=== PATIENT | male | born 1960 | race Caucasian/White ===

== ENCOUNTER → 2017-09-20 | Outpatient (CLI) | payer MEDICAID ==
--- NOTE | 2017-09-23 09:49 | EEG PRO FEE REPORT ---
EEG INTERPRETATION PATIENT NAME: SHAHRZAD JAIN ROOM#: ORDER#: [id number] DATE OF STUDY: 09/20/2017 : 1960 REFERRING MD: DENIS PARIS M.D. DIAGNOSIS: Convulsions REPORT The background activity initially is obscured by a large amount of motion artifact that is in all leads. As the record progresses the patient becomes more drowsy and it gets down to 6-7 Hz theta. Again there is still excessive motion artifact at times. No definite epileptiform activity is noted on the video portion of the tracing and no clear further focal slowing or amplitude asymmetry is seen. IMPRESSION Normal awake and drowsy EEG with excess motion artifact INTERPRETING PHYSICIAN: DARLENE VILLANUEVA M.D. /: MTEFFT TT: [id number] ID: [id number] /: [id number] TD: [id number] JOB: [id number] cc:Guille LEVY M.D. >
== END ==
LOC: NEURO 11:53
PROVIDERS: ATTEND Nurse Practitioner Family
DX: R56.9 Unspecified convulsions (principal)
CPT/HCPCS: 95819

== ENCOUNTER → 2019-04-07 | Outpatient (CLI) | payer MEDICAID ==
--- NOTE | 2019-04-07 13:16 | RADIOLOGY REPORT (SQ) ---
EXAM DESCRIPTION: CT LUNG CANCER SCREENING COMPLETED DATE/TIME: 04/07/2019 12:28 pm REASON FOR STUDY: PERSONAL HX OF NICOTINE DEPENDENCE (Z87.891) Z87.891 PERSONAL HISTORY OF NICOTINE DEPENDENCE Has the patient had a Chest CT scan within the past year? No Was the patient offered tobacco cessation counseling? No Was the patient engaged in shared decision making for this test? Yes Does the patient have signs or symptoms of Lung Cancer? No Is the patient a smoker? No How many pack years? 48 How many years since quitting smoking? Not have focal Patients age: 58 COMPARISON: CT chest 06/30/2013, 08/30/2012, 09/29/2010 TECHNIQUE: Low Dose CT scan performed of the chest without intravenous contrast for purposes of scre ening for lung cancer. Images reviewed with lung, soft tissue and bone windows. Reconstructed coron al and sagittal MPR images reviewed. All images stored on PACS. All CT scanners at this facility use dose modulation, iterative reconstruction, and/or weight based d osing when appropriate to reduce radiation dose to as low as reasonably achievable (ALARA). [facility]: Dose Right [facility]: CareDose [facility]: Dose Right [facility]: Teradose 4D [facility]: [employer] RADIATION DOSE: CT Rad equipment meets quality standard of care and radiation dose reduction techniq ues were employed. CTDIvol: 2.0 mGy. DLP: 79 mGy-cm. mGy. . LIMITATIONS: No technical limitations. FINDINGS: LUNG NODULES: The numerous to count calcified granulomata scattered throughout both lungs . No worrisome lung parenchymal nodules REMAINING LUNGS AND PLEURA: No pleural effusions or calcifications. No pneumothorax. No scarrin g or interstitial changes. HILAR AND MEDIASTINAL STRUCTURES: No identified masses. No abnormal nodes. HEART AND VASCULAR STRUCTURES: No aortic aneurysm. No pericardial effusion. No cardiac devices. CORONARY ARTERY CALCIFICATIONS: No significant calcifications. UPPER ABDOMEN, THYROID, BONES, OTHER SOFT TISSUES: Hiatal hernia. IMPRESSION: BENIGN FINDINGS IN THE LUNGS. NO OTHER CLINICALLY SIGNIFICANT/POTENTIALLY CLINICALLY SIGNIFICANT FINDINGS LUNGRADS: LUNGRADS: 2 BENIGN APPEARANCE OR BEHAVIOR. NODULES WITH A VERY LOW LIKELIHOOD OF BECOMING A CLINICALLY ACTIVE CANCER DUE TO SIZE OR LACK OF GROWTH. MODIFIER: NONE. RECOMMENDATION: Continue annual screening with LDCT in 12 months. COMMENT: CRITERIA: Solid nodule(s): < 6 mm; new < 4 mm. Part solid nodule(s): < 6 mm total diameter on baseline screening. Non solid nodule(s) (GGN): < 20 mm OR ? 20 and unchanged or slowly growing. Category 3 or 4 modules unchanged for ? 3 months. TECHNICAL DOCUMENTATION: JOB ID: [id number] Quality ID # [id number]: Final reports with documentation of one or more dose reduction techniques (e.g., Au tomated exposure control, adjustment of the mA and/or kV according to patient size, use of iterative reconstruction technique) 2010 [facility] Reading location - IP/workstation name: [email or web address]-
== END ==
LOC: RAD 12:07
PROVIDERS: ATTEND Physician Assistant Medical
DX: Z87.891 Personal history of nicotine dependence (principal)
CPT/HCPCS: G0297

== ENCOUNTER 2019-04-21 11:33 | Inpatient (IN) | payer MEDICAID ==
--- NOTE | 2019-04-21 12:10 | ER Document Report ---
ED Medical Screen (RME) - General Chief Complaint: High Blood Pressure Stated Complaint: DIZZINESS,ELEVATED BLOOD PRESSURE Time Seen by Provider: 04/21/19 12:03 Primary Care Provider: RAS MURRY PA-C [Primary Care Provider] - Follow up as needed Mode of Arrival: Ambulatory Information source: Patient Notes: Patient was sent to the emergency room from the dentist office due to elevated blood pressure. He states he has been extremely weak and dizzy. Blood pressure in the emergency room was 169/113. He is not sure the name of the blood pressure medicine he is on but it sounds like Roussell I asked he was on lisinopril and he said he is not sure. He has a history of high blood pressure gastric ulcers the "blown ulcer". Patient is alert oriented respirations regular and unlabored speaking in full sentences. He states he had the ulcer because of drinking too heavy now he only drinks 3 or 4 beer a week. I have greeted and performed a rapid initial assessment of this patient. A comprehensive ED assessment and evaluation of the patient, analysis of test results and completion of medical decision making process will be conducted by an additional ED providers. Dictation of this chart was performed using voice recognition software; therefore, there may be some unintended grammatical errors. TRAVEL OUTSIDE OF THE [place] 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 Denies: Hx Pacemaker - Immunizations Immunizations up to date: Yes Hx Diphtheria, Pertussis, Tetanus Vaccination: Yes Physical Exam - Vital signs Vitals: Temp Pulse Resp BP Pulse Ox 97.5 F 78 18 169/113 H 96 04/21/19 11:43 04/21/19 11:43 04/21/19 11:43 04/21/19 11:43 04/21/19 11:43 Course - Vital Signs Vital signs: Temp Pulse Resp BP Pulse Ox 97.5 F 78 18 174/107 H 96 04/21/19 11:43 04/21/19 11:43 04/21/19 11:43 04/21/19 12:06 04/21/19 11:43 Doctor's Discharge - Discharge Referrals: RAS MURRY PA-C [Primary Care Provider] - Follow up as needed
[2019-04-21 12:34] LABS: APPEARANCE,URINE CLEAR; BILIRUBIN,URINE NEGATIVE (NEGATIVE); COLOR,URINE STRAW; GLUCOSE, URINE NEGATIVE (NEGATIVE); KETONES,URINE NEGATIVE (NEGATIVE); LEUKOCYTE ESTERASE,URINE NEGATIVE (NEGATIVE); NITRITE,URINE NEGATIVE (NEGATIVE); PROTEIN,URINE NEGATIVE (NEGATIVE); URINE SPECIFIC GRAVITY 1.003; UROBILINOGEN,URINE NEGATIVE mg/dL (<2.0)
[2019-04-21 12:38] LABS: ABSOLUTE BASOPHILS # (AUTO) 0.1 10^3/uL (0.0-0.2); ABSOLUTE EOSINOPHILS # (AUTO) 0.1 10^3/uL (0.0-0.6); ABSOLUTE LYMPHOCYTES (AUTO) 0.6 10^3/uL (0.5-4.7); ABSOLUTE MONOCYTES (AUTO) 0.4 10^3/uL (0.1-1.4); ABSOLUTE NEUT (AUTO) 8.5 10^3/uL (1.7-8.2); BASOPHILS % (AUTO) 1.1 % (0-2); EOSINOPHILS % (AUTO) 0.7 % (0-6); HEMATOCRIT 48.1 % (37.9-51.0); HEMOGLOBIN 15.9 g/dL (13.5-17.0); LYMPHOCYTES % (AUTO) 6.6 % (13-45); MEAN CORPUSCULAR HEMOGLOBIN 30.4 pg (27.0-33.4); MEAN CORPUSCULAR HGB CONC 33.1 g/dL (32.0-36.0); MEAN CORPUSCULAR VOLUME 92 fl (80-97); MONOCYTES % (AUTO) 3.9 % (3-13); PLATELET COUNT 468 10^3/uL (150-450); RED BLOOD COUNT 5.24 10^6/uL (4.35-5.55); RED CELL DISTRIBUTION WIDTH 16.5 % (11.5-14.0); SEGMENTED NEUTROPHILS % (AUTO) 87.7 % (42-78); TOTAL CELLS COUNTED % (AUTO) 100 %; WHITE BLOOD COUNT 9.7 10^3/uL (4.0-10.5)
[2019-04-21 13:02] LABS: ALANINE AMINOTRANSFERASE 36 U/L (21-72); ALBUMIN 4.6 g/dL (3.5-5.0); ALKALINE PHOSPHATASE 88 U/L (38-126); ANION GAP 13 (5-19); ASPARTATE AMINO TRANSFERASE 33 U/L (17-59); BILIRUBIN,DIRECT 0.6 mg/dL (0.0-0.4); BLOOD UREA NITROGEN 20 mg/dL (7-20); CALCIUM 9.8 mg/dL (8.4-10.2); CARBON DIOXIDE 22 mmol/L (22-30); CHLORIDE 105 mmol/L (98-107); GLUCOSE 92 mg/dL (75-110); LIPASE 57.7 U/L (23-300); POTASSIUM 5.1 mmol/L (3.6-5.0); TOTAL PROTEIN 7.3 g/dL (6.3-8.2)
[2019-04-21] MEDS ORDERED: AMLODIPINE BESYLATE 5 MG TABLET PO ONE (14:34)
[2019-04-21] MEDS ORDERED: NORMAL SALINE 1000 ML 1,000 ML IV ONE (14:34)
--- NOTE | 2019-04-21 15:41 | RADIOLOGY REPORT (SQ) ---
EXAM DESCRIPTION: CHEST 2 VIEWS COMPLETED DATE/TIME: 04/21/2019 3:23 pm REASON FOR STUDY: 7; cough; h/o COPD COMPARISON: CT chest 06/30/2013 Two-view chest 06/30/2013, 09/03/2012 EXAM PARAMETERS: NUMBER OF VIEWS: two views TECHNIQUE: Digital Frontal and Lateral radiographic views of the chest acquired. RADIATION DOSE: NA LIMITATIONS: none FINDINGS: LUNGS AND PLEURA: Mild pulmonary vascular prominence is present trace fluid in the major a nd minor fissures and Nadira lines at both lung bases from mild fluid overload or interstitial edema. No pneumothorax. MEDIASTINUM AND HILAR STRUCTURES: No masses or contour abnormalities. HEART AND VASCULAR STRUCTURES: No cardiomegaly BONES: No acute findings. HARDWARE: None in the chest. OTHER: No other significant finding. IMPRESSION: Pulmonary vascular congestion with mild interstitial edema and trace pleural fluid. TECHNICAL DOCUMENTATION: JOB ID: [id number] [employer]- All Rights Reserved Reading location - IP/workstation name: [email or web address]
--- NOTE | 2019-04-21 15:46 | ER Document Report ---
ED General - General Chief Complaint: High Blood Pressure Stated Complaint: DIZZINESS,ELEVATED BLOOD PRESSURE Time Seen by Provider: 04/21/19 12:03 Primary Care Provider: RAS MURRY PA-C [ALLIED HEALTH PROFESSIONAL] - Follow up as needed Mode of Arrival: Ambulatory Information source: Patient Notes: 58-year-old male who presents today with a past medical history as recorded who presents today from the dentist office after the patient supposedly had a high blood pressure. Patient states he is on lisinopril for his blood pressure and has been taking it regularly over the last 3 to 4 days. He states he has missed his blood pressure medications intimately before this. He currently denies any headache but states he had a very mild frontal headache 2 days ago. He denies any blurry vision, chest pain, calf pain or leg swelling. He states he which is having a general dental cleaning today and was not having any dental pain. Patient does have a primary care physician. Patient also states is a history of COPD and has had a mild increased cough lately. He denies any chest pain, leg swelling, fevers, or vomiting. No runny nose or congestion. TRAVEL OUTSIDE OF THE [place] IN LAST 30 DAYS: No - Related Data Allergies/Adverse Reactions: metoprolol tartrate [From Lopressor] Adverse Reaction (Verified 04/21/19 11:39) Generalized rash Past Medical History - General Information source: Patient - Social History Smoking Status: Former Smoker Chew tobacco use (# tins/day): No Frequency of alcohol use: Rare Drug Abuse: None Family History: Reviewed & Not Pertinent Patient has suicidal ideation: No Patient has homicidal ideation: No - Past Medical History Cardiac Medical History: Reports: Hx Hypertension Pulmonary Medical History: Denies: Hx Tuberculosis Neurological Medical History: Reports: Hx Seizures - LAST 5 YR AGO Renal/ Medical History: Denies: Hx Peritoneal Dialysis GI Medical History: Reports: Hx Ulcer Musculoskeletal Medical History: 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 Denies: Hx Pacemaker - Immunizations Immunizations up to date: Yes Hx Diphtheria, Pertussis, Tetanus Vaccination: Yes Review of Systems - Review of Systems Constitutional: denies: Fever EENT: denies: Eye discharge, Nose discharge Cardiovascular: denies: Chest pain, Palpitations Respiratory: denies: Short of breath Gastrointestinal: denies: Vomiting Genitourinary: denies: Dysuria Musculoskeletal: denies: Leg swelling Skin: Other - no hives. denies: Rash Neurological/Psychological: Other - no slurred speech -: Yes All other systems reviewed and negative Physical Exam - Vital signs Vitals: Temp Pulse Resp BP Pulse Ox 97.5 F 78 18 169/113 H 96 04/21/19 11:43 04/21/19 11:43 04/21/19 11:43 04/21/19 11:43 04/21/19 11:43 Interpretation: Normal Notes: Reviewed vital signs and nursing note as charted by RN. CONSTITUTIONAL: Alert and oriented and responds appropriately to questions. Well-appearing; well-nourished HEAD: Normocephalic; atraumatic CARD: Regular rate and rhythm; no murmurs; symmetric distal pulses RESP: Normal chest excursion without splinting or tachypnea; breath sounds clear and equal bilaterally; very minimally scant wheezing bilaterally without rhonchi or rales appreciated ABD/GI: Normal bowel sounds; non-distended; soft, non-tender; no palpable organomegaly or masses BACK: The back appears normal and is non-tender to palpation EXT: Normal ROM in all joints; non-tender to palpation; no edema SKIN: No acute lesions noted NEURO: CN 2-12 intact; 5/5 bilateral upper and lower extremity strength with sensation intact to light touch PSYCH: The patient's mood and manner are appropriate. Grooming and personal hygiene are appropriate. Course - Re-evaluation Re-evalutation: Given the history and physical examination, we will order basic labs, creatinine level, provide a one-time dose of Norvasc, and obtain an x-ray of the chest. Given the lack of any chest pain, calf pain or leg swelling, I do believe ACS, PE, dissection to be unlikely. EKG shows a heart rate of 74, left axis deviation, poor R wave progression, inverted T waves in leads V2 and III. Flattening T waves in aVF. I have compared this to an old EKG in August 2014 showing no obvious appreciable change. 04/21/19 15:48 Labs thus far as recorded. X-ray of the chest as recorded. Does appear that the patient has some increased lung markings. We will obtain a BNP and troponin. Patient still denies any chest pain or headache. 04/21/19 16:43 BNP as recorded. Given the combination of an elevated blood pressure with what appears to now be heart failure, patient will be admitted for further evaluation and treatment. 04/21/19 16:53 Repeat blood pressure still 180/110. Patient denies any symptoms at this time. However, given the combination of elevated blood pressure with new onset co ngestive heart failure, I am concerned about hypertensive emergency. I will provide an IV bolus dose of hydralazine. I have discussed the case with the hospitalist who will admit the patient for further evaluation. - Vital Signs Vital signs: Temp Pulse Resp BP Pulse Ox 97.5 F 78 16 172/105 H 98 04/21/19 11:43 04/21/19 11:43 04/21/19 13:31 04/21/19 13:31 04/21/19 13:31 - Laboratory Result Diagrams: 04/21/19 12:25 04/21/19 12:25 Laboratory results interpreted by me: 04/21/19 04/21/19 04/21/19 12:25 12:25 12:25 RDW 16.5 H Plt Count 468 H Seg Neutrophils % 87.7 H Lymphocytes % 6.6 L Absolute Neutrophils 8.5 H Potassium 5.1 H Creatinine 1.53 H Est GFR ( Amer) 57 L Est GFR (Non-Af Amer) 47 L Direct Bilirubin 0.6 H NT-Pro-B Natriuret Pep 4590 H Discharge - Discharge Clinical Impression: Hypertensive emergency without congestive heart failure Condition: Fair Disposition: ADMITTED INPATIENT Admitting Provider: Dana (Hospitalist) Unit Admitted: Telemetry Referrals: RAS MURRY PA-C [ALLIED HEALTH PROFESSIONAL] - Follow up as needed
[2019-04-21 16:39] LABS: NT PRO BNP 4590 pg/mL (5-900)
[2019-04-21 16:42] LABS: TROPONIN I < 0.012 ng/mL
[2019-04-21] MEDS ORDERED: FUROSEMIDE INJ/PF 40 MG/4 ML SDV IV ONE (16:47)
[2019-04-21] MEDS ORDERED: HYDRALAZINE HCL INJ/PF 20 MG/1 ML SDV IV ONE (16:53)
[2019-04-21] MEDS ORDERED: IPRATROPIUM/ALBUTEROL 0.5-2.5 MG/3 ML AMPUL NEB PRN (17:20)
[2019-04-21] MEDS ORDERED: ACETAMINOPHEN 325 MG TABLET PO PRN (17:20)
[2019-04-21] MEDS ORDERED: ONDANSETRON HCL INJ/PF 4 MG/2 ML SDV IV PRN (17:20)
[2019-04-21] MEDS ORDERED: HYDRALAZINE HCL INJ/PF 20 MG/1 ML SDV IV PRN (17:24)
[2019-04-21] MEDS ORDERED: OXYCODONE-ACETAMINOPHEN 5-325 MG TABLET PO PRN (17:27)
--- NOTE | 2019-04-21 18:00 | PDOC H&P ---
History of Present Illness Admission Date/PCP: 04/21/19 17:10 Patient complains of: Shortness of breath associated with dizziness. History of Present Illness: SHAHRZAD JAIN is a 58 year old male with history of COPD, hypertension, osteoarthritis, left hip replacement came with complaints of high blood pressure associated with dizziness and shortness of breath. He went to the dentist office found to be in shortness of breath and blood pressure was elevated he complained to them that he is in shortness of breath advised to come to the ER for further evaluation. The work-up in the emergency room shows cardiomegaly and pulmonary vascular congestion on chest x-ray with elevated BNP of 4490. Blood pressure was elevated also systolic blood pressure 72 and diastolic blood pressure is 105. In the ER he was given Lasix 40 mg IV 1 dose hydralazine 10 mg IV 1 push. Medical consult was called for admission for further management. On examination patient is in mild shortness of breath and alert and awake communicating well. He told me he is compliant with his medications I quit smoking 4 years ago having the shortness of breath associated with headaches mild cough with dry cough denies any other symptoms. denies any chest pains. Past Medical History Cardiac Medical History: Reports: Hypertension Pulmonary Medical History: Denies: Tuberculosis Neurological Medical History: Reports: Seizures - LAST 5 YR AGO Past Surgical History Past Surgical History: Reports: Orthopedic Surgery - hip, arm Denies: Pacemaker Social History Information Source: Patient Smoking Status: Former Smoker Frequency of Alcohol Use: Rare Hx Recreational Drug Use: No Hx Prescription Drug Abuse: No - Advance Directive Resuscitation Status: Full Code Family History Family History: Reviewed & Not Pertinent Parental Family History Reviewed: Yes - Hypertension. Children Family History Reviewed: Yes Sibling(s) Family History Reviewed.: Yes Medication/Allergy Allergies/Adverse Reactions: metoprolol tartrate [From Lopressor] Adverse Reaction (Verified 04/21/19 11:39) Generalized rash Review of Systems Constitutional: PRESENT: headache(s). ABSENT: fever(s), weight gain, weight loss Eyes: ABSENT: visual disturbances Ears: ABSENT: hearing changes Nose, Mouth, and Throat: ABSENT: sore throat Cardiovascular: PRESENT: dyspnea on exertion Respiratory: PRESENT: cough, dyspnea Gastrointestinal: PRESENT: nausea Neurological: PRESENT: dizziness. ABSENT: abnormal gait, abnormal speech, confusion, focal weakness, syncope Psychiatric: ABSENT: anxiety, depression, homidical ideation, suicidal ideation Hematologic/Lymphatic: ABSENT: easy bleeding, easy bruising Physical Exam Vital Signs: Temp Pulse Resp BP Pulse Ox 97.5 F 78 16 172/105 H 98 04/21/19 11:43 04/21/19 11:43 04/21/19 13:31 04/21/19 13:31 04/21/19 13:31 Intake & Output 04/20/19 04/21/19 04/22/19 06:59 06:59 06:59 Weight 54.6 kg General appearance: PRESENT: no acute distress, cooperative Head exam: PRESENT: atraumatic Eye exam: PRESENT: PERRLA Mouth exam: PRESENT: moist, tongue midline Teeth exam: PRESENT: poor dentation Neck exam: ABSENT: carotid bruit, JVD, lymphadenopathy, thyromegaly Respiratory exam: PRESENT: crackles, decreased breath sounds, rhonchi Cardiovascular exam: PRESENT: RRR. ABSENT: diastolic murmur, rubs, systolic murmur GI/Abdominal exam: PRESENT: normal bowel sounds, soft. ABSENT: distended, guarding, mass, organolmegaly, rebound, tenderness Rectal exam: PRESENT: deferred Extremities exam: PRESENT: full ROM. ABSENT: calf tenderness, clubbing, pedal edema Neurological exam: PRESENT: alert, awake, oriented to person, oriented to place, oriented to time, oriented to situation, CN II-XII grossly intact. ABSENT: motor sensory deficit Psychiatric exam: PRESENT: appropriate affect, normal mood. ABSENT: homicidal ideation, suicidal ideation Results Laboratory Results: 04/21/19 12:25 04/21/19 12:25 04/21/19 04/21/19 04/21/19 12:16 12:25 12:25 WBC 9.7 RBC 5.24 Hgb 15.9 Hct 48.1 MCV 92 MCH 30.4 MCHC 33.1 RDW 16.5 H Plt Count 468 H Seg Neutrophils % 87.7 H Lymphocytes % 6.6 L Monocytes % 3.9 Eosinophils % 0.7 Basophils % 1.1 Absolute Neutrophils 8.5 H Absolute Lymphocytes 0.6 Absolute Monocytes 0.4 Absolute Eosinophils 0.1 Absolute Basophils 0.1 Sodium 140.0 Potassium 5.1 H Chloride 105 Carbon Dioxide 22 Anion Gap 13 BUN 20 Creatinine 1.53 H Est GFR ( Amer) 57 L Est GFR (Non-Af Amer) 47 L Glucose 92 Calcium 9.8 Total Bilirubin 1.0 AST 33 ALT 36 Alkaline Phosphatase 88 Total Protein 7.3 Albumin 4.6 Lipase 57.7 Urine Color STRAW Urine Appearance CLEAR Urine pH 7.0 Ur Specific [place] 1.003 Urine Protein NEGATIVE Urine Glucose (UA) NEGATIVE Urine Ketones NEGATIVE Urine Blood NEGATIVE Urine Nitrite NEGATIVE Ur Leukocyte Esterase NEGATIVE Urine WBC (Auto) 1 04/21/19 12:25 Troponin I < 0.012 NT-Pro-B Natriuret Pep 4590 H Impressions: Chest X-Ray 04/21/19 14:35 IMPRESSION: Pulmonary vascular congestion with mild interstitial edema and trace pleural fluid. Assessment and Plan - Diagnosis (1) Hypertensive emergency without congestive heart failure Is this a current diagnosis for this admission?: Yes Plan: 04/21/[id number]-hgvk-old male came in with blood pressures of 172/105 and the chest x-ray shows cardiomegaly with pulmonary vascular congestion he is complaining of shortness of breath is going to be admitted as inpatient started on lisinopril 10 mg p.o. daily, hydralazine 10 mg IV every 4 as needed for systolic blood pressure more than 150. GI prophylaxis DVT prophylaxis initiated. Started on Lasix 40 mg IV daily. Start on aspirin 81 mg p.o. daily and atorvastatin 10 mg p.o. nightly. Placed on oxygen 2 L nasal cannula to keep the pulse ox more than 90%. Cardiogram was requested. Cardiac enzymes series is requested. to Check the lipid panel tomorrow. TSH will is requested in the morning. Started on low-sodium diet. (2) HTN (hypertension) Is this a current diagnosis for this admission?: Yes Plan: 04/21/2019-patient came with blood pressure of 172/105 started on lisinopril 10 mg p.o. daily, Lasix 40 mg IV daily, IV hydralazine 10 mg every 4 PRN for systolic blood pressure more than 150. Started on low-sodium diet. to Check blood pressures every shift. (3) COPD (chronic obstructive pulmonary disease) Is this a current diagnosis for this admission?: No Plan: 04/21/2019-patient came in with history of COPD in mild shortness of breath on examination bilateral entry was decreased few crackles and crepitations at the bases. No wheezing. Placed on oxygen 2 L nasal cannula. Started on albuterol nebulizations every 4 as needed. (4) Seizure disorder Is this a current diagnosis for this admission?: No Plan: 04/21/2019-patient is nonspecific about seizure disorder he is not sure about his medications. To start him on Ativan 1 mg IV every 2 as needed for possible seizures. We will try to get in touch with the pharmacy and the primary care physician to get more information. - Time Time Spent with patient: 25-34 minutes Medications reviewed and adjusted accordingly: Yes Anticipated discharge: Home
[2019-04-21] MEDS ORDERED: LORAZEPAM INJ 2 MG/1 ML VIAL IV PRN (18:01)
--- NOTE | 2019-04-21 18:37 | EKG REPORT ---
SEVERITY:- ABNORMAL ECG - SINUS RHYTHM PROBABLE LEFT ATRIAL ABNORMALITY LEFT AXIS DEVIATION NONSPECIFIC T ABNORMALITIES, INFERIOR LEADS BORDERLINE PROLONGED QT INTERVAL : Confirmed by: Gianna Michaud MD 21-Apr-2019 18:36:30
[2019-04-21] MEDS: ASPIRIN 81 MG TABLET, CHEWABLE PO SCH (19:05)
[2019-04-21] MEDS: DOCUSATE SODIUM 100 MG CAPSULE PO SCH (19:05)
[2019-04-21] MEDS: LISINOPRIL 10 MG TABLET PO SCH (19:05)
--- NOTE | 2019-04-21 19:22 | RADIOLOGY REPORT (SQ) ---
EXAM DESCRIPTION: CT CHEST WITHOUT COMPLETED DATE/TIME: 04/21/2019 6:31 pm REASON FOR STUDY: chf COMPARISON: 06/30/2013 TECHNIQUE: CT scan performed of the chest without intravenous contrast. Images reviewed with lung, soft tissue and bone windows. Reconstructed coronal and sagittal MPR images reviewed. All images st ored on PACS. All CT scanners at this facility use dose modulation, iterative reconstruction, and/or weight based d osing when appropriate to reduce radiation dose to as low as reasonably achievable (ALARA). [facility]: Dose Right [facility]: CareDose [facility]: Dose Right [facility]: Teradose 4D [facility]: [employer] RADIATION DOSE: CT Rad equipment meets quality standard of care and radiation dose reduction techniq ues were employed. CTDIvol: 5.3 mGy. DLP: 220 mGy-cm. mGy. LIMITATIONS: No technical limitations. FINDINGS: LUNGS AND PLEURA: There is mild pulmonary vascular prominence. There is no pulmonary lucina a. There is no focal infiltrate or pleural effusion. HILAR AND MEDIASTINAL STRUCTURES: There is mild mediastinal and right hilar adenopathy. HEART AND VASCULAR STRUCTURES: No aneurysm. No pericardial effusion. UPPER ABDOMEN: No significant findings. Limited exam. THYROID AND OTHER SOFT TISSUES: No masses. No adenopathy. BONES: No significant finding. HARDWARE: None in the chest. OTHER: No other significant findings. IMPRESSION: Mild mediastinal and hilar adenopathy. Mild pulmonary vascular prominence. No pulmonar y edema. TECHNICAL DOCUMENTATION: JOB ID: [id number] Quality ID # [id number]: Final reports with documentation of one or more dose reduction techniques (e.g., Au tomated exposure control, adjustment of the mA and/or kV according to patient size, use of iterative reconstruction technique) 2010 [employer]- All Rights Reserved Reading location - IP/workstation name: [email or web address]
[2019-04-21 19:29] LABS: CREATINE KINASE MB 1.75 ng/mL (<4.55)
[2019-04-21 19:35] LABS: TROPONIN I < 0.012 ng/mL
--- NOTE | 2019-04-21 20:40 | XCELERA REPORT ---
[address] [address] Transthoracic Echocardiogram Report Name: SHAHRZAD JAIN Age: 58 yrs Gender: Male : 1960 Patient Status: Inpatient Patient Location: [place] [address]^A Study Date: 04/21/2019 05:47 PM Height: 64 in Weight: 120 lb BSA: 1.6 m2 Procedure: A two-dimensional transthoracic echocardiogram with color flow and Doppler was performed. Study Quality: Technically suboptimal. Reason For Study: CHF /Elevated BNP History: CHF /Elevated BNP. Ordering Physician: NILAY GERMAN Performed By: Jodie Barros Interpretation Summary No and probably no AR.Trace MR , and no MVP r MS.Trace TR.Mid pulmonary hypertension.RVSP is 35 mm of Hg , with RA mean of 10. The left ventricle is grossly normal size. Probably no LVH.Poor endocardial visualisation.Probably no regional wall motion abnormality ,but cannot be sure.Probably normal LVEF. There is no thrombus. The right ventricle is not well visualized secondary to technical limitations The left atrial size is normal. No and probably no AR.Trace MR , and no MVP r MS.Trace TR.Mid pulmonary hypertension.RVSP is 35 mm of Hg , with RA mean of 10. There is no pericardial effusion. MMode/2D Measurements & Calculations RVDd: 2.4 cm LVIDd: 3.6 cm FS: 26.6 % Ao root diam: 2.3 cm IVSd: 0.72 cm LVIDs: 2.7 cm EDV(Teich): 55.6 ml Ao root area: 4.1 cm2 LVPWd: 0.76 cm ESV(Teich): 26.2 ml LA dimension: 2.7 cm EF(Teich): 52.9 % Doppler Measurements & Calculations MV P1/2t max julián: Ao V2 max: LV V1 max PG: PA V2 max: 238.0 cm/sec 131.2 cm/sec 3.7 mmHg 107.5 cm/sec MV P1/2t: 694.7 msec Ao max P.9 mmHg LV V1 max: PA max PG: MVA(P1/2t): 0.32 cm2 95.6 cm/sec 4.6 mmHg MV dec slope: 100.4 cm/sec2 TR max julián: MV P1/2t-pr_phl: 256.5 cm/sec 694.7 msec TR max P.3 mmHg Left Ventricle The left ventricle is grossly normal size. Probably no LVH.Poor endocardial visualisation.Probably no regional wall motion abnormality ,but cannot be sure.Probably normal LVEF. Doppler measurements suggest impaired left ventricular relaxation, which is associated with grade I/IV or mild diastolic dysfunction. There is no thrombus. Right Ventricle The right ventricle is not well visualized secondary to technical limitations. Atria Right atrium not well visualized secondary to technical limitations. The left atrial size is normal. Effusions There is no pericardial effusion. : NILAY GERMAN > Gianna Michaud
[2019-04-21] MEDS: FAMOTIDINE 20 MG TABLET PO SCH (21:08)
[2019-04-21] MEDS ORDERED: ATORVASTATIN CALCIUM 10 MG TABLET PO SCH (22:00)
[2019-04-22 01:40] LABS: CREATINE KINASE MB 1.55 ng/mL (<4.55)
[2019-04-22 01:47] LABS: TROPONIN I < 0.012 ng/mL
[2019-04-22 07:29] LABS: ABSOLUTE BASOPHILS # (AUTO) 0.1 10^3/uL (0.0-0.2); ABSOLUTE EOSINOPHILS # (AUTO) 0.2 10^3/uL (0.0-0.6); ABSOLUTE LYMPHOCYTES (AUTO) 0.8 10^3/uL (0.5-4.7); ABSOLUTE MONOCYTES (AUTO) 0.4 10^3/uL (0.1-1.4); ABSOLUTE NEUT (AUTO) 7.6 10^3/uL (1.7-8.2); BASOPHILS % (AUTO) 1.1 % (0-2); EOSINOPHILS % (AUTO) 2.3 % (0-6); HEMATOCRIT 49.9 % (37.9-51.0); HEMOGLOBIN 16.8 g/dL (13.5-17.0); LYMPHOCYTES % (AUTO) 8.5 % (13-45); MEAN CORPUSCULAR HEMOGLOBIN 30.7 pg (27.0-33.4); MEAN CORPUSCULAR HGB CONC 33.7 g/dL (32.0-36.0); MEAN CORPUSCULAR VOLUME 91 fl (80-97); MONOCYTES % (AUTO) 4.4 % (3-13); PLATELET COUNT 475 10^3/uL (150-450); RED BLOOD COUNT 5.48 10^6/uL (4.35-5.55); RED CELL DISTRIBUTION WIDTH 16.2 % (11.5-14.0); SEGMENTED NEUTROPHILS % (AUTO) 83.7 % (42-78); TOTAL CELLS COUNTED % (AUTO) 100 %
[2019-04-22 07:30] LABS: INTERNATIONAL RATION (INR) 1.06; PROTHROMBIN TIME 14.4 SEC (11.4-15.4)
[2019-04-22] MEDS ORDERED: ALBUTEROL SULFATE HFA (90 MCG/PUFF) 200 PUFF/8.5 GM MDI IH PRN (08:04)
[2019-04-22 08:31] LABS: ALANINE AMINOTRANSFERASE 37 U/L (21-72); ALBUMIN 4.8 g/dL (3.5-5.0); ANION GAP 14 (5-19); ASPARTATE AMINO TRANSFERASE 27 U/L (17-59); BILIRUBIN,DIRECT 0.4 mg/dL (0.0-0.4); BILIRUBIN,TOTAL 1.2 mg/dL (0.2-1.3); BLOOD UREA NITROGEN 19 mg/dL (7-20); CALCIUM 10.3 mg/dL (8.4-10.2); CARBON DIOXIDE 20 mmol/L (22-30); CHLORIDE 104 mmol/L (98-107); CHOLESTEROL 220.76 mg/dL (0-200); CREATINE KINASE 46 U/L (55-170); GLUCOSE 174 mg/dL (75-110); NEONATAL BILIRUBIN RESULT 0.8 mg/dL (0.1-1.1); POTASSIUM 4.3 mmol/L (3.6-5.0); SODIUM 138.4 mmol/L (137-145); TOTAL PROTEIN 7.5 g/dL (6.3-8.2); TRIGLYCERIDES 67 mg/dL (<150)
[2019-04-22 08:32] LABS: ALKALINE PHOSPHATASE 80 U/L (38-126)
[2019-04-22 08:42] LABS: DIRECT LDL 134 mg/dL (<100)
[2019-04-22 08:49] LABS: CREATINE KINASE MB 1.38 ng/mL (<4.55); NT PRO BNP 3240 pg/mL (5-900)
[2019-04-22 08:50] LABS: TROPONIN I < 0.012 ng/mL
[2019-04-22] MEDS: FAMOTIDINE 20 MG TABLET PO SCH (09:15)
[2019-04-22] MEDS: ASPIRIN 81 MG TABLET, CHEWABLE PO SCH (09:15)
[2019-04-22] MEDS: DOCUSATE SODIUM 100 MG CAPSULE PO SCH (09:15)
[2019-04-22] MEDS: LISINOPRIL 10 MG TABLET PO SCH (09:16)
[2019-04-22] MEDS ORDERED: ENOXAPARIN SODIUM INJ 40 MG/0.4 ML DISP.SYRIN SUBCUT SCH (10:00)
[2019-04-22] MEDS ORDERED: FUROSEMIDE INJ/PF 40 MG/4 ML SDV IV SCH (10:00)
[2019-04-22 10:37] VITALS: BP 147/89
--- NOTE | 2019-04-22 13:06 | PDOC DISCHARGE SUMMARY ---
General - Admit/Disc Date/PCP Admission Date/Primary Care Provider: 04/21/19 17:10 Discharge Date: 04/22/19 - Discharge Diagnosis (1) Hypertensive emergency without congestive heart failure Is this a current diagnosis for this admission?: Yes Summary: 58-year-old male came in with blood pressures of 172/105 and the chest x-ray shows cardiomegaly with pulmonary vascular congestion he is complaining of shortness of breath is going to be admitted as inpatient started on lisinopril 10 mg p.o. daily, hydralazine 10 mg IV every 4 as needed for systolic blood pressure more than 150. GI prophylaxis DVT prophylaxis initiated. Started on Lasix 40 mg IV daily. Start on aspirin 81 mg p.o. daily and atorvastatin 10 mg p.o. nightly. Placed on oxygen 2 L nasal cannula to keep the pulse ox more than 90%. Cardiogram was requested. Cardiac enzymes series is requested. to Check the lipid panel tomorrow. TSH will is requested in the morning. Started on low-sodium diet. 04/[id number]-old male admitted with hypertensive urgency with the shortness of breath headache. Initial examination and review of the chest x-ray indicates cardiomegaly and pulmonary vascular congestion CT chest was done and no pulmonary vascular congestion was noticed except for hilar lymphadenopathy. Patient latest blood pressure this morning is 108/75. During the hospital stay he was started on Lasix 40 mg IV daily and lisinopril 10 mg daily. Patient was given a prescription for Lasix 20 mg p.o. daily and advised to continue lisinopril 40 mg daily at home. (2) HTN (hypertension) Is this a current diagnosis for this admission?: Yes Summary: 04/22/2019-patient admitted with uncontrolled hypertension with urgency started o n Lasix 40 mg IV daily and given lisinopril 10 mg p.o. daily blood pressure is well controlled now patient is going home on Lasix 20 mg p.o. daily and home med lisinopril 40 mg daily. (3) COPD (chronic obstructive pulmonary disease) Is this a current diagnosis for this admission?: No Summary: 04/21/2019-patient came in with history of COPD in mild shortness of breath on examination bilateral entry was decreased few crackles and crepitations at the bases. No wheezing. Placed on oxygen 2 L nasal cannula. Started on albuterol nebulizations every 4 as needed. 04/22/2019-patient has history of COPD secondary to chronic smoking. Acute smoking for years ago. Pulse ox today is 98% on room air. Patient did not require home oxygen. (4) Seizure disorder Is this a current diagnosis for this admission?: No Summary: patient is nonspecific about seizure disorder he is not sure about his medications. To start him on Ativan 1 mg IV every 2 as needed for possible seizures. We will try to get in touch with the pharmacy and the primary care physician to get more information. 2018-given history of a seizure disorder and last seizure was early years ago . Patient is not on any antiseizure medication during the hospital stay. Patient is advised to follow-up with primary care physician in 1 week. If the patient's feels like seizures are coming back I strongly advised him to call the EMS to come to the emergency room QUITA. - Additional Information Resuscitation Status: Full Code Discharge Diet: Cardiac Discharge Activity: Activity As Tolerated Prescriptions: Furosemide [Lasix] 20 mg PO DAILY #30 tablet Home Medications: Albuterol Sulfate [Proair HFA Inhalation Aerosol 8.5 gm MDI] 2 puff IH Q4HP PRN 04/21/19 Lisinopril [Prinivil 40 mg Tablet] 40 mg PO DAILY 04/21/19 Meloxicam [Mobic] 15 mg PO DAILY 04/21/19 Furosemide [Lasix] 20 mg PO DAILY #30 tablet 04/22/19 History of Present Illness History of Present Illness: SHAHRZAD JAIN is a 58 year old male with history of COPD, hypertension, osteoarthritis, left hip replacement came with complaints of high blood pressure associated with dizziness and shortness of breath. He went to the dentist off [place] found to be in shortness of breath and blood pressure was elevated he complained to them that he is in shortness of breath advised to come to the ER for further evaluation. The work-up in the emergency room shows cardiomegaly and pulmonary vascular congestion on chest x-ray with elevated BNP of 4490. Blood pressure was elevated also systolic blood pressure 72 and diastolic blood pressure is 105. In the ER he was given Lasix 40 mg IV 1 dose hydralazine 10 mg IV 1 push. Medical consult was called for admission for further management. On examination patient is in mild shortness of breath and alert and awake communicating well. 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 denies any chest pains. Hospital Course Hospital Course: 04/22/2019-patient came in with shortness of breath headaches and very high blood pressures no acute events during the hospital stay. He was started on lisinopril 10 mg daily Lasix 40 mg p.o. daily blood pressure was improved to 108/45. Asymptomatic. Pulse ox is 98% on room air. Patient is going home on lisinopril 40 mg p.o. daily which is his home medication and a prescription for Lasix 40 mg p.o. daily was given. Physical Exam Vital Signs: Temp Pulse Resp BP Pulse Ox 97.7 F 83 14 147/89 H 95 04/22/19 10:34 04/22/19 10:34 04/22/19 10:34 04/22/19 10:34 04/22/19 10:34 Intake & Output 04/21/19 04/22/19 04/23/19 06:59 06:59 06:59 Intake Total 360 Balance 360 Weight 52.9 kg General appearance: PRESENT: no acute distress Head exam: PRESENT: atraumatic Eye exam: PRESENT: PERRLA Mouth exam: PRESENT: moist, tongue midline Neck exam: ABSENT: carotid bruit, JVD, lymphadenopathy, thyromegaly Respiratory exam: PRESENT: decreased breath sounds Cardiovascular exam: PRESENT: RRR. ABSENT: diastolic murmur, rubs, systolic murmur GI/Abdominal exam: PRESENT: normal bowel sounds, soft. ABSENT: distended, guarding, mass, organolmegaly, rebound, tenderness Rectal exam: PRESENT: deferred Extremities exam: PRESENT: full ROM. ABSENT: calf tenderness, clubbing, pedal edema Neurological exam: PRESENT: alert, awake, oriented to person, oriented to place, oriented to time, oriented to situation, CN II-XII grossly intact. ABSENT: motor sensory deficit Psychiatric exam: PRESENT: appropriate affect, normal mood. ABSENT: homicidal ideation, suicidal ideation Results Laboratory Results: 04/22/19 07:12 04/22/19 08:04 04/21/19 04/22/19 04/22/19 12:25 07:12 07:12 WBC 9.0 RBC 5.48 Hgb 16.8 Hct 49.9 MCV 91 MCH 30.7 MCHC 33.7 RDW 16.2 H Plt Count 475 H Seg Neutrophils % 83.7 H Lymphocytes % 8.5 L Monocytes % 4.4 Eosinophils % 2.3 Basophils % 1.1 Absolute Neutrophils 7.6 Absolute Lymphocytes 0.8 Absolute Monocytes 0.4 Absolute Eosinophils 0.2 Absolute Basophils 0.1 Sodium 140.0 Cancelled Potassium 5.1 H Cancelled Chloride 105 Cancelled Carbon Dioxide 22 Cancelled Anion Gap 13 Cancelled BUN 20 Cancelled Creatinine 1.53 H Cancelled Est GFR ( Amer) 57 L Cancelled Est GFR (Non-Af Amer) 47 L Cancelled Glucose 92 Cancelled Calcium 9.8 Cancelled Magnesium Cancelled Total Bilirubin 1.0 Cancelled AST 33 Cancelled ALT 36 Cancelled Alkaline Phosphatase 88 Cancelled Total Protein 7.3 Cancelled Albumin 4.6 Cancelled Triglycerides Cancelled Cholesterol Cancelled LDL Cholesterol Direct Cancelled VLDL Cholesterol Cancelled HDL Cholesterol Cancelled Lipase 57.7 TSH 04/22/19 04/22/19 04/22/19 07:12 08:04 08:04 WBC RBC Hgb Hct MCV MCH MCHC RDW Plt Count Seg Neutrophils % Lymphocytes % Monocytes % Eosinophils % Basophils % Absolute Neutrophils Absolute Lymphocytes Absolute Monocytes Absolute Eosinophils Absolute Basophils Sodium 138.4 Potassium 4.3 Chloride 104 Carbon Dioxide 20 L Anion Gap 14 BUN 19 Creatinine 1.43 H Est GFR ( Amer) > 60 Est GFR (Non-Af Amer) 51 L Glucose 174 H Calcium 10.3 H Magnesium 1.9 Total Bilirubin 1.2 AST 27 ALT 37 Alkaline Phosphatase 80 Total Protein 7.5 Albumin 4.8 Triglycerides 67 Cholesterol 220.76 H LDL Cholesterol Direct 134 H VLDL Cholesterol 13.0 HDL Cholesterol 84 Lipase TSH Cancelled 3.00 04/21/19 04/21/19 04/21/19 12:25 18:41 18:41 Creatine Kinase 53 L CK-MB (CK-2) 1.75 Troponin I < 0.012 < 0.012 NT-Pro-B Natriuret Pep 4590 H 04/22/19 04/22/19 04/22/19 00:30 00:30 07:12 Creatine Kinase 65 Cancelled CK-MB (CK-2) 1.55 Troponin I < 0.012 NT-Pro-B Natriuret Pep 04/22/19 04/22/19 04/22/19 07:12 08:04 08:04 Creatine Kinase 46 L CK-MB (CK-2) Cancelled 1.38 Troponin I Cancelled < 0.012 NT-Pro-B Natriuret Pep Cancelled 3240 H Impressions: Chest CT 04/21/19 00:00 IMPRESSION: Mild mediastinal and hilar adenopathy. Mild pulmonary vascular prominence. No pulmonary edema. Chest X-Ray 04/21/19 14:35 IMPRESSION: Pulmonary vascular congestion with mild interstitial edema and trace pleural fluid. Qualifiers - * PATIENT BEING DISCHARGED WITH ANY OF THE FOLLOWING DIAGNOSIS: No VTE patient discharged on overlapping Therapy?: Yes Acute Heart Failure Is this a Heart Failure Patient?: No Plan Time Spent: Greater than 30 Minutes - Patient is going home today.
[2019-04-23] MEDS ORDERED: FUROSEMIDE 20 MG TABLET PO SCH (10:00)
== END 2019-04-22 10:50 | disposition home or self-care (01) | DRG 305 ==
LOC: ER 11:33 → EH 17:10 → 4N 20:15
PROVIDERS: ADMIT Internal Medicine; ATTEND Internal Medicine
DX: I16.1 Hypertensive emergency (principal); I11.9 Hypertensive heart disease without heart failure; G40.909 Epilepsy, unspecified, not intractable, without status epilepticus; J44.9 Chronic obstructive pulmonary disease, unspecified; M19.90 Unspecified osteoarthritis, unspecified site; Z96.642 Presence of left artificial hip joint; Z87.891 Personal history of nicotine dependence; Z82.49 Family history of ischemic heart disease and other diseases of the circulatory system; Z88.8 Allergy status to other drugs, medicaments and biological substances
CPT/HCPCS: 36415; 71046; 71250; 80053; 80061; 81001; 82550; 82553; 83036; 83690; 83735; 83880; 84443; 84484; 85025; 85610; 93005; 93010; 93306; 96374; 96375; 99285; J0360; J1650; J1940; J2060; J3490; J7030

== ENCOUNTER 2019-05-19 16:06 | Emergency (ER) | payer MEDICAID ==
--- NOTE | 2019-05-19 16:17 | ER Document Report ---
ED Medical Screen (RME) - General Chief Complaint: Abdominal Pain Stated Complaint: ABDOMINAL PAIN Time Seen by Provider: 05/19/19 16:13 Mode of Arrival: Ambulatory Information source: Patient Notes: Patient presents complaining of abdominal pain for the past 5 days. Patient reports nausea vomiting diarrhea. Patient is vomited twice today. Patient also complains of black stools for the past few days. Patient denies any fever. Patient states that whenever he urinates he has had a change in his urinary flow. Patient denies taking any anticoagulants. I have greeted and performed a rapid initial assessment of this patient. A comprehensive ED assessment and evaluation of the patient, analysis of test results and completion of the medical decision making process will be conducted by additional ED providers. TRAVEL OUTSIDE OF THE [place] 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 Denies: Hx Pacemaker - Immunizations Immunizations up to date: Yes Hx Diphtheria, Pertussis, Tetanus Vaccination: Yes Physical Exam - Vital signs Vitals: Temp Pulse Resp BP Pulse Ox 97.9 F 90 18 129/89 H 96 05/19/19 16:08 05/19/19 16:08 05/19/19 16:08 05/19/19 16:08 05/19/19 16:08 - Abdominal Tenderness: Tender - Periumbilical Course - Vital Signs Vital signs: Temp Pulse Resp BP Pulse Ox 97.9 F 90 18 129/89 H 96 05/19/19 16:08 05/19/19 16:08 05/19/19 16:08 05/19/19 16:08 05/19/19 16:08
[2019-05-19 17:14] LABS: ABSOLUTE BASOPHILS # (AUTO) 0.2 10^3/uL (0.0-0.2); ABSOLUTE EOSINOPHILS # (AUTO) 0.2 10^3/uL (0.0-0.6); ABSOLUTE LYMPHOCYTES (AUTO) 1.2 10^3/uL (0.5-4.7); ABSOLUTE MONOCYTES (AUTO) 0.9 10^3/uL (0.1-1.4); ABSOLUTE NEUT (AUTO) 13.1 10^3/uL (1.7-8.2); BASOPHILS % (AUTO) 1.3 % (0-2); HEMATOCRIT 45.8 % (37.9-51.0); HEMOGLOBIN 15.6 g/dL (13.5-17.0); MEAN CORPUSCULAR HEMOGLOBIN 30.4 pg (27.0-33.4); MEAN CORPUSCULAR HGB CONC 33.9 g/dL (32.0-36.0); MEAN CORPUSCULAR VOLUME 90 fl (80-97); MONOCYTES % (AUTO) 5.7 % (3-13); PLATELET COUNT 646 10^3/uL (150-450); RED BLOOD COUNT 5.12 10^6/uL (4.35-5.55); RED CELL DISTRIBUTION WIDTH 15.6 % (11.5-14.0); TOTAL CELLS COUNTED % (AUTO) 100 %; WHITE BLOOD COUNT 15.6 10^3/uL (4.0-10.5)
[2019-05-19 17:18] LABS: INTERNATIONAL RATION (INR) 1.06; PROTHROMBIN TIME 13.9 SEC (11.4-15.4)
[2019-05-19 17:19] LABS: PARTIAL THROMBOPLASTIN TIME 32.7 SEC (23.5-35.8)
[2019-05-19 17:29] LABS: ALANINE AMINOTRANSFERASE 27 U/L (21-72); ALBUMIN 4.4 g/dL (3.5-5.0); ALKALINE PHOSPHATASE 95 U/L (38-126); ANION GAP 11 (5-19); ASPARTATE AMINO TRANSFERASE 25 U/L (17-59); BILIRUBIN,DIRECT 0.4 mg/dL (0.0-0.4); BILIRUBIN,TOTAL 0.5 mg/dL (0.2-1.3); BLOOD UREA NITROGEN 26 mg/dL (7-20); CARBON DIOXIDE 23 mmol/L (22-30); CHLORIDE 103 mmol/L (98-107); GLUCOSE 104 mg/dL (75-110); LIPASE 133.9 U/L (23-300); SODIUM 137.1 mmol/L (137-145); TOTAL PROTEIN 7.8 g/dL (6.3-8.2)
[2019-05-19 17:30] LABS: APPEARANCE,URINE CLEAR; BILIRUBIN,URINE NEGATIVE (NEGATIVE); COLOR,URINE YELLOW; GLUCOSE, URINE NEGATIVE (NEGATIVE); KETONES,URINE NEGATIVE (NEGATIVE); LEUKOCYTE ESTERASE,URINE NEGATIVE (NEGATIVE); NITRITE,URINE NEGATIVE (NEGATIVE); PROTEIN,URINE NEGATIVE (NEGATIVE); URINE SPECIFIC GRAVITY 1.011; UROBILINOGEN,URINE NEGATIVE mg/dL (<2.0)
[2019-05-19] MEDS ORDERED: NORMAL SALINE 1000 ML 1,000 ML IV ONE (17:41)
[2019-05-19] MEDS ORDERED: ONDANSETRON HCL INJ/PF 4 MG/2 ML SDV IV ONE (18:10)
[2019-05-19] MEDS ORDERED: PANTOPRAZOLE SODIUM 40 MG VIAL IV ONE (18:24)
[2019-05-19] MEDS ORDERED: PANTOPRAZOLE SODIUM 40 MG VIAL IV PRN (18:24)
[2019-05-19] MEDS ORDERED: FENTANYL CITRATE INJ/PF 100 MCG/2 ML AMPUL IV ONE (18:47)
--- NOTE | 2019-05-19 21:08 | RADIOLOGY REPORT (SQ) ---
EXAM DESCRIPTION: CT ABDOMEN PELVIS WITH IV CONTRAST COMPLETED DATE/TME: 05/19/2019 00:00 CLINICAL HISTORY: 58 years Male right sided upper and lower pain COMPARISON: None. TECHNIQUE: Contiguous axial images obtained through the abdomen and pelvis following IV contrast. Reformatted images obtained. This exam was performed according to our department optimization program which includes automated exposure control, adjustment of the mA and/or kv according to patient size and/or use of iterative reconstruction technique. FINDINGS: The liver appears unremarkable. The spleen and pancreas appear unremarkable. No adrenal masses. Lobular scarring in the right kidney. No hydronephrosis or obstructive uropathy. The gallbladder is moderately contracted. No aneurysmal dilatation of the aorta. No bowel obstruction. The appendix is nonvisualized. No significant free fluid noted. Prosthetic hip on the right. 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 IMPRESSION:
--- NOTE | 2019-05-19 21:34 | ER Document Report ---
ED General - General Chief Complaint: Abdominal Pain Stated Complaint: ABDOMINAL PAIN Time Seen by Provider: 05/19/19 16:13 Primary Care Provider: PRITI MA MD [ACTIVE STAFF] - Follow up as needed Mode of Arrival: Ambulatory Notes: Patient is a 58-year-old male presents to the emergency department for generalized epigastric periumbilical abdominal pain. Patient states he has had multiple episodes of vomiting in the last 4 days. He is denying any blood in his emesis. Patient states for the last 4 days he is also had "dark black poop". Patient states he has had dark stools twice a day for the last 4 days. Patient's denying any fever. Patient denies taking any [id number] medications for vomiting or dark stools. Patient states he has an extensive history of esophageal varices. States he had surgical repair of these varices in [place]. Patient has a large well-healed scar on his abdomen through his epigastric region. Patient states the last time he partook in alcohol was 1 week ago. Past medical history: Hypertension Medications: Lisinopril Allergies: None TRAVEL OUTSIDE OF THE [place] IN LAST 30 DAYS: No - Related Data Allergies/Adverse Reactions: metoprolol tartrate [From Lopressor] Adverse Reaction (Verified 05/19/19 16:08) Generalized rash Past Medical History - General Information source: Patient - Social History Smoking Status: Former Smoker Drug Abuse: None Family History: Reviewed & Not Pertinent Patient has suicidal ideation: No Patient has homicidal ideation: No - Past Medical History Cardiac Medical History: Reports: Hx Hypertension Pulmonary Medical History: Denies: Hx Tuberculosis Neurological Medical History: Reports: Hx Seizures - LAST 5 YR AGO Renal/ Medical History: Denies: Hx Peritoneal Dialysis GI Medical History: Reports: Hx Ulcer Musculoskeletal Medical History: 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 Denies: Hx Pacemaker - Immunizations Immunizations up to date: Yes Hx Diphtheria, Pertussis, Tetanus Vaccination: Yes Hx Pneumococcal Vaccination: 08/25/18 Review of Systems - Review of Systems Constitutional: denies: Fever EENT: No symptoms reported Cardiovascular: No symptoms reported Respiratory: No symptoms reported Gastrointestinal: See HPI Genitourinary: No symptoms reported Male Genitourinary: No symptoms reported Musculoskeletal: No symptoms reported Skin: No symptoms reported Hematologic/Lymphatic: No symptoms reported Neurological/Psychological: No symptoms reported Physical Exam - Vital signs Vitals: Temp Pulse Resp BP Pulse Ox 97.9 F 90 18 129/89 H 96 05/19/19 16:08 05/19/19 16:08 05/19/19 16:08 05/19/19 16:08 05/19/19 16:08 - Notes Notes: GENERAL: Alert, interacts well. No acute distress. HEAD: Normocephalic, atraumatic. EYES: Pupils equal, round, and reactive to light. Extraocular movements intact. ENT: Oral mucosa moist, tongue midline. NECK: Full range of motion. Supple. Trachea midline. LUNGS: Clear to auscultation bilaterally, no wheezes, rales, or rhonchi. No respiratory distress. HEART: Regular rate and rhythm. No murmur ABDOMEN: Well-healed vertical incision going from patient's epigastric region down to his umbilicus. Soft, generalized epigastric abdominal pain and periumbilical abdominal pain noted, non-distended. Bowel sounds present in all 4 quadrants. EXTREMITIES: Moves all 4 extremities spontaneously. No edema, normal radial and dorsalis pedis pulses bilaterally. No cyanosis. BACK: no cervical, thoracic, lumbar midline tenderness. No saddle anesthesia, normal distal neurovascular exam. NEUROLOGICAL: Alert and oriented x3. Normal speech. cranial nerves II through XII grossly intact PSYCH: Normal affect, normal mood. SKIN: Warm, dry, normal turgor. No rashes or lesions noted. 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 Course - Re-evaluation Re-evalutation: Initially discussed patient's lab results and presentation with my attending Dr. Katt Damian. She is suggesting giving the patient Protonix IV and also drip. She is also recommended discussing this case with returned goods inspector Dr. Hartley. Based on patient's history of esophageal varices with extensive surgical repair and now guaiac positive stool. Currently awaiting CT results, then will contact gastroenterology. 05/19/19 21:16 I have discussed this patient's presentation and lab results with returned goods inspector Dr. Ma. I discussed my concerns about patient having history of esophageal varices with now guaiac positive stool. Patient's hemoglobin is stable, he is hemodynamically stable. Dr. Wilson states if the patient's hemoglobin is unchanged he can follow-up outpatient in the office. I discussed with patient the suggestion of Dr. Ma. Patient states he has a primary care provider Dr. Agarwal. States he is supposed to see him within this next week. I discussed that I am going to give him phone numbers for gastroenterology and he should follow-up with both his primary care provider and gastroenterology. I also discussed with patient at length close return precautions. Discussed should patient have continued recurrent multiple episodes of dark black stool, l ightheadedness, dizziness, weakness, shortness of breath, chest pain he should immediately return to the emergency room. Patient states his abdominal pain has since ceased. Continues to deny any andry sea and has been eating in the emergency room. Patient has had no bowel movements while in the emergency room. Patient continues to be hemodynamically stable, stable for discharge. - Vital Signs Vital signs: Temp Pulse Resp BP Pulse Ox 97.9 F 92 20 134/92 H 96 05/19/19 21:50 05/19/19 21:50 05/19/19 21:50 05/19/19 21:50 05/19/19 21:50 - Laboratory Result Diagrams: 05/19/19 15:25 05/19/19 15:25 Laboratory results interpreted by me: 05/19/19 05/19/19 15:25 15:25 WBC 15.6 H RDW 15.6 H Plt Count 646 H Seg Neutrophils % 84.0 H Lymphocytes % 8.0 L Absolute Neutrophils 13.1 H BUN 26 H Creatinine 1.66 H Est GFR ( Amer) 52 L Est GFR (Non-Af Amer) 43 L Discharge - Discharge Clinical Impression: Gastrointestinal bleeding Qualifiers: GI bleed type/associated pathology: unspecified gastrointestinal hemorrhage typ e Qualified Code(s): K92.2 - Gastrointestinal hemorrhage, unspecified Condition: Stable Disposition: HOME, SELF-CARE Instructions: Upper Gastrointestinal Bleeding ([facility]) Additional Instructions: As we discussed you have been seen and treated in the emergency department for generalized abdominal pain and blood in your poop. I have spoken with a returned goods inspector who wants to see you in his office. Please make sure you take the phone numbers and addresses within this packet and follow-up. Please also make sure he follow-up with your primary care provider in the next 24 to 48 hours. Please also immediately return to the emergency department should he have recurrent episodes of dark black stool, feel lightheaded, dizzy, weak, short of breath, have any chest pains, or have any other concerns. Prescriptions: Pantoprazole Sodium [Protonix] 40 mg PO DAILY #14 tablet.dr Referrals: PRITI MA MD [ACTIVE STAFF] - Follow up as needed
[2019-05-19 21:52] VITALS: BP 134/92
== END 2019-05-19 21:50 | disposition home or self-care (01) ==
LOC: ER 16:06
DX: K92.2 Gastrointestinal hemorrhage, unspecified (principal); R10.13 Epigastric pain; R10.33 Periumbilical pain; I10 Essential (primary) hypertension
CPT/HCPCS: 96376; 99284; 96361; 96375; 96365; 96366; 36415; 80307; 83690; 85025; 85610; 85730; 80053; 81001; 74177; J3010; S0164; J2405; J7030

== ENCOUNTER 2019-05-28 02:47 | Emergency (ER) | payer MEDICAID ==
[2019-05-28 02:58] VITALS: BP 171/99
[2019-05-28 04:22] LABS: ABSOLUTE BASOPHILS # (AUTO) 0.1 10^3/uL (0.0-0.2); ABSOLUTE EOSINOPHILS # (AUTO) 0.3 10^3/uL (0.0-0.6); ABSOLUTE LYMPHOCYTES (AUTO) 1.2 10^3/uL (0.5-4.7); ABSOLUTE MONOCYTES (AUTO) 0.5 10^3/uL (0.1-1.4); ABSOLUTE NEUT (AUTO) 9.2 10^3/uL (1.7-8.2); BASOPHILS % (AUTO) 1.2 % (0-2); EOSINOPHILS % (AUTO) 2.5 % (0-6); HEMATOCRIT 44.6 % (37.9-51.0); LYMPHOCYTES % (AUTO) 10.9 % (13-45); MEAN CORPUSCULAR HEMOGLOBIN 30.4 pg (27.0-33.4); MEAN CORPUSCULAR HGB CONC 33.7 g/dL (32.0-36.0); MEAN CORPUSCULAR VOLUME 90 fl (80-97); MONOCYTES % (AUTO) 4.2 % (3-13); PLATELET COUNT 655 10^3/uL (150-450); RED BLOOD COUNT 4.94 10^6/uL (4.35-5.55); RED CELL DISTRIBUTION WIDTH 15.6 % (11.5-14.0); SEGMENTED NEUTROPHILS % (AUTO) 81.2 % (42-78); TOTAL CELLS COUNTED % (AUTO) 100 %; WHITE BLOOD COUNT 11.3 10^3/uL (4.0-10.5)
[2019-05-28 04:39] LABS: ALANINE AMINOTRANSFERASE 23 U/L (21-72); ALBUMIN 4.5 g/dL (3.5-5.0); ALKALINE PHOSPHATASE 91 U/L (38-126); ANION GAP 11 (5-19); ASPARTATE AMINO TRANSFERASE 28 U/L (17-59); BILIRUBIN,DIRECT 0.4 mg/dL (0.0-0.4); BILIRUBIN,TOTAL 0.6 mg/dL (0.2-1.3); BLOOD UREA NITROGEN 26 mg/dL (7-20); CALCIUM 9.8 mg/dL (8.4-10.2); CARBON DIOXIDE 25 mmol/L (22-30); CHLORIDE 104 mmol/L (98-107); GLUCOSE 91 mg/dL (75-110); LIPASE 110.2 U/L (23-300); SODIUM 140.4 mmol/L (137-145); TOTAL PROTEIN 7.8 g/dL (6.3-8.2)
[2019-05-28 05:20] LABS: APPEARANCE,URINE CLEAR; BILIRUBIN,URINE NEGATIVE (NEGATIVE); COLOR,URINE STRAW; GLUCOSE, URINE NEGATIVE (NEGATIVE); KETONES,URINE NEGATIVE (NEGATIVE); LEUKOCYTE ESTERASE,URINE NEGATIVE (NEGATIVE); NITRITE,URINE NEGATIVE (NEGATIVE); PROTEIN,URINE NEGATIVE (NEGATIVE); URINE SPECIFIC GRAVITY 1.008; UROBILINOGEN,URINE NEGATIVE mg/dL (<2.0)
[2019-05-28] MEDS ORDERED: SUCRALFATE 1 GM TABLET PO ONE (07:01)
--- NOTE | 2019-05-28 07:07 | ER Document Report ---
ED General - General Chief Complaint: Abdominal Pain >50 Stated Complaint: ABDOMINAL PAIN Time Seen by Provider: 05/28/19 06:49 TRAVEL OUTSIDE OF THE [place] IN LAST 30 DAYS: No - HPI Notes: Patient is a 58-year-old male that presents to the emergency department for chief complaint of epigastric abdominal pain. Patient reports intermittent epigastric abdominal pain for the last 2 days. He states it is a burning sensation in his epigastrium that does not radiate. The pain has been constant but gets worse with eating. He denies any associated nausea, vomiting, fever/chills, chest pain, palpitations and shortness of breath. He does report history of peptic ulcer disease. He does not take any medications for peptic ulcers. He is currently on Lasix from his previous admission. He states he has a follow-up appointment with his PCP in a few weeks. Past Medical History: Hypertension Past Surgical History: Laparoscopy for perforated peptic ulcer Social History: Former smoker. Denies drug and alcohol use Family History: Reviewed and noncontributory for presenting illness Allergies: Reviewed, see documented allergy list. REVIEW OF SYSTEMS: CONSTITUTIONAL : No fever No chills No diaphoresis No recent illness EENT: No vision changes No congestion No sore throat CARDIOVASCULAR: No chest pain No palpitations RESPIRATORY: No shortness of breath No cough No difficulty breathing GASTROINTESTINAL: abdominal pain No nausea No vomiting No diarrhea GENITOURINARY: No dysuria No hematuria No difficulty urinating MUSCULOSKELETAL: No back pain No leg pain No arm pain SKIN: No rashes No lesions LYMPHATIC: No swollen, enlarged glands. NEUROLOGICAL: No lightheadedness No headache No weakness No paresthesias PSYCHIATRIC: No anxiety No depression PHYSICAL EXAMINATION: Vital signs reviewed, nursing noted reviewed. GENERAL: Well-appearing, well-nourished and in no acute distress. HEAD: Atraumatic, normocephalic. EYES: Eyes appear normal, extraocular movements intact, sclera anicteric, conjunctiva are normal. ENT: nares patent, oropharynx clear without exudates. Moist mucous membranes. NECK: Normal range of motion, supple without lymphadenopathy LUNGS: Breath sounds clear to auscultation bilaterally and equal. No wheezes rales or rhonchi. HEART: Regular rate and rhythm without murmurs ABDOMEN: Soft, mild epigastric tenderness, negative Mills sign. No rebound, guarding, or rigidity. No masses appreciated. EXTREMITIES: Nontender, good range of motion, no pitting or edema. NEUROLOGICAL: No focal neurological deficits. Moves all extremities spontaneously Motor and sensory grossly intact on exam. PSYCH: Normal mood, normal affect. SKIN: Warm, Dry, normal turgor, no rashes or lesions noted on exposed skin - Related Data Allergies/Adverse Reactions: metoprolol tartrate [From Lopressor] Adverse Reaction (Verified 05/19/19 16:08) Generalized rash Past Medical History - Social History Smoking Status: Former Smoker Chew tobacco use (# tins/day): No Frequency of alcohol use: Rare Drug Abuse: None Family History: Reviewed & Not Pertinent Patient has suicidal ideation: No Patient has homicidal ideation: No - Past Medical History Cardiac Medical History: Reports: Hx Hypertension Pulmonary Medical History: Denies: Hx Tuberculosis Neurological Medical History: Reports: Hx Seizures - LAST 5 YR AGO Renal/ Medical History: Denies: Hx Peritoneal Dialysis GI Medical History: Reports: Hx Ulcer Musculoskeletal Medical History: 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 Denies: Hx Pacemaker - Immunizations Immunizations up to date: Yes Hx Diphtheria, Pertussis, Tetanus Vaccination: Yes Hx Pneumococcal Vaccination: 08/25/18 Physical Exam - Vital signs Vitals: Pulse Resp BP Pulse Ox 85 16 171/99 H 96 05/28/19 02:49 05/28/19 02:49 05/28/19 02:49 05/28/19 02:49 Course - Re-evaluation Re-evalutation: 05/28/19 07:07 Vitals reviewed. Nursing notes reviewed. Patient is hypertensive but has not taken his home blood pressure medication yet today. His lab work today does show increasing creatinine. He has had elevated creatinine since his previous admission to the hospital but it is going up, this is likely because of his Lasix. I did advise that he have his creatinine rechecked by his PCP in the next week. Patient was told increased intake of fluids. He was told foods to avoid eating because of his history of peptic ulcers. His abdominal exam has mild tenderness in the epigastrium but is non-peritoneal and I do not suspect perforated gastric ulcer presently. He also has no right upper quadrant tenderness to suggest acute cholecystitis. At this point I do not feel further imaging is indicated. He will be given sucralfate and omeprazole for symptomatic management. Patient will be referred to GI for upper endoscopy if symptoms are persisting. He will return for new or worsening symptoms otherwise he will see his primary care doctor in the next few days. Laboratory 05/28/19 05/28/19 05/28/19 04:05 04:05 05:05 WBC 11.3 H RBC 4.94 Hgb 15.0 Hct 44.6 MCV 90 MCH 30.4 MCHC 33.7 RDW 15.6 H Plt Count 655 H Seg Neutrophils % 81.2 H Lymphocytes % 10.9 L Monocytes % 4.2 Eosinophils % 2.5 Basophils % 1.2 Absolute Neutrophils 9.2 H Absolute Lymphocytes 1.2 Absolute Monocytes 0.5 Absolute Eosinophils 0.3 Absolute Basophils 0.1 Sodium 140.4 Potassium 5.0 Chloride 104 Carbon Dioxide 25 Anion Gap 11 BUN 26 H Creatinine 2.05 H Est GFR ( Amer) 41 L Est GFR (Non-Af Amer) 34 L Glucose 91 Calcium 9.8 Total Bilirubin 0.6 Direct Bilirubin 0.4 Neonat Total Bilirubin Not Reportable Neonat Direct Bilirubin Not Reportable Neonat Indirect Bili Not Reportable AST 28 ALT 23 Alkaline Phosphatase 91 Total Protein 7.8 Albumin 4.5 Lipase 110.2 Urine Color STRAW Urine Appearance CLEAR Urine pH 6.0 Ur Specific [place] 1.008 Urine Protein NEGATIVE Urine Glucose (UA) NEGATIVE Urine Ketones NEGATIVE Urine Blood NEGATIVE Urine Nitrite NEGATIVE Urine Bilirubin NEGATIVE Urine Urobilinogen NEGATIVE Ur Leukocyte Esterase NEGATIVE Urine WBC (Auto) 1 Urine RBC (Auto) 0 Squamous Epi Cells Auto <1 Urine Mucus (Auto) RARE Urine Ascorbic Acid NEGATIVE - Vital Signs Vital signs: Temp Pulse Resp BP Pulse Ox 85 16 171/99 H 96 05/28/19 02:49 05/28/19 02:49 05/28/19 02:49 05/28/19 02:49 - Laboratory Result Diagrams: 05/28/19 04:05 05/28/19 04:05 Laboratory results interpreted by me: 05/28/19 05/28/19 04:05 04:05 WBC 11.3 H RDW 15.6 H Plt Count 655 H Seg Neutrophils % 81.2 H Lymphocytes % 10.9 L Absolute Neutrophils 9.2 H BUN 26 H Creatinine 2.05 H Est GFR ( Amer) 41 L Est GFR (Non-Af Amer) 34 L Discharge - Discharge Clinical Impression: Epigastric abdominal pain, Renal insufficiency Condition: Stable Disposition: HOME, SELF-CARE Instructions: Gastritis ([facility]), Abdominal Pain ([facility]) Additional Instructions: Please return to the emergency department if you have any worsening, or concern of your symptoms. Please return to the emergency department if you develop chest pain, difficulty breathing, severe abdominal pain, or ongoing vomiting. Please follow-up with your primary care physician in 2-3 days and any other recommended physicians. If prescribed, take all medications as directed. If you have any questions or concerns do not hesitate to return the emergency department for evaluation. Do not drink coffee or alcohol. Avoid foods that are spicy, fried, citric or heavily seasoned. Have your kidney function reevaluated by your primary care doctor next week Prescriptions: Omeprazole 40 mg PO DAILY #30 capsule. Sucralfakody [Carafate 1 gm Tablet] 1 gm PO ACHS #60 tablet Referrals: PRITI JAMES MD [ACTIVE STAFF] - Follow up as needed
[2019-05-28] MEDS ORDERED: FAMOTIDINE 20 MG TABLET PO ONE (07:16)
[2019-05-28] MEDS: FAMOTIDINE INJ/PF 20 MG/2 ML SDV IV ONE ×2 (07:19→07:27)
--- NOTE | 2019-05-28 18:32 | EKG REPORT ---
SEVERITY:- ABNORMAL ECG - SINUS RHYTHM PROBABLE LEFT VENTRICULAR HYPERTROPHY BORDERLINE PROLONGED QT INTERVAL : Confirmed by: Blaise Rush 28-May-2019 18:31:40
== END 2019-05-28 07:21 | disposition home or self-care (01) ==
LOC: ER 02:47
DX: R10.13 Epigastric pain (principal); N28.9 Disorder of kidney and ureter, unspecified; I10 Essential (primary) hypertension
CPT/HCPCS: 93005; 99284; 36415; 83690; 85025; 80053; 81001; 93010; J3490; S0028

== ENCOUNTER 2019-08-09 15:57 | Inpatient (IN) | payer MEDICAID ==
[2019-08-09] MEDS ORDERED: IPRATROPIUM/ALBUTEROL 0.5-2.5 MG/3 ML AMPUL NEB ONE (16:17)
--- NOTE | 2019-08-09 16:20 | ER Document Report ---
ED Medical Screen (RME) - General Chief Complaint: Nausea/Vomiting Stated Complaint: NAUSEA/VOMITING Time Seen by Provider: 08/09/19 16:10 Primary Care Provider: Venecia SU MD [Primary Care Provider] - Follow up as needed TRAVEL OUTSIDE OF THE [place] IN LAST 30 DAYS: No - HPI Notes: 08/09/19 16:15 Patient is a 58-year-old male with a history of hypertension, CKD, and per forated ulcer who presents complaining of left-sided chest pain that does not radiate that is been intermittent for 2 days as well as nausea vomiting has been relatively constant for the past couple days. Last bowel movement was 2 days ago. No melena or hematochezia. Pt states that he does have a heart valve issue that he saw a hire car driver for this past saturday and usually has SOB. Denies ALVARADO, fever, neck pain, URI, Abd pain, dysuria, back pain, or rash. I have treated and performed a rapid initial assessment of this patient. A comprehensive ED assessment and evaluation of the patient, analysis of test results and completion of medical decision making process will be conducted by additional ED providers. PHYSICAL EXAMINATION: GENERAL: Well-appearing, well-nourished and in no acute distress. A&Ox4. Answers questions appropriately. LUNGS: scant expiratory wheeze b/l. no retractions, 97% on RA at this time. HEART: Regular rate and rhythm without murmurs, rubs, gallops. ABDOMEN: Soft, nondistended abdomen. No guarding, no rebound. Normal bowel sounds present. No CVA tenderness bilaterally. Grossly nontender (cannot elicit thorough abd exam w/o bed, however). Extremities: No cyanosis, clubbing, or edema b/l. NEUROLOGICAL: Normal speech, normal gait. PSYCH: Normal mood, normal affect. 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 Denies: Hx Pacemaker - Immunizations Immunizations up to date: Yes Hx Diphtheria, Pertussis, Tetanus Vaccination: Yes Physical Exam - Vital signs Vitals: Temp Pulse Resp BP Pulse Ox 98.3 F 104 H 17 133/94 H 92 08/09/19 16:09 08/09/19 16:09 08/09/19 16:09 08/09/19 16:09 08/09/19 16:09 Course - Vital Signs Vital signs: Temp Pulse Resp BP Pulse Ox 98.3 F 104 H 17 133/94 H 92 08/09/19 16:09 08/09/19 16:09 08/09/19 16:09 08/09/19 16:09 08/09/19 16:09 Doctor's Discharge - Discharge Referrals: Venecia SU MD [Primary Care Provider] - Follow up as needed
[2019-08-09 16:47] LABS: HEMATOCRIT 54.7 % (37.9-51.0); HEMOGLOBIN 18.8 g/dL (13.5-17.0); MEAN CORPUSCULAR HEMOGLOBIN 30.3 pg (27.0-33.4); MEAN CORPUSCULAR HGB CONC 34.4 g/dL (32.0-36.0); MEAN CORPUSCULAR VOLUME 88 fl (80-97); PLATELET COUNT 560 10^3/uL (150-450); WHITE BLOOD COUNT 24.8 10^3/uL (4.0-10.5)
[2019-08-09 17:00] LABS: ALBUMIN 5.7 g/dL (3.5-5.0); ALKALINE PHOSPHATASE 129 U/L (38-126); ASPARTATE AMINO TRANSFERASE 50 U/L (17-59); BILIRUBIN,DIRECT 0.7 mg/dL (0.0-0.4); BILIRUBIN,TOTAL 2.2 mg/dL (0.2-1.3); BLOOD UREA NITROGEN 37 mg/dL (7-20); CALCIUM 10.7 mg/dL (8.4-10.2); CARBON DIOXIDE 26 mmol/L (22-30); CHLORIDE 86 mmol/L (98-107); GLUCOSE 88 mg/dL (75-110); POTASSIUM 5.4 mmol/L (3.6-5.0)
[2019-08-09 17:01] LABS: ANION GAP 24 (5-19)
[2019-08-09 17:14] LABS: ABSOLUTE LYMPHOCYTES# (MANUAL) 0.7 10^3/uL (0.5-4.7); ABSOLUTE MONOCYTES # (MANUAL) 0.2 10^3/uL (0.1-1.4); BASOPHILS % (MANUAL) 1 % (0-2); EOSINOPHILS % (MANUAL) 0 % (0-6); LYMPHOCYTES % (MANUAL) 3 % (13-45); MONOCYTES % (MANUAL) 1 % (3-13); SEGMENTED NEUTROPHILS % (MAN) 95 % (42-78); TOTAL CELLS COUNTED 100
[2019-08-09 17:15] LABS: ANISOCYTOSIS 1+; PLATELET COMMENT ADEQUATE; PLATELET LARGE PRESENT; TOXIC GRANULATION SLIGHT
[2019-08-09] MEDS ORDERED: NORMAL SALINE 1000 ML 1,000 ML IV ONE ×2 (17:36)
[2019-08-09] MEDS ORDERED: ASPIRIN 81 MG TABLET, CHEWABLE PO ONE (17:46)
--- NOTE | 2019-08-09 17:51 | RADIOLOGY REPORT (SQ) ---
EXAM DESCRIPTION: ACUTE ABDOMEN SERIES COMPLETED DATE/TIME: 08/09/2019 5:31 pm REASON FOR STUDY: cough, cp, n/v COMPARISON: 04/13/2019 NUMBER OF VIEWS: Three views. TECHNIQUE: Frontal chest, supine abdomen and upright/decubitus abdomen radiographic images acquired. LIMITATIONS: None. FINDINGS: CHEST: Stable appearance. FREE AIR: None. No abnormal gas collections. BOWEL GAS PATTERN: Nonobstructive pattern. No dilated loops or air fluid levels. CALCIFICATIONS: No suspicious calcifications. HARDWARE: None in the abdomen. SOFT TISSUES: No gross mass or suggestion of organomegaly. BONES: No acute fracture. No worrisome bone lesions. OTHER: No other significant finding. IMPRESSION: NO RADIOGRAPHIC EVIDENCE FOR ACUTE ABDOMINAL DISEASE. TECHNICAL DOCUMENTATION: JOB ID: [id number] [place]-72 2010 [email or web address]- All Rights Reserved Reading location - IP/workstation name: [email or web address]
--- NOTE | 2019-08-09 17:53 | ER Document Report ---
ED General - General Chief Complaint: Nausea/Vomiting Stated Complaint: NAUSEA/VOMITING Time Seen by Provider: 08/09/19 16:10 Primary Care Provider: Venecia SU MD [Primary Care Provider] - Follow up as needed TRAVEL OUTSIDE OF THE [place] IN LAST 30 DAYS: No - HPI Notes: Patient is a 58-year-old male that presents to the emergency department for chief complaint of chest pain coughing and vomiting. Patient states he woke up at 2 AM coughing heavily. He states he then got a left-sided chest pain that he describes as sharp and nonradiating. The chest pain lasted for about an hour before resolving. He denied any relieving factors to the pain but states it was worse when he was coughing. Patient states that he also became nauseated and vomiting at 2 AM as well. He reports vomiting every hour throughout the day today. He denies associated abdominal pain, fevers, chills or diarrhea. Patient states he is has a "heart valve issue" and had a echo performed on Saturday that he does not have the results of. He also does not know the forecast analyst who he has been working with on his heart valve issue. Currently patient states the chest pain has resolved but he reports it was intermittent throughout the day lasting about an hour each time. He did receive an albuterol treatment in triage and states that has minimally helped the coughing. Past Medical History: Hypertension Past Surgical History: Reviewed in chart Social History: Denies drugs and tobacco use. Reports occasional alcohol Family History: Reviewed and noncontributory for presenting illness Allergies: Reviewed, see documented allergy list. REVIEW OF SYSTEMS: CONSTITUTIONAL : No fever No chills No diaphoresis No recent illness EENT: No vision changes No congestion No sore throat CARDIOVASCULAR: chest pain No palpitations RESPIRATORY: shortness of breath cough difficulty breathing GASTROINTESTINAL: No abdominal pain nausea vomiting No diarrhea GENITOURINARY: No dysuria No hematuria No difficulty urinating MUSCULOSKELETAL: No back pain No leg pain No arm pain SKIN: No rashes No lesions LYMPHATIC: No swollen, enlarged glands. NEUROLOGICAL: No lightheadedness No headache No weakness No paresthesias PSYCHIATRIC: No anxiety No depression PHYSICAL EXAMINATION: Vital signs reviewed, nursing noted reviewed. GENERAL: Well-appearing, well-nourished and in no acute distress. HEAD: Atraumatic, normocephalic. EYES: Eyes appear normal, extraocular movements intact, sclera anicteric, conjunctiva are normal. ENT: nares patent, oropharynx clear without exudates. Moist mucous membranes. NECK: Normal range of motion, supple without lymphadenopathy LUNGS: Breath sounds mildly diminished but clear to auscultation bilaterally and equal. No wheezes rales or rhonchi. HEART: Tachycardic rate and regular rhythm without murmurs ABDOMEN: Soft, nontender, normoactive bowel sounds. No rebound, guarding, or rigidity. No masses appreciated. EXTREMITIES: Nontender, good range of motion, no pitting or edema. NEUROLOGICAL: No focal neurological deficits. Moves all extremities spontaneously Motor and sensory grossly intact on exam. PSYCH: Normal mood, normal affect. SKIN: Warm, Dry, normal turgor, no rashes or lesions noted on exposed skin - Related Data Allergies/Adverse Reactions: metoprolol tartrate [From Lopressor] Adverse Reaction (Verified 08/09/19 16:02) Generalized rash Past Medical History - Social History Smoking Status: Former Smoker Chew tobacco use (# tins/day): No Frequency of alcohol use: Occasional Drug Abuse: None Family History: Reviewed & Not Pertinent Patient has suicidal ideation: No Patient has homicidal ideation: No - Past Medical History Cardiac Medical History: Reports: Hx Hypertension Pulmonary Medical History: Denies: Hx Tuberculosis Neurological Medical History: Reports: Hx Seizures - LAST 5 YR AGO Renal/ Medical History: Denies: Hx Peritoneal Dialysis GI Medical History: Reports: Hx Ulcer Musculoskeletal Medical History: 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 Denies: Hx Pacemaker - Immunizations Immunizations up to date: Yes Hx Diphtheria, Pertussis, Tetanus Vaccination: Yes Hx Pneumococcal Vaccination: 08/25/18 Physical Exam - Vital signs Vitals: Temp Pulse Resp BP Pulse Ox 98.3 F 104 H 17 133/94 H 92 08/09/19 16:09 08/09/19 16:09 08/09/19 16:09 08/09/19 16:09 08/09/19 16:09 Course - Re-evaluation Re-evalutation: 08/09/19 17:51 Vitals reviewed. Nursing notes reviewed. Patient is alert and nontoxic in appearance. He was afebrile at presentation. Patient is tachycardic and has a white count of 24 concerning for sepsis. Blood cultures and lactate have been ordered to triage protocol orders. His EKG was reviewed and shows new T wave inversions in the precordial leads compared to May 2019. His initial troponin is also indeterminate at 0.044. Patient was given aspirin for his complaint of chest pain and abnormal EKG. Patient currently oxygenating well on room air and in no acute distress. He is also currently chest pain-free. 08/09/19 18:07 Patient's chest x-ray is negative for underlying pneumonia. His urinalysis is still pending. Patient's leukocytosis may be secondary to volume contraction and stress reaction from his ongoing vomiting today. He also has an elevated total bili however he has no abdominal pain or tenderness to palpation to suggest intra-abdominal process including acute cholecystitis or cholangitis. Patient will be admitted to the hospital for further medical management including trending of his troponins and hydration. His care was discussed with Dr. House who accepts admission Laboratory 08/09/19 08/09/19 08/09/19 16:33 16:33 16:33 WBC 24.8 H RBC 6.20 H Hgb 18.8 H Hct 54.7 H MCV 88 MCH 30.3 MCHC 34.4 RDW 16.0 H Plt Count 560 H Lymph % (Auto) Not Reportable [place] % (Auto) Not Reportable Eos % (Auto) Not Reportable Baso % (Auto) Not Reportable Absolute Neuts (auto) Not Reportable Absolute Lymphs (auto) Not Reportable Absolute Monos (auto) Not Reportable Absolute Eos (auto) Not Reportable Absolute Basos (auto) Not Reportable Total Counted 100 Seg Neutrophils % Not Reportable Seg Neuts % (Manual) 95 H Lymphocytes % (Manual) 3 L Monocytes % (Manual) 1 L Eosinophils % (Manual) 0 Basophils % (Manual) 1 Abs Neuts (Manual) 23.6 H Abs Lymphs (Manual) 0.7 Abs Monocytes (Manual) 0.2 Absolute Eos (Manual) 0.0 Abs Basophils (Manual) 0.2 Toxic Granulation SLIGHT Large Platelets PRESENT Platelet Comment ADEQUATE Anisocytosis 1+ Sodium 136.1 L Potassium 5.4 H Chloride 86 L Carbon Dioxide 26 Anion Gap 24 H BUN 37 H Creatinine 1.77 H Est GFR ( Amer) 48 L Est GFR (MDRD) Non-Af 40 L Glucose 88 Calcium 10.7 H Total Bilirubin 2.2 H Direct Bilirubin 0.7 H Neonat Total Bilirubin Not Reportable Neonat Direct Bilirubin Not Reportable Neonat Indirect Bili Not Reportable AST 50 ALT 24 Alkaline Phosphatase 129 H Troponin I 0.044 Total Protein 9.0 H Albumin 5.7 H Lipase 55.6 Acute Abdomen Series 08/09/19 16:14 IMPRESSION: NO RADIOGRAPHIC EVIDENCE FOR ACUTE ABDOMINAL DISEASE. - Vital Signs Vital signs: Temp Pulse Resp BP Pulse Ox 98.3 F 104 H 17 133/94 H 92 08/09/19 16:09 08/09/19 16:09 08/09/19 16:09 08/09/19 16:09 08/09/19 16:09 - Laboratory Result Diagrams: 08/09/19 16:33 08/09/19 16:33 Laboratory results interpreted by me: 08/09/19 08/09/19 16:33 16:33 WBC 24.8 H RBC 6.20 H Hgb 18.8 H Hct 54.7 H RDW 16.0 H Plt Count 560 H Seg Neuts % (Manual) 95 H Lymphocytes % (Manual) 3 L Monocytes % (Manual) 1 L Abs Neuts (Manual) 23.6 H Sodium 136.1 L Potassium 5.4 H Chloride 86 L Anion Gap 24 H BUN 37 H Creatinine 1.77 H Est GFR ( Amer) 48 L Est GFR (MDRD) Non-Af 40 L Calcium 10.7 H Total Bilirubin 2.2 H Direct Bilirubin 0.7 H Alkaline Phosphatase 129 H Total Protein 9.0 H Albumin 5.7 H - EKG Interpretation by Me Additional EKG results interpreted by me: 08/09/19 17:52 Interpreted by myself Sinus tachycardia, rate 104, normal axis, no ectopy, left anterior fascicular block, new T wave inversions in inferior and precordial leads compared to 05/28/2019 Discharge - Discharge Clinical Impression: Shortness of breath, Dehydration, Hyperkalemia Chest pain Qualifiers: Chest pain type: unspecified Qualified Code(s): R07.9 - Chest pain, unspecified Nausea and vomiting Qualifiers: Vomiting type: unspecified Vomiting Intractability: non-intractable Qualified Code(s): R11.2 - Nausea with vomiting, unspecified Leukocytosis Qualifiers: Leukocytosis type: unspecified Qualified Code(s): D72.829 - Elevated white blood cell count, unspecified Condition: Stable Disposition: ADMITTED INPATIENT Admitting Provider: Harsh (Hospitalist) Unit Admitted: Telemetry Referrals: Venecia SU MD [Primary Care Provider] - Follow up as needed
[2019-08-09] MEDS ORDERED: ACETAMINOPHEN 325 MG TABLET PO PRN (18:36)
[2019-08-09] MEDS ORDERED: ONDANSETRON HCL INJ/PF 4 MG/2 ML SDV IV PRN (18:36)
--- NOTE | 2019-08-09 18:51 | PDOC H&P ---
History of Present Illness Admission Date/PCP: 08/09/19 18:12 Venecia SU MD History of Present Illness: SHAHRZAD JAIN is a 58 year old male who does not know his primary care prov ider's name but says he goes to [facility], who presents with nausea vomiting. He said he was in his usual state of health until about 2 AM this morning, at which time he woke up and started vomiting violently. He said after vomiting a few times his chest would hurt whenever he heaved but otherwise he was not having any pain. He denies any pain at this time. He did not have any diarrhea. He has not been around anyone he knows to be sick. He said he consider driving himself to the emergency department but he felt like he was too sick so he called EMS. He has not had any change in his medications. He does not have any fever that he knows of. He said he tried to take his blood pressu re medicine but he threw it back up. He tried to drink water a couple of other times but he threw that back up as well. He has some chronic kidney disease and has had a little bit of an elevation in his baseline creatinine. He is being admitted for IV fluids and nausea control. Past Medical History Cardiac Medical History: Reports: Hypertension Pulmonary Medical History: Denies: Tuberculosis Neurological Medical History: Reports: Seizures - LAST 5 YR AGO Past Surgical History Past Surgical History: Reports: Orthopedic Surgery - hip, arm Denies: Pacemaker Social History Smoking Status: Former Smoker Frequency of Alcohol Use: Rare Hx Recreational Drug Use: No Drugs: None Hx Prescription Drug Abuse: No Family History Family History: Reviewed & Not Pertinent Parental Family History Reviewed: Yes - He is a poor historian and does not know Children Family History Reviewed: Unknown Sibling(s) Family History Reviewed.: Unknown Medication/Allergy Home Medications: Albuterol Sulfate [Proair HFA Inhalation Aerosol 8.5 gm MDI] 2 puff IH Q4HP PRN 04/21/19 Lisinopril [Prinivil 40 mg Tablet] 40 mg PO DAILY 04/21/19 Meloxicam [Mobic] 15 mg PO DAILY 04/21/19 Furosemide [Lasix] 20 mg PO DAILY #30 tablet 04/22/19 Pantoprazole Sodium [Protonix] 40 mg PO DAILY #14 tablet. 05/19/19 Omeprazole 40 mg PO DAILY #30 capsule. 05/28/19 Sucralfate [Carafate 1 gm Tablet] 1 gm PO ACHS #60 tablet 05/28/19 Allergies/Adverse Reactions: metoprolol tartrate [From Lopressor] Adverse Reaction (Verified 08/09/19 16:02) Generalized rash Review of Systems All systems: reviewed and no additional remarkable complaints except as stated - all systems were reviewed and were negative except as noted in the HPI Physical Exam Vital Signs: Temp Pulse Resp BP Pulse Ox 98.3 F 104 H 17 133/94 H 92 08/09/19 16:09 08/09/19 16:09 08/09/19 16:09 08/09/19 16:09 08/09/19 16:09 Intake & Output 08/08/19 08/09/19 08/10/19 06:59 06:59 06:59 Weight 54.431 kg General appearance: PRESENT: no acute distress, cooperative, disheveled, thin Head exam: PRESENT: atraumatic, normocephalic Eye exam: PRESENT: EOMI, PERRLA. ABSENT: conjunctival injection, nystagmus, scleral icterus Ear exam: PRESENT: normal external ear exam Mouth exam: PRESENT: dry mucosa, neck supple Teeth exam: PRESENT: poor dentation Throat exam: ABSENT: post pharyngeal erythema Neck exam: PRESENT: full ROM. ABSENT: carotid bruit, JVD, lymphadenopathy, meningismus, tenderness, thyromegaly Respiratory exam: PRESENT: clear to auscultation [place], symmetrical, unlabored. ABSENT: accessory muscle use, chest wall tenderness, crackles, prolonged expiratory phas, rhonchi, tachypnea, wheezes Cardiovascular exam: PRESENT: +S1, +S2, systolic murmur, tachycardia Pulses: PRESENT: normal carotid pulses Vascular exam: PRESENT: normal capillary refill GI/Abdominal exam: PRESENT: normal bowel sounds, soft. ABSENT: distended, guarding, rebound, tenderness Extremities exam: ABSENT: clubbing, pedal edema Musculoskeletal exam: PRESENT: normal inspection. ABSENT: deformity Neurological exam: PRESENT: alert, awake, oriented to person, oriented to place, oriented to situation, CN II-XII grossly intact. ABSENT: motor sensory deficit Psychiatric exam: PRESENT: appropriate affect, normal mood Skin exam: PRESENT: dry, warm Results Laboratory Results: 08/09/19 16:33 08/09/19 16:33 08/09/19 08/09/19 16:33 16:33 WBC 24.8 H RBC 6.20 H Hgb 18.8 H Hct 54.7 H MCV 88 MCH 30.3 MCHC 34.4 RDW 16.0 H Plt Count 560 H Seg Neutrophils % Not Reportable Sodium 136.1 L Potassium 5.4 H Chloride 86 L Carbon Dioxide 26 Anion Gap 24 H BUN 37 H Creatinine 1.77 H Est GFR ( Amer) 48 L Glucose 88 Calcium 10.7 H Total Bilirubin 2.2 H AST 50 Alkaline Phosphatase 129 H Total Protein 9.0 H Albumin 5.7 H Lipase 55.6 08/09/19 16:33 Troponin I 0.044 Impressions: Acute Abdomen Series 08/09/19 16:14 IMPRESSION: NO RADIOGRAPHIC EVIDENCE FOR ACUTE ABDOMINAL DISEASE. Assessment and Plan - Diagnosis (1) Dehydration Is this a current diagnosis for this admission?: Yes Plan: Due to his gastroenteritis. We will give him some IV fluids and monitor his electrolytes and urine output. (2) Nausea and vomiting Qualifiers: Vomiting type: unspecified Vomiting Intractability: non-intractable Qualified Code(s): R11.2 - Nausea with vomiting, unspecified Is this a current diagnosis for this admission?: Yes Plan: This improved with Zofran. We will continue to give him some Zofran and will allow him to eat whenever he feels up to it. We will also give him his oral medications from home whenever he feels up to taking them. (3) HTN (hypertension) Qualifiers: Hypertension type: essential hypertension Qualified Code(s): I10 - Essential (primary) hypertension Is this a current diagnosis for this admission?: Yes Plan: We will resume his home medications once he feels up to taking them - Time Time Spent with patient: 35 or more minutes - Inpatient Certification Based on my medical assessment, after consideration of the patient's com orbidities, presenting symptoms, or acuity I expect that the services needed warrant INPATIENT care.: Yes I certify that my determination is in accordance with my understanding of Medicare's requirements for reasonable and necessary INPATIENT services [42 CFR 412.3e].: Yes Medical Necessity: Need Close Monitoring Due to Risk of Patient Decompensation, Need For IV Fluids, Need For Continuous Telemetry Monitoring, Risk of Complication if Not Cared For in Hospital - Plan Summary Plan Summary: The ER provider reported that he had some chest pain. Patient told me that he had chest pain after vomiting a few times but when he was not actively vomiting he was not having any pain. He does not have any pain now. There was a report of some inverted T waves on his EKG. When I look at it compared to an old EKG, I do not see any inverted T waves, some subtle flattening of the T waves on the current EKG was all but they are present and discernible. I do not feel like he has any kind of acute coronary syndrome in any way. He will be monitored on telemetry in any event.
--- NOTE | 2019-08-09 19:25 | EKG REPORT ---
SEVERITY:- ABNORMAL ECG - SINUS TACHYCARDIA WITH IRREGULAR RATE 85-129 RIGHT ATRIAL ABNORMALITY LEFT ANTERIOR FASCICULAR BLOCK PROBABLE LEFT VENTRICULAR HYPERTROPHY NONSPECIFIC T ABNORMALITIES, INFERIOR LEADS : Confirmed by: Gianna Michaud MD 09-Aug-2019 19:25:11
[2019-08-09] MEDS ORDERED: ONDANSETRON HCL INJ/PF 4 MG/2 ML SDV ONE (19:49)
[2019-08-09] MEDS: NORMAL SALINE 1000 ML 1,000 ML IV PRN (20:52)
[2019-08-09] MEDS: HEPARIN SOD (PORCINE) 5,000 UNIT/ML 1 ML VIAL SUBCUT SCH (21:58)
[2019-08-10 05:10] LABS: ANION GAP 10 (5-19); BLOOD UREA NITROGEN 31 mg/dL (7-20); CALCIUM 8.4 mg/dL (8.4-10.2); CARBON DIOXIDE 26 mmol/L (22-30); CHLORIDE 101 mmol/L (98-107); GLUCOSE 99 mg/dL (75-110); POTASSIUM 4.8 mmol/L (3.6-5.0)
[2019-08-10] MEDS: HEPARIN SOD (PORCINE) 5,000 UNIT/ML 1 ML VIAL SUBCUT SCH ×3 (05:16→21:53)
[2019-08-10] MEDS: NORMAL SALINE 1000 ML 1,000 ML IV PRN (05:30)
[2019-08-10 07:37] LABS: HEMATOCRIT 45.2 % (37.9-51.0); MEAN CORPUSCULAR HEMOGLOBIN 29.8 pg (27.0-33.4); MEAN CORPUSCULAR HGB CONC 33.1 g/dL (32.0-36.0); MEAN CORPUSCULAR VOLUME 90 fl (80-97); PLATELET COUNT 418 10^3/uL (150-450); RED BLOOD COUNT 5.01 10^6/uL (4.35-5.55); RED CELL DISTRIBUTION WIDTH 15.8 % (11.5-14.0); WHITE BLOOD COUNT 21.3 10^3/uL (4.0-10.5)
[2019-08-10 08:20] LABS: APPEARANCE,URINE CLEAR; BILIRUBIN,URINE NEGATIVE (NEGATIVE); COLOR,URINE STRAW; GLUCOSE, URINE NEGATIVE (NEGATIVE); KETONES,URINE 100 mg/dL (NEGATIVE); LEUKOCYTE ESTERASE,URINE NEGATIVE (NEGATIVE); NITRITE,URINE NEGATIVE (NEGATIVE); PROTEIN,URINE NEGATIVE (NEGATIVE); UROBILINOGEN,URINE NEGATIVE mg/dL (<2.0)
[2019-08-10 08:22] LABS: URINE SPECIFIC GRAVITY 1.017
[2019-08-10] MEDS ORDERED: ONDANSETRON HCL INJ/PF 4 MG/2 ML SDV IV PRN (14:30)
[2019-08-10] MEDS: BENZOCAINE/MENTHOL SORE THROAT LOZENGE BUCCAL PRN (16:40)
--- NOTE | 2019-08-10 18:11 | PDOC PROGRESS REPORT ---
Subjective Progress Note for:: 08/10/19 Subjective:: No adverse events overnight. No new complaints. He said he was feeling fine but they checked his oxygen levels and they were low and so they put him on some oxygen per nasal cannula. He has had no cough, chest pain, or shortness of breath. Stopped his IV fluids and went back to check and later on room air and he was 87 to 88% SPO2. I had him off oxygen for about a half an hour before I checked him. He was completely asymptomatic. He does have a history of COPD but says he quit smoking 4 years ago. Reason For Visit: DEHYDRATION, ACUTE ON CHRONIC KIDNEY INJURY, N/V Physical Exam Vital Signs: Temp Pulse Resp BP Pulse Ox 98.2 F 97 19 110/88 H 95 08/10/19 15:32 08/10/19 15:32 08/10/19 15:32 08/10/19 15:32 08/10/19 15:32 Intake & Output 08/09/19 08/10/19 08/11/19 06:59 06:59 06:59 Intake Total 3123 596 Balance 3123 596 Weight 57.5 kg General appearance: PRESENT: no acute distress, cooperative, disheveled Respiratory exam: PRESENT: clear to auscultation [place] - Diminished throughout, symmetrical, unlabored. ABSENT: accessory muscle use, chest wall tenderness, crackles, prolonged expiratory phas, rhonchi, tachypnea, wheezes Cardiovascular exam: PRESENT: RRR, +S1, +S2 Pulses: PRESENT: normal carotid pulses Vascular exam: PRESENT: normal capillary refill GI/Abdominal exam: PRESENT: normal bowel sounds, soft. ABSENT: distended, guarding, rebound, tenderness Extremities exam: ABSENT: clubbing, pedal edema Musculoskeletal exam: PRESENT: normal inspection. ABSENT: deformity Neurological exam: PRESENT: alert, awake, oriented to person, oriented to place, oriented to situation Psychiatric exam: PRESENT: appropriate affect, normal mood Skin exam: PRESENT: dry, warm Results Laboratory Results: 08/10/19 07:16 08/10/19 03:57 08/09/19 08/09/19 08/10/19 18:03 22:10 03:57 WBC Cancelled RBC Cancelled Hgb Cancelled Hct Cancelled MCV Cancelled MCH Cancelled MCHC Cancelled RDW Cancelled Plt Count Cancelled Sodium Potassium Chloride Carbon Dioxide Anion Gap BUN Creatinine Est GFR ( Amer) Glucose Lactic Acid 2.5 H 1.2 Calcium Urine Color Urine Appearance Urine pH Ur Specific [place] Urine Protein Urine Glucose (UA) Urine Ketones Urine Blood Urine Nitrite Ur Leukocyte Esterase Urine WBC (Auto) Urine RBC (Auto) 08/10/19 08/10/19 08/10/19 03:57 07:16 07:45 WBC 21.3 H RBC 5.01 Hgb 15.0 D Hct 45.2 MCV 90 MCH 29.8 MCHC 33.1 RDW 15.8 H Plt Count 418 Sodium 136.6 L Potassium 4.8 Chloride 101 Carbon Dioxide 26 Anion Gap 10 BUN 31 H Creatinine 1.56 H Est GFR ( Amer) 56 L Glucose 99 Lactic Acid Calcium 8.4 Urine Color STRAW Urine Appearance CLEAR Urine pH 5.0 Ur Specific [place] 1.017 Urine Protein NEGATIVE Urine Glucose (UA) NEGATIVE Urine Ketones 100 H Urine Blood NEGATIVE Urine Nitrite NEGATIVE Ur Leukocyte Esterase NEGATIVE Urine WBC (Auto) 0 Urine RBC (Auto) 0 08/09/19 08/09/19 16:33 18:03 Troponin I 0.044 0.052 Impressions: Acute Abdomen Series 08/09/19 16:14 IMPRESSION: NO RADIOGRAPHIC EVIDENCE FOR ACUTE ABDOMINAL DISEASE. Assessment and Plan - Diagnosis (1) Dehydration Is this a current diagnosis for this admission?: Yes Plan: Resolved (2) Nausea and vomiting Qualifiers: Vomiting type: unspecified Vomiting Intractability: non-intractable Qualified Code(s): R11.2 - Nausea with vomiting, unspecified Is this a current diagnosis for this admission?: Yes Plan: Resolved. He said what he ate for much was more than what he ate in about 3 days (3) HTN (hypertension) Qualifiers: Hypertension type: essential hypertension Qualified Code(s): I10 - Essential (primary) hypertension Is this a current diagnosis for this admission?: Yes Plan: Controlled with home medications (4) Hypoxemia Is this a current diagnosis for this admission?: Yes Plan: I suspect at baseline he probably tends to run a little bit towards the low end of normal. I put him back on 2 L per nasal cannula. We will can leave his fluids off overnight and recheck him in the morning. He does have some clubbing of his fingers and so I do not know if that makes any difference in his SPO2 reading. If he is low again tomorrow, we should probably check a room air blood gas. - Time Time Spent with patient: 15-24 minutes - Plan Summary Plan Summary: If his hypoxemia resolved he can go home
[2019-08-11] MEDS: HEPARIN SOD (PORCINE) 5,000 UNIT/ML 1 ML VIAL SUBCUT SCH ×3 (05:06→21:40)
[2019-08-11 05:24] LABS: ANION GAP 5 (5-19); BLOOD UREA NITROGEN 28 mg/dL (7-20); CALCIUM 8.9 mg/dL (8.4-10.2); CARBON DIOXIDE 28 mmol/L (22-30); CHLORIDE 103 mmol/L (98-107); GLUCOSE 103 mg/dL (75-110); POTASSIUM 4.7 mmol/L (3.6-5.0)
[2019-08-11 08:36] LABS: HEMATOCRIT 43.1 % (37.9-51.0); MEAN CORPUSCULAR HEMOGLOBIN 29.9 pg (27.0-33.4); MEAN CORPUSCULAR HGB CONC 32.6 g/dL (32.0-36.0); MEAN CORPUSCULAR VOLUME 92 fl (80-97); PLATELET COUNT 390 10^3/uL (150-450); RED BLOOD COUNT 4.69 10^6/uL (4.35-5.55); RED CELL DISTRIBUTION WIDTH 16.1 % (11.5-14.0); WHITE BLOOD COUNT 17.8 10^3/uL (4.0-10.5)
--- NOTE | 2019-08-11 09:28 | PDOC PROGRESS REPORT ---
Subjective Progress Note for:: 08/11/19 Subjective:: Patient was seen and examined. He is still on nasal cannula oxygen. No nausea or vomiting. He thinks his throat is swollen from coughing and cannot swallow well. His kidney function is improving. His white count is decreasing. Reason For Visit: DEHYDRATION, ACUTE ON CHRONIC KIDNEY INJURY, N/V Physical Exam Vital Signs: Temp Pulse Resp BP Pulse Ox 97.7 F 87 16 118/75 98 08/11/19 08:11 08/11/19 08:11 08/11/19 08:11 08/11/19 08:11 08/11/19 08:11 Intake & Output 08/10/19 08/11/19 08/12/19 06:59 06:59 06:59 Intake Total 3123 2516 Balance 3123 2516 Weight 126 lb 12.253 oz 129 lb 6.581 oz Exam: Patient is no acute distress Alert oriented to time place person No anxiety or depression Head: atraumatic normocephalic Pupils: are equal reactive Neck: is supple and trachea is central no lymphadenopathy No pharyngeal erythema or exudates Heart: Regular rate and rhythm Lungs: clear no distress Abdomen: nontender nondistended Neurological exam: unremarkable Musculoskeletal: No joint swelling or effusion chronic lower back pain and tenderness No suicidal or homicidal ideation Results Laboratory Results: 08/11/19 04:29 08/11/19 04:29 08/11/19 08/11/19 04:29 04:29 WBC 17.8 H RBC 4.69 Hgb 14.0 Hct 43.1 MCV 92 MCH 29.9 MCHC 32.6 RDW 16.1 H Plt Count 390 Sodium 136.2 L Potassium 4.7 Chloride 103 Carbon Dioxide 28 Anion Gap 5 BUN 28 H Creatinine 1.32 H Est GFR ( Amer) > 60 Glucose 103 Calcium 8.9 08/09/19 08/09/19 16:33 18:03 Troponin I 0.044 0.052 Impressions: Acute Abdomen Series 08/09/19 16:14 IMPRESSION: NO RADIOGRAPHIC EVIDENCE FOR ACUTE ABDOMINAL DISEASE. Status: Image reviewed by me Assessment and Plan - Diagnosis (1) Dehydration Is this a current diagnosis for this admission?: Yes Plan: Resolved (2) Hypoxemia Is this a current diagnosis for this admission?: Yes Plan: no history of COPD. Patient is to be a heavy smoker. This could be his baseline. Will titrate down oxygen and monitor. (3) Nausea and vomiting Qualifiers: Vomiting type: unspecified Vomiting Intractability: non-intractable Qualified Code(s): R11.2 - Nausea with vomiting, unspecified Is this a current diagnosis for this admission?: Yes Plan: Resolved. (4) HTN (hypertension) Qualifiers: Hypertension type: essential hypertension Qualified Code(s): I10 - Essential (primary) hypertension Is this a current diagnosis for this admission?: Yes Plan: Controlled without medications (5) Renal failure Qualifiers: Renal failure chronicity: acute on chronic Is this a current diagnosis for this admission?: Yes Plan: Most likely due to dehydration. Currently improving. Continue to monitor. He was telling me that he is so a physician a month ago and was told that he has kidney function of 40%. (6) Dysphasia Is this a current diagnosis for this admission?: Yes Plan: We will ask for swallow eval.
[2019-08-11 10:39] LABS: ANION GAP 7 (5-19); BLOOD UREA NITROGEN 30 mg/dL (7-20); CALCIUM 9.1 mg/dL (8.4-10.2); CARBON DIOXIDE 28 mmol/L (22-30); CHLORIDE 101 mmol/L (98-107); GLUCOSE 98 mg/dL (75-110); POTASSIUM 4.7 mmol/L (3.6-5.0)
[2019-08-11] MEDS ORDERED: HYDRALAZINE HCL INJ/PF 20 MG/1 ML SDV IV PRN (22:37)
[2019-08-12] MEDS ORDERED: DIAZEPAM INJ 10 MG/2 ML DISP.SYRIN ONE (00:14)
[2019-08-12] MEDS ORDERED: DIAZEPAM INJ 10 MG/2 ML DISP.SYRIN IV ONE (01:15)
[2019-08-12 01:32] LABS: CREATINE KINASE MB 1.66 ng/mL (<4.55); TROPONIN I 0.026 ng/mL
[2019-08-12] MEDS: HEPARIN SOD (PORCINE) 5,000 UNIT/ML 1 ML VIAL SUBCUT SCH ×3 (06:53→21:50)
--- NOTE | 2019-08-12 07:18 | EKG REPORT ---
SEVERITY:- ABNORMAL ECG - SINUS TACHYCARDIA WITH VERY FREQ PACS. VENTRICULAR PREMATURE COMPLEX LEFT ANTERIOR FASCICULAR BLOCK PROBABLE LVH WITH SECONDARY REPOL ABNRM ANTERIOR Q WAVES, POSSIBLY DUE TO LVH PROLONGED QT INTERVAL : Confirmed by: Dandy Pickard MD 12-Aug-2019 07:17:16
[2019-08-12 08:05] LABS: HEMATOCRIT 43.1 % (37.9-51.0); HEMOGLOBIN 14.2 g/dL (13.5-17.0); MEAN CORPUSCULAR HEMOGLOBIN 29.8 pg (27.0-33.4); MEAN CORPUSCULAR VOLUME 90 fl (80-97); PLATELET COUNT 456 10^3/uL (150-450); RED BLOOD COUNT 4.78 10^6/uL (4.35-5.55); RED CELL DISTRIBUTION WIDTH 15.7 % (11.5-14.0); WHITE BLOOD COUNT 17.9 10^3/uL (4.0-10.5)
[2019-08-12 08:21] LABS: ANION GAP 12 (5-19); BLOOD UREA NITROGEN 26 mg/dL (7-20); CALCIUM 9.5 mg/dL (8.4-10.2); CARBON DIOXIDE 24 mmol/L (22-30); CHLORIDE 100 mmol/L (98-107); CREATINE KINASE 46 U/L (55-170); GLUCOSE 113 mg/dL (75-110); POTASSIUM 4.6 mmol/L (3.6-5.0)
[2019-08-12 08:32] LABS: CREATINE KINASE MB 1.88 ng/mL (<4.55); TROPONIN I 0.061 ng/mL
[2019-08-12] MEDS: BENZOCAINE/MENTHOL SORE THROAT LOZENGE BUCCAL PRN (09:11)
--- NOTE | 2019-08-12 13:49 | PDOC PROGRESS REPORT ---
Subjective Progress Note for:: 08/12/19 Subjective:: 08/11: Patient was seen and examined. He is still on nasal cannula oxygen. No nausea or vomiting. He thinks his throat is swollen from coughing and cannot swallow well. His kidney function is improving. His white count is decreasing. 08/12: Patient was seen and examined. He is feeling better. Denies nausea or vomiting. He says he is eating more and feeling a lot better. His creatinine has improved today to 1.21. His white count also decreased from admission but still elevated at 17.9. His blood cultures positive gram-positive cocci in clusters. He is afebrile. Reason For Visit: DEHYDRATION, ACUTE ON CHRONIC KIDNEY INJURY, N/V Physical Exam Vital Signs: Temp Pulse Resp BP Pulse Ox 98.2 F 95 19 145/105 H 100 08/12/19 12:17 08/12/19 12:17 08/12/19 12:17 08/12/19 12:17 08/12/19 12:17 Intake & Output 08/11/19 08/12/19 08/13/19 06:59 06:59 06:59 Intake Total 2516 940 Balance 2516 940 Weight 129 lb 6.581 oz 129 lb 10.109 oz Exam: Patient is no acute distress Alert oriented to time place person No anxiety or depression Head: atraumatic normocephalic Pupils: are equal reactive Neck: is supple and trachea is central no lymphadenopathy No pharyngeal erythema or exudates Heart: Regular rate and rhythm Lungs: clear no distress Abdomen: nontender nondistended Neurological exam: unremarkable Musculoskeletal: No joint swelling or effusion chronic lower back pain and tenderness No suicidal or homicidal ideation Results Laboratory Results: 08/12/19 07:42 08/12/19 07:42 08/12/19 08/12/19 07:42 07:42 WBC 17.9 H RBC 4.78 Hgb 14.2 Hct 43.1 MCV 90 MCH 29.8 MCHC 33.0 RDW 15.7 H Plt Count 456 H Sodium 136.1 L Potassium 4.6 Chloride 100 Carbon Dioxide 24 Anion Gap 12 BUN 26 H Creatinine 1.21 Est GFR ( Amer) > 60 Glucose 113 H Calcium 9.5 08/09/19 08/09/19 08/12/19 16:33 18:03 00:47 Creatine Kinase 55 CK-MB (CK-2) Troponin I 0.044 0.052 08/12/19 08/12/19 08/12/19 00:47 07:42 07:42 Creatine Kinase 46 L CK-MB (CK-2) 1.66 1.88 Troponin I 0.026 0.061 Impressions: Acute Abdomen Series 08/09/19 16:14 IMPRESSION: NO RADIOGRAPHIC EVIDENCE FOR ACUTE ABDOMINAL DISEASE. Assessment and Plan - Diagnosis (1) Dehydration Is this a current diagnosis for this admission?: Yes Plan: Resolved (2) Hypoxemia Is this a current diagnosis for this admission?: Yes Plan: no history of COPD. Patient is to be a heavy smoker. This could be his baseline. continue to titrate down oxygen and monitor. (3) Nausea and vomiting Qualifiers: Vomiting type: unspecified Vomiting Intractability: non-intractable Qualified Code(s): R11.2 - Nausea with vomiting, unspecified Is this a current diagnosis for this admission?: Yes Plan: Resolved. (4) HTN (hypertension) Qualifiers: Hypertension type: essential hypertension Qualified Code(s): I10 - Essential (primary) hypertension Is this a current diagnosis for this admission?: Yes Plan: continue to monitor (5) Renal failure Qualifiers: Renal failure chronicity: acute on chronic Is this a current diagnosis for this admission?: Yes Plan: Most likely due to dehydration. Currently improving. Continue to monitor. He was telling me that he saw a physician a month ago and was told that he has kidney function of 40%. (6) Dysphasia Is this a current diagnosis for this admission?: Yes Plan: We will ask for swallow adonis. (7) Bacteremia Is this a current diagnosis for this admission?: Yes Plan: 1 of 2 blood cultures is positive for GPC in clusters. he doesn't look septic. follow up final results
[2019-08-12 14:18] LABS: ANION GAP 9 (5-19); BLOOD UREA NITROGEN 29 mg/dL (7-20); CALCIUM 9.9 mg/dL (8.4-10.2); CARBON DIOXIDE 28 mmol/L (22-30); CHLORIDE 99 mmol/L (98-107); GLUCOSE 164 mg/dL (75-110); POTASSIUM 4.5 mmol/L (3.6-5.0)
[2019-08-12 14:29] LABS: CREATINE KINASE MB 1.6 ng/mL (<4.55); TROPONIN I 0.043 ng/mL
[2019-08-13] MEDS: HEPARIN SOD (PORCINE) 5,000 UNIT/ML 1 ML VIAL SUBCUT SCH ×2 (05:23→14:26)
[2019-08-13 05:28] LABS: HEMATOCRIT 40.7 % (37.9-51.0); HEMOGLOBIN 13.4 g/dL (13.5-17.0); MEAN CORPUSCULAR HEMOGLOBIN 29.8 pg (27.0-33.4); MEAN CORPUSCULAR VOLUME 90 fl (80-97); PLATELET COUNT 442 10^3/uL (150-450); RED BLOOD COUNT 4.52 10^6/uL (4.35-5.55); RED CELL DISTRIBUTION WIDTH 15.6 % (11.5-14.0); WHITE BLOOD COUNT 14.5 10^3/uL (4.0-10.5)
--- NOTE | 2019-08-13 11:31 | PDOC DISCHARGE SUMMARY ---
General - Admit/Disc Date/PCP Admission Date/Primary Care Provider: 08/09/19 18:12 Venecia SU MD Discharge Date: 08/13/19 - Discharge Diagnosis (1) Dehydration Is this a current diagnosis for this admission?: Yes (2) Hypoxemia Is this a current diagnosis for this admission?: Yes (3) Nausea and vomiting Is this a current diagnosis for this admission?: Yes (4) HTN (hypertension) Is this a current diagnosis for this admission?: Yes (5) Renal failure Is this a current diagnosis for this admission?: Yes (6) Dysphasia Is this a current diagnosis for this admission?: Yes (7) Bacteremia Is this a current diagnosis for this admission?: Yes - Additional Information Resuscitation Status: Full Code Discharge Diet: As Tolerated Discharge Activity: Activity As Tolerated Home Medications: Albuterol Sulfate [Proair HFA Inhalation Aerosol 8.5 gm MDI] 2 puff IH Q4HP PRN 08/10/19 Omeprazole 40 mg PO Q6AM 08/10/19 History of Present Illness History of Present Illness: SHAHRZAD JAIN is a 58 year old male who does not know his primary care provider's name but says he goes to [facility], who presents with nausea vomiting. He said he was in his usual state of health until about 2 AM this morning, at which time he woke up and started vomiting violently. He said after vomiting a few times his chest would hurt whenever he heaved but otherwise he was not having any pain. He denies any pain at this time. He did not have any diarrhea. He has not been around anyone he knows to be sick. He said he consider driving himself to the emergency department but he felt like he was too sick so he called EMS. He has not had any change in his medications. He does not have any fever that he knows of. He said he tried to take his blood pressure medicine but he threw it back up. He tried to drink water a couple of other times but he threw that back up as well. He has some chronic kidney disease and has had a little bit of an elevation in his baseline creatinine. He is being admitted for IV fluids and nausea control Hospital Course Hospital Course: (1) Dehydration Resolved (2) Hypoxemia no history of COPD. Patient is to be a heavy smoker. This could be his baseline. continue to titrate down oxygen and monitor. (3) Nausea and vomiting Resolved. (4) HTN (hypertension) continue to monitor (5) Renal failure Most likely due to dehydration. Improved and back to baseline. He was telling me that he saw a physician a month ago and was told that he has kidney function of 40%. (6) Dysphasia Resolved and he is eating well now. (7) Bacteremia 1 of 2 blood cultures is positive for coag negative staph. Patient did not receive any antibiotics. His white count is actually improving. He does not look septic. Most likely pseudo-bacteremia. Stable for discharge. Will check for qualification of oxygen at home prior to discharge. Physical Exam Vital Signs: Temp Pulse Resp BP Pulse Ox 97.9 F 93 16 134/84 H 100 08/13/19 08:04 08/13/19 08:04 08/13/19 08:04 08/13/19 08:04 08/13/19 08:04 Intake & Output 08/12/19 08/13/19 08/14/19 06:59 06:59 06:59 Intake Total 940 1837 Output Total 350 Balance 940 1487 Weight 129 lb 10.109 oz 128 lb 8.472 oz Exam: Patient is no acute distress Alert oriented to time place person No anxiety or depression Head: atraumatic normocephalic Pupils: are equal reactive Neck: is supple and trachea is central no lymphadenopathy No pharyngeal erythema or exudates Heart: Regular rate and rhythm Lungs: clear no distress Abdomen: nontender nondistended Neurological exam: unremarkable Musculoskeletal: No joint swelling or effusion chronic lower back pain and tenderness No suicidal or homicidal ideation Results Laboratory Results: 08/13/19 04:44 08/12/19 13:24 08/12/19 08/13/19 13:24 04:44 WBC 14.5 H RBC 4.52 Hgb 13.4 L Hct 40.7 MCV 90 MCH 29.8 MCHC 33.0 RDW 15.6 H Plt Count 442 Sodium 136.2 L Potassium 4.5 Chloride 99 Carbon Dioxide 28 Anion Gap 9 BUN 29 H Creatinine 1.23 Est GFR ( Amer) > 60 Glucose 164 H Calcium 9.9 08/09/19 08/09/19 08/12/19 16:33 18:03 00:47 Creatine Kinase 55 CK-MB (CK-2) Troponin I 0.044 0.052 08/12/19 08/12/19 08/12/19 00:47 07:42 07:42 Creatine Kinase 46 L CK-MB (CK-2) 1.66 1.88 Troponin I 0.026 0.061 08/12/19 08/12/19 13:24 13:24 Creatine Kinase 34 L CK-MB (CK-2) 1.60 Troponin I 0.043 Impressions: Acute Abdomen Series 08/09/19 16:14 IMPRESSION: NO RADIOGRAPHIC EVIDENCE FOR ACUTE ABDOMINAL DISEASE. Qualifiers - * PATIENT BEING DISCHARGED WITH ANY OF THE FOLLOWING DIAGNOSIS: No Acute Heart Failure - Is this a Heart Failure Patient?: No Plan Discharge Plan: 32 minutes Time Spent: Greater than 30 Minutes
[2019-08-13 13:11] VITALS: BP 133/87
== END 2019-08-13 14:20 | disposition home or self-care (01) | DRG 641 ==
LOC: ER 15:57 → EH 18:12 → 4N 20:40
PROVIDERS: ADMIT Family Medicine; ATTEND Family Medicine
DX: E86.0 Dehydration (principal); N17.9 Acute kidney failure, unspecified; R78.81 Bacteremia; K52.9 Noninfective gastroenteritis and colitis, unspecified; N18.9 Chronic kidney disease, unspecified; I12.9 Hypertensive chronic kidney disease with stage 1 through stage 4 chronic kidney disease, or unspecified chronic kidney disease; R09.02 Hypoxemia; R13.10 Dysphagia, unspecified; Z87.891 Personal history of nicotine dependence; Z79.899 Other long term (current) drug therapy; Z88.8 Allergy status to other drugs, medicaments and biological substances
CPT/HCPCS: 36415; 74022; 80048; 80053; 81001; 82550; 82553; 83605; 83690; 84484; 85025; 85027; 87040; 87077; 87186; 93005; 93010; 94640; 99285; J0360; J2405; J3360; J7030; J7620

== ENCOUNTER → 2019-08-26 | Outpatient (CLI) | payer MEDICAID ==
--- NOTE | 2019-08-26 15:32 | RADIOLOGY REPORT (SQ) ---
EXAM DESCRIPTION: CAROTID DOPPLER COMPLETED DATE/TIME: 08/26/2019 3:23 pm REASON FOR STUDY: BRUIT R09.89 OT SYMPTOMS AND SIGNS INVOLVING THE CIRC AND RESP SY COMPARISON: 08/24/2014 TECHNIQUE: Grayscale ultrasound, Doppler velocity and spectra, and color Doppler images acquired of the extra-cranial carotid and vertebral arteries. Images stored on PACS. LIMITATIONS: None. FINDINGS: RIGHT CAROTID CCA Velocities: Within normal limits. ICA Velocities Peak systolic 0.73 m/s. End diastolic 0.34 m/s. Proximal ICA/CCA peak systolic ratio 1.21. No significant plaque. LEFT CAROTID CCA Velocities: Within normal limits. ICA Velocities Peak systolic 0.92 m/s. End diastolic 0.31 m/s. Proximal ICA/CCA peak systolic ratio 1.21. There is a small amount of complex plaque in the left carotid bulb. VERTEBRAL ARTERIES: Antegrade flow in the left vertebral artery. Retrograde flow in the right verteb ral artery. SUBCLAVIAN ARTERIES: No finding. OTHER: No other significant finding. IMPRESSION: 1. No hemodynamically significant stenosis. 2. Retrograde flow in the right vertebral artery. This is new from prior study. COMMENT: Quality ID #[id number]: Velocity criteria are extrapolated from the diameter data as defined by t he Society of Radiologists in Ultrasound Consensus Conference. Radiology 2003: 229; 340-346. TECHNICAL DOCUMENTATION: JOB ID: [id number] [employer]- All Rights Reserved Reading location - IP/workstation name: [email or web address]
== END ==
LOC: SP 14:07
PROVIDERS: ATTEND Internal Medicine Nephrology
DX: N17.9 Acute kidney failure, unspecified (principal); N18.2 Chronic kidney disease, stage 2 (mild); R09.89 Other specified symptoms and signs involving the circulatory and respiratory systems
CPT/HCPCS: 93880

== ENCOUNTER 2019-08-28 12:31 | Emergency (ER) | payer MEDICAID ==
[2019-08-28 12:42] VITALS: BP 120/78
--- NOTE | 2019-08-28 13:03 | ER Document Report ---
HPI - HPI Time Seen by Provider: 08/28/19 12:50 Notes: Patient is a 58-year-old male with no significant past medical history who presents complaining of left ear pain that will occasionally radiate into his neck/jaw ongoing for the past couple days. Patient states that his left ear feels like it needs to "pop" and then he will feel better. Patient states that he has nasal congestion/discharge, sneezing, sore throat over the past 3 days. He was seen by his family doctor yesterday and was prescribed antibiotics for strep throat. He has no other concerns or complaints. He is able to eat and drink without difficulty. He is urinating normally. Denies any headache, fever, neck pain, chest pain, palpitations, syncope, cough, shortness of breath, wheeze, dyspnea, abdominal pain, nausea/vomiting/diarrhea, urinary retention, dysuria, hematuria, or rash. 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 Denies: Hx Pacemaker - Immunizations Immunizations up to date: Yes Hx Diphtheria, Pertussis, Tetanus Vaccination: Yes Hx Pneumococcal Vaccination: 08/25/18 Vertical Provider Document - CONSTITUTIONAL Agree With Documented VS: Yes Notes: PHYSICAL EXAMINATION: GENERAL: Well-appearing, well-nourished and in no acute distress. A&Ox4. Answers questions appropriately. Moves comfortably w/o notable distress HEAD: Atraumatic, normocephalic. EYES: Pupils equal round and reactive to light, extraocular movements intact, sclera anicteric, conjunctiva are normal. ENT: EAC clear b/l. TM's intact b/l without erythema, fluid, or perforation. Nares patent and with clear discharge. oropharynx no erythema without exudates. No tonsilar hypertrophy without erythema or exudate. No palatine shift. Uvula midline. No tongue protrusion. No drooling, hoarseness, or airway compromise. Moist mucous membranes. No sinus tenderness. NECK: Normal range of motion, supple without lymphadenopathy. No rigidity/meningismus. LUNGS: Breath sounds clear to auscultation bilaterally and equal. No wheezes rales or rhonchi. No retractions HEART: Regular rate and rhythm without murmurs, rubs, gallops. NEUROLOGICAL: Normal speech, normal gait. PSYCH: Normal mood, normal affect. SKIN: Warm, Dry, normal turgor, no rashes or lesions noted. - INFECTION CONTROL TRAVEL OUTSIDE OF THE [place] IN LAST 30 DAYS: No Course - Re-evaluation Re-evalutation: 08/28/19 13:00 Patient is an afebrile, well-hydrated, 58-year-old male who presents with left otalgia, suspect eustachian tube dysfunction in the setting of URI. Vitals are acceptable without significant tachycardia, tachypnea, or hypoxia. PE is otherwise unremarkable. Patient is nontoxic-appearing and is tolerating p.o. without difficulty. Patient is on antibiotics for his strep. Reviewed conservative measures to help with eustachian tube. Low suspicion for any meningitis, sepsis, peritonsillar/pharyngeal abscess, respiratory compromise, Nir's, or other emergent systemic condition at this time. Patient is aware this condition can change from initial presentation and she needs to monitor symptoms closely. Conservative measures otherwise for symptoms. Recheck with your PCM in 2-3 days. Return to the ED with any worsening/concerning symptoms otherwise as reviewed in discharge. Patient is in agreement. - Vital Signs Vital signs: Temp Pulse Resp BP Pulse Ox 97.9 F 97 18 120/78 94 08/28/19 12:42 08/28/19 12:42 08/28/19 12:42 08/28/19 12:42 08/28/19 12:42 Discharge - Discharge Clinical Impression: Acute URI Eustachian tube dysfunction Qualifiers: Laterality: left Qualified Code(s): H69.82 - Other specified disorders of Eustachian tube, left ear Condition: Stable Disposition: HOME, SELF-CARE Additional Instructions: Maintain adequate fluid intake Avoid use of Q-tips tylenol/ibuprofen as needed alternating every 3 hours for fever/body ache over the counter cold medication as needed for symptoms (i.e. nasal saline rinses, Mucinex, Sudafed, Afrin nose spray) only use afrin for <5 days Humidified air may help Wash your hands regularly Wear a mask when coughing F/u: with your PCM in 2-3 days for a recheck Return to the ED with any fever, altered mental status/behavior, chest pain, palpitations, syncope, headache, neck pain/stiffness, shortness of breath, chest pains, wheezing, drooling, trouble swallowing/breathing, abdominal pain, n/v/d, rash, or worsening/concerning symptoms otherwise. Referrals: Venecia SU MD [Primary Care Provider] - Follow up as needed
== END 2019-08-28 13:05 | disposition home or self-care (01) ==
LOC: ER 12:31
DX: J06.9 Acute upper respiratory infection, unspecified (principal); H69.82 Other specified disorders of Eustachian tube, left ear; M54.2 Cervicalgia; H92.02 Otalgia, left ear; R09.81 Nasal congestion; R09.89 Other specified symptoms and signs involving the circulatory and respiratory systems; R06.7 Sneezing; J02.9 Acute pharyngitis, unspecified; Z87.891 Personal history of nicotine dependence; I10 Essential (primary) hypertension; J44.9 Chronic obstructive pulmonary disease, unspecified
CPT/HCPCS: 99282

== ENCOUNTER 2020-03-14 16:15 | Inpatient (IN) | payer MEDICAID ==
[2020-03-14] MEDS ORDERED: ADENOSINE INJ/PF 6 MG/2 ML SDV IV ONE ×2 (16:21→18:02)
[2020-03-14] MEDS ORDERED: DILTIAZEM HCL INJ 25 MG/5 ML VIAL ONE (16:27)
[2020-03-14] MEDS ORDERED: DILTIAZEM HCL/D5W 125 MG/125 ML RTUINJ IV ONE (16:29)
[2020-03-14 17:42] LABS: ABSOLUTE BASOPHILS # (AUTO) 0.1 10^3/uL (0.0-0.2); ABSOLUTE LYMPHOCYTES (AUTO) 1.4 10^3/uL (0.5-4.7); ABSOLUTE MONOCYTES (AUTO) 0.9 10^3/uL (0.1-1.4); ABSOLUTE NEUT (AUTO) 7.5 10^3/uL (1.7-8.2); ALBUMIN 4.4 g/dL (3.5-5.0); ALKALINE PHOSPHATASE 150 U/L (38-126); ANION GAP 13 (5-19); ASPARTATE AMINO TRANSFERASE 34 U/L (17-59); BASOPHILS % (AUTO) 0.9 % (0-2); BILIRUBIN,DIRECT 0.6 mg/dL (0.0-0.4); BILIRUBIN,TOTAL 1.4 mg/dL (0.2-1.3); BLOOD UREA NITROGEN 15 mg/dL (7-20); CALCIUM 9.2 mg/dL (8.4-10.2); CARBON DIOXIDE 24 mmol/L (22-30); CHLORIDE 101 mmol/L (98-107); EOSINOPHILS % (AUTO) 0.2 % (0-6); GLUCOSE 94 mg/dL (75-110); HEMATOCRIT 46.9 % (37.9-51.0); HEMOGLOBIN 15.1 g/dL (13.5-17.0); LYMPHOCYTES % (AUTO) 13.9 % (13-45); MEAN CORPUSCULAR HEMOGLOBIN 29.2 pg (27.0-33.4); MEAN CORPUSCULAR HGB CONC 32.3 g/dL (32.0-36.0); MEAN CORPUSCULAR VOLUME 91 fl (80-97); MONOCYTES % (AUTO) 9.4 % (3-13); PLATELET COUNT 265 10^3/uL (150-450); POTASSIUM 4.4 mmol/L (3.6-5.0); RED BLOOD COUNT 5.18 10^6/uL (4.35-5.55); RED CELL DISTRIBUTION WIDTH 16.9 % (11.5-14.0); SEGMENTED NEUTROPHILS % (AUTO) 75.6 % (42-78); TOTAL CELLS COUNTED % (AUTO) 100 %; WHITE BLOOD COUNT 9.8 10^3/uL (4.0-10.5)
[2020-03-14] MEDS ORDERED: METOPROLOL TARTRATE PF/INJ 5 MG/5 ML SDV IV ONE ×4 (18:01→19:36)
[2020-03-14] MEDS ORDERED: DILTIAZEM HCL INJ 25 MG/5 ML VIAL IV ONE (18:01)
--- NOTE | 2020-03-14 18:08 | RADIOLOGY REPORT (SQ) ---
EXAM DESCRIPTION: CHEST SINGLE VIEW IMAGES COMPLETED DATE/TIME: 03/14/2020 5:27 pm REASON FOR STUDY: sob COMPARISON: 04/21/2019. 08/09/2019. NUMBER OF VIEWS: One view. TECHNIQUE: Single frontal radiographic view of the chest acquired. LIMITATIONS: External life-support artifacts. FINDINGS: LUNGS AND PLEURA: Abnormal opacity in the right lung includes right basilar pleural reacti on and adjacent airspace disease. Mild increased perihilar interstitial markings also noted. Left l yoselyn relatively clear. MEDIASTINUM AND HILAR STRUCTURES: Patient has had median sternotomy since prior. Contours otherwise stable. HEART AND VASCULAR STRUCTURES: Heart size looks accentuated, possibly due to portable technique. BONES: No acute findings. HARDWARE: Left IJ line. OTHER: No other significant finding. IMPRESSION: 1. Abnormal appearance of the chest. Extensive pleuroparenchymal changes as described. Since the pr ior from last year, patient has also had surgery. If clinically warranted, further evaluation with c hest CT may help to better evaluate the lung changes. TECHNICAL DOCUMENTATION: JOB ID: [id number] 2010 [employer]- All Rights Reserved Reading location - IP/workstation name: [email or web address]
--- NOTE | 2020-03-14 18:22 | PDOC CONSULTATION ---
Consultation Consult Date: 03/14/20 Attending physician:: SUJIT LOPEZ Provider Consulted: ROLANDO CHENG Consult reason:: Tachycardia History of Present Illness Admission Date/PCP: KELSY ZIMMER Patient complains of: Palpitations, respiratory distress History of Present Illness: SHAHRZAD JAIN is a 59 year old male With the following active problems 1. 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 Pulmonary hypertension 3. Congestive heart failure 4. Paroxysmal supraventricular tachycardia 5. End-stage renal disease on hemodialysis 6. PEA arrest Patient is not a great historian. Review of records available from the nephrology office notes problems as above. He had a complicated medical course lately with multiple episodes of PEA and supraventricular tachycardia. The PEA episodes requiring external change compressions and resuscitation. This was probably related to hypoxic respiratory failure and ischemic insults. No arrhythmic etiology for arrest is reported. Past medical history 1. Rheumatic mitral valve stenosis 2. Mechanical mitral valve-median sternotomy (11/13/2017) 3. Systemic hypertension 4. End-stage renal disease-hemodialysis 5. Ugkg-Yada-Xhcgmws disease Surgical history includes right total hip arthroplasty as well as mitral valve replacement with cardiopulmonary bypass October 2017. Patient is in respiratory distress and is not able to answer much questions. Family history is not obtained. Smoking status is not obtained. Past Medical History Cardiac Medical History: Reports: Hypertension Pulmonary Medical History: Reports: Chronic Obstructive Pulmonary Disease (COPD) Denies: Tuberculosis Neurological Medical History: Reports: Seizures - LAST 5 YR AGO Past Surgical History Past Surgical History: Reports: Orthopedic Surgery - hip, arm Denies: Pacemaker Social History Smoking Status: Former Smoker Frequency of Alcohol Use: Rare Hx Recreational Drug Use: No Drugs: None Hx Prescription Drug Abuse: No Family History Family History: Reviewed & Not Pertinent Parental Family History Reviewed: No - Unable to obtain due to respiratory distress Children Family History Reviewed: NA Sibling(s) Family History Reviewed.: NA Medication/Allergy Home Medications: Albuterol Sulfate [Proair HFA Inhalation Aerosol 8.5 gm MDI] 2 puff IH Q4HP PRN 08/10/19 Omeprazole 40 mg PO Q6AM 08/10/19 Allergies/Adverse Reactions: metoprolol tartrate [From Lopressor] Adverse Reaction (Verified 08/28/19 13:05) Generalized rash Review of Systems ROS unobtainable: Other - Limited review of systems is obtained due to respiratory status and patient being on BiPAP. Cardiovascular: PRESENT: palpitations Respiratory: PRESENT: dyspnea Physical Exam Vital Signs: Temp Pulse Resp BP Pulse Ox 25 H 96 03/14/20 17:18 03/14/20 17:18 Intake & Output 03/13/20 03/14/20 03/15/20 06:59 06:59 06:59 Weight 55.7 kg General appearance: PRESENT: cooperative, mild distress, thin Head exam: PRESENT: atraumatic, normocephalic Eye exam: PRESENT: EOMI Mouth exam: PRESENT: moist Neck exam: PRESENT: JVD Respiratory exam: PRESENT: crackles, decreased breath sounds, prolonged expiratory phas, symmetrical Cardiovascular exam: PRESENT: irregular rhythm, +S1, +S2 Pulses: PRESENT: normal radial pulses GI/Abdominal exam: PRESENT: soft Rectal exam: PRESENT: deferred Musculoskeletal exam: PRESENT: normal inspection Neurological exam: PRESENT: alert, oriented to person, oriented to place, oriented to time Psychiatric exam: PRESENT: appropriate affect Skin exam: PRESENT: intact - Midline sternotomy scar noted. Laparotomy scar noted Left upper chest wall hemodialysis ports noted healed surgical incision with sutures noted on the right side of chest in the anterior axillary line Results Laboratory Results: 03/14/20 16:22 03/14/20 16:22 03/14/20 03/14/20 16:22 16:22 WBC 9.8 RBC 5.18 Hgb 15.1 Hct 46.9 MCV 91 MCH 29.2 MCHC 32.3 RDW 16.9 H Plt Count 265 Seg Neutrophils % 75.6 Sodium 137.8 Potassium 4.4 Chloride 101 Carbon Dioxide 24 Anion Gap 13 BUN 15 Creatinine 1.40 H Est GFR ( Amer) > 60 Glucose 94 Calcium 9.2 Magnesium 2.0 Total Bilirubin 1.4 H AST 34 Alkaline Phosphatase 150 H Total Protein 8.0 Albumin 4.4 03/14/20 16:22 Troponin I 0.020 EKG Comments: Twelve-lead EKG 03/14/2020. Independently reviewed by me. Probable atrial fibrillation with rapid ventricular response at 159 bpm. Impressions: Chest X-Ray 03/14/20 17:18 IMPRESSION: 1. Abnormal appearance of the chest. Extensive pleuroparenchymal changes as described. Since the prior from last year, patient has also had surgery. If clinically warranted, further evaluation with chest CT may help to better evaluate the lung changes. Status: Image reviewed by me - Chest x-ray reviewed shows postsurgical changes, sternotomy wires, possible injectable loop recorder, left internal jugular hemo dialysis catheter, extensive lung parenchymal changes, mitral valve ring Assessment & Plan - Diagnosis (1) Atrial fibrillation Is this a current diagnosis for this admission?: Yes Plan: Probable atrial fibrillation rapid ventricular response on initial EKG. Although given regularity of rate this could also be atrial flutter-atypical though Would recommend rate control with small aliquots of intravenous metoprolol at 2.5 to 5 mg every 3-4 hours based on blood pressure. Prior echocardiogram done in hospital in 2019 is suggestive of preserved ejection fraction Not sure about patient's anticoagulation status. If patient continues to be in atrial arrhythmia this will be necessary. Transition to oral metoprolol for rate control at the moment (2) ESRD (end stage renal disease) on dialysis Is this a current diagnosis for this admission?: Yes Plan: Established with dialysis Continue dialysis - Notes Notes: Presentation with atrial fibrillation/atypical flutter with good response to intravenous metoprolol BiPAP helped probably by reducing filling pressures We will continue for relief of symptoms and for better control of arrhythmia. May require systemic anticoagulation
--- NOTE | 2020-03-14 18:34 | ER Document Report ---
ED Cardiac - General Chief Complaint: Arrhythmia Stated Complaint: BREATHING DIFFICULTY Time Seen by Provider: 03/14/20 16:39 Primary Care Provider: ANASTACIO CHACKO FNP-C [Primary Care Provider] - Follow up as needed Mode of Arrival: Medic Information source: Patient, Emergency Med Personnel TRAVEL OUTSIDE OF THE [place] IN LAST 30 DAYS: No - HPI Notes: Patient arrives by ambulance with a complaint of shortness of breath. Patient is a tough historian and not able to communicate his recent medical history very well. In reviewing old records and talking with consultants it appears that patient recently was discharged from [facility] after a mitral valve replacement. He was on dialysis there as well. He has continued dialysis since he is been discharged from [facility]. Today when he was at dialysis he completed a full run but began to complain of shortness of breath. He was noticed to have a rapid heart rate and therefore transferred to the emergency department. On arrival patient is complains of severe shortness of breath. It is worse with exertion and better with rest. There is no known radiation of the symptoms. The symptoms are severe and constant. Patient has had no known recent fevers vomiting or diarrhea. No known recent exposures to the coronavirus. - Related Data Allergies/Adverse Reactions: metoprolol tartrate [From Lopressor] Adverse Reaction (Verified 08/28/19 13:05) Generalized rash Past Medical History - General Information source: Patient, [facility] Records - Social History Smoking Status: Former Smoker Frequency of alcohol use: None Drug Abuse: None Family History: Reviewed & Not Pertinent Patient has suicidal ideation: No Patient has homicidal ideation: No - Past Medical History Cardiac Medical History: Reports: Hx Hypertension Pulmonary Medical History: Reports: Hx COPD Denies: Hx Tuberculosis Neurological Medical History: Reports: Hx Seizures - LAST 5 YR AGO Renal/ Medical History: Denies: Hx Peritoneal Dialysis GI Medical History: Reports: Hx Ulcer Musculoskeletal Medical History: 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 Denies: Hx Pacemaker - Immunizations Immunizations up to date: Yes Hx Diphtheria, Pertussis, Tetanus Vaccination: Yes Hx Pneumococcal Vaccination: 08/25/18 Review of Systems - Review of Systems Constitutional: Malaise, Weakness. denies: Chills, Fever Cardiovascular: Palpitations. denies: Chest pain Respiratory: Cough, Short of breath -: Yes All other systems reviewed and negative Physical Exam - Vital signs Vitals: Resp Pulse Ox 25 H 96 03/14/20 17:18 03/14/20 17:18 Interpretation: Hypertensive, Tachycardic, Tachypneic - General General appearance: Alert, Anxious In distress: Moderate - HEENT Head: Normocephalic, Atraumatic Eyes: Normal Pupils: PERRL - Respiratory Respiratory status: Respiratory distress Chest status: Nontender Breath sounds: Rales Chest palpation: Normal - Cardiovascular Rhythm: Irregularly irregular, Tachycardia Heart sounds: Normal auscultation Murmur: No - Abdominal Inspection: Normal Distension: No distension Bowel sounds: Normal Tenderness: Nontender Organomegaly: No organomegaly - Back Back: Normal, Nontender - Extremities General upper extremity: Normal inspection, Nontender, Normal color, Normal ROM, Normal temperature General lower extremity: Normal inspection, Nontender, Normal color, Normal ROM, Normal temperature, Normal weight bearing. No: Vamsi's sign - Neurological Cognition: Confused Orientation: Disoriented to time Kecia Coma Scale Eye Opening: Spontaneous Kecia Coma Scale Verbal: Confused Kecia Coma Scale Motor: Obeys Commands Kecia Coma Scale Total: 14 Speech: Normal Motor strength normal: LUE, RUE, LLE, RLE Sensory: Normal - Psychological Associated symptoms: Normal affect, Normal mood - Skin Skin Temperature: Warm Skin Moisture: Dry Skin Color: Normal Course - Re-evaluation Re-evalutation: 03/14/20 18:37 Patient arrived by EMS with respiratory distress and tachycardia. Initially adenosine was tried but would not break the supraventricular tachycardia. Cardi zem was then tried without success. Patient did respond metoprolol. In addition BiPAP was instituted which significantly helped the patient's shortness of breath. Patient is significantly more stable now. He is not tachypneic. His tachycardia is under control however his heart rate is still about 110. Subjectively states he feels much better. He continues to have an irregular rhythm that seems most consistent with an atrial fib/flutter - Vital Signs Vital signs: Temp Pulse Resp BP Pulse Ox 25 H 96 03/14/20 17:18 03/14/20 17:18 - Laboratory Result Diagrams: 03/14/20 16:22 03/14/20 16:22 Laboratory results interpreted by me: 03/14/20 03/14/20 16:22 16:22 RDW 16.9 H Creatinine 1.40 H Est GFR (MDRD) Non-Af 52 L Total Bilirubin 1.4 H Direct Bilirubin 0.6 H Alkaline Phosphatase 150 H - Diagnostic Test Radiology reviewed: Image reviewed, Reports reviewed - EKG Interpretation by Me Rate: Tachycardia - 159 Rhythm: A.Flutter [place]/QRS: LAHB/LAFB Critical Care Note - Critical Care Note Total time excluding time spent on procedures (mins): 55 Comments: Approximately 55 minutes of critical care time were spent managing this patient's tachycardia, abnormal rhythm, and shortness of breath. This time was spent in discussions with multiple consultants. It is spent reviewing old records. It was spent doing multiple reassessments. It is spent reviewing imaging and laboratories. Discharge - Discharge Clinical Impression: Abnormal EKG Condition: Serious Disposition: ADMITTED INPATIENT Admitting Provider: Harsh (Hospitalist) Unit Admitted: IMCU Referrals: ANASTACIO CHACKO FNP-C [Primary Care Provider] - Follow up as needed
[2020-03-14] MEDS ORDERED: ONDANSETRON HCL INJ/PF 4 MG/2 ML SDV IV PRN (18:38)
[2020-03-14] MEDS ORDERED: METOPROLOL TARTRATE PF/INJ 5 MG/5 ML SDV IV PRN (19:05)
--- NOTE | 2020-03-14 19:05 | PDOC H&P ---
History of Present Illness Admission Date/PCP: KELSY ZIMMER History of Present Illness: SHAHRZAD JAIN is a 59 year old male who is, in fact, a terrible historian. Dr. Shields saw him in the ER and was able to obtain the following information: "With the following active problems 1. 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 Pulmonary hypertension 3. Congestive heart failure 4. Paroxysmal supraventricular tachycardia 5. End-stage renal disease on hemodialysis 6. PEA arrest Patient is not a great historian. Review of records available from the nephrology office notes problems as above. He had a complicated medical course lately with multiple episodes of PEA and supraventricular tachycardia. The PEA episodes requiring external change compressions and resuscitation. This was probably related to hypoxic respiratory failure and ischemic insults. No arrhythmic etiology for arrest is reported. Past medical history 1. Rheumatic mitral valve stenosis 2. Mechanical mitral valve-median sternotomy (11/13/2017) 3. Systemic hypertension 4. End-stage renal disease-hemodialysis 5. Mdal-Ehix-Nybsvtd disease Surgical history includes right total hip arthroplasty as well as mitral valve replacement with cardiopulmonary bypass October 2017." Apparently the patient had another valvular procedure recently at [facility], within the last couple of months. This information was obtained from Dr. Godfrey. Che ilianatlrebecca when he was at [facility], he had to go on dialysis, and they could not get him off of it, so when he was sent home they arranged for him to follow-up with Dr. Godfrey for hemodialysis. Dr. Godfrey said he was not sure why he had to go on it in the first place, but he was thinking of de-escalating his dialysis treatments because his creatinine is so good. He was at dialysis today and had a full treatment, but said he got short of breath at the end of it. They checked his heart rate and it was really fast and so they sent him to the ER. In the ER he had a rapid heart rate, and Dr. Shields was consulted and felt like it was in atrial flutter. He had gotten a couple of doses of adenosine and that had not made a difference. He had gotten a couple of doses of diltiazem IV and that had not really had much of an effect either. Dr. Shields recommended giving him some IV metoprolol and putting him on BiPAP to help with some of the heart filling pressures in an attempt to help get his rate under control. The patient does not know why he is on dialysis. He does not know what his recent procedure was, just that it was on a heart valve. He does not remember his surgeon's name. He does not know who his crab fisher is. He does not know specifically that Dr. Godfrey is his purchasing internship. He does not know his primary care provider's name. He does not know what medications he takes. He said he writes everything down in his book at home, and his book is currently at home and he does not have anyone who can bring his book to him here at the hospital. Past Medical History Cardiac Medical History: Reports: Hypertension Pulmonary Medical History: Reports: Chronic Obstructive Pulmonary Disease (COPD) Denies: Tuberculosis Neurological Medical History: Reports: Seizures - LAST 5 YR AGO Past Surgical History Past Surgical History: Reports: Orthopedic Surgery - hip, arm Denies: Pacemaker Social History Smoking Status: Former Smoker Frequency of Alcohol Use: Rare Hx Recreational Drug Use: No Drugs: None Hx Prescription Drug Abuse: No Family History Family History: Reviewed & Not Pertinent Parental Family History Reviewed: No - Patient does not know Children Family History Reviewed: NA Sibling(s) Family History Reviewed.: No - Patient does not know Medication/Allergy Allergies/Adverse Reactions: metoprolol tartrate [From Lopressor] Adverse Reaction (Verified 03/14/20 18:54) Generalized rash Review of Systems All systems: reviewed and no additional remarkable complaints except as stated - All systems were reviewed and were negative except as noted in the HPI. Physical Exam Vital Signs: Temp Pulse Resp BP Pulse Ox 25 H 96 03/14/20 17:18 03/14/20 17:18 Intake & Output 03/13/20 03/14/20 03/15/20 06:59 06:59 06:59 Weight 55.7 kg General appearance: PRESENT: no acute distress, cooperative, disheveled, thin, other - Wearing BiPAP but looks comfortable Head exam: PRESENT: atraumatic, normocephalic Eye exam: PRESENT: EOMI, PERRLA. ABSENT: conjunctival injection, nystagmus, scleral icterus Ear exam: PRESENT: normal external ear exam Mouth exam: PRESENT: dry mucosa, neck supple Teeth exam: PRESENT: poor dentation Neck exam: PRESENT: full ROM. ABSENT: carotid bruit, JVD, lymphadenopathy, meningismus, tenderness, thyromegaly Respiratory exam: PRESENT: clear to auscultation monroe, other - Dialysis catheter in the left upper chest, site is unremarkable. ABSENT: accessory muscle use, chest wall tenderness, crackles, prolonged expiratory phas, retraction, rhonchi Cardiovascular exam: PRESENT: irregular rhythm, tachycardia Pulses: PRESENT: normal carotid pulses - Fast but palpable Vascular exam: PRESENT: normal capillary refill GI/Abdominal exam: PRESENT: normal bowel sounds, soft, other - He has a large midline incision that looks to be relatively recent as the scar tissue is still pink. ABSENT: distended, guarding, rebound, tenderness Extremities exam: ABSENT: clubbing, pedal edema Musculoskeletal exam: PRESENT: normal inspection. ABSENT: deformity Neurological exam: PRESENT: alert, awake, oriented to person, oriented to place, CN II-XII grossly intact. ABSENT: oriented to situation - He has no idea why he is here other than he short of breath, motor sensory deficit Psychiatric exam: PRESENT: flat affect Skin exam: PRESENT: dry, warm Results Laboratory Results: 03/14/20 16:22 03/14/20 16:22 03/14/20 03/14/20 16:22 16:22 WBC 9.8 RBC 5.18 Hgb 15.1 Hct 46.9 MCV 91 MCH 29.2 MCHC 32.3 RDW 16.9 H Plt Count 265 Seg Neutrophils % 75.6 Sodium 137.8 Potassium 4.4 Chloride 101 Carbon Dioxide 24 Anion Gap 13 BUN 15 Creatinine 1.40 H Est GFR ( Amer) > 60 Glucose 94 Calcium 9.2 Magnesium 2.0 Total Bilirubin 1.4 H AST 34 Alkaline Phosphatase 150 H Total Protein 8.0 Albumin 4.4 03/14/20 16:22 Troponin I 0.020 Impressions: Chest X-Ray 03/14/20 17:18 IMPRESSION: 1. Abnormal appearance of the chest. Extensive pleuroparenchymal changes as described. Since the prior from last year, patient has also had surgery. If c linically warranted, further evaluation with chest CT may help to better evaluate the lung changes. Assessment and Plan - Diagnosis (1) Atrial flutter with rapid ventricular response Is this a current diagnosis for this admission?: Yes Plan: Dr. Shields has been consulted. He is recommending metoprolol. I have ordered a dose of Toprol-XL and will have some PRN Lopressor available in case his rate gets out of control. We will leave him on BiPAP for now at Dr. Shields's recommendation until we get better heart rate control. (2) ESRD (end stage renal disease) on dialysis Is this a current diagnosis for this admission?: Yes Plan: He got dialysis today. He should not need it again until Saturday, if he even needs it then. His creatinine was 1.[address] Godfrey was thinking of de-escalating his dialysis treatments. Patient says he makes urine at home. - Time Time Spent with patient: 35 or more minutes - Inpatient Certification Based on my medical assessment, after consideration of the patient's comorbidities, presenting symptoms, or acuity I expect that the services needed warrant INPATIENT care.: Yes I certify that my determination is in accordance with my understanding of Medicare's requirements for reasonable and necessary INPATIENT services [42 CFR 412.3e].: Yes Medical Necessity: Need Close Monitoring Due to Risk of Patient Decompensation, Need For Continuous Telemetry Monitoring, Risk of Complication if Not Cared For in Hospital
[2020-03-14] MEDS ORDERED: METOPROLOL SUCCINATE 50 MG TAB.SR.24H PO ONE (19:30)
--- NOTE | 2020-03-14 21:20 | Progress Note ---
Provider Note Provider Note: Critical care note: 03/14/2020 Critical care start time: 2099 Critical care issue: Supraventricular tachycardia (atrial flutter/fib) I was asked to evaluate the patient by his nurse on IMCU. Patient's heart rate remains in the 140-160 range. He was given Cardizem IV as a bolus in the ER with no response and also has not responded to intravenous adenosine. He did respond to metoprolol however he became mildly hypotensive and this precluded administration of additional doses. On exam patient was found to have a marked irregular tachycardia. Chest is clear to auscultation. Patient has alert and in good spirits asking for something to eat and drink. After discussion with the patient and nurse it was decided to provide the patient with IV digoxin 0.5 mg x 1 and check his digoxin levels every morning with anticipated continuation of oral digoxin if his heart rate is responsive to this treatment. Patient will be observed throughout the night for further evaluation and intervention if necessary. Over the course of the evening and cell reliner, after receiving 0.5 mg of intravenous digoxin and a 2.5 mg dose of intravenous metoprolol, the patient's heart rate gradually decreased and his blood pressure gradually improved. Serial digoxin levels are scheduled for the mornings and based upon his digoxin level his daytime provider can choose whether or not to continue him on an appropriate oral dose. Patient continues to have a well-controlled atrial fibrillation rhythm by monitor. He is started on Lovenox 1 mg/kg every 12 hours for embolic prevention Critical care end time: 2117 Total critical care time: 18 minutes
[2020-03-14] MEDS ORDERED: DIGOXIN INJ 0.5 MG/2 ML AMPULE IV ONE ×2 (22:00)
[2020-03-14] MEDS ORDERED: HEPARIN SOD (PORCINE) 5,000 UNIT/ML 1 ML VIAL SUBCUT SCH (22:00)
--- NOTE | 2020-03-14 22:45 | EKG REPORT ---
SEVERITY:- ABNORMAL ECG - SVT VS PAT WITH 2:1 VS AF IWTH 2;1 LEFT ANTERIOR FASCICULAR BLOCK CONSIDER ANTEROSEPTAL INFARCT REC REPEAT EKG : Confirmed by: Blaise Rush 14-Mar-2020 22:45:02
[2020-03-15 06:53] LABS: HEMATOCRIT 38.9 % (37.9-51.0); HEMOGLOBIN 12.9 g/dL (13.5-17.0); MEAN CORPUSCULAR HEMOGLOBIN 29.1 pg (27.0-33.4); MEAN CORPUSCULAR HGB CONC 33.1 g/dL (32.0-36.0); MEAN CORPUSCULAR VOLUME 88 fl (80-97); PLATELET COUNT 229 10^3/uL (150-450); RED BLOOD COUNT 4.41 10^6/uL (4.35-5.55); RED CELL DISTRIBUTION WIDTH 16.9 % (11.5-14.0); WHITE BLOOD COUNT 6.3 10^3/uL (4.0-10.5)
[2020-03-15] MEDS ORDERED: ENOXAPARIN SODIUM INJ 60 MG/0.6 ML DISP.SYRIN SUBCUT SCH ×2 (07:00)
[2020-03-15 07:13] LABS: ANION GAP 11 (5-19); BLOOD UREA NITROGEN 21 mg/dL (7-20); CALCIUM 9.1 mg/dL (8.4-10.2); CARBON DIOXIDE 23 mmol/L (22-30); CHLORIDE 101 mmol/L (98-107); POTASSIUM 4.7 mmol/L (3.6-5.0)
[2020-03-15 07:27] LABS: DIGOXIN 2.59 ng/mL (0.8-2.0); GLUCOSE 66 mg/dL (75-110)
[2020-03-15] MEDS ORDERED: POLYETHYLENE GLYCOL 3350 POWDER 17 GM/1 PACKET PO PRN (08:12)
[2020-03-15] MEDS: FUROSEMIDE 40 MG TABLET PO SCH (09:32)
[2020-03-15] MEDS: METOPROLOL TARTRATE 25 MG TABLET PO SCH ×2 (09:32→21:33)
[2020-03-15] MEDS: FLUTICASONE NASAL SPRAY 50 MCG/SPRY 120 SPRAY/16 GM NASL SCH (09:33)
[2020-03-15] MEDS: SENNOSIDES/DOCUSATE 8.6-50 MG 1 EACH TABLET PO SCH (09:34)
[2020-03-15] MEDS ORDERED: DIGOXIN 0.125 MG TABLET PO SCH (10:00)
[2020-03-15] MEDS ORDERED: METOPROLOL SUCCINATE 50 MG TAB.SR.24H PO SCH (10:00)
--- NOTE | 2020-03-15 11:53 | PDOC CONSULTATION ---
Consultation Consult Date: 03/15/20 Provider Consulted: Venecia SU Consult reason:: ESRD for dialysis. History of Present Illness Admission Date/PCP: 03/14/20 19:09 KELSY ZIMMER History of Present Illness: SHAHRZAD JAIN is a 59 year old male Had a complicated history recently at [facility] when he underwent mitral valve replacement secondary to severe mitral stenosis and had a very complicated stay there for approximately 3 months and was then discharged after being deemed to be ESRD on dialysis through left IJ catheter. Patient is a very poor historian and history is been garnered from his discharge notes from [facility] available at [facility]. Patient apparently arrested post valve replacement and revived and apparently suffered ischemic renal injury that led him to ESRD. Apparently they tried to see if he had made any renal recovery but he was going into fluid overload and he has been deemed to be have reached ESRD secondary to fluid overload. Patient has been undergoing dialysis at [facility] and his last dialysis was yesterday following which he developed shortness of breath. Evaluations in the ER revealed that he was in atrial flutter/fibrillation with rapid ventricular response and was treated appropriately by Dr. Shields and the ER team and admitted for further evaluations and management. Patient today feels quite comfortable. He denies any history of chest pain or shortness of breath. No history of any fever or chills. No history of any coughing spells. No history of any hematuria. Labs and medications were reviewed. He does make small amounts of urine approximately 100 - 150 cc at home as per patient.The patient admits to the fact that he has not made any urine since his admission here yesterday. He also has had posttraumatic's stress situation from having had an injurious/traumatic Mccall catheter placement at [facility] and does not want to have that done anymore. He says it was very painful and he bled for a few days after a Mccall catheter introduction in [facility] and is very adamant on not having to go through the procedure again. Past Medical History Cardiac Medical History: Reports: Hypertension-primary Pulmonary Medical History: Reports: Chronic Obstructive Pulmonary Disease (COPD) Denies: Tuberculosis Neurological Medical History: Reports: Seizures - LAST 5 YR AGO Renal/ Medical History: Reports: End Stage Renal Disease Past Surgical History Past Surgical History: Reports: Orthopedic Surgery - hip, arm, Other - Complicated mitral valve replacement for severe mitral stenosis? Denies: Pacemaker Social History Smoking Status: Former Smoker Frequency of Alcohol Use: Rare Hx Recreational Drug Use: No Drugs: None Hx Prescription Drug Abuse: No Family History Parental Family History Reviewed: No Children Family History Reviewed: No Sibling(s) Family History Reviewed.: No Medication/Allergy Home Medications: Fluticasone Propionate [Flonase Nasal Boulder 50 Mcg/Boulder 16 gm] 2 spray NASL DAILY 03/14/20 Furosemide [Lasix 40 mg Tablet] 40 mg PO DAILY 03/14/20 Hydroxyzine HCl [Atarax 10 mg Tablet] 50 mg PO QHS 03/14/20 Lisinopril/Hydrochlorothiazide [Zestoretic 20-25 mg Tablet] 1 tab PO DAILY Metoprolol Tartrate [Lopressor 25 mg Tablet] 25 mg PO Q12 03/14/20 Oxycodone HCl [Oxy-Ir 5 mg Tablet] 5 mg PO Q6HP PRN 03/14/20 Polyethylene Glycol 3350 [Miralax Powder 17 gm/Packet] 1 packet PO DAILYP PRN 03/14/20 Ranitidine HCl [Zantac] 150 mg PO DAILY 03/14/20 Sennosides/Docusate Sodium [Senna Plus 8.6-50 mg Tablet] 2 tab PO BID 03/14/20 Trazodone HCl [Desyrel 50 mg Tablet] 50 mg PO QHS 03/14/20 Warfarin Sodium [Coumadin 2 mg Tablet] 2 mg PO QHS 03/14/20 Allergies/Adverse Reactions: metoprolol tartrate [From Lopressor] Adverse Reaction (Verified 03/14/20 18:54) Generalized rash Review of Systems Constitutional: PRESENT: fatigue, weakness. ABSENT: anorexia, chills, fever(s), headache(s), night sweats Nose, Mouth, and Throat: ABSENT: mouth pain, sore throat Cardiovascular: PRESENT: dyspnea on exertion, orthropnea, palpitations. ABSENT: chest pain, edema Respiratory: PRESENT: dyspnea. ABSENT: cough, hemoptysis Gastrointestinal: ABSENT: diarrhea, dysphagia, heartburn, hematemesis, nausea, vomiting Genitourinary: ABSENT: difficulty urinating, dysuria, hematuria Musculoskeletal: ABSENT: deformity, joint swelling Integumentary: ABSENT: lesions, pruritus, rash Neurological: ABSENT: abnormal movements, abnormal speech, confusion, convulsions, focal weakness, frequent falls, lack of coordination Endocrine: ABSENT: polydipsia Hematologic/Lymphatic: ABSENT: easy bleeding, easy bruising, lymphadenopathy Physical Exam Vital Signs: Temp Pulse Resp BP Pulse Ox 97.9 F 55 L 14 98/67 L 100 03/15/20 07:30 03/15/20 07:30 03/15/20 07:30 03/15/20 07:30 03/15/20 07:30 Intake & Output 03/14/20 03/15/20 03/16/20 06:59 06:59 06:59 Intake Total 260 Balance 260 Weight 55.7 kg General appearance: PRESENT: no acute distress Eye exam: PRESENT: EOMI, PERRLA. ABSENT: scleral icterus Ear exam: PRESENT: normal external ear exam Mouth exam: PRESENT: moist, neck supple Neck exam: ABSENT: lymphadenopathy, meningismus, tenderness, thyromegaly Respiratory exam: PRESENT: clear to auscultation monroe. ABSENT: crackles Cardiovascular exam: PRESENT: RRR, +S1, +S2. ABSENT: rubs GI/Abdominal exam: PRESENT: normal bowel sounds, soft. ABSENT: organomegaly, tenderness Extremities exam: ABSENT: pedal edema Neurological exam: PRESENT: alert, awake, oriented to person Psychiatric exam: PRESENT: appropriate affect Skin exam: ABSENT: cyanosis, erythema, mottled, rash Results Laboratory Results: 03/15/20 05:57 03/15/20 05:57 03/14/20 03/14/20 03/15/20 16:22 16:22 05:57 WBC 9.8 6.3 RBC 5.18 4.41 Hgb 15.1 12.9 L D Hct 46.9 38.9 MCV 91 88 MCH 29.2 29.1 MCHC 32.3 33.1 RDW 16.9 H 16.9 H Plt Count 265 229 Seg Neutrophils % 75.6 Sodium 137.8 Potassium 4.4 Chloride 101 Carbon Dioxide 24 Anion Gap 13 BUN 15 Creatinine 1.40 H Est GFR ( Amer) > 60 Glucose 94 Calcium 9.2 Magnesium 2.0 Total Bilirubin 1.4 H AST 34 Alkaline Phosphatase 150 H Total Protein 8.0 Albumin 4.4 03/15/20 05:57 WBC RBC Hgb Hct MCV MCH MCHC RDW Plt Count Seg Neutrophils % Sodium 135.0 L Potassium 4.7 Chloride 101 Carbon Dioxide 23 Anion Gap 11 BUN 21 H Creatinine 1.90 H Est GFR ( Amer) 44 L Glucose 66 L Calcium 9.1 Magnesium Total Bilirubin AST Alkaline Phosphatase Total Protein Albumin 03/14/20 16:22 Troponin I 0.020 Impressions: Chest X-Ray 03/14/20 17:18 IMPRESSION: 1. Abnormal appearance of the chest. Extensive pleuroparenchymal changes as described. Since the prior from last year, patient has also had surgery. If clinically warranted, further evaluation with chest CT may help to better evaluate the lung changes. Assessment & Plan - Diagnosis (1) Atrial fibrillation Is this a current diagnosis for this admission?: Yes Plan: Patient admitted yesterday with rapid a flutter/fibrillation decompensated. He was revived/heart rate slowed down with antiarrhythmic medications by Dr. Shields/cardiology. He also had apparent rapid H fibrillation last night and was digitalized by on-call hospitalist. Currently he is doing well. Management as per cardiology. Patient is a poor historian and his compliance is extremely suspect. He says he is not taking all of his medications as he should. He supposed to be on warfarin which he does not think he is taking as well. He knows he should be taking this for his mechanical mitral valve that he had done October 2019 at [facility]. (2) ESRD (end stage renal disease) on dialysis Is this a current diagnosis for this admission?: Yes Plan: Patient is on regular dialysis at [facility]. He had a complicated mitral valve replacement last October at [facility] which was complicated by PEA arrest. In the process he suffered ischemic renal injury and was initiated on dialysis. Apparently he did not regain renal functions as he was going into frequent congestive heart failure and from a fluid standpoint point he was put on maintenance dialysis. He has a left IJ catheter with no evidence of of exit site infection. Plan for dialysis tomorrow and orders have been placed. (3) Mitral valve stenosis Qualifiers: Cardiac valve disease etiology: rheumatic Qualified Code(s): I05.0 - Rheumatic mitral stenosis Is this a current diagnosis for this admission?: Yes Plan: Status post mitral valve replacement at [facility] October 2019 which was complicated by PEA arrest and ischemic renal injury that necessitated initiation of hemodialysis. (4) HTN (hypertension) Qualifiers: Hypertension type: essential hypertension Qualified Code(s): I10 - Essential (primary) hypertension Plan: Presently stable. Monitor.
[2020-03-15] MEDS ORDERED: METOPROLOL TARTRATE PF/INJ 5 MG/5 ML SDV IV ONE (11:54)
--- NOTE | 2020-03-15 11:55 | PDOC PROGRESS REPORT ---
Subjective Progress Note for:: 03/15/20 Subjective:: SHAHRZAD JAIN is a 59 year old male with the following active problems: 1. 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 Pulmonary hypertension 3. Congestive heart failure 4. Paroxysmal supraventricular tachycardia 5. End-stage renal disease on hemodialysis 6. PEA arrest 59-year-old male with the above history who was initially consulted to my partner, Dr. Shields, for atrial fibrillation. Dr. Shields is of the service therefore I am following the patient now. For details of his admission please see Dr. Shields's note. In summary, the patient has had multiple episodes of PEA in the past and was admitted yesterday in rapid atrial fibrillation/flutter. He was begun on beta-blockers for rate control strategy and since then has done very well. His heart rate has remained at goal. This morning, the patient is laying comfortably in bed, without any cardiovascular complaints and asking when he will be discharged home. His telemetry shows demand pacing with underlying atrial fibrillation. He is now fully anticoagulated. Unfortunately we still do not have a clear cardiovascular history on him and he does not remember much of his past history. Physical exam on 03/15/2020: GENERAL: Pleasant and conversational. Oriented x3 with normal mood. Not in acute distress. Well groomed and well developed. HEENT: Normocephalic, atraumatic. Pupils equal. Sclerae anicteric. Oropharynx moist. NECK: No JVD. No carotid bruits. LUNGS: Clear to auscultation bilaterally. Normal respiratory effort without the use of accessory muscles or intercostal retractions. CARDIOVASCULAR: Irregularly irregular rate and rhythm without murmurs, rubs, or gallops. PMI not displaced. SKIN: No lesions or rashes. MUSCULOSKELETAL: No chest tenderness to palpation. NEUROLOGIC: Nonfocal. No gross sensory or motor deficits bilateral upper or lower extremities. Reason For Visit: ATRIAL FLUTTER WITH RAPID VENTRICULAR RATE Physical Exam Vital Signs: Temp Pulse Resp BP Pulse Ox 97.9 F 55 L 14 98/67 L 100 03/15/20 07:30 03/15/20 07:30 03/15/20 07:30 03/15/20 07:30 03/15/20 07:30 Intake & Output 03/14/20 03/15/20 03/16/20 06:59 06:59 06:59 Intake Total 260 Balance 260 Weight 55.7 kg Results Laboratory Results: 03/15/20 05:57 03/15/20 05:57 03/14/20 03/14/20 03/15/20 16:22 16:22 05:57 WBC 9.8 6.3 RBC 5.18 4.41 Hgb 15.1 12.9 L D Hct 46.9 38.9 MCV 91 88 MCH 29.2 29.1 MCHC 32.3 33.1 RDW 16.9 H 16.9 H Plt Count 265 229 Seg Neutrophils % 75.6 Sodium 137.8 Potassium 4.4 Chloride 101 Carbon Dioxide 24 Anion Gap 13 BUN 15 Creatinine 1.40 H Est GFR ( Amer) > 60 Glucose 94 Calcium 9.2 Magnesium 2.0 Total Bilirubin 1.4 H AST 34 Alkaline Phosphatase 150 H Total Protein 8.0 Albumin 4.4 03/15/20 05:57 WBC RBC Hgb Hct MCV MCH MCHC RDW Plt Count Seg Neutrophils % Sodium 135.0 L Potassium 4.7 Chloride 101 Carbon Dioxide 23 Anion Gap 11 BUN 21 H Creatinine 1.90 H Est GFR ( Amer) 44 L Glucose 66 L Calcium 9.1 Magnesium Total Bilirubin AST Alkaline Phosphatase Total Protein Albumin 03/14/20 16:22 Troponin I 0.020 Impressions: Chest X-Ray 03/14/20 17:18 IMPRESSION: 1. Abnormal appearance of the chest. Extensive pleuroparenchymal changes as described. Since the prior from last year, patient has also had surgery. If clinically warranted, further evaluation with chest CT may help to better evaluate the lung changes. 03/15/20 05:57 03/15/20 05:57 MCV 88 fl (80-97) 03/15/20 05:57 MCH 29.1 pg (27.0-33.4) 03/15/20 05:57 MCHC 33.1 g/dL (32.0-36.0) 03/15/20 05:57 RDW 16.9 % (11.5-14.0) H 03/15/20 05:57 Seg Neutrophils % 75.6 % (42-78) 03/14/20 16:22 Chloride 101 mmol/L (98-107) 03/15/20 05:57 Carbon Dioxide 23 mmol/L (22-30) 03/15/20 05:57 Anion Gap 11 (5-19) 03/15/20 05:57 Est GFR ( Amer) 44 (>60) L 03/15/20 05:57 Glucose 66 mg/dL (75-110) L 03/15/20 05:57 Calcium 9.1 mg/dL (8.4-10.2) 03/15/20 05:57 Magnesium 2.0 mg/dL (1.6-2.3) 03/14/20 16:22 Total Bilirubin 1.4 mg/dL (0.2-1.3) H 03/14/20 16:22 AST 34 U/L (17-59) 03/14/20 16:22 Alkaline Phosphatase 150 U/L (38-126) H 03/14/20 16:22 Total Protein 8.0 g/dL (6.3-8.2) 03/14/20 16:22 Albumin 4.4 g/dL (3.5-5.0) 03/14/20 16:22 03/14/20 16:22 Troponin I 0.020 Current Medication List Generic Name Dose Route Start Last Admin Trade Name Freq PRN Reason Stop Dose Admin Enoxaparin Sodium 55 mg 03/15/20 07:00 03/15/20 07:59 Lovenox Inj 60 Mg/0.6 Ml Disp.Syrin SUBCUT 04/14/20 06:59 55 mg Q12H ANTONELLA Administration Fluticasone Propionate 2 spray 03/15/20 10:00 Flonase Nasal Gleason 50 Mcg/Gleason 16 Gm NASL 04/14/20 09:59 DAILY ANTONELLA Furosemide 40 mg 03/15/20 10:00 Lasix 40 Mg Tablet PO 04/14/20 09:59 DAILY ANTONELLA Hydroxyzine HCl 50 mg 03/15/20 22:00 Atarax 10 Mg Tablet PO 04/14/20 21:59 QHS ANTONELLA Metoprolol Succinate 50 mg 03/15/20 10:00 Toprol Xl 50 Mg Tab.Sr PO 04/14/20 09:59 DAILY ANTONELLA Metoprolol Tartrate 5 mg 03/14/20 19:05 03/15/20 00:14 Lopressor Inj/Pf 5 Mg/5 Ml Sdv IV 04/13/20 19:04 5 mg Q6HP PRN Administration Give For Hr > 120 Metoprolol Tartrate 25 mg 04/21/20 10:00 Lopressor 25 Mg Tablet PO 04/14/20 09:59 Q12 ANTONELLA Ondansetron HCl 4 mg 03/14/20 18:38 03/14/20 19:29 Zofran Inj/Pf 4 Mg/2 Ml Sdv IV 04/13/20 18:37 4 mg Q4HP PRN Administration FOR NAUSEA/VOMITING Oxycodone HCl 5 mg 03/15/20 08:12 Oxy-Ir 5 Mg Tablet PO 03/22/20 08:11 Q6HP PRN FOR PAIN Pharmacy Consult 1 dose 03/15/20 08:16 Warfarin Pharmacy To Dose PO 04/14/20 08:15 .PHARMACY TO DOSE PRN THIS MED IS NOT "PRN" Protocol Polyethylene Glycol 17 gm 03/15/20 08:12 Miralax Powder 17 Gm/Packet PO 04/14/20 08:11 DAILYP PRN CONSTIPATION Senna/Docusate Sodium 2 each 03/15/20 10:00 Senna Plus Tablet PO 04/14/20 09:59 DAILY ANTONELLA Trazodone HCl 50 mg 03/15/20 22:00 Desyrel 50 Mg Tablet PO 04/14/20 21:59 QHS ANTONELLA Discontinued Medications Generic Name Dose Route Start Last Admin Trade Name Freq PRN Reason Stop Dose Admin Adenosine Confirm 03/14/20 16:21 03/14/20 18:12 Adenocard Inj/Pf 6 Mg/2 Ml Sdv Administered 03/14/20 16:22 Not Given Dose 6 mg IV .STK-MED ONE Adenosine 12 mg 03/14/20 18:02 03/14/20 16:25 Adenocard Inj/Pf 6 Mg/2 Ml Sdv IV 03/14/20 18:03 12 mg NOW ONE Administration Digoxin 0.5 mg 03/14/20 22:00 03/14/20 21:37 Lanoxin Inj 0.5 Mg/2 Ml Ampule IV 03/14/20 22:01 0.5 mg NOW ONE Administration Digoxin 0.125 mg 03/15/20 10:00 Lanoxin 0.125 Mg Tablet PO 04/14/20 09:59 DAILY ANTONELLA Diltiazem HCl Confirm 03/14/20 16:27 03/14/20 18:12 Cardizem Inj 25 Mg/5 Ml Vial Administered 03/14/20 16:28 Not Given Dose 25 mg .ROUTE .STK-MED ONE Diltiazem HCl 20 mg 03/14/20 18:01 03/14/20 16:28 Cardizem Inj 25 Mg/5 Ml Vial IV 03/14/20 18:02 20 mg NOW ONE Administration Enoxaparin Sodium 60 mg 03/15/20 07:00 Lovenox Inj 60 Mg/0.6 Ml Disp.Syrin SUBCUT 04/14/20 06:59 Q12H ANTONELLA Heparin Sodium (Porcine) 5,000 unit 03/14/20 22:00 03/14/20 21:37 Heparin Inj 5,000 Units/Ml 1 Ml Vial SUBCUT 04/13/20 21:59 5,000 unit Q8 ANTONELLA Administration Diltiazem HCl Confirm 03/14/20 16:29 03/14/20 18:12 Cardizem Rtu Inj 125 Mg-D5w 125 Ml Premix Administered 03/14/20 16:30 Not Given Dose 125 mg in 125 mls @ ud IV .STK-MED ONE Metoprolol Succinate 50 mg 03/14/20 19:30 03/14/20 21:43 Toprol Xl 50 Mg Tab.Sr PO 03/14/20 19:31 Not Given NOW ONE Metoprolol Tartrate 2.5 mg 03/14/20 18:01 03/14/20 18:07 Lopressor Inj/Pf 5 Mg/5 Ml Sdv IV 03/14/20 18:02 2.5 mg NOW ONE Administration Metoprolol Tartrate 5 mg 03/14/20 18:03 03/14/20 16:32 Lopressor Inj/Pf 5 Mg/5 Ml Sdv IV 03/14/20 18:04 5 mg NOW ONE Administration Metoprolol Tartrate 2.5 mg 03/14/20 18:57 03/14/20 19:10 Lopressor Inj/Pf 5 Mg/5 Ml Sdv IV 03/14/20 18:58 2.5 mg NOW ONE Administration Metoprolol Tartrate 2.5 mg 03/14/20 19:36 03/14/20 21:43 Lopressor Inj/Pf 5 Mg/5 Ml Sdv IV 03/14/20 19:37 Not Given NOW ONE Assessment & Plan - Diagnosis (1) Atrial fibrillation Is this a current diagnosis for this admission?: Yes Plan: Rate is now controlled. Anticoagulation has been initiated which I agree with. His anticoagulation goal at this point is not clear yet given his history of mitral valve replacement. On chest x-ray it appears that he only had a mitral valve ring without any evidence of any other medical structures consistent with a mechanical valve and his cardiovascular exam is consistent with a bioprostheti c valve. It would be very helpful to get his prior records from [place] to clarify whether or not he has a mechanical versus bioprosthetic valve. If he does have a mechanical valve his anticoagulation goal would be between 2.5 and 3.5 but if he only has a bioprosthetic valve his anticoagulation goal would only be between 2.0 and 3.0. Recommendations: -Continue with current medical management. -Continue with current anticoagulation regimen for now. -We will continue to follow-up with you. (2) ESRD (end stage renal disease) on dialysis Is this a current diagnosis for this admission?: Yes Plan: The patient will continue to undergo dialysis as scheduled. (3) Mitral valve stenosis Plan: The patient underwent mitral valve replacement as stated above. It is unclear whether he had a mechanical versus bioprosthetic valve. On clinical grounds, it appears to be a bioprosthetic valve. Recommendations: -Continue with current anticoagulation regimen for now. -Echocardiogram to better assess the valve. -Further recommendations pending results of echocardiogram.
--- NOTE | 2020-03-15 11:55 | PDOC PROGRESS REPORT ---
Subjective Progress Note for:: 03/15/20 Subjective:: Patient was given digoxin last night after sustaining out rapid heart rate. Patient does not seem to know a lot about his health. He states that he had recent mitral valve procedure done but unable to clearly tell me when it was done. States he was performed at [place]. Uncertain why the suture on his left upper chest is present. Denies any shortness of breath at the time and denies any current chest pain. States he has not been taking any medications noted on warfarin for the past several days. I have emphasized to him the significant importance of warfarin if he does have a mechanical mitral valve and that is not taking this medication currently to thromboembolic events which could ultimately result as fatal or causing a stroke. He acknowledged understanding but seemed indifferent still. Reason For Visit: ATRIAL FLUTTER WITH RAPID VENTRICULAR RATE Physical Exam Vital Signs: Temp Pulse Resp BP Pulse Ox 97.9 F 55 L 14 98/67 L 100 03/15/20 07:30 03/15/20 07:30 03/15/20 07:30 03/15/20 07:30 03/15/20 07:30 Intake & Output 03/14/20 03/15/20 03/16/20 06:59 06:59 06:59 Intake Total 260 Balance 260 Weight 55.7 kg General appearance: PRESENT: no acute distress, cooperative Neck exam: ABSENT: JVD Respiratory exam: PRESENT: symmetrical, unlabored. ABSENT: tachypnea, wheezes Cardiovascular exam: PRESENT: irregular rhythm, +S1, +S2, systolic murmur. ABSENT: tachycardia GI/Abdominal exam: PRESENT: soft. ABSENT: rebound, rigid, tenderness Neurological exam: PRESENT: alert, awake, oriented to person, oriented to place Results Laboratory Results: 03/15/20 05:57 03/15/20 05:57 03/14/20 03/14/20 03/15/20 16:22 16:22 05:57 WBC 9.8 6.3 RBC 5.18 4.41 Hgb 15.1 12.9 L D Hct 46.9 38.9 MCV 91 88 MCH 29.2 29.1 MCHC 32.3 33.1 RDW 16.9 H 16.9 H Plt Count 265 229 Seg Neutrophils % 75.6 Sodium 137.8 Potassium 4.4 Chloride 101 Carbon Dioxide 24 Anion Gap 13 BUN 15 Creatinine 1.40 H Est GFR ( Amer) > 60 Glucose 94 Calcium 9.2 Magnesium 2.0 Total Bilirubin 1.4 H AST 34 Alkaline Phosphatase 150 H Total Protein 8.0 Albumin 4.4 03/15/20 05:57 WBC RBC Hgb Hct MCV MCH MCHC RDW Plt Count Seg Neutrophils % Sodium 135.0 L Potassium 4.7 Chloride 101 Carbon Dioxide 23 Anion Gap 11 BUN 21 H Creatinine 1.90 H Est GFR ( Amer) 44 L Glucose 66 L Calcium 9.1 Magnesium Total Bilirubin AST Alkaline Phosphatase Total Protein Albumin 03/14/20 16:22 Troponin I 0.020 Impressions: Chest X-Ray 03/14/20 17:18 IMPRESSION: 1. Abnormal appearance of the chest. Extensive pleuroparenchymal changes as described. Since the prior from last year, patient has also had surgery. If clinically warranted, further evaluation with chest CT may help to better evaluate the lung changes. Assessment and Plan - Diagnosis (1) Atrial flutter with rapid ventricular response Is this a current diagnosis for this admission?: Yes Plan: Patient's rate seems to be better today. I will repeat an EKG. Lopressor 25 mg every 12 hours. IV Lopressor as needed. Cautious with soft blood pressures. Unfortunately digoxin would not be an adequate sustainable option in patient given his CKD. Digoxin was given last night and seems to be having high levels this morning. However digoxin level was not drawn at the adequate window after initial bolus of 0.5 mg yesterday. I will check digoxin level later today. Cardiology following (2) Mitral valve stenosis Qualifiers: Cardiac valve disease etiology: rheumatic Qualified Code(s): I05.0 - Rheumatic mitral stenosis Is this a current diagnosis for this admission?: Yes Plan: Patient has a history of mitral valve replacement. Per documentation patient has a mechanical mitral valve and as such given his underlying valvular A. fib/a flutter, INR goal will be 2.5-3.5. Patient states he has not been taking his warfarin. I will check INR. Therapeutic dose Lovenox and resume warfarin. Obtain records from [place] Check echocardiogram (3) COPD (chronic obstructive pulmonary disease) Qualifiers: COPD type: unspecified COPD Qualified Code(s): J44.9 - Chronic obstructive pulmonary disease, unspecified Is this a current diagnosis for this admission?: Yes Plan: We will discussed with patient further to know his oxygen requirements at home. Patient may likely have chronic hypoxic respiratory failure from his COPD. Wean oxygen supplements as tolerated. (4) CKD (chronic kidney disease) requiring chronic dialysis Is this a current diagnosis for this admission?: Yes Plan: Consulted armature straightener. We will continue patient's dialysis as scheduled Saturday. - Time Time Spent with patient: 15-24 minutes
[2020-03-15 12:52] LABS: HEMATOCRIT 41.9 % (37.9-51.0); HEMOGLOBIN 13.9 g/dL (13.5-17.0); MEAN CORPUSCULAR HEMOGLOBIN 29.5 pg (27.0-33.4); MEAN CORPUSCULAR HGB CONC 33.2 g/dL (32.0-36.0); MEAN CORPUSCULAR VOLUME 89 fl (80-97); PLATELET COUNT 268 10^3/uL (150-450); RED BLOOD COUNT 4.71 10^6/uL (4.35-5.55); RED CELL DISTRIBUTION WIDTH 16.5 % (11.5-14.0)
[2020-03-15 12:55] LABS: INTERNATIONAL RATION (INR) 1.81; PARTIAL THROMBOPLASTIN TIME 38.5 SEC (23.5-35.8); PROTHROMBIN TIME 21.2 SEC (11.4-15.4)
[2020-03-15] MEDS ORDERED: HEPARIN SODIUM,PORCINE/D5W 25,000 UNIT/250 ML RTUINJ IV PRN (13:30)
[2020-03-15] MEDS: HEPARIN SOD (PORCINE) 1,000 UNIT/ML 10 ML VIAL IV PRN (14:10)
--- NOTE | 2020-03-15 17:23 | XCELERA REPORT ---
[address] [address] Transthoracic Echocardiogram Report Name: SHAHRZAD JAIN Age: 59 yrs Gender: Male : 1960 Patient Status: Inpatient Patient Location: [address] [place] [address] Study Date: 03/15/2020 09:50 AM Height: 64 in Weight: 122 lb BSA: 1.6 m2 Procedure: A complete two-dimensional transthoracic echocardiogram was performed (2D, M-mode, spectral and color flow Doppler). The study was technically difficult with many images being suboptimal in quality. Limited LA views due to prosthetic MV. Reason For Study: CHF History: Ifrah Valve replacement. Ordering Physician: CHUCK GARCIA Performed By: uSe Smallwood Interpretation Summary Very limited study with suboptimal views secondary to the patients's body habitus. The left ventricle appears to be of normal size with grossly preserved LV systolic function. There is abnormal motion of the interatrial septum secondary to ventricular pacing. Regional wall motion cannot be assessed. The atria are grossly of normal size. There is a mechanical valve in the mitral position which is well seated and with minimal regurgitation. At lease moderate TR is present, trace PI. The aortic valve was not well visualized. There is an echodense structure at the apex of the right ventricle measuring 2.6 cm which is compatible with a leadless pacemaker. Mild pulmonary hypertension with estimated pressure between 44 and 49 mmHg. MMode/2D Measurements & Calculations RVDd: 3.3 cm LVIDd: 4.1 cm FS: 41.8 % Ao root diam: 2.6 cm IVSd: 0.72 cm LVIDs: 2.4 cm EDV(Teich): 74.1 ml Ao root area: 5.4 cm2 LVPWd: 0.80 cm ESV(Teich): 19.8 ml EF(Teich): 73.3 % Doppler Measurements & Calculations MV E max julián: MV dec slope: Ao V2 max: LV V1 max P.3 cm/sec 920.0 cm/sec2 157.4 cm/sec 1.6 mmHg MV A max julián: MV dec time: 0.15 sec Ao max P.9 mmHgLV V1 max: 0.51 cm/sec 62.8 cm/sec MV E/A: 280.1 PA V2 max: PI end-d julián: TR max julián: 57.1 cm/sec 148.7 cm/sec 313.5 cm/sec PA max P.3 mmHg TR max P.4 mmHg Mitral Valve Can not exclude MR. Tricuspid Valve TR noted. Pulmonic Valve There is a trace or physiologic amount of pulmonic regurgitation. Effusions Plueural Effusion noted. Incidental Findings Note questionable structure in RV with posterior shadowing. : CHUCK GARCIA Antonio
[2020-03-15] MEDS: TRAZODONE HCL 50 MG TABLET PO SCH (21:34)
[2020-03-15] MEDS: HYDROXYZINE HCL 10 MG TABLET PO SCH (21:34)
[2020-03-15] MEDS ORDERED: WARFARIN SODIUM 3 MG TABLET PO SCH (22:00)
[2020-03-15 23:04] LABS: APPEARANCE,URINE CLEAR; BILIRUBIN,URINE NEGATIVE (NEGATIVE); COLOR,URINE YELLOW; GLUCOSE, URINE NEGATIVE (NEGATIVE); KETONES,URINE NEGATIVE (NEGATIVE); LEUKOCYTE ESTERASE,URINE NEGATIVE (NEGATIVE); NITRITE,URINE NEGATIVE (NEGATIVE); PROTEIN,URINE NEGATIVE (NEGATIVE); URINE SPECIFIC GRAVITY 1.012; UROBILINOGEN,URINE NEGATIVE mg/dL (<2.0)
[2020-03-16] MEDS: OXYCODONE HCL IR 5 MG TABLET PO PRN (00:05)
[2020-03-16] MEDS ORDERED: HEPARIN SOD (PORCINE) 1,000 UNIT/ML 10 ML VIAL IV PRN (05:00)
[2020-03-16 05:07] LABS: HEMATOCRIT 35.8 % (37.9-51.0); MEAN CORPUSCULAR HEMOGLOBIN 29.1 pg (27.0-33.4); MEAN CORPUSCULAR HGB CONC 32.9 g/dL (32.0-36.0); MEAN CORPUSCULAR VOLUME 89 fl (80-97); PLATELET COUNT 226 10^3/uL (150-450); RED BLOOD COUNT 4.05 10^6/uL (4.35-5.55); RED CELL DISTRIBUTION WIDTH 16.4 % (11.5-14.0)
[2020-03-16 05:13] LABS: PROTHROMBIN TIME 22.1 SEC (11.4-15.4)
[2020-03-16 05:35] LABS: ANION GAP 5 (5-19); BLOOD UREA NITROGEN 29 mg/dL (7-20); CALCIUM 8.7 mg/dL (8.4-10.2); CARBON DIOXIDE 25 mmol/L (22-30); CHLORIDE 102 mmol/L (98-107); DIGOXIN 1.84 ng/mL (0.8-2.0); GLUCOSE 85 mg/dL (75-110); POTASSIUM 4.1 mmol/L (3.6-5.0)
[2020-03-16 05:43] LABS: HEMOGLOBIN 11.8 g/dL (13.5-17.0)
--- NOTE | 2020-03-16 07:22 | EKG REPORT ---
SEVERITY:- ABNORMAL ECG - AFIB/FLUT AND V-PACED COMPLEXES : Confirmed by: Blaise Rush 16-Mar-2020 07:21:54
[2020-03-16] MEDS: SENNOSIDES/DOCUSATE 8.6-50 MG 1 EACH TABLET PO SCH (10:26)
[2020-03-16] MEDS: FLUTICASONE NASAL SPRAY 50 MCG/SPRY 120 SPRAY/16 GM NASL SCH (10:26)
[2020-03-16] MEDS ORDERED: IPRATROPIUM/ALBUTEROL 0.5-2.5 MG/3 ML AMPUL NEB PRN (10:30)
--- NOTE | 2020-03-16 10:34 | PDOC PROGRESS REPORT ---
Subjective Progress Note for:: 03/16/20 Subjective:: Patient denies any chest pain. Denies palpitations. Patient endorses some dyspnea and states that is the reason why he is here in the hospital. Reason For Visit: ATRIAL FLUTTER WITH RAPID VENTRICULAR RATE Physical Exam Vital Signs: Temp Pulse Resp BP Pulse Ox 97.6 F 80 18 104/68 100 03/15/20 20:12 03/16/20 07:00 03/15/20 20:12 03/15/20 20:12 03/16/20 08:55 Intake & Output 03/15/20 03/16/20 03/17/20 06:59 06:59 06:59 Intake Total 260 1144 Balance 260 1144 Weight 55.7 kg 56.2 kg General appearance: PRESENT: no acute distress, cooperative. ABSENT: disheveled, obese Neck exam: ABSENT: JVD Respiratory exam: PRESENT: clear to auscultation [place], unlabored. ABSENT: accessory muscle use, tachypnea, wheezes Cardiovascular exam: PRESENT: irregular rhythm, +S1, +S2. ABSENT: tachycardia GI/Abdominal exam: PRESENT: soft. ABSENT: rebound, rigid, tenderness Neurological exam: PRESENT: alert, awake, oriented to person, oriented to place, oriented to time, oriented to situation Results Laboratory Results: 03/16/20 04:40 03/16/20 04:40 03/15/20 03/15/20 03/16/20 12:33 22:30 04:40 WBC 8.0 6.0 RBC 4.71 4.05 L Hgb 13.9 11.8 L D Hct 41.9 35.8 L MCV 89 89 MCH 29.5 29.1 MCHC 33.2 32.9 RDW 16.5 H 16.4 H Plt Count 268 226 Sodium Potassium Chloride Carbon Dioxide Anion Gap BUN Creatinine Est GFR ( Amer) Glucose Calcium Urine Color YELLOW Urine Appearance CLEAR Urine pH 5.0 Ur Specific [place] 1.012 Urine Protein NEGATIVE Urine Glucose (UA) NEGATIVE Urine Ketones NEGATIVE Urine Blood NEGATIVE Urine Nitrite NEGATIVE Ur Leukocyte Esterase NEGATIVE Urine WBC (Auto) 4 Urine RBC (Auto) 0 03/16/20 04:40 WBC RBC Hgb Hct MCV MCH MCHC RDW Plt Count Sodium 132.2 L Potassium 4.1 Chloride 102 Carbon Dioxide 25 Anion Gap 5 BUN 29 H Creatinine 2.11 H Est GFR ( Amer) 39 L Glucose 85 Calcium 8.7 Urine Color Urine Appearance Urine pH Ur Specific [place] Urine Protein Urine Glucose (UA) Urine Ketones Urine Blood Urine Nitrite Ur Leukocyte Esterase Urine WBC (Auto) Urine RBC (Auto) 03/14/20 16:22 Troponin I 0.020 Impressions: Chest X-Ray 03/14/20 17:18 IMPRESSION: 1. Abnormal appearance of the chest. Extensive pleuroparenchymal changes as described. Since the prior from last year, patient has also had surgery. If clinically warranted, further evaluation with chest CT may help to better evaluate the lung changes. Assessment and Plan - Diagnosis (1) Atrial flutter with rapid ventricular response Is this a current diagnosis for this admission?: Yes Plan: Likely persistent. Patient's rate seems to be better today. Lopressor increased to 50 mg every 12 hours. Digoxin not ideal in this patient with CKD on dialysis. Digoxin level back to normal. Cardiology following (2) Respiratory failure with hypoxia Qualifiers: Chronicity: unspecified Qualified Code(s): J96.91 - Respiratory failure, unspecified with hypoxia Is this a current diagnosis for this admission?: Yes Plan: Uncertain if this is acute or chronic for patient. He does have underlying COPD. However chest x-ray does show opacities in the right mid and lower lung [place] which I realized, after reviewing patient's prior CTs and chest x-rays, were not present last year. No evidence of leukocytosis or fever. We will get chest CT for clearer evaluation. (3) Mitral valve stenosis Qualifiers: Cardiac valve disease etiology: rheumatic Qualified Code(s): I05.0 - Rheumatic mitral stenosis Is this a current diagnosis for this admission?: Yes Plan: Patient has a history of mechanical mitral valve replacement. INR goal of 2.5-3.5 given mechanical mitral valve + A. fib INR is 1.9 today. Continue therapeutic Lovenox and warfarin. Echocardiogram confirms mechanical mitral valve, normal EF mild pulmonary hypertension and intracardiac leadless pacemaker (4) COPD (chronic obstructive pulmonary disease) Qualifiers: COPD type: unspecified COPD Qualified Code(s): J44.9 - Chronic obstructive pulmonary disease, unspecified Is this a current diagnosis for this admission?: Yes Plan: Nebs as needed. Wean oxygen as tolerated. (5) CKD (chronic kidney disease) requiring chronic dialysis Is this a current diagnosis for this admission?: Yes Plan: Consulted gag writer. We will continue patient's dialysis as scheduled Saturday. Records from [place] reviewed. Patient seems to have been on dialysis after developing DEMETRIUS on CKD following PEA arrest tube in November 2019 and has been on dialysis ever since. Continue Lasix - Time Time Spent with patient: 15-24 minutes
[2020-03-16] MEDS: FUROSEMIDE 40 MG TABLET PO SCH (10:35)
--- NOTE | 2020-03-16 11:45 | PDOC PROGRESS REPORT ---
Subjective Progress Note for:: 03/16/20 Subjective:: SHAHRZAD JAIN is a 59 year old male with the following active problems: 1. 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 Pulmonary hypertension 3. Congestive heart failure 4. Paroxysmal supraventricular tachycardia 5. End-stage renal disease on hemodialysis 6. PEA arrest 59-year-old male with the above history who was initially consulted to my partner, Dr. Shields, for atrial fibrillation. Dr. Shields is of the service therefore I am following the patient now. For details of his admission please see Dr. Shields's note. In summary, the patient has had multiple episodes of PEA in the past and was admitted yesterday in rapid atrial fibrillation/flutter. He was begun on beta-blockers for rate control strategy and since then has done very well. His heart rate has remained at goal. This morning, the patient is laying comfortably in bed, without any cardiovascular complaints and asking when he will be discharged home. His telemetry shows demand pacing with underlying atrial fibrillation. He is now fully anticoagulated. Unfortunately we still do not have a clear cardiovascular history on him and he does not remember much of his past history. 03/16/2020: The patient has no new cardiac complaints today. He just finished hemodialysis. His telemetry shows well-controlled heart rates with intermittent ventricular pacing. Her echocardiogram yesterday was of very poor quality however his systolic function appeared to be normal and leadless pacemaker was noted at the right ventricular apex. He does have a mechanical mitral valve. Physical exam on 03/16/2020: GENERAL: Sleeping but arousable. Oriented x3 with normal mood. Not in acute distress. Well groomed and well developed. HEENT: Normocephalic, atraumatic. Pupils equal. Sclerae anicteric. Oropharynx moist. NECK: No JVD. No carotid bruits. LUNGS: Clear to auscultation bilaterally. Normal respiratory effort without the use of accessory muscles or intercostal retractions. CARDIOVASCULAR: Irregularly irregular rate and rhythm without murmurs, rubs, or gallops. PMI not displaced. SKIN: No lesions or rashes. MUSCULOSKELETAL: No chest tenderness to palpation. NEUROLOGIC: Nonfocal. No gross sensory or motor deficits bilateral upper or lower extremities. Reason For Visit: ATRIAL FLUTTER WITH RAPID VENTRICULAR RATE Physical Exam Vital Signs: Temp Pulse Resp BP Pulse Ox 97.6 F 80 18 104/68 99 03/15/20 20:12 03/16/20 07:00 03/15/20 20:12 03/15/20 20:12 03/15/20 20:12 Intake & Output 03/15/20 03/16/20 03/17/20 06:59 06:59 06:59 Intake Total 260 1144 Balance 260 1144 Weight 55.7 kg 56.2 kg Results Laboratory Results: 03/16/20 04:40 03/16/20 04:40 03/15/20 03/15/20 03/16/20 12:33 22:30 04:40 WBC 8.0 6.0 RBC 4.71 4.05 L Hgb 13.9 11.8 L D Hct 41.9 35.8 L MCV 89 89 MCH 29.5 29.1 MCHC 33.2 32.9 RDW 16.5 H 16.4 H Plt Count 268 226 Sodium Potassium Chloride Carbon Dioxide Anion Gap BUN Creatinine Est GFR ( Amer) Glucose Calcium Urine Color YELLOW Urine Appearance CLEAR Urine pH 5.0 Ur Specific [place] 1.012 Urine Protein NEGATIVE Urine Glucose (UA) NEGATIVE Urine Ketones NEGATIVE Urine Blood NEGATIVE Urine Nitrite NEGATIVE Ur Leukocyte Esterase NEGATIVE Urine WBC (Auto) 4 Urine RBC (Auto) 0 03/16/20 04:40 WBC RBC Hgb Hct MCV MCH MCHC RDW Plt Count Sodium 132.2 L Potassium 4.1 Chloride 102 Carbon Dioxide 25 Anion Gap 5 BUN 29 H Creatinine 2.11 H Est GFR ( Amer) 39 L Glucose 85 Calcium 8.7 Urine Color Urine Appearance Urine pH Ur Specific [place] Urine Protein Urine Glucose (UA) Urine Ketones Urine Blood Urine Nitrite Ur Leukocyte Esterase Urine WBC (Auto) Urine RBC (Auto) 03/14/20 16:22 Troponin I 0.020 Impressions: Chest X-Ray 03/14/20 17:18 IMPRESSION: 1. Abnormal appearance of the chest. Extensive pleuroparenchymal changes as described. Since the prior from last year, patient has also had surgery. If clinically warranted, further evaluation with chest CT may help to better evaluate the lung changes. 03/16/20 04:40 03/16/20 04:40 MCV 89 fl (80-97) 03/16/20 04:40 MCH 29.1 pg (27.0-33.4) 03/16/20 04:40 MCHC 32.9 g/dL (32.0-36.0) 03/16/20 04:40 RDW 16.4 % (11.5-14.0) H 03/16/20 04:40 Seg Neutrophils % 75.6 % (42-78) 03/14/20 16:22 Chloride 102 mmol/L (98-107) 03/16/20 04:40 Carbon Dioxide 25 mmol/L (22-30) 03/16/20 04:40 Anion Gap 5 (5-19) 03/16/20 04:40 Est GFR ( Amer) 39 (>60) L 03/16/20 04:40 Glucose 85 mg/dL (75-110) 03/16/20 04:40 Calcium 8.7 mg/dL (8.4-10.2) 03/16/20 04:40 Magnesium 2.0 mg/dL (1.6-2.3) 03/14/20 16:22 Total Bilirubin 1.4 mg/dL (0.2-1.3) H 03/14/20 16:22 AST 34 U/L (17-59) 03/14/20 16:22 Alkaline Phosphatase 150 U/L (38-126) H 03/14/20 16:22 Total Protein 8.0 g/dL (6.3-8.2) 03/14/20 16:22 Albumin 4.4 g/dL (3.5-5.0) 03/14/20 16:22 Urine Color YELLOW 03/15/20 22:30 Urine Appearance CLEAR 03/15/20 22:30 Urine pH 5.0 (5.0-9.0) 03/15/20 22:30 Ur Specific [place] 1.012 03/15/20 22:30 Urine Protein NEGATIVE mg/dL (NEGATIVE) 03/15/20 22:30 Urine Glucose (UA) NEGATIVE mg/dL (NEGATIVE) 03/15/20 22:30 Urine Ketones NEGATIVE mg/dL (NEGATIVE) 03/15/20 22:30 Urine Blood NEGATIVE (NEGATIVE) 03/15/20 22:30 Urine Nitrite NEGATIVE (NEGATIVE) 03/15/20 22:30 Ur Leukocyte Esterase NEGATIVE (NEGATIVE) 03/15/20 22:30 Urine WBC (Auto) 4 /HPF 03/15/20 22:30 Urine RBC (Auto) 0 /HPF 03/15/20 22:30 03/14/20 16:22 Troponin I 0.020 Current Medication List Generic Name Dose Route Start Last Admin Trade Name Subhash PRN Reason Stop Dose Admin Fluticasone Propionate 2 spray 03/15/20 10:00 03/15/20 09:33 Flonase Nasal Surveyor 50 Mcg/Surveyor 16 Gm NASL 04/14/20 09:59 Not Given DAILY ANTONELLA Furosemide 40 mg 03/15/20 10:00 03/15/20 09:32 Lasix 40 Mg Tablet PO 04/14/20 09:59 40 mg DAILY ANTONELLA Administration Heparin Sodium (Porcine) 3,600 unit 03/16/20 05:00 Heparin Inj 1,000 Unit/Ml 10 Ml Vial IV 03/16/20 23:59 .SPLIT B/N CATHETERS PRN THIS MED IS NOT "PRN" Heparin Sodium (Porcine) 0 - 12,000 unit 03/15/20 13:30 03/15/20 14:10 Heparin Inj 1,000 Unit/Ml 10 Ml Vial IV 04/14/20 13:29 3,414 units .BOLUS PER PROTOCOL PRN Administration RESPOND TO aPTT VALUES Protocol Hydroxyzine HCl 50 mg 03/15/20 22:00 03/15/20 21:34 Atarax 10 Mg Tablet PO 04/14/20 21:59 50 mg QHS ANTONELLA Administration Heparin Sodium/Dextrose 25,000 unit in 250 mls @ 0 mls/hr 03/15/20 13:30 03/16/20 06:52 Heparin Rtu 25,000 Unit/250 Ml D5w Premix IV 04/14/20 13:29 0 mls/hr CONTINUOUS PRN 0 mls/hr THIS MED IS NOT "PRN" Titration Protocol Titrate Metoprolol Tartrate 5 mg 03/14/20 19:05 03/15/20 00:14 Lopressor Inj/Pf 5 Mg/5 Ml Sdv IV 04/13/20 19:04 5 mg Q6HP PRN Administration Give For Hr > 120 Metoprolol Tartrate 25 mg 03/15/20 10:00 03/15/20 21:33 Lopressor 25 Mg Tablet PO 04/14/20 09:59 25 mg Q12 ANTONELLA Administration Ondansetron HCl 4 mg 03/14/20 18:38 03/14/20 19:29 Zofran Inj/Pf 4 Mg/2 Ml Sdv IV 04/13/20 18:37 4 mg Q4HP PRN Administration FOR NAUSEA/VOMITING Oxycodone HCl 5 mg 03/15/20 08:12 03/16/20 00:05 Oxy-Ir 5 Mg Tablet PO 03/22/20 08:11 5 mg Q6HP PRN Administration FOR PAIN Polyethylene Glycol 17 gm 03/15/20 08:12 Miralax Powder 17 Gm/Packet PO 04/14/20 08:11 DAILYP PRN CONSTIPATION Senna/Docusate Sodium 2 each 03/15/20 10:00 03/15/20 09:34 Senna Plus Tablet PO 04/14/20 09:59 Not Given DAILY ANTONELLA Trazodone HCl 50 mg 03/15/20 22:00 03/15/20 21:34 Desyrel 50 Mg Tablet PO 04/14/20 21:59 50 mg QHS ANTONELLA Administration Warfarin Sodium 3 mg 03/15/20 22:00 03/15/20 21:34 Coumadin 3 Mg Tablet PO 04/14/20 21:59 3 mg QHS ANTONELLA Administration Discontinued Medications Generic Name Dose Route Start Last Admin Trade Name Freq PRN Reason Stop Dose Admin Adenosine Confirm 03/14/20 16:21 03/14/20 18:12 Adenocard Inj/Pf 6 Mg/2 Ml Sdv Administered 03/14/20 16:22 Not Given Dose 6 mg IV .STK-MED ONE Adenosine 12 mg 03/14/20 18:02 03/14/20 16:25 Adenocard Inj/Pf 6 Mg/2 Ml Sdv IV 03/14/20 18:03 12 mg NOW ONE Administration Digoxin 0.5 mg 03/14/20 22:00 03/14/20 21:37 Lanoxin Inj 0.5 Mg/2 Ml Ampule IV 03/14/20 22:01 0.5 mg NOW ONE Administration Digoxin 0.125 mg 03/15/20 10:00 Lanoxin 0.125 Mg Tablet PO 04/14/20 09:59 DAILY ANTONELLA Diltiazem HCl Confirm 03/14/20 16:27 03/14/20 18:12 Cardizem Inj 25 Mg/5 Ml Vial Administered 03/14/20 16:28 Not Given Dose 25 mg .ROUTE .STK-MED ONE Diltiazem HCl 20 mg 03/14/20 18:01 03/14/20 16:28 Cardizem Inj 25 Mg/5 Ml Vial IV 03/14/20 18:02 20 mg NOW ONE Administration Enoxaparin Sodium 60 mg 03/15/20 07:00 Lovenox Inj 60 Mg/0.6 Ml Disp.Syrin SUBCUT 04/14/20 06:59 Q12H ANTONELLA Enoxaparin Sodium 55 mg 03/15/20 07:00 03/15/20 07:59 Lovenox Inj 60 Mg/0.6 Ml Disp.Syrin SUBCUT 04/14/20 06:59 55 mg Q12H ANTONELLA Administration Heparin Sodium (Porcine) 5,000 unit 03/14/20 22:00 03/14/20 21:37 Heparin Inj 5,000 Units/Ml 1 Ml Vial SUBCUT 04/13/20 21:59 5,000 unit Q8 ANTONELLA Administration Diltiazem HCl Confirm 03/14/20 16:29 03/14/20 18:12 Cardizem Rtu Inj 125 Mg-D5w 125 Ml Premix Administered 03/14/20 16:30 Not Given Dose 125 mg in 125 mls @ ud IV .STK-MED ONE Metoprolol Succinate 50 mg 03/14/20 19:30 03/14/20 21:43 Toprol Xl 50 Mg Tab.Sr PO 03/14/20 19:31 Not Given NOW ONE Metoprolol Succinate 50 mg 03/15/20 10:00 03/15/20 09:32 Toprol Xl 50 Mg Tab.Sr PO 04/14/20 09:59 50 mg DAILY ANTONELLA Administration Metoprolol Tartrate 2.5 mg 03/14/20 18:01 03/14/20 18:07 Lopressor Inj/Pf 5 Mg/5 Ml Sdv IV 03/14/20 18:02 2.5 mg NOW ONE Administration Metoprolol Tartrate 5 mg 03/14/20 18:03 03/14/20 16:32 Lopressor Inj/Pf 5 Mg/5 Ml Sdv IV 03/14/20 18:04 5 mg NOW ONE Administration Metoprolol Tartrate 2.5 mg 03/14/20 18:57 03/14/20 19:10 Lopressor Inj/Pf 5 Mg/5 Ml Sdv IV 03/14/20 18:58 2.5 mg NOW ONE Administration Metoprolol Tartrate 2.5 mg 03/14/20 19:36 03/14/20 21:43 Lopressor Inj/Pf 5 Mg/5 Ml Sdv IV 03/14/20 19:37 Not Given NOW ONE Metoprolol Tartrate Confirm 03/15/20 11:54 03/15/20 12:08 Lopressor Inj/Pf 5 Mg/5 Ml Sdv Administered 03/15/20 11:55 Not Given Dose 5 mg IV .[facility] ONE Assessment & Plan - Diagnosis (1) Atrial fibrillation Is this a current diagnosis for this admission?: Yes Plan: Rate is now controlled. Anticoagulation has been initiated which I agree with. He remains asymptomatic. At this point cardiology service does not have any further recommendations therefore we will signed off the case. Recommendations: -Agree with increasing Lopressor dose. -Continue with anticoagulation with an INR goal of 2.5-3.5 given his mitral valve mechanical prosthesis. -Recommend that the patient continue to follow-up with cardiology at [place]. -We will sign off for now, please call [phone] with questions or concerns. (2) ESRD (end stage renal disease) on dialysis Is this a current diagnosis for this admission?: Yes Plan: The patient will continue to undergo dialysis as scheduled. (3) Mitral valve stenosis Qualifiers: Cardiac valve disease etiology: rheumatic Qualified Code(s): I05.0 - Rheumatic mitral stenosis Is this a current diagnosis for this admission?: Yes Plan: The patient has a mechanical prosthesis in the mitral valve position. His echocardiogram yesterday demonstrated that the valve is functioning well and it is well-seated. Recommendations: -Continue with anticoagulation with an INR goal between 2.5 and 3.5. -We will sign off the case for now.
--- NOTE | 2020-03-16 12:15 | PDOC PROGRESS REPORT ---
Subjective Progress Note for:: 03/16/20 Reason For Visit: Patient seen today on dialysis. Undergoing dialysis without any issues. Vital signs are stable. Plan to remove 1 L of fluid as tolerated. Patient denies any history of chest pain or shortness of breath. He feels back to baseline.Labs and medications were reviewed. Bladder scan was not done. He says he is making very little urine. Physical Exam Vital Signs: Temp Pulse Resp BP Pulse Ox 97.3 F 80 17 100/74 96 03/16/20 10:32 03/16/20 10:32 03/16/20 10:32 03/16/20 10:32 03/16/20 10:32 Intake & Output 03/15/20 03/16/20 03/17/20 06:59 06:59 06:59 Intake Total 260 1144 0 Balance 260 1144 0 Weight 55.7 kg 56.2 kg General appearance: PRESENT: no acute distress Respiratory exam: PRESENT: clear to auscultation [place]. ABSENT: crackles Cardiovascular exam: PRESENT: RRR, +S1, +S2. ABSENT: rubs GI/Abdominal exam: PRESENT: normal bowel sounds, soft. ABSENT: organomegaly, tenderness Extremities exam: ABSENT: pedal edema Neurological exam: PRESENT: alert, awake, oriented to person, oriented to place Psychiatric exam: PRESENT: appropriate affect Results Laboratory Results: 03/16/20 04:40 03/16/20 04:40 03/15/20 03/15/20 03/16/20 12:33 22:30 04:40 WBC 8.0 6.0 RBC 4.71 4.05 L Hgb 13.9 11.8 L D Hct 41.9 35.8 L MCV 89 89 MCH 29.5 29.1 MCHC 33.2 32.9 RDW 16.5 H 16.4 H Plt Count 268 226 Sodium Potassium Chloride Carbon Dioxide Anion Gap BUN Creatinine Est GFR ( Amer) Glucose Calcium Urine Color YELLOW Urine Appearance CLEAR Urine pH 5.0 Ur Specific [place] 1.012 Urine Protein NEGATIVE Urine Glucose (UA) NEGATIVE Urine Ketones NEGATIVE Urine Blood NEGATIVE Urine Nitrite NEGATIVE Ur Leukocyte Esterase NEGATIVE Urine WBC (Auto) 4 Urine RBC (Auto) 0 03/16/20 04:40 WBC RBC Hgb Hct MCV MCH MCHC RDW Plt Count Sodium 132.2 L Potassium 4.1 Chloride 102 Carbon Dioxide 25 Anion Gap 5 BUN 29 H Creatinine 2.11 H Est GFR ( Amer) 39 L Glucose 85 Calcium 8.7 Urine Color Urine Appearance Urine pH Ur Specific [place] Urine Protein Urine Glucose (UA) Urine Ketones Urine Blood Urine Nitrite Ur Leukocyte Esterase Urine WBC (Auto) Urine RBC (Auto) 03/14/20 16:22 Troponin I 0.020 Impressions: Chest X-Ray 03/14/20 17:18 IMPRESSION: 1. Abnormal appearance of the chest. Extensive pleuroparenchymal changes as described. Since the prior from last year, patient has also had surgery. If clinically warranted, further evaluation with chest CT may help to better evaluate the lung changes. Assessment & Plan - Diagnosis (1) Atrial fibrillation Is this a current diagnosis for this admission?: Yes Plan: Rate controlled. Adequately anticoagulated. (2) ESRD (end stage renal disease) on dialysis Is this a current diagnosis for this admission?: Yes Plan: Undergoing dialysis without any issues. Plan to remove approximately a liter of fluid as tolerated. Dialysis being supervised to ensure safe and smooth procedure. Dialysis orders were reviewed with the treating dialysis nurse. 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 (4) HTN (hypertension) Qualifiers: Hypertension type: essential hypertension Qualified Code(s): I10 - Essential (primary) hypertension Plan: Low normal and stable. Asymptomatic.
--- NOTE | 2020-03-16 18:01 | RADIOLOGY REPORT (SQ) ---
EXAM DESCRIPTION: CT CHEST WITHOUT IMAGES COMPLETED DATE/TIME: 03/16/2020 5:12 pm REASON FOR STUDY: right lung opacity COMPARISON: 04/21/2019 TECHNIQUE: CT scan performed of the chest without intravenous contrast. Images reviewed with lung, soft tissue and bone windows. Reconstructed coronal and sagittal MPR images reviewed. All images st ored on PACS. All CT scanners at this facility use dose modulation, iterative reconstruction, and/or weight based d osing when appropriate to reduce radiation dose to as low as reasonably achievable (ALARA). [facility]: Dose Right [facility]: CareDose [facility]: Dose Right [facility]: Teradose 4D [facility]: Smart Straight Up English RADIATION DOSE: CT Rad equipment meets quality standard of care and radiation dose reduction techniq ues were employed. CTDIvol: 6.0 mGy. DLP: 239 mGy-cm. LIMITATIONS: No technical limitations. FINDINGS: LUNGS AND PLEURA: Since the previous examination, new large right pleural effusion. Mild consolidation in the right middle and lower lobes with associated air bronchograms, may be on the ba sis of pneumonia and or atelectasis. New mild to moderate left pleural effusion with left lower lobe compressive atelectasis or pneumonia. Prior granulomatous disease, stable finding. No pneumothorax. The central airways are clear. HILAR AND MEDIASTINAL STRUCTURES: Stable appearance to the mediastinal and right hilar adenopathy. HEART AND VASCULAR STRUCTURES: No aneurysm. No pericardial effusion. UPPER ABDOMEN: Diffuse thickening of the wall of the gallbladder. Mild volume of free fluid in the perihepatic and perisplenic regions. Limited exam. THYROID AND OTHER SOFT TISSUES: No masses. No adenopathy. BONES: No significant finding. HARDWARE: Prior anterior median sternotomy. Left sided dialysis catheter, with the tip at in the re gion of the right atrium, new finding since the prior study. Intracardiac devices. OTHER: No other significant findings. IMPRESSION: 1. Since the previous examination dated 04/21/2019, new development of a large right ple ural effusion. Mild consolidation in the right middle and lower lobes with associated air bronchogra ms, may be on the basis of pneumonia and or atelectasis. 2. New mild to moderate left pleural effusion with left lower lobe compressive atelectasis or pneumo taye. 3. Stable mediastinal and right hilar lymphadenopathy. 4. Interval placement left-sided dialysis catheter. 5. Mild volume of ascites in the abdomen. 6. Diffuse gallbladder wall thickening. 7. Additional findings as above. TECHNICAL DOCUMENTATION: JOB ID: [id number] Quality ID # [id number]: Final reports with documentation of one or more dose reduction techniques (e.g., Au tomated exposure control, adjustment of the mA and/or kV according to patient size, use of iterative reconstruction technique) 2010 [employer]- All Rights Reserved Reading location - IP/workstation name: [email or web address]
[2020-03-16] MEDS ORDERED: MIDODRINE HCL 5 MG TABLET PO ONE (19:00)
[2020-03-16] MEDS: METOPROLOL TARTRATE 50 MG TABLET PO SCH (21:20)
[2020-03-16] MEDS: HYDROXYZINE HCL 10 MG TABLET PO SCH (21:24)
[2020-03-16] MEDS: TRAZODONE HCL 50 MG TABLET PO SCH (21:24)
[2020-03-16] MEDS ORDERED: METOPROLOL TARTRATE 25 MG TABLET PO SCH (22:00)
[2020-03-17 05:37] LABS: HEMATOCRIT 35.2 % (37.9-51.0); HEMOGLOBIN 11.8 g/dL (13.5-17.0); MEAN CORPUSCULAR HEMOGLOBIN 29.5 pg (27.0-33.4); MEAN CORPUSCULAR HGB CONC 33.4 g/dL (32.0-36.0); MEAN CORPUSCULAR VOLUME 88 fl (80-97); PLATELET COUNT 217 10^3/uL (150-450); RED CELL DISTRIBUTION WIDTH 16.3 % (11.5-14.0); WHITE BLOOD COUNT 5.2 10^3/uL (4.0-10.5)
[2020-03-17 06:15] LABS: ANION GAP 5 (5-19); BLOOD UREA NITROGEN 19 mg/dL (7-20); CALCIUM 8.6 mg/dL (8.4-10.2); CARBON DIOXIDE 29 mmol/L (22-30); CHLORIDE 99 mmol/L (98-107); DIGOXIN 1.34 ng/mL (0.8-2.0); GLUCOSE 84 mg/dL (75-110)
[2020-03-17 07:17] LABS: INTERNATIONAL RATION (INR) 1.76; PROTHROMBIN TIME 20.7 SEC (11.4-15.4)
[2020-03-17 07:18] LABS: PARTIAL THROMBOPLASTIN TIME 48.1 SEC (23.5-35.8)
[2020-03-17] MEDS: HEPARIN SOD (PORCINE) 1,000 UNIT/ML 10 ML VIAL IV PRN (08:46)
[2020-03-17] MEDS: FLUTICASONE NASAL SPRAY 50 MCG/SPRY 120 SPRAY/16 GM NASL SCH (09:15)
[2020-03-17] MEDS: SENNOSIDES/DOCUSATE 8.6-50 MG 1 EACH TABLET PO SCH (09:15)
[2020-03-17] MEDS: METOPROLOL TARTRATE 50 MG TABLET PO SCH ×2 (09:19→21:49)
[2020-03-17] MEDS: FUROSEMIDE 40 MG TABLET PO SCH (09:37)
--- NOTE | 2020-03-17 10:19 | PDOC PROGRESS REPORT ---
Subjective Progress Note for:: 03/17/20 Subjective:: Patient states that shortness of breath is improved today. Denies any chest pain at this time. Discussed plan of care elaborately with patient patient. Reason For Visit: ATRIAL FLUTTER WITH RAPID VENTRICULAR RATE Physical Exam Vital Signs: Temp Pulse Resp BP Pulse Ox 98.2 F 139 H 16 95/59 L 96 03/17/20 07:21 03/17/20 07:21 03/17/20 07:21 03/17/20 07:21 03/17/20 07:21 Intake & Output 03/16/20 03/17/20 03/18/20 06:59 06:59 06:59 Intake Total 1144 380 128 Output Total 600 Balance 1144 -220 128 Weight 56.2 kg 54.2 kg General appearance: PRESENT: no acute distress, cooperative Neck exam: ABSENT: JVD Respiratory exam: PRESENT: clear to auscultation [place], unlabored. ABSENT: tachypnea, wheezes Cardiovascular exam: PRESENT: irregular rhythm, +S1, +S2. ABSENT: systolic murmur, tachycardia GI/Abdominal exam: PRESENT: soft. ABSENT: rebound, rigid, tenderness Neurological exam: PRESENT: alert, awake, oriented to person, oriented to place, oriented to time, oriented to situation Results Laboratory Results: 03/17/20 04:43 03/17/20 04:43 03/17/20 03/17/20 04:43 04:43 WBC 5.2 RBC 4.00 L Hgb 11.8 L Hct 35.2 L MCV 88 MCH 29.5 MCHC 33.4 RDW 16.3 H Plt Count 217 Sodium 132.9 L Potassium 4.0 Chloride 99 Carbon Dioxide 29 Anion Gap 5 BUN 19 Creatinine 1.81 H Est GFR ( Amer) 47 L Glucose 84 Calcium 8.6 03/14/20 16:22 Troponin I 0.020 Impressions: Chest X-Ray 03/14/20 17:18 IMPRESSION: 1. Abnormal appearance of the chest. Extensive pleuroparenchymal changes as described. Since the prior from last year, patient has also had surgery. If clinically warranted, further evaluation with chest CT may help to better evaluate the lung changes. Chest CT 03/16/20 00:00 IMPRESSION: 1. Since the previous examination dated 04/21/2019, new development of a large right pleural effusion. Mild consolidation in the right middle and lower lobes with associated air bronchograms, may be on the basis of pneumonia and or atelectasis. 2. New mild to moderate left pleural effusion with left lower lobe compressive atelectasis or pneumonia. 3. Stable mediastinal and right hilar lymphadenopathy. 4. Interval placement left-sided dialysis catheter. 5. Mild volume of ascites in the abdomen. 6. Diffuse gallbladder wall thickening. 7. Additional findings as above. Assessment and Plan - Diagnosis (1) Atrial flutter with rapid ventricular response Is this a current diagnosis for this admission?: Yes Plan: Likely persistent. Patient's rate seems to be better today. Continue Lopressor 50 mg every 12 hours. On anticoagulation. Will ambulate patient and see how patient's heart rate and pulse ox fare (2) Respiratory failure with hypoxia Qualifiers: Chronicity: acute Qualified Code(s): J96.01 - Acute respiratory failure with hypoxia Is this a current diagnosis for this admission?: Yes Plan: Patient has COPD but has never been using O2. His hypoxia is likely secondary to pleural effusions. We will try to wean off oxygen with fluid removal and ambulate patient. (3) Bilateral pleural effusion Is this a current diagnosis for this admission?: Yes Plan: Chest CT revealing moderate to large sized effusion in the right lung and spent some effusion in the left lung. I suspect this is due to his chronic diastolic CHF secondary to severe mitral valve stenosis for which patient underwent mitral valve replacement via open sternotomy in 10/2019 at [place]. I have discussed with radiologist and we would compare CT scan done at [place] with ours to see if any worsening of the effusion. Ultimately patient will benefit from fluid removal which can be done either through dialysis and diuretics versus therapeutic thoracentesis. This will be partly dependent on whether patient is able to be successfully weaned off oxygen and if patient ambulates without feeling dyspneic while getting hypoxic. I am coordinating plans as to how to approach safe right thoracentesis with radiology if this is needed. (4) Mitral valve stenosis Qualifiers: Cardiac valve disease etiology: rheumatic Qualified Code(s): I05.0 - Rheumatic mitral stenosis Is this a current diagnosis for this admission?: Yes Plan: Patient has a history of [facility] Samuel mechanical mitral valve replacement at [place] on 11/10/2019. INR goal of 2.5-3.5 given mechanical mitral valve + A. fib INR still subtherapeutic. Warfarin dose held last night in anticipation for potential need of thoracentesis. Continue heparin drip Echocardiogram 02/2020 confirms mechanical mitral valve, normal EF mild pulmonary hypertension and intracardiac leadless pacemaker (5) COPD (chronic obstructive pulmonary disease) Qualifiers: COPD type: unspecified COPD Qualified Code(s): J44.9 - Chronic obstructive pulmonary disease, unspecified Is this a current diagnosis for this admission?: Yes Plan: Nebs as needed. (6) CKD (chronic kidney disease) requiring chronic dialysis Is this a current diagnosis for this admission?: Yes Plan: Consulted crew director. We will continue patient's dialysis as scheduled Saturday. Records from [place] reviewed. Patient seems to have been on dialysis after developing DEMETRIUS on CKD following PEA arrest tube in November 2019 and has been on dialysis ever since. Will need close outpatient nephrology follow-up. Continue Lasix (7) Tachy-barry syndrome Is this a current diagnosis for this admission?: Yes Plan: Noted on records reviewed from [place]. Patient became bradycardic and went into PEA arrest in November 2019 after which intracardiac leadless pacemaker was placed. Monitor on telemetry. Continue management of A. fib. - Plan Summary Summary: Obtained records of recent stay at [facility]. Patient was at [facility] from 11/09/2019 until 02/28/2020. Initially went in for mitral valve replacement. Brief summary of stay as below: Preop assessment was done on 09/16/2019: Echo showed severe mitral stenosis, EF 55%, PASP 44.6 mmHg, moderate to severe TR. RHC: PCWP 19, PA 87/33, mPAP 51 mmHg, PA SaO2 67%, 10 Wood units PVR, CO 3.2 done on 11/10/2019 via open heart surgery replacement of [facility] Samuel mechanical mitral valve. LHC: 0% stenosis all throughout RCA, LAD, left main and left circumflex MVR performed via open heart surgery on 11/10/[address] Robbins. Went into atrial fibrillation with RVR requiring DCCV on 11/26/2019. Initially placed on amiodarone but later discontinued. Right pleural effusion noted then and treated with diuretics. Also treated at that time for possible pneumonia and oral thrush. Went into RVR again on 12/08/2019 and underwent DCCV but subsequently became bradycardic leading to PEA arrest. Successfully resuscitated. Underwent ex-lap to evaluate abdominal distention and gallbladder on 12/08/2019 but surgery was unrevealing. 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 Subsequent to the PEA arrest he developed shock liver which later resolved and also renal failure and has been on dialysis since then. Improved underwent physical therapy and discharged home to continue with outpatient dialysis. Set to follow-up with his PCP, turbinated bone grinder Dr. Papi Lou in 4 to 6 weeks, and CT surgery Dr. Robbins if needed. - Time Time Spent with patient: 15-24 minutes
--- NOTE | 2020-03-17 12:55 | PDOC PROGRESS REPORT ---
Subjective Progress Note for:: 03/17/20 Reason For Visit: Patient seen today. He has difficulty with breathing especially on exertion. Denies any history of chest pain. He had an uneventful dialysis yesterday with good ultrafiltration. He did have a follow-up CT scan ordered by the hospitalist which I reviewed which shows a large right pleural effusion. No clear-cut evidences of severe consolidation. His white count is normal. He denies any history of fever or chills. Labs and medications were reviewed. Physical Exam Vital Signs: Temp Pulse Resp BP Pulse Ox 98.2 F 139 H 16 95/59 L 96 03/17/20 07:21 03/17/20 07:21 03/17/20 07:21 03/17/20 07:21 03/17/20 07:21 Intake & Output 03/16/20 03/17/20 03/18/20 06:59 06:59 06:59 Intake Total 1144 380 128 Output Total 600 Balance 1144 -220 128 Weight 56.2 kg 54.2 kg General appearance: PRESENT: no acute distress Respiratory exam: PRESENT: clear to auscultation mon[place], decreased breath sounds. ABSENT: crackles Cardiovascular exam: PRESENT: RRR, +S1, +S2. ABSENT: rubs GI/Abdominal exam: PRESENT: normal bowel sounds, soft. ABSENT: organomegaly, tenderness Neurological exam: PRESENT: alert, awake, oriented to person, oriented to place Psychiatric exam: PRESENT: appropriate affect Results Laboratory Results: 03/17/20 04:43 03/17/20 04:43 03/17/20 03/17/20 04:43 04:43 WBC 5.2 RBC 4.00 L Hgb 11.8 L Hct 35.2 L MCV 88 MCH 29.5 MCHC 33.4 RDW 16.3 H Plt Count 217 Sodium 132.9 L Potassium 4.0 Chloride 99 Carbon Dioxide 29 Anion Gap 5 BUN 19 Creatinine 1.81 H Est GFR ( Amer) 47 L Glucose 84 Calcium 8.6 03/14/20 16:22 Troponin I 0.020 Impressions: Chest X-Ray 03/14/20 17:18 IMPRESSION: 1. Abnormal appearance of the chest. Extensive pleuroparenchymal changes as described. Since the prior from last year, patient has also had surgery. If clinically warranted, further evaluation with chest CT may help to better evaluate the lung changes. Chest CT 03/16/20 00:00 IMPRESSION: 1. Since the previous examination dated 04/21/2019, new development of a large right pleural effusion. Mild consolidation in the right middle and lower lobes with associated air bronchograms, may be on the basis of pneumonia and or atelectasis. 2. New mild to moderate left pleural effusion with left lower lobe compressive atelectasis or pneumonia. 3. Stable mediastinal and right hilar lymphadenopathy. 4. Interval placement left-sided dialysis catheter. 5. Mild volume of ascites in the abdomen. 6. Diffuse gallbladder wall thickening. 7. Additional findings as above. Assessment & Plan - Diagnosis (1) Atrial fibrillation Is this a current diagnosis for this admission?: Yes Plan: Rate controlled. Adequately anticoagulated. (2) ESRD (end stage renal disease) on dialysis Is this a current diagnosis for this admission?: Yes Plan: Plan for next dialysis tomorrow. Orders have been placed. 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 (4) HTN (hypertension) Qualifiers: Hypertension type: essential hypertension Qualified Code(s): I10 - Essential (primary) hypertension Plan: Low normal and stable. Asymptomatic. (5) Bilateral pleural effusion Is this a current diagnosis for this admission?: Yes Plan: Large right pleural effusion which needs thoracentesis. Discussed with hospitalist but since he has got elevated INR given the fact he is on anticoagulation for his mechanical mitral valve that has to be corrected before he is needled.
[2020-03-17 14:01] LABS: INTERNATIONAL RATION (INR) 1.81; PROTHROMBIN TIME 21.3 SEC (11.4-15.4)
[2020-03-17] MEDS: HYDROXYZINE PAMOATE 50 MG CAPSULE PO SCH (21:49)
[2020-03-17] MEDS: TRAZODONE HCL 50 MG TABLET PO SCH (21:49)
[2020-03-18] MEDS ORDERED: HEPARIN SOD (PORCINE) 1,000 UNIT/ML 10 ML VIAL IV PRN (05:00)
[2020-03-18 06:08] LABS: HEMATOCRIT 36.3 % (37.9-51.0); HEMOGLOBIN 12.1 g/dL (13.5-17.0); MEAN CORPUSCULAR HEMOGLOBIN 29.4 pg (27.0-33.4); MEAN CORPUSCULAR HGB CONC 33.3 g/dL (32.0-36.0); MEAN CORPUSCULAR VOLUME 88 fl (80-97); PLATELET COUNT 209 10^3/uL (150-450); RED BLOOD COUNT 4.12 10^6/uL (4.35-5.55); WHITE BLOOD COUNT 4.6 10^3/uL (4.0-10.5)
[2020-03-18 06:09] LABS: INTERNATIONAL RATION (INR) 1.49; PROTHROMBIN TIME 18.2 SEC (11.4-15.4)
[2020-03-18 06:10] LABS: PARTIAL THROMBOPLASTIN TIME 34.4 SEC (23.5-35.8)
[2020-03-18 06:22] LABS: ANION GAP 9 (5-19); BLOOD UREA NITROGEN 22 mg/dL (7-20); CARBON DIOXIDE 27 mmol/L (22-30); CHLORIDE 97 mmol/L (98-107); GLUCOSE 80 mg/dL (75-110); POTASSIUM 4.2 mmol/L (3.6-5.0); TOTAL PROTEIN 6.3 g/dL (6.3-8.2)
[2020-03-18] MEDS: SENNOSIDES/DOCUSATE 8.6-50 MG 1 EACH TABLET PO SCH (09:26)
[2020-03-18] MEDS: FLUTICASONE NASAL SPRAY 50 MCG/SPRY 120 SPRAY/16 GM NASL SCH (09:26)
[2020-03-18] MEDS: FUROSEMIDE 40 MG TABLET PO SCH (09:31)
[2020-03-18] MEDS: METOPROLOL TARTRATE 50 MG TABLET PO SCH ×2 (09:32→22:36)
--- NOTE | 2020-03-18 10:26 | PDOC PROGRESS REPORT ---
Subjective Progress Note for:: 03/18/20 Subjective:: Patient is willing to proceed with ultrasound-guided thoracentesis today. States that when he ambulated yesterday he felt dyspneic. Denies any fever or chills. Reason For Visit: ATRIAL FLUTTER WITH RAPID VENTRICULAR RATE Physical Exam Vital Signs: Temp Pulse Resp BP Pulse Ox 97.6 F 80 16 117/79 96 03/17/20 19:12 03/18/20 09:10 03/18/20 09:10 03/17/20 19:12 03/18/20 09:10 Intake & Output 03/17/20 03/18/20 03/19/20 06:59 06:59 06:59 Intake Total 380 876 Output Total 600 775 Balance -220 101 Weight 54.2 kg 55.1 kg General appearance: PRESENT: no acute distress, cooperative Neck exam: ABSENT: JVD Respiratory exam: PRESENT: clear to auscultation mon[place], decreased breath sounds - Right lung base, unlabored. ABSENT: tachypnea, wheezes Cardiovascular exam: PRESENT: irregular rhythm, +S1, +S2. ABSENT: tachycardia GI/Abdominal exam: PRESENT: soft. ABSENT: rebound, rigid, tenderness Neurological exam: PRESENT: alert, awake, oriented to person, oriented to place, oriented to time Results Laboratory Results: 03/18/20 05:20 03/18/20 05:20 03/18/20 03/18/20 05:20 05:20 WBC 4.6 RBC 4.12 L Hgb 12.1 L Hct 36.3 L MCV 88 MCH 29.4 MCHC 33.3 RDW 16.0 H Plt Count 209 Sodium 133.1 L Potassium 4.2 Chloride 97 L Carbon Dioxide 27 Anion Gap 9 BUN 22 H Creatinine 1.92 H Est GFR ( Amer) 44 L Glucose 80 Calcium 9.0 Total Protein 6.3 03/14/20 16:22 Troponin I 0.020 Impressions: Chest X-Ray 03/14/20 17:18 IMPRESSION: 1. Abnormal appearance of the chest. Extensive pleuroparenchymal changes as described. Since the prior from last year, patient has also had surgery. If clinically warranted, further evaluation with chest CT may help to better evaluate the lung changes. Chest CT 03/16/20 00:00 IMPRESSION: 1. Since the previous examination dated 04/21/2019, new development of a large right pleural effusion. Mild consolidation in the right middle and lower lobes with associated air bronchograms, may be on the basis of pneumonia and or atelectasis. 2. New mild to moderate left pleural effusion with left lower lobe compressive atelectasis or pneumonia. 3. Stable mediastinal and right hilar lymphadenopathy. 4. Interval placement left-sided dialysis catheter. 5. Mild volume of ascites in the abdomen. 6. Diffuse gallbladder wall thickening. 7. Additional findings as above. Assessment and Plan - Diagnosis (1) Atrial flutter with rapid ventricular response Is this a current diagnosis for this admission?: Yes Plan: Persistent atrial fibrillation. RVR seems to have resolved. Continue Lopressor 50 mg every 12 hours. On chronic anticoagulation. (2) Respiratory failure with hypoxia Qualifiers: Chronicity: acute Qualified Code(s): J96.01 - Acute respiratory failure with hypoxia Is this a current diagnosis for this admission?: Yes Plan: Patient has COPD but has never been using O2. His hypoxia is likely secondary to pleural effusions. Hypoxia seems to have improved and will probably be okay on room air. However still gets dyspneic on exertion. (3) Bilateral pleural effusion Is this a current diagnosis for this admission?: Yes Plan: Chest CT revealing moderate to large sized effusion in the right lung and spent some effusion in the left lung. I suspect this is due to his chronic diastolic CHF secondary to severe mitral valve stenosis for which patient underwent mitral valve replacement via open sternotomy in 10/2019 at [place]. We will proceed with ultrasound-guided thoracentesis more for therapeutic purposes given his significant dyspnea on exertion yesterday limiting his function. Incentive spirometer following thoracentesis. (4) Mitral valve stenosis Qualifiers: Cardiac valve disease etiology: rheumatic Qualified Code(s): I05.0 - Rh eumatic mitral stenosis Is this a current diagnosis for this admission?: Yes Plan: Patient has a history of [facility] Samuel mechanical mitral valve replacement at [place] on 11/10/2019. Echocardiogram 02/2020 confirms mechanical mitral valve, normal EF mild pulmonary hypertension and intracardiac leadless pacemaker INR goal of 2.5-3.5 given mechanical mitral valve + A. fib Warfarin on hold for thoracentesis today. Following thoracentesis, we will restart warfarin with heparin bridge. (5) COPD (chronic obstructive pulmonary disease) Qualifiers: COPD type: unspecified COPD Qualified Code(s): J44.9 - Chronic obstructive pulmonary disease, unspecified Is this a current diagnosis for this admission?: Yes Plan: Nebs as needed. (6) CKD (chronic kidney disease) requiring chronic dialysis Is this a current diagnosis for this admission?: Yes Plan: Nephrology following. We will continue patient's dialysis as scheduled Saturday. Records from [place] reviewed. Patient seems to have been on dialysis after developing DEMETRIUS on CKD following PEA arrest tube in November 2019 and has been on dialysis ever since. Will need close outpatient nephrology follow-up. Continue Lasix (7) Tachy-barry syndrome Is this a current diagnosis for this admission?: Yes Plan: Noted on records reviewed from [place]. Patient became bradycardic and went into PEA arrest in November 2019 after which intracardiac leadless pacemaker was placed. Monitor on telemetry. Continue management of A. fib. - Plan Summary Summary: Obtained records of recent stay at [facility]. Patient was at [place] from 11/09/2019 until 02/28/2020. Initially went in for mitral valve replacement. Brief summary of stay as below: Preop assessment was done on 09/16/2019: Echo showed severe mitral stenosis, EF 55%, PASP 44.6 mmHg, moderate to severe TR. RHC: PCWP 19, PA 87/33, mPAP 51 mmHg, PA SaO2 67%, 10 Wood units PVR, CO 3.2 done on 11/10/2019 via open heart surgery replacement of [facility] Samuel mechanical mitral valve. LHC: 0% stenosis all throughout RCA, LAD, left main and left circumflex MVR performed via open heart surgery on 11/10/[address] Robbins. Went into atrial fibrillation with RVR requiring DCCV on 11/26/2019. Initially placed on amiodarone but later discontinued. Right pleural effusion noted then and treated with diuretics. Also treated at that time for possible pneumonia and oral thrush. Went into RVR again on 12/08/2019 and underwent DCCV but subsequently became bradycardic leading to PEA arrest. Successfully resuscitated. Underwent ex-lap to evaluate abdominal distention and gallbladder on 12/08/2019 but surgery was unrevealing. 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 Subsequent to the PEA arrest he developed shock liver which later resolved and also renal failure and has been on dialysis since then. Improved underwent physical therapy and discharged home to continue with outp atient dialysis. Set to follow-up with his PCP, vinyl hanger Dr. Papi Lou in 4 to 6 weeks, and CT surgery Dr. Robbins if needed.
--- NOTE | 2020-03-18 15:28 | PDOC PROGRESS REPORT ---
Subjective Progress Note for:: 03/18/20 Reason For Visit: patient seen today on dialysis. Under going HD without issues. He is scheduled for a right thoracentesis later today.He still complains of shortness of breath with exertion. No complaints of any chest pains fever or chills. Labs and medications were reviewed. Dialysis orders were reviewed with the treating dialysis nurse. Physical Exam Vital Signs: Temp Pulse Resp BP Pulse Ox 97.9 F 89 18 105/72 92 03/18/20 11:22 03/18/20 14:00 03/18/20 11:22 03/18/20 11:22 03/18/20 11:22 Intake & Output 03/17/20 03/18/20 03/19/20 06:59 06:59 06:59 Intake Total 380 876 480 Output Total 600 775 300 Balance -220 101 180 Weight 54.2 kg 55.1 kg General appearance: PRESENT: no acute distress Respiratory exam: PRESENT: clear to auscultation monroe, decreased breath sounds. ABSENT: crackles Cardiovascular exam: PRESENT: RRR, +S1, +S2. ABSENT: rubs GI/Abdominal exam: PRESENT: normal bowel sounds, soft. ABSENT: organomegaly, tenderness Extremities exam: ABSENT: pedal edema Neurological exam: PRESENT: alert, awake, oriented to person, oriented to place Skin exam: ABSENT: cyanosis, erythema, mottled Results Laboratory Results: 03/18/20 05:20 03/18/20 05:20 03/18/20 03/18/20 05:20 05:20 WBC 4.6 RBC 4.12 L Hgb 12.1 L Hct 36.3 L MCV 88 MCH 29.4 MCHC 33.3 RDW 16.0 H Plt Count 209 Sodium 133.1 L Potassium 4.2 Chloride 97 L Carbon Dioxide 27 Anion Gap 9 BUN 22 H Creatinine 1.92 H Est GFR ( Amer) 44 L Glucose 80 Calcium 9.0 Total Protein 6.3 03/14/20 16:22 Troponin I 0.020 Impressions: Chest X-Ray 03/14/20 17:18 IMPRESSION: 1. Abnormal appearance of the chest. Extensive pleuroparenchymal changes as described. Since the prior from last year, patient has also had surgery. If clinically warranted, further evaluation with chest CT may help to better evaluate the lung changes. Chest CT 03/16/20 00:00 IMPRESSION: 1. Since the previous examination dated 04/21/2019, new development of a large right pleural effusion. Mild consolidation in the right middle and lower lobes with associated air bronchograms, may be on the basis of pneumonia and or atelectasis. 2. New mild to moderate left pleural effusion with left lower lobe compressive atelectasis or pneumonia. 3. Stable mediastinal and right hilar lymphadenopathy. 4. Interval placement left-sided dialysis catheter. 5. Mild volume of ascites in the abdomen. 6. Diffuse gallbladder wall thickening. 7. Additional findings as above. Assessment & Plan - Diagnosis (1) ESRD (end stage renal disease) on dialysis Is this a current diagnosis for this admission?: Yes Plan: Patient undergoing dialysis currently without any issues. Vital signs are stable. Dialysis being supervised to ensure safe and smooth procedure. Plan to remove less than a liter of fluid as tolerated. Dialysis orders reviewed with the treating dialysis nurse. (2) Atrial fibrillation Is this a current diagnosis for this admission?: Yes Plan: Rate controlled. Adequately anticoagulated. 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 (4) HTN (hypertension) Qualifiers: Hypertension type: essential hypertension Qualified Code(s): I10 - Essential (primary) hypertension Plan: Low normal and stable. Asymptomatic. (5) Bilateral pleural effusion Is this a current diagnosis for this admission?: Yes Plan: Large right pleural effusion which needs thoracentesis. This has been scheduled for later today.
--- NOTE | 2020-03-18 15:50 | RADIOLOGY REPORT (SQ) ---
EXAM DESCRIPTION: CHEST SINGLE VIEW IMAGES COMPLETED DATE/TIME: 03/18/2020 3:35 pm REASON FOR STUDY: S/P RT THORACENTESIS COMPARISON: 03/14/2020 EXAM PARAMETERS: NUMBER OF VIEWS: One view. TECHNIQUE: Single frontal radiographic view of the chest acquired. RADIATION DOSE: NA LIMITATIONS: None. FINDINGS: LUNGS AND PLEURA: Decreased size of the right-sided pleural effusion post thoracentesis. Residual mild effusion and basilar consolidation, likely atelectasis. No pneumothorax. Unremarkable left hemithorax. MEDIASTINUM AND HILAR STRUCTURES: Stable. HEART AND VASCULAR STRUCTURES: Enlarged, stable. BONES: No acute findings. HARDWARE: Sternotomy changes. Mitral valvular prostheses. Left internal jugular central venous cath eter. Loop recorder overlies left chest. OTHER: No other significant finding. IMPRESSION: No pneumothorax post thoracentesis. Mild residual effusion and basilar opacities, likely atelectasis. TECHNICAL DOCUMENTATION: JOB ID: [id number] 2010 [employer]- All Rights Reserved Reading location - IP/workstation name: [email or web address]
--- NOTE | 2020-03-18 16:14 | RADIOLOGY REPORT (SQ) ---
EXAM DESCRIPTION: U/S THORACENTESIS WITH IMAGING IMAGES COMPLETED DATE/TIME: 03/18/2020 3:53 pm REASON FOR STUDY: Large right pleural effusion COMPARISON: 03/16/2020 CT LIMITATIONS: None. PROCEDURE: Procedure, risks, benefit, and alternative explained to patient who then gave written con sent. The posterior right chest wall was marked using ultrasound guidance. A time-out was called fo r correct marking verification. Chest prepped and draped using sterile technique. Local anesthesia a chieved using 10 ml of 1% lidocaine injection. A 6fr Safe-T- Centesis set [facility]. Fluid was aspirated. The catheter was removed and the entry site was covered wit h sterile bandage. No immediate complications noted. Images acquired during the procedure were stored on PACS. FINDINGS: ENTRY SITE: posterior right chest. FLUID VOLUME: 900 cc FLUID ANALYSIS: Straw-colored OTHER: Fluid sent to the lab for testing. IMPRESSION: SUCCESSFUL THORACENTESIS USING ULTRASOUND GUIDANCE. COMMENT: Patient medication list reviewed: Yes- Quality ID# [id number]:Eligible professional attests to doc umenting in the medical record they obtained, updated, or reviewed the patient's current medications. TECHNICAL DOCUMENTATION: JOB ID: [id number] 2010 [employer]- All Rights Reserved Reading location - IP/workstation name: [email or web address]
[2020-03-18 17:45] LABS: FLUID SOURCE LUNG; FLUID TYPE PLEURAL
--- NOTE | 2020-03-18 17:45 | RADIOLOGY REPORT (SQ) ---
EXAM DESCRIPTION: CHEST SINGLE VIEW IMAGES COMPLETED DATE/TIME: 03/18/2020 5:37 pm REASON FOR STUDY: S/P RT THORACENTESIS COMPARISON: 03/18/2020 earlier. FINDINGS: One view chest a pre portable upright "SP 2 hr thora" No pneumothorax. Stable chest with persistent right basilar opacity and mild pleural reaction. TECHNICAL DOCUMENTATION: JOB ID: [id number] Reading location - IP/workstation name: [email or web address]
[2020-03-18 17:46] LABS: FLUID APPEARANCE SLIGHTLY HAZY; FLUID COLOR YELLOW; FLUID VISCOSITY SLIGHTLY VISCOUS
[2020-03-18] MEDS ORDERED: ENOXAPARIN SODIUM INJ 60 MG/0.6 ML DISP.SYRIN SUBCUT SCH (22:00)
[2020-03-18] MEDS ORDERED: WARFARIN SODIUM 3 MG TABLET PO SCH (22:00)
[2020-03-18] MEDS: TRAZODONE HCL 50 MG TABLET PO SCH (22:36)
[2020-03-18] MEDS: HYDROXYZINE PAMOATE 50 MG CAPSULE PO SCH (22:36)
[2020-03-18] MEDS: WARFARIN SODIUM 4 MG TABLET PO SCH (22:36)
[2020-03-19 07:57] LABS: HEMATOCRIT 35.9 % (37.9-51.0); HEMOGLOBIN 11.9 g/dL (13.5-17.0); INTERNATIONAL RATION (INR) 1.34; MEAN CORPUSCULAR HEMOGLOBIN 29.4 pg (27.0-33.4); MEAN CORPUSCULAR VOLUME 89 fl (80-97); PLATELET COUNT 190 10^3/uL (150-450); PROTHROMBIN TIME 16.7 SEC (11.4-15.4); RED BLOOD COUNT 4.04 10^6/uL (4.35-5.55); RED CELL DISTRIBUTION WIDTH 16.9 % (11.5-14.0); WHITE BLOOD COUNT 5.6 10^3/uL (4.0-10.5)
[2020-03-19] MEDS ORDERED: HEPARIN SOD (PORCINE) 1,000 UNIT/ML 10 ML VIAL IV PRN (08:00)
[2020-03-19] MEDS: FLUTICASONE NASAL SPRAY 50 MCG/SPRY 120 SPRAY/16 GM NASL SCH (09:39)
[2020-03-19] MEDS: METOPROLOL TARTRATE 50 MG TABLET PO SCH ×2 (09:42→22:11)
[2020-03-19] MEDS: FUROSEMIDE 40 MG TABLET PO SCH (09:42)
[2020-03-19] MEDS: HEPARIN SODIUM,PORCINE/D5W 25,000 UNIT/250 ML RTUINJ IV PRN (09:49)
[2020-03-19] MEDS: SENNOSIDES/DOCUSATE 8.6-50 MG 1 EACH TABLET PO SCH (09:52)
--- NOTE | 2020-03-19 11:45 | PDOC PROGRESS REPORT ---
Subjective Progress Note for:: 03/19/20 Subjective:: Patient tolerated thoracentesis yesterday. Fluid analysis pending. Today, patient states his breathing is better. He states he has been using the incentive spirometer given to him. A little agitated stating that he has been disturbed frequently and had threatened to leave earlier but I explained to him the necessity of him staying in the hospital in order to get his INR to therapeutic at least close to therapeutic levels and he voices understanding and willingness to stay. Reason For Visit: ATRIAL FLUTTER WITH RAPID VENTRICULAR RATE Physical Exam Vital Signs: Temp Pulse Resp BP Pulse Ox 97.6 F 97 16 91/67 L 97 03/19/20 08:29 03/19/20 08:29 03/19/20 08:29 03/19/20 08:29 03/19/20 08:29 Intake & Output 03/18/20 03/19/20 03/20/20 06:59 06:59 06:59 Intake Total 876 1260 Output Total 775 1500 Balance 101 -240 Weight 55.1 kg 53.4 kg General appearance: PRESENT: no acute distress, cooperative Neck exam: ABSENT: JVD Respiratory exam: PRESENT: clear to auscultation monroe, unlabored. ABSENT: tachypnea, wheezes Cardiovascular exam: PRESENT: irregular rhythm, +S1, +S2. ABSENT: tachycardia GI/Abdominal exam: PRESENT: soft. ABSENT: rebound, rigid, tenderness Neurological exam: PRESENT: alert, awake, oriented to person, oriented to place Results Laboratory Results: 03/19/20 07:29 03/18/20 05:20 03/18/20 03/19/20 15:15 07:29 WBC 5.6 RBC 4.04 L Hgb 11.9 L Hct 35.9 L MCV 89 MCH 29.4 MCHC 33.0 RDW 16.9 H Plt Count 190 Fluid Type PLEURAL Fluid Source LUNG Fluid Color YELLOW Fluid Appearance SLIGHTLY HAZY Fluid Viscosity SLIGHTLY VISCOUS Fluid WBC 16 Fluid RBC 22 03/14/20 16:22 Troponin I 0.020 Impressions: Chest CT 03/16/20 00:00 IMPRESSION: 1. Since the previous examination dated 04/21/2019, new development of a large right pleural effusion. Mild consolidation in the right middle and lower lobes with associated air bronchograms, may be on the basis of pneumonia and or atelectasis. 2. New mild to moderate left pleural effusion with left lower lobe compressive atelectasis or pneumonia. 3. Stable mediastinal and right hilar lymphadenopathy. 4. Interval placement left-sided dialysis catheter. 5. Mild volume of ascites in the abdomen. 6. Diffuse gallbladder wall thickening. 7. Additional findings as above. Thoracentesis Ultrasound 03/18/20 06:00 IMPRESSION: SUCCESSFUL THORACENTESIS USING ULTRASOUND GUIDANCE. Assessment and Plan - Diagnosis (1) Atrial flutter with rapid ventricular response Is this a current diagnosis for this admission?: Yes Plan: Persistent atrial fibrillation. RVR seems to have resolved. Continue Lopressor 50 mg every 12 hours. On chronic anticoagulation. (2) Mitral valve stenosis Qualifiers: Cardiac valve disease etiology: rheumatic Qualified Code(s): I05.0 - Rheumatic mitral stenosis Is this a current diagnosis for this admission?: Yes Plan: Patient has a history of [facility] Samuel mechanical mitral valve replacement at [facility] on 11/10/2019. Echocardiogram 02/2020 confirms mechanical mitral valve, normal EF mild pulmonary hypertension and intracardiac leadless pacemaker INR goal of 2.5-3.5 given mechanical mitral valve + A. fib Warfarin 4 mg nightly started last night. Home dose seems to have been 2 mg nightly. Unfortunately, given patient's mechanical mitral valve, patient is at high risk of clot formation in absence of adequate anticoagulation and it is imperative that patient stays in the hospital to receive a heparin bridge until her INR is at least over 2. (3) Bilateral pleural effusion Is this a current diagnosis for this admission?: Yes Plan: Chest CT revealing moderate to large sized effusion in the right lung and spent some effusion in the left lung. I suspect this is due to his chronic diastolic CHF secondary to severe mitral valve stenosis for which patient underwent mitral valve replacement via open sternotomy in 10/2019 at [facility]. Right-sided thoracentesis on 03/18/2020 with 900 cc of fluid yielded. Fluid analysis still pending but I suspect transudate from CHF. Postthoracentesis chest x-ray reviewed. Incentive spirometer to help with recruiting atelectatic alveoli (4) Respiratory failure with hypoxia Qualifiers: Chronicity: acute Qualified Code(s): J96.01 - Acute respiratory failure with hypoxia Is this a current diagnosis for this admission?: Yes Plan: secondary to pleural effusions. Status post thoracentesis. Patient is maintaining adequate oxygenation on room air. (5) COPD (chronic obstructive pulmonary disease) Qualifiers: COPD type: unspecified COPD Qualified Code(s): J44.9 - Chronic obstructive pulmonary disease, unspecified Is this a current diagnosis for this admission?: Yes Plan: Nebs as needed. (6) CKD (chronic kidney disease) requiring chronic dialysis Is this a current diagnosis for this admission?: Yes Plan: Nephrology following. We will continue patient's dialysis as scheduled Saturday. Records from [facility] reviewed. Patient seems to have been on dialysis after developing DEMETRIUS on CKD following PEA arrest tube in November 2019 and has been on dialysis ever since. Will need close outpatient nephrology follow-up. Continue Lasix (7) Tachy-barry syndrome Is this a current diagnosis for this admission?: Yes Plan: Noted on records reviewed from [facility]. Patient became bradycardic and went into PEA arrest in November 2019 after which intracardiac leadless pacemaker was placed. Monitor on telemetry. Continue management of A. fib. - Plan Summary Summary: Obtained records of recent stay at [facility]. Patient was at [facility] from 11/09/2019 until 02/28/2020. Initially went in for mitral valve replacement. Brief summary of stay as below: Preop assessment was done on 09/16/2019: Echo showed severe mitral stenosis, EF 55%, PASP 44.6 mmHg, moderate to severe TR. RHC: PCWP 19, PA 87/33, mPAP 51 mmHg, PA SaO2 67%, 10 Wood units PVR, CO 3.2 done on 11/10/2019 via open heart surgery replacement of St Samuel mechanical mitral valve. LHC: 0% stenosis all throughout RCA, LAD, left main and left circumflex MVR performed via open heart surgery on 11/10/[address] Robbins. Went into atrial fibrillation with RVR requiring DCCV on 11/26/2019. Initially placed on amiodarone but later discontinued. Right pleural effusion noted then and treated with diuretics. Also treated at that time for possible pneumonia and oral thrush. Went into RVR again on 12/08/2019 and underwent DCCV but subsequently became bradycardic leading to PEA arrest. Successfully resuscitated. Underwent ex-lap to evaluate abdominal distention and gallbladder on 12/08/2019 but surgery was unrevealing. 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 Subsequent to the PEA arrest he developed shock liver which later resolved and also renal failure and has been on dialysis since then. Improved underwent physical therapy and discharged home to continue with outp atient dialysis. Set to follow-up with his PCP, machine chain maker Dr. Papi Lou in 4 to 6 weeks, and CT surgery Dr. Robbins if needed. - Time Time Spent with patient: Less than 15 minutes
[2020-03-19] MEDS: HYDROXYZINE PAMOATE 50 MG CAPSULE PO SCH (22:11)
[2020-03-19] MEDS: WARFARIN SODIUM 4 MG TABLET PO SCH (22:12)
[2020-03-19] MEDS: TRAZODONE HCL 50 MG TABLET PO SCH (22:12)
[2020-03-20 02:47] LABS: INTERNATIONAL RATION (INR) 1.41; PROTHROMBIN TIME 17.3 SEC (11.4-15.4)
[2020-03-20 02:48] LABS: PARTIAL THROMBOPLASTIN TIME 61.9 SEC (23.5-35.8)
[2020-03-20 08:04] LABS: APPEARANCE,URINE CLEAR; BILIRUBIN,URINE NEGATIVE (NEGATIVE); COLOR,URINE YELLOW; GLUCOSE, URINE NEGATIVE (NEGATIVE); KETONES,URINE NEGATIVE (NEGATIVE); LEUKOCYTE ESTERASE,URINE NEGATIVE (NEGATIVE); NITRITE,URINE NEGATIVE (NEGATIVE); PROTEIN,URINE NEGATIVE (NEGATIVE); URINE SPECIFIC GRAVITY 1.003; UROBILINOGEN,URINE NEGATIVE mg/dL (<2.0)
[2020-03-20] MEDS: FLUTICASONE NASAL SPRAY 50 MCG/SPRY 120 SPRAY/16 GM NASL SCH (09:36)
[2020-03-20] MEDS: SENNOSIDES/DOCUSATE 8.6-50 MG 1 EACH TABLET PO SCH (09:37)
[2020-03-20] MEDS: METOPROLOL TARTRATE 50 MG TABLET PO SCH ×2 (09:38→22:34)
[2020-03-20] MEDS: FUROSEMIDE 40 MG TABLET PO SCH (09:38)
[2020-03-20] MEDS ORDERED: NORMAL SALINE 1000 ML 500 ML IV ONE (13:41)
--- NOTE | 2020-03-20 13:45 | PDOC PROGRESS REPORT ---
Subjective Progress Note for:: 03/20/20 Subjective:: Patient felt a little bit dyspneic on ambulation yesterday. Admits to not using the incentive spirometer like he should have. Oxygen saturations have been adequate. Has no other complaints otherwise. Reason For Visit: ATRIAL FLUTTER WITH RAPID VENTRICULAR RATE Physical Exam Vital Signs: Temp Pulse Resp BP Pulse Ox 97.7 F 88 19 96/61 L 95 03/20/20 12:04 03/20/20 12:04 03/20/20 12:04 03/20/20 12:04 03/20/20 12:04 Intake & Output 03/19/20 03/20/20 03/21/20 06:59 06:59 06:59 Intake Total 1260 1017 237 Output Total 1500 250 200 Balance -240 767 37 Weight 53.4 kg 53.9 kg General appearance: PRESENT: no acute distress Neck exam: ABSENT: JVD Respiratory exam: PRESENT: clear to auscultation monroe, unlabored. ABSENT: tachypnea, wheezes Cardiovascular exam: PRESENT: irregular rhythm, +S1, +S2. ABSENT: bradycardia GI/Abdominal exam: PRESENT: soft. ABSENT: rebound, rigid, tenderness Neurological exam: PRESENT: alert, awake, oriented to person, oriented to place, oriented to time, oriented to situation Results Laboratory Results: 03/19/20 07:29 03/18/20 05:20 03/18/20 03/18/20 03/18/20 15:15 15:15 15:15 Urine Color Urine Appearance Urine pH Ur Specific Kila Urine Protein Urine Glucose (UA) Urine Ketones Urine Blood Urine Nitrite Ur Leukocyte Esterase Urine WBC (Auto) Urine RBC (Auto) Fluid Glucose 87 Fluid Total Protein 2.3 Fluid LDH 62 03/20/20 07:45 Urine Color YELLOW Urine Appearance CLEAR Urine pH 7.0 Ur Specific Kila 1.003 Urine Protein NEGATIVE Urine Glucose (UA) NEGATIVE Urine Ketones NEGATIVE Urine Blood NEGATIVE Urine Nitrite NEGATIVE Ur Leukocyte Esterase NEGATIVE Urine WBC (Auto) 0 Urine RBC (Auto) 0 Fluid Glucose Fluid Total Protein Fluid LDH 03/14/20 16:22 Troponin I 0.020 Impressions: Chest CT 03/16/20 00:00 IMPRESSION: 1. Since the previous examination dated 04/21/2019, new development of a large right pleural effusion. Mild consolidation in the right middle and lower lobes with associated air bronchograms, may be on the basis of pneumonia and or atelectasis. 2. New mild to moderate left pleural effusion with left lower lobe compressive atelectasis or pneumonia. 3. Stable mediastinal and right hilar lymphadenopathy. 4. Interval placement left-sided dialysis catheter. 5. Mild volume of ascites in the abdomen. 6. Diffuse gallbladder wall thickening. 7. Additional findings as above. Thoracentesis Ultrasound 03/18/20 06:00 IMPRESSION: SUCCESSFUL THORACENTESIS USING ULTRASOUND GUIDANCE. Assessment and Plan - Diagnosis (1) Atrial flutter with rapid ventricular response Is this a current diagnosis for this admission?: Yes Plan: Persistent atrial fibrillation. Continue Lopressor 50 mg every 12 hours. On chronic anticoagulation. I will give some IV fluids as well. (2) Mitral valve stenosis Qualifiers: Cardiac valve disease etiology: rheumatic Qualified Code(s): I05.0 - Rheumatic mitral stenosis Is this a current diagnosis for this admission?: Yes Plan: Patient has a history of [facility] Samuel mechanical mitral valve replacement at [facility] on 11/10/2019. Echocardiogram 02/2020 confirms mechanical mitral valve, normal EF mild pulmonary hypertension and intracardiac leadless pacemaker INR goal of 2.5-3.5 given mechanical mitral valve + A. fib Warfarin 4 mg nightly. Home dose seems to have been 2 mg nightly. Unfortunately, given patient's mechanical mitral valve, patient is at high risk of clot formation in absence of adequate anticoagulation and it is imperative that patient stays in the hospital to receive a heparin bridge until her INR is at least over 2. (3) Bilateral pleural effusion Is this a current diagnosis for this admission?: Yes Plan: Chest CT revealing moderate to large sized effusion in the right lung and spent some effusion in the left lung. I suspect this is due to his chronic diastolic CHF secondary to severe mitral valve stenosis for which patient underwent mitral valve replacement via open sternotomy in 10/2019 at [facility]. Right-sided thoracentesis on 03/18/2020 with 900 cc of fluid yielded. Fluid analysis consistent with transudative fluid. Incentive spirometer to help with recruiting atelectatic alveoli (4) Respiratory failure with hypoxia Qualifiers: Chronicity: acute Qualified Code(s): J96.01 - Acute respiratory failure with hypoxia Is this a current diagnosis for this admission?: Yes Plan: secondary to pleural effusions. Status post thoracentesis. Patient is maintain ing adequate oxygenation on room air. (5) COPD (chronic obstructive pulmonary disease) Qualifiers: COPD type: unspecified COPD Qualified Code(s): J44.9 - Chronic obstructive pulmonary disease, unspecified Is this a current diagnosis for this admission?: Yes Plan: Nebs as needed. (6) CKD (chronic kidney disease) requiring chronic dialysis Is this a current diagnosis for this admission?: Yes Plan: Nephrology following. We will continue patient's dialysis as scheduled Saturday. Records from [facility] reviewed. Patient seems to have been on dialysis after developing DEMETRIUS on CKD following PEA arrest tube in November 2019 and has been on dialysis ever since. Will need close outpatient nephrology follow-up. (7) Tachy-barry syndrome Is this a current diagnosis for this admission?: Yes Plan: Noted on records reviewed from [facility]. Patient became bradycardic and went into PEA arrest in November 2019 after which intracardiac leadless pacemaker was placed. Monitor on telemetry. Continue management of A. fib. - Plan Summary Summary: Obtained records of recent stay at [facility]. Patient was at [facility] from 11/09/2019 until 02/28/2020. Initially went in for mitral valve replacement. Brief summary of stay as below: Preop assessment was done on 09/16/2019: Echo showed severe mitral stenosis, EF 55%, PASP 44.6 mmHg, moderate to severe TR. RHC: PCWP 19, PA 87/33, mPAP 51 mmHg, PA SaO2 67%, 10 Wood units PVR, CO 3.2 done on 11/10/2019 via open heart surgery replacement of [facility] Samuel mechanical mitral valve. LHC: 0% stenosis all throughout RCA, LAD, left main and left circumflex MVR performed via open heart surgery on 11/10/[address] Robbins. Went into atrial fibrillation with RVR requiring DCCV on 11/26/2019. Initially placed on amiodarone but later discontinued. Right pleural effusion noted then and treated with diuretics. Also treated at that time for possible pneumonia and oral thrush. Went into RVR again on 12/08/2019 and underwent DCCV but subseque ntly became bradycardic leading to PEA arrest. Successfully resuscitated. Underwent ex-lap to evaluate abdominal distention and gallbladder on 12/08/2019 but surgery was unrevealing. 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 Subsequent to the PEA arrest he developed shock liver which later resolved and also renal failure and has been on dialysis since then. Improved underwent physical therapy and discharged home to continue with outpatient dialysis. Set to follow-up with his PCP, cleat thrower Dr. Papi Lou in 4 to 6 weeks, and CT surgery Dr. Robbins if needed. - Time Time Spent with patient: Less than 15 minutes
[2020-03-20] MEDS ORDERED: NORMAL SALINE 500 ML IV ONE (14:00)
[2020-03-20] MEDS: HEPARIN SODIUM,PORCINE/D5W 25,000 UNIT/250 ML RTUINJ IV PRN (15:21)
[2020-03-20] MEDS: OXYCODONE HCL IR 5 MG TABLET PO PRN (18:42)
[2020-03-20] MEDS ORDERED: HEPARIN SOD (PORCINE) 1,000 UNIT/ML 10 ML VIAL IV PRN (21:04)
[2020-03-20] MEDS: HYDROXYZINE PAMOATE 50 MG CAPSULE PO SCH (22:34)
[2020-03-20] MEDS: TRAZODONE HCL 50 MG TABLET PO SCH (22:34)
[2020-03-20] MEDS: WARFARIN SODIUM 4 MG TABLET PO SCH (22:34)
[2020-03-21 07:16] LABS: HEMATOCRIT 35.2 % (37.9-51.0); HEMOGLOBIN 11.6 g/dL (13.5-17.0); MEAN CORPUSCULAR HEMOGLOBIN 28.9 pg (27.0-33.4); MEAN CORPUSCULAR HGB CONC 32.9 g/dL (32.0-36.0); MEAN CORPUSCULAR VOLUME 88 fl (80-97); PLATELET COUNT 206 10^3/uL (150-450); RED BLOOD COUNT 4.01 10^6/uL (4.35-5.55); RED CELL DISTRIBUTION WIDTH 16.7 % (11.5-14.0); WHITE BLOOD COUNT 5.2 10^3/uL (4.0-10.5)
[2020-03-21 07:22] LABS: PROTHROMBIN TIME 20.2 SEC (11.4-15.4)
[2020-03-21 07:24] LABS: PARTIAL THROMBOPLASTIN TIME 76.2 SEC (23.5-35.8)
[2020-03-21 07:34] LABS: ANION GAP 10 (5-19); BLOOD UREA NITROGEN 30 mg/dL (7-20); CALCIUM 9.3 mg/dL (8.4-10.2); CARBON DIOXIDE 27 mmol/L (22-30); CHLORIDE 97 mmol/L (98-107); GLUCOSE 128 mg/dL (75-110); POTASSIUM 4.3 mmol/L (3.6-5.0)
[2020-03-21] MEDS ORDERED: NORMAL SALINE 1000 ML 1,000 ML IV ONE (09:30)
[2020-03-21] MEDS ORDERED: MIDODRINE HCL 5 MG TABLET PO ONE (10:00)
[2020-03-21] MEDS: METOPROLOL TARTRATE 50 MG TABLET PO SCH ×2 (10:00→21:10)
[2020-03-21] MEDS: FLUTICASONE NASAL SPRAY 50 MCG/SPRY 120 SPRAY/16 GM NASL SCH (10:03)
[2020-03-21] MEDS: SENNOSIDES/DOCUSATE 8.6-50 MG 1 EACH TABLET PO SCH (10:04)
[2020-03-21 10:43] LABS: APPEARANCE,URINE CLEAR; BILIRUBIN,URINE NEGATIVE (NEGATIVE); COLOR,URINE YELLOW; GLUCOSE, URINE NEGATIVE (NEGATIVE); KETONES,URINE NEGATIVE (NEGATIVE); LEUKOCYTE ESTERASE,URINE NEGATIVE (NEGATIVE); NITRITE,URINE NEGATIVE (NEGATIVE); PROTEIN,URINE NEGATIVE (NEGATIVE); URINE SPECIFIC GRAVITY 1.012; UROBILINOGEN,URINE NEGATIVE mg/dL (<2.0)
--- NOTE | 2020-03-21 10:44 | PDOC PROGRESS REPORT ---
Subjective Progress Note for:: 03/21/20 Subjective:: Patient's has no complaints today. His blood pressures were soft once again this morning. He has been eating and drinking some fluids but not as much. We will give a liter of fluids. Heart rate elevated as well. Reviewing chart seems his heart rate was elevated for good chunk of yesterday. Reason For Visit: ATRIAL FLUTTER WITH RAPID VENTRICULAR RATE Physical Exam Vital Signs: Temp Pulse Resp BP Pulse Ox 97.4 F 81 14 89/61 L 95 03/21/20 08:30 03/21/20 08:30 03/21/20 08:30 03/21/20 08:30 03/21/20 08:30 Intake & Output 03/20/20 03/21/20 03/22/20 06:59 06:59 06:59 Intake Total 1017 1587 Output Total 250 1250 Balance 767 337 Weight 53.9 kg 54.1 kg General appearance: PRESENT: no acute distress, cooperative Mouth exam: PRESENT: neck supple Neck exam: ABSENT: JVD Respiratory exam: PRESENT: clear to auscultation monroe, unlabored. ABSENT: tachypnea, wheezes Cardiovascular exam: PRESENT: irregular rhythm, +S1, +S2, tachycardia GI/Abdominal exam: PRESENT: soft. ABSENT: rebound, rigid, tenderness Neurological exam: PRESENT: alert, awake, oriented to person, oriented to place, oriented to time, oriented to situation Results Laboratory Results: 03/21/20 06:57 03/21/20 06:57 03/21/20 03/21/20 06:57 06:57 WBC 5.2 RBC 4.01 L Hgb 11.6 L Hct 35.2 L MCV 88 MCH 28.9 MCHC 32.9 RDW 16.7 H Plt Count 206 Sodium 134.3 L Potassium 4.3 Chloride 97 L Carbon Dioxide 27 Anion Gap 10 BUN 30 H Creatinine 2.07 H Est GFR ( Amer) 40 L Glucose 128 H Calcium 9.3 03/18/20 15:15 Pleural Fluid AFB Smear Concentration - Final 03/18/20 15:15 Pleural Fluid Acid Fast Bacilli Smear - Final 03/14/20 16:22 Troponin I 0.020 Impressions: Chest CT 03/16/20 00:00 IMPRESSION: 1. Since the previous examination dated 04/21/2019, new development of a large right pleural effusion. Mild consolidation in the right middle and lower lobes with associated air bronchograms, may be on the basis of pneumonia and or atelectasis. 2. New mild to moderate left pleural effusion with left lower lobe compressive atelectasis or pneumonia. 3. Stable mediastinal and right hilar lymphadenopathy. 4. Interval placement left-sided dialysis catheter. 5. Mild volume of ascites in the abdomen. 6. Diffuse gallbladder wall thickening. 7. Additional findings as above. Thoracentesis Ultrasound 03/18/20 06:00 IMPRESSION: SUCCESSFUL THORACENTESIS USING ULTRASOUND GUIDANCE. Assessment and Plan - Diagnosis (1) Atrial flutter with rapid ventricular response Is this a current diagnosis for this admission?: Yes Plan: Persistent atrial fibrillation back in mild RVR today but BP remains soft w/hypotensive episodes but pt is very comfortable w/o distress. Reconsulted cardiology. Rate control options limited by soft blood pressures and CKD on dialysis limiting digoxin use. Continue Lopressor 50 mg every 12 hours. On chronic anticoagulation. I will give 1 L bolus NS, 1 dose of Midodrine 5 mg and start patient on 2.5 mg twice da gaby to see if this will help the patient's mild RVR. Discussed with nephrology about limiting fluid removal today during HD as pt makes urine. (2) Mitral valve stenosis Qualifiers: Cardiac valve disease etiology: rheumatic Qualified Code(s): I05.0 - Rheumatic mitral stenosis Is this a current diagnosis for this admission?: Yes Plan: Patient has a history of [facility] Samuel mechanical mitral valve replacement at [facility] on 11/10/2019. Echocardiogram 02/2020 confirms mechanical mitral valve, normal EF mild pulmonary hypertension and intracardiac leadless pacemaker INR goal of 2.5-3.5 given mechanical mitral valve + A. fib. INR was subtherapeutic on admission, and warf later held temporarily for thoracentesis. Continue warfarin 4 mg nightly. Home dose seems to have been 2 mg nightly. Unfortunately, given patient's mechanical mitral valve, patient is at high risk of clot formation in absence of adequate anticoagulation and it is imperative that patient stays in the hospital to receive a heparin bridge until her INR is at least over 2. (3) Bilateral pleural effusion Is this a current diagnosis for this admission?: Yes Plan: Mod-Large effusion in right lung and mild in the left . 2/2 Chronic HFpEF from severe mitral valve stenosis now s/p open MVR 10/2019 at [facility]. Right-sided thoracentesis on 03/18/2020 with 900 cc of transudative fluid. Incentive spirometer to help with recruiting atelectatic alveoli (4) Respiratory failure with hypoxia Qualifiers: Chronicity: acute Qualified Code(s): J96.01 - Acute respiratory failure with hypoxia Is this a current diagnosis for this admission?: Yes Plan: secondary to pleural effusions. Status post thoracentesis. Resolved. (5) COPD (chronic obstructive pulmonary disease) Qualifiers: COPD type: unspecified COPD Qualified Code(s): J44.9 - Chronic obstructive pulmonary disease, unspecified Is this a current diagnosis for this admission?: Yes Plan: Nebs as needed. (6) CKD (chronic kidney disease) requiring chronic dialysis Is this a current diagnosis for this admission?: Yes Plan: Nephrology following. We will continue patient's dialysis as scheduled Saturday. Records from [facility] reviewed. Patient seems to have been on dialysis after developing DEMETRIUS on CKD following PEA arrest in 11/2019 and has been on dialysis ever since. Will need close outpatient nephrology follow-up for reassessment of HD requirement. (7) Tachy-barry syndrome Is this a current diagnosis for this admission?: Yes Plan: Noted on records reviewed from [facility]. Patient became bradycardic and went into PEA arrest in November 2019 after which intracardiac leadless pacemaker was placed. Monitor on telemetry. Continue management of A. fib. - Plan Summary Summary: Obtained records of recent stay at [facility]. Patient was at [facility] from 11/09/2019 until 02/28/2020. Initially went in for mitral valve replace ment. Brief summary of stay as below: Preop assessment was done on 09/16/2019: Echo showed severe mitral stenosis, EF 55%, PASP 44.6 mmHg, moderate to severe TR. RHC: PCWP 19, PA 87/33, mPAP 51 mmHg, PA SaO2 67%, 10 Wood units PVR, CO 3.2 done on 11/10/2019 via open heart surgery replacement of [facility] Samuel mechanical mitral valve. LHC: 0% stenosis all throughout RCA, LAD, left main and left circumflex MVR performed via open heart surgery on 11/10/[address] Robbins. Went into atrial fibrillation with RVR requiring DCCV on 11/26/2019. Initially placed on amiodarone but later discontinued. Right pleural effusion noted then and treated with diuretics. Also treated at that time for possible pneumonia and oral thrush. Went into RVR again on 12/08/2019 and underwent DCCV but subsequently became bradycardic leading to PEA arrest. Successfully resuscitated. Underwent ex-lap to evaluate abdominal distention and gallbladder on 12/08/2019 but surgery was unrevealing. 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 Subsequent to the PEA arrest he developed shock liver which later resolved and also renal failure and has been on dialysis since then. Improved underwent physical therapy and discharged home to continue with outpatient dialysis. Set to follow-up with his PCP, supervisor fitting Dr. Papi Lou in 4 to 6 weeks, and CT surgery Dr. Robbins if needed. - Time Time Spent with patient: Less than 15 minutes
--- NOTE | 2020-03-21 14:40 | PDOC PROGRESS REPORT ---
Subjective Progress Note for:: 03/21/20 Subjective:: Reports that he is feeling better. Denies chest pain or dyspnea. Reason For Visit: ATRIAL FLUTTER WITH RAPID VENTRICULAR RATE Physical Exam Vital Signs: Temp Pulse Resp BP Pulse Ox 97.5 F 98 16 103/72 95 03/21/20 12:40 03/21/20 12:40 03/21/20 12:40 03/21/20 12:40 03/21/20 12:40 Intake & Output 03/20/20 03/21/20 03/22/20 06:59 06:59 06:59 Intake Total 1017 1587 Output Total 250 1250 Balance 767 337 Weight 53.9 kg 54.1 kg 54.1 kg General appearance: PRESENT: no acute distress, cooperative, well-nourished Head exam: PRESENT: atraumatic, normocephalic Eye exam: PRESENT: conjunctiva pink, EOMI Mouth exam: PRESENT: moist Respiratory exam: PRESENT: decreased breath sounds, symmetrical, unlabored, ot her Cardiovascular exam: PRESENT: irregular rhythm, +S1, +S2, tachycardia, other - Healed thoracotomy scar. Pulses: PRESENT: normal radial pulses GI/Abdominal exam: PRESENT: soft Rectal exam: PRESENT: deferred Musculoskeletal exam: PRESENT: normal inspection Neurological exam: PRESENT: alert, awake, oriented to person, oriented to place, oriented to time, oriented to situation Results Laboratory Results: 03/21/20 06:57 03/21/20 06:57 03/21/20 03/21/20 03/21/20 06:57 06:57 08:55 WBC 5.2 RBC 4.01 L Hgb 11.6 L Hct 35.2 L MCV 88 MCH 28.9 MCHC 32.9 RDW 16.7 H Plt Count 206 Sodium 134.3 L Potassium 4.3 Chloride 97 L Carbon Dioxide 27 Anion Gap 10 BUN 30 H Creatinine 2.07 H Est GFR ( Amer) 40 L Glucose 128 H Calcium 9.3 Urine Color YELLOW Urine Appearance CLEAR Urine pH 7.0 Ur Specific [place] 1.012 Urine Protein NEGATIVE Urine Glucose (UA) NEGATIVE Urine Ketones NEGATIVE Urine Blood NEGATIVE Urine Nitrite NEGATIVE Ur Leukocyte Esterase NEGATIVE Urine WBC (Auto) 1 Urine RBC (Auto) 0 03/18/20 15:15 Pleural Fluid - Right Pleural Effusion Gram Stain - Final 03/18/20 15:15 Pleural Fluid AFB Smear Concentration - Final 03/18/20 15:15 Pleural Fluid Acid Fast Bacilli Smear - Final 03/14/20 16:22 Troponin I 0.020 EKG Comments: Telemetry shows atrial fibrillation rapid ventricular response 100 220 bpm range. Impressions: Chest CT 03/16/20 00:00 IMPRESSION: 1. Since the previous examination dated 04/21/2019, new development of a large right pleural effusion. Mild consolidation in the right middle and lower lobes with associated air bronchograms, may be on the basis of pneumonia and or atelectasis. 2. New mild to moderate left pleural effusion with left lower lobe compressive atelectasis or pneumonia. 3. Stable mediastinal and right hilar lymphadenopathy. 4. Interval placement left-sided dialysis catheter. 5. Mild volume of ascites in the abdomen. 6. Diffuse gallbladder wall thickening. 7. Additional findings as above. Thoracentesis Ultrasound 03/18/20 06:00 IMPRESSION: SUCCESSFUL THORACENTESIS USING ULTRASOUND GUIDANCE. Assessment & Plan - Diagnosis (1) Atrial fibrillation Is this a current diagnosis for this admission?: Yes Plan: Atrial fibrillation rapid ventricular response. Exacerbated by respiratory distress. Doing much better Agree with uptitrating beta-jelani as tolerated although this seems to be limited by soft blood pressures Agree with use of midodrine to increase blood pressure and minimizing volume removal at dialysis. This will give more room on blood pressure to uptitrate beta-jelani Patient has leadless pacemaker in situ for pacing backup. (2) ESRD (end stage renal disease) on dialysis Is this a current diagnosis for this admission?: Yes Plan: Per nephrology. Dialysis is continuing. - Notes Notes: Status post mechanical mitral valve placement Has been started on systemic anticoagulation with warfarin with heparin bridging Continue to titrate beta-jelani for better heart rate control.
--- NOTE | 2020-03-21 14:44 | PDOC PROGRESS REPORT ---
Subjective Progress Note for:: 03/21/20 Subjective:: Patient is a 59-year-old gentleman with complicated course after mechanical [facility] mitral valve replacement secondary to severe mitral stenosis at [facility] on 11/10/2019 where he was hospitalized from November 09 and was just discharged on February 28, 2020. Patient went to atrial fibrillation with rapid ventricular response requiring cardioversion on November 26 and December 08, 2019. Pacemaker was placed on January 04, 2024 /bradycardia syndrome. Patient went into DEMETRIUS and was not able to be taken off dialysis and now deemed to have ESRD. Patient came in with shortness of breath deemed to be secondary to pleural effusion. He underwent right thoracentesis on March 18 after dialysis. I am seeing the patient during dialysis this afternoon. Patient was somewhat upset and was not so pleasant when I talked to him this afternoon during dialysis. He said he wanted to go home and he has been here too long. He states that after dialysis is probably can assign himself out AGAINST MEDICAL ADVICE if not discharged home. He said he came in here with shortness of breath and now he is breathing good and feels good and so he should go home. I asked him who he is following up in terms of the six pack packer and he could not tell me his six pack packer name. His INR is still not therapeutic and I tried to explain that to him and why it is important to prevent clot of his mechanical valve but he does not seem to be in a mood to listen. I also talked to him regarding his kidney function since his creatinine has been pretty stable between 1.9-2.0. He seems to be making urine and there was a recorded urine output of 1250 mL for the past 24 hours. I tried explained to him that regarding needing to do a 24- hour urine creatinine clearance to see if he can get off dialysis or at least adjust his dialysis treatment to maybe twice a week depending on creatinine clearance. Last week, Dr. Godfrey tried to have Mccall catheter inserted for a 24-hour urine collection but he refused because of traumatic Mccall catheter insertion and [facility] while he was there. Currently he is tolerating dialysis. His blood pressure is actually better than what it is been. Reason For Visit: ATRIAL FLUTTER WITH RAPID VENTRICULAR RATE Physical Exam Vital Signs: Temp Pulse Resp BP Pulse Ox 97.5 F 98 16 103/72 95 03/21/20 12:40 03/21/20 12:40 03/21/20 12:40 03/21/20 12:40 03/21/20 12:40 Intake & Output 03/20/20 03/21/20 03/22/20 06:59 06:59 06:59 Intake Total 1017 1587 Output Total 250 1250 Balance 767 337 Weight 53.9 kg 54.1 kg 54.1 kg Vitals during dialysis: Blood pressure 136/75, pulse rate of 90, blood flow rate of 350 mL/min and dialysate flow rate of 800 mL/min. Exam: General appearance: PRESENT: no acute distress, cooperative, well-developed, well-nourished Head exam: PRESENT: atraumatic, normocephalic Eye exam: PRESENT: conjunctiva slightly pale, PERRLA. ABSENT: scleral icterus Neck exam: ABSENT: JVD Respiratory exam: PRESENT: Normal breath sounds. ABSENT: crackles, rales, rhonchi, unlabored, wheezes Cardiovascular exam: PRESENT: Irregularly irregular rate rhythm -+S1, +S2. ABSENT: diastolic murmur, systolic murmur GI/Abdominal exam: PRESENT: normal bowel sounds, soft. ABSENT: guarding, mass, tenderness Extremities exam: Grade 2 bilateral lower extremity pitting edema Neurological exam: PRESENT: alert, awake, oriented to person, place and time. Skin exam: PRESENT: dry, warm, Cardiovascular exam: PRESENT: RRR, +S1, +S2. ABSENT: rubs GI/Abdominal exam: PRESENT: normal bowel sounds, soft. ABSENT: organomegaly, tenderness Results Laboratory Results: 03/21/20 06:57 03/21/20 06:57 03/21/20 03/21/20 03/21/20 06:57 06:57 08:55 WBC 5.2 RBC 4.01 L Hgb 11.6 L Hct 35.2 L MCV 88 MCH 28.9 MCHC 32.9 RDW 16.7 H Plt Count 206 Sodium 134.3 L Potassium 4.3 Chloride 97 L Carbon Dioxide 27 Anion Gap 10 BUN 30 H Creatinine 2.07 H Est GFR ( Amer) 40 L Glucose 128 H Calcium 9.3 Urine Color YELLOW Urine Appearance CLEAR Urine pH 7.0 Ur Specific [place] 1.012 Urine Protein NEGATIVE Urine Glucose (UA) NEGATIVE Urine Ketones NEGATIVE Urine Blood NEGATIVE Urine Nitrite NEGATIVE Ur Leukocyte Esterase NEGATIVE Urine WBC (Auto) 1 Urine RBC (Auto) 0 03/18/20 15:15 Pleural Fluid - Right Pleural Effusion Gram Stain - Final 03/18/20 15:15 Pleural Fluid AFB Smear Concentration - Final 03/18/20 15:15 Pleural Fluid Acid Fast Bacilli Smear - Final 03/14/20 16:22 Troponin I 0.020 Impressions: Chest CT 03/16/20 00:00 IMPRESSION: 1. Since the previous examination dated 04/21/2019, new development of a large right pleural effusion. Mild consolidation in the right middle and lower lobes with associated air bronchograms, may be on the basis of pneumonia and or atelectasis. 2. New mild to moderate left pleural effusion with left lower lobe compressive atelectasis or pneumonia. 3. Stable mediastinal and right hilar lymphadenopathy. 4. Interval placement left-sided dialysis catheter. 5. Mild volume of ascites in the abdomen. 6. Diffuse gallbladder wall thickening. 7. Additional findings as above. Thoracentesis Ultrasound 03/18/20 06:00 IMPRESSION: SUCCESSFUL THORACENTESIS USING ULTRASOUND GUIDANCE. Assessment & Plan - Diagnosis (1) ESRD (end stage renal disease) on dialysis Is this a current diagnosis for this admission?: Yes Plan: We will do dialysis today for 2 hours, using the patient's left IJ PermCath, with 2 potassium bath, blood flow rate of 350 mL per minute, dialysate flow rate of 800 mL per minute, ultrafiltration 2 L as tolerated, no heparin and no Procrit. Patient will be monitored and adjust ultrafiltration accordingly depending on blood pressure. Since the patient's creatinine has been between 1.9-2 and he appears to be making some urine, we will plan to do a 24-hour urine creatinine clearance which can be done as an outpatient if the patient does not stay here in the hospital or will be discharged in the next 24 hours. Meanwhile we will continue the same dialysis treatment as an outpatient at [facility] upon discharge. (2) Atrial fibrillation Is this a current diagnosis for this admission?: Yes (3) Bilateral pleural effusion Is this a current diagnosis for this admission?: Yes Plan: Status post right thoracentesis on 03/18/2020. Breathing improved after thoracentesis. 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 Current INR is still subthera peutic. (5) Tachy-barry syndrome Is this a current diagnosis for this admission?: Yes Plan: Status post leadless pacemaker placement. (6) Hyponatremia Is this a current diagnosis for this admission?: Yes Plan: Likely due to still significant hypervolemic state. - Notes Notes: Discussed with Dr. Boyle. He plans to send the patient home after INR is therapeutic unless the patient really signs AMA as he has been telling me this afternoon. - Time Time with patient: 15-25 minutes
[2020-03-21] MEDS ORDERED: HEPARIN SOD (PORCINE) 1,000 UNIT/ML 10 ML VIAL IV PRN (15:52)
[2020-03-21] MEDS ORDERED: HEPARIN SOD (PORCINE) 1,000 UNIT/ML 10 ML VIAL IV ONE (16:45)
[2020-03-21] MEDS: HEPARIN SOD (PORCINE) 1,000 UNIT/ML 10 ML VIAL IV ONE ×2 (17:11→17:39)
[2020-03-21] MEDS: MIDODRINE HCL 5 MG TABLET PO SCH (17:20)
[2020-03-21] MEDS: TRAZODONE HCL 50 MG TABLET PO SCH (21:10)
[2020-03-21] MEDS: HYDROXYZINE PAMOATE 50 MG CAPSULE PO SCH (21:10)
[2020-03-21] MEDS: WARFARIN SODIUM 4 MG TABLET PO SCH (21:10)
[2020-03-22 05:55] LABS: INTERNATIONAL RATION (INR) 2.06; PROTHROMBIN TIME 23.5 SEC (11.4-15.4)
[2020-03-22 05:57] LABS: PARTIAL THROMBOPLASTIN TIME 90.7 SEC (23.5-35.8)
[2020-03-22] MEDS: FUROSEMIDE 40 MG TABLET PO SCH (09:09)
[2020-03-22] MEDS: METOPROLOL TARTRATE 50 MG TABLET PO SCH ×2 (09:09→22:11)
[2020-03-22] MEDS: FLUTICASONE NASAL SPRAY 50 MCG/SPRY 120 SPRAY/16 GM NASL SCH (09:12)
[2020-03-22] MEDS: SENNOSIDES/DOCUSATE 8.6-50 MG 1 EACH TABLET PO SCH (09:12)
[2020-03-22] MEDS: MIDODRINE HCL 5 MG TABLET PO SCH ×2 (09:13→17:32)
[2020-03-22 11:14] LABS: ANION GAP 9 (5-19); BLOOD UREA NITROGEN 26 mg/dL (7-20); CALCIUM 9.1 mg/dL (8.4-10.2); CARBON DIOXIDE 26 mmol/L (22-30); CHLORIDE 97 mmol/L (98-107); GLUCOSE 86 mg/dL (75-110); POTASSIUM 4.2 mmol/L (3.6-5.0)
--- NOTE | 2020-03-22 12:09 | PDOC PROGRESS REPORT ---
Subjective Progress Note for:: 03/22/20 Subjective:: Patient seen and examined. Resting comfortably. Telemetry shows atrial fibrillation with ventricular rate in the 90 to 110 bpm range. Reason For Visit: ATRIAL FLUTTER WITH RAPID VENTRICULAR RATE Physical Exam Vital Signs: Temp Pulse Resp BP Pulse Ox 97.6 F 143 H 16 100/65 97 03/22/20 08:14 03/22/20 08:14 03/22/20 08:14 03/22/20 08:14 03/22/20 08:14 Intake & Output 03/21/20 03/22/20 03/23/20 06:59 06:59 06:59 Intake Total 1587 1201 Output Total 1250 2350 Balance 337 -1149 Weight 54.1 kg 55.8 kg General appearance: PRESENT: no acute distress, well-developed, well-nourished Head exam: PRESENT: atraumatic, normocephalic Mouth exam: PRESENT: moist Respiratory exam: PRESENT: symmetrical, unlabored Cardiovascular exam: PRESENT: irregular rhythm, +S1, +S2 Rectal exam: PRESENT: deferred Results Laboratory Results: 03/21/20 06:57 03/22/20 04:42 03/22/20 04:42 Sodium 131.6 L Potassium 4.2 Chloride 97 L Carbon Dioxide 26 Anion Gap 9 BUN 26 H Creatinine 1.80 H Est GFR ( Amer) 47 L Glucose 86 Calcium 9.1 03/18/20 15:15 Pleural Fluid - Right Pleural Effusion Gram Stain - Final 03/18/20 15:15 Pleural Fluid - Right Pleural Effusion Body Fluid Culture - Final NO AEROBIC OR ANAEROBIC ORGANISMS RECOVERED 03/18/20 15:15 Pleural Fluid AFB Smear Concentration - Final 03/18/20 15:15 Pleural Fluid Acid Fast Bacilli Smear - Final 03/14/20 16:22 Troponin I 0.020 EKG Comments: Telemetry shows atrial fibrillation with ventricular rate between 90 to 110 bpm Impressions: Chest CT 03/16/20 00:00 IMPRESSION: 1. Since the previous examination dated 04/21/2019, new development of a large right pleural effusion. Mild consolidation in the right middle and lower lobes with associated air bronchograms, may be on the basis of pneumonia and or atelectasis. 2. New mild to moderate left pleural effusion with left lower lobe compressive atelectasis or pneumonia. 3. Stable mediastinal and right hilar lymphadenopathy. 4. Interval placement left-sided dialysis catheter. 5. Mild volume of ascites in the abdomen. 6. Diffuse gallbladder wall thickening. 7. Additional findings as above. Thoracentesis Ultrasound 03/18/20 06:00 IMPRESSION: SUCCESSFUL THORACENTESIS USING ULTRASOUND GUIDANCE. Assessment & Plan - Diagnosis (1) Atrial fibrillation Is this a current diagnosis for this admission?: Yes Plan: Atrial fibrillation rapid ventricular response. Exacerbated by respiratory distress. Doing much better Agree with uptitrating beta-jelani as tolerated although this seems to be limited by soft blood pressures Agree with use of midodrine to increase blood pressure and minimizing volume removal at dialysis. This will give more room on blood pressure to uptitrate beta-jelani Patient has leadless pacemaker in situ for pacing backup. Given mechanical mitral valve warfarin for systemic anticoagulation. (2) ESRD (end stage renal disease) on dialysis Is this a current diagnosis for this admission?: Yes Plan: Per nephrology. Dialysis is continuing. Left volume removal to facilitate better blood pressure so we can uptitrate beta-jelani. - Notes Notes: Would recommend rate control for atrial fibrillation. On systemic anticoagulation for mechanical mitral valve as well as atrial f ibrillation Doing much better clinically with better rate control.
--- NOTE | 2020-03-22 13:32 | PDOC PROGRESS REPORT ---
Subjective Progress Note for:: 03/22/20 Reason For Visit: ATRIAL FLUTTER WITH RAPID VENTRICULAR RATE 03/22/2020 Patient admitted with atrial fib, mitral valve stenosis bilateral pleural effusion more respiratory distress, COPD, chronic kidney disease, tachybradycardia syndrome Physical Exam Vital Signs: Temp Pulse Resp BP Pulse Ox 97.6 F 143 H 16 100/65 97 03/22/20 08:14 03/22/20 08:14 03/22/20 08:14 03/22/20 08:14 03/22/20 08:14 Intake & Output 03/21/20 03/22/20 03/23/20 06:59 06:59 06:59 Intake Total 1587 1201 Output Total 1250 2350 Balance 337 -1149 Weight 54.1 kg 55.8 kg General appearance: PRESENT: no acute distress Respiratory exam: PRESENT: clear to auscultation [place]. ABSENT: rales, rhonchi, wheezes Cardiovascular exam: PRESENT: RRR. ABSENT: diastolic murmur, rubs, systolic murmur Neurological exam: PRESENT: alert, awake, oriented to person, oriented to place, oriented to time, oriented to situation, CN II-XII grossly intact. ABSENT: motor sensory deficit Psychiatric exam: PRESENT: anxious Results Laboratory Results: 03/21/20 06:57 03/22/20 04:42 03/22/20 04:42 Sodium 131.6 L Potassium 4.2 Chloride 97 L Carbon Dioxide 26 Anion Gap 9 BUN 26 H Creatinine 1.80 H Est GFR ( Amer) 47 L Glucose 86 Calcium 9.1 03/18/20 15:15 Pleural Fluid - Right Pleural Effusion Gram Stain - Final 03/18/20 15:15 Pleural Fluid - Right Pleural Effusion Body Fluid Culture - Final NO AEROBIC OR ANAEROBIC ORGANISMS RECOVERED 03/14/20 16:22 Troponin I 0.020 Impressions: Chest CT 03/16/20 00:00 IMPRESSION: 1. Since the previous examination dated 04/21/2019, new development of a large right pleural effusion. Mild consolidation in the right middle and lower lobes with associated air bronchograms, may be on the basis of pneumonia and or atelectasis. 2. New mild to moderate left pleural effusion with left lower lobe compressive atelectasis or pneumonia. 3. Stable mediastinal and right hilar lymphadenopathy. 4. Interval placement left-sided dialysis catheter. 5. Mild volume of ascites in the abdomen. 6. Diffuse gallbladder wall thickening. 7. Additional findings as above. Thoracentesis Ultrasound 03/18/20 06:00 IMPRESSION: SUCCESSFUL THORACENTESIS USING ULTRASOUND GUIDANCE. Assessment and Plan - Diagnosis (1) Atrial fibrillation with RVR Is this a current diagnosis for this admission?: Yes (2) Bilateral pleural effusion Is this a current diagnosis for this admission?: Yes (3) ESRD (end stage renal disease) on dialysis Is this a current diagnosis for this admission?: Yes (4) Mitral valve stenosis Qualifiers: Cardiac valve disease etiology: rheumatic Qualified Code(s): I05.0 - Rheumatic mitral stenosis Is this a current diagnosis for this admission?: Yes (5) Tachy-barry syndrome Is this a current diagnosis for this admission?: Yes (6) COPD (chronic obstructive pulmonary disease) Qualifiers: COPD type: unspecified COPD Qualified Code(s): J44.9 - Chronic obstructive pulmonary disease, unspecified Is this a current diagnosis for this admission?: Yes - Plan Summary Summary: Obtained records of recent stay at [facility]. Patient was at [place] from 11/09/2019 until 02/28/2020. Initially went in for mitral valve replacement. Brief summary of stay as below: Preop assessment was done on 09/16/2019: Echo showed severe mitral stenosis, EF 55%, PASP 44.6 mmHg, moderate to severe TR. RHC: PCWP 19, PA 87/33, mPAP 51 mmHg, PA SaO2 67%, 10 Wood units PVR, CO 3.2 done on 11/10/2019 via open heart surgery replacement of [facility] [employer] mechanical mitral valve. LHC: 0% stenosis all throughout RCA, LAD, left main and left circumflex MVR performed via open heart surgery on 11/10/[address] Robbins. Went into atrial fibrillation with RVR requiring DCCV on 11/26/2019. Initially placed on amiodarone but later discontinued. Right pleural effusion noted then and treated with diuretics. Also treated at that time for possible pneumonia and oral thrush. Went into RVR again on 12/08/2019 and underwent DCCV but subsequently became bradycardic leading to PEA arrest. Successfully resuscitated. Underwent ex-lap to evaluate abdominal distention and gallbladder on 12/08/2019 but surgery was unrevealing. 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 Subsequent to the PEA arrest he developed shock liver which later resolved and also renal failure and has been on dialysis since then. Improved underwent physical therapy and discharged home to continue with outpatient dialysis. Set to follow-up with his PCP, baker operator automatic Dr. Papi Lou in 4 to 6 weeks, and CT surgery Dr. Robbins if needed. 03/22/2020 temperature 97.6 pulse is anywhere from 80-143 Blood pressure 100/65, actually runs low sometimes 88/53 O2 sat 94% to 97% on room air Yesterday patient was wanting to sign out AMA but today he is more reasonable and understands that we need to get his INR up to therapeutic range 2.5-3.5, due to his mechanical heart valve, today his INR is 2.0 trending upward. Patient also needs to have a 24-hour urine collection. Patient is currently receiving hemodialysis. Once patient's 24-hour urine collection has been obtained and he is therapeutic on Coumadin he can be discharged home. Patient is on Lopressor 50 mg every 12 hours, midodrine 2.5 mg twice daily,Coumadin 2.5 mg nightly Nephrology and I have discussed his case - Time Time Spent with patient: 25-34 minutes
--- NOTE | 2020-03-22 18:57 | PDOC PROGRESS REPORT ---
Subjective Progress Note for:: 03/22/20 Subjective:: I saw the patient together with PETRA Velasquez. He did not have any complaints. He did give a status showed that he gave me yesterday. As long day explained to him, his INR is not yet therapeutic and it will be through his best interest to stay in the hospital and he agreed. I explained to the patient again today that in order for us to determine if he needs to continue with hemodialysis regularly, we would need to collect a 24- hour urine for creatinine clearance. He agreed to religiously use the urinal so that we can collect a 24-hour urine creatinine clearance. Reason For Visit: ATRIAL FLUTTER WITH RAPID VENTRICULAR RATE Physical Exam Vital Signs: Temp Pulse Resp BP Pulse Ox 97.6 F 143 H 16 100/65 97 03/22/20 08:14 03/22/20 08:14 03/22/20 08:14 03/22/20 08:14 03/22/20 08:14 Intake & Output 03/21/20 03/22/20 03/23/20 06:59 06:59 06:59 Intake Total 1587 1201 Output Total 1250 2350 Balance 337 -1149 Weight 54.1 kg 55.8 kg Exam: General appearance: PRESENT: no acute distress, cooperative, well-developed, well-nourished Head exam: PRESENT: atraumatic, normocephalic Eye exam: PRESENT: conjunctiva slightly pale, PERRLA. ABSENT: scleral icterus Neck exam: ABSENT: JVD Respiratory exam: PRESENT: Diminished breath sounds. ABSENT: crackles, rales, rhonchi, unlabored, wheezes Cardiovascular exam: PRESENT: Irregularly irregular rate rhythm -+S1, +S2. Audible mechanical mitral valve ABSENT: diastolic murmur, systolic murmur GI/Abdominal exam: PRESENT: normal bowel sounds, soft. ABSENT: guarding, mass, tenderness Extremities exam: Grade 1 bilateral lower extremity pitting edema Neurological exam: PRESENT: alert, awake, oriented to person, place and time. Skin exam: PRESENT: dry, warm, Cardiovascular exam: PRESENT: RRR, +S1, +S2. ABSENT: rubs GI/Abdominal exam: PRESENT: normal bowel sounds, soft. ABSENT: organomegaly, tenderness Results Laboratory Results: 03/21/20 06:57 03/21/20 06:57 03/21/20 08:55 Urine Color YELLOW Urine Appearance CLEAR Urine pH 7.0 Ur Specific [place] 1.012 Urine Protein NEGATIVE Urine Glucose (UA) NEGATIVE Urine Ketones NEGATIVE Urine Blood NEGATIVE Urine Nitrite NEGATIVE Ur Leukocyte Esterase NEGATIVE Urine WBC (Auto) 1 Urine RBC (Auto) 0 03/18/20 15:15 Pleural Fluid - Right Pleural Effusion Gram Stain - Final 03/18/20 15:15 Pleural Fluid - Right Pleural Effusion Body Fluid Culture - Final NO AEROBIC OR ANAEROBIC ORGANISMS RECOVERED 03/18/20 15:15 Pleural Fluid AFB Smear Concentration - Final 03/18/20 15:15 Pleural Fluid Acid Fast Bacilli Smear - Final 03/14/20 16:22 Troponin I 0.020 Impressions: Chest CT 03/16/20 00:00 IMPRESSION: 1. Since the previous examination dated 04/21/2019, new development of a large right pleural effusion. Mild consolidation in the right middle and lower lobes with associated air bronchograms, may be on the basis of pneumonia and or atelectasis. 2. New mild to moderate left pleural effusion with left lower lobe compressive atelectasis or pneumonia. 3. Stable mediastinal and right hilar lymphadenopathy. 4. Interval placement left-sided dialysis catheter. 5. Mild volume of ascites in the abdomen. 6. Diffuse gallbladder wall thickening. 7. Additional findings as above. Thoracentesis Ultrasound 03/18/20 06:00 IMPRESSION: SUCCESSFUL THORACENTESIS USING ULTRASOUND GUIDANCE. Assessment & Plan - Diagnosis (1) ESRD (end stage renal disease) on dialysis Is this a current diagnosis for this admission?: Yes Plan: As stated above, I will have a 24-hour urine collected for creatinine clearance and protein. Depending on the results we will decide if the patient needs to continue with hemodialysis treatment regularly. Will reevaluate in the morning if the patient needs hemodialysis tomorrow as we did dialysis yesterday. (2) Atrial fibrillation Is this a current diagnosis for this admission?: Yes Plan: With intermittent rapid ventricular response. Metoprolol dose increased. Cardiology following. (3) Bilateral pleural effusion Is this a current diagnosis for this admission?: Yes Plan: Status post right thoracentesis on 03/18/2020. Breathing improved after thor acentesis. (4) Mitral valve stenosis Qualifiers: Cardiac valve disease etiology: rheumatic Qualified Code(s): I05.0 - Rheumatic mitral stenosis Is this a current diagnosis for this admission?: Yes Plan: Status post [facility] mechanical valve replacement on November 10, 2019 now on chronic anticoagulation with INR goal of 2.5-3.0. Current INR is still subtherapeutic. (5) Tachy-barry syndrome Is this a current diagnosis for this admission?: Yes Plan: Status post leadless pacemaker placement. (6) Hyponatremia Is this a current diagnosis for this admission?: Yes Plan: Likely due to still significant hypervolemic state. - Time Time with patient: 15-25 minutes
[2020-03-22] MEDS ORDERED: WARFARIN SODIUM 2.5 MG TABLET PO SCH (22:00)
[2020-03-22] MEDS: TRAZODONE HCL 50 MG TABLET PO SCH (22:11)
[2020-03-22] MEDS: HYDROXYZINE PAMOATE 50 MG CAPSULE PO SCH (22:12)
[2020-03-23 06:09] LABS: INTERNATIONAL RATION (INR) 2.38; PROTHROMBIN TIME 26.4 SEC (11.4-15.4)
[2020-03-23 06:10] LABS: PARTIAL THROMBOPLASTIN TIME 81.4 SEC (23.5-35.8)
[2020-03-23 06:22] LABS: ANION GAP 11 (5-19); BLOOD UREA NITROGEN 31 mg/dL (7-20); CALCIUM 9.4 mg/dL (8.4-10.2); CARBON DIOXIDE 24 mmol/L (22-30); CHLORIDE 99 mmol/L (98-107); GLUCOSE 93 mg/dL (75-110); POTASSIUM 4.3 mmol/L (3.6-5.0)
[2020-03-23] MEDS: HEPARIN SODIUM,PORCINE/D5W 25,000 UNIT/250 ML RTUINJ IV PRN (07:28)
--- NOTE | 2020-03-23 09:26 | PDOC PROGRESS REPORT ---
Subjective Progress Note for:: 03/23/20 Subjective:: Patient seen and examined. Resting well. Telemetry shows rate controlled atrial fibrillation at 100 bpm no complaints reported. Patient reports fatigue. INR is 2.38 today Reason For Visit: ATRIAL FLUTTER WITH RAPID VENTRICULAR RATE Physical Exam Vital Signs: Temp Pulse Resp BP Pulse Ox 97.7 F 103 H 16 116/69 98 03/23/20 03:22 03/23/20 07:00 03/23/20 03:22 03/23/20 03:22 03/23/20 03:22 Intake & Output 03/22/20 03/23/20 03/24/20 06:59 06:59 06:59 Intake Total 1451 940 Output Total 2350 875 Balance -899 65 Weight 55.8 kg 54.9 kg General appearance: PRESENT: no acute distress, cooperative, well-developed, well-nourished Head exam: PRESENT: atraumatic, normocephalic Eye exam: PRESENT: conjunctiva pink Mouth exam: PRESENT: moist Respiratory exam: PRESENT: clear to auscultation [place], symmetrical, unlabored Cardiovascular exam: PRESENT: irregular rhythm, +S1, +S2 Pulses: PRESENT: normal radial pulses GI/Abdominal exam: PRESENT: soft Rectal exam: PRESENT: deferred Neurological exam: PRESENT: alert, awake, oriented to person, oriented to place, oriented to time, oriented to situation Psychiatric exam: PRESENT: appropriate affect Skin exam: PRESENT: dry, normal color Results Laboratory Results: 03/21/20 06:57 03/23/20 05:28 03/22/20 03/23/20 04:42 05:28 Sodium 131.6 L 133.5 L Potassium 4.2 4.3 Chloride 97 L 99 Carbon Dioxide 26 24 Anion Gap 9 11 BUN 26 H 31 H Creatinine 1.80 H 2.09 H Est GFR ( Amer) 47 L 40 L Glucose 86 93 Calcium 9.1 9.4 03/18/20 15:15 Pleural Fluid - Right Pleural Effusion Gram Stain - Final 03/18/20 15:15 Pleural Fluid - Right Pleural Effusion Body Fluid Culture - Final NO AEROBIC OR ANAEROBIC ORGANISMS RECOVERED 03/14/20 16:22 Troponin I 0.020 Impressions: Chest CT 03/16/20 00:00 IMPRESSION: 1. Since the previous examination dated 04/21/2019, new development of a large right pleural effusion. Mild consolidation in the right middle and lower lobes with associated air bronchograms, may be on the basis of pneumonia and or atelectasis. 2. New mild to moderate left pleural effusion with left lower lobe compressive atelectasis or pneumonia. 3. Stable mediastinal and right hilar lymphadenopathy. 4. Interval placement left-sided dialysis catheter. 5. Mild volume of ascites in the abdomen. 6. Diffuse gallbladder wall thickening. 7. Additional findings as above. Thoracentesis Ultrasound 03/18/20 06:00 IMPRESSION: SUCCESSFUL THORACENTESIS USING ULTRASOUND GUIDANCE. Assessment & Plan - Diagnosis (1) Atrial fibrillation Is this a current diagnosis for this admission?: Yes Plan: Atrial fibrillation rapid ventricular response. Exacerbated by respiratory distress. Doing much better Agree with uptitrating beta-jelani as tolerated although this seems to be limited by soft blood pressures Agree with use of midodrine to increase blood pressure and minimizing volume removal at dialysis. This will give more room on blood pressure to uptitrate beta-jelani Patient has leadless pacemaker in situ for pacing backup. Given mechanical mitral valve warfarin for systemic anticoagulation. INR today is 2.38 (2) ESRD (end stage renal disease) on dialysis Is this a current diagnosis for this admission?: Yes Plan: Per nephrology. Dialysis is continuing. Left volume removal to facilitate better blood pressure so we can uptitrate beta-jelani. - Notes Notes: Clinically much improved Rate control strategy for atrial fibrillation Warfarin for systemic anticoagulation with INR at 2.38.
[2020-03-23] MEDS: MIDODRINE HCL 5 MG TABLET PO SCH (10:30)
[2020-03-23] MEDS: SENNOSIDES/DOCUSATE 8.6-50 MG 1 EACH TABLET PO SCH (10:30)
[2020-03-23] MEDS: METOPROLOL TARTRATE 50 MG TABLET PO SCH (10:31)
[2020-03-23] MEDS: FUROSEMIDE 40 MG TABLET PO SCH (10:31)
[2020-03-23] MEDS: FLUTICASONE NASAL SPRAY 50 MCG/SPRY 120 SPRAY/16 GM NASL SCH (10:31)
[2020-03-23 11:39] LABS: APPEARANCE,URINE CLEAR; BILIRUBIN,URINE NEGATIVE (NEGATIVE); COLOR,URINE YELLOW; GLUCOSE, URINE NEGATIVE (NEGATIVE); KETONES,URINE NEGATIVE (NEGATIVE); LEUKOCYTE ESTERASE,URINE NEGATIVE (NEGATIVE); NITRITE,URINE NEGATIVE (NEGATIVE); PROTEIN,URINE NEGATIVE (NEGATIVE); URINE SPECIFIC GRAVITY 1.008; UROBILINOGEN,URINE NEGATIVE mg/dL (<2.0)
[2020-03-23 12:00] LABS: URINE PROTEIN 17.2 mg/dL (<12)
[2020-03-23 12:01] LABS: URINE CREATININE 54.5 mg/dL (22-328)
[2020-03-23 12:03] LABS: 24 HOUR URINE PROTEIN RESULT 143 mg/day (42-225); CREATININE 2.09 mg/dL (0.52-1.25)
[2020-03-23 16:07] VITALS: BP 98/70
--- NOTE | 2020-03-23 16:52 | Progress Note ---
Provider Note Provider Note: Patient was discharged home today. Patient told the nurse that he wanted his permacath pulled out he told her that he was not going to keep any of his appointments as scheduled with the project engineering director or the dental technician. Patient stated he probably would not take his medications as prescribed. I went to see the patient as he was being taken out in a wheelchair and he once again reiterated that he was not going to his appointments this week that he would possibly go next week on Saturday. Told him that it was very important for him to keep his appointments especially getting his INR checked as well as following up with both nephrology and cardiology. Patient seems very angry at everything. I Do not think patient is going to follow-up as he was instructed
--- NOTE | 2020-03-23 17:44 | PDOC DISCHARGE SUMMARY ---
Impression - Admit/DC Date/PCP Admission Date/Primary Care Provider: 03/14/20 19:09 ANASTACIO CHACKOKELSY Discharge Date: 03/23/20 - Discharge Diagnosis (1) Atrial fibrillation with RVR Is this a current diagnosis for this admission?: Yes (2) Bilateral pleural effusion Is this a current diagnosis for this admission?: Yes (3) ESRD (end stage renal disease) on dialysis Is this a current diagnosis for this admission?: Yes (4) Mitral valve stenosis Is this a current diagnosis for this admission?: Yes (5) Tachy-barry syndrome Is this a current diagnosis for this admission?: Yes (6) COPD (chronic obstructive pulmonary disease) Is this a current diagnosis for this admission?: Yes (7) Patient noncompliance Is this a current diagnosis for this admission?: Yes - Assessment Summary: Obtained records of recent stay at [facility]. Patient was at [facility] from 11/09/2019 until 02/28/2020. Initially went in for mitral valve replacement. Brief summary of stay as below: Preop assessment was done on 09/16/2019: Echo showed severe mitral stenosis, EF 55%, PASP 44.6 mmHg, moderate to severe TR. RHC: PCWP 19, PA 87/33, mPAP 51 mmHg, PA SaO2 67%, 10 Wood units PVR, CO 3.2 done on 11/10/2019 via open heart surgery replacement of [facility] mechanical mitral valve. LHC: 0% stenosis all throughout RCA, LAD, left main and left circumflex MVR performed via open heart surgery on 11/10/[address] Robbins. Went into atrial fibrillation with RVR requiring DCCV on 11/26/2019. Initially placed on amiodarone but later discontinued. Right pleural effusion noted then and treated with diuretics. Also treated at that time for possible pneumonia and oral thrush. Went into RVR again on 12/08/2019 and underwent DCCV but subsequently became bradycardic leading to PEA arrest. Successfully resuscitated. Underwent ex-lap to evaluate abdominal distention and gallbladder on 12/08/2019 but surgery was unrevealing. 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 Subsequent to the PEA arrest he developed shock liver which later resolved and also renal failure and has been on dialysis since then. Improved underwent physical therapy and discharged home to continue with outpatient dialysis. Set to follow-up with his PCP, second officer Dr. Papi Lou in 4 to 6 weeks, and CT surgery Dr. Robbins if needed. 03/22/2020 temperature 97.6 pulse is anywhere from 80-143 Blood pressure 100/65, actually runs low sometimes 88/53 O2 sat 94% to 97% on room air Yesterday patient was wanting to sign out AMA but today he is more reasonable and understands that we need to get his INR up to therapeutic range 2.5-3.5, due to his mechanical heart valve, today his INR is 2.0 trending upward. Patient also needs to have a 24-hour urine collection. Patient is currently receiving hemodialysis. Once patient's 24-hour urine collection has been obtained and he is therapeutic on Coumadin he can be discharged home. Patient is on Lopressor 50 mg every 12 hours, midodrine 2.5 mg twice daily,Coumadin 2.5 mg nightly Nephrology and I have discussed his case 03/23/2020 Patient's INR came up today to 2.38. His Coumadin dose is 2.5 mg nightly Patient finished his 24-hour urine collection for protein at [address] Rush stated that she wanted to see him back in the office for follow-up and that patient would also need dialysis on Saturday Dr. Shields dated that he would like to see the patient back in the office for follow-up for his atrial fibrillation, and other cardiac issues Patient told me that he gets his INR checked with Dr. Meadows. I informed the patient that he would need to have this done on Saturday 48 hours from now.. Patient was originally admitted to the hospital on March 14, 2020 with the following medical problems rheumatic mitral valve stenosis and status post mechanical mitral valve, pulmonary hypertension, congestive heart failure, paroxysmal supraventricular tachycardia, end-stage renal disease on dialysis, and a history of PEA arrest. Patient was at [facility] for approximately 3-4 months, during that time was placed on hemodialysis. On the day of admission here he was being seen at dialysis and following treatment he became short of breath. In the emergency room cardiology felt that the patient was in atrial flutter. Dr. Shields the second officer recommended putting the patient on IV metoprolol and BiPAP. Patient is a poor historian and does not know why he was on dialysis. Patient was unable to tell the provider the name of his primary care doctor on admission what medicines he was taking. Patient was seen by cardiology multiple occasions during his hospitalization, also seen by nephrology on multiple occasions. On a CT scan revealed a large right pleural effusion. The following day on the patient had a thoracentesis performed with approximately 900 cc removed. Fluid was straw-colored with no indication of infection. Patient's breathing was much improved following the procedure. Chest x-ray following thoracentesis showed no pneumothorax and a persistent right basilar opacity and mild pleural reaction. On March 21 patient was unhappy and somewhat angry and was threatening to sign himself out AGAINST MEDICAL ADVICE if not discharged to home. Ever patient's INR was subtherapeutic. Patient did in fact relate to staying until his INR came up to 2.38 and he did give us a 24-hour specimen. However when patient was being discharged home he told the nurse ,as well as myself that he was not going to keep his appointments, he was not going to take his medications as prescribed, and when the nurse was explaining to the patient the importance of it and the different physicians he stated that he did not "know who any of those physicians were". The time of discharge his medications have been adjusted to where his metoprolol is 50 mg every 12 hours his Midrin is 2.5 mg twice daily, and his Coumadin is 2.5 mg nightly. Other home meds remain the same. Patient had no shortness of breath at all at the time of discharge. Vital signs reveal temperature 97.9 pulse is 107 which is much improved blood pressure 98/70 oxygen saturations 98% on room air - Additional Information Discharge Diet: Cardiac, Other (Comments) Discharge Activity: Activity As Tolerated Referrals: SUJIT AMARO PA-C [PHYSICIAN PLATE DRYING MACHINE TENDER] - 04/04/20 8:30 am Prescriptions: Metoprolol Tartrate [Lopressor 50 mg Tablet] 50 mg PO Q12 30 Days #60 tablet Midodrine HCl [Proamatine 5 mg Tablet] 2.5 mg PO BID 30 Days #60 tablet Home Medications: Fluticasone Propionate [Flonase Nasal [place] 50 Mcg/[place] 16 gm] 2 spray NASL DAILY 03/14/20 Furosemide [Lasix 40 mg Tablet] 40 mg PO DAILY 03/14/20 Hydroxyzine HCl [Atarax 10 mg Tablet] 50 mg PO QHS 03/14/20 Oxycodone HCl [Oxy-Ir 5 mg Tablet] 5 mg PO Q6HP PRN 03/14/20 Polyethylene Glycol 3350 [Miralax Powder 17 gm/Packet] 1 packet PO DAILYP PRN 03/14/20 Ranitidine HCl [Zantac] 150 mg PO DAILY 03/14/20 Sennosides/Docusate Sodium [Senna Plus 8.6-50 mg Tablet] 2 tab PO BID 03/14/20 Trazodone HCl [Desyrel 50 mg Tablet] 50 mg PO QHS 03/14/20 Metoprolol Tartrate [Lopressor 50 mg Tablet] 50 mg PO Q12 30 Days #60 tablet 03/23/20 Midodrine HCl [Proamatine 5 mg Tablet] 2.5 mg PO BID 30 Days #60 tablet 03/23/20 Warfarin Sodium [Coumadin 2.5 mg Tablet] 2.5 mg PO QHS tablet 03/23/20 History of Present Illiness History of Present Illness: SHAHRZAD JAIN is a 59 year old male Physical Exam Vital Signs: Temp Pulse Resp BP Pulse Ox 97.9 F 107 H 14 98/70 L 98 03/23/20 16:03 03/23/20 16:03 03/23/20 16:03 03/23/20 16:03 03/23/20 16:03 Intake & Output 03/22/20 03/23/20 03/24/20 06:59 06:59 06:59 Intake Total 1451 940 195 Output Total 2350 875 200 Balance -899 65 -5 Weight 55.8 kg 54.9 kg Results Laboratory Results: WBC 5.2 10^3/uL (4.0-10.5) 03/21/20 06:57 RBC 4.01 10^6/uL (4.35-5.55) L 03/21/20 06:57 Hgb 11.6 g/dL (13.5-17.0) L 03/21/20 06:57 Hct 35.2 % (37.9-51.0) L 03/21/20 06:57 MCV 88 fl (80-97) 03/21/20 06:57 MCH 28.9 pg (27.0-33.4) 03/21/20 06:57 MCHC 32.9 g/dL (32.0-36.0) 03/21/20 06:57 RDW 16.7 % (11.5-14.0) H 03/21/20 06:57 Plt Count 206 10^3/uL (150-450) 03/21/20 06:57 Lymph % (Auto) 13.9 % (13-45) 03/14/20 16:22 [place] % (Auto) 9.4 % (3-13) 03/14/20 16:22 Eos % (Auto) 0.2 % (0-6) 03/14/20 16:22 Baso % (Auto) 0.9 % (0-2) 03/14/20 16:22 Absolute Neuts (auto) 7.5 10^3/uL (1.7-8.2) 03/14/20 16:22 Absolute Lymphs (auto) 1.4 10^3/uL (0.5-4.7) 03/14/20 16:22 Absolute Monos (auto) 0.9 10^3/uL (0.1-1.4) 03/14/20 16:22 Absolute Eos (auto) 0.0 10^3/uL (0.0-0.6) 03/14/20 16:22 Absolute Basos (auto) 0.1 10^3/uL (0.0-0.2) 03/14/20 16:22 Seg Neutrophils % 75.6 % (42-78) 03/14/20 16:22 PT 26.4 SEC (11.4-15.4) H 03/23/20 05:28 INR 2.38 03/23/20 05:28 APTT 81.4 SEC (23.5-35.8) H 03/23/20 05:28 Sodium 133.5 mmol/L (137-145) L 03/23/20 05:28 Potassium 4.3 mmol/L (3.6-5.0) 03/23/20 05:28 Chloride 99 mmol/L (98-107) 03/23/20 05:28 Carbon Dioxide 24 mmol/L (22-30) 03/23/20 05:28 Anion Gap 11 (5-19) 03/23/20 05:28 BUN 31 mg/dL (7-20) H 03/23/20 05:28 Creatinine 2.09 mg/dL (0.52-1.25) H 03/23/20 05:28 Est GFR ( Amer) 40 (>60) L 03/23/20 05:28 Est GFR (MDRD) Non-Af 33 (>60) L 03/23/20 05:28 Glucose 93 mg/dL (75-110) 03/23/20 05:28 POC Glucose 81 mg/dL (70-110) 03/15/20 10:04 Calcium 9.4 mg/dL (8.4-10.2) 03/23/20 05:28 Magnesium 2.0 mg/dL (1.6-2.3) 03/14/20 16:22 Total Bilirubin 1.4 mg/dL (0.2-1.3) H 03/14/20 16:22 Direct Bilirubin 0.6 mg/dL (0.0-0.4) H 03/14/20 16:22 Neonat Total Bilirubin Not Reportable 03/14/20 16:22 Neonat Direct Bilirubin Not Reportable 03/14/20 16:22 Neonat Indirect Bili Not Reportable 03/14/20 16:22 AST 34 U/L (17-59) 03/14/20 16:22 ALT 12 U/L (<50) 03/14/20 16:22 Alkaline Phosphatase 150 U/L (38-126) H 03/14/20 16:22 Lactate Dehydrogenase 162 U/L (120-246) 03/18/20 05:20 Troponin I 0.020 ng/mL 03/14/20 16:22 Total Protein 6.3 g/dL (6.3-8.2) 03/18/20 05:20 Albumin 4.4 g/dL (3.5-5.0) 03/14/20 16:22 Urine Color YELLOW 03/23/20 11:15 Urine Appearance CLEAR 03/23/20 11:15 Urine pH 8.0 (5.0-9.0) 03/23/20 11:15 Ur Specific [place] 1.008 03/23/20 11:15 Urine Protein NEGATIVE mg/dL (NEGATIVE) 03/23/20 11:15 Urine Glucose (UA) NEGATIVE mg/dL (NEGATIVE) 03/23/20 11:15 Urine Ketones NEGATIVE mg/dL (NEGATIVE) 03/23/20 11:15 Urine Blood NEGATIVE (NEGATIVE) 03/23/20 11:15 Urine Nitrite NEGATIVE (NEGATIVE) 03/23/20 11:15 Urine Bilirubin NEGATIVE (NEGATIVE) 03/23/20 11:15 Urine Urobilinogen NEGATIVE mg/dL (<2.0) 03/23/20 11:15 Ur Leukocyte Esterase NEGATIVE (NEGATIVE) 03/23/20 11:15 Urine WBC (Auto) 0 /HPF 03/23/20 11:15 Urine RBC (Auto) 0 /HPF 03/23/20 11:15 U Hyaline Cast (Auto) 1 /LPF 03/21/20 08:55 Urine Bacteria (Auto) 1+ /HPF 03/20/20 07:45 Squamous Epi Cells Auto <1 /HPF 03/15/20 22:30 Urine Mucus (Auto) RARE /LPF 03/23/20 11:15 Ur 24 Hour Volume 830 mL 03/22/20 11:13 Ur 24 Hour Volume 830 mL 03/22/20 11:13 Urine Creatinine 54.5 mg/dL (22-328) 03/22/20 11:13 Serum Creatinine 2.09 mg/dL (0.52-1.25) H 03/22/20 11:13 Creatinine Clearance 15 mL/min (87-140) L 03/22/20 11:13 Ur Total Protein 24 Hr 143 mg/day (42-225) 03/22/20 11:13 Urine Total Protein 17.2 mg/dL (<12) H 03/22/20 11:13 Urine Ascorbic Acid NEGATIVE (NEGATIVE) 03/23/20 11:15 Fluid Type PLEURAL 03/18/20 15:15 Fluid Source LUNG 03/18/20 15:15 Fluid Color YELLOW 03/18/20 15:15 Fluid Appearance SLIGHTLY HAZY 03/18/20 15:15 Fluid Viscosity SLIGHTLY VISCOUS 03/18/20 15:15 Fluid WBC 16 /uL 03/18/20 15:15 Fluid RBC 22 /uL 03/18/20 15:15 Fluid Seg Neutrophils 40 % 03/18/20 15:15 Fluid Lymphocytes 60 % 03/18/20 15:15 Fluid Monocytes 0 % 03/18/20 15:15 Fluid Eosinophils 0 % 03/18/20 15:15 Fluid Basophils 0 % 03/18/20 15:15 Fluid Glucose 87 mg/dL (.) 03/18/20 15:15 Fluid Total Protein 2.3 g/dL (.) 03/18/20 15:15 Fluid LDH 62 IU/L (.) 03/18/20 15:15 Digoxin 1.34 ng/mL (0.8-2.0) 03/17/20 04:43 AFB Smear NO ACID FAST BACILLI (NO AFB SEEN) 03/18/20 15:15 03/14/20 16:22 Troponin I 0.020 Impressions: Chest X-Ray 03/14/20 17:18 IMPRESSION: 1. Abnormal appearance of the chest. Extensive pleuroparenchymal changes as described. Since the prior from last year, patient has also had surgery. If clinically warranted, further evaluation with chest CT may help to better evaluate the lung changes. Chest CT 03/16/20 00:00 IMPRESSION: 1. Since the previous examination dated 04/21/2019, new development of a large right pleural effusion. Mild consolidation in the right middle and lower lobes with associated air bronchograms, may be on the basis of pneumonia and or atelectasis. 2. New mild to moderate left pleural effusion with left lower lobe compressive atelectasis or pneumonia. 3. Stable mediastinal and right hilar lymphadenopathy. 4. Interval placement left-sided dialysis catheter. 5. Mild volume of ascites in the abdomen. 6. Diffuse gallbladder wall thickening. 7. Additional findings as above. Chest X-Ray 03/18/20 00:00 IMPRESSION: No pneumothorax post thoracentesis. Mild residual effusion and basilar opacities, likely atelectasis. Thoracentesis Ultrasound 03/18/20 06:00 IMPRESSION: SUCCESSFUL THORACENTESIS USING ULTRASOUND GUIDANCE. Stroke Is this a Stroke Patient?: No Acute Heart Failure - Is this a Heart Failure Patient?: Yes Documentation of LVEF assessment?: Planned for after discharge LVEF < 40%?: No- if no continue to question #3 3. Anticoagulant therapy for permanect/persistent/paraoxysmal Afib or Aflutter: Yes Follow-up Appointment scheduled within 7 days?: Yes
== END 2020-03-23 17:12 | disposition home or self-care (01) | DRG 308 ==
LOC: ER 16:15 → EH 19:09 → 3S 20:55
PROVIDERS: ADMIT Family Medicine; ATTEND Physician Assistant
PROC: 5A09557 Assistance with Respiratory Ventilation, Greater than 96 Consecutive Hours, Continuous Positive Airway Pressure (ICD-10-PCS; principal; 2020-03-14)
PROC: 5A1D70Z Performance of Urinary Filtration, Intermittent, Less than 6 Hours Per Day (ICD-10-PCS; 2020-03-16)
PROC: 0W993ZX Drainage of Right Pleural Cavity, Percutaneous Approach, Diagnostic (ICD-10-PCS; 2020-03-18)
DX: I48.19 Other persistent atrial fibrillation (principal); N18.6 End stage renal disease; J96.01 Acute respiratory failure with hypoxia; J90 Pleural effusion, not elsewhere classified; I50.32 Chronic diastolic (congestive) heart failure; I13.2 Hypertensive heart and chronic kidney disease with heart failure and with stage 5 chronic kidney disease, or end stage renal disease; E87.1 Hypo-osmolality and hyponatremia; I48.92 Unspecified atrial flutter; I49.5 Sick sinus syndrome; J44.9 Chronic obstructive pulmonary disease, unspecified; R79.1 Abnormal coagulation profile; I27.20 Pulmonary hypertension, unspecified; I47.1 Supraventricular tachycardia; Z96.641 Presence of right artificial hip joint; I05.1 Rheumatic mitral insufficiency; Z91.19 Patient's noncompliance with other medical treatment and regimen; Z95.2 Presence of prosthetic heart valve; Z87.891 Personal history of nicotine dependence; Z79.01 Long term (current) use of anticoagulants; Z88.8 Allergy status to other drugs, medicaments and biological substances; Z95.0 Presence of cardiac pacemaker
CPT/HCPCS: 32555; 36415; 71045; 71250; 80048; 80053; 80162; 81001; 82575; 82945; 82962; 83615; 83735; 84155; 84156; 84157; 84484; 85025; 85027; 85610; 85730; 87015; 87070; 87075; 87116; 87205; 87206; 88305; 89050; 93005; 93010; 93306; 94660; 94799; 96374; 96375; 96376; 99291; J0153; J1160; J1644; J1650; J2405; J3490; J7030; J7040

== ENCOUNTER 2020-03-31 10:38 | Inpatient (IN) | payer MEDICAID ==
--- NOTE | 2020-03-31 10:42 | ER Document Report ---
ED General - General Stated Complaint: SHORTNESS OF BREATH Time Seen by Provider: 03/31/20 10:39 Primary Care Provider: ANASTACIO CHACKO FNP-C [NO LOCAL MD] - Follow up as needed Mode of Arrival: Medic Information source: Patient, Emergency Med Personnel Notes: Patient is a 59-year-old male presenting to the emergency department chief complaint of shortness of breath. Patient presents to the ER via EMS. Patient states that he had valve replacement surgery at the end of February. Since that time he has had continued shortness of breath and states that he has decreased appetite decreased mobility and relates conversational and exertional dyspnea. Patient denies fevers or chills. Patient denies travel history trauma history or obvious sick contacts. Patient states he is not feel any improvement since being released from the hospital. TRAVEL OUTSIDE OF THE [place] IN LAST 30 DAYS: No - HPI Onset: Last week Onset/Duration: Gradual, Persistent, Worse Quality of pain: Achy Severity: Mild Pain Level: 1 Associated symptoms: Leg swelling, Shortness of breath. denies: Nonproductive cough, Productive cough, Diarrhea, Nausea, Vomiting Exacerbated by: Movement, Walking, Coughing, Deep breathing Relieved by: Denies Similar symptoms previously: Yes Recently seen / treated by doctor: Yes - Related Data Allergies/Adverse Reactions: metoprolol tartrate [From Lopressor] Adverse Reaction (Verified 03/14/20 18:54) Generalized rash Past Medical History - General Information source: Patient, [facility] Records - Social History Smoking Status: Former Smoker Cigarette use (# per day): No Chew tobacco use (# tins/day): No Smoking Education Provided: No Frequency of alcohol use: None Drug Abuse: None Lives with: Family Family History: Reviewed & Not Pertinent Patient has suicidal ideation: No Patient has homicidal ideation: No - Past Medical History Cardiac Medical History: Reports: Hx Atrial Fibrillation, Hx Hypertension Pulmonary Medical History: Reports: Hx COPD Denies: Hx Tuberculosis Neurological Medical History: Reports: Hx Seizures - LAST 5 YR AGO Renal/ Medical History: Reports: Hx End Stage Renal Disease. 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 Denies: Hx Pacemaker - Immunizations Immunizations up to date: Yes Hx Diphtheria, Pertussis, Tetanus Vaccination: Yes Hx Pneumococcal Vaccination: 08/25/18 Review of Systems - Review of Systems Notes: REVIEW OF SYSTEMS: CONSTITUTIONAL : Denies fever, chills, or sweats. Denies recent illness. EENT: Denies eye, ear, throat, or mouth pain or symptoms. Denies nasal or sinus congestion. CARDIOVASCULAR: Per HPI RESPIRATORY: Per HPI GASTROINTESTINAL: Denies abdominal pain. Denies nausea, vomiting, or diarrhea. Denies constipation. GENITOURINARY: Denies difficulty urinating, painful urination, burning, frequency, or blood in urine. MUSCULOSKELETAL: Denies neck or back pain or joint pain or swelling. SKIN: Denies rash or skin lesions. HEMATOLOGIC : Denies easy bruising or bleeding. NEUROLOGICAL: Denies altered mental status or loss of consciousness. Denies headache. Denies weakness or paralysis or loss of use of either side. Denies problems with gait or speech. Denies sensory or motor loss. PSYCHIATRIC: Denies suicidal or homicidal ideations 10 Systems are negative unless otherwise specified above Physical Exam - Vital signs Vitals: Temp Pulse Ox 96.7 F L 100 03/31/20 10:38 03/31/20 10:38 - Notes Notes: PHYSICAL EXAMINATION: GENERAL: Well-appearing, and in no acute distress. HEAD: Atraumatic, normocephalic. EYES: Pupils equal round and reactive to light, extraocular movements intact, sclera anicteric, conjunctiva are normal. ENT: nares patent, oropharynx clear without exudates. Moist mucous membranes. NECK: Normal range of motion, supple without lymphadenopathy, no appreciable JVD LUNGS: Lungs demonstrate decreased lung sounds one third of the way up otherwise no wheezes rales or rhonchi, patient does demonstrate conversational dyspnea. HEART: Tachycardic rate regular rhythm, mechanical valve heard best over the left chest wall ABDOMEN: Soft, nontender, normal bowel sounds. No guarding, no rebound. No masses appreciated. EXTREMITIES: Active full range of motion, positive edema to the bilateral lower extremities mid calf 1+. No cyanosis. 2+ pulses x4 NEUROLOGICAL: No focal neurological deficits. Moves all extremities spontaneo usly and on command. SKIN: Warm, Dry, and intact. Normal turgor, no rashes or lesions noted. Course - Re-evaluation Re-evalutation: 03/31/20 13:50 Patient has remained stable while in the emergency department patient received metoprolol IV which did address the patient's tachycardia secondary to the patient not taking his medication this morning. Subsequently the patient did have lab EKG portable chest x-ray and subsequent chest x-ray which demonstrates right lower lobe pneumonia and right-sided possibly loculated pleural effusion. Labs demonstrate markedly elevated BNP. Patient has been consulted to the hospitalist for admission, however they did state that they were requesting an echocardiogram prior to admission secondary to the patient's recent valve replacement surgery. They state that they want to make sure that the valve has not failed. Patient has been given Lasix 40 mg IV, Rocephin 1 g IV and a azithromycin 500 mg IV for management of CHF as well as pneumonia respectively. 03/31/20 15:57 Was contacted by hospitalist at this time. He states that they will accept the patient for admission even prior to the echocardiogram being performed. Patient has remained stable at this time is agreeable with admission and has received medications as previously discussed. - Vital Signs Vital signs: Temp Pulse Resp BP Pulse Ox 96.9 F L 21 H 105/73 97 03/31/20 12:46 03/31/20 15:31 03/31/20 15:31 03/31/20 15:16 - Laboratory Result Diagrams: 03/31/20 11:02 03/31/20 11:02 Laboratory results interpreted by me: 03/31/20 03/31/20 03/31/20 11:02 11:02 11:02 RDW 17.1 H Lymph % (Auto) 10.5 L Seg Neutrophils % 80.9 H PT 18.5 H Sodium 131.8 L Chloride 94 L BUN 22 H Creatinine 2.13 H Est GFR ( Amer) 39 L Est GFR (MDRD) Non-Af 32 L Direct Bilirubin 0.5 H Alkaline Phosphatase 153 H Creatine Kinase 39 L NT-Pro-B Natriuret Pep 03/31/20 11:02 RDW Lymph % (Auto) Seg Neutrophils % PT Sodium Chloride BUN Creatinine Est GFR ( Amer) Est GFR (MDRD) Non-Af Direct Bilirubin Alkaline Phosphatase Creatine Kinase NT-Pro-B Natriuret Pep 76753 H - Diagnostic Test Radiology reviewed: Image reviewed, Reports reviewed - EKG Interpretation by Me EKG shows normal: Sinus rhythm Rate: Tachycardia Rhythm: NSR Voltage: Consistant with LVH When compared to previous EKG there are: Previous EKG unavailable Critical Care Note - Critical Care Note Total time excluding time spent on procedures (mins): 40 Comments: Please allow 40 minutes of critical care time spent obtaining history from patient or surrogate, discussions with consultants, development of treatment plan with patient or surrogate, evaluation of patient's response to treatment, examination of patient. This also includes ordering and reviewing laboratory, EKG and / or radiologic studies, performing and reassessing treatments and interventions as well as reviewing previous visits and old charts. This is exclusive of separately billable procedures. Discharge - Discharge Clinical Impression: Shortness of breath, Pleural effusion Atrial fibrillation Qualifiers: Atrial fibrillation type: unspecified Qualified Code(s): I48.91 - Unspecified atrial fibrillation Pneumonia Qualifiers: Pneumonia type: due to unspecified organism Laterality: right Lung location: lower lobe of lung Qualified Code(s): J18.9 - Pneumonia, unspecified organism CHF exacerbation Qualifiers: Heart failure type: unspecified Qualified Code(s): I50.9 - Heart failure, unspecified Condition: Fair Disposition: ADMITTED INPATIENT Admitting Provider: Tina (Hospitalist) Unit Admitted: IMCU Referrals: ANASTACIO CHACKO FNP-C [NO LOCAL MD] - Follow up as needed
[2020-03-31] MEDS ORDERED: ONDANSETRON HCL INJ/PF 4 MG/2 ML SDV IV ONE (10:57)
[2020-03-31] MEDS ORDERED: METOPROLOL TARTRATE PF/INJ 5 MG/5 ML SDV IV ONE (11:07)
[2020-03-31 11:15] LABS: ABSOLUTE BASOPHILS # (AUTO) 0.2 10^3/uL (0.0-0.2); ABSOLUTE MONOCYTES (AUTO) 0.6 10^3/uL (0.1-1.4); ABSOLUTE NEUT (AUTO) 7.8 10^3/uL (1.7-8.2); BASOPHILS % (AUTO) 1.6 % (0-2); EOSINOPHILS % (AUTO) 0.3 % (0-6); HEMOGLOBIN 13.8 g/dL (13.5-17.0); LYMPHOCYTES % (AUTO) 10.5 % (13-45); MEAN CORPUSCULAR HEMOGLOBIN 29.3 pg (27.0-33.4); MEAN CORPUSCULAR HGB CONC 33.6 g/dL (32.0-36.0); MEAN CORPUSCULAR VOLUME 87 fl (80-97); MONOCYTES % (AUTO) 6.7 % (3-13); PLATELET COUNT 427 10^3/uL (150-450); RED CELL DISTRIBUTION WIDTH 17.1 % (11.5-14.0); SEGMENTED NEUTROPHILS % (AUTO) 80.9 % (42-78); TOTAL CELLS COUNTED % (AUTO) 100 %; WHITE BLOOD COUNT 9.6 10^3/uL (4.0-10.5)
[2020-03-31 11:25] LABS: INTERNATIONAL RATION (INR) 1.52; PROTHROMBIN TIME 18.5 SEC (11.4-15.4)
[2020-03-31 11:36] LABS: ALBUMIN 4.4 g/dL (3.5-5.0); ALKALINE PHOSPHATASE 153 U/L (38-126); ANION GAP 15 (5-19); ASPARTATE AMINO TRANSFERASE 29 U/L (17-59); BILIRUBIN,DIRECT 0.5 mg/dL (0.0-0.4); BILIRUBIN,TOTAL 1.1 mg/dL (0.2-1.3); BLOOD UREA NITROGEN 22 mg/dL (7-20); CARBON DIOXIDE 23 mmol/L (22-30); CHLORIDE 94 mmol/L (98-107); CREATINE KINASE 39 U/L (55-170); GLUCOSE 89 mg/dL (75-110); POTASSIUM 4.5 mmol/L (3.6-5.0); TOTAL PROTEIN 8.2 g/dL (6.3-8.2)
--- NOTE | 2020-03-31 11:38 | RADIOLOGY REPORT (SQ) ---
EXAM DESCRIPTION: CHEST SINGLE VIEW IMAGES COMPLETED DATE/TIME: 03/31/2020 11:19 am REASON FOR STUDY: sob COMPARISON: 03/18/2020 NUMBER OF VIEWS: One view. TECHNIQUE: Single frontal radiographic image of the chest acquired. LIMITATIONS: None. FINDINGS: LUNGS AND PLEURA: Moderate right pleural effusion and associated airspace disease. The le ft lung is clear. MEDIASTINUM AND HEART: Stable heart size and mediastinal structures. SUPPORT DEVICES: Unchanged position of left central line. BONY STRUCTURES: No acute findings. HARDWARE: Prosthetic heart valve. Cardiac link monitor. OTHER: No other significant finding. IMPRESSION: Right lower lobe pneumonia. Reading location - IP/workstation name: [email or web address]
[2020-03-31 11:48] LABS: CREATINE KINASE MB 1.71 ng/mL (<4.55); TROPONIN I 0.016 ng/mL
--- NOTE | 2020-03-31 13:24 | EKG REPORT ---
SEVERITY:- ABNORMAL ECG - SINUS TACHYCARDIA NONSPECIFIC IVCD WITH LAD LEFT VENTRICULAR HYPERTROPHY : Confirmed by: Dandy Pickard MD 31-Mar-2020 13:23:48
--- NOTE | 2020-03-31 13:28 | RADIOLOGY REPORT (SQ) ---
EXAM DESCRIPTION: CTA CHEST IMAGES COMPLETED DATE/TIME: 03/31/2020 1:11 pm REASON FOR STUDY: ??PE COMPARISON: 03/16/2020 TECHNIQUE: CT scan of the chest performed using helical scanning technique with dynamic intravenous contrast injection. Images reviewed with lung, soft tissue and bone windows. Reconstructed coronal and sagittal MPR images reviewed. Additional 3 dimensional post-processing performed to develop Maximal Intensity Projection images (NC P). All images stored on PACS. All CT scanners at this facility use dose modulation, iterative reconstruction, and/or weight based d osing when appropriate to reduce radiation dose to as low as reasonably achievable (ALARA). [facility]: Dose Right [facility]: CareDose [facility]: Dose Right [facility]: Teradose 4D [facility]: Keko CONTRAST TYPE AND DOSE: contrast/concentration: Isovue 350.00 mg/ml; Total Contrast Delivered: 53.0 ml; Total Saline Delivered: 70.0 ml Contrast bolus optimized for the pulmonary arteries. Not diagnostic for the aorta. RENAL FUNCTION: GFR > 60. RADIATION DOSE: CT Rad equipment meets quality standard of care and radiation dose reduction techniq ues were employed. CTDIvol: 14.6 - 16.5 mGy. DLP: 550 mGy-cm. . LIMITATIONS: None. FINDINGS: LUNGS AND PLEURA: Moderate pleural effusion with loculated components suspected in the lat eral margin and possibly the medial margin. There is subsegmental consolidation in the right lower l obe. Bilateral calcified granulomas. Trace left pleural effusion. No infiltrate on the left. AORTA AND GREAT VESSELS: No aneurysm. Contrast bolus not optimized for the aorta. HEART: No pericardial effusion. PULMONARY ARTERIES: No emboli visualized in the main pulmonary arteries or the segmental branches. HILAR AND MEDIASTINAL STRUCTURES: No pathologically enlarged lymph nodes. HARDWARE: None in the chest. UPPER ABDOMEN: No significant findings. Limited exam. THYROID AND OTHER SOFT TISSUES: No masses. No adenopathy. BONES: Nothing acute. 3D MIPS: Confirm above findings. OTHER: No other significant finding. IMPRESSION: No PE. Chronic right pleural effusion with suspected loculated component. Chronic cons olidation in the right lower lobe, atelectasis versus pneumonia. COMMENT: Quality ID # [id number]: Final reports with documentation of one or more dose reduction techniques (e.g., Automated exposure control, adjustment of the mA and/or kV according to patient size, use of iterative reconstruction technique) TECHNICAL DOCUMENTATION: JOB ID: [id number] 2010 [employer]- All Rights Reserved Reading location - IP/workstation name: [email or web address]
[2020-03-31] MEDS ORDERED: AZITHROMYCIN INJ 500 MG VIAL IV ONE (13:39)
[2020-03-31] MEDS ORDERED: FUROSEMIDE INJ/PF 40 MG/4 ML SDV IV ONE (13:44)
[2020-03-31] MEDS ORDERED: CEFTRIAXONE 1 GM/D5W RTU 1 GM/50 ML RTUPB IV ONE (14:00)
[2020-03-31] MEDS ORDERED: MIDODRINE HCL 5 MG TABLET PO ONE (15:58)
[2020-03-31] MEDS ORDERED: ONDANSETRON HCL INJ/PF 4 MG/2 ML SDV IV PRN (16:18)
[2020-03-31] MEDS ORDERED: ACETAMINOPHEN 325 MG TABLET PO PRN (16:18)
[2020-03-31] MEDS ORDERED: IPRATROPIUM/ALBUTEROL 0.5-2.5 MG/3 ML AMPUL NEB PRN (16:18)
[2020-03-31] MEDS ORDERED: ONDANSETRON 4 MG TAB.RAPDIS PO PRN (16:18)
--- NOTE | 2020-03-31 16:56 | PDOC H&P ---
History of Present Illness Admission Date/PCP: 03/31/20 16:06 History of Present Illness: SHAHRZAD JAIN is a 59 year old male with past medical history significant for chronic A. fib, chronic recurrent bilateral pleural effusions, ESRD on HD, mitral valve stenosis status post valve replacement on Coumadin, tachybradycardia syndrome status post intracardiac pacemaker, COPD, longstanding medication noncompliance who presents with a 3-day history of progressive shortness of breath/PARRY with generalized fatigue and weakness. Patient did not take any of his medications on the day of admission here. He states he just did not feel well enough to take them but he does not articulate exactly what this means. He only repeats he is tired and he has been tired since he was discharged from here over 1 week ago. He is also on dialysis but is unclear if he is actually showing up to his dialysis appointments. His CTA of his chest today shows no PE, but it does show bilateral pleural effusions now with a loculation. Radiology hedged on questionable pneumonia however patient has no fever and a normal WBC, he also denies any cough/fever/chills/nausea/vomiting/diarrhea/abdominal pain. Very unlikely he has a pneumonia. I discussed the case in detail with other hospitalist physici harika ennis who have cared for the patient in the past as well as Dr. Vasquez and Dr. Shields to get the full history of the patient given he is an exceptionally poor historian. Patient will be admitted to stepdown unit for close hemodynamic monitoring. Past Medical History Cardiac Medical History: Reports: Atrial Fibrillation, Hypertension Pulmonary Medical History: Reports: Chronic Obstructive Pulmonary Disease (COPD), Respiratory Failure Denies: Tuberculosis Neurological Medical History: Reports: Seizures - LAST 5 YR AGO Renal/ Medical History: Reports: End Stage Renal Disease Past Surgical History Past Surgical History: Reports: Orthopedic Surgery - hip, arm, Valve Replacement, Other - Complicated mitral valve replacement for severe mitral stenosis? Denies: Pacemaker Social History Lives with: Family Smoking Status: Former Smoker Electronic Cigarette use?: No Frequency of Alcohol Use: Rare Hx Recreational Drug Use: No Drugs: None Hx Prescription Drug Abuse: No - Advance Directive Resuscitation Status: Full Code Surrogate healthcare decision maker:: Niece, Mony Family History Family History: Reviewed & Not Pertinent, CAD Parental Family History Reviewed: Yes Children Family History Reviewed: Yes Sibling(s) Family History Reviewed.: Yes Medication/Allergy Home Medications: Fluticasone Propionate [Flonase Nasal Amidon 50 Mcg/Amidon 16 gm] 2 spray NASL DAILY 03/14/20 Furosemide [Lasix 40 mg Tablet] 40 mg PO DAILY 03/14/20 Hydroxyzine HCl [Atarax 10 mg Tablet] 50 mg PO QHS 03/14/20 Oxycodone HCl [Oxy-Ir 5 mg Tablet] 5 mg PO Q6HP PRN 03/14/20 Polyethylene Glycol 3350 [Miralax Powder 17 gm/Packet] 1 packet PO DAILYP PRN 03/14/20 Ranitidine HCl [Zantac] 150 mg PO DAILY 03/14/20 Sennosides/Docusate Sodium [Senna Plus 8.6-50 mg Tablet] 2 tab PO BID 03/14/20 Trazodone HCl [Desyrel 50 mg Tablet] 50 mg PO QHS 03/14/20 Metoprolol Tartrate [Lopressor 50 mg Tablet] 50 mg PO Q12 30 Days #60 tablet 03/23/20 Midodrine HCl [Proamatine 5 mg Tablet] 2.5 mg PO BID 30 Days #60 tablet 03/23/20 Warfarin Sodium [Coumadin 2.5 mg Tablet] 2.5 mg PO QHS tablet 03/23/20 Allergies/Adverse Reactions: metoprolol tartrate [From Lopressor] Adverse Reaction (Verified 03/14/20 18:54) Generalized rash Review of Systems All systems: reviewed and no additional remarkable complaints except as stated - Review of systems per HPI, otherwise negative Physical Exam Vital Signs: Temp Pulse Resp BP Pulse Ox 96.9 F L 21 H 105/73 97 03/31/20 12:46 03/31/20 15:31 03/31/20 15:31 03/31/20 15:16 Intake & Output 03/30/20 03/31/20 04/01/20 06:59 06:59 06:59 Intake Total 50 Balance 50 Weight 57.2 kg General appearance: PRESENT: no acute distress, well-developed, well-nourished Head exam: PRESENT: atraumatic, normocephalic Eye exam: PRESENT: conjunctiva pink Respiratory exam: PRESENT: crackles, decreased breath sounds, unlabored. ABSE NT: stridor, tachypnea, wheezes Cardiovascular exam: PRESENT: RRR. ABSENT: diastolic murmur, rubs, systolic murmur GI/Abdominal exam: PRESENT: normal bowel sounds, soft. ABSENT: distended, guarding, mass, organolmegaly, rebound, tenderness Extremities exam: PRESENT: pedal edema, +2 edema Neurological exam: PRESENT: alert, awake, oriented to person, oriented to place, oriented to time, oriented to situation Psychiatric exam: PRESENT: flat affect, normal mood Skin exam: PRESENT: dry, intact, warm Results Laboratory Results: 03/31/20 11:02 03/31/20 11:02 03/31/20 03/31/20 11:02 11:02 WBC 9.6 RBC 4.70 Hgb 13.8 Hct 41.0 MCV 87 MCH 29.3 MCHC 33.6 RDW 17.1 H Plt Count 427 Seg Neutrophils % 80.9 H Sodium 131.8 L Potassium 4.5 Chloride 94 L Carbon Dioxide 23 Anion Gap 15 BUN 22 H Creatinine 2.13 H Est GFR ( Amer) 39 L Glucose 89 Calcium 10.0 Total Bilirubin 1.1 AST 29 Alkaline Phosphatase 153 H Total Protein 8.2 Albumin 4.4 03/31/20 03/31/20 03/31/20 11:02 11:02 14:29 Creatine Kinase 39 L CK-MB (CK-2) 1.71 Troponin I 0.016 0.015 NT-Pro-B Natriuret Pep 75598 H Impressions: Chest X-Ray 03/31/20 10:56 IMPRESSION: Right lower lobe pneumonia. Chest/Abdomen CTA 03/31/20 10:57 IMPRESSION: No PE. Chronic right pleural effusion with suspected loculated component. Chronic consolidation in the right lower lobe, atelectasis versus pneumonia. Assessment and Plan - Diagnosis (1) Atrial fibrillation Qualifiers: Atrial fibrillation type: unspecified Qualified Code(s): I48.91 - Unspecified atrial fibrillation Is this a current diagnosis for this admission?: Yes Plan: Likely intermittently exacerbated due to recurrent pleural effusions Continue home metoprolol which patient states he is not actually allergic to Still uncontrolled, consider diltiazem drip low-dose and titrate up to target heart rate less than 110 as BP allows Echocardiogram Cardiology consulted, patient follows with Dr. Shields (2) CHF exacerbation Qualifiers: Heart failure type: unspecified Qualified Code(s): I50.9 - Heart failure, unspecified Is this a current diagnosis for this admission?: Yes Plan: Likely due to uncontrolled A. fib when patient stopped taking his medications IV Lasix twice daily Continue home cardiac medications May benefit from home health half-way to ensure medication compliance (3) Bilateral pleural effusion Is this a current diagnosis for this admission?: Yes Plan: Thoracentesis ordered Repeat INR in a.m., INR is already practically normal at 1.5 which shows patient probably is not taking his Coumadin at all Hold Coumadin and subcutaneous heparin until thoracentesis done Follow-up thoracentesis fluid analysis results IV Lasix Per my discussion with other physicians or care for this patient in the past, he apparently responds well to BiPAP if his heart rate becomes elevated and uncontrolled (4) COPD (chronic obstructive pulmonary disease) Qualifiers: COPD type: unspecified COPD Qualified Code(s): J44.9 - Chronic obstructive pulmonary disease, unspecified Is this a current diagnosis for this admission?: Yes Plan: Former smoker Continue home medications As needed duo nebronnie (5) ESRD (end stage renal disease) on dialysis Is this a current diagnosis for this admission?: Yes Plan: Nephrology consulted on admission to manage dialysis needs Patient still makes urine and we will utilize his kidney function to diurese him (6) Patient noncompliance Is this a current diagnosis for this admission?: Yes Plan: Frequently stops taking his medications and this seems to coincide with when he comes back to the hospital Counseled on medication compliance (7) Respiratory failure with hypoxia Qualifiers: Chronicity: acute Qualified Code(s): J96.01 - Acute respiratory failure with hypoxia Is this a current diagnosis for this admission?: Yes Plan: Due to volume overload as above Dialysis and diuresis along with thoracentesis (8) Tachy-barry syndrome Is this a current diagnosis for this admission?: Yes - Time Time Spent with patient: 35 or more minutes Medications reviewed and adjusted accordingly: Yes Anticipated discharge: Home with Homehealth - Inpatient Certification Based on my medical assessment, after consideration of the patient's comorbidities, presenting symptoms, or acuity I expect that the services needed warrant INPATIENT care.: Yes I certify that my determination is in accordance with my understanding of Medicare's requirements for reasonable and necessary INPATIENT services [42 CFR 412.3e].: Yes Medical Necessity: Significant Comorbidiites Make Outpatient Treatment Too Risky, Need Close Monitoring Due to Risk of Patient Decompensation, Risk of Complication if Not Cared For in Hospital, Risk of Diagnosis Which Will Require Inpatient Eval/Care/Monitoring
--- NOTE | 2020-03-31 16:57 | ADVANCED CARE ---
- Diagnosis (1) Atrial fibrillation Diagnosis Current: Yes (2) CHF exacerbation Diagnosis Current: Yes (3) Bilateral pleural effusion Diagnosis Current: Yes (4) COPD (chronic obstructive pulmonary disease) Diagnosis Current: Yes (5) ESRD (end stage renal disease) on dialysis Diagnosis Current: Yes (6) Patient noncompliance Diagnosis Current: Yes (7) Respiratory failure with hypoxia Diagnosis Current: Yes (8) Tachy-barry syndrome Diagnosis Current: Yes Attendance: Patient Resuscitation Status: Full Code Discussion: All aspects of code status discussed with patient/POA including cardioversion, chest compressions, and intubation and the patient/POA indicated they wish to be full code. MPOA is designated as: rupa Sykes Time Spent: 17 minutes
[2020-03-31] MEDS: METOPROLOL TARTRATE 50 MG TABLET PO SCH ×2 (17:15→22:50)
[2020-03-31] MEDS: MIDODRINE HCL 5 MG TABLET PO SCH (17:15)
[2020-03-31 17:59] LABS: ANION GAP 12 (5-19); BLOOD UREA NITROGEN 22 mg/dL (7-20); CALCIUM 9.5 mg/dL (8.4-10.2); CARBON DIOXIDE 25 mmol/L (22-30); CHLORIDE 94 mmol/L (98-107); GLUCOSE 99 mg/dL (75-110)
[2020-03-31] MEDS ORDERED: DILTIAZEM HCL/D5W 125 MG/125 ML RTUINJ IV PRN (18:37)
--- NOTE | 2020-03-31 21:33 | XCELERA REPORT ---
[address] [address] Transthoracic Echocardiogram Report Name: SHAHRZAD JAIN Age: 59 yrs Gender: Male : 1960 Patient Status: Inpatient Patient Location: [address] [place] [address] Study Date: 03/31/2020 07:27 PM History: MVR CHF Atrial fibrillation Height: 63 in Weight: 126 lb BSA: 1.6 m2 Procedure: A complete two-dimensional transthoracic echocardiogram was performed (2D, M-mode, spectral and color flow Doppler). The study was technically difficult with many images being suboptimal in quality. Reason For Study: recent valve replacement Previous Evaluation: A previous study was performed on 03/15/2020. Ordering Physician: ARMAND STEVENS Performed By: Mey Harper Interpretation Summary Due to the poor quality of the echocardiogram, an assessment of left ventricular ejection fraction cannot be made. Best estimate is 40-45%. The right ventricular systolic function is mild to moderately reduced. There is a mechanical mitral valve. There is no aortic valve stenosis There is a mild to moderate amount of tricuspid regurgitation There is mild pulmonary hypertension by echo There is no pericardial effusion. MMode/2D Measurements & Calculations RVDd: 2.8 cm LVIDd: 4.3 cm FS: 17.5 % Ao root diam: 2.8 cm IVSd: 0.98 cm LVIDs: 3.6 cm EDV(Teich): 85.2 ml Ao root area: 6.1 cm2 LVPWd: 0.96 cm ESV(Teich): 53.9 ml LA dimension: 3.9 cm EF(Teich): 36.7 % Doppler Measurements & Calculations MV E max julián: MV dec time: PA V2 max: TR max julián: 123.4 cm/sec 0.18 sec 52.9 cm/sec 279.6 cm/sec PA max PG: TR max P.3 mmHg 1.1 mmHg Left Ventricle The left ventricle is grossly normal size. There is mild concentric left ventricular hypertrophy. Due to the poor quality of the echocardiogram, an assessment of left ventricular ejection fraction cannot be made. Best estimate is 40-45%. Right Ventricle The right ventricle is mild to moderately dilated. Echogenic mass in RV septum towards apex( consistent with history of leadless pacemaker). The right ventricular systolic function is mild to moderately reduced. Atria The right atrium is normal. The left atrium is mildly dilated. Mitral Valve There is a mechanical mitral valve. Cannot assess the presence or severity of regurgitation due to shielding from the prosthesis. Aortic Valve The aortic valve opens well. The aortic valve is not well visualized secondary to technical limitations. There is no aortic valve stenosis. Tricuspid Valve The tricuspid valve is not well visualized, but is grossly normal. There is a mild to moderate amount of tricuspid regurgitation. Right ventricular systolic pressure is estimated to be elevated at 30-40mmHg. There is mild pulmonary hypertension by echo. Pulmonic Valve The pulmonic valve is not well visualized. Great Vessels The aortic root is normal size. The inferior vena cava appeared normal and decreased < 50% with respiration (RAP 10-15 mmHg). Effusions There is no pericardial effusion. Incidental Findings Ascites noted Echogenic lesion noted in liver. : ARMAND STEVENS Anil
--- NOTE | 2020-03-31 21:35 | EKG REPORT ---
SEVERITY:- ABNORMAL ECG - SINUS TACHYCARDIA WITH IRREGULAR RATE 89-165 ,DURING THIS STRIP THE VR WAS 110/MIN LEFT ANTERIOR FASCICULAR BLOCK ANTERIOR INFARCT, AGE INDETERMINATE : Confirmed by: Dandy Pickard MD 31-Mar-2020 21:34:51
[2020-03-31] MEDS: FUROSEMIDE INJ/PF 20 MG/2 ML SDV IV SCH (22:49)
[2020-04-01 04:36] LABS: PHOSPHORUS 5.3 mg/dL (2.5-4.5)
[2020-04-01 04:37] LABS: INTERNATIONAL RATION (INR) 1.49; PROTHROMBIN TIME 18.1 SEC (11.4-15.4)
[2020-04-01 04:41] LABS: ABSOLUTE BASOPHILS # (AUTO) 0.2 10^3/uL (0.0-0.2); ABSOLUTE EOSINOPHILS # (AUTO) 0.2 10^3/uL (0.0-0.6); ABSOLUTE LYMPHOCYTES (AUTO) 1.2 10^3/uL (0.5-4.7); ABSOLUTE MONOCYTES (AUTO) 0.6 10^3/uL (0.1-1.4); EOSINOPHILS % (AUTO) 2.8 % (0-6); HEMATOCRIT 37.6 % (37.9-51.0); HEMOGLOBIN 12.6 g/dL (13.5-17.0); LYMPHOCYTES % (AUTO) 14.8 % (13-45); MEAN CORPUSCULAR HEMOGLOBIN 29.5 pg (27.0-33.4); MEAN CORPUSCULAR HGB CONC 33.5 g/dL (32.0-36.0); MEAN CORPUSCULAR VOLUME 88 fl (80-97); MONOCYTES % (AUTO) 7.5 % (3-13); PLATELET COUNT 423 10^3/uL (150-450); RED BLOOD COUNT 4.27 10^6/uL (4.35-5.55); RED CELL DISTRIBUTION WIDTH 16.9 % (11.5-14.0); SEGMENTED NEUTROPHILS % (AUTO) 72.9 % (42-78); TOTAL CELLS COUNTED % (AUTO) 100 %; WHITE BLOOD COUNT 8.2 10^3/uL (4.0-10.5)
[2020-04-01] MEDS ORDERED: NORMAL SALINE 1000 ML 1,000 ML IV PRN (05:00)
[2020-04-01] MEDS ORDERED: HEPARIN SOD (PORCINE) 1,000 UNIT/ML 10 ML VIAL IV PRN (05:00)
[2020-04-01 07:26] LABS: ANION GAP 11 (5-19); BLOOD UREA NITROGEN 25 mg/dL (7-20); CALCIUM 9.6 mg/dL (8.4-10.2); CARBON DIOXIDE 25 mmol/L (22-30); CHLORIDE 95 mmol/L (98-107); GLUCOSE 86 mg/dL (75-110); POTASSIUM 4.3 mmol/L (3.6-5.0)
[2020-04-01 09:29] LABS: FREE T3 1.72 pg/mL (2.77-5.27); FREE T4 (FREE THYROXINE) 1.6 ng/dL (0.78-2.19)
[2020-04-01] MEDS ORDERED: MIDODRINE HCL 5 MG TABLET PO ONE (10:47)
--- NOTE | 2020-04-01 14:03 | PDOC CONSULTATION ---
Consultation Consult Date: 04/01/20 Provider Consulted: BRIANDA GREEN Consult reason:: ESRD needing HD History of Present Illness Admission Date/PCP: 03/31/20 16:06 History of Present Illness: SHAHRZAD JAIN is a 59 year old gentleman known to me with history of initial acute kidney injury and led to end-stage renal disease requiring hemodialysis treatment, also had a complicated course of mitral valve replacement due to mitral stenosis at [facility] requiring hospitalization for about 4 months complicated by a PEA cardiac arrest, atrial fibrillation and acute tubular necrosis. Patient was just recently discharged from the hospital couple weeks ago and he continues to do his dialysis now twice a week due to some partial recovery of kidney function with the last 24-hour creatinine clearance of 15 mL/min done here in the hospital. His last dialysis was last Saturday. Patient presented in the emergency room yesterday with progressively increasing shortness of breath for the past 3 days associated with fatigue, and weakness. He denies any chest pains, cough, fever, nausea, vomiting or diarrhea. He continues to have minimal lower extremity edema. He said he is eating fairly. Initial work-up in the emergency room with chest x-ray and CT scan of the chest shows significant reaccumulation of his right pleural effusion for which she had right thoracentesis during last admission as well as right lower lobe consolidation consistent with pneumonia. Patient was admitted for further management. An echocardiogram was also done which showed LVEF of 40 to 45% with right ventricular ejection fraction being moderately reduced as well, presence of mechanical mitral valve and mild pulmonary hypertension. I am seeing the patient this morning during hemodialysis treatment in the ICU because the patient has been started also on Cardizem drip for his atrial fibrillation. His blood pressure is on the low side which it has always been despite the midodrine. Patient will be monitored very cautiously and closely to see if we can even do ultrafiltration. If blood pressure continues to be low we will probably for goal of ultrafiltration and just do solute clearance for the days dialysis. Past Medical History Cardiac Medical History: Reports: Atrial Fibrillation, Hypertension-primary, Pulmonary Hypertension, Valvular Heart disease - History of mitral stenosis Pulmonary Medical History: Reports: Chronic Obstructive Pulmonary Disease (COPD), Respiratory Failure Neurological Medical History: Reports: Seizures - LAST 5 YR AGO Renal/ Medical History: Reports: End Stage Renal Disease Hematology Medical History: Reports Anemia Past Surgical History Past Surgical History: Reports: Orthopedic Surgery - hip, arm, Valve Replacement - Mechanical mitral valve replacement, October 2019 Social History Information Source: Patient, [facility] Records Lives with: Family Smoking Status: Former Smoker Electronic Cigarette use?: No Frequency of Alcohol Use: Rare Hx Recreational Drug Use: No Drugs: None Hx Prescription Drug Abuse: No - Advance Directive Resuscitation Status: Full Code Family History Family History: Reviewed & Not Pertinent Parental Family History Reviewed: Yes Children Family History Reviewed: Yes Sibling(s) Family History Reviewed.: Yes Medication/Allergy Home Medications: Fluticasone Propionate [Flonase Nasal [place] 50 Mcg/[place] 16 gm] 2 spray NASL DAILY 03/14/20 Furosemide [Lasix 40 mg Tablet] 40 mg PO DAILY 03/14/20 Hydroxyzine HCl [Atarax 10 mg Tablet] 50 mg PO QHS 03/14/20 Oxycodone HCl [Oxy-Ir 5 mg Tablet] 5 mg PO Q6HP PRN 03/14/20 Polyethylene Glycol 3350 [Miralax Powder 17 gm/Packet] 1 packet PO DAILYP PRN 03/14/20 Ranitidine HCl [Zantac] 150 mg PO DAILY 03/14/20 Sennosides/Docusate Sodium [Senna Plus 8.6-50 mg Tablet] 2 tab PO BID 03/14/20 Trazodone HCl [Desyrel 50 mg Tablet] 50 mg PO QHS 03/14/20 Metoprolol Tartrate [Lopressor 50 mg Tablet] 50 mg PO Q12 30 Days #60 tablet 03/23/20 Midodrine HCl [Proamatine 5 mg Tablet] 2.5 mg PO BID 30 Days #60 tablet 03/23/20 Warfarin Sodium [Coumadin 2.5 mg Tablet] 2.5 mg PO QHS tablet 03/23/20 Allergies/Adverse Reactions: metoprolol tartrate [From Lopressor] Adverse Reaction (Verified 03/14/20 18:54) Generalized rash Review of Systems All systems: reviewed and no additional remarkable complaints except as stated Review of Systems: Constitutional: ABSENT: chills, fever(s), headache(s), weight gain, weight loss; admits weakness and fatigue Eyes: ABSENT: visual disturbances Ears: ABSENT: hearing changes Cardiovascular: ABSENT: chest pain, orthropnea, palpitations; admits dyspnea at rest and exertion and edema Respiratory: ABSENT: cough, dyspnea, hemoptysis Gastrointestinal: ABSENT: abdominal pain, constipation, diarrhea, hematemesis, hematochezia, nausea, vomiting Genitourinary: ABSENT: dysuria, hematuria Musculoskeletal: ABSENT: joint swelling Integumentary: ABSENT: rash, wounds Neurological: ABSENT: abnormal gait, abnormal speech, confusion, dizziness, focal weakness, numbness, syncope Psychiatric: ABSENT: anxiety, depression Endocrine: ABSENT: cold intolerance, heat intolerance, polydipsia, polyuria Hematologic/Lymphatic: ABSENT: easy bleeding, easy bruising, lymphadenopathy Physical Exam Vital Signs: Temp Pulse Resp BP Pulse Ox 97.2 F 106 H 18 88/64 L 100 04/01/20 04:08 04/01/20 06:00 04/01/20 04:08 04/01/20 07:54 04/01/20 04:08 Intake & Output 03/31/20 04/01/20 04/02/20 06:59 06:59 06:59 Intake Total 686 Output Total 600 Balance 86 Weight 53.5 kg Vitals during dialysis: Blood pressure 98/75, heart rate of 97, respiratory rate of 14, oxygen saturation of 96%, blood flow rate of 350 mL/min and dialysate flow rate of 800 mL/min. Exam: General appearance: No acute distress, cooperative, well-developed, well- nourished Head exam: PRESENT: atraumatic, normocephalic Eye exam: PRESENT: Conjunctiva [place], EOMI, PERRLA. ABSENT: conjunctival injection, scleral icterus Mouth exam: PRESENT: moist, neck supple, tongue midline Neck exam: PRESENT: full ROM. ABSENT: carotid bruit, JVD, lymphadenopathy, thyromegaly Respiratory exam: PRESENT: Diminished to auscultation bilaterally. ABSENT: rales, rhonchi, stridor, wheezes Cardiovascular exam: PRESENT: Irregularly irregular, +S1, +S2. ABSENT: systolic murmur Pulses: PRESENT: normal radial pulses, normal dorsalis pedis pulses GI/Abdominal exam: PRESENT: normal bowel sounds, soft. ABSENT: guarding, mass, tenderness Rectal exam: Deferred Extremities exam: PRESENT: full ROM. Trace bilateral lower extremity edema right greater than the left ABSENT: calf tenderness Musculoskeletal: PRESENT: full ROM. ABSENT: deformity Neurological exam: PRESENT: alert, Awake, Oriented to person, Oriented to place, Oriented to time, reflexes normal, CN II-XII grossly intact. ABSENT: motor sensory deficit Psychiatric exam: PRESENT: appropriate affect, normal mood. ABSENT: homicidal ideation, suicidal ideation Skin exam: PRESENT: intact, dry, warm. ABSENT: rash Results Laboratory Results: 04/01/20 04:09 04/01/20 04:09 03/31/20 03/31/20 03/31/20 11:02 11:02 17:25 WBC 9.6 RBC 4.70 Hgb 13.8 Hct 41.0 MCV 87 MCH 29.3 MCHC 33.6 RDW 17.1 H Plt Count 427 Seg Neutrophils % 80.9 H Sodium 131.8 L Potassium 4.5 Chloride 94 L Carbon Dioxide 23 Anion Gap 15 BUN 22 H Creatinine 2.13 H Est GFR ( Amer) 39 L Glucose 89 Calcium 10.0 Phosphorus Magnesium Total Bilirubin 1.1 AST 29 Alkaline Phosphatase 153 H Total Protein 8.2 7.3 Albumin 4.4 TSH Free T4 Free T3 pg/mL 03/31/20 04/01/20 04/01/20 17:25 04:09 04:09 WBC 8.2 RBC 4.27 L Hgb 12.6 L Hct 37.6 L MCV 88 MCH 29.5 MCHC 33.5 RDW 16.9 H Plt Count 423 Seg Neutrophils % 72.9 Sodium 130.7 L Potassium 4.0 Chloride 94 L Carbon Dioxide 25 Anion Gap 12 BUN 22 H Creatinine 2.12 H Est GFR ( Amer) 39 L Glucose 99 Calcium 9.5 Phosphorus 5.3 H Magnesium 2.1 Total Bilirubin AST Alkaline Phosphatase Total Protein Albumin TSH Free T4 Free T3 pg/mL 04/01/20 04/01/20 04/01/20 04:09 04:09 04:09 WBC RBC Hgb Hct MCV MCH MCHC RDW Plt Count Seg Neutrophils % Sodium 130.9 L Potassium 4.3 Chloride 95 L Carbon Dioxide 25 Anion Gap 11 BUN 25 H Creatinine 2.41 H Est GFR ( Amer) 34 L Glucose 86 Calcium 9.6 Phosphorus Magnesium Total Bilirubin AST Alkaline Phosphatase Total Protein Albumin TSH 6.67 H Free T4 1.60 Free T3 pg/mL 1.72 L 03/31/20 03/31/20 03/31/20 11:02 11:02 14:29 Creatine Kinase 39 L CK-MB (CK-2) 1.71 Troponin I 0.016 0.015 NT-Pro-B Natriuret Pep [id number] H Impressions: Chest X-Ray 03/31/20 10:56 IMPRESSION: Right lower lobe pneumonia. Chest/Abdomen CTA 03/31/20 10:57 IMPRESSION: No PE. Chronic right pleural effusion with suspected loculated component. Chronic consolidation in the right lower lobe, atelectasis versus pneumonia. Assessment & Plan - Diagnosis (1) ESRD (end stage renal disease) on dialysis Is this a current diagnosis for this admission?: Yes Plan: We will do dialysis today for 2.5 hours, using the patient's PermCath, with 2 potassium bath, blood flow rate of 350 mL per minute, dialysate flow rate of 800 mL per minute, ultrafiltration 0 to 0.5 L as tolerated, no heparin and no Procrit. Patient is being closely monitored throughout dialysis treatment and ultrafiltration being adjusted accordingly. We will continue hemodialysis twice a week while here in the hospital. (2) Pleural effusion Is this a current diagnosis for this admission?: Yes Plan: Patient scheduled for right thoracentesis after dialysis today. (3) Pneumonia Qualifiers: Pneumonia type: due to unspecified organism Laterality: right Lung location: lower lobe of lung Qualified Code(s): J18.9 - Pneumonia, unspecified organism Is this a current diagnosis for this admission?: Yes Plan: Management per hospitalist service. (4) Atrial fibrillation Qualifiers: Atrial fibrillation type: unspecified Qualified Code(s): I48.91 - Unspecified atrial fibrillation Is this a current diagnosis for this admission?: Yes Plan: Currently on Cardizem drip. (5) Hyponatremia Is this a current diagnosis for this admission?: Yes Plan: Mild and stable. Likely due to hypervolemic state. - Notes Notes: Thank you very much for this consultation. - Time Time Spent: 50 to 70 Minutes
--- NOTE | 2020-04-01 14:09 | RADIOLOGY REPORT (SQ) ---
EXAM DESCRIPTION: U/S THORACENTESIS WITH IMAGING IMAGES COMPLETED DATE/TIME: 04/01/2020 1:58 pm REASON FOR STUDY: bilat pleural effusions, loculated pleural effusin COMPARISON: 03/18/2020 RADIATION DOSE: None. LIMITATIONS: None. PROCEDURE: Procedure, risks, benefit, and alternative explained to patient who then gave written con sent. The right posterior chest wall was marked using ultrasound guidance. A time-out was called fo r correct marking verification. Chest prepped and draped using sterile technique. Local anesthesia a chieved using 10 ml of 1% lidocaine injection. A 6fr Safe-T- Centesis set was introduced into the ri t pleural space. Fluid was aspirated. The catheter was removed and the entry site was covered wit h sterile bandage. No immediate complications noted. Images acquired during the procedure were stored on PACS. FINDINGS: ENTRY SITE: posterior right chest. FLUID VOLUME: 1100 mL FLUID ANALYSIS: Clear, straw-colored OTHER: Fluid sent to the lab for testing. IMPRESSION: SUCCESSFUL THORACENTESIS USING ULTRASOUND GUIDANCE. COMMENT: Patient medication list reviewed: Yes- Quality ID# [id number]:Eligible professional attests to doc umenting in the medical record they obtained, updated, or reviewed the patient's current medications. TECHNICAL DOCUMENTATION: JOB ID: [id number] 2010 [employer]- All Rights Reserved Reading location - IP/workstation name: [email or web address]
--- NOTE | 2020-04-01 14:33 | RADIOLOGY REPORT (SQ) ---
EXAM DESCRIPTION: CHEST SINGLE VIEW IMAGES COMPLETED DATE/TIME: 04/01/2020 2:19 pm REASON FOR STUDY: post thoracentesis COMPARISON: 03/31/2020 EXAM PARAMETERS: NUMBER OF VIEWS: One view. TECHNIQUE: Single frontal radiographic view of the chest acquired. RADIATION DOSE: NA LIMITATIONS: None. FINDINGS: LUNGS AND PLEURA: No pneumothorax following right-sided thoracentesis. Right-sided pleura l effusion is significantly smaller. Persistent right basilar airspace disease. MEDIASTINUM AND HILAR STRUCTURES: No masses. Contour normal. HEART AND VASCULAR STRUCTURES: Heart normal in size. Normal vasculature. BONES: No acute findings. HARDWARE: Unchanged. OTHER: No other significant finding. IMPRESSION: No pneumothorax following right-sided thoracentesis. TECHNICAL DOCUMENTATION: JOB ID: [id number] 2010 [employer]- All Rights Reserved Reading location - IP/workstation name: [email or web address]
[2020-04-01] MEDS: DOCUSATE SODIUM 100 MG/10 ML UDC PO SCH (14:40)
[2020-04-01] MEDS: METOPROLOL TARTRATE 50 MG TABLET PO SCH ×2 (14:42→22:01)
[2020-04-01] MEDS: MIDODRINE HCL 5 MG TABLET PO SCH ×3 (14:42→18:33)
[2020-04-01 14:49] LABS: FLUID TYPE PLEURAL
[2020-04-01 14:50] LABS: FLUID APPEARANCE CLEAR; FLUID COLOR YELLOW; FLUID SOURCE LUNG; FLUID VISCOSITY LIQUID
[2020-04-01] MEDS ORDERED: METOPROLOL TARTRATE PF/INJ 5 MG/5 ML SDV IV PRN (15:02)
--- NOTE | 2020-04-01 15:09 | PDOC PROGRESS REPORT ---
Subjective Progress Note for:: 04/01/20 Subjective:: Patient got hypotensive this morning during dialysis. Had to be given fluid back. Given extra dose of midodrine. Patient stated that he had some shortness of breath but otherwise seemed very comfortable. Patient does not know if he has been taking his warfarin at home. States he takes a couple of pills. Reason For Visit: CHF EXACEATRIAL FIBRILLATION,BILATERAL PLEURAL Physical Exam Vital Signs: Temp Pulse Resp BP Pulse Ox 97.2 F 99 18 88/64 L 99 04/01/20 04:08 04/01/20 12:20 04/01/20 12:20 04/01/20 07:54 04/01/20 12:20 Intake & Output 03/31/20 04/01/20 04/02/20 06:59 06:59 06:59 Intake Total 686 476 Output Total 600 0 Balance 86 476 Weight 53.5 kg General appearance: PRESENT: no acute distress, cooperative Neck exam: ABSENT: JVD Respiratory exam: PRESENT: decreased breath sounds, unlabored. ABSENT: tachypnea, wheezes Cardiovascular exam: PRESENT: irregular rhythm, +S1, +S2, other - Mechanical valve sound in apex. ABSENT: tachycardia GI/Abdominal exam: PRESENT: soft. ABSENT: rebound, rigid, tenderness Neurological exam: PRESENT: alert, awake, oriented to person, oriented to place, oriented to time Results Laboratory Results: 04/01/20 04:09 04/01/20 04:09 03/31/20 03/31/20 04/01/20 17:25 17:25 04:09 WBC 8.2 RBC 4.27 L Hgb 12.6 L Hct 37.6 L MCV 88 MCH 29.5 MCHC 33.5 RDW 16.9 H Plt Count 423 Seg Neutrophils % 72.9 Sodium 130.7 L Potassium 4.0 Chloride 94 L Carbon Dioxide 25 Anion Gap 12 BUN 22 H Creatinine 2.12 H Est GFR ( Amer) 39 L Glucose 99 Calcium 9.5 Phosphorus Magnesium Total Protein 7.3 TSH Free T4 Free T3 pg/mL 04/01/20 04/01/20 04/01/20 04:09 04:09 04:09 WBC RBC Hgb Hct MCV MCH MCHC RDW Plt Count Seg Neutrophils % Sodium 130.9 L Potassium 4.3 Chloride 95 L Carbon Dioxide 25 Anion Gap 11 BUN 25 H Creatinine 2.41 H Est GFR ( Amer) 34 L Glucose 86 Calcium 9.6 Phosphorus 5.3 H Magnesium 2.1 Total Protein TSH 6.67 H Free T4 Free T3 pg/mL 04/01/20 04:09 WBC RBC Hgb Hct MCV MCH MCHC RDW Plt Count Seg Neutrophils % Sodium Potassium Chloride Carbon Dioxide Anion Gap BUN Creatinine Est GFR ( Amer) Glucose Calcium Phosphorus Magnesium Total Protein TSH Free T4 1.60 Free T3 pg/mL 1.72 L 03/31/20 03/31/20 03/31/20 11:02 11:02 14:29 Creatine Kinase 39 L CK-MB (CK-2) 1.71 Troponin I 0.016 0.015 NT-Pro-B Natriuret Pep [id number] H Impressions: Chest/Abdomen CTA 03/31/20 10:57 IMPRESSION: No PE. Chronic right pleural effusion with suspected loculated component. Chronic consolidation in the right lower lobe, atelectasis versus pneumonia. Chest X-Ray 04/01/20 13:26 IMPRESSION: No pneumothorax following right-sided thoracentesis. Thoracentesis Ultrasound 04/01/20 16:26 IMPRESSION: SUCCESSFUL THORACENTESIS USING ULTRASOUND GUIDANCE. Assessment and Plan - Diagnosis (1) Persistent atrial fibrillation with rapid ventricular response Is this a current diagnosis for this admission?: Yes Plan: Lopressor 50 mg every 12 hours. Discontinued diltiazem drip this morning due to hypotension. Will manage with IV pushes of Lopressor. Keep on telemetry. (2) Pleural effusion Is this a current diagnosis for this admission?: Yes Plan: Seems to have recalculated right-sided pleural effusion. Now moderate level. Thoracentesis on last admission yielded transudate fluid. Possible contributing factor could be chronic diastolic heart failure. Also noncompliant with medications. Blood pressure was soft limiting the amount of fluid to be removed during dialysis. Will keep on Lasix daily. Thoracentesis performed today. (3) CKD (chronic kidney disease) requiring chronic dialysis Is this a current diagnosis for this admission?: Yes Plan: Nephrology consulted for management of dialysis. (4) Respiratory failure with hypoxia Qualifiers: Chronicity: acute Qualified Code(s): J96.01 - Acute respiratory failure with hypoxia Is this a current diagnosis for this admission?: Yes Plan: Likely secondary to pleural effusion. Will wean off oxygen as tolerated. Incentive spirometer. (5) Hypotension Qualifiers: Hypotension type: idiopathic hypotension Qualified Code(s): I95.0 - Idiopathic hypotension Is this a current diagnosis for this admission?: Yes Plan: Idiopathic. Not septic. No evidence of cardiogenic shock. Hypovolemia is unlikely. Fluid given back after removal during dialysis today. Continue Midodrine. Dose increased. Will check a.m. cortisol. (6) H/O mitral valve replacement with mechanical valve Is this a current diagnosis for this admission?: Yes Plan: Subtherapeutic INR. Goal INR of 2.5-3.5 given mechanical valve and A. fib. Will restart on Coumadin tonight. I suspect noncompliance as patient does not know if he took his warfarin or not. Heparin bridge required which will also be started tonight. (7) COPD (chronic obstructive pulmonary disease) Qualifiers: COPD type: unspecified COPD Qualified Code(s): J44.9 - Chronic obstructive pulmonary disease, unspecified Is this a current diagnosis for this admission?: Yes Plan: Stable. Nebs as needed. - Time Time Spent with patient: 15-24 minutes
[2020-04-01] MEDS: FUROSEMIDE INJ/PF 20 MG/2 ML SDV IV SCH (15:51)
[2020-04-01 16:03] LABS: HEMATOCRIT 37.2 % (37.9-51.0); HEMOGLOBIN 12.3 g/dL (13.5-17.0); MEAN CORPUSCULAR HEMOGLOBIN 28.9 pg (27.0-33.4); MEAN CORPUSCULAR HGB CONC 33.1 g/dL (32.0-36.0); MEAN CORPUSCULAR VOLUME 87 fl (80-97); PLATELET COUNT 329 10^3/uL (150-450); RED BLOOD COUNT 4.25 10^6/uL (4.35-5.55); RED CELL DISTRIBUTION WIDTH 17.4 % (11.5-14.0); WHITE BLOOD COUNT 7.5 10^3/uL (4.0-10.5)
--- NOTE | 2020-04-01 16:03 | RADIOLOGY REPORT (SQ) ---
EXAM DESCRIPTION: CHEST SINGLE VIEW IMAGES COMPLETED DATE/TIME: 04/01/2020 3:35 pm REASON FOR STUDY: 2 hours post thoracentesis COMPARISON: Earlier the same day. EXAM PARAMETERS: NUMBER OF VIEWS: One view. TECHNIQUE: Single frontal radiographic view of the chest acquired. RADIATION DOSE: NA LIMITATIONS: None. FINDINGS: LUNGS AND PLEURA: No pneumothorax 2 hours following right-sided thoracentesis. MEDIASTINUM AND HILAR STRUCTURES: No masses. Contour normal. HEART AND VASCULAR STRUCTURES: Heart normal in size. Normal vasculature. BONES: No acute findings. HARDWARE: Unchanged. OTHER: No other significant finding. IMPRESSION: No pneumothorax 2 hours following right-sided thoracentesis. TECHNICAL DOCUMENTATION: JOB ID: [id number] 2010 [employer]- All Rights Reserved Reading location - IP/workstation name: [email or web address]
[2020-04-01 16:13] LABS: ANION GAP 8 (5-19); BLOOD UREA NITROGEN 16 mg/dL (7-20); CALCIUM 8.8 mg/dL (8.4-10.2); CARBON DIOXIDE 27 mmol/L (22-30); CHLORIDE 98 mmol/L (98-107); GLUCOSE 108 mg/dL (75-110); POTASSIUM 3.8 mmol/L (3.6-5.0)
[2020-04-01 16:30] LABS: ABSOLUTE LYMPHOCYTES# (MANUAL) 0.7 10^3/uL (0.5-4.7); ABSOLUTE MONOCYTES # (MANUAL) 0.6 10^3/uL (0.1-1.4); BAND NEUTROPHILS % (MANUAL) 1 % (3-5); BASOPHILS % (MANUAL) 0 % (0-2); EOSINOPHILS % (MANUAL) 2 % (0-6); LYMPHOCYTES % (MANUAL) 9 % (13-45); MONOCYTES % (MANUAL) 8 % (3-13); SEGMENTED NEUTROPHILS % (MAN) 80 % (42-78); TOTAL CELLS COUNTED 100
[2020-04-01 16:31] LABS: HYPERSEGMENTED NEUTROPHILS PRESENT
[2020-04-01 16:32] LABS: POLYCHROMASIA SLIGHT
[2020-04-01 16:37] LABS: BURR CELLS SLIGHT; SCHISTOCYTES SLIGHT; TARGET CELLS SLIGHT
[2020-04-01 16:38] LABS: ANISOCYTOSIS 1+; PLATELET COMMENT ADEQUATE
[2020-04-01] MEDS ORDERED: WARFARIN SODIUM 2.5 MG TABLET PO SCH (22:00)
[2020-04-01] MEDS: TRAZODONE HCL 50 MG TABLET PO SCH (22:01)
[2020-04-01] MEDS: OXYCODONE HCL IR 5 MG TABLET PO PRN (22:33)
--- NOTE | 2020-04-02 01:41 | CDI QUERY ---
CDI Query CDI Review: Dear Provider: To better reflect your patients severity of illness, morbidity, and resource utilization Please specify and document in the Progress Notes and Discharge Summary if you are monitoring / treating / evaluating any of the following conditions: Query Clinical indicators Please clarify CHF: Acute on chronic diastolic CHF Chronic diastolic CHF Acute on chronic combined systolic / diastolic CHF Unable to determine Other Per H&P: CHF exacerbation Qualifiers: Heart failure type: unspecified Qualified Code(s): I50.9 - Heart failure, unspecified Likely due to uncontrolled A. fib when patient stopped taking his medications BNP 29024 Per Progress Notes: Pleural effusion Seems to have recalculated right-sided pleural effusion. Now moderate level. Thoracentesis on last admission yielded transudate fluid. Possible contributing factor could be chronic diastolic heart failure. The terms probable, suspected, likely, possible or still to be ruled out may be used if you are unable to determine the exact nature of a condition. Thank you for your consideration, Clinical Documentation Physician Advisors ALIDA De La Cruz RN, BSN RN Office [phone] Office [phone]
[2020-04-02 06:15] LABS: ABSOLUTE BASOPHILS # (AUTO) 0.1 10^3/uL (0.0-0.2); ABSOLUTE EOSINOPHILS # (AUTO) 0.1 10^3/uL (0.0-0.6); ABSOLUTE LYMPHOCYTES (AUTO) 0.9 10^3/uL (0.5-4.7); ABSOLUTE MONOCYTES (AUTO) 0.6 10^3/uL (0.1-1.4); ABSOLUTE NEUT (AUTO) 4.7 10^3/uL (1.7-8.2); BASOPHILS % (AUTO) 1.9 % (0-2); EOSINOPHILS % (AUTO) 1.7 % (0-6); HEMATOCRIT 37.1 % (37.9-51.0); HEMOGLOBIN 12.2 g/dL (13.5-17.0); LYMPHOCYTES % (AUTO) 14.3 % (13-45); MEAN CORPUSCULAR HGB CONC 32.8 g/dL (32.0-36.0); MEAN CORPUSCULAR VOLUME 89 fl (80-97); MONOCYTES % (AUTO) 8.6 % (3-13); PLATELET COUNT 278 10^3/uL (150-450); RED BLOOD COUNT 4.19 10^6/uL (4.35-5.55); RED CELL DISTRIBUTION WIDTH 17.7 % (11.5-14.0); SEGMENTED NEUTROPHILS % (AUTO) 73.5 % (42-78); TOTAL CELLS COUNTED % (AUTO) 100 %; WHITE BLOOD COUNT 6.5 10^3/uL (4.0-10.5)
[2020-04-02 06:22] LABS: PROTHROMBIN TIME 17.3 SEC (11.4-15.4)
[2020-04-02] MEDS ORDERED: FUROSEMIDE 40 MG TABLET PO SCH (10:00)
[2020-04-02] MEDS ORDERED: HEPARIN SOD (PORCINE) 5,000 UNIT/ML 1 ML VIAL SUBCUT SCH (10:00)
[2020-04-02] MEDS: MIDODRINE HCL 5 MG TABLET PO SCH ×3 (10:07→22:23)
[2020-04-02] MEDS: METOPROLOL TARTRATE 50 MG TABLET PO SCH ×2 (10:07→22:19)
[2020-04-02] MEDS: FLUTICASONE NASAL SPRAY 50 MCG/SPRY 120 SPRAY/16 GM NASL SCH (10:07)
[2020-04-02] MEDS: DOCUSATE SODIUM 100 MG/10 ML UDC PO SCH (10:08)
[2020-04-02] MEDS: HEPARIN SODIUM,PORCINE/D5W 25,000 UNIT/250 ML RTUINJ IV PRN (10:10)
[2020-04-02] MEDS: HEPARIN SOD (PORCINE) 1,000 UNIT/ML 10 ML VIAL IV PRN (10:10)
--- NOTE | 2020-04-02 11:51 | PDOC CONSULTATION ---
Consultation Consult Date: 04/02/20 Attending physician:: SALLIE OCAMPO Provider Consulted: ROLANDO CHENG Consult reason:: Atrial fibrillation History of Present Illness Admission Date/PCP: 03/31/20 16:06 Patient complains of: Weakness History of Present Illness: SHAHRZAD JAIN is a 59 year old male With complicated medical history. Active problems 1. End-stage renal disease on hemodialysis 2. Mechanical mitral valve 3. Systemic anticoagulation-warfarin 4. Leadless pacemaker-RV Patient was recently admitted to hospital on account of atrial fibrillation with rapid ventricular response. He was on rate control medications. He was started back on systemic anticoagulation. He resumed dialysis here in the hospital. He was discharged in stable condition to a rate control strategy. He presented back with similar presentation with atrial fibrillation. He required rate control measures again. This time he developed hypotension during dialysis which had to be aborted. Intravenous diltiazem was discontinued. Subsequently blood pressures improved. Past Medical History Cardiac Medical History: Reports: Atrial Fibrillation, Hypertension Pulmonary Medical History: Reports: Chronic Obstructive Pulmonary Disease (COPD), Respiratory Failure Denies: Tuberculosis Neurological Medical History: Reports: Seizures - LAST 5 YR AGO Renal/ Medical History: Reports: End Stage Renal Disease Psychiatric Medical History: Denies: Depression Hematology: Reports: Anemia Past Surgical History Past Surgical History: Reports: Orthopedic Surgery - hip, arm, Valve Replacement - Mechanical mitral valve replacement, October 2019, Other - Complicated mitral valve replacement for severe mitral stenosis? Denies: Pacemaker Social History Lives with: Family Smoking Status: Former Smoker Electronic Cigarette use?: No Frequency of Alcohol Use: Rare Hx Recreational Drug Use: No Drugs: None Hx Prescription Drug Abuse: No - Advance Directive Resuscitation Status: Full Code Family History Family History: Reviewed & Not Pertinent, CAD Parental Family History Reviewed: No - No familial illnesses no familial illnesses Children Family History Reviewed: NA Sibling(s) Family History Reviewed.: NA Medication/Allergy Home Medications: Fluticasone Propionate [Flonase Nasal [place] 50 Mcg/[place] 16 gm] 2 spray NASL DAILY 03/14/20 Furosemide [Lasix 40 mg Tablet] 40 mg PO DAILY 03/14/20 Hydroxyzine HCl [Atarax 10 mg Tablet] 50 mg PO QHS 03/14/20 Oxycodone HCl [Oxy-Ir 5 mg Tablet] 5 mg PO Q6HP PRN 03/14/20 Polyethylene Glycol 3350 [Miralax Powder 17 gm/Packet] 1 packet PO DAILYP PRN 03/14/20 Ranitidine HCl [Zantac] 150 mg PO DAILY 03/14/20 Sennosides/Docusate Sodium [Senna Plus 8.6-50 mg Tablet] 2 tab PO BID 03/14/20 Trazodone HCl [Desyrel 50 mg Tablet] 50 mg PO QHS 03/14/20 Metoprolol Tartrate [Lopressor 50 mg Tablet] 50 mg PO Q12 30 Days #60 tablet 03/23/20 Midodrine HCl [Proamatine 5 mg Tablet] 2.5 mg PO BID 30 Days #60 tablet 03/23/20 Warfarin Sodium [Coumadin 2.5 mg Tablet] 2.5 mg PO QHS tablet 03/23/20 Allergies/Adverse Reactions: metoprolol tartrate [From Lopressor] Adverse Reaction (Verified 03/14/20 18:54) Generalized rash Review of Systems Constitutional: PRESENT: as per HPI Eyes: PRESENT: as per HPI Ears: PRESENT: as per HPI Nose, Mouth, and Throat: PRESENT: as per HPI Cardiovascular: PRESENT: dyspnea on exertion Respiratory: PRESENT: cough, dyspnea Physical Exam Vital Signs: Temp Pulse Resp BP Pulse Ox 97.7 F 87 17 70/49 L 98 04/02/20 07:45 04/02/20 07:45 04/02/20 07:45 04/02/20 07:45 04/02/20 03:31 Intake & Output 04/01/20 04/02/20 04/03/20 06:59 06:59 06:59 Intake Total 686 1534 Output Total 600 0 Balance 86 1534 Weight 53.5 kg 54.8 kg General appearance: PRESENT: no acute distress, cooperative, thin Head exam: PRESENT: atraumatic, normocephalic Eye exam: PRESENT: conjunctiva pale, EOMI Mouth exam: PRESENT: moist Neck exam: PRESENT: JVD Respiratory exam: PRESENT: crackles, decreased breath sounds, prolonged expiratory phas, symmetrical, unlabored Cardiovascular exam: PRESENT: irregular rhythm, +S1, +S2 Pulses: PRESENT: normal radial pulses GI/Abdominal exam: PRESENT: soft Rectal exam: PRESENT: deferred Neurological exam: PRESENT: alert, awake, oriented to person, oriented to place, oriented to time Psychiatric exam: PRESENT: appropriate affect Skin exam: PRESENT: dry, intact Additional comments: Thoracotomy scar noted. Left chest wall permacath noted. Results Laboratory Results: 04/02/20 05:40 04/01/20 15:36 04/01/20 04/01/20 04/01/20 13:20 15:36 15:36 WBC 7.5 RBC 4.25 L Hgb 12.3 L Hct 37.2 L MCV 87 MCH 28.9 MCHC 33.1 RDW 17.4 H Plt Count 329 Seg Neutrophils % Not Reportable Sodium 133.0 L Potassium 3.8 Chloride 98 Carbon Dioxide 27 Anion Gap 8 BUN 16 Creatinine 1.57 H Est GFR ( Amer) 55 L Glucose 108 Calcium 8.8 Fluid Type PLEURAL Fluid Source LUNG Fluid Color YELLOW Fluid Appearance CLEAR Fluid Viscosity LIQUID Fluid WBC 50 Fluid RBC 335 04/02/20 05:40 WBC 6.5 RBC 4.19 L Hgb 12.2 L Hct 37.1 L MCV 89 MCH 29.0 MCHC 32.8 RDW 17.7 H Plt Count 278 Seg Neutrophils % 73.5 Sodium Potassium Chloride Carbon Dioxide Anion Gap BUN Creatinine Est GFR ( Amer) Glucose Calcium Fluid Type Fluid Source Fluid Color Fluid Appearance Fluid Viscosity Fluid WBC Fluid RBC 03/31/20 03/31/20 03/31/20 11:02 11:02 14:29 Creatine Kinase 39 L CK-MB (CK-2) 1.71 Troponin I 0.016 0.015 NT-Pro-B Natriuret Pep 61595 H EKG Comments: Twelve-lead EKG 03/31/2020. Independently reviewed by me. Probable atypical flutter, IVCD, ventricular rate is 144 bpm Transthoracic echocardiogram 03/31/2020 Technically difficult study Left ventricular ejection fraction was difficult to assess. Best estimate is 40 to 45% Mild to moderately reduced RV systolic function Mechanical mitral valve probably normal functioning Mild pulmonary hypertension No pericardial effusion Mild to moderate tricuspid regurgitation. Leadless pacemaker in the RV. Telemetry this morning shows ventricular rate at about 99 bpm. Impressions: Chest/Abdomen CTA 03/31/20 10:57 IMPRESSION: No PE. Chronic right pleural effusion with suspected loculated component. Chronic consolidation in the right lower lobe, atelectasis versus pneumonia. Chest X-Ray 04/01/20 15:30 IMPRESSION: No pneumothorax 2 hours following right-sided thoracentesis. Thoracentesis Ultrasound 04/01/20 16:26 IMPRESSION: SUCCESSFUL THORACENTESIS USING ULTRASOUND GUIDANCE. Assessment & Plan - Diagnosis (1) Atrial fibrillation Qualifiers: Atrial fibrillation type: unspecified Qualified Code(s): I48.91 - Unspecified atrial fibrillation Is this a current diagnosis for this admission?: Yes Plan: Rate control strategy with beta-blockers. Difficulty in using digoxin on account of chronic kidney disease Probable depressed left ventricular dysfunction and thus calcium channel blockers are probably not ideal either. Attempted rate control plagued by hypotension which is likely multifactorial. Continue to use Midrin for enhanced blood pressure which will help with rate control. Prefer nonselective beta-blockers to avoid hypotension (2) H/O mitral valve replacement with mechanical valve Is this a current diagnosis for this admission?: Yes Plan: Limited views on the echocardiogram which was challenging to interpret the mitral valve appears to be functioning normally. (3) Hypotension Qualifiers: Hypotension type: idiopathic hypotension Qualified Code(s): I95.0 - Idiopathic hypotension Is this a current diagnosis for this admission?: Yes Plan: Multifactorial likely Cortisol at low end of normal Would recommend continuing Midrin Probably not enough room to remove fluid given hypotension at dialysis (4) CKD (chronic kidney disease) requiring chronic dialysis Is this a current diagnosis for this admission?: Yes Plan: Appreciate nephrology input.
--- NOTE | 2020-04-02 12:52 | PDOC PROGRESS REPORT ---
Subjective Progress Note for:: 04/02/20 Subjective:: Patient feels well today. Still having some shortness of breath but states that he has no chest pain or palpitations nausea or vomiting. Reason For Visit: CHF EXACEATRIAL FIBRILLATION,BILATERAL PLEURAL Physical Exam Vital Signs: Temp Pulse Resp BP Pulse Ox 97.7 F 87 17 70/49 L 98 04/02/20 07:45 04/02/20 07:45 04/02/20 07:45 04/02/20 07:45 04/02/20 03:31 Intake & Output 04/01/20 04/02/20 04/03/20 06:59 06:59 06:59 Intake Total 686 1534 Output Total 600 0 Balance 86 1534 Weight 53.5 kg 54.8 kg General appearance: PRESENT: no acute distress, cooperative Neck exam: ABSENT: JVD Respiratory exam: PRESENT: clear to auscultation [place], unlabored. ABSENT: tachypnea, wheezes Cardiovascular exam: PRESENT: irregular rhythm, +S1, +S2. ABSENT: tachycardia GI/Abdominal exam: PRESENT: soft. ABSENT: rebound, rigid, tenderness Extremities exam: PRESENT: +1 edema Neurological exam: PRESENT: alert, awake, oriented to person, oriented to place, oriented to time, oriented to situation Results Laboratory Results: 04/02/20 05:40 04/01/20 15:36 04/01/20 04/01/20 04/01/20 13:20 15:36 15:36 WBC 7.5 RBC 4.25 L Hgb 12.3 L Hct 37.2 L MCV 87 MCH 28.9 MCHC 33.1 RDW 17.4 H Plt Count 329 Seg Neutrophils % Not Reportable Sodium 133.0 L Potassium 3.8 Chloride 98 Carbon Dioxide 27 Anion Gap 8 BUN 16 Creatinine 1.57 H Est GFR ( Amer) 55 L Glucose 108 Calcium 8.8 Fluid Type PLEURAL Fluid Source LUNG Fluid Color YELLOW Fluid Appearance CLEAR Fluid Viscosity LIQUID Fluid WBC 50 Fluid RBC 335 04/02/20 05:40 WBC 6.5 RBC 4.19 L Hgb 12.2 L Hct 37.1 L MCV 89 MCH 29.0 MCHC 32.8 RDW 17.7 H Plt Count 278 Seg Neutrophils % 73.5 Sodium Potassium Chloride Carbon Dioxide Anion Gap BUN Creatinine Est GFR ( Amer) Glucose Calcium Fluid Type Fluid Source Fluid Color Fluid Appearance Fluid Viscosity Fluid WBC Fluid RBC 05/07/20 05/07/20 05/07/20 11:02 11:02 14:29 Creatine Kinase 39 L CK-MB (CK-2) 1.71 Troponin I 0.016 0.015 NT-Pro-B Natriuret Pep [id number] H Impressions: Chest/Abdomen CTA 03/31/20 10:57 IMPRESSION: No PE. Chronic right pleural effusion with suspected loculated component. Chronic consolidation in the right lower lobe, atelectasis versus pneumonia. Chest X-Ray 04/01/20 15:30 IMPRESSION: No pneumothorax 2 hours following right-sided thoracentesis. Thoracentesis Ultrasound 04/01/20 16:26 IMPRESSION: SUCCESSFUL THORACENTESIS USING ULTRASOUND GUIDANCE. Assessment and Plan - Diagnosis (1) Persistent atrial fibrillation with rapid ventricular response Is this a current diagnosis for this admission?: Yes Plan: Lopressor 50 mg every 12 hours. Will manage with IV pushes of Lopressor. Keep on telemetry. (2) Pleural effusion Is this a current diagnosis for this admission?: Yes Plan: Seems to have recalculated right-sided pleural effusion. Now moderate level. Possible contributing factor could be chronic diastolic heart failure. Also noncompliant with medications. Status post thoracentesis 04/01/2020 with 1100 cc of fluid removed. Follow-up fluid analysis. Incentive spirometer use. Maintain on Lasix-dose skipped today due to hypotension (3) Hypotension Qualifiers: Hypotension type: idiopathic hypotension Qualified Code(s): I95.0 - Idiopathic hypotension Is this a current diagnosis for this admission?: Yes Plan: Idiopathic. Not septic. No evidence of cardiogenic shock. Hypovolemia is unlikely. Fluid given back after removal during dialysis today. Continue Midodrine. A.m. cortisol is low normal reased. Will check ACTH and perform cosyntropin test. (4) CKD (chronic kidney disease) requiring chronic dialysis Is this a current diagnosis for this admission?: Yes Plan: Nephrology consulted for management of dialysis. (5) Respiratory failure with hypoxia Qualifiers: Chronicity: acute Qualified Code(s): J96.01 - Acute respiratory failure with hypoxia Is this a current diagnosis for this admission?: Yes Plan: Likely secondary to pleural effusion. Weaned off oxygen following thoracentesis. Incentive spirometer to help with compressive basal atelectasis. (6) H/O mitral valve replacement with mechanical valve Is this a current diagnosis for this admission?: Yes Plan: Subtherapeutic INR. Goal INR of 2.5-3.5 given mechanical valve and A. fib. I suspect noncompliance as patient does not know if he took his warfarin or not. Heparin drip and Coumadin. (7) COPD (chronic obstructive pulmonary disease) Qualifiers: COPD type: unspecified COPD Qualified Code(s): J44.9 - Chronic obstructive pulmonary disease, unspecified Is this a current diagnosis for this admission?: Yes Plan: Stable. Nebs as needed. - Time Time Spent with patient: Less than 15 minutes
[2020-04-02] MEDS ORDERED: COSYNTROPIN INJ 0.25 MG VIAL IV ONE (13:00)
[2020-04-02] MEDS ORDERED: NORMAL SALINE 1000 ML 500 ML IV ONE (15:50)
[2020-04-02] MEDS ORDERED: MIDODRINE HCL 5 MG TABLET PO ONE (16:30)
[2020-04-02 16:42] LABS: ANION GAP 7 (5-19); BLOOD UREA NITROGEN 20 mg/dL (7-20); CALCIUM 8.7 mg/dL (8.4-10.2); CARBON DIOXIDE 25 mmol/L (22-30); CHLORIDE 98 mmol/L (98-107); GLUCOSE 109 mg/dL (75-110); POTASSIUM 4.3 mmol/L (3.6-5.0)
[2020-04-02] MEDS ORDERED: WARFARIN SODIUM 3 MG TABLET PO SCH (22:00)
[2020-04-02] MEDS ORDERED: WARFARIN SODIUM 2.5 MG TABLET PO SCH (22:00)
[2020-04-02] MEDS: TRAZODONE HCL 50 MG TABLET PO SCH (22:20)
[2020-04-03 06:01] LABS: ABSOLUTE BASOPHILS # (AUTO) 0.1 10^3/uL (0.0-0.2); ABSOLUTE EOSINOPHILS # (AUTO) 0.1 10^3/uL (0.0-0.6); ABSOLUTE MONOCYTES (AUTO) 0.5 10^3/uL (0.1-1.4); ABSOLUTE NEUT (AUTO) 4.5 10^3/uL (1.7-8.2); MEAN CORPUSCULAR HEMOGLOBIN 29.4 pg (27.0-33.4); TOTAL CELLS COUNTED % (AUTO) 100 %
[2020-04-03 06:08] LABS: INTERNATIONAL RATION (INR) 1.29; PROTHROMBIN TIME 16.2 SEC (11.4-15.4)
[2020-04-03 06:18] LABS: BASOPHILS % (AUTO) 1.3 % (0-2); EOSINOPHILS % (AUTO) 1.8 % (0-6); HEMATOCRIT 35.5 % (37.9-51.0); HEMOGLOBIN 11.9 g/dL (13.5-17.0); LYMPHOCYTES % (AUTO) 16.2 % (13-45); MEAN CORPUSCULAR HGB CONC 33.6 g/dL (32.0-36.0); MEAN CORPUSCULAR VOLUME 87 fl (80-97); MONOCYTES % (AUTO) 7.9 % (3-13); PLATELET COUNT 264 10^3/uL (150-450); RED BLOOD COUNT 4.07 10^6/uL (4.35-5.55); RED CELL DISTRIBUTION WIDTH 17.4 % (11.5-14.0); SEGMENTED NEUTROPHILS % (AUTO) 72.8 % (42-78); WHITE BLOOD COUNT 6.2 10^3/uL (4.0-10.5)
[2020-04-03] MEDS: HEPARIN SOD (PORCINE) 1,000 UNIT/ML 10 ML VIAL IV PRN (07:35)
[2020-04-03] MEDS: MIDODRINE HCL 5 MG TABLET PO SCH ×3 (10:07→18:28)
[2020-04-03] MEDS: METOPROLOL TARTRATE 50 MG TABLET PO SCH ×2 (10:07→21:04)
[2020-04-03] MEDS: FLUTICASONE NASAL SPRAY 50 MCG/SPRY 120 SPRAY/16 GM NASL SCH (10:14)
[2020-04-03] MEDS: DOCUSATE SODIUM 100 MG/10 ML UDC PO SCH (10:14)
[2020-04-03] MEDS ORDERED: FUROSEMIDE 20 MG TABLET PO ONE (13:47)
--- NOTE | 2020-04-03 13:49 | PDOC PROGRESS REPORT ---
Subjective Progress Note for:: 04/03/20 Subjective:: Patient is doing well today. Eager to go home soon. However willing to wait until his INR becomes close to therapeutic levels. Reason For Visit: CHF EXACEATRIAL FIBRILLATION,BILATERAL PLEURAL Physical Exam Vital Signs: Temp Pulse Resp BP Pulse Ox 97.5 F 82 17 94/68 L 96 04/03/20 13:09 04/03/20 13:09 04/03/20 13:09 04/03/20 13:04/03/20 13:09 Intake & Output 04/02/20 04/03/20 04/04/20 06:59 06:59 06:59 Intake Total 1534 1596 100 Output Total 0 125 Balance 1534 1471 100 Weight 54.8 kg 57.3 kg General appearance: PRESENT: no acute distress, cooperative Neck exam: ABSENT: JVD Respiratory exam: PRESENT: symmetrical, unlabored. ABSENT: accessory muscle use, retraction, tachypnea Cardiovascular exam: PRESENT: irregular rhythm, +S1, +S2. ABSENT: tachycardia GI/Abdominal exam: PRESENT: soft. ABSENT: rebound, rigid, tenderness Extremities exam: PRESENT: +1 edema Neurological exam: PRESENT: alert, awake Results Laboratory Results: 04/03/20 05:28 04/02/20 16:15 04/01/20 04/01/20 04/02/20 13:20 13:20 16:15 WBC RBC Hgb Hct MCV MCH MCHC RDW Plt Count Seg Neutrophils % Sodium 129.8 L Potassium 4.3 Chloride 98 Carbon Dioxide 25 Anion Gap 7 BUN 20 Creatinine 2.24 H Est GFR ( Amer) 36 L Glucose 109 Calcium 8.7 Fluid Total Protein 2.4 Fluid LDH 60 04/03/20 05:28 WBC 6.2 RBC 4.07 L Hgb 11.9 L Hct 35.5 L MCV 87 MCH 29.4 MCHC 33.6 RDW 17.4 H Plt Count 264 Seg Neutrophils % 72.8 Sodium Potassium Chloride Carbon Dioxide Anion Gap BUN Creatinine Est GFR ( Amer) Glucose Calcium Fluid Total Protein Fluid LDH 04/01/20 13:20 Pleural Fluid - Right Pleural Effusion Gram Stain - Final 03/31/20 03/31/20 03/31/20 11:02 11:02 14:29 Creatine Kinase 39 L CK-MB (CK-2) 1.71 Troponin I 0.016 0.015 NT-Pro-B Natriuret Pep [id number] H Impressions: Chest/Abdomen CTA 03/31/20 10:57 IMPRESSION: No PE. Chronic right pleural effusion with suspected loculated component. Chronic consolidation in the right lower lobe, atelectasis versus pneumonia. Chest X-Ray 04/01/20 15:30 IMPRESSION: No pneumothorax 2 hours following right-sided thoracentesis. Thoracentesis Ultrasound 04/01/20 16:26 IMPRESSION: SUCCESSFUL THORACENTESIS USING ULTRASOUND GUIDANCE. Assessment and Plan - Diagnosis (1) Persistent atrial fibrillation with rapid ventricular response Is this a current diagnosis for this admission?: Yes Plan: Lopressor 50 mg every 12 hours. Will manage with IV pushes of Lopressor. Heart rate controlled on telemetry. (2) Pleural effusion Is this a current diagnosis for this admission?: Yes Plan: Seems to have recalculated right-sided pleural effusion. Now moderate level. Possible contributing factor could be chronic diastolic heart failure. Also noncompliant with medications. Status post thoracentesis 04/01/2020 with 1100 cc of fluid removed. Follow-up fluid analysis. Incentive spirometer use. Given Lasix 20 mg today. (3) Hypotension Qualifiers: Hypotension type: idiopathic hypotension Qualified Code(s): I95.0 - Idiopathic hypotension Is this a current diagnosis for this admission?: Yes Plan: Idiopathic. Not septic. No evidence of cardiogenic shock. Hypovolemia is unlikely. A.m. cortisol was normal [but low normal] however cosyntropin test showed adequate response making adrenal insufficiency unlikely. ACTH pending. Midodrine increased to 10 mg TID. (4) H/O mitral valve replacement with mechanical valve Is this a current diagnosis for this admission?: Yes Plan: Subtherapeutic INR still. Goal INR of 2.5-3.5 given mechanical valve and A. fib. I suspect noncompliance as patient does not know if he took his warfarin or not. Heparin drip and Coumadin. Coumadin dose increased today. (5) CKD (chronic kidney disease) requiring chronic dialysis Is this a current diagnosis for this admission?: Yes Plan: Nephrology consulted for management of dialysis. (6) Respiratory failure with hypoxia Qualifiers: Chronicity: acute Qualified Code(s): J96.01 - Acute respiratory failure with hypoxia Is this a current diagnosis for this admission?: Yes Plan: Hypoxia resolved. Patient tolerating on room air for past 2 days now. (7) COPD (chronic obstructive pulmonary disease) Qualifiers: COPD type: unspecified COPD Qualified Code(s): J44.9 - Chronic obstructive pulmonary disease, unspecified Is this a current diagnosis for this admission?: Yes Plan: Stable. Nebs as needed. - Time Time Spent with patient: Less than 15 minutes
[2020-04-03] MEDS: HEPARIN SODIUM,PORCINE/D5W 25,000 UNIT/250 ML RTUINJ IV PRN (18:41)
[2020-04-03] MEDS: TRAZODONE HCL 50 MG TABLET PO SCH (21:04)
[2020-04-03] MEDS ORDERED: WARFARIN SODIUM 3 MG TABLET PO SCH (22:00)
[2020-04-04] MEDS: OXYCODONE HCL IR 5 MG TABLET PO PRN (01:34)
[2020-04-04 06:27] LABS: INTERNATIONAL RATION (INR) 1.42; PROTHROMBIN TIME 17.5 SEC (11.4-15.4)
[2020-04-04 06:28] LABS: PARTIAL THROMBOPLASTIN TIME 72.7 SEC (23.5-35.8)
[2020-04-04] MEDS: DOCUSATE SODIUM 100 MG/10 ML UDC PO SCH (10:02)
[2020-04-04] MEDS: FLUTICASONE NASAL SPRAY 50 MCG/SPRY 120 SPRAY/16 GM NASL SCH (10:02)
[2020-04-04] MEDS: MIDODRINE HCL 5 MG TABLET PO SCH ×3 (10:21→17:13)
[2020-04-04] MEDS: METOPROLOL TARTRATE 50 MG TABLET PO SCH ×2 (10:21→21:40)
--- NOTE | 2020-04-04 11:14 | PDOC PROGRESS REPORT ---
Subjective Progress Note for:: 04/04/20 Subjective:: SHAHRZAD JAIN is a 59 year old male with the following active problems: 1. 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 Pulmonary hypertension 3. Congestive heart failure 4. Paroxysmal supraventricular tachycardia 5. End-stage renal disease on hemodialysis 6. PEA arrest 59-year-old male with the above history who was initially consulted to my partner, Dr. Shields, for atrial fibrillation. Dr. Shields is off the service therefore I am following the patient now. For details of his admission please see Dr. Shields's note. In summary, the patient has had multiple episodes of PEA in the past and was admitted back in February for rapid atrial fibrillation/flutter. At that time his rate was controlled and eventually discharged home. He was again admitted to the hospital secondary to rapid A. fib and hypotension on dialysis. For details of the current admission please see Dr. Shields's note. This morning the patient feels well and is eager to go home. He has no cardiac complaints. His telemetry shows a ventricularly paced rhythm. Physical exam on 04/04/2020: The patient is alert and in no distress. There is no JVD. Lower extremities demonstrate 1-2+ pitting edema. Reason For Visit: CHF EXACEATRIAL FIBRILLATION,BILATERAL PLEURAL Physical Exam Vital Signs: Temp Pulse Resp BP Pulse Ox 97.7 F 96 16 93/69 L 92 04/04/20 08:06 04/04/20 08:06 04/04/20 08:06 04/04/20 08:06 04/04/20 08:06 Intake & Output 04/03/20 04/04/20 04/05/20 06:59 06:59 06:59 Intake Total 1596 956 Output Total 125 325 Balance 1471 631 Weight 57.3 kg 58.7 kg Results Laboratory Results: 04/03/20 05:28 04/02/20 16:15 04/01/20 13:20 Pleural Fluid - Right Pleural Effusion Gram Stain - Final 03/31/20 03/31/20 03/31/20 11:02 11:02 14:29 Creatine Kinase 39 L CK-MB (CK-2) 1.71 Troponin I 0.016 0.015 NT-Pro-B Natriuret Pep [id number] H Impressions: Chest/Abdomen CTA 03/31/20 10:57 IMPRESSION: No PE. Chronic right pleural effusion with suspected loculated component. Chronic consolidation in the right lower lobe, atelectasis versus pneumonia. Chest X-Ray 04/01/20 15:30 IMPRESSION: No pneumothorax 2 hours following right-sided thoracentesis. Thoracentesis Ultrasound 04/01/20 16:26 IMPRESSION: SUCCESSFUL THORACENTESIS USING ULTRASOUND GUIDANCE. 04/03/20 05:28 04/02/20 16:15 MCV 87 fl (80-97) 04/03/20 05:28 MCH 29.4 pg (27.0-33.4) 04/03/20 05:28 MCHC 33.6 g/dL (32.0-36.0) 04/03/20 05:28 RDW 17.4 % (11.5-14.0) H 04/03/20 05:28 Seg Neutrophils % 72.8 % (42-78) 04/03/20 05:28 Chloride 98 mmol/L (98-107) 04/02/20 16:15 Carbon Dioxide 25 mmol/L (22-30) 04/02/20 16:15 Anion Gap 7 (5-19) 04/02/20 16:15 Est GFR ( Amer) 36 (>60) L 04/02/20 16:15 Glucose 109 mg/dL (75-110) 04/02/20 16:15 Calcium 8.7 mg/dL (8.4-10.2) 04/02/20 16:15 Phosphorus 5.3 mg/dL (2.5-4.5) H 04/01/20 04:09 Magnesium 2.1 mg/dL (1.6-2.3) 04/01/20 04:09 Total Bilirubin 1.1 mg/dL (0.2-1.3) 03/31/20 11:02 AST 29 U/L (17-59) 03/31/20 11:02 Alkaline Phosphatase 153 U/L (38-126) H 03/31/20 11:02 Total Protein 7.3 g/dL (6.3-8.2) 03/31/20 17:25 Albumin 4.4 g/dL (3.5-5.0) 03/31/20 11:02 TSH 6.67 uIU/mL (0.47-4.68) H 04/01/20 04:09 Free T4 1.60 ng/dL (0.78-2.19) 04/01/20 04:09 Free T3 pg/mL 1.72 pg/mL (2.77-5.27) L 04/01/20 04:09 Fluid Type PLEURAL 04/01/20 13:20 Fluid Source LUNG 04/01/20 13:20 Fluid Color YELLOW 04/01/20 13:20 Fluid Appearance CLEAR 04/01/20 13:20 Fluid Viscosity LIQUID 04/01/20 13:20 Fluid WBC 50 /uL 04/01/20 13:20 Fluid RBC 335 /uL 04/01/20 13:20 Fluid Total Protein 2.4 g/dL (.) 04/01/20 13:20 Fluid LDH 60 IU/L (.) 04/01/20 13:20 04/01/20 13:20 Pleural Fluid - Right Pleural Effusion Gram Stain - Final 03/31/20 03/31/20 03/31/20 11:02 11:02 14:29 Creatine Kinase 39 L CK-MB (CK-2) 1.71 Troponin I 0.016 0.015 NT-Pro-B Natriuret Pep [id number] H Current Medication List Generic Name Dose Route Start Last Admin Trade Name Freq PRN Reason Stop Dose Admin Acetaminophen 650 mg 03/31/20 16:18 Tylenol 325 Mg Tablet PO 04/30/20 16:17 Q4HP PRN pain or fever Albuterol/Ipratropium 3 ml 03/31/20 16:18 Duoneb 3 Ml Ampul NEB 04/30/20 16:17 RTQ2HP PRN SHORTNESS OF BREATH Docusate Sodium 100 mg 04/01/20 10:00 04/04/20 10:02 Colace Udc 100 Mg/10 Ml Oral Soln PO 05/01/20 09:59 Not Given DAILY ANTONELLA Fluticasone Propionate 2 spray 04/02/20 10:00 04/04/20 10:02 Flonase Nasal [place] 50 Mcg/[place] 16 Gm NASL 05/02/20 09:59 Not Given DAILY ANTONELLA Furosemide 20 mg 04/05/20 10:00 Lasix 40 Mg Tablet PO 05/05/20 09:59 DAILY ANTONELLA Heparin Sodium (Porcine) 0 - 12,000 unit 04/01/20 15:00 04/03/20 07:35 Heparin Inj 1,000 Unit/Ml 10 Ml Vial IV 05/01/20 14:59 1,600 units .BOLUS PER PROTOCOL PRN Administration RESPOND TO aPTT VALUES Protocol Heparin Sodium (Porcine) 3,600 unit 04/05/20 05:00 Heparin Inj 1,000 Unit/Ml 10 Ml Vial IV 04/05/20 23:59 .SPLIT B/N CATHETERS PRN THIS MED IS NOT "PRN" Heparin Sodium/Dextrose 25,000 unit in 250 mls @ 0 mls/hr 04/01/20 20:00 04/03/20 18:41 Heparin Rtu 25,000 Unit/250 Ml D5w Premix IV 05/01/20 19:59 6.57 ml/hr CONTINUOUS PRN 6.57 mls/hr THIS MED IS NOT "PRN" Administration Protocol Titrate Metoprolol Tartrate 50 mg 03/31/20 17:00 04/04/20 10:21 Lopressor 50 Mg Tablet PO 04/30/20 16:59 50 mg Q12 ANTONELLA Administration Metoprolol Tartrate 2.5 mg 04/01/20 15:02 Lopressor Inj/Pf 5 Mg/5 Ml Sdv IV 05/01/20 15:01 Q6HP PRN GIVE FOR HR > [] Midodrine 10 mg 04/02/20 19:00 04/04/20 10:21 Proamatine 5 Mg Tablet PO 05/02/20 18:59 10 mg TID ANTONELLA Administration Ondansetron HCl 4 mg 03/31/20 16:18 Zofran Odt 4 Mg Tablet PO 04/30/20 16:17 Q4HP PRN FOR NAUSEA/VOMITING Oxycodone HCl 5 mg 04/01/20 14:48 04/04/20 01:34 Oxy-Ir 5 Mg Tablet PO 04/08/20 14:47 5 mg Q6HP PRN Administration FOR PAIN SCALE 4-5 Trazodone HCl 50 mg 04/01/20 22:00 04/03/20 21:04 Desyrel 50 Mg Tablet PO 05/01/20 21:59 50 mg QHS ANTONELLA Administration Warfarin Sodium 5 mg 04/04/20 22:00 Coumadin 5 Mg Tablet PO 05/04/20 21:59 QHS ANTONELLA Discontinued Medications Generic Name Dose Route Start Last Admin Trade Name Freq PRN Reason Stop Dose Admin Azithromycin 500 mg 03/31/20 13:39 03/31/20 14:46 Zithromax Inj 500 Mg Vial IV 03/31/20 13:40 500 mg IVBAG (ED) ONE Administration Cosyntropin 0.25 mg 04/02/20 13:00 04/02/20 13:07 Cortrosyn Inj 0.25 Mg Vial IV 04/02/20 13:01 0.25 mg DALE ONE Administration Furosemide 40 mg 03/31/20 13:44 03/31/20 14:54 Lasix Inj/Pf 40 Mg/4 Ml Sdv IV 03/31/20 13:45 40 mg NOW ONE Administration Furosemide 20 mg 03/31/20 22:00 04/01/20 15:51 Lasix Inj/Pf 20 Mg/2 Ml Sdv IV 04/30/20 21:59 Not Given Q12 ANTONELLA Furosemide 40 mg 04/02/20 10:00 04/02/20 10:08 Lasix 40 Mg Tablet PO 05/02/20 09:59 Not Given DAILY ANTONELLA Furosemide 20 mg 04/03/20 13:47 04/03/20 15:12 Lasix 20 Mg Tablet PO 04/03/20 13:48 20 mg NOW ONE Administration Heparin Sodium (Porcine) 5,000 unit 04/02/20 10:00 Heparin Inj 5,000 Units/Ml 1 Ml Vial SUBCUT 05/02/20 09:59 Q8 ANTONELLA Heparin Sodium (Porcine) 4,600 unit 04/01/20 05:00 04/01/20 11:14 Heparin Inj 1,000 Unit/Ml 10 Ml Vial IV 04/01/20 23:59 3,600 units .SPLIT B/N CATHETERS PRN Administration THIS MED IS NOT "PRN" Ceftriaxone Sodium/Dextrose 1 gm in 50 mls @ 100 mls/hr 03/31/20 14:00 03/31/20 14:34 Rocephin Rtu 1 Gm/D5w 50 Ml Premix IV 03/31/20 14:29 Infused NOW ONE Infusion Diltiazem HCl 125 mg in 125 mls @ 0 mls/hr 03/31/20 18:37 03/31/20 18:48 Cardizem Rtu Inj 125 Mg-D5w 125 Ml Premix IV 04/30/20 18:36 2.5 mls/hr CONTINUOUS PRN 2.5 mls/hr THIS MED IS NOT "PRN" Administration Protocol Titrate Sodium Chloride 1,000 mls @ 0 mls/hr 04/01/20 05:00 Nacl 0.9% 1000 Ml Iv Soln IV 04/01/20 23:59 .DIALYSIS PRN THIS MED IS NOT "PRN" As Directed Sodium Chloride 500 mls @ 0 mls/hr 04/02/20 15:50 04/02/20 17:18 Nacl 0.9% 1000 Ml Iv Soln IV 04/02/20 15:51 Infused BOLUS ONE Infusion Wide Open Metoprolol Tartrate 5 mg 03/31/20 11:07 03/31/20 11:24 Lopressor Inj/Pf 5 Mg/5 Ml Sdv IV 03/31/20 11:08 5 mg NOW ONE Administration Midodrine 5 mg 03/31/20 15:58 03/31/20 16:27 Proamatine 5 Mg Tablet PO 03/31/20 15:59 5 mg NOW ONE Administration Midodrine 5 mg 03/31/20 18:00 04/02/20 13:09 Proamatine 5 Mg Tablet PO 04/30/20 17:59 5 mg TID ANTONELLA Administration Midodrine 5 mg 04/01/20 10:47 04/01/20 14:44 Proamatine 5 Mg Tablet PO 04/01/20 10:48 5 mg NOW ONE Administration Midodrine 5 mg 04/02/20 16:30 04/02/20 16:10 Proamatine 5 Mg Tablet PO 04/02/20 16:31 5 mg NOW ONE Administration Ondansetron HCl 4 mg 03/31/20 10:57 03/31/20 11:24 Zofran Inj/Pf 4 Mg/2 Ml Sdv IV 03/31/20 10:58 4 mg NOW ONE Administration Ondansetron HCl 4 mg 03/31/20 16:18 Zofran Inj/Pf 4 Mg/2 Ml Sdv IV 04/30/20 16:17 Q4HP PRN FOR NAUSEA/VOMITING Warfarin Sodium 2.5 mg 04/01/20 22:00 04/01/20 22:01 Coumadin 2.5 Mg Tablet PO 05/01/20 21:59 2.5 mg QHS ANTONELLA Administration Warfarin Sodium 3 mg 04/02/20 22:00 Coumadin 2.5 Mg Tablet PO 05/02/20 21:59 QHS ANTONELLA Warfarin Sodium 3 mg 04/02/20 22:00 04/02/20 22:21 Coumadin 3 Mg Tablet PO 05/02/20 21:59 3 mg QHS ANTONELLA Administration Warfarin Sodium 4 mg 04/03/20 22:00 04/03/20 21:05 Coumadin 3 Mg Tablet PO 05/03/20 21:59 4 mg QHS ANTONELLA Administration Assessment & Plan - Notes Notes: The patient is hemodynamically stable and in the process of being fully an ticoagulated with warfarin. Unfortunately his blood pressure is limiting the use of medications to treat his atrial fibrillation but, once again, he is asymptomatic and eager to go home. Recommendations: -Continue with current medical management. -Continue with anticoagulation to achieve an INR goal between 2.0 and 3.0. -Continue to follow-up with nephrology. -Continue to follow-up with cardiology.
[2020-04-04] MEDS ORDERED: ACETAMINOPHEN 325 MG TABLET PO PRN (11:18)
--- NOTE | 2020-04-04 11:21 | PDOC PROGRESS REPORT ---
Subjective Progress Note for:: 04/04/20 Subjective:: Patient feels well today eager to go home soon. Has no complaints at this moment. Very comfortable. Reason For Visit: CHF EXACEATRIAL FIBRILLATION,BILATERAL PLEURAL Physical Exam Vital Signs: Temp Pulse Resp BP Pulse Ox 97.7 F 96 16 93/69 L 92 04/04/20 08:06 04/04/20 08:06 04/04/20 08:06 04/04/20 08:06 04/04/20 08:06 Intake & Output 04/03/20 04/04/20 04/05/20 06:59 06:59 06:59 Intake Total 1596 956 Output Total 125 325 Balance 1471 631 Weight 57.3 kg 58.7 kg General appearance: PRESENT: no acute distress, cooperative Respiratory exam: PRESENT: unlabored. ABSENT: accessory muscle use, retraction Neurological exam: PRESENT: alert, awake Psychiatric exam: ABSENT: agitated, anxious Results Laboratory Results: 04/03/20 05:28 04/02/20 16:15 04/01/20 13:20 Pleural Fluid - Right Pleural Effusion Gram Stain - Final 03/31/20 03/31/20 03/31/20 11:02 11:02 14:29 Creatine Kinase 39 L CK-MB (CK-2) 1.71 Troponin I 0.016 0.015 NT-Pro-B Natriuret Pep [id number] H Impressions: Chest/Abdomen CTA 03/31/20 10:57 IMPRESSION: No PE. Chronic right pleural effusion with suspected loculated component. Chronic consolidation in the right lower lobe, atelectasis versus pneumonia. Chest X-Ray 04/01/20 15:30 IMPRESSION: No pneumothorax 2 hours following right-sided thoracentesis. Thoracentesis Ultrasound 04/01/20 16:26 IMPRESSION: SUCCESSFUL THORACENTESIS USING ULTRASOUND GUIDANCE. Assessment and Plan - Diagnosis (1) H/O mitral valve replacement with mechanical valve Is this a current diagnosis for this admission?: Yes Plan: Subtherapeutic INR still. Goal INR of 2.5-3.5 given mechanical valve and A. fib. I suspect noncompliance as patient does not know if he took his warfarin or not. I have patient on an increased Coumadin dose of 4 mg daily. INR now trending up. Patient will need to be in the hospital on heparin bridge until INR is at least over 2. Home care home to help with medication administration to ensure compliance upon discharge. Patient should follow-up with CT surgery Dr. Robbins and research kennel supervisor Dr. Papi Lou both at [facility] in light of his recent MVR in 10/2019 and paroxysms of dyspnea and pleural effusions since then. (2) Persistent atrial fibrillation with rapid ventricular response Is this a current diagnosis for this admission?: Yes Plan: Heart rate remains controlled on Lopressor 50 mg every 12 hours. (3) Pleural effusion Is this a current diagnosis for this admission?: Yes Plan: Re-accumulated right-sided pleural effusion since thoracentesis during last recent admission. Possible contributing factor could be chronic diastolic heart failure. Also noncompliant with medications. Status post thoracentesis 04/01/2020 with 1100 cc of transudate fluid removed. Incentive spirometer. Lasix 20 mg daily on nondialysis days. (4) Hypotension Qualifiers: Hypotension type: idiopathic hypotension Qualified Code(s): I95.0 - Idiopathic hypotension Is this a current diagnosis for this admission?: Yes Plan: Idiopathic at this point. Not septic. No evidence of cardiogenic shock. Not hypovolemic. A.m. cortisol was normal [but low normal] however cosyntropin test showed adequate response making adrenal insufficiency unlikely. ACTH pending. Continue midodrine 10 mg TID. (5) CKD (chronic kidney disease) requiring chronic dialysis Is this a current diagnosis for this admission?: Yes Plan: Nephrology consulted for management of dialysis. Will need to be evaluated closely by nephrology to see if continued dialysis is still needed (6) Respiratory failure with hypoxia Qualifiers: Chronicity: acute Qualified Code(s): J96.01 - Acute respiratory failure with hypoxia Is this a current diagnosis for this admission?: Yes Plan: Hypoxia resolved. Patient tolerating on room air for past 3 days now. (7) COPD (chronic obstructive pulmonary disease) Qualifiers: COPD type: unspecified COPD Qualified Code(s): J44.9 - Chronic obstructive pulmonary disease, unspecified Is this a current diagnosis for this admission?: Yes Plan: Stable. Nebs as needed. - Time Time Spent with patient: Less than 15 minutes
[2020-04-04] MEDS ORDERED: ONDANSETRON 4 MG TAB.RAPDIS PO PRN (11:30)
--- NOTE | 2020-04-04 13:00 | PDOC PROGRESS REPORT ---
Subjective Progress Note for:: 04/04/20 Reason For Visit: Patient seen today. He is quite comfortable and in no distress. He tells me that he makes about 200 cc of urine each time he goes to the bathroom and he has done that 4-5 times a day. Unfortunately does not been recorded on the I's and O's. He denies any abdominal pains or chest pain or shortness of breath. He admits to minimal pedal edema but he admits that he leaves his legs hanging down all the time. Labs and medications were reviewed. He had dialysis on Saturday. Physical Exam Vital Signs: Temp Pulse Resp BP Pulse Ox 97.7 F 96 16 93/69 L 92 04/04/20 08:06 04/04/20 08:06 04/04/20 08:06 04/04/20 08:06 04/04/20 08:06 Intake & Output 04/03/20 04/04/20 04/05/20 06:59 06:59 06:59 Intake Total 1596 956 Output Total 125 325 Balance 1471 631 Weight 57.3 kg 58.7 kg General appearance: PRESENT: no acute distress Respiratory exam: PRESENT: clear to auscultation [place], decreased breath sounds. ABSENT: crackles Cardiovascular exam: PRESENT: +S1, +S2, systolic murmur GI/Abdominal exam: PRESENT: normal bowel sounds, soft. ABSENT: organomegaly, tenderness Extremities exam: PRESENT: pedal edema - Trace-1+ Neurological exam: PRESENT: alert, awake, oriented to person, oriented to place Psychiatric exam: PRESENT: anxious Skin exam: ABSENT: erythema, mottled, rash Results Laboratory Results: 04/03/20 05:28 04/02/20 16:15 04/01/20 13:20 Pleural Fluid - Right Pleural Effusion Gram Stain - Final 03/31/20 03/31/20 03/31/20 11:02 11:02 14:29 Creatine Kinase 39 L CK-MB (CK-2) 1.71 Troponin I 0.016 0.015 NT-Pro-B Natriuret Pep [id number] H Impressions: Chest/Abdomen CTA 03/31/20 10:57 IMPRESSION: No PE. Chronic right pleural effusion with suspected loculated component. Chronic consolidation in the right lower lobe, atelectasis versus pneumonia. Chest X-Ray 04/01/20 15:30 IMPRESSION: No pneumothorax 2 hours following right-sided thoracentesis. Thoracentesis Ultrasound 04/01/20 16:26 IMPRESSION: SUCCESSFUL THORACENTESIS USING ULTRASOUND GUIDANCE. Assessment & Plan - Diagnosis (1) ESRD (end stage renal disease) on dialysis Is this a current diagnosis for this admission?: Yes Plan: Currently he looks very stable. There is no external signs of uremia or fluid overload. His renal numbers are stable. Potassium is stable. No acute indications for renal replacements given the fact that he says to me that he is urinating approximately 802,000 cc of urine every day. Discussed with this nurse Lashell to make sure that he keeps acute documentation of his I and O's. Discussed this with patient as well. Will watch over him on a regular basis to see if there is any indication of renal replacement therapy needed.No dialysis is being done today. (2) H/O mitral valve replacement with mechanical valve Is this a current diagnosis for this admission?: Yes Plan: Stable. Cardiology following. (3) Hypotension Qualifiers: Hypotension type: idiopathic hypotension Qualified Code(s): I95.0 - Idiopathic hypotension Is this a current diagnosis for this admission?: Yes Plan: Currently on Midodrin. Being worked up for possible [place]'s disease.Ideally he should have his cosyntropin test. (4) Atrial fibrillation Qualifiers: Atrial fibrillation type: unspecified Qualified Code(s): I48.91 - Unsp ecified atrial fibrillation Is this a current diagnosis for this admission?: Yes Plan: Rate controlled.
[2020-04-04] MEDS: TRAZODONE HCL 50 MG TABLET PO SCH (21:39)
[2020-04-04] MEDS: WARFARIN SODIUM 5 MG TABLET PO SCH (21:39)
[2020-04-04] MEDS ORDERED: LACTULOSE SYRUP 20 GM/30 ML UDCUP PR ONE (22:00)
[2020-04-05] MEDS ORDERED: HEPARIN SOD (PORCINE) 1,000 UNIT/ML 10 ML VIAL IV PRN (05:00)
[2020-04-05 07:02] LABS: INTERNATIONAL RATION (INR) 1.62; PROTHROMBIN TIME 19.4 SEC (11.4-15.4)
[2020-04-05 07:04] LABS: PARTIAL THROMBOPLASTIN TIME 91.8 SEC (23.5-35.8)
[2020-04-05] MEDS: HEPARIN SODIUM,PORCINE/D5W 25,000 UNIT/250 ML RTUINJ IV PRN (07:28)
[2020-04-05 08:03] LABS: ANION GAP 11 (5-19); BLOOD UREA NITROGEN 35 mg/dL (7-20); CALCIUM 9.1 mg/dL (8.4-10.2); CARBON DIOXIDE 21 mmol/L (22-30); CHLORIDE 96 mmol/L (98-107); GLUCOSE 88 mg/dL (75-110); POTASSIUM 5.1 mmol/L (3.6-5.0)
[2020-04-05] MEDS: FLUTICASONE NASAL SPRAY 50 MCG/SPRY 120 SPRAY/16 GM NASL SCH (09:18)
[2020-04-05] MEDS: DOCUSATE SODIUM 100 MG CAPSULE PO SCH (09:18)
[2020-04-05] MEDS: MIDODRINE HCL 5 MG TABLET PO SCH ×3 (09:18→17:02)
[2020-04-05] MEDS: METOPROLOL TARTRATE 50 MG TABLET PO SCH ×2 (09:18→21:22)
--- NOTE | 2020-04-05 09:57 | PDOC PROGRESS REPORT ---
Subjective Progress Note for:: 04/05/20 Subjective:: SHAHRZAD JAIN is a 59 year old male with the following active problems: 1. 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 Pulmonary hypertension 3. Congestive heart failure 4. Paroxysmal supraventricular tachycardia 5. End-stage renal disease on hemodialysis 6. PEA arrest 59-year-old male with the above history who was initially consulted to my partner, Dr. Shields, for atrial fibrillation. Dr. Shields is off the service therefore I am following the patient now. For details of his admission please see Dr. Shields's note. In summary, the patient has had multiple episodes of PEA in the past and was admitted back in February for rapid atrial fibrillation/flutter. At that time his rate was controlled and eventually discharged home. He was again admitted to the hospital secondary to rapid A. fib and hypotension on dialysis. For details of the current admission please see Dr. Shields's note. This morning the patient feels well and is eager to go home. He has no cardiac complaints. His telemetry shows a ventricularly paced rhythm. 04/05/2020: The patient had an uneventful night however complains of dyspnea on exertion as he gets short of breath just walking from the bathroom to his bed. He does have lower extremity edema. His telemetry showed artifact and a paced rhythm. His INR continues to be subtherapeutic. Physical exam on 04/05/2020: GENERAL: Pleasant and conversational. Oriented x3 with normal mood. Not in acute distress. Well groomed and well developed. HEENT: Normocephalic, atraumatic. Pupils equal. Sclerae anicteric. Oropharynx moist. NECK: No JVD. No carotid bruits. LUNGS: Clear to auscultation bilaterally. Normal respiratory effort without the use of accessory muscles or intercostal retractions. CARDIOVASCULAR: Regular rate and rhythm, normal S1 and S2 without murmurs, rubs, or gallops. PMI not displaced. EXTREMITIES: 1-2+ pitting edema bilaterally, no cyanosis, no clubbing. +2 pulses femoral and pedal pulses bilaterally. MUSCULOSKELETAL: No chest tenderness to palpation. NEUROLOGIC: Nonfocal. No gross sensory or motor deficits bilateral upper or lower extremities. Reason For Visit: CHF EXACEATRIAL FIBRILLATION,BILATERAL PLEURAL Physical Exam Vital Signs: Temp Pulse Resp BP Pulse Ox 97.3 F 92 16 108/77 97 04/04/20 20:23 04/05/20 06:39 04/05/20 00:43 04/04/20 20:23 04/05/20 03:18 Intake & Output 04/03/20 04/04/20 04/05/20 06:59 06:59 06:59 Intake Total 1596 956 797 Output Total 125 325 600 Balance 1471 631 197 Weight 57.3 kg 58.7 kg 59.7 kg Results Laboratory Results: 04/03/20 05:28 04/02/20 16:15 04/01/20 13:20 Pleural Fluid - Right Pleural Effusion Gram Stain - Final 03/31/20 03/31/20 03/31/20 11:02 11:02 14:29 Creatine Kinase 39 L CK-MB (CK-2) 1.71 Troponin I 0.016 0.015 NT-Pro-B Natriuret Pep [id number] H Impressions: Chest/Abdomen CTA 03/31/20 10:57 IMPRESSION: No PE. Chronic right pleural effusion with suspected loculated component. Chronic consolidation in the right lower lobe, atelectasis versus pneumonia. Chest X-Ray 04/01/20 15:30 IMPRESSION: No pneumothorax 2 hours following right-sided thoracentesis. Thoracentesis Ultrasound 04/01/20 16:26 IMPRESSION: SUCCESSFUL THORACENTESIS USING ULTRASOUND GUIDANCE. Current Medication List Generic Name Dose Route Start Last Admin Trade Name Freq PRN Reason Stop Dose Admin Acetaminophen 650 mg 04/04/20 11:18 Tylenol 325 Mg Tablet PO 05/04/20 11:17 Q6HP PRN pain or fever Albuterol/Ipratropium 3 ml 03/31/20 16:18 Duoneb 3 Ml Ampul NEB 04/30/20 16:17 RTQ2HP PRN SHORTNESS OF BREATH Docusate Sodium 100 mg 04/05/20 10:00 Colace 100 Mg Capsule PO 05/05/20 09:59 DAILY ANTONELLA Fluticasone Propionate 2 spray 04/02/20 10:00 04/04/20 10:02 Flonase Nasal [place] 50 Mcg/[place] 16 Gm NASL 05/02/20 09:59 Not Given DAILY ANTONELLA Heparin Sodium (Porcine) 0 - 12,000 unit 04/01/20 15:00 04/03/20 07:35 Heparin Inj 1,000 Unit/Ml 10 Ml Vial IV 05/01/20 14:59 1,600 units .BOLUS PER PROTOCOL PRN Administration RESPOND TO aPTT VALUES Protocol Heparin Sodium (Porcine) 3,600 unit 04/05/20 05:00 Heparin Inj 1,000 Unit/Ml 10 Ml Vial IV 04/05/20 23:59 .SPLIT B/N CATHETERS PRN THIS MED IS NOT "PRN" Heparin Sodium/Dextrose 25,000 unit in 250 mls @ 0 mls/hr 04/01/20 20:00 04/03/20 18:41 Heparin Rtu 25,000 Unit/250 Ml D5w Premix IV 05/01/20 19:59 6.57 ml/hr CONTINUOUS PRN 6.57 mls/hr THIS MED IS NOT "PRN" Administration Protocol Titrate Metoprolol Tartrate 50 mg 03/31/20 17:00 04/04/20 21:40 Lopressor 50 Mg Tablet PO 04/30/20 16:59 50 mg Q12 ANTONELLA Administration Metoprolol Tartrate 2.5 mg 04/01/20 15:02 Lopressor Inj/Pf 5 Mg/5 Ml Sdv IV 05/01/20 15:01 Q6HP PRN GIVE FOR HR > [] Midodrine 10 mg 04/02/20 19:00 04/04/20 17:13 Proamatine 5 Mg Tablet PO 05/02/20 18:59 10 mg TID ANTONELLA Administration Ondansetron HCl 4 mg 04/04/20 11:30 Zofran Odt 4 Mg Tablet PO 04/30/20 16:17 Q4HP PRN FOR NAUSEA/VOMITING Oxycodone HCl 5 mg 04/01/20 14:48 04/04/20 01:34 Oxy-Ir 5 Mg Tablet PO 04/08/20 14:47 5 mg Q6HP PRN Administration FOR PAIN SCALE 4-5 Trazodone HCl 50 mg 04/01/20 22:00 04/04/20 21:39 Desyrel 50 Mg Tablet PO 05/01/20 21:59 50 mg QHS ANTONELLA Administration Warfarin Sodium 5 mg 04/04/20 22:00 04/04/20 21:39 Coumadin 5 Mg Tablet PO 05/04/20 21:59 5 mg QHS ANTONELLA Administration Discontinued Medications Generic Name Dose Route Start Last Admin Trade Name Freq PRN Reason Stop Dose Admin Acetaminophen 650 mg 03/31/20 16:18 Tylenol 325 Mg Tablet PO 04/30/20 16:17 Q4HP PRN pain or fever Azithromycin 500 mg 03/31/20 13:39 03/31/20 14:46 Zithromax Inj 500 Mg Vial IV 03/31/20 13:40 500 mg IVBAG (ED) ONE Administration Cosyntropin 0.25 mg 04/02/20 13:00 04/02/20 13:07 Cortrosyn Inj 0.25 Mg Vial IV 04/02/20 13:01 0.25 mg DALE ONE Administration Docusate Sodium 100 mg 04/01/20 10:00 04/04/20 10:02 Colace Udc 100 Mg/10 Ml Oral Soln PO 05/01/20 09:59 Not Given DAILY ANTONELLA Furosemide 40 mg 03/31/20 13:44 03/31/20 14:54 Lasix Inj/Pf 40 Mg/4 Ml Sdv IV 03/31/20 13:45 40 mg NOW ONE Administration Furosemide 20 mg 03/31/20 22:00 04/01/20 15:51 Lasix Inj/Pf 20 Mg/2 Ml Sdv IV 04/30/20 21:59 Not Given Q12 ANTONELLA Furosemide 40 mg 04/02/20 10:00 04/02/20 10:08 Lasix 40 Mg Tablet PO 05/02/20 09:59 Not Given DAILY ANTONELLA Furosemide 20 mg 04/03/20 13:47 04/03/20 15:12 Lasix 20 Mg Tablet PO 04/03/20 13:48 20 mg NOW ONE Administration Furosemide 20 mg 04/05/20 10:00 Lasix 20 Mg Tablet PO 05/05/20 09:59 DAILY ANTONELLA Furosemide 20 mg 04/05/20 10:00 Lasix 20 Mg Tablet PO 05/05/20 09:59 DAILY ANTONELLA Heparin Sodium (Porcine) 5,000 unit 04/02/20 10:00 Heparin Inj 5,000 Units/Ml 1 Ml Vial SUBCUT 05/02/20 09:59 Q8 ANTONELLA Heparin Sodium (Porcine) 4,600 unit 04/01/20 05:00 04/01/20 11:14 Heparin Inj 1,000 Unit/Ml 10 Ml Vial IV 04/01/20 23:59 3,600 units .SPLIT B/N CATHETERS PRN Administration THIS MED IS NOT "PRN" Ceftriaxone Sodium/Dextrose 1 gm in 50 mls @ 100 mls/hr 03/31/20 14:00 06/13 14:34 Rocephin Rtu 1 Gm/D5w 50 Ml Premix IV 03/31/20 14:29 Infused NOW ONE Infusion Diltiazem HCl 125 mg in 125 mls @ 0 mls/hr 03/31/20 18:37 03/31/20 18:48 Cardizem Rtu Inj 125 Mg-D5w 125 Ml Premix IV 04/30/20 18:36 2.5 mls/hr CONTINUOUS PRN 2.5 mls/hr THIS MED IS NOT "PRN" Administration Protocol Titrate Sodium Chloride 1,000 mls @ 0 mls/hr 04/01/20 05:00 Nacl 0.9% 1000 Ml Iv Soln IV 04/01/20 23:59 .DIALYSIS PRN THIS MED IS NOT "PRN" As Directed Sodium Chloride 500 mls @ 0 mls/hr 04/02/20 15:50 04/02/20 17:18 Nacl 0.9% 1000 Ml Iv Soln IV 04/02/20 15:51 Infused BOLUS ONE Infusion Wide Open Lactulose 200 gm 04/04/20 22:00 04/04/20 21:43 Cephulac Syrup 20 Gm/30 Ml Udcup OR 04/04/20 22:01 Not Given NOW ONE Metoprolol Tartrate 5 mg 03/31/20 11:07 03/31/20 11:24 Lopressor Inj/Pf 5 Mg/5 Ml Sdv IV 03/31/20 11:08 5 mg NOW ONE Administration Midodrine 5 mg 03/31/20 15:58 03/31/20 16:27 Proamatine 5 Mg Tablet PO 03/31/20 15:59 5 mg NOW ONE Administration Midodrine 5 mg 03/31/20 18:00 04/02/20 13:09 Proamatine 5 Mg Tablet PO 04/30/20 17:59 5 mg TID ANTONELLA Administration Midodrine 5 mg 04/01/20 10:47 04/01/20 14:44 Proamatine 5 Mg Tablet PO 04/01/20 10:48 5 mg NOW ONE Administration Midodrine 5 mg 04/02/20 16:30 05/09/20 16:10 Proamatine 5 Mg Tablet PO 04/02/20 16:31 5 mg NOW ONE Administration Ondansetron HCl 4 mg 03/31/20 10:57 03/31/20 11:24 Zofran Inj/Pf 4 Mg/2 Ml Sdv IV 03/31/20 10:58 4 mg NOW ONE Administration Ondansetron HCl 4 mg 03/31/20 16:18 Zofran Odt 4 Mg Tablet PO 04/30/20 16:17 Q4HP PRN FOR NAUSEA/VOMITING Ondansetron HCl 4 mg 03/31/20 16:18 Zofran Inj/Pf 4 Mg/2 Ml Sdv IV 04/30/20 16:17 Q4HP PRN FOR NAUSEA/VOMITING Warfarin Sodium 2.5 mg 04/01/20 22:00 04/01/20 22:01 Coumadin 2.5 Mg Tablet PO 05/01/20 21:59 2.5 mg QHS ANTONELLA Administration Warfarin Sodium 3 mg 04/02/20 22:00 Coumadin 2.5 Mg Tablet PO 05/02/20 21:59 QHS ANTONELLA Warfarin Sodium 3 mg 04/02/20 22:00 04/02/20 22:21 Coumadin 3 Mg Tablet PO 05/02/20 21:59 3 mg QHS ANTONELLA Administration Warfarin Sodium 4 mg 04/03/20 22:00 04/03/20 21:05 Coumadin 3 Mg Tablet PO 05/03/20 21:59 4 mg QHS ANTONELLA Administration 04/03/20 05:28 04/02/20 16:15 MCV 87 fl (80-97) 04/03/20 05:28 MCH 29.4 pg (27.0-33.4) 04/03/20 05:28 MCHC 33.6 g/dL (32.0-36.0) 04/03/20 05:28 RDW 17.4 % (11.5-14.0) H 04/03/20 05:28 Seg Neutrophils % 72.8 % (42-78) 04/03/20 05:28 Chloride 98 mmol/L (98-107) 04/02/20 16:15 Carbon Dioxide 25 mmol/L (22-30) 04/02/20 16:15 Anion Gap 7 (5-19) 04/02/20 16:15 Est GFR ( Amer) 36 (>60) L 04/02/20 16:15 Glucose 109 mg/dL (75-110) 04/02/20 16:15 Calcium 8.7 mg/dL (8.4-10.2) 04/02/20 16:15 Phosphorus 5.3 mg/dL (2.5-4.5) H 04/01/20 04:09 Magnesium 2.1 mg/dL (1.6-2.3) 04/01/20 04:09 Total Bilirubin 1.1 mg/dL (0.2-1.3) 03/31/20 11:02 AST 29 U/L (17-59) 03/31/20 11:02 Alkaline Phosphatase 153 U/L (38-126) H 03/31/20 11:02 Total Protein 7.3 g/dL (6.3-8.2) 03/31/20 17:25 Albumin 4.4 g/dL (3.5-5.0) 03/31/20 11:02 TSH 6.67 uIU/mL (0.47-4.68) H 04/01/20 04:09 Free T4 1.60 ng/dL (0.78-2.19) 04/01/20 04:09 Free T3 pg/mL 1.72 pg/mL (2.77-5.27) L 04/01/20 04:09 Fluid Type PLEURAL 04/01/20 13:20 Fluid Source LUNG 04/01/20 13:20 Fluid Color YELLOW 04/01/20 13:20 Fluid Appearance CLEAR 04/01/20 13:20 Fluid Viscosity LIQUID 04/01/20 13:20 Fluid WBC 50 /uL 04/01/20 13:20 Fluid RBC 335 /uL 04/01/20 13:20 Fluid Total Protein 2.4 g/dL (.) 04/01/20 13:20 Fluid LDH 60 IU/L (.) 04/01/20 13:20 04/01/20 13:20 Pleural Fluid - Right Pleural Effusion Gram Stain - Final 03/31/20 03/31/20 03/31/20 11:02 11:02 14:29 Creatine Kinase 39 L CK-MB (CK-2) 1.71 Troponin I 0.016 0.015 NT-Pro-B Natriuret Pep [id number] H Assessment & Plan - Diagnosis (1) Atrial fibrillation Qualifiers: Atrial fibrillation type: unspecified Qualified Code(s): I48.91 - Unspecified atrial fibrillation Plan: His atrial fibrillation is well controlled at this point and the primary team is working on getting his INR to therapeutic levels. Recommendations: -Continue with current medical management. -Continue to follow INR. (2) H/O mitral valve replacement with mechanical valve Is this a current diagnosis for this admission?: Yes Plan: He has no symptoms related to his mitral valve replacement. His INR continues to be subtherapeutic. Recommendations: -INR goal between 2.5 and 3.5. -We will defer further management to primary team. (3) CHF exacerbation Qualifiers: Heart failure type: unspecified Qualified Code(s): I50.9 - Heart failure, unspecified Is this a current diagnosis for this admission?: Yes Plan: The patient complains of dyspnea on exertion this morning. His fluid balance since admission is close to 4 L therefore he is fluid overloaded and symptomatic. He had dialysis last Saturday and is currently not on any diuretic. Unfortunately his blood pressure continues to be on the low side which limits our ability to diurese him and, to complicate matters, his creatinine continues to rise. At this point I would like to discuss the case with the nephrology team regarding the best diuretic approach to this patient. Recommendations: -Discussed case with nephrology team. -Restrict fluid intake to 1500 cc daily. -Low sodium diet, less than 1500 mg daily. -Strict intake and output. -Daily weights. (4) CKD (chronic kidney disease) requiring chronic dialysis Plan: His creatinine continues to rise. I will defer further management to nephrology team.
[2020-04-05] MEDS ORDERED: FUROSEMIDE 20 MG TABLET PO SCH ×2 (10:00)
--- NOTE | 2020-04-05 10:47 | RADIOLOGY REPORT (SQ) ---
EXAM DESCRIPTION: CHEST 2 VIEWS IMAGES COMPLETED DATE/TIME: 04/05/2020 10:33 am REASON FOR STUDY: pleural effusion COMPARISON: 04/01/2020 EXAM PARAMETERS: NUMBER OF VIEWS: two views TECHNIQUE: Digital Frontal and Lateral radiographic views of the chest acquired. RADIATION DOSE: NA LIMITATIONS: none FINDINGS: LUNGS AND PLEURA: Increasing bilateral pleural effusions right greater than left. Probabl e underlying atelectasis or pneumonia. MEDIASTINUM AND HILAR STRUCTURES: No masses or contour abnormalities. HEART AND VASCULAR STRUCTURES: Heart size is stable. The central vascular prominence. Mild vascular congestion is suspected. BONES: No acute findings. HARDWARE: Dialysis catheter remains in place along with sternotomy wires and loop recorder. OTHER: No other significant finding. IMPRESSION: Increasing bilateral pleural effusions right greater than left. Probable underlying vas cular congestion. Basilar atelectasis or pneumonia cannot be excluded. TECHNICAL DOCUMENTATION: JOB ID: [id number] 2010 [employer]- All Rights Reserved Reading location - IP/workstation name: [email or web address]
[2020-04-05] MEDS ORDERED: BUMETANIDE INJ/PF 1 MG/4 ML SDV IV ONE (16:00)
--- NOTE | 2020-04-05 16:30 | PDOC PROGRESS REPORT ---
Subjective Progress Note for:: 04/05/20 Subjective:: Patient was seen and examined. He is in no acute distress. INR is 1.62 today. Reason For Visit: CHF EXACEATRIAL FIBRILLATION,BILATERAL PLEURAL Physical Exam Vital Signs: Temp Pulse Resp BP Pulse Ox 97.7 F 93 20 94/70 L 97 04/05/20 08:00 04/05/20 08:00 04/05/20 08:00 04/05/20 08:00 04/05/20 08:00 Intake & Output 04/04/20 04/05/20 04/06/20 06:59 06:59 06:59 Intake Total 956 797 480 Output Total 325 600 420 Balance 631 197 60 Weight 129 lb 6.581 oz 131 lb 9.855 oz General appearance: PRESENT: no acute distress, cooperative Head exam: PRESENT: atraumatic, normocephalic Eye exam: PRESENT: EOMI, PERRLA Mouth exam: PRESENT: neck supple, tongue midline Neck exam: ABSENT: meningismus, tenderness Respiratory exam: PRESENT: decreased breath sounds - Right lung Cardiovascular exam: PRESENT: RRR GI/Abdominal exam: PRESENT: normal bowel sounds. ABSENT: tenderness Rectal exam: PRESENT: deferred Extremities exam: ABSENT: joint swelling Neurological exam: PRESENT: alert, awake, oriented to person, oriented to place, oriented to time, oriented to situation Psychiatric exam: PRESENT: anxious Results Laboratory Results: 04/03/20 05:28 04/05/20 06:48 04/05/20 06:48 Sodium 127.8 L Potassium 5.1 H Chloride 96 L Carbon Dioxide 21 L Anion Gap 11 BUN 35 H Creatinine 2.97 H Est GFR ( Amer) 26 L Glucose 88 Calcium 9.1 03/31/20 13:59 Blood Blood Culture - Final NO GROWTH IN 5 DAYS 04/01/20 13:20 Pleural Fluid - Right Pleural Effusion Gram Stain - Final 04/01/20 13:20 Pleural Fluid - Right Pleural Effusion Body Fluid Culture - Final NO AEROBIC OR ANAEROBIC ORGANISMS RECOVERED 03/31/20 03/31/20 03/31/20 11:02 11:02 14:29 Creatine Kinase 39 L CK-MB (CK-2) 1.71 Troponin I 0.016 0.015 NT-Pro-B Natriuret Pep [id number] H Impressions: Chest/Abdomen CTA 05/07/20 10:57 IMPRESSION: No PE. Chronic right pleural effusion with suspected loculated component. Chronic consolidation in the right lower lobe, atelectasis versus pneumonia. Thoracentesis Ultrasound 04/01/20 16:26 IMPRESSION: SUCCESSFUL THORACENTESIS USING ULTRASOUND GUIDANCE. Chest X-Ray 04/05/20 00:00 IMPRESSION: Increasing bilateral pleural effusions right greater than left. Probable underlying vascular congestion. Basilar atelectasis or pneumonia cannot be excluded. Assessment and Plan - Diagnosis (1) H/O mitral valve replacement with mechanical valve Is this a current diagnosis for this admission?: Yes Plan: Subtherapeutic INR still. Goal INR of 2.5-3.5 given mechanical valve and A. fib. Continue Coumadin and monitor INR Probably would benefit from [facility] to help with medication administration to ensure compliance upon discharge. Patient should follow-up with CT surgery Dr. Robbins and supervisor electric motor testing Dr. Papi Lou both at [place] in light of his recent MVR in 10/2019 and paroxysms of dyspnea and pleural effusions since then. (2) Persistent atrial fibrillation with rapid ventricular response Is this a current diagnosis for this admission?: Yes Plan: Heart rate remains controlled on Lopressor 50 mg every 12 hours. (3) Hypotension Qualifiers: Hypotension type: idiopathic hypotension Qualified Code(s): I95.0 - Idiopathic hypotension Is this a current diagnosis for this admission?: Yes Plan: Idiopathic at this point. Not septic. No evidence of cardiogenic shock. Not hypovolemic. A.m. cortisol was normal [but low normal] however cosyntropin test showed adequate response making adrenal insufficiency unlikely. ACTH low normal. Continue midodrine 10 mg TID. (4) Pleural effusion Is this a current diagnosis for this admission?: Yes Plan: Re-accumulated right-sided pleural effusion since thoracentesis during last recent admission. Possible contributing factor could be chronic diastolic heart failure. Also noncompliant with medications. Status post thoracentesis 04/01/2020 with 1100 cc of transudate fluid removed. Incentive spirometer. Lasix 20 mg daily on nondialysis days. (5) CKD (chronic kidney disease) requiring chronic dialysis Is this a current diagnosis for this admission?: Yes Plan: Nephrology consulted for management of dialysis. Will need to be evaluated clos carlos by nephrology to see if continued dialysis is still needed (6) Respiratory failure with hypoxia Qualifiers: Chronicity: acute Qualified Code(s): J96.01 - Acute respiratory failure with hypoxia Is this a current diagnosis for this admission?: Yes Plan: Hypoxia resolved. Patient tolerating on room air for past several days now. (7) COPD (chronic obstructive pulmonary disease) Qualifiers: COPD type: unspecified COPD Qualified Code(s): J44.9 - Chronic obstructive pulmonary disease, unspecified Is this a current diagnosis for this admission?: Yes Plan: Stable. Nebs as needed.
[2020-04-05 19:25] LABS: INTERNATIONAL RATION (INR) 1.71; PROTHROMBIN TIME 20.3 SEC (11.4-15.4)
[2020-04-05 19:35] LABS: ANION GAP 10 (5-19); BLOOD UREA NITROGEN 35 mg/dL (7-20); CALCIUM 9.3 mg/dL (8.4-10.2); CARBON DIOXIDE 26 mmol/L (22-30); CHLORIDE 94 mmol/L (98-107); GLUCOSE 108 mg/dL (75-110); POTASSIUM 4.7 mmol/L (3.6-5.0)
--- NOTE | 2020-04-05 20:17 | PDOC PROGRESS REPORT ---
Subjective Progress Note for:: 04/05/20 Subjective:: I saw the patient sitting at the edge of the bed and seems to be comfortable. However patient admits dyspnea on exertion and going to the bathroom and moving around. He made about 600 mL of urine output that was recorded yesterday. For the first shift so far he had made 420 mL. His blood pressure continues to be on the low side. The cosyntropin ACTH stimulation test was negative. Reason For Visit: CHF EXACEATRIAL FIBRILLATION,BILATERAL PLEURAL Physical Exam Vital Signs: Temp Pulse Resp BP Pulse Ox 97.7 F 93 20 94/70 L 97 04/05/20 08:00 04/05/20 08:00 04/05/20 08:00 04/05/20 08:00 04/05/20 08:00 Intake & Output 04/04/20 04/05/20 04/06/20 06:59 06:59 06:59 Intake Total 956 797 242 Output Total 325 600 Balance 631 197 242 Weight 58.7 kg 59.7 kg Exam: General appearance: PRESENT: no acute distress, cooperative, well-developed, well-nourished Head exam: PRESENT: atraumatic, normocephalic Eye exam: PRESENT: conjunctiva pale, PERRLA. ABSENT: scleral icterus Neck exam: ABSENT: JVD Respiratory exam: PRESENT: Diminished breath sounds more so on the right than on the left. ABSENT: crackles, rales, rhonchi, unlabored, wheezes Cardiovascular exam: PRESENT: Irregular rate rhythm -+S1, +S2. ABSENT: diastolic murmur, systolic murmur GI/Abdominal exam: PRESENT: normal bowel sounds, soft. ABSENT: guarding, mass, tenderness Extremities exam: Trace bilateral lower extremity pitting edema Neurological exam: PRESENT: alert, awake, oriented to person, place and time. Skin exam: PRESENT: dry, warm, Cardiovascular exam: PRESENT: +S1, +S2, systolic murmur GI/Abdominal exam: PRESENT: normal bowel sounds, soft. ABSENT: organomegaly, tenderness Results Laboratory Results: 04/03/20 05:28 04/05/20 06:48 04/05/20 06:48 Sodium 127.8 L Potassium 5.1 H Chloride 96 L Carbon Dioxide 21 L Anion Gap 11 BUN 35 H Creatinine 2.97 H Est GFR ( Amer) 26 L Glucose 88 Calcium 9.1 04/01/20 13:20 Pleural Fluid - Right Pleural Effusion Gram Stain - Final 04/01/20 13:20 Pleural Fluid - Right Pleural Effusion Body Fluid Culture - Final NO AEROBIC OR ANAEROBIC ORGANISMS RECOVERED 03/31/20 03/31/20 03/31/20 11:02 11:02 14:29 Creatine Kinase 39 L CK-MB (CK-2) 1.71 Troponin I 0.016 0.015 NT-Pro-B Natriuret Pep [id number] H Impressions: Chest/Abdomen CTA 03/31/20 10:57 IMPRESSION: No PE. Chronic right pleural effusion with suspected loculated component. Chronic consolidation in the right lower lobe, atelectasis versus pneumonia. Thoracentesis Ultrasound 04/01/20 16:26 IMPRESSION: SUCCESSFUL THORACENTESIS USING ULTRASOUND GUIDANCE. Chest X-Ray 04/05/20 00:00 IMPRESSION: Increasing bilateral pleural effusions right greater than left. Probable underlying vascular congestion. Basilar atelectasis or pneumonia cannot be excluded. Assessment & Plan - Diagnosis (1) CKD (chronic kidney disease) requiring chronic dialysis Is this a current diagnosis for this admission?: Yes Plan: Patient had an episode of acute kidney injury when he was hospitalized at [facility] after he had a PEA cardiac arrest in November 2019. While he was at [facility] his kidney function did not recover and was deemed to be ESRD. He was discharged in February and subsequently continue dialysis here at [facility]. His last dialysis was last Saturday. Last admission his 24-hour urine creatinine clearance showed 15 mL/min with 24-hour urine volume of 800 mL. I did decrease the frequency of his outpatient hemodialysis to just twice a week a week ago. We held his dialysis yesterday to see if he can actually take him off dialysis. His creatinine today slightly elevated than yesterday from 2.24-2.97. Is making urine though. Due to his shortness of breath and mild edema I will give him a trial of Bumex 1 mg IV x1 dose today. I will reevaluate his response and reevaluate his kidney function tomorrow to determine if he would need e dialysis treatment tomorrow. (2) Hypotension Qualifiers: Hypotension type: idiopathic hypotension Qualified Code(s): I95.0 - Idiopathic hypotension Is this a current diagnosis for this admission?: Yes Plan: No evidence of adrenal insufficiency. Continue midodrine. (3) Pleural effusion Is this a current diagnosis for this admission?: Yes Plan: He had reaccumulation of his right pleural effusion requiring repeat thoracentesis last Saturday, April 01. His most recent chest x-ray showed again possible developing reaccumulation again. Needs to be monitored. (4) Hyponatremia Is this a current diagnosis for this admission?: Yes Plan: Unchanged. (5) Atrial fibrillation Qualifiers: Atrial fibrillation type: unspecified Qualified Code(s): I48.91 - Unspecified atrial fibrillation Is this a current diagnosis for this admission?: Yes Plan: On anticoagulation. (6) H/O mitral valve replacement with mechanical valve Is this a current diagnosis for this admission?: Yes Plan: Awaiting for his INR to be therapeutic between 2.5-3.5. (7) Pneumonia Qualifiers: Pneumonia type: due to unspecified organism Laterality: right Lung location: lower lobe of lung Qualified Code(s): J18.9 - Pneumonia, unspecified organism Is this a current diagnosis for this admission?: Yes Plan: Was treated initially with ceftriaxone and azithromycin which is currently now discontinued per hospitalist service. - Time Time with patient: 15-25 minutes
[2020-04-05] MEDS: WARFARIN SODIUM 5 MG TABLET PO SCH (21:22)
[2020-04-05] MEDS: TRAZODONE HCL 50 MG TABLET PO SCH (21:23)
[2020-04-06 05:24] LABS: ABSOLUTE BASOPHILS # (AUTO) 0.2 10^3/uL (0.0-0.2); ABSOLUTE EOSINOPHILS # (AUTO) 0.1 10^3/uL (0.0-0.6); ABSOLUTE LYMPHOCYTES (AUTO) 0.9 10^3/uL (0.5-4.7); ABSOLUTE MONOCYTES (AUTO) 0.5 10^3/uL (0.1-1.4); ABSOLUTE NEUT (AUTO) 5.3 10^3/uL (1.7-8.2); BASOPHILS % (AUTO) 2.2 % (0-2); EOSINOPHILS % (AUTO) 1.6 % (0-6); HEMATOCRIT 37.8 % (37.9-51.0); HEMOGLOBIN 12.7 g/dL (13.5-17.0); LYMPHOCYTES % (AUTO) 12.5 % (13-45); MEAN CORPUSCULAR HEMOGLOBIN 29.6 pg (27.0-33.4); MEAN CORPUSCULAR HGB CONC 33.7 g/dL (32.0-36.0); MEAN CORPUSCULAR VOLUME 88 fl (80-97); MONOCYTES % (AUTO) 7.2 % (3-13); PLATELET COUNT 268 10^3/uL (150-450); RED CELL DISTRIBUTION WIDTH 17.6 % (11.5-14.0); SEGMENTED NEUTROPHILS % (AUTO) 76.5 % (42-78); TOTAL CELLS COUNTED % (AUTO) 100 %
[2020-04-06 05:29] LABS: INTERNATIONAL RATION (INR) 1.78; PROTHROMBIN TIME 20.9 SEC (11.4-15.4)
[2020-04-06 05:31] LABS: PARTIAL THROMBOPLASTIN TIME 64.3 SEC (23.5-35.8)
[2020-04-06 05:43] LABS: ALBUMIN 3.7 g/dL (3.5-5.0); ANION GAP 11 (5-19); BLOOD UREA NITROGEN 37 mg/dL (7-20); CALCIUM 9.5 mg/dL (8.4-10.2); CARBON DIOXIDE 23 mmol/L (22-30); CHLORIDE 96 mmol/L (98-107); GLUCOSE 98 mg/dL (75-110); PHOSPHORUS 5.2 mg/dL (2.5-4.5); POTASSIUM 5.1 mmol/L (3.6-5.0)
--- NOTE | 2020-04-06 08:32 | RADIOLOGY REPORT (SQ) ---
EXAM DESCRIPTION: CHEST 2 VIEWS IMAGES COMPLETED DATE/TIME: 04/06/2020 8:15 am REASON FOR STUDY: effusion COMPARISON: PA and lateral views of the chest from 04/05/2020. EXAM PARAMETERS: NUMBER OF VIEWS: Two views. TECHNIQUE: PA and lateral views of the chest were obtained. RADIATION DOSE: NA LIMITATIONS: None. FINDINGS: LUNGS AND PLEURA: Unchanged radiographic appearance of the lungs and pleura. MEDIASTINUM AND HILAR STRUCTURES: Stable mediastinal and hilar contours. HEART AND VASCULAR STRUCTURES: Stable cardiac silhouette. BONES: No acute findings. HARDWARE: The tip of the tunneled left IJ hemodialysis catheter projects at the level of the cavoatri al junction. The patient is status post median sternotomy in cardial fact replacement. There is re- demonstration of a medical record librarian that projects within the apex of the right ventricle. OTHER: No other finding. IMPRESSION: Unchanged radiographic appearance of the chest. TECHNICAL DOCUMENTATION: JOB ID: [id number] 2010 [employer]- All Rights Reserved Reading location - IP/workstation name: [email or web address]
[2020-04-06] MEDS: DOCUSATE SODIUM 100 MG CAPSULE PO SCH (10:57)
[2020-04-06] MEDS: FLUTICASONE NASAL SPRAY 50 MCG/SPRY 120 SPRAY/16 GM NASL SCH (10:57)
[2020-04-06] MEDS: METOPROLOL TARTRATE 50 MG TABLET PO SCH ×2 (11:02→23:49)
[2020-04-06] MEDS: BUMETANIDE 1 MG TABLET PO SCH (11:02)
[2020-04-06] MEDS: MIDODRINE HCL 5 MG TABLET PO SCH ×3 (11:02→17:44)
--- NOTE | 2020-04-06 11:15 | PDOC PROGRESS REPORT ---
Subjective Progress Note for:: 04/06/20 Subjective:: SHAHRZAD JAIN is a 59 year old male with the following active problems: 1. 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 Pulmonary hypertension 3. Congestive heart failure 4. Paroxysmal supraventricular tachycardia 5. End-stage renal disease on hemodialysis 6. PEA arrest 59-year-old male with the above history who was initially consulted to my partner, Dr. Shields, for atrial fibrillation. Dr. Shields is off the service therefore I am following the patient now. For details of his admission please see Dr. Shields's note. In summary, the patient has had multiple episodes of PEA in the past and was admitted back in February for rapid atrial fibrillation/flutter. At that time his rate was controlled and eventually discharged home. He was again admitted to the hospital secondary to rapid A. fib and hypotension on dialysis. For details of the current admission please see Dr. Shields's note. This morning the patient feels well and is eager to go home. He has no cardiac complaints. His telemetry shows a ventricularly paced rhythm. 04/06/2020: The patient had an uneventful night but continued to complain of dyspnea on exertion as he gets short of breath just walking from the bathroom to his bed. He continues to have lower extremity edema. His director education, Dr. Rush, gave him a dose of IV Bumex yesterday with good response. I discussed the case with her this morning and the plan continues to avoid dialysis as much as possible given his hypotension particularly when he responded fairly well to IV Bumex. His telemetry showed artifact and a paced rhythm. His INR continues to be subt herapeutic. Physical exam on 04/05/2020: GENERAL: Pleasant and conversational. Oriented x3 with normal mood. Not in acute distress. Well groomed and well developed. HEENT: Normocephalic, atraumatic. Pupils equal. Sclerae anicteric. Oropharynx moist. NECK: No JVD. No carotid bruits. LUNGS: Clear to auscultation bilaterally. Normal respiratory effort without the use of accessory muscles or intercostal retractions. CARDIOVASCULAR: Regular rate and rhythm, normal S1 and S2 without murmurs, rubs, or gallops. PMI not displaced. EXTREMITIES: 1-2+ pitting edema bilaterally, no cyanosis, no clubbing. +2 pulses femoral and pedal pulses bilaterally. MUSCULOSKELETAL: No chest tenderness to palpation. NEUROLOGIC: Nonfocal. No gross sensory or motor deficits bilateral upper or lower extremities. Reason For Visit: CHF EXACEATRIAL FIBRILLATION,BILATERAL PLEURAL Physical Exam Vital Signs: Temp Pulse Resp BP Pulse Ox 97.9 F 81 18 112/67 100 04/06/20 03:55 04/06/20 03:55 04/06/20 03:55 04/06/20 03:55 04/06/20 03:55 Intake & Output 04/04/20 04/05/20 04/06/20 06:59 06:59 06:59 Intake Total 806 542 7477 Output Total 792 005 1522 Balance 631 197 -179 Weight 58.7 kg 59.7 kg 60.2 kg Results Laboratory Results: 04/06/20 05:04 04/06/20 05:04 04/05/20 04/05/20 04/06/20 06:48 18:58 05:04 WBC 7.0 RBC 4.30 L Hgb 12.7 L Hct 37.8 L MCV 88 MCH 29.6 MCHC 33.7 RDW 17.6 H Plt Count 268 Seg Neutrophils % 76.5 Sodium 127.8 L 129.7 L Potassium 5.1 H 4.7 Chloride 96 L 94 L Carbon Dioxide 21 L 26 Anion Gap 11 10 BUN 35 H 35 H Creatinine 2.97 H 2.99 H Est GFR ( Amer) 26 L 26 L Glucose 88 108 Calcium 9.1 9.3 Phosphorus Magnesium Albumin 04/06/20 05:04 WBC RBC Hgb Hct MCV MCH MCHC RDW Plt Count Seg Neutrophils % Sodium 129.7 L Potassium 5.1 H Chloride 96 L Carbon Dioxide 23 Anion Gap 11 BUN 37 H Creatinine 3.03 H Est GFR ( Amer) 26 L Glucose 98 Calcium 9.5 Phosphorus 5.2 H Magnesium 2.4 H Albumin 3.7 03/31/20 16:37 Blood Blood Culture - Final NO GROWTH IN 5 DAYS 03/31/20 13:59 Blood Blood Culture - Final NO GROWTH IN 5 DAYS 04/01/20 13:20 Pleural Fluid - Right Pleural Effusion Gram Stain - Final 04/01/20 13:20 Pleural Fluid - Right Pleural Effusion Body Fluid Culture - Final NO AEROBIC OR ANAEROBIC ORGANISMS RECOVERED 03/31/20 03/31/20 03/31/20 11:02 11:02 14:29 Creatine Kinase 39 L CK-MB (CK-2) 1.71 Troponin I 0.016 0.015 NT-Pro-B Natriuret Pep 34231 H Impressions: Chest/Abdomen CTA 03/31/20 10:57 IMPRESSION: No PE. Chronic right pleural effusion with suspected loculated component. Chronic consolidation in the right lower lobe, atelectasis versus pneumonia. Thoracentesis Ultrasound 04/01/20 16:26 IMPRESSION: SUCCESSFUL THORACENTESIS USING ULTRASOUND GUIDANCE. Chest X-Ray 04/05/20 00:00 IMPRESSION: Increasing bilateral pleural effusions right greater than left. Probable underlying vascular congestion. Basilar atelectasis or pneumonia cannot be excluded. 04/06/20 05:04 04/06/20 05:04 MCV 88 fl (80-97) 04/06/20 05:04 MCH 29.6 pg (27.0-33.4) 04/06/20 05:04 MCHC 33.7 g/dL (32.0-36.0) 04/06/20 05:04 RDW 17.6 % (11.5-14.0) H 04/06/20 05:04 Seg Neutrophils % 76.5 % (42-78) 04/06/20 05:04 Chloride 96 mmol/L (98-107) L 04/06/20 05:04 Carbon Dioxide 23 mmol/L (22-30) 04/06/20 05:04 Anion Gap 11 (5-19) 04/06/20 05:04 Est GFR ( Amer) 26 (>60) L 04/06/20 05:04 Glucose 98 mg/dL (75-110) 04/06/20 05:04 Calcium 9.5 mg/dL (8.4-10.2) 04/06/20 05:04 Phosphorus 5.2 mg/dL (2.5-4.5) H 04/06/20 05:04 Magnesium 2.4 mg/dL (1.6-2.3) H 04/06/20 05:04 Total Bilirubin 1.1 mg/dL (0.2-1.3) 03/31/20 11:02 AST 29 U/L (17-59) 03/31/20 11:02 Alkaline Phosphatase 153 U/L (38-126) H 03/31/20 11:02 Total Protein 7.3 g/dL (6.3-8.2) 03/31/20 17:25 Albumin 3.7 g/dL (3.5-5.0) 04/06/20 05:04 TSH 6.67 uIU/mL (0.47-4.68) H 04/01/20 04:09 Free T4 1.60 ng/dL (0.78-2.19) 04/01/20 04:09 Free T3 pg/mL 1.72 pg/mL (2.77-5.27) L 04/01/20 04:09 Fluid Type PLEURAL 04/01/20 13:20 Fluid Source LUNG 04/01/20 13:20 Fluid Color YELLOW 04/01/20 13:20 Fluid Appearance CLEAR 04/01/20 13:20 Fluid Viscosity LIQUID 04/01/20 13:20 Fluid WBC 50 /uL 04/01/20 13:20 Fluid RBC 335 /uL 04/01/20 13:20 Fluid Total Protein 2.4 g/dL (.) 04/01/20 13:20 Fluid LDH 60 IU/L (.) 04/01/20 13:20 03/31/20 16:37 Blood Blood Culture - Final NO GROWTH IN 5 DAYS 03/31/20 13:59 Blood Blood Culture - Final NO GROWTH IN 5 DAYS 04/01/20 13:20 Pleural Fluid - Right Pleural Effusion Gram Stain - Final 04/01/20 13:20 Pleural Fluid - Right Pleural Effusion Body Fluid Culture - Final NO AEROBIC OR ANAEROBIC ORGANISMS RECOVERED 03/31/20 03/31/20 03/31/20 11:02 11:02 14:29 Creatine Kinase 39 L CK-MB (CK-2) 1.71 Troponin I 0.016 0.015 NT-Pro-B Natriuret Pep 69228 H Current Medication List Generic Name Dose Route Start Last Admin Trade Name Freq PRN Reason Stop Dose Admin Acetaminophen 650 mg 04/04/20 11:18 Tylenol 325 Mg Tablet PO 05/04/20 11:17 Q6HP PRN pain or fever Albuterol/Ipratropium 3 ml 03/31/20 16:18 Duoneb 3 Ml Ampul NEB 04/30/20 16:17 RTQ2HP PRN SHORTNESS OF BREATH Docusate Sodium 100 mg 04/05/20 10:00 04/05/20 09:18 Colace 100 Mg Capsule PO 05/05/20 09:59 Not Given DAILY ANTONELLA Fluticasone Propionate 2 spray 04/02/20 10:00 04/05/20 09:18 Flonase Nasal Erwinna 50 Mcg/Erwinna 16 Gm NASL 05/02/20 09:59 Not Given DAILY ANTONELLA Heparin Sodium (Porcine) 0 - 12,000 unit 04/01/20 15:00 04/03/20 07:35 Heparin Inj 1,000 Unit/Ml 10 Ml Vial IV 05/01/20 14:59 1,600 units .BOLUS PER PROTOCOL PRN Administration RESPOND TO aPTT VALUES Protocol Heparin Sodium/Dextrose 25,000 unit in 250 mls @ 0 mls/hr 04/01/20 20:00 04/05/20 07:28 Heparin Rtu 25,000 Unit/250 Ml D5w Premix IV 05/01/20 19:59 6.57 ml/hr CONTINUOUS PRN 6.57 mls/hr THIS MED IS NOT "PRN" Administration Protocol Titrate Metoprolol Tartrate 50 mg 03/31/20 17:00 04/05/20 21:22 Lopressor 50 Mg Tablet PO 04/30/20 16:59 50 mg Q12 ANTONELLA Administration Metoprolol Tartrate 2.5 mg 04/01/20 15:02 Lopressor Inj/Pf 5 Mg/5 Ml Sdv IV 05/01/20 15:01 Q6HP PRN GIVE FOR HR > [] Midodrine 10 mg 04/02/20 19:00 04/05/20 17:02 Proamatine 5 Mg Tablet PO 05/02/20 18:59 10 mg TID ANTONELLA Administration Ondansetron HCl 4 mg 04/04/20 11:30 04/06/20 02:23 Zofran Odt 4 Mg Tablet PO 04/30/20 16:17 4 mg Q4HP PRN Administration FOR NAUSEA/VOMITING Oxycodone HCl 5 mg 04/01/20 14:48 04/04/20 01:34 Oxy-Ir 5 Mg Tablet PO 04/08/20 14:47 5 mg Q6HP PRN Administration FOR PAIN SCALE 4-5 Trazodone HCl 50 mg 04/01/20 22:00 04/05/20 21:23 Desyrel 50 Mg Tablet PO 05/01/20 21:59 50 mg QHS ANTONELLA Administration Warfarin Sodium 5 mg 04/04/20 22:00 04/05/20 21:22 Coumadin 5 Mg Tablet PO 05/04/20 21:59 5 mg QHS ANTONELLA Administration Discontinued Medications Generic Name Dose Route Start Last Admin Trade Name Subhash PRN Reason Stop Dose Admin Acetaminophen 650 mg 03/31/20 16:18 Tylenol 325 Mg Tablet PO 04/30/20 16:17 Q4HP PRN pain or fever Azithromycin 500 mg 03/31/20 13:39 03/31/20 14:46 Zithromax Inj 500 Mg Vial IV 03/31/20 13:40 500 mg IVBAG (ED) ONE Administration Bumetanide 1 mg 04/05/20 16:00 04/05/20 16:50 Bumex Inj/Pf 1 Mg/4 Ml Sdv IV 04/05/20 16:01 1 mg ONCE ONE Administration Cosyntropin 0.25 mg 04/02/20 13:00 04/02/20 13:07 Cortrosyn Inj 0.25 Mg Vial IV 04/02/20 13:01 0.25 mg DALE ONE Administration Docusate Sodium 100 mg 04/01/20 10:00 04/04/20 10:02 Colace Udc 100 Mg/10 Ml Oral Soln PO 05/01/20 09:59 Not Given DAILY ANTONELLA Furosemide 40 mg 03/31/20 13:44 03/31/20 14:54 Lasix Inj/Pf 40 Mg/4 Ml Sdv IV 03/31/20 13:45 40 mg NOW ONE Administration Furosemide 20 mg 03/31/20 22:00 04/01/20 15:51 Lasix Inj/Pf 20 Mg/2 Ml Sdv IV 04/30/20 21:59 Not Given Q12 ANTONELLA Furosemide 40 mg 04/02/20 10:00 04/02/20 10:08 Lasix 40 Mg Tablet PO 05/02/20 09:59 Not Given DAILY ANTONELLA Furosemide 20 mg 04/03/20 13:47 04/03/20 15:12 Lasix 20 Mg Tablet PO 04/03/20 13:48 20 mg NOW ONE Administration Furosemide 20 mg 04/05/20 10:00 Lasix 20 Mg Tablet PO 05/05/20 09:59 DAILY ANTONELLA Furosemide 20 mg 04/05/20 10:00 Lasix 20 Mg Tablet PO 05/05/20 09:59 DAILY ANTONELLA Heparin Sodium (Porcine) 5,000 unit 04/02/20 10:00 Heparin Inj 5,000 Units/Ml 1 Ml Vial SUBCUT 05/02/20 09:59 Q8 ANTONELLA Heparin Sodium (Porcine) 4,600 unit 04/01/20 05:00 04/01/20 11:14 Heparin Inj 1,000 Unit/Ml 10 Ml Vial IV 04/01/20 23:59 3,600 units .SPLIT B/N CATHETERS PRN Administration THIS MED IS NOT "PRN" Heparin Sodium (Porcine) 3,600 unit 04/05/20 05:00 Heparin Inj 1,000 Unit/Ml 10 Ml Vial IV 04/05/20 23:59 .SPLIT B/N CATHETERS PRN THIS MED IS NOT "PRN" Ceftriaxone Sodium/Dextrose 1 gm in 50 mls @ 100 mls/hr 03/31/20 14:00 03/31/20 14:34 Rocephin Rtu 1 Gm/D5w 50 Ml Premix IV 03/31/20 14:29 Infused NOW ONE Infusion Diltiazem HCl 125 mg in 125 mls @ 0 mls/hr 03/31/20 18:37 03/31/20 18:48 Cardizem Rtu Inj 125 Mg-D5w 125 Ml Premix IV 04/30/20 18:36 2.5 mls/hr CONTINUOUS PRN 2.5 mls/hr THIS MED IS NOT "PRN" Administration Protocol Titrate Sodium Chloride 1,000 mls @ 0 mls/hr 04/01/20 05:00 Nacl 0.9% 1000 Ml Iv Soln IV 04/01/20 23:59 .DIALYSIS PRN THIS MED IS NOT "PRN" As Directed Sodium Chloride 500 mls @ 0 mls/hr 04/02/20 15:50 04/02/20 17:18 Nacl 0.9% 1000 Ml Iv Soln IV 04/02/20 15:51 Infused BOLUS ONE Infusion Wide Open Lactulose 200 gm 04/04/20 22:00 04/04/20 21:43 Cephulac Syrup 20 Gm/30 Ml Udcup [place] 04/04/20 22:01 Not Given NOW ONE Metoprolol Tartrate 5 mg 03/31/20 11:07 03/31/20 11:24 Lopressor Inj/Pf 5 Mg/5 Ml Sdv IV 03/31/20 11:08 5 mg NOW ONE Administration Midodrine 5 mg 03/31/20 15:58 03/31/20 16:27 Proamatine 5 Mg Tablet PO 03/31/20 15:59 5 mg NOW ONE Administration Midodrine 5 mg 03/31/20 18:00 04/02/20 13:09 Proamatine 5 Mg Tablet PO 04/30/20 17:59 5 mg TID ANTONELLA Administration Midodrine 5 mg 04/01/20 10:47 04/01/20 14:44 Proamatine 5 Mg Tablet PO 04/01/20 10:48 5 mg NOW ONE Administration Midodrine 5 mg 04/02/20 16:30 04/02/20 16:10 Proamatine 5 Mg Tablet PO 04/02/20 16:31 5 mg NOW ONE Administration Ondansetron HCl 4 mg 03/31/20 10:57 03/31/20 11:24 Zofran Inj/Pf 4 Mg/2 Ml Sdv IV 03/31/20 10:58 4 mg NOW ONE Administration Ondansetron HCl 4 mg 03/31/20 16:18 Zofran Odt 4 Mg Tablet PO 04/30/20 16:17 Q4HP PRN FOR NAUSEA/VOMITING Ondansetron HCl 4 mg 03/31/20 16:18 Zofran Inj/Pf 4 Mg/2 Ml Sdv IV 04/30/20 16:17 Q4HP PRN FOR NAUSEA/VOMITING Warfarin Sodium 2.5 mg 04/01/20 22:00 04/01/20 22:01 Coumadin 2.5 Mg Tablet PO 05/01/20 21:59 2.5 mg QHS ANTONELLA Administration Warfarin Sodium 3 mg 04/02/20 22:00 Coumadin 2.5 Mg Tablet PO 05/02/20 21:59 QHS ANTONELLA Warfarin Sodium 3 mg 04/02/20 22:00 04/02/20 22:21 Coumadin 3 Mg Tablet PO 05/02/20 21:59 3 mg QHS ANTONELLA Administration Warfarin Sodium 4 mg 04/03/20 22:00 04/03/20 21:05 Coumadin 3 Mg Tablet PO 05/03/20 21:59 4 mg QHS ANTONELLA Administration Assessment & Plan - Diagnosis (1) Atrial fibrillation Qualifiers: Atrial fibrillation type: unspecified Qualified Code(s): I48.91 - Unspecified atrial fibrillation Is this a current diagnosis for this admission?: Yes Plan: His atrial fibrillation is well controlled at this point and the primary team is working on getting his INR to therapeutic levels. Recommendations: -Continue with current medical management. -Continue to follow INR. (2) H/O mitral valve replacement with mechanical valve Is this a current diagnosis for this admission?: Yes Plan: He has no symptoms related to his mitral valve replacement. His INR continues to be subtherapeutic, he continues to be on heparin drip. Recommendations: -INR goal between 2.5 and 3.5. -We will defer further management to primary team. (3) CHF exacerbation Qualifiers: Heart failure type: unspecified Qualified Code(s): I50.9 - Heart failure, unspecified Is this a current diagnosis for this admission?: Yes Plan: The patient continues to have dyspnea on exertion this morning. His fluid balance since admission is close to 4 L therefore he is fluid overloaded and symptomatic. He had dialysis last Saturday. I discussed the case this morning with his director education, Dr. Rush, who actually provided Bumex IV yesterday to the patient with adequate response. The plan is to continue with diuretics and avoid hemodialysis given his low blood pressure and other comorbidities. At this point I will sign off the case as nephrology is currently managing his fluid balance. I appreciate Dr. Rush's input and assistance. . Recommendations: -Further fluid management by nephrology team. -Restrict fluid intake to 1500 cc daily. -Low sodium diet, less than 1500 mg daily. -Strict intake and output. -Daily weights. -We will sign off the case for now, please reconsult if necessary. (4) CKD (chronic kidney disease) requiring chronic dialysis Is this a current diagnosis for this admission?: Yes Plan: He is currently followed by nephrology.
--- NOTE | 2020-04-06 11:18 | PDOC PROGRESS REPORT ---
Subjective Progress Note for:: 04/06/20 Subjective:: 04/05/2020: Patient was seen and examined. He is in no acute distress. INR is 1.62 today. 04/06/2020: Patient was seen and examined. No changes in clinical status. Chest x-ray stable. INR today is 1.78. Physical Exam General appearance: PRESENT: no acute distress, cooperative Head exam: PRESENT: atraumatic, normocephalic Eye exam: PRESENT: EOMI, PERRLA Mouth exam: PRESENT: neck supple, tongue midline Neck exam: ABSENT: meningismus, tenderness Respiratory exam: PRESENT: decreased breath sounds - Right lung Cardiovascular exam: PRESENT: RRR GI/Abdominal exam: PRESENT: normal bowel sounds. ABSENT: tenderness Rectal exam: PRESENT: deferred Extremities exam: ABSENT: joint swelling Neurological exam: PRESENT: alert, awake, oriented to person, oriented to place, oriented to time, oriented to situation Psychiatric exam: PRESENT: anxious Reason For Visit: CHF EXACEATRIAL FIBRILLATION,BILATERAL PLEURAL Physical Exam Vital Signs: Temp Pulse Resp BP Pulse Ox 97.9 F 91 18 112/67 100 04/06/20 03:55 04/06/20 07:00 04/06/20 03:55 04/06/20 03:55 04/06/20 03:55 Intake & Output 04/05/20 04/06/20 04/07/20 06:59 06:59 06:59 Intake Total 797 1166 Output Total 600 1345 Balance 197 -179 Weight 131 lb 9.855 oz 132 lb 11.492 oz Results Laboratory Results: 04/06/20 05:04 04/06/20 05:04 04/05/20 04/06/20 04/06/20 18:58 05:04 05:04 WBC 7.0 RBC 4.30 L Hgb 12.7 L Hct 37.8 L MCV 88 MCH 29.6 MCHC 33.7 RDW 17.6 H Plt Count 268 Seg Neutrophils % 76.5 Sodium 129.7 L 129.7 L Potassium 4.7 5.1 H Chloride 94 L 96 L Carbon Dioxide 26 23 Anion Gap 10 11 BUN 35 H 37 H Creatinine 2.99 H 3.03 H Est GFR ( Amer) 26 L 26 L Glucose 108 98 Calcium 9.3 9.5 Phosphorus 5.2 H Magnesium 2.4 H Albumin 3.7 03/31/20 16:37 Blood Blood Culture - Final NO GROWTH IN 5 DAYS 03/31/20 13:59 Blood Blood Culture - Final NO GROWTH IN 5 DAYS 04/01/20 13:20 Pleural Fluid - Right Pleural Effusion Gram Stain - Final 04/01/20 13:20 Pleural Fluid - Right Pleural Effusion Body Fluid Culture - Final NO AEROBIC OR ANAEROBIC ORGANISMS RECOVERED 03/31/20 03/31/20 03/31/20 11:02 11:02 14:29 Creatine Kinase 39 L CK-MB (CK-2) 1.71 Troponin I 0.016 0.015 NT-Pro-B Natriuret Pep [id number] H Impressions: Chest/Abdomen CTA 03/31/20 10:57 IMPRESSION: No PE. Chronic right pleural effusion with suspected loculated component. Chronic consolidation in the right lower lobe, atelectasis versus pneumonia. Thoracentesis Ultrasound 04/01/20 16:26 IMPRESSION: SUCCESSFUL THORACENTESIS USING ULTRASOUND GUIDANCE. Chest X-Ray 04/06/20 05:00 IMPRESSION: Unchanged radiographic appearance of the chest. Assessment and Plan - Diagnosis (1) H/O mitral valve replacement with mechanical valve Is this a current diagnosis for this admission?: Yes Plan: Subtherapeutic INR still. Goal INR of 2.5-3.5 given mechanical valve and A. fib. Continue Coumadin and monitor INR Probably would benefit from Home care home to help with medication admini stration to ensure compliance upon discharge. Patient should follow-up with CT surgery Dr. Robbins and oil deliverer Dr. Papi Lou both at [place] in light of his recent MVR in 10/2019 and paroxysms of dyspnea and pleural effusions since then. (2) Persistent atrial fibrillation with rapid ventricular response Is this a current diagnosis for this admission?: Yes Plan: Heart rate remains controlled on Lopressor 50 mg every 12 hours. (3) Hypotension Qualifiers: Qualified Code(s): I95.0 - Idiopathic hypotension Is this a current diagnosis for this admission?: Yes Plan: Idiopathic at this point. Not septic. No evidence of cardiogenic shock. Not hypovolemic. A.m. cortisol was normal [but low normal] however cosyntropin test showed adequate response making adrenal insufficiency unlikely. ACTH low normal. Continue midodrine 10 mg TID. (4) Pleural effusion Is this a current diagnosis for this admission?: Yes Plan: Re-accumulated right-sided pleural effusion since thoracentesis during last recent admission. Possible contributing factor could be chronic diastolic heart failure. Also noncompliant with medications. Status post thoracentesis 0 with 1100 cc of transudate fluid removed. Incentive spirometer. Lasix 20 mg daily on nondialysis days. (5) CKD (chronic kidney disease) requiring chronic dialysis Is this a current diagnosis for this admission?: Yes Plan: Nephrology consulted for management of dialysis. (6) Respiratory failure with hypoxia Qualifiers: Qualified Code(s): J96.01 - Acute respiratory failure with hypoxia Is this a current diagnosis for this admission?: Yes Plan: Hypoxia resolved. Patient tolerating on room air for past several days now. (7) COPD (chronic obstructive pulmonary disease) Qualifiers: Qualified Code(s): J44.9 - Chronic obstructive pulmonary disease, unspecified Is this a current diagnosis for this admission?: Yes Plan: Stable. Nebs as needed.
[2020-04-06 11:53] LABS: INTERNATIONAL RATION (INR) 1.96; PROTHROMBIN TIME 22.6 SEC (11.4-15.4)
[2020-04-06] MEDS: HEPARIN SODIUM,PORCINE/D5W 25,000 UNIT/250 ML RTUINJ IV PRN (17:44)
[2020-04-06] MEDS: WARFARIN SODIUM 5 MG TABLET PO SCH (22:25)
[2020-04-06] MEDS: TRAZODONE HCL 50 MG TABLET PO SCH (22:25)
--- NOTE | 2020-04-06 22:29 | PDOC PROGRESS REPORT ---
Subjective Progress Note for:: 04/06/20 Subjective:: Patient appears to be clinically stable. He states that he is still short of breath but remains unchanged meaning not worse nor better. He passed a good amount of urine output of about 1345 mL yesterday with Bumex 1 mg IV. He denies any other complaints. Reason For Visit: CHF EXACEATRIAL FIBRILLATION,BILATERAL PLEURAL Physical Exam Vital Signs: Temp Pulse Resp BP Pulse Ox 97.9 F 81 18 112/67 100 04/06/20 03:55 04/06/20 03:55 04/06/20 03:55 04/06/20 03:55 04/06/20 03:55 Intake & Output 04/05/20 04/06/20 04/07/20 06:59 06:59 06:59 Intake Total 797 1166 Output Total 600 1345 Balance 197 -179 Weight 59.7 kg 60.2 kg Exam: General appearance: PRESENT: no acute distress, cooperative, well-developed, well-nourished Head exam: PRESENT: atraumatic, normocephalic Eye exam: PRESENT: conjunctiva slightly pale, PERRLA. ABSENT: scleral icterus Neck exam: ABSENT: JVD Respiratory exam: PRESENT: Diminished breath sounds. ABSENT: crackles, rales, rhonchi, unlabored, wheezes Cardiovascular exam: PRESENT: Regular rate rhythm -+S1, +S2. ABSENT: diastolic murmur, systolic murmur GI/Abdominal exam: PRESENT: normal bowel sounds, soft. ABSENT: guarding, mass, tenderness Extremities exam: Bilateral unchanged trace edema Neurological exam: PRESENT: alert, awake, oriented to person, place and time. Skin exam: PRESENT: dry, warm, Cardiovascular exam: PRESENT: +S1, +S2, systolic murmur GI/Abdominal exam: PRESENT: normal bowel sounds, soft. ABSENT: organomegaly, tenderness Results Laboratory Results: 04/06/20 05:04 04/06/20 05:04 04/05/20 04/05/20 04/06/20 06:48 18:58 05:04 WBC 7.0 RBC 4.30 L Hgb 12.7 L Hct 37.8 L MCV 88 MCH 29.6 MCHC 33.7 RDW 17.6 H Plt Count 268 Seg Neutrophils % 76.5 Sodium 127.8 L 129.7 L Potassium 5.1 H 4.7 Chloride 96 L 94 L Carbon Dioxide 21 L 26 Anion Gap 11 10 BUN 35 H 35 H Creatinine 2.97 H 2.99 H Est GFR ( Amer) 26 L 26 L Glucose 88 108 Calcium 9.1 9.3 Phosphorus Magnesium Albumin 04/06/20 05:04 WBC RBC Hgb Hct MCV MCH MCHC RDW Plt Count Seg Neutrophils % Sodium 129.7 L Potassium 5.1 H Chloride 96 L Carbon Dioxide 23 Anion Gap 11 BUN 37 H Creatinine 3.03 H Est GFR ( Amer) 26 L Glucose 98 Calcium 9.5 Phosphorus 5.2 H Magnesium 2.4 H Albumin 3.7 03/31/20 16:37 Blood Blood Culture - Final NO GROWTH IN 5 DAYS 03/31/20 13:59 Blood Blood Culture - Final NO GROWTH IN 5 DAYS 04/01/20 13:20 Pleural Fluid - Right Pleural Effusion Gram Stain - Final 04/01/20 13:20 Pleural Fluid - Right Pleural Effusion Body Fluid Culture - Final NO AEROBIC OR ANAEROBIC ORGANISMS RECOVERED 03/31/20 03/31/20 03/31/20 11:02 11:02 14:29 Creatine Kinase 39 L CK-MB (CK-2) 1.71 Troponin I 0.016 0.015 NT-Pro-B Natriuret Pep [id number] H Impressions: Chest/Abdomen CTA 03/31/20 10:57 IMPRESSION: No PE. Chronic right pleural effusion with suspected loculated component. Chronic consolidation in the right lower lobe, atelectasis versus pneumonia. Thoracentesis Ultrasound 04/01/20 16:26 IMPRESSION: SUCCESSFUL THORACENTESIS USING ULTRASOUND GUIDANCE. Chest X-Ray 04/05/20 00:00 IMPRESSION: Increasing bilateral pleural effusions right greater than left. Probable underlying vascular congestion. Basilar atelectasis or pneumonia ca nnot be excluded. Assessment & Plan - Diagnosis (1) CKD (chronic kidney disease) requiring chronic dialysis Is this a current diagnosis for this admission?: Yes Plan: Patient had an episode of acute kidney injury when he was hospitalized at [facility] after he had a PEA cardiac arrest in November 2019. While he was at [facility] his kidney function did not recover and was deemed to be ESRD. He was discharged in February and subsequently continue dialysis here at [facility]. His last dialysis was last Saturday, 04/01. Last admission his 24-hour urine creatinine clearance showed 15 mL/min with 24-hour urine volume of 800 mL. I did decrease the frequency of his outpatient hemodialysis to just twice a week a week ago. We held his dialysis 2 days ago, last Saturday to see if we can actually take him off dialysis. His creatinine continues to slightly increase from 2.24-3.03. He is making urine with good response to the IV Bumex with increased urine output. I will hold his dialysis again today. I will start him on maintenance Bumex 1 mg p.o. daily. I expect his kidney function to stabilize at a certain point hopefully. However if it continues to rise and starts having other c omplications biochemically then we may need to reinitiate hemodialysis. We will continue to monitor closely while he is here in the hospital. (2) Hypotension Qualifiers: Hypotension type: idiopathic hypotension Qualified Code(s): I95.0 - Idiopathic hypotension Is this a current diagnosis for this admission?: Yes Plan: No evidence of adrenal insufficiency. Continue midodrine. (3) Pleural effusion Is this a current diagnosis for this admission?: Yes Plan: He had reaccumulation of his right pleural effusion requiring repeat thoracentesis last Saturday, April 01. Chest x-ray was repeated again today which shows unchanged findings compared to chest x-ray 2 days ago. He does continue to have the bilateral pleural effusion more on the right side though. I am wondering if there are is some loculated fluid that still needs some therapeutic thoracentesis while here in the hospital. Defer to the hospitalist. (4) Hyponatremia Is this a current diagnosis for this admission?: Yes Plan: Unchanged. (5) Atrial fibrillation Qualifiers: Atrial fibrillation type: unspecified Qualified Code(s): I48.91 - Unspecified atrial fibrillation Is this a current diagnosis for this admission?: Yes Plan: On anticoagulation. (6) H/O mitral valve replacement with mechanical valve Is this a current diagnosis for this admission?: Yes Plan: Awaiting for his INR to be therapeutic between 2.5-3.5. (7) Pneumonia Qualifiers: Pneumonia type: due to unspecified organism Laterality: right Lung location: lower lobe of lung Qualified Code(s): J18.9 - Pneumonia, unspecified organism Is this a current diagnosis for this admission?: Yes Plan: Was treated initially with ceftriaxone and azithromycin which is currently now discontinued per hospitalist service. - Time Time with patient: 15-25 minutes
[2020-04-07 06:51] LABS: INTERNATIONAL RATION (INR) 2.39; PROTHROMBIN TIME 26.5 SEC (11.4-15.4)
[2020-04-07 06:52] LABS: PARTIAL THROMBOPLASTIN TIME 66.4 SEC (23.5-35.8)
[2020-04-07 07:03] LABS: ANION GAP 9 (5-19); BLOOD UREA NITROGEN 40 mg/dL (7-20); CALCIUM 9.4 mg/dL (8.4-10.2); CARBON DIOXIDE 24 mmol/L (22-30); CHLORIDE 96 mmol/L (98-107); GLUCOSE 83 mg/dL (75-110); POTASSIUM 5.3 mmol/L (3.6-5.0)
[2020-04-07] MEDS: FLUTICASONE NASAL SPRAY 50 MCG/SPRY 120 SPRAY/16 GM NASL SCH (09:45)
[2020-04-07] MEDS: DOCUSATE SODIUM 100 MG CAPSULE PO SCH (09:45)
[2020-04-07] MEDS: BUMETANIDE 1 MG TABLET PO SCH (10:01)
[2020-04-07] MEDS: MIDODRINE HCL 5 MG TABLET PO SCH ×3 (10:02→17:53)
[2020-04-07] MEDS: METOPROLOL TARTRATE 50 MG TABLET PO SCH ×2 (10:02→22:58)
--- NOTE | 2020-04-07 11:06 | PDOC PROGRESS REPORT ---
Subjective Progress Note for:: 04/07/20 Subjective:: 04/05/2020: Patient was seen and examined. He is in no acute distress. INR is 1.62 today. 04/06/2020: Patient was seen and examined. No changes in clinical status. Chest x-ray stable. INR today is 1.78. 04/07/2020: Patient was seen and examined. Stable. INR 2.39. Physical Exam General appearance: PRESENT: no acute distress, cooperative Head exam: PRESENT: atraumatic, normocephalic Eye exam: PRESENT: EOMI, PERRLA Mouth exam: PRESENT: neck supple, tongue midline Neck exam: ABSENT: meningismus, tenderness Respiratory exam: PRESENT: decreased breath sounds - Right lung Cardiovascular exam: PRESENT: RRR GI/Abdominal exam: PRESENT: normal bowel sounds. ABSENT: tenderness Rectal exam: PRESENT: deferred Extremities exam: ABSENT: joint swelling Neurological exam: PRESENT: alert, awake, oriented to person, oriented to place, oriented to time, oriented to situation Psychiatric exam: PRESENT: anxious Reason For Visit: CHF EXACEATRIAL FIBRILLATION,BILATERAL PLEURAL Physical Exam Vital Signs: Temp Pulse Resp BP Pulse Ox 97.6 F 92 14 93/70 L 97 04/07/20 08:46 04/07/20 08:46 04/07/20 08:46 04/07/20 08:46 04/07/20 08:46 Intake & Output 04/06/20 04/07/20 04/08/20 06:59 06:59 06:59 Intake Total 1166 2589 Output Total 1345 1275 Balance -179 1314 Weight 132 lb 11.492 oz 129 lb 13.636 oz Results Laboratory Results: 04/06/20 05:04 04/07/20 05:58 04/07/20 05:58 Sodium 129.1 L Potassium 5.3 H Chloride 96 L Carbon Dioxide 24 Anion Gap 9 BUN 40 H Creatinine 3.01 H Est GFR ( Amer) 26 L Glucose 83 Calcium 9.4 03/31/20 03/31/20 03/31/20 11:02 11:02 14:29 Creatine Kinase 39 L CK-MB (CK-2) 1.71 Troponin I 0.016 0.015 NT-Pro-B Natriuret Pep [id number] H Impressions: Chest/Abdomen CTA 03/31/20 10:57 IMPRESSION: No PE. Chronic right pleural effusion with suspected loculated component. Chronic consolidation in the right lower lobe, atelectasis versus pneumonia. Thoracentesis Ultrasound 04/01/20 16:26 IMPRESSION: SUCCESSFUL THORACENTESIS USING ULTRASOUND GUIDANCE. Chest X-Ray 04/06/20 05:00 IMPRESSION: Unchanged radiographic appearance of the chest. Assessment and Plan - Diagnosis (1) H/O mitral valve replacement with mechanical valve Is this a current diagnosis for this admission?: Yes Plan: Subtherapeutic INR still. Goal INR of 2.5-3.5 given mechanical valve and A. fib. Continue Coumadin and monitor INR Probably would benefit from Home fpc to help with medication administration to ensure compliance upon discharge. Patient should follow-up with CT surgery Dr. Robbins and wooden barrel mechanic Dr. Papi Lou both at [place] in light of his recent MVR in 10/2019 and paroxysms of dyspnea and pleural effusions since then. (2) Persistent atrial fibrillation with rapid ventricular response Is this a current diagnosis for this admission?: Yes Plan: Heart rate remains controlled on Lopressor 50 mg every 12 hours. (3) Hypotension Qualifiers: Hypotension type: idiopathic hypotension Qualified Code(s): I95.0 - Idiopathic hypotension Is this a current diagnosis for this admission?: Yes Plan: Idiopathic at this point. Not septic. No evidence of cardiogenic shock. Not hypovolemic. A.m. cortisol was normal [but low normal] however cosyntropin test showed adequate response making adrenal insufficiency unlikely. ACTH low normal. Continue midodrine 10 mg TID. (4) Pleural effusion Is this a current diagnosis for this admission?: Yes Plan: Re-accumulated right-sided pleural effusion since thoracentesis during last recent admission. Possible contributing factor could be chronic diastolic heart failure. Also noncompliant with medications. Status post thoracentesis 04/01/2020 with 1100 cc of transudate fluid removed. Incentive spirometer. continue bumex daily. (5) CKD (chronic kidney disease) requiring chronic dialysis Is this a current diagnosis for this admission?: Yes Plan: Nephrology consulted for management of dialysis. (6) Respiratory failure with hypoxia Qualifiers: Chronicity: acute Qualified Code(s): J96.01 - Acute respiratory failure with hypoxia Is this a current diagnosis for this admission?: Yes Plan: Hypoxia resolved. Patient tolerating on room air for past several days now. (7) COPD (chronic obstructive pulmonary disease) Qualifiers: COPD type: unspecified COPD Qualified Code(s): J44.9 - Chronic obstructive pulmonary disease, unspecified Is this a current diagnosis for this admission?: Yes Plan: Stable. Nebs as needed.
--- NOTE | 2020-04-07 20:12 | PDOC PROGRESS REPORT ---
Subjective Progress Note for:: 04/07/20 Subjective:: Patient remains to be clinically stable. He states that he still short of breath but not more than usual. He continues to pass optimal amount of urine output since I started him on Bumex. He seems to be drinking a little bit more fluids than he should. I counseled him regarding this. He has no other new complaints. Reason For Visit: CHF EXACEATRIAL FIBRILLATION,BILATERAL PLEURAL Physical Exam Vital Signs: Temp Pulse Resp BP Pulse Ox 97.6 F 92 14 93/70 L 97 04/07/20 08:46 04/07/20 08:46 04/07/20 08:46 04/07/20 08:46 04/07/20 08:46 Intake & Output 04/06/20 04/07/20 04/08/20 06:59 06:59 06:59 Intake Total 1166 2589 Output Total 1345 1275 Balance -179 1314 Weight 60.2 kg 58.9 kg Exam: General appearance: PRESENT: no acute distress, cooperative, well-developed, well-nourished Head exam: PRESENT: atraumatic, normocephalic Eye exam: PRESENT: conjunctiva slightly pale, PERRLA. ABSENT: scleral icterus Neck exam: ABSENT: JVD Respiratory exam: PRESENT: Diminished breath sounds. ABSENT: crackles, rales, rhonchi, unlabored, wheezes Cardiovascular exam: PRESENT: Regular rate rhythm -+S1, +S2. ABSENT: diastolic murmur, systolic murmur GI/Abdominal exam: PRESENT: normal bowel sounds, soft. ABSENT: guarding, mass, tenderness Extremities exam: Unchanged bilateral grade 1 pitting edema Neurological exam: PRESENT: alert, awake, oriented to person, place and time. Skin exam: PRESENT: dry, warm, Cardiovascular exam: PRESENT: +S1, +S2, systolic murmur GI/Abdominal exam: PRESENT: normal bowel sounds, soft. ABSENT: organomegaly, tenderness Results Laboratory Results: 04/06/20 05:04 04/07/20 05:58 04/07/20 05:58 Sodium 129.1 L Potassium 5.3 H Chloride 96 L Carbon Dioxide 24 Anion Gap 9 BUN 40 H Creatinine 3.01 H Est GFR ( Amer) 26 L Glucose 83 Calcium 9.4 03/31/20 03/31/20 03/31/20 11:02 11:02 14:29 Creatine Kinase 39 L CK-MB (CK-2) 1.71 Troponin I 0.016 0.015 NT-Pro-B Natriuret Pep [id number] H Impressions: Chest/Abdomen CTA 03/31/20 10:57 IMPRESSION: No PE. Chronic right pleural effusion with suspected loculated component. Chronic consolidation in the right lower lobe, atelectasis versus pneumonia. Thoracentesis Ultrasound 04/01/20 16:26 IMPRESSION: SUCCESSFUL THORACENTESIS USING ULTRASOUND GUIDANCE. Chest X-Ray 04/06/20 05:00 IMPRESSION: Unchanged radiographic appearance of the chest. Assessment & Plan - Diagnosis (1) CKD (chronic kidney disease) requiring chronic dialysis Is this a current diagnosis for this admission?: Yes Plan: Patient had an episode of acute kidney injury when he was hospitalized at [place] after he had a PEA cardiac arrest in November 2019. While he was at [place] his kidney function did not recover and was deemed to be ESRD. He was discharged in February and subsequently continue dialysis here at [facility]. His last dialysis was last Saturday, 04/01. Last admission his 24-hour urine creatinine clearance showed 15 mL/min with 24-hour urine volume of 800 mL. I did decrease the frequency of his outpatient hemodialysis to just twice a week a week ago. We held his dialysis 2 days ago, last Saturday to see if we can actually take him off dialysis. His creatinine seems to be plateauing from 2.24-3.01. He is making urine with good response to the Bumex with increased urine output. I am hopeful that the patient can be taken off dialysis. I will reevaluate again tomorrow and if he continues to be stable I think he can be taken off dialysis b ut needs to be monitored as an outpatient very carefully. I told the patient that if he gets discharged he needs to have a BMP checked weekly and this could be drawn by the home health nurse. I will also need to see him sooner than later. Once we establish that he is really stable without dialysis for several weeks then I will have his PermCath removed at that point as an outpatient. Patient understood. (2) Hypotension Qualifiers: Hypotension type: idiopathic hypotension Qualified Code(s): I95.0 - Idiopathic hypotension Is this a current diagnosis for this admission?: Yes Plan: No evidence of adrenal insufficiency. Continue midodrine. (3) Pleural effusion Is this a current diagnosis for this admission?: Yes Plan: He had reaccumulation of his right pleural effusion requiring repeat thorac entesis last Saturday, April 01. Chest x-ray was repeated again today which shows unchanged findings compared to chest x-ray 2 days ago. He does continue to have the bilateral pleural effusion more on the right side though. I am wondering if there are is some loculated fluid that still needs some therapeutic thoracentesis while here in the hospital. Defer to the hospitalist. (4) Hyperkalemia Is this a current diagnosis for this admission?: Yes Plan: Mild. Advised low potassium diet. (5) Hyponatremia Is this a current diagnosis for this admission?: Yes Plan: Unchanged. Oral fluid restriction to only 1500 mL daily. (6) Atrial fibrillation Qualifiers: Atrial fibrillation type: unspecified Qualified Code(s): I48.91 - Unspecified atrial fibrillation Is this a current diagnosis for this admission?: Yes Plan: On anticoagulation. (7) H/O mitral valve replacement with mechanical valve Is this a current diagnosis for this admission?: Yes Plan: Awaiting for his INR to be therapeutic between 2.5-3.5. (8) Pneumonia Qualifiers: Pneumonia type: due to unspecified organism Laterality: right Lung location: lower lobe of lung Qualified Code(s): J18.9 - Pneumonia, unspecified organism Is this a current diagnosis for this admission?: Yes Plan: Was treated initially with ceftriaxone and azithromycin which is currently now discontinued per hospitalist service. - Time Time with patient: 15-25 minutes
[2020-04-07] MEDS: TRAZODONE HCL 50 MG TABLET PO SCH (21:27)
[2020-04-07] MEDS ORDERED: WARFARIN SODIUM 3 MG TABLET PO SCH (22:00)
[2020-04-07] MEDS: OXYCODONE HCL IR 5 MG TABLET PO PRN (23:02)
[2020-04-08 06:15] LABS: INTERNATIONAL RATION (INR) 2.88; PROTHROMBIN TIME 30.8 SEC (11.4-15.4)
[2020-04-08 06:16] LABS: PARTIAL THROMBOPLASTIN TIME 79.7 SEC (23.5-35.8)
[2020-04-08 06:29] LABS: ANION GAP 10 (5-19); BLOOD UREA NITROGEN 43 mg/dL (7-20); CALCIUM 9.4 mg/dL (8.4-10.2); CARBON DIOXIDE 24 mmol/L (22-30); CHLORIDE 96 mmol/L (98-107); GLUCOSE 89 mg/dL (75-110)
[2020-04-08] MEDS: BUMETANIDE 1 MG TABLET PO SCH (09:24)
[2020-04-08] MEDS: METOPROLOL TARTRATE 50 MG TABLET PO SCH (09:24)
[2020-04-08] MEDS: DOCUSATE SODIUM 100 MG CAPSULE PO SCH (09:24)
[2020-04-08] MEDS: FLUTICASONE NASAL SPRAY 50 MCG/SPRY 120 SPRAY/16 GM NASL SCH (09:25)
[2020-04-08] MEDS: MIDODRINE HCL 5 MG TABLET PO SCH ×2 (09:27→13:09)
[2020-04-08] MEDS ORDERED: BUMETANIDE 1 MG TABLET PO SCH (10:00)
--- NOTE | 2020-04-08 12:15 | PDOC DISCHARGE SUMMARY ---
Impression - Admit/DC Date/PCP Admission Date/Primary Care Provider: 03/31/20 16:06 Discharge Date: 04/08/20 - Assessment Summary: (1) H/O mitral valve replacement with mechanical valve Is this a current diagnosis for this admission?: Yes Plan: Subtherapeutic INR still. Goal INR of 2.5-3.5 given mechanical valve and A. fib. Continue Coumadin and monitor INR Probably would benefit from Home assisted to help with medication administration to ensure compliance upon discharge. Patient should follow-up with CT surgery Dr. Connolly and health occupations instructor Dr. Chley Spear both at [facility] in light of his recent MVR in 10/2019 and paroxysms of dyspnea and pleural effusions since then. 04/08/2020 INR is in the therapeutic range. The patient is discharged on the current 3 mg dose. (2) Persistent atrial fibrillation with rapid ventricular response Is this a current diagnosis for this admission?: Yes Plan: Heart rate remains controlled on Lopressor 50 mg every 12 hours. 04/08/2020 Continue current beta-jelani therapy. (3) Hypotension Qualifiers: Hypotension type: idiopathic hypotension Qualified Code(s): I95.0 - Idiopathic hypotension Is this a current diagnosis for this admission?: Yes Plan: Idiopathic at this point. Not septic. No evidence of cardiogenic shock. Not hypovolemic. A.m. cortisol was normal [but low normal] however cosyntropin test showed adequate response making adrenal insufficiency unlikely. ACTH low normal. Continue midodrine 10 mg TID. 04/08/2020 The patient's blood pressures are still on the low side. We will continue the midodrine 10 mg 3 times a day as he needs his metoprolol for rate control. (4) Pleural effusion Is this a current diagnosis for this admission?: Yes Plan: Re-accumulated right-sided pleural effusion since thoracentesis during last recent admission. Possible contributing factor could be chronic diastolic heart failure. Also noncompliant with medications. Status post thoracentesis 04/01/2020 with 1100 cc of transudate fluid removed. Incentive spirometer. continue bumex daily. 04/08/2020 His outpatient Bumex dose will be 0.5 mg daily. (5) CKD (chronic kidney disease) requiring chronic dialysis Is this a current diagnosis for this admission?: Yes Plan: Nephrology consulted for management of dialysis. 04/08/2020 The patient is stable for discharge. He will discharge on the medications noted below. He will follow-up with nephrology next week. He will have serial labs drawn by home health. (6) Respiratory failure with hypoxia Qualifiers: Chronicity: acute Qualified Code(s): J96.01 - Acute respiratory failure with hypoxia Is this a current diagnosis for this admission?: Yes Plan: Hypoxia resolved. Patient tolerating on room air for past several days now. 04/06/2020 Stable on room air (7) COPD (chronic obstructive pulmonary disease) Qualifiers: COPD type: unspecified COPD Qualified Code(s): J44.9 - Chronic obstructive pulmonary disease, unspecified Is this a current diagnosis for this admission?: Yes Plan: No inhalers at the time of discharge. Follow-up with primary care provider for any additional treatment plans. (8) acute on chronic systolic heart failure with undetermined diastolic dysfunction due to poor images on echocardiogram Continue current medication regimen as above - Additional Information Resuscitation Status: Full Code Discharge Diet: Cardiac Discharge Activity: Activity As Tolerated, Balance Activity w/Rest, Weigh Daily Referrals: CHELY SPEAR MD [NO LOCAL MD] - 04/12/20 10:20 am (Dr. Chely Spear Internal medicine - cardiovascular disease [address] [place] [address] , [place] [address] [phone] The patient will see Giacomo Wood NP) BRIANDA GREEN MD [ACTIVE STAFF] - (next week. Dr. Green's office will call patient with appt. [id number]) AXEL CONNOLLY JR, MD [NO LOCAL MD] - 04/28/20 1:00 pm (Be there at 12:00 p.m. for check-in and for lab work-up.) ANASTACIO CHACKO FNP-C [NO LOCAL MD] - 04/11/20 12:15 pm (Dr. Villegas will be the physician seeing the patient. ) SAMANTHA HOOD MD [ACTIVE PROVISIONAL STAFF] - 04/13/20 9:30 am (for next week. Can be Dr Puga if Dr. Brannon not available.) Prescriptions: Bumetanide [Bumex 1 mg Tablet] 0.5 mg PO DAILY 30 Days #15 tablet Warfarin Sodium [Coumadin 3 mg Tablet] 3 mg PO QHS 30 Days #30 tablet Midodrine HCl 10 mg PO TID 30 Days #90 tablet Home Medications: Fluticasone Propionate [Flonase Nasal [place] 50 Mcg/[place] 16 gm] 2 spray NASL DAILY 03/14/20 Hydroxyzine HCl [Atarax 10 mg Tablet] 50 mg PO QHS 03/14/20 Oxycodone HCl [Oxy-Ir 5 mg Tablet] 5 mg PO Q6HP PRN 03/14/20 Polyethylene Glycol 3350 [Miralax Powder 17 gm/Packet] 1 packet PO DAILYP PRN 03/14/20 Ranitidine HCl [Zantac] 150 mg PO DAILY 03/14/20 Sennosides/Docusate Sodium [Senna Plus 8.6-50 mg Tablet] 2 tab PO BID 03/14/20 Trazodone HCl [Desyrel 50 mg Tablet] 50 mg PO QHS 03/14/20 Metoprolol Tartrate [Lopressor 50 mg Tablet] 50 mg PO Q12 30 Days #60 tablet 03/23/20 Bumetanide [Bumex 1 mg Tablet] 0.5 mg PO DAILY 30 Days #15 tablet 04/08/20 Docusate Sodium [Colace 100 mg Capsule] 100 mg PO DAILY capsule 04/08/20 Midodrine HCl 10 mg PO TID 30 Days #90 tablet 04/08/20 Warfarin Sodium [Coumadin 3 mg Tablet] 3 mg PO QHS 30 Days #30 tablet 04/08/20 History of Present Illiness History of Present Illness: SHAHRZAD JAIN is a 59 year old male with past medical history significant for chronic A. fib, chronic recurrent bilateral pleural effusions, ESRD on HD, mitral valve stenosis status post valve replacement on Coumadin, tachybradycardia syndrome status post intracardiac pacemaker, COPD, longstanding medication noncompliance who presents with a 3-day history of progressive shortness of breath/PARRY with generalized fatigue and weakness. Patient did not take any of his medications on the day of admission here. He states he just did not feel well enough to take them but he does not articulate exactly what this means. He only repeats he is tired and he has been tired since he was discharged from here over 1 week ago. He is also on dialysis but is unclear if he is actually showing up to his dialysis appointments. His CTA of his chest today shows no PE, but it does show bilateral pleural effusions now with a loculation. Radiology hedged on questionable pneumonia however patient has no fever and a normal WBC, he also denies any cough/fever/chills/nausea/vomiti ng/diarrhea/abdominal pain. Very unlikely he has a pneumonia. I discussed the case in detail with other hospitalist physicians here who have cared for the patient in the past as well as Dr. Vasquez and Dr. Shields to get the full history of the patient given he is an exceptionally poor historian. Patient will be admitted to stepdown unit for close hemodynamic monitoring. Hospital Course Hospital Course: The patient had a complicated hospital course. He did require dialysis treatments during his hospitalization but not at discharge. His blood pressure and heart rate of ventral the had reasonable control. His blood pressure is still on the low side requiring midodrine 10 mg 3 times a day. On a slightly increased dose of warfarin 3 mg every night his INR is now in the therapeutic range. His goal is 2.5-3.5. He will be discharged on the 3 mg dose and follow- up with cardiology who will likely manage his warfarin. It was also suggested that he follow-up with his cardiac surgeon and primary care providers in addition to cardiology and nephrology. He already had home health prior to this admission and home health will resume at discharge. Physical Exam Vital Signs: Temp Pulse Resp BP Pulse Ox 97.6 F 96 18 89/61 L 99 04/08/20 08:13 04/08/20 08:13 04/08/20 08:13 04/08/20 08:13 04/08/20 08:13 Intake & Output 04/07/20 04/08/20 04/09/20 06:59 06:59 06:59 Intake Total 2589 1890 Output Total 1275 3500 Balance 1314 -1610 Weight 58.9 kg 57.5 kg General appearance: PRESENT: no acute distress Eye exam: PRESENT: conjunctiva pink. ABSENT: scleral icterus Ear exam: PRESENT: normal external ear exam. ABSENT: bleeding, drainage Neck exam: ABSENT: carotid bruit, lymphadenopathy, tracheostomy Respiratory exam: PRESENT: clear to auscultation monroe, symmetrical, unlabored. ABSENT: prolonged expiratory phas, rales, rhonchi, tachypnea, wheezes Cardiovascular exam: PRESENT: RRR, +S1, +S2. ABSENT: diastolic murmur, systolic murmur GI/Abdominal exam: PRESENT: normal bowel sounds, soft. ABSENT: distended, guarding, tenderness Rectal exam: PRESENT: deferred Gentrourinary exam: ABSENT: indwelling catheter Extremities exam: ABSENT: pedal edema Musculoskeletal exam: PRESENT: ambulatory, normal inspection Neurological exam: PRESENT: alert, awake, oriented to person, oriented to place, oriented to time, oriented to situation, CN II-XII grossly intact. ABSENT: altered Psychiatric exam: PRESENT: flat affect. ABSENT: agitated, anxious Focused psych exam: ABSENT: delusional, paranoid, restlessness Skin exam: PRESENT: dry, normal color, warm. ABSENT: rash Results Laboratory Results: WBC 7.0 10^3/uL (4.0-10.5) 04/06/20 05:04 RBC 4.30 10^6/uL (4.35-5.55) L 04/06/20 05:04 Hgb 12.7 g/dL (13.5-17.0) L 04/06/20 05:04 Hct 37.8 % (37.9-51.0) L 04/06/20 05:04 MCV 88 fl (80-97) 04/06/20 05:04 MCH 29.6 pg (27.0-33.4) 04/06/20 05:04 MCHC 33.7 g/dL (32.0-36.0) 04/06/20 05:04 RDW 17.6 % (11.5-14.0) H 04/06/20 05:04 Plt Count 268 10^3/uL (150-450) 04/06/20 05:04 Lymph % (Auto) 12.5 % (13-45) L 04/06/20 05:04 Benson % (Auto) 7.2 % (3-13) 04/06/20 05:04 Eos % (Auto) 1.6 % (0-6) 04/06/20 05:04 Baso % (Auto) 2.2 % (0-2) H 04/06/20 05:04 Absolute Neuts (auto) 5.3 10^3/uL (1.7-8.2) 04/06/20 05:04 Absolute Lymphs (auto) 0.9 10^3/uL (0.5-4.7) 04/06/20 05:04 Absolute Monos (auto) 0.5 10^3/uL (0.1-1.4) 04/06/20 05:04 Absolute Eos (auto) 0.1 10^3/uL (0.0-0.6) 04/06/20 05:04 Absolute Basos (auto) 0.2 10^3/uL (0.0-0.2) 04/06/20 05:04 Total Counted 100 04/01/20 15:36 Seg Neutrophils % 76.5 % (42-78) 04/06/20 05:04 Seg Neuts % (Manual) 80 % (42-78) H 04/01/20 15:36 Band Neutrophils % 1 % (3-5) L 04/01/20 15:36 Lymphocytes % (Manual) 9 % (13-45) L 04/01/20 15:36 Monocytes % (Manual) 8 % (3-13) 04/01/20 15:36 Eosinophils % (Manual) 2 % (0-6) 04/01/20 15:36 Basophils % (Manual) 0 % (0-2) 04/01/20 15:36 Abs Neuts (Manual) 6.1 10^3/uL (1.7-8.2) 04/01/20 15:36 Abs Lymphs (Manual) 0.7 10^3/uL (0.5-4.7) 04/01/20 15:36 Abs Monocytes (Manual) 0.6 10^3/uL (0.1-1.4) 04/01/20 15:36 Absolute Eos (Manual) 0.2 10^3/uL (0.0-0.6) 04/01/20 15:36 Abs Basophils (Manual) 0.0 10^3/uL (0.0-0.2) 04/01/20 15:36 Hypersegmented Neuts PRESENT 04/01/20 15:36 Platelet Comment ADEQUATE 04/01/20 15:36 Polychromasia SLIGHT 04/01/20 15:36 Basophilic Stippling PRESENT 04/01/20 15:36 Anisocytosis 1+ 04/01/20 15:36 Target Cells SLIGHT 04/01/20 15:36 Marcos Cells SLIGHT 04/01/20 15:36 Schistocytes SLIGHT 04/01/20 15:36 PT 30.8 SEC (11.4-15.4) H 04/08/20 05:53 INR 2.88 04/08/20 05:53 APTT 79.7 SEC (23.5-35.8) H 04/08/20 05:53 Sodium 130.1 mmol/L (137-145) L 04/08/20 05:53 Potassium 5.0 mmol/L (3.6-5.0) 04/08/20 05:53 Chloride 96 mmol/L (98-107) L 04/08/20 05:53 Carbon Dioxide 24 mmol/L (22-30) 04/08/20 05:53 Anion Gap 10 (5-19) 04/08/20 05:53 BUN 43 mg/dL (7-20) H 04/08/20 05:53 Creatinine 3.08 mg/dL (0.52-1.25) H 04/08/20 05:53 Est GFR ( Amer) 25 (>60) L 04/08/20 05:53 Est GFR (MDRD) Non-Af 21 (>60) L 04/08/20 05:53 Glucose 89 mg/dL (75-110) 04/08/20 05:53 Calcium 9.4 mg/dL (8.4-10.2) 04/08/20 05:53 Phosphorus 5.2 mg/dL (2.5-4.5) H 04/06/20 05:04 Magnesium 2.4 mg/dL (1.6-2.3) H 04/06/20 05:04 Total Bilirubin 1.1 mg/dL (0.2-1.3) 03/31/20 11:02 Direct Bilirubin 0.5 mg/dL (0.0-0.4) H 03/31/20 11:02 Neonat Total Bilirubin Not Reportable 03/31/20 11:02 Neonat Direct Bilirubin Not Reportable 03/31/20 11:02 Neonat Indirect Bili Not Reportable 03/31/20 11:02 AST 29 U/L (17-59) 03/31/20 11:02 ALT 12 U/L (<50) 03/31/20 11:02 Alkaline Phosphatase 153 U/L (38-126) H 03/31/20 11:02 Lactate Dehydrogenase 184 U/L (120-246) 03/31/20 17:25 Creatine Kinase 39 U/L (55-170) L 03/31/20 11:02 CK-MB (CK-2) 1.71 ng/mL (<4.55) 03/31/20 11:02 Troponin I 0.015 ng/mL 03/31/20 14:29 NT-Pro-B Natriuret Pep 37026 pg/mL (<125) H 03/31/20 11:02 Total Protein 7.3 g/dL (6.3-8.2) 03/31/20 17:25 Albumin 3.7 g/dL (3.5-5.0) 04/06/20 05:04 TSH 6.67 uIU/mL (0.47-4.68) H 04/01/20 04:09 Free T4 1.60 ng/dL (0.78-2.19) 04/01/20 04:09 Free T3 pg/mL 1.72 pg/mL (2.77-5.27) L 04/01/20 04:09 Random Cortisol 28.30 ug/dL (None Established) 04/02/20 14:07 Cortisol AM Sample 9.57 ug/dL (4.46-22.7) 04/02/20 05:40 ACTH 6.7 pg/mL (7.2-63.3) L 04/02/20 13:06 Fluid Type PLEURAL 04/01/20 13:20 Fluid Source LUNG 04/01/20 13:20 Fluid Color YELLOW 04/01/20 13:20 Fluid Appearance CLEAR 04/01/20 13:20 Fluid Viscosity LIQUID 04/01/20 13:20 Fluid WBC 50 /uL 04/01/20 13:20 Fluid RBC 335 /uL 04/01/20 13:20 Fluid Seg Neutrophils 17 % 04/01/20 13:20 Fluid Lymphocytes 48 % 04/01/20 13:20 Fluid Monocytes 35 % 04/01/20 13:20 Fluid Eosinophils 0 % 04/01/20 13:20 Fluid Basophils 0 % 04/01/20 13:20 Fluid Total Protein 2.4 g/dL (.) 04/01/20 13:20 Fluid LDH 60 IU/L (.) 04/01/20 13:03/31/20 03/31/20 11:02 14:29 CK-MB (CK-2) 1.71 Troponin I 0.016 0.015 NT-Pro-B Natriuret Pep 22238 H Impressions: Chest X-Ray 03/31/20 10:56 IMPRESSION: Right lower lobe pneumonia. Chest/Abdomen CTA 03/31/20 10:57 IMPRESSION: No PE. Chronic right pleural effusion with suspected loculated component. Chronic consolidation in the right lower lobe, atelectasis versus pneumonia. Chest X-Ray 04/01/20 13:26 IMPRESSION: No pneumothorax following right-sided thoracentesis. Chest X-Ray 04/01/20 15:30 IMPRESSION: No pneumothorax 2 hours following right-sided thoracentesis. Thoracentesis Ultrasound 04/01/20 16:26 IMPRESSION: SUCCESSFUL THORACENTESIS USING ULTRASOUND GUIDANCE. Chest X-Ray 04/05/20 00:00 IMPRESSION: Increasing bilateral pleural effusions right greater than left. Probable underlying vascular congestion. Basilar atelectasis or pneumonia cannot be excluded. Chest X-Ray 04/06/20 05:00 IMPRESSION: Unchanged radiographic appearance of the chest. Plan Health Concerns: Acute kidney injury-patient did have hemodialysis inpatient. We will follow-up with nephrology as an outpatient to see if kidneys continue to recover Chronic atrial fibrillation-INR is therapeutic. Follow-up with Dr. Shields as an outpatient. Continue metoprolol. Prosthetic mitral valve-continue warfarin 3 mg at night. The patient will need close monitoring with blood work and follow-up visits. Plan of Treatment: As above Goals: Stable anticoagulation with adequate heart control and resolution of his kidney injury. Time Spent: Greater than 30 Minutes Stroke Is this a Stroke Patient?: No Acute Heart Failure - Is this a Heart Failure Patient?: Yes Documentation of LVEF assessment?: Yes LVEF < 40%?: No- if no continue to question #3 3. Anticoagulant therapy for permanect/persistent/paraoxysmal Afib or Aflutter: Yes Follow-up Appointment scheduled within 7 days?: Yes
[2020-04-08 13:03] VITALS: BP 112/67
--- NOTE | 2020-04-08 19:01 | PDOC PROGRESS REPORT ---
Subjective Progress Note for:: 04/08/20 Subjective:: Patient remained to be clinically stable. He stated that he is actually feeling better and breathing better. His urine output peaked for the last 24 hours with output of 2500 mL. Patient wanted to go home and has no other new complaints. Reason For Visit: CHF EXACEATRIAL FIBRILLATION,BILATERAL PLEURAL Physical Exam Vital Signs: Temp Pulse Resp BP Pulse Ox 97.6 F 96 18 89/61 L 99 04/08/20 08:13 04/08/20 08:13 04/08/20 08:13 04/08/20 08:13 04/08/20 08:13 Intake & Output 04/07/20 04/08/20 04/09/20 06:59 06:59 06:59 Intake Total 2589 1890 Output Total 1275 3500 Balance 1314 -1610 Weight 58.9 kg 57.5 kg Exam: General appearance: PRESENT: no acute distress, cooperative, well-developed, well-nourished Head exam: PRESENT: atraumatic, normocephalic Eye exam: PRESENT: conjunctiva pink, PERRLA. ABSENT: scleral icterus Neck exam: ABSENT: JVD Respiratory exam: PRESENT: Diminished breath sounds. ABSENT: crackles, rales, rhonchi, unlabored, wheezes Cardiovascular exam: PRESENT: Regular rate rhythm -+S1, +S2. ABSENT: diastolic murmur, systolic murmur GI/Abdominal exam: PRESENT: normal bowel sounds, soft. ABSENT: guarding, mass, tenderness Extremities exam: Trace bilateral lower extremity pitting edema Neurological exam: PRESENT: alert, awake, oriented to person, place and time. Skin exam: PRESENT: dry, warm, Cardiovascular exam: PRESENT: +S1, +S2, systolic murmur GI/Abdominal exam: PRESENT: normal bowel sounds, soft. ABSENT: organomegaly, tenderness Results Laboratory Results: 04/06/20 05:04 04/08/20 05:53 04/08/20 05:53 Sodium 130.1 L Potassium 5.0 Chloride 96 L Carbon Dioxide 24 Anion Gap 10 BUN 43 H Creatinine 3.08 H Est GFR ( Amer) 25 L Glucose 89 Calcium 9.4 03/31/20 03/31/20 03/31/20 11:02 11:02 14:29 Creatine Kinase 39 L CK-MB (CK-2) 1.71 Troponin I 0.016 0.015 NT-Pro-B Natriuret Pep 12630 H Impressions: Chest/Abdomen CTA 03/31/20 10:57 IMPRESSION: No PE. Chronic right pleural effusion with suspected loculated component. Chronic consolidation in the right lower lobe, atelectasis versus pneumonia. Thoracentesis Ultrasound 04/01/20 16:26 IMPRESSION: SUCCESSFUL THORACENTESIS USING ULTRASOUND GUIDANCE. Chest X-Ray 04/06/20 05:00 IMPRESSION: Unchanged radiographic appearance of the chest. Assessment & Plan - Diagnosis (1) CKD (chronic kidney disease) requiring chronic dialysis Is this a current diagnosis for this admission?: Yes Plan: Patient had an episode of acute kidney injury when he was hospitalized at [facility] after he had a PEA cardiac arrest in November 2019. While he was at [facility] his kidney function did not recover and was deemed to be ESRD. He was discharged in February and subsequently continue dialysis here at [facility]. His last dialysis was last Saturday, 04/01. Last admission his 24-hour urine creatinine clearance showed 15 mL/min with 24-hour urine volume of 800 mL. I did decrease the frequency of his outpatient hemodialysis to just twice a week a week ago. Patient has been off dialysis for almost a week now and so far no clinical deter ioration and is making good amount of urine output. His creatinine seems to be plateauing from 2.24-3.08. He is making urine with good response to the Bumex with increased urine output. I will decrease his Bumex to 0.5 mg daily only. Patient is planned to be discharged today. I discussed with the patient importance of being compliant with weekly labs to evaluate his kidney function and the need for any hemodialysis treatment. If discharged today I would like to have a CBC and BMP done on Saturday to be drawn by the home health nurse of her health care. I will also schedule a virtual clinic visit in a week. If patient is able to sustain no dialysis for the next 2 to 3 weeks then I will have his PermCath removed. Discussed the plan with the patient and he understood. (2) Hypotension Qualifiers: Hypotension type: idiopathic hypotension Qualified Code(s): I95.0 - Idiopathic hypotension Is this a current diagnosis for this admission?: Yes Plan: No evidence of adrenal insufficiency. Continue midodrine. (3) Pleural effusion Is this a current diagnosis for this admission?: Yes Plan: He had reaccumulation of his right pleural effusion requiring repeat thoracentesis last April 01. Chest x-ray was repeated again today which shows unchanged findings compared to chest x-ray 2 days ago. He does continue to have the bilateral pleural effusion more on the right side though. Has been clinically stable. (4) Hyperkalemia Is this a current diagnosis for this admission?: Yes Plan: Mild. Advised low potassium diet. (5) Hyponatremia Is this a current diagnosis for this admission?: Yes Plan: Unchanged. Oral fluid restriction to only 1500 mL daily. (6) Atrial fibrillation Qualifiers: Atrial fibrillation type: unspecified Qualified Code(s): I48.91 - Unspecified atrial fibrillation Is this a current diagnosis for this admission?: Yes Plan: On anticoagulation. (7) H/O mitral valve replacement with mechanical valve Is this a current diagnosis for this admission?: Yes Plan: Awaiting for his INR to be therapeutic between 2.5-3.5. (8) Pneumonia Qualifiers: Pneumonia type: due to unspecified organism Laterality: right Lung location: lower lobe of lung Qualified Code(s): J18.9 - Pneumonia, unspecified organism Is this a current diagnosis for this admission?: Yes Plan: Was treated initially with ceftriaxone and azithromycin which is currently now discontinued per hospitalist service. - Time Time with patient: 15-25 minutes
== END 2020-04-08 14:00 | disposition home health service (06) | DRG 308 ==
LOC: ER 10:38 → EH 16:06 → 3S 17:11 → 3W 04-03 17:58
PROVIDERS: ADMIT Internal Medicine; ATTEND Hospitalist
PROC: 5A1D70Z Performance of Urinary Filtration, Intermittent, Less than 6 Hours Per Day (ICD-10-PCS; principal; 2020-04-01)
PROC: 0W993ZX Drainage of Right Pleural Cavity, Percutaneous Approach, Diagnostic (ICD-10-PCS; 2020-04-01)
DX: I48.19 Other persistent atrial fibrillation (principal); J96.01 Acute respiratory failure with hypoxia; I50.43 Acute on chronic combined systolic (congestive) and diastolic (congestive) heart failure; N18.6 End stage renal disease; N17.9 Acute kidney failure, unspecified; J91.8 Pleural effusion in other conditions classified elsewhere; I13.2 Hypertensive heart and chronic kidney disease with heart failure and with stage 5 chronic kidney disease, or end stage renal disease; E87.1 Hypo-osmolality and hyponatremia; E87.5 Hyperkalemia; I95.0 Idiopathic hypotension; D63.1 Anemia in chronic kidney disease; I47.1 Supraventricular tachycardia; I49.5 Sick sinus syndrome; Z95.2 Presence of prosthetic heart valve; J44.9 Chronic obstructive pulmonary disease, unspecified; Z99.2 Dependence on renal dialysis; Z79.899 Other long term (current) drug therapy; Z79.01 Long term (current) use of anticoagulants; Z95.0 Presence of cardiac pacemaker; Z91.14 Patient's other noncompliance with medication regimen; Z87.891 Personal history of nicotine dependence; Z88.8 Allergy status to other drugs, medicaments and biological substances
CPT/HCPCS: 32555; 36415; 71045; 71046; 71275; 80048; 80053; 82024; 82040; 82533; 82550; 82553; 83615; 83735; 83880; 84100; 84155; 84157; 84439; 84443; 84481; 84484; 85025; 85610; 85730; 87040; 87070; 87075; 87205; 88305; 89050; 93005; 93010; 93308; 94799; 96365; 96367; 96375; 99291; J0456; J0696; J0834; J1644; J1940; J2405; J3490; J7030; S0119

== ENCOUNTER 2020-04-15 19:08 | Emergency (ER) | payer MEDICAID ==
[2020-04-15] MEDS ORDERED: ONDANSETRON HCL INJ/PF 4 MG/2 ML SDV IV ONE (20:58)
[2020-04-15] MEDS ORDERED: MORPHINE SULFATE 10 MG/ML INJ IV ONE (21:12)
[2020-04-15 21:30] LABS: ABSOLUTE BASOPHILS # (AUTO) 0.1 10^3/uL (0.0-0.2); ABSOLUTE LYMPHOCYTES (AUTO) 0.8 10^3/uL (0.5-4.7); ABSOLUTE MONOCYTES (AUTO) 0.5 10^3/uL (0.1-1.4); ABSOLUTE NEUT (AUTO) 5.7 10^3/uL (1.7-8.2); BASOPHILS % (AUTO) 1.5 % (0-2); EOSINOPHILS % (AUTO) 0.2 % (0-6); MEAN CORPUSCULAR HEMOGLOBIN 29.2 pg (27.0-33.4); MEAN CORPUSCULAR HGB CONC 33.4 g/dL (32.0-36.0); MEAN CORPUSCULAR VOLUME 87 fl (80-97); MONOCYTES % (AUTO) 6.5 % (3-13); PLATELET COUNT 344 10^3/uL (150-450); RED BLOOD COUNT 4.81 10^6/uL (4.35-5.55); RED CELL DISTRIBUTION WIDTH 17.3 % (11.5-14.0); SEGMENTED NEUTROPHILS % (AUTO) 80.8 % (42-78); TOTAL CELLS COUNTED % (AUTO) 100 %; WHITE BLOOD COUNT 7.1 10^3/uL (4.0-10.5)
[2020-04-15 21:35] LABS: ALKALINE PHOSPHATASE 127 U/L (38-126); ANION GAP 14 (5-19); ASPARTATE AMINO TRANSFERASE 28 U/L (17-59); BILIRUBIN,DIRECT 0.5 mg/dL (0.0-0.4); BILIRUBIN,TOTAL 1.2 mg/dL (0.2-1.3); BLOOD UREA NITROGEN 24 mg/dL (7-20); CALCIUM 9.9 mg/dL (8.4-10.2); CARBON DIOXIDE 23 mmol/L (22-30); CHLORIDE 95 mmol/L (98-107); GLUCOSE 88 mg/dL (75-110); POTASSIUM 4.8 mmol/L (3.6-5.0); TOTAL PROTEIN 7.4 g/dL (6.3-8.2)
[2020-04-15 21:38] LABS: INTERNATIONAL RATION (INR) 1.84; PROTHROMBIN TIME 21.5 SEC (11.4-15.4)
[2020-04-15 21:39] LABS: PARTIAL THROMBOPLASTIN TIME 39.1 SEC (23.5-35.8)
--- NOTE | 2020-04-15 21:43 | ER Document Report ---
Entered by MICHELLE BEYER SCRIBE 04/15/202108 Acting as scribe for:SRIDHAR MOLINA IV, MD ED General - General Chief Complaint: Abdominal Distention Stated Complaint: weakness Time Seen by Provider: 04/15/20 20:58 Primary Care Provider: BRIANDA GREEN MD [Primary Care Provider] - Follow up as needed Mode of Arrival: Medic Information source: Patient, Emergency Med Personnel Notes: This 59 year old male patient with a history of ESRD brought in by EMS presents to the ED today with complaints of nausea/vomiting and bilateral upper and lower extremity swelling for the past x6 days. Patient states that he recently had a mitral valve replacement at [facility] x6 days ago and has not been feeling well since. He also reports abdominal distension and decreased PO intake. He notes that he has dialysis x2 times a week on Mondays and Fridays; however, he did not dialyze today because he did not feel well. TRAVEL OUTSIDE OF THE [place] IN LAST 30 DAYS: No - Related Data Allergies/Adverse Reactions: metoprolol tartrate [From Lopressor] Adverse Reaction (Verified 03/14/20 18:54) Generalized rash Past Medical History - General Information source: Patient, [facility] Records - Social History Smoking Status: Former Smoker Cigarette use (# per day): No Chew tobacco use (# tins/day): No Smoking Education Provided: No Family History: Reviewed & Not Pertinent, CAD Patient has suicidal ideation: No Patient has homicidal ideation: No - Past Medical History Cardiac Medical History: Reports: Hx Atrial Fibrillation, Hx Hypertension Pulmonary Medical History: Reports: Hx COPD, Hx Respiratory Failure Neurological Medical History: Reports: Hx Seizures - LAST 5 YR AGO Renal/ Medical History: Reports: Hx End Stage Renal Disease, Hx Hemodialysis - x2/wk (Mondays and Fridays) GI Medical History: Reports: Hx Ulcer Musculoskeletal Medical History: Reports 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 - Immunizations Immunizations up to date: Yes Hx Diphtheria, Pertussis, Tetanus Vaccination: Yes Hx Pneumococcal Vaccination: 08/25/18 Review of Systems - Review of Systems Constitutional: No symptoms reported EENT: No symptoms reported Cardiovascular: No symptoms reported Respiratory: No symptoms reported Gastrointestinal: See HPI, Abdomen distended, Nausea, Vomiting Genitourinary: No symptoms reported Male Genitourinary: No symptoms reported Musculoskeletal: See HPI, Leg swelling, Ankle swelling, Other - Arm swelling Skin: No symptoms reported Hematologic/Lymphatic: No symptoms reported Neurological/Psychological: No symptoms reported -: Yes All other systems reviewed and negative Physical Exam - Vital signs Vitals: Resp 19 04/15/20 19:18 - General General appearance: Alert In distress: None - HEENT Head: Normocephalic, Atraumatic Eyes: Normal Pupils: PERRL - Respiratory Respiratory status: No respiratory distress Chest status: Nontender Breath sounds: Normal Chest palpation: Normal - Cardiovascular Rhythm: Regular Heart sounds: Normal auscultation Murmur: No Friction rub: No Gallop: None auscultated - Abdominal Inspection: Normal Distension: Distended Bowel sounds: Normal Tenderness: Nontender - Abdomen soft Organomegaly: No organomegaly - Back Back: Normal, Nontender - Extremities General upper extremity: Normal inspection. No: Tender, Edema General lower extremity: Normal inspection. No: Tender, Edema - Neurological Neuro grossly intact: Yes Orientation: AAOx4 - Psychological Associated symptoms: Normal affect, Normal mood - Skin Skin Temperature: Warm Skin Moisture: Dry Skin Color: Normal Course - Re-evaluation Re-evalutation: 04/15/20 23:27 Patient states that he feels better at this time. Patient states that the aches and pains in his extremities prompting him to come in along with the nausea and all resolved. Results of ED MSE discussed with patient. All questions were answered. Emergency signs and symptoms, reasons to return to the emergency department discussed with patient. - Vital Signs Vital signs: Temp Pulse Resp BP Pulse Ox 97.1 F 15 124/102 H 100 04/15/20 19:47 04/15/20 22:01 04/15/20 22:01 04/15/20 19:45 - Laboratory Result Diagrams: 04/15/20 19:45 04/15/20 19:45 Laboratory results interpreted by me: 04/15/20 04/15/20 04/15/20 19:45 19:45 19:45 RDW 17.3 H Lymph % (Auto) 11.0 L Seg Neutrophils % 80.8 H PT 21.5 H APTT 39.1 H Sodium 131.7 L Chloride 95 L BUN 24 H Creatinine 2.11 H Est GFR ( Amer) 39 L Est GFR (MDRD) Non-Af 32 L Direct Bilirubin 0.5 H Alkaline Phosphatase 127 H - EKG Interpretation by Me Additional EKG results interpreted by me: 04/15/20 23:29 EKG obtained on 04/15/2020 at 2023 hrs. was interpreted by this MD. Findings: Tachycardia with a rate of 101, ST-T segments are nonspecific. Gross morphology of EKG when compared to prior from 03/31/2020 appears unchanged other than the rate is slower. Findings: Tachycardia with nonspecific ST segments. Discharge - Discharge Clinical Impression: Myalgia Nausea and vomiting Qualifiers: Vomiting type: unspecified Vomiting Intractability: non-intractable Qualified Code(s): R11.2 - Nausea with vomiting, unspecified Condition: Good Disposition: HOME, SELF-CARE Instructions: Vomiting ([facility]) Additional Instructions: Return to the Emergency Department without delay if any worse. HOME CARE INSTRUCTIONS & INFORMATION: Thank you for choosing us for your medical needs. We hope you're satisfied with the care you received. After you leave, you must properly care for your problem and, at the same time, observe its progress. Any condition can change. Some illnesses can change rapidly over hours or days. If your condition worsens, return to the Emergency Department or see your physician promptly. ABOUT YOUR X-RAYS AND EKG'S: If you had an EKG or X-rays taken, they have been read by the Emergency Physician. The X-rays and EKG's will also be read by a Radiologist or Gas Usage Meter Clerk within 24 hours. If discrepancies are noted, you will be notified by telephone. Please be certain the ED has a correct telephone number & address where you can be reached. Also, realize that some fractures or abnormalities do not show up on initial X-rays. If your symptoms continue, see your physician. ABOUT YOUR LABORATORY TEST: If you had laboratory tests, the results have been reviewed by the Emergency Physician. Some test results (for example cultures) may not be available for several days. You will be contacted if any test result shows you need additional treatment. Please be certain the ED has a correct telephone number and address where you can be reached. ABOUT YOUR MEDICATIONS: You will receive instructions on how to take your medicine on the prescription label you receive. Additional information may be provided by the Pharmacy. If you have questions afterwards, call the ED for clarification or further instructions. Some prescribed medications may cause drowsiness. Do not perform tasks such as driving a car or operating machinery without consulting your Pharmacist. If you feel you need a refill of pain medication, your condition will need re-evaluation. Please do not call for a refill of any medication. ABOUT YOUR SIGNATURE: Signature of this document acknowledges to followin. Understanding that you received emergency treatment and that you may be released before al medical problems are known or treated. Please be certain the ED has a correct phone number & address where you can be reached. 2. Acknowledgement that you will arrange for follow-up care as recommended. 3. Authorization for the Emergency Physician to provide information to your follow-up Physician in order to maximize your care. AT ANY TIME, IF YOUR SYMPTOMS CHANGE SIGNIFICANTLY OR WORSEN OR YOU DEVELOP NEW SYMPTOMS, RETURN TO THE EMERGENCY DEPARTMENT IMMEDIATELY FOR RE-EVALUATION. OUR GOAL IS TO PROVIDE EXCELLENT MEDICAL CARE! WE HOPE THAT WE HAVE MET YOUR EXPECTATIONS DURING YOUR EMERGENCY DEPARTMENT VISIT AND THAT YOU FEEL YOU HAVE RECEIVED EXCELLENT CARE! Referrals: BRIANDA GREEN MD [Primary Care Provider] - 04/19/20 I personally performed the services described in the documentation, reviewed and edited the documentation which was dictated to the scribe in my presence, and it accurately records my words and actions.
[2020-04-15] MEDS ORDERED: ONDANSETRON ODT 4 MG TAB (6 TAB/ER DISP) PO PRN (23:32)
[2020-04-15] MEDS ORDERED: OXYCODONE-ACETAMINOPHEN 5-325 MG TABLET PO ONE (23:32)
[2020-04-16 00:11] VITALS: BP 137/105
--- NOTE | 2020-04-16 08:44 | EKG REPORT ---
SEVERITY:- ABNORMAL ECG - WIDE COMPLEX TACHYCARDIA NONSPECIFIC IVCD WITH LAD : Confirmed by: Gianna Michaud MD 16-Apr-2020 08:43:37
== END 2020-04-16 00:14 | disposition home or self-care (01) ==
LOC: ER 19:08
DX: M79.10 Myalgia, unspecified site (principal); R11.2 Nausea with vomiting, unspecified; R14.0 Abdominal distension (gaseous); R53.1 Weakness; M79.89 Other specified soft tissue disorders; Z88.8 Allergy status to other drugs, medicaments and biological substances; Z87.891 Personal history of nicotine dependence; I10 Essential (primary) hypertension; J44.9 Chronic obstructive pulmonary disease, unspecified
CPT/HCPCS: 93005; 99284; 96374; 96375; 36415; 83690; 85025; 85610; 85730; 80053; 93010; J2270; J2405

== ENCOUNTER 2020-06-07 12:16 | Inpatient (IN) | payer MEDICAID ==
[2020-06-07 12:49] LABS: HEMATOCRIT 43.8 % (37.9-51.0); HEMOGLOBIN 14.4 g/dL (13.5-17.0); MEAN CORPUSCULAR HEMOGLOBIN 29.3 pg (27.0-33.4); MEAN CORPUSCULAR HGB CONC 32.8 g/dL (32.0-36.0); MEAN CORPUSCULAR VOLUME 89 fl (80-97); PLATELET COUNT 265 10^3/uL (150-450); RED BLOOD COUNT 4.91 10^6/uL (4.35-5.55); RED CELL DISTRIBUTION WIDTH 20.7 % (11.5-14.0); WHITE BLOOD COUNT 7.7 10^3/uL (4.0-10.5)
[2020-06-07 12:51] LABS: PARTIAL THROMBOPLASTIN TIME 30.9 SEC (23.5-35.8)
[2020-06-07 12:54] LABS: INTERNATIONAL RATION (INR) 1.46; PROTHROMBIN TIME 17.8 SEC (11.4-15.4)
[2020-06-07 13:03] LABS: ALBUMIN 3.4 g/dL (3.5-5.0); ALKALINE PHOSPHATASE 158 U/L (38-126); ANION GAP 7 (5-19); ASPARTATE AMINO TRANSFERASE 35 U/L (17-59); BILIRUBIN,DIRECT 0.6 mg/dL (0.0-0.4); BILIRUBIN,TOTAL 1.3 mg/dL (0.2-1.3); BLOOD UREA NITROGEN 30 mg/dL (7-20); CARBON DIOXIDE 22 mmol/L (22-30); CHLORIDE 104 mmol/L (98-107); CREATINE KINASE 34 U/L (55-170); GLUCOSE 95 mg/dL (75-110); TOTAL PROTEIN 6.6 g/dL (6.3-8.2)
[2020-06-07 13:06] LABS: ABSOLUTE LYMPHOCYTES# (MANUAL) 0.6 10^3/uL (0.5-4.7); ABSOLUTE MONOCYTES # (MANUAL) 0.7 10^3/uL (0.1-1.4); BASOPHILS % (MANUAL) 0 % (0-2); EOSINOPHILS % (MANUAL) 0 % (0-6); LYMPHOCYTES % (MANUAL) 8 % (13-45); MONOCYTES % (MANUAL) 9 % (3-13); SEGMENTED NEUTROPHILS % (MAN) 83 % (42-78); TOTAL CELLS COUNTED 100
[2020-06-07 13:07] LABS: ANISOCYTOSIS 2+; PLATELET COMMENT ADEQUATE; PLATELET LARGE PRESENT; POIKILOCYTOSIS SLIGHT; TARGET CELLS SLIGHT
--- NOTE | 2020-06-07 13:14 | RADIOLOGY REPORT (SQ) ---
EXAM DESCRIPTION: CHEST SINGLE VIEW IMAGES COMPLETED DATE/TIME: 06/07/2020 12:50 pm REASON FOR STUDY: chest pain COMPARISON: 04/06/2020 EXAM PARAMETERS: NUMBER OF VIEWS: One view. TECHNIQUE: Single frontal radiographic view of the chest acquired. RADIATION DOSE: NA LIMITATIONS: None. FINDINGS: LUNGS AND PLEURA: Loculated right pleural effusion. Masslike opacification in the right b ase. MEDIASTINUM AND HILAR STRUCTURES: No masses. Contour normal. HEART AND VASCULAR STRUCTURES: Heart size is indeterminate. No pulmonary edema. BONES: No acute findings. HARDWARE: Dual-lumen catheter, loop recorder, sternotomy wires. OTHER: No other significant finding. IMPRESSION: Loculated right pleural effusion with masslike opacification in the right base. The eff usion has increased since the prior study of 04/06/2020. TECHNICAL DOCUMENTATION: JOB ID: [id number] 2010 [employer]- All Rights Reserved Reading location - IP/workstation name: [email or web address]
--- NOTE | 2020-06-07 14:21 | RADIOLOGY REPORT (SQ) ---
EXAM DESCRIPTION: CT HEAD WITHOUT IMAGES COMPLETED DATE/TIME: 06/07/2020 2:08 pm REASON FOR STUDY: altered mental status COMPARISON: 08/24/2014 TECHNIQUE: Axial images acquired through the brain without intravenous contrast. Images reviewed wi th bone, brain and subdural windows. Additional sagittal and coronal reconstructions were generated. Images stored on PACS. All CT scanners at this facility use dose modulation, iterative reconstruction, and/or weight based d osing when appropriate to reduce radiation dose to as low as reasonably achievable (ALARA). [facility]: Dose Right [facility]: CareDose [facility]: Dose Right [facility]: Teradose 4D [facility]: Smart [place] RADIATION DOSE: CT Rad equipment meets quality standard of care and radiation dose reduction techniq ues were employed. CTDIvol: 53.2 mGy. DLP: 1017 mGy-cm. mGy. LIMITATIONS: None. FINDINGS: VENTRICLES: Normal size and contour. CEREBRUM: No masses. No hemorrhage. No midline shift. No evidence for acute infarction. Bifrontal encephalomalacia is again noted stable from 2013. Mild decreased attenuation surrounding the posteri or horns of the lateral ventricles as well. CEREBELLUM: No masses. No hemorrhage. No alteration of density. No evidence for acute infarction. EXTRAAXIAL SPACES: No fluid collections. No masses. ORBITS AND GLOBE: No intra- or extraconal masses. Normal contour of globe without masses. CALVARIUM: No fracture. PARANASAL SINUSES: There is a retention cyst or polyp in the left maxillary sinus. SOFT TISSUES: No mass or hematoma. OTHER: No other significant finding. IMPRESSION: Stable CT of the brain with bifrontal encephalomalacia. No acute intracranial event. EVIDENCE OF ACUTE STROKE: NO. COMMENT: Quality ID # 436: Final reports with documentation of one or more dose reduction techniques (e.g., Automated exposure control, adjustment of the mA and/or kV according to patient size, use of iterative reconstruction technique) TECHNICAL DOCUMENTATION: JOB ID: [id number] 2010 [employer]- All Rights Reserved Reading location - IP/workstation name: [email or web address]
--- NOTE | 2020-06-07 14:23 | RADIOLOGY REPORT (SQ) ---
EXAM DESCRIPTION: CT ABD/PELVIS WITH IV ONLY IMAGES COMPLETED DATE/TIME: 06/07/2020 2:08 pm REASON FOR STUDY: abd distension COMPARISON: None. TECHNIQUE: CT scan of the abdomen and pelvis performed using helical scanning technique with dynamic intravenous contrast injection. No oral contrast. Images reviewed with lung, soft tissue, and bone windows. Reconstructed coronal and sagittal MPR images reviewed. Delayed images for evaluation of the urinary system also acquired. All images stored on PACS. All CT scanners at this facility use dose modulation, iterative reconstruction, and/or weight based d osing when appropriate to reduce radiation dose to as low as reasonably achievable (ALARA). [facility]: Dose Right [facility]: CareDose [facility]: Dose Right [facility]: Teradose 4D [facility]: Fast FiBR CONTRAST TYPE AND DOSE: 62 mL Omnipaque 350- low osmolar. RENAL FUNCTION: BUN 30 creatinine 1.7 RADIATION DOSE: . LIMITATIONS: None. FINDINGS: LOWER CHEST: See separate report of the CT of the chest. LIVER: Normal size. No masses. No dilated ducts. SPLEEN: Normal size. No focal lesions. PANCREAS: No masses. No significant calcifications. No adjacent inflammation or peripancreatic fluid collections. Pancreatic duct not dilated. GALLBLADDER: No identified stones by CT criteria. No inflammatory changes to suggest cholecystitis. ADRENAL GLANDS: No significant masses or asymmetry. RIGHT KIDNEY AND URETER: No solid masses. No significant calcifications. No hydronephrosis or hyd roureter. LEFT KIDNEY AND URETER: No solid masses. No significant calcifications. No hydronephrosis or hydr oureter. AORTA AND VESSELS: No aneurysm. No dissection. Renal arteries, SMA, celiac without stenosis. RETROPERITONEUM: No retroperitoneal adenopathy, hemorrhage or masses. BOWEL AND PERITONEAL CAVITY: There is considerable ascites. No obvious bowel mass or inflammation. APPENDIX: Not identified. PELVIS: Free fluid. Urinary bladder is distended. No pelvic mass. ABDOMINAL WALL: No masses. No hernias. BONES: Degenerative joint changes in the right hip. Left hip arthroplasty. OTHER: No other significant finding. IMPRESSION: There is a large amount of ascites. 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 No ot her significant finding. TECHNICAL DOCUMENTATION: JOB ID: [id number] Quality ID # [id number]: Final reports with documentation of one or more dose reduction techniques (e.g., Au tomated exposure control, adjustment of the mA and/or kV according to patient size, use of iterative reconstruction technique) 2010 [employer]- All Rights Reserved Reading location - IP/workstation name: [email or web address]
--- NOTE | 2020-06-07 14:33 | RADIOLOGY REPORT (SQ) ---
EXAM DESCRIPTION: CT CHEST WITH IMAGES COMPLETED DATE/TIME: 06/07/2020 2:08 pm REASON FOR STUDY: pneumothorax COMPARISON: 03/31/2020 TECHNIQUE: CT scan of the chest performed using helical scanning technique with dynamic intravenous contrast injection. Images reviewed with lung, soft tissue and bone windows. Reconstructed coronal and sagittal MPR and MIP images reviewed. All images stored on PACS. All CT scanners at this facility use dose modulation, iterative reconstruction, and/or weight based d osing when appropriate to reduce radiation dose to as low as reasonably achievable (ALARA). [facility]: Dose Right [facility]: CareDose [facility]: Dose Right [facility]: Teradose 4D [facility]: Smart [employer] CONTRAST TYPE AND DOSE: contrast/concentration: Isovue 350.00 mmol/ml; Total Contrast Delivered: 62. 0 ml; Total Saline Delivered: 57.0 ml RENAL FUNCTION: BUN 30 creatinine 1.7 RADIATION DOSE: CT Rad equipment meets quality standard of care and radiation dose reduction techniq ues were employed. CTDIvol: 7.4 - 11.0 mGy. DLP: 1136 mGy-cm. . LIMITATIONS: None. FINDINGS: LUNGS AND PLEURA: Large loculated pleural effusion on the right. Masslike opacification i n the right base,. Small left pleural effusion. HILAR AND MEDIASTINAL STRUCTURES: No identified masses or abnormal nodes. HEART AND VASCULAR STRUCTURES: No aneurysm or dissection. No central pulmonary emboli. No pericardi al effusion. HARDWARE: Sternotomy wires. Loop recorder. Dual-lumen catheter. UPPER ABDOMEN: See separate report of the CT of the abdomen. THYROID AND OTHER SOFT TISSUES: No masses. No adenopathy. BONES: No significant finding. OTHER: No other significant finding. IMPRESSION: Large loculated right pleural effusion with opacification in the right base, likely righ t lower lobe atelectasis. The effusion has increased since the prior study of 03/31/2020. Small left pleural effusion. TECHNICAL DOCUMENTATION: JOB ID: [id number] Quality ID # [id number]: Final reports with documentation of one or more dose reduction techniques (e.g., Au tomated exposure control, adjustment of the mA and/or kV according to patient size, use of iterative reconstruction technique) 2010 [employer]- All Rights Reserved Reading location - IP/workstation name: [email or web address]
--- NOTE | 2020-06-07 15:30 | ER Document Report ---
Entered by MICHELLE BEYER SCRIBE 06/07/20 1244 Acting as scribe for:CHIP DOBSON MD ED Cardiac - General Chief Complaint: Chest Pain Stated Complaint: HEART RATE ISSUES Primary Care Provider: BRIANDA GREEN MD [Primary Care Provider] - Follow up as needed Mode of Arrival: Medic Information source: Patient, Emergency Med Personnel Notes: This 59 year old male patient with a history of A fib with RVR, mitral valve replacement, CHF, HTN, and ESRD on HD brought in by EMS from home presents to the ED today with complaints of chest pressure and shortness of breath for the last x2 days. EMS reports that the patient was noted to have wide complex tachycardia with a heart rate in the 200s. Patient was cardioverted in the field which brought his heart rate back to sinus rhythm. EMS also administered 2 mg Versed IN and placed the patient on 2L O2 NC. Patient states that he is a dialysis patient, but he hasn't gone in a few weeks because he doesn't want to sit there for x4 hours. Denies chest pain or shortness of breath at this time. TRAVEL OUTSIDE OF THE [place] IN LAST 30 DAYS: No - Related Data Allergies/Adverse Reactions: metoprolol tartrate [From Lopressor] Adverse Reaction (Verified 03/14/20 18:54) Generalized rash Past Medical History - General Information source: Patient, [facility] Records - Social History Smoking Status: Unknown if Ever Smoked Smoking Education Provided: No Frequency of alcohol use: None Drug Abuse: None Lives with: Alone Family History: Reviewed & Not Pertinent, CAD Patient has suicidal ideation: No Patient has homicidal ideation: No - Past Medical History Cardiac Medical History: Reports: Hx Atrial Fibrillation, Hx Hypertension Pulmonary Medical History: Reports: Hx COPD, Hx Respiratory Failure Neurological Medical History: Reports: Hx Seizures - LAST 5 YR AGO Renal/ Medical History: Reports: Hx End Stage Renal Disease, Hx Hemodialysis - x2/wk (Mondays and Fridays) GI Medical History: Reports: Hx Ulcer Musculoskeletal Medical History: Reports 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 - Immunizations Immunizations up to date: Yes Hx Diphtheria, Pertussis, Tetanus Vaccination: Yes Hx Pneumococcal Vaccination: 08/25/18 Review of Systems - Review of Systems Constitutional: No symptoms reported EENT: No symptoms reported Cardiovascular: See HPI, Chest pain Respiratory: See HPI, Short of breath Gastrointestinal: No symptoms reported Genitourinary: No symptoms reported Male Genitourinary: No symptoms reported Musculoskeletal: No symptoms reported Skin: No symptoms reported Hematologic/Lymphatic: No symptoms reported Neurological/Psychological: No symptoms reported -: Yes All other systems reviewed and negative Physical Exam - Vital signs Vitals: Pulse Ox 95 06/07/20 12:23 - General General appearance: Alert, Other - Arousable to voice In distress: Moderate - HEENT Head: Normocephalic, Atraumatic Eyes: Normal Pupils: PERRL - Respiratory Respiratory status: Retractions Chest status: Nontender Breath sounds: Decreased air movement Chest palpation: Normal - Cardiovascular Rhythm: Regular Heart sounds: Normal auscultation, S1 appreciated, S2 appreciated Murmur: No Friction rub: No Gallop: None auscultated - Abdominal Inspection: Normal Distension: Distended Bowel sounds: Normal Tenderness: Nontender - Abdomen soft. No: Rebound Organomegaly: No organomegaly - Back Back: Normal, Nontender - Extremities General upper extremity: Normal inspection General lower extremity: Normal inspection. No: Edema - Neurological Neuro grossly intact: Yes Speech: Other - Weak - Skin Skin Temperature: Warm Skin Moisture: Dry Skin Color: Ashen Course - Re-evaluation Re-evalutation: 06/07/20 15:50 Patient resting comfortably easily arousable. Denies any chest pain at this time. Discussed case with Dr. Cornelius Godfrey district traffic chief on the day on it arrival of patient inasmuch as we understood patient was a chronic kidney failure patient renal disease with hemodialysis that has been noncompliant for 2 months. Patient's last hemodialysis was in March 2020. We were expecting patient to have an abnormal BUN and creatinine and potassium however the potassium was 4.0 and BUN was 30 and creatinine 1.7. Patient presented today by EMS after being cardiac conversion for V. tach with 100 J. Patient arrived to have some of this rhythm that was in the 80s not showing any ST elevations. Discussed case with Dr. Shields the on-call antique finisher other day who is familiar with patient and we discussed that the patient could be admitted to our hospital with the services that we have to render. - Vital Signs Vital signs: Temp Pulse Resp BP Pulse Ox 97.4 F 32 H 146/120 H 94 06/07/20 12:30 06/07/20 13:21 06/07/20 13:40 06/07/20 13:40 - Laboratory Result Diagrams: 06/07/20 12:24 06/07/20 12:24 Laboratory results interpreted by me: 06/07/20 06/07/20 06/07/20 12:24 12:24 12:24 RDW 20.7 H Seg Neuts % (Manual) 83 H Lymphocytes % (Manual) 8 L PT 17.8 H Sodium 132.9 L BUN 30 H Creatinine 1.70 H Est GFR ( Amer) 50 L Est GFR (MDRD) Non-Af 41 L Direct Bilirubin 0.6 H Alkaline Phosphatase 158 H Creatine Kinase 34 L Albumin 3.4 L - Diagnostic Test Radiology reviewed: Image reviewed, Reports reviewed Radiology results interpreted by me: 06/07/20 15:48 Chest x-ray shows a loculated right pleural effusion with a massive opacification in the right base effusion is increased since prior study. Which [address] shows a large loculated pleural effusion with opacification in the right base likely right lower lobe atelectasis effusion is increased since prior study small left pleural effusion noted. CT scan of the head shows a stable CT of the brain with bifrontal encephalo malacia no acute intracranial event no evidence of stroke. CT abdomen and pelvis shows large amount of ascites degenerative joint disease in the right hip and no other specific acute finding. - EKG Interpretation by Me Additional EKG results interpreted by me: 06/07/20 15:46 Twelve-lead EKG shows atrial fibrillation with a ventricular rate rate of 90 nonspecific intraventricular conduction delay with left axis deviation. No acute ST changes. Critical Care Note - Critical Care Note Total time excluding time spent on procedures (mins): 45 - Evaluate patient with cardiac arrhythmia requiring cardioversion in the field by EMS patient was cyanotic appearing of his lips with COPD and ascites noted. Patient very weak discussed case is with district traffic chief and antique finisher regarding the management and care of patient. Patient has a troponin leak of 0.035 consistent with some ischemia was perhaps related to the tachycardia and hypoxia. Discharge - Discharge Clinical Impression: Ventricular tachyarrhythmia, COPD (chronic obstructive pulmonary disease), Ascites, Elevated troponin, Atrial fibrillation Condition: Critical Disposition: ADMITTED INPATIENT Admitting Provider: Dana (Hospitalist) Unit Admitted: IMCU Referrals: BRIANDA GREEN MD [Primary Care Provider] - Follow up as needed I personally performed the services described in the documentation, reviewed and edited the documentation which was dictated to the scribe in my presence, and it accurately records my words and actions.
--- NOTE | 2020-06-07 16:23 | PDOC H&P ---
History of Present Illness Admission Date/PCP: BRIANDA GREEN MD Patient complains of: Came in with complaints of shortness of breath History of Present Illness: SHAHRZAD JAIN is a 59 year old male with a history of congestive heart failure, pacemaker short-term dialysis still has a dialysis catheter, hypertension, atrial fibrillation on warfarin came in with complaints of shortness of breath and difficulty in ambulation. Patient's nephew called the EMS because of the patient's poor living condition EMS found that heart rate is more than 100 thinking it was a V. tach give him a shock. By the time patient arrival at the ER he is in sinus rhythm heart rate is in the 80s. Initial lactic acid level is one-point 0 repeat lactic acid is 2.1. Patient denies any fevers denies any chills denies any headaches dizzy spells nausea vomiting diarrhea. His main complaint is shortness of breath and difficulty in ambulation at home. Consulted with Dr. Cornelius Root was requested by the ER. Past Medical History Cardiac Medical History: Reports: Atrial Fibrillation, Hypertension Pulmonary Medical History: Reports: Chronic Obstructive Pulmonary Disease (COPD), Respiratory Failure Denies: Tuberculosis Neurological Medical History: Reports: Seizures - LAST 5 YR AGO Renal/ Medical History: Reports: End Stage Renal Disease Psychiatric Medical History: Denies: Depression Hematology: Reports: Anemia Past Surgical History Past Surgical History: Reports: Orthopedic Surgery - hip, arm, Pacemaker, Valve Replacement - Mechanical mitral valve replacement, October 2019, Other - Complicated mitral valve replacement for severe mitral stenosis? Social History Lives with: Alone Smoking Status: Unknown if Ever Smoked Electronic Cigarette use?: No Frequency of Alcohol Use: Rare Hx Recreational Drug Use: No Drugs: None Hx Prescription Drug Abuse: No - Advance Directive Resuscitation Status: Full Code Family History Family History: Reviewed & Not Pertinent, CAD Parental Family History Reviewed: Yes - Heart disease Children Family History Reviewed: Yes Sibling(s) Family History Reviewed.: Yes Medication/Allergy Home Medications: Fluticasone Propionate [Flonase Nasal [place] 50 Mcg/[place] 16 gm] 2 spray NASL DAILY 03/14/20 Hydroxyzine HCl [Atarax 10 mg Tablet] 50 mg PO QHS 03/14/20 Oxycodone HCl [Oxy-Ir 5 mg Tablet] 5 mg PO Q6HP PRN 03/14/20 Polyethylene Glycol 3350 [Miralax Powder 17 gm/Packet] 1 packet PO DAILYP PRN 03/14/20 Ranitidine HCl [Zantac] 150 mg PO DAILY 03/14/20 Sennosides/Docusate Sodium [Senna Plus 8.6-50 mg Tablet] 2 tab PO BID 03/14/20 Trazodone HCl [Desyrel 50 mg Tablet] 50 mg PO QHS 03/14/20 Metoprolol Tartrate [Lopressor 50 mg Tablet] 50 mg PO Q12 30 Days #60 tablet 03/23/20 Bumetanide [Bumex 1 mg Tablet] 0.5 mg PO DAILY 30 Days #15 tablet 04/08/20 Docusate Sodium [Colace 100 mg Capsule] 100 mg PO DAILY capsule 04/08/20 Midodrine HCl 10 mg PO TID 30 Days #90 tablet 04/08/20 Warfarin Sodium [Coumadin 3 mg Tablet] 3 mg PO QHS 30 Days #30 tablet 04/08/20 Allergies/Adverse Reactions: metoprolol tartrate [From Lopressor] Adverse Reaction (Verified 03/14/20 18:54) Generalized rash Review of Systems Constitutional: PRESENT: fever(s) Eyes: PRESENT: visual disturbances Ears: PRESENT: hearing changes Nose, Mouth, and Throat: PRESENT: sore throat Cardiovascular: ABSENT: chest pain, palpitations Respiratory: PRESENT: dyspnea Gastrointestinal: ABSENT: abdominal pain, nausea, vomiting Musculoskeletal: ABSENT: joint swelling Neurological: PRESENT: other - Difficulty in ambulation Psychiatric: ABSENT: anxiety, depression, homidical ideation, suicidal ideation Endocrine: ABSENT: cold intolerance, heat intolerance, polydipsia, polyuria Physical Exam Vital Signs: Temp Pulse Resp BP Pulse Ox 97.4 F 32 H 146/120 H 94 06/07/20 12:30 06/07/20 13:21 06/07/20 13:40 06/07/20 13:40 Intake & Output 06/06/20 06/07/20 06/08/20 06:59 06:59 06:59 Weight 54.431 kg General appearance: PRESENT: no acute distress, disheveled, thin Head exam: PRESENT: atraumatic Eye exam: PRESENT: PERRLA Ear exam: PRESENT: normal external ear exam Mouth exam: PRESENT: moist, tongue midline Teeth exam: PRESENT: poor dentation Neck exam: PRESENT: JVD. ABSENT: carotid bruit, lymphadenopathy, thyromegaly Respiratory exam: PRESENT: decreased breath sounds, other - diaLysis catheter present on the left side of the chest Cardiovascular exam: PRESENT: tachycardia, other - Pacemaker present on the left side of the chest GI/Abdominal exam: PRESENT: ascites, normal bowel sounds Rectal exam: PRESENT: deferred Extremities exam: PRESENT: full ROM. ABSENT: calf tenderness, clubbing, pedal edema Neurological exam: PRESENT: alert, awake, oriented to person, oriented to place, oriented to time, oriented to situation, CN II-XII grossly intact. ABSENT: motor sensory deficit Psychiatric exam: PRESENT: appropriate affect, normal mood. ABSENT: homicidal ideation, suicidal ideation Results Laboratory Results: 06/07/20 12:24 06/07/20 12:24 06/07/20 06/07/20 06/07/20 12:24 12:24 15:08 WBC 7.7 RBC 4.91 Hgb 14.4 Hct 43.8 MCV 89 MCH 29.3 MCHC 32.8 RDW 20.7 H Plt Count 265 Seg Neutrophils % Not Reportable Sodium 132.9 L Potassium 4.0 Chloride 104 Carbon Dioxide 22 Anion Gap 7 BUN 30 H Creatinine 1.70 H Est GFR ( Amer) 50 L Glucose 95 Lactic Acid 2.3 H Calcium 9.0 Total Bilirubin 1.3 AST 35 Alkaline Phosphatase 158 H Total Protein 6.6 Albumin 3.4 L Lipase 32.3 06/07/20 06/07/20 06/07/20 12:24 12:24 15:08 Creatine Kinase 34 L Troponin I 0.035 0.041 Impressions: Chest X-Ray 06/07/20 12:30 IMPRESSION: Loculated right pleural effusion with masslike opacification in the right base. The effusion has increased since the prior study of 04/06/2020. Chest CT 06/07/20 12:51 IMPRESSION: Large loculated right pleural effusion with opacification in the right base, likely right lower lobe atelectasis. The effusion has increased since the prior study of 03/31/2020. Small left pleural effusion. Head CT 06/07/20 13:02 IMPRESSION: Stable CT of the brain with bifrontal encephalomalacia. No acute intracranial event. EVIDENCE OF ACUTE STROKE: NO. Abdomen/Pelvis CT 06/07/20 13:03 IMPRESSION: There is a large amount of ascites. 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 No other significant finding. Assessment and Plan - Diagnosis (1) Ventricular tachyarrhythmia Is this a current diagnosis for this admission?: Yes Plan: 06/07/2020-patient is going to be admitted to [facility] as an inpatient because of questionable V. tach status post shock by the EMS. Cardiology consult was requested serial troponins will be requested. He is a full code. Consultation with Dr. Shieldsanil requested. Echocardiogram is requested. (2) COPD (chronic obstructive pulmonary disease) Qualifiers: Is this a current diagnosis for this admission?: No Plan: 06/07/20-patient has history of COPD secondary to chronic smoking as per the patient his quit smoking 6 months ago. Pulse ox is within normal limits in the emergency room. (3) Atrial fibrillation Is this a current diagnosis for this admission?: No Plan: 06/07/2020-patient has history of chronic longstanding atrial fibrillation. On warfarin at home. INR is 1.44 in the ER. Plan is to continue Coumadin and recheck INR tomorrow. (4) Ascites Is this a current diagnosis for this admission?: No Plan: 06/07/2020-patient has history of chronic ascites most likely secondary to end- stage renal disease, history of alcohol abuse causing liver cirrhosis. (5) Pleural effusion Is this a current diagnosis for this admission?: Yes Plan: 06/07/2020-patient has a large pleural effusion on the right side to arrange for a thoracentesis tomorrow. (6) ESRD (end stage renal disease) on dialysis Is this a current diagnosis for this admission?: No Plan: 06/07/2020-patient has history of hemodialysis for a short while still carrying the dialysis catheter on the left side of the chest. Creatinine is 1.7 potassium within normal limits. Plan is to recheck the labs tomorrow. (7) Shortness of breath Is this a current diagnosis for this admission?: Yes Plan: 06/07/2020-patient came with complaints of shortness of breath. No obvious pneumonia seen. There is a small left-sided pleural effusion and a large right- sided pleural effusion. To arrange for thoracentesis tomorrow. (8) CHF (congestive heart failure) Is this a current diagnosis for this admission?: No Plan: 06/07/2020-patient has history of congestive heart failure with cardiomegaly and bilateral pleural effusions and echocardiogram was requested. I do not have the previous echocardiogram report available.
[2020-06-07] MEDS: IPRATROPIUM/ALBUTEROL 0.5-2.5 MG/3 ML AMPUL NEB SCH (19:55)
--- NOTE | 2020-06-07 20:51 | XCELERA REPORT ---
[address] [address] Transthoracic Echocardiogram Report Name: SHAHRZAD JAIN Age: 59 yrs Gender: Male : 1960 Patient Status: Inpatient Patient Location: [place] [address]^A Study Date: 06/07/2020 05:12 PM History: CHF Height: 64 in Weight: 120 lb BSA: 1.6 m2 Procedure: A complete two-dimensional transthoracic echocardiogram was performed (2D, M-mode, spectral and color flow Doppler). The study was technically difficult with many images being suboptimal in quality. Reason For Study: chf Previous Evaluation: A previous study was performed on 03/31/2020. History: CHF. MVR Atrial fibrillation. Ordering Physician: NILAY GERMAN Performed By: Mey Harper Interpretation Summary Left ventricular systolic function is moderate to severely reduced. Due to the poor quality of the echocardiogram, an assessment of left ventricular ejection fraction cannot be made. Best estimate is 25-30%. The right ventricular systolic function is moderately reduced. There is a mechanical mitral valve. There is no aortic valve stenosis There is a mild amount of tricuspid regurgitation There is mild to moderate pulmonary hypertension by echo There is no pericardial effusion. MMode/2D Measurements & Calculations RVDd: 3.5 cm LVIDd: 4.6 cm FS: 20.5 % Ao root diam: 2.1 cm IVSd: 0.66 cm LVIDs: 3.6 cm EDV(Teich): 96.8 ml Ao root area: 3.6 cm2 LVPWd: 0.76 cm ESV(Teich): 56.3 ml LA dimension: 3.3 cm EF(Teich): 41.9 % Doppler Measurements & Calculations MV E max julián: MV P1/2t max julián: Ao V2 max: LV V1 max P.3 cm/sec 157.5 cm/sec 118.6 cm/sec 3.6 mmHg MV A max julián: MV P1/2t: 71.6 msec Ao max P.6 mmHgLV V1 max: 55.5 cm/sec MVA(P1/2t): 3.1 cm2 94.8 cm/sec MV E/A: 2.4 MV dec slope: 644.2 cm/sec2 MV dec time: 0.14 sec PA V2 max: TR max julián: MV P1/2t-pr_phl: 55.5 cm/sec 347.5 cm/sec 71.6 msec PA max P.2 mmHg TR max P.3 mmHg Left Ventricle The left ventricle is normal in size. There is normal left ventricular wall thickness. Due to the poor quality of the echocardiogram, an assessment of left ventricular ejection fraction cannot be made. Best estimate is 25-30%. Left ventricular systolic function is moderate to severely reduced. LV diastolic function not assessed. There is moderate global hypokinesis of the left ventricle. Right Ventricle The right ventricle is mildly dilated. Echogenic structure at RV aoex consistent with Leadless pacemaker( noted in history ). The right ventricular systolic function is moderately reduced. Atria The right atrium is mildly dilated. Mitral Valve There is a mechanical mitral valve. The prosthetic mitral valve is well- seated. The prosthetic mitral valve appears to open well. Aortic Valve The aortic valve is sclerotic and shows some degree of functional abnormality. The aortic valve is mildly calcified. The aortic valve opens well. There is no aortic valve stenosis. No aortic regurgitation is present. Tricuspid Valve The tricuspid valve is not well visualized, but is grossly normal. There is a mild amount of tricuspid regurgitation. Right ventricular systolic pressure is estimated to be elevated at 50-60mmHg. There is mild to moderate pulmonary hypertension by echo. Pulmonic Valve The pulmonic valve is not well visualized. Great Vessels The aortic root is normal size. The inferior vena cava appeared normal and decreased < 50% with respiration (RAP 10-15 mmHg). Effusions There is no pericardial effusion. : NILAY GERMAN Anil
--- NOTE | 2020-06-07 21:47 | EKG REPORT ---
SEVERITY:- ABNORMAL ECG - SINUS RHYTHM NONSPECIFIC IVCD WITH LAD ABNRM R PROG, CONSIDER ASMI OR LEAD PLACEMENT : Confirmed by: Dk Shields MD 07-Jun-2020 21:46:26
[2020-06-07] MEDS: METOPROLOL TARTRATE 50 MG TABLET PO SCH (22:06)
[2020-06-07 22:17] LABS: HEMATOCRIT 48.8 % (37.9-51.0); HEMOGLOBIN 15.7 g/dL (13.5-17.0); MEAN CORPUSCULAR HEMOGLOBIN 28.9 pg (27.0-33.4); MEAN CORPUSCULAR HGB CONC 32.3 g/dL (32.0-36.0); MEAN CORPUSCULAR VOLUME 90 fl (80-97); PLATELET COUNT 289 10^3/uL (150-450); RED BLOOD COUNT 5.45 10^6/uL (4.35-5.55); RED CELL DISTRIBUTION WIDTH 20.3 % (11.5-14.0); WHITE BLOOD COUNT 9.5 10^3/uL (4.0-10.5)
[2020-06-07 22:19] LABS: APPEARANCE,URINE CLEAR; BILIRUBIN,URINE NEGATIVE (NEGATIVE); COLOR,URINE STRAW; GLUCOSE, URINE NEGATIVE (NEGATIVE); KETONES,URINE NEGATIVE (NEGATIVE); LEUKOCYTE ESTERASE,URINE NEGATIVE (NEGATIVE); NITRITE,URINE NEGATIVE (NEGATIVE); PROTEIN,URINE NEGATIVE (NEGATIVE); URINE SPECIFIC GRAVITY 1.009; UROBILINOGEN,URINE NEGATIVE mg/dL (<2.0)
[2020-06-07 22:26] LABS: INTERNATIONAL RATION (INR) 1.54; PROTHROMBIN TIME 18.7 SEC (11.4-15.4)
[2020-06-07 22:27] LABS: PARTIAL THROMBOPLASTIN TIME 28.2 SEC (23.5-35.8)
[2020-06-07] MEDS: HEPARIN SOD (PORCINE) 1,000 UNIT/ML 10 ML VIAL IV PRN (22:59)
[2020-06-07] MEDS: HEPARIN SODIUM,PORCINE/D5W 25,000 UNIT/250 ML RTUINJ IV PRN (23:01)
[2020-06-08] MEDS: IPRATROPIUM/ALBUTEROL 0.5-2.5 MG/3 ML AMPUL NEB SCH ×4 (01:34→20:09)
[2020-06-08] MEDS: PANTOPRAZOLE SODIUM 40 MG TABLET.DR PO SCH ×2 (05:21→18:53)
[2020-06-08 06:12] LABS: HEMATOCRIT 41.6 % (37.9-51.0); HEMOGLOBIN 13.8 g/dL (13.5-17.0); MEAN CORPUSCULAR HEMOGLOBIN 29.2 pg (27.0-33.4); MEAN CORPUSCULAR HGB CONC 33.1 g/dL (32.0-36.0); MEAN CORPUSCULAR VOLUME 88 fl (80-97); PLATELET COUNT 217 10^3/uL (150-450); RED BLOOD COUNT 4.71 10^6/uL (4.35-5.55); WHITE BLOOD COUNT 6.2 10^3/uL (4.0-10.5)
[2020-06-08 06:48] LABS: ALBUMIN 3.2 g/dL (3.5-5.0); ALKALINE PHOSPHATASE 148 U/L (38-126); ANION GAP 7 (5-19); ASPARTATE AMINO TRANSFERASE 26 U/L (17-59); BILIRUBIN,DIRECT 0.5 mg/dL (0.0-0.4); BILIRUBIN,TOTAL 1.5 mg/dL (0.2-1.3); BLOOD UREA NITROGEN 32 mg/dL (7-20); CALCIUM 9.9 mg/dL (8.4-10.2); CARBON DIOXIDE 27 mmol/L (22-30); CHLORIDE 100 mmol/L (98-107); CHOLESTEROL 147.93 mg/dL (0-200); CREATINE KINASE 35 U/L (55-170); GLUCOSE 78 mg/dL (75-110); POTASSIUM 3.7 mmol/L (3.6-5.0); TOTAL PROTEIN 6.3 g/dL (6.3-8.2); TRIGLYCERIDES 57 mg/dL (<150)
[2020-06-08 06:50] LABS: INTERNATIONAL RATION (INR) 1.56; PROTHROMBIN TIME 18.9 SEC (11.4-15.4)
[2020-06-08 06:59] LABS: DIRECT LDL 91 mg/dL (<100)
[2020-06-08 07:14] LABS: PARTIAL THROMBOPLASTIN TIME 108.8 SEC (23.5-35.8)
[2020-06-08] MEDS ORDERED: BUMETANIDE 1 MG TABLET PO SCH (10:00)
[2020-06-08] MEDS ORDERED: (PENDING PHARMACY ID) (Midodrine Hcl [Midodrine Hcl] 10 MG) PO SCH (10:00)
[2020-06-08] MEDS: MIDODRINE HCL 5 MG TABLET PO SCH ×3 (11:13→18:53)
[2020-06-08] MEDS: METOPROLOL TARTRATE 50 MG TABLET PO SCH ×2 (11:13→22:52)
--- NOTE | 2020-06-08 12:41 | PDOC PROGRESS REPORT ---
Subjective Progress Note for:: 06/08/20 Subjective:: 59 year old male with a history of congestive heart failure, pacemaker short- term dialysis still has a dialysis catheter, hypertension, atrial fibrillation on warfarin came in with complaints of shortness of breath and difficulty in ambulation. Patient's nephew called the EMS because of the patient's poor living condition EMS found that heart rate is more than 100 thinking it was a V. tach give him a shock. By the time patient arrival at the ER he is in sinus r hythm heart rate is in the 80s. Initial lactic acid level is one-point 0 repeat lactic acid is 2.1. Patient denies any fevers denies any chills denies any headaches dizzy spells nausea vomiting diarrhea. His main complaint is shortness of breath and difficulty in ambulation at home. Consulted with Dr. Cornelius Root was requested by the ER. 06/08/2020-patient is on heparin drip at this time Coumadin is on hold. CT scan shows large right-sided pleural effusion going for thoracentesis today. C omfortably in the bed not in distress. Reason For Visit: V TACHYCARDIA Physical Exam Vital Signs: Temp Pulse Resp BP Pulse Ox 97.6 F 80 17 107/78 97 06/08/20 03:43 06/08/20 09:17 06/08/20 09:17 06/08/20 07:35 06/08/20 09:17 Intake & Output 06/07/20 06/08/20 06/09/20 06:59 06:59 06:59 Intake Total 74 Output Total 685 Balance -685 74 Weight 56.5 kg General appearance: PRESENT: no acute distress, cooperative, thin Head exam: PRESENT: atraumatic Eye exam: PRESENT: PERRLA Ear exam: PRESENT: normal external ear exam Mouth exam: PRESENT: neck supple Teeth exam: PRESENT: poor dentation Neck exam: ABSENT: carotid bruit, JVD, lymphadenopathy, thyromegaly Respiratory exam: PRESENT: decreased breath sounds Cardiovascular exam: PRESENT: RRR. ABSENT: diastolic murmur, rubs, systolic murmur Vascular exam: PRESENT: normal capillary refill GI/Abdominal exam: PRESENT: ascites, normal bowel sounds Rectal exam: PRESENT: deferred Extremities exam: PRESENT: full ROM. ABSENT: calf tenderness, clubbing, pedal edema Neurological exam: PRESENT: alert, awake, oriented to person, oriented to place, oriented to time, oriented to situation, CN II-XII grossly intact. ABSENT: motor sensory deficit Psychiatric exam: PRESENT: appropriate affect, normal mood. ABSENT: homicidal ideation, suicidal ideation Results Laboratory Results: 06/08/20 05:25 06/08/20 05:25 06/07/20 06/07/20 06/07/20 12:24 12:24 15:08 WBC 7.7 RBC 4.91 Hgb 14.4 Hct 43.8 MCV 89 MCH 29.3 MCHC 32.8 RDW 20.7 H Plt Count 265 Seg Neutrophils % Not Reportable Sodium 132.9 L Potassium 4.0 Chloride 104 Carbon Dioxide 22 Anion Gap 7 BUN 30 H Creatinine 1.70 H Est GFR ( Amer) 50 L Glucose 95 Lactic Acid 2.3 H Calcium 9.0 Magnesium Total Bilirubin 1.3 AST 35 Alkaline Phosphatase 158 H Total Protein 6.6 Albumin 3.4 L Triglycerides Cholesterol LDL Cholesterol Direct VLDL Cholesterol HDL Cholesterol Lipase 32.3 TSH Urine Color Urine Appearance Urine pH Ur Specific [place] Urine Protein Urine Glucose (UA) Urine Ketones Urine Blood Urine Nitrite Ur Leukocyte Esterase 06/07/20 06/07/20 06/08/20 21:42 22:01 05:25 WBC 9.5 RBC 5.45 Hgb 15.7 Hct 48.8 MCV 90 MCH 28.9 MCHC 32.3 RDW 20.3 H Plt Count 289 Seg Neutrophils % Sodium 134.1 L Potassium 3.7 Chloride 100 Carbon Dioxide 27 Anion Gap 7 BUN 32 H Creatinine 1.86 H Est GFR ( Amer) 45 L Glucose 78 Lactic Acid Calcium 9.9 Magnesium 2.1 Total Bilirubin 1.5 H AST 26 Alkaline Phosphatase 148 H Total Protein 6.3 Albumin 3.2 L Triglycerides 57 Cholesterol 147.93 LDL Cholesterol Direct 91 VLDL Cholesterol 11.0 HDL Cholesterol 40 Lipase TSH Urine Color STRAW Urine Appearance CLEAR Urine pH 6.0 Ur Specific [place] 1.009 Urine Protein NEGATIVE Urine Glucose (UA) NEGATIVE Urine Ketones NEGATIVE Urine Blood SMALL H Urine Nitrite NEGATIVE Ur Leukocyte Esterase NEGATIVE 06/08/20 06/08/20 05:25 05:25 WBC 6.2 RBC 4.71 Hgb 13.8 Hct 41.6 MCV 88 MCH 29.2 MCHC 33.1 RDW 20.0 H Plt Count 217 Seg Neutrophils % Sodium Potassium Chloride Carbon Dioxide Anion Gap BUN Creatinine Est GFR ( Amer) Glucose Lactic Acid Calcium Magnesium Total Bilirubin AST Alkaline Phosphatase Total Protein Albumin Triglycerides Cholesterol LDL Cholesterol Direct VLDL Cholesterol HDL Cholesterol Lipase TSH 9.43 H Urine Color Urine Appearance Urine pH Ur Specific [place] Urine Protein Urine Glucose (UA) Urine Ketones Urine Blood Urine Nitrite Ur Leukocyte Esterase 06/07/20 06/07/20 06/07/20 12:24 12:24 15:08 Creatine Kinase 34 L Troponin I 0.035 0.041 NT-Pro-B Natriuret Pep 06/07/20 06/07/20 06/08/20 16:45 22:01 05:25 Creatine Kinase 35 L 40 L 35 L Troponin I NT-Pro-B Natriuret Pep 06/08/20 05:25 Creatine Kinase Troponin I NT-Pro-B Natriuret Pep [id number] H Impressions: Chest X-Ray 06/07/20 12:30 IMPRESSION: Loculated right pleural effusion with masslike opacification in the right base. The effusion has increased since the prior study of 04/06/2020. Chest CT 06/07/20 12:51 IMPRESSION: Large loculated right pleural effusion with opacification in the right base, likely right lower lobe atelectasis. The effusion has increased since the prior study of 03/31/2020. Small left pleural effusion. Head CT 06/07/20 13:02 IMPRESSION: Stable CT of the brain with bifrontal encephalomalacia. No acute intracranial event. EVIDENCE OF ACUTE STROKE: NO. Abdomen/Pelvis CT 06/07/20 13:03 IMPRESSION: There is a large amount of ascites. 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 No other significant finding. Assessment and Plan - Diagnosis (1) Ventricular tachyarrhythmia Is this a current diagnosis for this admission?: Yes Plan: 06/07/2020-patient is going to be admitted to [facility] as an inpatient because of questionable V. tach status post shock by the EMS. Cardiology consult was requested serial troponins will be requested. He is a full code. Consultation with Dr. Shieldsanil requested. Echocardiogram is requested. 06/08/2020-heart rate today is 94. In sinus rhythm. Recently on heparin drip. Latest troponin is 0.041. BNP is 16,800. (2) COPD (chronic obstructive pulmonary disease) Qualifiers: Is this a current diagnosis for this admission?: No Plan: 06/07/20-patient has history of COPD secondary to chronic smoking as per the patient his quit smoking 6 months ago. Pulse ox is within normal limits in the emergency room. 06/08/2020-patient has history of COPD pulse ox is 94% 2 L. Comfortably in the bed communicating well. (3) Atrial fibrillation Is this a current diagnosis for this admission?: No Plan: 06/07/2020-patient has history of chronic longstanding atrial fibrillation. On warfarin at home. INR is 1.44 in the ER. Plan is to continue Coumadin and recheck INR tomorrow. 06/08/2020-patient has history of chronic longstanding atrial fibrillation. On warfarin at home. Warfarin is on hold presently on heparin drip. (4) Ascites Is this a current diagnosis for this admission?: No Plan: 06/07/2020-patient has history of chronic ascites most likely secondary to end- stage renal disease, history of alcohol abuse causing liver cirrhosis. (5) Pleural effusion Is this a current diagnosis for this admission?: Yes Plan: 06/07/2020-patient has a large pleural effusion on the right side to arrange for a thoracentesis tomorrow. 06/08/2020-patient has loculated right-sided pleural effusion as per the radiology patient need a chest tube. Patient also agreed for chest tube placement. (6) ESRD (end stage renal disease) on dialysis Is this a current diagnosis for this admission?: No Plan: 06/07/2020-patient has history of hemodialysis for a short while still carrying the dialysis catheter on the left side of the chest. Creatinine is 1.7 potassium within normal limits. Plan is to recheck the labs tomorrow. 06/08/2020-serum creatinine today 1.86. Patient has stage III kidney disease. Serum potassium is 3.7. No need for dialysis at this time. Patient has a dialysis access present on the left side of the chest. (7) Shortness of breath Is this a current diagnosis for this admission?: Yes Plan: 06/07/2020-patient came with complaints of shortness of breath. No obvious pneumonia seen. There is a small left-sided pleural effusion and a large right- sided pleural effusion. To arrange for thoracentesis tomorrow. 06/08/2020-patient laying flat in the bed denies any shortness of breath. Pulse ox is 94% on 2 L. (8) CHF (congestive heart failure) Is this a current diagnosis for this admission?: No Plan: 06/07/2020-patient has history of congestive heart failure with cardiomegaly and bilateral pleural effusions and echocardiogram was requested. I do not have the previous echocardiogram report available. 12/09/2019-echocardiogram was done yesterday EF is around 25 to 30%. Joni is to put him on beta-blockers, CHICA inhibitor's, if needed and spironolactone.
[2020-06-08] MEDS: FLUTICASONE NASAL SPRAY 50 MCG/SPRY 120 SPRAY/16 GM NASL SCH (13:26)
--- NOTE | 2020-06-08 13:35 | PDOC CONSULTATION ---
Consultation Consult Date: 06/08/20 Provider Consulted: ROLANDO CHENG Consult reason:: CHF, ventricular tachycardia History of Present Illness Admission Date/PCP: 06/07/20 16:07 SUJIT AMARO PA-C History of Present Illness: SHAHRZAD JAIN is a 59 year old male 59-year-old male with complicated medical history 1. End-stage renal disease 2. Mechanical mitral valve 3. Leadless permanent pacemaker 4. Systemic anticoagulation-warfarin 5. Persistent atrial fibrillation 6. Congestive heart failure-systolic 7. Hypotension 8. Pleural effusion 9. COPD 10. Cachexia Patient was admitted via the emergency room. He was found down. Emergency medical services found him to be unresponsive. Was found to be in wide-complex tachycardia with a rate of 220 bpm. He was externally defibrillated once with 100 J shock which was successful. This is resulted in sinus rhythm. Patient does not relate good history. He admits to the fact that he stopped taking warfarin approximately a month ago. Apparently he is presently not on dialysis. Presently denies any chest pain or discomfort. Radiological evaluation showed that he has bilateral pleural effusions with a large right loculated pleural effusion which likely requires chest tube placement. He also does have ascites. Overall he has become quite cachectic and malnourished. Past Medical History Cardiac Medical History: Reports: Atrial Fibrillation, Hypertension Pulmonary Medical History: Reports: Chronic Obstructive Pulmonary Disease (COPD), Respiratory Failure Denies: Tuberculosis Neurological Medical History: Reports: Seizures - LAST 5 YR AGO Renal/ Medical History: Reports: End Stage Renal Disease Psychiatric Medical History: Denies: Depression Hematology: Reports: Anemia Past Surgical History Past Surgical History: Reports: Orthopedic Surgery - hip, arm, Pacemaker, Valve Replacement - Mechanical mitral valve replacement, October 2019, Other - Complicated mitral valve replacement for severe mitral stenosis? Social History Lives with: Alone Smoking Status: Unknown if Ever Smoked Electronic Cigarette use?: No Frequency of Alcohol Use: Occasional Hx Recreational Drug Use: No Drugs: None Hx Prescription Drug Abuse: No - Advance Directive Resuscitation Status: Full Code Family History Family History: Reviewed & Not Pertinent, CAD Parental Family History Reviewed: Yes - No familial illnesses Children Family History Reviewed: NA Sibling(s) Family History Reviewed.: NA Medication/Allergy Home Medications: Fluticasone Propionate [Flonase Nasal [place] 50 Mcg/[place] 16 gm] 2 spray NASL DAILY 03/14/20 Metoprolol Tartrate [Lopressor 50 mg Tablet] 50 mg PO Q12 30 Days #60 tablet 03/23/20 Bumetanide [Bumex 1 mg Tablet] 0.5 mg PO DAILY 30 Days #15 tablet 04/08/20 Midodrine HCl 10 mg PO TID 30 Days #90 tablet 04/08/20 Warfarin Sodium [Coumadin 3 mg Tablet] 3 mg PO QHS 30 Days #30 tablet 04/08/20 Furosemide [Lasix 40 mg Tablet] 40 mg PO QAM 06/07/20 Allergies/Adverse Reactions: No Known Allergies Allergy (Verified 06/08/20 00:39) Review of Systems Constitutional: PRESENT: as per HPI Nose, Mouth, and Throat: PRESENT: as per HPI Cardiovascular: PRESENT: dyspnea on exertion, edema Respiratory: PRESENT: dyspnea Physical Exam Vital Signs: Temp Pulse Resp BP Pulse Ox 97.6 F 80 17 107/78 97 06/08/20 03:43 06/08/20 09:17 06/08/20 09:17 06/08/20 07:35 06/08/20 09:17 Intake & Output 06/07/20 06/08/20 06/09/20 06:59 06:59 06:59 Intake Total 74 Output Total 685 Balance -685 74 Weight 56.5 kg General appearance: PRESENT: thin, other - Cachectic Head exam: PRESENT: atraumatic, normocephalic, other - Gaunt facies Eye exam: PRESENT: conjunctiva pale Mouth exam: PRESENT: moist Respiratory exam: PRESENT: decreased breath sounds, symmetrical, unlabored Cardiovascular exam: PRESENT: RRR, +S1, +S2, systolic murmur Pulses: PRESENT: normal radial pulses Vascular exam: PRESENT: other - Left chest wall permacath site skin around it is unhealthy GI/Abdominal exam: PRESENT: distended Rectal exam: PRESENT: deferred Neurological exam: PRESENT: alert, awake, oriented to person, oriented to place Psychiatric exam: PRESENT: appropriate affect Skin exam: PRESENT: dry, intact Results Laboratory Results: 06/08/20 05:25 06/08/20 05:25 06/07/20 06/07/20 06/07/20 15:08 21:42 22:01 WBC 9.5 RBC 5.45 Hgb 15.7 Hct 48.8 MCV 90 MCH 28.9 MCHC 32.3 RDW 20.3 H Plt Count 289 Sodium Potassium Chloride Carbon Dioxide Anion Gap BUN Creatinine Est GFR ( Amer) Glucose Lactic Acid 2.3 H Calcium Magnesium Total Bilirubin AST Alkaline Phosphatase Total Protein Albumin Triglycerides Cholesterol LDL Cholesterol Direct VLDL Cholesterol HDL Cholesterol TSH Urine Color STRAW Urine Appearance CLEAR Urine pH 6.0 Ur Specific [place] 1.009 Urine Protein NEGATIVE Urine Glucose (UA) NEGATIVE Urine Ketones NEGATIVE Urine Blood SMALL H Urine Nitrite NEGATIVE Ur Leukocyte Esterase NEGATIVE 06/08/20 06/08/20 06/08/20 05:25 05:25 05:25 WBC 6.2 RBC 4.71 Hgb 13.8 Hct 41.6 MCV 88 MCH 29.2 MCHC 33.1 RDW 20.0 H Plt Count 217 Sodium 134.1 L Potassium 3.7 Chloride 100 Carbon Dioxide 27 Anion Gap 7 BUN 32 H Creatinine 1.86 H Est GFR ( Amer) 45 L Glucose 78 Lactic Acid Calcium 9.9 Magnesium 2.1 Total Bilirubin 1.5 H AST 26 Alkaline Phosphatase 148 H Total Protein 6.3 Albumin 3.2 L Triglycerides 57 Cholesterol 147.93 LDL Cholesterol Direct 91 VLDL Cholesterol 11.0 HDL Cholesterol 40 TSH 9.43 H Urine Color Urine Appearance Urine pH Ur Specific [place] Urine Protein Urine Glucose (UA) Urine Ketones Urine Blood Urine Nitrite Ur Leukocyte Esterase 06/07/20 06/07/20 06/07/20 12:24 12:24 15:08 Creatine Kinase 34 L Troponin I 0.035 0.041 NT-Pro-B Natriuret Pep 06/07/20 06/07/20 06/08/20 16:45 22:01 05:25 Creatine Kinase 35 L 40 L 35 L Troponin I NT-Pro-B Natriuret Pep 06/08/20 05:25 Creatine Kinase Troponin I NT-Pro-B Natriuret Pep [id number] H EKG Comments: Review of emergency medical services tracings suggest the presence of wide- complex tachycardia at 220 bpm which was externally defibrillated with 100 J shock with resumption of sinus rhythm. Twelve-lead EKG 06/07/2020. Independently reviewed by me. Sinus rhythm, low voltage, poor R wave progression, 90 bpm, QTC is 500 ms Transthoracic echocardiogram 06/07/2020 Left ventricular ejection fraction is hard to estimate but best estimate is 25 to 30% Mechanical mitral valve Leadless pacemaker RV apex Mild tricuspid regurgitation CT chest abdomen pelvis 06/07/2020 Large ascites. Large loculated right pleural effusion right lower lobe atelectasis small left pleural effusion Impressions: Chest X-Ray 06/07/20 12:30 IMPRESSION: Loculated right pleural effusion with masslike opacification in the right base. The effusion has increased since the prior study of 04/06/2020. Chest CT 06/07/20 12:51 IMPRESSION: Large loculated right pleural effusion with opacification in the right base, likely right lower lobe atelectasis. The effusion has increased since the prior study of 03/31/2020. Small left pleural effusion. Head CT 06/07/20 13:02 IMPRESSION: Stable CT of the brain with bifrontal encephalomalacia. No acute intracranial event. EVIDENCE OF ACUTE STROKE: NO. Abdomen/Pelvis CT 06/07/20 13:03 IMPRESSION: There is a large amount of ascites. 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 No other significant finding. Assessment & Plan - Diagnosis (1) Atrial fibrillation Is this a current diagnosis for this admission?: Yes Plan: Patient is in sinus rhythm status post cardioversion. It is imperative that systemic anticoagulation be continued. Systemic anticoagulation with warfarin with target INR 2-3 given atrial fibrillation as well as mechanical mitral valve In anticipation of invasive procedures including chest tube placement it is reasonable to continue unfractionated heparin with plans to initiate warfarin when invasive procedures have been completed. (2) CHF (congestive heart failure) Is this a current diagnosis for this admission?: Yes Plan: Systolic congestive heart failure Left ventricular ejection fraction is hard to estimate but appears to have diminished compared to previous admission. I suspect the patient has significant component of cardiorenal syndrome. He is demonstrating ascites as well as pleural effusion. Would strongly consider renal replacement therapy (3) Ventricular tachyarrhythmia Is this a current diagnosis for this admission?: Yes Plan: Review of rhythm strips available from EMS suggest presence of wide-complex tachycardia with a rate of 220 bpm. Dilated cardiomyopathy is also apparent This makes ventricular tachycardia the most possible diagnosis Technically patient has had aborted sudden cardiac and would require implantable cardioverter defibrillator I suspect that he had recent ischemic evaluation prior to valve surgery including evaluation of coronaries. Presentation does not suggest myocardial ischemia. However any decision to pursue defibrillator therapy is complicated by the fact that the patient's overall functional status is quite poor and he has multiorgan dysfunction and is quite malnourished and cachectic. I seriously doubt his ab ility to tolerate invasive procedures and do worry about his life expectancy. Would recommend aggressive beta-jelani and perhaps amiodarone especially if there is more episodes of ventricular arrhythmia. Maintain magnesium above 2 mg/dL Maintain potassium between 4 to 5 mEq/L Especially since patient is going to have chest tube placed it would be quite reasonable to pursue a wearable defibrillator as a stopgap arrangement. (4) CHF exacerbation Qualifiers: Heart failure type: unspecified Qualified Code(s): I50.9 - Heart failure, unspecified Is this a current diagnosis for this admission?: Yes Plan: Patient appears to be volume overloaded with pleural effusion as well as ascites. CKD with poor renal function. I suspect he will require renal replacement therapy and ultrafiltration. (5) CKD (chronic kidney disease) requiring chronic dialysis Is this a current diagnosis for this admission?: Yes Plan: Patient had previously been on renal replacement therapy and dialysis. His behavior suggest that he may continue to need this. Previous episodes to dialyze have been complicated by hypotension requiring addition of Midrin and other agents to boost his blood pressure.
--- NOTE | 2020-06-08 13:41 | RADIOLOGY REPORT (SQ) ---
EXAM DESCRIPTION: CHEST SINGLE VIEW IMAGES COMPLETED DATE/TIME: 06/08/2020 1:26 pm REASON FOR STUDY: post thora COMPARISON: 06/07/2020 EXAM PARAMETERS: NUMBER OF VIEWS: One view. TECHNIQUE: Single frontal radiographic view of the chest acquired. RADIATION DOSE: NA LIMITATIONS: None. FINDINGS: LUNGS AND PLEURA: Interval placement of a right basilar chest tube with persistent loculat ed right-sided pleural effusion, decreased from prior. Mildly improved right basilar aeration. No a ppreciable pneumothorax. Unremarkable left hemithorax. MEDIASTINUM AND HILAR STRUCTURES: Stable. HEART AND VASCULAR STRUCTURES: Stable. BONES: No acute findings. HARDWARE: Sternotomy hardware. Aortic valvular prostheses. Left internal jugular tunneled hemodialy sis catheter with tip at cavoatrial junction. Loop recorder overlies left chest. New small bore rig ht basilar chest tube. OTHER: No other significant finding. IMPRESSION: Interval placement of a right basilar chest tube with decreased but persistent loculated right-sided effusion. No pneumothorax. TECHNICAL DOCUMENTATION: JOB ID: [id number] 2010 [employer]- All Rights Reserved Reading location - IP/workstation name: [email or web address]
--- NOTE | 2020-06-08 15:42 | RADIOLOGY REPORT (SQ) ---
EXAM DESCRIPTION: CHEST SINGLE VIEW IMAGES COMPLETED DATE/TIME: 06/08/2020 3:25 pm REASON FOR STUDY: 2 hour post thora COMPARISON: Same day radiograph EXAM PARAMETERS: NUMBER OF VIEWS: One view. TECHNIQUE: Single frontal radiographic view of the chest acquired. RADIATION DOSE: NA LIMITATIONS: None. FINDINGS: LUNGS AND PLEURA: Small bore right basilar chest tube with continued decreased size of the pleural effusion. . Persistent moderate effusion and patchy basilar opacities. Lucency on the rig ht hemithorax possibly small pneumothorax versus layering effusion. Unremarkable left hemithorax. MEDIASTINUM AND HILAR STRUCTURES: Stable. HEART AND VASCULAR STRUCTURES: Stable. BONES: No acute findings. HARDWARE: Left internal jugular central venous catheter tip at cavoatrial junction. Aortic valvular prosthesis. Sternotomy hardware. Loop recorder overlies left chest. OTHER: No other significant finding. IMPRESSION: Stable small bore right basilar chest tube with continued decreased size of the loculate d pleural effusion. Persistent mild effusion and patchy basilar opacities. Possible small right pne umothorax versus layering effusion. TECHNICAL DOCUMENTATION: JOB ID: [id number] 2010 [employer]- All Rights Reserved Reading location - IP/workstation name: [email or web address]
[2020-06-08] MEDS: ACETAMINOPHEN 325 MG TABLET PO PRN ×2 (15:50→20:10)
--- NOTE | 2020-06-08 15:52 | RADIOLOGY REPORT (SQ) ---
EXAM DESCRIPTION: U/S THORACENTESIS W/CHEST TUBE IMAGES COMPLETED DATE/TIME: 06/08/2020 2:25 pm REASON FOR STUDY: rt plural effusion COMPARISON: CT of the chest 06/07/2020 RADIATION DOSE: None LIMITATIONS: None. PROCEDURE: Procedure, risks, benefit, and alternative explained to patient who then gave written con sent. The posterior right chest wall was marked using ultrasound guidance. A time-out was called fo r correct marking verification. Chest prepped and draped using sterile technique. Local anesthesia a chieved using 10 ml of 1% lidocaine injection. A we would was introduced into the right pleural spac e. A 0.035 guidewire was advanced through the needle into the pleural space. The needle wrist remov ed. A 10 [place] all-purpose drain catheter was placed into the pleural cavity and a wire removed. T he catheter was placed to Pleur-Evac. Patient tolerated the procedure well nurse no known complicati ons. Images acquired during the procedure were stored on PACS. FINDINGS: ENTRY SITE: posterior right chest. 10 [place] chest tube placed. IMPRESSION: SUCCESSFUL THORACENTESIS AND CHEST TUBE PLACEMENT USING ULTRASOUND GUIDANCE. COMMENT: Patient medication list reviewed: Yes- Quality ID# [id number]:Eligible professional attests to doc umenting in the medical record they obtained, updated, or reviewed the patient's current medications. TECHNICAL DOCUMENTATION: JOB ID: [id number] 2010 [employer]- All Rights Reserved Reading location - IP/workstation name: [email or web address] [email or web address]
[2020-06-08] MEDS ORDERED: NORMAL SALINE 1000 ML 1,000 ML IV ONE (16:45)
--- NOTE | 2020-06-08 17:33 | RADIOLOGY REPORT (SQ) ---
EXAM DESCRIPTION: CHEST SINGLE VIEW IMAGES COMPLETED DATE/TIME: 06/08/2020 4:27 pm REASON FOR STUDY: new r shoulder/back pain post chest tube insertion COMPARISON: 06/08/2020 EXAM PARAMETERS: NUMBER OF VIEWS: One view. TECHNIQUE: Single frontal radiographic view of the chest acquired. RADIATION DOSE: NA LIMITATIONS: None. FINDINGS: LUNGS AND PLEURA: There appears to be a stable partially loculated right pleural effusion with some associated airspace disease. MEDIASTINUM AND HILAR STRUCTURES: No masses. Contour normal. HEART AND VASCULAR STRUCTURES: Heart normal in size. Normal vasculature. BONES: No acute findings. HARDWARE: Small bore pigtail catheter in the right base. Sternotomy wires. Heart valve. Dual-lumen catheter. Loop recorder. OTHER: No other significant finding. IMPRESSION: The appearance of the chest is stable compared to the earlier study. TECHNICAL DOCUMENTATION: JOB ID: [id number] 2010 [employer]- All Rights Reserved Reading location - IP/workstation name: [email or web address]
[2020-06-08] MEDS: DOPAMINE HCL/DEXTROSE 5%-WATER 800 MG/250 ML RTUINJ IV PRN (18:53)
[2020-06-08] MEDS: ONDANSETRON HCL INJ/PF 4 MG/2 ML SDV IV PRN (22:51)
[2020-06-08 23:34] LABS: APPEARANCE,URINE CLEAR; BILIRUBIN,URINE NEGATIVE (NEGATIVE); COLOR,URINE YELLOW; GLUCOSE, URINE NEGATIVE (NEGATIVE); KETONES,URINE NEGATIVE (NEGATIVE); LEUKOCYTE ESTERASE,URINE NEGATIVE (NEGATIVE); NITRITE,URINE NEGATIVE (NEGATIVE); PROTEIN,URINE NEGATIVE (NEGATIVE); URINE SPECIFIC GRAVITY 1.014; UROBILINOGEN,URINE NEGATIVE mg/dL (<2.0)
[2020-06-09] MEDS: IPRATROPIUM/ALBUTEROL 0.5-2.5 MG/3 ML AMPUL NEB SCH ×4 (01:56→21:04)
[2020-06-09] MEDS: PANTOPRAZOLE SODIUM 40 MG TABLET.DR PO SCH ×2 (05:28→16:28)
[2020-06-09] MEDS ORDERED: KETOROLAC TROMETHAMINE INJ/PF 30 MG/1 ML SDV ONE (07:03)
[2020-06-09] MEDS ORDERED: KETOROLAC TROMETHAMINE INJ/PF 30 MG/1 ML SDV IV ONE (08:00)
[2020-06-09 08:44] LABS: ABSOLUTE BASOPHILS # (AUTO) 0.1 10^3/uL (0.0-0.2); MEAN CORPUSCULAR VOLUME 89 fl (80-97); TOTAL CELLS COUNTED % (AUTO) 100 %
[2020-06-09 08:45] LABS: HEMATOCRIT 50.7 % (37.9-51.0); MEAN CORPUSCULAR HEMOGLOBIN 28.9 pg (27.0-33.4); MEAN CORPUSCULAR HGB CONC 32.4 g/dL (32.0-36.0); PLATELET COUNT 277 10^3/uL (150-450); RED BLOOD COUNT 5.67 10^6/uL (4.35-5.55); RED CELL DISTRIBUTION WIDTH 20.9 % (11.5-14.0); WHITE BLOOD COUNT 11.5 10^3/uL (4.0-10.5)
[2020-06-09 08:47] LABS: ABSOLUTE EOSINOPHILS # (AUTO) 0.2 10^3/uL (0.0-0.6); ABSOLUTE LYMPHOCYTES (AUTO) 0.6 10^3/uL (0.5-4.7); ABSOLUTE MONOCYTES (AUTO) 0.8 10^3/uL (0.1-1.4); ABSOLUTE NEUT (AUTO) 9.8 10^3/uL (1.7-8.2); EOSINOPHILS % (AUTO) 1.4 % (0-6); LYMPHOCYTES % (AUTO) 5.6 % (13-45); MONOCYTES % (AUTO) 6.7 % (3-13); SEGMENTED NEUTROPHILS % (AUTO) 85.3 % (42-78)
[2020-06-09 08:55] LABS: HEMOGLOBIN 16.4 g/dL (13.5-17.0)
[2020-06-09] MEDS ORDERED: SPIRONOLACTONE 25 MG TABLET PO SCH (10:00)
[2020-06-09 10:30] LABS: ALBUMIN 3.3 g/dL (3.5-5.0); ALKALINE PHOSPHATASE 149 U/L (38-126); ANION GAP 9 (5-19); ASPARTATE AMINO TRANSFERASE 34 U/L (17-59); BILIRUBIN,DIRECT 0.4 mg/dL (0.0-0.4); BILIRUBIN,TOTAL 1.2 mg/dL (0.2-1.3); BLOOD UREA NITROGEN 36 mg/dL (7-20); CALCIUM 9.4 mg/dL (8.4-10.2); CARBON DIOXIDE 26 mmol/L (22-30); CHLORIDE 98 mmol/L (98-107); GLUCOSE 115 mg/dL (75-110); POTASSIUM 4.1 mmol/L (3.6-5.0); TOTAL PROTEIN 6.9 g/dL (6.3-8.2)
[2020-06-09] MEDS: FLUTICASONE NASAL SPRAY 50 MCG/SPRY 120 SPRAY/16 GM NASL SCH (10:35)
[2020-06-09] MEDS: METOPROLOL TARTRATE 50 MG TABLET PO SCH ×2 (10:35→21:50)
[2020-06-09] MEDS: MIDODRINE HCL 5 MG TABLET PO SCH ×3 (10:35→18:58)
--- NOTE | 2020-06-09 13:15 | PDOC PROGRESS REPORT ---
Subjective Progress Note for:: 06/09/20 Subjective:: 59 year old male with a history of congestive heart failure, pacemaker short- term dialysis still has a dialysis catheter, hypertension, atrial fibrillation on warfarin came in with complaints of shortness of breath and difficulty in ambulation. Patient's nephew called the EMS because of the patient's poor living condition EMS found that heart rate is more than 100 thinking it was a V. tach give him a shock. By the time patient arrival at the ER he is in sinus r hythm heart rate is in the 80s. Initial lactic acid level is one-point 0 repeat lactic acid is 2.1. Patient denies any fevers denies any chills denies any headaches dizzy spells nausea vomiting diarrhea. His main complaint is shortness of breath and difficulty in ambulation at home. Consulted with Dr. Cornelius Root was requested by the ER. 06/08/2020-patient is on heparin drip at this time Coumadin is on hold. CT scan shows large right-sided pleural effusion going for thoracentesis today. C omfortably in the bed not in distress. 06/09/2020-patient is comfortable in the bed communicating well. He agreed to go to a long-term care facility. Patient is going for dialysis tomorrow. Cardiol ogy consult was done. He has a previous admission at [facility] according to the records cardiac cath is normal. EF at that time of mitral valve replacement EF is 55%. Echocardiogram here with EF of 25%. Patient's overall prognosis is poor. It is because of heart failure, renal failure, COPD, liver failure. Reason For Visit: V TACHYCARDIA Physical Exam Vital Signs: Temp Pulse Resp BP Pulse Ox 97.2 F 81 16 123/86 H 93 06/09/20 08:00 06/09/20 12:00 06/09/20 08:00 06/09/20 12:00 06/09/20 08:00 Intake & Output 06/08/20 06/09/20 06/10/20 06:59 06:59 06:59 Intake Total 811 Output Total 512 1043 100 Balance -685 -1814 -100 Weight 56.5 kg 56.7 kg 56.7 kg General appearance: PRESENT: no acute distress, thin Head exam: PRESENT: atraumatic Eye exam: PRESENT: PERRLA Ear exam: PRESENT: normal external ear exam Mouth exam: PRESENT: neck supple Teeth exam: PRESENT: poor dentation Neck exam: ABSENT: carotid bruit, JVD, lymphadenopathy, thyromegaly Respiratory exam: PRESENT: decreased breath sounds, other - Chest tube present in the right side of the chest. Cardiovascular exam: PRESENT: diastolic murmur, irregular rhythm, rubs, systolic murmur, tachycardia GI/Abdominal exam: PRESENT: normal bowel sounds, soft. ABSENT: distended, guarding, mass, organolmegaly, rebound, tenderness Rectal exam: PRESENT: deferred Neurological exam: PRESENT: alert, awake, oriented to person, oriented to place, oriented to time, oriented to situation, CN II-XII grossly intact. ABSENT: motor sensory deficit Psychiatric exam: PRESENT: appropriate affect, normal mood. ABSENT: homicidal ideation, suicidal ideation Results Laboratory Results: 06/09/20 07:57 06/09/20 09:48 06/08/20 06/09/20 06/09/20 23:00 07:57 07:57 WBC 11.5 H RBC 5.67 H Hgb 16.4 D Hct 50.7 MCV 89 MCH 28.9 MCHC 32.4 RDW 20.9 H Plt Count 277 Seg Neutrophils % 85.3 H Sodium Cancelled Potassium Cancelled Chloride Cancelled Carbon Dioxide Cancelled Anion Gap Cancelled BUN Cancelled Creatinine Cancelled Est GFR ( Amer) Cancelled Est GFR (Non-Af Amer) Cancelled Glucose Cancelled Calcium Cancelled Magnesium Cancelled Total Bilirubin Cancelled AST Cancelled Alkaline Phosphatase Cancelled Total Protein Cancelled Albumin Cancelled Urine Color YELLOW Urine Appearance CLEAR Urine pH 5.0 Ur Specific [place] 1.014 Urine Protein NEGATIVE Urine Glucose (UA) NEGATIVE Urine Ketones NEGATIVE Urine Blood NEGATIVE Urine Nitrite NEGATIVE Ur Leukocyte Esterase NEGATIVE Urine WBC (Auto) 1 Urine RBC (Auto) 1 06/09/20 09:48 WBC RBC Hgb Hct MCV MCH MCHC RDW Plt Count Seg Neutrophils % Sodium 133.4 L Potassium 4.1 Chloride 98 Carbon Dioxide 26 Anion Gap 9 BUN 36 H Creatinine 2.12 H Est GFR ( Amer) 39 L Est GFR (Non-Af Amer) Glucose 115 H Calcium 9.4 Magnesium 2.1 Total Bilirubin 1.2 AST 34 Alkaline Phosphatase 149 H Total Protein 6.9 Albumin 3.3 L Urine Color Urine Appearance Urine pH Ur Specific [place] Urine Protein Urine Glucose (UA) Urine Ketones Urine Blood Urine Nitrite Ur Leukocyte Esterase Urine WBC (Auto) Urine RBC (Auto) 06/07/20 06/07/20 06/07/20 12:24 12:24 15:08 Creatine Kinase 34 L Troponin I 0.035 0.041 NT-Pro-B Natriuret Pep 06/07/20 06/07/20 06/08/20 16:45 22:01 05:25 Creatine Kinase 35 L 40 L 35 L Troponin I NT-Pro-B Natriuret Pep 06/08/20 05:25 Creatine Kinase Troponin I NT-Pro-B Natriuret Pep 83181 H Impressions: Chest CT 06/07/20 12:51 IMPRESSION: Large loculated right pleural effusion with opacification in the right base, likely right lower lobe atelectasis. The effusion has increased since the prior study of 03/31/2020. Small left pleural effusion. Head CT 06/07/20 13:02 IMPRESSION: Stable CT of the brain with bifrontal encephalomalacia. No acute intracranial event. EVIDENCE OF ACUTE STROKE: NO. Abdomen/Pelvis CT 06/07/20 13:03 IMPRESSION: There is a large amount of ascites. 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 No other significant finding. Thoracentesis Ultrasound 06/08/20 00:00 IMPRESSION: SUCCESSFUL THORACENTESIS AND CHEST TUBE PLACEMENT USING ULTRASOUND GUIDANCE. Chest X-Ray 06/08/20 15:15 IMPRESSION: Stable small bore right basilar chest tube with continued decreased size of the loculated pleural effusion. Persistent mild effusion and patchy basilar opacities. Possible small right pneumothorax versus layering effusion. Assessment and Plan - Diagnosis (1) Ventricular tachyarrhythmia Is this a current diagnosis for this admission?: Yes Plan: 06/07/2020-patient is going to be admitted to [facility] as an inpatient because of questionable V. tach status post shock by the EMS. Cardiology consult was requested serial troponins will be requested. He is a full code. Consultation with Dr. Shieldsanil requested. Echocardiogram is requested. 06/08/2020-heart rate today is 94. In sinus rhythm. Recently on heparin drip. Latest troponin is 0.041. BNP is 16,800. 06/09/2020-heart rate is 81. Rate controlled A. fib. On heparin drip. 7 (2) COPD (chronic obstructive pulmonary disease) Qualifiers: Is this a current diagnosis for this admission?: No Plan: 06/07/20-patient has history of COPD secondary to chronic smoking as per the patient his quit smoking 6 months ago. Pulse ox is within normal limits in the emergency room. 06/08/2020-patient has history of COPD pulse ox is 94% 2 L. Comfortably in the bed communicating well. 06/09/2020-patient admitted with a loculated large right pleural effusion status post chest tube placement. (3) Atrial fibrillation Is this a current diagnosis for this admission?: Yes Plan: 06/07/2020-patient has history of chronic longstanding atrial fibrillation. On warfarin at home. INR is 1.44 in the ER. Plan is to continue Coumadin and recheck INR tomorrow. 06/08/2020-patient has history of chronic longstanding atrial fibrillation. On warfarin at home. Warfarin is on hold presently on heparin drip. 12/10/2019-patient has a longstanding history of hypertension on Coumadin at home. At this time he is on heparin drip. (4) Ascites Is this a current diagnosis for this admission?: No Plan: 06/07/2020-patient has history of chronic ascites most likely secondary to end- stage renal disease, history of alcohol abuse causing liver cirrhosis. 06/09/2020-as per the records from the [facility] patient developed shock liver during the hospital stay. (5) Pleural effusion Is this a current diagnosis for this admission?: Yes Plan: 06/07/2020-patient has a large pleural effusion on the right side to arrange for a thoracentesis tomorrow. 06/08/2020-patient has loculated right-sided pleural effusion as per the radiology patient need a chest tube. Patient also agreed for chest tube placement. 06/09/2020-patient has a loculated right-sided pleural effusion status post chest tube placement. (6) ESRD (end stage renal disease) on dialysis Is this a current diagnosis for this admission?: No Plan: 06/07/2020-patient has history of hemodialysis for a short while still carrying the dialysis catheter on the left side of the chest. Creatinine is 1.7 potassium within normal limits. Plan is to recheck the labs tomorrow. 06/08/2020-serum creatinine today 1.86. Patient has stage III kidney disease. Serum potassium is 3.7. No need for dialysis at this time. Patient has a dialysis access present on the left side of the chest. 06/09/2020-consultation with Dr. Cornelius Godfrey was done and patient is going for dialysis tomorrow. (7) Shortness of breath Is this a current diagnosis for this admission?: Yes Plan: 06/07/2020-patient came with complaints of shortness of breath. No obvious pneumonia seen. There is a small left-sided pleural effusion and a large right- sided pleural effusion. To arrange for thoracentesis tomorrow. 06/08/2020-patient laying flat in the bed denies any shortness of breath. Pulse ox is 94% on 2 L. 06/09/2020-patient shortness of breath is improving after placement of the chest tube. He is going for dialysis tomorrow hopefully it will further improve his shortness of breath. Pulse ox is 93% room air. (8) CHF (congestive heart failure) Is this a current diagnosis for this admission?: Yes Plan: 06/07/2020-patient has history of congestive heart failure with cardiomegaly and bilateral pleural effusions and echocardiogram was requested. I do not have the previous echocardiogram report available. 06/08/2020-echocardiogram was done yesterday EF is around 25 to 30%. pLan is to put him on beta-blockers, CHICA inhibitor's, if needed and spironolactone. 06/09/2020-patient has chronic systolic heart failure. EF is 25 to 30%. It is presently on a dopamine drip because of hypotension, CHICA inhibitor's, spironolactone, Bumex on hold.
--- NOTE | 2020-06-09 15:01 | CDI QUERY ---
CDI Query CDI Review: We are seeking further clarification of documentation to reflect the severity of illness of your patient. Cardiology Consult Note: (2) CHF (congestive heart failure) Is this a current diagnosis for this admission?: Yes Plan: Systolic congestive heart failure Left ventricular ejection fraction is hard to estimate but appears to have diminished compared to previous admission. CHF exacerbation Qualifiers: Heart failure type: unspecified Qualified Code(s): I50.9 - Heart failure, unspecified Is this a current diagnosis for this admission?: Yes Patient appears to be volume overloaded with pleural effusion as well as ascites. Based on your medical judgement, can you further clarify in the Progress Notes: Acute on chronic systolic heart failure Chronic systolic heart failure Unable to determine Other Thank you for your consideration. ALIDA Juarez RN Clinical Fine Grader Physician Advisor [email or web address]
--- NOTE | 2020-06-09 15:18 | CDI QUERY ---
CDI Query CDI Review: We are seeking further clarification of documentation to reflect the severity of illness of your patient. Per Cardiology Consult Note: He also does have ascites. Overall he has become quite cachectic and malnourished. Per Progress Notes: Patient's nephew called the EMS because of the patient's poor living conditions Patients Height: 5 ft 4 in Weight: 56.7 kg (124.74 lbs) Calculated BMI: 21.41 Total Protein: 6.3 Albumin: 3.2 Based on your medical judgement can you further clarify in the Progress Notes, if any, of the following conditions may be present: Malnutrition (please specify severity: mild, moderate, severe) Cachexia Underweight Nutritional deficiency (please specify) Unable to determine Other Thank you for your consideration. ALIDA Juarez RN Clinical Agronomy Research Manager Physician Advisor [email or web address]
--- NOTE | 2020-06-09 15:32 | RADIOLOGY REPORT (SQ) ---
EXAM DESCRIPTION: CT CHEST WITHOUT IMAGES COMPLETED DATE/TIME: 06/09/2020 3:11 pm REASON FOR STUDY: chest tube leak COMPARISON: 06/07/2020. TECHNIQUE: CT scan performed of the chest without intravenous contrast. Images reviewed with lung, soft tissue and bone windows. Reconstructed coronal and sagittal MPR images reviewed. All images st ored on PACS. All CT scanners at this facility use dose modulation, iterative reconstruction, and/or weight based d osing when appropriate to reduce radiation dose to as low as reasonably achievable (ALARA). [facility]: Dose Right [facility]: CareDose [facility]: Dose Right [facility]: Teradose 4D [facility]: [employer] RADIATION DOSE: CT Rad equipment meets quality standard of care and radiation dose reduction techniq ues were employed. CTDIvol: 11.6 mGy. DLP: 461 mGy-cm. mGy. LIMITATIONS: No technical limitations. FINDINGS: LUNGS AND PLEURA: Pigtail pleural catheter in the posterior right hemithorax. Moderate pl eural effusion which has decreased in size. Interval development of a mild to moderate right pneumot horax. Left pleural effusion unchanged. Diffuse airspace disease, unchanged. HILAR AND MEDIASTINAL STRUCTURES: No identified masses or abnormal nodes. No obvious aneurysm. HEART AND VASCULAR STRUCTURES: No aneurysm. No pericardial effusion. UPPER ABDOMEN: No significant findings. Limited exam. THYROID AND OTHER SOFT TISSUES: No masses. No adenopathy. BONES: No significant finding. HARDWARE: Chest tube, central line, cardiac hardware. OTHER: No other significant findings. IMPRESSION: 1. RIGHT-SIDED PIGTAIL PLEURAL CATHETER WITH INTERVAL DECREASE IN THE PLEURAL EFFUSION. THERE IS NOW A MILD TO MODERATE RIGHT PNEUMOTHORAX. THE CATHETER WILL BE READJUSTED. 2. MODERATE LEFT PLEURAL EFFUSION, UNCHANGED. DIFFUSE AIRSPACE DISEASE UNCHANGED. TECHNICAL DOCUMENTATION: JOB ID: [id number] Quality ID # [id number]: Final reports with documentation of one or more dose reduction techniques (e.g., Au tomated exposure control, adjustment of the mA and/or kV according to patient size, use of iterative reconstruction technique) 2010 [email or web address]- All Rights Reserved Reading location - IP/workstation name: [email or web address]
[2020-06-09] MEDS: HEPARIN SODIUM,PORCINE/D5W 25,000 UNIT/250 ML RTUINJ IV PRN (16:28)
--- NOTE | 2020-06-09 16:42 | RADIOLOGY REPORT (SQ) ---
EXAM DESCRIPTION: CHEST SINGLE VIEW IMAGES COMPLETED DATE/TIME: 06/09/2020 4:34 pm REASON FOR STUDY: chest tube COMPARISON: Chest x-ray dated 06/08/2020. Chest CT dated 06/09/2020. EXAM PARAMETERS: NUMBER OF VIEWS: One view. TECHNIQUE: Single frontal radiographic view of the chest acquired. RADIATION DOSE: NA LIMITATIONS: None. FINDINGS: LUNGS AND PLEURA: Significant decrease in the right pleural effusion. Right pneumothorax, measures approximately 1.7 cm on the frontal image. MEDIASTINUM AND HILAR STRUCTURES: No masses. Contour normal. HEART AND VASCULAR STRUCTURES: Heart normal in size. Normal vasculature. BONES: No acute findings. HARDWARE: The right pigtail catheter has been repositioned and is located along the medial lower dea thorax. Multi lumen catheter and cardiac hardware. OTHER: No other significant finding. IMPRESSION: REPOSITIONING OF THE RIGHT PIGTAIL CATHETER. SIGNIFICANT DECREASE IN THE RIGHT PLEURAL EFFUSION. RIGHT PNEUMOTHORAX PRESENT. WILL FOLLOW-UP WITH [facility]. TECHNICAL DOCUMENTATION: JOB ID: [id number] 2010 [employer]- All Rights Reserved Reading location - IP/workstation name: [email or web address]
--- NOTE | 2020-06-09 17:48 | PDOC CONSULTATION ---
Consultation Consult Date: 06/09/20 Provider Consulted: Venecia SU Consult reason:: DEMETRIUS on CKD3 for HD. History of Present Illness Admission Date/PCP: 06/07/20 16:07 SUJIT AMARO PA-C History of Present Illness: SHAHRZAD JAIN is a 59 year old male shortness of breath with a complicated pa st medical history of undergoing a complicated mitral valve replacement at [place] earlier of this year which was very complicated that necessitated a stay of about 4 months. Postoperatively he had a PEA cardiac arrest that led to acute renal shutdown which did not recover and was discharged on hemodialysis. Patient underwent hemodialysis here in [place] for couple of months and then apparently he made a renal recovery and was taken off dialysis. However patient has got a history of severe noncompliance and he never kept any follow- up appointments with Dr. Rush his treating mail superintendent to see if he was continuing to make renal recovery and was lost to follow-up. Rest of his history includes persistent atrial fibrillation for which apparently is on anticoagulation/congestive heart failure/persistent hypotension for which he has been on Midodrin, recurrent pleural effusions, COPD and progressive disability. I saw him in February of this year when he came in with shortness of breath and was found to have pleural effusion and underwent large-volume thoracentesis in the background of pneumonia. At that time patient was on dialysis. At that time he had an echocardiogram done that shows physical ejection fraction of around 45%.He again came back in March with a further recurrence of pleural effusion and underwent for the procedure. This time patient presents with shortness of breath that is progressive and progressive weakness and generalized debilitation. He is also found to have abdominal distention. He denies any history of chest pain shortness of breath. He still has got left IJ PermCath that was not removed as he failed to keep up any follow-up appointments after he was taken off dialysis somewhere around March/April of this year. Labs and medications were reviewed. He has had a contrasted CT scan of his abdomen and chest on the and now we find his admission creatinine at 1.7 rising up to 2.1, along with dropping of his urine output all indicative of contrast nephropathy. Past Medical History Cardiac Medical History: Reports: Atrial Fibrillation, Pulmonary Hypertension, Valvular Heart disease - History of mitral stenosis Cardiac History Note: Apparently has had chronic hypotension and has been on Midodrin before. Pulmonary Medical History: Reports: Chronic Obstructive Pulmonary Disease (COPD), Respiratory Failure Denies: Tuberculosis Neurological Medical History: Reports: Seizures - LAST 5 YR AGO Renal/ Medical History: Reports: Chronic Kidney Disease Stage III, End Stage Renal Disease Psychiatric Medical History: Denies: Depression Past Surgical History Past Surgical History: Reports: Orthopedic Surgery - hip, arm, Pacemaker, Valve Replacement - Mechanical mitral valve replacement, October 2019, Other - Complicated mitral valve replacement for severe mitral stenosis? Social History Lives with: Alone Smoking Status: Unknown if Ever Smoked Electronic Cigarette use?: No Frequency of Alcohol Use: Occasional Hx Recreational Drug Use: No Drugs: None Hx Prescription Drug Abuse: No - Advance Directive Resuscitation Status: Full Code Family History Parental Family History Reviewed: Yes - Negative for ESRD Children Family History Reviewed: No Sibling(s) Family History Reviewed.: No Medication/Allergy Home Medications: RX: Fluticasone Propionate [Flonase Nasal Peyton 50 Mcg/Peyton 16 gm] 2 spray NASL DAILY 03/14/20 RX: Metoprolol Tartrate [Lopressor 50 mg Tablet] 50 mg PO Q12 30 Days #60 tablet 03/23/20 RX: Bumetanide [Bumex 1 mg Tablet] 0.5 mg PO DAILY 30 Days #15 tablet 04/08/20 RX: Midodrine HCl 10 mg PO TID 30 Days #90 tablet 04/08/20 RX: Warfarin Sodium [Coumadin 3 mg Tablet] 3 mg PO QHS 30 Days #30 tablet 04/08/20 Furosemide [Lasix 40 mg Tablet] 40 mg PO QAM 06/07/20 Allergies/Adverse Reactions: No Known Allergies Allergy (Verified 06/08/20 00:39) Review of Systems Constitutional: PRESENT: anorexia, fatigue, weakness. ABSENT: chills, fever(s), headache(s), night sweats Nose, Mouth, and Throat: ABSENT: mouth pain, sore throat Cardiovascular: PRESENT: dyspnea on exertion. ABSENT: chest pain, edema, orthropnea, palpitations Respiratory: PRESENT: dyspnea. ABSENT: cough, hemoptysis Gastrointestinal: PRESENT: bloating, constipation. ABSENT: abdominal pain, coff ee ground emesis, diarrhea, dysphagia, heartburn, hematemesis, hematochezia, nausea, vomiting Genitourinary: ABSENT: dysuria, hematuria Musculoskeletal: ABSENT: deformity, joint swelling Integumentary: ABSENT: erythema, lesions, pruritus, rash Neurological: ABSENT: abnormal gait, abnormal movements, convulsions, focal weakness, frequent falls Hematologic/Lymphatic: ABSENT: easy bleeding, easy bruising, lymphadenopathy Physical Exam Vital Signs: Temp Pulse Resp BP Pulse Ox 97.2 F 80 16 123/86 H 96 06/09/20 08:09 06/09/20 14:00 06/09/20 13:45 06/09/20 12:00 06/09/20 13:45 Intake & Output 06/08/20 06/09/20 06/10/20 06:59 06:59 06:59 Intake Total 811 811 Output Total 680 2202 100 Balance -685 -5086 711 Weight 56.5 kg 56.7 kg 56.7 kg General appearance: PRESENT: no acute distress, disheveled Exam: Looks rather cachectic. Eye exam: PRESENT: EOMI, PERRLA. ABSENT: scleral icterus Ear exam: PRESENT: normal external ear exam Mouth exam: PRESENT: neck supple. ABSENT: moist Neck exam: ABSENT: lymphadenopathy, meningismus, tenderness, thyromegaly, tracheal deviation Respiratory exam: PRESENT: clear to auscultation [place], decreased breath sounds. ABSENT: crackles Cardiovascular exam: PRESENT: +S1, +S2 GI/Abdominal exam: PRESENT: ascites, distended, normal bowel sounds, soft. ABSENT: firm, guarding, organomegaly Gentrourinary exam: ABSENT: ecchymosis, erythema, lesions Extremities exam: ABSENT: pedal edema Neurological exam: PRESENT: alert, awake, oriented to person, oriented to place Psychiatric exam: PRESENT: anxious Skin exam: ABSENT: erythema, mottled, rash Results Laboratory Results: 06/09/20 07:57 06/09/20 09:48 06/08/20 06/09/20 06/09/20 23:00 07:57 07:57 WBC 11.5 H RBC 5.67 H Hgb 16.4 D Hct 50.7 MCV 89 MCH 28.9 MCHC 32.4 RDW 20.9 H Plt Count 277 Seg Neutrophils % 85.3 H Sodium Cancelled Potassium Cancelled Chloride Cancelled Carbon Dioxide Cancelled Anion Gap Cancelled BUN Cancelled Creatinine Cancelled Est GFR ( Amer) Cancelled Est GFR (Non-Af Amer) Cancelled Glucose Cancelled Calcium Cancelled Magnesium Cancelled Total Bilirubin Cancelled AST Cancelled Alkaline Phosphatase Cancelled Total Protein Cancelled Albumin Cancelled Urine Color YELLOW Urine Appearance CLEAR Urine pH 5.0 Ur Specific [place] 1.014 Urine Protein NEGATIVE Urine Glucose (UA) NEGATIVE Urine Ketones NEGATIVE Urine Blood NEGATIVE Urine Nitrite NEGATIVE Ur Leukocyte Esterase NEGATIVE Urine WBC (Auto) 1 Urine RBC (Auto) 1 06/09/20 09:48 WBC RBC Hgb Hct MCV MCH MCHC RDW Plt Count Seg Neutrophils % Sodium 133.4 L Potassium 4.1 Chloride 98 Carbon Dioxide 26 Anion Gap 9 BUN 36 H Creatinine 2.12 H Est GFR ( Amer) 39 L Est GFR (Non-Af Amer) Glucose 115 H Calcium 9.4 Magnesium 2.1 Total Bilirubin 1.2 AST 34 Alkaline Phosphatase 149 H Total Protein 6.9 Albumin 3.3 L Urine Color Urine Appearance Urine pH Ur Specific [place] Urine Protein Urine Glucose (UA) Urine Ketones Urine Blood Urine Nitrite Ur Leukocyte Esterase Urine WBC (Auto) Urine RBC (Auto) 06/07/20 06/07/20 06/07/20 12:24 12:24 15:08 Creatine Kinase 34 L Troponin I 0.035 0.041 NT-Pro-B Natriuret Pep 06/07/20 06/07/20 06/08/20 16:45 22:01 05:25 Creatine Kinase 35 L 40 L 35 L Troponin I NT-Pro-B Natriuret Pep 06/08/20 05:25 Creatine Kinase Troponin I NT-Pro-B Natriuret Pep [id number] H Impressions: Head CT 06/07/20 13:02 IMPRESSION: Stable CT of the brain with bifrontal encephalomalacia. No acute intracranial event. EVIDENCE OF ACUTE STROKE: NO. Abdomen/Pelvis CT 06/07/20 13:03 IMPRESSION: There is a large amount of ascites. 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 No other significant finding. Thoracentesis Ultrasound 06/08/20 00:00 IMPRESSION: SUCCESSFUL THORACENTESIS AND CHEST TUBE PLACEMENT USING ULTRASOUND GUIDANCE. Chest CT 06/09/20 00:00 IMPRESSION: 1. RIGHT-SIDED PIGTAIL PLEURAL CATHETER WITH INTERVAL DECREASE IN THE PLEURAL EFFUSION. THERE IS NOW A MILD TO MODERATE RIGHT PNEUMOTHORAX. THE CATHETER WILL BE READJUSTED. 2. MODERATE LEFT PLEURAL EFFUSION, UNCHANGED. DIFFUSE AIRSPACE DISEASE UNCHANGED. Chest X-Ray 06/09/20 00:00 IMPRESSION: REPOSITIONING OF THE RIGHT PIGTAIL CATHETER. SIGNIFICANT DECREASE IN THE RIGHT PLEURAL EFFUSION. RIGHT PNEUMOTHORAX PRESENT. WILL FOLLOW-UP WITH SERIAL X-RAYS. Assessment & Plan - Diagnosis (1) DEMETRIUS (acute kidney injury) Plan: Patient presents with a creatinine of 1.7 estimated GFR of around 45 cc/min along with trace alkaline phosphatase but normal AST/ALT. Echocardiogram shows depressed ejection fraction of around 20-25%. He also has ascites. Features c linically suggest that the patient has prerenal insult from congestive heart failure with congestive hepatopathy which could have been because of rapid A. fib or because he went into V. tach which apparently was presenting phenomenon that had to be cardioverted. Subsequently he went on to have a contrasted CT scan which then further led to deterioration of his renal functions along with oliguria. Given his overall severely depressed cardiac function and contrast nephropathy he is going into a situation where he requires to be back on hemodialysis. Fortunately he still has left IJ catheter which hopefully will be functional. I discussed again procedure of ESRD/dialysis and its complications including rare cases cases of cardiac arrest and patient willing to proceed. Orders will be placed in the room he will be dialyzed tomorrow. (2) Ascites Is this a current diagnosis for this admission?: No Plan: Probably secondary to congestive heart failure and hepatopathy. Would recommend paracentesis. (3) Atrial fibrillation Is this a current diagnosis for this admission?: Yes Plan: On anticoagulation. Presently rate controlled. (4) CHF (congestive heart failure) Is this a current diagnosis for this admission?: Yes Plan: Currently with depressed LV function of 20-25%. Could be because of disintegration of his A. fib or because he went into rapid V. tach which was his presenting phenomenon. Unfortunately patient has got a history of severe noncompliance and obviously was not following with his physicians which could have led to his present crisis. (5) Ventricular tachyarrhythmia Is this a current diagnosis for this admission?: Yes Plan: Initial presentation and was cardioverted. (6) Bilateral pleural effusion Plan: Currently he has had volume thoracentesis done with chest tube in. Being managed by hospitalist. (7) H/O mitral valve replacement with mechanical valve Plan: Status quo at [place] which was complicated by a PEA cardiac arrest and shock that led to acute renal shutdown and was on dialysis for a while before he regained partial renal recovery. Then lost to follow-up. (8) Patient noncompliance Plan: Unfortunate.
--- NOTE | 2020-06-09 18:19 | PDOC PROGRESS REPORT ---
Subjective Progress Note for:: 06/09/20 Subjective:: Feels better. Had hypotension without symptoms. Beta-jelani and diuretics held. Urine out put is low Was started on low dose dopamine Had R. chest tube for loculated pleural effusion complicated by pneumothorax. Telemetry shows SR Reason For Visit: V TACHYCARDIA Physical Exam Vital Signs: Temp Pulse Resp BP Pulse Ox 97.2 F 80 16 123/86 H 96 06/09/20 08:09 06/09/20 14:00 06/09/20 13:45 06/09/20 12:00 06/09/20 13:45 Intake & Output 06/08/20 06/09/20 06/10/20 06:59 06:59 06:59 Intake Total 811 811 Output Total 685 0518 100 Balance -685 -181 711 Weight 56.5 kg 56.7 kg 56.7 kg General appearance: PRESENT: no acute distress, thin Head exam: PRESENT: atraumatic, normocephalic, other - Gaunt facies Eye exam: PRESENT: conjunctiva pink, EOMI Mouth exam: PRESENT: moist Respiratory exam: PRESENT: chest wall tenderness, decreased breath sounds, rales, other - Chest tube R Cardiovascular exam: PRESENT: RRR, +S1, +S2, systolic murmur, other - Left chest wall permacath Pulses: PRESENT: normal radial pulses GI/Abdominal exam: PRESENT: distended, other - Ascites + fluid thrill Rectal exam: PRESENT: deferred Musculoskeletal exam: PRESENT: normal inspection, other - Severe muscle wasting Neurological exam: PRESENT: alert, awake, oriented to person, oriented to place, oriented to time, oriented to situation Results Laboratory Results: 06/09/20 07:57 06/09/20 09:48 06/08/20 06/09/20 06/09/20 23:00 07:57 07:57 WBC 11.5 H RBC 5.67 H Hgb 16.4 D Hct 50.7 MCV 89 MCH 28.9 MCHC 32.4 RDW 20.9 H Plt Count 277 Seg Neutrophils % 85.3 H Sodium Cancelled Potassium Cancelled Chloride Cancelled Carbon Dioxide Cancelled Anion Gap Cancelled BUN Cancelled Creatinine Cancelled Est GFR ( Amer) Cancelled Est GFR (Non-Af Amer) Cancelled Glucose Cancelled Calcium Cancelled Magnesium Cancelled Total Bilirubin Cancelled AST Cancelled Alkaline Phosphatase Cancelled Total Protein Cancelled Albumin Cancelled Urine Color YELLOW Urine Appearance CLEAR Urine pH 5.0 Ur Specific [place] 1.014 Urine Protein NEGATIVE Urine Glucose (UA) NEGATIVE Urine Ketones NEGATIVE Urine Blood NEGATIVE Urine Nitrite NEGATIVE Ur Leukocyte Esterase NEGATIVE Urine WBC (Auto) 1 Urine RBC (Auto) 1 06/09/20 09:48 WBC RBC Hgb Hct MCV MCH MCHC RDW Plt Count Seg Neutrophils % Sodium 133.4 L Potassium 4.1 Chloride 98 Carbon Dioxide 26 Anion Gap 9 BUN 36 H Creatinine 2.12 H Est GFR ( Amer) 39 L Est GFR (Non-Af Amer) Glucose 115 H Calcium 9.4 Magnesium 2.1 Total Bilirubin 1.2 AST 34 Alkaline Phosphatase 149 H Total Protein 6.9 Albumin 3.3 L Urine Color Urine Appearance Urine pH Ur Specific [place] Urine Protein Urine Glucose (UA) Urine Ketones Urine Blood Urine Nitrite Ur Leukocyte Esterase Urine WBC (Auto) Urine RBC (Auto) 06/07/20 06/07/20 06/07/20 12:24 12:24 15:08 Creatine Kinase 34 L Troponin I 0.035 0.041 NT-Pro-B Natriuret Pep 06/07/20 06/07/20 06/08/20 16:45 22:01 05:25 Creatine Kinase 35 L 40 L 35 L Troponin I NT-Pro-B Natriuret Pep 06/08/20 05:25 Creatine Kinase Troponin I NT-Pro-B Natriuret Pep [id number] H Impressions: Head CT 06/07/20 13:02 IMPRESSION: Stable CT of the brain with bifrontal encephalomalacia. No acute intracranial event. EVIDENCE OF ACUTE STROKE: NO. Abdomen/Pelvis CT 06/07/20 13:03 IMPRESSION: There is a large amount of ascites. 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 No other significant finding. Thoracentesis Ultrasound 06/08/20 00:00 IMPRESSION: SUCCESSFUL THORACENTESIS AND CHEST TUBE PLACEMENT USING ULTRASOUND GUIDANCE. Chest CT 06/09/20 00:00 IMPRESSION: 1. RIGHT-SIDED PIGTAIL PLEURAL CATHETER WITH INTERVAL DECREASE IN THE PLEURAL EFFUSION. THERE IS NOW A MILD TO MODERATE RIGHT PNEUMOTHORAX. THE CATHETER WILL BE READJUSTED. 2. MODERATE LEFT PLEURAL EFFUSION, UNCHANGED. DIFFUSE AIRSPACE DISEASE UNCHANGED. Assessment & Plan - Diagnosis (1) Atrial fibrillation Is this a current diagnosis for this admission?: Yes Plan: Warfarin INR 2-3 when restarted Heparin un fractionated IV meanwhile Now maintaining SR after cardioversion albeit done for WCT which was likely VT (2) CHF (congestive heart failure) Is this a current diagnosis for this admission?: Yes Plan: Volume overload status with low CO Rachel Dopamine -perfusing better Plan for HD tomorrow (3) Ventricular tachyarrhythmia Is this a current diagnosis for this admission?: Yes Plan: Hypoxia and respiratory distress appear to have preceded the episode which was likely VT Watch for recurrence Reluctant to use anti-arrhythmic especially Amiodarone given poor lung and hepatic status Ideally given low LVEF and WCT likely VT should pursue ICD-this is complicated by poor functional status, poor muscle mass and likely limited life expectancy given multiple medical problems and evidence of multiple organ dysfunction. I discussed this with the patient at length. A suitable but not ideal option would to pursue a wearable defibrillator until 1. Functional status improves 2. He becomes better nourished with improved muscle mass-lack of healing and susceptibility to infection affter ICD implant being concerns -SICD is a bulky device and risks device erosion. 3. Chest tube is removed 4. Nicholson scenario would require permanent HD access on right chest wall so we can use left sided access for transvenous ICD 5. There is improvement in liver function and overall health (4) CHF exacerbation Qualifiers: Heart failure type: unspecified Qualified Code(s): I50.9 - Heart failure, unspecified Is this a current diagnosis for this admission?: Yes Plan: Hopefully will improve with initiation of HD Low out put state has improved with Dopamine gtt (5) CKD (chronic kidney disease) requiring chronic dialysis Is this a current diagnosis for this admission?: Yes Plan: CKD with low volume urine out out HD tomorrow
--- NOTE | 2020-06-09 18:50 | RADIOLOGY REPORT (SQ) ---
EXAM DESCRIPTION: CHEST SINGLE VIEW IMAGES COMPLETED DATE/TIME: 06/09/2020 6:36 pm REASON FOR STUDY: 2 hr post chest tube insertion COMPARISON: 06/09/2020 EXAM PARAMETERS: NUMBER OF VIEWS: One view. TECHNIQUE: Single frontal radiographic view of the chest acquired. RADIATION DOSE: NA LIMITATIONS: None. FINDINGS: LUNGS AND PLEURA: Persistent right pneumothorax. No significant interval change. Hazy op acification in the right lung base. Retrocardiac opacification on the left. The left hemidiaphragm is not well seen medially. MEDIASTINUM AND HILAR STRUCTURES: No masses. Contour normal. HEART AND VASCULAR STRUCTURES: Heart size is borderline. BONES: No acute findings. HARDWARE: A pigtail catheter is present in the medial right lung. Loop recorder. Sternotomy wires. Dual-lumen catheter on the left. OTHER: No other significant finding. IMPRESSION: 1. There is no change in the appearance of the pneumothorax on the right. 2. Cannot exclude a pneumonia in either lung base. TECHNICAL DOCUMENTATION: JOB ID: [id number] [employer]- All Rights Reserved Reading location - IP/workstation name: [email or web address]
[2020-06-10] MEDS: IPRATROPIUM/ALBUTEROL 0.5-2.5 MG/3 ML AMPUL NEB SCH ×4 (01:56→19:56)
[2020-06-10] MEDS ORDERED: HEPARIN SOD (PORCINE) 1,000 UNIT/ML 10 ML VIAL IV PRN (05:00)
[2020-06-10] MEDS: PANTOPRAZOLE SODIUM 40 MG TABLET.DR PO SCH ×2 (05:30→18:16)
[2020-06-10 05:47] LABS: HEMOGLOBIN 15.7 g/dL (13.5-17.0); MEAN CORPUSCULAR HEMOGLOBIN 29.2 pg (27.0-33.4); MEAN CORPUSCULAR HGB CONC 33.4 g/dL (32.0-36.0); MEAN CORPUSCULAR VOLUME 87 fl (80-97); PLATELET COUNT 249 10^3/uL (150-450); RED BLOOD COUNT 5.38 10^6/uL (4.35-5.55); RED CELL DISTRIBUTION WIDTH 20.5 % (11.5-14.0); WHITE BLOOD COUNT 8.1 10^3/uL (4.0-10.5)
[2020-06-10 06:13] LABS: ALBUMIN 3.2 g/dL (3.5-5.0); ALKALINE PHOSPHATASE 142 U/L (38-126); ANION GAP 9 (5-19); ASPARTATE AMINO TRANSFERASE 23 U/L (17-59); BILIRUBIN,DIRECT 0.3 mg/dL (0.0-0.4); BILIRUBIN,TOTAL 1.1 mg/dL (0.2-1.3); BLOOD UREA NITROGEN 37 mg/dL (7-20); CALCIUM 9.6 mg/dL (8.4-10.2); CARBON DIOXIDE 24 mmol/L (22-30); CHLORIDE 97 mmol/L (98-107); GLUCOSE 110 mg/dL (75-110); POTASSIUM 4.4 mmol/L (3.6-5.0); TOTAL PROTEIN 6.6 g/dL (6.3-8.2)
--- NOTE | 2020-06-10 09:24 | RADIOLOGY REPORT (SQ) ---
EXAM DESCRIPTION: CHEST 2 VIEWS IMAGES COMPLETED DATE/TIME: 06/10/2020 9:15 am REASON FOR STUDY: chest tube COMPARISON: 06/09/2020 EXAM PARAMETERS: NUMBER OF VIEWS: two views TECHNIQUE: Digital Frontal and Lateral radiographic views of the chest acquired. RADIATION DOSE: NA LIMITATIONS: none FINDINGS: LUNGS AND PLEURA: Right-sided chest tube remains in place. Pneumothorax is slightly small er in size. Diffuse right-sided airspace disease remains. Small bilateral effusions. Right greater than left. MEDIASTINUM AND HILAR STRUCTURES: No masses or contour abnormalities. HEART AND VASCULAR STRUCTURES: Stable. BONES: No acute findings. HARDWARE: Sternotomy wires are in place. Dialysis catheter is unchanged. OTHER: No other significant finding. IMPRESSION: Right-sided chest tube remains in place. Persistent right-sided pneumothorax although i mproved from yesterday. Small persistent bilateral pleural effusions right greater than left. TECHNICAL DOCUMENTATION: JOB ID: [id number] 2010 [employer]- All Rights Reserved Reading location - IP/workstation name: [email or web address]
--- NOTE | 2020-06-10 10:08 | PDOC CONSULTATION ---
Consultation Consult Date: 06/10/20 Provider Consulted: SURGICAL SURGICALIST MD Consult reason:: Pneumothorax after thoracentesis History of Present Illness Admission Date/PCP: 06/07/20 16:07 SUJIT AMARO PA-C History of Present Illness: SHAHRZAD JAIN is a 59 year old male recently admitted with renal failure and congestive heart failure. The patient has a large right-sided pleural effusion. He underwent thoracentesis in radiology several days ago. Since then, he has had a persistent pneumothorax. The patient had a posterior/inferior chest tube placed (also in radiology), but failed to resolve his pneumothorax. At this time, he denies any chest pain, shortness of breath, fevers, chills, nausea, vomiting. He does report malaise and fatigue. Past Medical History Cardiac Medical History: Reports: Atrial Fibrillation, Hypertension Pulmonary Medical History: Reports: Chronic Obstructive Pulmonary Disease (COPD), Respiratory Failure Denies: Tuberculosis Neurological Medical History: Reports: Seizures - LAST 5 YR AGO Renal/ Medical History: Reports: End Stage Renal Disease Psychiatric Medical History: Denies: Depression Hematology: Reports: Anemia Past Surgical History Past Surgical History: Reports: Orthopedic Surgery - hip, arm, Pacemaker, Valve Replacement - Mechanical mitral valve replacement, October 2019, Other - Complicated mitral valve replacement for severe mitral stenosis? Social History Lives with: Alone Smoking Status: Unknown if Ever Smoked Electronic Cigarette use?: No Frequency of Alcohol Use: Occasional Hx Recreational Drug Use: No Drugs: None Hx Prescription Drug Abuse: No - Advance Directive Resuscitation Status: Full Code Family History Family History: Reviewed & Not Pertinent, CAD Parental Family History Reviewed: Yes Children Family History Reviewed: Yes Sibling(s) Family History Reviewed.: Yes Medication/Allergy Home Medications: Fluticasone Propionate [Flonase Nasal [place] 50 Mcg/[place] 16 gm] 2 spray NASL DAILY 03/14/20 Metoprolol Tartrate [Lopressor 50 mg Tablet] 50 mg PO Q12 30 Days #60 tablet 03/23/20 Bumetanide [Bumex 1 mg Tablet] 0.5 mg PO DAILY 30 Days #15 tablet 04/08/20 Midodrine HCl 10 mg PO TID 30 Days #90 tablet 04/08/20 Warfarin Sodium [Coumadin 3 mg Tablet] 3 mg PO QHS 30 Days #30 tablet 04/08/20 Furosemide [Lasix 40 mg Tablet] 40 mg PO QAM 06/07/20 Allergies/Adverse Reactions: No Known Allergies Allergy (Verified 06/08/20 00:39) Review of Systems Constitutional: PRESENT: fatigue. ABSENT: anorexia, chills, fever(s), headache(s) Eyes: ABSENT: visual disturbances Ears: ABSENT: hearing changes Nose, Mouth, and Throat: ABSENT: sore throat Cardiovascular: ABSENT: chest pain Respiratory: ABSENT: cough Gastrointestinal: ABSENT: abdominal pain Integumentary: ABSENT: pruritus, rash Neurological: ABSENT: confusion, convulsions, dizziness Psychiatric: ABSENT: anxiety, depression Endocrine: ABSENT: cold intolerance, heat intolerance Hematologic/Lymphatic: ABSENT: easy bleeding, easy bruising Physical Exam Vital Signs: Temp Pulse Resp BP Pulse Ox 97.4 F 80 16 122/84 92 06/10/20 08:21 06/10/20 08:21 06/10/20 08:21 06/10/20 08:21 06/10/20 08:21 Intake & Output 06/09/20 06/10/20 06/11/20 06:59 06:59 06:59 Intake Total 811 1061 Output Total 2625 1000 Balance -1814 61 Weight 56.7 kg 54.5 kg General appearance: PRESENT: no acute distress, cooperative Head exam: PRESENT: atraumatic, normocephalic Eye exam: ABSENT: scleral icterus Neck exam: ABSENT: meningismus, tenderness, thyromegaly, tracheal deviation Respiratory exam: PRESENT: unlabored, other - Posterior right-sided small caliber tube thoracostomy in place. No air leak. Approximately 450 cc of serosanguineous fluid output over the last 12 hours.. ABSENT: tachypnea, wheezes Cardiovascular exam: ABSENT: tachycardia GI/Abdominal exam: PRESENT: soft. ABSENT: distended, tenderness Rectal exam: PRESENT: deferred Musculoskeletal exam: ABSENT: deformity Neurological exam: PRESENT: alert, awake, oriented to person, oriented to place, oriented to time, oriented to situation Psychiatric exam: ABSENT: agitated, anxious Focused psych exam: ABSENT: delusional Skin exam: ABSENT: cyanosis, erythema, jaundice Results Laboratory Results: 06/10/20 05:27 06/10/20 05:27 06/09/20 06/10/20 06/10/20 09:48 05:27 05:27 WBC 8.1 RBC 5.38 Hgb 15.7 Hct 47.0 MCV 87 MCH 29.2 MCHC 33.4 RDW 20.5 H Plt Count 249 Sodium 133.4 L 130.0 L Potassium 4.1 4.4 Chloride 98 97 L Carbon Dioxide 26 24 Anion Gap 9 9 BUN 36 H 37 H Creatinine 2.12 H 2.31 H Est GFR ( Amer) 39 L 35 L Glucose 115 H 110 Calcium 9.4 9.6 Magnesium 2.1 Total Bilirubin 1.2 1.1 AST 34 23 Alkaline Phosphatase 149 H 142 H Total Protein 6.9 6.6 Albumin 3.3 L 3.2 L 06/07/20 06/07/20 06/07/20 12:24 12:24 15:08 Creatine Kinase 34 L Troponin I 0.035 0.041 NT-Pro-B Natriuret Pep 06/07/20 06/07/20 06/08/20 16:45 22:01 05:25 Creatine Kinase 35 L 40 L 35 L Troponin I NT-Pro-B Natriuret Pep 06/08/20 05:25 Creatine Kinase Troponin I NT-Pro-B Natriuret Pep 30032 H Impressions: Head CT 06/07/20 13:02 IMPRESSION: Stable CT of the brain with bifrontal encephalomalacia. No acute intracranial event. EVIDENCE OF ACUTE STROKE: NO. Abdomen/Pelvis CT 06/07/20 13:03 IMPRESSION: There is a large amount of ascites. 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 No other significant finding. Thoracentesis Ultrasound 06/08/20 00:00 IMPRESSION: SUCCESSFUL THORACENTESIS AND CHEST TUBE PLACEMENT USING ULTRASOUND GUIDANCE. Chest CT 06/09/20 00:00 IMPRESSION: 1. RIGHT-SIDED PIGTAIL PLEURAL CATHETER WITH INTERVAL DECREASE IN THE PLEURAL EF FUSION. THERE IS NOW A MILD TO MODERATE RIGHT PNEUMOTHORAX. THE CATHETER WILL BE READJUSTED. 2. MODERATE LEFT PLEURAL EFFUSION, UNCHANGED. DIFFUSE AIRSPACE DISEASE UNCHANGED. Chest X-Ray 06/10/20 08:00 IMPRESSION: Right-sided chest tube remains in place. Persistent right-sided pneumothorax although improved from yesterday. Small persistent bilateral pleural effusions right greater than left. Assessment & Plan - Diagnosis (1) Pneumothorax, iatrogenic Is this a current diagnosis for this admission?: Yes (2) Hydrothorax Is this a current diagnosis for this admission?: Yes - Plan Summary Plan Summary: This is a 59-year-old male with a large volume pleural effusion in the right chest. He also has now acquired an iatrogenic pneumothorax. Surgery has been consulted to help manage this patient's thoracic difficulties. Firstly, the inferior/posterior right tube thoracostomy is inadequate to treat the patient's pneumothorax (as evidenced by its persistent nature over the last 48 hours). It is however adequately treating his hydrothorax. On chest x-ray, the pneumothorax appears to be gradually shrinking, and there is no air leak on today's examination. In light of his difficulties with a persistent pleural effusion, I would hesitate to add another chest tube today, especially if the pneumothorax appears to be shrinking. I will increase his suction to 25 cm of water. I will place the patient on therapeutic 100% nonrebreather oxygen, in an effort to help shrink the pneumothorax further. If this is successful, a second chest tube can be avoided. In regards to the patient's pleural effusion/hydrothorax, it is imperative that his CHF and renal dysfunction be adequately addressed. At present, the patient is producing approximately 1 L of serosanguineous fluid per day. For removal of his tube thoracostomy, he should have less than 150 cc/day. If this does not resolve, the patient may require pleurodesis (chemical versus mechanical). Surgery will follow.
[2020-06-10] MEDS: MIDODRINE HCL 5 MG TABLET PO SCH ×3 (10:43→18:16)
--- NOTE | 2020-06-10 10:56 | RADIOLOGY REPORT (SQ) ---
EXAM DESCRIPTION: ADDITIONAL CHARGESCHEST TUBE EXCHANGEADDITIONAL CHARGES IMAGES COMPLETED DATE/TIME: 06/09/2020 1600 HRS REASON FOR STUDY: POST CHEST TUBE EXCHANGE CHARGESLEAKING CHEST TUBE, PNEUMOTHORAX POST CHEST TUBE EXCHANGE CHARGES COMPARISON: CHEST CT 06/09/2020. TECHNIQUE: An over the wire chest tube exchange was performed at bedside. PROCEDURALIST: Alen RAMAN DIRECT SUPERVISION BY: Dr. Raúl Patel PROCEDURE: Chest tube exchange SEDATION: None FLUORO TIME: Not applicable. LIMITATIONS: None. FINDINGS: The area around the patient's right posterior chest tube, including the tube, was prepped and draped sterilely. The entry site was anesthetized with 5 mL 1% lidocaine. A 0.035 guidewire was advanced through the indwelling tube and the tube removed. A 12 [place] all-purpose drainage cathete r was advanced over the wire into the chest cavity and the wire removed. The tube was secured steril carlos. Tube was placed to Pleur-Evac on low suction. Patient tolerated procedure well, there is no kn own complications. IMPRESSION: SUCCESSFUL EXCHANGE OF A RIGHT-SIDED CHEST TUBE. TECHNICAL DOCUMENTATION: JOB ID: [id number] Reading location - IP/workstation name: [id number]
--- NOTE | 2020-06-10 11:03 | PDOC PROGRESS REPORT ---
Subjective Progress Note for:: 06/10/20 Subjective:: 59 year old male with a history of congestive heart failure, pacemaker short- term dialysis still has a dialysis catheter, hypertension, atrial fibrillation on warfarin came in with complaints of shortness of breath and difficulty in ambulation. Patient's nephew called the EMS because of the patient's poor living condition EMS found that heart rate is more than 100 thinking it was a V. tach give him a shock. By the time patient arrival at the ER he is in sinus r hythm heart rate is in the 80s. Initial lactic acid level is one-point 0 repeat lactic acid is 2.1. Patient denies any fevers denies any chills denies any headaches dizzy spells nausea vomiting diarrhea. His main complaint is shortness of breath and difficulty in ambulation at home. Consulted with Dr. Cornelius Root was requested by the ER. 06/08/2020-patient is on heparin drip at this time Coumadin is on hold. CT scan shows large right-sided pleural effusion going for thoracentesis today. C omfortably in the bed not in distress. 06/09/2020-patient is comfortable in the bed communicating well. He agreed to go to a long-term care facility. Patient is going for dialysis tomorrow. Cardiol ogy consult was done. He has a previous admission at [facility] according to the records cardiac cath is normal. EF at that time of mitral valve replacement EF is 55%. Echocardiogram here with EF of 25%. Patient's overall prognosis is poor. It is because of heart failure, renal failure, COPD, liver failure. 06/10/2020-patient is going to the ICU for dialysis because he is on a dopamine drip. Surgical consult was requested for management of the chest tube. Patient is comfortably in the bed communicating well not in distress. Once he finishes his dialysis unit in ICU he will be back to fifth floor. Reason For Visit: V TACHYCARDIA Physical Exam Vital Signs: Temp Pulse Resp BP Pulse Ox 97.4 F 80 16 122/84 92 06/10/20 08:21 06/10/20 08:21 06/10/20 08:21 06/10/20 08:21 06/10/20 08:21 Intake & Output 06/09/20 06/10/20 06/11/20 06:59 06:59 06:59 Intake Total 811 1061 Output Total 2625 1000 Balance -1814 61 Weight 56.7 kg 54.5 kg General appearance: PRESENT: no acute distress, cooperative, thin Head exam: PRESENT: atraumatic Eye exam: PRESENT: PERRLA Teeth exam: PRESENT: poor dentation Respiratory exam: PRESENT: decreased breath sounds, other - Chest tube present on the right side of the chest draining well. Cardiovascular exam: PRESENT: RRR. ABSENT: diastolic murmur, rubs, systolic murmur GI/Abdominal exam: PRESENT: normal bowel sounds, soft. ABSENT: distended, guar ding, mass, organolmegaly, rebound, tenderness Rectal exam: PRESENT: deferred Neurological exam: PRESENT: alert, awake, oriented to person, oriented to place, oriented to time, oriented to situation, CN II-XII grossly intact. ABSENT: motor sensory deficit Psychiatric exam: PRESENT: appropriate affect, normal mood. ABSENT: homicidal ideation, suicidal ideation Results Laboratory Results: 06/10/20 05:27 06/10/20 05:27 06/10/20 06/10/20 05:27 05:27 WBC 8.1 RBC 5.38 Hgb 15.7 Hct 47.0 MCV 87 MCH 29.2 MCHC 33.4 RDW 20.5 H Plt Count 249 Sodium 130.0 L Potassium 4.4 Chloride 97 L Carbon Dioxide 24 Anion Gap 9 BUN 37 H Creatinine 2.31 H Est GFR ( Amer) 35 L Glucose 110 Calcium 9.6 Total Bilirubin 1.1 AST 23 Alkaline Phosphatase 142 H Total Protein 6.6 Albumin 3.2 L 06/07/20 06/07/20 06/07/20 12:24 12:24 15:08 Creatine Kinase 34 L Troponin I 0.035 0.041 NT-Pro-B Natriuret Pep 06/07/20 06/07/20 06/08/20 16:45 22:01 05:25 Creatine Kinase 35 L 40 L 35 L Troponin I NT-Pro-B Natriuret Pep 06/08/20 05:25 Creatine Kinase Troponin I NT-Pro-B Natriuret Pep 08335 H Impressions: Head CT 06/07/20 13:02 IMPRESSION: Stable CT of the brain with bifrontal encephalomalacia. No acute intracranial event. EVIDENCE OF ACUTE STROKE: NO. Abdomen/Pelvis CT 06/07/20 13:03 IMPRESSION: There is a large amount of ascites. 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 No other significant finding. Thoracentesis Ultrasound 06/08/20 00:00 IMPRESSION: SUCCESSFUL THORACENTESIS AND CHEST TUBE PLACEMENT USING ULTRASOUND GUIDANCE. Chest CT 06/09/20 00:00 IMPRESSION: 1. RIGHT-SIDED PIGTAIL PLEURAL CATHETER WITH INTERVAL DECREASE IN THE PLEURAL EFFUSION. THERE IS NOW A MILD TO MODERATE RIGHT PNEUMOTHORAX. THE CATHETER WILL BE READJUSTED. 2. MODERATE LEFT PLEURAL EFFUSION, UNCHANGED. DIFFUSE AIRSPACE DISEASE UNCHANGED. Chest X-Ray 06/10/20 08:00 IMPRESSION: Right-sided chest tube remains in place. Persistent right-sided pneumothorax although improved from yesterday. Small persistent bilateral pleural effusions right greater than left. Assessment and Plan - Diagnosis (1) Ventricular tachyarrhythmia Is this a current diagnosis for this admission?: Yes Plan: 06/07/2020-patient is going to be admitted to [facility] as an inpatient because of questionable V. tach status post shock by the EMS. Cardiology consult was requested serial troponins will be requested. He is a full code. Consultation with Dr. Shieldsanil requested. Echocardiogram is requested. 06/08/2020-heart rate today is 94. In sinus rhythm. Recently on heparin drip. Latest troponin is 0.041. BNP is 16,800. 06/09/2020-heart rate is 81. Rate controlled A. fib. On heparin drip. 06/10/2020-heart rate in the 90s. Rate controlled A. fib. He is on heparin drip at this time. (2) COPD (chronic obstructive pulmonary disease) Qualifiers: Is this a current diagnosis for this admission?: No Plan: 06/07/20-patient has history of COPD secondary to chronic smoking as per the patient his quit smoking 6 months ago. Pulse ox is within normal limits in the emergency room. 06/08/2020-patient has history of COPD pulse ox is 94% 2 L. Comfortably in the bed communicating well. 06/09/2020-patient admitted with a loculated large right pleural effusion status post chest tube placement. 06/10/2020-patient has a chest tube for a right-sided loculated pleural effusion. He also has a pneumothorax. As per the surgery pneumothorax size is decreasing. (3) Atrial fibrillation Is this a current diagnosis for this admission?: Yes Plan: 06/07/2020-patient has history of chronic longstanding atrial fibrillation. On warfarin at home. INR is 1.44 in the ER. Plan is to continue Coumadin and recheck INR tomorrow. 06/08/2020-patient has history of chronic longstanding atrial fibrillation. On warfarin at home. Warfarin is on hold presently on heparin drip. 06/09/2020-patient has a longstanding history of hypertension on Coumadin at home. At this time he is on heparin drip. 06/10/2020-heart rate in the 90s. In A. fib. On heparin drip for anticoagulation. (4) Ascites Is this a current diagnosis for this admission?: No Plan: 06/07/2020-patient has history of chronic ascites most likely secondary to end- stage renal disease, history of alcohol abuse causing liver cirrhosis. 06/09/2020-as per the records from the [facility] patient developed shock liver during the hospital stay. (5) Pleural effusion Is this a current diagnosis for this admission?: Yes Plan: 06/07/2020-patient has a large pleural effusion on the right side to arrange for a thoracentesis tomorrow. 06/08/2020-patient has loculated right-sided pleural effusion as per the radiology patient need a chest tube. Patient also agreed for chest tube placement. 06/09/2020-patient has a loculated right-sided pleural effusion status post chest tube placement. 06/10/2020-patient has right-sided chest tube draining at least 1 L/day. (6) ESRD (end stage renal disease) on dialysis Is this a current diagnosis for this admission?: No Plan: 06/07/2020-patient has history of hemodialysis for a short while still carrying the dialysis catheter on the left side of the chest. Creatinine is 1.7 potassium within normal limits. Plan is to recheck the labs tomorrow. 06/08/2020-serum creatinine today 1.86. Patient has stage III kidney disease. Serum potassium is 3.7. No need for dialysis at this time. Patient has a dialysis access present on the left side of the chest. 06/09/2020-consultation with Dr. Cornelius Godfrey was done and patient is going for dialysis tomorrow. 06/10/2020-patient is going to the dialysis in ICU today because he is on a dopamine drip. Once the dialysis session is finished in ICU he will be back to fifth floor. (7) Shortness of breath Is this a current diagnosis for this admission?: Yes Plan: 06/07/2020-patient came with complaints of shortness of breath. No obvious pneumonia seen. There is a small left-sided pleural effusion and a large right- sided pleural effusion. To arrange for thoracentesis tomorrow. 06/08/2020-patient laying flat in the bed denies any shortness of breath. Pulse ox is 94% on 2 L. 06/09/2020-patient shortness of breath is improving after placement of the chest tube. He is going for dialysis tomorrow hopefully it will further improve his shortness of breath. Pulse ox is 93% room air. (8) CHF (congestive heart failure) Is this a current diagnosis for this admission?: Yes Plan: 06/07/2020-patient has history of congestive heart failure with cardiomegaly and bilateral pleural effusions and echocardiogram was requested. I do not have the previous echocardiogram report available. 06/08/2020-echocardiogram was done yesterday EF is around 25 to 30%. pLan is to put him on beta-blockers, CHICA inhibitor's, if needed and spironolactone. 06/09/2020-patient has chronic systolic heart failure. EF is 25 to 30%. It is presently on a dopamine drip because of hypotension, CHICA inhibitor's, spironolactone, Bumex on hold. 06/10/2020-patient has chronic systolic heart failure. EF is 25 to 30%. Because he is hypotensive on dopamine drip not on diuretics at this time. (9) Protein-energy malnutrition Qualifiers: Protein-calorie malnutrition severity: mild Qualified Code(s): E44.1 - Mild protein-calorie malnutrition Is this a current diagnosis for this admission?: Yes Plan: 06/10/2020-patient BMI is more than 20 may have a mild protein energy malnutrition. Receiving dietary supplementations at this time. - Time Anticipated discharge: SNF Within: within 72 hours
[2020-06-10] MEDS: ACETAMINOPHEN 325 MG TABLET PO PRN (11:28)
--- NOTE | 2020-06-10 13:26 | PDOC PROGRESS REPORT ---
Subjective Progress Note for:: 06/10/20 Reason For Visit: Patient seen today on dialysis. Undergoing dialysis without any issues. Vital signs are stable with the help of dopamine drip which is keeping his blood pressure in the 120 systolic range besides Midodrin. He denies history of chest pain or shortness of breath. He still has got a right chest tube which has been complicated by a pneumothorax and is being co-managed by surgeons as well. He denies history of severe chest pain/worsening shortness of breath. Ascites distention remains relatively stable labs and medications were reviewed. Dialysis orders were reviewed with the treating dialysis nurse. Physical Exam Vital Signs: Temp Pulse Resp BP Pulse Ox 97.4 F 80 17 125/94 H 92 06/10/20 08:21 06/10/20 08:21 06/10/20 12:02 06/10/20 12:02 06/10/20 08:21 Intake & Output 06/09/20 06/10/20 06/11/20 06:59 06:59 06:59 Intake Total 811 1061 144 Output Total 2625 1000 Balance -1814 61 144 Weight 56.7 kg 54.5 kg General appearance: PRESENT: no acute distress Respiratory exam: PRESENT: clear to auscultation [place], decreased breath sounds. ABSENT: crackles Cardiovascular exam: PRESENT: +S1, +S2 GI/Abdominal exam: PRESENT: ascites, distended, normal bowel sounds, soft. ABSENT: firm, guarding, organomegaly Extremities exam: PRESENT: pedal edema Neurological exam: PRESENT: alert, awake, oriented to person, oriented to place Psychiatric exam: PRESENT: anxious Results Laboratory Results: 06/10/20 05:27 06/10/20 05:27 06/10/20 06/10/20 05:27 05:27 WBC 8.1 RBC 5.38 Hgb 15.7 Hct 47.0 MCV 87 MCH 29.2 MCHC 33.4 RDW 20.5 H Plt Count 249 Sodium 130.0 L Potassium 4.4 Chloride 97 L Carbon Dioxide 24 Anion Gap 9 BUN 37 H Creatinine 2.31 H Est GFR ( Amer) 35 L Glucose 110 Calcium 9.6 Total Bilirubin 1.1 AST 23 Alkaline Phosphatase 142 H Total Protein 6.6 Albumin 3.2 L 06/07/20 06/07/20 06/07/20 12:24 12:24 15:08 Creatine Kinase 34 L Troponin I 0.035 0.041 NT-Pro-B Natriuret Pep 06/07/20 06/07/20 06/08/20 16:45 22:01 05:25 Creatine Kinase 35 L 40 L 35 L Troponin I NT-Pro-B Natriuret Pep 06/08/20 05:25 Creatine Kinase Troponin I NT-Pro-B Natriuret Pep 37409 H Impressions: Head CT 06/07/20 13:02 IMPRESSION: Stable CT of the brain with bifrontal encephalomalacia. No acute intracranial event. EVIDENCE OF ACUTE STROKE: NO. Abdomen/Pelvis CT 06/07/20 13:03 IMPRESSION: There is a large amount of ascites. 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 No other significant finding. Thoracentesis Ultrasound 06/08/20 00:00 IMPRESSION: SUCCESSFUL THORACENTESIS AND CHEST TUBE PLACEMENT USING ULTRASOUND GUIDANCE. Chest CT 06/09/20 00:00 IMPRESSION: 1. RIGHT-SIDED PIGTAIL PLEURAL CATHETER WITH INTERVAL DECREASE IN THE PLEURAL EFFUSION. THERE IS NOW A MILD TO MODERATE RIGHT PNEUMOTHORAX. THE CATHETER WI LL BE READJUSTED. 2. MODERATE LEFT PLEURAL EFFUSION, UNCHANGED. DIFFUSE AIRSPACE DISEASE UNCHANGED. Chest X-Ray 06/10/20 08:00 IMPRESSION: Right-sided chest tube remains in place. Persistent right-sided pneumothorax although improved from yesterday. Small persistent bilateral pleural effusions right greater than left. Assessment & Plan - Diagnosis (1) DEMETRIUS (acute kidney injury) Plan: Patient is dropping urine output to becoming anuric along with worsening renal functions. Patient has been initiated back on hemodialysis which is undergoing now without any issues. Vital signs are stable with the help of Midodrin/dopamine drip. Plan to remove less than 500 cc of fluid as allowed. Dialysis being supervised. Dialysis orders were reviewed with the treating dialysis nurse. (2) Ascites Is this a current diagnosis for this admission?: No Plan: Monitor for the need of paracentesis. (3) Atrial fibrillation Is this a current diagnosis for this admission?: Yes Plan: Rate controlled stable. (4) CHF (congestive heart failure) Is this a current diagnosis for this admission?: Yes Plan: Status quo. Besides effusion and ascites he is now also building generalized fluid overload which is also been compounded by his dropping albumin. We will try to remove minimal amount of fluid on dialysis today. We will start him on IV Lasix and low-dose of spironolactone as well which will be managed by hospitalist over the weekend since I am off. Otherwise being managed by hospi talist and cardiology. (5) Ventricular tachyarrhythmia Is this a current diagnosis for this admission?: Yes Plan: Status post cardioversion and stable. (6) Bilateral pleural effusion Plan: Now with the right chest tube after initial thoracentesis and complicated by pneumothorax being co-managed. (7) H/O mitral valve replacement with mechanical valve Plan: Status quo. (8) Patient noncompliance Plan: Status quo. (9) Hypotension Qualifiers: Hypotension type: idiopathic hypotension Qualified Code(s): I95.0 - Idiopathic hypotension Plan: Culture negative. Likely secondary to severely depressed LV function. Will check cortisol levels if not done. (10) Hyponatremia Plan: See response to some fluid removal. Monitor. Need further work-up if no better.
[2020-06-10] MEDS: METOPROLOL TARTRATE 50 MG TABLET PO SCH ×2 (14:35→22:25)
[2020-06-10] MEDS: FLUTICASONE NASAL SPRAY 50 MCG/SPRY 120 SPRAY/16 GM NASL SCH (14:35)
[2020-06-10] MEDS ORDERED: MORPHINE SULFATE 10 MG/ML INJ ONE (14:44)
[2020-06-10] MEDS: SPIRONOLACTONE 25 MG TABLET PO SCH (14:47)
[2020-06-10] MEDS: FUROSEMIDE INJ/PF 20 MG/2 ML SDV IV SCH ×2 (14:47→22:28)
[2020-06-10] MEDS: MORPHINE SULFATE 10 MG/ML INJ IV PRN (14:53)
--- NOTE | 2020-06-10 15:23 | RADIOLOGY REPORT (SQ) ---
EXAM DESCRIPTION: CHEST 2 VIEWS IMAGES COMPLETED DATE/TIME: 06/10/2020 3:15 pm REASON FOR STUDY: check for chest tube placement COMPARISON: Earlier the same day. EXAM PARAMETERS: NUMBER OF VIEWS: two views TECHNIQUE: Digital Frontal and Lateral radiographic views of the chest acquired. RADIATION DOSE: NA LIMITATIONS: none FINDINGS: LUNGS AND PLEURA: Right-sided pneumothorax is slightly larger when compared to the earlier film. Chest tube remains in place. Largest diameter is 13.5 mm compared with 11.4 mm on the earlie r film. Patchy airspace disease is unchanged. Small effusions remain. MEDIASTINUM AND HILAR STRUCTURES: No masses or contour abnormalities. HEART AND VASCULAR STRUCTURES: Heart normal size. No evidence for failure. BONES: No acute findings. HARDWARE: Sternotomy wires remain in place along with dialysis catheter. OTHER: No other significant finding. IMPRESSION: Persistent right-sided pneumothorax. Slightly larger when compared to the earlier film. Patchy bilateral airspace disease and small effusions. TECHNICAL DOCUMENTATION: JOB ID: [id number] 2010 [employer]- All Rights Reserved Reading location - IP/workstation name: [email or web address]
[2020-06-11] MEDS: HEPARIN SODIUM,PORCINE/D5W 25,000 UNIT/250 ML RTUINJ IV PRN (01:45)
[2020-06-11] MEDS: IPRATROPIUM/ALBUTEROL 0.5-2.5 MG/3 ML AMPUL NEB SCH ×5 (02:08→19:53)
[2020-06-11 04:36] LABS: HEPATITS B SURFACE ANTIGEN Negative (Negative)
[2020-06-11] MEDS: PANTOPRAZOLE SODIUM 40 MG TABLET.DR PO SCH ×2 (06:54→17:36)
[2020-06-11] MEDS: DOPAMINE HCL/DEXTROSE 5%-WATER 800 MG/250 ML RTUINJ IV PRN (06:55)
[2020-06-11] MEDS: ONDANSETRON HCL INJ/PF 4 MG/2 ML SDV IV PRN ×2 (07:01→20:27)
--- NOTE | 2020-06-11 08:46 | RADIOLOGY REPORT (SQ) ---
EXAM DESCRIPTION: CHEST SINGLE VIEW IMAGES COMPLETED DATE/TIME: 06/11/2020 8:11 am REASON FOR STUDY: chest tube COMPARISON: 06/09/2020 EXAM PARAMETERS: NUMBER OF VIEWS: One view. TECHNIQUE: Single frontal radiographic view of the chest acquired. RADIATION DOSE: NA LIMITATIONS: None. FINDINGS: LUNGS AND PLEURA: Small right pleural effusion and improvement in the right pneumothorax. Chest tube has been repositioned. Improved aeration of the left lung with retrocardiac atelectasis. MEDIASTINUM AND HILAR STRUCTURES: No masses. Contour normal. HEART AND VASCULAR STRUCTURES: Normal size heart. Valve replacement. BONES: Sternal wires. HARDWARE: Large caliber venous access catheter. OTHER: No other significant finding. IMPRESSION: Improved appearance of the right lung with decrease in the pneumothorax. Catheter has b een repositioned. Small right effusion. TECHNICAL DOCUMENTATION: JOB ID: [id number] 2010 [employer]- All Rights Reserved Reading location - IP/workstation name: [email or web address]
[2020-06-11] MEDS: MIDODRINE HCL 5 MG TABLET PO SCH ×3 (10:03→17:36)
[2020-06-11] MEDS: FLUTICASONE NASAL SPRAY 50 MCG/SPRY 120 SPRAY/16 GM NASL SCH (10:03)
[2020-06-11] MEDS: METOPROLOL TARTRATE 50 MG TABLET PO SCH ×2 (10:03→21:57)
[2020-06-11] MEDS: FUROSEMIDE INJ/PF 20 MG/2 ML SDV IV SCH ×2 (10:03→21:57)
[2020-06-11] MEDS: SPIRONOLACTONE 25 MG TABLET PO SCH (10:03)
--- NOTE | 2020-06-11 10:20 | PDOC PROGRESS REPORT ---
Subjective Progress Note for:: 06/11/20 Subjective:: 59 year old male with a history of congestive heart failure, pacemaker short- term dialysis still has a dialysis catheter, hypertension, atrial fibrillation on warfarin came in with complaints of shortness of breath and difficulty in ambulation. Patient's nephew called the EMS because of the patient's poor living condition EMS found that heart rate is more than 100 thinking it was a V. tach give him a shock. By the time patient arrival at the ER he is in sinus r hythm heart rate is in the 80s. Initial lactic acid level is one-point 0 repeat lactic acid is 2.1. Patient denies any fevers denies any chills denies any headaches dizzy spells nausea vomiting diarrhea. His main complaint is shortness of breath and difficulty in ambulation at home. Consulted with Dr. Cornelius Root was requested by the ER. 06/08/2020-patient is on heparin drip at this time Coumadin is on hold. CT scan shows large right-sided pleural effusion going for thoracentesis today. C omfortably in the bed not in distress. 06/09/2020-patient is comfortable in the bed communicating well. He agreed to go to a long-term care facility. Patient is going for dialysis tomorrow. Cardiol ogy consult was done. He has a previous admission at [facility] according to the records cardiac cath is normal. EF at that time of mitral valve replacement EF is 55%. Echocardiogram here with EF of 25%. Patient's overall prognosis is poor. It is because of heart failure, renal failure, COPD, liver failure. 06/10/2020-patient is going to the ICU for dialysis because he is on a dopamine drip. Surgical consult was requested for management of the chest tube. Patient is comfortably in the bed communicating well not in distress. Once he finishes his dialysis unit in ICU he will be back to fifth floor. 06/11/2020-patient is comfortable in the bed communicating well. Denies any problems. Physical therapy is working with the patient. He completed dialysis successfully yesterday. Chest tube management as per surgical team. Reason For Visit: V TACHYCARDIA Physical Exam Vital Signs: Temp Pulse Resp BP Pulse Ox 97.6 F 86 16 111/78 92 06/11/20 07:40 06/11/20 07:44 06/11/20 07:44 06/11/20 07:40 06/11/20 07:44 Intake & Output 06/10/20 06/11/20 06/12/20 06:59 06:59 06:59 Intake Total 1061 2785 Output Total 1000 2800 375 Balance 61 -15 -375 Weight 54.5 kg 55.3 kg General appearance: PRESENT: no acute distress, cooperative, thin Head exam: PRESENT: atraumatic Eye exam: PRESENT: PERRLA Ear exam: PRESENT: normal external ear exam Mouth exam: PRESENT: neck supple Teeth exam: PRESENT: poor dentation Respiratory exam: PRESENT: decreased breath sounds, other - Chest tube present in the right side of the chest. Draining well. Cardiovascular exam: PRESENT: systolic murmur, tachycardia GI/Abdominal exam: PRESENT: normal bowel sounds, soft. ABSENT: distended, guarding, mass, organolmegaly, rebound, tenderness Rectal exam: PRESENT: deferred Extremities exam: PRESENT: full ROM. ABSENT: calf tenderness, clubbing, pedal edema Neurological exam: PRESENT: alert, awake, oriented to person, oriented to place, oriented to time, oriented to situation, CN II-XII grossly intact. ABSENT: motor sensory deficit Psychiatric exam: PRESENT: appropriate affect, normal mood. ABSENT: homicidal ideation, suicidal ideation Results Laboratory Results: 06/10/20 05:27 06/10/20 05:27 06/07/20 06/07/20 06/07/20 12:24 12:24 15:08 Creatine Kinase 34 L Troponin I 0.035 0.041 NT-Pro-B Natriuret Pep 06/07/20 06/07/20 06/08/20 16:45 22:01 05:25 Creatine Kinase 35 L 40 L 35 L Troponin I NT-Pro-B Natriuret Pep 06/08/20 05:25 Creatine Kinase Troponin I NT-Pro-B Natriuret Pep [id number] H Impressions: Head CT 06/07/20 13:02 IMPRESSION: Stable CT of the brain with bifrontal encephalomalacia. No acute intracranial event. EVIDENCE OF ACUTE STROKE: NO. Abdomen/Pelvis CT 06/07/20 13:03 IMPRESSION: There is a large amount of ascites. 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 No other significant finding. Thoracentesis Ultrasound 06/08/20 00:00 IMPRESSION: SUCCESSFUL THORACENTESIS AND CHEST TUBE PLACEMENT USING ULTRASOUND GUIDANCE. Chest CT 06/09/20 00:00 IMPRESSION: 1. RIGHT-SIDED PIGTAIL PLEURAL CATHETER WITH INTERVAL DECREASE IN THE PLEURAL EFFUSION. THERE IS NOW A MILD TO MODERATE RIGHT PNEUMOTHORAX. THE CATHETER WILL BE READJUSTED. 2. MODERATE LEFT PLEURAL EFFUSION, UNCHANGED. DIFFUSE AIRSPACE DISEASE UNCH ANGED. Chest X-Ray 06/11/20 08:00 IMPRESSION: Improved appearance of the right lung with decrease in the pneumothorax. Catheter has been repositioned. Small right effusion. Assessment and Plan - Diagnosis (1) Ventricular tachyarrhythmia Is this a current diagnosis for this admission?: Yes Plan: 06/07/2020-patient is going to be admitted to [facility] as an inpatient because of questionable V. tach status post shock by the EMS. Cardiology consult was requested serial troponins will be requested. He is a full code. Consultation with Dr. Shieldsanil requested. Echocardiogram is requested. 06/08/2020-heart rate today is 94. In sinus rhythm. Recently on heparin drip. Latest troponin is 0.041. BNP is 16,800. 06/09/2020-heart rate is 81. Rate controlled A. fib. On heparin drip. 06/10/2020-heart rate in the 90s. Rate controlled A. fib. He is on heparin drip at this time. (2) COPD (chronic obstructive pulmonary disease) Qualifiers: Is this a current diagnosis for this admission?: No Plan: 06/07/20-patient has history of COPD secondary to chronic smoking as per the patient his quit smoking 6 months ago. Pulse ox is within normal limits in the emergency room. 06/08/2020-patient has history of COPD pulse ox is 94% 2 L. Comfortably in the bed communicating well. 06/09/2020-patient admitted with a loculated large right pleural effusion status post chest tube placement. 06/10/2020-patient has a chest tube for a right-sided loculated pleural effusion. He also has a pneumothorax. As per the surgery pneumothorax size is decreasing. 06/11/2020-patient has right-sided chest tube. Pneumothorax is improving. (3) Atrial fibrillation Is this a current diagnosis for this admission?: Yes Plan: 06/07/2020-patient has history of chronic longstanding atrial fibrillation. On warfarin at home. INR is 1.44 in the ER. Plan is to continue Coumadin and recheck INR tomorrow. 06/08/2020-patient has history of chronic longstanding atrial fibrillation. On warfarin at home. Warfarin is on hold presently on heparin drip. 06/09/2020-patient has a longstanding history of hypertension on Coumadin at home. At this time he is on heparin drip. 06/10/2020-heart rate in the 90s. In A. fib. On heparin drip for anticoagulation. 12/12/2019-patient is on heparin drip at this time. Plan is to continue heparin drip. Heart rate is relatively controlled. (4) Ascites Is this a current diagnosis for this admission?: No Plan: 06/07/2020-patient has history of chronic ascites most likely secondary to end- stage renal disease, history of alcohol abuse causing liver cirrhosis. 06/09/2020-as per the records from the [facility] patient developed shock liver during the hospital stay. (5) Pleural effusion Is this a current diagnosis for this admission?: Yes Plan: 06/07/2020-patient has a large pleural effusion on the right side to arrange for a thoracentesis tomorrow. 06/08/2020-patient has loculated right-sided pleural effusion as per the radiology patient need a chest tube. Patient also agreed for chest tube placement. 06/09/2020-patient has a loculated right-sided pleural effusion status post chest tube placement. 06/10/2020-patient has right-sided chest tube draining at least 1 L/day. 06/11/2020-chest tube was placed by radiology for a loculated right-sided pleural effusion. Surgical team is managing the chest tube at this time. (6) ESRD (end stage renal disease) on dialysis Is this a current diagnosis for this admission?: No Plan: 06/07/2020-patient has history of hemodialysis for a short while still carrying the dialysis catheter on the left side of the chest. Creatinine is 1.7 potassium within normal limits. Plan is to recheck the labs tomorrow. 06/08/2020-serum creatinine today 1.86. Patient has stage III kidney disease. Serum potassium is 3.7. No need for dialysis at this time. Patient has a dialysis access present on the left side of the chest. 06/09/2020-consultation with Dr. Cornelius Godfrey was done and patient is going for dialysis tomorrow. 06/10/2020-patient is going to the dialysis in ICU today because he is on a dopamine drip. Once the dialysis session is finished in ICU he will be back to fifth floor. 06/11/2020-patient completed dialysis in the ICU because on the dopamine drip. Blood pressures are improved today plan is to discontinue dopamine drip. (7) Shortness of breath Is this a current diagnosis for this admission?: Yes Plan: 06/07/2020-patient came with complaints of shortness of breath. No obvious pneumonia seen. There is a small left-sided pleural effusion and a large right-sided pleural effusion. To arrange for thoracentesis tomorrow. 06/08/2020-patient laying flat in the bed denies any shortness of breath. Pulse ox is 94% on 2 L. 06/09/2020-patient shortness of breath is improving after placement of the chest tube. He is going for dialysis tomorrow hopefully it will further improve his shortness of breath. Pulse ox is 93% room air. 06/11/2020-patient is comfortably in the bed laying flat. Denies any shortness of breath. Pulse ox is 93% on 2 L. (8) CHF (congestive heart failure) Is this a current diagnosis for this admission?: Yes Plan: 06/07/2020-patient has history of congestive heart failure with cardiomegaly and bilateral pleural effusions and echocardiogram was requested. I do not have the previous echocardiogram report available. 06/08/2020-echocardiogram was done yesterday EF is around 25 to 30%. pLan is to put him on beta-blockers, CHICA inhibitor's, if needed and spironolactone. 06/09/2020-patient has chronic systolic heart failure. EF is 25 to 30%. It is presently on a dopamine drip because of hypotension, CHICA inhibitor's, spironolactone, Bumex on hold. 06/10/2020-patient has chronic systolic heart failure. EF is 25 to 30%. Because he is hypotensive on dopamine drip not on diuretics at this time. 06/11/20-patient is receiving Lasix 20 mg IV twice a day. Not in fluid overload at this time. (9) Protein-energy malnutrition Qualifiers: Protein-calorie malnutrition severity: mild Qualified Code(s): E44.1 - Mild protein-calorie malnutrition Is this a current diagnosis for this admission?: Yes Plan: 06/10/2020-patient BMI is more than 20 may have a mild protein energy malnutrition. Receiving dietary supplementations at this time. - Time Anticipated discharge: SNF Within: within 72 hours
--- NOTE | 2020-06-11 10:45 | PDOC PROGRESS REPORT ---
Subjective Progress Note for:: 06/11/20 Subjective:: Pain from the catheter on the right chest Reason For Visit: V TACHYCARDIA Physical Exam Vital Signs: Temp Pulse Resp BP Pulse Ox 97.6 F 86 16 111/78 92 06/11/20 07:40 06/11/20 07:44 06/11/20 07:44 06/11/20 07:40 06/11/20 07:44 Intake & Output 06/10/20 06/11/20 06/12/20 06:59 06:59 06:59 Intake Total 1061 2785 Output Total 1000 2800 375 Balance 61 Weight 54.5 kg 55.3 kg Exam: Catheter in place on the right chest though I was called by the nurse it was leaking somewhat around the catheter itself. I told the nurses to put the Vaseline gauze around the catheter. If he still continues to leak then have to put a stitch around it. The chest x-ray showed improved pneumothorax on the right side. Results Laboratory Results: 06/10/20 05:27 06/10/20 05:27 06/07/20 06/07/20 06/07/20 12:24 12:24 15:08 Creatine Kinase 34 L Troponin I 0.035 0.041 NT-Pro-B Natriuret Pep 06/07/20 06/07/20 06/08/20 16:45 22:01 05:25 Creatine Kinase 35 L 40 L 35 L Troponin I NT-Pro-B Natriuret Pep 06/08/20 05:25 Creatine Kinase Troponin I NT-Pro-B Natriuret Pep [id number] H Impressions: Head CT 06/07/20 13:02 IMPRESSION: Stable CT of the brain with bifrontal encephalomalacia. No acute intracranial event. EVIDENCE OF ACUTE STROKE: NO. Abdomen/Pelvis CT 06/07/20 13:03 IMPRESSION: There is a large amount of ascites. 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 No other significant finding. Thoracentesis Ultrasound 06/08/20 00:00 IMPRESSION: SUCCESSFUL THORACENTESIS AND CHEST TUBE PLACEMENT USING ULTRASOUND GUIDANCE. Chest CT 06/09/20 00:00 IMPRESSION: 1. RIGHT-SIDED PIGTAIL PLEURAL CATHETER WITH INTERVAL DECREASE IN THE PLEURAL EFFUSION. THERE IS NOW A MILD TO MODERATE RIGHT PNEUMOTHORAX. THE CATHETER WILL BE READJUSTED. 2. MODERATE LEFT PLEURAL EFFUSION, UNCHANGED. DIFFUSE AIRSPACE DISEASE UNCHANGED. Chest X-Ray 06/11/20 08:00 IMPRESSION: Improved appearance of the right lung with decrease in the pneumothorax. Catheter has been repositioned. Small right effusion. Assessment & Plan - Time Critical Time spent with patient: 15-24 minutes - Plan Summary Plan Summary: 59-year-old male with right pneumothorax possibly from renal insufficiency. Right chest tube was placed by radiology is and connected to a Pleur-evac. The chest x-ray today showed improvement in the pneumothorax which may have been due to the catheter placement. Recommendations: Continue with monitoring of the chest tube and also serial chest x-ray for resolution of the pneumothorax. If still has persistent pneumo in [address] Phelps will put in right anterior chest tube.
[2020-06-11 10:58] LABS: HEMOGLOBIN 15.4 g/dL (13.5-17.0); MEAN CORPUSCULAR HEMOGLOBIN 28.9 pg (27.0-33.4); MEAN CORPUSCULAR HGB CONC 32.8 g/dL (32.0-36.0); MEAN CORPUSCULAR VOLUME 88 fl (80-97); PLATELET COUNT 230 10^3/uL (150-450); RED BLOOD COUNT 5.34 10^6/uL (4.35-5.55); RED CELL DISTRIBUTION WIDTH 20.3 % (11.5-14.0); WHITE BLOOD COUNT 8.3 10^3/uL (4.0-10.5)
[2020-06-11 11:15] LABS: ALBUMIN 3.3 g/dL (3.5-5.0); ALKALINE PHOSPHATASE 140 U/L (38-126); ANION GAP 8 (5-19); ASPARTATE AMINO TRANSFERASE 22 U/L (17-59); BILIRUBIN,DIRECT 0.4 mg/dL (0.0-0.4); BILIRUBIN,TOTAL 1.3 mg/dL (0.2-1.3); BLOOD UREA NITROGEN 30 mg/dL (7-20); CALCIUM 9.4 mg/dL (8.4-10.2); CARBON DIOXIDE 25 mmol/L (22-30); CHLORIDE 97 mmol/L (98-107); GLUCOSE 100 mg/dL (75-110); POTASSIUM 4.4 mmol/L (3.6-5.0); TOTAL PROTEIN 6.6 g/dL (6.3-8.2)
[2020-06-11 11:17] LABS: ABSOLUTE LYMPHOCYTES# (MANUAL) 0.3 10^3/uL (0.5-4.7); ABSOLUTE MONOCYTES # (MANUAL) 0.7 10^3/uL (0.1-1.4); BASOPHILS % (MANUAL) 0 % (0-2); EOSINOPHILS % (MANUAL) 0 % (0-6); LYMPHOCYTES % (MANUAL) 4 % (13-45); MONOCYTES % (MANUAL) 9 % (3-13); SEGMENTED NEUTROPHILS % (MAN) 87 % (42-78); TOTAL CELLS COUNTED 100
[2020-06-11 11:18] LABS: ANISOCYTOSIS 2+; PLATELET COMMENT ADEQUATE
[2020-06-11 12:39] LABS: APPEARANCE,URINE CLEAR; BILIRUBIN,URINE NEGATIVE (NEGATIVE); COLOR,URINE YELLOW; GLUCOSE, URINE NEGATIVE (NEGATIVE); KETONES,URINE NEGATIVE (NEGATIVE); LEUKOCYTE ESTERASE,URINE NEGATIVE (NEGATIVE); NITRITE,URINE NEGATIVE (NEGATIVE); PROTEIN,URINE NEGATIVE (NEGATIVE); URINE SPECIFIC GRAVITY 1.015; UROBILINOGEN,URINE NEGATIVE mg/dL (<2.0)
--- NOTE | 2020-06-11 13:36 | PDOC PROGRESS REPORT ---
Subjective Progress Note for:: 06/11/20 Subjective:: Patient seen and examined. Had initiation of dialysis on Saturday. Presently off dopamine. Feels somewhat better. Has had iatrogenic pneumothorax after placement of right-sided chest tube. The surgical service is following. He may require insertion of another chest tube. Reason For Visit: V TACHYCARDIA Physical Exam Vital Signs: Temp Pulse Resp BP Pulse Ox 97.5 F 80 16 103/64 94 06/11/20 12:32 06/11/20 12:32 06/11/20 12:32 06/11/20 12:32 06/11/20 12:32 Intake & Output 06/10/20 06/11/20 06/12/20 06:59 06:59 06:59 Intake Total 1061 2785 12 Output Total 1000 2800 375 Balance 61 -15 -363 Weight 54.5 kg 55.3 kg General appearance: PRESENT: no acute distress, thin, other - Gaunt facies. Cachexia is noted. Head exam: PRESENT: atraumatic, normocephalic - Significant temporal wasting. Eye exam: PRESENT: conjunctiva pale Mouth exam: PRESENT: moist Respiratory exam: PRESENT: crackles, decreased breath sounds, prolonged expiratory phas, symmetrical, unlabored, other - Chest tube right side Cardiovascular exam: PRESENT: RRR, +S1, +S2, other - Permacath noted left upper chest wall. Pulses: PRESENT: normal radial pulses GI/Abdominal exam: PRESENT: soft Rectal exam: PRESENT: deferred Neurological exam: PRESENT: alert, awake, oriented to person, oriented to place, oriented to time, oriented to situation Psychiatric exam: PRESENT: appropriate affect Skin exam: PRESENT: dry, intact Results Laboratory Results: 06/11/20 10:37 06/11/20 10:37 06/11/20 06/11/20 06/11/20 10:37 10:37 11:51 WBC 8.3 RBC 5.34 Hgb 15.4 Hct 47.0 MCV 88 MCH 28.9 MCHC 32.8 RDW 20.3 H Plt Count 230 Seg Neutrophils % Not Reportable Sodium 130.3 L Potassium 4.4 Chloride 97 L Carbon Dioxide 25 Anion Gap 8 BUN 30 H Creatinine 2.01 H Est GFR ( Amer) 41 L Glucose 100 Calcium 9.4 Magnesium 2.0 Total Bilirubin 1.3 AST 22 Alkaline Phosphatase 140 H Total Protein 6.6 Albumin 3.3 L Urine Color YELLOW Urine Appearance CLEAR Urine pH 5.0 Ur Specific [place] 1.015 Urine Protein NEGATIVE Urine Glucose (UA) NEGATIVE Urine Ketones NEGATIVE Urine Blood NEGATIVE Urine Nitrite NEGATIVE Ur Leukocyte Esterase NEGATIVE Urine WBC (Auto) 0 Urine RBC (Auto) 1 06/07/20 06/07/20 06/07/20 12:24 12:24 15:08 Creatine Kinase 34 L Troponin I 0.035 0.041 NT-Pro-B Natriuret Pep 06/07/20 06/07/20 06/08/20 16:45 22:01 05:25 Creatine Kinase 35 L 40 L 35 L Troponin I NT-Pro-B Natriuret Pep 06/08/20 05:25 Creatine Kinase Troponin I NT-Pro-B Natriuret Pep [id number] H Impressions: Head CT 06/07/20 13:02 IMPRESSION: Stable CT of the brain with bifrontal encephalomalacia. No acute intracranial event. EVIDENCE OF ACUTE STROKE: NO. Abdomen/Pelvis CT 06/07/20 13:03 IMPRESSION: There is a large amount of ascites. 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 No other significant finding. Thoracentesis Ultrasound 06/08/20 00:00 IMPRESSION: SUCCESSFUL THORACENTESIS AND CHEST TUBE PLACEMENT USING ULTRASOUND GUIDANCE. Chest CT 06/09/20 00:00 IMPRESSION: 1. RIGHT-SIDED PIGTAIL PLEURAL CATHETER WITH INTERVAL DECREASE IN THE PLEURAL EFFUSION. THERE IS NOW A MILD TO MODERATE RIGHT PNEUMOTHORAX. THE CATHETER WILL BE READJUSTED. 2. MODERATE LEFT PLEURAL EFFUSION, UNCHANGED. DIFFUSE AIRSPACE DISEASE UNCHANGED. Chest X-Ray 06/11/20 08:00 IMPRESSION: Improved appearance of the right lung with decrease in the pneumothorax. Catheter has been repositioned. Small right effusion. Assessment & Plan - Diagnosis (1) Atrial fibrillation Is this a current diagnosis for this admission?: Yes Plan: Warfarin INR 2-3 when restarted Heparin un fractionated IV meanwhile Now maintaining SR after cardioversion albeit done for WCT which was likely VT Continue unfractionated heparin in anticipation of additional procedures including no chest tube placement or repositioning of chest tube. Transition to warfarin when invasive procedures have been completed. Continues to maintain sinus rhythm. (2) CHF (congestive heart failure) Qualifiers: Heart failure chronicity: chronic Is this a current diagnosis for this admission?: Yes Plan: Volume overload status with low CO Cardiac function and perfusion is improved after dopamine. Dopamine is now been discontinued. He tolerated hemodialysis well. Hopefully this will result in a reduction of his volume overload status. Unable to initiate guideline directed medical therapy unless stable blood pressure is ensured. (3) Ventricular tachyarrhythmia Is this a current diagnosis for this admission?: Yes Plan: Hypoxia and respiratory distress appear to have preceded the episode which was likely VT Watch for recurrence Reluctant to use anti-arrhythmic especially Amiodarone given poor lung and hepatic status Ideally given low LVEF and WCT likely VT should pursue ICD-this is complicated by poor functional status, poor muscle mass and likely limited life expectancy given multiple medical problems and evidence of multiple organ dysfunction. I discussed this with the patient at length. A suitable but not ideal option would to pursue a wearable defibrillator until 1. Functional status improves 2. He becomes better nourished with improved muscle mass-lack of healing and susceptibility to infection affter ICD implant being concerns -SICD is a bulky device and risks device erosion. 3. Chest tube is removed 4. [place] scenario would require permanent HD access on right chest wall so we can use left sided access for transvenous ICD 5. There is improvement in liver function and overall health (4) CHF exacerbation Qualifiers: Heart failure type: unspecified Qualified Code(s): I50.9 - Heart failure, unspecified Is this a current diagnosis for this admission?: Yes Plan: Hopefully will improve with initiation of HD Low out put state has improved with Dopamine gtt and now blood pressures are better. Dopamine has been turned off. (5) CKD (chronic kidney disease) requiring chronic dialysis Is this a current diagnosis for this admission?: Yes Plan: CKD with low volume urine out out HD has been tolerated well.
[2020-06-11 13:46] LABS: HEPATITIS B CORE AB TOT Negative (Negative)
[2020-06-11] MEDS: MORPHINE SULFATE 10 MG/ML INJ IV PRN (20:27)
[2020-06-12] MEDS: IPRATROPIUM/ALBUTEROL 0.5-2.5 MG/3 ML AMPUL NEB SCH ×4 (02:10→20:03)
[2020-06-12] MEDS: HEPARIN SODIUM,PORCINE/D5W 25,000 UNIT/250 ML RTUINJ IV PRN (04:30)
[2020-06-12] MEDS: ONDANSETRON HCL INJ/PF 4 MG/2 ML SDV IV PRN (04:30)
[2020-06-12] MEDS: MORPHINE SULFATE 10 MG/ML INJ IV PRN (04:39)
[2020-06-12] MEDS: PANTOPRAZOLE SODIUM 40 MG TABLET.DR PO SCH ×2 (05:12→17:35)
[2020-06-12] MEDS: METOPROLOL TARTRATE 50 MG TABLET PO SCH ×2 (10:02→22:23)
[2020-06-12] MEDS: ACETAMINOPHEN 325 MG TABLET PO PRN ×2 (10:02→22:23)
[2020-06-12] MEDS: MIDODRINE HCL 5 MG TABLET PO SCH ×3 (10:02→17:35)
[2020-06-12] MEDS: SPIRONOLACTONE 25 MG TABLET PO SCH (10:02)
[2020-06-12] MEDS: FUROSEMIDE INJ/PF 20 MG/2 ML SDV IV SCH ×2 (10:02→22:23)
[2020-06-12] MEDS: FLUTICASONE NASAL SPRAY 50 MCG/SPRY 120 SPRAY/16 GM NASL SCH (10:03)
--- NOTE | 2020-06-12 10:47 | PDOC PROGRESS REPORT ---
Subjective Progress Note for:: 06/12/20 Subjective:: 59 year old male with a history of congestive heart failure, pacemaker short- term dialysis still has a dialysis catheter, hypertension, atrial fibrillation on warfarin came in with complaints of shortness of breath and difficulty in ambulation. Patient's nephew called the EMS because of the patient's poor living condition EMS found that heart rate is more than 100 thinking it was a V. tach give him a shock. By the time patient arrival at the ER he is in sinus r hythm heart rate is in the 80s. Initial lactic acid level is one-point 0 repeat lactic acid is 2.1. Patient denies any fevers denies any chills denies any headaches dizzy spells nausea vomiting diarrhea. His main complaint is shortness of breath and difficulty in ambulation at home. Consulted with Dr. Cornelius Root was requested by the ER. 06/08/2020-patient is on heparin drip at this time Coumadin is on hold. CT scan shows large right-sided pleural effusion going for thoracentesis today. C omfortably in the bed not in distress. 06/09/2020-patient is comfortable in the bed communicating well. He agreed to go to a long-term care facility. Patient is going for dialysis tomorrow. Cardiol ogy consult was done. He has a previous admission at [facility] according to the records cardiac cath is normal. EF at that time of mitral valve replacement EF is 55%. Echocardiogram here with EF of 25%. Patient's overall prognosis is poor. It is because of heart failure, renal failure, COPD, liver failure. 06/10/2020-patient is going to the ICU for dialysis because he is on a dopamine drip. Surgical consult was requested for management of the chest tube. Patient is comfortably in the bed communicating well not in distress. Once he finishes his dialysis unit in ICU he will be back to fifth floor. 06/11/2020-patient is comfortable in the bed communicating well. Denies any problems. Physical therapy is working with the patient. He completed dialysis successfully yesterday. Chest tube management as per surgical team. 06/12/2020-patient is comfortably in the chair communicating well. Patient has a chest tube in the right side continues to leak nurses using maxi pad. Dr. Henry is notified. Reason For Visit: V TACHYCARDIA Physical Exam Vital Signs: Temp Pulse Resp BP Pulse Ox 97.3 F 80 16 100/75 93 06/12/20 08:14 06/12/20 08:38 06/12/20 08:38 06/12/20 08:14 06/12/20 08:38 Intake & Output 06/11/20 06/12/20 06/13/20 06:59 06:59 06:59 Intake Total 2785 445 Output Total 2800 940 Balance -15 -495 Weight 55.3 kg 55.3 kg General appearance: PRESENT: cooperative, disheveled, thin Head exam: PRESENT: atraumatic Eye exam: PRESENT: PERRLA Ear exam: PRESENT: normal external ear exam Mouth exam: PRESENT: neck supple Teeth exam: PRESENT: poor dentation Neck exam: ABSENT: carotid bruit, JVD, lymphadenopathy, thyromegaly Respiratory exam: PRESENT: decreased breath sounds Cardiovascular exam: PRESENT: RRR. ABSENT: diastolic murmur, rubs, systolic murmur GI/Abdominal exam: PRESENT: normal bowel sounds, soft. ABSENT: distended, guarding, mass, organolmegaly, rebound, tenderness Rectal exam: PRESENT: deferred Extremities exam: PRESENT: full ROM. ABSENT: calf tenderness, clubbing, pedal edema Neurological exam: PRESENT: alert, awake, oriented to person, oriented to place, oriented to time, oriented to situation, CN II-XII grossly intact. ABSENT: motor sensory deficit Skin exam: PRESENT: dry, intact, warm. ABSENT: cyanosis, rash Results Laboratory Results: 06/11/20 10:37 06/11/20 10:37 06/11/20 06/11/20 06/11/20 10:37 10:37 11:51 WBC 8.3 RBC 5.34 Hgb 15.4 Hct 47.0 MCV 88 MCH 28.9 MCHC 32.8 RDW 20.3 H Plt Count 230 Seg Neutrophils % Not Reportable Sodium 130.3 L Potassium 4.4 Chloride 97 L Carbon Dioxide 25 Anion Gap 8 BUN 30 H Creatinine 2.01 H Est GFR ( Amer) 41 L Glucose 100 Calcium 9.4 Magnesium 2.0 Total Bilirubin 1.3 AST 22 Alkaline Phosphatase 140 H Total Protein 6.6 Albumin 3.3 L Urine Color YELLOW Urine Appearance CLEAR Urine pH 5.0 Ur Specific [place] 1.015 Urine Protein NEGATIVE Urine Glucose (UA) NEGATIVE Urine Ketones NEGATIVE Urine Blood NEGATIVE Urine Nitrite NEGATIVE Ur Leukocyte Esterase NEGATIVE Urine WBC (Auto) 0 Urine RBC (Auto) 1 06/07/20 06/07/20 06/07/20 12:24 12:24 15:08 Creatine Kinase 34 L Troponin I 0.035 0.041 NT-Pro-B Natriuret Pep 06/07/20 06/07/20 06/08/20 16:45 22:01 05:25 Creatine Kinase 35 L 40 L 35 L Troponin I NT-Pro-B Natriuret Pep 06/08/20 05:25 Creatine Kinase Troponin I NT-Pro-B Natriuret Pep 37857 H Impressions: Head CT 06/07/20 13:02 IMPRESSION: Stable CT of the brain with bifrontal encephalomalacia. No acute intracranial event. EVIDENCE OF ACUTE STROKE: NO. Abdomen/Pelvis CT 06/07/20 13:03 IMPRESSION: There is a large amount of ascites. 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 No other significant finding. Thoracentesis Ultrasound 06/08/20 00:00 IMPRESSION: SUCCESSFUL THORACENTESIS AND CHEST TUBE PLACEMENT USING ULTRASOUND GUIDANCE. Chest CT 06/09/20 00:00 IMPRESSION: 1. RIGHT-SIDED PIGTAIL PLEURAL CATHETER WITH INTERVAL DECREASE IN THE PLEURAL EFFUSION. THERE IS NOW A MILD TO MODERATE RIGHT PNEUMOTHORAX. THE CATHETER WILL BE READJUSTED. 2. MODERATE LEFT PLEURAL EFFUSION, UNCHANGED. DIFFUSE AIRSPACE DISEASE UNCHANGED. Chest X-Ray 06/11/20 08:00 IMPRESSION: Improved appearance of the right lung with decrease in the pneumothorax. Catheter has been repositioned. Small right effusion. Assessment and Plan - Diagnosis (1) Ventricular tachyarrhythmia Is this a current diagnosis for this admission?: Yes Plan: 06/07/2020-patient is going to be admitted to [facility] as an inpatient because of questionable V. tach status post shock by the EMS. Cardiology consult was requested serial troponins will be requested. He is a full code. Consultation with Dr. Shieldsanil requested. Echocardiogram is requested. 06/08/2020-heart rate today is 94. In sinus rhythm. Recently on heparin drip. Latest troponin is 0.041. BNP is 16,800. 06/09/2020-heart rate is 81. Rate controlled A. fib. On heparin drip. 06/10/2020-heart rate in the 90s. Rate controlled A. fib. He is on heparin drip at this time. 06/12/2020-heart rate in the 80s. Rate controlled rhythm. Still on heparin drip. (2) COPD (chronic obstructive pulmonary disease) Qualifiers: Is this a current diagnosis for this admission?: No Plan: 06/07/20-patient has history of COPD secondary to chronic smoking as per the patient his quit smoking 6 months ago. Pulse ox is within normal limits in the emergency room. 06/08/2020-patient has history of COPD pulse ox is 94% 2 L. Comfortably in the bed communicating well. 06/09/2020-patient admitted with a loculated large right pleural effusion status post chest tube placement. 06/10/2020-patient has a chest tube for a right-sided loculated pleural effusion. He also has a pneumothorax. As per the surgery pneumothorax size is decreasing. 06/11/2020-patient has right-sided chest tube. Pneumothorax is improving. 06/12/2020-patient has right-sided chest tube driving with air leak. Pulse ox is 99% on room air. Improved. (3) Atrial fibrillation Is this a current diagnosis for this admission?: Yes Plan: 06/07/2020-patient has history of chronic longstanding atrial fibrillation. On warfarin at home. INR is 1.44 in the ER. Plan is to continue Coumadin and recheck INR tomorrow. 06/08/2020-patient has history of chronic longstanding atrial fibrillation. On warfarin at home. Warfarin is on hold presently on heparin drip. 06/09/2020-patient has a longstanding history of hypertension on Coumadin at home. At this time he is on heparin drip. 06/10/2020-heart rate in the 90s. In A. fib. On heparin drip for anticoagulation. 06/11/2020-patient is on heparin drip at this time. Plan is to continue heparin drip. Heart rate is relatively controlled. (4) Ascites Is this a current diagnosis for this admission?: No Plan: 06/07/2020-patient has history of chronic ascites most likely secondary to end- stage renal disease, history of alcohol abuse causing liver cirrhosis. 06/09/2020-as per the records from the [facility] patient developed shock liver during the hospital stay. (5) Pleural effusion Is this a current diagnosis for this admission?: Yes Plan: 06/07/2020-patient has a large pleural effusion on the right side to arrange for a thoracentesis tomorrow. 06/08/2020-patient has loculated right-sided pleural effusion as per the radiology patient need a chest tube. Patient also agreed for chest tube p lacement. 06/09/2020-patient has a loculated right-sided pleural effusion status post chest tube placement. 06/10/2020-patient has right-sided chest tube draining at least 1 L/day. 06/11/2020-chest tube was placed by radiology for a loculated right-sided pleural effusion. Surgical team is managing the chest tube at this time. 06/12/20-patient has a chest tube for right-sided loculated pleural effusion. As per the nurses chest tube is leaking. The using the maxipads at this time. Surgery is notified. (6) ESRD (end stage renal disease) on dialysis Is this a current diagnosis for this admission?: No Plan: 06/07/2020-patient has history of hemodialysis for a short while still carrying the dialysis catheter on the left side of the chest. Creatinine is 1.7 potassium within normal limits. Plan is to recheck the labs tomorrow. 06/08/2020-serum creatinine today 1.86. Patient has stage III kidney disease. Serum potassium is 3.7. No need for dialysis at this time. Patient has a dialysis access present on the left side of the chest. 06/09/2020-consultation with Dr. Cornelius Godfrey was done and patient is going for dialysis tomorrow. 06/10/2020-patient is going to the dialysis in ICU today because he is on a dopamine drip. Once the dialysis session is finished in ICU he will be back to fifth floor. 06/11/2020-patient completed dialysis in the ICU because on the dopamine drip. Blood pressures are improved today plan is to discontinue dopamine drip. (7) Shortness of breath Is this a current diagnosis for this admission?: Yes Plan: 06/07/2020-patient came with complaints of shortness of breath. No obvious pneumonia seen. There is a small left-sided pleural effusion and a large right- sided pleural effusion. To arrange for thoracentesis tomorrow. 06/08/2020-patient laying flat in the bed denies any shortness of breath. Pulse ox is 94% on 2 L. 06/09/2020-patient shortness of breath is improving after placement of the chest tube. He is going for dialysis tomorrow hopefully it will further improve his shortness of breath. Pulse ox is 93% room air. 06/11/2020-patient is comfortably in the bed laying flat. Denies any shortness of breath. Pulse ox is 93% on 2 L. (8) CHF (congestive heart failure) Qualifiers: Heart failure chronicity: chronic Is this a current diagnosis for this admission?: Yes Plan: 06/07/2020-patient has history of congestive heart failure with cardiomegaly and bilateral pleural effusions and echocardiogram was requested. I do not have the previous echocardiogram report available. 06/08/2020-echocardiogram was done yesterday EF is around 25 to 30%. pLan is to put him on beta-blockers, CHICA inhibitor's, if needed and spironolactone. 06/09/2020-patient has chronic systolic heart failure. EF is 25 to 30%. It is presently on a dopamine drip because of hypotension, CHICA inhibitor's, spironolactone, Bumex on hold. 06/10/2020-patient has chronic systolic heart failure. EF is 25 to 30%. Because he is hypotensive on dopamine drip not on diuretics at this time. 06/11/20-patient is receiving Lasix 20 mg IV twice a day. Not in fluid overload at this time. (9) Protein-energy malnutrition Qualifiers: Protein-calorie malnutrition severity: mild Qualified Code(s): E44.1 - Mild protein-calorie malnutrition Is this a current diagnosis for this admission?: Yes Plan: 06/10/2020-patient BMI is more than 20 may have a mild protein energy malnutrition. Receiving dietary supplementations at this time. - Time Anticipated discharge: SNF Within: within 72 hours
[2020-06-12 10:50] LABS: ABSOLUTE BASOPHILS # (AUTO) 0.1 10^3/uL (0.0-0.2); ABSOLUTE LYMPHOCYTES (AUTO) 0.5 10^3/uL (0.5-4.7); ABSOLUTE MONOCYTES (AUTO) 0.6 10^3/uL (0.1-1.4); ABSOLUTE NEUT (AUTO) 6.5 10^3/uL (1.7-8.2); BASOPHILS % (AUTO) 0.8 % (0-2); EOSINOPHILS % (AUTO) 0.4 % (0-6); HEMATOCRIT 48.4 % (37.9-51.0); HEMOGLOBIN 15.8 g/dL (13.5-17.0); MEAN CORPUSCULAR HEMOGLOBIN 28.7 pg (27.0-33.4); MEAN CORPUSCULAR HGB CONC 32.6 g/dL (32.0-36.0); MEAN CORPUSCULAR VOLUME 88 fl (80-97); MONOCYTES % (AUTO) 7.4 % (3-13); PLATELET COUNT 218 10^3/uL (150-450); RED BLOOD COUNT 5.49 10^6/uL (4.35-5.55); RED CELL DISTRIBUTION WIDTH 20.1 % (11.5-14.0); SEGMENTED NEUTROPHILS % (AUTO) 85.4 % (42-78); TOTAL CELLS COUNTED % (AUTO) 100 %; WHITE BLOOD COUNT 7.6 10^3/uL (4.0-10.5)
[2020-06-12 11:51] LABS: ALBUMIN 3.4 g/dL (3.5-5.0); ALKALINE PHOSPHATASE 136 U/L (38-126); ANION GAP 10 (5-19); ASPARTATE AMINO TRANSFERASE 26 U/L (17-59); BILIRUBIN,DIRECT 0.5 mg/dL (0.0-0.4); BILIRUBIN,TOTAL 1.5 mg/dL (0.2-1.3); BLOOD UREA NITROGEN 33 mg/dL (7-20); CALCIUM 9.7 mg/dL (8.4-10.2); CARBON DIOXIDE 23 mmol/L (22-30); CHLORIDE 96 mmol/L (98-107); GLUCOSE 104 mg/dL (75-110); POTASSIUM 4.9 mmol/L (3.6-5.0); TOTAL PROTEIN 6.7 g/dL (6.3-8.2)
--- NOTE | 2020-06-12 18:22 | RADIOLOGY REPORT (SQ) ---
EXAM DESCRIPTION: CHEST SINGLE VIEW IMAGES COMPLETED DATE/TIME: 06/12/2020 6:04 pm REASON FOR STUDY: chest tube placement COMPARISON: 06/11/2020 EXAM PARAMETERS: NUMBER OF VIEWS: One view. TECHNIQUE: Single frontal radiographic view of the chest acquired. RADIATION DOSE: NA LIMITATIONS: None. FINDINGS: LUNGS AND PLEURA: Pigtail catheter in the right pleural space. Interval development of a small pneumothorax. Small right effusion. Right basilar opacity. Increasing left effusion and basi lar opacity. MEDIASTINUM AND HILAR STRUCTURES: No masses. Contour normal. HEART AND VASCULAR STRUCTURES: Heart normal in size. Normal vasculature. BONES: No acute findings. HARDWARE: Duo lumen venous access catheter is unchanged. OTHER: No other significant finding. IMPRESSION: New small pneumothorax right lateral. Chest tube in the right pleural space with small effusion and basilar opacities. Increasing left basilar opacities and effusion. TECHNICAL DOCUMENTATION: JOB ID: [id number] 2010 [employer]- All Rights Reserved Reading location - IP/workstation name: [email or web address]
--- NOTE | 2020-06-12 21:21 | PDOC PROGRESS REPORT ---
Subjective Progress Note for:: 06/12/20 Subjective:: Pains of the chest tube insertion site on his back. Reason For Visit: V TACHYCARDIA Physical Exam Vital Signs: Temp Pulse Resp BP Pulse Ox 97.2 F 87 16 107/73 96 06/12/20 17:10 06/12/20 19:00 06/12/20 17:10 06/12/20 17:10 06/12/20 17:10 Intake & Output 06/11/20 06/12/20 06/13/20 06:59 06:59 06:59 Intake Total 2785 445 125 Output Total 2800 940 150 Balance -15 -495 -25 Weight 55.3 kg 55.3 kg Exam: Small drainage tube placed on his back by IR appears to be partially pulled out. Vaseline gauze was applied around it. I ordered stat portable chest x-ray tonight and showed persistent pneumothorax may be slightly increased. However I do not see any air leak on the pleural VAC. Still draining clear fluid about 150 cc past 24 hours Results Laboratory Results: 06/12/20 05:06 06/12/20 11:22 06/12/20 06/12/20 06/12/20 05:06 11:22 11:22 WBC 7.6 RBC 5.49 Hgb 15.8 Hct 48.4 MCV 88 MCH 28.7 MCHC 32.6 RDW 20.1 H Plt Count 218 Seg Neutrophils % 85.4 H Sodium 129.0 L Potassium 4.9 Chloride 96 L Carbon Dioxide 23 Anion Gap 10 BUN 33 H Creatinine 2.28 H Est GFR ( Amer) 36 L Glucose 104 Calcium 9.7 Total Bilirubin 1.5 H AST 26 Alkaline Phosphatase 136 H Ammonia 8.8 L Total Protein 6.7 Albumin 3.4 L 06/07/20 15:00 Blood Blood Culture - Final NO GROWTH IN 5 DAYS 06/07/20 15:08 Blood Blood Culture - Final NO GROWTH IN 5 DAYS 06/07/20 06/07/20 06/07/20 12:24 12:24 15:08 Creatine Kinase 34 L Troponin I 0.035 0.041 NT-Pro-B Natriuret Pep 06/07/20 06/07/20 06/08/20 16:45 22:01 05:25 Creatine Kinase 35 L 40 L 35 L Troponin I NT-Pro-B Natriuret Pep 06/08/20 05:25 Creatine Kinase Troponin I NT-Pro-B Natriuret Pep [id number] H Impressions: Head CT 06/07/20 13:02 IMPRESSION: Stable CT of the brain with bifrontal encephalomalacia. No acute intracranial event. EVIDENCE OF ACUTE STROKE: NO. Abdomen/Pelvis CT 06/07/20 13:03 IMPRESSION: There is a large amount of ascites. 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 No other significant finding. Thoracentesis Ultrasound 06/08/20 00:00 IMPRESSION: SUCCESSFUL THORACENTESIS AND CHEST TUBE PLACEMENT USING ULTRASOUND GUIDANCE. Chest CT 06/09/20 00:00 IMPRESSION: 1. RIGHT-SIDED PIGTAIL PLEURAL CATHETER WITH INTERVAL DECREASE IN THE PLEURAL EFFUSION. THERE IS NOW A MILD TO MODERATE RIGHT PNEUMOTHORAX. THE CATHETER WILL BE READJUSTED. 2. MODERATE LEFT PLEURAL EFFUSION, UNCHANGED. DIFFUSE AIRSPACE DISEASE UNCHANGED. Chest X-Ray 06/12/20 00:00 IMPRESSION: New small pneumothorax right lateral. Chest tube in the right pleural space with small effusion and basilar opacities. Increasing left basilar opacities and effusion. Assessment & Plan - Time Critical Time spent with patient: 15-24 minutes - Plan Summary Plan Summary: Recommendations: Keep suction -25cm water pressure. Keep Vaseline gauze around chest tube insertion site to make sure there is no air leak. Apparently there is been no draining fluid around it though when checked tonight no drainage was noted. We will repeat the x-ray in the morning and if still with persistent pneum othorax Dr. Phelps will place another chest tube unless patient clinically worsens tonight then definitely the patient will need emergency placement of a second chest tube.
[2020-06-13] MEDS: IPRATROPIUM/ALBUTEROL 0.5-2.5 MG/3 ML AMPUL NEB SCH ×4 (02:23→21:07)
[2020-06-13] MEDS: HEPARIN SODIUM,PORCINE/D5W 25,000 UNIT/250 ML RTUINJ IV PRN (04:19)
[2020-06-13] MEDS: PANTOPRAZOLE SODIUM 40 MG TABLET.DR PO SCH ×2 (05:32→17:10)
[2020-06-13 05:35] LABS: HEMATOCRIT 43.7 % (37.9-51.0); HEMOGLOBIN 14.2 g/dL (13.5-17.0); MEAN CORPUSCULAR HEMOGLOBIN 28.6 pg (27.0-33.4); MEAN CORPUSCULAR HGB CONC 32.5 g/dL (32.0-36.0); MEAN CORPUSCULAR VOLUME 88 fl (80-97); PLATELET COUNT 232 10^3/uL (150-450); RED BLOOD COUNT 4.96 10^6/uL (4.35-5.55); RED CELL DISTRIBUTION WIDTH 19.9 % (11.5-14.0); WHITE BLOOD COUNT 11.1 10^3/uL (4.0-10.5)
[2020-06-13] MEDS ORDERED: HEPARIN SOD (PORCINE) 1,000 UNIT/ML 10 ML VIAL IV PRN (07:38)
[2020-06-13 08:02] LABS: HEMATOCRIT 42.4 % (37.9-51.0); HEMOGLOBIN 13.8 g/dL (13.5-17.0); MEAN CORPUSCULAR HEMOGLOBIN 28.8 pg (27.0-33.4); MEAN CORPUSCULAR HGB CONC 32.6 g/dL (32.0-36.0); MEAN CORPUSCULAR VOLUME 88 fl (80-97); PLATELET COUNT 261 10^3/uL (150-450); RED CELL DISTRIBUTION WIDTH 19.9 % (11.5-14.0); WHITE BLOOD COUNT 11.1 10^3/uL (4.0-10.5)
[2020-06-13 08:08] LABS: ANION GAP 9 (5-19); BLOOD UREA NITROGEN 38 mg/dL (7-20); CALCIUM 9.4 mg/dL (8.4-10.2); CARBON DIOXIDE 27 mmol/L (22-30); CHLORIDE 92 mmol/L (98-107); GLUCOSE 94 mg/dL (75-110); POTASSIUM 4.5 mmol/L (3.6-5.0)
--- NOTE | 2020-06-13 09:04 | PDOC PROGRESS REPORT ---
Subjective Progress Note for:: 06/13/20 Subjective:: 59-year-old male with an iatrogenic pneumothorax after radiology guided thoracentesis. Patient continues to have high output from his posterior chest tube. He continues to have a small, persistent pneumothorax. Today he denies chest pain, shortness of breath, fevers, chills, nausea, vomiting, dizziness, headache. Reason For Visit: V TACHYCARDIA Physical Exam Vital Signs: Temp Pulse Resp BP Pulse Ox 97.5 F 84 16 96/65 L 90 L 06/12/20 23:31 06/13/20 08:20 06/13/20 08:20 06/13/20 02:46 06/13/20 08:20 Intake & Output 06/12/20 06/13/20 06/14/20 06:59 06:59 06:59 Intake Total 445 313 Output Total 1010 275 Balance -565 38 Weight 55.3 kg General appearance: PRESENT: no acute distress, cooperative Head exam: PRESENT: atraumatic, normocephalic Eye exam: PRESENT: EOMI, PERRLA. ABSENT: scleral icterus Mouth exam: PRESENT: moist, neck supple Neck exam: ABSENT: meningismus, tenderness, thyromegaly, tracheal deviation Respiratory exam: PRESENT: other - Posterior chest tube in place. Large amount of serosanguineous output. Cardiovascular exam: ABSENT: tachycardia Vascular exam: PRESENT: normal capillary refill. ABSENT: pallor GI/Abdominal exam: PRESENT: soft. ABSENT: distended, tenderness Rectal exam: PRESENT: deferred Extremities exam: ABSENT: clubbing Musculoskeletal exam: ABSENT: deformity Neurological exam: PRESENT: alert, awake, oriented to person, oriented to place, oriented to time, oriented to situation, CN II-XII grossly intact Psychiatric exam: ABSENT: agitated, anxious, depressed Focused psych exam: ABSENT: delusional Skin exam: ABSENT: cyanosis, erythema, jaundice Results Laboratory Results: 06/13/20 07:00 06/13/20 07:00 06/12/20 06/12/20 06/12/20 05:06 11:22 11:22 WBC 7.6 RBC 5.49 Hgb 15.8 Hct 48.4 MCV 88 MCH 28.7 MCHC 32.6 RDW 20.1 H Plt Count 218 Seg Neutrophils % 85.4 H Sodium 129.0 L Potassium 4.9 Chloride 96 L Carbon Dioxide 23 Anion Gap 10 BUN 33 H Creatinine 2.28 H Est GFR ( Amer) 36 L Glucose 104 Calcium 9.7 Total Bilirubin 1.5 H AST 26 Alkaline Phosphatase 136 H Ammonia 8.8 L Total Protein 6.7 Albumin 3.4 L 06/13/20 06/13/20 06/13/20 05:00 07:00 07:00 WBC 11.1 H 11.1 H RBC 4.96 4.80 Hgb 14.2 13.8 Hct 43.7 42.4 MCV 88 88 MCH 28.6 28.8 MCHC 32.5 32.6 RDW 19.9 H 19.9 H Plt Count 232 261 Seg Neutrophils % Sodium 128.4 L Potassium 4.5 Chloride 92 L Carbon Dioxide 27 Anion Gap 9 BUN 38 H Creatinine 2.34 H Est GFR ( Amer) 35 L Glucose 94 Calcium 9.4 Total Bilirubin AST Alkaline Phosphatase Ammonia Total Protein Albumin 06/07/20 15:00 Blood Blood Culture - Final NO GROWTH IN 5 DAYS 06/07/20 15:08 Blood Blood Culture - Final NO GROWTH IN 5 DAYS 06/07/20 06/07/20 06/07/20 12:24 12:24 15:08 Creatine Kinase 34 L Troponin I 0.035 0.041 NT-Pro-B Natriuret Pep 06/07/20 06/07/20 06/08/20 16:45 22:01 05:25 Creatine Kinase 35 L 40 L 35 L Troponin I NT-Pro-B Natriuret Pep 06/08/20 05:25 Creatine Kinase Troponin I NT-Pro-B Natriuret Pep 12180 H Impressions: Head CT 06/07/20 13:02 IMPRESSION: Stable CT of the brain with bifrontal encephalomalacia. No acute intracranial event. EVIDENCE OF ACUTE STROKE: NO. Abdomen/Pelvis CT 06/07/20 13:03 IMPRESSION: There is a large amount of ascites. 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 No other significant finding. Thoracentesis Ultrasound 06/08/20 00:00 IMPRESSION: SUCCESSFUL THORACENTESIS AND CHEST TUBE PLACEMENT USING ULTRASOUND GUIDANCE. Chest CT 06/09/20 00:00 IMPRESSION: 1. RIGHT-SIDED PIGTAIL PLEURAL CATHETER WITH INTERVAL DECREASE IN THE PLEURAL EFFUSION. THERE IS NOW A MILD TO MODERATE RIGHT PNEUMOTHORAX. THE CATHETER WILL BE READJUSTED. 2. MODERATE LEFT PLEURAL EFFUSION, UNCHANGED. DIFFUSE AIRSPACE DISEASE UNCHANGED. Chest X-Ray 06/12/20 00:00 IMPRESSION: New small pneumothorax right lateral. Chest tube in the right pleural space with small effusion and basilar opacities. Increasing left basilar opacities and effusion. Assessment & Plan - Diagnosis (1) Pneumothorax, iatrogenic Is this a current diagnosis for this admission?: Yes (2) Hydrothorax Is this a current diagnosis for this admission?: Yes - Plan Summary Plan Summary: This is a 59-year-old male with a hydro-thorax, as well as iatrogenic pneumothorax. He has persistence of a small anterior pneumothorax, not resolved by his posterior, small bore chest tube. Plan for chest tube insertion today to help resolve his pneumothorax. His hydrothorax continues to be a problem. I believe the patient will require chemical pleurodesis with talc to resolve this. Plan for chest tube insertion today. I will request pharmacy to provide talc for pleurodesis. Plan for pleurodesis when talc is available. The plan has been discussed with the patient, and he is in agreement. Risks/benefits discussed, informed consent obtained, all questions answered.
--- NOTE | 2020-06-13 09:25 | Progress Note ---
Provider Note Provider Note: 59y/o male known to me from prior hospitalizations now admitted with resuscitated cardiac arrest, for details please see original cardiology consult by my partner, Dr. Shields. I was not able to evaluate the patient this morning as he is in the OR getting another chest tube. Will continue to monitor remotely and will attempt to evaluate him tomorrow. Please contact me immediately with any concerns.
[2020-06-13] MEDS: HEPARIN SOD (PORCINE) 1,000 UNIT/ML 10 ML VIAL IV PRN (09:42)
[2020-06-13] MEDS ORDERED: NORMAL SALINE IPL PRN (10:04)
[2020-06-13] MEDS ORDERED: TALC IPL PRN (10:04)
[2020-06-13] MEDS: METOPROLOL TARTRATE 50 MG TABLET PO SCH ×2 (10:31→22:22)
[2020-06-13] MEDS: FLUTICASONE NASAL SPRAY 50 MCG/SPRY 120 SPRAY/16 GM NASL SCH (10:31)
[2020-06-13] MEDS: MIDODRINE HCL 5 MG TABLET PO SCH ×3 (10:31→17:10)
[2020-06-13] MEDS: FUROSEMIDE INJ/PF 20 MG/2 ML SDV IV SCH ×2 (10:31→22:21)
[2020-06-13] MEDS: SPIRONOLACTONE 25 MG TABLET PO SCH (10:31)
[2020-06-13] MEDS ORDERED: MIDAZOLAM 2 MG/2 ML INJ ONE ×2 (12:35→16:11)
[2020-06-13] MEDS ORDERED: MORPHINE SULFATE 10 MG/ML INJ ONE (12:36)
[2020-06-13] MEDS ORDERED: FENTANYL CITRATE INJ/PF 100 MCG/2 ML AMPUL ONE (12:36)
[2020-06-13] MEDS ORDERED: LIDOCAINE 2% INJ (20 MG/ML) 20 ML MDV ONE (12:39)
--- NOTE | 2020-06-13 14:03 | Operative Report ---
Nonrecallable Operative Report DATE OF SURGERY: 06/13/20 PREOPERATIVE DIAGNOSIS: 1. Malpositioned percutaneous right tube thoracostomy. 2. Persistent iatrogenic pneumothorax. 3. Large volume hydrothorax, persistent POSTOPERATIVE DIAGNOSIS: Same as above OPERATION: 1. Removal of posterior percutaneous pigtail catheter (thoracostomy). 2. Insertion of 28 Belgian, anteriorly directed right-sided tube thoracostomy. 3. Chemical pleurodesis with 4 g talc slurry (right). SURGEON: RUIZ BENDER ANESTHESIA: Moderate Sedation - 4 mg of Versed COMPLICATIONS: None apparent ESTIMATED BLOOD LOSS: Minimal PROCEDURE: Drain/implants: 28 Belgian tube thoracostomy, directed anteriorly. Procedure in detail: After informed consent was obtained, the patient was laid in the left lateral decubitus position. The posterior pigtail catheter had its sentinel hole outside of the skin. This was removed. The area was then prepped and draped in a normal sterile fashion. The defect was sutured closed using 3-0 nylon suture in simple interrupted fashion. Next, attention was turned to placement of a formal 28 Belgian tube thoracostomy. The lateral chest wall was prepped and draped in a normal sterile fashion. 1% lidocaine was used to anesthetize the skin. 4 mg of Versed was given intravenously. A 15 blade scalpel was used to create an incision in the mid axillary line. Dissection was carried down to the chest wall using blunt dissection. A Katt clamp was used to enter the chest cavity, over top of the rib, at the level of the nipple. A small girard of air, and a moderate amount of fluid was encountered. A finger sweep was performed noting no immediate loculations. The 28 Belgian chest tube was inserted into the pleural space, and directed anteriorly. The chest tube was attached to a Pleur-evac. No air leak was identified. A dressing was placed, and this portion of the procedure was concluded. Attention was turned to performing of the chemical pleurodesis. 4 g of talc was dissolved in 50 cc of sterile saline. This was instilled into the chest tube, and into the thoracic cavity. The chest tube was then washed with 50 more cc of sterile saline. The chest tube was then clamped. The patient tolerated the procedure well. All sponge, instrument, and needle counts were correct x2. Condition: Fair.
--- NOTE | 2020-06-13 17:08 | RADIOLOGY REPORT (SQ) ---
EXAM DESCRIPTION: CHEST SINGLE VIEW IMAGES COMPLETED DATE/TIME: 06/13/2020 4:57 pm REASON FOR STUDY: Patient has recently placed chest tube COMPARISON: 06/12/2020 TECHNIQUE: Single frontal radiographic view of the chest acquired. NUMBER OF VIEWS: One view. LIMITATIONS: None. FINDINGS: LUNGS AND PLEURA: Slightly diminished right pneumothorax. Similar bilateral basilar airsp jackelyn opacities- pleural effusion. MEDIASTINUM AND HILAR STRUCTURES: Stable. HEART AND VASCULAR STRUCTURES: Stable. BONES: No acute findings. HARDWARE: CABG. Left tunneled central venous catheter. New right chest tube tip overlies the right medial lung base. OTHER: No other significant finding. IMPRESSION: New right chest tube tip overlies the right medial lung base.Slightly diminished right p neumothorax. Similar bilateral basilar airspace opacities- pleural effusion. TECHNICAL DOCUMENTATION: JOB ID: [id number] [id number] 2010 [employer]- All Rights Reserved Reading location - IP/workstation name: [email or web address]
--- NOTE | 2020-06-13 19:49 | PDOC PROGRESS REPORT ---
Subjective Progress Note for:: 06/13/20 Subjective:: Chart reviewed. Patient was admitted on June 07 having been found down by the EMS with tachyarrhythmia requiring 1 defibrillation. Patient had wide complex tachyarrhythmia. Back Hoe Operator, Dr. Shields was consulted. Echocardiogram on admission showed LVEF of 25 to 30% and moderately reduced right ventricular systolic function. Patient also had significant right pleural effusion for which thoracentesis and chest tube placement was inserted on June 08. This resulted in iatrogenic mild pneumothorax. Patient is scheduled today for repositioning/adjustment of his chest tube by surgery. Patient had a long complicated admission at [facility] from October 2019 until February 2020 with mechanical mitral valve replacement. He also had a PEA cardiac arrest in November causing acute kidney injury secondary to acute tubular necrosis requiring hemodialysis. Patient was discharged in February and subsequently was started on dialysis here in [place]. During previous admission in March he has shown some renal recovery with improvement of urine output with low-dose Lasix and stable kidney function with clinical stability. During that time his 24-hour urine creatinine clearance was around 15 mL/min. His follow-up kidney function post discharge was stable. Unfortunately the the patient has refused further follow-up, blood work, telemedicine and has not followed up with the cardiology as well since then. Patient told me today that he stopped his medications because he does not have any. I am seeing the patient during dialysis this morning. His blood pressure was initially low on dialysis at 88/61. It improved to about 95/68 after being given midodrine. He denies any chest pains, shortness of breath nor any other complaints. He appears to be comfortable on dialysis. Reason For Visit: V TACHYCARDIA Physical Exam Vital Signs: Temp Pulse Resp BP Pulse Ox 97.5 F 84 16 96/65 L 90 L 06/12/20 23:31 06/13/20 08:20 06/13/20 08:20 06/13/20 02:46 06/13/20 08:20 Intake & Output 06/12/20 06/13/20 06/14/20 06:59 06:59 06:59 Intake Total 445 313 Output Total 1010 275 Balance -565 38 Weight 55.3 kg Vitals during dialysis: Blood pressure 95/68, heart rate of 80, blood flow rate of 250 mL/min and dialysate flow rate of 600 mL/min. Exam: General appearance: PRESENT: no acute distress, cooperative, well-developed, well-nourished Head exam: PRESENT: atraumatic, normocephalic Eye exam: PRESENT: conjunctiva pink, PERRLA. ABSENT: scleral icterus Neck exam: ABSENT: JVD Respiratory exam: PRESENT: Diminished breath sounds in the right mid to lower lung [place]. Chest tube in place the right chest. ABSENT: crackles, rales, rhonchi, unlabored, wheezes Cardiovascular exam: PRESENT: Regular rate rhythm -+S1, +S2. Positive mitral valve click ABSENT: diastolic murmur, systolic murmur GI/Abdominal exam: PRESENT: normal bowel sounds, soft. ABSENT: guarding, mass, tenderness Extremities exam: Grade 1 bilateral lower extremity pitting edema Neurological exam: PRESENT: alert, awake, oriented to person, place and time. Skin exam: PRESENT: dry, warm, Cardiovascular exam: PRESENT: +S1, +S2 GI/Abdominal exam: PRESENT: ascites, distended, normal bowel sounds, soft. ABSENT: firm, guarding, organomegaly Results Laboratory Results: 06/13/20 07:00 06/13/20 07:00 06/12/20 06/12/20 06/12/20 05:06 11:22 11:22 WBC 7.6 RBC 5.49 Hgb 15.8 Hct 48.4 MCV 88 MCH 28.7 MCHC 32.6 RDW 20.1 H Plt Count 218 Seg Neutrophils % 85.4 H Sodium 129.0 L Potassium 4.9 Chloride 96 L Carbon Dioxide 23 Anion Gap 10 BUN 33 H Creatinine 2.28 H Est GFR ( Amer) 36 L Glucose 104 Calcium 9.7 Total Bilirubin 1.5 H AST 26 Alkaline Phosphatase 136 H Ammonia 8.8 L Total Protein 6.7 Albumin 3.4 L 06/13/20 06/13/20 06/13/20 05:00 07:00 07:00 WBC 11.1 H 11.1 H RBC 4.96 4.80 Hgb 14.2 13.8 Hct 43.7 42.4 MCV 88 88 MCH 28.6 28.8 MCHC 32.5 32.6 RDW 19.9 H 19.9 H Plt Count 232 261 Seg Neutrophils % Sodium 128.4 L Potassium 4.5 Chloride 92 L Carbon Dioxide 27 Anion Gap 9 BUN 38 H Creatinine 2.34 H Est GFR ( Amer) 35 L Glucose 94 Calcium 9.4 Total Bilirubin AST Alkaline Phosphatase Ammonia Total Protein Albumin 06/07/20 15:00 Blood Blood Culture - Final NO GROWTH IN 5 DAYS 06/07/20 15:08 Blood Blood Culture - Final NO GROWTH IN 5 DAYS 06/07/20 06/07/20 06/07/20 12:24 12:24 15:08 Creatine Kinase 34 L Troponin I 0.035 0.041 NT-Pro-B Natriuret Pep 06/07/20 06/07/20 06/08/20 16:45 22:01 05:25 Creatine Kinase 35 L 40 L 35 L Troponin I NT-Pro-B Natriuret Pep 06/08/20 05:25 Creatine Kinase Troponin I NT-Pro-B Natriuret Pep 66975 H Impressions: Head CT 06/07/20 13:02 IMPRESSION: Stable CT of the brain with bifrontal encephalomalacia. No acute intracranial event. EVIDENCE OF ACUTE STROKE: NO. Abdomen/Pelvis CT 06/07/20 13:03 IMPRESSION: There is a large amount of ascites. 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 No other significant finding. Thoracentesis Ultrasound 06/08/20 00:00 IMPRESSION: SUCCESSFUL THORACENTESIS AND CHEST TUBE PLACEMENT USING ULTRASOUND GUIDANCE. Chest CT 06/09/20 00:00 IMPRESSION: 1. RIGHT-SIDED PIGTAIL PLEURAL CATHETER WITH INTERVAL DECREASE IN THE PLEURAL EFFUSION. THERE IS NOW A MILD TO MODERATE RIGHT PNEUMOTHORAX. THE CATHETER WILL BE READJUSTED. 2. MODERATE LEFT PLEURAL EFFUSION, UNCHANGED. DIFFUSE AIRSPACE DISEASE U NCHANGED. Chest X-Ray 06/12/20 00:00 IMPRESSION: New small pneumothorax right lateral. Chest tube in the right pleural space with small effusion and basilar opacities. Increasing left basilar opacities and effusion. Assessment & Plan - Diagnosis (1) Pleural effusion Is this a current diagnosis for this admission?: Yes Plan: Status post thoracentesis, 715 with initial chest tube placement. Plan is for repositioning of the chest tube today by surgery. (2) CHF (congestive heart failure) Qualifiers: Heart failure chronicity: chronic Is this a current diagnosis for this admission?: Yes Plan: EF of 25 to 30% with moderately reduced right ventricular systolic function. Patient has cardiomyopathy. Cardiology on board. Recommendation includes placement of implantable defibrillator but uncertain if the patient can tolerate the procedure. (3) ESRD (end stage renal disease) on dialysis Is this a current diagnosis for this admission?: Yes Plan: Patient's urine output is significantly dropped during dialysis admission with urine output only between 150 to 390 mL despite Lasix. With evidence of fluid overload including pleural effusion, ascites, CHF and edema patient was reiniti ated to renal replacement therapy which he most likely will stay on. I informed the patient about this and he seems to be understanding and agreeable with it. We will do dialysis today for 2.5 hours, using the patient's PermCath, with 2 potassium bath, blood flow rate of 250 mL per minute, dialysate flow rate of 600 mL per minute, ultrafiltration only as tolerated as the patient is currently hyp otensive, no heparin and no Procrit. Patient is being closely monitored throughout dialysis treatment especially with hypotension. (4) Ventricular tachyarrhythmia Is this a current diagnosis for this admission?: Yes Plan: Per cardiology. (5) Hypotension Qualifiers: Hypotension type: idiopathic hypotension Qualified Code(s): I95.0 - Idiopathic hypotension Is this a current diagnosis for this admission?: Yes Plan: Likely secondary to poor cardiac function and cardiomyopathy. Currently on midodrine. Adrenal insufficiency has been previously ruled out during previous admission. (6) Atrial fibrillation Is this a current diagnosis for this admission?: Yes (7) Hyponatremia Is this a current diagnosis for this admission?: Yes Plan: Chronic and stable. Secondary to hypervolemic state with CHF in ESRD. (8) Ascites Is this a current diagnosis for this admission?: Yes (9) Pneumothorax, iatrogenic Is this a current diagnosis for this admission?: Yes Plan: Post chest tube placement. (10) H/O mitral valve replacement with mechanical valve Is this a current diagnosis for this admission?: Yes Plan: Currently on heparin drip. - Time Time with patient: 15-25 minutes
[2020-06-14 00:55] LABS: APPEARANCE,URINE CLEAR; BILIRUBIN,URINE NEGATIVE (NEGATIVE); COLOR,URINE AMBER; GLUCOSE, URINE NEGATIVE (NEGATIVE); KETONES,URINE NEGATIVE (NEGATIVE); LEUKOCYTE ESTERASE,URINE NEGATIVE (NEGATIVE); NITRITE,URINE NEGATIVE (NEGATIVE); PROTEIN,URINE NEGATIVE (NEGATIVE); URINE SPECIFIC GRAVITY 1.016; UROBILINOGEN,URINE NEGATIVE mg/dL (<2.0)
[2020-06-14] MEDS: IPRATROPIUM/ALBUTEROL 0.5-2.5 MG/3 ML AMPUL NEB SCH ×4 (02:03→20:08)
[2020-06-14] MEDS: PANTOPRAZOLE SODIUM 40 MG TABLET.DR PO SCH ×2 (05:25→17:32)
[2020-06-14 06:50] LABS: HEMATOCRIT 42.9 % (37.9-51.0); HEMOGLOBIN 14.1 g/dL (13.5-17.0); MEAN CORPUSCULAR HEMOGLOBIN 28.9 pg (27.0-33.4); MEAN CORPUSCULAR HGB CONC 32.9 g/dL (32.0-36.0); MEAN CORPUSCULAR VOLUME 88 fl (80-97); PLATELET COUNT 217 10^3/uL (150-450); RED BLOOD COUNT 4.89 10^6/uL (4.35-5.55); RED CELL DISTRIBUTION WIDTH 19.7 % (11.5-14.0); WHITE BLOOD COUNT 11.6 10^3/uL (4.0-10.5)
[2020-06-14 07:12] LABS: ALKALINE PHOSPHATASE 132 U/L (38-126); ANION GAP 10 (5-19); ASPARTATE AMINO TRANSFERASE 21 U/L (17-59); BILIRUBIN,DIRECT 0.6 mg/dL (0.0-0.4); BILIRUBIN,TOTAL 1.8 mg/dL (0.2-1.3); BLOOD UREA NITROGEN 28 mg/dL (7-20); CALCIUM 9.2 mg/dL (8.4-10.2); CARBON DIOXIDE 27 mmol/L (22-30); CHLORIDE 94 mmol/L (98-107); GLUCOSE 110 mg/dL (75-110); POTASSIUM 4.8 mmol/L (3.6-5.0); TOTAL PROTEIN 6.4 g/dL (6.3-8.2)
[2020-06-14 07:14] LABS: ABSOLUTE LYMPHOCYTES# (MANUAL) 0.3 10^3/uL (0.5-4.7); ABSOLUTE MONOCYTES # (MANUAL) 0.6 10^3/uL (0.1-1.4); BAND NEUTROPHILS % (MANUAL) 1 % (3-5); BASOPHILS % (MANUAL) 0 % (0-2); EOSINOPHILS % (MANUAL) 1 % (0-6); LYMPHOCYTES % (MANUAL) 2 % (13-45); MONOCYTES % (MANUAL) 5 % (3-13); SEGMENTED NEUTROPHILS % (MAN) 90 % (42-78); TOTAL CELLS COUNTED 100
[2020-06-14 07:15] LABS: ANISOCYTOSIS 2+; OVALOCYTES SLIGHT; PLATELET CLUMPS PRESENT; POIKILOCYTOSIS SLIGHT; TARGET CELLS SLIGHT
[2020-06-14 07:16] LABS: PLATELET COMMENT ADEQUATE
[2020-06-14] MEDS: HEPARIN SOD (PORCINE) 1,000 UNIT/ML 10 ML VIAL IV PRN ×2 (07:35→14:40)
[2020-06-14] MEDS: METOPROLOL TARTRATE 50 MG TABLET PO SCH ×2 (09:21→21:49)
[2020-06-14] MEDS: FUROSEMIDE INJ/PF 20 MG/2 ML SDV IV SCH ×2 (09:21→21:51)
[2020-06-14] MEDS: MIDODRINE HCL 5 MG TABLET PO SCH ×3 (09:21→17:32)
[2020-06-14] MEDS: SPIRONOLACTONE 25 MG TABLET PO SCH (09:21)
[2020-06-14] MEDS: FLUTICASONE NASAL SPRAY 50 MCG/SPRY 120 SPRAY/16 GM NASL SCH (09:22)
--- NOTE | 2020-06-14 10:49 | RADIOLOGY REPORT (SQ) ---
EXAM DESCRIPTION: CHEST 2 VIEWS IMAGES COMPLETED DATE/TIME: 06/14/2020 10:40 am REASON FOR STUDY: ptx, effusion COMPARISON: 06/13/2020. EXAM PARAMETERS: NUMBER OF VIEWS: two views TECHNIQUE: Digital Frontal and Lateral radiographic views of the chest acquired. RADIATION DOSE: NA LIMITATIONS: none FINDINGS: LUNGS AND PLEURA: Stable right chest tube. No pneumothorax. Scattered parenchymal densit ies and small bilateral pleural effusions unchanged. MEDIASTINUM AND HILAR STRUCTURES: No masses or contour abnormalities. HEART AND VASCULAR STRUCTURES: Heart normal size. No evidence for failure. BONES: No acute findings. HARDWARE: Right chest tube, multi lumen catheter, and cardiac hardware. OTHER: No other significant finding. IMPRESSION: STABLE APPEARANCE. NO PNEUMOTHORAX. NO SIGNIFICANT CHANGE. TECHNICAL DOCUMENTATION: JOB ID: [id number] 2010 [employer]- All Rights Reserved Reading location - IP/workstation name: [email or web address]
--- NOTE | 2020-06-14 12:50 | PDOC PROGRESS REPORT ---
Subjective Progress Note for:: 06/14/20 Subjective:: 59y/o male known to me from prior admissions who had been followed by Dr. Shields since admission after resuscitated out of hospital cardiac arrest. The chart was reviewed by me. Please see Dr. Shields's notes for full details. In summary, he was found unresponsive by EMS secondary to VT, he was successfully resuscitated and admitted to our facility. He eventually underwent placement of 2 chest tubes. This morning he is resting comfortably eating breakfast and "I feel great". He denies CP, SOB, PND, orthopnea, palpitations, syncope and presyncope. His telemetry shows a ventricularly paced rhythm without recurrence of VT or any other significant ventricular dysrhythmias. He continues to be off of pressors. Physical exam on 06/14/20: General: cachectic, looks pale and chronically ill, older than stated age. Chest tube in place. Neck: no JVD. Heart: RRR, no murmurs or rubs. Lungs: CTA bilaterally. LE: no edema or cyanosis. Reason For Visit: V TACHYCARDIA Physical Exam Vital Signs: Temp Pulse Resp BP Pulse Ox 97.2 F 78 15 106/90 H 96 06/14/20 07:35 06/14/20 11:16 06/14/20 11:16 06/14/20 11:16 06/14/20 11:16 Intake & Output 06/13/20 06/14/20 06/15/20 06:59 06:59 06:59 Intake Total 313 1449 114 Output Total 275 1310 Balance 38 139 114 Weight 53.2 kg Results Laboratory Results: 06/14/20 06:28 06/14/20 06:28 06/14/20 06/14/20 06/14/20 00:40 06:28 06:28 WBC 11.6 H RBC 4.89 Hgb 14.1 Hct 42.9 MCV 88 MCH 28.9 MCHC 32.9 RDW 19.7 H Plt Count 217 Seg Neutrophils % Not Reportable Sodium 131.2 L Potassium 4.8 Chloride 94 L Carbon Dioxide 27 Anion Gap 10 BUN 28 H Creatinine 1.95 H Est GFR ( Amer) 43 L Glucose 110 Calcium 9.2 Magnesium 2.2 Total Bilirubin 1.8 H AST 21 Alkaline Phosphatase 132 H Total Protein 6.4 Albumin 3.0 L Urine Color AIDE Urine Appearance CLEAR Urine pH 5.0 Ur Specific [place] 1.016 Urine Protein NEGATIVE Urine Glucose (UA) NEGATIVE Urine Ketones NEGATIVE Urine Blood NEGATIVE Urine Nitrite NEGATIVE Ur Leukocyte Esterase NEGATIVE Urine WBC (Auto) 1 Urine RBC (Auto) 1 06/07/20 06/07/20 06/07/20 12:24 12:24 15:08 Creatine Kinase 34 L Troponin I 0.035 0.041 NT-Pro-B Natriuret Pep 06/07/20 06/07/20 06/08/20 16:45 22:01 05:25 Creatine Kinase 35 L 40 L 35 L Troponin I NT-Pro-B Natriuret Pep 06/08/20 05:25 Creatine Kinase Troponin I NT-Pro-B Natriuret Pep [id number] H Impressions: Head CT 06/07/20 13:02 IMPRESSION: Stable CT of the brain with bifrontal encephalomalacia. No acute intracranial event. EVIDENCE OF ACUTE STROKE: NO. Abdomen/Pelvis CT 06/07/20 13:03 IMPRESSION: There is a large amount of ascites. 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 No other significant finding. Thoracentesis Ultrasound 06/08/20 00:00 IMPRESSION: SUCCESSFUL THORACENTESIS AND CHEST TUBE PLACEMENT USING ULTRASOUND GUIDANCE. Chest CT 06/09/20 00:00 IMPRESSION: 1. RIGHT-SIDED PIGTAIL PLEURAL CATHETER WITH INTERVAL DECREASE IN THE PLEURAL EFFUSION. THERE IS NOW A MILD TO MODERATE RIGHT PNEUMOTHORAX. THE CATHETER WILL BE READJUSTED. 2. MODERATE LEFT PLEURAL EFFUSION, UNCHANGED. DIFFUSE AIRSPACE DISEASE UNCHANGED. Chest X-Ray 06/14/20 06:00 IMPRESSION: STABLE APPEARANCE. NO PNEUMOTHORAX. NO SIGNIFICANT CHANGE. 06/14/20 06:28 06/14/20 06:28 MCV 88 fl (80-97) 06/14/20 06:28 MCH 28.9 pg (27.0-33.4) 06/14/20 06:28 MCHC 32.9 g/dL (32.0-36.0) 06/14/20 06:28 RDW 19.7 % (11.5-14.0) H 06/14/20 06:28 Seg Neutrophils % Not Reportable 06/14/20 06:28 Chloride 94 mmol/L (98-107) L 06/14/20 06:28 Carbon Dioxide 27 mmol/L (22-30) 06/14/20 06:28 Anion Gap 10 (5-19) 06/14/20 06:28 Est GFR ( Amer) 43 (>60) L 06/14/20 06:28 Est GFR (Non-Af Amer) Cancelled 06/09/20 07:57 Glucose 110 mg/dL (75-110) 06/14/20 06:28 Lactic Acid 2.3 mmol/L (0.7-2.1) H 06/07/20 15:08 Calcium 9.2 mg/dL (8.4-10.2) 06/14/20 06:28 Magnesium 2.2 mg/dL (1.6-2.3) 06/14/20 06:28 Total Bilirubin 1.8 mg/dL (0.2-1.3) H 06/14/20 06:28 AST 21 U/L (17-59) 06/14/20 06:28 Alkaline Phosphatase 132 U/L (38-126) H 06/14/20 06:28 Ammonia 8.8 umol/L (9-33) L 06/12/20 11:22 Total Protein 6.4 g/dL (6.3-8.2) 06/14/20 06:28 Albumin 3.0 g/dL (3.5-5.0) L 06/14/20 06:28 Triglycerides 57 mg/dL (<150) 06/08/20 05:25 Cholesterol 147.93 mg/dL (0-200) 06/08/20 05:25 LDL Cholesterol Direct 91 mg/dL (<100) 06/08/20 05:25 VLDL Cholesterol 11.0 mg/dL (10-31) 06/08/20 05:25 HDL Cholesterol 40 mg/dL (>40) 06/08/20 05:25 Lipase 32.3 U/L (23-300) 06/07/20 12:24 TSH 9.43 uIU/mL (0.47-4.68) H 06/08/20 05:25 Urine Color AIDE 06/14/20 00:40 Urine Appearance CLEAR 06/14/20 00:40 Urine pH 5.0 (5.0-9.0) 06/14/20 00:40 Ur Specific [place] 1.016 06/14/20 00:40 Urine Protein NEGATIVE mg/dL (NEGATIVE) 07/21/20 00:40 Urine Glucose (UA) NEGATIVE mg/dL (NEGATIVE) 06/14/20 00:40 Urine Ketones NEGATIVE mg/dL (NEGATIVE) 06/14/20 00:40 Urine Blood NEGATIVE (NEGATIVE) 06/14/20 00:40 Urine Nitrite NEGATIVE (NEGATIVE) 06/14/20 00:40 Ur Leukocyte Esterase NEGATIVE (NEGATIVE) 06/14/20 00:40 Urine WBC (Auto) 1 /HPF 06/14/20 00:40 Urine RBC (Auto) 1 /HPF 06/14/20 00:40 06/07/20 06/07/20 06/07/20 12:24 12:24 15:08 Creatine Kinase 34 L Troponin I 0.035 0.041 NT-Pro-B Natriuret Pep 06/07/20 06/07/20 06/08/20 16:45 22:01 05:25 Creatine Kinase 35 L 40 L 35 L Troponin I NT-Pro-B Natriuret Pep 06/08/20 05:25 Creatine Kinase Troponin I NT-Pro-B Natriuret Pep [id number] H Current Medication List Generic Name Dose Route Start Last Admin Trade Name Freq PRN Reason Stop Dose Admin Acetaminophen 650 mg 06/07/20 15:53 06/12/20 22:23 Tylenol 325 Mg Tablet PO 07/07/20 15:52 650 mg Q4HP PRN Administration FEVER >101 Albuterol/Ipratropium 3 ml 06/07/20 20:00 06/14/20 08:00 Duoneb 3 Ml Ampul NEB 07/07/20 19:59 3 ml RTQ6 ANTONELLA Administration Fluticasone Propionate 2 spray 06/08/20 10:00 06/14/20 09:22 Flonase Nasal [place] 50 Mcg/[place] 16 Gm NASL 07/08/20 09:59 Not Given DAILY ANTONELLA Furosemide 20 mg 06/10/20 14:00 06/14/20 09:21 Lasix Inj/Pf 20 Mg/2 Ml Sdv IV 07/10/20 13:59 20 mg Q12 ANTONELLA Administration Heparin Sodium (Porcine) 0 - 12,000 unit 06/07/20 22:00 06/14/20 07:35 Heparin Inj 1,000 Unit/Ml 10 Ml Vial IV 07/07/20 21:59 1,700 units .BOLUS PER PROTOCOL PRN Administration RESPOND TO aPTT VALUES Protocol Heparin Sodium/Dextrose 25,000 unit in 250 mls @ 0 mls/hr 06/07/20 22:00 06/14/20 07:36 Heparin Rtu 25,000 Unit/250 Ml D5w Premix IV 07/07/20 21:59 9.04 mls/hr CONTINUOUS PRN 9.04 mls/hr THIS MED IS NOT "PRN" Titration Protocol Titrate Metoprolol Tartrate 50 mg 06/07/20 22:00 06/14/20 09:21 Lopressor 50 Mg Tablet PO 07/07/20 21:59 50 mg Q12 ANTONELLA Administration Midodrine 10 mg 06/08/20 10:00 06/14/20 09:21 Proamatine 5 Mg Tablet PO 07/08/20 09:59 10 mg TID ANTONELLA Administration Morphine Sulfate 2 mg 06/13/20 14:04 Morphine 10 Mg/Ml Inj IV 06/20/20 14:03 Q2HP PRN FOR BREAKTHROUGH PAIN Ondansetron HCl 4 mg 06/07/20 15:53 06/12/20 04:30 Zofran Inj/Pf 4 Mg/2 Ml Sdv IV 07/07/20 15:52 4 mg Q8HP PRN Administration FOR NAUSEA/VOMITING Pantoprazole Sodium 40 mg 06/08/20 06:00 06/14/20 05:[address] Tablet PO 07/08/20 05:59 40 mg BID@0600,1700 ANTONELLA Administration Sodium Chloride 2.5 ml 06/07/20 22:00 06/14/20 05:25 Saline Flush 2.5 Ml Monoject Prefil Syrin IV 07/07/20 21:59 2.5 ml Q8 ANTONELLA Administration Spironolactone 25 mg 06/10/20 14:00 06/14/20 09:21 Aldactone 25 Mg Tablet PO 07/10/20 13:59 25 mg DAILY ANTONELLA Administration Discontinued Medications Generic Name Dose Route Start Last Admin Trade Name Freq PRN Reason Stop Dose Admin Bumetanide 0.5 mg 06/08/20 10:00 06/08/20 11:12 Bumex 1 Mg Tablet PO 07/08/20 09:59 0.5 mg DAILY ANTONELLA Administration Fentanyl Citrate Confirm 06/13/20 12:36 Sublimaze Inj/Pf 100 Mcg/2 Ml Ampule Administered 06/13/20 12:37 Dose 100 mcg .ROUTE .STK-MED ONE Heparin Sodium (Porcine) 3,600 unit 06/10/20 05:00 06/10/20 11:56 Heparin Inj 1,000 Unit/Ml 10 Ml Vial IV 06/10/20 23:59 3,600 units .SPLIT B/N CATHETERS PRN Administration THIS MED IS NOT "PRN" Heparin Sodium (Porcine) 3,600 unit 06/13/20 07:38 Heparin Inj 1,000 Unit/Ml 10 Ml Vial IV 06/13/20 23:59 .SPLIT B/N CATHETERS PRN THIS MED IS NOT "PRN" Sodium Chloride 1,000 mls @ 0 mls/hr 06/08/20 16:45 06/08/20 19:49 Nacl 0.9% 1000 Ml Iv Soln IV 06/08/20 16:46 Not Given BOLUS ONE Wide Open Dopamine HCl/Dextrose 800 mg in 250 mls @ 3.178 mls/hr 06/08/20 17:35 06/11/20 10:45 Dopamine Rtu 800 Mg-D5w 250 Ml (Adult) Premix IV 07/08/20 17:34 Infused CONTINUOUS PRN Infusion THIS MED IS NOT "PRN" 3 MCG/KG/MIN [place] 4 gm/ Sodium Chloride 50 mls @ 0 mls/hr 06/13/20 10:04 IPL 06/13/20 23:59 .PROCEDURE PRN THIS MED IS NOT "PRN" As Directed Ketorolac Tromethamine Confirm 06/09/20 07:03 06/09/20 07:55 Toradol Inj/Pf 30 Mg/1 Ml Sdv Administered 06/09/20 07:04 Not Given Dose 30 mg .ROUTE .STK-MED ONE Ketorolac Tromethamine 15 mg 06/09/20 08:00 06/09/20 07:59 Toradol Inj/Pf 30 Mg/1 Ml Sdv IV 06/09/20 08:01 15 mg NOW ONE Administration Lidocaine HCl Confirm 06/13/20 12:39 Xylocaine 2% Inj (20 Mg/Ml) 20ml Mdv Administered 06/13/20 12:40 Dose 20 ml .ROUTE .STK-MED ONE Midazolam HCl Confirm 06/13/20 12:35 Versed 2 Mg/2 Ml Inj Administered 06/13/20 12:36 Dose 2 mg .ROUTE .STK-MED ONE Midazolam HCl Confirm 06/13/20 16:11 Versed 2 Mg/2 Ml Inj Administered 06/13/20 16:12 Dose 2 mg .ROUTE .STK-MED ONE Morphine Sulfate 1 mg 06/10/20 14:44 06/12/20 04:39 Morphine 10 Mg/Ml Inj IV 06/17/20 14:43 1 mg Q6HP PRN Administration PAIN Morphine Sulfate Confirm 06/10/20 14:44 06/10/20 15:32 Morphine 10 Mg/Ml Inj Administered 06/10/20 14:45 Not Given Dose 10 mg .ROUTE .STK-MED ONE Morphine Sulfate Confirm 06/13/20 12:36 Morphine 10 Mg/Ml Inj Administered 06/13/20 12:37 Dose 10 mg .ROUTE .STK-MED ONE Spironolactone 25 mg 06/09/20 10:00 Aldactone 25 Mg Tablet PO 07/09/20 09:59 DAILY ANTONELLA Assessment & Plan - Diagnosis (1) Atrial fibrillation Is this a current diagnosis for this admission?: Yes Plan: The patient continues to maintain a regular rhythm and asymptomatic. Recommendations: -May transition to PO warfarin if no further surgical procedures planned. -Continue with BB at current doses. -Continue with telemetry. (2) CHF (congestive heart failure) Qualifiers: Heart failure chronicity: chronic Is this a current diagnosis for this admission?: Yes Plan: He appears well compensated and asymptomatic even after dopamine was discontinu ed. He is now followed by neprhology and dialyzed. At this point, the patient is not a candidate for any invasive cardiovascular interventions given his overall condition and poor prognosis. Recommendations: -Continue with current management. -Fluid management per nephrology team. (3) Ventricular tachyarrhythmia Is this a current diagnosis for this admission?: Yes Plan: Hypoxia and respiratory distress appear to have preceded the episode which was likely VT. He has remained asymptomatic and without recurrence of the dysrhyth evgeny since admission. 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 I agree with prior recommendations by Dr. Shields as follows: -Reluctant to use anti-arrhythmic especially Amiodarone given poor lung and hepatic status. -Not a candidate for ICD at this point given his poor functional status, poor muscle mass and likely limited life expectancy given multiple medical problems and evidence of multiple organ dysfunction. -A suitable but not ideal option would to pursue a wearable defibrillator until: 1. Functional status improves 2. He becomes better nourished with improved muscle mass-lack of healing and susceptibility to infection affter ICD implant being concerns -SICD is a bulky device and risks device erosion. 3. Chest tube is removed 4. [place] scenario would require permanent HD access on right chest wall so we can use left sided access for transvenous ICD 5. There is improvement in liver function and overall health (4) CKD (chronic kidney disease) requiring chronic dialysis Is this a current diagnosis for this admission?: Yes Plan: He is now followed by nephrology.
[2020-06-14] MEDS: HEPARIN SODIUM,PORCINE/D5W 25,000 UNIT/250 ML RTUINJ IV PRN (13:09)
--- NOTE | 2020-06-14 14:41 | PDOC PROGRESS REPORT ---
Subjective Progress Note for:: 06/14/20 Subjective:: Feels a lot more comfortable after placement of new chest tube by Dr. Phelps yesterday. Reason For Visit: V TACHYCARDIA Physical Exam Vital Signs: Temp Pulse Resp BP Pulse Ox 97.2 F 81 15 106/90 H 94 06/14/20 07:35 06/14/20 14:24 06/14/20 14:24 06/14/20 11:16 06/14/20 14:24 Intake & Output 06/13/20 06/14/20 06/15/20 06:59 06:59 06:59 Intake Total 313 1449 164 Output Total 275 1310 Balance 38 139 164 Weight 53.2 kg Exam: Chest x-ray showed very small right pneumothorax post chest tube placement. Still draining about 565 cc of clear pleural fluid on the Pleur-evac. Results Laboratory Results: 06/14/20 06:28 06/14/20 06:28 06/14/20 06/14/20 06/14/20 00:40 06:28 06:28 WBC 11.6 H RBC 4.89 Hgb 14.1 Hct 42.9 MCV 88 MCH 28.9 MCHC 32.9 RDW 19.7 H Plt Count 217 Seg Neutrophils % Not Reportable Sodium 131.2 L Potassium 4.8 Chloride 94 L Carbon Dioxide 27 Anion Gap 10 BUN 28 H Creatinine 1.95 H Est GFR ( Amer) 43 L Glucose 110 Calcium 9.2 Magnesium 2.2 Total Bilirubin 1.8 H AST 21 Alkaline Phosphatase 132 H Total Protein 6.4 Albumin 3.0 L Urine Color AIDE Urine Appearance CLEAR Urine pH 5.0 Ur Specific [place] 1.016 Urine Protein NEGATIVE Urine Glucose (UA) NEGATIVE Urine Ketones NEGATIVE Urine Blood NEGATIVE Urine Nitrite NEGATIVE Ur Leukocyte Esterase NEGATIVE Urine WBC (Auto) 1 Urine RBC (Auto) 1 06/07/20 06/07/20 06/07/20 12:24 12:24 15:08 Creatine Kinase 34 L Troponin I 0.035 0.041 NT-Pro-B Natriuret Pep 06/07/20 06/07/20 06/08/20 16:45 22:01 05:25 Creatine Kinase 35 L 40 L 35 L Troponin I NT-Pro-B Natriuret Pep 06/08/20 05:25 Creatine Kinase Troponin I NT-Pro-B Natriuret Pep [id number] H Impressions: Head CT 06/07/20 13:02 IMPRESSION: Stable CT of the brain with bifrontal encephalomalacia. No acute intracranial event. EVIDENCE OF ACUTE STROKE: NO. Abdomen/Pelvis CT 06/07/20 13:03 IMPRESSION: There is a large amount of ascites. 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 No other significant finding. Thoracentesis Ultrasound 06/08/20 00:00 IMPRESSION: SUCCESSFUL THORACENTESIS AND CHEST TUBE PLACEMENT USING ULTRASOUND GUIDANCE. Chest CT 06/09/20 00:00 IMPRESSION: 1. RIGHT-SIDED PIGTAIL PLEURAL CATHETER WITH INTERVAL DECREASE IN THE PLEURAL EFFUSION. THERE IS NOW A MILD TO MODERATE RIGHT PNEUMOTHORAX. THE CATHETER WILL BE READJUSTED. 2. MODERATE LEFT PLEURAL EFFUSION, UNCHANGED. DIFFUSE AIRSPACE DISEASE [facility] HANGED. Chest X-Ray 06/14/20 06:00 IMPRESSION: STABLE APPEARANCE. NO PNEUMOTHORAX. NO SIGNIFICANT CHANGE. Assessment & Plan - Time Critical Time spent with patient: 15-24 minutes - Plan Summary Plan Summary: 59-year-old male with history of IR placement meant of right chest tube for pleural effusion with subsequent pneumothorax. Yesterday the old chest tube was removed and a new 28 [place] anterior chest tube was placed by Dr. Phelps. Chest drainage still about 565cc from last night. Talcum powder was injected through the chest tube by Dr. Phelps on placement of the chest tube yesterday. Expect drainage from the right chest tube to decrease. Meantime continue with chest tube on suction.
--- NOTE | 2020-06-14 17:16 | PDOC PROGRESS REPORT ---
Subjective Subjective:: Per previous physician: "59 year old male with a history of congestive heart failure, pacemaker short- term dialysis still has a dialysis catheter, hypertension, atrial fibrillation on warfarin came in with complaints of shortness of breath and difficulty in ambulation. Patient's nephew called the EMS because of the patient's poor living condition EMS found that heart rate is more than 100 thinking it was a V. tach give him a shock. By the time patient arrival at the ER he is in sinus rhythm heart rate is in the 80s. Initial lactic acid level is one-point 0 repeat lactic acid is 2.1. Patient denies any fevers denies any chills denies any headaches dizzy spells nausea vomiting diarrhea. His main complaint is shortness of breath and difficulty in ambulation at home. Consulted with Dr. Cornelius Root was requested by the ER. 06/08/2020-patient is on heparin drip at this time Coumadin is on hold. CT scan shows large right-sided pleural effusion going for thoracentesis today. Comfortably in the bed not in distress. 06/09/2020-patient is comfortable in the bed communicating well. He agreed to go to a long-term care facility. Patient is going for dialysis tomorrow. Cardiology consult was done. He has a previous admission at [facility] according to the records cardiac cath is normal. EF at that time of mitral valve replacement EF is 55%. Echocardiogram here with EF of 25%. Patient's overall prognosis is poor. It is because of heart failure, renal failure, COPD, liver failure. 06/10/2020-patient is going to the ICU for dialysis because he is on a dopamine drip. Surgical consult was requested for management of the chest tube. Patient is comfortably in the bed communicating well not in distress. Once he finishes his dialysis unit in ICU he will be back to fifth floor. 06/11/2020-patient is comfortable in the bed communicating well. Denies any problems. Physical therapy is working with the patient. He completed dialysis successfully yesterday. Chest tube management as per surgical team. 06/12/2020-patient is comfortably in the chair communicating well. Patient has a chest tube in the right side continues to leak nurses using maxi pad. Dr. Henry is notified." 06/14/2020 Patient states he has no new complaints today other than being a bit tired. WBC is a bit higher. Creatinine is lower and he is currently receiving dialysis from nephrology here. Likely he will need to continue dialysis permanently his urine output is not recovering and since yesterday he is only had 145 mL out. Blood culture negative. Chest x-ray showed right-sided chest tube. Patient has chronic A. fib currently continued on heparin drip. Bilirubin and sodium are higher now. Reason For Visit: V TACHYCARDIA Physical Exam Vital Signs: Temp Pulse Resp BP Pulse Ox 97.2 F 81 15 106/90 H 94 06/14/20 07:35 06/14/20 14:24 06/14/20 14:24 06/14/20 11:16 06/14/20 14:24 Intake & Output 06/13/20 06/14/20 06/15/20 06:59 06:59 06:59 Intake Total 313 1449 178 Output Total 275 1310 Balance 38 139 178 Weight 53.2 kg General appearance: PRESENT: no acute distress, well-developed, well-nourished Head exam: PRESENT: atraumatic, normocephalic Eye exam: PRESENT: conjunctiva pink Respiratory exam: PRESENT: crackles - Consistent with right chest tube, other - Right chest tube in good position, with serosanguineous fluid draining out into collection device. ABSENT: rales, rhonchi, wheezes Cardiovascular exam: PRESENT: RRR. ABSENT: diastolic murmur, rubs, systolic murmur GI/Abdominal exam: PRESENT: normal bowel sounds, soft. ABSENT: distended, guarding, mass, organolmegaly, rebound, tenderness Neurological exam: PRESENT: alert, awake, oriented to person, oriented to place. ABSENT: oriented to time, oriented to situation Psychiatric exam: PRESENT: appropriate affect, normal mood Skin exam: PRESENT: dry, intact, warm Results Laboratory Results: 06/14/20 06:28 06/14/20 06:28 06/14/20 06/14/20 06/14/20 00:40 06:28 06:28 WBC 11.6 H RBC 4.89 Hgb 14.1 Hct 42.9 MCV 88 MCH 28.9 MCHC 32.9 RDW 19.7 H Plt Count 217 Seg Neutrophils % Not Reportable Sodium 131.2 L Potassium 4.8 Chloride 94 L Carbon Dioxide 27 Anion Gap 10 BUN 28 H Creatinine 1.95 H Est GFR ( Amer) 43 L Glucose 110 Calcium 9.2 Magnesium 2.2 Total Bilirubin 1.8 H AST 21 Alkaline Phosphatase 132 H Total Protein 6.4 Albumin 3.0 L Urine Color AIDE Urine Appearance CLEAR Urine pH 5.0 Ur Specific [place] 1.016 Urine Protein NEGATIVE Urine Glucose (UA) NEGATIVE Urine Ketones NEGATIVE Urine Blood NEGATIVE Urine Nitrite NEGATIVE Ur Leukocyte Esterase NEGATIVE Urine WBC (Auto) 1 Urine RBC (Auto) 1 06/07/20 06/07/20 06/07/20 12:24 12:24 15:08 Creatine Kinase 34 L Troponin I 0.035 0.041 NT-Pro-B Natriuret Pep 06/07/20 06/07/20 06/08/20 16:45 22:01 05:25 Creatine Kinase 35 L 40 L 35 L Troponin I NT-Pro-B Natriuret Pep 06/08/20 05:25 Creatine Kinase Troponin I NT-Pro-B Natriuret Pep [id number] H Impressions: Head CT 06/07/20 13:02 IMPRESSION: Stable CT of the brain with bifrontal encephalomalacia. No acute intracranial event. EVIDENCE OF ACUTE STROKE: NO. Abdomen/Pelvis CT 06/07/20 13:03 IMPRESSION: There is a large amount of ascites. 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 No other significant finding. Thoracentesis Ultrasound 06/08/20 00:00 IMPRESSION: SUCCESSFUL THORACENTESIS AND CHEST TUBE PLACEMENT USING ULTRASOUND GUIDANCE. Chest CT 06/09/20 00:00 IMPRESSION: 1. RIGHT-SIDED PIGTAIL PLEURAL CATHETER WITH INTERVAL DECREASE IN THE PLEURAL EFFUSION. THERE IS NOW A MILD TO MODERATE RIGHT PNEUMOTHORAX. THE CATHETER WILL BE READJUSTED. 2. MODERATE LEFT PLEURAL EFFUSION, UNCHANGED. DIFFUSE AIRSPACE DISEASE UNCHANGED. Chest X-Ray 06/14/20 06:00 IMPRESSION: STABLE APPEARANCE. NO PNEUMOTHORAX. NO SIGNIFICANT CHANGE. Assessment and Plan - Diagnosis (1) Pneumothorax, iatrogenic Is this a current diagnosis for this admission?: Yes Plan: Occurred during thoracentesis Right chest tube placed, gradual improvement General surgery to determine timing of chest tube removal (2) Ventricular tachyarrhythmia Is this a current diagnosis for this admission?: Yes Plan: Per previous physician: "06/07/2020-patient is going to be admitted to [facility] as an inpatient because of questionable V. tach status post shock by the EMS. Cardiology consult was requested serial troponins will be requested. He is a full code. Consultation with Dr. Shieldsanil requested. Echocardiogram is requested. 06/08/2020-heart rate today is 94. In sinus rhythm. Recently on heparin drip. Latest troponin is 0.041. BNP is 16,800. 06/09/2020-heart rate is 81. Rate controlled A. fib. On heparin drip. 06/10/2020-heart rate in the 90s. Rate controlled A. fib. He is on heparin drip at this time. 06/12/2020-heart rate in the 80s. Rate controlled rhythm. Still on heparin drip." 06/14/2020 Heart rate controlled on heparin drip and current medications, continue regimen (3) ESRD (end stage renal disease) on dialysis Is this a current diagnosis for this admission?: Yes Plan: For previous physician: "06/07/2020-patient has history of hemodialysis for a short while still carrying the dialysis catheter on the left side of the chest. Creatinine is 1.7 potassium within normal limits. Plan is to recheck the labs tomorrow. 06/08/2020-serum creatinine today 1.86. Patient has stage III kidney disease. Serum potassium is 3.7. No need for dialysis at this time. Patient has a dialysis access present on the left side of the chest. 06/09/2020-consultation with Dr. Cornelius Godfrey was done and patient is going for dialysis tomorrow. 06/10/2020-patient is going to the dialysis in ICU today because he is on a dopamine drip. Once the dialysis session is finished in ICU he will be back to fifth floor. 06/11/2020-patient completed dialysis in the ICU because on the dopamine drip. Blood pressures are improved today plan is to discontinue dopamine drip." 06/14/2020 Nephrology following: Managing dialysis with a plan to continue for the time being as his urine output has not responded to Lasix Hypotension during dialysis improved with midodrine, continued (4) Ascites Is this a current diagnosis for this admission?: Yes Plan: Per previous physician: "06/07/2020-patient has history of chronic ascites most likely secondary to end- stage renal disease, history of alcohol abuse causing liver cirrhosis. 06/09/2020-as per the records from the [facility] patient developed shock liver during the hospital stay." 06/14/2022 Seems to be improving (5) Atrial fibrillation Is this a current diagnosis for this admission?: Yes Plan: Referring physician: "06/07/2020-patient has history of chronic longstanding atrial fibrillation. On warfarin at home. INR is 1.44 in the ER. Plan is to continue Coumadin and recheck INR tomorrow. 06/08/2020-patient has history of chronic longstanding atrial fibrillation. On warfarin at home. Warfarin is on hold presently on heparin drip. 06/09/2020-patient has a longstanding history of hypertension on Coumadin at home. At this time he is on heparin drip. 06/10/2020-heart rate in the 90s. In A. fib. On heparin drip for anticoagulation. 06/11/2020-patient is on heparin drip at this time. Plan is to continue heparin drip. Heart rate is relatively controlled." 06/14/2020 Heparin drip continues, when chest tube removed we can start bridge to Coumadin for his mechanical valve and atrial fibrillation. INR goal of approximately 3 (6) CHF (congestive heart failure) Qualifiers: Heart failure chronicity: chronic Is this a current diagnosis for this admission?: Yes Plan: Per previous physician: "06/07/2020-patient has history of congestive heart failure with cardiomegaly and bilateral pleural effusions and echocardiogram was requested. I do not have the previous echocardiogram report available. 06/08/2020-echocardiogram was done yesterday EF is around 25 to 30%. pLan is to put him on beta-blockers, CHICA inhibitor's, if needed and spironolactone. 06/09/2020-patient has chronic systolic heart failure. EF is 25 to 30%. It is presently on a dopamine drip because of hypotension, CHICA inhibitor's, spironolactone, Bumex on hold. 06/10/2020-patient has chronic systolic heart failure. EF is 25 to 30%. Because he is hypotensive on dopamine drip not on diuretics at this time. 06/11/20-patient is receiving Lasix 20 mg IV twice a day. Not in fluid overload at this time." 06/14/2020 Lasix has been ineffective, reliant on dialysis for diuresis due to severe renal failure (7) COPD (chronic obstructive pulmonary disease) Qualifiers: Is this a current diagnosis for this admission?: No (8) Protein-energy malnutrition Qualifiers: Protein-calorie malnutrition severity: mild Qualified Code(s): E44.1 - Mild protein-calorie malnutrition Is this a current diagnosis for this admission?: Yes (9) H/O mitral valve replacement with mechanical valve Is this a current diagnosis for this admission?: Yes (10) Pleural effusion Is this a current diagnosis for this admission?: Yes (11) Shortness of breath Is this a current diagnosis for this admission?: Yes - Time Time Spent with patient: 15-24 minutes Medications reviewed and adjusted accordingly: Yes Anticipated discharge: SNF Within: within 72 hours - Inpatient Certification Based on my medical assessment, after consideration of the patient's comorbidities, presenting symptoms, or acuity I expect that the services needed warrant INPATIENT care.: Yes I certify that my determination is in accordance with my understanding of Medicare's requirements for reasonable and necessary INPATIENT services [42 CFR 412.3e].: Yes Medical Necessity: Significant Comorbidiites Make Outpatient Treatment Too Ris ky, Need Close Monitoring Due to Risk of Patient Decompensation, Risk of Complication if Not Cared For in Hospital, Risk of Diagnosis Which Will Require Inpatient Eval/Care/Monitoring
[2020-06-14] MEDS: MORPHINE SULFATE 10 MG/ML INJ IV PRN (21:49)
[2020-06-15] MEDS: MIDODRINE HCL 5 MG TABLET PO SCH ×4 (01:17→22:06)
[2020-06-15] MEDS: IPRATROPIUM/ALBUTEROL 0.5-2.5 MG/3 ML AMPUL NEB SCH ×4 (01:57→20:08)
[2020-06-15] MEDS: MORPHINE SULFATE 10 MG/ML INJ IV PRN ×2 (02:25→13:10)
[2020-06-15] MEDS ORDERED: HEPARIN SOD (PORCINE) 1,000 UNIT/ML 10 ML VIAL IV PRN (05:00)
[2020-06-15] MEDS ORDERED: LACTULOSE SYRUP 20 GM/30 ML UDCUP PO ONE (05:30)
[2020-06-15 05:33] LABS: HEMATOCRIT 42.4 % (37.9-51.0); HEMOGLOBIN 13.9 g/dL (13.5-17.0); MEAN CORPUSCULAR HEMOGLOBIN 28.9 pg (27.0-33.4); MEAN CORPUSCULAR HGB CONC 32.8 g/dL (32.0-36.0); MEAN CORPUSCULAR VOLUME 88 fl (80-97); PLATELET COUNT 217 10^3/uL (150-450); RED BLOOD COUNT 4.81 10^6/uL (4.35-5.55); RED CELL DISTRIBUTION WIDTH 19.7 % (11.5-14.0); WHITE BLOOD COUNT 11.7 10^3/uL (4.0-10.5)
[2020-06-15 05:54] LABS: ANION GAP 10 (5-19); BLOOD UREA NITROGEN 38 mg/dL (7-20); CALCIUM 9.1 mg/dL (8.4-10.2); CARBON DIOXIDE 25 mmol/L (22-30); CHLORIDE 92 mmol/L (98-107); GLUCOSE 94 mg/dL (75-110); POTASSIUM 5.1 mmol/L (3.6-5.0)
[2020-06-15] MEDS: PANTOPRAZOLE SODIUM 40 MG TABLET.DR PO SCH ×2 (06:14→16:12)
--- NOTE | 2020-06-15 08:57 | PDOC PROGRESS REPORT ---
Subjective Progress Note for:: 06/15/20 Subjective:: 59y/o male known to me from prior admissions who had been followed by Dr. Shields since admission after resuscitated out of hospital cardiac arrest. The chart was reviewed by me. Please see Dr. Shields's notes for full details. In summary, he was found unresponsive by EMS secondary to VT, he was successfully resuscitated and admitted to our facility. He eventually underwent placement of 2 chest tubes. 06/15/2020 The patient is evaluated while he is on dialysis. He is currently receiving nebulizing treatment. He has no new cardiovascular complaints. His telemetry shows a ventricularly paced rhythm without recurrence of VT or any other significant ventricular dysrhythmias. He continues to be off of pressors. Physical exam on 06/15/20: General: cachectic, looks pale and chronically ill, older than stated age. Receiving dialysis. Neck: no JVD. Heart: RRR, no murmurs or rubs. Lungs: CTA bilaterally. LE: no edema or cyanosis. Reason For Visit: V TACHYCARDIA Physical Exam Vital Signs: Temp Pulse Resp BP Pulse Ox 98.5 F 51 L 12 87/64 L 93 06/15/20 04:25 06/15/20 06:39 06/15/20 04:25 06/15/20 04:25 06/15/20 04:25 Intake & Output 06/14/20 06/15/20 06/16/20 06:59 06:59 06:59 Intake Total 1449 828 Output Total 1310 260 160 Balance 139 568 -160 Weight 53.2 kg 65.2 kg Results Laboratory Results: 06/15/20 05:05 06/15/20 05:05 06/15/20 06/15/20 05:05 05:05 WBC 11.7 H RBC 4.81 Hgb 13.9 Hct 42.4 MCV 88 MCH 28.9 MCHC 32.8 RDW 19.7 H Plt Count 217 Sodium 126.7 L Potassium 5.1 H Chloride 92 L Carbon Dioxide 25 Anion Gap 10 BUN 38 H Creatinine 2.49 H Est GFR ( Amer) 32 L Glucose 94 Calcium 9.1 06/07/20 06/07/20 06/07/20 12:24 12:24 15:08 Creatine Kinase 34 L Troponin I 0.035 0.041 NT-Pro-B Natriuret Pep 06/07/20 06/07/20 06/08/20 16:45 22:01 05:25 Creatine Kinase 35 L 40 L 35 L Troponin I NT-Pro-B Natriuret Pep 06/08/20 05:25 Creatine Kinase Troponin I NT-Pro-B Natriuret Pep 18847 H Impressions: Head CT 06/07/20 13:02 IMPRESSION: Stable CT of the brain with bifrontal encephalomalacia. No acute intracranial event. EVIDENCE OF ACUTE STROKE: NO. Abdomen/Pelvis CT 06/07/20 13:03 IMPRESSION: There is a large amount of ascites. 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 No other significant finding. Thoracentesis Ultrasound 06/08/20 00:00 IMPRESSION: SUCCESSFUL THORACENTESIS AND CHEST TUBE PLACEMENT USING ULTRASOUND GUIDANCE. Chest CT 06/09/20 00:00 IMPRESSION: 1. RIGHT-SIDED PIGTAIL PLEURAL CATHETER WITH INTERVAL DECREASE IN THE PLEURAL EFFUSION. THERE IS NOW A MILD TO MODERATE RIGHT PNEUMOTHORAX. THE CATHETER WILL BE READJUSTED. 2. MODERATE LEFT PLEURAL EFFUSION, UNCHANGED. DIFFUSE AIRSPACE DISEASE UNCHANGED. Chest X-Ray 06/14/20 06:00 IMPRESSION: STABLE APPEARANCE. NO PNEUMOTHORAX. NO SIGNIFICANT CHANGE. 06/15/20 05:05 06/15/20 05:05 MCV 88 fl (80-97) 06/15/20 05:05 MCH 28.9 pg (27.0-33.4) 06/15/20 05:05 MCHC 32.8 g/dL (32.0-36.0) 06/15/20 05:05 RDW 19.7 % (11.5-14.0) H 06/15/20 05:05 Seg Neutrophils % Not Reportable 06/14/20 06:28 Chloride 92 mmol/L (98-107) L 06/15/20 05:05 Carbon Dioxide 25 mmol/L (22-30) 06/15/20 05:05 Anion Gap 10 (5-19) 06/15/20 05:05 Est GFR ( Amer) 32 (>60) L 06/15/20 05:05 Est GFR (Non-Af Amer) Cancelled 06/09/20 07:57 Glucose 94 mg/dL (75-110) 06/15/20 05:05 Lactic Acid 2.3 mmol/L (0.7-2.1) H 06/07/20 15:08 Calcium 9.1 mg/dL (8.4-10.2) 06/15/20 05:05 Magnesium 2.2 mg/dL (1.6-2.3) 06/14/20 06:28 Total Bilirubin 1.8 mg/dL (0.2-1.3) H 06/14/20 06:28 AST 21 U/L (17-59) 06/14/20 06:28 Alkaline Phosphatase 132 U/L (38-126) H 06/14/20 06:28 Ammonia 8.8 umol/L (9-33) L 06/12/20 11:22 Total Protein 6.4 g/dL (6.3-8.2) 06/14/20 06:28 Albumin 3.0 g/dL (3.5-5.0) L 06/14/20 06:28 Triglycerides 57 mg/dL (<150) 06/08/20 05:25 Cholesterol 147.93 mg/dL (0-200) 06/08/20 05:25 LDL Cholesterol Direct 91 mg/dL (<100) 06/08/20 05:25 VLDL Cholesterol 11.0 mg/dL (10-31) 06/08/20 05:25 HDL Cholesterol 40 mg/dL (>40) 06/08/20 05:25 Lipase 32.3 U/L (23-300) 06/07/20 12:24 TSH 9.43 uIU/mL (0.47-4.68) H 06/08/20 05:25 Urine Color AIDE 06/14/20 00:40 Urine Appearance CLEAR 06/14/20 00:40 Urine pH 5.0 (5.0-9.0) 06/14/20 00:40 Ur Specific [place] 1.016 06/14/20 00:40 Urine Protein NEGATIVE mg/dL (NEGATIVE) 06/14/20 00:40 Urine Glucose (UA) NEGATIVE mg/dL (NEGATIVE) 06/14/20 00:40 Urine Ketones NEGATIVE mg/dL (NEGATIVE) 06/14/20 00:40 Urine Blood NEGATIVE (NEGATIVE) 06/14/20 00:40 Urine Nitrite NEGATIVE (NEGATIVE) 06/14/20 00:40 Ur Leukocyte Esterase NEGATIVE (NEGATIVE) 06/14/20 00:40 Urine WBC (Auto) 1 /HPF 06/14/20 00:40 Urine RBC (Auto) 1 /HPF 06/14/20 00:40 06/07/20 06/07/20 06/07/20 12:24 12:24 15:08 Creatine Kinase 34 L Troponin I 0.035 0.041 NT-Pro-B Natriuret Pep 06/07/20 06/07/20 06/08/20 16:45 22:01 05:25 Creatine Kinase 35 L 40 L 35 L Troponin I NT-Pro-B Natriuret Pep 06/08/20 05:25 Creatine Kinase Troponin I NT-Pro-B Natriuret Pep [id number] H Current Medication List Generic Name Dose Route Start Last Admin Trade Name Freq PRN Reason Stop Dose Admin Acetaminophen 650 mg 06/07/20 15:53 06/12/20 22:23 Tylenol 325 Mg Tablet PO 07/07/20 15:52 650 mg Q4HP PRN Administration FEVER >101 Albuterol/Ipratropium 3 ml 06/07/20 20:00 06/15/20 08:40 Duoneb 3 Ml Ampul NEB 07/07/20 19:59 3 ml RTQ6 ANTONELLA Administration Fluticasone Propionate 2 spray 06/08/20 10:00 06/14/20 09:22 Flonase Nasal [place] 50 Mcg/[place] 16 Gm NASL 07/08/20 09:59 Not Given DAILY ANTONELLA Furosemide 20 mg 06/10/20 14:00 06/14/20 21:51 Lasix Inj/Pf 20 Mg/2 Ml Sdv IV 07/10/20 13:59 20 mg Q12 ANTONELLA Administration Heparin Sodium (Porcine) 0 - 12,000 unit 06/07/20 22:00 06/14/20 14:40 Heparin Inj 1,000 Unit/Ml 10 Ml Vial IV 07/07/20 21:59 1,700 units .BOLUS PER PROTOCOL PRN Administration RESPOND TO aPTT VALUES Protocol Heparin Sodium (Porcine) 4,300 unit 06/15/20 05:00 Heparin Inj 1,000 Unit/Ml 10 Ml Vial IV 06/15/20 23:59 .SPLIT B/N CATHETERS PRN THIS MED IS NOT "PRN" Heparin Sodium/Dextrose 25,000 unit in 250 mls @ 0 mls/hr 06/07/20 22:00 06/14/20 14:40 Heparin Rtu 25,000 Unit/250 Ml D5w Premix IV 07/07/20 21:59 10.17 mls/hr CONTINUOUS PRN 10.17 mls/hr THIS MED IS NOT "PRN" Titration Protocol Titrate Metoprolol Tartrate 50 mg 06/07/20 22:00 06/14/20 21:49 Lopressor 50 Mg Tablet PO 07/07/20 21:59 Not Given Q12 ANTONELLA Midodrine 10 mg 06/14/20 23:00 06/15/20 06:15 Proamatine 5 Mg Tablet PO 07/14/20 22:59 10 mg Q8 ANTONELLA Administration Morphine Sulfate 2 mg 06/13/20 14:04 06/15/20 02:25 Morphine 10 Mg/Ml Inj IV 06/20/20 14:03 2 mg Q2HP PRN Administration FOR BREAKTHROUGH PAIN Ondansetron HCl 4 mg 06/07/20 15:53 06/12/20 04:30 Zofran Inj/Pf 4 Mg/2 Ml Sdv IV 07/07/20 15:52 4 mg Q8HP PRN Administration FOR NAUSEA/VOMITING Pantoprazole Sodium 40 mg 06/08/20 06:00 06/15/20 06:[address] Tablet PO 07/08/20 05:59 40 mg BID@0600,1700 ANTONELLA Administration Sodium Chloride 2.5 ml 06/07/20 22:00 06/15/20 06:15 Saline Flush 2.5 Ml Monoject Prefil Syrin IV 07/07/20 21:59 2.5 ml Q8 ANTONELLA Administration Spironolactone 25 mg 06/10/20 14:00 06/14/20 09:21 Aldactone 25 Mg Tablet PO 07/10/20 13:59 25 mg DAILY ANTONELLA Administration Discontinued Medications Generic Name Dose Route Start Last Admin Trade Name Freq PRN Reason Stop Dose Admin Bumetanide 0.5 mg 06/08/20 10:00 06/08/20 11:12 Bumex 1 Mg Tablet PO 07/08/20 09:59 0.5 mg DAILY ANTONELLA Administration Fentanyl Citrate Confirm 06/13/20 12:36 Sublimaze Inj/Pf 100 Mcg/2 Ml Ampule Administered 06/13/20 12:37 Dose 100 mcg .ROUTE .STK-MED ONE Heparin Sodium (Porcine) 3,600 unit 06/10/20 05:00 06/10/20 11:56 Heparin Inj 1,000 Unit/Ml 10 Ml Vial IV 06/10/20 23:59 3,600 units .SPLIT B/N CATHETERS PRN Administration THIS MED IS NOT "PRN" Heparin Sodium (Porcine) 3,600 unit 06/13/20 07:38 Heparin Inj 1,000 Unit/Ml 10 Ml Vial IV 06/13/20 23:59 .SPLIT B/N CATHETERS PRN THIS MED IS NOT "PRN" Sodium Chloride 1,000 mls @ 0 mls/hr 06/08/20 16:45 06/08/20 19:49 Nacl 0.9% 1000 Ml Iv Soln IV 06/08/20 16:46 Not Given BOLUS ONE Wide Open Dopamine HCl/Dextrose 800 mg in 250 mls @ 3.178 mls/hr 06/08/20 17:35 06/11/20 10:45 Dopamine Rtu 800 Mg-D5w 250 Ml (Adult) Premix IV 07/08/20 17:34 Infused CONTINUOUS PRN Infusion THIS MED IS NOT "PRN" 3 MCG/KG/MIN [place] 4 gm/ Sodium Chloride 50 mls @ 0 mls/hr 06/13/20 10:04 IPL 06/13/20 23:59 .PROCEDURE PRN THIS MED IS NOT "PRN" As Directed Ketorolac Tromethamine Confirm 06/09/20 07:03 06/09/20 07:55 Toradol Inj/Pf 30 Mg/1 Ml Sdv Administered 06/09/20 07:04 Not Given Dose 30 mg .ROUTE .STK-MED ONE Ketorolac Tromethamine 15 mg 06/09/20 08:00 06/09/20 07:59 Toradol Inj/Pf 30 Mg/1 Ml Sdv IV 06/09/20 08:01 15 mg NOW ONE Administration Lactulose 40 gm 06/15/20 05:30 06/15/20 06:15 Cephulac Syrup 20 Gm/30 Ml Udcup PO 06/15/20 05:31 40 gm NOW ONE Administration Lidocaine HCl Confirm 06/13/20 12:39 Xylocaine 2% Inj (20 Mg/Ml) 20ml Mdv Administered 06/13/20 12:40 Dose 20 ml .ROUTE .STK-MED ONE Midazolam HCl Confirm 06/13/20 12:35 Versed 2 Mg/2 Ml Inj Administered 06/13/20 12:36 Dose 2 mg .ROUTE .STK-MED ONE Midazolam HCl Confirm 06/13/20 16:11 Versed 2 Mg/2 Ml Inj Administered 06/13/20 16:12 Dose 2 mg .ROUTE .STK-MED ONE Midodrine 10 mg 06/08/20 10:00 06/14/20 17:32 Proamatine 5 Mg Tablet PO 07/08/20 09:59 10 mg TID ANTONELLA Administration Morphine Sulfate 1 mg 06/10/20 14:44 06/12/20 04:39 Morphine 10 Mg/Ml Inj IV 06/17/20 14:43 1 mg Q6HP PRN Administration PAIN Morphine Sulfate Confirm 06/10/20 14:44 06/10/20 15:32 Morphine 10 Mg/Ml Inj Administered 06/10/20 14:45 Not Given Dose 10 mg .ROUTE .STK-MED ONE Morphine Sulfate Confirm 06/13/20 12:36 Morphine 10 Mg/Ml Inj Administered 06/13/20 12:37 Dose 10 mg .ROUTE .STK-MED ONE Spironolactone 25 mg 06/09/20 10:00 Aldactone 25 Mg Tablet PO 07/09/20 09:59 DAILY ANTONELLA Assessment & Plan - Diagnosis (1) Atrial fibrillation Is this a current diagnosis for this admission?: Yes Plan: The patient continues to maintain a regular rhythm and asymptomatic. Recommendations: -May transition to PO warfarin if no further surgical procedures planned. -Continue with BB at current doses. -Continue with telemetry. (2) CHF (congestive heart failure) Qualifiers: Heart failure chronicity: chronic Is this a current diagnosis for this admission?: Yes Plan: He appears compensated and asymptomatic, he is receiving dialysis this morning. He is now followed by neprhology and dialyzed. At this point, the patient is not a candidate for any invasive cardiovascular interventions given his overall condition and poor prognosis. Recommendations: -Continue with current management. -Fluid management per nephrology team. (3) Ventricular tachyarrhythmia Is this a current diagnosis for this admission?: Yes Plan: Hypoxia and respiratory distress appear to have preceded the episode which was likely VT. He has remained asymptomatic and without recurrence of the dysrhythmia since admission. 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 I agree with prior recommendations by Dr. Shields as follows: -Reluctant to use anti-arrhythmic especially Amiodarone given poor lung and hepatic status. -Not a candidate for ICD at this point given his poor functional status, poor muscle mass and likely limited life expectancy given multiple medical problems and evidence of multiple organ dysfunction. -A suitable but not ideal option would to pursue a wearable defibrillator until: 1. Functional status improves 2. He becomes better nourished with improved muscle mass-lack of healing and susceptibility to infection affter ICD implant being concerns -SICD is a bulky device and risks device erosion. 3. Chest tube is removed 4. [place] scenario would require permanent HD access on right chest wall so we can use left sided access for transvenous ICD 5. There is improvement in liver function and overall health (4) CKD (chronic kidney disease) requiring chronic dialysis Is this a current diagnosis for this admission?: Yes Plan: He is now followed by nephrology and receiving dialysis this morning.
[2020-06-15] MEDS: SPIRONOLACTONE 25 MG TABLET PO SCH (10:08)
[2020-06-15] MEDS: FLUTICASONE NASAL SPRAY 50 MCG/SPRY 120 SPRAY/16 GM NASL SCH (10:08)
[2020-06-15] MEDS: FUROSEMIDE INJ/PF 20 MG/2 ML SDV IV SCH ×2 (10:09→22:13)
[2020-06-15] MEDS: METOPROLOL TARTRATE 50 MG TABLET PO SCH ×2 (10:09→22:06)
--- NOTE | 2020-06-15 11:33 | PDOC PROGRESS REPORT ---
Subjective Progress Note for:: 06/15/20 Subjective:: Feels more comfortable. Just mild discomfort along the right chest tube insertion site. Reason For Visit: V TACHYCARDIA Physical Exam Vital Signs: Temp Pulse Resp BP Pulse Ox 98.5 F 90 16 87/64 L 99 06/15/20 04:25 06/15/20 08:40 06/15/20 08:40 06/15/20 04:25 06/15/20 08:40 Intake & Output 06/14/20 06/15/20 06/16/20 06:59 06:59 06:59 Intake Total 1449 828 Output Total 9660 266 9917 Balance 139 568 -1060 Weight 53.2 kg 65.2 kg Exam: Chest tube insertion site looks clean and dry. Chest tube drainage slowing down. Chest x-ray yesterday showed resolution of the pneumothorax. Possible removal of chest tube in the drainage goes to less than 100 cc a day Results Laboratory Results: 06/15/20 05:05 06/15/20 05:05 06/15/20 06/15/20 05:05 05:05 WBC 11.7 H RBC 4.81 Hgb 13.9 Hct 42.4 MCV 88 MCH 28.9 MCHC 32.8 RDW 19.7 H Plt Count 217 Sodium 126.7 L Potassium 5.1 H Chloride 92 L Carbon Dioxide 25 Anion Gap 10 BUN 38 H Creatinine 2.49 H Est GFR ( Amer) 32 L Glucose 94 Calcium 9.1 06/07/20 06/07/20 06/07/20 12:24 12:24 15:08 Creatine Kinase 34 L Troponin I 0.035 0.041 NT-Pro-B Natriuret Pep 06/07/20 06/07/20 06/08/20 16:45 22:01 05:25 Creatine Kinase 35 L 40 L 35 L Troponin I NT-Pro-B Natriuret Pep 06/08/20 05:25 Creatine Kinase Troponin I NT-Pro-B Natriuret Pep [id number] H Impressions: Head CT 06/07/20 13:02 IMPRESSION: Stable CT of the brain with bifrontal encephalomalacia. No acute intracranial event. EVIDENCE OF ACUTE STROKE: NO. Abdomen/Pelvis CT 06/07/20 13:03 IMPRESSION: There is a large amount of ascites. 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 No other significant finding. Thoracentesis Ultrasound 06/08/20 00:00 IMPRESSION: SUCCESSFUL THORACENTESIS AND CHEST TUBE PLACEMENT USING ULTRASOUND GUIDANCE. Chest CT 06/09/20 00:00 IMPRESSION: 1. RIGHT-SIDED PIGTAIL PLEURAL CATHETER WITH INTERVAL DECREASE IN THE PLEURAL EFFUSION. THERE IS NOW A MILD TO MODERATE RIGHT PNEUMOTHORAX. THE CATHETER WILL BE READJUSTED. 2. MODERATE LEFT PLEURAL EFFUSION, UNCHANGED. DIFFUSE AIRSPACE DISEASE UNCHANGED. Chest X-Ray 06/14/20 06:00 IMPRESSION: STABLE APPEARANCE. NO PNEUMOTHORAX. NO SIGNIFICANT CHANGE.
[2020-06-15] MEDS: HEPARIN SODIUM,PORCINE/D5W 25,000 UNIT/250 ML RTUINJ IV PRN (12:16)
--- NOTE | 2020-06-15 16:51 | PDOC PROGRESS REPORT ---
Subjective Progress Note for:: 06/15/20 Subjective:: Per previous physician: "59 year old male with a history of congestive heart failure, pacemaker short- term dialysis still has a dialysis catheter, hypertension, atrial fibrillation on warfarin came in with complaints of shortness of breath and difficulty in ambulation. Patient's nephew called the EMS because of the patient's poor living condition EMS found that heart rate is more than 100 thinking it was a V. tach give him a shock. By the time patient arrival at the ER he is in sinus rhythm heart rate is in the 80s. Initial lactic acid level is one-point 0 r epeat lactic acid is 2.1. Patient denies any fevers denies any chills denies any headaches dizzy spells nausea vomiting diarrhea. His main complaint is shortness of breath and difficulty in ambulation at home. Consulted with Dr. Cornelius Root was requested by the ER. 06/08/2020-patient is on heparin drip at this time Coumadin is on hold. CT scan shows large right-sided pleural effusion going for thoracentesis today. Comfortably in the bed not in distress. 06/09/2020-patient is comfortable in the bed communicating well. He agreed to go to a long-term care facility. Patient is going for dialysis tomorrow. Cardiology consult was done. He has a previous admission at [facility] according to the records cardiac cath is normal. EF at that time of mitral valve replacement EF is 55%. Echocardiogram here with EF of 25%. Patient's overall prognosis is poor. It is because of heart failure, renal failure, COPD, liver failure. 06/10/2020-patient is going to the ICU for dialysis because he is on a dopamine drip. Surgical consult was requested for management of the chest tube. Patient is comfortably in the bed communicating well not in distress. Once he finishes his dialysis unit in ICU he will be back to fifth floor. 06/11/2020-patient is comfortable in the bed communicating well. Denies any problems. Physical therapy is working with the patient. He completed dialysis successfully yesterday. Chest tube management as per surgical team. 06/12/2020-patient is comfortably in the chair communicating well. Patient has a chest tube in the right side continues to leak nurses using maxi pad. Dr. Henry is notified." 06/14/2020 Patient states he has no new complaints today other than being a bit tired. WBC is a bit higher. Creatinine is lower and he is currently receiving dialysis from nephrology here. Likely he will need to continue dialysis permanently his urine output is not recovering and since yesterday he is only had 145 mL out. Blood culture negative. Chest x-ray showed right-sided chest tube. Patient has chronic A. fib currently continued on heparin drip. Bilirubin and sodium are higher now. 06/15/2020 General surgery inserted talcum powder to initiate a pleurodesis in the patient's chest tube reportedly. Patient denies any significant increase in vamsi n despite this. Sodium is dropped likely due to poor nutrition, encourage patient to eat his meals. Creatinine is higher and potassium is also higher. Nephrology is following and managing his dialysis needs and I discussed with the patient that I think he will probably need dialysis permanently from this point forward. He has no new complaints other than generalized fatigue and weakness. Reason For Visit: V TACHYCARDIA Physical Exam Vital Signs: Temp Pulse Resp BP Pulse Ox 97.6 F 93 16 100/64 97 06/15/20 11:46 06/15/20 14:00 06/15/20 11:46 06/15/20 11:46 06/15/20 16:21 Intake & Output 06/14/20 06/15/20 06/16/20 06:59 06:59 06:59 Intake Total 1449 828 220 Output Total 7196 822 7069 Balance 139 568 -840 Weight 53.2 kg 65.2 kg General appearance: PRESENT: no acute distress, well-developed, well-nourished Head exam: PRESENT: atraumatic, normocephalic Eye exam: PRESENT: conjunctiva pink Mouth exam: PRESENT: moist Respiratory exam: PRESENT: clear to auscultation [place], crackles - Crackles through lung [place] around chest tube as expected. ABSENT: rales, wheezes Cardiovascular exam: PRESENT: RRR. ABSENT: diastolic murmur, rubs, systolic murmur GI/Abdominal exam: PRESENT: normal bowel sounds, soft. ABSENT: distended, guarding, mass, organolmegaly, rebound, tenderness Neurological exam: PRESENT: alert, awake, oriented to person, oriented to place Psychiatric exam: PRESENT: appropriate affect, normal mood Skin exam: PRESENT: dry, intact, warm Results Laboratory Results: 06/15/20 05:05 06/15/20 05:05 06/15/20 06/15/20 05:05 05:05 WBC 11.7 H RBC 4.81 Hgb 13.9 Hct 42.4 MCV 88 MCH 28.9 MCHC 32.8 RDW 19.7 H Plt Count 217 Sodium 126.7 L Potassium 5.1 H Chloride 92 L Carbon Dioxide 25 Anion Gap 10 BUN 38 H Creatinine 2.49 H Est GFR ( Amer) 32 L Glucose 94 Calcium 9.1 06/07/20 06/07/20 06/07/20 12:24 12:24 15:08 Creatine Kinase 34 L Troponin I 0.035 0.041 NT-Pro-B Natriuret Pep 06/07/20 06/07/20 06/08/20 16:45 22:01 05:25 Creatine Kinase 35 L 40 L 35 L Troponin I NT-Pro-B Natriuret Pep 06/08/20 05:25 Creatine Kinase Troponin I NT-Pro-B Natriuret Pep 11304 H Impressions: Head CT 06/07/20 13:02 IMPRESSION: Stable CT of the brain with bifrontal encephalomalacia. No acute intracranial event. EVIDENCE OF ACUTE STROKE: NO. Abdomen/Pelvis CT 06/07/20 13:03 IMPRESSION: There is a large amount of ascites. 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 No other significant finding. Thoracentesis Ultrasound 06/08/20 00:00 IMPRESSION: SUCCESSFUL THORACENTESIS AND CHEST TUBE PLACEMENT USING ULTRASOUND GUIDANCE. Chest CT 06/09/20 00:00 IMPRESSION: 1. RIGHT-SIDED PIGTAIL PLEURAL CATHETER WITH INTERVAL DECREASE IN THE PLEURAL EFFUSION. THERE IS NOW A MILD TO MODERATE RIGHT PNEUMOTHORAX. THE CATHETER WILL BE READJUSTED. 2. MODERATE LEFT PLEURAL EFFUSION, UNCHANGED. DIFFUSE AIRSPACE DISEASE UNCHANGED. Chest X-Ray 06/14/20 06:00 IMPRESSION: STABLE APPEARANCE. NO PNEUMOTHORAX. NO SIGNIFICANT CHANGE. Assessment and Plan - Diagnosis (1) Pneumothorax, iatrogenic Is this a current diagnosis for this admission?: Yes Plan: Occurred during thoracentesis Right chest tube placed, gradual improvement General surgery to determine timing of chest tube removal General surgery inserted talcum powder for pleurodesis on 06/13 (2) Ventricular tachyarrhythmia Is this a current diagnosis for this admission?: Yes Plan: Per previous physician: "06/07/2020-patient is going to be admitted to [facility] as an inpatient because of questionable V. tach status post shock by the EMS. Cardiology consult was requested serial troponins will be requested. He is a full code. Consultation with Dr. Mera requested. Echocardiogram is requested. 06/08/2020-heart rate today is 94. In sinus rhythm. Recently on heparin drip. Latest troponin is 0.041. BNP is 16,800. 06/09/2020-heart rate is 81. Rate controlled A. fib. On heparin drip. 06/10/2020-heart rate in the 90s. Rate controlled A. fib. He is on heparin drip at this time. 06/12/2020-heart rate in the 80s. Rate controlled rhythm. Still on heparin drip." 06/14/2020 Heart rate controlled on heparin drip and current medications, continue regimen 06/15/2020 No further abnormal cardiac rhythms reported, still on heparin drip and tolerating this well (3) ESRD (end stage renal disease) on dialysis Is this a current diagnosis for this admission?: Yes Plan: For previous physician: "06/07/2020-patient has history of hemodialysis for a short while still carrying the dialysis catheter on the left side of the chest. Creatinine is 1.7 potassium within normal limits. Plan is to recheck the labs tomorrow. 06/08/2020-serum creatinine today 1.86. Patient has stage III kidney disease. Serum potassium is 3.7. No need for dialysis at this time. Patient has a dialysis access present on the left side of the chest. 06/09/2020-consultation with Dr. Cornelius Godfrey was done and patient is going for dialysis tomorrow. 06/10/2020-patient is going to the dialysis in ICU today because he is on a dopamine drip. Once the dialysis session is finished in ICU he will be back to fifth floor. 06/11/2020-patient completed dialysis in the ICU because on the dopamine drip. Blood pressures are improved today plan is to discontinue dopamine drip." 06/14/2020 Nephrology following: Managing dialysis with a plan to continue for the time being as his urine output has not responded to Lasix Hypotension during dialysis improved with midodrine, continued 06/13/2020 Permanent dialysis, nephrology managing this. He will need long-term dialysis set up at discharge (4) Ascites Is this a current diagnosis for this admission?: Yes (5) Atrial fibrillation Is this a current diagnosis for this admission?: Yes (6) CHF (congestive heart failure) Qualifiers: Heart failure chronicity: chronic Is this a current diagnosis for this admission?: Yes (7) COPD (chronic obstructive pulmonary disease) Qualifiers: Is this a current diagnosis for this admission?: No (8) Protein-energy malnutrition Qualifiers: Protein-calorie malnutrition severity: mild Qualified Code(s): E44.1 - Mild protein-calorie malnutrition Is this a current diagnosis for this admission?: Yes (9) H/O mitral valve replacement with mechanical valve Is this a current diagnosis for this admission?: Yes Plan: Restart Coumadin with heparin bridge (10) Pleural effusion Is this a current diagnosis for this admission?: Yes (11) Shortness of breath Is this a current diagnosis for this admission?: Yes - Time Time Spent with patient: 25-34 minutes Medications reviewed and adjusted accordingly: Yes Anticipated discharge: SNF Within: Other - When surgery approves and chest tube removed - Inpatient Certification Based on my medical assessment, after consideration of the patient's comorbidities, presenting symptoms, or acuity I expect that the services needed warrant INPATIENT care.: Yes I certify that my determination is in accordance with my understanding of Medicare's requirements for reasonable and necessary INPATIENT services [42 CFR 412.3e].: Yes Medical Necessity: Significant Comorbidiites Make Outpatient Treatment Too Risky, Need Close Monitoring Due to Risk of Patient Decompensation, Risk of Complication if Not Cared For in Hospital, Risk of Diagnosis Which Will Require Inpatient Eval/Care/Monitoring
[2020-06-15] MEDS ORDERED: PHARMACY COMMUNICATION ORDER MC NR (17:00)
[2020-06-15 20:32] LABS: HEMATOCRIT 42.7 % (37.9-51.0); HEMOGLOBIN 13.9 g/dL (13.5-17.0); MEAN CORPUSCULAR HEMOGLOBIN 28.7 pg (27.0-33.4); MEAN CORPUSCULAR HGB CONC 32.5 g/dL (32.0-36.0); MEAN CORPUSCULAR VOLUME 88 fl (80-97); PLATELET COUNT 197 10^3/uL (150-450); RED BLOOD COUNT 4.83 10^6/uL (4.35-5.55); RED CELL DISTRIBUTION WIDTH 19.8 % (11.5-14.0)
[2020-06-15] MEDS ORDERED: WARFARIN SODIUM 3 MG TABLET PO SCH (22:00)
[2020-06-15] MEDS: ONDANSETRON HCL INJ/PF 4 MG/2 ML SDV IV PRN (22:13)
--- NOTE | 2020-06-15 22:40 | PDOC PROGRESS REPORT ---
Subjective Progress Note for:: 06/15/20 Subjective:: I am seeing the patient during dialysis this morning. He is fairly comfortable during dialysis and is tolerating the procedure well. His blood pressure is actually better during his dialysis treatment. He continues to have a chest tube and pleurodesis was done last Saturday. Patient states that he is doing all right and he is eating good. He said he is breathing okay and has no new complaints. He is actually in usually pleasant today. Reason For Visit: V TACHYCARDIA Physical Exam Vital Signs: Temp Pulse Resp BP Pulse Ox 98.5 F 90 16 87/64 L 99 06/15/20 04:25 06/15/20 08:40 06/15/20 08:40 06/15/20 04:25 06/15/20 08:40 Intake & Output 06/14/20 06/15/20 06/16/20 06:59 06:59 06:59 Intake Total 1449 828 Output Total 1310 260 160 Balance 139 568 -160 Weight 53.2 kg 65.2 kg Vitals during dialysis: Blood pressure of 127/61, heart rate of 90, blood flow rate of 250 mL/min and dialysate flow rate of 600 mL/min. Exam: General appearance: PRESENT: no acute distress, cooperative, well-developed, wel l-nourished Head exam: PRESENT: atraumatic, normocephalic Eye exam: PRESENT: conjunctiva pink, PERRLA. ABSENT: scleral icterus Neck exam: ABSENT: JVD Respiratory exam: PRESENT: Diminished breath sounds. Chest tube in place in the right chest. ABSENT: crackles, rales, rhonchi, unlabored, wheezes Cardiovascular exam: PRESENT: Irregularly irregular rate rhythm -+S1, +S2. ABSENT: diastolic murmur, systolic murmur GI/Abdominal exam: PRESENT: normal bowel sounds, soft. ABSENT: guarding, mass, tenderness Extremities exam: Improved trace bilateral lower extremity edema Neurological exam: PRESENT: alert, awake, oriented to person, place and time. Skin exam: PRESENT: dry, warm, Cardiovascular exam: PRESENT: +S1, +S2 GI/Abdominal exam: PRESENT: ascites, distended, normal bowel sounds, soft. ABSENT: firm, guarding, organomegaly Results Laboratory Results: 06/15/20 05:05 06/15/20 05:05 06/15/20 06/15/20 05:05 05:05 WBC 11.7 H RBC 4.81 Hgb 13.9 Hct 42.4 MCV 88 MCH 28.9 MCHC 32.8 RDW 19.7 H Plt Count 217 Sodium 126.7 L Potassium 5.1 H Chloride 92 L Carbon Dioxide 25 Anion Gap 10 BUN 38 H Creatinine 2.49 H Est GFR ( Amer) 32 L Glucose 94 Calcium 9.1 06/07/20 06/07/20 06/07/20 12:24 12:24 15:08 Creatine Kinase 34 L Troponin I 0.035 0.041 NT-Pro-B Natriuret Pep 06/07/20 06/07/20 06/08/20 16:45 22:01 05:25 Creatine Kinase 35 L 40 L 35 L Troponin I NT-Pro-B Natriuret Pep 06/08/20 05:25 Creatine Kinase Troponin I NT-Pro-B Natriuret Pep [id number] H Impressions: Head CT 06/07/20 13:02 IMPRESSION: Stable CT of the brain with bifrontal encephalomalacia. No acute intracranial event. EVIDENCE OF ACUTE STROKE: NO. Abdomen/Pelvis CT 06/07/20 13:03 IMPRESSION: There is a large amount of ascites. 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 No other significant finding. Thoracentesis Ultrasound 06/08/20 00:00 IMPRESSION: SUCCESSFUL THORACENTESIS AND CHEST TUBE PLACEMENT USING ULTRASOUND GUIDANCE. Chest CT 06/09/20 00:00 IMPRESSION: 1. RIGHT-SIDED PIGTAIL PLEURAL CATHETER WITH INTERVAL DECREASE IN THE PLEURAL EFFUSION. THERE IS NOW A MILD TO MODERATE RIGHT PNEUMOTHORAX. THE CATHETER WILL BE READJUSTED. 2. MODERATE LEFT PLEURAL EFFUSION, UNCHANGED. DIFFUSE AIRSPACE DISEASE UNCHANGED. Chest X-Ray 06/14/20 06:00 IMPRESSION: STABLE APPEARANCE. NO PNEUMOTHORAX. NO SIGNIFICANT CHANGE. Assessment & Plan - Diagnosis (1) Pleural effusion Is this a current diagnosis for this admission?: Yes Plan: Status post thoracentesis, 06/08 with initial chest tube placement. Chest tube placement revised with pleurodesis on Wednesday 06/13. Surgery following the patient. (2) CHF (congestive heart failure) Qualifiers: Heart failure chronicity: chronic Is this a current diagnosis for this admission?: Yes Plan: EF of 25 to 30% with moderately reduced right ventricular systolic function. Patient has cardiomyopathy. Cardiology on board. Recommendation includes placement of implantable defibrillator but uncertain if the patient can tolerate the procedure. (3) ESRD (end stage renal disease) on dialysis Is this a current diagnosis for this admission?: Yes Plan: Patient's urine output is continues to be minimal despite Lasix. With evidence of fluid overload including pleural effusion, ascites, CHF and edema patient was reinitiated to renal replacement therapy which he most likely will stay on. I informed the patient about this and he seems to be understanding and agreeable with it. We will do dialysis today for 2.5 hours, using the patient's PermCath, with 2 potassium bath, blood flow rate of 250 mL per minute, dialysate flow rate of 600 mL per minute, ultrafiltration 1-1.5L as tolerated as the patient is currently hypotensive, no heparin and no Procrit. Patient is being closely monitored throughout dialysis treatment especially with hypotension. (4) Ventricular tachyarrhythmia Is this a current diagnosis for this admission?: Yes Plan: Per cardiology. (5) Hypotension Qualifiers: Hypotension type: idiopathic hypotension Qualified Code(s): I95.0 - Idiopathic hypotension Is this a current diagnosis for this admission?: Yes Plan: Likely secondary to poor cardiac function and cardiomyopathy. Currently on midodrine. Adrenal insufficiency has been previously ruled out during previous admission. (6) Atrial fibrillation Is this a current diagnosis for this admission?: Yes (7) Hyponatremia Is this a current diagnosis for this admission?: Yes Plan: Chronic and stable. Secondary to hypervolemic state with CHF and ESRD. (8) Ascites Is this a current diagnosis for this admission?: Yes (9) Pneumothorax, iatrogenic Is this a current diagnosis for this admission?: Yes Plan: Post chest tube placement. (10) H/O mitral valve replacement with mechanical valve Is this a current diagnosis for this admission?: Yes Plan: Currently on heparin drip. - Time Time with patient: 15-25 minutes
[2020-06-16 00:29] LABS: APPEARANCE,URINE SLIGHTLY-CLOUDY; BILIRUBIN,URINE NEGATIVE (NEGATIVE); COLOR,URINE AMBER; GLUCOSE, URINE NEGATIVE (NEGATIVE); KETONES,URINE NEGATIVE (NEGATIVE); LEUKOCYTE ESTERASE,URINE NEGATIVE (NEGATIVE); NITRITE,URINE NEGATIVE (NEGATIVE); PROTEIN,URINE NEGATIVE (NEGATIVE); URINE SPECIFIC GRAVITY 1.017
[2020-06-16] MEDS: IPRATROPIUM/ALBUTEROL 0.5-2.5 MG/3 ML AMPUL NEB SCH ×5 (02:16→20:34)
[2020-06-16] MEDS: MIDODRINE HCL 5 MG TABLET PO SCH ×2 (05:39→13:11)
[2020-06-16] MEDS: PANTOPRAZOLE SODIUM 40 MG TABLET.DR PO SCH (05:39)
[2020-06-16 05:56] LABS: INTERNATIONAL RATION (INR) 1.63; PROTHROMBIN TIME 19.5 SEC (11.4-15.4)
[2020-06-16 05:57] LABS: PARTIAL THROMBOPLASTIN TIME 61.6 SEC (23.5-35.8)
--- NOTE | 2020-06-16 08:59 | PDOC PROGRESS REPORT ---
Subjective Progress Note for:: 06/16/20 Subjective:: 59-year-old male with an iatrogenic pneumothorax after radiology guided thoracentesis. Patient continues to have output from his chest tube, although it appears to be decreasing. He was out of bed yesterday to the chair. Today he denies chest pain, shortness of breath, fevers, chills, nausea, vomiting, dizziness, headache. Reason For Visit: V TACHYCARDIA Physical Exam Vital Signs: Temp Pulse Resp BP Pulse Ox 97.7 F 93 14 91/75 L 98 06/16/20 07:38 06/16/20 07:55 06/16/20 07:55 06/16/20 07:38 06/16/20 07:55 Intake & Output 06/15/20 06/16/20 06/17/20 06:59 06:59 06:59 Intake Total 828 570 Output Total 260 2120 Balance 568 -1550 Weight 65.2 kg 61.2 kg Results Laboratory Results: 06/15/20 19:52 06/15/20 05:05 06/15/20 06/16/20 19:52 00:04 WBC 11.0 H RBC 4.83 Hgb 13.9 Hct 42.7 MCV 88 MCH 28.7 MCHC 32.5 RDW 19.8 H Plt Count 197 Urine Color AIDE Urine Appearance SLIGHTLY-CLOUDY Urine pH 5.0 Ur Specific Newborn 1.017 Urine Protein NEGATIVE Urine Glucose (UA) NEGATIVE Urine Ketones NEGATIVE Urine Blood NEGATIVE Urine Nitrite NEGATIVE Ur Leukocyte Esterase NEGATIVE Urine WBC (Auto) 10 Urine RBC (Auto) 5 06/07/20 06/07/20 06/07/20 12:24 12:24 15:08 Creatine Kinase 34 L Troponin I 0.035 0.041 NT-Pro-B Natriuret Pep 06/07/20 06/07/20 06/08/20 16:45 22:01 05:25 Creatine Kinase 35 L 40 L 35 L Troponin I NT-Pro-B Natriuret Pep 06/08/20 05:25 Creatine Kinase Troponin I NT-Pro-B Natriuret Pep [id number] H Impressions: Head CT 06/07/20 13:02 IMPRESSION: Stable CT of the brain with bifrontal encephalomalacia. No acute intracranial event. EVIDENCE OF ACUTE STROKE: NO. Abdomen/Pelvis CT 06/07/20 13:03 IMPRESSION: There is a large amount of ascites. 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 No other significant finding. Thoracentesis Ultrasound 06/08/20 00:00 IMPRESSION: SUCCESSFUL THORACENTESIS AND CHEST TUBE PLACEMENT USING ULTRASOUND GUIDANCE. Chest CT 06/09/20 00:00 IMPRESSION: 1. RIGHT-SIDED PIGTAIL PLEURAL CATHETER WITH INTERVAL DECREASE IN THE PLEURAL EFFUSION. THERE IS NOW A MILD TO MODERATE RIGHT PNEUMOTHORAX. THE CATHETER WILL BE READJUSTED. 2. MODERATE LEFT PLEURAL EFFUSION, UNCHANGED. DIFFUSE AIRSPACE DISEASE UNCHANGED. Assessment & Plan - Diagnosis (1) Pneumothorax, iatrogenic Is this a current diagnosis for this admission?: Yes (2) Hydrothorax Is this a current diagnosis for this admission?: Yes - Plan Summary Plan Summary: This is a 59-year-old male with a hydro-thorax, as well as iatrogenic pneumothorax. He is status post anterior chest tube insertion with chemical p leurodesis. His chest tube output is decreasing. His pneumothorax has resolved. His chest tube is still on suction. I will remove his chest tube from suction. Yesterday, he had approximately 100 cc out (serosanguineous fluid). Maintain chest tube to waterseal today. If output remains low, plan for chest tube removal tomorrow.
--- NOTE | 2020-06-16 09:11 | RADIOLOGY REPORT (SQ) ---
EXAM DESCRIPTION: CHEST SINGLE VIEW IMAGES COMPLETED DATE/TIME: 06/16/2020 8:28 am REASON FOR STUDY: eval effusion COMPARISON: 06/14/2020 NUMBER OF VIEWS: One view. TECHNIQUE: Single frontal radiographic image of the chest acquired. LIMITATIONS: None. FINDINGS: LUNGS AND PLEURA: Bilateral pleural effusions and associated airspace disease, right great er than left not significantly changed. No pneumothorax. MEDIASTINUM AND HEART: Stable heart size and mediastinal structures. SUPPORT DEVICES: Appropriate location without change. BONY STRUCTURES: No acute findings. HARDWARE: CABG. athletic monitor. OTHER: No other significant finding. IMPRESSION: No significant change. No pneumothorax. Reading location - IP/workstation name: [email or web address]
[2020-06-16] MEDS: METOPROLOL TARTRATE 50 MG TABLET PO SCH (10:43)
[2020-06-16] MEDS: SPIRONOLACTONE 25 MG TABLET PO SCH (10:44)
[2020-06-16] MEDS: FUROSEMIDE INJ/PF 20 MG/2 ML SDV IV SCH ×2 (10:44→22:40)
[2020-06-16] MEDS: FLUTICASONE NASAL SPRAY 50 MCG/SPRY 120 SPRAY/16 GM NASL SCH (10:49)
--- NOTE | 2020-06-16 12:08 | PDOC PROGRESS REPORT ---
Subjective Progress Note for:: 06/16/20 Subjective:: 59y/o male known to me from prior admissions who had been followed by Dr. Shields since admission after resuscitated out of hospital cardiac arrest. The chart was reviewed by me. Please see Dr. Shields's notes for full details. In summary, he was found unresponsive by EMS secondary to VT, he was successfully resuscitated and admitted to our facility. He eventually underwent placement of 2 chest tubes. 06/16/2020 The patient had an uneventful night and is found resting comfortably in his bed. He denies cardiac chest pain as well as palpitations, dizziness, lighth eadedness, syncope and presyncope. His main complaint today is pain at the site of his chest tube. His telemetry shows an intermittently ventricularly paced rhythm without recurrence of VT or any other significant ventricular dysrhythmias. He continues to be off of pressors. Physical exam on 06/16/20: General: cachectic, looks pale and chronically ill, older than stated age. Neck: no JVD. Heart: RRR, no murmurs or rubs. Lungs: CTA bilaterally. LE: no edema or cyanosis. Reason For Visit: V TACHYCARDIA Physical Exam Vital Signs: Temp Pulse Resp BP Pulse Ox 97.7 F 93 14 91/75 L 98 06/16/20 07:38 06/16/20 07:55 06/16/20 07:55 06/16/20 07:38 06/16/20 07:55 Intake & Output 06/15/20 06/16/20 06/17/20 06:59 06:59 06:59 Intake Total 828 570 Output Total 260 2120 Balance 568 -1550 Weight 65.2 kg 61.2 kg Results Laboratory Results: 06/15/20 19:52 06/15/20 05:05 06/15/20 06/16/20 19:52 00:04 WBC 11.0 H RBC 4.83 Hgb 13.9 Hct 42.7 MCV 88 MCH 28.7 MCHC 32.5 RDW 19.8 H Plt Count 197 Urine Color AIDE Urine Appearance SLIGHTLY-CLOUDY Urine pH 5.0 Ur Specific [place] 1.017 Urine Protein NEGATIVE Urine Glucose (UA) NEGATIVE Urine Ketones NEGATIVE Urine Blood NEGATIVE Urine Nitrite NEGATIVE Ur Leukocyte Esterase NEGATIVE Urine WBC (Auto) 10 Urine RBC (Auto) 5 06/07/20 06/07/2006/07/20 12:24 12:24 15:08 Creatine Kinase 34 L Troponin I 0.035 0.041 NT-Pro-B Natriuret Pep 06/07/20 06/07/20 06/08/20 16:45 22:01 05:25 Creatine Kinase 35 L 40 L 35 L Troponin I NT-Pro-B Natriuret Pep 06/08/20 05:25 Creatine Kinase Troponin I NT-Pro-B Natriuret Pep [id number] H Impressions: Head CT 06/07/20 13:02 IMPRESSION: Stable CT of the brain with bifrontal encephalomalacia. No acute intracranial event. EVIDENCE OF ACUTE STROKE: NO. Abdomen/Pelvis CT 06/07/20 13:03 IMPRESSION: There is a large amount of ascites. 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 No other significant finding. Thoracentesis Ultrasound 06/08/20 00:00 IMPRESSION: SUCCESSFUL THORACENTESIS AND CHEST TUBE PLACEMENT USING ULTRASOUND GUIDANCE. Chest CT 06/09/20 00:00 IMPRESSION: 1. RIGHT-SIDED PIGTAIL PLEURAL CATHETER WITH INTERVAL DECREASE IN THE PLEURAL EFFUSION. THERE IS NOW A MILD TO MODERATE RIGHT PNEUMOTHORAX. THE CATHETER WILL BE READJUSTED. 2. MODERATE LEFT PLEURAL EFFUSION, UNCHANGED. DIFFUSE AIRSPACE DISEASE UNCHANGED. Chest X-Ray 06/16/20 06:00 IMPRESSION: No significant change. No pneumothorax. Assessment & Plan - Diagnosis (1) Atrial fibrillation Is this a current diagnosis for this admission?: Yes Plan: The patient continues to maintain a regular rhythm and asymptomatic. Recommendations: -May transition to PO warfarin if no further surgical procedures planned. Given his history of mechanical mitral valve his INR should be between 2.5 and 3.5 which could be lowered to between 2.0 and 3.0 if at risk for fall. -Continue with BB at current doses. -Continue with telemetry. (2) CHF (congestive heart failure) Qualifiers: Heart failure chronicity: chronic Is this a current diagnosis for this admission?: Yes Plan: He appears compensated and asymptomatic. He is now followed by neprhology and dialyzed. At this point, the patient is not a candidate for any invasive car diovascular interventions given his overall condition and poor prognosis. Recommendations: -Continue with current management. -Fluid management per nephrology team. -We will sign off the case for now. (3) Ventricular tachyarrhythmia Is this a current diagnosis for this admission?: Yes Plan: Hypoxia and respiratory distress appear to have preceded the episode which was likely VT. He has remained asymptomatic and without recurrence of the dysrhythmia since admission. 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 I agree with prior recommendations by Dr. Shields as follows: -Reluctant to use anti-arrhythmic especially Amiodarone given poor lung and hepatic status. -Not a candidate for ICD at this point given his poor functional status, poor muscle mass and likely limited life expectancy given multiple medical problems and evidence of multiple organ dysfunction. -A suitable but not ideal option would to pursue a wearable defibrillator until: 1. Functional status improves 2. He becomes better nourished with improved muscle mass-lack of healing and susceptibility to infection affter ICD implant being concerns -SICD is a bulky device and risks device erosion. 3. Chest tube is removed 4. [place] scenario would require permanent HD access on right chest wall so we can use left sided access for transvenous ICD 5. There is improvement in liver function and overall health. Given the fact that he has remained hemodynamically stable and without recurrence of his ventricular tachycardia as well as the above issues, we will sign off the case for now. Please call me directly at [phone] once the patient is ready to be discharged to reassess placement of a LifeVest. (4) CKD (chronic kidney disease) requiring chronic dialysis Is this a current diagnosis for this admission?: Yes Plan: He is now followed by nephrology.
[2020-06-16] MEDS: MORPHINE SULFATE 10 MG/ML INJ IV PRN (13:10)
[2020-06-16] MEDS: HEPARIN SODIUM,PORCINE/D5W 25,000 UNIT/250 ML RTUINJ IV PRN (13:16)
--- NOTE | 2020-06-16 14:02 | PDOC PROGRESS REPORT ---
Subjective Progress Note for:: 06/16/20 Subjective:: No adverse events overnight. No new complaints. Vital signs been stable. His chest tube output has been minimal and so he was put over to a waterseal today. He still not eating very much. Reason For Visit: V TACHYCARDIA Physical Exam Vital Signs: Temp Pulse Resp BP Pulse Ox 97.7 F 93 14 91/75 L 98 06/16/20 07:38 06/16/20 07:55 06/16/20 07:55 06/16/20 07:38 06/16/20 07:55 Intake & Output 06/15/20 06/16/20 06/17/20 06:59 06:59 06:59 Intake Total 828 570 250 Output Total 260 2120 Balance 568 -1550 250 Weight 65.2 kg 61.2 kg General appearance: PRESENT: no acute distress, well-developed, well-nourished Head exam: PRESENT: atraumatic, normocephalic Eye exam: PRESENT: conjunctiva pink Mouth exam: PRESENT: moist Respiratory exam: PRESENT: clear to auscultation [place], crackles - Crackles through lung [place] around chest tube as expected. ABSENT: rales, wheezes Cardiovascular exam: PRESENT: RRR. ABSENT: diastolic murmur, rubs, systolic murmur GI/Abdominal exam: PRESENT: Hypoactive bowel sounds, soft. ABSENT: distended, guarding, mass, organolmegaly, rebound, tenderness Neurological exam: PRESENT: alert, awake, oriented to person, oriented to place Psychiatric exam: PRESENT: Flat affect Skin exam: PRESENT: dry, intact, warm Results Laboratory Results: 06/15/20 19:52 06/15/20 05:05 06/15/20 06/16/20 19:52 00:04 WBC 11.0 H RBC 4.83 Hgb 13.9 Hct 42.7 MCV 88 MCH 28.7 MCHC 32.5 RDW 19.8 H Plt Count 197 Urine Color AIDE Urine Appearance SLIGHTLY-CLOUDY Urine pH 5.0 Ur Specific [place] 1.017 Urine Protein NEGATIVE Urine Glucose (UA) NEGATIVE Urine Ketones NEGATIVE Urine Blood NEGATIVE Urine Nitrite NEGATIVE Ur Leukocyte Esterase NEGATIVE Urine WBC (Auto) 10 Urine RBC (Auto) 5 06/07/20 06/07/20 06/07/20 12:24 12:24 15:08 Creatine Kinase 34 L Troponin I 0.035 0.041 NT-Pro-B Natriuret Pep 06/07/20 06/07/20 06/08/20 16:45 22:01 05:25 Creatine Kinase 35 L 40 L 35 L Troponin I NT-Pro-B Natriuret Pep 06/08/20 05:25 Creatine Kinase Troponin I NT-Pro-B Natriuret Pep [id number] H Impressions: Head CT 06/07/20 13:02 IMPRESSION: Stable CT of the brain with bifrontal encephalomalacia. No acute intracranial event. EVIDENCE OF ACUTE STROKE: NO. Abdomen/Pelvis CT 06/07/20 13:03 IMPRESSION: There is a large amount of ascites. 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 No other significant finding. Thoracentesis Ultrasound 06/08/20 00:00 IMPRESSION: SUCCESSFUL THORACENTESIS AND CHEST TUBE PLACEMENT USING ULTRASOUND GUIDANCE. Chest CT 06/09/20 00:00 IMPRESSION: 1. RIGHT-SIDED PIGTAIL PLEURAL CATHETER WITH INTERVAL DECREASE IN THE PLEURAL EFFUSION. THERE IS NOW A MILD TO MODERATE RIGHT PNEUMOTHORAX. THE CATHETER WILL BE READJUSTED. 2. MODERATE LEFT PLEURAL EFFUSION, UNCHANGED. DIFFUSE AIRSPACE DISEASE UNCHANGED. Chest X-Ray 06/16/20 06:00 IMPRESSION: No significant change. No pneumothorax. Assessment and Plan - Diagnosis (1) Ventricular tachyarrhythmia Is this a current diagnosis for this admission?: Yes Plan: Resolved. Now just being treated for his atrial fibrillation. He is on Coumadin with a heparin drip bridge. (2) DEMETRIUS (acute kidney injury) Is this a current diagnosis for this admission?: Yes Plan: He is getting dialysis, will likely have to continue dialysis as an outpatient. Being followed by nephrology. (3) Ascites Qualifiers: Ascites type: other type Qualified Code(s): R18.8 - Other ascites Is this a current diagnosis for this admission?: Yes Plan: KUB ordered due to decreased bowel sounds (4) Atrial fibrillation Qualifiers: Atrial fibrillation type: longstanding persistent Qualified Code(s): I48.11 - Longstanding persistent atrial fibrillation Is this a current diagnosis for this admission?: Yes Plan: On metoprolol for rate control, on warfarin with heparin bridge (5) COPD (chronic obstructive pulmonary disease) Qualifiers: COPD type: unspecified COPD Is this a current diagnosis for this admission?: Yes Plan: Not acutely exacerbated (6) Hydrothorax Is this a current diagnosis for this admission?: Yes Plan: Status post chest tube placement with drainage (7) Pneumothorax, iatrogenic Is this a current diagnosis for this admission?: Yes Plan: He has had a chemical pleurodesis and there was no evidence of reaccumulation of fluid. Hopefully he can have the chest tube removed tomorrow. - Time Time Spent with patient: 25-34 minutes Anticipated discharge: SNF Within: Other
--- NOTE | 2020-06-16 14:10 | RADIOLOGY REPORT (SQ) ---
EXAM DESCRIPTION: KUB/ABDOMEN (SINGLE VIEW) IMAGES COMPLETED DATE/TIME: 06/16/2020 1:58 pm REASON FOR STUDY: vomiting COMPARISON: 08/09/2019 NUMBER OF VIEWS: One view. TECHNIQUE: Supine radiographic image of the abdomen acquired. LIMITATIONS: None. FINDINGS: BOWEL GAS PATTERN: Some dilated gas-filled loops of small bowel are present. CALCIFICATIONS: No suspicious calcifications. SOFT TISSUES: No gross mass or suggestion of organomegaly. HARDWARE: None in the abdomen. BONES: No acute fracture. No worrisome bone lesions. OTHER: No other significant finding. IMPRESSION: Partial small bowel obstruction. TECHNICAL DOCUMENTATION: JOB ID: [id number] 2010 [employer]- All Rights Reserved Reading location - IP/workstation name: [email or web address]
[2020-06-16] MEDS ORDERED: ACETAMINOPHEN 325 MG TABLET PO PRN (14:16)
[2020-06-16] MEDS ORDERED: ACETAMINOPHEN 325 MG TABLET NG PRN (15:11)
[2020-06-16] MEDS ORDERED: PHARMACY COMMUNICATION ORDER MC NR (15:15)
--- NOTE | 2020-06-16 16:40 | RADIOLOGY REPORT (SQ) ---
EXAM DESCRIPTION: KUB/ABDOMEN (SINGLE VIEW) IMAGES COMPLETED DATE/TIME: 06/16/2020 3:46 pm REASON FOR STUDY: Check Placement of NG Tube COMPARISON: Earlier the same day. NUMBER OF VIEWS: One view. TECHNIQUE: Supine radiographic image of the abdomen acquired. LIMITATIONS: None. FINDINGS: Nasogastric tube tip overlies the stomach. The appearance is otherwise unchanged. IMPRESSION: Nasogastric tube in the stomach. TECHNICAL DOCUMENTATION: JOB ID: [id number] 2010 [employer]- All Rights Reserved Reading location - IP/workstation name: [email or web address]
[2020-06-16] MEDS: PANTOPRAZOLE SODIUM 40 MG PACKET.DR NG SCH (17:16)
--- NOTE | 2020-06-16 19:25 | RADIOLOGY REPORT (SQ) ---
EXAM DESCRIPTION: KUB/ABDOMEN (SINGLE VIEW) IMAGES COMPLETED DATE/TIME: 06/16/2020 7:14 pm REASON FOR STUDY: ng tube COMPARISON: 06/16/2020 NUMBER OF VIEWS: One view. TECHNIQUE: Supine radiographic image of the abdomen acquired. LIMITATIONS: None. FINDINGS: BOWEL GAS PATTERN: Dilated gas-filled loops of small bowel are once again seen. CALCIFICATIONS: No suspicious calcifications. SOFT TISSUES: No gross mass or suggestion of organomegaly. HARDWARE: NG tube is been extended farther into the stomach. Right thoracotomy tube. BONES: No acute fracture. No worrisome bone lesions. OTHER: Patchy opacification in the right lung base. IMPRESSION: Atelectasis versus infiltrate right base. The NG tube has been extended farther into th e stomach. Small bowel obstruction. TECHNICAL DOCUMENTATION: JOB ID: [id number] 2010 [employer]- All Rights Reserved Reading location - IP/workstation name: [email or web address]
[2020-06-16] MEDS: METOPROLOL TARTRATE 50 MG TABLET NG SCH (22:43)
[2020-06-16] MEDS: MIDODRINE HCL 5 MG TABLET NG SCH (22:44)
[2020-06-16] MEDS: WARFARIN SODIUM 3 MG TABLET NG SCH (22:44)
[2020-06-17] MEDS: IPRATROPIUM/ALBUTEROL 0.5-2.5 MG/3 ML AMPUL NEB SCH ×4 (02:16→20:03)
[2020-06-17] MEDS ORDERED: HEPARIN SOD (PORCINE) 1,000 UNIT/ML 10 ML VIAL IV PRN (05:00)
[2020-06-17] MEDS: PANTOPRAZOLE SODIUM 40 MG PACKET.DR NG SCH ×2 (06:22→17:16)
[2020-06-17 08:16] LABS: ABSOLUTE BASOPHILS # (AUTO) 0.1 10^3/uL (0.0-0.2); ABSOLUTE LYMPHOCYTES (AUTO) 0.3 10^3/uL (0.5-4.7); ABSOLUTE MONOCYTES (AUTO) 0.7 10^3/uL (0.1-1.4); ABSOLUTE NEUT (AUTO) 4.8 10^3/uL (1.7-8.2); BASOPHILS % (AUTO) 0.9 % (0-2); EOSINOPHILS % (AUTO) 0.4 % (0-6); HEMOGLOBIN 13.2 g/dL (13.5-17.0); LYMPHOCYTES % (AUTO) 5.2 % (13-45); MEAN CORPUSCULAR HEMOGLOBIN 28.7 pg (27.0-33.4); MEAN CORPUSCULAR HGB CONC 32.9 g/dL (32.0-36.0); MEAN CORPUSCULAR VOLUME 87 fl (80-97); MONOCYTES % (AUTO) 12.5 % (3-13); PLATELET COUNT 163 10^3/uL (150-450); RED BLOOD COUNT 4.59 10^6/uL (4.35-5.55); RED CELL DISTRIBUTION WIDTH 19.1 % (11.5-14.0); TOTAL CELLS COUNTED % (AUTO) 100 %
[2020-06-17 08:25] LABS: INTERNATIONAL RATION (INR) 1.52; PROTHROMBIN TIME 18.5 SEC (11.4-15.4)
[2020-06-17 08:26] LABS: PARTIAL THROMBOPLASTIN TIME 51.6 SEC (23.5-35.8)
[2020-06-17 08:38] LABS: ANION GAP 13 (5-19); BLOOD UREA NITROGEN 48 mg/dL (7-20); CALCIUM 9.1 mg/dL (8.4-10.2); CARBON DIOXIDE 24 mmol/L (22-30); CHLORIDE 91 mmol/L (98-107); GLUCOSE 90 mg/dL (75-110); POTASSIUM 4.5 mmol/L (3.6-5.0)
--- NOTE | 2020-06-17 08:38 | PDOC PROGRESS REPORT ---
Subjective Progress Note for:: 06/17/20 Reason For Visit: V TACHYCARDIA Patient had uneventful night. Negligible drainage from chest tube. Chest tube to waterseal. Physical Exam Vital Signs: Temp Pulse Resp BP Pulse Ox 97.4 F 91 17 81/58 L 100 06/17/20 07:52 06/17/20 07:52 06/17/20 07:52 06/17/20 07:52 06/17/20 07:52 Intake & Output 06/16/20 06/17/20 06/18/20 06:59 06:59 06:59 Intake Total 570 250 Output Total 2120 510 5 Balance -1550 -260 -5 Weight 61.2 kg 60.7 kg General appearance: PRESENT: no acute distress Respiratory exam: PRESENT: other - Right chest tube exposed, removed uneventfully with sterile Xeroform and 4 x 4's applied. Results Laboratory Results: 06/07/20 06/07/20 06/07/20 12:24 12:24 15:08 Creatine Kinase 34 L Troponin I 0.035 0.041 NT-Pro-B Natriuret Pep 06/07/20 06/07/20 06/08/20 16:45 22:01 05:25 Creatine Kinase 35 L 40 L 35 L Troponin I NT-Pro-B Natriuret Pep 06/08/20 05:25 Creatine Kinase Troponin I NT-Pro-B Natriuret Pep [id number] H Impressions: Head CT 06/07/20 13:02 IMPRESSION: Stable CT of the brain with bifrontal encephalomalacia. No acute intracranial event. EVIDENCE OF ACUTE STROKE: NO. Abdomen/Pelvis CT 06/07/20 13:03 IMPRESSION: There is a large amount of ascites. 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 No other significant finding. Thoracentesis Ultrasound 06/08/20 00:00 IMPRESSION: SUCCESSFUL THORACENTESIS AND CHEST TUBE PLACEMENT USING ULTRASOUND GUIDANCE. Chest CT 06/09/20 00:00 IMPRESSION: 1. RIGHT-SIDED PIGTAIL PLEURAL CATHETER WITH INTERVAL DECREASE IN THE PLEURAL EFFUSION. THERE IS NOW A MILD TO MODERATE RIGHT PNEUMOTHORAX. THE CATHETER WILL BE READJUSTED. 2. MODERATE LEFT PLEURAL EFFUSION, UNCHANGED. DIFFUSE AIRSPACE DISEASE UNCHANGED. Chest X-Ray 06/16/20 06:00 IMPRESSION: No significant change. No pneumothorax. KUB X-Ray 06/16/20 15:05 IMPRESSION: Nasogastric tube in the stomach. Assessment & Plan - Diagnosis (1) Hydrothorax Is this a current diagnosis for this admission?: Yes Plan: Impression: Patient doing satisfactorily 4 days following right talc pleurodesis; chest tube removed at bedside this a.m. , tolerated well Plan: 1. Leave dressing on for 72 hours, then discontinue 2. Patient can follow-up with [place] [facility] in 1 to 2 weeks for suture removal. 3. Expect to see persisting areas of opacification right chest secondary to pleurodesis. 4. Surgery will sign off; please reconsult if clinically indicated. (2) Ascites Qualifiers: Ascites type: other type Qualified Code(s): R18.8 - Other ascites Is this a current diagnosis for this admission?: Yes (3) Atrial fibrillation Qualifiers: Atrial fibrillation type: longstanding persistent Qualified Code(s): I48.11 - Longstanding persistent atrial fibrillation Is this a current diagnosis for this admission?: Yes (4) CHF exacerbation Qualifiers: Heart failure type: unspecified Qualified Code(s): I50.9 - Heart failure, unspecified Is this a current diagnosis for this admission?: Yes
[2020-06-17 08:47] LABS: ANISOCYTOSIS 2+; PLATELET COMMENT ADEQUATE; POIKILOCYTOSIS SLIGHT; SCHISTOCYTES SLIGHT; TARGET CELLS SLIGHT; TEAR DROP CELLS SLIGHT
[2020-06-17] MEDS: MIDODRINE HCL 5 MG TABLET NG SCH ×3 (09:07→22:31)
[2020-06-17] MEDS: HEPARIN SOD (PORCINE) 1,000 UNIT/ML 10 ML VIAL IV PRN ×4 (09:11→17:17)
[2020-06-17] MEDS: HEPARIN SODIUM,PORCINE/D5W 25,000 UNIT/250 ML RTUINJ IV PRN ×2 (09:42→09:54)
--- NOTE | 2020-06-17 11:19 | PDOC PROGRESS REPORT ---
Subjective Progress Note for:: 06/17/20 Subjective:: Patient has an NG tube placement yesterday with about 400 mL of gastric contents obtained. His chest tube was removed this morning by Dr. Mendes due to very low drainage. I am seeing him this morning during dialysis. He denies any complaints and states that he is doing fine. He denies any chest pains no shortness of breath but just does not want the NG tube that he has. He is tolerating dialysis except for lowish blood pressure as he usually does. He had midodrine given 1 hour prior to dialysis. Reason For Visit: V TACHYCARDIA Physical Exam Vital Signs: Temp Pulse Resp BP Pulse Ox 97.4 F 91 17 81/58 L 100 06/17/20 07:52 06/17/20 07:52 06/17/20 07:52 06/17/20 07:52 06/17/20 07:52 Intake & Output 06/16/20 06/17/20 06/18/20 06:59 06:59 06:59 Intake Total 570 250 210 Output Total 2120 510 5 Balance -1550 -260 205 Weight 61.2 kg 60.7 kg Vital signs on dialysis: Blood pressure 92/57, blood flow rate of 250 mL/min and dialysate flow rate of 600 mL/min. Exam: General appearance: PRESENT: no acute distress, cooperative, fairly developed fairly nourished Head exam: PRESENT: atraumatic, normocephalic, NG tube in place Eye exam: PRESENT: conjunctiva pink, PERRLA. ABSENT: scleral icterus Neck exam: ABSENT: JVD Respiratory exam: PRESENT: Diminished breath sounds. ABSENT: crackles, rales, rhonchi, unlabored, wheezes Cardiovascular exam: PRESENT: Irregular rate rhythm -+S1, +S2. ABSENT: diastolic murmur, systolic murmur GI/Abdominal exam: PRESENT: normal bowel sounds, soft. ABSENT: guarding, mass, tenderness Extremities exam: Grade 1 bilateral lower extremity pitting edema Neurological exam: PRESENT: alert, awake, oriented to person, place and time. Skin exam: PRESENT: dry, warm, Cardiovascular exam: PRESENT: +S1, +S2 GI/Abdominal exam: PRESENT: ascites, distended, normal bowel sounds, soft. ABSENT: firm, guarding, organomegaly Results Laboratory Results: 06/17/20 08:01 06/17/20 08:01 06/17/20 06/17/20 08:01 08:01 WBC 6.0 RBC 4.59 Hgb 13.2 L Hct 40.0 MCV 87 MCH 28.7 MCHC 32.9 RDW 19.1 H Plt Count 163 Seg Neutrophils % 81.0 H Sodium 128.3 L Potassium 4.5 Chloride 91 L Carbon Dioxide 24 Anion Gap 13 BUN 48 H Creatinine 2.93 H Est GFR ( Amer) 27 L Glucose 90 Calcium 9.1 06/07/20 06/07/20 06/07/20 12:24 12:24 15:08 Creatine Kinase 34 L Troponin I 0.035 0.041 NT-Pro-B Natriuret Pep 06/07/20 06/07/20 06/08/20 16:45 22:01 05:25 Creatine Kinase 35 L 40 L 35 L Troponin I NT-Pro-B Natriuret Pep 06/08/20 05:25 Creatine Kinase Troponin I NT-Pro-B Natriuret Pep [id number] H Impressions: Head CT 06/07/20 13:02 IMPRESSION: Stable CT of the brain with bifrontal encephalomalacia. No acute intracranial event. EVIDENCE OF ACUTE STROKE: NO. Abdomen/Pelvis CT 06/07/20 13:03 IMPRESSION: There is a large amount of ascites. 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 No other significant finding. Thoracentesis Ultrasound 06/08/20 00:00 IMPRESSION: SUCCESSFUL THORACENTESIS AND CHEST TUBE PLACEMENT USING ULTRASOUND GUIDANCE. Chest CT 06/09/20 00:00 IMPRESSION: 1. RIGHT-SIDED PIGTAIL PLEURAL CATHETER WITH INTERVAL DECREASE IN THE PLEURAL EFFUSION. THERE IS NOW A MILD TO MODERATE RIGHT PNEUMOTHORAX. THE CATHETER WILL BE READJUSTED. 2. MODERATE LEFT PLEURAL EFFUSION, UNCHANGED. DIFFUSE AIRSPACE DISEASE UNCHANGED. Chest X-Ray 06/16/20 06:00 IMPRESSION: No significant change. No pneumothorax. KUB X-Ray 06/16/20 15:05 IMPRESSION: Nasogastric tube in the stomach. Assessment & Plan - Diagnosis (1) Pleural effusion Is this a current diagnosis for this admission?: Yes Plan: Status post thoracentesis, 06/08 with initial chest tube placement. Chest tube placement revised with pleurodesis on Wednesday 06/13. Chest tube removed today. (2) CHF (congestive heart failure) Qualifiers: Heart failure chronicity: chronic Is this a current diagnosis for this admission?: Yes Plan: EF of 25 to 30% with moderately reduced right ventricular systolic function. Patient has cardiomyopathy. Cardiology on board. Recommendation includes placement of implantable defibrillator but uncertain if the patient can tolerate the procedure. (3) ESRD (end stage renal disease) on dialysis Is this a current diagnosis for this admission?: Yes Plan: Patient's urine output is continues to be minimal despite Lasix. With evidence of fluid overload including pleural effusion, ascites, CHF and edema patient was reinitiated to renal replacement therapy which he most likely will stay on. I informed the patient about this and he seems to be understanding and agreeable with it. We will do dialysis today for 2.5 hours, using the patient's PermCath, with 2 po tassium bath, blood flow rate of 250 mL per minute, dialysate flow rate of 600 mL per minute, ultrafiltration 0.5L as tolerated as the patient is currently hypotensive, no heparin and no Procrit. Patient is being closely monitored throughout dialysis treatment especially with hypotension. I recommend changing the furosemide to oral once the patient can take his meds orally after NG tube is removed. (4) Ventricular tachyarrhythmia Is this a current diagnosis for this admission?: Yes Plan: Per cardiology. (5) Hypotension Qualifiers: Hypotension type: idiopathic hypotension Qualified Code(s): I95.0 - Idiopathic hypotension Is this a current diagnosis for this admission?: Yes Plan: Likely secondary to poor cardiac function and cardiomyopathy. Currently on midodrine. Adrenal insufficiency has been previously ruled out during previous admission. (6) Hyponatremia Is this a current diagnosis for this admission?: Yes Plan: Chronic and stable. Secondary to hypervolemic state with CHF and ESRD. (7) Atrial fibrillation Qualifiers: Atrial fibrillation type: longstanding persistent Qualified Code(s): I48.11 - Longstanding persistent atrial fibrillation Is this a current diagnosis for this admission?: Yes (8) Ascites Qualifiers: Ascites type: other type Qualified Code(s): R18.8 - Other ascites Is this a current diagnosis for this admission?: Yes (9) Pneumothorax, iatrogenic Is this a current diagnosis for this admission?: Yes Plan: Post chest tube placement. (10) H/O mitral valve replacement with mechanical valve Is this a current diagnosis for this admission?: Yes Plan: Currently on heparin drip. - Time Time with patient: 15-25 minutes
[2020-06-17] MEDS: FLUTICASONE NASAL SPRAY 50 MCG/SPRY 120 SPRAY/16 GM NASL SCH (13:46)
[2020-06-17] MEDS: SPIRONOLACTONE 25 MG TABLET NG SCH (13:46)
[2020-06-17] MEDS: METOPROLOL TARTRATE 50 MG TABLET NG SCH ×2 (13:47→22:31)
[2020-06-17] MEDS: FUROSEMIDE INJ/PF 20 MG/2 ML SDV IV SCH ×2 (13:47→22:30)
--- NOTE | 2020-06-17 17:35 | RADIOLOGY REPORT (SQ) ---
EXAM DESCRIPTION: CT ABD/PELVIS ORAL ONLY IMAGES COMPLETED DATE/TIME: 06/17/2020 4:00 pm REASON FOR STUDY: ileus. COMPARISON: Abdomen KUB, 06/16/2020.Thoracentesis, 06/08/2020. CT chest, 06/09/2020. CT chest, abdome n and pelvis, 06/07/2020. CT abdomen and pelvis 05/19/2019. Chest radiograph, 06/16/2020, 06/14/2020. TECHNIQUE: CT scan of the abdomen and pelvis performed without intravenous or oral contrast. Images reviewed with lung, soft tissue, and bone windows. Reconstructed coronal and sagittal MPR images revi ewed. All images stored on PACS. All CT scanners at this facility use dose modulation, iterative reconstruction, and/or weight based d osing when appropriate to reduce radiation dose to as low as reasonably achievable (ALARA). [facility]: Dose Right [facility]: CareDose [facility]: Dose Right [facility]: Teradose 4D [facility]: Smart Technologies RADIATION DOSE: CT Rad equipment meets quality standard of care and radiation dose reduction techniq ues were employed. CTDIvol: 5.4 mGy. DLP: 266 mGy-cm.mGy. LIMITATIONS: None. FINDINGS: LOWER CHEST: Loculated right hydropneumothorax has decreased gas component since previous examination. Small to moderate left effusion not significantly changed. Compressive atelectasis at the lung bases. Esophagogastric tube extends into the stomach. NON-CONTRASTED LIVER, SPLEEN, ADRENALS: The liver has a mildly nodular contour, nonspecific. Normal size and position. Evaluation of the parenchyma is limited without IV contrast. Spleen has normal s ize. No adrenal mass. PANCREAS: No masses. No peripancreatic inflammatory changes. GALLBLADDER: No identified stones by CT criteria. No inflammatory changes to suggest cholecystitis. RIGHT KIDNEY AND URETER: No suspicious masses. Assessment limited by lack of IV contrast. No signif icant calcifications. No hydronephrosis or hydroureter. LEFT KIDNEY AND URETER: Mild asymmetric atrophy of the left kidney is stable. No significant calcif ications. No hydronephrosis or hydroureter. AORTA AND RETROPERITONEUM: No aneurysm. No retroperitoneal masses or adenopathy. BOWEL AND PERITONEAL CAVITY: There are dilated loops of proximal small bowel measuring up to 3.5 cm d iameter in the upper left abdomen. There is a transition of small bowel caliber in the left mid abdo men with small amount of enteric contrast passing slightly distal to this. Distal small bowel is dec ompressed. Colonic diverticulosis without evidence of diverticulitis. No significant inflammatory c hange. Moderate amount of ascites, decreased since previous. No pneumoperitoneum. APPENDIX: Not visualized. PELVIS, BLADDER, AND ABDOMINAL WALL:The urinary bladder is markedly distended. No pelvic adenopathy. Diffuse subcutaneous edema. BONES: No suspicious bone lesions. OTHER: No other significant finding. IMPRESSION: 1. Small bowel obstruction with transition point in the left mid abdomen. This may be a high-grade p artial obstruction. Distal small bowel and colon are decompressed. 2. Marked urinary bladder distention, suggestive of bladder outlet obstruction. Clinical correlation is recommended. 3. Loculated right hydropneumothorax and small left pleural effusion, not significantly changed. Com pressive atelectasis at the lung bases. 4. Moderate ascites, slightly decreased from previous examination. 5. Mildly nodular contour of the liver, nonspecific however could indicate underlying hepatic cirrhos is. Clinical correlation is with recommended. 6. Diffuse subcutaneous edema, suggestive of fluid overload. 7. Colonic diverticulosis without evidence of diverticulitis. COMMENT: Findings discussed with Ariela BLAND caring for the patient on 06/17/2020 at 1729 hours. Quality ID # [id number]: Final reports with documentation of one or more dose reduction techniques (e.g., Au tomated exposure control, adjustment of the mA and/or kV according to patient size, use of iterative reconstruction technique) TECHNICAL DOCUMENTATION: JOB ID: [id number] 2010 [employer]- All Rights Reserved Reading location - IP/workstation name: [email or web address]
--- NOTE | 2020-06-17 18:03 | PDOC PROGRESS REPORT ---
Subjective Progress Note for:: 06/17/20 Subjective:: He pulled out his NG tube overnight but we were able to get another one put in. He had hemodialysis this morning. Surgery pulled his chest tube today. Blood pressures were a little soft after dialysis so we gave him some IV fluids. Reason For Visit: V TACHYCARDIA Physical Exam Vital Signs: Temp Pulse Resp BP Pulse Ox 97.4 F 79 16 81/58 L 100 06/17/20 07:52 06/17/20 14:00 06/17/20 13:24 06/17/20 07:52 06/17/20 13:24 Intake & Output 06/16/20 06/17/20 06/18/20 06:59 06:59 06:59 Intake Total 916 896 3358 Output Total 2120 510 1005 Balance -1550 -260 295 Weight 61.2 kg 60.7 kg General appearance: PRESENT: no acute distress, well-developed, well-nourished Head exam: PRESENT: atraumatic, normocephalic Eye exam: PRESENT: conjunctiva pink Mouth exam: PRESENT: moist Respiratory exam: PRESENT: clear to auscultation [place]. ABSENT: rales, wheezes Cardiovascular exam: PRESENT: RRR. ABSENT: diastolic murmur, rubs, systolic murmur GI/Abdominal exam: PRESENT: Hypoactive bowel sounds, soft. ABSENT: distended, guarding, mass, organolmegaly, rebound, tenderness Neurological exam: PRESENT: alert, awake, oriented to person, oriented to place Psychiatric exam: PRESENT: Flat affect Skin exam: PRESENT: dry, intact, warm Results Laboratory Results: 06/17/20 08:01 06/17/20 08:01 06/17/20 06/17/20 08:01 08:01 WBC 6.0 RBC 4.59 Hgb 13.2 L Hct 40.0 MCV 87 MCH 28.7 MCHC 32.9 RDW 19.1 H Plt Count 163 Seg Neutrophils % 81.0 H Sodium 128.3 L Potassium 4.5 Chloride 91 L Carbon Dioxide 24 Anion Gap 13 BUN 48 H Creatinine 2.93 H Est GFR ( Amer) 27 L Glucose 90 Calcium 9.1 06/07/20 06/07/20 06/07/20 12:24 12:24 15:08 Creatine Kinase 34 L Troponin I 0.035 0.041 NT-Pro-B Natriuret Pep 06/07/20 06/07/20 06/08/20 16:45 22:01 05:25 Creatine Kinase 35 L 40 L 35 L Troponin I NT-Pro-B Natriuret Pep 06/08/20 05:25 Creatine Kinase Troponin I NT-Pro-B Natriuret Pep 17074 H Impressions: Head CT 06/07/20 13:02 IMPRESSION: Stable CT of the brain with bifrontal encephalomalacia. No acute intracranial event. EVIDENCE OF ACUTE STROKE: NO. Thoracentesis Ultrasound 06/08/20 00:00 IMPRESSION: SUCCESSFUL THORACENTESIS AND CHEST TUBE PLACEMENT USING ULTRASOUND GUIDANCE. Chest CT 06/09/20 00:00 IMPRESSION: 1. RIGHT-SIDED PIGTAIL PLEURAL CATHETER WITH INTERVAL DECREASE IN THE PLEURAL EFFUSION. THERE IS NOW A MILD TO MODERATE RIGHT PNEUMOTHORAX. THE CATHETER WILL BE READJUSTED. 2. MODERATE LEFT PLEURAL EFFUSION, UNCHANGED. DIFFUSE AIRSPACE DISEASE UNCHANGED. Chest X-Ray 06/16/20 06:00 IMPRESSION: No significant change. No pneumothorax. KUB X-Ray 06/16/20 15:05 IMPRESSION: Nasogastric tube in the stomach. Abdomen/Pelvis CT 06/17/20 00:00 IMPRESSION: 1. Small bowel obstruction with transition point in the left mid abdomen. This may be a high-grade partial obstruction. Distal small bowel and colon are decompressed. 2. Marked urinary bladder distention, suggestive of bladder outlet obstruction. Clinical correlation is recommended. 3. Loculated right hydropneumothorax and small left pleural effusion, not significantly changed. Compressive atelectasis at the lung bases. 4. Moderate ascites, slightly decreased from previous examination. 5. Mildly nodular contour of the liver, nonspecific however could indicate underlying hepatic cirrhosis. Clinical correlation is with recommended. 6. Diffuse subcutaneous edema, suggestive of fluid overload. 7. Colonic diverticulosis without evidence of diverticulitis. Assessment and Plan - Diagnosis (1) Ventricular tachyarrhythmia Is this a current diagnosis for this admission?: Yes Plan: Resolved. Now just being treated for his atrial fibrillation. He is on Coumadin with a heparin drip bridge. (2) DEMETRIUS (acute kidney injury) Is this a current diagnosis for this admission?: Yes Plan: He is getting dialysis, will likely have to continue dialysis as an outpatient. Being followed by nephrology. (3) Ascites Qualifiers: Ascites type: due to alcoholic cirrhosis Qualified Code(s): K70.31 - Alcoholic cirrhosis of liver with ascites Is this a current diagnosis for this admission?: Yes Plan: Monitoring for fluid overload, seems to be fairly euvolemic at this time (4) Atrial fibrillation Qualifiers: Atrial fibrillation type: longstanding persistent Qualified Code(s): I48.11 - Longstanding persistent atrial fibrillation Is this a current diagnosis for this admission?: Yes Plan: On metoprolol for rate control, on warfarin with heparin bridge (5) COPD (chronic obstructive pulmonary disease) Qualifiers: COPD type: unspecified COPD Qualified Code(s): J44.9 - Chronic obstructive pulmonary disease, unspecified Is this a current diagnosis for this admission?: Yes Plan: Not acutely exacerbated (6) Hydrothorax Is this a current diagnosis for this admission?: Yes Plan: Chest tube removed today by surgery, follow-up in the outpatient setting in 1 to 2 weeks. (7) Pneumothorax, iatrogenic Is this a current diagnosis for this admission?: Yes Plan: He has had a chemical pleurodesis and there was no evidence of reaccumulation of fluid. (8) Small bowel obstruction Is this a current diagnosis for this admission?: Yes Plan: Appears to be a high-grade partial obstruction on CT with a transition point in the left mid abdomen. NG tube decompression. We will attempt to manage conservatively. Surgery signed off the case because of the chest tube, but I w ill let them know about this issue so they are aware. - Time Time Spent with patient: 25-34 minutes Anticipated Discharge [facility]position: [facility] Anticipated Discharge: Other
[2020-06-17] MEDS: RINGERS SOLUTION,LACTATED 1,000 ML IV PRN (18:45)
[2020-06-17 20:33] LABS: APPEARANCE,URINE CLEAR; BILIRUBIN,URINE NEGATIVE (NEGATIVE); GLUCOSE, URINE NEGATIVE (NEGATIVE); KETONES,URINE NEGATIVE (NEGATIVE); LEUKOCYTE ESTERASE,URINE NEGATIVE (NEGATIVE); NITRITE,URINE NEGATIVE (NEGATIVE); PROTEIN,URINE NEGATIVE (NEGATIVE); URINE SPECIFIC GRAVITY 1.014; UROBILINOGEN,URINE NEGATIVE mg/dL (<2.0)
[2020-06-17 20:37] LABS: COLOR,URINE YELLOW
[2020-06-17] MEDS: WARFARIN SODIUM 3 MG TABLET NG SCH (22:30)
[2020-06-18 00:36] LABS: HEPATITIS C QUANTITATION HCV Not Detected IU/mL (.)
[2020-06-18] MEDS: IPRATROPIUM/ALBUTEROL 0.5-2.5 MG/3 ML AMPUL NEB SCH ×4 (02:08→20:11)
[2020-06-18 02:50] LABS: INTERNATIONAL RATION (INR) 2.36; PROTHROMBIN TIME 26.2 SEC (11.4-15.4)
[2020-06-18] MEDS: RINGERS SOLUTION,LACTATED 1,000 ML IV PRN (04:33)
[2020-06-18] MEDS: PANTOPRAZOLE SODIUM 40 MG PACKET.DR NG SCH ×2 (06:20→18:20)
[2020-06-18] MEDS: MIDODRINE HCL 5 MG TABLET NG SCH ×3 (06:21→22:11)
[2020-06-18] MEDS: HEPARIN SODIUM,PORCINE/D5W 25,000 UNIT/250 ML RTUINJ IV PRN (06:23)
[2020-06-18] MEDS: FLUTICASONE NASAL SPRAY 50 MCG/SPRY 120 SPRAY/16 GM NASL SCH (09:19)
[2020-06-18] MEDS: SPIRONOLACTONE 25 MG TABLET NG SCH (09:20)
[2020-06-18] MEDS: FUROSEMIDE INJ/PF 20 MG/2 ML SDV IV SCH ×2 (09:24→22:12)
[2020-06-18] MEDS: METOPROLOL TARTRATE 50 MG TABLET NG SCH ×2 (09:26→22:11)
--- NOTE | 2020-06-18 19:01 | PDOC PROGRESS REPORT ---
Subjective Progress Note for:: 06/18/20 Subjective:: Pavel Lepe 59-year-old male past medical history of CHF ejection fraction of 20 to 25%, status post leadless permanent pacemaker, atrial fibrillation on Coumadin, recurrent pleural effusion and pneumothorax, mitral valve replacement at [place] which was complicated patient had to stay in the hospital for 4 months. Postoperatively patient had a PEA cardiac arrest and had renal failure and was discharged on hemodialysis was brought to ED by EMS after being found unresponsive and noted to be in V. tach, was given a shock of 100 J successful. 06/18/2020. No acute events overnight. Chest tube is been removed. Complaining of left-sided chest soreness and back pain. Any fever, chills, nausea, vomiting. NG tube in place. Tolerating ice chips. Has not had a bowel movement. Reason For Visit: V TACHYCARDIA Physical Exam Vital Signs: Temp Pulse Resp BP Pulse Ox 97.4 F 82 16 83/55 L 98 06/18/20 12:18 06/18/20 14:00 06/18/20 13:55 06/18/20 12:18 06/18/20 13:55 Intake & Output 06/17/20 06/18/20 06/19/20 06:59 06:59 06:59 Intake Total 250 2440 Output Total 510 2430 500 Balance -260 10 -500 Weight 60.7 kg 60.7 kg 60.7 kg General appearance: PRESENT: no acute distress, well-developed, well-nourished Head exam: PRESENT: atraumatic, normocephalic Neck exam: ABSENT: carotid bruit, JVD, lymphadenopathy, thyromegaly Respiratory exam: PRESENT: clear to auscultation [place]. ABSENT: rales, rhonchi, wheezes GI/Abdominal exam: PRESENT: hypoactive bowel sounds, normal bowel sounds, soft. ABSENT: distended, guarding, mass, organolmegaly, rebound, tenderness Neurological exam: PRESENT: alert, awake, oriented to person, oriented to place, oriented to time, oriented to situation, CN II-XII grossly intact. ABSENT: motor sensory deficit Results Laboratory Results: 06/17/20 08:01 06/17/20 08:01 06/17/20 20:00 Urine Color YELLOW Urine Appearance CLEAR Urine pH 5.0 Ur Specific [place] 1.014 Urine Protein NEGATIVE Urine Glucose (UA) NEGATIVE Urine Ketones NEGATIVE Urine Blood NEGATIVE Urine Nitrite NEGATIVE Ur Leukocyte Esterase NEGATIVE Urine WBC (Auto) 0 Urine RBC (Auto) 0 06/07/20 06/07/20 06/07/20 12:24 12:24 15:08 Creatine Kinase 34 L Troponin I 0.035 0.041 NT-Pro-B Natriuret Pep 06/07/20 06/07/20 06/08/20 16:45 22:01 05:25 Creatine Kinase 35 L 40 L 35 L Troponin I NT-Pro-B Natriuret Pep 06/08/20 05:25 Creatine Kinase Troponin I NT-Pro-B Natriuret Pep 17928 H Impressions: Head CT 06/07/20 13:02 IMPRESSION: Stable CT of the brain with bifrontal encephalomalacia. No acute intracranial event. EVIDENCE OF ACUTE STROKE: NO. Thoracentesis Ultrasound 06/08/20 00:00 IMPRESSION: SUCCESSFUL THORACENTESIS AND CHEST TUBE PLACEMENT USING ULTRASOUND GUIDANCE. Chest CT 06/09/20 00:00 IMPRESSION: 1. RIGHT-SIDED PIGTAIL PLEURAL CATHETER WITH INTERVAL DECREASE IN THE PLEURAL EFFUSION. THERE IS NOW A MILD TO MODERATE RIGHT PNEUMOTHORAX. THE CATHETER WILL BE READJUSTED. 2. MODERATE LEFT PLEURAL EFFUSION, UNCHANGED. DIFFUSE AIRSPACE DISEASE UNCHANGED. Chest X-Ray 06/16/20 06:00 IMPRESSION: No significant change. No pneumothorax. KUB X-Ray 06/16/20 15:05 IMPRESSION: Nasogastric tube in the stomach. Abdomen/Pelvis CT 06/17/20 00:00 IMPRESSION: 1. Small bowel obstruction with transition point in the left mid abdomen. This may be a high-grade partial obstruction. Distal small bowel and colon are decompressed. 2. Marked urinary bladder distention, suggestive of bladder outlet obstruction. Clinical correlation is recommended. 3. Loculated right hydropneumothorax and small left pleural effusion, not s ignificantly changed. Compressive atelectasis at the lung bases. 4. Moderate ascites, slightly decreased from previous examination. 5. Mildly nodular contour of the liver, nonspecific however could indicate underlying hepatic cirrhosis. Clinical correlation is with recommended. 6. Diffuse subcutaneous edema, suggestive of fluid overload. 7. Colonic diverticulosis without evidence of diverticulitis. Assessment and Plan - Diagnosis (1) Small bowel obstruction Is this a current diagnosis for this admission?: Yes Plan: Patient still has NG tube in place, tolerating ice chips, not passing flatus, has not had a bowel movement. Remains distended, hypoactive however no abdominal pain. CT abdomen positive for high-grade partial obstruction on CT with a transition point in the left mid abdomen. Continue NG tube decompression. KUB tomorrow. Monitor electrolytes and volume status. If does not resolve will consult surgery. (2) Ventricular tachyarrhythmia Is this a current diagnosis for this admission?: Yes Plan: Sinus rhythm. On beta-blockers. Was noticed to have wide-complex tachycardia at the rate of 220 reported by EMS, status post 100 J shock. As per cardiology note patient is a will require implantable cardioverter defibrillator however he is not a candidate given his multiorgan failure and nutritional status. Cardiology consulted. Recommendation at this time is medical management and optimizing electrolytes. (3) DEMETRIUS (acute kidney injury) Is this a current diagnosis for this admission?: Yes Plan: History of end-stage renal disease. Appears will evaluate at the moment.. Receiving scheduled hemodialysis. Monitor volume status. Monitor electrolytes and replace as needed. (4) Ascites Qualifiers: Ascites type: due to alcoholic cirrhosis Qualified Code(s): K70.31 - Alcoholic cirrhosis of liver with ascites Is this a current diagnosis for this admission?: Yes Plan: Monitoring for fluid overload, seems to be fairly euvolemic at this time (5) COPD (chronic obstructive pulmonary disease) Qualifiers: COPD type: unspecified COPD Qualified Code(s): J44.9 - Chronic obstructive pulmonary disease, unspecified Is this a current diagnosis for this admission?: Yes Plan: Does not appear to be acutely exacerbated. Continue current management. (6) Hydrothorax Is this a current diagnosis for this admission?: Yes Plan: History of recurrent pleural effusion. Patient had a chest tube placed on the right chest. Status post chest tube removal on 06/17/2020. Patient complaining of right-sided chest pain pleuritic. PO2 WNL on 1 to 2 L. Monitor vitals. Follow-up fluid analysis. (7) Pneumothorax, iatrogenic Is this a current diagnosis for this admission?: Yes Plan: Status post pleurodesis by surgery. SPO2 WNL on 1 to 2 L. Repeat chest x-ray shows resolution of pneumothorax. (8) CHF (congestive heart failure) Qualifiers: Heart failure type: combined systolic and diastolic Heart failure chronicity: chronic Qualified Code(s): I50.42 - Chronic combined systolic (congestive) and diastolic (congestive) heart failure Is this a current diagnosis for this admission?: Yes Plan: Acutely exacerbated on admission. Appears euvolemic at the moment. proBNP 16,800 on admission. 06/07/2020 2D echo ejection fraction 25 to 30% with moderate pulmonary hypertens ion. Mechanical mitral valve.Per previous physician Continue cardiac diet, beta-blockers, Aldactone, diuretics. (9) Atrial fibrillation Qualifiers: Atrial fibrillation type: longstanding persistent Qualified Code(s): I48.11 - Longstanding persistent atrial fibrillation Is this a current diagnosis for this admission?: Yes Plan: Sinus rhythm. Rate controlled. Was initially on heparin drip and transitioned to Coumadin. INR therapeutic. Continue beta-blockers, continue Coumadin, monitor INR, monitor for bleeding. (10) Mechanical heart valve present Is this a current diagnosis for this admission?: Yes Plan: History of aortic stenosis status post mechanical valve placement on Saturday patient hospitalization was complicated by PEA and remained in hospital for 3 to 4 months and [facility]. As per recent echo mechanical valve functioning properly. Anticoagulated with Coumadin. Goal of INR 2.53.5. - Time Time Spent with patient: 35 or more minutes Anticipated Discharge Disposition: Home, Self Care Anticipated Discharge: within 72 hours
[2020-06-18 19:02] LABS: HEMOGLOBIN 12.9 g/dL (13.5-17.0); MEAN CORPUSCULAR HEMOGLOBIN 28.4 pg (27.0-33.4); MEAN CORPUSCULAR HGB CONC 33.1 g/dL (32.0-36.0); MEAN CORPUSCULAR VOLUME 86 fl (80-97); PLATELET COUNT 137 10^3/uL (150-450); RED BLOOD COUNT 4.53 10^6/uL (4.35-5.55); RED CELL DISTRIBUTION WIDTH 19.3 % (11.5-14.0); WHITE BLOOD COUNT 6.8 10^3/uL (4.0-10.5)
[2020-06-19] MEDS: IPRATROPIUM/ALBUTEROL 0.5-2.5 MG/3 ML AMPUL NEB SCH ×4 (02:10→20:56)
[2020-06-19] MEDS: RINGERS SOLUTION,LACTATED 1,000 ML IV PRN ×2 (02:31→14:01)
[2020-06-19] MEDS: MIDODRINE HCL 5 MG TABLET NG SCH ×3 (06:10→22:31)
[2020-06-19] MEDS: PANTOPRAZOLE SODIUM 40 MG PACKET.DR NG SCH ×2 (06:10→18:15)
[2020-06-19 07:36] LABS: INTERNATIONAL RATION (INR) 2.13; PROTHROMBIN TIME 24.2 SEC (11.4-15.4)
[2020-06-19] MEDS: SPIRONOLACTONE 25 MG TABLET NG SCH (10:14)
[2020-06-19] MEDS: FLUTICASONE NASAL SPRAY 50 MCG/SPRY 120 SPRAY/16 GM NASL SCH (10:14)
[2020-06-19] MEDS: METOPROLOL TARTRATE 50 MG TABLET NG SCH ×2 (10:34→22:30)
[2020-06-19] MEDS: FUROSEMIDE INJ/PF 20 MG/2 ML SDV IV SCH ×2 (10:34→22:29)
--- NOTE | 2020-06-19 15:13 | RADIOLOGY REPORT (SQ) ---
EXAM DESCRIPTION: CHEST SINGLE VIEW IMAGES COMPLETED DATE/TIME: 06/19/2020 1:53 pm REASON FOR STUDY: chest pain COMPARISON: 06/16/2020 EXAM PARAMETERS: NUMBER OF VIEWS: One view. TECHNIQUE: Single frontal radiographic view of the chest acquired. RADIATION DOSE: NA LIMITATIONS: None. FINDINGS: LUNGS AND PLEURA: Persistent consolidation in the right mid to lower lung with loculated r ight pleural effusion/pleural thickening, stable. Left lung remains clear. No pneumothorax. MEDIASTINUM AND HILAR STRUCTURES: No masses. Contour normal. HEART AND VASCULAR STRUCTURES: Postoperative changes consistent with prior CABG. No pulmonary vascul ar congestion. Heart has normal size. BONES: No acute findings. HARDWARE: Left central venous catheter with tip in the right atrium unchanged. Esophagogastric tube tip and side-hole are below the diaphragm likely within the stomach. OTHER: No other significant finding. IMPRESSION: No significant interval change. Persistent consolidation in the right lung with loculat ed right pleural effusion, stable. TECHNICAL DOCUMENTATION: JOB ID: [id number] 2010 [employer]- All Rights Reserved Reading location - IP/workstation name: [email or web address]
--- NOTE | 2020-06-19 16:14 | PDOC PROGRESS REPORT ---
Subjective Progress Note for:: 06/19/20 Subjective:: Pavel Lepe 59-year-old male past medical history of CHF ejection fraction of 20 to 25%, status post leadless permanent pacemaker, atrial fibrillation on Coumadin, recurrent pleural effusion and pneumothorax, mitral valve replacement at [facility] which was complicated patient had to stay in the hospital for 4 months. Postoperatively patient had a PEA cardiac arrest and had renal failure and was discharged on hemodialysis was brought to ED by EMS after being found unresponsive and noted to be in V. tach, was given a shock of 100 J successful. 06/18/2020. No acute events overnight. Chest tube is been removed. Complaining of left-sided chest soreness and back pain. Any fever, chills, nausea, vomiting. NG tube in place. Tolerating ice chips. Has not had a bowel movement. 06/19/2020. No acute events overnight. Patient complaining of pleuritic right-sided chest pain is not passing flatus, has not had any bowel, denies any shortness of breath, fever, chills, nausea, vomiting. Reason For Visit: V TACHYCARDIA Physical Exam Vital Signs: Temp Pulse Resp BP Pulse Ox 97.5 F 81 14 91/72 L 96 06/19/20 11:24 06/19/20 14:00 06/19/20 11:24 06/19/20 11:24 06/19/20 11:24 Intake & Output 06/18/20 06/19/20 06/20/20 06:59 06:59 06:59 Intake Total 2440 1219 1000 Output Total 2430 800 Balance 10 419 1000 Weight 60.7 kg 61.5 kg General appearance: PRESENT: no acute distress, thin, well-developed, well- nourished Head exam: PRESENT: atraumatic, normocephalic Respiratory exam: PRESENT: clear to auscultation [place]. ABSENT: rales, rhonchi, wheezes Cardiovascular exam: PRESENT: RRR, other - Right anterior and right lateral ch est tenderness to palpation.. ABSENT: diastolic murmur, rubs, systolic murmur GI/Abdominal exam: PRESENT: distended, firm, hypoactive bowel sounds, normal bowel sounds, soft. ABSENT: guarding, mass, organolmegaly, rebound, tenderness Neurological exam: PRESENT: alert, awake, oriented to person, oriented to place, oriented to time, oriented to situation, CN II-XII grossly intact. ABSENT: motor sensory deficit Results Laboratory Results: 06/18/20 18:15 06/17/20 08:01 06/18/20 06/19/20 18:15 13:45 WBC 6.8 RBC 4.53 Hgb 12.9 L Hct 39.0 MCV 86 MCH 28.4 MCHC 33.1 RDW 19.3 H Plt Count 137 L Stool Occult Blood POSITIVE 06/07/20 06/07/20 06/07/20 12:24 12:24 15:08 Creatine Kinase 34 L Troponin I 0.035 0.041 NT-Pro-B Natriuret Pep 06/07/20 06/07/20 06/08/20 16:45 22:01 05:25 Creatine Kinase 35 L 40 L 35 L Troponin I NT-Pro-B Natriuret Pep 06/08/20 05:25 Creatine Kinase Troponin I NT-Pro-B Natriuret Pep [id number] H Impressions: Head CT 06/07/20 13:02 IMPRESSION: Stable CT of the brain with bifrontal encephalomalacia. No acute intracranial event. EVIDENCE OF ACUTE STROKE: NO. Thoracentesis Ultrasound 06/08/20 00:00 IMPRESSION: SUCCESSFUL THORACENTESIS AND CHEST TUBE PLACEMENT USING ULTRASOUND GUIDANCE. Chest CT 06/09/20 00:00 IMPRESSION: 1. RIGHT-SIDED PIGTAIL PLEURAL CATHETER WITH INTERVAL DECREASE IN THE PLEURAL EFFUSION. THERE IS NOW A MILD TO MODERATE RIGHT PNEUMOTHORAX. THE CATHETER WILL BE READJUSTED. 2. MODERATE LEFT PLEURAL EFFUSION, UNCHANGED. DIFFUSE AIRSPACE DISEASE UNCHANGED. KUB X-Ray 06/16/20 15:05 IMPRESSION: Nasogastric tube in the stomach. Abdomen/Pelvis CT 06/17/20 00:00 IMPRESSION: 1. Small bowel obstruction with transition point in the left mid abdomen. This may be a high-grade partial obstruction. Distal small bowel and colon are decompressed. 2. Marked urinary bladder distention, suggestive of bladder outlet obstruction. Clinical correlation is recommended. 3. Loculated right hydropneumothorax and small left pleural effusion, not significantly changed. Compressive atelectasis at the lung bases. 4. Moderate ascites, slightly decreased from previous examination. 5. Mildly nodular contour of the liver, nonspecific however could indicate underlying hepatic cirrhosis. Clinical correlation is with recommended. 6. Diffuse subcutaneous edema, suggestive of fluid overload. 7. Colonic diverticulosis without evidence of diverticulitis. Chest X-Ray 06/19/20 00:00 IMPRESSION: No significant interval change. Persistent consolidation in the right lung with loculated right pleural effusion, stable. Assessment and Plan - Diagnosis (1) Small bowel obstruction Is this a current diagnosis for this admission?: Yes Plan: Patient still has NG tube in place, tolerating ice chips, not passing flatus, has not had a bowel movement. Remains distended, hypoactive however no abdominal pain. CT abdomen positive for high-grade partial obstruction on CT with a transition point in the left mid abdomen. Continue NG tube decompression. KUB tomorrow. Monitor electrolytes and volume status. If does not resolve will consult surgery. (2) Ventricular tachyarrhythmia Is this a current diagnosis for this admission?: Yes Plan: Sinus rhythm. On beta-blockers. Was noticed to have wide-complex tachycardia at the rate of 220 reported by EMS, status post 100 J shock. As per cardiology note patient is a will require implantable cardioverter defibrillator however he is not a candidate given his multiorgan failure and nutritional status. Cardiology consulted. Recommendation at this time is medical management and optimizing electrolytes. (3) DEMETRIUS (acute kidney injury) Is this a current diagnosis for this admission?: Yes Plan: History of end-stage renal disease. Appears will evaluate at the moment.. Receiving scheduled hemodialysis. Monitor volume status. Monitor electrolytes and replace as needed. (4) Ascites Qualifiers: Ascites type: due to alcoholic cirrhosis Qualified Code(s): K70.31 - Alcoholic cirrhosis of liver with ascites Is this a current diagnosis for this admission?: Yes Plan: Monitoring for fluid overload, seems to be fairly euvolemic at this time (5) COPD (chronic obstructive pulmonary disease) Qualifiers: COPD type: unspecified COPD Qualified Code(s): J44.9 - Chronic obstructive pulmonary disease, unspecified Is this a current diagnosis for this admission?: Yes Plan: Does not appear to be acutely exacerbated. Continue current management. (6) Hydrothorax Is this a current diagnosis for this admission?: Yes Plan: History of recurrent pleural effusion. Patient had a chest tube placed on the right chest. Status post chest tube removal on 06/17/2020. Patient complaining of right-sided chest pain pleuritic. PO2 WNL on 1 to 2 L. Monitor vitals. Follow-up fluid analysis. (7) Pneumothorax, iatrogenic Is this a current diagnosis for this admission?: Yes Plan: Status post pleurodesis by surgery. SPO2 WNL on 1 to 2 L. Repeat chest x-ray shows resolution of pneumothorax. (8) CHF (congestive heart failure) Qualifiers: Heart failure type: combined systolic and diastolic Heart failure chronic ity: chronic Qualified Code(s): I50.42 - Chronic combined systolic (congestive) and diastolic (congestive) heart failure Is this a current diagnosis for this admission?: Yes Plan: Acutely exacerbated on admission. Appears euvolemic at the moment. proBNP 16,800 on admission. 06/07/2020 2D echo ejection fraction 25 to 30% with moderate pulmonary hypertension. Mechanical mitral valve.Per previous physician Continue cardiac diet, beta-blockers, Aldactone, diuretics. (9) Atrial fibrillation Qualifiers: Atrial fibrillation type: longstanding persistent Qualified Code(s): I48.11 - Longstanding persistent atrial fibrillation Is this a current diagnosis for this admission?: Yes Plan: Sinus rhythm. Rate controlled. Was initially on heparin drip and transitioned to Coumadin. INR therapeutic. Continue beta-blockers, continue Coumadin, monitor INR, monitor for bleeding. (10) Mechanical heart valve present Is this a current diagnosis for this admission?: Yes Plan: History of aortic stenosis status post mechanical valve placement on Saturday patient hospitalization was complicated by PEA and remained in hospital for 3 to 4 months and [facility]. As per recent echo mechanical valve functioning properly. Anticoagulated with Coumadin. Goal of INR 2.53.5. - Time Time Spent with patient: 25-34 minutes Medications reviewed and adjusted accordingly: Yes Anticipated Discharge Disposition: Home with Home Health Anticipated Discharge: within 72 hours
[2020-06-19] MEDS: LIDOCAINE 5% (700 MG) TRANSDERMAL ADH..PATCH TP SCH (18:10)
[2020-06-19] MEDS: WARFARIN SODIUM 3 MG TABLET PO SCH (22:30)
[2020-06-20] MEDS: IPRATROPIUM/ALBUTEROL 0.5-2.5 MG/3 ML AMPUL NEB SCH ×5 (02:01→20:21)
[2020-06-20 04:22] LABS: INTERNATIONAL RATION (INR) 2.97; PROTHROMBIN TIME 31.5 SEC (11.4-15.4)
[2020-06-20 04:24] LABS: HEMATOCRIT 41.9 % (37.9-51.0); HEMOGLOBIN 13.8 g/dL (13.5-17.0); MEAN CORPUSCULAR HEMOGLOBIN 28.5 pg (27.0-33.4); MEAN CORPUSCULAR VOLUME 86 fl (80-97); PLATELET COUNT 144 10^3/uL (150-450); RED BLOOD COUNT 4.86 10^6/uL (4.35-5.55); RED CELL DISTRIBUTION WIDTH 19.2 % (11.5-14.0)
[2020-06-20 04:41] LABS: ANION GAP 14 (5-19); BLOOD UREA NITROGEN 41 mg/dL (7-20); CALCIUM 8.8 mg/dL (8.4-10.2); CARBON DIOXIDE 21 mmol/L (22-30); CHLORIDE 93 mmol/L (98-107); PHOSPHORUS 3.7 mg/dL (2.5-4.5)
[2020-06-20 04:43] LABS: GLUCOSE 59 mg/dL (75-110)
[2020-06-20 04:45] LABS: ABSOLUTE LYMPHOCYTES# (MANUAL) 0.1 10^3/uL (0.5-4.7); ABSOLUTE MONOCYTES # (MANUAL) 0.7 10^3/uL (0.1-1.4); BASOPHILS % (MANUAL) 0 % (0-2); EOSINOPHILS % (MANUAL) 0 % (0-6); LYMPHOCYTES % (MANUAL) 1 % (13-45); MONOCYTES % (MANUAL) 5 % (3-13); SEGMENTED NEUTROPHILS % (MAN) 94 % (42-78); TOTAL CELLS COUNTED 100
[2020-06-20 04:46] LABS: ANISOCYTOSIS 2+; HELMET CELLS SLIGHT; OVALOCYTES 1+; PLATELET COMMENT ADEQUATE; POIKILOCYTOSIS 2+; SCHISTOCYTES SLIGHT; TEAR DROP CELLS 1+; TOXIC GRANULATION 1+; TOXIC VACUOLATION PRESENT
[2020-06-20] MEDS ORDERED: NORMAL SALINE 1000 ML 1,000 ML IV PRN (05:00)
[2020-06-20] MEDS ORDERED: HEPARIN SOD (PORCINE) 1,000 UNIT/ML 10 ML VIAL IV PRN (05:00)
[2020-06-20] MEDS: MIDODRINE HCL 5 MG TABLET NG SCH ×3 (05:54→22:31)
[2020-06-20] MEDS: PANTOPRAZOLE SODIUM 40 MG PACKET.DR NG SCH ×2 (05:55→17:52)
[2020-06-20] MEDS: ACETAMINOPHEN SOLN 325 MG/10.15 ML UDCUP NG PRN ×2 (08:44→18:05)
[2020-06-20] MEDS: METOPROLOL TARTRATE 50 MG TABLET NG SCH ×2 (11:08→22:31)
[2020-06-20] MEDS: CEFEPIME 1 GM/D5W RTU 1 GM/50 ML RTUPB IV SCH ×2 (11:08→22:32)
[2020-06-20] MEDS: FUROSEMIDE INJ/PF 20 MG/2 ML SDV IV SCH ×2 (11:09→22:31)
[2020-06-20] MEDS: SPIRONOLACTONE 25 MG TABLET NG SCH (11:09)
[2020-06-20] MEDS: ONDANSETRON HCL INJ/PF 4 MG/2 ML SDV IV PRN ×2 (11:09→19:17)
[2020-06-20] MEDS: FLUTICASONE NASAL SPRAY 50 MCG/SPRY 120 SPRAY/16 GM NASL SCH (11:24)
[2020-06-20] MEDS: LIDOCAINE 5% (700 MG) TRANSDERMAL ADH..PATCH TP SCH (11:24)
--- NOTE | 2020-06-20 11:38 | PDOC PROGRESS REPORT ---
Subjective Progress Note for:: 06/20/20 Reason For Visit: Patient seen on dialysis. Dialysis proceeding well without any complications. Patient still complains of some right-sided chest pain even though the chest tube has been removed and he has had pleurodesis done. He has also got some abdominal distention with some pain and is on NG tube decompression. Denies history of fever or chills. Labs and medications were reviewed. Dialysis orders were reviewed with treating dialysis nurse Physical Exam Vital Signs: Temp Pulse Resp BP Pulse Ox 97.4 F 76 16 90/64 L 100 06/20/20 04:13 06/20/20 07:00 06/20/20 02:25 06/20/20 04:13 06/20/20 04:13 Intake & Output 06/19/20 06/20/20 06/21/20 06:59 06:59 06:59 Intake Total 1219 1000 1900 Output Total 156 150 1097 Balance 419 575 -200 Weight 61.5 kg 64.1 kg General appearance: PRESENT: no acute distress Respiratory exam: PRESENT: decreased breath sounds. ABSENT: clear to auscultation [place], crackles Cardiovascular exam: PRESENT: +S1, +S2 GI/Abdominal exam: PRESENT: ascites, distended, normal bowel sounds, soft. ABSENT: firm, guarding, organomegaly Neurological exam: PRESENT: alert, awake, oriented to person Skin exam: ABSENT: erythema, rash Results Laboratory Results: 06/20/20 03:59 06/20/20 03:59 06/19/20 06/20/20 06/20/20 13:45 03:59 03:59 WBC 13.0 H RBC 4.86 Hgb 13.8 Hct 41.9 MCV 86 MCH 28.5 MCHC 33.0 RDW 19.2 H Plt Count 144 L Seg Neutrophils % Not Reportable Sodium 128.4 L Potassium 4.0 Chloride 93 L Carbon Dioxide 21 L Anion Gap 14 BUN 41 H Creatinine 2.21 H Est GFR ( Amer) 37 L Glucose 59 L Calcium 8.8 Phosphorus 3.7 Magnesium 2.0 Stool Occult Blood POSITIVE 06/07/20 06/07/20 06/07/20 12:24 12:24 15:08 Creatine Kinase 34 L Troponin I 0.035 0.041 NT-Pro-B Natriuret Pep 06/07/20 06/07/20 06/08/20 16:45 22:01 05:25 Creatine Kinase 35 L 40 L 35 L Troponin I NT-Pro-B Natriuret Pep 06/08/20 05:25 Creatine Kinase Troponin I NT-Pro-B Natriuret Pep [id number] H Impressions: Head CT 06/07/20 13:02 IMPRESSION: Stable CT of the brain with bifrontal encephalomalacia. No acute intracranial event. EVIDENCE OF ACUTE STROKE: NO. Thoracentesis Ultrasound 06/08/20 00:00 IMPRESSION: SUCCESSFUL THORACENTESIS AND CHEST TUBE PLACEMENT USING ULTRASOUND GUIDANCE. Chest CT 06/09/20 00:00 IMPRESSION: 1. RIGHT-SIDED PIGTAIL PLEURAL CATHETER WITH INTERVAL DECREASE IN THE PLEURAL EFFUSION. THERE IS NOW A MILD TO MODERATE RIGHT PNEUMOTHORAX. THE CATHETER WILL BE READJUSTED. 2. MODERATE LEFT PLEURAL EFFUSION, UNCHANGED. DIFFUSE AIRSPACE DISEASE UNCHANGED. KUB X-Ray 06/16/20 15:05 IMPRESSION: Nasogastric tube in the stomach. Abdomen/Pelvis CT 06/17/20 00:00 IMPRESSION: 1. Small bowel obstruction with transition point in the left mid abdomen. This may be a high-grade partial obstruction. Distal small bowel and colon are decompressed. 2. Marked urinary bladder distention, suggestive of bladder outlet obstruction. Clinical correlation is recommended. 3. Loculated right hydropneumothorax and small left pleural effusion, not significantly changed. Compressive atelectasis at the lung bases. 4. Moderate ascites, slightly decreased from previous examination. 5. Mildly nodular contour of the liver, nonspecific however could indicate underlying hepatic cirrhosis. Clinical correlation is with recommended. 6. Diffuse subcutaneous edema, suggestive of fluid overload. 7. Colonic diverticulosis without evidence of diverticulitis. Chest X-Ray 06/19/20 00:00 IMPRESSION: No significant interval change. Persistent consolidation in the right lung with loculated right pleural effusion, stable. Assessment & Plan - Diagnosis (1) ESRD (end stage renal disease) on dialysis Is this a current diagnosis for this admission?: Yes Plan: Initially presented with acute on chronic kidney disease but now seems to have attained ESRD. Patient currently undergoing dialysis through an IJ PermCath. Plan to remove 1-2 L as tolerated. Dialysis orders were reviewed with treating dialysis nurse.. (2) Ascites Qualifiers: Ascites type: due to alcoholic cirrhosis Qualified Code(s): K70.31 - Alcoholic cirrhosis of liver with ascites Is this a current diagnosis for this admission?: Yes (3) Atrial fibrillation Qualifiers: Atrial fibrillation type: longstanding persistent Qualified Code(s): I48.11 - Longstanding persistent atrial fibrillation Is this a current diagnosis for this admission?: Yes Plan: Rate controlled stable. (4) CHF (congestive heart failure) Qualifiers: Heart failure type: combined systolic and diastolic Heart failure chronicity: chronic Qualified Code(s): I50.42 - Chronic combined systolic (co ngestive) and diastolic (congestive) heart failure Is this a current diagnosis for this admission?: Yes Plan: Status quo. being managed by hospitalist and cardiology. (5) Ventricular tachyarrhythmia Is this a current diagnosis for this admission?: Yes Plan: Status post cardioversion and stable. (6) Bilateral pleural effusion Plan: Has had thoracentesis followed by right chest tube placement which has now been removed. He has now undergone pleurodesis. (7) H/O mitral valve replacement with mechanical valve Is this a current diagnosis for this admission?: Yes Plan: Status quo. (8) Patient noncompliance Plan: Status quo. (9) Hypotension Qualifiers: Hypotension type: idiopathic hypotension Qualified Code(s): I95.0 - Idiopathic hypotension Is this a current diagnosis for this admission?: Yes Plan: Off dopamine drip and currently just on Midodrin and maintaining systolics. (10) Hyponatremia Is this a current diagnosis for this admission?: Yes Plan: See response to some fluid removal. Monitor.
[2020-06-20] MEDS ORDERED: TUBERCULIN,PURIF.PROT.DERIV. 5 TU/0.1 ML TEST 1 ML VIAL ID PRN (16:00)
[2020-06-20] MEDS ORDERED: BENZOCAINE 20% AEROSOL SPRAY 60 GM TP PRN (16:09)
--- NOTE | 2020-06-20 16:38 | RADIOLOGY REPORT (SQ) ---
EXAM DESCRIPTION: KUB/ABDOMEN (SINGLE VIEW) IMAGES COMPLETED DATE/TIME: 06/20/2020 4:29 pm REASON FOR STUDY: Check Placement of NG Tube COMPARISON: None. NUMBER OF VIEWS: One view. TECHNIQUE: Supine radiographic image of the abdomen acquired. LIMITATIONS: None. FINDINGS: The tip of the NG tube is right at the gastroesophageal junction. IMPRESSION: The NG tube is at the gastroesophageal junction. TECHNICAL DOCUMENTATION: JOB ID: [id number] [employer]- All Rights Reserved Reading location - IP/workstation name: [email or web address]
--- NOTE | 2020-06-20 17:10 | PDOC PROGRESS REPORT ---
Subjective Progress Note for:: 06/20/20 Subjective:: Pavel Lepe 59-year-old male past medical history of CHF ejection fraction of 20 to 25%, status post leadless permanent pacemaker, atrial fibrillation on Coumadin, recurrent pleural effusion and pneumothorax, mitral valve replacement at [place] which was complicated patient had to stay in the hospital for 4 months. Postoperatively patient had a PEA cardiac arrest and had renal failure and was discharged on hemodialysis was brought to ED by EMS after being found unresponsive and noted to be in V. tach, was given a shock of 100 J successful. 06/18/2020. No acute events overnight. Chest tube is been removed. Complaining of left-sided chest soreness and back pain. Any fever, chills, nausea, vomiting. NG tube in place. Tolerating ice chips. Has not had a bowel movement. 06/19/2020. No acute events overnight. Patient complaining of pleuritic right-sided chest pain is not passing flatus, has not had any bowel, denies any shortness of breath, fever, chills, nausea, vomiting. 06/20/2020. Patient removed her NG tube yesterday stating that it was bothering him, this morning during hemodialysis patient was vomiting, NG tube placed, saw patient after hemodialysis, comfortably being in his recliner no apparent distress, had one small bowel bleed yesterday, not passing any flatus, denies any abdominal pain, chest pain improving, denies any fever, chills, shortness of breath. Reason For Visit: V TACHYCARDIA Physical Exam Vital Signs: Temp Pulse Resp BP Pulse Ox 97.3 F 92 20 127/72 H 100 06/20/20 12:00 06/20/20 14:00 06/20/20 12:00 06/20/20 12:00 06/20/20 12:00 Intake & Output 06/19/20 06/20/20 06/21/20 06:59 06:59 06:59 Intake Total 1219 1000 1950 Output Total 695 318 2247 Balance 419 575 -250 Weight 61.5 kg 64.1 kg General appearance: PRESENT: no acute distress, well-developed, well-nourished Head exam: PRESENT: atraumatic, normocephalic Respiratory exam: PRESENT: clear to auscultation [place]. ABSENT: rales, rhonchi, wheezes Cardiovascular exam: PRESENT: RRR. ABSENT: diastolic murmur, rubs, systolic murmur GI/Abdominal exam: PRESENT: distended, hypoactive bowel sounds, soft. ABSENT: guarding, mass, organolmegaly, rebound, tenderness Extremities exam: PRESENT: full ROM. ABSENT: calf tenderness, clubbing, pedal edema Neurological exam: PRESENT: alert, awake, oriented to person, oriented to place, oriented to time, oriented to situation, CN II-XII grossly intact. ABSENT: motor sensory deficit Results Laboratory Results: 06/20/20 03:59 06/20/20 03:59 06/20/20 06/20/20 03:59 03:59 WBC 13.0 H RBC 4.86 Hgb 13.8 Hct 41.9 MCV 86 MCH 28.5 MCHC 33.0 RDW 19.2 H Plt Count 144 L Seg Neutrophils % Not Reportable Sodium 128.4 L Potassium 4.0 Chloride 93 L Carbon Dioxide 21 L Anion Gap 14 BUN 41 H Creatinine 2.21 H Est GFR ( Amer) 37 L Glucose 59 L Calcium 8.8 Phosphorus 3.7 Magnesium 2.0 06/07/20 06/07/20 06/07/20 12:24 12:24 15:08 Creatine Kinase 34 L Troponin I 0.035 0.041 NT-Pro-B Natriuret Pep 06/07/20 06/07/20 06/08/20 16:45 22:01 05:25 Creatine Kinase 35 L 40 L 35 L Troponin I NT-Pro-B Natriuret Pep 06/08/20 05:25 Creatine Kinase Troponin I NT-Pro-B Natriuret Pep [id number] H Impressions: Head CT 06/07/20 13:02 IMPRESSION: Stable CT of the brain with bifrontal encephalomalacia. No acute intracranial event. EVIDENCE OF ACUTE STROKE: NO. Thoracentesis Ultrasound 06/08/20 00:00 IMPRESSION: SUCCESSFUL THORACENTESIS AND CHEST TUBE PLACEMENT USING ULTRASOUND GUIDANCE. Chest CT 06/09/20 00:00 IMPRESSION: 1. RIGHT-SIDED PIGTAIL PLEURAL CATHETER WITH INTERVAL DECREASE IN THE PLEURAL EFFUSION. THERE IS NOW A MILD TO MODERATE RIGHT PNEUMOTHORAX. THE CATHETER WILL BE READJUSTED. 2. MODERATE LEFT PLEURAL EFFUSION, UNCHANGED. DIFFUSE AIRSPACE DISEASE UNCHANGED. Abdomen/Pelvis CT 06/17/20 00:00 IMPRESSION: 1. Small bowel obstruction with transition point in the left mid abdomen. This may be a high-grade partial obstruction. Distal small bowel and colon are decompressed. 2. Marked urinary bladder distention, suggestive of bladder outlet obstruction. Clinical correlation is recommended. 3. Loculated right hydropneumothorax and small left pleural effusion, not significantly changed. Compressive atelectasis at the lung bases. 4. Moderate ascites, slightly decreased from previous examination. 5. Mildly nodular contour of the liver, nonspecific however could indicate underlying hepatic cirrhosis. Clinical correlation is with recommended. 6. Diffuse subcutaneous edema, suggestive of fluid overload. 7. Colonic diverticulosis without evidence of diverticulitis. Chest X-Ray 06/19/20 00:00 IMPRESSION: No significant interval change. Persistent consolidation in the right lung with loculated right pleural effusion, stable. KUB X-Ray 06/20/20 14:04 IMPRESSION: The NG tube is at the gastroesophageal junction. Assessment and Plan - Diagnosis (1) Small bowel obstruction Is this a current diagnosis for this admission?: Yes Plan: Patient still has NG tube in place, tolerating ice chips, not passing flatus, had one small bowel movement yesterday. Remains distended, hypoactive however no abdominal pain. CT abdomen positive for high-grade partial obstruction on CT with a transition point in the left mid abdomen. Continue NG tube decompression. KUB tomorrow. Monitor electrolytes and volume status. If does not resolve will consult surgery. (2) Ventricular tachyarrhythmia Is this a current diagnosis for this admission?: Yes Plan: Sinus rhythm. On beta-blockers. Was noticed to have wide-complex tachycardia at the rate of 220 reported by EMS, status post 100 J shock. As per cardiology note patient is a will require implantable cardioverter defibrillator however he is not a candidate given his multiorgan failure and nutritional status. Cardiology consulted. Recommendation at this time is medical management and optimizing electrolytes. (3) DEMETRIUS (acute kidney injury) Is this a current diagnosis for this admission?: Yes Plan: History of end-stage renal disease. Appears euvolemic. Receiving scheduled hemodialysis. Monitor volume status. Monitor electrolytes and replace as needed. (4) Ascites Qualifiers: Ascites type: due to alcoholic cirrhosis Qualified Code(s): K70.31 - Alcoholic cirrhosis of liver with ascites Is this a current diagnosis for this admission?: Yes Plan: Monitoring for fluid overload, seems to be fairly euvolemic at this time (5) COPD (chronic obstructive pulmonary disease) Qualifiers: COPD type: unspecified COPD Qualified Code(s): J44.9 - Chronic obstructive pulmonary disease, unspecified Is this a current diagnosis for this admission?: Yes Plan: Does not appear to be acutely exacerbated. Continue current management. (6) Hydrothorax Is this a current diagnosis for this admission?: Yes Plan: History of recurrent pleural effusion. Patient had a chest tube placed on the right chest. Status post chest tube removal on 06/17/2020. Patient complaining of right-sided chest pain pleuritic. PO2 WNL on 1 to 2 L. Monitor vitals. Follow-up fluid analysis. (7) Pneumothorax, iatrogenic Is this a current diagnosis for this admission?: Yes Plan: Status post pleurodesis by surgery. SPO2 WNL on 1 to 2 L. Repeat chest x-ray shows resolution of pneumothorax. (8) CHF (congestive heart failure) Qualifiers: Heart failure type: combined systolic and diastolic Heart failure chronicity: chronic Qualified Code(s): I50.42 - Chronic combined systolic (congestive) and diastolic (congestive) heart failure Is this a current diagnosis for this admission?: Yes Plan: Acutely exacerbated on admission. Appears euvolemic at the moment. proBNP 16,800 on admission. 06/07/2020 2D echo ejection fraction 25 to 30% with moderate pulmonary hypertension. Mechanical mitral valve.Per previous physician Continue cardiac diet, beta-blockers, Aldactone, diuretics. (9) Atrial fibrillation Qualifiers: Atrial fibrillation type: longstanding persistent Qualified Code(s): I48.11 - Longstanding persistent atrial fibrillation Is this a current diagnosis for this admission?: Yes Plan: Sinus rhythm. Rate controlled. Was initially on heparin drip and transitioned to Coumadin. INR therapeutic. Continue beta-blockers, continue Coumadin, monitor INR, monitor for bleeding. (10) Mechanical heart valve present Is this a current diagnosis for this admission?: Yes Plan: History of aortic stenosis status post mechanical valve placement on Saturday p atient hospitalization was complicated by PEA and remained in hospital for 3 to 4 months and [facility]. As per recent echo mechanical valve functioning properly. Anticoagulated with Coumadin. Goal of INR 2.53.5. (11) Hypoglycemia Is this a current diagnosis for this admission?: Yes Plan: Hemoglobin A1c 5.1. Patient has been n.p.o. for several days due to small bowel obstruction. Will start on D5 LR and hypoglycemic protocol. Patient may need to be started on TPN at some point as his small bowel obstruction is not improving. - Time Time Spent with patient: 15-24 minutes Medications reviewed and adjusted accordingly: Yes Anticipated Discharge Disposition: Home, Self Care Anticipated Discharge: within 72 hours
[2020-06-20] MEDS ORDERED: DEXTROSE 50%-WATER 25 GM/50 ML DISP.SYRIN IV PRN ×2 (17:17)
[2020-06-20] MEDS ORDERED: DEXTROSE 40% GEL 15 GM TUBE PO PRN ×2 (17:17)
[2020-06-20] MEDS ORDERED: GLUCAGON,HUMAN RECOMB 1 MG INJ IM PRN (17:17)
[2020-06-20] MEDS ORDERED: BENZOCAINE 20% AEROSOL SPRAY 60 GM TP ONE (17:30)
[2020-06-20] MEDS: DEXTROSE 5%-LACTATED RINGERS 1,000 ML IV PRN (18:05)
[2020-06-20] MEDS: WARFARIN SODIUM 3 MG TABLET PO SCH (22:30)
[2020-06-21] MEDS: IPRATROPIUM/ALBUTEROL 0.5-2.5 MG/3 ML AMPUL NEB SCH ×4 (04:00→23:44)
[2020-06-21 07:51] LABS: INTERNATIONAL RATION (INR) 5.15
[2020-06-21] MEDS: PHARMACY COMMUNICATION ORDER MC SCH (08:48)
[2020-06-21] MEDS: CEFEPIME 1 GM/D5W RTU 1 GM/50 ML RTUPB IV SCH (10:00)
[2020-06-21] MEDS: DEXTROSE 5%-LACTATED RINGERS 1,000 ML IV PRN ×2 (10:00→22:49)
[2020-06-21] MEDS ORDERED: PHYTONADIONE INJ 10 MG/1 ML AMPULE SUBCUT ONE (10:00)
--- NOTE | 2020-06-21 10:05 | RADIOLOGY REPORT (SQ) ---
EXAM DESCRIPTION: KUB/ABDOMEN (SINGLE VIEW) IMAGES COMPLETED DATE/TIME: 06/21/2020 9:51 am REASON FOR STUDY: sbo COMPARISON: 06/20/2020 NUMBER OF VIEWS: One view. TECHNIQUE: Supine radiographic image of the abdomen acquired. LIMITATIONS: None. FINDINGS: BOWEL GAS PATTERN: Unchanged mildly dilated loops of small bowel to left of midline. Gas and fecal material in the rectum. CALCIFICATIONS: No suspicious calcifications. SOFT TISSUES: No gross mass or suggestion of organomegaly. HARDWARE: None in the abdomen. BONES: No acute fracture. No worrisome bone lesions. OTHER: NG tube tip overlying gastric esophageal junction. Consider advancing 5 to 6 cm. IMPRESSION: High position of nasogastric tube. Recommend advance 5- 6 cm. COMMENT: The findings were sent to the Radiology Results Communication [facility] at 09:58 on 06/21/2020 to be communicated to a licensed caregiver. TECHNICAL DOCUMENTATION: JOB ID: [id number] 2010 [employer]- All Rights Reserved Reading location - IP/workstation name: [email or web address]
[2020-06-21] MEDS: MIDODRINE HCL 5 MG TABLET NG SCH ×3 (10:18→22:39)
[2020-06-21] MEDS: METOPROLOL TARTRATE 50 MG TABLET NG SCH ×2 (10:18→22:34)
[2020-06-21] MEDS: SPIRONOLACTONE 25 MG TABLET NG SCH (10:18)
[2020-06-21] MEDS: PANTOPRAZOLE SODIUM 40 MG PACKET.DR NG SCH ×2 (10:18→16:24)
[2020-06-21] MEDS: FUROSEMIDE INJ/PF 20 MG/2 ML SDV IV SCH ×2 (10:19→22:38)
[2020-06-21] MEDS: FLUTICASONE NASAL SPRAY 50 MCG/SPRY 120 SPRAY/16 GM NASL SCH (10:59)
[2020-06-21] MEDS: LIDOCAINE 5% (700 MG) TRANSDERMAL ADH..PATCH TP SCH (10:59)
[2020-06-21 11:24] LABS: APPEARANCE,URINE CLEAR; BILIRUBIN,URINE NEGATIVE (NEGATIVE); CALCIUM OXALATE CRYSTALS,URINE FEW /HPF; COLOR,URINE YELLOW; GLUCOSE, URINE NEGATIVE (NEGATIVE); KETONES,URINE NEGATIVE (NEGATIVE); LEUKOCYTE ESTERASE,URINE TRACE (NEGATIVE); NITRITE,URINE NEGATIVE (NEGATIVE); PROTEIN,URINE NEGATIVE (NEGATIVE); URINE SPECIFIC GRAVITY 1.014; UROBILINOGEN,URINE NEGATIVE mg/dL (<2.0)
[2020-06-21] MEDS ORDERED: NA PHOS,M-B/NA PHOS,DI-BA (ADULT) 133 ML ENEMA PR ONE ×2 (13:30→15:00)
--- NOTE | 2020-06-21 14:20 | RADIOLOGY REPORT (SQ) ---
EXAM DESCRIPTION: KUB/ABDOMEN (SINGLE VIEW) IMAGES COMPLETED DATE/TIME: 06/21/2020 1:47 pm REASON FOR STUDY: NG tube advanced 6cm COMPARISON: None. NUMBER OF VIEWS: One view. TECHNIQUE: Supine radiographic image of the abdomen acquired. LIMITATIONS: None. FINDINGS: The NG tube appears to terminate in the region of the greater curvature of the stomach. T he side hole is just inside the stomach. Airspace disease the right lung base. Sternotomy wires. L oop recorder. Dual-lumen catheter. IMPRESSION: NG tube as described. Other findings as described. TECHNICAL DOCUMENTATION: JOB ID: [id number] 2010 [employer]- All Rights Reserved Reading location - IP/workstation name: [email or web address]
[2020-06-21 18:42] LABS: HEMATOCRIT 38.7 % (37.9-51.0); HEMOGLOBIN 12.8 g/dL (13.5-17.0); MEAN CORPUSCULAR HEMOGLOBIN 28.3 pg (27.0-33.4); MEAN CORPUSCULAR HGB CONC 33.2 g/dL (32.0-36.0); MEAN CORPUSCULAR VOLUME 85 fl (80-97); PLATELET COUNT 150 10^3/uL (150-450); RED BLOOD COUNT 4.53 10^6/uL (4.35-5.55); RED CELL DISTRIBUTION WIDTH 19.1 % (11.5-14.0); WHITE BLOOD COUNT 14.6 10^3/uL (4.0-10.5)
--- NOTE | 2020-06-21 19:51 | PDOC PROGRESS REPORT ---
Subjective Progress Note for:: 06/21/20 Subjective:: Patient was seen on morning rounds. He is found resting in bed, comfortably, on room air. NG tube to low wall suction. Patient tells me that he is tired and attempting to get some sleep; otherwise, he closes his eyes and turns his head away. He refused to answer any further questions but did nod his head "yes" when asked if I could listen to his heart. ROS is less limited secondary to patient participation. No concerns per nursing. Reason For Visit: V TACHYCARDIA Physical Exam Vital Signs: Temp Pulse Resp BP Pulse Ox 97.3 F 80 20 92/66 L 94 06/21/20 15:44 06/21/20 15:44 06/21/20 15:44 06/21/20 15:44 06/21/20 15:44 Intake & Output 06/20/20 06/21/20 06/22/20 06:59 06:59 06:59 Intake Total 1000 3000 250 Output Total 425 3300 200 Balance 575 -300 50 Weight 64.1 kg 66.8 kg General appearance: PRESENT: no acute distress, disheveled, well-developed, well-nourished, other. ABSENT: cooperative Head exam: PRESENT: atraumatic, normocephalic Eye exam: PRESENT: conjunctiva pink, EOMI, PERRLA. ABSENT: scleral icterus Mouth exam: PRESENT: moist, tongue midline Teeth exam: PRESENT: poor dentation Respiratory exam: PRESENT: clear to auscultation [place], symmetrical, unlabored. ABSENT: rales, rhonchi, wheezes Cardiovascular exam: PRESENT: RRR, +S1, +S2. ABSENT: diastolic murmur, rubs, systolic murmur Pulses: PRESENT: normal dorsalis pedis pul Vascular exam: PRESENT: normal capillary refill GI/Abdominal exam: PRESENT: distended, firm, hypoactive bowel sounds. ABSENT: guarding, mass, organolmegaly, rebound, tenderness Rectal exam: PRESENT: deferred Extremities exam: PRESENT: full ROM. ABSENT: calf tenderness, clubbing, pedal edema Neurological exam: PRESENT: alert, awake, oriented to person, oriented to place, oriented to time, oriented to situation, CN II-XII grossly intact. ABSENT: piter r sensory deficit Psychiatric exam: PRESENT: appropriate affect, normal mood. ABSENT: homicidal ideation, suicidal ideation Skin exam: PRESENT: dry, intact, warm. ABSENT: cyanosis, rash Results Laboratory Results: 06/21/20 18:20 06/20/20 03:59 06/21/20 06/21/20 06:15 18:20 WBC 14.6 H RBC 4.53 Hgb 12.8 L Hct 38.7 MCV 85 MCH 28.3 MCHC 33.2 RDW 19.1 H Plt Count 150 Urine Color YELLOW Urine Appearance CLEAR Urine pH 5.0 Ur Specific [place] 1.014 Urine Protein NEGATIVE Urine Glucose (UA) NEGATIVE Urine Ketones NEGATIVE Urine Blood SMALL H Urine Nitrite NEGATIVE Ur Leukocyte Esterase TRACE H Urine WBC (Auto) 15 Urine RBC (Auto) 5 06/07/20 06/07/20 06/07/20 12:24 12:24 15:08 Creatine Kinase 34 L Troponin I 0.035 0.041 NT-Pro-B Natriuret Pep 06/07/20 06/07/20 06/08/20 16:45 22:01 05:25 Creatine Kinase 35 L 40 L 35 L Troponin I NT-Pro-B Natriuret Pep 06/08/20 05:25 Creatine Kinase Troponin I NT-Pro-B Natriuret Pep [id number] H Impressions: Head CT 06/07/20 13:02 IMPRESSION: Stable CT of the brain with bifrontal encephalomalacia. No acute intracranial event. EVIDENCE OF ACUTE STROKE: NO. Thoracentesis Ultrasound 06/08/20 00:00 IMPRESSION: SUCCESSFUL THORACENTESIS AND CHEST TUBE PLACEMENT USING ULTRASOUND GUIDANCE. Chest CT 06/09/20 00:00 IMPRESSION: 1. RIGHT-SIDED PIGTAIL PLEURAL CATHETER WITH INTERVAL DECREASE IN THE PLEURAL EFFUSION. THERE IS NOW A MILD TO MODERATE RIGHT PNEUMOTHORAX. THE CATHETER WILL BE READJUSTED. 2. MODERATE LEFT PLEURAL EFFUSION, UNCHANGED. DIFFUSE AIRSPACE DISEASE UNCHANGED. Abdomen/Pelvis CT 06/17/20 00:00 IMPRESSION: 1. Small bowel obstruction with transition point in the left mid abdomen. This may be a high-grade partial obstruction. Distal small bowel and colon are decompressed. 2. Marked urinary bladder distention, suggestive of bladder outlet obstruction. Clinical correlation is recommended. 3. Loculated right hydropneumothorax and small left pleural effusion, not significantly changed. Compressive atelectasis at the lung bases. 4. Moderate ascites, slightly decreased from previous examination. 5. Mildly nodular contour of the liver, nonspecific however could indicate underlying hepatic cirrhosis. Clinical correlation is with recommended. 6. Diffuse subcutaneous edema, suggestive of fluid overload. 7. Colonic diverticulosis without evidence of diverticulitis. Chest X-Ray 06/19/20 00:00 IMPRESSION: No significant interval change. Persistent consolidation in the right lung with loculated right pleural effusion, stable. KUB X-Ray 06/21/20 00:00 IMPRESSION: NG tube as described. Other findings as described. Assessment and Plan - Diagnosis (1) Small bowel obstruction Is this a current diagnosis for this admission?: Yes Plan: Patient still has NG tube in place, tolerating ice chips, not passing flatus, had one small bowel movement yesterday (small/hard stool). Remains distended, hypoactive however no abdominal pain. CT abdomen positive for high-grade partial obstruction on CT with a transition point in the left mid abdomen. KUB shows persistent mildly dilated loops of small bowel to the left of midline. Gas and fecal material in the rectum. Continue NG tube decompression. Monitor electrolytes and volume status. Refused Fleets multiple times today. Will attempt to encourage Dulcolax suppository as patient did have small/hard bm yesterday. Avoid IV reglan r/t high QTc. Will obtain PT consultation; patient should begin ambulating in hallways several times daily. Repeat KUB tomorrow. If does not resolve will consult surgery. (2) DEMETRIUS (acute kidney injury) Is this a current diagnosis for this admission?: Yes Plan: Acute on chronic renal failure. History of end-stage renal disease. Appears euvolemic. Nephrology is consulted; receiving scheduled hemodialysis. Monitor volume status. Monitor electrolytes and replace as needed. (3) Ascites Qualifiers: Ascites type: due to alcoholic cirrhosis Qualified Code(s): K70.31 - Alcoholic cirrhosis of liver with ascites Is this a current diagnosis for this admission?: Yes Plan: Monitoring for fluid overload, seems to be fairly euvolemic at this time Continue furosemide and spironolactone. Nephrology consulted for dialysis. (4) Atrial fibrillation Qualifiers: Atrial fibrillation type: longstanding persistent Qualified Code(s): I48.11 - Longstanding persistent atrial fibrillation Is this a current diagnosis for this admission?: Yes Plan: Sinus rhythm. Rate controlled. Was initially on heparin drip and transitioned to Coumadin. INR supratherapeutic; 5.15. Continue to monitor on telemetry. Continue beta-blockers Coumadin currently on hold, monitor INR, monitor for bleeding. Cardiology previous, consulted; have signed off. Reconsult as needed. (5) CHF (congestive heart failure) Qualifiers: Heart failure type: combined systolic and diastolic Heart failure chronicity: chronic Qualified Code(s): I50.42 - Chronic combined systolic (congestive) and diastolic (congestive) heart failure Is this a current diagnosis for this admission?: Yes Plan: Acutely exacerbated on admission. Appears euvolemic at the moment. proBNP 16,800 on admission. (06/07/2020) 2D echo ejection fraction 25 to 30% with moderate pulmonary hypertension. Mechanical mitral valve.Per previous physician Continue cardiac diet, beta-blockers, Aldactone, furosemide. Cardiology previously consulted; have signed off. Reconsult as necessary and at time of discharge to arrange for LifeVest. (6) COPD (chronic obstructive pulmonary disease) Qualifiers: COPD type: unspecified COPD Qualified Code(s): J44.9 - Chronic obstructive pulmonary disease, unspecified Is this a current diagnosis for this admission?: Yes Plan: Does not appear to be acutely exacerbated. No indications for antibiotic or steroid therapy at this time. We will decrease frequency of scheduled nebs. (7) Hydrothorax Is this a current diagnosis for this admission?: Yes Plan: Resolved. History of recurrent pleural effusion. Patient had a chest tube placed on the right chest. Status post chest tube removal on 06/17/2020. s/p pleurodesis. Patient complaining of right-sided chest pain pleuritic. PO2 WNL on RA Analgesics as needed. Encourage pulmonary toilet with incentive spirometer, flutter valve, position change. Monitor vitals. (8) Hypoglycemia Is this a current diagnosis for this admission?: Yes Plan: Hemoglobin A1c 5.1. Patient has been n.p.o. for several days due to small bowel obstruction. Continue on D5 LR and hypoglycemic protocol. Patient may need to be started on TPN at some point as his small bowel obstruction is not improving. (9) Mechanical heart valve present Is this a current diagnosis for this admission?: Yes Plan: History of aortic stenosis status post mechanical valve placement on Saturday patient hospitalization was complicated by PEA and remained in hospital for 3 to 4 months and [facility]. As per recent echo mechanical valve functioning properly. Anticoagulated with Coumadin. Goal of INR 2.5-3.5. (10) Pneumothorax, iatrogenic Is this a current diagnosis for this admission?: Yes Plan: Resolved. Status post pleurodesis by surgery. SPO2 WNL on RA. Repeat chest x-ray shows resolution of pneumothorax. (11) Ventricular tachyarrhythmia Is this a current diagnosis for this admission?: Yes Plan: Sinus rhythm. On beta-blockers. Was noticed to have wide-complex tachycardia at the rate of 220 reported by EMS, status post 100 J shock. As per cardiology note patient is a will require implantable cardioverter defibrillator however he is not a candidate given his multiorgan failure and nutritional status. Cardiology consulted. Recommendation at this time is medical management and optimizing electrolytes. Reconsult cardiology at time of discharge. - Time Time Spent with patient: 35 or more minutes Medications reviewed and adjusted accordingly: Yes Anticipated Discharge Disposition: Shelter Facility Anticipated Discharge: Other
[2020-06-21] MEDS: BISACODYL 10 MG SUPP.RECT PR SCH (22:50)
[2020-06-22] MEDS: PHARMACY COMMUNICATION ORDER MC SCH ×2 (04:59→23:33)
[2020-06-22] MEDS ORDERED: HEPARIN SOD (PORCINE) 1,000 UNIT/ML 10 ML VIAL IV PRN (05:00)
[2020-06-22] MEDS: MIDODRINE HCL 5 MG TABLET NG SCH ×3 (05:24→23:33)
[2020-06-22] MEDS: PANTOPRAZOLE SODIUM 40 MG PACKET.DR NG SCH ×2 (05:25→18:42)
[2020-06-22 06:13] LABS: HEMATOCRIT 39.4 % (37.9-51.0); HEMOGLOBIN 12.8 g/dL (13.5-17.0); MEAN CORPUSCULAR HEMOGLOBIN 27.9 pg (27.0-33.4); MEAN CORPUSCULAR HGB CONC 32.5 g/dL (32.0-36.0); MEAN CORPUSCULAR VOLUME 86 fl (80-97); PLATELET COUNT 175 10^3/uL (150-450); RED BLOOD COUNT 4.59 10^6/uL (4.35-5.55); RED CELL DISTRIBUTION WIDTH 19.4 % (11.5-14.0); WHITE BLOOD COUNT 14.3 10^3/uL (4.0-10.5)
[2020-06-22 06:17] LABS: INTERNATIONAL RATION (INR) 3.91; PROTHROMBIN TIME 39.3 SEC (11.4-15.4)
[2020-06-22 06:37] LABS: ANION GAP 5 (5-19); BLOOD UREA NITROGEN 33 mg/dL (7-20); CALCIUM 8.3 mg/dL (8.4-10.2); CARBON DIOXIDE 28 mmol/L (22-30); CHLORIDE 96 mmol/L (98-107); GLUCOSE 123 mg/dL (75-110); POTASSIUM 3.2 mmol/L (3.6-5.0)
[2020-06-22 07:17] LABS: APPEARANCE,URINE CLEAR; BILIRUBIN,URINE NEGATIVE (NEGATIVE); CALCIUM OXALATE CRYSTALS,URINE RARE /HPF; COLOR,URINE YELLOW; GLUCOSE, URINE NEGATIVE (NEGATIVE); KETONES,URINE NEGATIVE (NEGATIVE); LEUKOCYTE ESTERASE,URINE SMALL (NEGATIVE); NITRITE,URINE NEGATIVE (NEGATIVE); PROTEIN,URINE NEGATIVE (NEGATIVE); URINE SPECIFIC GRAVITY 1.012; UROBILINOGEN,URINE NEGATIVE mg/dL (<2.0)
[2020-06-22] MEDS: IPRATROPIUM/ALBUTEROL 0.5-2.5 MG/3 ML AMPUL NEB SCH ×3 (08:13→21:29)
[2020-06-22] MEDS ORDERED: BISACODYL 10 MG SUPP.RECT PR ONE (10:45)
--- NOTE | 2020-06-22 11:56 | PDOC PROGRESS REPORT ---
Subjective Progress Note for:: 06/22/20 Reason For Visit: Patient seen on dialysis today. He is sleeping but easily arousable. Wants to be left alone and not disturbed. He denies any history of chest pain or shortness of breath or abdominal pains. Still has current NG tube that is draining quite a bit of fluid. Review of prior imaging studies done shows that he also had a markedly distended bladder suggestive of bladder outlet obstruction. However note that he has had a good urine output today. Discussed about and at least an I and O catheter but he refuses. Labs and medications were reviewed. Dialysis orders were reviewed with the treating dialysis nurse. Physical Exam Vital Signs: Temp Pulse Resp BP Pulse Ox 97.4 F 80 16 93/67 L 95 06/22/20 03:37 06/22/20 08:15 06/22/20 08:15 06/22/20 03:37 06/22/20 08:15 Intake & Output 06/21/20 06/22/20 06/23/20 06:59 06:59 06:59 Intake Total 3000 1250 900 Output Total 3300 1200 1500 Balance -300 50 -600 Weight 66.8 kg 61.2 kg General appearance: PRESENT: no acute distress Respiratory exam: PRESENT: clear to auscultation [place], decreased breath sounds. ABSENT: crackles Cardiovascular exam: PRESENT: +S1, +S2 GI/Abdominal exam: PRESENT: ascites, distended, normal bowel sounds, soft. ABSENT: firm, guarding, organomegaly Extremities exam: ABSENT: pedal edema Neurological exam: PRESENT: alert, awake, oriented to person Psychiatric exam: PRESENT: depressed, flat affect Results Laboratory Results: 06/22/20 05:15 06/22/20 05:15 06/21/20 06/22/20 06/22/20 18:20 05:15 05:15 WBC 14.6 H 14.3 H RBC 4.53 4.59 Hgb 12.8 L 12.8 L Hct 38.7 39.4 MCV 85 86 MCH 28.3 27.9 MCHC 33.2 32.5 RDW 19.1 H 19.4 H Plt Count 150 175 Sodium 129.0 L Potassium 3.2 L Chloride 96 L Carbon Dioxide 28 Anion Gap 5 BUN 33 H Creatinine 1.51 H Est GFR ( Amer) 58 L Glucose 123 H Calcium 8.3 L Urine Color Urine Appearance Urine pH Ur Specific [place] Urine Protein Urine Glucose (UA) Urine Ketones Urine Blood Urine Nitrite Ur Leukocyte Esterase Urine WBC (Auto) Urine RBC (Auto) 06/22/20 06:52 WBC RBC Hgb Hct MCV MCH MCHC RDW Plt Count Sodium Potassium Chloride Carbon Dioxide Anion Gap BUN Creatinine Est GFR ( Amer) Glucose Calcium Urine Color YELLOW Urine Appearance CLEAR Urine pH 6.0 Ur Specific [place] 1.012 Urine Protein NEGATIVE Urine Glucose (UA) NEGATIVE Urine Ketones NEGATIVE Urine Blood SMALL H Urine Nitrite NEGATIVE Ur Leukocyte Esterase SMALL H Urine WBC (Auto) 9 Urine RBC (Auto) 7 06/07/20 06/07/20 06/07/20 12:24 12:24 15:08 Creatine Kinase 34 L Troponin I 0.035 0.041 NT-Pro-B Natriuret Pep 06/07/20 06/07/20 06/08/20 16:45 22:01 05:25 Creatine Kinase 35 L 40 L 35 L Troponin I NT-Pro-B Natriuret Pep 06/08/20 05:25 Creatine Kinase Troponin I NT-Pro-B Natriuret Pep [id number] H Impressions: Head CT 06/07/20 13:02 IMPRESSION: Stable CT of the brain with bifrontal encephalomalacia. No acute intracranial event. EVIDENCE OF ACUTE STROKE: NO. Thoracentesis Ultrasound 06/08/20 00:00 IMPRESSION: SUCCESSFUL THORACENTESIS AND CHEST TUBE PLACEMENT USING ULTRASOUND GUIDANCE. Chest CT 06/09/20 00:00 IMPRESSION: 1. RIGHT-SIDED PIGTAIL PLEURAL CATHETER WITH INTERVAL DECREASE IN THE PLEURAL EFFUSION. THERE IS NOW A MILD TO MODERATE RIGHT PNEUMOTHORAX. THE CATHETER WILL BE READJUSTED. 2. MODERATE LEFT PLEURAL EFFUSION, UNCHANGED. DIFFUSE AIRSPACE DISEASE UNCHANGED. Abdomen/Pelvis CT 06/17/20 00:00 IMPRESSION: 1. Small bowel obstruction with transition point in the left mid abdomen. This may be a high-grade partial obstruction. Distal small bowel and colon are decompressed. 2. Marked urinary bladder distention, suggestive of bladder outlet obstruction. Clinical correlation is recommended. 3. Loculated right hydropneumothorax and small left pleural effusion, not significantly changed. Compressive atelectasis at the lung bases. 4. Moderate ascites, slightly decreased from previous examination. 5. Mildly nodular contour of the liver, nonspecific however could indicate underlying hepatic cirrhosis. Clinical correlation is with recommended. 6. Diffuse subcutaneous edema, suggestive of fluid overload. 7. Colonic diverticulosis without evidence of diverticulitis. Chest X-Ray 06/19/20 00:00 IMPRESSION: No significant interval change. Persistent consolidation in the right lung with loculated right pleural effusion, stable. KUB X-Ray 06/21/20 00:00 IMPRESSION: NG tube as described. Other findings as described. Assessment & Plan - Diagnosis (1) ESRD (end stage renal disease) on dialysis Is this a current diagnosis for this admission?: Yes Plan: Initially presented with acute on chronic kidney disease but now seems to have attained ESRD. Discussed with the patient about his markedly distended bladder and it will be appropriate to at least have an I and O catheter just to make sure that he is not having any continued obstruction because he seems to have kincaid ddenly brought 1200 cc of urine out today. However he refuses. Patient currently undergoing dialysis through an IJ PermCath. Plan to remove 1-2 L as tolerated. Dialysis orders were reviewed with treating dialysis nurse.. (2) Ascites Qualifiers: Ascites type: due to alcoholic cirrhosis Qualified Code(s): K70.31 - Alcoholic cirrhosis of liver with ascites Is this a current diagnosis for this admission?: Yes Plan: Monitor for the need of paracentesis. (3) Atrial fibrillation Qualifiers: Atrial fibrillation type: longstanding persistent Qualified Code(s): I48.11 - Longstanding persistent atrial fibrillation Is this a current diagnosis for this admission?: Yes Plan: Rate controlled stable. (4) CHF (congestive heart failure) Qualifiers: Heart failure type: combined systolic and diastolic Heart failure chronicity: chronic Qualified Code(s): I50.42 - Chronic combined systolic (congestive) and diastolic (congestive) heart failure Is this a current diagnosis for this admission?: Yes Plan: Status quo. being managed by hospitalist and cardiology. (5) Ventricular tachyarrhythmia Is this a current diagnosis for this admission?: Yes Plan: Status post cardioversion and stable. (6) Bilateral pleural effusion Plan: Has had thoracentesis followed by right chest tube placement which has now been removed. He has now undergone pleurodesis. (7) H/O mitral valve replacement with mechanical valve Is this a current diagnosis for this admission?: Yes Plan: Status quo. (8) Patient noncompliance Plan: Status quo. (9) Hypotension Qualifiers: Hypotension type: idiopathic hypotension Qualified Code(s): I95.0 - Idiopathic hypotension Is this a current diagnosis for this admission?: Yes Plan: Off dopamine drip and currently just on Midodrin and maintaining systolics. (10) Hyponatremia Is this a current diagnosis for this admission?: Yes Plan: See response to some fluid removal. Monitor. (11) Small bowel obstruction Is this a current diagnosis for this admission?: Yes Plan: Refuses laxatives. Now with NG gastric decompression. Being managed by hospitalist. (12) Bladder outlet obstruction Plan: Patient has refused Mccall catheter. Fortunately he is started to produce good urine output today. Advised at least an I and O catheter just to see if he still got persistent obstruction. If not would recommend to do a bladder scan pre-and post void.
[2020-06-22] MEDS: BISACODYL 10 MG SUPP.RECT PR SCH (12:02)
[2020-06-22] MEDS: METOPROLOL TARTRATE 50 MG TABLET NG SCH ×2 (12:03→23:33)
[2020-06-22] MEDS: SPIRONOLACTONE 25 MG TABLET NG SCH (12:03)
[2020-06-22] MEDS: FUROSEMIDE INJ/PF 20 MG/2 ML SDV IV SCH ×2 (12:04→23:32)
[2020-06-22] MEDS: LIDOCAINE 5% (700 MG) TRANSDERMAL ADH..PATCH TP SCH (12:04)
[2020-06-22] MEDS: FLUTICASONE NASAL SPRAY 50 MCG/SPRY 120 SPRAY/16 GM NASL SCH (12:04)
--- NOTE | 2020-06-22 13:10 | RADIOLOGY REPORT (SQ) ---
EXAM DESCRIPTION: KUB/ABDOMEN (SINGLE VIEW) IMAGES COMPLETED DATE/TIME: 06/22/2020 12:54 pm REASON FOR STUDY: sbo COMPARISON: None. NUMBER OF VIEWS: One view. TECHNIQUE: Supine radiographic image of the abdomen acquired. LIMITATIONS: None. FINDINGS: BOWEL GAS PATTERN: There are persistent gas-filled loops of jejunum on the left. CALCIFICATIONS: No suspicious calcifications. SOFT TISSUES: No gross mass or suggestion of organomegaly. HARDWARE: None in the abdomen. BONES: No acute fracture. No worrisome bone lesions. OTHER: No other significant finding. IMPRESSION: Partial small bowel obstruction TECHNICAL DOCUMENTATION: JOB ID: [id number] 2010 [employer]- All Rights Reserved Reading location - IP/workstation name: [email or web address]
[2020-06-22] MEDS: DEXTROSE 5%-LACTATED RINGERS 1,000 ML IV PRN (13:55)
--- NOTE | 2020-06-22 16:13 | PDOC PROGRESS REPORT ---
Subjective Progress Note for:: 06/22/20 Subjective:: Patient was seen on afternoon rounds following return from dialysis. He is found resting in bed, comfortably, on room air. NG tube clamped for medications, otherwise to low wall suction. Patient states that he feels fine; denies new complaints. Unsure if he is pass ing gas, however, did have a small/hard, bowel movement following Dulcolax suppository yesterday. He again declines enema. He is agreeable to further suppositories. He tells me that he is also willing to work with physical therapy; asks that they come tomorrow as he is tired following dialysis today. States that his intention is to discharge to home where he lives with a friend. Otherwise, he has no questions or concerns at this time. He denies fever, chills, chest pain, palpitations, dyspnea, orthopnea, abdominal pain, emesis, diarrhea. No concerns per nursing. Reason For Visit: V TACHYCARDIA Physical Exam Vital Signs: Temp Pulse Resp BP Pulse Ox 97.4 F 79 16 105/73 96 06/22/20 11:15 06/22/20 16:01 06/22/20 16:01 06/22/20 11:15 06/22/20 16:01 Intake & Output 06/21/20 06/22/20 06/23/20 06:59 06:59 06:59 Intake Total 3000 1250 1900 Output Total 3300 1200 1500 Balance -300 50 400 Weight 66.8 kg 61.2 kg General appearance: PRESENT: no acute distress, well-developed, well-nourished Head exam: PRESENT: atraumatic, normocephalic Eye exam: PRESENT: conjunctiva pink, EOMI, PERRLA. ABSENT: scleral icterus Mouth exam: PRESENT: moist, tongue midline Teeth exam: PRESENT: poor dentation Respiratory exam: PRESENT: clear to auscultation [place], symmetrical, unlabored. ABSENT: rales, rhonchi, wheezes Cardiovascular exam: PRESENT: RRR. ABSENT: diastolic murmur, rubs, systolic m urmur Pulses: PRESENT: normal dorsalis pedis pul Vascular exam: PRESENT: normal capillary refill GI/Abdominal exam: PRESENT: ascites, distended, firm, hypoactive bowel sounds, other - NG tube. ABSENT: guarding, mass, organolmegaly, rebound, tenderness Rectal exam: PRESENT: deferred Gentrourinary exam: PRESENT: indwelling catheter Extremities exam: PRESENT: full ROM. ABSENT: calf tenderness, clubbing, pedal edema Neurological exam: PRESENT: alert, awake, oriented to person, oriented to place, oriented to time, oriented to situation, CN II-XII grossly intact. ABSENT: motor sensory deficit Psychiatric exam: PRESENT: appropriate affect, normal mood. ABSENT: homicidal ideation, suicidal ideation Skin exam: PRESENT: dry, intact, warm. ABSENT: cyanosis, rash Results Laboratory Results: 06/22/20 05:15 06/22/20 05:15 06/21/20 06/22/20 06/22/20 18:20 05:15 05:15 WBC 14.6 H 14.3 H RBC 4.53 4.59 Hgb 12.8 L 12.8 L Hct 38.7 39.4 MCV 85 86 MCH 28.3 27.9 MCHC 33.2 32.5 RDW 19.1 H 19.4 H Plt Count 150 175 Sodium 129.0 L Potassium 3.2 L Chloride 96 L Carbon Dioxide 28 Anion Gap 5 BUN 33 H Creatinine 1.51 H Est GFR ( Amer) 58 L Glucose 123 H Calcium 8.3 L Urine Color Urine Appearance Urine pH Ur Specific Kimball Urine Protein Urine Glucose (UA) Urine Ketones Urine Blood Urine Nitrite Ur Leukocyte Esterase Urine WBC (Auto) Urine RBC (Auto) 06/22/20 06:52 WBC RBC Hgb Hct MCV MCH MCHC RDW Plt Count Sodium Potassium Chloride Carbon Dioxide Anion Gap BUN Creatinine Est GFR ( Amer) Glucose Calcium Urine Color YELLOW Urine Appearance CLEAR Urine pH 6.0 Ur Specific Kimball 1.012 Urine Protein NEGATIVE Urine Glucose (UA) NEGATIVE Urine Ketones NEGATIVE Urine Blood SMALL H Urine Nitrite NEGATIVE Ur Leukocyte Esterase SMALL H Urine WBC (Auto) 9 Urine RBC (Auto) 7 06/07/20 06/07/20 06/07/20 12:24 12:24 15:08 Creatine Kinase 34 L Troponin I 0.035 0.041 NT-Pro-B Natriuret Pep 06/07/20 06/07/20 06/08/20 16:45 22:01 05:25 Creatine Kinase 35 L 40 L 35 L Troponin I NT-Pro-B Natriuret Pep 06/08/20 05:25 Creatine Kinase Troponin I NT-Pro-B Natriuret Pep 47029 H Impressions: Head CT 06/07/20 13:02 IMPRESSION: Stable CT of the brain with bifrontal encephalomalacia. No acute intracranial event. EVIDENCE OF ACUTE STROKE: NO. Thoracentesis Ultrasound 06/08/20 00:00 IMPRESSION: SUCCESSFUL THORACENTESIS AND CHEST TUBE PLACEMENT USING ULTRASOUND GUIDANCE. Chest CT 06/09/20 00:00 IMPRESSION: 1. RIGHT-SIDED PIGTAIL PLEURAL CATHETER WITH INTERVAL DECREASE IN THE PLEURAL EFFUSION. THERE IS NOW A MILD TO MODERATE RIGHT PNEUMOTHORAX. THE CATHETER WILL BE READJUSTED. 2. MODERATE LEFT PLEURAL EFFUSION, UNCHANGED. DIFFUSE AIRSPACE DISEASE UNCHANGED. Abdomen/Pelvis CT 06/17/20 00:00 IMPRESSION: 1. Small bowel obstruction with transition point in the left mid abdomen. This may be a high-grade partial obstruction. Distal small bowel and colon are decompressed. 2. Marked urinary bladder distention, suggestive of bladder outlet obstruction. Clinical correlation is recommended. 3. Loculated right hydropneumothorax and small left pleural effusion, not significantly changed. Compressive atelectasis at the lung bases. 4. Moderate ascites, slightly decreased from previous examination. 5. Mildly nodular contour of the liver, nonspecific however could indicate underlying hepatic cirrhosis. Clinical correlation is with recommended. 6. Diffuse subcutaneous edema, suggestive of fluid overload. 7. Colonic diverticulosis without evidence of diverticulitis. Chest X-Ray 06/19/20 00:00 IMPRESSION: No significant interval change. Persistent consolidation in the right lung with loculated right pleural effusion, stable. KUB X-Ray 06/22/20 00:00 IMPRESSION: Partial small bowel obstruction Assessment and Plan - Diagnosis (1) Small bowel obstruction Is this a current diagnosis for this admission?: Yes Plan: Patient still has NG tube in place, tolerating ice chips, not passing flatus, had one small bowel movement yesterday (small/hard stool). Remains distended, hypoactive however no abdominal pain. CT abdomen positive for high-grade partial obstruction on CT with a transition point in the left mid abdomen. KUB shows persistent mildly dilated loops of small bowel to the left of midline. Gas and fecal material in the rectum. KUB shows persistent small bowel obstruction. Continue NG tube decompression. Monitor electrolytes and volume status. Continue to decline enema; agreeable to continued suppositories. Avoid IV reglan r/t high QTc. Will obtain PT consultation; patient should begin ambulating in hallways several times daily. Discussed with Dr. Phelps today; recommend starting mineral oil per NG tube every 6 hours. Appreciate his recommendations. Consultation if the patient does not demonstrate appreciable improvement tomorrow. (2) DEMETRIUS (acute kidney injury) Is this a current diagnosis for this admission?: Yes Plan: Acute on chronic renal failure. History of end-stage renal disease. Appears euvolemic. Nephrology is consulted; receiving scheduled hemodialysis. Monitor volume status. Monitor electrolytes and replace as needed. Mccall in place for strict I&Os (3) Ascites Qualifiers: Ascites type: due to alcoholic cirrhosis Qualified Code(s): K70.31 - Alcoholic cirrhosis of liver with ascites Is this a current diagnosis for this admission?: Yes Plan: Monitoring for fluid overload, seems to be fairly euvolemic at this time Continue furosemide and spironolactone. Nephrology consulted for dialysis. (4) Atrial fibrillation Qualifiers: Atrial fibrillation type: longstanding persistent Qualified Code(s): I48.11 - Longstanding persistent atrial fibrillation Is this a current diagnosis for this admission?: Yes Plan: Sinus rhythm. Rate controlled. Was initially on heparin drip and transitioned to Coumadin. INR supratherapeutic; 5.15-> 3.91 Continue to monitor on telemetry. Continue beta-blockers Coumadin resumed; pharmacy to dose. Cardiology previous consulted; have signed off. Reconsult as needed. (5) CHF (congestive heart failure) Qualifiers: Heart failure type: combined systolic and diastolic Heart failure chronicity: chronic Qualified Code(s): I50.42 - Chronic combined systolic (congestive) and diastolic (congestive) heart failure Is this a current diagnosis for this admission?: Yes Plan: Acutely exacerbated on admission. Appears euvolemic at the moment. proBNP 16,800 on admission. (06/07/2020) 2D echo ejection fraction 25 to 30% with moderate pulmonary hypertension. Mechanical mitral valve.Per previous physician Continue cardiac diet, beta-blockers, Aldactone, furosemide. Cardiology previously consulted; have signed off. Reconsult as necessary and at time of discharge to arrange for LifeVest. (6) COPD (chronic obstructive pulmonary disease) Qualifiers: COPD type: unspecified COPD Qualified Code(s): J44.9 - Chronic obstructive pulmonary disease, unspecified Is this a current diagnosis for this admission?: Yes Plan: Does not appear to be acutely exacerbated. No indications for antibiotic or steroid therapy at this time. We will decrease frequency of scheduled nebs. (7) Hydrothorax Is this a current diagnosis for this admission?: Yes Plan: Resolved. History of recurrent pleural effusion. Patient had a chest tube placed on the right chest. Status post chest tube removal on 06/17/2020. s/p pleurodesis. Patient complaining of right-sided chest pain pleuritic. PO2 WNL on RA Analgesics as needed. Encourage pulmonary toilet with incentive spirometer, flutter valve, position change. Monitor vitals. (8) Hypoglycemia Is this a current diagnosis for this admission?: Yes Plan: Hemoglobin A1c 5.1. Patient has been n.p.o. for several days due to small bowel obstruction. Continue on D5 LR and hypoglycemic protocol. Patient may need to be started on TPN at some point as his small bowel obstruction is not improving. (9) Mechanical heart valve present Is this a current diagnosis for this admission?: Yes Plan: History of aortic stenosis status post mechanical valve placement on Saturday patient hospitalization was complicated by PEA and remained in hospital for 3 to 4 months and [facility]. As per recent echo mechanical valve functioning properly. Anticoagulated with Coumadin. Goal of INR 2.5-3.5. (10) Pneumothorax, iatrogenic Is this a current diagnosis for this admission?: Yes Plan: Resolved. Status post pleurodesis by surgery. SPO2 WNL on RA. Repeat chest x-ray shows resolution of pneumothorax. (11) Ventricular tachyarrhythmia Is this a current diagnosis for this admission?: Yes Plan: Sinus rhythm. On beta-blockers. Was noticed to have wide-complex tachycardia at the rate of 220 reported by EMS, status post 100 J shock. As per cardiology note patient is a will require implantable cardioverter defibrillator however he is not a candidate given his multiorgan failure and nutritional status. Cardiology consulted. Recommendation at this time is medical management and optimizing electrolytes. Reconsult cardiology at time of discharge. - Time Time Spent with patient: 35 or more minutes Anticipated Discharge Disposition: Home with Home Health Anticipated Discharge Timeframe: >72 hrs
[2020-06-22] MEDS: MINERAL OIL 30 ML UDCUP NG SCH ×2 (18:41→23:37)
[2020-06-22] MEDS ORDERED: WARFARIN SODIUM 3 MG TABLET PO SCH (22:00)
[2020-06-23 04:43] LABS: HEMOGLOBIN 13.6 g/dL (13.5-17.0); MEAN CORPUSCULAR HEMOGLOBIN 28.3 pg (27.0-33.4); MEAN CORPUSCULAR HGB CONC 33.2 g/dL (32.0-36.0); MEAN CORPUSCULAR VOLUME 85 fl (80-97); PLATELET COUNT 209 10^3/uL (150-450); RED BLOOD COUNT 4.81 10^6/uL (4.35-5.55); RED CELL DISTRIBUTION WIDTH 19.5 % (11.5-14.0); WHITE BLOOD COUNT 11.7 10^3/uL (4.0-10.5)
[2020-06-23 04:49] LABS: INTERNATIONAL RATION (INR) 2.45
[2020-06-23 05:59] LABS: ANION GAP 8 (5-19); BLOOD UREA NITROGEN 24 mg/dL (7-20); CALCIUM 8.5 mg/dL (8.4-10.2); CARBON DIOXIDE 25 mmol/L (22-30); CHLORIDE 97 mmol/L (98-107); GLUCOSE 101 mg/dL (75-110); PHOSPHORUS 2.6 mg/dL (2.5-4.5); POTASSIUM 3.4 mmol/L (3.6-5.0)
[2020-06-23] MEDS: MIDODRINE HCL 5 MG TABLET NG SCH ×3 (06:20→23:55)
[2020-06-23] MEDS: PANTOPRAZOLE SODIUM 40 MG PACKET.DR NG SCH ×2 (06:20→17:11)
[2020-06-23] MEDS: MINERAL OIL 30 ML UDCUP NG SCH ×3 (06:20→17:11)
[2020-06-23] MEDS: DEXTROSE 5%-LACTATED RINGERS 1,000 ML IV PRN ×2 (06:30→15:10)
[2020-06-23] MEDS: IPRATROPIUM/ALBUTEROL 0.5-2.5 MG/3 ML AMPUL NEB SCH ×2 (08:34→20:46)
[2020-06-23] MEDS: METOPROLOL TARTRATE 50 MG TABLET NG SCH ×2 (09:43→23:52)
[2020-06-23] MEDS: SPIRONOLACTONE 25 MG TABLET NG SCH (09:44)
[2020-06-23] MEDS: FUROSEMIDE INJ/PF 20 MG/2 ML SDV IV SCH ×2 (09:44→23:53)
[2020-06-23] MEDS: BISACODYL 10 MG SUPP.RECT PR SCH (09:44)
[2020-06-23] MEDS: FLUTICASONE NASAL SPRAY 50 MCG/SPRY 120 SPRAY/16 GM NASL SCH (09:45)
[2020-06-23] MEDS: LIDOCAINE 5% (700 MG) TRANSDERMAL ADH..PATCH TP SCH (09:47)
--- NOTE | 2020-06-23 19:46 | PDOC PROGRESS REPORT ---
Subjective Progress Note for:: 06/23/20 Subjective:: Patient was seen on morning rounds. He is found resting in bed, comfortably, on room air. NG tube clamped. No nausea, vomiting, or abdominal pain. Passing flatus and large BM; states he feels much better and is asking to eat. Otherwise, he has no questions or concerns at this time. He denies fever, chills, chest pain, palpitations, dyspnea, orthopnea, abdominal pain, emesis, diarrhea. No concerns per nursing. Reason For Visit: V TACHYCARDIA Physical Exam Vital Signs: Temp Pulse Resp BP Pulse Ox 97.3 F 68 16 84/65 L 95 06/23/20 00:23 06/23/20 14:00 06/23/20 08:34 06/23/20 00:23 06/23/20 08:34 Intake & Output 06/22/20 06/23/20 06/24/20 06:59 06:59 06:59 Intake Total 1250 2352 693 Output Total 1200 2075 450 Balance 50 277 243 Weight 61.2 kg 53.8 kg General appearance: PRESENT: no acute distress, thin, well-developed, other - dependent pitting edema (flank, sacrum) Head exam: PRESENT: atraumatic, normocephalic Eye exam: PRESENT: conjunctiva pink, EOMI, PERRLA. ABSENT: scleral icterus Mouth exam: PRESENT: moist, tongue midline Teeth exam: PRESENT: poor dentation Respiratory exam: PRESENT: clear to auscultation [place], symmetrical, unlabored, other - room air. ABSENT: rales, rhonchi, wheezes Cardiovascular exam: PRESENT: RRR. ABSENT: diastolic murmur, rubs, systolic murmur Pulses: PRESENT: normal dorsalis pedis pul Vascular exam: PRESENT: normal capillary refill GI/Abdominal exam: PRESENT: ascites, distended, normal bowel sounds, soft. ABSENT: firm, guarding, mass, organolmegaly, rebound, tenderness Rectal exam: PRESENT: deferred Gentrourinary exam: PRESENT: indwelling catheter Extremities exam: PRESENT: full ROM. ABSENT: calf tenderness, clubbing, pedal edema Neurological exam: PRESENT: alert, awake, oriented to person, oriented to place, oriented to time, oriented to situation, CN II-XII grossly intact. ABSENT: motor sensory deficit Psychiatric exam: PRESENT: appropriate affect, normal mood. ABSENT: homicidal ideation, suicidal ideation Skin exam: PRESENT: dry, intact, warm. ABSENT: cyanosis, rash Results Laboratory Results: 06/23/20 04:33 06/23/20 04:33 06/23/20 06/23/20 04:33 04:33 WBC 11.7 H RBC 4.81 Hgb 13.6 Hct 41.0 MCV 85 MCH 28.3 MCHC 33.2 RDW 19.5 H Plt Count 209 Sodium 130.2 L Potassium 3.4 L Chloride 97 L Carbon Dioxide 25 Anion Gap 8 BUN 24 H Creatinine 1.21 Est GFR ( Amer) > 60 Glucose 101 Calcium 8.5 Phosphorus 2.6 Magnesium 1.9 06/07/20 06/07/20 06/07/20 12:24 12:24 15:08 Creatine Kinase 34 L Troponin I 0.035 0.041 NT-Pro-B Natriuret Pep 06/07/20 06/07/20 06/08/20 16:45 22:01 05:25 Creatine Kinase 35 L 40 L 35 L Troponin I NT-Pro-B Natriuret Pep 06/08/20 05:25 Creatine Kinase Troponin I NT-Pro-B Natriuret Pep [id number] H Impressions: Head CT 06/07/20 13:02 IMPRESSION: Stable CT of the brain with bifrontal encephalomalacia. No acute intracranial event. EVIDENCE OF ACUTE STROKE: NO. Thoracentesis Ultrasound 06/08/20 00:00 IMPRESSION: SUCCESSFUL THORACENTESIS AND CHEST TUBE PLACEMENT USING ULTRASOUND GUIDANCE. Chest CT 06/09/20 00:00 IMPRESSION: 1. RIGHT-SIDED PIGTAIL PLEURAL CATHETER WITH INTERVAL DECREASE IN THE PLEURAL EFFUSION. THERE IS NOW A MILD TO MODERATE RIGHT PNEUMOTHORAX. THE CATHETER WILL BE READJUSTED. 2. MODERATE LEFT PLEURAL EFFUSION, UNCHANGED. DIFFUSE AIRSPACE DISEASE UNCHANGED. Abdomen/Pelvis CT 06/17/20 00:00 IMPRESSION: 1. Small bowel obstruction with transition point in the left mid abdomen. This may be a high-grade partial obstruction. Distal small bowel and colon are decompressed. 2. Marked urinary bladder distention, suggestive of bladder outlet obstruction. Clinical correlation is recommended. 3. Loculated right hydropneumothorax and small left pleural effusion, not si gnificantly changed. Compressive atelectasis at the lung bases. 4. Moderate ascites, slightly decreased from previous examination. 5. Mildly nodular contour of the liver, nonspecific however could indicate underlying hepatic cirrhosis. Clinical correlation is with recommended. 6. Diffuse subcutaneous edema, suggestive of fluid overload. 7. Colonic diverticulosis without evidence of diverticulitis. Chest X-Ray 06/19/20 00:00 IMPRESSION: No significant interval change. Persistent consolidation in the right lung with loculated right pleural effusion, stable. KUB X-Ray 06/22/20 00:00 IMPRESSION: Partial small bowel obstruction Assessment and Plan - Diagnosis (1) Small bowel obstruction Is this a current diagnosis for this admission?: Yes Plan: Improved; passing flatus and multiple bowel movements. NG tube clamped; tolerating ice chips and sips of water. CT abdomen positive for high-grade partial obstruction on CT with a transition point in the left mid abdomen. KUB shows persistent mildly dilated loops of small bowel to the left of midline. Gas and fecal material in the rectum. KUB shows persistent small bowel obstruction. Clamped x 12 hours; tolerated well. Will d/c NG tube. Advance to clear liquids. Monitor electrolytes and volume status. (2) DEMETRIUS (acute kidney injury) Is this a current diagnosis for this admission?: Yes Plan: Acute on chronic renal failure. History of end-stage renal disease. Appears euvolemic. Nephrology is consulted; receiving scheduled hemodialysis. Monitor volume status. Monitor electrolytes and replace as needed. Mccall in place for strict I&Os (3) Ascites Qualifiers: Ascites type: due to alcoholic cirrhosis Qualified Code(s): K70.31 - Alcoholic cirrhosis of liver with ascites Is this a current diagnosis for this admission?: Yes Plan: Continue furosemide and spironolactone. Nephrology consulted for dialysis. (4) Atrial fibrillation Qualifiers: Atrial fibrillation type: longstanding persistent Qualified Code(s): I48.11 - Longstanding persistent atrial fibrillation Is this a current diagnosis for this admission?: Yes Plan: Sinus rhythm. Rate controlled. Was initially on heparin drip and transitioned to Coumadin. INR supratherapeutic; 5.15-> 3.91 Continue to monitor on telemetry. Continue beta-blockers Coumadin resumed; pharmacy to dose. Cardiology previous consulted; have signed off. Reconsult as needed. (5) CHF (congestive heart failure) Qualifiers: Heart failure type: combined systolic and diastolic Heart failure chronicity: chronic Qualified Code(s): I50.42 - Chronic combined systolic (congestive) and diastolic (congestive) heart failure Is this a current diagnosis for this admission?: Yes Plan: Acutely exacerbated on admission. Appears euvolemic at the moment. proBNP 16,800 on admission. (06/07/2020) 2D echo ejection fraction 25 to 30% with moderate pulmonary hypertension. Mechanical mitral valve.Per previous physician Continue cardiac diet, beta-blockers, Aldactone, furosemide. Cardiology previously consulted; have signed off. Reconsult as necessary and at time of discharge to arrange for LifeVest. (6) COPD (chronic obstructive pulmonary disease) Qualifiers: COPD type: unspecified COPD Qualified Code(s): J44.9 - Chronic obstructive pulmonary disease, unspecified Is this a current diagnosis for this admission?: Yes Plan: Does not appear to be acutely exacerbated. No indications for antibiotic or steroid therapy at this time. We will decrease frequency of scheduled nebs. (7) Hydrothorax Is this a current diagnosis for this admission?: Yes Plan: Resolved. History of recurrent pleural effusion. Patient had a chest tube placed on the r ight chest. Status post chest tube removal on 06/17/2020. s/p pleurodesis. Patient complaining of right-sided chest pain pleuritic. PO2 WNL on RA Analgesics as needed. Encourage pulmonary toilet with incentive spirometer, flutter valve, position change. Monitor vitals. (8) Hypoglycemia Is this a current diagnosis for this admission?: Yes Plan: Hemoglobin A1c 5.1. Patient has been n.p.o. for several days due to small bowel obstruction. Continue on D5 LR and hypoglycemic protocol. Patient may need to be started on TPN at some point as his small bowel obstruction is not improving. (9) Mechanical heart valve present Is this a current diagnosis for this admission?: Yes Plan: History of aortic stenosis status post mechanical valve placement on Saturday patient hospitalization was complicated by PEA and remained in hospital for 3 to 4 months and [facility]. As per recent echo mechanical valve functioning properly. Anticoagulated with Coumadin. Goal of INR 2.5-3.5. (10) Pneumothorax, iatrogenic Is this a current diagnosis for this admission?: Yes Plan: Resolved. Status post pleurodesis by surgery. SPO2 WNL on RA. Repeat chest x-ray shows resolution of pneumothorax. (11) Ventricular tachyarrhythmia Is this a current diagnosis for this admission?: Yes Plan: Sinus rhythm. On beta-blockers. Was noticed to have wide-complex tachycardia at the rate of 220 reported by EMS, status post 100 J shock. As per cardiology note patient is a will require implantable cardioverter defibrillator however he is not a candidate given his multiorgan failure and nutritional status. Cardiology consulted. Recommendation at this time is medical management and optimizing electrolytes. Reconsult cardiology at time of discharge. (12) Edema Qualifiers: Edema type: due to malnutrition Malnutrition edema type: unspecified malnutrition type Qualified Code(s): E43 - Unspecified severe protein-calorie malnutrition Is this a current diagnosis for this admission?: Yes Plan: Likely secondary to protein calorie malnutrition evidenced by hypoalbuminemia; complicated by acute renal failure. Continue furosemide and spironolactone as above. Nephrology consulted for dialysis. We will trial albumin twice daily to help mobilize fluid. - Time Time Spent with patient: 35 or more minutes Medications reviewed and adjusted accordingly: Yes Anticipated Discharge Disposition: Home with Home Health Anticipated Discharge Timeframe: >72 hrs
[2020-06-23] MEDS: WARFARIN SODIUM 2.5 MG TABLET PO SCH (23:53)
[2020-06-23] MEDS: PHARMACY COMMUNICATION ORDER MC SCH (23:54)
[2020-06-24] MEDS: PHARMACY COMMUNICATION ORDER MC SCH ×2 (00:01→22:41)
[2020-06-24] MEDS ORDERED: HEPARIN SOD (PORCINE) 1,000 UNIT/ML 10 ML VIAL IV PRN (00:14)
[2020-06-24] MEDS: DEXTROSE 5%-LACTATED RINGERS 1,000 ML IV PRN (03:31)
[2020-06-24 06:08] LABS: HEMATOCRIT 42.9 % (37.9-51.0); HEMOGLOBIN 14.1 g/dL (13.5-17.0); MEAN CORPUSCULAR HEMOGLOBIN 28.3 pg (27.0-33.4); MEAN CORPUSCULAR HGB CONC 32.9 g/dL (32.0-36.0); MEAN CORPUSCULAR VOLUME 86 fl (80-97); PLATELET COUNT 281 10^3/uL (150-450); RED BLOOD COUNT 4.99 10^6/uL (4.35-5.55); RED CELL DISTRIBUTION WIDTH 19.4 % (11.5-14.0); WHITE BLOOD COUNT 11.8 10^3/uL (4.0-10.5)
[2020-06-24 06:11] LABS: INTERNATIONAL RATION (INR) 1.84; PROTHROMBIN TIME 21.4 SEC (11.4-15.4)
[2020-06-24] MEDS: MINERAL OIL 30 ML UDCUP NG SCH ×3 (06:26→11:05)
[2020-06-24 06:27] LABS: ANION GAP 9 (5-19); BLOOD UREA NITROGEN 23 mg/dL (7-20); CALCIUM 8.5 mg/dL (8.4-10.2); CARBON DIOXIDE 23 mmol/L (22-30); CHLORIDE 95 mmol/L (98-107); GLUCOSE 128 mg/dL (75-110); POTASSIUM 3.6 mmol/L (3.6-5.0)
[2020-06-24] MEDS: PANTOPRAZOLE SODIUM 40 MG PACKET.DR NG SCH ×2 (06:32→18:22)
[2020-06-24] MEDS: MIDODRINE HCL 5 MG TABLET NG SCH ×2 (06:32→14:38)
[2020-06-24] MEDS: IPRATROPIUM/ALBUTEROL 0.5-2.5 MG/3 ML AMPUL NEB SCH ×2 (08:51→20:28)
--- NOTE | 2020-06-24 10:33 | PDOC PROGRESS REPORT ---
Subjective Progress Note for:: 06/24/20 Subjective:: I am seeing the patient during dialysis this morning. He seems to be pretty comfortable and dialysis is soft for going okay. His blood pressure is acceptable. However he complained of some slight shortness of breath on initiation of dialysis but he said he is better now. His NG tube was removed yesterday and has been on clear liquid so far. He also had a Mccall catheter inserted couple of days ago because of findings of distended bladder on the CT scan of the abdomen. I was told that his urine output is around 400 mL with the Mccall catheter in place although it was not recorded in the intake and output balance. Reason For Visit: V TACHYCARDIA Physical Exam Vital Signs: Temp Pulse Resp BP Pulse Ox 97.2 F 92 16 92/72 L 98 06/24/20 03:34 06/24/20 03:34 06/24/20 03:34 06/24/20 03:34 06/24/20 03:34 Intake & Output 06/23/20 06/24/20 06/25/20 06:59 06:59 06:59 Intake Total 2352 1681 900 Output Total 2075 800 1100 Balance 277 881 -200 Weight 53.8 kg 55 kg Vitals during dialysis: Blood pressure of 114/94, heart rate of 90, blood flow rate of 250 mL/min and dialysate flow rate of 600 mL/min. Exam: General appearance: PRESENT: no acute distress, cooperative, well-developed, well-nourished Head exam: PRESENT: atraumatic, normocephalic Eye exam: PRESENT: conjunctiva slightly pale, PERRLA. ABSENT: scleral icterus Neck exam: ABSENT: JVD Respiratory exam: PRESENT: Diminished breath sounds on the right lower lung [place]. ABSENT: crackles, rales, rhonchi, unlabored, wheezes Cardiovascular exam: PRESENT: Regular rate rhythm -+S1, +S2. ABSENT: diastolic murmur, systolic murmur GI/Abdominal exam: PRESENT: normal bowel sounds, soft. ABSENT: guarding, mass, tenderness Extremities exam: Unchanged grade 1 bilateral lower extremity pitting edema Neurological exam: PRESENT: alert, awake, oriented to person, place and time. Skin exam: PRESENT: dry, warm, Cardiovascular exam: PRESENT: +S1, +S2 GI/Abdominal exam: PRESENT: ascites, distended, normal bowel sounds, soft. ABSENT: firm, guarding, organomegaly Results Laboratory Results: 06/24/20 05:30 06/24/20 05:30 06/24/20 06/24/20 05:30 05:30 WBC 11.8 H RBC 4.99 Hgb 14.1 Hct 42.9 MCV 86 MCH 28.3 MCHC 32.9 RDW 19.4 H Plt Count 281 Sodium 127.4 L Potassium 3.6 Chloride 95 L Carbon Dioxide 23 Anion Gap 9 BUN 23 H Creatinine 1.27 H Est GFR ( Amer) > 60 Glucose 128 H Calcium 8.5 06/07/20 06/07/20 06/07/20 12:24 12:24 15:08 Creatine Kinase 34 L Troponin I 0.035 0.041 NT-Pro-B Natriuret Pep 06/07/20 06/07/20 06/08/20 16:45 22:01 05:25 Creatine Kinase 35 L 40 L 35 L Troponin I NT-Pro-B Natriuret Pep 06/08/20 05:25 Creatine Kinase Troponin I NT-Pro-B Natriuret Pep 06848 H Impressions: Head CT 06/07/20 13:02 IMPRESSION: Stable CT of the brain with bifrontal encephalomalacia. No acute intracranial event. EVIDENCE OF ACUTE STROKE: NO. Thoracentesis Ultrasound 06/08/20 00:00 IMPRESSION: SUCCESSFUL THORACENTESIS AND CHEST TUBE PLACEMENT USING ULTRASOUND GUIDANCE. Chest CT 06/09/20 00:00 IMPRESSION: 1. RIGHT-SIDED PIGTAIL PLEURAL CATHETER WITH INTERVAL DECREASE IN THE PLEURAL EFFUSION. THERE IS NOW A MILD TO MODERATE RIGHT PNEUMOTHORAX. THE CATHETER WILL BE READJUSTED. 2. MODERATE LEFT PLEURAL EFFUSION, UNCHANGED. DIFFUSE AIRSPACE DISEASE UNCHANGED. Abdomen/Pelvis CT 06/17/20 00:00 IMPRESSION: 1. Small bowel obstruction with transition point in the left mid abdomen. This may be a high-grade partial obstruction. Distal small bowel and colon are decompressed. 2. Marked urinary bladder distention, suggestive of bladder outlet obstruction. Clinical correlation is recommended. 3. Loculated right hydropneumothorax and small left pleural effusion, not significantly changed. Compressive atelectasis at the lung bases. 4. Moderate ascites, slightly decreased from previous examination. 5. Mildly nodular contour of the liver, nonspecific however could indicate underlying hepatic cirrhosis. Clinical correlation is with recommended. 6. Diffuse subcutaneous edema, suggestive of fluid overload. 7. Colonic diverticulosis without evidence of diverticulitis. Chest X-Ray 06/19/20 00:00 IMPRESSION: No significant interval change. Persistent consolidation in the right lung with loculated right pleural effusion, stable. KUB X-Ray 06/22/20 00:00 IMPRESSION: Partial small bowel obstruction Assessment & Plan - Diagnosis (1) ESRD (end stage renal disease) on dialysis Is this a current diagnosis for this admission?: Yes Plan: We will do dialysis today for 2.5 hours, using the patient's PermCath, with 3 potassium bath, blood flow rate of 250 mL per minute, dialysate flow rate of 600 mL per minute, ultrafiltration 0.5-1L as tolerated , no heparin and no Procrit. Patient is being closely monitored throughout dialysis treatment especially with hypotension. I recommend changing the furosemide to oral once the patient can take his meds orally. Patient's urine output remains to be very minimal at around 400 mL despite having Mccall catheter due to finding of lower bladder outlet obstruction CT scan. His creatinine has decreased but I think moving forward, with all his other comorbidities and episodes of fluid overload he is better off to stay on dialysis chronically to help manage volume. We will have case management to arrange outpatient chronic dialysis treatment in anticipation of the patient being discharged soon. (2) Bladder outlet obstruction Is this a current diagnosis for this admission?: Yes Plan: Mccall catheter in place currently. Urine output remains minimal. (3) Small bowel obstruction Is this a current diagnosis for this admission?: Yes Plan: NG tube has been removed. Currently tolerating clear liquids. Hospitalist managing. (4) Pleural effusion Is this a current diagnosis for this admission?: Yes Plan: Status post thoracentesis, 06/08 with initial chest tube placement. Chest tube placement revised with pleurodesis on Wednesday 06/13. Chest tube removed. 06/17. (5) CHF (congestive heart failure) Qualifiers: Heart failure type: combined systolic and diastolic Heart failure chronicity: chronic Qualified Code(s): I50.42 - Chronic combined systolic (congestive) and diastolic (congestive) heart failure Is this a current diagnosis for this admission?: Yes Plan: EF of 25 to 30% with moderately reduced right ventricular systolic function. Patient has cardiomyopathy. Cardiology on board. Recommendation includes placement of implantable defibrillator but uncertain if the patient can tolerate the procedure. (6) Ventricular tachyarrhythmia Is this a current diagnosis for this admission?: Yes Plan: Per cardiology. (7) Hypotension Qualifiers: Hypotension type: idiopathic hypotension Qualified Code(s): I95.0 - Idiopathic hypotension Is this a current diagnosis for this admission?: Yes Plan: Likely secondary to poor cardiac function and cardiomyopathy. Currently on midodrine. Adrenal insufficiency has been previously ruled out during previous admission. (8) Hyponatremia Is this a current diagnosis for this admission?: Yes Plan: Chronic and stable. Secondary to hypervolemic state with CHF and ESRD. (9) Atrial fibrillation Qualifiers: Atrial fibrillation type: longstanding persistent Qualified Code(s): I48.11 - Longstanding persistent atrial fibrillation Is this a current diagnosis for this admission?: Yes (10) Ascites Qualifiers: Ascites type: due to alcoholic cirrhosis Qualified Code(s): K70.31 - Alcoholic cirrhosis of liver with ascites Is this a current diagnosis for this admission?: Yes (11) Pneumothorax, iatrogenic Is this a current diagnosis for this admission?: Yes Plan: Post chest tube placement. (12) H/O mitral valve replacement with mechanical valve Is this a current diagnosis for this admission?: Yes Plan: Currently on warfarin. - Notes Notes: Discussed with YI Velez. - Time Time with patient: 15-25 minutes
[2020-06-24] MEDS: METOPROLOL TARTRATE 50 MG TABLET NG SCH (10:38)
[2020-06-24] MEDS: FUROSEMIDE INJ/PF 20 MG/2 ML SDV IV SCH ×2 (10:38→22:38)
[2020-06-24] MEDS: SPIRONOLACTONE 25 MG TABLET NG SCH (10:38)
[2020-06-24] MEDS: BISACODYL 10 MG SUPP.RECT PR SCH (10:39)
[2020-06-24] MEDS: ALBUMIN HUMAN 12.5 GM/50 ML RTUINJ IV SCH ×2 (10:39→18:22)
[2020-06-24] MEDS: FLUTICASONE NASAL SPRAY 50 MCG/SPRY 120 SPRAY/16 GM NASL SCH (10:39)
[2020-06-24] MEDS: LIDOCAINE 5% (700 MG) TRANSDERMAL ADH..PATCH TP SCH (10:40)
--- NOTE | 2020-06-24 12:28 | RADIOLOGY REPORT (SQ) ---
EXAM DESCRIPTION: CHEST 2 VIEWS IMAGES COMPLETED DATE/TIME: 06/24/2020 12:17 pm REASON FOR STUDY: SOB COMPARISON: 06/19/2020 EXAM PARAMETERS: NUMBER OF VIEWS: two views TECHNIQUE: Digital Frontal and Lateral radiographic views of the chest acquired. RADIATION DOSE: NA LIMITATIONS: none FINDINGS: LUNGS AND PLEURA: Persistent bilateral airspace disease right greater than left most likel y asymmetric edema. Bilateral pleural effusions. Air-fluid levels are noted in the right base. MEDIASTINUM AND HILAR STRUCTURES: No masses or contour abnormalities. HEART AND VASCULAR STRUCTURES: Unchanged. BONES: No acute findings. HARDWARE: Dialysis catheter remains in place. Endotracheal tube and NG tube have been removed since prior study. Sternotomy wires are in place along with valvular prosthesis and loop recorder. OTHER: No other significant finding. IMPRESSION: Persistent diffuse right-sided airspace disease. Mild left-sided interstitial infiltrat e. Bilateral pleural effusions with air-fluid levels noted in the right base. Recommend chest CT fo r further characterization. TECHNICAL DOCUMENTATION: JOB ID: [id number] 2010 [employer]- All Rights Reserved Reading location - IP/workstation name: [email or web address]
--- NOTE | 2020-06-24 18:12 | PDOC PROGRESS REPORT ---
Subjective Progress Note for:: 06/24/20 Subjective:: Patient was seen on afternoon rounds. He is found resting in the recliner, comfortably, on room air. No nausea, vomiting, or abdominal pain. Passing flatus and large BM; though with continued abd distention. Tolerating clear diet well and requests to advance diet. Tells me that he wants to discharge to home to live w/ his [id number]. He is encouraged to call her and discuss this as a potential option, otherwise, he does have bed offer at [facility]. He has no other questions or concerns at this time. He denies fever, chills, chest pain, palpitations, dyspnea, orthopnea, abdominal pain, emesis, diarrhea. No concerns per nursing. Reason For Visit: V TACHYCARDIA Physical Exam Vital Signs: Temp Pulse Resp BP Pulse Ox 97.2 F 84 16 92/72 L 98 06/24/20 03:34 06/24/20 14:00 06/24/20 03:34 06/24/20 03:34 06/24/20 03:34 Intake & Output 06/23/20 06/24/20 06/25/20 06:59 06:59 06:59 Intake Total 2352 1681 1160 Output Total 2075 800 1100 Balance 277 881 60 Weight 53.8 kg 55 kg General appearance: PRESENT: no acute distress, cooperative, well-developed, other - dependent pitting edema (flank, sacrum) Head exam: PRESENT: atraumatic, normocephalic Eye exam: PRESENT: conjunctiva pink, EOMI, PERRLA. ABSENT: scleral icterus Mouth exam: PRESENT: moist, tongue midline Teeth exam: PRESENT: poor dentation Respiratory exam: PRESENT: clear to auscultation [place], symmetrical, unlabored. ABSENT: rales, rhonchi, wheezes Cardiovascular exam: PRESENT: RRR, +S1, +S2. ABSENT: diastolic murmur, rubs, systolic murmur Vascular exam: PRESENT: normal capillary refill GI/Abdominal exam: PRESENT: ascites, distended, normal bowel sounds, soft. ABSENT: guarding, mass, organolmegaly, rebound, tenderness Rectal exam: PRESENT: deferred Gentrourinary exam: PRESENT: indwelling catheter Extremities exam: PRESENT: full ROM. ABSENT: calf tenderness, clubbing, pedal edema Musculoskeletal exam: PRESENT: ambulatory Neurological exam: PRESENT: alert, awake, oriented to person, oriented to place, oriented to time, oriented to situation, CN II-XII grossly intact. ABSENT: motor sensory deficit Psychiatric exam: PRESENT: appropriate affect, normal mood. ABSENT: homicidal ideation, suicidal ideation Skin exam: PRESENT: dry, intact, warm. ABSENT: cyanosis, rash Results Laboratory Results: 06/24/20 05:30 06/24/20 05:30 06/24/20 06/24/20 05:30 05:30 WBC 11.8 H RBC 4.99 Hgb 14.1 Hct 42.9 MCV 86 MCH 28.3 MCHC 32.9 RDW 19.4 H Plt Count 281 Sodium 127.4 L Potassium 3.6 Chloride 95 L Carbon Dioxide 23 Anion Gap 9 BUN 23 H Creatinine 1.27 H Est GFR ( Amer) > 60 Glucose 128 H Calcium 8.5 06/07/20 06/07/20 06/07/20 12:24 12:24 15:08 Creatine Kinase 34 L Troponin I 0.035 0.041 NT-Pro-B Natriuret Pep 06/07/20 06/07/20 06/08/20 16:45 22:01 05:25 Creatine Kinase 35 L 40 L 35 L Troponin I NT-Pro-B Natriuret Pep 06/08/20 05:25 Creatine Kinase Troponin I NT-Pro-B Natriuret Pep 14014 H Impressions: Head CT 06/07/20 13:02 IMPRESSION: Stable CT of the brain with bifrontal encephalomalacia. No acute intracranial event. EVIDENCE OF ACUTE STROKE: NO. Thoracentesis Ultrasound 06/08/20 00:00 IMPRESSION: SUCCESSFUL THORACENTESIS AND CHEST TUBE PLACEMENT USING ULTRASOUND GUIDANCE. Chest CT 06/09/20 00:00 IMPRESSION: 1. RIGHT-SIDED PIGTAIL PLEURAL CATHETER WITH INTERVAL DECREASE IN THE PLEURAL EFFUSION. THERE IS NOW A MILD TO MODERATE RIGHT PNEUMOTHORAX. THE CATHETER WILL BE READJUSTED. 2. MODERATE LEFT PLEURAL EFFUSION, UNCHANGED. DIFFUSE AIRSPACE DISEASE UNCHANGED. Abdomen/Pelvis CT 06/17/20 00:00 IMPRESSION: 1. Small bowel obstruction with transition point in the left mid abdomen. This may be a high-grade partial obstruction. Distal small bowel and colon are decompressed. 2. Marked urinary bladder distention, suggestive of bladder outlet obstruction. Clinical correlation is recommended. 3. Loculated right hydropneumothorax and small left pleural effusion, not significantly changed. Compressive atelectasis at the lung bases. 4. Moderate ascites, slightly decreased from previous examination. 5. Mildly nodular contour of the liver, nonspecific however could indicate underlying hepatic cirrhosis. Clinical correlation is with recommended. 6. Diffuse subcutaneous edema, suggestive of fluid overload. 7. Colonic diverticulosis without evidence of diverticulitis. KUB X-Ray 06/22/20 00:00 IMPRESSION: Partial small bowel obstruction Chest X-Ray 06/24/20 00:00 IMPRESSION: Persistent diffuse right-sided airspace disease. Mild left-sided interstitial infiltrate. Bilateral pleural effusions with air-fluid levels noted in the right base. Recommend chest CT for further characterization. Assessment and Plan - Diagnosis (1) Dyspnea Qualifiers: Dyspnea type: unspecified Qualified Code(s): R06.00 - Dyspnea, unspecified Is this a current diagnosis for this admission?: Yes Plan: Patient reports dyspnea at rest. Lung sounds are diminished He is maintaining oxygen saturations on room air. Chest x-ray shows persistent diffuse right-sided airspace disease with mild left-sided interstitial infiltrate, bilateral pleural effusions with air-fluid levels noted to the right base with recommendations for chest CT. Chest CT pending. Continue scheduled and as needed nebulizer treatments. Start Mucinex twice daily. (2) Small bowel obstruction Is this a current diagnosis for this admission?: Yes Plan: Resolved; passing flatus and multiple bowel movements. Tolerating clear liquids. CT abdomen positive for high-grade partial obstruction on CT with a transition point in the left mid abdomen. KUB shows persistent mildly dilated loops of small bowel to the left of midline. Gas and fecal material in the rectum. KUB shows persistent small bowel obstruction. NG tube discontinued. Advance to full liquids. Monitor electrolytes and volume status. (3) DEMETRIUS (acute kidney injury) Is this a current diagnosis for this admission?: Yes Plan: Chronic renal failure. History of end-stage renal disease. Nephrology is consulted; receiving scheduled hemodialysis. Spoke w/ Dr. Rush, patient will require chronic dialysis following discharge. Monitor volume status. Monitor electrolytes and replace as needed. Mccall in place for strict I&Os (4) Ascites Qualifiers: Ascites type: due to alcoholic cirrhosis Qualified Code(s): K70.31 - Alcoholic cirrhosis of liver with ascites Is this a current diagnosis for this admission?: Yes Plan: Continue furosemide and spironolactone. Nephrology consulted for dialysis. (5) Atrial fibrillation Qualifiers: Atrial fibrillation type: longstanding persistent Qualified Code(s): I48.11 - Longstanding persistent atrial fibrillation Is this a current diagnosis for this admission?: Yes Plan: Sinus rhythm. Rate controlled. Was initially on heparin drip and transitioned to Coumadin. INR supratherapeutic; 5.15-> 3.91 Continue to monitor on telemetry. Continue beta-blockers Coumadin resumed; pharmacy to dose. Will bridge w/ Lovenox. Cardiology previous consulted; have signed off. Reconsult as needed. (6) CHF (congestive heart failure) Qualifiers: Heart failure type: combined systolic and diastolic Heart failure chronicity: chronic Qualified Code(s): I50.42 - Chronic combined systolic (congestive) and diastolic (congestive) heart failure Is this a current diagnosis for this admission?: Yes Plan: Acutely exacerbated on admission. proBNP 16,800 on admission. (06/07/2020) 2D echo ejection fraction 25 to 30% with moderate pulmonary hypertension. Mechanical mitral valve.Per previous physician Continue cardiac diet, beta-blockers, Aldactone, furosemide. Cardiology previously consulted; have signed off. Reconsult as necessary and at time of discharge to arrange for LifeVest. (7) COPD (chronic obstructive pulmonary disease) Qualifiers: COPD type: unspecified COPD Qualified Code(s): J44.9 - Chronic obstructive pulmonary disease, unspecified Is this a current diagnosis for this admission?: Yes Plan: Does not appear to be acutely exacerbated. No indications for antibiotic or steroid therapy at this time. We will decrease frequency of scheduled nebs. (8) Hydrothorax Is this a current diagnosis for this admission?: Yes Plan: Resolved. History of recurrent pleural effusion. Patient had a chest tube placed on the right chest. Status post chest tube removal on 06/17/2020. s/p pleurodesis. Patient complaining of right-sided chest pain pleuritic. PO2 WNL on RA Analgesics as needed. Encourage pulmonary toilet with incentive spirometer, flutter valve, position change. Monitor vitals. (9) Hypoglycemia Is this a current diagnosis for this admission?: Yes Plan: Resolved. Hemoglobin A1c 5.1. Patient was been n.p.o. for several days due to small bowel obstruction. (10) Mechanical heart valve present Is this a current diagnosis for this admission?: Yes Plan: History of aortic stenosis status post mechanical valve placement on Saturday patient hospitalization was complicated by PEA and remained in hospital for 3 to 4 months and [facility]. As per recent echo mechanical valve functioning properly. Anticoagulated with Coumadin. Goal of INR 2.5-3.5. (11) Pneumothorax, iatrogenic Is this a current diagnosis for this admission?: Yes Plan: Resolved. Status post pleurodesis by surgery. SPO2 WNL on RA. Repeat chest x-ray shows resolution of pneumothorax. (12) Ventricular tachyarrhythmia Is this a current diagnosis for this admission?: Yes Plan: Sinus rhythm. On beta-blockers. Was noticed to have wide-complex tachycardia at the rate of 220 reported by EMS, status post 100 J shock. As per cardiology note patient is a will require implantable cardioverter defibrillator however he is not a candidate given his multiorgan failure and nutritional status. Cardiology consulted. Recommendation at this time is medical management and optimizing electrolytes. Reconsult cardiology at time of discharge. (13) Edema Qualifiers: Edema type: due to malnutrition Malnutrition edema type: unspecified malnutrition type Qualified Code(s): E43 - Unspecified severe protein-calorie malnutrition Is this a current diagnosis for this admission?: Yes Plan: Likely secondary to protein calorie malnutrition evidenced by hypoalbuminemia; complicated by acute renal failure. Continue furosemide and spironolactone as above. Nephrology consulted for dialysis. We will trial albumin twice daily to help mobilize fluid. - Time Time Spent with patient: 35 or more minutes Medications reviewed and adjusted accordingly: Yes Anticipated Discharge Disposition: Home with Home Health - vs SNF Anticipated Discharge Timeframe: within 72 hours
[2020-06-24] MEDS: DOCUSATE SODIUM 100 MG CAPSULE PO SCH (18:22)
[2020-06-24 19:00] LABS: HEMOGLOBIN 14.9 g/dL (13.5-17.0); MEAN CORPUSCULAR HEMOGLOBIN 28.3 pg (27.0-33.4); MEAN CORPUSCULAR HGB CONC 33.1 g/dL (32.0-36.0); MEAN CORPUSCULAR VOLUME 86 fl (80-97); PLATELET COUNT 236 10^3/uL (150-450); RED BLOOD COUNT 5.27 10^6/uL (4.35-5.55); RED CELL DISTRIBUTION WIDTH 19.2 % (11.5-14.0); WHITE BLOOD COUNT 12.2 10^3/uL (4.0-10.5)
[2020-06-24] MEDS: MIDODRINE HCL 5 MG TABLET PO SCH (22:38)
[2020-06-24] MEDS: WARFARIN SODIUM 2.5 MG TABLET PO SCH (22:39)
[2020-06-24] MEDS: METOPROLOL TARTRATE 50 MG TABLET PO SCH (22:39)
[2020-06-24] MEDS: GUAIFENESIN 600 MG TABLET.SA PO SCH (22:39)
[2020-06-24] MEDS: ENOXAPARIN SODIUM INJ 60 MG/0.6 ML DISP.SYRIN SUBCUT SCH (22:40)
[2020-06-25 02:57] LABS: APPEARANCE,URINE CLEAR; BILIRUBIN,URINE NEGATIVE (NEGATIVE); COLOR,URINE YELLOW; GLUCOSE, URINE NEGATIVE (NEGATIVE); KETONES,URINE NEGATIVE (NEGATIVE); LEUKOCYTE ESTERASE,URINE NEGATIVE (NEGATIVE); NITRITE,URINE NEGATIVE (NEGATIVE); PROTEIN,URINE NEGATIVE (NEGATIVE); URINE SPECIFIC GRAVITY 1.008; UROBILINOGEN,URINE NEGATIVE mg/dL (<2.0)
[2020-06-25 05:49] LABS: HEMOGLOBIN 14.2 g/dL (13.5-17.0); MEAN CORPUSCULAR HEMOGLOBIN 28.4 pg (27.0-33.4); MEAN CORPUSCULAR HGB CONC 32.9 g/dL (32.0-36.0); MEAN CORPUSCULAR VOLUME 86 fl (80-97); PLATELET COUNT 232 10^3/uL (150-450); RED BLOOD COUNT 4.99 10^6/uL (4.35-5.55); RED CELL DISTRIBUTION WIDTH 20.1 % (11.5-14.0); WHITE BLOOD COUNT 11.3 10^3/uL (4.0-10.5)
[2020-06-25] MEDS: MIDODRINE HCL 5 MG TABLET PO SCH ×3 (05:57→22:22)
[2020-06-25] MEDS: PANTOPRAZOLE SODIUM 40 MG TABLET.DR PO SCH ×2 (05:57→18:03)
[2020-06-25 05:58] LABS: INTERNATIONAL RATION (INR) 2.05; PROTHROMBIN TIME 23.2 SEC (11.4-15.4)
[2020-06-25 06:17] LABS: ANION GAP 7 (5-19); BLOOD UREA NITROGEN 20 mg/dL (7-20); CALCIUM 8.6 mg/dL (8.4-10.2); CARBON DIOXIDE 28 mmol/L (22-30); CHLORIDE 95 mmol/L (98-107); GLUCOSE 93 mg/dL (75-110); POTASSIUM 3.6 mmol/L (3.6-5.0)
[2020-06-25] MEDS: IPRATROPIUM/ALBUTEROL 0.5-2.5 MG/3 ML AMPUL NEB SCH ×2 (07:56→20:23)
[2020-06-25] MEDS: METOPROLOL TARTRATE 50 MG TABLET PO SCH ×2 (10:12→22:19)
[2020-06-25] MEDS: FUROSEMIDE INJ/PF 20 MG/2 ML SDV IV SCH ×2 (10:13→22:19)
[2020-06-25] MEDS: BISACODYL 10 MG SUPP.RECT PR SCH (10:13)
[2020-06-25] MEDS: DOCUSATE SODIUM 100 MG CAPSULE PO SCH ×2 (10:13→18:02)
[2020-06-25] MEDS: SPIRONOLACTONE 25 MG TABLET PO SCH (10:13)
[2020-06-25] MEDS: GUAIFENESIN 600 MG TABLET.SA PO SCH ×2 (10:13→22:22)
[2020-06-25] MEDS: POLYETHYLENE GLYCOL 3350 POWDER 17 GM/1 PACKET PO SCH (10:13)
[2020-06-25] MEDS: ENOXAPARIN SODIUM INJ 60 MG/0.6 ML DISP.SYRIN SUBCUT SCH ×2 (10:14→22:22)
[2020-06-25] MEDS: LIDOCAINE 5% (700 MG) TRANSDERMAL ADH..PATCH TP SCH (10:15)
[2020-06-25] MEDS: FLUTICASONE NASAL SPRAY 50 MCG/SPRY 120 SPRAY/16 GM NASL SCH (10:18)
--- NOTE | 2020-06-25 13:44 | RADIOLOGY REPORT (SQ) ---
EXAM DESCRIPTION: CT CHEST WITHOUT IMAGES COMPLETED DATE/TIME: 06/25/2020 1:07 pm REASON FOR STUDY: dyspnea, abn CXR COMPARISON: Chest radiograph 06/24/2020 ; CT abdomen and pelvis 06/17/2020 TECHNIQUE: CT scan performed of the chest without intravenous contrast. Images reviewed with lung, soft tissue and bone windows. Reconstructed coronal and sagittal MPR images reviewed. All images st ored on PACS. All CT scanners at this facility use dose modulation, iterative reconstruction, and/or weight based d osing when appropriate to reduce radiation dose to as low as reasonably achievable (ALARA). [facility]: Dose Right [facility]: CareDose [facility]: Dose Right [facility]: Teradose 4D [facility]: Smart [employer] RADIATION DOSE: CT Rad equipment meets quality standard of care and radiation dose reduction techniq ues were employed. CTDIvol: 8.3 mGy. DLP: 325 mGy-cm. mGy. LIMITATIONS: No technical limitations. FINDINGS: LUNGS AND PLEURA: There are several loculated fluid collections about the periphery of the right lung and within the right major fissure, at least 3 of which contain internal locules of gas. The overall appearance at the right lung base is not significantly changed from the comparison CT ab domen and pelvis dated 06/17/2020. There is been slight interval enlargement of the left pleural effu golden. Small regions of compressive atelectasis are noted at each lung base. The remainder of the robyn ng parenchyma is clear. HILAR AND MEDIASTINAL STRUCTURES: No identified masses or abnormal nodes. No obvious aneurysm. HEART AND VASCULAR STRUCTURES: No aneurysm. No pericardial effusion. Moderate alveolar and coronary artery calcifications are noted. UPPER ABDOMEN: Moderate volume ascites is noted about the liver and spleen. The liver remains slight ly heterogeneous in attenuation with a subtle nodular contour. THYROID AND OTHER SOFT TISSUES: No masses. No adenopathy. BONES: No significant finding. HARDWARE: Dialysis catheter is noted with the tip in the right atrium. OTHER: No other significant findings. IMPRESSION: Loculated right hydropneumothorax which appears similar at the right lung base from the abdominal CT dated 06/17/2020. Slight interval increase in left pleural effusion. Moderate ascites with a similar nonspecific nodular hepatic contour and slight heterogeneous hepatic attenuation. TECHNICAL DOCUMENTATION: JOB ID: [id number] Quality ID # [id number]: Final reports with documentation of one or more dose reduction techniques (e.g., Au tomated exposure control, adjustment of the mA and/or kV according to patient size, use of iterative reconstruction technique) 2010 [employer]- All Rights Reserved Reading location - IP/workstation name: [email or web address]
--- NOTE | 2020-06-25 14:10 | PDOC PROGRESS REPORT ---
Subjective Progress Note for:: 06/25/20 Subjective:: Patient was seen on afternoon rounds. He is found resting in bed, comfortably, on room air. He was sleeping, but woke easily. States he is tired and wants to go back to sleep. Reports continued mild dyspnea, no worse than yesterday. Large bm with decreased abd distention; requesting to advance diet. He has no other questions or concerns at this time. He denies fever, chills, chest pain, palpitations, dyspnea, orthopnea, abdominal pain, emesis, diarrhea. No concerns per nursing. Reason For Visit: V TACHYCARDIA Physical Exam Vital Signs: Temp Pulse Resp BP Pulse Ox 98.3 F 98 12 121/69 96 06/25/20 11:07 06/25/20 11:07 06/25/20 11:07 06/25/20 11:07 06/25/20 11:07 Intake & Output 06/24/20 06/25/20 06/26/20 06:59 06:59 06:59 Intake Total 1681 2790 240 Output Total 800 1490 Balance 881 1300 240 Weight 55 kg 52.6 kg General appearance: PRESENT: no acute distress, well-developed, well-nourished, other - dependent pitting edema (flank, sacrum); slightly decreased Head exam: PRESENT: atraumatic, normocephalic Eye exam: PRESENT: conjunctiva pink, EOMI, PERRLA. ABSENT: scleral icterus Mouth exam: PRESENT: moist, tongue midline Respiratory exam: PRESENT: clear to auscultation [place], decreased breath sounds - throughout, symmetrical, unlabored. ABSENT: rales, rhonchi, wheezes Cardiovascular exam: PRESENT: RRR, +S1, +S2. ABSENT: diastolic murmur, rubs, systolic murmur Vascular exam: PRESENT: normal capillary refill GI/Abdominal exam: PRESENT: ascites, distended, normal bowel sounds, soft. ABSENT: guarding, mass, organolmegaly, rebound, tenderness Rectal exam: PRESENT: deferred Gentrourinary exam: PRESENT: indwelling catheter Extremities exam: PRESENT: full ROM. ABSENT: calf tenderness, clubbing, pedal edema Neurological exam: PRESENT: alert, awake, oriented to person, oriented to place, oriented to time, oriented to situation, CN II-XII grossly intact. ABSENT: motor sensory deficit Psychiatric exam: PRESENT: appropriate affect, normal mood. ABSENT: homicidal ideation, suicidal ideation Skin exam: PRESENT: dry, intact, warm. ABSENT: cyanosis, rash Results Laboratory Results: 06/25/20 05:17 06/25/20 05:17 06/24/20 06/25/20 06/25/20 18:42 02:30 05:17 WBC 12.2 H 11.3 H RBC 5.27 4.99 Hgb 14.9 14.2 Hct 45.0 43.0 MCV 86 86 MCH 28.3 28.4 MCHC 33.1 32.9 RDW 19.2 H 20.1 H Plt Count 236 232 Sodium Potassium Chloride Carbon Dioxide Anion Gap BUN Creatinine Est GFR ( Amer) Glucose Calcium Urine Color YELLOW Urine Appearance CLEAR Urine pH 6.0 Ur Specific [place] 1.008 Urine Protein NEGATIVE Urine Glucose (UA) NEGATIVE Urine Ketones NEGATIVE Urine Blood MODERATE H Urine Nitrite NEGATIVE Ur Leukocyte Esterase NEGATIVE Urine WBC (Auto) 5 Urine RBC (Auto) 06/25/20 05:17 WBC RBC Hgb Hct MCV MCH MCHC RDW Plt Count Sodium 130.2 L Potassium 3.6 Chloride 95 L Carbon Dioxide 28 Anion Gap 7 BUN 20 Creatinine 1.25 Est GFR ( Amer) > 60 Glucose 93 Calcium 8.6 Urine Color Urine Appearance Urine pH Ur Specific [place] Urine Protein Urine Glucose (UA) Urine Ketones Urine Blood Urine Nitrite Ur Leukocyte Esterase Urine WBC (Auto) Urine RBC (Auto) 06/07/20 06/07/20 06/07/20 12:24 12:24 15:08 Creatine Kinase 34 L Troponin I 0.035 0.041 NT-Pro-B Natriuret Pep 06/07/20 06/07/20 06/08/20 16:45 22:01 05:25 Creatine Kinase 35 L 40 L 35 L Troponin I NT-Pro-B Natriuret Pep 06/08/20 05:25 Creatine Kinase Troponin I NT-Pro-B Natriuret Pep 18189 H Impressions: Head CT 06/07/20 13:02 IMPRESSION: Stable CT of the brain with bifrontal encephalomalacia. No acute intracranial event. EVIDENCE OF ACUTE STROKE: NO. Thoracentesis Ultrasound 06/08/20 00:00 IMPRESSION: SUCCESSFUL THORACENTESIS AND CHEST TUBE PLACEMENT USING ULTRASOUND GUIDANCE. Abdomen/Pelvis CT 06/17/20 00:00 IMPRESSION: 1. Small bowel obstruction with transition point in the left mid abdomen. This may be a high-grade partial obstruction. Distal small bowel and colon are decompressed. 2. Marked urinary bladder distention, suggestive of bladder outlet obstruction. Clinical correlation is recommended. 3. Loculated right hydropneumothorax and small left pleural effusion, not significantly changed. Compressive atelectasis at the lung bases. 4. Moderate ascites, slightly decreased from previous examination. 5. Mildly nodular contour of the liver, nonspecific however could indicate und erlying hepatic cirrhosis. Clinical correlation is with recommended. 6. Diffuse subcutaneous edema, suggestive of fluid overload. 7. Colonic diverticulosis without evidence of diverticulitis. KUB X-Ray 06/22/20 00:00 IMPRESSION: Partial small bowel obstruction Chest X-Ray 06/24/20 00:00 IMPRESSION: Persistent diffuse right-sided airspace disease. Mild left-sided interstitial infiltrate. Bilateral pleural effusions with air-fluid levels noted in the right base. Recommend chest CT for further characterization. Chest CT 06/25/20 00:00 IMPRESSION: Loculated right hydropneumothorax which appears similar at the right lung base from the abdominal CT dated 06/17/2020. Slight interval increase in left pleural effusion. Moderate ascites with a similar nonspecific nodular hepatic contour and slight heterogeneous hepatic attenuation. Assessment and Plan - Diagnosis (1) Dyspnea Qualifiers: Dyspnea type: unspecified Qualified Code(s): R06.00 - Dyspnea, unspecified Is this a current diagnosis for this admission?: Yes Plan: Patient reports dyspnea at rest; stable from yesterday. Lung sounds are diminished He is maintaining oxygen saturations on room air. Chest x-ray shows persistent diffuse right-sided airspace disease with mild left-sided interstitial infiltrate, bilateral pleural effusions with air-fluid levels noted to the right base Chest CT shows slight increase in left pleural effusion; loculated effusions on right Continue scheduled and as needed nebulizer treatments. Start Mucinex twice daily. Will discuss with Dr. Barrientos (pleurodesis done by Dr. Barrientos on 06/13) (2) Small bowel obstruction Is this a current diagnosis for this admission?: Yes Plan: Resolved; passing flatus and multiple large bowel movements. Tolerating clear liquids. CT abdomen positive for high-grade partial obstruction on CT with a transition point in the left mid abdomen. KUB shows persistent mildly dilated loops of small bowel to the left of midline. Gas and fecal material in the rectum. KUB shows persistent small bowel obstruction. NG tube discontinued. Advance to soft/low residue liquids. Continue Colace and MiraLax daily. Monitor electrolytes and volume status. (3) DEMETRIUS (acute kidney injury) Is this a current diagnosis for this admission?: Yes Plan: Chronic renal failure. History of end-stage renal disease. Nephrology is consulted; receiving scheduled hemodialysis. Spoke w/ Dr. Rush, patient will require chronic dialysis following discharge. Monitor volume status. Monitor electrolytes and replace as needed. Mccall in place for strict I&Os (4) Ascites Qualifiers: Ascites type: due to alcoholic cirrhosis Qualified Code(s): K70.31 - Alcoholic cirrhosis of liver with ascites Is this a current diagnosis for this admission?: Yes Plan: Continue furosemide and spironolactone. Nephrology consulted for dialysis. (5) Atrial fibrillation Qualifiers: Atrial fibrillation type: longstanding persistent Qualified Code(s): I48.11 - Longstanding persistent atrial fibrillation Is this a current diagnosis for this admission?: Yes Plan: Sinus rhythm. Rate controlled. Was initially on heparin drip and transitioned to Coumadin. INR supratherapeutic; 5.15-> 3.91-> 2.05 Continue to monitor on telemetry. Continue beta-blockers Coumadin resumed; pharmacy to dose. Will bridge w/ Lovenox. Cardiology previous consulted; have signed off. Reconsult as needed. (6) CHF (congestive heart failure) Qualifiers: Heart failure type: combined systolic and diastolic Heart failure chronicity: chronic Qualified Code(s): I50.42 - Chronic combined systolic (congestive) and diastolic (congestive) heart failure Is this a current diagnosis for this admission?: Yes Plan: Acutely exacerbated on admission. proBNP 16,800 on admission. (06/07/2020) 2D echo ejection fraction 25 to 30% with moderate pulmonary hypertension. Mechanical mitral valve.Per previous physician Continue cardiac diet, beta-blockers, Aldactone, furosemide. Cardiology previously consulted; have signed off. Reconsult as necessary and at time of discharge to arrange for LifeVest. (7) COPD (chronic obstructive pulmonary disease) Qualifiers: COPD type: unspecified COPD Qualified Code(s): J44.9 - Chronic obstructive pulmonary disease, unspecified Is this a current diagnosis for this admission?: Yes Plan: Does not appear to be acutely exacerbated. No indications for antibiotic or steroid therapy at this time. We will decrease frequency of scheduled nebs. (8) Hydrothorax Is this a current diagnosis for this admission?: Yes Plan: Resolved. History of recurrent pleural effusion. Patient had a chest tube placed on the right chest. Status post chest tube removal on 06/17/2020. s/p pleurodesis. Patient complaining of right-sided chest pain pleuritic. PO2 WNL on RA Analgesics as needed. Encourage pulmonary toilet with incentive spirometer, flutter valve, position change. Monitor vitals. (9) Hypoglycemia Is this a current diagnosis for this admission?: Yes Plan: Resolved. Hemoglobin A1c 5.1. Patient was been n.p.o. for several days due to small bowel obstruction. (10) Mechanical heart valve present Is this a current diagnosis for this admission?: Yes Plan: History of aortic stenosis status post mechanical valve placement on Saturday patient hospitalization was complicated by PEA and remained in hospital for 3 to 4 [facility] As per recent echo mechanical valve functioning properly. Anticoagulated with Coumadin. Goal of INR 2.5-3.5. (11) Pneumothorax, iatrogenic Is this a current diagnosis for this admission?: Yes Plan: Resolved. Status post pleurodesis by surgery. SPO2 WNL on RA. Repeat chest x-ray shows resolution of pneumothorax. (12) Ventricular tachyarrhythmia Is this a current diagnosis for this admission?: Yes Plan: Sinus rhythm. On beta-blockers. Was noticed to have wide-complex tachycardia at the rate of 220 reported by EMS, status post 100 J shock. As per cardiology note patient is a will require implantable cardioverter defibrillator however he is not a candidate given his multiorgan failure and nutritional status. Cardiology consulted. Recommendation at this time is medical management and optimizing electrolytes. Reconsult cardiology at time of discharge. (13) Edema Qualifiers: Edema type: due to malnutrition Malnutrition edema type: unspecified malnutrition type Qualified Code(s): E43 - Unspecified severe protein-calorie malnutrition Is this a current diagnosis for this admission?: Yes Plan: Likely secondary to protein calorie malnutrition evidenced by hypoalbuminemia; complicated by acute renal failure. Continue furosemide and spironolactone as above. Nephrology consulted for dialysis. We will trial albumin twice daily to help mobilize fluid. - Time Time Spent with patient: 15-24 minutes Medications reviewed and adjusted accordingly: Yes [facility]tic[facility]ated [facility] Anticipated Discharge Timeframe: unclear
[2020-06-25] MEDS: ACETAMINOPHEN 325 MG TABLET PO PRN (15:00)
[2020-06-25] MEDS: PHARMACY COMMUNICATION ORDER MC SCH (22:19)
[2020-06-25] MEDS: WARFARIN SODIUM 2.5 MG TABLET PO SCH (22:21)
[2020-06-26] MEDS: ACETAMINOPHEN 325 MG TABLET PO PRN (03:35)
[2020-06-26 05:07] LABS: INTERNATIONAL RATION (INR) 3.04; PROTHROMBIN TIME 31.3 SEC (11.4-15.4)
[2020-06-26] MEDS: PANTOPRAZOLE SODIUM 40 MG TABLET.DR PO SCH ×2 (05:54→16:42)
[2020-06-26] MEDS: MIDODRINE HCL 5 MG TABLET PO SCH ×3 (05:54→21:19)
[2020-06-26] MEDS: IPRATROPIUM/ALBUTEROL 0.5-2.5 MG/3 ML AMPUL NEB SCH ×2 (08:46→19:46)
[2020-06-26] MEDS: FUROSEMIDE INJ/PF 20 MG/2 ML SDV IV SCH ×2 (10:21→16:42)
[2020-06-26] MEDS: GUAIFENESIN 600 MG TABLET.SA PO SCH (10:21)
[2020-06-26] MEDS: SPIRONOLACTONE 25 MG TABLET PO SCH (10:21)
[2020-06-26] MEDS: DOCUSATE SODIUM 100 MG CAPSULE PO SCH ×2 (10:21→17:17)
[2020-06-26] MEDS: POLYETHYLENE GLYCOL 3350 POWDER 17 GM/1 PACKET PO SCH (10:21)
[2020-06-26] MEDS: METOPROLOL TARTRATE 50 MG TABLET PO SCH ×2 (10:21→21:19)
[2020-06-26] MEDS: BISACODYL 10 MG SUPP.RECT PR SCH (10:22)
[2020-06-26] MEDS: LIDOCAINE 5% (700 MG) TRANSDERMAL ADH..PATCH TP SCH (10:22)
[2020-06-26] MEDS: ENOXAPARIN SODIUM INJ 60 MG/0.6 ML DISP.SYRIN SUBCUT SCH (10:22)
[2020-06-26] MEDS: FLUTICASONE NASAL SPRAY 50 MCG/SPRY 120 SPRAY/16 GM NASL SCH (10:22)
--- NOTE | 2020-06-26 15:32 | PDOC PROGRESS REPORT ---
Subjective Progress Note for:: 06/26/20 Subjective:: Patient was seen on afternoon rounds. He is found resting in bed, comfortably, on room air. Reports continued mild dyspnea, no worse than yesterday, and generalized abdominal discomfort. Discussed his ascites and potential relief through paracentesis; patient declines. Reports that he is continuing to pass gas and had tolerating meals without nausea; though poor appetite today. He has no other questions or concerns at this time. He denies fever, chills, chest pain, palpitations, dyspnea, orthopnea, abdominal pain, emesis, diarrhea. No concerns per nursing. Reason For Visit: V TACHYCARDIA Physical Exam Vital Signs: Temp Pulse Resp BP Pulse Ox 97.4 F 88 15 105/83 97 06/26/20 12:05 06/26/20 12:05 06/26/20 12:05 06/26/20 12:05 06/26/20 12:05 Intake & Output 06/25/20 06/26/20 06/27/20 06:59 06:59 06:59 Intake Total 2790 630 270 Output Total 1490 350 100 Balance 1300 280 170 Weight 52.6 kg 52.4 kg General appearance: PRESENT: no acute distress, thin, well-developed, other - chronically Ill-appearing, edema (flank/sacrum) improved, ascites is worsened Head exam: PRESENT: atraumatic, normocephalic Eye exam: PRESENT: conjunctiva pink, EOMI, PERRLA. ABSENT: scleral icterus Mouth exam: PRESENT: moist, tongue midline Respiratory exam: PRESENT: clear to auscultation [place], decreased breath sounds - throughout, symmetrical, unlabored, other - room air. ABSENT: rales, rhonchi, tachypnea, wheezes Cardiovascular exam: PRESENT: RRR, +S1, +S2. ABSENT: diastolic murmur, rubs, systolic murmur Pulses: PRESENT: normal dorsalis pedis pul Vascular exam: PRESENT: normal capillary refill GI/Abdominal exam: PRESENT: ascites, distended, normal bowel sounds, soft. ABSENT: guarding, mass, organolmegaly, rebound, tenderness Rectal exam: PRESENT: deferred Extremities exam: PRESENT: full ROM. ABSENT: calf tenderness, clubbing, pedal edema Neurological exam: PRESENT: alert, awake, oriented to person, oriented to place, oriented to time, oriented to situation, CN II-XII grossly intact. ABSENT: motor sensory deficit Psychiatric exam: PRESENT: flat affect, normal mood. ABSENT: homicidal ideation, suicidal ideation Skin exam: PRESENT: dry, warm. ABSENT: cyanosis, rash Results Laboratory Results: 06/25/20 05:17 06/25/20 05:17 06/07/20 06/07/20 06/07/20 12:24 12:24 15:08 Creatine Kinase 34 L Troponin I 0.035 0.041 NT-Pro-B Natriuret Pep 06/07/20 06/07/20 06/08/20 16:45 22:01 05:25 Creatine Kinase 35 L 40 L 35 L Troponin I NT-Pro-B Natriuret Pep 06/08/20 05:25 Creatine Kinase Troponin I NT-Pro-B Natriuret Pep 48615 H Impressions: Head CT 06/07/20 13:02 IMPRESSION: Stable CT of the brain with bifrontal encephalomalacia. No acute intracranial event. EVIDENCE OF ACUTE STROKE: NO. Thoracentesis Ultrasound 06/08/20 00:00 IMPRESSION: SUCCESSFUL THORACENTESIS AND CHEST TUBE PLACEMENT USING ULTRASOUND GUIDANCE. Abdomen/Pelvis CT 06/17/20 00:00 IMPRESSION: 1. Small bowel obstruction with transition point in the left mid abdomen. This may be a high-grade partial obstruction. Distal small bowel and colon are decompressed. 2. Marked urinary bladder distention, suggestive of bladder outlet obstruction. Clinical correlation is recommended. 3. Loculated right hydropneumothorax and small left pleural effusion, not significantly changed. Compressive atelectasis at the lung bases. 4. Moderate ascites, slightly decreased from previous examination. 5. Mildly nodular contour of the liver, nonspecific however could indicate underlying hepatic cirrhosis. Clinical correlation is with recommended. 6. Diffuse subcutaneous edema, suggestive of fluid overload. 7. Colonic diverticulosis without evidence of diverticulitis. KUB X-Ray 06/22/20 00:00 IMPRESSION: Partial small bowel obstruction Chest X-Ray 06/24/20 00:00 IMPRESSION: Persistent diffuse right-sided airspace disease. Mild left-sided interstitial infiltrate. Bilateral pleural effusions with air-fluid levels noted in the right base. Recommend chest CT for further characterization. Chest CT 06/25/20 00:00 IMPRESSION: Loculated right hydropneumothorax which appears similar at the right lung base from the abdominal CT dated 06/17/2020. Slight interval increase in left pleural effusion. Moderate ascites with a similar nonspecific nodular hepatic contour and slight heterogeneous hepatic attenuation. Assessment and Plan - Diagnosis (1) Dyspnea Qualifiers: Dyspnea type: unspecified Qualified Code(s): R06.00 - Dyspnea, unspecified Is this a current diagnosis for this admission?: Yes Plan: Patient reports dyspnea at rest; stable. Maintaining oxygen saturations on room air without tachypnea or increased work of breathing. Lung sounds are diminished Chest x-ray shows persistent diffuse right-sided airspace disease with mild left-sided interstitial infiltrate, bilateral pleural effusions with air-fluid levels noted to the right base Chest CT shows slight increase in left pleural effusion; loculated effusions on right Continue scheduled and as needed nebulizer treatments. Discussed with Dr. Phelps; slight increase in left pleural effusion noted. Air- fluid levels noted to the right are expected related to chest tubes and pleurodesis. May consider thoracentesis and/or paracentesis for relief of dyspnea. Low threshold for thoracentesis should patient develop symptoms of infectious process to evaluate for empyema. (2) Small bowel obstruction Is this a current diagnosis for this admission?: Yes Plan: Resolved; passing flatus and multiple large bowel movements. Tolerating clear liquids. CT abdomen positive for high-grade partial obstruction on CT with a transition point in the left mid abdomen. KUB shows persistent mildly dilated loops of small bowel to the left of midline. Gas and fecal material in the rectum. KUB shows persistent small bowel obstruction. NG tube discontinued. Advance to soft/low residue liquids. Continue Colace and MiraLax daily. Monitor electrolytes and volume status. (3) DEMETRIUS (acute kidney injury) Is this a current diagnosis for this admission?: Yes Plan: Chronic renal failure. History of end-stage renal disease. Nephrology is consulted; receiving scheduled hemodialysis. Spoke w/ Dr. Rush, patient will require chronic dialysis following discharge. Monitor volume status. Monitor electrolytes and replace as needed. Mccall in place for strict I&Os (4) Ascites Qualifiers: Ascites type: due to alcoholic cirrhosis Qualified Code(s): K70.31 - Alcoholic cirrhosis of liver with ascites Is this a current diagnosis for this admission?: Yes Plan: Continue furosemide and spironolactone. Nephrology consulted for dialysis. Patient declines palliative paracentesis. (5) Atrial fibrillation Qualifiers: Atrial fibrillation type: longstanding persistent Qualified Code(s): I48.11 - Longstanding persistent atrial fibrillation Is this a current diagnosis for this admission?: Yes Plan: Sinus rhythm. Rate controlled. Was initially on heparin drip and transitioned to Coumadin. INR supratherapeutic; 5.15-> 3.91-> 2.05 Continue to monitor on telemetry. Continue beta-blockers Coumadin resumed; pharmacy to dose. Will bridge w/ Lovenox. Cardiology previous consulted; have signed off. Reconsult as needed. (6) CHF (congestive heart failure) Qualifiers: Heart failure type: combined systolic and diastolic Heart failure chronicity: chronic Qualified Code(s): I50.42 - Chronic combined systolic (con gestive) and diastolic (congestive) heart failure Is this a current diagnosis for this admission?: Yes Plan: Acutely exacerbated on admission. proBNP 16,800 on admission. (06/07/2020) 2D echo ejection fraction 25 to 30% with moderate pulmonary hypertension. Mechanical mitral valve.Per previous physician Continue cardiac diet, beta-blockers, Aldactone, furosemide. Cardiology previously consulted; have signed off. Reconsult as necessary and at time of discharge to arrange for LifeVest. (7) COPD (chronic obstructive pulmonary disease) Qualifiers: COPD type: unspecified COPD Qualified Code(s): J44.9 - Chronic obstructive pulmonary disease, unspecified Is this a current diagnosis for this admission?: Yes Plan: Does not appear to be acutely exacerbated. No indications for antibiotic or steroid therapy at this time. We will decrease frequency of scheduled nebs. (8) Hydrothorax Is this a current diagnosis for this admission?: Yes Plan: Resolved. History of recurrent pleural effusion. Patient had a chest tube placed on the right chest. Status post chest tube removal on 06/17/2020. s/p pleurodesis. Repeat CT as above. Analgesics as needed. Encourage pulmonary toilet with incentive spirometer, flutter valve, position change. Monitor vitals. (9) Hypoglycemia Is this a current diagnosis for this admission?: Yes Plan: Resolved. Hemoglobin A1c 5.1. Patient was been n.p.o. for several days due to small bowel obstruction. (10) Mechanical heart valve present Is this a current diagnosis for this admission?: Yes Plan: History of aortic stenosis status post mechanical valve placement on Saturday patient hospitalization was complicated by PEA and remained in hospital for 3 to 4 months and [facility]. As per recent echo mechanical valve functioning properly. Anticoagulated with Coumadin. Goal of INR 2.5-3.5. (11) Pneumothorax, iatrogenic Is this a current diagnosis for this admission?: Yes Plan: Resolved. Status post pleurodesis by surgery. SPO2 WNL on RA. Repeat chest x-ray shows resolution of pneumothorax. (12) Ventricular tachyarrhythmia Is this a current diagnosis for this admission?: Yes Plan: Sinus rhythm. On beta-blockers. Was noticed to have wide-complex tachycardia at the rate of 220 reported by EMS, status post 100 J shock. As per cardiology note patient is a will require implantable cardioverter defibrillator however he is not a candidate given his multiorgan failure and nutritional status. Cardiology consulted. Recommendation at this time is medical management and optimizing electrolytes. Reconsult cardiology at time of discharge. (13) Edema Qualifiers: Edema type: due to malnutrition Malnutrition edema type: unspecified malnutrition type Qualified Code(s): E43 - Unspecified severe protein-calorie malnutrition Is this a current diagnosis for this admission?: Yes Plan: Improved. Likely secondary to protein calorie malnutrition evidenced by hypoalbuminemia; complicated by acute renal failure. Continue furosemide and spironolactone as above. Additional albumin x2 prior to furosemide. Nephrology consulted for dialysis. - Time Time Spent with patient: 25-34 minutes Medications reviewed and adjusted accordingly: Yes Anticipated Discharge Disposition: [facility] Anticipated Discharge Timeframe: within 48 hours
[2020-06-26] MEDS ORDERED: ALBUMIN HUMAN 25.0 GM/100 ML RTUINJ IV ONE (20:53)
[2020-06-26] MEDS: ALBUMIN HUMAN 12.5 GM/50 ML RTUINJ IV SCH ×2 (21:18→22:36)
[2020-06-26] MEDS ORDERED: WARFARIN SODIUM 2 MG TABLET PO SCH (22:00)
[2020-06-26] MEDS: PHARMACY COMMUNICATION ORDER MC SCH (22:23)
[2020-06-27] MEDS ORDERED: HEPARIN SOD (PORCINE) 1,000 UNIT/ML 10 ML VIAL IV PRN (05:00)
[2020-06-27] MEDS ORDERED: NORMAL SALINE 1000 ML 1,000 ML IV PRN (05:00)
[2020-06-27 05:53] LABS: ABSOLUTE BASOPHILS # (AUTO) 0.1 10^3/uL (0.0-0.2); ABSOLUTE LYMPHOCYTES (AUTO) 0.7 10^3/uL (0.5-4.7); ABSOLUTE MONOCYTES (AUTO) 0.8 10^3/uL (0.1-1.4); ABSOLUTE NEUT (AUTO) 11.6 10^3/uL (1.7-8.2); BASOPHILS % (AUTO) 0.7 % (0-2); EOSINOPHILS % (AUTO) 0.3 % (0-6); HEMATOCRIT 39.2 % (37.9-51.0); LYMPHOCYTES % (AUTO) 5.3 % (13-45); MEAN CORPUSCULAR HEMOGLOBIN 28.4 pg (27.0-33.4); MEAN CORPUSCULAR HGB CONC 33.2 g/dL (32.0-36.0); MEAN CORPUSCULAR VOLUME 85 fl (80-97); MONOCYTES % (AUTO) 5.7 % (3-13); PLATELET COUNT 309 10^3/uL (150-450); RED BLOOD COUNT 4.59 10^6/uL (4.35-5.55); RED CELL DISTRIBUTION WIDTH 19.3 % (11.5-14.0); TOTAL CELLS COUNTED % (AUTO) 100 %; WHITE BLOOD COUNT 13.2 10^3/uL (4.0-10.5)
[2020-06-27 06:01] LABS: INTERNATIONAL RATION (INR) 4.22; PROTHROMBIN TIME 40.2 SEC (11.4-15.4)
[2020-06-27 06:16] LABS: ANION GAP 8 (5-19); BLOOD UREA NITROGEN 26 mg/dL (7-20); CALCIUM 8.8 mg/dL (8.4-10.2); CARBON DIOXIDE 26 mmol/L (22-30); CHLORIDE 93 mmol/L (98-107); GLUCOSE 92 mg/dL (75-110); POTASSIUM 4.2 mmol/L (3.6-5.0)
[2020-06-27] MEDS: PANTOPRAZOLE SODIUM 40 MG TABLET.DR PO SCH ×2 (06:49→17:19)
[2020-06-27] MEDS: MIDODRINE HCL 5 MG TABLET PO SCH ×3 (06:49→21:40)
[2020-06-27] MEDS: FUROSEMIDE INJ/PF 20 MG/2 ML SDV IV SCH ×2 (06:49→17:19)
[2020-06-27] MEDS: IPRATROPIUM/ALBUTEROL 0.5-2.5 MG/3 ML AMPUL NEB SCH ×2 (08:45→19:42)
--- NOTE | 2020-06-27 11:32 | PDOC PROGRESS REPORT ---
Subjective Progress Note for:: 06/27/20 Subjective:: I am seeing the patient during dialysis this morning. He is lying down in bed comfortably. He tells me that he is eating but appetite is poor. He is tolerating dialysis without much issues this morning. He denies any nausea, vomiting, abdominal pain or shortness of breath. He had a CT scan of the chest on Saturday, June 25 showing loculated right hydropneumothorax similar to that of June 17. There is a slight increase in the left pleural effusion and modera te ascites. Reason For Visit: ESRD Physical Exam Vital Signs: Temp Pulse Resp BP Pulse Ox 97.3 F 88 20 109/73 100 06/27/20 03:56 06/27/20 07:00 06/27/20 03:56 06/27/20 03:56 06/27/20 03:56 Intake & Output 06/26/20 06/27/20 06/28/20 06:59 06:59 06:59 Intake Total 630 1000 Output Total 350 650 Balance 280 350 Weight 52.4 kg 52.1 kg Vitals during dialysis: Blood pressure 103/79, heart rate of 89, blood flow rate of 250 mL/min and dialysate flow rate of 600 mL/min. Exam: General appearance: PRESENT: no acute distress, cooperative, well-developed, well-nourished Head exam: PRESENT: atraumatic, normocephalic Eye exam: PRESENT: conjunctiva slightly pale, PERRLA. ABSENT: scleral icterus Neck exam: ABSENT: JVD Respiratory exam: PRESENT: Diminished breath sounds on the basis . ABSENT: crackles, rales, rhonchi, unlabored, wheezes Cardiovascular exam: PRESENT: Irregularly irregular rate rhythm -+S1, +S2. ABSENT: diastolic murmur, systolic murmur GI/Abdominal exam: PRESENT: normal bowel sounds, soft. ABSENT: guarding, mass, tenderness Extremities exam: Grade 1 bilateral lower extremity pitting edema Neurological exam: PRESENT: alert, awake, oriented to person, place and time. Skin exam: PRESENT: dry, warm, Cardiovascular exam: PRESENT: +S1, +S2 GI/Abdominal exam: PRESENT: ascites, distended, normal bowel sounds, soft. ABSENT: firm, guarding, organomegaly Results Laboratory Results: 06/27/20 05:15 06/27/20 05:15 06/27/20 06/27/20 05:15 05:15 WBC 13.2 H RBC 4.59 Hgb 13.0 L Hct 39.2 MCV 85 MCH 28.4 MCHC 33.2 RDW 19.3 H Plt Count 309 Seg Neutrophils % 88.0 H Sodium 126.6 L Potassium 4.2 Chloride 93 L Carbon Dioxide 26 Anion Gap 8 BUN 26 H Creatinine 1.58 H Est GFR ( Amer) 55 L Glucose 92 Calcium 8.8 06/07/20 06/07/20 06/07/20 12:24 12:24 15:08 Creatine Kinase 34 L Troponin I 0.035 0.041 NT-Pro-B Natriuret Pep 06/07/20 06/07/20 06/08/20 16:45 22:01 05:25 Creatine Kinase 35 L 40 L 35 L Troponin I NT-Pro-B Natriuret Pep 06/08/20 05:25 Creatine Kinase Troponin I NT-Pro-B Natriuret Pep 63765 H Impressions: Head CT 06/07/20 13:02 IMPRESSION: Stable CT of the brain with bifrontal encephalomalacia. No acute i ntracranial event. EVIDENCE OF ACUTE STROKE: NO. Thoracentesis Ultrasound 06/08/20 00:00 IMPRESSION: SUCCESSFUL THORACENTESIS AND CHEST TUBE PLACEMENT USING ULTRASOUND GUIDANCE. Abdomen/Pelvis CT 06/17/20 00:00 IMPRESSION: 1. Small bowel obstruction with transition point in the left mid abdomen. This may be a high-grade partial obstruction. Distal small bowel and colon are decompressed. 2. Marked urinary bladder distention, suggestive of bladder outlet obstruction. Clinical correlation is recommended. 3. Loculated right hydropneumothorax and small left pleural effusion, not significantly changed. Compressive atelectasis at the lung bases. 4. Moderate ascites, slightly decreased from previous examination. 5. Mildly nodular contour of the liver, nonspecific however could indicate underlying hepatic cirrhosis. Clinical correlation is with recommended. 6. Diffuse subcutaneous edema, suggestive of fluid overload. 7. Colonic diverticulosis without evidence of diverticulitis. KUB X-Ray 06/22/20 00:00 IMPRESSION: Partial small bowel obstruction Chest X-Ray 06/24/20 00:00 IMPRESSION: Persistent diffuse right-sided airspace disease. Mild left-sided interstitial infiltrate. Bilateral pleural effusions with air-fluid levels noted in the right base. Recommend chest CT for further characterization. Chest CT 06/25/20 00:00 IMPRESSION: Loculated right hydropneumothorax which appears similar at the right lung base from the abdominal CT dated 06/17/2020. Slight interval increase in left pleural effusion. Moderate ascites with a similar nonspecific nodular hepatic contour and slight heterogeneous hepatic attenuation. Assessment & Plan - Diagnosis (1) ESRD (end stage renal disease) on dialysis Is this a current diagnosis for this admission?: Yes Plan: We will do dialysis today for 2.5 hours, using the patient's PermCath, with 3 potassium bath, blood flow rate of 250 mL per minute, dialysate flow rate of 600 mL per minute, ultrafiltration 0.5-1L as tolerated , no heparin and no Procrit. Patient is being closely monitored throughout dialysis treatment especially with hypotension. I recommend changing the furosemide to oral once the patient can take his meds orally. Patient's urine output remains to be very minimal at around 400 mL despite having Mccall catheter due to finding of bladder outlet obstruction on CT scan. His creatinine has decreased but I think moving forward, with all his other comorbidities and episodes of fluid overload he is better off to stay on dialysis chronically to help manage volume. We will have case management to arrange outpatient chronic dialysis treatment in anticipation of the patient being discharged. (2) Bladder outlet obstruction Is this a current diagnosis for this admission?: Yes Plan: Mccall catheter in place currently. Urine output remains minimal around 300 to 600 mL on furosemide. (3) Small bowel obstruction Is this a current diagnosis for this admission?: Yes Plan: NG tube has been removed. Currently tolerating oral intake. Hospitalist managing. (4) Pleural effusion Is this a current diagnosis for this admission?: Yes Plan: Status post thoracentesis, 06/08 with initial chest tube placement. Chest tube placement revised with pleurodesis on Wednesday 06/13. Chest tube removed. 06/17. Chest CT on June 25 showed persistent loculated right hydropneumothorax. Discussed with Cari Young and she is considering repeat thoracentesis. (5) CHF (congestive heart failure) Qualifiers: Heart failure type: combined systolic and diastolic Heart failure chronicity: chronic Qualified Code(s): I50.42 - Chronic combined systolic (congestive) and diastolic (congestive) heart failure Is this a current diagnosis for this admission?: Yes Plan: EF of 25 to 30% with moderately reduced right ventricular systolic function. Patient has cardiomyopathy. Cardiology on board. Recommendation includes pl acement of implantable defibrillator but uncertain if the patient can tolerate the procedure. (6) Ventricular tachyarrhythmia Is this a current diagnosis for this admission?: Yes Plan: Per cardiology. (7) Hypotension Qualifiers: Hypotension type: idiopathic hypotension Qualified Code(s): I95.0 - Idiopathic hypotension Is this a current diagnosis for this admission?: Yes Plan: Likely secondary to poor cardiac function and cardiomyopathy. Currently on midodrine. Adrenal insufficiency has been previously ruled out during previous admission. (8) Hyponatremia Is this a current diagnosis for this admission?: Yes Plan: Chronic and stable. Secondary to hypervolemic state with CHF and ESRD. (9) Atrial fibrillation Qualifiers: Atrial fibrillation type: longstanding persistent Qualified Code(s): I48.11 - Longstanding persistent atrial fibrillation Is this a current diagnosis for this admission?: Yes Plan: On anticoagulation. Rate controlled (10) Ascites Qualifiers: Ascites type: due to alcoholic cirrhosis Qualified Code(s): K70.31 - Alcoholic cirrhosis of liver with ascites Is this a current diagnosis for this admission?: Yes Plan: Hospitalist discuss paracentesis on the weekend but the patient refused. (11) Leukocytosis Qualifiers: Leukocytosis type: unspecified Qualified Code(s): D72.829 - Elevated white blood cell count, unspecified Is this a current diagnosis for this admission?: Yes Plan: Mild elevation of white count of unknown etiology at. (12) Pneumothorax, iatrogenic Is this a current diagnosis for this admission?: Yes (13) H/O mitral valve replacement with mechanical valve Is this a current diagnosis for this admission?: Yes Plan: Currently on warfarin. - Time Time with patient: 15-25 minutes
[2020-06-27] MEDS: BISACODYL 10 MG SUPP.RECT PR SCH (11:46)
[2020-06-27] MEDS: LIDOCAINE 5% (700 MG) TRANSDERMAL ADH..PATCH TP SCH (11:46)
[2020-06-27] MEDS: FLUTICASONE NASAL SPRAY 50 MCG/SPRY 120 SPRAY/16 GM NASL SCH (11:46)
[2020-06-27] MEDS: METOPROLOL TARTRATE 50 MG TABLET PO SCH ×2 (11:48→21:41)
[2020-06-27] MEDS: POLYETHYLENE GLYCOL 3350 POWDER 17 GM/1 PACKET PO SCH (11:49)
[2020-06-27] MEDS: SPIRONOLACTONE 25 MG TABLET PO SCH (11:49)
[2020-06-27] MEDS: DOCUSATE SODIUM 100 MG CAPSULE PO SCH ×2 (11:49→17:14)
[2020-06-27] MEDS: ALBUMIN HUMAN 12.5 GM/50 ML RTUINJ IV SCH ×2 (12:08→12:12)
[2020-06-27] MEDS ORDERED: HEPARIN SOD (PORCINE) 1,000 UNIT/ML 10 ML VIAL IV ONE (12:14)
[2020-06-27 13:51] LABS: INTERNATIONAL RATION (INR) 4.76; PROTHROMBIN TIME 44.1 SEC (11.4-15.4)
[2020-06-27] MEDS: HEPARIN SODIUM,PORCINE/D5W 25,000 UNIT/250 ML RTUINJ IV PRN (14:29)
--- NOTE | 2020-06-27 16:20 | RADIOLOGY REPORT (SQ) ---
EXAM DESCRIPTION: CHEST SINGLE VIEW IMAGES COMPLETED DATE/TIME: 06/27/2020 4:09 pm REASON FOR STUDY: left rib pain and dyspnea COMPARISON: 06/24/2020 NUMBER OF VIEWS: One view. TECHNIQUE: Single frontal radiographic image of the chest acquired. LIMITATIONS: None. FINDINGS: LUNGS AND PLEURA: Stable appearance. Dialysis catheter remains in place. MEDIASTINUM AND HILAR STRUCTURES: Stable heart size and mediastinal structures. HEART AND VASCULAR STRUCTURES: Stable appearance. BONES: No acute findings. HARDWARE: Unchanged. OTHER: No other significant finding. IMPRESSION: STABLE APPEARANCE OF THE CHEST. TECHNICAL DOCUMENTATION: JOB ID: [id number] 2010 [employer]- All Rights Reserved Reading location - IP/workstation name: [email or web address]
[2020-06-27] MEDS ORDERED: LIDOCAINE 5% (700 MG) TRANSDERMAL ADH..PATCH TP ONE (16:42)
[2020-06-27] MEDS ORDERED: MORPHINE SULFATE 10 MG/ML INJ IV ONE (16:42)
--- NOTE | 2020-06-27 18:17 | PDOC PROGRESS REPORT ---
Subjective Progress Note for:: 06/27/20 Subjective:: Patient was seen on morning rounds. He is found resting in bed, comfortably, on room air. Reports continued mild dyspnea, stable. Discussed his pleural effusions and ascites and potential relief through drainage; patient agreeable today. Reports that he is continuing to pass gas and had tolerating meals without nausea; though poor appetite today. He has no other questions or concerns at this time. He denies fever, chills, chest pain, palpitations, dyspnea, orthopnea, abdominal pain, emesis, diarrhea. This afternoon, patient reports left side chest wall pain. Reason For Visit: V TACHYCARDIA Physical Exam Vital Signs: Temp Pulse Resp BP Pulse Ox 97.4 F 83 16 101/72 97 06/27/20 15:56 06/27/20 15:56 06/27/20 15:56 06/27/20 15:56 06/27/20 15:56 Intake & Output 06/26/20 06/27/20 06/28/20 06:59 06:59 06:59 Intake Total 630 1000 243 Output Total 762 856 8255 Balance 280 350 -1157 Weight 52.4 kg 52.1 kg 52.1 kg General appearance: PRESENT: no acute distress, cooperative, thin, well- developed, other - chronically ill appearing, anasarca is improved Head exam: PRESENT: atraumatic, normocephalic Eye exam: PRESENT: conjunctiva pink, EOMI, PERRLA. ABSENT: scleral icterus Ear exam: PRESENT: normal external ear exam Mouth exam: PRESENT: moist, tongue midline Neck exam: ABSENT: carotid bruit, JVD, lymphadenopathy, thyromegaly Respiratory exam: PRESENT: clear to auscultation [place], decreased breath sounds - Throughout, symmetrical, unlabored. ABSENT: rales, rhonchi, wheezes Cardiovascular exam: PRESENT: RRR, +S1, +S2. ABSENT: diastolic murmur, rubs, systolic murmur Pulses: PRESENT: normal dorsalis pedis pul Vascular exam: PRESENT: normal capillary refill GI/Abdominal exam: PRESENT: ascites, normal bowel sounds, soft. ABSENT: distended, guarding, mass, organolmegaly, rebound, tenderness Rectal exam: PRESENT: deferred Gentrourinary exam: PRESENT: indwelling catheter Extremities exam: PRESENT: full ROM. ABSENT: calf tenderness, clubbing, pedal edema Neurological exam: PRESENT: alert, awake, oriented to person, oriented to place, oriented to time, oriented to situation, CN II-XII grossly intact. ABSENT: motor sensory deficit Psychiatric exam: PRESENT: appropriate affect, normal mood. ABSENT: homicidal ideation, suicidal ideation Skin exam: PRESENT: dry, warm. ABSENT: cyanosis, rash Results Laboratory Results: 06/27/20 05:15 06/27/20 05:15 06/27/20 06/27/20 05:15 05:15 WBC 13.2 H RBC 4.59 Hgb 13.0 L Hct 39.2 MCV 85 MCH 28.4 MCHC 33.2 RDW 19.3 H Plt Count 309 Seg Neutrophils % 88.0 H Sodium 126.6 L Potassium 4.2 Chloride 93 L Carbon Dioxide 26 Anion Gap 8 BUN 26 H Creatinine 1.58 H Est GFR ( Amer) 55 L Glucose 92 Calcium 8.8 06/07/20 06/07/20 06/07/20 12:24 12:24 15:08 Creatine Kinase 34 L Troponin I 0.035 0.041 NT-Pro-B Natriuret Pep 06/07/20 06/07/20 06/08/20 16:45 22:01 05:25 Creatine Kinase 35 L 40 L 35 L Troponin I NT-Pro-B Natriuret Pep 06/08/20 05:25 Creatine Kinase Troponin I NT-Pro-B Natriuret Pep 73345 H Impressions: Head CT 06/07/20 13:02 IMPRESSION: Stable CT of the brain with bifrontal encephalomalacia. No acute intracranial event. EVIDENCE OF ACUTE STROKE: NO. Thoracentesis Ultrasound 06/08/20 00:00 IMPRESSION: SUCCESSFUL THORACENTESIS AND CHEST TUBE PLACEMENT USING ULTRASOUND GUIDANCE. Abdomen/Pelvis CT 06/17/20 00:00 IMPRESSION: 1. Small bowel obstruction with transition point in the left mid abdomen. This may be a high-grade partial obstruction. Distal small bowel and colon are decompressed. 2. Marked urinary bladder distention, suggestive of bladder outlet obstruction. Clinical correlation is recommended. 3. Loculated right hydropneumothorax and small left pleural effusion, not significantly changed. Compressive atelectasis at the lung bases. 4. Moderate ascites, slightly decreased from previous examination. 5. Mildly nodular contour of the liver, nonspecific however could indicate underlying hepatic cirrhosis. Clinical correlation is with recommended. 6. Diffuse subcutaneous edema, suggestive of fluid overload. 7. Colonic diverticulosis without evidence of diverticulitis. KUB X-Ray 06/22/20 00:00 IMPRESSION: Partial small bowel obstruction Chest CT 06/25/20 00:00 IMPRESSION: Loculated right hydropneumothorax which appears similar at the r ight lung base from the abdominal CT dated 06/17/2020. Slight interval increase in left pleural effusion. Moderate ascites with a similar nonspecific nodular hepatic contour and slight heterogeneous hepatic attenuation. Chest X-Ray 06/27/20 00:00 IMPRESSION: STABLE APPEARANCE OF THE CHEST. Assessment and Plan - Diagnosis (1) Dyspnea Qualifiers: Dyspnea type: unspecified Qualified Code(s): R06.00 - Dyspnea, unspecified Is this a current diagnosis for this admission?: Yes Plan: Patient reports dyspnea at rest. Maintaining oxygen saturations on room air without tachypnea or increased work of breathing. Lung sounds are diminished Chest x-ray shows persistent diffuse right-sided airspace disease with mild left-sided interstitial infiltrate, bilateral pleural effusions with air-fluid levels noted to the right base Chest CT shows slight increase in left pleural effusion; loculated effusions on right Repeat CXR today is stable Continue scheduled and as needed nebulizer treatments. Discussed with Dr. Phelps; slight increase in left pleural effusion noted. Air- fluid levels noted to the right are expected related to chest tubes and pleurodesis. Patient now agreable thoracentesis and/or paracentesis for relief of dyspnea. Transition to Heparin gtt; need to wash out Coumadin. Discussed with RA Yuan; anticipate readiness for procedure in 2-3 days. (2) Small bowel obstruction Is this a current diagnosis for this admission?: Yes Plan: Resolved; passing flatus and multiple large bowel movements. Tolerating clear liquids. CT abdomen positive for high-grade partial obstruction on CT with a transition point in the left mid abdomen. KUB shows persistent mildly dilated loops of small bowel to the left of midline. Gas and fecal material in the rectum. KUB shows persistent small bowel obstruction. NG tube discontinued. Advance to soft/low residue liquids. Continue Colace and MiraLax daily. Monitor electrolytes and volume status. (3) DEMETRIUS (acute kidney injury) Is this a current diagnosis for this admission?: Yes Plan: Chronic renal failure. History of end-stage renal disease. Nephrology is consulted; receiving scheduled hemodialysis. Spoke w/ Dr. Rush, patient will require chronic dialysis following discharge. Monitor volume status. Monitor electrolytes and replace as needed. Mccall in place for strict I&Os (4) Ascites Qualifiers: Ascites type: due to alcoholic cirrhosis Qualified Code(s): K70.31 - Alcoholic cirrhosis of liver with ascites Is this a current diagnosis for this admission?: Yes Plan: Continue furosemide and spironolactone. Nephrology consulted for dialysis. Agrees to palliative paracentesis. Holding Coumadin; now on Heparin gtt. (5) Atrial fibrillation Qualifiers: Atrial fibrillation type: longstanding persistent Qualified Code(s): I48.11 - Longstanding persistent atrial fibrillation Is this a current diagnosis for this admission?: Yes Plan: Sinus rhythm. Rate controlled. Was initially on heparin drip and transitioned to Coumadin. INR supratherapeutic; 5.15-> 3.91-> 2.05 Continue to monitor on telemetry. Continue beta-blockers Coumadin resumed; pharmacy to dose. Will bridge w/ Lovenox. Cardiology previous consulted; have signed off. Reconsult as needed. (6) CHF (congestive heart failure) Qualifiers: Heart failure type: combined systolic and diastolic Heart failure chron icity: chronic Qualified Code(s): I50.42 - Chronic combined systolic (congestive) and diastolic (congestive) heart failure Is this a current diagnosis for this admission?: Yes Plan: Acutely exacerbated on admission. proBNP 16,800 on admission. (06/07/2020) 2D echo ejection fraction 25 to 30% with moderate pulmonary hypertension. Mechanical mitral valve.Per previous physician Continue cardiac diet, beta-blockers, Aldactone, furosemide. Cardiology previously consulted; have signed off. Reconsult as necessary and at time of discharge to arrange for LifeVest. (7) COPD (chronic obstructive pulmonary disease) Qualifiers: COPD type: unspecified COPD Qualified Code(s): J44.9 - Chronic obstructive pulmonary disease, unspecified Is this a current diagnosis for this admission?: Yes Plan: Does not appear to be acutely exacerbated. No indications for antibiotic or steroid therapy at this time. We will decrease frequency of scheduled nebs. (8) Hydrothorax Is this a current diagnosis for this admission?: Yes Plan: Resolved. History of recurrent pleural effusion. Patient had a chest tube placed on the right chest. Status post chest tube removal on 06/17/2020. s/p pleurodesis. Repeat CT as above. Analgesics as needed. Encourage pulmonary toilet with incentive spirometer, flutter valve, position change. Monitor vitals. (9) Hypoglycemia Is this a current diagnosis for this admission?: Yes Plan: Resolved. Hemoglobin A1c 5.1. Patient was been n.p.o. for several days due to small bowel obstruction. (10) Mechanical heart valve present Is this a current diagnosis for this admission?: Yes Plan: History of aortic stenosis status post mechanical valve placement on Saturday patient hospitalization was complicated by PEA and remained in hospital for 3 to 4 months and [facility]. As per recent echo mechanical valve functioning properly. Anticoagulated with Coumadin. Goal of INR 2.5-3.5. (11) Pneumothorax, iatrogenic Is this a current diagnosis for this admission?: Yes Plan: Resolved. Status post pleurodesis by surgery. SPO2 WNL on RA. Repeat chest x-ray shows resolution of pneumothorax. (12) Ventricular tachyarrhythmia Is this a current diagnosis for this admission?: Yes Plan: Sinus rhythm. On beta-blockers. Was noticed to have wide-complex tachycardia at the rate of 220 reported by EMS, status post 100 J shock. As per cardiology note patient is a will require implantable cardioverter defibrillator however he is not a candidate given his multiorgan failure and nutritional status. Cardiology consulted. Recommendation at this time is medical management and optimizing electrolytes. Reconsult cardiology at time of discharge. (13) Edema Qualifiers: Edema type: due to malnutrition Malnutrition edema type: unspecified malnu trition type Qualified Code(s): E43 - Unspecified severe protein-calorie malnutrition Is this a current diagnosis for this admission?: Yes Plan: Improved. Likely secondary to protein calorie malnutrition evidenced by hypoalbuminemia; complicated by acute renal failure. Continue furosemide and spironolactone as above. Additional albumin x2 prior to furosemide. Nephrology consulted for dialysis. - Time Time Spent with patient: 35 or more minutes Medications reviewed and adjusted accordingly: Yes Anticipated Discharge Disposition: Detention Facility Anticipated Discharge Timeframe: >72
[2020-06-27] MEDS: PHARMACY COMMUNICATION ORDER MC SCH ×2 (21:41→21:46)
[2020-06-28 04:59] LABS: HEMATOCRIT 41.9 % (37.9-51.0); HEMOGLOBIN 13.7 g/dL (13.5-17.0); MEAN CORPUSCULAR HEMOGLOBIN 28.2 pg (27.0-33.4); MEAN CORPUSCULAR HGB CONC 32.7 g/dL (32.0-36.0); MEAN CORPUSCULAR VOLUME 86 fl (80-97); PLATELET COUNT 293 10^3/uL (150-450); RED BLOOD COUNT 4.87 10^6/uL (4.35-5.55); RED CELL DISTRIBUTION WIDTH 19.7 % (11.5-14.0); WHITE BLOOD COUNT 14.9 10^3/uL (4.0-10.5)
[2020-06-28 05:19] LABS: ANION GAP 10 (5-19); BLOOD UREA NITROGEN 19 mg/dL (7-20); CARBON DIOXIDE 26 mmol/L (22-30); CHLORIDE 95 mmol/L (98-107); GLUCOSE 102 mg/dL (75-110); POTASSIUM 4.3 mmol/L (3.6-5.0)
[2020-06-28 05:20] LABS: INTERNATIONAL RATION (INR) 3.82; PROTHROMBIN TIME 37.2 SEC (11.4-15.4)
[2020-06-28] MEDS: MIDODRINE HCL 5 MG TABLET PO SCH ×3 (05:44→22:05)
[2020-06-28] MEDS: PANTOPRAZOLE SODIUM 40 MG TABLET.DR PO SCH ×2 (05:44→18:37)
[2020-06-28] MEDS: FUROSEMIDE INJ/PF 20 MG/2 ML SDV IV SCH ×2 (05:45→18:37)
[2020-06-28] MEDS: IPRATROPIUM/ALBUTEROL 0.5-2.5 MG/3 ML AMPUL NEB SCH ×2 (07:34→20:13)
[2020-06-28] MEDS: HEPARIN SODIUM,PORCINE/D5W 25,000 UNIT/250 ML RTUINJ IV PRN (07:45)
[2020-06-28] MEDS: LIDOCAINE 5% (700 MG) TRANSDERMAL ADH..PATCH TP SCH (10:18)
[2020-06-28] MEDS: BISACODYL 10 MG SUPP.RECT PR SCH (10:19)
[2020-06-28] MEDS: METOPROLOL TARTRATE 50 MG TABLET PO SCH ×2 (10:19→22:05)
[2020-06-28] MEDS: DOCUSATE SODIUM 100 MG CAPSULE PO SCH ×2 (10:19→18:37)
[2020-06-28] MEDS: SPIRONOLACTONE 25 MG TABLET PO SCH (10:19)
[2020-06-28] MEDS: POLYETHYLENE GLYCOL 3350 POWDER 17 GM/1 PACKET PO SCH (10:20)
[2020-06-28] MEDS: FLUTICASONE NASAL SPRAY 50 MCG/SPRY 120 SPRAY/16 GM NASL SCH (10:20)
[2020-06-28] MEDS: ACETAMINOPHEN 325 MG TABLET PO PRN (14:08)
--- NOTE | 2020-06-28 18:01 | PDOC PROGRESS REPORT ---
Subjective Progress Note for:: 06/28/20 Subjective:: Pavel Lepe 59-year-old male past medical history of CHF ejection fraction of 20 to 25%, status post leadless permanent pacemaker, atrial fibrillation on Coumadin, recurrent pleural effusion and pneumothorax, mitral valve replacement at [place] which was complicated patient had to stay in the hospital for 4 months. Postoperatively patient had a PEA cardiac arrest and had renal failure and was discharged on hemodialysis was brought to ED by EMS after being found unresponsive and noted to be in V. tach, was given a shock of 100 J successful. 06/28/2020. No acute events noted. Reason For Visit: V TACHYCARDIA Physical Exam Vital Signs: Temp Pulse Resp BP Pulse Ox 97.4 F 82 16 115/93 H 98 06/28/20 08:16 06/28/20 16:09 06/28/20 16:09 06/28/20 16:09 06/28/20 16:09 Intake & Output 06/27/20 06/28/20 06/29/20 06:59 06:59 06:59 Intake Total 1000 1254 260 Output Total 650 1800 Balance 350 -546 260 Weight 52.1 kg 54.5 kg General appearance: PRESENT: no acute distress, well-developed, well-nourished Head exam: PRESENT: atraumatic, normocephalic Respiratory exam: PRESENT: clear to auscultation [place]. ABSENT: rales, rhonchi, wheezes Cardiovascular exam: PRESENT: RRR. ABSENT: diastolic murmur, rubs, systolic murmur GI/Abdominal exam: PRESENT: normal bowel sounds, soft. ABSENT: distended, guarding, mass, organolmegaly, rebound, tenderness Neurological exam: PRESENT: alert, awake, oriented to person, oriented to place, oriented to time, oriented to situation, CN II-XII grossly intact. ABSENT: motor sensory deficit Results Laboratory Results: 06/28/20 04:43 06/28/20 04:43 06/28/20 06/28/20 04:43 04:43 WBC 14.9 H RBC 4.87 Hgb 13.7 Hct 41.9 MCV 86 MCH 28.2 MCHC 32.7 RDW 19.7 H Plt Count 293 Sodium 130.6 L Potassium 4.3 Chloride 95 L Carbon Dioxide 26 Anion Gap 10 BUN 19 Creatinine 1.36 H Est GFR ( Amer) > 60 Glucose 102 Calcium 9.0 06/07/20 06/07/20 06/07/20 12:24 12:24 15:08 Creatine Kinase 34 L Troponin I 0.035 0.041 NT-Pro-B Natriuret Pep 06/07/20 06/07/20 06/08/20 16:45 22:01 05:25 Creatine Kinase 35 L 40 L 35 L Troponin I NT-Pro-B Natriuret Pep 06/08/20 05:25 Creatine Kinase Troponin I NT-Pro-B Natriuret Pep 18393 H Impressions: Head CT 06/07/20 13:02 IMPRESSION: Stable CT of the brain with bifrontal encephalomalacia. No acute intracranial event. EVIDENCE OF ACUTE STROKE: NO. Thoracentesis Ultrasound 06/08/20 00:00 IMPRESSION: SUCCESSFUL THORACENTESIS AND CHEST TUBE PLACEMENT USING ULTRASOUND GUIDANCE. Abdomen/Pelvis CT 06/17/20 00:00 IMPRESSION: 1. Small bowel obstruction with transition point in the left mid abdomen. This may be a high-grade partial obstruction. Distal small bowel and colon are decompressed. 2. Marked urinary bladder distention, suggestive of bladder outlet obstruction. Clinical correlation is recommended. 3. Loculated right hydropneumothorax and small left pleural effusion, not significantly changed. Compressive atelectasis at the lung bases. 4. Moderate ascites, slightly decreased from previous examination. 5. Mildly nodular contour of the liver, nonspecific however could indicate underlying hepatic cirrhosis. Clinical correlation is with recommended. 6. Diffuse subcutaneous edema, suggestive of fluid overload. 7. Colonic diverticulosis without evidence of diverticulitis. KUB X-Ray 06/22/20 00:00 IMPRESSION: Partial small bowel obstruction Chest CT 06/25/20 00:00 IMPRESSION: Loculated right hydropneumothorax which appears similar at the right lung base from the abdominal CT dated 06/17/2020. Slight interval increase in left pleural effusion. Moderate ascites with a similar nonspecific nodular hepatic contour and slight heterogeneous hepatic attenuation. Chest X-Ray 06/27/20 00:00 IMPRESSION: STABLE APPEARANCE OF THE CHEST. Assessment and Plan - Diagnosis (1) Small bowel obstruction Is this a current diagnosis for this admission?: Yes Plan: Resolved; passing flatus and multiple large bowel movements. Tolerating clear liquids. CT abdomen positive for high-grade partial obstruction on CT with a transition point in the left mid abdomen. KUB shows persistent mildly dilated loops of small bowel to the left of midline. Gas and fecal material in the rectum. KUB shows persistent small bowel obstruction. NG tube discontinued. Advance to soft/low residue liquids. Continue Colace and MiraLax daily. Monitor electrolytes and volume status. (2) Ventricular tachyarrhythmia Is this a current diagnosis for this admission?: Yes Plan: Sinus rhythm. On beta-blockers. Was noticed to have wide-complex tachycardia at the rate of 220 reported by EMS, status post 100 J shock. As per cardiology note patient is a will require implantable cardioverter defibrillator however he is not a candidate given his multiorgan failure and nutritional status. Cardiology consulted. Recommendation at this time is medical management and optimizing electrolytes. Reconsult cardiology at time of discharge. (3) DEMETRIUS (acute kidney injury) Is this a current diagnosis for this admission?: Yes Plan: Chronic renal failure. History of end-stage renal disease. Nephrology is consulted; receiving scheduled hemodialysis. Spoke w/ Dr. Rush, patient will require chronic dialysis following discharge. Monitor volume status. Monitor electrolytes and replace as needed. Mccall in place for strict I&Os (4) Ascites Qualifiers: Ascites type: due to alcoholic cirrhosis Qualified Code(s): K70.31 - Alcoholic cirrhosis of liver with ascites Is this a current diagnosis for this admission?: Yes Plan: Continue furosemide and spironolactone. Nephrology consulted for dialysis. Agrees to palliative paracentesis. Holding Coumadin; now on Heparin gtt. (5) COPD (chronic obstructive pulmonary disease) Qualifiers: COPD type: unspecified COPD Qualified Code(s): J44.9 - Chronic obstructive pulmonary disease, unspecified Is this a current diagnosis for this admission?: Yes Plan: Does not appear to be acutely exacerbated. No indications for antibiotic or steroid therapy at this time. We will decrease frequency of scheduled nebs. (6) Hydrothorax Is this a current diagnosis for this admission?: Yes Plan: Resolved. History of recurrent pleural effusion. Patient had a chest tube placed on the right chest. Status post chest tube removal on 06/17/2020. s/p pleurodesis. Repeat CT as above. Analgesics as needed. Encourage pulmonary toilet with incentive spirometer, flutter valve, position change. Monitor vitals. (7) Pneumothorax, iatrogenic Is this a current diagnosis for this admission?: Yes Plan: Resolved. Status post pleurodesis by surgery. SPO2 WNL on RA. Repeat chest x-ray shows resolution of pneumothorax. (8) CHF (congestive heart failure) Qualifiers: Heart failure type: combined systolic and diastolic Heart failure chronicity: chronic Qualified Code(s): I50.42 - Chronic combined systolic (congestive) and diastolic (congestive) heart failure Is this a current diagnosis for this admission?: Yes Plan: Acutely exacerbated on admission. proBNP 16,800 on admission. (06/07/2020) 2D echo ejection fraction 25 to 30% with moderate pulmonary hypertension. Mechanical mitral valve.Per previous physician Continue cardiac diet, beta-blockers, Aldactone, furosemide. Cardiology previously consulted; have signed off. Reconsult as necessary and at time of discharge to arrange for LifeVest. (9) Atrial fibrillation Qualifiers: Atrial fibrillation type: longstanding persistent Qualified Code(s): I48.11 - Longstanding persistent atrial fibrillation Is this a current diagnosis for this admission?: Yes Plan: Sinus rhythm. Rate controlled. Was initially on heparin drip and transitioned to Coumadin. INR supratherapeutic; 5.15-> 3.91-> 2.05 Continue to monitor on telemetry. Continue beta-blockers Coumadin resumed; pharmacy to dose. Will bridge w/ Lovenox. Cardiology previous consulted; have signed off. Reconsult as needed. (10) Mechanical heart valve present Is this a current diagnosis for this admission?: Yes Plan: History of aortic stenosis status post mechanical valve placement on Saturday patient hospitalization was complicated by PEA and remained in hospital for 3 to 4 months and [facility]. As per recent echo mechanical valve functioning properly. Anticoagulated with Coumadin. Goal of INR 2.5-3.5. (11) Hypoglycemia Is this a current diagnosis for this admission?: Yes Plan: Resolved. Hemoglobin A1c 5.1. Patient was been n.p.o. for several days due to small bowel obstruction. - Time Time Spent with patient: 25-34 minutes Medications reviewed and adjusted accordingly: Yes Anticipated Discharge Disposition: [facility] Anticipated Discharge Timeframe: when bed available
[2020-06-28] MEDS: PHARMACY COMMUNICATION ORDER MC SCH (22:05)
[2020-06-29] MEDS ORDERED: NORMAL SALINE 1000 ML 1,000 ML IV PRN (05:00)
[2020-06-29] MEDS ORDERED: HEPARIN SOD (PORCINE) 1,000 UNIT/ML 10 ML VIAL IV PRN (05:00)
[2020-06-29] MEDS: FUROSEMIDE INJ/PF 20 MG/2 ML SDV IV SCH ×3 (05:12→17:21)
[2020-06-29] MEDS: MIDODRINE HCL 5 MG TABLET PO SCH ×3 (05:12→21:42)
[2020-06-29] MEDS: PANTOPRAZOLE SODIUM 40 MG TABLET.DR PO SCH ×2 (05:12→17:15)
[2020-06-29] MEDS: HEPARIN SODIUM,PORCINE/D5W 25,000 UNIT/250 ML RTUINJ IV PRN (05:12)
[2020-06-29 05:41] LABS: HEMATOCRIT 41.9 % (37.9-51.0); HEMOGLOBIN 13.8 g/dL (13.5-17.0); MEAN CORPUSCULAR HEMOGLOBIN 28.2 pg (27.0-33.4); MEAN CORPUSCULAR VOLUME 86 fl (80-97); PLATELET COUNT 313 10^3/uL (150-450); WHITE BLOOD COUNT 11.2 10^3/uL (4.0-10.5)
[2020-06-29 06:09] LABS: ANION GAP 12 (5-19); BLOOD UREA NITROGEN 22 mg/dL (7-20); CARBON DIOXIDE 25 mmol/L (22-30); CHLORIDE 92 mmol/L (98-107); GLUCOSE 109 mg/dL (75-110); POTASSIUM 4.8 mmol/L (3.6-5.0)
[2020-06-29] MEDS ORDERED: METOPROLOL TARTRATE PF/INJ 5 MG/5 ML SDV IV ONE ×2 (07:31→08:00)
--- NOTE | 2020-06-29 07:39 | EKG REPORT ---
SEVERITY:- ABNORMAL ECG - WIDE COMPLEX TACHYCARDIA (SINUS TACH WITH PAC) NONSPECIFIC INTRAVENTRICULAR CONDUCTION DELAY : Confirmed by: Dandy Pickard MD 29-Jun-2020 07:38:34
[2020-06-29] MEDS: IPRATROPIUM/ALBUTEROL 0.5-2.5 MG/3 ML AMPUL NEB SCH ×2 (08:00→19:42)
[2020-06-29 08:05] LABS: CREATINE KINASE MB 1.04 ng/mL (<4.55); TROPONIN I 0.028 ng/mL
[2020-06-29] MEDS: HEPARIN SOD (PORCINE) 1,000 UNIT/ML 10 ML VIAL IV PRN (09:06)
--- NOTE | 2020-06-29 09:41 | RADIOLOGY REPORT (SQ) ---
EXAM DESCRIPTION: CHEST SINGLE VIEW IMAGES COMPLETED DATE/TIME: 06/29/2020 9:28 am REASON FOR STUDY: hypoxia COMPARISON: 06/27/2028 and 06/24/2020 EXAM PARAMETERS: NUMBER OF VIEWS: One view. TECHNIQUE: Single frontal radiographic view of the chest acquired. RADIATION DOSE: NA LIMITATIONS: None. FINDINGS: LUNGS AND PLEURA: Essentially stable pulmonary examination ; the appearance of increased d ensity within the right mid lung is favored to be on the basis of relatively diminished inspiratory e xpansion on today's examination. Stable, persistent bilateral pleural effusions. No pneumothorax. MEDIASTINUM AND HILAR STRUCTURES: Stable. HEART AND VASCULAR STRUCTURES: Stable. BONES: No acute findings. HARDWARE: Stable midline surgical changes. Stable position and appearance of a left subclavian dual- lumen catheter. OTHER: No other significant finding. IMPRESSION: Stable radiographic appearance of the chest. TECHNICAL DOCUMENTATION: JOB ID: [id number] 2010 [employer]- All Rights Reserved Reading location - IP/workstation name: [email or web address]
[2020-06-29] MEDS: METOPROLOL TARTRATE 50 MG TABLET PO SCH ×2 (11:15→21:42)
[2020-06-29] MEDS: DOCUSATE SODIUM 100 MG CAPSULE PO SCH ×2 (11:15→17:13)
[2020-06-29] MEDS: POLYETHYLENE GLYCOL 3350 POWDER 17 GM/1 PACKET PO SCH (11:17)
[2020-06-29] MEDS: SPIRONOLACTONE 25 MG TABLET PO SCH (11:17)
[2020-06-29] MEDS: BISACODYL 10 MG SUPP.RECT PR SCH (11:18)
[2020-06-29] MEDS: LIDOCAINE 5% (700 MG) TRANSDERMAL ADH..PATCH TP SCH (11:18)
[2020-06-29] MEDS: FLUTICASONE NASAL SPRAY 50 MCG/SPRY 120 SPRAY/16 GM NASL SCH (11:19)
[2020-06-29] MEDS ORDERED: MAG HYDROX/AL HYDROX/SIMETH SUSP 30 ML UDCUP ONE (11:48)
[2020-06-29] MEDS ORDERED: MAG HYDROX/AL HYDROX/SIMETH SUSP 30 ML UDCUP PO PRN (12:18)
--- NOTE | 2020-06-29 15:50 | PDOC PROGRESS REPORT ---
Subjective Progress Note for:: 06/29/20 Subjective:: Pavel Lepe 59-year-old male past medical history of CHF ejection fraction of 20 to 25%, status post leadless permanent pacemaker, atrial fibrillation on Coumadin, recurrent pleural effusion and pneumothorax, mitral valve replacement at [place] which was complicated patient had to stay in the hospital for 4 months. Postoperatively patient had a PEA cardiac arrest and had renal failure and was discharged on hemodialysis was brought to ED by EMS after being found unresponsive and noted to be in V. tach, was given a shock of 100 J successful. 06/29/2020. This morning patient was noted to be very tachycardic and short of breath while receiving hemodialysis, was given 1 dose of IV metoprolol which helped her heart rate, respiratory symptoms also improved post hemodialysis, patient is tolerating some p.o. feeds, passing flatus and having small bowel movements, still short of breath and distended abdomen, abdomen hypoactive, NG tube is out, denies any fever, chills, nausea, abdominal pain or any urinary symptoms. Patient is pending paracentesis and thoracentesis by radiology however patient INR still too high. Currently on heparin drip. Reason For Visit: V TACHYCARDIA Physical Exam Vital Signs: Temp Pulse Resp BP Pulse Ox 97.8 F 117 H 24 H 111/78 95 06/29/20 11:45 06/29/20 11:45 06/29/20 11:45 06/29/20 11:45 06/29/20 11:45 Intake & Output 06/28/20 06/29/20 06/30/20 06:59 06:59 06:59 Intake Total 1254 1014 1160 Output Total 7497 729 9574 Balance -546 364 -2240 Weight 54.5 kg 56.2 kg General appearance: PRESENT: mild distress, thin Head exam: PRESENT: atraumatic, normocephalic Respiratory exam: PRESENT: accessory muscle use, decreased breath sounds - Right lung, symmetrical, tachypnea. ABSENT: rales, rhonchi, wheezes GI/Abdominal exam: PRESENT: distended, normal bowel sounds, soft. ABSENT: guarding, mass, organolmegaly, rebound, tenderness Extremities exam: PRESENT: full ROM. ABSENT: calf tenderness, clubbing, pedal edema Neurological exam: PRESENT: alert, awake, oriented to person, oriented to place, oriented to time, oriented to situation, CN II-XII grossly intact. ABSENT: motor sensory deficit Results Laboratory Results: 06/29/20 05:16 06/29/20 05:16 06/29/20 06/29/20 05:16 05:16 WBC 11.2 H RBC 4.90 Hgb 13.8 Hct 41.9 MCV 86 MCH 28.2 MCHC 33.0 RDW 20.0 H Plt Count 313 Sodium 128.6 L Potassium 4.8 Chloride 92 L Carbon Dioxide 25 Anion Gap 12 BUN 22 H Creatinine 1.48 H Est GFR ( Amer) 59 L Glucose 109 Calcium 9.0 Magnesium 2.0 06/07/20 06/07/20 06/07/20 12:24 12:24 15:08 Creatine Kinase 34 L CK-MB (CK-2) Troponin I 0.035 0.041 NT-Pro-B Natriuret Pep 06/07/20 06/07/20 06/08/20 16:45 22:01 05:25 Creatine Kinase 35 L 40 L 35 L CK-MB (CK-2) Troponin I NT-Pro-B Natriuret Pep 06/08/20 06/29/20 06/29/20 05:25 07:30 07:30 Creatine Kinase 27 L CK-MB (CK-2) 1.04 Troponin I 0.028 NT-Pro-B Natriuret Pep 20922 H Impressions: Head CT 06/07/20 13:02 IMPRESSION: Stable CT of the brain with bifrontal encephalomalacia. No acute intracranial event. EVIDENCE OF ACUTE STROKE: NO. Thoracentesis Ultrasound 06/08/20 00:00 IMPRESSION: SUCCESSFUL THORACENTESIS AND CHEST TUBE PLACEMENT USING ULTRASOUND GUIDANCE. Abdomen/Pelvis CT 06/17/20 00:00 IMPRESSION: 1. Small bowel obstruction with transition point in the left mid abdomen. This may be a high-grade partial obstruction. Distal small bowel and colon are decompressed. 2. Marked urinary bladder distention, suggestive of bladder outlet obstruction. Clinical correlation is recommended. 3. Loculated right hydropneumothorax and small left pleural effusion, not significantly changed. Compressive atelectasis at the lung bases. 4. Moderate ascites, slightly decreased from previous examination. 5. Mildly nodular contour of the liver, nonspecific however could indicate underlying hepatic cirrhosis. Clinical correlation is with recommended. 6. Diffuse subcutaneous edema, suggestive of fluid overload. 7. Colonic diverticulosis without evidence of diverticulitis. KUB X-Ray 06/22/20 00:00 IMPRESSION: Partial small bowel obstruction Chest CT 06/25/20 00:00 IMPRESSION: Loculated right hydropneumothorax which appears similar at the right lung base from the abdominal CT dated 06/17/2020. Slight interval increase in left pleural effusion. Moderate ascites with a similar nonspecific nodular hepatic contour and slight heterogeneous hepatic attenuation. Chest X-Ray 06/29/20 00:00 IMPRESSION: Stable radiographic appearance of the chest. Assessment and Plan - Diagnosis (1) Small bowel obstruction Is this a current diagnosis for this admission?: Yes Plan: Resolved. Passing flatus, having small bowel meds. Tolerating clear liquids. CT abdomen positive for high-grade partial obstruction on CT with a transition point in the left mid abdomen. KUB shows persistent mildly dilated loops of small bowel to the left of midline. Gas and fecal material in the rectum. KUB shows persistent small bowel obstruction. NG tube discontinued. Advance to soft/low residue liquids. Continue Colace and MiraLax daily. Monitor electrolytes and volume status. (2) Ventricular tachyarrhythmia Is this a current diagnosis for this admission?: Yes Plan: Sinus rhythm. On beta-blockers. Was noticed to have wide-complex tachycardia at the rate of 220 reported by EMS, status post 100 J shock. As per cardiology note patient is a will require implantable cardioverter defibrillator however he is not a candidate given his multiorgan failure and nutritional status. Cardiology consulted. Recommendation at this time is medical management and optimizing electrolytes. Reconsult cardiology at time of discharge. (3) DEMETRIUS (acute kidney injury) Is this a current diagnosis for this admission?: Yes Plan: Chronic renal failure. History of end-stage renal disease. Nephrology is consulted; receiving scheduled hemodialysis. Spoke w/ Dr. Rush, patient will require chronic dialysis following discharge. Monitor volume status. Monitor electrolytes and replace as needed. Mccall in place for strict I&Os (4) Ascites Qualifiers: Ascites type: due to alcoholic cirrhosis Qualified Code(s): K70.31 - Alcoholic cirrhosis of liver with ascites Is this a current diagnosis for this admission?: Yes Plan: Continue furosemide and spironolactone. Nephrology consulted for dialysis. Agrees to palliative paracentesis. Pending paracentesis while INR is being corrected. Holding Coumadin; now on Heparin gtt. (5) COPD (chronic obstructive pulmonary disease) Qualifiers: COPD type: unspecified COPD Qualified Code(s): J44.9 - Chronic obstructive pulmonary disease, unspecified Is this a current diagnosis for this admission?: Yes Plan: Does not appear to be acutely exacerbated. No indications for antibiotic or steroid therapy at this time. We will decrease frequency of scheduled nebs. (6) Hydrothorax Is this a current diagnosis for this admission?: Yes Plan: Resolved. History of recurrent pleural effusion. Patient had a chest tube placed on the right chest. Status post chest tube removal on 06/17/2020. s/p pleurodesis. Repeat CT as above. Analgesics as needed. Encourage pulmonary toilet with incentive spirometer, flutter valve, position change. Monitor vitals. (7) Pneumothorax, iatrogenic Is this a current diagnosis for this admission?: Yes Plan: Resolved. Status post pleurodesis by surgery. SPO2 WNL on RA. Repeat chest x-ray shows resolution of pneumothorax. (8) CHF (congestive heart failure) Qualifiers: Heart failure type: combined systolic and diastolic Heart failure chronicity: chronic Qualified Code(s): I50.42 - Chronic combined systolic (congestive) and diastolic (congestive) heart failure Is this a current diagnosis for this admission?: Yes Plan: Acutely exacerbated on admission. proBNP 16,800 on admission. (06/07/2020) 2D echo ejection fraction 25 to 30% with moderate pulmonary hypertension. Mechanical mitral valve.Per previous physician Continue cardiac diet, beta-blockers, Aldactone, furosemide. Cardiology previously consulted; have signed off. Reconsult as necessary and at time of discharge to arrange for LifeVest. (9) Atrial fibrillation Qualifiers: Atrial fibrillation type: longstanding persistent Qualified Code(s): I48.11 - Longstanding persistent atrial fibrillation Is this a current diagnosis for this admission?: Yes Plan: Sinus rhythm. Rate controlled. Was initially on heparin drip and transitioned to Coumadin. INR supratherapeutic; 5.15-> 3.91-> 2.05 Continue to monitor on telemetry. Continue beta-blockers Coumadin resumed; pharmacy to dose. Will bridge w/ Lovenox. Cardiology previous consulted; have signed off. Reconsult as needed. (10) Mechanical heart valve present Is this a current diagnosis for this admission?: Yes Plan: History of aortic stenosis status post mechanical valve placement on Saturday patient hospitalization was complicated by PEA and remained in hospital for 3 to 4 months and [facility]. As per recent echo mechanical valve functioning properly. Anticoagulated with Coumadin. Goal of INR 2.5-3.5. (11) Hypoglycemia Is this a current diagnosis for this admission?: Yes Plan: Resolved. Hemoglobin A1c 5.1. Patient was been n.p.o. for several days due to small bowel obstruction. - Time Time Spent with patient: 35 or more minutes Medications reviewed and adjusted accordingly: Yes Anticipated Discharge Disposition: Nursing Home Facility Anticipated Discharge Timeframe: when bed available
[2020-06-29 16:10] LABS: INTERNATIONAL RATION (INR) 3.08; PROTHROMBIN TIME 31.6 SEC (11.4-15.4)
[2020-06-29 16:40] LABS: CREATINE KINASE MB 2.04 ng/mL (<4.55)
[2020-06-29 16:52] LABS: TROPONIN I 0.142 ng/mL
[2020-06-29] MEDS: ASPIRIN 81 MG TABLET, CHEWABLE PO SCH (18:05)
[2020-06-29] MEDS ORDERED: NITROGLYCERIN 0.4 MG/TAB 25 TAB/BOTTLE SL PRN (18:17)
[2020-06-29] MEDS ORDERED: MORPHINE SULFATE 10 MG/ML INJ IV PRN (18:18)
[2020-06-29] MEDS: PHARMACY COMMUNICATION ORDER MC SCH (21:42)
[2020-06-29] MEDS: ATORVASTATIN CALCIUM 40 MG TABLET PO SCH (21:42)
--- NOTE | 2020-06-29 22:57 | PDOC PROGRESS REPORT ---
Subjective Progress Note for:: 06/29/20 Subjective:: I am seeing the patient during dialysis this morning. Prior to coming to dialysis the patient complained of shortness of breath although his oxygen saturation was acceptable. A chest x-ray was done which was unchanged from previous. Patient has previously refused to have paracentesis done for his ascites. I asked him if he will agree for paracentesis to help relieve the pressure to his lungs and he said he would. However at this time he is already on warfarin so few days. When I finally get to see him during dialysis he is already feeling better with ultrafiltration. He denies any cough. He does have a little bit of chest pain. Reason For Visit: V TACHYCARDIA Physical Exam Vital Signs: Temp Pulse Resp BP Pulse Ox 97.8 F 138 H 18 109/74 100 06/29/20 07:30 06/29/20 08:01 06/29/20 08:01 06/29/20 07:30 06/29/20 08:01 Intake & Output 06/28/20 06/29/20 06/30/20 06:59 06:59 06:59 Intake Total 1254 1014 Output Total 1800 650 Balance -546 364 Weight 54.5 kg 56.2 kg Vitals during dialysis: Blood pressure 115/64, heart rate of 101, blood flow rate of 250 mL/min and dialysate flow rate of 600 mL/min. Exam: General appearance: PRESENT: no acute distress, cooperative, fairly developed and fairly nourished Head exam: PRESENT: atraumatic, normocephalic Eye exam: PRESENT: conjunctiva pink, PERRLA. ABSENT: scleral icterus Neck exam: ABSENT: JVD Respiratory exam: PRESENT: Diminished breath sounds especially the right lung [place]. ABSENT: crackles, rales, rhonchi, unlabored, wheezes Cardiovascular exam: PRESENT: Irregular rate rhythm -+S1, +S2. ABSENT: diastolic murmur, systolic murmur GI/Abdominal exam: PRESENT: normal bowel sounds, soft. ABSENT: guarding, mass, tenderness Extremities exam: Grade 1 bilateral lower extremity pitting edema Neurological exam: PRESENT: alert, awake, oriented to person, place and time. Skin exam: PRESENT: dry, warm, Cardiovascular exam: PRESENT: +S1, +S2 GI/Abdominal exam: PRESENT: ascites, distended, normal bowel sounds, soft. ABSENT: firm, guarding, organomegaly Results Laboratory Results: 06/29/20 05:16 06/29/20 05:16 06/29/20 06/29/20 05:16 05:16 WBC 11.2 H RBC 4.90 Hgb 13.8 Hct 41.9 MCV 86 MCH 28.2 MCHC 33.0 RDW 20.0 H Plt Count 313 Sodium 128.6 L Potassium 4.8 Chloride 92 L Carbon Dioxide 25 Anion Gap 12 BUN 22 H Creatinine 1.48 H Est GFR ( Amer) 59 L Glucose 109 Calcium 9.0 Magnesium 2.0 06/07/20 06/07/20 06/07/20 12:24 12:24 15:08 Creatine Kinase 34 L CK-MB (CK-2) Troponin I 0.035 0.041 NT-Pro-B Natriuret Pep 06/07/20 06/07/20 06/08/20 16:45 22:01 05:25 Creatine Kinase 35 L 40 L 35 L CK-MB (CK-2) Troponin I NT-Pro-B Natriuret Pep 06/08/20 06/29/20 06/29/20 05:25 07:30 07:30 Creatine Kinase 27 L CK-MB (CK-2) 1.04 Troponin I 0.028 NT-Pro-B Natriuret Pep 56168 H Impressions: Head CT 06/07/20 13:02 IMPRESSION: Stable CT of the brain with bifrontal encephalomalacia. No acute intracranial event. EVIDENCE OF ACUTE STROKE: NO. Thoracentesis Ultrasound 06/08/20 00:00 IMPRESSION: SUCCESSFUL THORACENTESIS AND CHEST TUBE PLACEMENT USING ULTRASOUND GUIDANCE. Abdomen/Pelvis CT 06/17/20 00:00 IMPRESSION: 1. Small bowel obstruction with transition point in the left mid abdomen. This may be a high-grade partial obstruction. Distal small bowel and colon are decompressed. 2. Marked urinary bladder distention, suggestive of bladder outlet obstruction. Clinical correlation is recommended. 3. Loculated right hydropneumothorax and small left pleural effusion, not significantly changed. Compressive atelectasis at the lung bases. 4. Moderate ascites, slightly decreased from previous examination. 5. Mildly nodular contour of the liver, nonspecific however could indicate underlying hepatic cirrhosis. Clinical correlation is with recommended. 6. Diffuse subcutaneous edema, suggestive of fluid overload. 7. Colonic diverticulosis without evidence of diverticulitis. KUB X-Ray 06/22/20 00:00 IMPRESSION: Partial small bowel obstruction Chest CT 06/25/20 00:00 IMPRESSION: Loculated right hydropneumothorax which appears similar at the right lung base from the abdominal CT dated 06/17/2020. Slight interval increase in left pleural effusion. Moderate ascites with a similar nonspecific nodular hepatic contour and slight heterogeneous hepatic attenuation. Assessment & Plan - Diagnosis (1) ESRD (end stage renal disease) on dialysis Is this a current diagnosis for this admission?: Yes Plan: We will do dialysis today for 2.5 hours, using the patient's PermCath, with 3 potassium bath, blood flow rate of 250 mL per minute, dialysate flow rate of 600 mL per minute, ultrafiltration 2LL as tolerated , no heparin and no Procrit. Patient is being closely monitored throughout dialysis treatment especially with hypotension. Patient's urine output remains to be very minimal at around 400 mL despite having Mccall catheter due to finding of bladder outlet obstruction on CT scan. His creatinine has decreased but I think moving forward, with all his other comorbidities and episodes of fluid overload he is better off to stay on dialysis chronically to help manage volume. We will have case management to arrange outpatient chronic dialysis treatment in anticipation of the patient being discharged. (2) Bladder outlet obstruction Is this a current diagnosis for this admission?: Yes Plan: Mccall catheter in place currently. Urine output remains minimal around 300 to 600 mL on furosemide. (3) Small bowel obstruction Is this a current diagnosis for this admission?: Yes Plan: Resolved. (4) Pleural effusion Is this a current diagnosis for this admission?: Yes Plan: Status post thoracentesis, 06/08 with initial chest tube placement. Chest tube placement revised with pleurodesis on Wednesday 06/13. Chest tube removed. 06/17. Chest CT on June 25 showed persistent loculated right hydropneumothorax. Repeat chest x-ray today was unchanged. (5) CHF (congestive heart failure) Qualifiers: Heart failure type: combined systolic and diastolic Heart failure chronicity: chronic Qualified Code(s): I50.42 - Chronic combined systolic (congestive) and diastolic (congestive) heart failure Is this a current diagnosis for this admission?: Yes Plan: EF of 25 to 30% with moderately reduced right ventricular systolic function. Patient has cardiomyopathy. Cardiology on board. Recommendation includes placement of implantable defibrillator but uncertain if the patient can tolerate the procedure. (6) Ventricular tachyarrhythmia Is this a current diagnosis for this admission?: Yes Plan: Per cardiology. (7) Hypotension Qualifiers: Hypotension type: idiopathic hypotension Qualified Code(s): I95.0 - Idiopathic hypotension Is this a current diagnosis for this admission?: Yes Plan: Likely secondary to poor cardiac function and cardiomyopathy. Currently on midodrine. Adrenal insufficiency has been previously ruled out during previous admission. (8) Hyponatremia Is this a current diagnosis for this admission?: Yes Plan: Chronic and stable. Secondary to hypervolemic state with CHF and ESRD. (9) Atrial fibrillation Qualifiers: Atrial fibrillation type: longstanding persistent Qualified Code(s): I48.11 - Longstanding persistent atrial fibrillation Is this a current diagnosis for this admission?: Yes Plan: On anticoagulation. Rate controlled (10) Ascites Qualifiers: Ascites type: due to alcoholic cirrhosis Qualified Code(s): K70.31 - Alcoholic cirrhosis of liver with ascites Is this a current diagnosis for this admission?: Yes Plan: Patient has agreed for paracentesis. Discussed with Dr. Ren. (11) Leukocytosis Qualifiers: Leukocytosis type: unspecified Qualified Code(s): D72.829 - Elevated white blood cell count, unspecified Is this a current diagnosis for this admission?: Yes Plan: Improved today. (12) Pneumothorax, iatrogenic Is this a current diagnosis for this admission?: Yes Plan: Post chest tube placement. (13) H/O mitral valve replacement with mechanical valve Is this a current diagnosis for this admission?: Yes Plan: Currently on warfarin. - Time Time with patient: 15-25 minutes
[2020-06-30 05:23] LABS: ABSOLUTE LYMPHOCYTES (AUTO) 0.7 10^3/uL (0.5-4.7); ABSOLUTE MONOCYTES (AUTO) 0.7 10^3/uL (0.1-1.4); ABSOLUTE NEUT (AUTO) 9.8 10^3/uL (1.7-8.2); BASOPHILS % (AUTO) 0.3 % (0-2); EOSINOPHILS % (AUTO) 0.1 % (0-6); HEMATOCRIT 37.2 % (37.9-51.0); HEMOGLOBIN 12.4 g/dL (13.5-17.0); LYMPHOCYTES % (AUTO) 6.4 % (13-45); MEAN CORPUSCULAR HEMOGLOBIN 28.2 pg (27.0-33.4); MEAN CORPUSCULAR HGB CONC 33.2 g/dL (32.0-36.0); MEAN CORPUSCULAR VOLUME 85 fl (80-97); MONOCYTES % (AUTO) 6.2 % (3-13); PLATELET COUNT 276 10^3/uL (150-450); RED BLOOD COUNT 4.38 10^6/uL (4.35-5.55); RED CELL DISTRIBUTION WIDTH 19.7 % (11.5-14.0); TOTAL CELLS COUNTED % (AUTO) 100 %; WHITE BLOOD COUNT 11.3 10^3/uL (4.0-10.5)
[2020-06-30] MEDS: MIDODRINE HCL 5 MG TABLET PO SCH ×3 (05:30→21:53)
[2020-06-30 05:31] LABS: INTERNATIONAL RATION (INR) 3.04; PROTHROMBIN TIME 31.3 SEC (11.4-15.4)
[2020-06-30] MEDS: PANTOPRAZOLE SODIUM 40 MG TABLET.DR PO SCH ×2 (05:31→18:13)
[2020-06-30] MEDS: FUROSEMIDE INJ/PF 20 MG/2 ML SDV IV SCH (05:31)
[2020-06-30 05:41] LABS: ANION GAP 9 (5-19); BLOOD UREA NITROGEN 19 mg/dL (7-20); CALCIUM 8.6 mg/dL (8.4-10.2); CARBON DIOXIDE 26 mmol/L (22-30); CHLORIDE 94 mmol/L (98-107); GLUCOSE 98 mg/dL (75-110); POTASSIUM 4.7 mmol/L (3.6-5.0)
[2020-06-30] MEDS: IPRATROPIUM/ALBUTEROL 0.5-2.5 MG/3 ML AMPUL NEB SCH ×2 (08:11→19:45)
[2020-06-30] MEDS: DOCUSATE SODIUM 100 MG CAPSULE PO SCH ×2 (10:02→18:11)
[2020-06-30] MEDS: BISACODYL 10 MG SUPP.RECT PR SCH (10:02)
[2020-06-30] MEDS: POLYETHYLENE GLYCOL 3350 POWDER 17 GM/1 PACKET PO SCH (10:03)
[2020-06-30] MEDS: FLUTICASONE NASAL SPRAY 50 MCG/SPRY 120 SPRAY/16 GM NASL SCH (10:05)
[2020-06-30] MEDS: SPIRONOLACTONE 25 MG TABLET PO SCH (10:05)
[2020-06-30] MEDS: ASPIRIN 81 MG TABLET, CHEWABLE PO SCH (10:05)
[2020-06-30] MEDS: METOPROLOL TARTRATE 50 MG TABLET PO SCH ×2 (10:07→21:54)
[2020-06-30] MEDS: LIDOCAINE 5% (700 MG) TRANSDERMAL ADH..PATCH TP SCH (10:08)
[2020-06-30] MEDS ORDERED: PHYTONADIONE 5 MG TABLET PO ONE (11:45)
[2020-06-30] MEDS: HEPARIN SODIUM,PORCINE/D5W 25,000 UNIT/250 ML RTUINJ IV PRN (14:47)
--- NOTE | 2020-06-30 15:03 | PDOC CONSULTATION ---
Consultation Consult Date: 06/30/20 Attending physician:: ROD BARCENAS Provider Consulted: SAMANTHA HOOD Consult reason:: Elevated troponin History of Present Illness Admission Date/PCP: 06/07/20 16:07 SUJIT AMARO PA-C History of Present Illness: SHAHRZAD JAIN is a 59 year old male well known to the cardiology service from prior consultations and who is reconsulted secondary to elevated troponin. The patient was admitted on JUN 13 and since then has had a very complicated course. He has developed ascites, small bowel obstruction, possible liver cirrhosiss, right hydropneumothorax and subcutaneous edema secondary to fluid overload among other pathologies. He was in his usual state of health until yesterday when, while undergoing dialysis, had an episode of SVT associated with some hypotension and shortness of breath. It resolved spontaneously and has not recurred since then. Today the patient has no cardiac complaints and just wants to go home. Physical exam on 06/30/2020: GENERAL: Appears chronically ill, cachectic, very pale. HEENT: Normocephalic, atraumatic. Pupils equal. NECK: No JVD. No carotid bruits. LUNGS: decreased breath sounds bilaterally. Normal respiratory effort without the use of accessory muscles or intercostal retractions. CARDIOVASCULAR: Mildly tachycardic. Regular rate and rhythm, normal S1 and S2 without murmurs, rubs, or gallops. PMI not displaced. ABDOMEN: Protuberant EXTREMITIES: 1+ pitting edema bilaterally SKIN: Very pale and dry. Past Medical History Cardiac Medical History: Reports: Atrial Fibrillation, Hypertension Pulmonary Medical History: Reports: Chronic Obstructive Pulmonary Disease (COPD), Respiratory Failure Denies: Tuberculosis Neurological Medical History: Reports: Seizures - LAST 5 YR AGO Renal/ Medical History: Reports: End Stage Renal Disease Psychiatric Medical History: Denies: Depression Hematology: Reports: Anemia Past Surgical History Past Surgical History: Reports: Orthopedic Surgery - hip, arm, Pacemaker, Valve Replacement - Mechanical mitral valve replacement, October 2019, Other - Complicated mitral valve replacement for severe mitral stenosis? Social History Lives with: Alone Smoking Status: Unknown if Ever Smoked Electronic Cigarette use?: No Frequency of Alcohol Use: Occasional Hx Recreational Drug Use: No Drugs: None Hx Prescription Drug Abuse: No - Advance Directive Resuscitation Status: Full Code Family History Family History: Reviewed & Not Pertinent, CAD Parental Family History Reviewed: Yes Children Family History Reviewed: Yes Sibling(s) Family History Reviewed.: Yes Medication/Allergy Home Medications: Fluticasone Propionate [Flonase Nasal [place] 50 Mcg/[place] 16 gm] 2 spray NASL DAILY 03/14/20 Metoprolol Tartrate [Lopressor 50 mg Tablet] 50 mg PO Q12 30 Days #60 tablet 03/23/20 Bumetanide [Bumex 1 mg Tablet] 0.5 mg PO DAILY 30 Days #15 tablet 04/08/20 Midodrine HCl 10 mg PO TID 30 Days #90 tablet 04/08/20 Warfarin Sodium [Jantoven 3 mg Tablet] 3 mg PO QHS 30 Days #30 tablet 04/08/20 Furosemide [Lasix 40 mg Tablet] 40 mg PO QAM 06/07/20 Allergies/Adverse Reactions: metoprolol [From Lopressor] Adverse Reaction (Mild, Verified 06/14/20 06:18) rash Physical Exam Vital Signs: Temp Pulse Resp BP Pulse Ox 97.7 F 111 H 17 93/68 L 97 06/30/20 11:03 06/30/20 11:03 06/30/20 11:03 06/30/20 11:03 06/30/20 11:03 Intake & Output 06/29/20 06/30/20 07/01/20 06:59 06:59 06:59 Intake Total 1014 1420 236 Output Total 650 3600 Balance 364 -2180 236 Weight 56.2 kg 52.4 kg Results Laboratory Results: 06/30/20 05:00 06/30/20 05:00 06/30/20 06/30/20 05:00 05:00 WBC 11.3 H RBC 4.38 Hgb 12.4 L Hct 37.2 L MCV 85 MCH 28.2 MCHC 33.2 RDW 19.7 H Plt Count 276 Seg Neutrophils % 87.0 H Sodium 128.5 L Potassium 4.7 Chloride 94 L Carbon Dioxide 26 Anion Gap 9 BUN 19 Creatinine 1.42 H Est GFR ( Amer) > 60 Glucose 98 Calcium 8.6 Magnesium 2.1 06/07/20 06/07/20 06/07/20 12:24 12:24 15:08 Creatine Kinase 34 L CK-MB (CK-2) Troponin I 0.035 0.041 NT-Pro-B Natriuret Pep 06/07/20 06/07/20 06/08/20 16:45 22:01 05:25 Creatine Kinase 35 L 40 L 35 L CK-MB (CK-2) Troponin I NT-Pro-B Natriuret Pep 06/08/20 06/29/20 06/29/20 05:25 07:30 07:30 Creatine Kinase 27 L CK-MB (CK-2) 1.04 Troponin I 0.028 NT-Pro-B Natriuret Pep [id number] H 06/29/20 06/29/20 06/29/20 15:11 15:11 20:37 Creatine Kinase 39 L CK-MB (CK-2) 2.04 Troponin I 0.142 0.166 NT-Pro-B Natriuret Pep 06/30/20 05:00 Creatine Kinase CK-MB (CK-2) Troponin I 0.119 NT-Pro-B Natriuret Pep Impressions: Head CT 06/07/20 13:02 IMPRESSION: Stable CT of the brain with bifrontal encephalomalacia. No acute intracranial event. EVIDENCE OF ACUTE STROKE: NO. Thoracentesis Ultrasound 06/08/20 00:00 IMPRESSION: SUCCESSFUL THORACENTESIS AND CHEST TUBE PLACEMENT USING ULTRASOUND GUIDANCE. Abdomen/Pelvis CT 06/17/20 00:00 IMPRESSION: 1. Small bowel obstruction with transition point in the left mid abdomen. This may be a high-grade partial obstruction. Distal small bowel and colon are decompressed. 2. Marked urinary bladder distention, suggestive of bladder outlet obstruction. Clinical correlation is recommended. 3. Loculated right hydropneumothorax and small left pleural effusion, not significantly changed. Compressive atelectasis at the lung bases. 4. Moderate ascites, slightly decreased from previous examination. 5. Mildly nodular contour of the liver, nonspecific however could indicate underlying hepatic cirrhosis. Clinical correlation is with recommended. 6. Diffuse subcutaneous edema, suggestive of fluid overload. 7. Colonic diverticulosis without evidence of diverticulitis. KUB X-Ray 06/22/20 00:00 IMPRESSION: Partial small bowel obstruction Chest CT 06/25/20 00:00 IMPRESSION: Loculated right hydropneumothorax which appears similar at the right lung base from the abdominal CT dated 06/17/2020. Slight interval increase in left pleural effusion. Moderate ascites with a similar nonspecific nodular hepatic contour and slight heterogeneous hepatic attenuation. Chest X-Ray 06/29/20 00:00 IMPRESSION: Stable radiographic appearance of the chest. Assessment & Plan - Diagnosis (1) Type 2 myocardial infarction Is this a current diagnosis for this admission?: Yes Plan: Very unfortunate 59y/o, very sick male who had been deemed not a candidate for invasive cardiovascular procedures and treatments given his poor prognosis and very poor current condition. Unfortunately, his telemetry shows increased ventricular ectopy, short runs of VT and SVT which is the etiology for his mildly elevated troponin. The patient continues to have a very poor prognosis and his CV management is complicated by his very soft blood pressure. Given his ventricular irritability he would benefit from increased doses of beta jelani and, in order to achieve that in the setting of his soft BP, I recommend decreasing his aldactone as his BB dose is increased. Once again, his prognosis is very poor and all of his other comorbidities preclude any invasive cardiac procedures/treatments at this time.
[2020-06-30] MEDS ORDERED: IPRATROPIUM/ALBUTEROL 0.5-2.5 MG/3 ML AMPUL NEB ONE (17:44)
[2020-06-30] MEDS: IPRATROPIUM/ALBUTEROL 0.5-2.5 MG/3 ML AMPUL NEB PRN (17:47)
[2020-06-30] MEDS ORDERED: FUROSEMIDE 20 MG TABLET PO SCH (18:00)
--- NOTE | 2020-06-30 18:19 | PDOC PROGRESS REPORT ---
Subjective Progress Note for:: 06/30/20 Subjective:: Pavel Lepe 59-year-old male past medical history of CHF ejection fraction of 20 to 25%, status post leadless permanent pacemaker, atrial fibrillation on Coumadin, recurrent pleural effusion and pneumothorax, mitral valve replacement at [place] which was complicated patient had to stay in the hospital for 4 months. Postoperatively patient had a PEA cardiac arrest and had renal failure and was discharged on hemodialysis was brought to ED by EMS after being found unresponsive and noted to be in V. tach, was given a shock of 100 J successful. 06/29/2020. This morning patient was noted to be very tachycardic and short of breath while receiving hemodialysis, was given 1 dose of IV metoprolol which helped her heart rate, respiratory symptoms also improved post hemodialysis, patient is tolerating some p.o. feeds, passing flatus and having small bowel movements, still short of breath and distended abdomen, abdomen hypoactive, NG tube is out, denies any fever, chills, nausea, abdominal pain or any urinary symptoms. Patient is pending paracentesis and thoracentesis by radiology however patient INR still too high. Currently on heparin drip. 06/30/2020. No acute events overnight. Patient still complaining of shortness of breath however chest pain has resolved, troponins trending down, and Dr. Garcia fire suppression captain has seen patient and as per her note patient is not a candidate for any cardiac intervention due to multiple underlying comorbidities, patient denies any nausea, vomiting, diarrhea, constipation. Denies any fever. Reason For Visit: V TACHYCARDIA Physical Exam Vital Signs: Temp Pulse Resp BP Pulse Ox 97.3 F 85 16 87/67 L 97 06/30/20 15:42 06/30/20 17:47 06/30/20 17:47 06/30/20 15:42 06/30/20 17:47 Intake & Output 06/29/20 06/30/20 07/01/20 06:59 06:59 06:59 Intake Total 1014 1420 446 Output Total 650 3600 Balance 364 -2180 446 Weight 56.2 kg 52.4 kg General appearance: PRESENT: no acute distress, thin Head exam: PRESENT: atraumatic, normocephalic Respiratory exam: PRESENT: clear to auscultation [place], decreased breath sounds. ABSENT: rales, rhonchi, wheezes Cardiovascular exam: PRESENT: RRR. ABSENT: diastolic murmur, rubs, systolic murmur GI/Abdominal exam: PRESENT: ascites, normal bowel sounds, soft. ABSENT: distended, guarding, mass, organolmegaly, rebound, tenderness Neurological exam: PRESENT: alert, awake, oriented to person, oriented to place, oriented to time, oriented to situation, CN II-XII grossly intact. ABSENT: motor sensory deficit Results Laboratory Results: 06/30/20 05:00 06/30/20 05:00 06/30/20 06/30/20 05:00 05:00 WBC 11.3 H RBC 4.38 Hgb 12.4 L Hct 37.2 L MCV 85 MCH 28.2 MCHC 33.2 RDW 19.7 H Plt Count 276 Seg Neutrophils % 87.0 H Sodium 128.5 L Potassium 4.7 Chloride 94 L Carbon Dioxide 26 Anion Gap 9 BUN 19 Creatinine 1.42 H Est GFR ( Amer) > 60 Glucose 98 Calcium 8.6 Magnesium 2.1 06/07/20 06/07/20 06/07/20 12:24 12:24 15:08 Creatine Kinase 34 L CK-MB (CK-2) Troponin I 0.035 0.041 NT-Pro-B Natriuret Pep 06/07/20 06/07/20 06/08/20 16:45 22:01 05:25 Creatine Kinase 35 L 40 L 35 L CK-MB (CK-2) Troponin I NT-Pro-B Natriuret Pep 06/08/20 06/29/20 06/29/20 05:25 07:30 07:30 Creatine Kinase 27 L CK-MB (CK-2) 1.04 Troponin I 0.028 NT-Pro-B Natriuret Pep 67540 H 06/29/20 06/29/20 06/29/20 15:11 15:11 20:37 Creatine Kinase 39 L CK-MB (CK-2) 2.04 Troponin I 0.142 0.166 NT-Pro-B Natriuret Pep 06/30/20 05:00 Creatine Kinase CK-MB (CK-2) Troponin I 0.119 NT-Pro-B Natriuret Pep Impressions: Head CT 06/07/20 13:02 IMPRESSION: Stable CT of the brain with bifrontal encephalomalacia. No acute intracranial event. EVIDENCE OF ACUTE STROKE: NO. Thoracentesis Ultrasound 06/08/20 00:00 IMPRESSION: SUCCESSFUL THORACENTESIS AND CHEST TUBE PLACEMENT USING ULTRASOUND GUIDANCE. Abdomen/Pelvis CT 06/17/20 00:00 IMPRESSION: 1. Small bowel obstruction with transition point in the left mid abdomen. This may be a high-grade partial obstruction. Distal small bowel and colon are decompressed. 2. Marked urinary bladder distention, suggestive of bladder outlet obstruction. Clinical correlation is recommended. 3. Loculated right hydropneumothorax and small left pleural effusion, not significantly changed. Compressive atelectasis at the lung bases. 4. Moderate ascites, slightly decreased from previous examination. 5. Mildly nodular contour of the liver, nonspecific however could indicate underlying hepatic cirrhosis. Clinical correlation is with recommended. 6. Diffuse subcutaneous edema, suggestive of fluid overload. 7. Colonic diverticulosis without evidence of diverticulitis. KUB X-Ray 06/22/20 00:00 IMPRESSION: Partial small bowel obstruction Chest CT 06/25/20 00:00 IMPRESSION: Loculated right hydropneumothorax which appears similar at the r ight lung base from the abdominal CT dated 06/17/2020. Slight interval increase in left pleural effusion. Moderate ascites with a similar nonspecific nodular hepatic contour and slight heterogeneous hepatic attenuation. Chest X-Ray 06/29/20 00:00 IMPRESSION: Stable radiographic appearance of the chest. Assessment and Plan - Diagnosis (1) Small bowel obstruction Is this a current diagnosis for this admission?: Yes Plan: Resolved. Passing flatus, having small bowel meds. Tolerating clear liquids. CT abdomen positive for high-grade partial obstruction on CT with a transition point in the left mid abdomen. KUB shows persistent mildly dilated loops of small bowel to the left of midline. Gas and fecal material in the rectum. KUB shows persistent small bowel obstruction. NG tube discontinued. Advance to soft/low residue liquids. Continue Colace and MiraLax daily. Monitor electrolytes and volume status. (2) Ventricular tachyarrhythmia Is this a current diagnosis for this admission?: Yes Plan: Sinus rhythm. On beta-blockers. Was noticed to have wide-complex tachycardia at the rate of 220 reported by EMS, status post 100 J shock. As per cardiology note patient is a will require implantable cardioverter defibrillator however he is not a candidate given his multiorgan failure and nutritional status. Cardiology consulted. Recommendation at this time is medical management and optimizing electrolytes. Reconsult cardiology at time of discharge. (3) DEMETRIUS (acute kidney injury) Is this a current diagnosis for this admission?: Yes Plan: Chronic renal failure. History of end-stage renal disease. Nephrology is consulted; receiving scheduled hemodialysis. Spoke w/ Dr. Rush, patient will require chronic dialysis following discharge. Monitor volume status. Monitor electrolytes and replace as needed. Mccall in place for strict I&Os (4) Ascites Qualifiers: Ascites type: due to alcoholic cirrhosis Qualified Code(s): K70.31 - Alcoholic cirrhosis of liver with ascites Is this a current diagnosis for this admission?: Yes Plan: Continue furosemide and spironolactone. Nephrology consulted for dialysis. Agrees to palliative paracentesis. Pending paracentesis while INR is being corrected. Holding Coumadin; now on Heparin gtt. (5) COPD (chronic obstructive pulmonary disease) Qualifiers: COPD type: unspecified COPD Qualified Code(s): J44.9 - Chronic obstructive pulmonary disease, unspecified Is this a current diagnosis for this admission?: Yes Plan: Does not appear to be acutely exacerbated. No indications for antibiotic or steroid therapy at this time. We will decrease frequency of scheduled nebs. (6) Hydrothorax Is this a current diagnosis for this admission?: Yes Plan: Resolved. History of recurrent pleural effusion. Patient had a chest tube placed on the right chest. Status post chest tube removal on 06/17/2020. s/p pleurodesis. Repeat CT as above. Analgesics as needed. Encourage pulmonary toilet with incentive spirometer, flutter valve, position change. Monitor vitals. (7) Pneumothorax, iatrogenic Is this a current diagnosis for this admission?: Yes Plan: Resolved. Status post pleurodesis by surgery. SPO2 WNL on RA. Repeat chest x-ray shows resolution of pneumothorax. (8) CHF (congestive heart failure) Qualifiers: Heart failure type: combined systolic and diastolic Heart failure chronicity: chronic Qualified Code(s): I50.42 - Chronic combined systolic (congestive) and diastolic (congestive) heart failure Is this a current diagnosis for this admission?: Yes Plan: Acutely exacerbated on admission. proBNP 16,800 on admission. (06/07/2020) 2D echo ejection fraction 25 to 30% with moderate pulmonary hypertension. Mechanical mitral valve.Per previous physician Continue cardiac diet, beta-blockers, Aldactone, furosemide. Cardiology previously consulted; have signed off. Reconsult as necessary and at time of discharge to arrange for LifeVest. (9) Atrial fibrillation Qualifiers: Atrial fibrillation type: longstanding persistent Qualified Code(s): I48.11 - Longstanding persistent atrial fibrillation Is this a current diagnosis for this admission?: Yes Plan: Sinus rhythm. Rate controlled. Was initially on heparin drip and transitioned to Coumadin. INR supratherapeutic; 5.15-> 3.91-> 2.05 Continue to monitor on telemetry. Continue beta-blockers Coumadin resumed; pharmacy to dose. Will bridge w/ Lovenox. Cardiology previous consulted; have signed off. Reconsult as needed. (10) Mechanical heart valve present Is this a current diagnosis for this admission?: Yes Plan: History of aortic stenosis status post mechanical valve placement on Saturday patient hospitalization was complicated by PEA and remained in hospital for 3 to 4 months and [facility]. As per recent echo mechanical valve functioning properly. Anticoagulated with Coumadin. Goal of INR 2.5-3.5. (11) Hypoglycemia Is this a current diagnosis for this admission?: Yes Plan: Resolved. Hemoglobin A1c 5.1. Patient was been n.p.o. for several days due to small bowel obstruction. - Time Time Spent with patient: 25-34 minutes Medications reviewed and adjusted accordingly: Yes Anticipated Discharge Disposition: [facility] Anticipated Discharge Timeframe: when bed available
[2020-06-30] MEDS ORDERED: IPRATROPIUM/ALBUTEROL 0.5-2.5 MG/3 ML AMPUL NEB PRN (19:03)
[2020-06-30] MEDS ORDERED: IPRATROPIUM/ALBUTEROL 0.5-2.5 MG/3 ML AMPUL NEB SCH (20:00)
[2020-06-30] MEDS: PHARMACY COMMUNICATION ORDER MC SCH (21:54)
[2020-06-30] MEDS: ATORVASTATIN CALCIUM 40 MG TABLET PO SCH (21:54)
[2020-07-01] MEDS: IPRATROPIUM/ALBUTEROL 0.5-2.5 MG/3 ML AMPUL NEB SCH ×4 (01:38→20:50)
[2020-07-01] MEDS ORDERED: HEPARIN SOD (PORCINE) 1,000 UNIT/ML 10 ML VIAL IV PRN (05:00)
[2020-07-01] MEDS ORDERED: NORMAL SALINE 1000 ML 1,000 ML IV PRN (05:00)
[2020-07-01] MEDS: PANTOPRAZOLE SODIUM 40 MG TABLET.DR PO SCH ×2 (05:46→17:56)
[2020-07-01] MEDS: MIDODRINE HCL 5 MG TABLET PO SCH ×3 (05:46→22:19)
[2020-07-01 06:27] LABS: ABSOLUTE BASOPHILS # (AUTO) 0.1 10^3/uL (0.0-0.2); ABSOLUTE LYMPHOCYTES (AUTO) 0.5 10^3/uL (0.5-4.7); ABSOLUTE MONOCYTES (AUTO) 0.6 10^3/uL (0.1-1.4); ABSOLUTE NEUT (AUTO) 7.9 10^3/uL (1.7-8.2); BASOPHILS % (AUTO) 1.1 % (0-2); EOSINOPHILS % (AUTO) 0.2 % (0-6); HEMATOCRIT 38.4 % (37.9-51.0); HEMOGLOBIN 12.8 g/dL (13.5-17.0); LYMPHOCYTES % (AUTO) 5.7 % (13-45); MEAN CORPUSCULAR HEMOGLOBIN 28.4 pg (27.0-33.4); MEAN CORPUSCULAR HGB CONC 33.3 g/dL (32.0-36.0); MEAN CORPUSCULAR VOLUME 85 fl (80-97); MONOCYTES % (AUTO) 6.5 % (3-13); PLATELET COUNT 258 10^3/uL (150-450); RED CELL DISTRIBUTION WIDTH 19.5 % (11.5-14.0); SEGMENTED NEUTROPHILS % (AUTO) 86.5 % (42-78); TOTAL CELLS COUNTED % (AUTO) 100 %; WHITE BLOOD COUNT 9.1 10^3/uL (4.0-10.5)
[2020-07-01] MEDS: HEPARIN SOD (PORCINE) 1,000 UNIT/ML 10 ML VIAL IV PRN ×2 (06:45→22:21)
[2020-07-01 06:50] LABS: ANION GAP 9 (5-19); BLOOD UREA NITROGEN 23 mg/dL (7-20); CALCIUM 8.8 mg/dL (8.4-10.2); CARBON DIOXIDE 24 mmol/L (22-30); CHLORIDE 93 mmol/L (98-107); GLUCOSE 98 mg/dL (75-110); POTASSIUM 4.9 mmol/L (3.6-5.0)
[2020-07-01 08:21] LABS: INTERNATIONAL RATION (INR) 1.82; PROTHROMBIN TIME 21.2 SEC (11.4-15.4)
--- NOTE | 2020-07-01 17:44 | PDOC PROGRESS REPORT ---
Subjective Progress Note for:: 07/01/20 Subjective:: Pavel Lepe 59-year-old male past medical history of CHF ejection fraction of 20 to 25%, status post leadless permanent pacemaker, atrial fibrillation on Coumadin, recurrent pleural effusion and pneumothorax, mitral valve replacement at [place] which was complicated patient had to stay in the hospital for 4 months. Postoperatively patient had a PEA cardiac arrest and had renal failure and was discharged on hemodialysis was brought to ED by EMS after being found unresponsive and noted to be in V. tach, was given a shock of 100 J successful. 06/29/2020. This morning patient was noted to be very tachycardic and short of breath while receiving hemodialysis, was given 1 dose of IV metoprolol which helped her heart rate, respiratory symptoms also improved post hemodialysis, patient is tolerating some p.o. feeds, passing flatus and having small bowel movements, still short of breath and distended abdomen, abdomen hypoactive, NG tube is out, denies any fever, chills, nausea, abdominal pain or any urinary symptoms. Patient is pending paracentesis and thoracentesis by radiology however patient INR still too high. Currently on heparin drip. 06/30/2020. No acute events overnight. Patient still complaining of shortness of breath however chest pain has resolved, troponins trending down, and Dr. Garcia packing and final assembly supervisor has seen patient and as per her note patient is not a candidate for any cardiac intervention due to multiple underlying comorbidities, patient denies any nausea, vomiting, diarrhea, constipation. Denies any fever. 07/01/2020. Saw patient this evening, he is just back from radiology after undergoing paracentesis and thoracentesis, stating that he is very hungry and asking for food, abdominal distention of improved and his shortness of breath also improving, patient denies any chest pain, nausea, vomiting, diarrhea. Alert and oriented x3. Reason For Visit: V TACHYCARDIA Physical Exam Vital Signs: Temp Pulse Resp BP Pulse Ox 97.4 F 87 15 97/75 L 97 07/01/20 07:49 07/01/20 14:02 07/01/20 14:02 07/01/20 07:49 07/01/20 07:57 Intake & Output 06/30/20 07/01/20 07/02/20 06:59 06:59 06:59 Intake Total 1420 1322 236 Output Total 3600 375 Balance -2180 947 236 Weight 52.4 kg 57.1 kg General appearance: PRESENT: no acute distress, well-developed, well-nourished Head exam: PRESENT: atraumatic, normocephalic Respiratory exam: PRESENT: clear to auscultation [place], decreased breath sounds. ABSENT: rales, rhonchi, wheezes Cardiovascular exam: PRESENT: RRR. ABSENT: diastolic murmur, rubs, systolic murmur GI/Abdominal exam: PRESENT: normal bowel sounds, soft. ABSENT: distended, guarding, mass, organolmegaly, rebound, tenderness Extremities exam: PRESENT: full ROM. ABSENT: calf tenderness, clubbing, pedal edema Neurological exam: PRESENT: alert, awake, oriented to person, oriented to place, oriented to time, oriented to situation, CN II-XII grossly intact. ABSENT: motor sensory deficit Results Laboratory Results: 07/01/20 05:58 07/01/20 05:58 07/01/20 07/01/20 05:58 05:58 WBC 9.1 RBC 4.50 Hgb 12.8 L Hct 38.4 MCV 85 MCH 28.4 MCHC 33.3 RDW 19.5 H Plt Count 258 Seg Neutrophils % 86.5 H Sodium 126.3 L Potassium 4.9 Chloride 93 L Carbon Dioxide 24 Anion Gap 9 BUN 23 H Creatinine 1.52 H Est GFR ( Amer) 57 L Glucose 98 Calcium 8.8 06/07/20 06/07/20 06/07/20 12:24 12:24 15:08 Creatine Kinase 34 L CK-MB (CK-2) Troponin I 0.035 0.041 NT-Pro-B Natriuret Pep 06/07/20 06/07/20 06/08/20 16:45 22:01 05:25 Creatine Kinase 35 L 40 L 35 L CK-MB (CK-2) Troponin I NT-Pro-B Natriuret Pep 06/08/20 06/29/20 06/29/20 05:25 07:30 07:30 Creatine Kinase 27 L CK-MB (CK-2) 1.04 Troponin I 0.028 NT-Pro-B Natriuret Pep 84187 H 06/29/20 06/29/20 06/29/20 15:11 15:11 20:37 Creatine Kinase 39 L CK-MB (CK-2) 2.04 Troponin I 0.142 0.166 NT-Pro-B Natriuret Pep 06/30/20 05:00 Creatine Kinase CK-MB (CK-2) Troponin I 0.119 NT-Pro-B Natriuret Pep Impressions: Head CT 06/07/20 13:02 IMPRESSION: Stable CT of the brain with bifrontal encephalomalacia. No acute intracranial event. EVIDENCE OF ACUTE STROKE: NO. Thoracentesis Ultrasound 06/08/20 00:00 IMPRESSION: SUCCESSFUL THORACENTESIS AND CHEST TUBE PLACEMENT USING ULTRASOUND GUIDANCE. Abdomen/Pelvis CT 06/17/20 00:00 IMPRESSION: 1. Small bowel obstruction with transition point in the left mid abdomen. This may be a high-grade partial obstruction. Distal small bowel and colon are decompressed. 2. Marked urinary bladder distention, suggestive of bladder outlet obstruction. Clinical correlation is recommended. 3. Loculated right hydropneumothorax and small left pleural effusion, not significantly changed. Compressive atelectasis at the lung bases. 4. Moderate ascites, slightly decreased from previous examination. 5. Mildly nodular contour of the liver, nonspecific however could indicate underlying hepatic cirrhosis. Clinical correlation is with recommended. 6. Diffuse subcutaneous edema, suggestive of fluid overload. 7. Colonic diverticulosis without evidence of diverticulitis. KUB X-Ray 06/22/20 00:00 IMPRESSION: Partial small bowel obstruction Chest CT 06/25/20 00:00 IMPRESSION: Loculated right hydropneumothorax which appears similar at the right lung base from the abdominal CT dated 06/17/2020. Slight interval increase in left pleural effusion. Moderate ascites with a similar nonspecific nodular hepatic contour and slight heterogeneous hepatic attenuation. Chest X-Ray 06/29/20 00:00 IMPRESSION: Stable radiographic appearance of the chest. Assessment and Plan - Diagnosis (1) Small bowel obstruction Is this a current diagnosis for this admission?: Yes Plan: Resolved. Passing flatus, having small bowel meds. Tolerating clear liquids. CT abdomen positive for high-grade partial obstruction on CT with a transition point in the left mid abdomen. KUB shows persistent mildly dilated loops of small bowel to the left of midline. Gas and fecal material in the rectum. KUB shows persistent small bowel obstruction. NG tube discontinued. Advance to soft/low residue liquids. Continue Colace and MiraLax daily. Monitor electrolytes and volume status. (2) Ventricular tachyarrhythmia Is this a current diagnosis for this admission?: Yes Plan: Sinus rhythm. On beta-blockers. Was noticed to have wide-complex tachycardia at the rate of 220 reported by EMS, status post 100 J shock. As per cardiology note patient is a will require implantable cardioverter defibrillator however he is not a candidate given his multiorgan failure and nutritional status. Cardiology consulted. Recommendation at this time is medical management and optimizing electrolytes. Reconsult cardiology at time of discharge. (3) DEMETRIUS (acute kidney injury) Is this a current diagnosis for this admission?: Yes Plan: Chronic renal failure. History of end-stage renal disease. Nephrology is consulted; receiving scheduled hemodialysis. Spoke w/ Dr. Rush, patient will require chronic dialysis following discharge. Monitor volume status. Monitor electrolytes and replace as needed. Mccall in place for strict I&Os (4) Ascites Qualifiers: Ascites type: due to alcoholic cirrhosis Qualified Code(s): K70.31 - Alcoholic cirrhosis of liver with ascites Is this a current diagnosis for this admission?: Yes Plan: Continue furosemide and spironolactone. Nephrology consulted for dialysis. Agrees to palliative paracentesis. Status post paracentesis on 07/01/2020. Coumadin, continue heparin bridge to Coumadin. (5) COPD (chronic obstructive pulmonary disease) Qualifiers: COPD type: unspecified COPD Qualified Code(s): J44.9 - Chronic obstructive pulmonary disease, unspecified Is this a current diagnosis for this admission?: Yes Plan: Does not appear to be acutely exacerbated. No indications for antibiotic or steroid therapy at this time. We will decrease frequency of scheduled nebs. (6) Hydrothorax Is this a current diagnosis for this admission?: Yes Plan: Resolved. History of recurrent pleural effusion. Patient had a chest tube placed on the right chest. Status post chest tube removal on 06/17/2020. s/p pleurodesis. Repeat CT as above. Analgesics as needed. Encourage pulmonary toilet with incentive spirometer, flutter valve, position change. Monitor vitals. (7) Pneumothorax, iatrogenic Is this a current diagnosis for this admission?: Yes Plan: Resolved. Status post pleurodesis by surgery. SPO2 WNL on RA. Repeat chest x-ray shows resolution of pneumothorax. (8) CHF (congestive heart failure) Qualifiers: Heart failure type: combined systolic and diastolic Heart failure chronicity: chronic Qualified Code(s): I50.42 - Chronic combined systolic (congestive) and diastolic (congestive) heart failure Is this a current diagnosis for this admission?: Yes Plan: Acutely exacerbated on admission. proBNP 16,800 on admission. (06/07/2020) 2D echo ejection fraction 25 to 30% with moderate pulmonary hypertension. Mechanical mitral valve.Per previous physician Continue cardiac diet, beta-blockers, Aldactone, furosemide. Cardiology previously consulted; have signed off. Reconsult as necessary and at time of discharge to arrange for LifeVest. (9) Atrial fibrillation Qualifiers: Atrial fibrillation type: longstanding persistent Qualified Code(s): I48.11 - Longstanding persistent atrial fibrillation Is this a current diagnosis for this admission?: Yes Plan: Sinus rhythm. Rate controlled. Was initially on heparin drip and transitioned to Coumadin. INR supratherapeutic; 5.15-> 3.91-> 2.05 Continue to monitor on telemetry. Continue beta-blockers Coumadin resumed; pharmacy to dose. Will bridge w/ Lovenox. Cardiology previous consulted; have signed off. Reconsult as needed. (10) Mechanical heart valve present Is this a current diagnosis for this admission?: Yes Plan: History of aortic stenosis status post mechanical valve placement on Saturday patient hospitalization was complicated by PEA and remained in hospital for 3 to 4 months and [facility]. As per recent echo mechanical valve functioning properly. Anticoagulated with Coumadin. Goal of INR 2.5-3.5. (11) Hypoglycemia Is this a current diagnosis for this admission?: Yes Plan: Resolved. Hemoglobin A1c 5.1. Patient was been n.p.o. for several days due to small bowel obstruction. - Time Time Spent with patient: 25-34 minutes Medications reviewed and adjusted accordingly: Yes Anticipated Discharge Disposition: Long-Term Care Facility Anticipated Discharge Timeframe: within 72 hours
[2020-07-01] MEDS: METOPROLOL TARTRATE 50 MG TABLET PO SCH ×2 (17:45→22:20)
[2020-07-01] MEDS: ASPIRIN 81 MG TABLET, CHEWABLE PO SCH (17:46)
[2020-07-01] MEDS: DOCUSATE SODIUM 100 MG CAPSULE PO SCH ×2 (17:46→17:56)
[2020-07-01] MEDS: SPIRONOLACTONE 25 MG TABLET PO SCH (17:47)
[2020-07-01] MEDS: LIDOCAINE 5% (700 MG) TRANSDERMAL ADH..PATCH TP SCH (17:47)
[2020-07-01] MEDS: POLYETHYLENE GLYCOL 3350 POWDER 17 GM/1 PACKET PO SCH (17:48)
[2020-07-01] MEDS: BISACODYL 10 MG SUPP.RECT PR SCH (17:48)
[2020-07-01] MEDS: FLUTICASONE NASAL SPRAY 50 MCG/SPRY 120 SPRAY/16 GM NASL SCH (17:48)
[2020-07-01 18:04] LABS: FLUID TYPE PLEURAL
[2020-07-01 18:06] LABS: FLUID APPEARANCE CLEAR; FLUID COLOR YELLOW
[2020-07-01 18:07] LABS: FLUID VISCOSITY LIQUID
[2020-07-01 18:09] LABS: FLUID SOURCE LUNG
[2020-07-01 19:41] LABS: HEMATOCRIT 38.5 % (37.9-51.0); HEMOGLOBIN 12.8 g/dL (13.5-17.0); MEAN CORPUSCULAR HEMOGLOBIN 28.3 pg (27.0-33.4); MEAN CORPUSCULAR HGB CONC 33.3 g/dL (32.0-36.0); MEAN CORPUSCULAR VOLUME 85 fl (80-97); PLATELET COUNT 216 10^3/uL (150-450); RED BLOOD COUNT 4.53 10^6/uL (4.35-5.55); RED CELL DISTRIBUTION WIDTH 19.4 % (11.5-14.0); WHITE BLOOD COUNT 8.2 10^3/uL (4.0-10.5)
[2020-07-01] MEDS: ATORVASTATIN CALCIUM 40 MG TABLET PO SCH (22:20)
[2020-07-01] MEDS: WARFARIN SODIUM 3 MG TABLET PO SCH (22:20)
--- NOTE | 2020-07-01 22:25 | PDOC PROGRESS REPORT ---
Subjective Progress Note for:: 07/01/20 Subjective:: I am seeing the patient during dialysis last afternoon. He has no new complaints. He made about 375 mL of urine for the last 24 hours. Blood pressure continues to be relatively low for acceptable. He is tolerating dialysis. Reason For Visit: V TACHYCARDIA Physical Exam Vital Signs: Temp Pulse Resp BP Pulse Ox 97.4 F 82 18 97/75 L 97 07/01/20 07:49 07/01/20 07:57 07/01/20 07:57 07/01/20 07:49 07/01/20 07:57 Intake & Output 06/30/20 07/01/20 07/02/20 06:59 06:59 06:59 Intake Total 1420 1322 Output Total 3600 375 Balance -2180 947 Weight 52.4 kg 57.1 kg Vitals during dialysis: Blood pressure 102/81, heart rate of 85, blood flow rate of 250 mL/min and dialysate flow rate of 600 mL/min. Exam: General appearance: PRESENT: no acute distress, cooperative, well-developed, well-nourished Head exam: PRESENT: atraumatic, normocephalic Eye exam: PRESENT: conjunctiva pink, PERRLA. ABSENT: scleral icterus Neck exam: ABSENT: JVD Respiratory exam: PRESENT: Diminished breath sounds. ABSENT: crackles, rales, rhonchi, unlabored, wheezes Cardiovascular exam: PRESENT: Irregular rate rhythm -+S1, +S2. ABSENT: diastolic murmur, systolic murmur GI/Abdominal exam: PRESENT: normal bowel sounds, soft. ABSENT: guarding, mass, tenderness Extremities exam: Grade 1 edema, slightly improved Neurological exam: PRESENT: alert, awake, oriented to person, place and time. Skin exam: PRESENT: dry, warm, Cardiovascular exam: PRESENT: +S1, +S2 GI/Abdominal exam: PRESENT: ascites, distended, normal bowel sounds, soft. ABSENT: firm, guarding, organomegaly Results Laboratory Results: 07/01/20 05:58 07/01/20 05:58 07/01/20 07/01/20 05:58 05:58 WBC 9.1 RBC 4.50 Hgb 12.8 L Hct 38.4 MCV 85 MCH 28.4 MCHC 33.3 RDW 19.5 H Plt Count 258 Seg Neutrophils % 86.5 H Sodium 126.3 L Potassium 4.9 Chloride 93 L Carbon Dioxide 24 Anion Gap 9 BUN 23 H Creatinine 1.52 H Est GFR ( Amer) 57 L Glucose 98 Calcium 8.8 06/07/20 06/07/20 06/07/20 12:24 12:24 15:08 Creatine Kinase 34 L CK-MB (CK-2) Troponin I 0.035 0.041 NT-Pro-B Natriuret Pep 06/07/20 06/07/20 06/08/20 16:45 22:01 05:25 Creatine Kinase 35 L 40 L 35 L CK-MB (CK-2) Troponin I NT-Pro-B Natriuret Pep 06/08/20 06/29/20 06/29/20 05:25 07:30 07:30 Creatine Kinase 27 L CK-MB (CK-2) 1.04 Troponin I 0.028 NT-Pro-B Natriuret Pep 26791 H 06/29/20 06/29/20 06/29/20 15:11 15:11 20:37 Creatine Kinase 39 L CK-MB (CK-2) 2.04 Troponin I 0.142 0.166 NT-Pro-B Natriuret Pep 06/30/20 05:00 Creatine Kinase CK-MB (CK-2) Troponin I 0.119 NT-Pro-B Natriuret Pep Impressions: Head CT 06/07/20 13:02 IMPRESSION: Stable CT of the brain with bifrontal encephalomalacia. No acute intracranial event. EVIDENCE OF ACUTE STROKE: NO. Thoracentesis Ultrasound 06/08/20 00:00 IMPRESSION: SUCCESSFUL THORACENTESIS AND CHEST TUBE PLACEMENT USING ULTRASOUND GUIDANCE. Abdomen/Pelvis CT 06/17/20 00:00 IMPRESSION: 1. Small bowel obstruction with transition point in the left mid abdomen. This may be a high-grade partial obstruction. Distal small bowel and colon are decompressed. 2. Marked urinary bladder distention, suggestive of bladder outlet obstruction. Clinical correlation is recommended. 3. Loculated right hydropneumothorax and small left pleural effusion, not significantly changed. Compressive atelectasis at the lung bases. 4. Moderate ascites, slightly decreased from previous examination. 5. Mildly nodular contour of the liver, nonspecific however could indicate underlying hepatic cirrhosis. Clinical correlation is with recommended. 6. Diffuse subcutaneous edema, suggestive of fluid overload. 7. Colonic diverticulosis without evidence of diverticulitis. KUB X-Ray 06/22/20 00:00 IMPRESSION: Partial small bowel obstruction Chest CT 06/25/20 00:00 IMPRESSION: Loculated right hydropneumothorax which appears similar at the right lung base from the abdominal CT dated 06/17/2020. Slight interval increase in left pleural effusion. Moderate ascites with a similar nonspecific nodular hepatic contour and slight heterogeneous hepatic attenuation. Chest X-Ray 06/29/20 00:00 IMPRESSION: Stable radiographic appearance of the chest. Assessment & Plan - Diagnosis (1) ESRD (end stage renal disease) on dialysis Is this a current diagnosis for this admission?: Yes Plan: We will do dialysis today for 2.5 hours, using the patient's PermCath, with 2 potassium bath, blood flow rate of 250 mL per minute, dialysate flow rate of 600 mL per minute, ultrafiltration 1.5-2LL as tolerated , no heparin and no Procrit. Patient is being closely monitored throughout dialysis treatment especially with hypotension. Patient's urine output remains to be very minimal at around 400 mL despite having Mccall catheter due to finding of bladder outlet obstruction on CT scan. His creatinine has decreased but I think moving forward, with all his other comorbidities and episodes of fluid overload he is better off to stay on dialysis chronically to help manage volume. We will have case management to arrange outpatient chronic dialysis treatment in anticipation of the patient being discharged. (2) Bladder outlet obstruction Is this a current diagnosis for this admission?: Yes Plan: Mccall catheter in place currently. Urine output remains minimal around 300 to 600 mL on furosemide. (3) Small bowel obstruction Is this a current diagnosis for this admission?: Yes Plan: Resolved. (4) Pleural effusion Is this a current diagnosis for this admission?: Yes Plan: Status post thoracentesis, 06/08 with initial chest tube placement. Chest tube placement revised with pleurodesis on Wednesday 06/13. Chest tube removed. 06/17. Chest CT on June 25 showed persistent loculated right hydropneumothorax. Repeat chest x-ray today was unchanged. (5) CHF (congestive heart failure) Qualifiers: Heart failure type: combined systolic and diastolic Heart failure chronicity: chronic Qualified Code(s): I50.42 - Chronic combined systolic (congestive) and diastolic (congestive) heart failure Is this a current diagnosis for this admission?: Yes Plan: EF of 25 to 30% with moderately reduced right ventricular systolic function. Patient has cardiomyopathy. Cardiology on board. Recommendation includes placement of implantable defibrillator but uncertain if the patient can tolerate the procedure. (6) Ventricular tachyarrhythmia Is this a current diagnosis for this admission?: Yes Plan: Per cardiology. (7) Hypotension Qualifiers: Hypotension type: idiopathic hypotension Qualified Code(s): I95.0 - Idiopathic hypotension Is this a current diagnosis for this admission?: Yes Plan: Likely secondary to poor cardiac function and cardiomyopathy. Currently on midodrine. Adrenal insufficiency has been previously ruled out during previous admission. (8) Hyponatremia Is this a current diagnosis for this admission?: Yes Plan: Chronic and stable. Secondary to hypervolemic state with CHF and ESRD. (9) Atrial fibrillation Qualifiers: Atrial fibrillation type: longstanding persistent Qualified Code(s): I48.11 - Longstanding persistent atrial fibrillation Is this a current diagnosis for this admission?: Yes Plan: On anticoagulation. Rate controlled (10) Ascites Qualifiers: Ascites type: due to alcoholic cirrhosis Qualified Code(s): K70.31 - Alcoholic cirrhosis of liver with ascites Is this a current diagnosis for this admission?: Yes Plan: Patient has agreed for paracentesis. Discussed with Dr. Ren. Warfarin is now on hold in preparation for paracentesis. (11) Leukocytosis Qualifiers: Leukocytosis type: unspecified Qualified Code(s): D72.829 - Elevated white blood cell count, unspecified Is this a current diagnosis for this admission?: Yes Plan: Resolved. (12) Pneumothorax, iatrogenic Is this a current diagnosis for this admission?: Yes Plan: Post chest tube placement. (13) H/O mitral valve replacement with mechanical valve Is this a current diagnosis for this admission?: Yes Plan: Currently on warfarin. - Time Time with patient: 15-25 minutes
[2020-07-01] MEDS: PHARMACY COMMUNICATION ORDER MC SCH (23:03)
[2020-07-02] MEDS: IPRATROPIUM/ALBUTEROL 0.5-2.5 MG/3 ML AMPUL NEB SCH ×2 (02:31→08:01)
[2020-07-02 04:49] LABS: HEMATOCRIT 38.2 % (37.9-51.0); HEMOGLOBIN 12.5 g/dL (13.5-17.0); MEAN CORPUSCULAR HGB CONC 32.8 g/dL (32.0-36.0); MEAN CORPUSCULAR VOLUME 85 fl (80-97); PLATELET COUNT 198 10^3/uL (150-450); RED BLOOD COUNT 4.48 10^6/uL (4.35-5.55); WHITE BLOOD COUNT 8.9 10^3/uL (4.0-10.5)
[2020-07-02 04:57] LABS: INTERNATIONAL RATION (INR) 1.62; PROTHROMBIN TIME 19.4 SEC (11.4-15.4)
[2020-07-02 05:36] LABS: ALBUMIN 2.4 g/dL (3.5-5.0); ALKALINE PHOSPHATASE 128 U/L (38-126); ANION GAP 5 (5-19); ASPARTATE AMINO TRANSFERASE 21 U/L (17-59); BILIRUBIN,DIRECT 0.3 mg/dL (0.0-0.4); BLOOD UREA NITROGEN 20 mg/dL (7-20); CALCIUM 8.5 mg/dL (8.4-10.2); CARBON DIOXIDE 26 mmol/L (22-30); CHLORIDE 95 mmol/L (98-107); GLUCOSE 100 mg/dL (75-110); POTASSIUM 4.9 mmol/L (3.6-5.0); TOTAL PROTEIN 5.6 g/dL (6.3-8.2)
[2020-07-02 05:52] LABS: PARTIAL THROMBOPLASTIN TIME > 235.0 SEC (23.5-35.8)
[2020-07-02] MEDS: MIDODRINE HCL 5 MG TABLET PO SCH ×3 (06:52→23:31)
[2020-07-02] MEDS: PANTOPRAZOLE SODIUM 40 MG TABLET.DR PO SCH ×2 (06:52→16:16)
[2020-07-02] MEDS: METOPROLOL TARTRATE 50 MG TABLET PO SCH ×2 (10:50→23:30)
[2020-07-02] MEDS: ASPIRIN 81 MG TABLET, CHEWABLE PO SCH (10:50)
[2020-07-02] MEDS: SPIRONOLACTONE 25 MG TABLET PO SCH (10:50)
[2020-07-02] MEDS: FUROSEMIDE 20 MG TABLET PO SCH (10:52)
[2020-07-02] MEDS: POLYETHYLENE GLYCOL 3350 POWDER 17 GM/1 PACKET PO SCH (10:54)
[2020-07-02] MEDS: FLUTICASONE NASAL SPRAY 50 MCG/SPRY 120 SPRAY/16 GM NASL SCH (10:55)
[2020-07-02] MEDS: BISACODYL 10 MG SUPP.RECT PR SCH (10:55)
[2020-07-02] MEDS: DOCUSATE SODIUM 100 MG CAPSULE PO SCH ×2 (10:55→18:20)
[2020-07-02] MEDS: LIDOCAINE 5% (700 MG) TRANSDERMAL ADH..PATCH TP SCH (11:00)
--- NOTE | 2020-07-02 11:34 | RADIOLOGY REPORT (SQ) ---
EXAM DESCRIPTION: U/S ABD PARACENTESIS IMAGES COMPLETED DATE/TIME: 07/01/2020 4:49 pm REASON FOR STUDY: ascites; palliative COMPARISON: None. LIMITATIONS: None. PROCEDURE: Procedure, risks, benefit, and alternative explained to patient who then gave written con sent. The right lower abdominal wall marked using ultrasound guidance. A time-out was called for co rrect marking verification. Abdomen prepped and draped using sterile technique. Local anesthesia ach ieved using 2.5 ml of 1% lidocaine injection. A 6fr Weel-[id number]-[id number] set was introduced into the audi toneal cavity. Fluid was drained. The catheter was removed and entry site was covered with sterile bandage. No immediate complications noted. Images acquired during the procedure were stored on PACS. FINDINGS: ENTRY SITE: right lower quadrant. FLUID VOLUME: 2800 cc FLUID ANALYSIS: Straw OTHER: Fluid sent to the lab for testing. IMPRESSION: SUCCESSFUL ULTRASOUND GUIDED PARACENTESIS. COMMENT: Patient medication list reviewed:Yes- Quality ID# [id number]:Eligible professional attests to docu menting in the medical record they obtained, updated, or reviewed the patient's current medications. TECHNICAL DOCUMENTATION: JOB ID: [id number] 2010 [employer]- All Rights Reserved Reading location - IP/workstation name: [email or web address]
[2020-07-02] MEDS: IPRATROPIUM/ALBUTEROL 0.5-2.5 MG/3 ML AMPUL NEB PRN (12:00)
[2020-07-02] MEDS ORDERED: LEVALBUTEROL HCL NEB 1.25 MG/3 ML AMPUL NEB PRN ×2 (12:03)
[2020-07-02] MEDS ORDERED: IPRATROPIUM BROMIDE 0.02% NEB 0.5 MG/2.5 ML AMPUL NEB PRN (12:04)
[2020-07-02] MEDS: LORAZEPAM INJ 2 MG/1 ML VIAL IV PRN ×2 (13:19→18:21)
[2020-07-02] MEDS: IPRATROPIUM BROMIDE 0.02% NEB 0.5 MG/2.5 ML AMPUL NEB SCH ×2 (14:13→19:45)
--- NOTE | 2020-07-02 15:13 | PDOC PROGRESS REPORT ---
Subjective Progress Note for:: 07/02/20 Subjective:: Pavel Lepe 59-year-old male past medical history of CHF ejection fraction of 20 to 25%, status post leadless permanent pacemaker, atrial fibrillation on Coumadin, recurrent pleural effusion and pneumothorax, mitral valve replacement at [place] which was complicated patient had to stay in the hospital for 4 months. Postoperatively patient had a PEA cardiac arrest and had renal failure and was discharged on hemodialysis was brought to ED by EMS after being found unresponsive and noted to be in V. tach, was given a shock of 100 J successful. 06/29/2020. This morning patient was noted to be very tachycardic and short of breath while receiving hemodialysis, was given 1 dose of IV metoprolol which helped her heart rate, respiratory symptoms also improved post hemodialysis, patient is tolerating some p.o. feeds, passing flatus and having small bowel movements, still short of breath and distended abdomen, abdomen hypoactive, NG tube is out, denies any fever, chills, nausea, abdominal pain or any urinary symptoms. Patient is pending paracentesis and thoracentesis by radiology however patient INR still too high. Currently on heparin drip. 06/30/2020. No acute events overnight. Patient still complaining of shortness of breath however chest pain has resolved, troponins trending down, and Dr. Garcia auto wheel alignment specialist has seen patient and as per her note patient is not a candidate for any cardiac intervention due to multiple underlying comorbidities, patient denies any nausea, vomiting, diarrhea, constipation. Denies any fever. 07/01/2020. Saw patient this evening, he is just back from radiology after undergoing paracentesis and thoracentesis, stating that he is very hungry and asking for food, abdominal distention of improved and his shortness of breath also improving, patient denies any chest pain, nausea, vomiting, diarrhea. Alert and oriented x3. 07/02/2020. No acute events overnight. This morning patient was complaining of pain, received 1 dose of Ativan which helped significantly, patient also mentioning that he is depressed however denies any suicidal or homicidal ideation, patient likes to sit in the recliner, patient is tolerating his p.o. intake, no abdominal pain has resolved, patient having normal bowel and bladder movements. Patient is pending transfer to rehab. Reason For Visit: V TACHYCARDIA Physical Exam Vital Signs: Temp Pulse Resp BP Pulse Ox 97.5 F 87 18 100/76 95 07/02/20 07:47 07/02/20 08:00 07/02/20 08:00 07/02/20 07:47 07/02/20 08:00 Intake & Output 07/01/20 07/02/20 07/03/20 06:59 06:59 06:59 Intake Total 1322 1119 236 Output Total 375 1506 Balance 947 -387 236 Weight 57.1 kg 53.4 kg 53.4 kg General appearance: PRESENT: no acute distress, thin Head exam: PRESENT: atraumatic, normocephalic Respiratory exam: PRESENT: clear to auscultation [place], decreased breath sounds - RL. ABSENT: rales, rhonchi, wheezes Cardiovascular exam: PRESENT: RRR. ABSENT: diastolic murmur, rubs, systolic murmur GI/Abdominal exam: PRESENT: ascites, normal bowel sounds, soft. ABSENT: guarding, mass, organolmegaly, rebound, tenderness Neurological exam: PRESENT: alert, awake, oriented to person, oriented to place, oriented to time, oriented to situation, CN II-XII grossly intact. ABSENT: motor sensory deficit Results Laboratory Results: 07/02/20 04:32 07/02/20 04:32 07/01/20 07/01/20 07/02/20 14:55 19:28 04:32 WBC 8.2 8.9 RBC 4.53 4.48 Hgb 12.8 L 12.5 L Hct 38.5 38.2 MCV 85 85 MCH 28.3 28.0 MCHC 33.3 32.8 RDW 19.4 H 19.0 H Plt Count 216 198 Sodium Potassium Chloride Carbon Dioxide Anion Gap BUN Creatinine Est GFR ( Amer) Glucose Calcium Phosphorus Magnesium Total Bilirubin AST Alkaline Phosphatase Total Protein Albumin Fluid Type PLEURAL Fluid Source LUNG Fluid Color YELLOW Fluid Appearance CLEAR Fluid Viscosity LIQUID Fluid WBC 24 Fluid RBC 610 07/02/20 04:32 WBC RBC Hgb Hct MCV MCH MCHC RDW Plt Count Sodium 126.3 L Potassium 4.9 Chloride 95 L Carbon Dioxide 26 Anion Gap 5 BUN 20 Creatinine 1.32 H Est GFR ( Amer) > 60 Glucose 100 Calcium 8.5 Phosphorus 3.0 Magnesium 2.0 Total Bilirubin 1.0 AST 21 Alkaline Phosphatase 128 H Total Protein 5.6 L Albumin 2.4 L Fluid Type Fluid Source Fluid Color Fluid Appearance Fluid Viscosity Fluid WBC Fluid RBC 06/07/20 06/07/20 06/07/20 12:24 12:24 15:08 Creatine Kinase 34 L CK-MB (CK-2) Troponin I 0.035 0.041 NT-Pro-B Natriuret Pep 06/07/20 06/07/20 06/08/20 16:45 22:01 05:25 Creatine Kinase 35 L 40 L 35 L CK-MB (CK-2) Troponin I NT-Pro-B Natriuret Pep 06/08/20 06/29/20 06/29/20 05:25 07:30 07:30 Creatine Kinase 27 L CK-MB (CK-2) 1.04 Troponin I 0.028 NT-Pro-B Natriuret Pep 72788 H 06/29/20 06/29/20 06/29/20 15:11 15:11 20:37 Creatine Kinase 39 L CK-MB (CK-2) 2.04 Troponin I 0.142 0.166 NT-Pro-B Natriuret Pep 06/30/20 05:00 Creatine Kinase CK-MB (CK-2) Troponin I 0.119 NT-Pro-B Natriuret Pep Impressions: Head CT 06/07/20 13:02 IMPRESSION: Stable CT of the brain with bifrontal encephalomalacia. No acute intracranial event. EVIDENCE OF ACUTE STROKE: NO. Thoracentesis Ultrasound 06/08/20 00:00 IMPRESSION: SUCCESSFUL THORACENTESIS AND CHEST TUBE PLACEMENT USING ULTRASOUND GUIDANCE. Abdomen/Pelvis CT 06/17/20 00:00 IMPRESSION: 1. Small bowel obstruction with transition point in the left mid abdomen. This may be a high-grade partial obstruction. Distal small bowel and colon are decompressed. 2. Marked urinary bladder distention, suggestive of bladder outlet obstruction. Clinical correlation is recommended. 3. Loculated right hydropneumothorax and small left pleural effusion, not significantly changed. Compressive atelectasis at the lung bases. 4. Moderate ascites, slightly decreased from previous examination. 5. Mildly nodular contour of the liver, nonspecific however could indicate underlying hepatic cirrhosis. Clinical correlation is with recommended. 6. Diffuse subcutaneous edema, suggestive of fluid overload. 7. Colonic diverticulosis without evidence of diverticulitis. KUB X-Ray 06/22/20 00:00 IMPRESSION: Partial small bowel obstruction Chest CT 06/25/20 00:00 IMPRESSION: Loculated right hydropneumothorax which appears similar at the right lung base from the abdominal CT dated 06/17/2020. Slight interval increase in left pleural effusion. Moderate ascites with a similar nonspecific nodular hepatic contour and slight heterogeneous hepatic attenuation. Chest X-Ray 06/29/20 00:00 IMPRESSION: Stable radiographic appearance of the chest. Paracentesis Ultrasound 07/01/20 08:26 IMPRESSION: SUCCESSFUL ULTRASOUND GUIDED PARACENTESIS. Assessment and Plan - Diagnosis (1) Small bowel obstruction Is this a current diagnosis for this admission?: Yes Plan: Resolved. Passing flatus, having small bowel meds. Tolerating clear liquids. CT abdomen positive for high-grade partial obstruction on CT with a transition point in the left mid abdomen. KUB shows persistent mildly dilated loops of small bowel to the left of midline. Gas and fecal material in the rectum. KUB shows persistent small bowel obstruction. NG tube discontinued. Advance to soft/low residue liquids. Continue Colace and MiraLax daily. Monitor electrolytes and volume status. (2) Ventricular tachyarrhythmia Is this a current diagnosis for this admission?: Yes Plan: Sinus rhythm. On beta-blockers. Was noticed to have wide-complex tachycardia at the rate of 220 reported by EMS, status post 100 J shock. As per cardiology note patient is a will require implantable cardioverter defibrillator however he is not a candidate given his multiorgan failure and nutritional status. Cardiology consulted. Recommendation at this time is medical management and optimizing electrolytes. Reconsult cardiology at time of discharge. (3) DEMETRIUS (acute kidney injury) Is this a current diagnosis for this admission?: Yes Plan: Chronic renal failure. History of end-stage renal disease. Nephrology is consulted; receiving scheduled hemodialysis. Spoke w/ Dr. Rush, patient will require chronic dialysis following discharge. Monitor volume status. Monitor electrolytes and replace as needed. Mccall in place for strict I&Os (4) Ascites Qualifiers: Ascites type: due to alcoholic cirrhosis Qualified Code(s): K70.31 - Alcoholic cirrhosis of liver with ascites Is this a current diagnosis for this admission?: Yes Plan: Continue furosemide and spironolactone. Nephrology consulted for dialysis. Agrees to palliative paracentesis. Status post paracentesis on 07/01/2020. On heparin being bridged back to Coumadin. (5) COPD (chronic obstructive pulmonary disease) Qualifiers: COPD type: unspecified COPD Qualified Code(s): J44.9 - Chronic obstructive pulmonary disease, unspecified Is this a current diagnosis for this admission?: Yes Plan: Does not appear to be acutely exacerbated. No indications for antibiotic or steroid therapy at this time. We will decrease frequency of scheduled nebs. (6) Hydrothorax Is this a current diagnosis for this admission?: Yes Plan: Resolved. History of recurrent pleural effusion. Patient had a chest tube placed on the right chest. Status post chest tube removal on 06/17/2020. s/p pleurodesis. Repeat CT as above. Analgesics as needed. Encourage pulmonary toilet with incentive spirometer, flutter valve, position change. Monitor vitals. (7) Pneumothorax, iatrogenic Is this a current diagnosis for this admission?: Yes Plan: Resolved. Status post pleurodesis by surgery. SPO2 WNL on RA. Repeat chest x-ray shows resolution of pneumothorax. (8) CHF (congestive heart failure) Qualifiers: Heart failure type: combined systolic and diastolic Heart failure chronicity: chronic Qualified Code(s): I50.42 - Chronic combined systolic (congestive) and diastolic (congestive) heart failure Is this a current diagnosis for this admission?: Yes Plan: Acutely exacerbated on admission. proBNP 16,800 on admission. (06/07/2020) 2D echo ejection fraction 25 to 30% with moderate pulmonary hypertension. Mechanical mitral valve.Per previous physician Continue cardiac diet, beta-blockers, Aldactone, furosemide. Cardiology previously consulted; have signed off. Reconsult as necessary and at time of discharge to arrange for LifeVest. (9) Atrial fibrillation Qualifiers: Atrial fibrillation type: longstanding persistent Qualified Code(s): I48.11 - Longstanding persistent atrial fibrillation Is this a current diagnosis for this admission?: Yes Plan: Sinus rhythm. Rate controlled. Was initially on heparin drip and transitioned to Coumadin. INR supratherapeutic; 5.15-> 3.91-> 2.05 Continue to monitor on telemetry. Continue beta-blockers Coumadin resumed; pharmacy to dose. Will bridge w/ Lovenox. Cardiology previous consulted; have signed off. Reconsult as needed. (10) Mechanical heart valve present Is this a current diagnosis for this admission?: Yes Plan: History of aortic stenosis status post mechanical valve placement on Saturday patient hospitalization was complicated by PEA and remained in hospital for 3 to 4 months and [facility]. As per recent echo mechanical valve functioning properly. Anticoagulated. On heparin bridge to Coumadin. Goal of INR 2.5-3.5. (11) Hypoglycemia Is this a current diagnosis for this admission?: Yes Plan: Resolved. Hemoglobin A1c 5.1. Patient was been n.p.o. for several days due to small bowel obstruction. (12) Depression with anxiety Is this a current diagnosis for this admission?: Yes Plan: Denies any homicidal or suicidal ideation. Will start on Remeron to help him sleep and increase his appetite also treated depression. PRN Ativan. - Time Time Spent with patient: 25-34 minutes Medications reviewed and adjusted accordingly: Yes Anticipated Discharge Disposition: [facility] Anticipated Discharge Timeframe: when bed available
[2020-07-02] MEDS: HEPARIN SODIUM,PORCINE/D5W 25,000 UNIT/250 ML RTUINJ IV PRN (16:24)
[2020-07-02] MEDS ORDERED: MIRTAZAPINE 15 MG TABLET PO SCH (22:00)
[2020-07-02] MEDS: WARFARIN SODIUM 3 MG TABLET PO SCH (23:29)
[2020-07-02] MEDS: ATORVASTATIN CALCIUM 40 MG TABLET PO SCH (23:30)
[2020-07-03] MEDS ORDERED: NORMAL SALINE 1000 ML 1,000 ML IV ONE ×3 (01:50→03:30)
--- NOTE | 2020-07-03 01:54 | Progress Note ---
Provider Note Provider Note: Critical CARE note: 07/03/2020 Critical care start time: 01:17 Critical care issue: Ventricular tachycardia I was called to see the patient he was noted to have ventricular tachycardia on his nurse monitoring. Upon my arrival patient was noted to be in a sustained ventricular tachycardia with a rate of 196 bpm. Patient was noted to be awake and appropriately responsive to his name. Defibrillation pads were placed on the patient and he was connected to the defibrillation monitor device. He was noted to have a palpable pulse and his blood pressure was 96 systolic. He was given an IV bolus dose of amiodarone 150 mg administered over 10 minutes. Just prior to the end of the amiodarone bolus dose administration he converted to a regular rhythm with a rate of 94. He remained easily arousable and verbally responsive throughout the entire course of treatment. His blood pressure after conversion was 80 systolic and a 500 mL bolus dose of normal saline was ordered. An intensive care consultation will be obtained to aid in determining the most appropriate ongoing management for this patient's care if we are unable to obtain an adequate blood pressure on a sustained basis with IV fluids. Patient will be rechecked frequently through remainder of this nocturnal shift. Critical care end time: 01:53 Total critical care time: 28 minutes
[2020-07-03] MEDS ORDERED: AMIODARONE HCL 150 MG in DEXTROSE 5%-WATER 100 ML IV ONE (01:55)
[2020-07-03] MEDS: PHARMACY COMMUNICATION ORDER MC SCH ×2 (04:51→21:06)
[2020-07-03 05:41] LABS: INTERNATIONAL RATION (INR) 1.48; PROTHROMBIN TIME 18.1 SEC (11.4-15.4)
[2020-07-03] MEDS: MIDODRINE HCL 5 MG TABLET PO SCH ×3 (05:52→21:06)
[2020-07-03] MEDS: PANTOPRAZOLE SODIUM 40 MG TABLET.DR PO SCH ×2 (05:52→16:23)
[2020-07-03] MEDS: IPRATROPIUM BROMIDE 0.02% NEB 0.5 MG/2.5 ML AMPUL NEB SCH ×3 (07:46→19:40)
--- NOTE | 2020-07-03 08:22 | EKG REPORT ---
SEVERITY:- ABNORMAL ECG - VENTRICULAR-PACED RHYTHM : Confirmed by: Dandy Pickard MD 03-Jul-2020 08:22:13
[2020-07-03] MEDS: FUROSEMIDE 20 MG TABLET PO SCH (10:46)
[2020-07-03] MEDS: METOPROLOL TARTRATE 50 MG TABLET PO SCH ×2 (10:46→21:03)
[2020-07-03] MEDS: DOCUSATE SODIUM 100 MG CAPSULE PO SCH ×2 (10:47→17:07)
[2020-07-03] MEDS: FLUTICASONE NASAL SPRAY 50 MCG/SPRY 120 SPRAY/16 GM NASL SCH (10:47)
[2020-07-03] MEDS: LIDOCAINE 5% (700 MG) TRANSDERMAL ADH..PATCH TP SCH (10:47)
[2020-07-03] MEDS: SPIRONOLACTONE 25 MG TABLET PO SCH (10:47)
[2020-07-03] MEDS: ASPIRIN 81 MG TABLET, CHEWABLE PO SCH (10:47)
[2020-07-03] MEDS: BISACODYL 10 MG SUPP.RECT PR SCH (10:47)
[2020-07-03] MEDS: POLYETHYLENE GLYCOL 3350 POWDER 17 GM/1 PACKET PO SCH (10:48)
--- NOTE | 2020-07-03 11:34 | RADIOLOGY REPORT (SQ) ---
EXAM DESCRIPTION: CHEST SINGLE VIEW IMAGES COMPLETED DATE/TIME: 07/03/2020 11:24 am REASON FOR STUDY: Change in Status COMPARISON: 06/29/2020 NUMBER OF VIEWS: One view. TECHNIQUE: Single frontal radiographic image of the chest acquired. LIMITATIONS: None. FINDINGS: LUNGS AND PLEURA: Bilateral airspace disease and small effusions are not significantly rey nged. No pneumothorax. MEDIASTINUM AND HEART: Stable heart size and mediastinal structures. SUPPORT DEVICES: Appropriate location without change. BONY STRUCTURES: No acute findings. HARDWARE: None. OTHER: No other significant finding. IMPRESSION: STABLE APPEARANCE OF THE CHEST. SUPPORT DEVICES UNCHANGED. Reading location - IP/workstation name: [email or web address]
[2020-07-03] MEDS ORDERED: AMIODARONE HCL INJ 150 MG/3 ML VIAL IV ONE (11:47)
[2020-07-03] MEDS ORDERED: DEXTROSE 40% GEL 15 GM TUBE PO PRN ×2 (15:59)
[2020-07-03] MEDS ORDERED: DEXTROSE 50%-WATER 25 GM/50 ML DISP.SYRIN IV PRN ×2 (15:59)
[2020-07-03] MEDS ORDERED: GLUCAGON,HUMAN RECOMB 1 MG INJ IM PRN (15:59)
[2020-07-03] MEDS: DEXAMETHASONE SOD PHOS INJ 10 MG/1 ML VIAL IV SCH ×2 (16:23→21:02)
[2020-07-03] MEDS: ZINC SULFATE 220 MG CAPSULE PO SCH (16:24)
[2020-07-03] MEDS: AZITHROMYCIN 500 MG in DEXTROSE 5%-WATER 250 ML IV SCH (16:24)
[2020-07-03] MEDS: CEFTRIAXONE 1 GM/D5W RTU 1 GM/50 ML RTUPB IV SCH (16:28)
[2020-07-03] MEDS: INSULIN LISPRO 100 UNIT/ML 3 ML VIAL SUBCUT SCH ×2 (16:35→21:07)
[2020-07-03] MEDS ORDERED: REMDESIVIR (EUA) 200 MG in NORMAL SALINE 250 ML IV ONE (17:00)
--- NOTE | 2020-07-03 17:04 | PDOC PROGRESS REPORT ---
Subjective Progress Note for:: 07/03/20 Subjective:: Pavel Lepe 59-year-old male past medical history of CHF ejection fraction of 20 to 25%, status post leadless permanent pacemaker, atrial fibrillation on Coumadin, recurrent pleural effusion and pneumothorax, mitral valve replacement at [facility] which was complicated patient had to stay in the hospital for 4 months. Postoperatively patient had a PEA cardiac arrest and had renal failure and was discharged on hemodialysis was brought to ED by EMS after being found unresponsive and noted to be in V. tach, was given a shock of 100 J successful. 06/29/2020. This morning patient was noted to be very tachycardic and short of breath while receiving hemodialysis, was given 1 dose of IV metoprolol which helped her heart rate, respiratory symptoms also improved post hemodialysis, patient is tolerating some p.o. feeds, passing flatus and having small bowel movements, still short of breath and distended abdomen, abdomen hypoactive, NG tube is out, denies any fever, chills, nausea, abdominal pain or any urinary symptoms. Patient is pending paracentesis and thoracentesis by radiology however patient INR still too high. Currently on heparin drip. 06/30/2020. No acute events overnight. Patient still complaining of shortness of breath however chest pain has resolved, troponins trending down, and Dr. Garcia protein scientist has seen patient and as per her note patient is not a candidate for any cardiac intervention due to multiple underlying comorbidities, patient denies any nausea, vomiting, diarrhea, constipation. Denies any fever. 07/01/2020. Saw patient this evening, he is just back from radiology after undergoing paracentesis and thoracentesis, stating that he is very hungry and asking for food, abdominal distention of improved and his shortness of breath also improving, patient denies any chest pain, nausea, vomiting, diarrhea. Alert and oriented x3. 07/02/2020. No acute events overnight. This morning patient was complaining of pain, received 1 dose of Ativan which helped significantly, patient also mentioning that he is depressed however denies any suicidal or homicidal ideation, patient likes to sit in the recliner, patient is tolerating his p.o. intake, no abdominal pain has resolved, patient having normal bowel and bladder movements. Patient is pending transfer to rehab. 07/03/2020. Overnight patient was running V. tach and was a started on amiodarone, V. tach resolved but unfortunately this morning patient was complaining of shortness of breath and anxiety, rapid COVID test came back positive, patient may have likely been exposed during dialysis last Saturday, patient is coughing however denies any fever, chest pain, nausea or vomiting, he still p.o. tolerant and having normal bowel movements. Patient was moved to ICU as there is no room available in COVID unit. Reason For Visit: V TACHYCARDIA Physical Exam Vital Signs: Temp Pulse Resp BP Pulse Ox 97.4 F 87 19 128/93 H 100 07/03/20 16:00 07/03/20 14:27 07/03/20 14:27 07/03/20 11:55 07/03/20 11:55 Intake & Output 07/02/20 07/03/20 07/04/20 06:59 06:59 06:59 Intake Total 1119 1553 Output Total 1506 300 60 Balance -387 1253 -60 Weight 53.4 kg 54.1 kg Results Laboratory Results: 07/02/20 04:32 07/02/20 04:32 07/03/20 12:26 Ferritin Cancelled C-Reactive Protein 71.3 H 06/07/20 06/07/20 06/07/20 12:24 12:24 15:08 Creatine Kinase 34 L CK-MB (CK-2) Troponin I 0.035 0.041 NT-Pro-B Natriuret Pep 06/07/20 06/07/20 06/08/20 16:45 22:01 05:25 Creatine Kinase 35 L 40 L 35 L CK-MB (CK-2) Troponin I NT-Pro-B Natriuret Pep 06/08/20 06/29/20 06/29/20 05:25 07:30 07:30 Creatine Kinase 27 L CK-MB (CK-2) 1.04 Troponin I 0.028 NT-Pro-B Natriuret Pep 17610 H 06/29/20 06/29/20 06/29/20 15:11 15:11 20:37 Creatine Kinase 39 L CK-MB (CK-2) 2.04 Troponin I 0.142 0.166 NT-Pro-B Natriuret Pep 06/30/20 05:00 Creatine Kinase CK-MB (CK-2) Troponin I 0.119 NT-Pro-B Natriuret Pep Impressions: Head CT 06/07/20 13:02 IMPRESSION: Stable CT of the brain with bifrontal encephalomalacia. No acute intracranial event. EVIDENCE OF ACUTE STROKE: NO. Thoracentesis Ultrasound 06/08/20 00:00 IMPRESSION: SUCCESSFUL THORACENTESIS AND CHEST TUBE PLACEMENT USING ULTRASOUND GUIDANCE. Abdomen/Pelvis CT 06/17/20 00:00 IMPRESSION: 1. Small bowel obstruction with transition point in the left mid abdomen. This may be a high-grade partial obstruction. Distal small bowel and colon are decompressed. 2. Marked urinary bladder distention, suggestive of bladder outlet obstruction. Clinical correlation is recommended. 3. Loculated right hydropneumothorax and small left pleural effusion, not significantly changed. Compressive atelectasis at the lung bases. 4. Moderate ascites, slightly decreased from previous examination. 5. Mildly nodular contour of the liver, nonspecific however could indicate underlying hepatic cirrhosis. Clinical correlation is with recommended. 6. Diffuse subcutaneous edema, suggestive of fluid overload. 7. Colonic diverticulosis without evidence of diverticulitis. KUB X-Ray 06/22/20 00:00 IMPRESSION: Partial small bowel obstruction Chest CT 06/25/20 00:00 IMPRESSION: Loculated right hydropneumothorax which appears similar at the right lung base from the abdominal CT dated 06/17/2020. Slight interval increase in left pleural effusion. Moderate ascites with a similar nonspecific nodular hepatic contour and slight heterogeneous hepatic attenuation. Paracentesis Ultrasound 07/01/20 08:26 IMPRESSION: SUCCESSFUL ULTRASOUND GUIDED PARACENTESIS. Chest X-Ray 07/03/20 10:49 IMPRESSION: STABLE APPEARANCE OF THE CHEST. SUPPORT DEVICES UNCHANGED. Assessment and Plan - Diagnosis (1) COVID-19 virus detected Is this a current diagnosis for this admission?: Yes Plan: Short of breath, tachypneic, increasing oxygen requirement from 1.5 to 6 L nasal cannula. Saturating 100%. Repeat CXR stable appearance as per radiologist, but upon my observation there are some new opacities on the left lobe. Elevated CRP and d-dimer. We will start on empiric IV azithromycin, IV ceftriaxone, IV dexamethasone, Remdisivir, p.o. zinc sulfate and p.o. vitamin C. already on heparin being bridged to Coumadin. Patient has had prolonged hospitalization here at [facility] and has extensive underlying comorbidities not sure if patient will do very well with coinfection. Low threshold for intubation. (2) Small bowel obstruction Is this a current diagnosis for this admission?: Yes Plan: Resolved. Passing flatus, having small bowel meds. Tolerating clear liquids. CT abdomen positive for high-grade partial obstruction on CT with a transition point in the left mid abdomen. KUB shows persistent mildly dilated loops of small bowel to the left of midline. Gas and fecal material in the rectum. KUB shows persistent small bowel obstruction. NG tube discontinued. Advance to soft/low residue liquids. Continue Colace and MiraLax daily. Monitor electrolytes and volume status. (3) Ventricular tachyarrhythmia Is this a current diagnosis for this admission?: Yes Plan: Sinus rhythm. On beta-blockers. 07/03/2020 patient again went into V. tach and was a started on amiodarone. Currently sinus rhythm. On admission was noticed to have wide-complex tachycardia at the rate of 220 reported by EMS, status post 100 J shock. As per cardiology note patient is a will require implantable cardioverter defibrillator however he is not a candidate given his multiorgan failure and nutritional status. Cardiology consulted. Recommendation at this time is medical management and optimizing electrolytes. Reconsult cardiology at time of discharge. (4) DEMETRIUS (acute kidney injury) Is this a current diagnosis for this admission?: Yes Plan: Chronic renal failure. History of end-stage renal disease. Nephrology is consulted; receiving scheduled hemodialysis. Spoke w/ Dr. Rush, patient will require chronic dialysis following discharge. Monitor volume status. Monitor electrolytes and replace as needed. Mccall in place for strict I&Os (5) Ascites Qualifiers: Ascites type: due to alcoholic cirrhosis Qualified Code(s): K70.31 - Alcoholic cirrhosis of liver with ascites Is this a current diagnosis for this admission?: Yes Plan: Continue furosemide and spironolactone. Nephrology consulted for dialysis. Agrees to palliative paracentesis. Status post paracentesis on 07/01/2020. On heparin being bridged back to Coumadin. (6) COPD (chronic obstructive pulmonary disease) Qualifiers: COPD type: unspecified COPD Qualified Code(s): J44.9 - Chronic obstructive pulmonary disease, unspecified Is this a current diagnosis for this admission?: Yes Plan: Does not appear to be acutely exacerbated. No indications for antibiotic or steroid therapy at this time. We will decrease frequency of scheduled nebs. (7) Hydrothorax Is this a current diagnosis for this admission?: Yes Plan: Resolved. History of recurrent pleural effusion. Patient had a chest tube placed on the right chest. Status post chest tube removal on 06/17/2020. s/p pleurodesis. Repeat CT as above. Analgesics as needed. Encourage pulmonary toilet with incentive spirometer, flutter valve, position change. Monitor vitals. (8) Pneumothorax, iatrogenic Is this a current diagnosis for this admission?: Yes Plan: Resolved. Status post pleurodesis by surgery. SPO2 WNL on RA. Repeat chest x-ray shows resolution of pneumothorax. (9) CHF (congestive heart failure) Qualifiers: Heart failure type: combined systolic and diastolic Heart failure chr onicity: chronic Qualified Code(s): I50.42 - Chronic combined systolic (congestive) and diastolic (congestive) heart failure Is this a current diagnosis for this admission?: Yes Plan: Acutely exacerbated on admission. proBNP 16,800 on admission. (06/07/2020) 2D echo ejection fraction 25 to 30% with moderate pulmonary hypertension. Mechanical mitral valve.Per previous physician Continue cardiac diet, beta-blockers, Aldactone, furosemide. Cardiology previously consulted; have signed off. Reconsult as necessary and at time of discharge to arrange for LifeVest. (10) Atrial fibrillation Qualifiers: Atrial fibrillation type: longstanding persistent Qualified Code(s): I48.11 - Longstanding persistent atrial fibrillation Is this a current diagnosis for this admission?: Yes Plan: Sinus rhythm. Rate controlled. Was initially on heparin drip and transitioned to Coumadin. INR supratherapeutic; 5.15-> 3.91-> 2.05 Continue to monitor on telemetry. Continue beta-blockers Coumadin resumed; pharmacy to dose. Will bridge w/ Lovenox. Cardiology previous consulted; have signed off. Reconsult as needed. (11) Mechanical heart valve present Is this a current diagnosis for this admission?: Yes Plan: History of aortic stenosis status post mechanical valve placement on Saturday patient hospitalization was complicated by PEA and remained in hospital for 3 to 4 months and [facility]. As per recent echo mechanical valve functioning properly. Anticoagulated. On heparin bridge to Coumadin. Goal of INR 2.5-3.5. (12) Hypoglycemia Is this a current diagnosis for this admission?: Yes Plan: Noted to be hypoglycemic again. Patient is p.o. tolerant. We will start on D5NS and hypoglycemic protocol. Encourage p.o. intake. (13) Depression with anxiety Is this a current diagnosis for this admission?: Yes Plan: Denies any homicidal or suicidal ideation. Continue Remeron to help him sleep and increase his appetite also treated depression. PRN Ativan. - Time Time Spent with patient: 35 or more minutes Medications reviewed and adjusted accordingly: Yes Anticipated Discharge Disposition: [facility] Anticipated Discharge Timeframe: when bed available
[2020-07-03] MEDS: ASCORBIC ACID 500 MG TABLET PO SCH (17:27)
[2020-07-03] MEDS: DEXTROSE 5%-NORMAL SALINE 1,000 ML IV PRN (17:28)
[2020-07-03] MEDS: ATORVASTATIN CALCIUM 40 MG TABLET PO SCH (21:03)
[2020-07-03] MEDS: MIRTAZAPINE 15 MG TABLET PO SCH (21:06)
[2020-07-03] MEDS ORDERED: WARFARIN SODIUM 2 MG TABLET PO ONE (22:00)
[2020-07-04] MEDS ORDERED: HEPARIN SOD (PORCINE) 1,000 UNIT/ML 10 ML VIAL IV PRN ×2 (05:00→20:00)
[2020-07-04 05:17] LABS: INTERNATIONAL RATION (INR) 1.67; PROTHROMBIN TIME 19.8 SEC (11.4-15.4)
[2020-07-04] MEDS: DEXAMETHASONE SOD PHOS INJ 10 MG/1 ML VIAL IV SCH (05:25)
[2020-07-04] MEDS: PANTOPRAZOLE SODIUM 40 MG TABLET.DR PO SCH ×3 (05:26→17:30)
[2020-07-04] MEDS: MIDODRINE HCL 5 MG TABLET PO SCH ×3 (05:26→22:04)
[2020-07-04 05:33] LABS: D-DIMER 3.38 ug/mL (0.00-0.50)
[2020-07-04 05:41] LABS: ALBUMIN 2.7 g/dL (3.5-5.0); ALKALINE PHOSPHATASE 165 U/L (38-126); ANION GAP 11 (5-19); ASPARTATE AMINO TRANSFERASE 61 U/L (17-59); BILIRUBIN,DIRECT 0.6 mg/dL (0.0-0.4); BILIRUBIN,TOTAL 1.2 mg/dL (0.2-1.3); BLOOD UREA NITROGEN 28 mg/dL (7-20); CALCIUM 8.4 mg/dL (8.4-10.2); CARBON DIOXIDE 23 mmol/L (22-30); CHLORIDE 92 mmol/L (98-107); GLUCOSE 124 mg/dL (75-110); POTASSIUM 5.2 mmol/L (3.6-5.0); TOTAL PROTEIN 6.5 g/dL (6.3-8.2)
[2020-07-04 05:51] LABS: ABSOLUTE LYMPHOCYTES (AUTO) 0.5 10^3/uL (0.5-4.7); ABSOLUTE MONOCYTES (AUTO) 0.2 10^3/uL (0.1-1.4); ABSOLUTE NEUT (AUTO) 8.1 10^3/uL (1.7-8.2); BASOPHILS % (AUTO) 0.3 % (0-2); HEMATOCRIT 45.3 % (37.9-51.0); LYMPHOCYTES % (AUTO) 5.3 % (13-45); MEAN CORPUSCULAR HEMOGLOBIN 28.4 pg (27.0-33.4); MEAN CORPUSCULAR HGB CONC 33.2 g/dL (32.0-36.0); MEAN CORPUSCULAR VOLUME 86 fl (80-97); MONOCYTES % (AUTO) 2.6 % (3-13); PLATELET COUNT 171 10^3/uL (150-450); RED BLOOD COUNT 5.29 10^6/uL (4.35-5.55); RED CELL DISTRIBUTION WIDTH 19.1 % (11.5-14.0); SEGMENTED NEUTROPHILS % (AUTO) 91.8 % (42-78); TOTAL CELLS COUNTED % (AUTO) 100 %; WHITE BLOOD COUNT 8.8 10^3/uL (4.0-10.5)
[2020-07-04] MEDS: HEPARIN SOD (PORCINE) 1,000 UNIT/ML 10 ML VIAL IV PRN (09:13)
[2020-07-04] MEDS: IPRATROPIUM BROMIDE 0.02% NEB 0.5 MG/2.5 ML AMPUL NEB SCH ×3 (09:15→20:04)
[2020-07-04] MEDS: INSULIN LISPRO 100 UNIT/ML 3 ML VIAL SUBCUT SCH ×4 (09:17→22:05)
[2020-07-04] MEDS: FUROSEMIDE 20 MG TABLET PO SCH (09:19)
[2020-07-04] MEDS: ASCORBIC ACID 500 MG TABLET PO SCH ×3 (09:19→17:30)
[2020-07-04] MEDS: METOPROLOL TARTRATE 50 MG TABLET PO SCH ×2 (09:19→22:05)
[2020-07-04] MEDS: SPIRONOLACTONE 25 MG TABLET PO SCH (09:19)
[2020-07-04] MEDS: ASPIRIN 81 MG TABLET, CHEWABLE PO SCH (09:19)
[2020-07-04] MEDS: POLYETHYLENE GLYCOL 3350 POWDER 17 GM/1 PACKET PO SCH (09:20)
[2020-07-04] MEDS: DOCUSATE SODIUM 100 MG CAPSULE PO SCH ×2 (09:20→17:25)
[2020-07-04] MEDS: FLUTICASONE NASAL SPRAY 50 MCG/SPRY 120 SPRAY/16 GM NASL SCH (09:20)
[2020-07-04] MEDS: BISACODYL 10 MG SUPP.RECT PR SCH (09:20)
[2020-07-04] MEDS: ZINC SULFATE 220 MG CAPSULE PO SCH (09:21)
[2020-07-04] MEDS: CEFTRIAXONE 1 GM/D5W RTU 1 GM/50 ML RTUPB IV SCH (09:21)
[2020-07-04] MEDS: LIDOCAINE 5% (700 MG) TRANSDERMAL ADH..PATCH TP SCH (09:22)
[2020-07-04] MEDS: AZITHROMYCIN 500 MG in DEXTROSE 5%-WATER 250 ML IV SCH (10:54)
[2020-07-04] MEDS: HEPARIN SODIUM,PORCINE/D5W 25,000 UNIT/250 ML RTUINJ IV PRN (12:56)
--- NOTE | 2020-07-04 13:34 | PDOC PROGRESS REPORT ---
Subjective Progress Note for:: 07/04/20 Subjective:: Pavel Lepe 59-year-old male past medical history of CHF ejection fraction of 20 to 25%, status post leadless permanent pacemaker, atrial fibrillation on Coumadin, recurrent pleural effusion and pneumothorax, mitral valve replacement at [facility] which was complicated patient had to stay in the hospital for 4 months. Postoperatively patient had a PEA cardiac arrest and had renal failure and was discharged on hemodialysis was brought to ED by EMS after being found unresponsive and noted to be in V. tach, was given a shock of 100 J successful. 06/29/2020. This morning patient was noted to be very tachycardic and short of breath while receiving hemodialysis, was given 1 dose of IV metoprolol which helped her heart rate, respiratory symptoms also improved post hemodialysis, patient is tolerating some p.o. feeds, passing flatus and having small bowel movements, still short of breath and distended abdomen, abdomen hypoactive, NG tube is out, denies any fever, chills, nausea, abdominal pain or any urinary symptoms. Patient is pending paracentesis and thoracentesis by radiology however patient INR still too high. Currently on heparin drip. 06/30/2020. No acute events overnight. Patient still complaining of shortness of breath however chest pain has resolved, troponins trending down, and Dr. Garcia histologist technologist has seen patient and as per her note patient is not a candidate for any cardiac intervention due to multiple underlying comorbidities, patient denies any nausea, vomiting, diarrhea, constipation. Denies any fever. 07/01/2020. Saw patient this evening, he is just back from radiology after undergoing paracentesis and thoracentesis, stating that he is very hungry and asking for food, abdominal distention of improved and his shortness of breath also improving, patient denies any chest pain, nausea, vomiting, diarrhea. Alert and oriented x3. 07/02/2020. No acute events overnight. This morning patient was complaining of pain, received 1 dose of Ativan which helped significantly, patient also mentioning that he is depressed however denies any suicidal or homicidal ideation, patient likes to sit in the recliner, patient is tolerating his p.o. intake, no abdominal pain has resolved, patient having normal bowel and bladder movements. Patient is pending transfer to rehab. 07/03/2020. Overnight patient was running V. tach and was a started on amiodarone, V. tach resolved but unfortunately this morning patient was complaining of shortness of breath and anxiety, rapid COVID test came back positive, patient may have likely been exposed during dialysis last Saturday, patient is coughing however denies any fever, chest pain, nausea or vomiting, he still p.o. tolerant and having normal bowel movements. Patient was moved to ICU as there is no room available in COVID unit. 07/04/2020. Saw patient this morning while receiving hemodialysis in ICU, patient is awake and alert however seems very weak, patient still wants to limit full code and has given me permission to get him effervescent plasma if possible, denies any fever, chills, chest pain or shortness of breath. On 6 L nasal cannula saturating 100%. Reason For Visit: V TACHYCARDIA Physical Exam Vital Signs: Temp Pulse Resp BP Pulse Ox 96.8 F L 98 17 112/98 H 100 07/04/20 12:00 07/04/20 08:00 07/04/20 08:00 07/04/20 08:00 07/04/20 08:00 Intake & Output 07/03/20 07/04/20 07/05/20 06:59 06:59 06:59 Intake Total 4875 687 8905 Output Total 108 550 2895 Balance 1253 50 -1375 Weight 54.1 kg 58.1 kg General appearance: PRESENT: no acute distress, thin Head exam: PRESENT: atraumatic, normocephalic Respiratory exam: PRESENT: clear to auscultation [place]. ABSENT: rales, rhonchi, wheezes Cardiovascular exam: PRESENT: RRR. ABSENT: diastolic murmur, rubs, systolic murmur GI/Abdominal exam: PRESENT: distended, normal bowel sounds, soft. ABSENT: guarding, mass, organolmegaly, rebound, tenderness Neurological exam: PRESENT: alert, awake, oriented to person, oriented to place, oriented to time, oriented to situation Results Laboratory Results: 07/04/20 05:00 07/04/20 05:00 07/04/20 07/04/20 05:00 05:00 WBC 8.8 RBC 5.29 Hgb 15.0 D Hct 45.3 MCV 86 MCH 28.4 MCHC 33.2 RDW 19.1 H Plt Count 171 Seg Neutrophils % 91.8 H Sodium 125.8 L Potassium 5.2 H Chloride 92 L Carbon Dioxide 23 Anion Gap 11 BUN 28 H Creatinine 1.78 H Est GFR ( Amer) 48 L Glucose 124 H Calcium 8.4 Magnesium 2.0 Total Bilirubin 1.2 AST 61 H Alkaline Phosphatase 165 H Total Protein 6.5 Albumin 2.7 L 07/01/20 14:55 Ascities Fluid Gram Stain - Final 06/07/20 06/07/20 06/07/20 12:24 12:24 15:08 Creatine Kinase 34 L CK-MB (CK-2) Troponin I 0.035 0.041 NT-Pro-B Natriuret Pep 06/07/20 06/07/20 06/08/20 16:45 22:01 05:25 Creatine Kinase 35 L 40 L 35 L CK-MB (CK-2) Troponin I NT-Pro-B Natriuret Pep 06/08/20 06/29/20 06/29/20 05:25 07:30 07:30 Creatine Kinase 27 L CK-MB (CK-2) 1.04 Troponin I 0.028 NT-Pro-B Natriuret Pep 88397 H 06/29/20 06/29/20 06/29/20 15:11 15:11 20:37 Creatine Kinase 39 L CK-MB (CK-2) 2.04 Troponin I 0.142 0.166 NT-Pro-B Natriuret Pep 06/30/20 05:00 Creatine Kinase CK-MB (CK-2) Troponin I 0.119 NT-Pro-B Natriuret Pep Impressions: Head CT 06/07/20 13:02 IMPRESSION: Stable CT of the brain with bifrontal encephalomalacia. No acute intracranial event. EVIDENCE OF ACUTE STROKE: NO. Thoracentesis Ultrasound 06/08/20 00:00 IMPRESSION: SUCCESSFUL THORACENTESIS AND CHEST TUBE PLACEMENT USING ULTRASOUND GUIDANCE. Abdomen/Pelvis CT 06/17/20 00:00 IMPRESSION: 1. Small bowel obstruction with transition point in the left mid abdomen. This may be a high-grade partial obstruction. Distal small bowel and colon are decompressed. 2. Marked urinary bladder distention, suggestive of bladder outlet obstruction. Clinical correlation is recommended. 3. Loculated right hydropneumothorax and small left pleural effusion, not significantly changed. Compressive atelectasis at the lung bases. 4. Moderate ascites, slightly decreased from previous examination. 5. Mildly nodular contour of the liver, nonspecific however could indicate underlying hepatic cirrhosis. Clinical correlation is with recommended. 6. Diffuse subcutaneous edema, suggestive of fluid overload. 7. Colonic diverticulosis without evidence of diverticulitis. KUB X-Ray 06/22/20 00:00 IMPRESSION: Partial small bowel obstruction Chest CT 06/25/20 00:00 IMPRESSION: Loculated right hydropneumothorax which appears similar at the right lung base from the abdominal CT dated 06/17/2020. Slight interval increase in left pleural effusion. Moderate ascites with a similar nonspecific nodular hepatic contour and slight heterogeneous hepatic attenuation. Paracentesis Ultrasound 07/01/20 08:26 IMPRESSION: SUCCESSFUL ULTRASOUND GUIDED PARACENTESIS. Chest X-Ray 07/03/20 10:49 IMPRESSION: STABLE APPEARANCE OF THE CHEST. SUPPORT DEVICES UNCHANGED. Assessment and Plan - Diagnosis (1) COVID-19 virus detected Is this a current diagnosis for this admission?: Yes Plan: Short of breath, tachypneic, increasing oxygen requirement from 1.5 to 6 L nasal cannula. Saturating 100%. Repeat CXR stable appearance as per radiologist, but upon my observation there are some new opacities on the left lobe. Elevated CRP and d-dimer. Day 2 IV antibiotics. Day 2 IV azithromycin. Day 2 IV ceftriaxone. Day 2 IV dexamethasone. Day 2 IV Remdisivr. Patient has given his consent to get him a effervescent plasma. We will try to get him approved for some plasma. Continue empiric IV azithromycin, IV ceftriaxone, IV dexamethasone, Remdisivir, p.o. zinc sulfate and p.o. vitamin C. already on heparin being bridged to Coumadin. Patient has had prolonged hospitalization here at [facility] and [facility] and has extensive underlying comorbidities not sure if patient will do very well with coinfection. Low threshold for intubation. (2) Small bowel obstruction Is this a current diagnosis for this admission?: Yes Plan: Resolved. Passing flatus, having small bowel meds. Tolerating clear liquids. CT abdomen positive for high-grade partial obstruction on CT with a transition point in the left mid abdomen. KUB shows persistent mildly dilated loops of small bowel to the left of midline. Gas and fecal material in the rectum. KUB shows persistent small bowel obstruction. NG tube discontinued. Advance to soft/low residue liquids. Continue Colace and MiraLax daily. Monitor electrolytes and volume status. (3) Ventricular tachyarrhythmia Is this a current diagnosis for this admission?: Yes Plan: Sinus rhythm. On beta-blockers. 07/03/2020 patient again went into V. tach and was a started on amiodarone. Currently sinus rhythm. On admission was noticed to have wide-complex tachycardia at the rate of 220 reported by EMS, status post 100 J shock. As per cardiology note patient is a will require implantable cardioverter defibrillator however he is not a candidate given his multiorgan failure and nutritional status. Cardiology consulted. Recommendation at this time is medical management and optimizing electrolytes. Reconsult cardiology at time of discharge. (4) DEMETRIUS (acute kidney injury) Is this a current diagnosis for this admission?: Yes Plan: Chronic renal failure. History of end-stage renal disease. Nephrology is consulted; receiving scheduled hemodialysis. Spoke w/ Dr. Rush, patient will require chronic dialysis following discharge. Monitor volume status. Monitor electrolytes and replace as needed. Mccall in place for strict I&Os (5) Ascites Qualifiers: Ascites type: due to alcoholic cirrhosis Qualified Code(s): K70.31 - Alcoholic cirrhosis of liver with ascites Is this a current diagnosis for this admission?: Yes Plan: Continue furosemide and spironolactone. Nephrology consulted for dialysis. Agrees to palliative paracentesis. Status post paracentesis on 07/01/2020. On heparin being bridged back to Coumadin. (6) COPD (chronic obstructive pulmonary disease) Qualifiers: COPD type: unspecified COPD Qualified Code(s): J44.9 - Chronic obstructive pulmonary disease, unspecified Is this a current diagnosis for this admission?: Yes Plan: Does not appear to be acutely exacerbated. No indications for antibiotic or steroid therapy at this time. We will decrease frequency of scheduled nebs. (7) Hydrothorax Is this a current diagnosis for this admission?: Yes Plan: Resolved. History of recurrent pleural effusion. Patient had a chest tube placed on the right chest. Status post chest tube removal on 06/17/2020. s/p pleurodesis. Repeat CT as above. Analgesics as needed. Encourage pulmonary toilet with incentive spirometer, flutter valve, position change. Monitor vitals. (8) Pneumothorax, iatrogenic Is this a current diagnosis for this admission?: Yes Plan: Resolved. Status post pleurodesis by surgery. SPO2 WNL on RA. Repeat chest x-ray shows resolution of pneumothorax. (9) CHF (congestive heart failure) Qualifiers: Heart failure type: combined systolic and diastolic Heart failure chronicity: chronic Qualified Code(s): I50.42 - Chronic combined systolic (congestive) and diastolic (congestive) heart failure Is this a current diagnosis for this admission?: Yes Plan: Acutely exacerbated on admission. proBNP 16,800 on admission. (06/07/2020) 2D echo ejection fraction 25 to 30% with moderate pulmonary hypertension. Mechanical mitral valve.Per previous physician Continue cardiac diet, beta-blockers, Aldactone, furosemide. Cardiology previously consulted; have signed off. Reconsult as necessary and at time of discharge to arrange for LifeVest. (10) Atrial fibrillation Qualifiers: Atrial fibrillation type: longstanding persistent Qualified Code(s): I48.11 - Longstanding persistent atrial fibrillation Is this a current diagnosis for this admission?: Yes Plan: Sinus rhythm. Rate controlled. Was initially on heparin drip and transitioned to Coumadin. INR supratherapeutic; 5.15-> 3.91-> 2.05 Continue to monitor on telemetry. Continue beta-blockers Coumadin resumed; pharmacy to dose. Will bridge w/ Lovenox. Cardiology previous consulted; have signed off. Reconsult as needed. (11) Mechanical heart valve present Is this a current diagnosis for this admission?: Yes Plan: History of aortic stenosis status post mechanical valve placement on Saturday patient hospitalization was complicated by PEA and remained in hospital for 3 to 4 months and [facility]. As per recent echo mechanical valve functioning properly. Anticoagulated. On heparin bridge to Coumadin. Goal of INR 2.5-3.5. (12) Hypoglycemia Is this a current diagnosis for this admission?: Yes Plan: Noted to be hypoglycemic again. Patient is p.o. tolerant. We will start on D5NS and hypoglycemic protocol. Encourage p.o. intake. (13) Depression with anxiety Is this a current diagnosis for this admission?: Yes Plan: Denies any homicidal or suicidal ideation. Continue Remeron to help him sleep and increase his appetite also treated de pression. PRN Ativan. - Time Time Spent with patient: 25-34 minutes Medications reviewed and adjusted accordingly: Yes Anticipated Discharge Disposition[facility] Anticipated Discharge Timeframe: when bed available
[2020-07-04] MEDS ORDERED: NORMAL SALINE 250 ML IV PRN ×3 (13:42→17:50)
--- NOTE | 2020-07-04 14:52 | PDOC PROGRESS REPORT ---
Subjective Progress Note for:: 07/04/20 Subjective:: I am seeing the patient during dialysis this morning through the glass doors of his room. He was transferred here in the ICU for isolation because he became COVID positive yesterday. He is sleeping comfortably while receiving dialysis. So far he is tolerating dialysis and hemodynamically stable. Yesterday the patient developed shortness of breath. Saturday night he developed V. tach which resolved in the morning. Rapid testing for COVID came out positive so he was placed in isolation. He is not being treated for active COVID-19 infection. Reason For Visit: V TACHYCARDIA Physical Exam Vital Signs: Temp Pulse Resp BP Pulse Ox 97.7 F 98 17 112/98 H 100 07/04/20 03:39 07/04/20 08:00 07/04/20 08:00 07/04/20 08:00 07/04/20 08:00 Intake & Output 07/03/20 07/04/20 07/05/20 06:59 06:59 06:59 Intake Total 1553 50 Output Total 300 250 Balance 1253 -200 Weight 54.1 kg 58.1 kg Vitals during dialysis: Blood pressure 150/91, heart rate of 104, blood flow rate of 350 mL/min and dialysate flow rate of 600 mL/min. Exam: Physical exam limited to just inspection due to highly infectious COVID-19 and now on isolation. General appearance: PRESENT: no acute distress, currently sleeping and appears to be comfortable Head exam: PRESENT: atraumatic, normocephalic Skin exam: PRESENT: dry, warm, pale Cardiovascular exam: PRESENT: +S1, +S2 GI/Abdominal exam: PRESENT: ascites, distended, normal bowel sounds, soft. ABSENT: firm, guarding, organomegaly Results Laboratory Results: 07/04/20 05:00 07/04/20 05:00 07/03/20 07/04/20 07/04/20 12:26 05:00 05:00 WBC 8.8 RBC 5.29 Hgb 15.0 D Hct 45.3 MCV 86 MCH 28.4 MCHC 33.2 RDW 19.1 H Plt Count 171 Seg Neutrophils % 91.8 H Sodium 125.8 L Potassium 5.2 H Chloride 92 L Carbon Dioxide 23 Anion Gap 11 BUN 28 H Creatinine 1.78 H Est GFR ( Amer) 48 L Glucose 124 H Calcium 8.4 Magnesium 2.0 Ferritin Cancelled Total Bilirubin 1.2 AST 61 H Alkaline Phosphatase 165 H C-Reactive Protein 71.3 H Total Protein 6.5 Albumin 2.7 L 07/01/20 14:55 Ascities Fluid Gram Stain - Final 06/07/20 06/07/20 06/07/20 12:24 12:24 15:08 Creatine Kinase 34 L CK-MB (CK-2) Troponin I 0.035 0.041 NT-Pro-B Natriuret Pep 06/07/20 06/07/20 06/08/20 16:45 22:01 05:25 Creatine Kinase 35 L 40 L 35 L CK-MB (CK-2) Troponin I NT-Pro-B Natriuret Pep 06/08/20 06/29/20 06/29/20 05:25 07:30 07:30 Creatine Kinase 27 L CK-MB (CK-2) 1.04 Troponin I 0.028 NT-Pro-B Natriuret Pep [id number] H 06/29/20 06/29/20 06/29/20 15:11 15:11 20:37 Creatine Kinase 39 L CK-MB (CK-2) 2.04 Troponin I 0.142 0.166 NT-Pro-B Natriuret Pep 06/30/20 05:00 Creatine Kinase CK-MB (CK-2) Troponin I 0.119 NT-Pro-B Natriuret Pep Impressions: Head CT 06/07/20 13:02 IMPRESSION: Stable CT of the brain with bifrontal encephalomalacia. No acute intracranial event. EVIDENCE OF ACUTE STROKE: NO. Thoracentesis Ultrasound 06/08/20 00:00 IMPRESSION: SUCCESSFUL THORACENTESIS AND CHEST TUBE PLACEMENT USING ULTRASOUND GUIDANCE. Abdomen/Pelvis CT 06/17/20 00:00 IMPRESSION: 1. Small bowel obstruction with transition point in the left mid abdomen. This may be a high-grade partial obstruction. Distal small bowel and colon are decompressed. 2. Marked urinary bladder distention, suggestive of bladder outlet obstruction. Clinical correlation is recommended. 3. Loculated right hydropneumothorax and small left pleural effusion, not significantly changed. Compressive atelectasis at the lung bases. 4. Moderate ascites, slightly decreased from previous examination. 5. Mildly nodular contour of the liver, nonspecific however could indicate underlying hepatic cirrhosis. Clinical correlation is with recommended. 6. Diffuse subcutaneous edema, suggestive of fluid overload. 7. Colonic diverticulosis without evidence of diverticulitis. KUB X-Ray 06/22/20 00:00 IMPRESSION: Partial small bowel obstruction Chest CT 06/25/20 00:00 IMPRESSION: Loculated right hydropneumothorax which appears similar at the right lung base from the abdominal CT dated 06/17/2020. Slight interval increase in left pleural effusion. Moderate ascites with a similar nonspecific nodular hepatic contour and slight heterogeneous hepatic attenuation. Paracentesis Ultrasound 07/01/20 08:26 IMPRESSION: SUCCESSFUL ULTRASOUND GUIDED PARACENTESIS. Chest X-Ray 07/03/20 10:49 IMPRESSION: STABLE APPEARANCE OF THE CHEST. SUPPORT DEVICES UNCHANGED. Assessment & Plan - Diagnosis (1) ESRD (end stage renal disease) on dialysis Is this a current diagnosis for this admission?: Yes Plan: We will do dialysis today for 2.5 hours, using the patient's PermCath, with 142 sodium, 2 potassium bath, blood flow rate of 250 mL per minute, dialysate flow rate of 600 mL per minute, ultrafiltration 1 to 1.5 L as tolerated , no heparin and no Procrit. Patient is being closely monitored throughout dialysis treatment especially with hypotension. Patient's urine output remains to be very minimal at around 400 mL despite alvarez ving Mccall catheter due to finding of bladder outlet obstruction on CT scan. His creatinine has decreased but I think moving forward, with all his other comorbidities and episodes of fluid overload he is better off to stay on dialysis chronically to help manage volume. We will have case management to arrange outpatient chronic dialysis treatment once discharge. (2) COVID-19 virus detected Is this a current diagnosis for this admission?: Yes Plan: Currently being treated since yesterday, July 03 with Remdesivir, vitamin C, Zinc, Dexamethasone, Zithromax and ceftriaxone per hospitalist service. (3) Bladder outlet obstruction Is this a current diagnosis for this admission?: Yes Plan: Mccall catheter in place currently. Urine output remains minimal around 200-300 mL on furosemide. (4) Small bowel obstruction Is this a current diagnosis for this admission?: Yes Plan: Resolved. (5) Pleural effusion Is this a current diagnosis for this admission?: Yes Plan: Status post thoracentesis, 06/08 with initial chest tube placement. Chest tube placement revised with pleurodesis on Wednesday 06/13. Chest tube removed. 06/17. Chest CT on June 25 showed persistent loculated right hydropneumothorax. (6) CHF (congestive heart failure) Qualifiers: Heart failure type: combined systolic and diastolic Heart failure chronicity: chronic Qualified Code(s): I50.42 - Chronic combined systolic (congestive) and diastolic (congestive) heart failure Is this a current diagnosis for this admission?: Yes Plan: EF of 25 to 30% with moderately reduced right ventricular systolic function. Patient has cardiomyopathy. Cardiology on board. Recommendation includes placement of implantable defibrillator but uncertain if the patient can tolerate the procedure. So for now medical management. (7) Ventricular tachyarrhythmia Is this a current diagnosis for this admission?: Yes Plan: Per cardiology. (8) Hypotension Qualifiers: Hypotension type: idiopathic hypotension Qualified Code(s): I95.0 - Idiopathic hypotension Is this a current diagnosis for this admission?: Yes Plan: Likely secondary to poor cardiac function and cardiomyopathy. Currently on midodrine. Adrenal insufficiency has been previously ruled out during previous admission. (9) Hyponatremia Is this a current diagnosis for this admission?: Yes Plan: Chronic and stable. Secondary to hypervolemic state with CHF and ESRD. I will adjust sodium in dialysis bath. (10) Atrial fibrillation Qualifiers: Atrial fibrillation type: longstanding persistent Qualified Code(s): I48.11 - Longstanding persistent atrial fibrillation Is this a current diagnosis for this admission?: Yes Plan: On anticoagulation. Rate controlled (11) Ascites Qualifiers: Ascites type: due to alcoholic cirrhosis Qualified Code(s): K70.31 - Alcoholic cirrhosis of liver with ascites Is this a current diagnosis for this admission?: Yes Plan: Paracentesis was done on Saturday, July 01. (12) Leukocytosis Qualifiers: Leukocytosis type: unspecified Qualified Code(s): D72.829 - Elevated white blood cell count, unspecified Is this a current diagnosis for this admission?: Yes Plan: Resolved. (13) Pneumothorax, iatrogenic Is this a current diagnosis for this admission?: Yes Plan: Post chest tube placement. (14) H/O mitral valve replacement with mechanical valve Is this a current diagnosis for this admission?: Yes Plan: Currently on warfarin. - Time Time with patient: 15-25 minutes
[2020-07-04] MEDS: DEXAMETHASONE SOD PHOSPHATE INJ 4 MG/1 ML VIAL IV SCH ×2 (16:54→22:04)
[2020-07-04 17:27] LABS: APPEARANCE,URINE TURBID; BILIRUBIN,URINE NEGATIVE (NEGATIVE); COLOR,URINE AMBER; GLUCOSE, URINE NEGATIVE (NEGATIVE); KETONES,URINE NEGATIVE (NEGATIVE); LEUKOCYTE ESTERASE,URINE LARGE (NEGATIVE); NITRITE,URINE NEGATIVE (NEGATIVE); PROTEIN,URINE 30 mg/dL (NEGATIVE); URINE SPECIFIC GRAVITY 1.008; UROBILINOGEN,URINE NEGATIVE mg/dL (<2.0)
[2020-07-04] MEDS: REMDESIVIR (EUA) 100 MG in NORMAL SALINE 250 ML IV SCH (18:53)
[2020-07-04] MEDS: DEXTROSE 5%-NORMAL SALINE 1,000 ML IV PRN (18:54)
[2020-07-04] MEDS ORDERED: HEPARIN SODIUM,PORCINE/D5W 25,000 UNIT/250 ML RTUINJ IV PRN (20:00)
[2020-07-04] MEDS ORDERED: WARFARIN SODIUM 3 MG TABLET PO SCH (22:00)
[2020-07-04] MEDS ORDERED: ENOXAPARIN SODIUM INJ 60 MG/0.6 ML DISP.SYRIN SUBCUT SCH (22:00)
[2020-07-04] MEDS: MIRTAZAPINE 15 MG TABLET PO SCH (22:04)
[2020-07-04] MEDS: PHARMACY COMMUNICATION ORDER MC SCH (22:04)
[2020-07-04] MEDS: ATORVASTATIN CALCIUM 40 MG TABLET PO SCH (22:04)
[2020-07-04] MEDS: CEFEPIME 1 GM/D5W RTU 1 GM/50 ML RTUPB IV SCH (22:06)
[2020-07-04 22:49] LABS: HEMATOCRIT 39.5 % (37.9-51.0); MEAN CORPUSCULAR HEMOGLOBIN 27.9 pg (27.0-33.4); MEAN CORPUSCULAR HGB CONC 32.6 g/dL (32.0-36.0); MEAN CORPUSCULAR VOLUME 86 fl (80-97); RED BLOOD COUNT 4.62 10^6/uL (4.35-5.55); RED CELL DISTRIBUTION WIDTH 19.4 % (11.5-14.0); WHITE BLOOD COUNT 14.3 10^3/uL (4.0-10.5)
[2020-07-04 22:50] LABS: PLATELET COUNT 207 10^3/uL (150-450)
[2020-07-04 22:57] LABS: HEMOGLOBIN 12.9 g/dL (13.5-17.0)
[2020-07-05 03:53] LABS: HEMATOCRIT 39.2 % (37.9-51.0); HEMOGLOBIN 12.7 g/dL (13.5-17.0); MEAN CORPUSCULAR HEMOGLOBIN 27.8 pg (27.0-33.4); MEAN CORPUSCULAR HGB CONC 32.4 g/dL (32.0-36.0); MEAN CORPUSCULAR VOLUME 86 fl (80-97); PLATELET COUNT 190 10^3/uL (150-450); RED BLOOD COUNT 4.57 10^6/uL (4.35-5.55); RED CELL DISTRIBUTION WIDTH 19.3 % (11.5-14.0); WHITE BLOOD COUNT 17.3 10^3/uL (4.0-10.5)
[2020-07-05 03:55] LABS: INTERNATIONAL RATION (INR) 2.63
[2020-07-05] MEDS: MIDODRINE HCL 5 MG TABLET PO SCH ×3 (06:02→21:47)
[2020-07-05] MEDS: PANTOPRAZOLE SODIUM 40 MG TABLET.DR PO SCH ×2 (06:02→17:16)
[2020-07-05] MEDS: DEXAMETHASONE SOD PHOSPHATE INJ 4 MG/1 ML VIAL IV SCH ×3 (06:03→21:50)
[2020-07-05 06:23] LABS: ABSOLUTE LYMPHOCYTES# (MANUAL) 0.5 10^3/uL (0.5-4.7); ANISOCYTOSIS 2+; BASOPHILS % (MANUAL) 0 % (0-2); BURR CELLS 2+; EOSINOPHILS % (MANUAL) 0 % (0-6); LYMPHOCYTES % (MANUAL) 3 % (13-45); MONOCYTES % (MANUAL) 0 % (3-13); OVALOCYTES SLIGHT; PARTIAL THROMBOPLASTIN TIME > 235.0 SEC (23.5-35.8); POIKILOCYTOSIS SLIGHT; POLYCHROMASIA SLIGHT; SEGMENTED NEUTROPHILS % (MAN) 97 % (42-78); TOTAL CELLS COUNTED 100; TOXIC GRANULATION 1+
[2020-07-05 06:24] LABS: PLATELET COMMENT ADEQUATE
[2020-07-05] MEDS: INSULIN LISPRO 100 UNIT/ML 3 ML VIAL SUBCUT SCH ×4 (08:18→22:56)
[2020-07-05] MEDS: IPRATROPIUM BROMIDE 0.02% NEB 0.5 MG/2.5 ML AMPUL NEB SCH ×3 (09:44→21:25)
[2020-07-05] MEDS: CEFEPIME 1 GM/D5W RTU 1 GM/50 ML RTUPB IV SCH ×2 (11:05→22:00)
[2020-07-05] MEDS: ASCORBIC ACID 500 MG TABLET PO SCH ×2 (11:06→17:16)
[2020-07-05] MEDS: SPIRONOLACTONE 25 MG TABLET PO SCH (11:06)
[2020-07-05] MEDS: FUROSEMIDE 20 MG TABLET PO SCH (11:06)
[2020-07-05] MEDS: ZINC SULFATE 220 MG CAPSULE PO SCH (11:06)
[2020-07-05] MEDS: ASPIRIN 81 MG TABLET, CHEWABLE PO SCH (11:07)
[2020-07-05] MEDS: DOCUSATE SODIUM 100 MG CAPSULE PO SCH ×2 (11:07→19:02)
[2020-07-05] MEDS: BISACODYL 10 MG SUPP.RECT PR SCH (11:07)
[2020-07-05] MEDS: POLYETHYLENE GLYCOL 3350 POWDER 17 GM/1 PACKET PO SCH (11:08)
[2020-07-05] MEDS: LIDOCAINE 5% (700 MG) TRANSDERMAL ADH..PATCH TP SCH (11:08)
[2020-07-05] MEDS: FLUTICASONE NASAL SPRAY 50 MCG/SPRY 120 SPRAY/16 GM NASL SCH (11:08)
[2020-07-05] MEDS: METOPROLOL TARTRATE 50 MG TABLET PO SCH ×2 (11:08→21:49)
[2020-07-05] MEDS: AZITHROMYCIN 500 MG in DEXTROSE 5%-WATER 250 ML IV SCH (11:09)
[2020-07-05 16:17] LABS: ALBUMIN 2.6 g/dL (3.5-5.0); ALKALINE PHOSPHATASE 188 U/L (38-126); ANION GAP 9 (5-19); ASPARTATE AMINO TRANSFERASE 40 U/L (17-59); BILIRUBIN,DIRECT 0.6 mg/dL (0.0-0.4); BILIRUBIN,TOTAL 1.1 mg/dL (0.2-1.3); BLOOD UREA NITROGEN 25 mg/dL (7-20); CALCIUM 7.9 mg/dL (8.4-10.2); CARBON DIOXIDE 26 mmol/L (22-30); CHLORIDE 93 mmol/L (98-107); GLUCOSE 133 mg/dL (75-110); POTASSIUM 4.3 mmol/L (3.6-5.0); TOTAL PROTEIN 6.3 g/dL (6.3-8.2)
--- NOTE | 2020-07-05 17:01 | PDOC PROGRESS REPORT ---
Subjective Progress Note for:: 07/05/20 Subjective:: Pavel Lepe 59-year-old male past medical history of CHF ejection fraction of 20 to 25%, status post leadless permanent pacemaker, atrial fibrillation on Coumadin, recurrent pleural effusion and pneumothorax, mitral valve replacement at [place] which was complicated patient had to stay in the hospital for 4 months. Postoperatively patient had a PEA cardiac arrest and had renal failure and was discharged on hemodialysis was brought to ED by EMS after being found unresponsive and noted to be in V. tach, was given a shock of 100 J successful. 06/29/2020. This morning patient was noted to be very tachycardic and short of breath while receiving hemodialysis, was given 1 dose of IV metoprolol which helped her heart rate, respiratory symptoms also improved post hemodialysis, patient is tolerating some p.o. feeds, passing flatus and having small bowel movements, still short of breath and distended abdomen, abdomen hypoactive, NG tube is out, denies any fever, chills, nausea, abdominal pain or any urinary symptoms. Patient is pending paracentesis and thoracentesis by radiology however patient INR still too high. Currently on heparin drip. 06/30/2020. No acute events overnight. Patient still complaining of shortness of breath however chest pain has resolved, troponins trending down, and Dr. Garcia art dealer has seen patient and as per her note patient is not a candidate for any cardiac intervention due to multiple underlying comorbidities, patient denies any nausea, vomiting, diarrhea, constipation. Denies any fever. 07/01/2020. Saw patient this evening, he is just back from radiology after undergoing paracentesis and thoracentesis, stating that he is very hungry and asking for food, abdominal distention of improved and his shortness of breath also improving, patient denies any chest pain, nausea, vomiting, diarrhea. Alert and oriented x3. 07/02/2020. No acute events overnight. This morning patient was complaining of pain, received 1 dose of Ativan which helped significantly, patient also mentioning that he is depressed however denies any suicidal or homicidal ideation, patient likes to sit in the recliner, patient is tolerating his p.o. intake, no abdominal pain has resolved, patient having normal bowel and bladder movements. Patient is pending transfer to rehab. 07/03/2020. Overnight patient was running V. tach and was a started on amiodarone, V. tach resolved but unfortunately this morning patient was complaining of shortness of breath and anxiety, rapid COVID test came back positive, patient may have likely been exposed during dialysis last Saturday, patient is coughing however denies any fever, chest pain, nausea or vomiting, he still p.o. tolerant and having normal bowel movements. Patient was moved to ICU as there is no room available in COVID unit. 07/04/2020. Saw patient this morning while receiving hemodialysis in ICU, patient is awake and alert however seems very weak, patient still wants to limit full code and has given me permission to get him effervescent plasma if possible, denies any fever, chills, chest pain or shortness of breath. On 6 L nasal cannula saturating 100%. 07/05/2020. Saw patient this morning, complaining of being cold, endorsing low appetite, otherwise denies any chest pain, shortness of breath, nausea, vomiting. Reason For Visit: COVID-19, ESR, V-TACH Physical Exam Vital Signs: Temp Pulse Resp BP Pulse Ox 96.9 F L 97 18 109/83 99 07/05/20 12:00 07/05/20 13:45 07/05/20 13:45 07/05/20 12:00 07/05/20 13:45 Intake & Output 07/04/20 07/05/20 07/06/20 06:59 06:59 06:59 Intake Total 300 2506 241 Output Total 250 2760 Balance 50 -254 241 Weight 58.1 kg 62.6 kg General appearance: PRESENT: no acute distress, thin Head exam: PRESENT: atraumatic, normocephalic Respiratory exam: PRESENT: clear to auscultation monroe. ABSENT: rales, rhonchi, wheezes Cardiovascular exam: PRESENT: RRR. ABSENT: diastolic murmur, rubs, systolic murmur GI/Abdominal exam: PRESENT: ascites, normal bowel sounds, soft. ABSENT: di stended, guarding, mass, organolmegaly, rebound, tenderness Neurological exam: PRESENT: alert, awake, oriented to person, oriented to place, oriented to time, oriented to situation, CN II-XII grossly intact. ABSENT: motor sensory deficit Skin exam: PRESENT: other - Right lateral chest tube area erythema and discharge. Results Laboratory Results: 07/05/20 03:39 07/05/20 15:40 07/04/20 07/04/20 07/04/20 15:47 16:50 20:39 WBC 14.3 H RBC 4.62 Hgb 12.9 L D Hct 39.5 MCV 86 MCH 27.9 MCHC 32.6 RDW 19.4 H Plt Count 207 Seg Neutrophils % Sodium Potassium Chloride Carbon Dioxide Anion Gap BUN Creatinine Est GFR ( Amer) Est GFR (Non-Af Amer) Glucose Calcium Magnesium Total Bilirubin AST Alkaline Phosphatase Total Protein Albumin Urine Color AIDE Urine Appearance TURBID Urine pH 5.0 Ur Specific Adams 1.008 Urine Protein 30 H Urine Glucose (UA) NEGATIVE Urine Ketones NEGATIVE Urine Blood LARGE H Urine Nitrite NEGATIVE Ur Leukocyte Esterase LARGE H Urine WBC (Auto) >182 Urine RBC (Auto) 87 Blood Type O POSITIVE Antibody Screen NEGATIVE 07/05/20 07/05/20 07/05/20 03:39 03:39 08:15 WBC 17.3 H RBC 4.57 Hgb 12.7 L Hct 39.2 MCV 86 MCH 27.8 MCHC 32.4 RDW 19.3 H Plt Count 190 Seg Neutrophils % Not Reportable Sodium Cancelled Cancelled Potassium Cancelled Cancelled Chloride Cancelled Cancelled Carbon Dioxide Cancelled Cancelled Anion Gap Cancelled Cancelled BUN Cancelled Cancelled Creatinine Cancelled Cancelled Est GFR ( Amer) Cancelled Cancelled Est GFR (Non-Af Amer) Cancelled Cancelled Glucose Cancelled Cancelled Calcium Cancelled Cancelled Magnesium Cancelled Cancelled Total Bilirubin Cancelled Cancelled AST Cancelled Cancelled Alkaline Phosphatase Cancelled Cancelled Total Protein Cancelled Cancelled Albumin Cancelled Cancelled Urine Color Urine Appearance Urine pH Ur Specific Adams Urine Protein Urine Glucose (UA) Urine Ketones Urine Blood Urine Nitrite Ur Leukocyte Esterase Urine WBC (Auto) Urine RBC (Auto) Blood Type Antibody Screen 07/05/20 15:40 WBC RBC Hgb Hct MCV MCH MCHC RDW Plt Count Seg Neutrophils % Sodium 128.1 L Potassium 4.3 Chloride 93 L Carbon Dioxide 26 Anion Gap 9 BUN 25 H Creatinine 1.44 H Est GFR ( Amer) > 60 Est GFR (Non-Af Amer) Glucose 133 H Calcium 7.9 L Magnesium 2.1 Total Bilirubin 1.1 AST 40 Alkaline Phosphatase 188 H Total Protein 6.3 Albumin 2.6 L Urine Color Urine Appearance Urine pH Ur Specific Adams Urine Protein Urine Glucose (UA) Urine Ketones Urine Blood Urine Nitrite Ur Leukocyte Esterase Urine WBC (Auto) Urine RBC (Auto) Blood Type Antibody Screen 07/01/20 14:55 Ascities Fluid Gram Stain - Final 07/01/20 14:55 Ascities Fluid Body Fluid Culture - Final NO AEROBIC OR ANAEROBIC ORGANISMS RECOVERED 06/07/20 06/07/20 06/07/20 12:24 12:24 15:08 Creatine Kinase 34 L CK-MB (CK-2) Troponin I 0.035 0.041 NT-Pro-B Natriuret Pep 06/07/20 06/07/20 06/08/20 16:45 22:01 05:25 Creatine Kinase 35 L 40 L 35 L CK-MB (CK-2) Troponin I NT-Pro-B Natriuret Pep 06/08/20 06/29/20 06/29/20 05:25 07:30 07:30 Creatine Kinase 27 L CK-MB (CK-2) 1.04 Troponin I 0.028 NT-Pro-B Natriuret Pep 04306 H 06/29/20 06/29/20 06/29/20 15:11 15:11 20:37 Creatine Kinase 39 L CK-MB (CK-2) 2.04 Troponin I 0.142 0.166 NT-Pro-B Natriuret Pep 06/30/20 05:00 Creatine Kinase CK-MB (CK-2) Troponin I 0.119 NT-Pro-B Natriuret Pep Impressions: Head CT 06/07/20 13:02 IMPRESSION: Stable CT of the brain with bifrontal encephalomalacia. No acute intracranial event. EVIDENCE OF ACUTE STROKE: NO. Thoracentesis Ultrasound 06/08/20 00:00 IMPRESSION: SUCCESSFUL THORACENTESIS AND CHEST TUBE PLACEMENT USING ULTRASOUND GUIDANCE. Abdomen/Pelvis CT 06/17/20 00:00 IMPRESSION: 1. Small bowel obstruction with transition point in the left mid abdomen. This may be a high-grade partial obstruction. Distal small bowel and colon are decompressed. 2. Marked urinary bladder distention, suggestive of bladder outlet obstruction. Clinical correlation is recommended. 3. Loculated right hydropneumothorax and small left pleural effusion, not significantly changed. Compressive atelectasis at the lung bases. 4. Moderate ascites, slightly decreased from previous examination. 5. Mildly nodular contour of the liver, nonspecific however could indicate underlying hepatic cirrhosis. Clinical correlation is with recommended. 6. Diffuse subcutaneous edema, suggestive of fluid overload. 7. Colonic diverticulosis without evidence of diverticulitis. KUB X-Ray 06/22/20 00:00 IMPRESSION: Partial small bowel obstruction Chest CT 06/25/20 00:00 IMPRESSION: Loculated right hydropneumothorax which appears similar at the right lung base from the abdominal CT dated 06/17/2020. Slight interval increase in left pleural effusion. Moderate ascites with a similar nonspecific nodular hepatic contour and slight heterogeneous hepatic attenuation. Paracentesis Ultrasound 07/01/20 08:26 IMPRESSION: SUCCESSFUL ULTRASOUND GUIDED PARACENTESIS. Chest X-Ray 07/03/20 10:49 IMPRESSION: STABLE APPEARANCE OF THE CHEST. SUPPORT DEVICES UNCHANGED. Assessment and Plan - Diagnosis (1) COVID-19 virus detected Is this a current diagnosis for this admission?: Yes Plan: Short of breath, tachypneic, increasing oxygen requirement from 1.5 to 6 L nasal cannula. Saturating 100%. Repeat CXR stable appearance as per radiologist, but upon my observation there are some new opacities on the left lobe. Elevated CRP and d-dimer. Day 3 IV antibiotics. Day 3 IV azithromycin. Day 2 IV cefepime. Day 3 IV dexamethasone. Day 3 IV Remdisivr. Received 2 days of IV ceftriaxone. Patient has given his consent to get him a effervescent plasma. We will try to get him approved for some plasma. Continue empiric IV azithromycin, IV ceftriaxone, IV dexamethasone, Remdisivir, p.o. zinc sulfate and p.o. vitamin C. already on heparin being bridged to Coumadin. Patient has had prolonged hospitalization here at [facility] and has extensive underlying comorbidities not sure if patient will do very well with coinfection. Low threshold for intubation. (2) Infected chest wall abrasion Qualifiers: Encounter type: initial encounter Laterality: right Qualified Code(s): S20.311A - Abrasion of right front wall of thorax, initial encounter; L08.9 - Local infection of the skin and subcutaneous tissue, unspecified Is this a current diagnosis for this admission?: Yes Plan: There is erythema and discharge at the site of chest tube insertion. Will start on empiric IV antibiotics, wound culture and wound care. We will consult surgery for evaluation. (3) Small bowel obstruction Is this a current diagnosis for this admission?: Yes Plan: Resolved. Passing flatus, having small bowel meds. Tolerating clear liquids. CT abdomen positive for high-grade partial obstruction on CT with a transition point in the left mid abdomen. KUB shows persistent mildly dilated loops of small bowel to the left of midline. Gas and fecal material in the rectum. KUB shows persistent small bowel obstruction. NG tube discontinued. Advance to soft/low residue liquids. Continue Colace and MiraLax daily. Monitor electrolytes and volume status. (4) Ventricular tachyarrhythmia Is this a current diagnosis for this admission?: Yes Plan: Sinus rhythm. On beta-blockers. 07/03/2020 patient again went into V. tach and was a started on amiodarone. Currently sinus rhythm. On admission was noticed to have wide-complex tachycardia at the rate of 220 reported by EMS, status post 100 J shock. As per cardiology note patient is a will require implantable cardioverter defibrillator however he is not a candidate given his multiorgan failure and nutritional status. Cardiology consulted. Recommendation at this time is medical management and optimizing electrolytes. Reconsult cardiology at time of discharge. (5) DEMETRIUS (acute kidney injury) Is this a current diagnosis for this admission?: Yes Plan: Chronic renal failure. History of end-stage renal disease. Nephrology is consulted; receiving scheduled hemodialysis. Spoke w/ Dr. Rush, patient will require chronic dialysis following discharge. Monitor volume status. Monitor electrolytes and replace as needed. Mccall in place for strict I&Os (6) Ascites Qualifiers: Ascites type: due to alcoholic cirrhosis Qualified Code(s): K70.31 - Alcoholic cirrhosis of liver with ascites Is this a current diagnosis for this admission?: Yes Plan: Continue furosemide and spironolactone. Nephrology consulted for dialysis. Agrees to palliative paracentesis. Status post paracentesis on 07/01/2020. On heparin being bridged back to Coumadin. (7) COPD (chronic obstructive pulmonary disease) Qualifiers: COPD type: unspecified COPD Qualified Code(s): J44.9 - Chronic obstructive pulmonary disease, unspecified Is this a current diagnosis for this admission?: Yes Plan: Does not appear to be acutely exacerbated. No indications for antibiotic or steroid therapy at this time. We will decrease frequency of scheduled nebs. (8) Hydrothorax Is this a current diagnosis for this admission?: Yes Plan: Resolved. History of recurrent pleural effusion. Patient had a chest tube placed on the right chest. Status post chest tube removal on 06/17/2020. s/p pleurodesis. Repeat CT as above. Analgesics as needed. Encourage pulmonary toilet with incentive spirometer, flutter valve, position change. Monitor vitals. (9) Pneumothorax, iatrogenic Is this a current diagnosis for this admission?: Yes Plan: Resolved. Status post pleurodesis by surgery. SPO2 WNL on RA. Repeat chest x-ray shows resolution of pneumothorax. 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 proBNP 16,800 on admission. (06/07/2020) 2D echo ejection fraction 25 to 30% with moderate pulmonary hypertension. Mechanical mitral valve.Per previous physician Continue cardiac diet, beta-blockers, Aldactone, furosemide. Cardiology previously consulted; have signed off. Reconsult as necessary and at time of discharge to arrange for LifeVest. (11) Atrial fibrillation Qualifiers: Atrial fibrillation type: longstanding persistent Qualified Code(s): I48.11 - Longstanding persistent atrial fibrillation Is this a current diagnosis for this admission?: Yes Plan: Sinus rhythm. Rate controlled. Was initially on heparin drip and transitioned to Coumadin. INR supratherapeutic; 5.15-> 3.91-> 2.05 Continue to monitor on telemetry. Continue beta-blockers Coumadin resumed; pharmacy to dose. Will bridge w/ Lovenox. Cardiology previous consulted; have signed off. Reconsult as needed. (12) Mechanical heart valve present Is this a current diagnosis for this admission?: Yes Plan: History of aortic stenosis status post mechanical valve placement on Saturday patient hospitalization was complicated by PEA and remained in hospital for 3 to 4 months and [facility]. As per recent echo mechanical valve functioning properly. Anticoagulated. On heparin bridge to Coumadin. Goal of INR 2.5-3.5. (13) Hypoglycemia Is this a current diagnosis for this admission?: Yes Plan: Noted to be hypoglycemic again. Patient is p.o. tolerant. We will start on D5NS and hypoglycemic protocol. Encourage p.o. intake. (14) Depression with anxiety Is this a current diagnosis for this admission?: Yes Plan: Denies any homicidal or suicidal ideation. Continue Remeron to help him sleep and increase his appetite also treated depression. PRN Ativan. - Time Time Spent with patient: 25-34 minutes Medications reviewed and adjusted accordingly: Yes Anticipated Discharge [facility] Anticipated Discharge Timeframe: within 72 hours
[2020-07-05] MEDS: MIRTAZAPINE 15 MG TABLET PO SCH (21:47)
[2020-07-05] MEDS: PHARMACY COMMUNICATION ORDER MC SCH (21:48)
[2020-07-05] MEDS: ATORVASTATIN CALCIUM 40 MG TABLET PO SCH (21:49)
[2020-07-05] MEDS: REMDESIVIR (EUA) 100 MG in NORMAL SALINE 250 ML IV SCH (21:50)
[2020-07-05] MEDS: DEXTROSE 5%-NORMAL SALINE 1,000 ML IV PRN (21:54)
[2020-07-06] MEDS ORDERED: NORMAL SALINE 1000 ML 1,000 ML IV PRN (05:00)
[2020-07-06] MEDS ORDERED: HEPARIN SOD (PORCINE) 1,000 UNIT/ML 10 ML VIAL IV PRN (05:00)
[2020-07-06] MEDS ORDERED: DILTIAZEM HCL INJ 25 MG/5 ML VIAL ONE (05:16)
[2020-07-06 05:54] LABS: HEMATOCRIT 37.7 % (37.9-51.0); HEMOGLOBIN 12.4 g/dL (13.5-17.0); MEAN CORPUSCULAR HEMOGLOBIN 28.2 pg (27.0-33.4); MEAN CORPUSCULAR HGB CONC 33.1 g/dL (32.0-36.0); MEAN CORPUSCULAR VOLUME 85 fl (80-97); PLATELET COUNT 157 10^3/uL (150-450); RED BLOOD COUNT 4.41 10^6/uL (4.35-5.55); RED CELL DISTRIBUTION WIDTH 19.6 % (11.5-14.0); WHITE BLOOD COUNT 14.4 10^3/uL (4.0-10.5)
[2020-07-06 05:55] LABS: INTERNATIONAL RATION (INR) 1.73; PROTHROMBIN TIME 20.4 SEC (11.4-15.4)
[2020-07-06 06:15] LABS: ALBUMIN 2.6 g/dL (3.5-5.0); ALKALINE PHOSPHATASE 175 U/L (38-126); ANION GAP 8 (5-19); ASPARTATE AMINO TRANSFERASE 56 U/L (17-59); BILIRUBIN,DIRECT 0.5 mg/dL (0.0-0.4); BLOOD UREA NITROGEN 28 mg/dL (7-20); CALCIUM 7.8 mg/dL (8.4-10.2); CARBON DIOXIDE 26 mmol/L (22-30); CHLORIDE 96 mmol/L (98-107); GLUCOSE 129 mg/dL (75-110); PHOSPHORUS 3.5 mg/dL (2.5-4.5); POTASSIUM 4.1 mmol/L (3.6-5.0); TOTAL PROTEIN 5.9 g/dL (6.3-8.2)
[2020-07-06] MEDS: MIDODRINE HCL 5 MG TABLET PO SCH ×3 (07:00→22:34)
[2020-07-06] MEDS: DEXAMETHASONE SOD PHOSPHATE INJ 4 MG/1 ML VIAL IV SCH ×3 (07:00→22:27)
[2020-07-06] MEDS: PANTOPRAZOLE SODIUM 40 MG TABLET.DR PO SCH ×2 (07:01→16:51)
[2020-07-06] MEDS ORDERED: VANCOMYCIN HCL 0 MG in DEXTROSE 5%-WATER 250 ML IV NR (07:30)
[2020-07-06] MEDS ORDERED: LEVOFLOXACIN 750 MG/D5W RTU 750 MG/150 ML RTUPB IV ONE (08:30)
[2020-07-06] MEDS: IPRATROPIUM BROMIDE 0.02% NEB 0.5 MG/2.5 ML AMPUL NEB SCH ×3 (08:43→20:08)
[2020-07-06] MEDS ORDERED: DILTIAZEM HCL INJ 25 MG/5 ML VIAL IV ONE (09:30)
[2020-07-06] MEDS ORDERED: LEVOFLOXACIN 250 MG/D5W RTU 250 MG/50 ML RTUPB IV SCH (10:00)
[2020-07-06] MEDS: INSULIN LISPRO 100 UNIT/ML 3 ML VIAL SUBCUT SCH ×4 (10:29→23:01)
[2020-07-06] MEDS: ASCORBIC ACID 500 MG TABLET PO SCH ×2 (10:30→17:15)
[2020-07-06] MEDS: ASPIRIN 81 MG TABLET, CHEWABLE PO SCH (10:30)
[2020-07-06] MEDS: METOPROLOL TARTRATE 50 MG TABLET PO SCH ×2 (10:30→22:33)
[2020-07-06] MEDS: FUROSEMIDE 20 MG TABLET PO SCH (10:30)
[2020-07-06] MEDS: SPIRONOLACTONE 25 MG TABLET PO SCH (10:30)
[2020-07-06] MEDS: DOCUSATE SODIUM 100 MG CAPSULE PO SCH ×2 (10:30→17:14)
[2020-07-06] MEDS: LIDOCAINE 5% (700 MG) TRANSDERMAL ADH..PATCH TP SCH (10:31)
[2020-07-06] MEDS: BISACODYL 10 MG SUPP.RECT PR SCH (10:31)
[2020-07-06] MEDS: POLYETHYLENE GLYCOL 3350 POWDER 17 GM/1 PACKET PO SCH (10:31)
[2020-07-06] MEDS: FLUTICASONE NASAL SPRAY 50 MCG/SPRY 120 SPRAY/16 GM NASL SCH (10:31)
[2020-07-06] MEDS: ZINC SULFATE 220 MG CAPSULE PO SCH (10:32)
[2020-07-06] MEDS: AZITHROMYCIN 500 MG in DEXTROSE 5%-WATER 250 ML IV SCH (10:32)
[2020-07-06] MEDS: DEXTROSE 5%-NORMAL SALINE 1,000 ML IV PRN (10:36)
--- NOTE | 2020-07-06 11:27 | PDOC PROGRESS REPORT ---
Subjective Progress Note for:: 07/06/20 Subjective:: 59-year-old male with a history of recurrent/persistent right pleural effusion, requiring pleurodesis. I was called to evaluate the CT scan of the right lateral chest wall, at the site of chest tube insertion. The patient has devascularization of the tissue at this area. He reports some drainage at the area. He denies any pain. He relates to me that he "feels better today than he has in a long time". No chest pain, shortness of breath, nausea, vomiting, abd ominal pain, abdominal distention, headache, dizziness. Reason For Visit: COVID-19, ESR, V-TACH Physical Exam Vital Signs: Temp Pulse Resp BP Pulse Ox 97.5 F 117 H 16 104/73 98 07/06/20 03:59 07/06/20 08:43 07/06/20 08:43 07/06/20 03:59 07/06/20 08:43 Intake & Output 07/05/20 07/06/20 07/07/20 06:59 06:59 06:59 Intake Total 2506 2625 1408 Output Total 2760 900 2000 Balance -254 1725 -592 Weight 62.6 kg 62 kg General appearance: PRESENT: no acute distress, thin Head exam: PRESENT: atraumatic, normocephalic Eye exam: PRESENT: EOMI, PERRLA. ABSENT: scleral icterus Mouth exam: PRESENT: other - Mask in place Neck exam: ABSENT: tracheal deviation, tracheostomy Respiratory exam: PRESENT: unlabored, other - 1 cm x 1 cm area of devascularized/necrotic skin and fatty soft tissue of the right lateral chest wall. No purulent material is present.. ABSENT: tachypnea Cardiovascular exam: PRESENT: tachycardia - Mild Vascular exam: PRESENT: normal capillary refill GI/Abdominal exam: PRESENT: distended - Mild, soft. ABSENT: tenderness Rectal exam: PRESENT: deferred Extremities exam: ABSENT: clubbing Musculoskeletal exam: ABSENT: deformity Neurological exam: PRESENT: alert, awake, oriented to person, oriented to place, oriented to time, oriented to situation, CN II-XII grossly intact Psychiatric exam: ABSENT: agitated, anxious, depressed Focused psych exam: ABSENT: delusional Skin exam: PRESENT: other - See chest exam. ABSENT: cyanosis Results Laboratory Results: 07/06/20 04:45 07/06/20 04:45 07/04/20 07/05/20 07/06/20 15:47 15:40 04:45 WBC 14.4 H RBC 4.41 Hgb 12.4 L Hct 37.7 L MCV 85 MCH 28.2 MCHC 33.1 RDW 19.6 H Plt Count 157 Sodium 128.1 L Potassium 4.3 Chloride 93 L Carbon Dioxide 26 Anion Gap 9 BUN 25 H Creatinine 1.44 H Est GFR ( Amer) > 60 Glucose 133 H Calcium 7.9 L Phosphorus Magnesium 2.1 Total Bilirubin 1.1 AST 40 Alkaline Phosphatase 188 H Total Protein 6.3 Albumin 2.6 L Blood Type O POSITIVE Antibody Screen NEGATIVE 07/06/20 04:45 WBC RBC Hgb Hct MCV MCH MCHC RDW Plt Count Sodium 129.7 L Potassium 4.1 Chloride 96 L Carbon Dioxide 26 Anion Gap 8 BUN 28 H Creatinine 1.46 H Est GFR ( Amer) > 60 Glucose 129 H Calcium 7.8 L Phosphorus 3.5 Magnesium 1.9 Total Bilirubin 1.0 AST 56 Alkaline Phosphatase 175 H Total Protein 5.9 L Albumin 2.6 L Blood Type Antibody Screen 07/04/20 18:35 Chest - Right Side Gram Stain - Final 07/04/20 18:35 Chest - Right Side Wound Culture - Final Staphylococcus Aureus Stenotrophomonas Maltophilia 07/01/20 14:55 Ascities Fluid Gram Stain - Final 07/01/20 14:55 Ascities Fluid Body Fluid Culture - Final NO AEROBIC OR ANAEROBIC ORGANISMS RECOVERED 06/07/20 06/07/20 06/07/20 12:24 12:24 15:08 Creatine Kinase 34 L CK-MB (CK-2) Troponin I 0.035 0.041 NT-Pro-B Natriuret Pep 06/07/20 06/07/20 06/08/20 16:45 22:01 05:25 Creatine Kinase 35 L 40 L 35 L CK-MB (CK-2) Troponin I NT-Pro-B Natriuret Pep 06/08/20 06/29/20 06/29/20 05:25 07:30 07:30 Creatine Kinase 27 L CK-MB (CK-2) 1.04 Troponin I 0.028 NT-Pro-B Natriuret Pep 90944 H 06/29/20 06/29/20 06/29/20 15:11 15:11 20:37 Creatine Kinase 39 L CK-MB (CK-2) 2.04 Troponin I 0.142 0.166 NT-Pro-B Natriuret Pep 06/30/20 05:00 Creatine Kinase CK-MB (CK-2) Troponin I 0.119 NT-Pro-B Natriuret Pep Impressions: Head CT 06/07/20 13:02 IMPRESSION: Stable CT of the brain with bifrontal encephalomalacia. No acute intracranial event. EVIDENCE OF ACUTE STROKE: NO. Thoracentesis Ultrasound 06/08/20 00:00 IMPRESSION: SUCCESSFUL THORACENTESIS AND CHEST TUBE PLACEMENT USING ULTRASOUND GUIDANCE. Abdomen/Pelvis CT 06/17/20 00:00 IMPRESSION: 1. Small bowel obstruction with transition point in the left mid abdomen. This may be a high-grade partial obstruction. Distal small bowel and colon are decompressed. 2. Marked urinary bladder distention, suggestive of bladder outlet obstruction. Clinical correlation is recommended. 3. Loculated right hydropneumothorax and small left pleural effusion, not significantly changed. Compressive atelectasis at the lung bases. 4. Moderate ascites, slightly decreased from previous examination. 5. Mildly nodular contour of the liver, nonspecific however could indicate underlying hepatic cirrhosis. Clinical correlation is with recommended. 6. Diffuse subcutaneous edema, suggestive of fluid overload. 7. Colonic diverticulosis without evidence of diverticulitis. KUB X-Ray 06/22/20 00:00 IMPRESSION: Partial small bowel obstruction Chest CT 06/25/20 00:00 IMPRESSION: Loculated right hydropneumothorax which appears similar at the right lung base from the abdominal CT dated 06/17/2020. Slight interval increase in left pleural effusion. Moderate ascites with a similar nonspecific nodular hepatic contour and slight heterogeneous hepatic attenuation. Paracentesis Ultrasound 07/01/20 08:26 IMPRESSION: SUCCESSFUL ULTRASOUND GUIDED PARACENTESIS. Chest X-Ray 07/03/20 10:49 IMPRESSION: STABLE APPEARANCE OF THE CHEST. SUPPORT DEVICES UNCHANGED. Assessment & Plan - Diagnosis (1) Hydrothorax Is this a current diagnosis for this admission?: Yes (2) Skin necrosis Is this a current diagnosis for this admission?: Yes - Time Anticipated Discharge Disposition: unknown Anticipated Discharge Timeframe: unknown - Plan Summary Plan Summary: 59-year-old male status post chemical pleurodesis. He has necrotic skin and fatty soft tissue at the chest tube insertion site. There is no obvious purulence, however there is deep vitalized/devascularized tissue. The necrotic tissue will require excisional debridement at the bedside today. Afterwards, perform damp to dry dressing changes twice daily.
--- NOTE | 2020-07-06 11:30 | Operative Report ---
Nonrecallable Operative Report DATE OF SURGERY: 07/06/20 PREOPERATIVE DIAGNOSIS: Necrotic skin and fatty soft tissue of the right lateral chest wall, 1 cm x 1 cm x 1 cm. POSTOPERATIVE DIAGNOSIS: Same as above OPERATION: Excisional debridement of skin and fatty soft tissues of the right lateral chest wall, 1 cm x 1 cm x 1 cm. SURGEON: RUIZ BENDER ANESTHESIA: Other - None TISSUE REMOVED OR ALTERED: Necrotic skin and fatty soft tissue of the right lateral chest wall COMPLICATIONS: None apparent ESTIMATED BLOOD LOSS: Minimal PROCEDURE: Drains/implants: None. Procedure in detail: After verbal consent was obtained from the patient, the right lateral chest wall was inspected. There was devascularized, insensate skin and fatty soft tissue at the area where the previous chest tube had been placed. There were several sutures that remained in the chest wall. These were removed. The devascularized skin and fatty soft tissue were excised using sharp dissection (scissors). The remaining tissue appeared viable. A dressing was then placed, and the procedure was concluded. All sponge, instrument, and needl e counts were correct x2. Recommendation: Damp to dry dressing changes twice daily. Overall prognosis is poor.
--- NOTE | 2020-07-06 14:21 | RADIOLOGY REPORT (SQ) ---
EXAM DESCRIPTION: CHEST SINGLE VIEW IMAGES COMPLETED DATE/TIME: 07/06/2020 2:09 pm REASON FOR STUDY: central line placement COMPARISON: AP view of the chest from 07/03/2020. EXAM PARAMETERS: NUMBER OF VIEWS: One view. TECHNIQUE: An AP view of the chest was obtained. RADIATION DOSE: NA LIMITATIONS: None. FINDINGS: LUNGS AND PLEURA: Unchanged radiographic appearance of the lungs and pleura. MEDIASTINUM AND HILAR STRUCTURES: Stable mediastinal and hilar contours. HEART AND VASCULAR STRUCTURES: Unchanged cardiac silhouette. BONES: No acute findings. HARDWARE: The tip of the left-sided tunnel hemodialysis catheter projects at the level of the cavoatr ial junction. The tip of the newly placed right subclavian vein approach central venous catheter pro jects within the right atrium. There is re- demonstration of sternotomy wires, of a cardiac valve pr osthesis and of an implantable loop recorder. OTHER: No other finding. IMPRESSION: The tip of the newly placed right subclavian vein approach central venous catheter proje cts within the right atrium. There is no postprocedural pneumothorax. TECHNICAL DOCUMENTATION: JOB ID: [id number] [employer]- All Rights Reserved Reading location - IP/workstation name: [email or web address]
--- NOTE | 2020-07-06 15:55 | PDOC PROGRESS REPORT ---
Subjective Progress Note for:: 07/06/20 Subjective:: Pavel Lepe 59-year-old male past medical history of CHF ejection fraction of 20 to 25%, status post leadless permanent pacemaker, atrial fibrillation on Coumadin, recurrent pleural effusion and pneumothorax, mitral valve replacement at [place] which was complicated patient had to stay in the hospital for 4 months. Postoperatively patient had a PEA cardiac arrest and had renal failure and was discharged on hemodialysis was brought to ED by EMS after being found unresponsive and noted to be in V. tach, was given a shock of 100 J successful. 06/29/2020. This morning patient was noted to be very tachycardic and short of breath while receiving hemodialysis, was given 1 dose of IV metoprolol which helped her heart rate, respiratory symptoms also improved post hemodialysis, patient is tolerating some p.o. feeds, passing flatus and having small bowel movements, still short of breath and distended abdomen, abdomen hypoactive, NG tube is out, denies any fever, chills, nausea, abdominal pain or any urinary symptoms. Patient is pending paracentesis and thoracentesis by radiology however patient INR still too high. Currently on heparin drip. 06/30/2020. No acute events overnight. Patient still complaining of shortness of breath however chest pain has resolved, troponins trending down, and Dr. Garcia site worker has seen patient and as per her note patient is not a candidate for any cardiac intervention due to multiple underlying comorbidities, patient denies any nausea, vomiting, diarrhea, constipation. Denies any fever. 07/01/2020. Saw patient this evening, he is just back from radiology after undergoing paracentesis and thoracentesis, stating that he is very hungry and asking for food, abdominal distention of improved and his shortness of breath also improving, patient denies any chest pain, nausea, vomiting, diarrhea. Alert and oriented x3. 07/02/2020. No acute events overnight. This morning patient was complaining of pain, received 1 dose of Ativan which helped significantly, patient also mentioning that he is depressed however denies any suicidal or homicidal ideation, patient likes to sit in the recliner, patient is tolerating his p.o. intake, no abdominal pain has resolved, patient having normal bowel and bladder movements. Patient is pending transfer to rehab. 07/03/2020. Overnight patient was running V. tach and was a started on amiodarone, V. tach resolved but unfortunately this morning patient was complaining of shortness of breath and anxiety, rapid COVID test came back positive, patient may have likely been exposed during dialysis last Saturday, patient is coughing however denies any fever, chest pain, nausea or vomiting, he still p.o. tolerant and having normal bowel movements. Patient was moved to ICU as there is no room available in COVID unit. 07/04/2020. Saw patient this morning while receiving hemodialysis in ICU, patient is awake and alert however seems very weak, patient still wants to limit full code and has given me permission to get him effervescent plasma if possible, denies any fever, chills, chest pain or shortness of breath. On 6 L nasal cannula saturating 100%. 07/05/2020. Saw patient this morning, complaining of being cold, endorsing low appetite, otherwise denies any chest pain, shortness of breath, nausea, vomiting. 07/06/2020. No acute events overnight. Patient has been transferred back to third floor, today patient got triple-lumen catheter so he could be started on TPN as patient is losing weight and has not been eating much, patient oxygen requirement has not changed much, still afebrile but has leukocytosis which could be due to IV steroids, denies any fever, chills, nausea, vomiting, diarrhea, constipation. Reason For Visit: COVID-19, ESR, V-TACH Physical Exam Vital Signs: Temp Pulse Resp BP Pulse Ox 97.5 F 112 H 16 104/75 100 07/06/20 11:32 07/06/20 11:32 07/06/20 11:32 07/06/20 11:32 07/06/20 11:32 Intake & Output 07/05/20 07/06/20 07/07/20 06:59 06:59 06:59 Intake Total 2506 2625 1468 Output Total 2760 900 2100 Balance -254 1725 -632 Weight 62.6 kg 62 kg General appearance: PRESENT: no acute distress, well-developed, well-nourished Head exam: PRESENT: atraumatic, normocephalic Respiratory exam: PRESENT: clear to auscultation [place], other - Right lateral chest necrotic fat tissue with clear drainage.. ABSENT: rales, rhonchi, wheezes Cardiovascular exam: PRESENT: RRR. ABSENT: diastolic murmur, rubs, systolic murmur Neurological exam: PRESENT: alert, awake, oriented to person, oriented to place, oriented to time, oriented to situation, CN II-XII grossly intact. ABSENT: motor sensory deficit Results Laboratory Results: 07/06/20 04:45 07/06/20 04:45 07/04/20 07/05/20 07/06/20 15:47 15:40 04:45 WBC 14.4 H RBC 4.41 Hgb 12.4 L Hct 37.7 L MCV 85 MCH 28.2 MCHC 33.1 RDW 19.6 H Plt Count 157 Sodium 128.1 L Potassium 4.3 Chloride 93 L Carbon Dioxide 26 Anion Gap 9 BUN 25 H Creatinine 1.44 H Est GFR ( Amer) > 60 Glucose 133 H Calcium 7.9 L Phosphorus Magnesium 2.1 Total Bilirubin 1.1 AST 40 Alkaline Phosphatase 188 H Total Protein 6.3 Albumin 2.6 L Blood Type O POSITIVE Antibody Screen NEGATIVE 07/06/20 04:45 WBC RBC Hgb Hct MCV MCH MCHC RDW Plt Count Sodium 129.7 L Potassium 4.1 Chloride 96 L Carbon Dioxide 26 Anion Gap 8 BUN 28 H Creatinine 1.46 H Est GFR ( Amer) > 60 Glucose 129 H Calcium 7.8 L Phosphorus 3.5 Magnesium 1.9 Total Bilirubin 1.0 AST 56 Alkaline Phosphatase 175 H Total Protein 5.9 L Albumin 2.6 L Blood Type Antibody Screen 07/04/20 18:35 Chest - Right Side Gram Stain - Final 07/04/20 18:35 Chest - Right Side Wound Culture - Final Staphylococcus Aureus Stenotrophomonas Maltophilia 07/01/20 14:55 Ascities Fluid Gram Stain - Final 07/01/20 14:55 Ascities Fluid Body Fluid Culture - Final NO AEROBIC OR ANAEROBIC ORGANISMS RECOVERED 06/07/20 06/07/20 06/07/20 12:24 12:24 15:08 Creatine Kinase 34 L CK-MB (CK-2) Troponin I 0.035 0.041 NT-Pro-B Natriuret Pep 06/07/20 06/07/20 06/08/20 16:45 22:01 05:25 Creatine Kinase 35 L 40 L 35 L CK-MB (CK-2) Troponin I NT-Pro-B Natriuret Pep 06/08/20 06/29/20 06/29/20 05:25 07:30 07:30 Creatine Kinase 27 L CK-MB (CK-2) 1.04 Troponin I 0.028 NT-Pro-B Natriuret Pep 39469 H 06/29/20 06/29/20 06/29/20 15:11 15:11 20:37 Creatine Kinase 39 L CK-MB (CK-2) 2.04 Troponin I 0.142 0.166 NT-Pro-B Natriuret Pep 06/30/20 05:00 Creatine Kinase CK-MB (CK-2) Troponin I 0.119 NT-Pro-B Natriuret Pep Impressions: Head CT 06/07/20 13:02 IMPRESSION: Stable CT of the brain with bifrontal encephalomalacia. No acute intracranial event. EVIDENCE OF ACUTE STROKE: NO. Thoracentesis Ultrasound 06/08/20 00:00 IMPRESSION: SUCCESSFUL THORACENTESIS AND CHEST TUBE PLACEMENT USING ULTRASOUND GUIDANCE. Abdomen/Pelvis CT 06/17/20 00:00 IMPRESSION: 1. Small bowel obstruction with transition point in the left mid abdomen. This may be a high-grade partial obstruction. Distal small bowel and colon are decompressed. 2. Marked urinary bladder distention, suggestive of bladder outlet obstruction. Clinical correlation is recommended. 3. Loculated right hydropneumothorax and small left pleural effusion, not significantly changed. Compressive atelectasis at the lung bases. 4. Moderate ascites, slightly decreased from previous examination. 5. Mildly nodular contour of the liver, nonspecific however could indicate underlying hepatic cirrhosis. Clinical correlation is with recommended. 6. Diffuse subcutaneous edema, suggestive of fluid overload. 7. Colonic diverticulosis without evidence of diverticulitis. KUB X-Ray 06/22/20 00:00 IMPRESSION: Partial small bowel obstruction Chest CT 06/25/20 00:00 IMPRESSION: Loculated right hydropneumothorax which appears similar at the right lung base from the abdominal CT dated 06/17/2020. Slight interval increase in left pleural effusion. Moderate ascites with a similar nonspecific nodular hepatic contour and slight heterogeneous hepatic attenuation. Paracentesis Ultrasound 07/01/20 08:26 IMPRESSION: SUCCESSFUL ULTRASOUND GUIDED PARACENTESIS. Chest X-Ray 07/06/20 00:00 IMPRESSION: The tip of the newly placed right subclavian vein approach central venous catheter projects within the right atrium. There is no postprocedural pneumothorax. Assessment and Plan - Diagnosis (1) COVID-19 virus detected Is this a current diagnosis for this admission?: Yes Plan: Short of breath, tachypneic, increasing oxygen requirement from 1.5 to 6 L nasal cannula. Saturating 100%. Repeat CXR stable appearance as per radiologist, but upon my observation there are some new opacities on the left lobe. Elevated CRP and d-dimer. Day 4 IV antibiotics. Day 4 IV azithromycin. Day 1 IV levofloxacin. Day 4 IV dexamethasone. Day 4 IV Remdisivr. Received 2 days of IV ceftriaxone. Received 2 days of IV ceftriaxone. Status post effervescent plasma infusion on 07/05/2020. Continue empiric IV azithromycin, IV ceftriaxone, IV dexamethasone, Remdisivir, p.o. zinc sulfate and p.o. vitamin C. already on heparin being bridged to Coumadin. Patient has had prolonged hospitalization here at [facility] and [facility] and has extensive underlying comorbidities not sure if patient will do very well with coinfection. Low threshold for intubation. (2) Infection of chest Is this a current diagnosis for this admission?: Yes (3) Malnutrition Qualifiers: Malnutrition type: protein-calorie malnutrition Protein-calorie malnutrition severity: moderate Qualified Code(s): E44.0 - Moderate protein- calorie malnutrition Is this a current diagnosis for this admission?: Yes Plan: Patient has a normal BMI however looks very emaciated and weak. Patient has been p.o. tolerant however does not eat much due to extreme weakness was also noted to aspirate on water. Currently n.p.o. on TPN pending speech therapy swallowing evaluation. Continue TPN while pending a speech therapy evaluation. We will consult carpenter repairer. Patient will need aggressive rehab once he is discharged from inpatient care. (4) Small bowel obstruction Is this a current diagnosis for this admission?: Yes Plan: Resolved. Passing flatus, having small bowel meds. Tolerating clear liquids. CT abdomen positive for high-grade partial obstruction on CT with a transition point in the left mid abdomen. KUB shows persistent mildly dilated loops of small bowel to the left of midline. Gas and fecal material in the rectum. KUB shows persistent small bowel obstruction. NG tube discontinued. Advance to soft/low residue liquids. Continue Colace and MiraLax daily. Monitor electrolytes and volume status. (5) Ventricular tachyarrhythmia Is this a current diagnosis for this admission?: Yes Plan: Sinus rhythm. On beta-blockers. 07/03/2020 patient again went into V. tach and was a started on amiodarone. Currently sinus rhythm. On admission was noticed to have wide-complex tachycardia at the rate of 220 reported by EMS, status post 100 J shock. As per cardiology note patient is a will require implantable cardioverter defibrillator however he is not a candidate given his multiorgan failure and nu tritional status. Cardiology consulted. Recommendation at this time is medical management and opt imizing electrolytes. Reconsult cardiology at time of discharge. (6) DEMETRIUS (acute kidney injury) Is this a current diagnosis for this admission?: Yes Plan: Chronic renal failure. History of end-stage renal disease. Nephrology is consulted; receiving scheduled hemodialysis. Spoke w/ Dr. Rush, patient will require chronic dialysis following discharge. Monitor volume status. Monitor electrolytes and replace as needed. Mccall in place for strict I&Os (7) Ascites Qualifiers: Ascites type: due to alcoholic cirrhosis Qualified Code(s): K70.31 - Alcoholic cirrhosis of liver with ascites Is this a current diagnosis for this admission?: Yes Plan: Continue furosemide and spironolactone. Nephrology consulted for dialysis. Agrees to palliative paracentesis. Status post paracentesis on 07/01/2020. On heparin being bridged back to Coumadin. (8) COPD (chronic obstructive pulmonary disease) Qualifiers: COPD type: unspecified COPD Qualified Code(s): J44.9 - Chronic obstructive pulmonary disease, unspecified Is this a current diagnosis for this admission?: Yes Plan: Does not appear to be acutely exacerbated. No indications for antibiotic or steroid therapy at this time. We will decrease frequency of scheduled nebs. (9) Hydrothorax Is this a current diagnosis for this admission?: Yes Plan: Resolved. History of recurrent pleural effusion. Patient had a chest tube placed on the right chest. Status post chest tube removal on 06/17/2020. s/p pleurodesis. Repeat CT as above. Analgesics as needed. Encourage pulmonary toilet with incentive spirometer, flutter valve, position change. Monitor vitals. (10) Pneumothorax, iatrogenic Is this a current diagnosis for this admission?: Yes Plan: Resolved. Status post pleurodesis by surgery. SPO2 WNL on RA. Repeat chest x-ray shows resolution of pneumothorax. (11) CHF (congestive heart failure) Qualifiers: Heart failure type: combined systolic and diastolic Heart failure chronicity: chronic Qualified Code(s): I50.42 - Chronic combined systolic (congestive) and diastolic (congestive) heart failure Is this a current diagnosis for this admission?: Yes Plan: Acutely exacerbated on admission. proBNP 16,800 on admission. (06/07/2020) 2D echo ejection fraction 25 to 30% with moderate pulmonary hypertension. Mechanical mitral valve.Per previous physician Continue cardiac diet, beta-blockers, Aldactone, furosemide. Cardiology previously consulted; have signed off. Reconsult as necessary and at time of discharge to arrange for LifeVest. (12) Atrial fibrillation Qualifiers: Atrial fibrillation type: longstanding persistent Qualified Code(s): I48.11 - Longstanding persistent atrial fibrillation Is this a current diagnosis for this admission?: Yes Plan: Sinus rhythm. Rate controlled. Was initially on heparin drip and transitioned to Coumadin. INR supratherapeutic; 5.15-> 3.91-> 2.05 Continue to monitor on telemetry. Continue beta-blockers Coumadin resumed; pharmacy to dose. Will bridge w/ Lovenox. Cardiology previous consulted; have signed off. Reconsult as needed. (13) Mechanical heart valve present Is this a current diagnosis for this admission?: Yes Plan: History of aortic stenosis status post mechanical valve placement on Saturday patient hospitalization was complicated by PEA and remained in hospital for 3 to 4 months and [facility]. As per recent echo mechanical valve functioning properly. Anticoagulated. On heparin bridge to Coumadin. Goal of INR 2.5-3.5. (14) Hypoglycemia Is this a current diagnosis for this admission?: Yes Plan: Noted to be hypoglycemic again. Patient is p.o. tolerant. We will start on D5NS and hypoglycemic protocol. Encourage p.o. intake. (15) Depression with anxiety Is this a current diagnosis for this admission?: Yes Plan: Denies any homicidal or suicidal ideation. Continue Remeron to help him sleep and increase his appetite also treated depression. PRN Ativan. - Time Time Spent with patient: 35 or more minutes Medications reviewed and adjusted accordingly: Yes Anticipated Discharge [facility]position[facility] Anticipated Discharge Timeframe: when bed available
[2020-07-06] MEDS: HEPARIN SOD (PORCINE) 1,000 UNIT/ML 10 ML VIAL IV PRN (16:52)
[2020-07-06] MEDS: HEPARIN SODIUM,PORCINE/D5W 25,000 UNIT/250 ML RTUINJ IV PRN (16:53)
[2020-07-06] MEDS ORDERED: VANCOMYCIN HCL 1,250 MG in DEXTROSE 5%-WATER 250 ML IV ONE (18:00)
--- NOTE | 2020-07-06 18:06 | PDOC PROGRESS REPORT ---
Subjective Progress Note for:: 07/06/20 Subjective:: I am seeing the patient during dialysis this morning. He had a rough night with episode of SVT. His oxygen requirement is also increased requiring 5 L of oxygen via nasal cannula. When I enter the room the patient is awake and tells me that he is feeling fine and denies shortness of breath at the moment. He seems to be comfortable receiving dialysis and is currently tolerating it. He is still tachycardic though. He did not offer any other complaints now. He was reportedly having some drainage from the previous chest tube site on his right chest chest. Reason For Visit: COVID-19, ESR, V-TACH Physical Exam Vital Signs: Temp Pulse Resp BP Pulse Ox 97.5 F 87 16 104/73 96 07/06/20 03:59 07/06/20 03:59 07/06/20 03:59 07/06/20 03:59 07/06/20 03:59 Intake & Output 07/05/20 07/06/20 07/07/20 06:59 06:59 06:59 Intake Total 2506 2625 Output Total 2760 900 Balance -254 1725 Weight 62.6 kg 62 kg Vitals from dialysis: Blood pressure of 100/84, heart rate of 115, blood flow rate of 250 mL/min and dialysate flow rate of 600 mL/min. Exam: General appearance: PRESENT: no acute distress, cooperative, small framed and fragile looking Head exam: PRESENT: atraumatic, normocephalic Eye exam: PRESENT: conjunctiva pink, PERRLA. ABSENT: scleral icterus Neck exam: ABSENT: JVD Respiratory exam: PRESENT: Coarse breath sounds. Positive diffuse expiratory wheezes and anterior chest [place] diminished breath sounds on the right lower lung [place] ABSENT: crackles, rales, rhonchi, unlabored, wheezes Cardiovascular exam: PRESENT: Regular rate rhythm -+S1, +S2. ABSENT: diastolic murmur, systolic murmur GI/Abdominal exam: PRESENT: normal bowel sounds, soft. ABSENT: guarding, mass, tenderness Extremities exam: [A grade 1 bilateral lower extremity pitting edema Neurological exam: PRESENT: alert, awake, oriented to person, place and time. Skin exam: PRESENT: dry, warm, Cardiovascular exam: PRESENT: +S1, +S2 GI/Abdominal exam: PRESENT: ascites, distended, normal bowel sounds, soft. ABSENT: firm, guarding, organomegaly Results Laboratory Results: 07/06/20 04:45 07/06/20 04:45 07/04/20 07/05/20 07/05/20 15:47 08:15 15:40 WBC RBC Hgb Hct MCV MCH MCHC RDW Plt Count Sodium Cancelled 128.1 L Potassium Cancelled 4.3 Chloride Cancelled 93 L Carbon Dioxide Cancelled 26 Anion Gap Cancelled 9 BUN Cancelled 25 H Creatinine Cancelled 1.44 H Est GFR ( Amer) Cancelled > 60 Est GFR (Non-Af Amer) Cancelled Glucose Cancelled 133 H Calcium Cancelled 7.9 L Phosphorus Magnesium Cancelled 2.1 Total Bilirubin Cancelled 1.1 AST Cancelled 40 Alkaline Phosphatase Cancelled 188 H Total Protein Cancelled 6.3 Albumin Cancelled 2.6 L Blood Type O POSITIVE Antibody Screen NEGATIVE 07/06/20 07/06/20 04:45 04:45 WBC 14.4 H RBC 4.41 Hgb 12.4 L Hct 37.7 L MCV 85 MCH 28.2 MCHC 33.1 RDW 19.6 H Plt Count 157 Sodium 129.7 L Potassium 4.1 Chloride 96 L Carbon Dioxide 26 Anion Gap 8 BUN 28 H Creatinine 1.46 H Est GFR ( Amer) > 60 Est GFR (Non-Af Amer) Glucose 129 H Calcium 7.8 L Phosphorus 3.5 Magnesium 1.9 Total Bilirubin 1.0 AST 56 Alkaline Phosphatase 175 H Total Protein 5.9 L Albumin 2.6 L Blood Type Antibody Screen 07/01/20 14:55 Ascities Fluid Gram Stain - Final 07/01/20 14:55 Ascities Fluid Body Fluid Culture - Final NO AEROBIC OR ANAEROBIC ORGANISMS RECOVERED 06/07/20 06/07/20 06/07/20 12:24 12:24 15:08 Creatine Kinase 34 L CK-MB (CK-2) Troponin I 0.035 0.041 NT-Pro-B Natriuret Pep 06/07/20 06/07/20 06/08/20 16:45 22:01 05:25 Creatine Kinase 35 L 40 L 35 L CK-MB (CK-2) Troponin I NT-Pro-B Natriuret Pep 06/08/20 06/29/20 06/29/20 05:25 07:30 07:30 Creatine Kinase 27 L CK-MB (CK-2) 1.04 Troponin I 0.028 NT-Pro-B Natriuret Pep 19404 H 06/29/20 06/29/20 06/29/20 15:11 15:11 20:37 Creatine Kinase 39 L CK-MB (CK-2) 2.04 Troponin I 0.142 0.166 NT-Pro-B Natriuret Pep 06/30/20 05:00 Creatine Kinase CK-MB (CK-2) Troponin I 0.119 NT-Pro-B Natriuret Pep Impressions: Head CT 06/07/20 13:02 IMPRESSION: Stable CT of the brain with bifrontal encephalomalacia. No acute intracranial event. EVIDENCE OF ACUTE STROKE: NO. Thoracentesis Ultrasound 06/08/20 00:00 IMPRESSION: SUCCESSFUL THORACENTESIS AND CHEST TUBE PLACEMENT USING ULTRASOUND GUIDANCE. Abdomen/Pelvis CT 06/17/20 00:00 IMPRESSION: 1. Small bowel obstruction with transition point in the left mid abdomen. This may be a high-grade partial obstruction. Distal small bowel and colon are decompressed. 2. Marked urinary bladder distention, suggestive of bladder outlet obstruction. Clinical correlation is recommended. 3. Loculated right hydropneumothorax and small left pleural effusion, not significantly changed. Compressive atelectasis at the lung bases. 4. Moderate ascites, slightly decreased from previous examination. 5. Mildly nodular contour of the liver, nonspecific however could indicate underlying hepatic cirrhosis. Clinical correlation is with recommended. 6. Diffuse subcutaneous edema, suggestive of fluid overload. 7. Colonic diverticulosis without evidence of diverticulitis. KUB X-Ray 06/22/20 00:00 IMPRESSION: Partial small bowel obstruction Chest CT 06/25/20 00:00 IMPRESSION: Loculated right hydropneumothorax which appears similar at the right lung base from the abdominal CT dated 06/17/2020. Slight interval increase in left pleural effusion. Moderate ascites with a similar nonspecific nodular hepatic contour and slight heterogeneous hepatic attenuation. Paracentesis Ultrasound 07/01/20 08:26 IMPRESSION: SUCCESSFUL ULTRASOUND GUIDED PARACENTESIS. Chest X-Ray 07/03/20 10:49 IMPRESSION: STABLE APPEARANCE OF THE CHEST. SUPPORT DEVICES UNCHANGED. Assessment & Plan - Diagnosis (1) ESRD (end stage renal disease) on dialysis Is this a current diagnosis for this admission?: Yes Plan: We will do dialysis today for 2.5 hours, using the patient's PermCath, with 142 sodium, 2 potassium bath, blood flow rate of 250 mL per minute, dialysate flow rate of 600 mL per minute, ultrafiltration 1 to 1.5 L as tolerated , no heparin and no Procrit. Patient is being closely monitored throughout dialysis tr eatment especially with hypotension. Patient's urine output was recorded to be 900 mL for the past 24 hours which is an improvement from previous for the last couple weeks. His creatinine has decreased but I think moving forward, with all his other comorbidities and episodes of fluid overload he is better off to stay on dialysis chronically to help manage volume. We will have case management to arrange outpatient chronic dialysis treatment once discharge. (2) COVID-19 virus detected Is this a current diagnosis for this admission?: Yes Plan: Currently being treated since yesterday, July 03 with Remdesivir, vitamin C, Zinc, Dexamethasone, Zithromax and now Levaquin changed from ceftriaxone per hospitalist service. (3) Ventricular tachyarrhythmia Is this a current diagnosis for this admission?: Yes Plan: Per cardiology. Patient continues to have intermittent episodes of V. tach/SVT. (4) Infection of chest Is this a current diagnosis for this admission?: Yes Plan: 1 culture showed positive for staph aureus and Stenotrophomonas Maltophila sensitive to Levaquin. Surgery was consulted again. (5) Bladder outlet obstruction Is this a current diagnosis for this admission?: Yes Plan: Mccall catheter in place currently. Urine output has increased to 900 mL for the last 24 hours.. (6) Small bowel obstruction Is this a current diagnosis for this admission?: Yes Plan: Resolved. (7) Pleural effusion Is this a current diagnosis for this admission?: Yes Plan: Status post thoracentesis, 06/08 with initial chest tube placement. Chest tube placement revised with pleurodesis on Wednesday 06/13. Chest tube removed. 06/17. Chest CT on June 25 showed persistent loculated right hydropneumothorax. (8) CHF (congestive heart failure) Qualifiers: Heart failure type: combined systolic and diastolic Heart failure chronicity: chronic Qualified Code(s): I50.42 - Chronic combined systolic (congestive) and diastolic (congestive) heart failure Is this a current diagnosis for this admission?: Yes Plan: EF of 25 to 30% with moderately reduced right ventricular systolic function. Patient has cardiomyopathy. Cardiology on board. Recommendation includes placement of implantable defibrillator but uncertain if the patient can tolerate the procedure. So for now medical management. (9) Hypotension Qualifiers: Hypotension type: idiopathic hypotension Qualified Code(s): I95.0 - Idiopathic hypotension Is this a current diagnosis for this admission?: Yes Plan: Likely secondary to poor cardiac function and cardiomyopathy. Currently on midodrine. Adrenal insufficiency has been previously ruled out during previous admission. (10) Hyponatremia Is this a current diagnosis for this admission?: Yes Plan: Chronic and stable. Secondary to hypervolemic state with CHF and ESRD. I will adjust sodium in dialysis bath. Appears to be slowly improving with adjustment of sodium in the dialysate solution. (11) Atrial fibrillation Qualifiers: Atrial fibrillation type: longstanding persistent Qualified Code(s): I48.11 - Longstanding persistent atrial fibrillation Is this a current diagnosis for this admission?: Yes Plan: On anticoagulation. (12) Ascites Qualifiers: Ascites type: due to alcoholic cirrhosis Qualified Code(s): K70.31 - Alcoholic cirrhosis of liver with ascites Is this a current diagnosis for this admission?: Yes Plan: Paracentesis was done on Saturday, July 01. (13) Leukocytosis Qualifiers: Leukocytosis type: unspecified Qualified Code(s): D72.829 - Elevated white blood cell count, unspecified Is this a current diagnosis for this admission?: Yes Plan: Starting to increase again which could be due to the acute COVID infection and previous right chest tube skin infection. (14) Pneumothorax, iatrogenic Is this a current diagnosis for this admission?: Yes Plan: Post chest tube placement. (15) H/O mitral valve replacement with mechanical valve Is this a current diagnosis for this admission?: Yes Plan: Currently on warfarin. - Notes Notes: Dr. Godfrey will continue to follow the patient starting tomorrow. - Time Time with patient: 15-25 minutes
[2020-07-06] MEDS: REMDESIVIR (EUA) 100 MG in NORMAL SALINE 250 ML IV SCH (18:33)
[2020-07-06] MEDS: ATORVASTATIN CALCIUM 40 MG TABLET PO SCH (22:33)
[2020-07-06] MEDS: MIRTAZAPINE 15 MG TABLET PO SCH (22:33)
[2020-07-06] MEDS: PHARMACY COMMUNICATION ORDER MC SCH (22:35)
[2020-07-07 05:44] LABS: INTERNATIONAL RATION (INR) 2.37; PROTHROMBIN TIME 25.9 SEC (11.4-15.4)
[2020-07-07] MEDS: DEXAMETHASONE SOD PHOSPHATE INJ 4 MG/1 ML VIAL IV SCH ×3 (05:51→21:30)
[2020-07-07] MEDS: MIDODRINE HCL 5 MG TABLET PO SCH ×3 (05:54→21:31)
[2020-07-07] MEDS: PANTOPRAZOLE SODIUM 40 MG TABLET.DR PO SCH (05:58)
[2020-07-07] MEDS: INSULIN LISPRO 100 UNIT/ML 3 ML VIAL SUBCUT SCH (07:26)
[2020-07-07] MEDS: IPRATROPIUM BROMIDE 0.02% NEB 0.5 MG/2.5 ML AMPUL NEB SCH ×4 (08:02→20:54)
[2020-07-07] MEDS ORDERED: DEXTROSE 40% GEL 15 GM TUBE X 2 PO PRN (09:30)
[2020-07-07] MEDS ORDERED: DEXTROSE 50%-WATER SYRINGE 25 GM/50 ML DOSE IV PRN (09:30)
[2020-07-07] MEDS ORDERED: GLUCAGON,HUMAN RECOMB 1 MG INJ IM PRN (09:30)
[2020-07-07] MEDS ORDERED: DEXTROSE 40% GEL 15 GM TUBE PO PRN (09:30)
[2020-07-07] MEDS ORDERED: DEXTROSE 10%-WATER 1,000 ML IV PRN (09:30)
[2020-07-07] MEDS ORDERED: DEXTROSE 50%-WATER SYRINGE 12.5 GM/25 ML DOSE IV PRN (09:30)
[2020-07-07] MEDS: FAT EMULSIONS 250 ML IV SCH (10:47)
[2020-07-07] MEDS: ASPIRIN 81 MG TABLET, CHEWABLE PO SCH (10:48)
[2020-07-07] MEDS: FLUTICASONE NASAL SPRAY 50 MCG/SPRY 120 SPRAY/16 GM NASL SCH (10:48)
[2020-07-07] MEDS: SPIRONOLACTONE 25 MG TABLET PO SCH (10:48)
[2020-07-07] MEDS: BISACODYL 10 MG SUPP.RECT PR SCH (10:48)
[2020-07-07] MEDS: LIDOCAINE 5% (700 MG) TRANSDERMAL ADH..PATCH TP SCH (10:48)
[2020-07-07] MEDS: FUROSEMIDE 20 MG TABLET PO SCH (10:48)
[2020-07-07] MEDS: DOCUSATE SODIUM 100 MG CAPSULE PO SCH ×2 (10:48→17:17)
[2020-07-07] MEDS: ASCORBIC ACID 500 MG TABLET PO SCH ×2 (10:49→17:18)
[2020-07-07] MEDS: POLYETHYLENE GLYCOL 3350 POWDER 17 GM/1 PACKET PO SCH (10:49)
[2020-07-07] MEDS: ZINC SULFATE 220 MG CAPSULE PO SCH (10:49)
[2020-07-07] MEDS: METOPROLOL TARTRATE 50 MG TABLET PO SCH ×2 (10:49→21:31)
[2020-07-07] MEDS: AZITHROMYCIN 500 MG in DEXTROSE 5%-WATER 250 ML IV SCH (10:50)
--- NOTE | 2020-07-07 11:04 | PDOC PROGRESS REPORT ---
Subjective Progress Note for:: 07/07/20 Subjective:: Pavel Lepe 59-year-old male past medical history of CHF ejection fraction of 20 to 25%, status post leadless permanent pacemaker, atrial fibrillation on Coumadin, recurrent pleural effusion and pneumothorax, mitral valve replacement at [place] which was complicated patient had to stay in the hospital for 4 months. Postoperatively patient had a PEA cardiac arrest and had renal failure and was discharged on hemodialysis was brought to ED by EMS after being found unresponsive and noted to be in V. tach, was given a shock of 100 J successful. 06/29/2020. This morning patient was noted to be very tachycardic and short of breath while receiving hemodialysis, was given 1 dose of IV metoprolol which helped her heart rate, respiratory symptoms also improved post hemodialysis, patient is tolerating some p.o. feeds, passing flatus and having small bowel movements, still short of breath and distended abdomen, abdomen hypoactive, NG tube is out, denies any fever, chills, nausea, abdominal pain or any urinary symptoms. Patient is pending paracentesis and thoracentesis by radiology however patient INR still too high. Currently on heparin drip. 06/30/2020. No acute events overnight. Patient still complaining of shortness of breath however chest pain has resolved, troponins trending down, and Dr. Garcia woolen mill utility worker has seen patient and as per her note patient is not a candidate for any cardiac intervention due to multiple underlying comorbidities, patient denies any nausea, vomiting, diarrhea, constipation. Denies any fever. 07/01/2020. Saw patient this evening, he is just back from radiology after undergoing paracentesis and thoracentesis, stating that he is very hungry and asking for food, abdominal distention of improved and his shortness of breath also improving, patient denies any chest pain, nausea, vomiting, diarrhea. Alert and oriented x3. 07/02/2020. No acute events overnight. This morning patient was complaining of pain, received 1 dose of Ativan which helped significantly, patient also mentioning that he is depressed however denies any suicidal or homicidal ideation, patient likes to sit in the recliner, patient is tolerating his p.o. intake, no abdominal pain has resolved, patient having normal bowel and bladder movements. Patient is pending transfer to rehab. 07/03/2020. Overnight patient was running V. tach and was a started on amiodarone, V. tach resolved but unfortunately this morning patient was complaining of shortness of breath and anxiety, rapid COVID test came back positive, patient may have likely been exposed during dialysis last Saturday, patient is coughing however denies any fever, chest pain, nausea or vomiting, he still p.o. tolerant and having normal bowel movements. Patient was moved to ICU as there is no room available in COVID unit. 07/04/2020. Saw patient this morning while receiving hemodialysis in ICU, patient is awake and alert however seems very weak, patient still wants to limit full code and has given me permission to get him effervescent plasma if possible, denies any fever, chills, chest pain or shortness of breath. On 6 L nasal cannula saturating 100%. 07/05/2020. Saw patient this morning, complaining of being cold, endorsing low appetite, otherwise denies any chest pain, shortness of breath, nausea, vomiting. 07/06/2020. No acute events overnight. Patient has been transferred back to third floor, today patient got triple-lumen catheter so he could be started on TPN as patient is losing weight and has not been eating much, patient oxygen requirement has not changed much, still afebrile but has leukocytosis which could be due to IV steroids, denies any fever, chills, nausea, vomiting, diarrhea, constipation. 07/07/2020. No acute events overnight. Patient is very pleasant today and cooperative with physical examination, denies any fever, chills, nausea, vomiting. Stating that he is hungry and asking for food unfortunately patient had an aspiration drinking water currently on TPN and pending speech therapy evaluation. Patient is on nasal cannula oxygen demand is improving, currently on 3.5 L saturating 100%. Reason For Visit: COVID-19, ESR, V-TACH Physical Exam Vital Signs: Temp Pulse Resp BP Pulse Ox 97.4 F 83 18 92/72 L 100 07/07/20 08:01 07/07/20 08:02 07/07/20 08:02 07/07/20 08:01 07/07/20 08:02 Intake & Output 07/06/20 07/07/20 07/08/20 06:59 06:59 06:59 Intake Total 2625 2341 Output Total 900 2550 Balance 1725 -209 Weight 62 kg 63.5 kg General appearance: PRESENT: thin Head exam: PRESENT: atraumatic, normocephalic Respiratory exam: PRESENT: clear to auscultation monroe. ABSENT: rales, rhonchi, wheezes GI/Abdominal exam: PRESENT: normal bowel sounds, soft. ABSENT: distended, guarding, mass, organolmegaly, rebound, tenderness Neurological exam: PRESENT: alert, awake, oriented to person, oriented to place, oriented to time, oriented to situation, CN II-XII grossly intact. ABSENT: motor sensory deficit Results Laboratory Results: 07/06/20 04:45 07/06/20 04:45 07/04/20 18:35 Chest - Right Side Gram Stain - Final 07/04/20 18:35 Chest - Right Side Wound Culture - Final Staphylococcus Aureus Stenotrophomonas Maltophilia 06/07/20 06/07/20 06/07/20 12:24 12:24 15:08 Creatine Kinase 34 L CK-MB (CK-2) Troponin I 0.035 0.041 NT-Pro-B Natriuret Pep 06/07/20 06/07/20 06/08/20 16:45 22:01 05:25 Creatine Kinase 35 L 40 L 35 L CK-MB (CK-2) Troponin I NT-Pro-B Natriuret Pep 06/08/20 06/29/20 06/29/20 05:25 07:30 07:30 Creatine Kinase 27 L CK-MB (CK-2) 1.04 Troponin I 0.028 NT-Pro-B Natriuret Pep 46551 H 06/29/20 06/29/20 06/29/20 15:11 15:11 20:37 Creatine Kinase 39 L CK-MB (CK-2) 2.04 Troponin I 0.142 0.166 NT-Pro-B Natriuret Pep 06/30/20 05:00 Creatine Kinase CK-MB (CK-2) Troponin I 0.119 NT-Pro-B Natriuret Pep Impressions: Head CT 06/07/20 13:02 IMPRESSION: Stable CT of the brain with bifrontal encephalomalacia. No acute intracranial event. EVIDENCE OF ACUTE STROKE: NO. Thoracentesis Ultrasound 06/08/20 00:00 IMPRESSION: SUCCESSFUL THORACENTESIS AND CHEST TUBE PLACEMENT USING ULTRASOUND GUIDANCE. Abdomen/Pelvis CT 06/17/20 00:00 IMPRESSION: 1. Small bowel obstruction with transition point in the left mid abdomen. This may be a high-grade partial obstruction. Distal small bowel and colon are decompressed. 2. Marked urinary bladder distention, suggestive of bladder outlet obstruction. Clinical correlation is recommended. 3. Loculated right hydropneumothorax and small left pleural effusion, not significantly changed. Compressive atelectasis at the lung bases. 4. Moderate ascites, slightly decreased from previous examination. 5. Mildly nodular contour of the liver, nonspecific however could indicate underlying hepatic cirrhosis. Clinical correlation is with recommended. 6. Diffuse subcutaneous edema, suggestive of fluid overload. 7. Colonic diverticulosis without evidence of diverticulitis. KUB X-Ray 06/22/20 00:00 IMPRESSION: Partial small bowel obstruction Chest CT 06/25/20 00:00 IMPRESSION: Loculated right hydropneumothorax which appears similar at the right lung base from the abdominal CT dated 06/17/2020. Slight interval increase in left pleural effusion. Moderate ascites with a similar nonspecific nodular hepatic contour and slight heterogeneous hepatic attenuation. Paracentesis Ultrasound 07/01/20 08:26 IMPRESSION: SUCCESSFUL ULTRASOUND GUIDED PARACENTESIS. Chest X-Ray 07/06/20 00:00 IMPRESSION: The tip of the newly placed right subclavian vein approach central venous catheter projects within the right atrium. There is no postprocedural pneumothorax. Assessment and Plan - Diagnosis (1) COVID-19 virus detected Is this a current diagnosis for this admission?: Yes Plan: Short of breath, tachypneic, increasing oxygen requirement from 1.5 to 6 L nasal cannula. Saturating 100%. Repeat CXR stable appearance as per radiologist, but upon my observation there are some new opacities on the left lobe. Elevated CRP and d-dimer. Day 5 IV antibiotics. Day 5 IV azithromycin. Day 2 IV levofloxacin. Day 5 IV dexamethasone. Day 5 IV Remdisivr. Received 2 days of IV ceftriaxone. Received 2 days of IV ceftriaxone. Status post effervescent plasma infusion on 07/05/2020. Continue empiric IV azithromycin, IV ceftriaxone, IV dexamethasone, Remdisivir, p.o. zinc sulfate and p.o. vitamin C. already on heparin being bridged to Coumadin. Patient has had prolonged hospitalization here at [facility] and has extensive underlying comorbidities not sure if patient will do very well with coinfection. Low threshold for intubation. (2) Infection of chest Is this a current diagnosis for this admission?: Yes Plan: Patient noted to have some discharge from the site of chest tube placement on the right lateral chest wall. Fluid culture growing MSSA and Stenotrophomonas Maltophilia both sensitive to levofloxacin. Surgery has evaluated the patient and as per their note it is fat necrosis and patient received I&D at bedside. Day 3 of IV levofloxacin. Continue wound care and IV antibiotics. (3) Malnutrition Qualifiers: Malnutrition type: protein-calorie malnutrition Protein-calorie malnutrition severity: moderate Qualified Code(s): E44.0 - Moderate protein-ca melissa malnutrition Is this a current diagnosis for this admission?: Yes Plan: Patient has a normal BMI however looks very emaciated and weak. Patient has been p.o. tolerant however does not eat much due to extreme weakness was also noted to aspirate on water. Currently n.p.o. on TPN pending speech therapy swallowing evaluation. Continue TPN while pending a speech therapy evaluation. We will consult growth media mixer mushroom. Patient will need aggressive rehab once he is discharged from inpatient care. (4) Small bowel obstruction Is this a current diagnosis for this admission?: Yes Plan: Resolved. Passing flatus, having small bowel meds. Tolerating clear liquids. CT abdomen positive for high-grade partial obstruction on CT with a transition point in the left mid abdomen. KUB shows persistent mildly dilated loops of small bowel to the left of midline. Gas and fecal material in the rectum. KUB shows persistent small bowel obstruction. NG tube discontinued. Advance to soft/low residue liquids. Continue Colace and MiraLax daily. Monitor electrolytes and volume status. (5) Ventricular tachyarrhythmia Is this a current diagnosis for this admission?: Yes Plan: Sinus rhythm. On beta-blockers. 07/03/2020 patient again went into V. tach and was a started on amiodarone. Currently sinus rhythm. On admission was noticed to have wide-complex tachycardia at the rate of 220 reported by EMS, status post 100 J shock. As per cardiology note patient is a will require implantable cardioverter defibrillator however he is not a candidate given his multiorgan failure and nutritional status. Cardiology consulted. Recommendation at this time is medical management and optimizing electrolytes. Reconsult cardiology at time of discharge. (6) DEMETRIUS (acute kidney injury) Is this a current diagnosis for this admission?: Yes Plan: Chronic renal failure. History of end-stage renal disease. Nephrology is consulted; receiving scheduled hemodialysis. Spoke w/ Dr. Rush, patient will require chronic dialysis following discharge. Monitor volume status. Monitor electrolytes and replace as needed. Mccall in place for strict I&Os (7) Ascites Qualifiers: Ascites type: due to alcoholic cirrhosis Qualified Code(s): K70.31 - Alcoholic cirrhosis of liver with ascites Is this a current diagnosis for this admission?: Yes Plan: Continue furosemide and spironolactone. Nephrology consulted for dialysis. Agrees to palliative paracentesis. Status post paracentesis on 07/01/2020. On heparin being bridged back to Coumadin. (8) COPD (chronic obstructive pulmonary disease) Qualifiers: COPD type: unspecified COPD Qualified Code(s): J44.9 - Chronic obstructive pulmonary disease, unspecified Is this a current diagnosis for this admission?: Yes Plan: Does not appear to be acutely exacerbated. No indications for antibiotic or steroid therapy at this time. We will decrease frequency of scheduled nebs. (9) Hydrothorax Is this a current diagnosis for this admission?: Yes Plan: Resolved. History of recurrent pleural effusion. Patient had a chest tube placed on the right chest. Status post chest tube removal on 06/17/2020. s/p pleurodesis. Repeat CT as above. Analgesics as needed. Encourage pulmonary toilet with incentive spirometer, flutter valve, position change. Monitor vitals. (10) Pneumothorax, iatrogenic Is this a current diagnosis for this admission?: Yes Plan: Resolved. Status post pleurodesis by surgery. SPO2 WNL on RA. Repeat chest x-ray shows resolution of pneumothorax. (11) CHF (congestive heart failure) Qualifiers: Heart failure type: combined systolic and diastolic Heart failure chronicity: chronic Qualified Code(s): I50.42 - Chronic combined systolic (congestive) and diastolic (congestive) heart failure Is this a current diagnosis for this admission?: Yes Plan: Acutely exacerbated on admission. proBNP 16,800 on admission. (06/07/2020) 2D echo ejection fraction 25 to 30% with moderate pulmonary hypertension. Mechanical mitral valve.Per previous physician Continue cardiac diet, beta-blockers, Aldactone, furosemide. Cardiology previously consulted; have signed off. Reconsult as necessary and at time of discharge to arrange for LifeVest. (12) Atrial fibrillation Qualifiers: Atrial fibrillation type: longstanding persistent Qualified Code(s): I48.11 - Longstanding persistent atrial fibrillation Is this a current diagnosis for this admission?: Yes Plan: Sinus rhythm. Rate controlled. Was initially on heparin drip and transitioned to Coumadin. INR supratherapeutic; 5.15-> 3.91-> 2.05 Continue to monitor on telemetry. Continue beta-blockers Coumadin resumed; pharmacy to dose. Will bridge w/ Lovenox. Cardiology previous consulted; have signed off. Reconsult as needed. (13) Mechanical heart valve present Is this a current diagnosis for this admission?: Yes Plan: History of aortic stenosis status post mechanical valve placement on Saturday patient hospitalization was complicated by PEA and remained in hospital for 3 to 4 months and [facility]. As per recent echo mechanical valve functioning properly. Anticoagulated. On heparin bridge to Coumadin. Goal of INR 2.5-3.5. (14) Hypoglycemia Is this a current diagnosis for this admission?: Yes Plan: Noted to be hypoglycemic again. Patient is p.o. tolerant. We will start on D5NS and hypoglycemic protocol. Encourage p.o. intake. (15) Depression with anxiety Is this a current diagnosis for this admission?: Yes Plan: Much improved since being started on Remeron. Denies any homicidal or suicidal ideation. Continue Remeron to help him sleep and increase his appetite also treated depression. PRN Ativan. - Time Time Spent with patient: 35 or more minutes Medications reviewed and adjusted accordingly: Yes Anticipated Discharge Disposition: Long-Term Facility Anticipated Discharge Timeframe: within 72 hours
[2020-07-07] MEDS: INSULIN REG, HUMAN 100 UNIT/ML 3 ML VIAL (PYX) SUBCUT SCH ×2 (12:10→21:30)
[2020-07-07] MEDS: REMDESIVIR (EUA) 100 MG in NORMAL SALINE 250 ML IV SCH (18:15)
[2020-07-07] MEDS: AMINO ACIDS 5 %/DEXTROSE 20 % 1,000 ML IV PRN (18:16)
[2020-07-07] MEDS: ATORVASTATIN CALCIUM 40 MG TABLET PO SCH (21:32)
[2020-07-07] MEDS: MIRTAZAPINE 15 MG TABLET PO SCH (21:32)
[2020-07-07] MEDS: PHARMACY COMMUNICATION ORDER MC SCH (21:33)
[2020-07-08] MEDS: INSULIN REG, HUMAN 100 UNIT/ML 3 ML VIAL (PYX) SUBCUT SCH ×4 (00:10→18:39)
[2020-07-08] MEDS ORDERED: HEPARIN SOD (PORCINE) 1,000 UNIT/ML 10 ML VIAL IV PRN ×2 (05:00→14:15)
[2020-07-08] MEDS: DEXAMETHASONE SOD PHOSPHATE INJ 4 MG/1 ML VIAL IV SCH ×3 (05:37→21:17)
[2020-07-08] MEDS: MIDODRINE HCL 5 MG TABLET PO SCH ×3 (05:38→21:17)
[2020-07-08 06:17] LABS: HEMATOCRIT 34.6 % (37.9-51.0); HEMOGLOBIN 11.2 g/dL (13.5-17.0); MEAN CORPUSCULAR HEMOGLOBIN 27.7 pg (27.0-33.4); MEAN CORPUSCULAR HGB CONC 32.3 g/dL (32.0-36.0); MEAN CORPUSCULAR VOLUME 86 fl (80-97); PLATELET COUNT 113 10^3/uL (150-450); RED BLOOD COUNT 4.03 10^6/uL (4.35-5.55); RED CELL DISTRIBUTION WIDTH 19.6 % (11.5-14.0); WHITE BLOOD COUNT 12.5 10^3/uL (4.0-10.5)
[2020-07-08 06:39] LABS: ANION GAP 9 (5-19); BLOOD UREA NITROGEN 27 mg/dL (7-20); CALCIUM 7.7 mg/dL (8.4-10.2); CARBON DIOXIDE 24 mmol/L (22-30); CHLORIDE 97 mmol/L (98-107); GLUCOSE 231 mg/dL (75-110); POTASSIUM 3.8 mmol/L (3.6-5.0)
[2020-07-08] MEDS: IPRATROPIUM BROMIDE 0.02% NEB 0.5 MG/2.5 ML AMPUL NEB SCH (07:41)
[2020-07-08] MEDS: ASCORBIC ACID 500 MG TABLET PO SCH ×2 (09:23→18:38)
[2020-07-08] MEDS: ZINC SULFATE 220 MG CAPSULE PO SCH (09:23)
[2020-07-08] MEDS: METOPROLOL TARTRATE 50 MG TABLET PO SCH ×2 (09:23→21:18)
[2020-07-08] MEDS: FUROSEMIDE 20 MG TABLET PO SCH (09:24)
[2020-07-08] MEDS: SPIRONOLACTONE 25 MG TABLET PO SCH (09:24)
[2020-07-08] MEDS: ASPIRIN 81 MG TABLET, CHEWABLE PO SCH (09:24)
[2020-07-08] MEDS: AZITHROMYCIN 500 MG in DEXTROSE 5%-WATER 250 ML IV SCH (09:25)
[2020-07-08] MEDS: BISACODYL 10 MG SUPP.RECT PR SCH (09:25)
[2020-07-08] MEDS: DOCUSATE SODIUM 100 MG CAPSULE PO SCH ×2 (09:25→17:31)
[2020-07-08] MEDS: LIDOCAINE 5% (700 MG) TRANSDERMAL ADH..PATCH TP SCH (09:26)
[2020-07-08] MEDS: LEVOFLOXACIN 500 MG/D5W RTU 500 MG/100 ML RTUPB IV SCH (09:26)
[2020-07-08] MEDS: POLYETHYLENE GLYCOL 3350 POWDER 17 GM/1 PACKET PO SCH (09:26)
[2020-07-08] MEDS ORDERED: DILTIAZEM HCL INJ 25 MG/5 ML VIAL ONE (09:50)
[2020-07-08] MEDS ORDERED: DILTIAZEM HCL/D5W 0 MG/0 ML RTUINJ IV ONE (10:00)
[2020-07-08] MEDS ORDERED: DEXTROSE 5%-WATER 500 ML with AMIODARONE HCL 900 MG IV PRN ×2 (10:05)
[2020-07-08] MEDS ORDERED: METOPROLOL TARTRATE PF/INJ 5 MG/5 ML SDV IV ONE (10:16)
[2020-07-08] MEDS ORDERED: MIDAZOLAM 2 MG/2 ML INJ ONE (10:45)
[2020-07-08] MEDS ORDERED: SODIUM BICARBONATE 8.4% INJ 50 MEQ/50 ML DISP.SYRIN ONE ×5 (10:46→14:33)
[2020-07-08] MEDS ORDERED: FENTANYL CITRATE INJ/PF 100 MCG/2 ML AMPUL ONE (11:04)
[2020-07-08] MEDS ORDERED: DEXMEDETOMIDINE IN 0.9 % NACL 400 MCG/100 ML RTUPB IV ONE (11:20)
[2020-07-08 11:45] LABS: ARTERIAL BLOOD BASE EXCESS -5.8 mmol/L; ARTERIAL BLOOD H2CO3 1.89 mmol/L (1.05-1.35); ARTERIAL BLOOD HCO3 23.2 mmol/L (20-24); ARTERIAL BLOOD O2 SATURATION 88.7 % (94-98); ARTERIAL BLOOD PCO2 62.8 mmHg (35-45); ARTERIAL BLOOD PO2 68.5 mmHg (80-100); ARTERIAL BLOOD TOTAL CO2 25.2 mmol/L (23-27)
[2020-07-08 11:47] LABS: ARTERIAL BLOOD FIO2 90%
[2020-07-08 11:48] LABS: ARTERIAL BLOOD PH 7.19 (7.35-7.45)
[2020-07-08 11:50] LABS: ARTERIAL BLOOD BASE EXCESS -5.4 mmol/L; ARTERIAL BLOOD FIO2 90%; ARTERIAL BLOOD HCO3 23.2 mmol/L (20-24); ARTERIAL BLOOD O2 SATURATION 68.8 % (94-98); ARTERIAL BLOOD PCO2 59.9 mmHg (35-45); ARTERIAL BLOOD PH 7.21 (7.35-7.45); ARTERIAL BLOOD PO2 43.8 mmHg (80-100)
[2020-07-08] MEDS: DEXMEDETOMIDINE IN 0.9 % NACL 400 MCG/100 ML RTUPB IV PRN (11:50)
[2020-07-08] MEDS ORDERED: NOREPINEPHRINE BITARTRATE INJ/PF 4 MG/4 ML SDV IV ONE ×2 (11:56→13:54)
[2020-07-08] MEDS: DEXTROSE 5%-WATER 250 ML with NOREPINEPHRINE BITARTRATE 4 MG IV PRN ×12 (12:00→23:32)
[2020-07-08] MEDS ORDERED: MORPHINE SULFATE 10 MG/ML INJ IV PRN (12:15)
[2020-07-08] MEDS ORDERED: FUROSEMIDE INJ/PF 40 MG/4 ML SDV IV ONE ×2 (12:17→12:18)
[2020-07-08] MEDS ORDERED: MORPHINE SULFATE 10 MG/ML INJ ONE (12:19)
[2020-07-08] MEDS ORDERED: FUROSEMIDE INJ/PF 100 MG/10 ML SDV ONE (12:34)
[2020-07-08] MEDS: MILRINONE LACTATE/D5W 20 MG/100 ML RTUINJ IV PRN ×3 (12:38→23:41)
--- NOTE | 2020-07-08 13:13 | RADIOLOGY REPORT (SQ) ---
EXAM DESCRIPTION: CHEST SINGLE VIEW IMAGES COMPLETED DATE/TIME: 07/08/2020 1:04 pm REASON FOR STUDY: ETT COMPARISON: 07/06/2020 EXAM PARAMETERS: NUMBER OF VIEWS: One view. TECHNIQUE: Single frontal radiographic view of the chest acquired. RADIATION DOSE: NA LIMITATIONS: None. FINDINGS: LUNGS AND PLEURA: Endotracheal tube has been placed. The tip lies approximately 1 to 1.2 cm above the koko. Persistent diffuse bilateral airspace disease with probable loculated fluid col lections as demonstrated on recent CT. Dialysis catheter and central line remain in place. MEDIASTINUM AND HILAR STRUCTURES: No masses. Contour normal. HEART AND VASCULAR STRUCTURES: Stable in appearance sternotomy wires are in place. Loop recorder ove rlies the left ventricle. Valvular prosthesis is again noted. BONES: No acute findings. HARDWARE: None in the chest. OTHER: No other significant finding. IMPRESSION: Endotracheal tube has been placed as described. No other significant changes from prior study. TECHNICAL DOCUMENTATION: JOB ID: [id number] 2010 [employer]- All Rights Reserved Reading location - IP/workstation name: [email or web address]
[2020-07-08] MEDS ORDERED: ATROPINE SULFATE INJ 1 MG/10 ML DISP.SYRIN IV ONE (14:33)
[2020-07-08] MEDS ORDERED: EPINEPHRINE INJ 1 MG/10 ML DISP.SYRIN ONE (14:33)
[2020-07-08] MEDS ORDERED: AMIODARONE HCL INJ 150 MG/3 ML VIAL IV ONE (14:33)
[2020-07-08 14:37] LABS: HEMATOCRIT 34.1 % (37.9-51.0); HEMOGLOBIN 11.4 g/dL (13.5-17.0); MEAN CORPUSCULAR HGB CONC 33.3 g/dL (32.0-36.0); MEAN CORPUSCULAR VOLUME 84 fl (80-97); PLATELET COUNT 142 10^3/uL (150-450); RED BLOOD COUNT 4.06 10^6/uL (4.35-5.55); RED CELL DISTRIBUTION WIDTH 19.5 % (11.5-14.0); WHITE BLOOD COUNT 14.7 10^3/uL (4.0-10.5)
[2020-07-08] MEDS ORDERED: SUCCINYLCHOLINE CHLORIDE INJ 200 MG/10 ML VIAL ONE (14:49)
[2020-07-08 14:57] LABS: ABSOLUTE LYMPHOCYTES# (MANUAL) 0.3 10^3/uL (0.5-4.7); BASOPHILS % (MANUAL) 0 % (0-2); EOSINOPHILS % (MANUAL) 0 % (0-6); LYMPHOCYTES % (MANUAL) 2 % (13-45); MONOCYTES % (MANUAL) 0 % (3-13); SEGMENTED NEUTROPHILS % (MAN) 98 % (42-78); TOTAL CELLS COUNTED 100
[2020-07-08 14:59] LABS: ANISOCYTOSIS 1+; POIKILOCYTOSIS SLIGHT; RBC MORPHOLOGY COMMENT NORMO-CYTIC/CHROMIC
[2020-07-08 15:00] LABS: ALBUMIN 2.3 g/dL (3.5-5.0); ALKALINE PHOSPHATASE 188 U/L (38-126); ANION GAP 9 (5-19); ASPARTATE AMINO TRANSFERASE 49 U/L (17-59); BILIRUBIN,DIRECT 0.6 mg/dL (0.0-0.4); BILIRUBIN,TOTAL 1.1 mg/dL (0.2-1.3); BLOOD UREA NITROGEN 31 mg/dL (7-20); CALCIUM 7.7 mg/dL (8.4-10.2); CARBON DIOXIDE 28 mmol/L (22-30); CHLORIDE 95 mmol/L (98-107); CREATINE KINASE 51 U/L (55-170); GLUCOSE 263 mg/dL (75-110); PLATELET CLUMPS N; PLATELET COMMENT ADEQUATE; POTASSIUM 3.5 mmol/L (3.6-5.0); TARGET CELLS SLIGHT; TEAR DROP CELLS SLIGHT; TOTAL PROTEIN 5.4 g/dL (6.3-8.2)
[2020-07-08 15:18] LABS: CREATINE KINASE MB 1.95 ng/mL (<4.55)
[2020-07-08 15:23] LABS: TROPONIN I 0.105 ng/mL
[2020-07-08] MEDS: MORPHINE SULFATE 10 MG/ML INJ IV SCH ×4 (15:59→23:35)
[2020-07-08] MEDS ORDERED: VANCOMYCIN HCL 750 MG in DEXTROSE 5%-WATER 250 ML IV SCH (18:00)
[2020-07-08 18:05] LABS: ARTERIAL BLOOD BASE EXCESS 1.8 mmol/L; ARTERIAL BLOOD H2CO3 0.77 mmol/L (1.05-1.35); ARTERIAL BLOOD HCO3 22.8 mmol/L (20-24); ARTERIAL BLOOD O2 SATURATION 90.4 % (94-98); ARTERIAL BLOOD PCO2 25.5 mmHg (35-45); ARTERIAL BLOOD PH 7.57 (7.35-7.45); ARTERIAL BLOOD PO2 48.7 mmHg (80-100); ARTERIAL BLOOD TOTAL CO2 23.6 mmol/L (23-27)
[2020-07-08 18:16] LABS: ARTERIAL BLOOD BASE EXCESS 3.1 mmol/L; ARTERIAL BLOOD H2CO3 0.72 mmol/L (1.05-1.35); ARTERIAL BLOOD HCO3 23.5 mmol/L (20-24); ARTERIAL BLOOD O2 SATURATION 99.8 % (94-98); ARTERIAL BLOOD PCO2 23.8 mmHg (35-45); ARTERIAL BLOOD PO2 300.2 mmHg (80-100); ARTERIAL BLOOD TOTAL CO2 24.2 mmol/L (23-27)
[2020-07-08 18:18] LABS: ARTERIAL BLOOD FIO2 90%
[2020-07-08 18:19] LABS: ARTERIAL BLOOD FIO2 90%; ARTERIAL BLOOD PH 7.61 (7.35-7.45)
[2020-07-08 18:22] LABS: APPEARANCE,URINE CLEAR; BILIRUBIN,URINE NEGATIVE (NEGATIVE); COLOR,URINE STRAW; GLUCOSE, URINE 150 mg/dL (NEGATIVE); KETONES,URINE NEGATIVE (NEGATIVE); LEUKOCYTE ESTERASE,URINE NEGATIVE (NEGATIVE); NITRITE,URINE NEGATIVE (NEGATIVE); PROTEIN,URINE NEGATIVE (NEGATIVE); URINE SPECIFIC GRAVITY 1.005; UROBILINOGEN,URINE NEGATIVE mg/dL (<2.0)
--- NOTE | 2020-07-08 18:32 | CRITICAL CARE ADMISSION REPORT ---
HPI Date:: 07/08/20 Time:: 11:32 Reason for ICU Reason:: Post CPR resuscitation; endotracheally intubated Admission Date/Time & PCP: Admission Date/Time: 06/07/20 16:07 Primary Care Provider: SUJIT AMARO PA-C HPI: This 59-year-old male is seen in consultation at the request of Dr. Ray Ren for recommendations on further evaluation and management of his post CPR resuscitation. Rapid response team was called earlier this morning for worsening hypoxemia and respiratory distress, which apparently developed while the patient was getting situated for his hemodialysis session today. This deteriorated to CODE BLUE/PEA arrest. Patient will achieved ROSC after receiving and on a high watch. He was intubated and transferred to the ICU. He was originally admitted on 06/07/2020, when he presented with increasing shortness of breath. The patient's nephew reportedly called EMS with concerns about the patient's poor living conditions. Patient was apparently found to be tachycardic. Rhythm analysis apparently led them to believe that it was ventricular tachycardia, and the patient was cardioverted. He was admitted to [facility] from the emergency room and has had a very complicated course. He has developed ascites, small bowel obstruction, possible liver cirrhosis, right hydropneumothorax (treated with chest tube drainage, or removed 07/07) and subcutaneous edema secondary to fluid overload among other pathologies. Wound cultures suggest that the chest tube site may be infected. History obtained from:: Review of the chart - Diagnosis/Plan (1) Acute hypoxemic respiratory failure due to COVID-19 Is this a current diagnosis for this admission?: Yes Plan: Ventilator settings will be titrated based on ABG results. (2) Shock Is this a current diagnosis for this admission?: Yes Plan: 2 amps sodium bicarbonate IV push. Start milrinone, norepinephrine for blood pressure support. I suspect that this patient is currently in cardiogenic shock secondary to volume overload. SvO2 69%. CVP 24. LVEF 20-25% (2D echo, 06/07). As CRRT is not available at this institution, he emergently needs hemodialysis. He is too unstable to attempt to transport to a facility that can offer him CRRT. (3) Volume overload Qualifiers: Hypervolemia type: unspecified Qualified Code(s): E87.70 - Fluid overload, unspecified Is this a current diagnosis for this admission?: Yes Plan: Anticipating hemodialysis. Nephrology help appreciated. (4) Atrial flutter with rapid ventricular response Is this a current diagnosis for this admission?: Yes (5) Acute decompensated heart failure Is this a current diagnosis for this admission?: Yes (6) Dilated cardiomyopathy Is this a current diagnosis for this admission?: Yes (7) Pleural effusion Is this a current diagnosis for this admission?: Yes Plan: Had right-sided chest tube earlier during this admission, which has been removed. He does have a wound infection (MRSA, stenotrophomonas) at the site of his chest tube insertion. Pleural fluid analysis was apparently not done. (8) Wound infection following procedure Is this a current diagnosis for this admission?: Yes Plan: MRSA and stenotrophomonas. Currently on cefepime and azithromycin. This should be changed to renally dosed levofloxacin. Past Medical History Cardiac Medical History: Reports: Atrial Fibrillation, Hypertension Pulmonary Medical History: Reports: Chronic Obstructive Pulmonary Disease (COPD), Respiratory Failure Denies: Tuberculosis Neurological Medical History: Reports: Seizures - LAST 5 YR AGO Renal/ Medical History: Reports: End Stage Renal Disease Psychiatric Medical History: Denies: Depression Hematology: Reports: Anemia Past Surgical History Past Surgical History: Reports: Orthopedic Surgery - hip, arm, Pacemaker, Valve Replacement - Mechanical mitral valve replacement, October 2019, Other - Comp licated mitral valve replacement for severe mitral stenosis? Social/Family History - Social History Lives with: Alone Smoking Status: Unknown if Ever Smoked Frequency of Alcohol Use: Occasional Hx Recreational Drug Use: No Drugs: None Hx Prescription Drug Abuse: No - Medication/Allergies Home Medications: Fluticasone Propionate [Flonase Nasal [place] 50 Mcg/[place] 16 gm] 2 spray NASL DAILY 03/14/20 Metoprolol Tartrate [Lopressor 50 mg Tablet] 50 mg PO Q12 30 Days #60 tablet 03/23/20 Bumetanide [Bumex 1 mg Tablet] 0.5 mg PO DAILY 30 Days #15 tablet 04/08/20 Midodrine HCl 10 mg PO TID 30 Days #90 tablet 04/08/20 Warfarin Sodium [Jantoven 3 mg Tablet] 3 mg PO QHS 30 Days #30 tablet 04/08/20 Furosemide [Lasix 40 mg Tablet] 40 mg PO QAM 06/07/20 Allergies/Adverse Reactions: metoprolol [From Lopressor] Adverse Reaction (Mild, Verified 06/14/20 06:18) rash Review of Systems ROS unobtainable: Due to endotracheal tube, Due to mental status Physical Exam Vital Signs: Temp Pulse Resp BP Pulse Ox 97.5 F 103 H 28 H 99/75 L 99 07/07/20 19:51 07/08/20 09:06 07/08/20 09:06 07/08/20 09:06 07/08/20 11:21 Intake & Output 07/07/20 07/08/20 07/09/20 06:59 06:59 06:59 Intake Total 2341 250 Output Total 2550 150 Balance -209 100 Weight 63.5 kg 63.5 kg Weight/Height Weight 63.5 kg Height 1.63 m General appearance: PRESENT: thin, well-developed, well-nourished, other - Intubated Head exam: PRESENT: atraumatic, normocephalic Eye exam: PRESENT: conjunctiva pink, EOMI, PERRLA. ABSENT: scleral icterus Mouth exam: PRESENT: moist, tongue midline Respiratory exam: PRESENT: crackles, rales. ABSENT: rhonchi, wheezes Cardiovascular exam: PRESENT: RRR. ABSENT: diastolic murmur, rubs, systolic murmur Pulses: PRESENT: normal dorsalis pedis pul GI/Abdominal exam: PRESENT: normal bowel sounds, soft. ABSENT: distended, guarding, mass, organolmegaly, rebound, tenderness Extremities exam: PRESENT: full ROM. ABSENT: calf tenderness, clubbing, pedal edema Neurological exam: PRESENT: altered, CN II-XII grossly intact. ABSENT: motor sensory deficit Psychiatric exam: PRESENT: agitated Tubes/Lines: PRESENT: Endotracheal Tube, Central Line, Dialysis catheter Laboratory/Radiographs Laboratory Results: 07/08/20 05:45 07/08/20 05:45 07/08/20 07/08/20 05:45 05:45 WBC 12.5 H RBC 4.03 L Hgb 11.2 L Hct 34.6 L MCV 86 MCH 27.7 MCHC 32.3 RDW 19.6 H Plt Count 113 L Sodium 130.0 L Potassium 3.8 Chloride 97 L Carbon Dioxide 24 Anion Gap 9 BUN 27 H Creatinine 1.51 H Est GFR ( Amer) 58 L Glucose 231 H Calcium 7.7 L 06/07/20 06/07/2006/07/20 12:24 12:24 15:08 Creatine Kinase 34 L CK-MB (CK-2) Troponin I 0.035 0.041 NT-Pro-B Natriuret Pep 06/07/20 06/07/20 06/08/20 16:45 22:01 05:25 Creatine Kinase 35 L 40 L 35 L CK-MB (CK-2) Troponin I NT-Pro-B Natriuret Pep 06/08/20 06/29/20 06/29/20 05:25 07:30 07:30 Creatine Kinase 27 L CK-MB (CK-2) 1.04 Troponin I 0.028 NT-Pro-B Natriuret Pep [id number] H 06/29/20 06/29/20 06/29/20 15:11 15:11 20:37 Creatine Kinase 39 L CK-MB (CK-2) 2.04 Troponin I 0.142 0.166 NT-Pro-B Natriuret Pep 06/30/20 05:00 Creatine Kinase CK-MB (CK-2) Troponin I 0.119 NT-Pro-B Natriuret Pep Impressions: Head CT 06/07/20 13:02 IMPRESSION: Stable CT of the brain with bifrontal encephalomalacia. No acute intracranial event. EVIDENCE OF ACUTE STROKE: NO. Thoracentesis Ultrasound 06/08/20 00:00 IMPRESSION: SUCCESSFUL THORACENTESIS AND CHEST TUBE PLACEMENT USING ULTRASOUND GUIDANCE. Abdomen/Pelvis CT 06/17/20 00:00 IMPRESSION: 1. Small bowel obstruction with transition point in the left mid abdomen. This may be a high-grade partial obstruction. Distal small bowel and colon are decompressed. 2. Marked urinary bladder distention, suggestive of bladder outlet obstruction. Clinical correlation is recommended. 3. Loculated right hydropneumothorax and small left pleural effusion, not significantly changed. Compressive atelectasis at the lung bases. 4. Moderate ascites, slightly decreased from previous examination. 5. Mildly nodular contour of the liver, nonspecific however could indicate underlying hepatic cirrhosis. Clinical correlation is with recommended. 6. Diffuse subcutaneous edema, suggestive of fluid overload. 7. Colonic diverticulosis without evidence of diverticulitis. KUB X-Ray 06/22/20 00:00 IMPRESSION: Partial small bowel obstruction Chest CT 06/25/20 00:00 IMPRESSION: Loculated right hydropneumothorax which appears similar at the right lung base from the abdominal CT dated 06/17/2020. Slight interval increase in left pleural effusion. Moderate ascites with a similar nonspecific nodular hepatic contour and slight heterogeneous hepatic attenuation. Paracentesis Ultrasound 07/01/20 08:26 IMPRESSION: SUCCESSFUL ULTRASOUND GUIDED PARACENTESIS. Chest X-Ray 07/06/20 00:00 IMPRESSION: The tip of the newly placed right subclavian vein approach central venous catheter projects within the right atrium. There is no postprocedural pneumothorax. All labs, radiographs, diagnostic studies and EKGs were personally reviewed: Yes In addition, reports of radiographic and diagnostic studies were read: Yes Critical Time Critical Time (minutes): 90 -: The care of a critically ill patient is dynamic. This note represents a static moment in the admission process. Orders and treatments may be given simu ltaneously and urgently, and time is not pharmacy sales representative of the treatment process. This patient requires Critical Care secondary to life threatening organ or limb dysfunction. Without Critical Care services, the patient is at risk for increased mortality and morbidity.
[2020-07-08] MEDS: AMINO ACIDS 5 %/DEXTROSE 20 % 1,000 ML IV PRN (20:01)
[2020-07-08 20:40] LABS: ARTERIAL BLOOD BASE EXCESS 3.1 mmol/L; ARTERIAL BLOOD H2CO3 1.22 mmol/L (1.05-1.35); ARTERIAL BLOOD HCO3 27.4 mmol/L (20-24); ARTERIAL BLOOD O2 SATURATION 98.7 % (94-98); ARTERIAL BLOOD PCO2 40.5 mmHg (35-45); ARTERIAL BLOOD PH 7.45 (7.35-7.45); ARTERIAL BLOOD PO2 128.8 mmHg (80-100); ARTERIAL BLOOD TOTAL CO2 28.6 mmol/L (23-27)
[2020-07-08 20:45] LABS: ARTERIAL BLOOD FIO2 60%
[2020-07-08 20:56] LABS: ANION GAP 6 (5-19); BLOOD UREA NITROGEN 27 mg/dL (7-20); CALCIUM 7.4 mg/dL (8.4-10.2); CARBON DIOXIDE 30 mmol/L (22-30); CHLORIDE 95 mmol/L (98-107); GLUCOSE 231 mg/dL (75-110)
[2020-07-08] MEDS: ATORVASTATIN CALCIUM 40 MG TABLET PO SCH (21:18)
[2020-07-08] MEDS ORDERED: POTASSI CL 20 MEQ/50 ML RIDER 20 MEQ/50 ML RTUPB IV ONE (21:20)
[2020-07-08] MEDS: MIRTAZAPINE 15 MG TABLET PO SCH (21:26)
[2020-07-08] MEDS: PHARMACY COMMUNICATION ORDER MC SCH (21:31)
[2020-07-08] MEDS: POTASSI CL 20 MEQ/50 ML RIDER 20 MEQ/50 ML RTUPB IV SCH ×2 (21:38→23:36)
[2020-07-08] MEDS: HEPARIN SODIUM,PORCINE/D5W 25,000 UNIT/250 ML RTUINJ IV PRN ×2 (21:58→23:45)
[2020-07-08] MEDS: METOPROLOL TARTRATE 50 MG TABLET NG SCH (23:08)
[2020-07-08] MEDS: ATORVASTATIN CALCIUM 40 MG TABLET NG SCH (23:08)
--- NOTE | 2020-07-09 01:07 | Operative Report ---
Bedside Procedure - History of Present Illness History of Present Illness: This 59-year-old male is seen in consultation at the request of Dr. Ray Ren for recommendations on further evaluation and management of his post CPR resuscitation. Rapid response team was called earlier this morning for worsening hypoxemia and respiratory distress, which apparently developed while the patient was getting situated for his hemodialysis session today. This deteriorated to CODE BLUE/PEA arrest. He was originally admitted on 06/07/2020, when he presented with increasing shortness of breath. The patient's nephew reportedly called EMS with concerns about the patient's poor living conditions. Patient was apparently found to be tachycardic. Rhythm analysis apparently led them to believe that it was ventricular tachycardia, and the patient was cardioverted. He was admitted to [facility] from the emergency room and has had a very complicated course. He has developed ascites, small bowel obstruction, possible liver cirrhosis, right hydropneumothorax (treated with chest tube drainage, or removed 07/07) and subcu taneous edema secondary to fluid overload among other pathologies. Wound cultures suggest that the chest tube site may be infected. Indication for Procedure: cardiopulmonary arrest; post CPR resuscitation Date: 07/08/20 Provider: SHOAIB MEDINA - Intubation Orotracheal Time of Intubation: 12:00 Airway evaluation: Normal anatomy Mallampati Classification: Class 1 Medications: Succinylcholine Intubation method: Orotracheal Blade type: Reyna Blade size: 3 Equipment used: Glidescope ETT size: 7.5 ETT secured at: Teeth ETT secured at (cm): 24 Post Intubation Xray: Yes Intubation Complications: No complications
[2020-07-09] MEDS: POTASSI CL 20 MEQ/50 ML RIDER 20 MEQ/50 ML RTUPB IV SCH ×5 (01:49→05:11)
[2020-07-09] MEDS: MILRINONE LACTATE/D5W 20 MG/100 ML RTUINJ IV PRN ×2 (03:51→16:42)
[2020-07-09 05:03] LABS: HEMATOCRIT 32.4 % (37.9-51.0); HEMOGLOBIN 10.7 g/dL (13.5-17.0); MEAN CORPUSCULAR HEMOGLOBIN 27.8 pg (27.0-33.4); MEAN CORPUSCULAR HGB CONC 33.1 g/dL (32.0-36.0); MEAN CORPUSCULAR VOLUME 84 fl (80-97); PLATELET COUNT 133 10^3/uL (150-450); RED BLOOD COUNT 3.85 10^6/uL (4.35-5.55); RED CELL DISTRIBUTION WIDTH 19.5 % (11.5-14.0); WHITE BLOOD COUNT 17.9 10^3/uL (4.0-10.5)
[2020-07-09 05:08] LABS: ARTERIAL BLOOD BASE EXCESS 3.3 mmol/L; ARTERIAL BLOOD H2CO3 1.07 mmol/L (1.05-1.35); ARTERIAL BLOOD HCO3 26.5 mmol/L (20-24); ARTERIAL BLOOD O2 SATURATION 96.1 % (94-98); ARTERIAL BLOOD PCO2 35.4 mmHg (35-45); ARTERIAL BLOOD PH 7.49 (7.35-7.45); ARTERIAL BLOOD PO2 74.9 mmHg (80-100); ARTERIAL BLOOD TOTAL CO2 27.6 mmol/L (23-27)
[2020-07-09] MEDS: MORPHINE SULFATE 10 MG/ML INJ IV SCH ×6 (05:08→23:17)
[2020-07-09 05:20] LABS: ARTERIAL BLOOD FIO2 40%
[2020-07-09 05:21] LABS: ABSOLUTE LYMPHOCYTES# (MANUAL) 0.5 10^3/uL (0.5-4.7); ABSOLUTE MONOCYTES # (MANUAL) 0.2 10^3/uL (0.1-1.4); BASOPHILS % (MANUAL) 0 % (0-2); EOSINOPHILS % (MANUAL) 0 % (0-6); LYMPHOCYTES % (MANUAL) 3 % (13-45); MONOCYTES % (MANUAL) 1 % (3-13); SEGMENTED NEUTROPHILS % (MAN) 96 % (42-78); TOTAL CELLS COUNTED 100
[2020-07-09 05:22] LABS: ANISOCYTOSIS 2+; PLATELET COMMENT DECREASED; POIKILOCYTOSIS 1+; TARGET CELLS 1+; TOXIC VACUOLATION PRESENT
[2020-07-09 05:39] LABS: ALBUMIN 2.1 g/dL (3.5-5.0); ALKALINE PHOSPHATASE 166 U/L (38-126); ASPARTATE AMINO TRANSFERASE 43 U/L (17-59); BILIRUBIN,DIRECT 0.5 mg/dL (0.0-0.4); BLOOD UREA NITROGEN 29 mg/dL (7-20); CALCIUM 7.5 mg/dL (8.4-10.2); CARBON DIOXIDE 31 mmol/L (22-30); CHLORIDE 97 mmol/L (98-107); GLUCOSE 127 mg/dL (75-110); PHOSPHORUS 1.6 mg/dL (2.5-4.5); TOTAL PROTEIN 5.2 g/dL (6.3-8.2)
[2020-07-09 05:50] LABS: POTASSIUM 4.4 mmol/L (3.6-5.0)
[2020-07-09] MEDS: DEXAMETHASONE SOD PHOSPHATE INJ 4 MG/1 ML VIAL IV SCH ×3 (05:56→21:50)
[2020-07-09] MEDS: INSULIN REG, HUMAN 100 UNIT/ML 3 ML VIAL (PYX) SUBCUT SCH ×5 (05:56→23:53)
[2020-07-09] MEDS: DEXTROSE 5%-WATER 250 ML with NOREPINEPHRINE BITARTRATE 4 MG IV PRN ×8 (05:56→23:18)
[2020-07-09] MEDS: HEPARIN SODIUM,PORCINE/D5W 25,000 UNIT/250 ML RTUINJ IV PRN (06:02)
[2020-07-09 06:08] LABS: ANION GAP 5 (5-19)
--- NOTE | 2020-07-09 07:36 | EKG REPORT ---
SEVERITY:- ABNORMAL ECG - SINUS TACHYCARDIA LEFT BUNDLE BRANCH BLOCK : Confirmed by: Dk Shields MD 09-Jul-2020 07:36:23
[2020-07-09] MEDS: DEXMEDETOMIDINE IN 0.9 % NACL 400 MCG/100 ML RTUPB IV PRN ×3 (09:28→23:17)
[2020-07-09] MEDS: ASCORBIC ACID 500 MG TABLET NG SCH ×2 (09:30→17:01)
[2020-07-09] MEDS: ZINC SULFATE 220 MG CAPSULE NG SCH (09:30)
[2020-07-09] MEDS: METOPROLOL TARTRATE 50 MG TABLET NG SCH ×2 (09:30→21:50)
[2020-07-09] MEDS: AZITHROMYCIN 500 MG in DEXTROSE 5%-WATER 250 ML IV SCH (11:48)
[2020-07-09] MEDS ORDERED: SODIUM BICARBONATE 8.4% INJ 50 MEQ/50 ML DISP.SYRIN ONE (11:57)
[2020-07-09] MEDS ORDERED: FUROSEMIDE INJ/PF 40 MG/4 ML SDV ONE (11:57)
[2020-07-09] MEDS: ALBUMIN HUMAN 12.5 GM/50 ML RTUINJ IV SCH ×4 (12:16→14:30)
--- NOTE | 2020-07-09 12:27 | RADIOLOGY REPORT (SQ) ---
EXAM DESCRIPTION: CHEST SINGLE VIEW IMAGES COMPLETED DATE/TIME: 07/09/2020 5:56 am REASON FOR STUDY: ETT tube COMPARISON: 07/08/2020 NUMBER OF VIEWS: One view. TECHNIQUE: Single frontal radiographic image of the chest acquired. LIMITATIONS: None. FINDINGS: ENDOTRACHEAL TUBE: Tip approximately 2.5 cm above the level of the koko. OTHER SUPPORT DEVICES: Right IJ central venous catheter, tunneled left dialysis catheter are in stabl e position. New NG tube tip overlies the pyloric region of the stomach. CHANGES IN RADIOGRAPHIC FINDINGS: Similar bibasilar airspace disease -effusion. . HARDWARE: CABG -valve replacement. OTHER: No other significant finding. IMPRESSION: Tubes and lines in expected position. Similar radiographic appearance. TECHNICAL DOCUMENTATION: JOB ID: [id number] [id number] 2010 [employer]- All Rights Reserved Reading location - IP/workstation name: [email or web address]
[2020-07-09] MEDS: LIDOCAINE 5% (700 MG) TRANSDERMAL ADH..PATCH TP SCH (12:31)
[2020-07-09] MEDS ORDERED: FUROSEMIDE INJ/PF 40 MG/4 ML SDV IV ONE (13:00)
[2020-07-09 16:55] LABS: ARTERIAL BLOOD BASE EXCESS 2.3 mmol/L; ARTERIAL BLOOD H2CO3 1.17 mmol/L (1.05-1.35); ARTERIAL BLOOD HCO3 26.4 mmol/L (20-24); ARTERIAL BLOOD O2 SATURATION 98.2 % (94-98); ARTERIAL BLOOD PCO2 38.8 mmHg (35-45); ARTERIAL BLOOD PH 7.45 (7.35-7.45); ARTERIAL BLOOD PO2 109.1 mmHg (80-100); ARTERIAL BLOOD TOTAL CO2 27.6 mmol/L (23-27)
[2020-07-09 16:57] LABS: ARTERIAL BLOOD FIO2 40%
--- NOTE | 2020-07-09 17:59 | PDOC CRITICAL CARE PROG REPORT ---
General Date:: 07/09/20 ICU Day:: 2 Ventilator Day:: 2 Hospital Day:: 33 Resuscitation Status: Full Code Events in the past 12 to 24 Hours:: This 59-year-old male is seen in consultation at the request of Dr. Kristi Ren for recommendations on further evaluation and management of his post CPR resuscitation. Rapid response team was called earlier this morning for worsening hypoxemia and respiratory distress, which apparently developed while the patient was getting situated for his hemodialysis session today. This deteriorated to CODE BLUE/PEA arrest. ROSC was achieved after 10 minutes of CPR. He was intubated and transferred to the ICU. No CODE BLUE documentation EMR. He was originally admitted on 06/07/2020, when he presented with increasing shortness of breath. The patient's nephew reportedly called EMS with concerns about the patient's poor living conditions. Patient was apparently found to be tachycardic. Rhythm analysis apparently led them to believe that it was ventricular tachycardia, and the patient was cardioverted. He was admitted to [facility] from the emergency room and has had a very complicated course. He has developed ascites, small bowel obstruction, possible liver cirrhosis, right hydropneumothorax (treated with chest tube drainage, removed 06/17 [previously incorrectly documented as 07/07]) and subcutaneous edema secondary to fluid overload among other pathologies. Wound cultures suggest that the chest tube site may be infected. 07/09: The patient did undergo hemodialysis yesterday. Of note, he has also produced 1600 mL of urine yesterday in the ICU (over approximately 20 hours), which appears to be secondary to improved hemodynamics while on milrinone infusion. This was started after the patient failed to demonstrate significant improvement in blood pressure while on Levophed. CVP at the time of transfer to ICU was severely elevated (35). Currently on Levophed and milrinone. He is on Precedex and morphine for sedation. He is arousable. He follows commands. Appears to be neurologically intact despite requiring CPR yesterday. Chest x- ray today is compatible with pulmonary edema with bilateral pleural effusions (R > L). On PRVC mode. AB.49/35/75. WBC 17.9. On TPN. On levofloxacin/azithromycin. Wound culture from the right chest tube site isolated Staphylococcus aureus (MSSA) and Stenotrophomonas maltophilia. Review of systems relevant to events:: Respiratory: Shortness of breath, pleural effusions Cardiovascular: Atrial fibrillation with rapid ventricular response, tachyarrhythmia, dilated cardiomyopathy, mechanical mitral valve Gastrointestinal: Ascites, protein calorie malnutrition Renal: Hemodialysis dependent chronic kidney disease Reason for ICU Addmission:: Post CPR resuscitation; endotracheally intubated - Medications: Medications reviewed and adjusted accordingly: Yes Vasopressors:: Levophed, milrinone Sedation:: Propofol, morphine Physical Exam Vital Signs: Temp Pulse Resp BP Pulse Ox 96.6 F L 126 H 17 110/82 95 07/09/20 06:04 07/09/20 02:00 07/09/20 06:04 07/09/20 06:04 07/09/20 08:52 Intake & Output 07/08/20 07/09/20 07/10/20 06:59 06:59 06:59 Intake Total 500 2613 96 Output Total 150 2792 90 Balance 350 -179 6 Weight 63.5 kg 59.5 kg Weight/Height Weight 59.5 kg Height 1.63 m General appearance: PRESENT: no acute distress, well-developed, well-nourished Head exam: PRESENT: atraumatic, normocephalic Eye exam: PRESENT: conjunctiva pink, EOMI, PERRLA. ABSENT: scleral icterus Mouth exam: PRESENT: moist, tongue midline Neck exam: ABSENT: carotid bruit, JVD, lymphadenopathy, thyromegaly Respiratory exam: PRESENT: crackles - Bases, decreased breath sounds. ABSENT: rales, rhonchi, wheezes Cardiovascular exam: PRESENT: RRR, tachycardia. ABSENT: diastolic murmur, rubs, systolic murmur GI/Abdominal exam: PRESENT: ascites, normal bowel sounds, soft. ABSENT: distended, guarding, mass, organolmegaly, rebound, tenderness Gentrourinary exam: PRESENT: indwelling catheter Extremities exam: PRESENT: full ROM, pedal edema, +2 edema. ABSENT: calf tenderness, clubbing Musculoskeletal exam: PRESENT: normal inspection. ABSENT: deformity Neurological exam: PRESENT: altered, reflexes normal, CN II-XII grossly intact. ABSENT: motor sensory deficit Psychiatric exam: ABSENT: agitated, anxious Skin exam: PRESENT: dry, intact, warm. ABSENT: cyanosis, rash Tubes/Lines: PRESENT: Endotracheal Tube, Dialysis catheter, Nasogastic Tube Laboratory/Radiographs Laboratory Results: 07/09/20 04:00 07/09/20 04:00 07/08/20 07/08/20 07/08/20 11:21 11:30 14:20 WBC RBC Hgb Hct MCV MCH MCHC RDW Plt Count Seg Neutrophils % Carbonic Acid 1.80 H 1.89 H HCO3/H2CO3 Ratio 12:1 12:1 ABG pH 7.21 L 7.19 L* ABG pCO2 59.9 H 62.8 H ABG pO2 43.8 L 68.5 L ABG HCO3 23.2 23.2 ABG O2 Saturation 68.8 L 88.7 L ABG Base Excess -5.4 -5.8 FiO2 90% 90% Sodium 132.2 L Potassium 3.5 L Chloride 95 L Carbon Dioxide 28 Anion Gap 9 BUN 31 H Creatinine 1.59 H Est GFR ( Amer) 54 L Glucose 263 H Lactic Acid Calcium 7.7 L Ionized Calcium Cor[place] Phosphorus Magnesium 2.0 Total Bilirubin 1.1 AST 49 Alkaline Phosphatase 188 H Total Protein 5.4 L Albumin 2.3 L Urine Color Urine Appearance Urine pH Ur Specific Cardale Urine Protein Urine Glucose (UA) Urine Ketones Urine Blood Urine Nitrite Ur Leukocyte Esterase Urine WBC (Auto) Urine RBC (Auto) 07/08/20 07/08/20 07/08/20 14:20 14:20 17:53 WBC 14.7 H RBC 4.06 L Hgb 11.4 L Hct 34.1 L MCV 84 MCH 28.0 MCHC 33.3 RDW 19.5 H Plt Count 142 L Seg Neutrophils % Not Reportable Carbonic Acid 0.72 L HCO3/H2CO3 Ratio 32:1 ABG pH 7.61 H* ABG pCO2 23.8 L ABG pO2 300.2 H ABG HCO3 23.5 ABG O2 Saturation 99.8 H ABG Base Excess 3.1 FiO2 90% Sodium Potassium Chloride Carbon Dioxide Anion Gap BUN Creatinine Est GFR ( Amer) Glucose Lactic Acid Calcium Ionized Calcium Corina 1.03 L Phosphorus Magnesium Total Bilirubin AST Alkaline Phosphatase Total Protein Albumin Urine Color Urine Appearance Urine pH Ur Specific Cardale Urine Protein Urine Glucose (UA) Urine Ketones Urine Blood Urine Nitrite Ur Leukocyte Esterase Urine WBC (Auto) Urine RBC (Auto) 07/08/20 07/08/20 07/08/20 17:55 18:00 20:21 WBC RBC Hgb Hct MCV MCH MCHC RDW Plt Count Seg Neutrophils % Carbonic Acid 0.77 L 1.22 HCO3/H2CO3 Ratio 29:1 22:1 ABG pH 7.57 H 7.45 ABG pCO2 25.5 L 40.5 ABG pO2 48.7 L 128.8 H ABG HCO3 22.8 27.4 H ABG O2 Saturation 90.4 L 98.7 H ABG Base Excess 1.8 3.1 FiO2 90% 60% Sodium Potassium Chloride Carbon Dioxide Anion Gap BUN Creatinine Est GFR ( Amer) Glucose Lactic Acid Calcium Ionized Calcium Corina Phosphorus Magnesium Total Bilirubin AST Alkaline Phosphatase Total Protein Albumin Urine Color STRAW Urine Appearance CLEAR Urine pH 8.0 Ur Specific Cardale 1.005 Urine Protein NEGATIVE Urine Glucose (UA) 150 H Urine Ketones NEGATIVE Urine Blood MODERATE H Urine Nitrite NEGATIVE Ur Leukocyte Esterase NEGATIVE Urine WBC (Auto) 1 Urine RBC (Auto) 44 07/08/20 07/08/20 07/09/20 20:21 20:21 04:00 WBC 17.9 H RBC 3.85 L Hgb 10.7 L Hct 32.4 L MCV 84 MCH 27.8 MCHC 33.1 RDW 19.5 H Plt Count 133 L Seg Neutrophils % Not Reportable Carbonic Acid HCO3/H2CO3 Ratio ABG pH ABG pCO2 ABG pO2 ABG HCO3 ABG O2 Saturation ABG Base Excess FiO2 Sodium 130.8 L Potassium 3.0 L* Chloride 95 L Carbon Dioxide 30 Anion Gap 6 BUN 27 H Creatinine 1.33 H Est GFR ( Amer) > 60 Glucose 231 H Lactic Acid 3.1 H Calcium 7.4 L Ionized Calcium [place] Phosphorus Magnesium 1.9 Total Bilirubin AST Alkaline Phosphatase Total Protein Albumin Urine Color Urine Appearance Urine pH Ur Specific Cardale Urine Protein Urine Glucose (UA) Urine Ketones Urine Blood Urine Nitrite Ur Leukocyte Esterase Urine WBC (Auto) Urine RBC (Auto) 07/09/20 07/09/20 07/09/20 04:00 04:00 04:00 WBC RBC Hgb Hct MCV MCH MCHC RDW Plt Count Seg Neutrophils % Carbonic Acid 1.07 HCO3/H2CO3 Ratio 24:1 ABG pH 7.49 H ABG pCO2 35.4 ABG pO2 74.9 L ABG HCO3 26.5 H ABG O2 Saturation 96.1 ABG Base Excess 3.3 FiO2 40% Sodium 132.4 L Potassium 4.4 D Chloride 97 L Carbon Dioxide 31 H Anion Gap 5 BUN 29 H Creatinine 1.44 H Est GFR ( Amer) > 60 Glucose 127 H Lactic Acid 1.7 Calcium 7.5 L Ionized Calcium Corina Phosphorus 1.6 L Magnesium 2.0 Total Bilirubin 1.0 AST 43 Alkaline Phosphatase 166 H Total Protein 5.2 L Albumin 2.1 L Urine Color Urine Appearance Urine pH Ur Specific Cardale Urine Protein Urine Glucose (UA) Urine Ketones Urine Blood Urine Nitrite Ur Leukocyte Esterase Urine WBC (Auto) Urine RBC (Auto) 06/07/20 06/07/20 06/07/20 12:24 12:24 15:08 Creatine Kinase 34 L CK-MB (CK-2) Troponin I 0.035 0.041 NT-Pro-B Natriuret Pep 06/07/20 06/07/20 06/08/20 16:45 22:01 05:25 Creatine Kinase 35 L 40 L 35 L CK-MB (CK-2) Troponin I NT-Pro-B Natriuret Pep 06/08/20 06/29/20 06/29/20 05:25 07:30 07:30 Creatine Kinase 27 L CK-MB (CK-2) 1.04 Troponin I 0.028 NT-Pro-B Natriuret Pep 55356 H 06/29/20 06/29/20 06/29/20 15:11 15:11 20:37 Creatine Kinase 39 L CK-MB (CK-2) 2.04 Troponin I 0.142 0.166 NT-Pro-B Natriuret Pep 06/30/20 07/08/20 07/08/20 05:00 14:20 14:20 Creatine Kinase 51 L CK-MB (CK-2) 1.95 Troponin I 0.119 0.105 NT-Pro-B Natriuret Pep 07/08/20 14:20 Creatine Kinase CK-MB (CK-2) Troponin I NT-Pro-B Natriuret Pep [id number] H Impressions: Head CT 06/07/20 13:02 IMPRESSION: Stable CT of the brain with bifrontal encephalomalacia. No acute intracranial event. EVIDENCE OF ACUTE STROKE: NO. Thoracentesis Ultrasound 06/08/20 00:00 IMPRESSION: SUCCESSFUL THORACENTESIS AND CHEST TUBE PLACEMENT USING ULTRASOUND GUIDANCE. Abdomen/Pelvis CT 06/17/20 00:00 IMPRESSION: 1. Small bowel obstruction with transition point in the left mid abdomen. This may be a high-grade partial obstruction. Distal small bowel and colon are decompressed. 2. Marked urinary bladder distention, suggestive of bladder outlet obstruction. Clinical correlation is recommended. 3. Loculated right hydropneumothorax and small left pleural effusion, not signi ficantly changed. Compressive atelectasis at the lung bases. 4. Moderate ascites, slightly decreased from previous examination. 5. Mildly nodular contour of the liver, nonspecific however could indicate underlying hepatic cirrhosis. Clinical correlation is with recommended. 6. Diffuse subcutaneous edema, suggestive of fluid overload. 7. Colonic diverticulosis without evidence of diverticulitis. KUB X-Ray 06/22/20 00:00 IMPRESSION: Partial small bowel obstruction Chest CT 06/25/20 00:00 IMPRESSION: Loculated right hydropneumothorax which appears similar at the right lung base from the abdominal CT dated 06/17/2020. Slight interval increase in left pleural effusion. Moderate ascites with a similar nonspecific nodular hepatic contour and slight heterogeneous hepatic attenuation. Paracentesis Ultrasound 07/01/20 08:26 IMPRESSION: SUCCESSFUL ULTRASOUND GUIDED PARACENTESIS. All labs, radiographs, diagnostic studies and EKGs were personally reviewed: Yes In addition, reports of radiographic and diagnostic studies were read: Yes Assessment and Plan - Diagnosis (1) Acute hypoxemic respiratory failure due to COVID-19 Is this a current diagnosis for this admission?: Yes Plan: During his hospitalization, the patient has already been treated with remdesivir, vitamin C, zinc sulfate, Decadron. However, this patient's acute hypoxemic respiratory failure is clearly multifactorial and may be more severely impacted by his hypoalbuminemic state, dilated cardiomyopathy and volume overload. The patient needs optimization of his intravascular volume status. Target CVP 6. 25% albumin 50 g IV followed by furosemide 40 mg IV single dose today. (2) Shock Is this a current diagnosis for this admission?: Yes Plan: Repeat venous blood gas for SPO2. Wean Levophed as tolerated. Continue milrinone. (3) Volume overload Qualifiers: Hypervolemia type: unspecified Qualified Code(s): E87.70 - Fluid overload, unspecified Is this a current diagnosis for this admission?: Yes Plan: Avoid unnecessary IV fluid administration. Continue to monitor urine output on milrinone. CVP monitoring. (4) Acute decompensated heart failure Is this a current diagnosis for this admission?: Yes Plan: Of note, the patient is +6.6 L (net) over the past week. He needs to achieve net negative fluid balance. (5) Dilated cardiomyopathy Is this a current diagnosis for this admission?: Yes (6) Atrial flutter with rapid ventricular response Is this a current diagnosis for this admission?: Yes Plan: Currently, he appears to be in sinus tachycardia. Nonetheless, in light of his mechanical mitral valve, it is imperative that he remain fully anticoagulated. Continue heparin infusion. (7) Acute worsening of stage 3 chronic kidney disease Is this a current diagnosis for this admission?: Yes Plan: Nephrology help appreciated. Hemodialysis per nephrology. Monitor urine output. (8) Wound infection following procedure Is this a current diagnosis for this admission?: Yes Plan: Continue levofloxacin for coverage of MSSA and Stenotrophomonas maltophilia. Stop azithromycin. (9) Pleural effusion Is this a current diagnosis for this admission?: Yes Plan: 06/08: loculated R pleural effusion. chest tube placed. 06/10: draining at least 1 L/day. 06/12: chest tube is leaking. 06/17: chest tube removed. (10) Mechanical heart valve present Is this a current diagnosis for this admission?: Yes Plan: Mechanical mitral valve. On heparin bridge to Coumadin. Goal INR 2.5-3.5. (11) Protein-energy malnutrition Qualifiers: Protein-calorie malnutrition severity: mild Qualified Code(s): E44.1 - Mild protein-calorie malnutrition Is this a current diagnosis for this admission?: Yes Plan: On TPN. Critical Time Critical Time (minutes): 60 Level of Care: ICU -: 1. The care of a critical patient is a dynamic process. This note is a customer retention representative synopsis but static in nature. The timeframe for treatments given in order is not necessarily the actual time these treatments may have been done. 2. This patient requires critical care secondary to ongoing requirements for therapy not offered or safe outside the critical care environment. Transfer to a lower level of care will result in altered life or limb morbidity and mortality. 3. Multidisciplinary rounds completed. 4. ABCDE bundle addressed.
[2020-07-09] MEDS ORDERED: BUMETANIDE INJ/PF 1 MG/4 ML SDV IV ONE ×2 (18:00→23:14)
[2020-07-09] MEDS: PANTOPRAZOLE SODIUM 40 MG VIAL IV SCH (18:05)
[2020-07-09] MEDS: AMINO ACIDS 5 %/DEXTROSE 20 % 1,000 ML IV PRN (18:05)
[2020-07-09] MEDS: ALBUTEROL SULFATE 0.083% NEB 2.5 MG/3 ML AMPUL NEB PRN (20:15)
[2020-07-09] MEDS: PHARMACY COMMUNICATION ORDER MC SCH (21:45)
[2020-07-09] MEDS: ATORVASTATIN CALCIUM 40 MG TABLET NG SCH (21:50)
[2020-07-10] MEDS: DEXTROSE 5%-WATER 250 ML with NOREPINEPHRINE BITARTRATE 4 MG IV PRN ×6 (03:40→22:04)
[2020-07-10] MEDS: MORPHINE SULFATE 10 MG/ML INJ IV SCH ×5 (04:14→20:08)
[2020-07-10 04:36] LABS: ARTERIAL BLOOD BASE EXCESS 4.2 mmol/L; ARTERIAL BLOOD FIO2 35%; ARTERIAL BLOOD H2CO3 1.27 mmol/L (1.05-1.35); ARTERIAL BLOOD HCO3 28.6 mmol/L (20-24); ARTERIAL BLOOD O2 SATURATION 96.6 % (94-98); ARTERIAL BLOOD PCO2 42.2 mmHg (35-45); ARTERIAL BLOOD PH 7.45 (7.35-7.45); ARTERIAL BLOOD PO2 83.1 mmHg (80-100); ARTERIAL BLOOD TOTAL CO2 29.9 mmol/L (23-27)
[2020-07-10 04:45] LABS: ANION GAP 6 (5-19); BLOOD UREA NITROGEN 39 mg/dL (7-20); CARBON DIOXIDE 30 mmol/L (22-30); CHLORIDE 93 mmol/L (98-107); GLUCOSE 178 mg/dL (75-110); POTASSIUM 4.3 mmol/L (3.6-5.0)
[2020-07-10] MEDS: MILRINONE LACTATE/D5W 20 MG/100 ML RTUINJ IV PRN ×3 (05:35→20:08)
[2020-07-10] MEDS: DEXAMETHASONE SOD PHOSPHATE INJ 4 MG/1 ML VIAL IV SCH ×3 (05:37→22:02)
[2020-07-10 05:50] LABS: HEMATOCRIT 26.8 % (37.9-51.0); HEMOGLOBIN 8.9 g/dL (13.5-17.0); MEAN CORPUSCULAR HEMOGLOBIN 27.9 pg (27.0-33.4); MEAN CORPUSCULAR HGB CONC 33.4 g/dL (32.0-36.0); MEAN CORPUSCULAR VOLUME 84 fl (80-97); PLATELET COUNT 110 10^3/uL (150-450); RED BLOOD COUNT 3.21 10^6/uL (4.35-5.55); RED CELL DISTRIBUTION WIDTH 19.5 % (11.5-14.0); WHITE BLOOD COUNT 17.4 10^3/uL (4.0-10.5)
[2020-07-10] MEDS: HEPARIN SOD (PORCINE) 1,000 UNIT/ML 10 ML VIAL IV PRN ×2 (05:56→17:48)
[2020-07-10] MEDS: INSULIN REG, HUMAN 100 UNIT/ML 3 ML VIAL (PYX) SUBCUT SCH ×3 (05:56→17:43)
[2020-07-10] MEDS: HEPARIN SODIUM,PORCINE/D5W 25,000 UNIT/250 ML RTUINJ IV PRN (05:58)
[2020-07-10] MEDS ORDERED: BUMETANIDE INJ/PF 1 MG/4 ML SDV IV ONE ×2 (08:45→18:00)
[2020-07-10] MEDS: LIDOCAINE 5% (700 MG) TRANSDERMAL ADH..PATCH TP SCH (09:09)
[2020-07-10] MEDS: LEVOFLOXACIN 500 MG/D5W RTU 500 MG/100 ML RTUPB IV SCH (09:09)
[2020-07-10] MEDS: METOPROLOL TARTRATE 50 MG TABLET NG SCH ×2 (09:10→22:01)
[2020-07-10] MEDS: ASCORBIC ACID 500 MG TABLET NG SCH ×2 (09:10→17:49)
[2020-07-10] MEDS: PANTOPRAZOLE SODIUM 40 MG VIAL IV SCH (09:10)
[2020-07-10] MEDS: ZINC SULFATE 220 MG CAPSULE NG SCH (09:10)
[2020-07-10] MEDS: DEXMEDETOMIDINE IN 0.9 % NACL 400 MCG/100 ML RTUPB IV PRN (12:01)
[2020-07-10 13:11] LABS: ARTERIAL BLOOD BASE EXCESS 3.4 mmol/L; ARTERIAL BLOOD FIO2 100%; ARTERIAL BLOOD H2CO3 1.27 mmol/L (1.05-1.35); ARTERIAL BLOOD O2 SATURATION 99.8 % (94-98); ARTERIAL BLOOD PCO2 42.3 mmHg (35-45); ARTERIAL BLOOD PH 7.44 (7.35-7.45); ARTERIAL BLOOD PO2 343.3 mmHg (80-100); ARTERIAL BLOOD TOTAL CO2 29.3 mmol/L (23-27)
--- NOTE | 2020-07-10 14:03 | RADIOLOGY REPORT (SQ) ---
EXAM DESCRIPTION: CHEST SINGLE VIEW IMAGES COMPLETED DATE/TIME: 07/10/2020 1:08 pm REASON FOR STUDY: recheck ett placement COMPARISON: 07/09/2020 0530 hours EXAM PARAMETERS: NUMBER OF VIEWS: One view TECHNIQUE: Single frontal radiograph of the chest. RADIATION DOSE: N/A LIMITATIONS: None. FINDINGS: TEMPORARY SUPPORT DEVICES:ETT in expected location. NG tube courses below the dea-diaphr agm in to the stomach. Dual lumen venous access catheter right atrium. Right IJ catheter tip cavoatr ial junction parenchymal opacities and pleural changes bilateral left greater than right. No change . LUNGS AND PLEURA: No opacities. No effusions. No masses. No pneumothorax. MEDIASTINUM AND HILAR STRUCTURES: No masses. Contour normal. HEART AND VASCULAR STRUCTURES: Heart normal in size. normal vascularity. Aorta normal for age. BONES: Sternal wires. OTHER: No other significant finding. IMPRESSION: NO ACUTE RADIOGRAPHIC FINDING IN THE CHEST. SUPPORT DEVICE(S) IN EXPECTED LOCATIONS. TECHNICAL DOCUMENTATION: JOB ID: [id number] 2010 [employer]- All Rights Reserved Reading location - IP/workstation name: [email or web address]
[2020-07-10] MEDS: AMINO ACIDS 5 %/DEXTROSE 20 % 1,000 ML IV PRN (15:36)
[2020-07-10] MEDS ORDERED: NITROGLYCERIN 5 MG (0.2 MG/HR) PATCH.TD24 TD ONE (17:02)
--- NOTE | 2020-07-10 17:36 | PDOC CRITICAL CARE PROG REPORT ---
General Date:: 07/10/20 ICU Day:: 3 Hospital Day:: 34 Resuscitation Status: Full Code Events in the past 12 to 24 Hours:: This 59-year-old male is seen in consultation at the request of Dr. Ray Ren for recommendations on further evaluation and management of his post CPR resuscitation. Rapid response team was called earlier this morning for worsening hypoxemia and respiratory distress, which apparently developed while the patient was getting situated for his hemodialysis session today. This deteriorated to CODE BLUE/PEA arrest. ROSC was achieved after 10 minutes of CPR. He was intubated and transferred to the ICU. No CODE BLUE documentation EMR. He was originally admitted on 06/07/2020, when he presented with increasing shortness of breath. The patient's nephew reportedly called EMS with concerns about the patient's poor living conditions. Patient was apparently found to be tachycardic. Rhythm analysis apparently led them to believe that it was ventricular tachycardia, and the patient was cardioverted. He was admitted to [facility] from the emergency room and has had a very complicated course. He has developed ascites, small bowel obstruction, possible liver cirrhosis, right hydropneumothorax (treated with chest tube drainage, removed 06/17 [previously incorrectly documented as 07/07]) and subcutaneous edema secondary to fluid overload among other pathologies. Wound cultures suggest that the chest tube site may be infected. 07/09: The patient did undergo hemodialysis yesterday. Of note, he has also produced 1600 mL of urine yesterday in the ICU (over approximately 20 hours), which appears to be secondary to improved hemodynamics while on milrinone infusion. This was started after the patient failed to demonstrate significant improvement in blood pressure while on Levophed. CVP at the time of transfer to ICU was severely elevated (35). Currently on Levophed and milrinone. He is on Precedex and morphine for sedation. He is arousable. He follows commands. Appears to be neurologically intact despite requiring CPR yesterday. Chest x- ray today is compatible with pulmonary edema with bilateral pleural effusions (R > L). On PRVC mode. AB.49/35/75. WBC 17.9. On TPN. On levofloxacin/a zithromycin. Wound culture from the right chest tube site isolated Staphylococcus aureus (MSSA) and Stenotrophomonas maltophilia. 8/16: Remains intubated. Urine output decreasing. Milrinone was decreased to 0.25 mcg/kg/min overnight. Appears to have a better response to Bumex than furosemide but still modest. CVP 15. Still on Levophed. He is awake, follows commands. On SIMV (PRVC) mode. ABG this a.m.: 7.45/42/83. WBC 17.9>17.4. On levofloxacin for coverage of MSSA and Stenotrophomonas wound infection. Review of systems relevant to events:: Respiratory: Shortness of breath, pleural effusions Cardiovascular: Atrial fibrillation with rapid ventricular response, tachyarrhythmia, dilated cardiomyopathy, mechanical mitral valve Gastrointestinal: Ascites, protein calorie malnutrition Renal: Hemodialysis dependent chronic kidney disease Reason for ICU Addmission:: Post CPR resuscitation; endotracheally intubated - Medications: Medications reviewed and adjusted accordingly: Yes Vasopressors:: Levophed, milrinone Sedation:: Propofol, morphine Physical Exam Vital Signs: Temp Pulse Resp BP Pulse Ox 96.6 F L 124 H 12 85/72 L 98 07/10/20 10:00 07/09/20 20:58 07/10/20 10:00 07/10/20 09:35 07/10/20 10:00 Intake & Output 07/09/20 07/10/20 07/11/20 06:59 06:59 06:59 Intake Total 2613 997 117 Output Total 2792 1950 370 Balance -179 -953 -253 Weight 59.5 kg 60.8 kg Weight/Height Weight 60.8 kg Height 1.63 m General appearance: PRESENT: no acute distress, well-developed, well-nourished Head exam: PRESENT: atraumatic, normocephalic Eye exam: PRESENT: conjunctiva pink, EOMI, PERRLA. ABSENT: scleral icterus Mouth exam: PRESENT: moist, tongue midline Neck exam: ABSENT: carotid bruit, JVD, lymphadenopathy, thyromegaly Respiratory exam: PRESENT: crackles, unlabored. ABSENT: prolonged expiratory phas, rhonchi, wheezes Cardiovascular exam: PRESENT: RRR. ABSENT: diastolic murmur, rubs, systolic murmur Pulses: PRESENT: normal dorsalis pedis pul GI/Abdominal exam: PRESENT: normal bowel sounds, soft. ABSENT: distended, guarding, mass, organolmegaly, rebound, tenderness Extremities exam: PRESENT: full ROM, pedal edema, +1 edema. ABSENT: calf tenderness, clubbing Neurological exam: PRESENT: awake, reflexes normal, CN II-XII grossly intact. ABSENT: motor sensory deficit Psychiatric exam: ABSENT: agitated, anxious Skin exam: PRESENT: dry, intact, warm. ABSENT: cyanosis, rash Tubes/Lines: PRESENT: Endotracheal Tube, Central Line - Right IJ, Dialysis catheter - Left subclavian Laboratory/Radiographs Laboratory Results: 07/10/20 04:15 07/10/20 04:15 07/09/20 07/10/20 07/10/20 16:48 04:15 04:15 WBC RBC Hgb Hct MCV MCH MCHC RDW Plt Count Carbonic Acid 1.17 1.27 HCO3/H2CO3 Ratio 22:1 22:1 ABG pH 7.45 7.45 ABG pCO2 38.8 42.2 ABG pO2 109.1 H 83.1 ABG HCO3 26.4 H 28.6 H ABG O2 Saturation 98.2 H 96.6 ABG Base Excess 2.3 4.2 FiO2 40% 35% Sodium 129.2 L Potassium 4.3 Chloride 93 L Carbon Dioxide 30 Anion Gap 6 BUN 39 H Creatinine 1.55 H Est GFR ( Amer) 56 L Glucose 178 H Calcium 8.0 L Magnesium 2.2 07/10/20 04:15 WBC 17.4 H RBC 3.21 L Hgb 8.9 L Hct 26.8 L MCV 84 MCH 27.9 MCHC 33.4 RDW 19.5 H Plt Count 110 L Carbonic Acid HCO3/H2CO3 Ratio ABG pH ABG pCO2 ABG pO2 ABG HCO3 ABG O2 Saturation ABG Base Excess FiO2 Sodium Potassium Chloride Carbon Dioxide Anion Gap BUN Creatinine Est GFR ( Amer) Glucose Calcium Magnesium 06/07/20 06/07/20 06/07/20 12:24 12:24 15:08 Creatine Kinase 34 L CK-MB (CK-2) Troponin I 0.035 0.041 NT-Pro-B Natriuret Pep 06/07/20 06/07/20 06/08/20 16:45 22:01 05:25 Creatine Kinase 35 L 40 L 35 L CK-MB (CK-2) Troponin I NT-Pro-B Natriuret Pep 06/08/20 06/29/2020 05:25 07:30 07:30 Creatine Kinase 27 L CK-MB (CK-2) 1.04 Troponin I 0.028 NT-Pro-B Natriuret Pep 73900 H 06/29/20 06/29/20 06/29/20 15:11 15:11 20:37 Creatine Kinase 39 L CK-MB (CK-2) 2.04 Troponin I 0.142 0.166 NT-Pro-B Natriuret Pep 06/30/20 07/08/20 07/08/20 05:00 14:20 14:20 Creatine Kinase 51 L CK-MB (CK-2) 1.95 Troponin I 0.119 0.105 NT-Pro-B Natriuret Pep 07/08/20 14:20 Creatine Kinase CK-MB (CK-2) Troponin I NT-Pro-B Natriuret Pep [id number] H Impressions: Head CT 06/07/20 13:02 IMPRESSION: Stable CT of the brain with bifrontal encephalomalacia. No acute intracranial event. EVIDENCE OF ACUTE STROKE: NO. Thoracentesis Ultrasound 06/08/20 00:00 IMPRESSION: SUCCESSFUL THORACENTESIS AND CHEST TUBE PLACEMENT USING ULTRASOUND GUIDANCE. Abdomen/Pelvis CT 06/17/20 00:00 IMPRESSION: 1. Small bowel obstruction with transition point in the left mid abdomen. This may be a high-grade partial obstruction. Distal small bowel and colon are decompressed. 2. Marked urinary bladder distention, suggestive of bladder outlet obstruction. Clinical correlation is recommended. 3. Loculated right hydropneumothorax and small left pleural effusion, not significantly changed. Compressive atelectasis at the lung bases. 4. Moderate ascites, slightly decreased from previous examination. 5. Mildly nodular contour of the liver, nonspecific however could indicate underlying hepatic cirrhosis. Clinical correlation is with recommended. 6. Diffuse subcutaneous edema, suggestive of fluid overload. 7. Colonic diverticulosis without evidence of diverticulitis. KUB X-Ray 06/22/20 00:00 IMPRESSION: Partial small bowel obstruction Chest CT 06/25/20 00:00 IMPRESSION: Loculated right hydropneumothorax which appears similar at the right lung base from the abdominal CT dated 06/17/2020. Slight interval increase in left pleural effusion. Moderate ascites with a similar nonspecific nodular hepatic contour and slight heterogeneous hepatic attenuation. Paracentesis Ultrasound 07/01/20 08:26 IMPRESSION: SUCCESSFUL ULTRASOUND GUIDED PARACENTESIS. Chest X-Ray 07/09/20 05:00 IMPRESSION: Tubes and lines in expected position. Similar radiographic appearance. All labs, radiographs, diagnostic studies and EKGs were personally reviewed: Yes In addition, reports of radiographic and diagnostic studies were read: Yes Assessment and Plan - Diagnosis (1) Acute hypoxemic respiratory failure due to COVID-19 Is this a current diagnosis for this admission?: Yes Plan: * During his hospitalization, the patient has already been treated with remdesivir, vitamin C, zinc sulfate, Decadron. * However, this patient's acute hypoxemic respiratory failure is clearly multifactorial and may be more severely impacted by his hypoalbuminemic state, dilated cardiomyopathy and volume overload. * The patient needs optimization of his intravascular volume status. Target CVP 6. * Bumex 1 mg IV single dose today. (2) Shock Is this a current diagnosis for this admission?: Yes Plan: * Repeat venous blood gas for SPO2. * Wean Levophed as tolerated. * Continue milrinone. (3) Volume overload Qualifiers: Hypervolemia type: unspecified Qualified Code(s): E87.70 - Fluid overload, unspecified Is this a current diagnosis for this admission?: Yes Plan: * Dialysis in a.m. * Avoid unnecessary IV fluid administration. * Continue to monitor urine output on milrinone. * CVP monitoring. (4) Acute decompensated heart failure Is this a current diagnosis for this admission?: Yes Plan: * Of note, the patient is +6.6 L (net) over the past week. * He needs to achieve net negative fluid balance. (5) Dilated cardiomyopathy Is this a current diagnosis for this admission?: Yes (6) Atrial flutter with rapid ventricular response Is this a current diagnosis for this admission?: Yes Plan: * Currently, he appears to be in sinus tachycardia. Nonetheless, in light of his mechanical mitral valve, it is imperative that he remain fully anticoagulated. * Continue heparin infusion. (7) Acute worsening of stage 3 chronic kidney disease Is this a current diagnosis for this admission?: Yes (8) Wound infection following procedure Is this a current diagnosis for this admission?: Yes Plan: * Continue levofloxacin (minimum 7-day course) for coverage of MSSA and Sten otrophomonas maltophilia. * Duration of therapy should be reevaluated at day 7 due to risk for parapneumonic effusion/empyema. (9) Pleural effusion Is this a current diagnosis for this admission?: Yes Plan: Chest x-ray in a.m. 06/08: loculated R pleural effusion. chest tube placed. 06/10: draining at least 1 L/day. 06/12: chest tube is leaking. 06/17: chest tube removed. (10) Mechanical heart valve present Is this a current diagnosis for this admission?: Yes (11) Protein-energy malnutrition Qualifiers: Protein-calorie malnutrition severity: mild Qualified Code(s): E44.1 - Mild protein-calorie malnutrition Is this a current diagnosis for this admission?: Yes Plan: On TPN. Critical Time Critical Time (minutes): 90 Level of Care: ICU -: 1. The care of a critical patient is a dynamic process. This note is a security systems sales representative synopsis but static in nature. The timeframe for treatments given in order is not necessarily the actual time these treatments may have been done. 2. This patient requires critical care secondary to ongoing requirements for therapy not offered or safe outside the critical care environment. Transfer to a lower level of care will result in altered life or limb morbidity and mortality. 3. Multidisciplinary rounds completed. 4. ABCDE bundle addressed.
[2020-07-10] MEDS: ATORVASTATIN CALCIUM 40 MG TABLET NG SCH (22:01)
[2020-07-10] MEDS: PHARMACY COMMUNICATION ORDER MC SCH (22:03)
[2020-07-11] MEDS: INSULIN REG, HUMAN 100 UNIT/ML 3 ML VIAL (PYX) SUBCUT SCH ×4 (00:42→17:17)
[2020-07-11] MEDS: MORPHINE SULFATE 10 MG/ML INJ IV SCH ×6 (00:43→20:25)
[2020-07-11] MEDS: DEXMEDETOMIDINE IN 0.9 % NACL 400 MCG/100 ML RTUPB IV PRN ×2 (00:46→17:19)
[2020-07-11] MEDS: ALBUTEROL SULFATE 0.083% NEB 2.5 MG/3 ML AMPUL NEB PRN (02:12)
[2020-07-11 04:18] LABS: ARTERIAL BLOOD BASE EXCESS 2.6 mmol/L; ARTERIAL BLOOD H2CO3 1.43 mmol/L (1.05-1.35); ARTERIAL BLOOD O2 SATURATION 94.1 % (94-98); ARTERIAL BLOOD PCO2 47.4 mmHg (35-45); ARTERIAL BLOOD PH 7.39 (7.35-7.45); ARTERIAL BLOOD PO2 71.4 mmHg (80-100); ARTERIAL BLOOD TOTAL CO2 29.5 mmol/L (23-27)
[2020-07-11 04:20] LABS: ARTERIAL BLOOD FIO2 40%
[2020-07-11 04:33] LABS: HEMATOCRIT 25.4 % (37.9-51.0); HEMOGLOBIN 8.3 g/dL (13.5-17.0); MEAN CORPUSCULAR HEMOGLOBIN 27.8 pg (27.0-33.4); MEAN CORPUSCULAR HGB CONC 32.7 g/dL (32.0-36.0); MEAN CORPUSCULAR VOLUME 85 fl (80-97); PLATELET COUNT 128 10^3/uL (150-450); RED BLOOD COUNT 2.99 10^6/uL (4.35-5.55); RED CELL DISTRIBUTION WIDTH 19.5 % (11.5-14.0); WHITE BLOOD COUNT 18.2 10^3/uL (4.0-10.5)
[2020-07-11 04:34] LABS: ABSOLUTE LYMPHOCYTES# (MANUAL) 0.5 10^3/uL (0.5-4.7); ABSOLUTE MONOCYTES # (MANUAL) 0.4 10^3/uL (0.1-1.4); BAND NEUTROPHILS % (MANUAL) 2 % (3-5); BASOPHILS % (MANUAL) 0 % (0-2); EOSINOPHILS % (MANUAL) 0 % (0-6); LYMPHOCYTES % (MANUAL) 3 % (13-45); MONOCYTES % (MANUAL) 2 % (3-13); SEGMENTED NEUTROPHILS % (MAN) 93 % (42-78); TOTAL CELLS COUNTED 100
[2020-07-11 04:35] LABS: ANISOCYTOSIS 1+; POLYCHROMASIA 2+
[2020-07-11 04:36] LABS: PLATELET COMMENT ADEQUATE
[2020-07-11 04:41] LABS: ALBUMIN 2.4 g/dL (3.5-5.0); ALKALINE PHOSPHATASE 131 U/L (38-126); ANION GAP 8 (5-19); ASPARTATE AMINO TRANSFERASE 42 U/L (17-59); BILIRUBIN,DIRECT 0.4 mg/dL (0.0-0.4); BILIRUBIN,TOTAL 0.9 mg/dL (0.2-1.3); BLOOD UREA NITROGEN 44 mg/dL (7-20); CALCIUM 7.6 mg/dL (8.4-10.2); CARBON DIOXIDE 28 mmol/L (22-30); CHLORIDE 89 mmol/L (98-107); GLUCOSE 180 mg/dL (75-110); PHOSPHORUS 2.7 mg/dL (2.5-4.5); POTASSIUM 4.6 mmol/L (3.6-5.0); TRIGLYCERIDES 40 mg/dL (<150)
[2020-07-11 04:48] LABS: PREALBUMIN 12.3 mg/dL (17.6-36.0)
[2020-07-11] MEDS ORDERED: EPOETIN ALFA-EPBX 20,000 UNIT in SYRINGE, DISPOSABLE, 1 EACH IV PRN (05:00)
[2020-07-11] MEDS ORDERED: HEPARIN SOD (PORCINE) 1,000 UNIT/ML 10 ML VIAL IV PRN (05:00)
[2020-07-11] MEDS: DEXAMETHASONE SOD PHOSPHATE INJ 4 MG/1 ML VIAL IV SCH ×3 (05:51→22:26)
[2020-07-11] MEDS ORDERED: BUMETANIDE INJ/PF 1 MG/4 ML SDV IV ONE ×2 (08:10→10:30)
[2020-07-11] MEDS: DEXTROSE 5%-WATER 250 ML with NOREPINEPHRINE BITARTRATE 4 MG IV PRN ×6 (08:14→22:29)
--- NOTE | 2020-07-11 08:24 | RADIOLOGY REPORT (SQ) ---
EXAM DESCRIPTION: CHEST SINGLE VIEW IMAGES COMPLETED DATE/TIME: 07/11/2020 6:10 am REASON FOR STUDY: ETT tube COMPARISON: 07/10/2020 NUMBER OF VIEWS: One view. TECHNIQUE: Single frontal radiographic image of the chest acquired. LIMITATIONS: None. FINDINGS: LUNGS AND PLEURA: Stable appearance. MEDIASTINUM AND HILAR STRUCTURES: Stable heart size and mediastinal structures. HEART AND VASCULAR STRUCTURES: Stable appearance. SUPPORT DEVICES: Appropriate location without change. BONES: No acute findings. OTHER: No other significant finding. IMPRESSION: STABLE APPEARANCE OF THE CHEST. SUPPORT DEVICES UNCHANGED. TECHNICAL DOCUMENTATION: JOB ID: [id number] 2010 [employer]- All Rights Reserved Reading location - IP/workstation name: [email or web address]
[2020-07-11] MEDS: PANTOPRAZOLE SODIUM 40 MG VIAL IV SCH (10:19)
[2020-07-11] MEDS: LIDOCAINE 5% (700 MG) TRANSDERMAL ADH..PATCH TP SCH ×2 (10:21)
[2020-07-11] MEDS: METOPROLOL TARTRATE 50 MG TABLET NG SCH ×2 (10:22→22:27)
[2020-07-11] MEDS: ASCORBIC ACID 500 MG TABLET NG SCH ×2 (10:22→17:16)
[2020-07-11] MEDS: ZINC SULFATE 220 MG CAPSULE NG SCH (10:22)
[2020-07-11] MEDS: MILRINONE LACTATE/D5W 20 MG/100 ML RTUINJ IV PRN ×2 (10:23→22:28)
--- NOTE | 2020-07-11 11:23 | PDOC PROGRESS REPORT ---
Subjective Progress Note for:: 07/11/20 Reason For Visit: Patient seen in the ICU with you today on dialysis. Intubated but not sedated and partially responsive. Undergoing dialysis but blood pressure is rather tenuous in spite of being on pressors. Unable therefore to remove much of fluid. Dialysis orders were reviewed with the treating dialysis nurse. Labs and medications were reviewed. Physical Exam Vital Signs: Temp Pulse Resp BP Pulse Ox 97.7 F 137 H 15 91/66 L 100 07/11/20 06:36 07/11/20 09:19 07/11/20 09:19 07/11/20 06:36 07/11/20 09:19 Intake & Output 07/10/20 07/11/20 07/12/20 06:59 06:59 06:59 Intake Total 997 712 347 Output Total 3256 1705 45 Balance -953 -993 302 Weight 60.8 kg 63.1 kg General appearance: PRESENT: mild distress Results Laboratory Results: 07/11/20 03:45 07/11/20 03:45 07/10/20 07/11/20 07/11/20 12:58 03:45 03:45 WBC 18.2 H RBC 2.99 L Hgb 8.3 L Hct 25.4 L MCV 85 MCH 27.8 MCHC 32.7 RDW 19.5 H Plt Count 128 L Seg Neutrophils % Not Reportable Carbonic Acid 1.27 1.43 H HCO3/H2CO3 Ratio 22:1 19:1 ABG pH 7.44 7.39 ABG pCO2 42.3 47.4 H ABG pO2 343.3 H 71.4 L ABG HCO3 28.0 H 28.0 H ABG O2 Saturation 99.8 H 94.1 ABG Base Excess 3.4 2.6 FiO2 100% 40% Sodium Potassium Chloride Carbon Dioxide Anion Gap BUN Creatinine Est GFR ( Amer) Glucose Calcium Phosphorus Magnesium Total Bilirubin AST Alkaline Phosphatase Total Protein Albumin Prealbumin Triglycerides 07/11/20 03:45 WBC RBC Hgb Hct MCV MCH MCHC RDW Plt Count Seg Neutrophils % Carbonic Acid HCO3/H2CO3 Ratio ABG pH ABG pCO2 ABG pO2 ABG HCO3 ABG O2 Saturation ABG Base Excess FiO2 Sodium 124.8 L Potassium 4.6 Chloride 89 L Carbon Dioxide 28 Anion Gap 8 BUN 44 H Creatinine 1.51 H Est GFR ( Amer) 58 L Glucose 180 H Calcium 7.6 L Phosphorus 2.7 Magnesium 2.2 Total Bilirubin 0.9 AST 42 Alkaline Phosphatase 131 H Total Protein 5.0 L Albumin 2.4 L Prealbumin 12.3 L Triglycerides 40 07/09/20 12:15 Tracheal Aspirate Gram Stain - Final 07/09/20 12:15 Tracheal Aspirate Sputum Culture - Final Yeast, Not Isabel Albicans Greatly Reduced Normal Cynthia 06/07/20 06/07/20 06/07/20 12:24 12:24 15:08 Creatine Kinase 34 L CK-MB (CK-2) Troponin I 0.035 0.041 NT-Pro-B Natriuret Pep 06/07/20 06/07/20 06/08/20 16:45 22:01 05:25 Creatine Kinase 35 L 40 L 35 L CK-MB (CK-2) Troponin I NT-Pro-B Natriuret Pep 06/08/20 06/29/20 06/29/20 05:25 07:30 07:30 Creatine Kinase 27 L CK-MB (CK-2) 1.04 Troponin I 0.028 NT-Pro-B Natriuret Pep 69178 H 06/29/20 06/29/20 06/29/20 15:11 15:11 20:37 Creatine Kinase 39 L CK-MB (CK-2) 2.04 Troponin I 0.142 0.166 NT-Pro-B Natriuret Pep 06/30/20 07/08/20 07/08/20 05:00 14:20 14:20 Creatine Kinase 51 L CK-MB (CK-2) 1.95 Troponin I 0.119 0.105 NT-Pro-B Natriuret Pep 07/08/20 07/11/20 14:20 03:45 Creatine Kinase CK-MB (CK-2) Troponin I NT-Pro-B Natriuret Pep 56819 H 20545 H Impressions: Head CT 06/07/20 13:02 IMPRESSION: Stable CT of the brain with bifrontal encephalomalacia. No acute intracranial event. EVIDENCE OF ACUTE STROKE: NO. Thoracentesis Ultrasound 06/08/20 00:00 IMPRESSION: SUCCESSFUL THORACENTESIS AND CHEST TUBE PLACEMENT USING ULTRASOUND GUIDANCE. Abdomen/Pelvis CT 06/17/20 00:00 IMPRESSION: 1. Small bowel obstruction with transition point in the left mid abdomen. This may be a high-grade partial obstruction. Distal small bowel and colon are decompressed. 2. Marked urinary bladder distention, suggestive of bladder outlet obstruction. Clinical correlation is recommended. 3. Loculated right hydropneumothorax and small left pleural effusion, not significantly changed. Compressive atelectasis at the lung bases. 4. Moderate ascites, slightly decreased from previous examination. 5. Mildly nodular contour of the liver, nonspecific however could indicate underlying hepatic cirrhosis. Clinical correlation is with recommended. 6. Diffuse subcutaneous edema, suggestive of fluid overload. 7. Colonic diverticulosis without evidence of diverticulitis. KUB X-Ray 06/22/20 00:00 IMPRESSION: Partial small bowel obstruction Chest CT 06/25/20 00:00 IMPRESSION: Loculated right hydropneumothorax which appears similar at the right lung base from the abdominal CT dated 06/17/2020. Slight interval increase in left pleural effusion. Moderate ascites with a similar nonspecific nodular hepatic contour and slight heterogeneous hepatic attenuation. Paracentesis Ultrasound 07/01/20 08:26 IMPRESSION: SUCCESSFUL ULTRASOUND GUIDED PARACENTESIS. Chest X-Ray 07/11/20 05:00 IMPRESSION: STABLE APPEARANCE OF THE CHEST. SUPPORT DEVICES UNCHANGED. Assessment & Plan - Diagnosis (1) ESRD (end stage renal disease) on dialysis Is this a current diagnosis for this admission?: Yes Plan: Patient currently undergoing dialysis through an IJ PermCath. Plan to remove 1-2 L as tolerated. Patient's blood pressure is quite tenuous and unable to remove more than 500 cc of fluid. Patient is got anasarca basically from a combination of congestive heart failure/third spacing. Discussed with intensivis t about albumin infusions and see if we can extract more fluid which is the main problem with this gentleman as electrolytes are pretty reasonable. Dialysis orders were reviewed with treating dialysis nurse.. (2) Ascites Qualifiers: Ascites type: due to alcoholic cirrhosis Qualified Code(s): K70.31 - Alcoholic cirrhosis of liver with ascites Is this a current diagnosis for this admission?: Yes Plan: Monitor for the need of paracentesis. (3) Atrial fibrillation Qualifiers: Atrial fibrillation type: longstanding persistent Qualified Code(s): I48.11 - Longstanding persistent atrial fibrillation Is this a current diagnosis for this admission?: Yes Plan: Rate controlled stable. (4) CHF (congestive heart failure) Qualifiers: Heart failure type: combined systolic and diastolic Heart failure chronicity: chronic Qualified Code(s): I50.42 - Chronic combined systolic (congestive) and diastolic (congestive) heart failure Is this a current diagnosis for this admission?: Yes Plan: Status quo. Background of dilated cardiomyopathy being managed by hospitalist and cardiology. (5) Ventricular tachyarrhythmia Is this a current diagnosis for this admission?: Yes Plan: Status post cardioversion and stable. (6) Bilateral pleural effusion Plan: Has had thoracentesis followed by right chest tube placement which has now been removed. He has now undergone pleurodesis. (7) H/O mitral valve replacement with mechanical valve Is this a current diagnosis for this admission?: Yes Plan: Status quo. (8) Hypotension Qualifiers: Hypotension type: idiopathic hypotension Qualified Code(s): I95.0 - Idiopathic hypotension Is this a current diagnosis for this admission?: Yes Plan: Patient on pressors as well as Midodrin but blood pressure still tenuous. Monitor. (9) Hyponatremia Is this a current diagnosis for this admission?: Yes Plan: See response to some fluid removal. Monitor. (10) Acute decompensated heart failure Is this a current diagnosis for this admission?: Yes (11) Acute hypoxemic respiratory failure due to COVID-19 Is this a current diagnosis for this admission?: Yes Plan: Currently intubated. (12) Dilated cardiomyopathy Is this a current diagnosis for this admission?: Yes Plan: /Congestive heart failure. Being managed by hospitalist/cardiology. (13) Protein-energy malnutrition Qualifiers: Protein-calorie malnutrition severity: mild Qualified Code(s): E44.1 - Mild protein-calorie malnutrition Is this a current diagnosis for this admission?: Yes Plan: Adding to third spacing. Trial of albumin infusions/TPN.
--- NOTE | 2020-07-11 11:26 | PDOC PROGRESS REPORT ---
Subjective Progress Note for:: 07/08/20 Reason For Visit: Late note for patient seen on the during dialysis. Patient was transferred to the ICU following respiratory failure. Being dialyzed and was seen while on dialysis. Labs and medications were reviewed. Dialysis orders were reviewed with the treating dialysis nurse. Physical Exam Vital Signs: Temp Pulse Resp BP Pulse Ox 97.2 F 137 H 10 L 83/58 L 98 07/11/20 11:06 07/11/20 09:19 07/11/20 11:06 07/11/20 11:06 07/11/20 11:06 Intake & Output 07/10/20 07/11/20 07/12/20 06:59 06:59 06:59 Intake Total 997 712 347 Output Total 1950 1705 45 Balance -953 -993 302 Weight 60.8 kg 63.1 kg General appearance: PRESENT: no acute distress - Intubated and partially sedated Respiratory exam: PRESENT: clear to auscultation [place], decreased breath sounds. ABSENT: crackles Cardiovascular exam: PRESENT: +S1, +S2 GI/Abdominal exam: PRESENT: ascites, distended Results Laboratory Results: 07/11/20 03:45 07/11/20 03:45 07/10/20 07/11/20 07/11/20 12:58 03:45 03:45 WBC 18.2 H RBC 2.99 L Hgb 8.3 L Hct 25.4 L MCV 85 MCH 27.8 MCHC 32.7 RDW 19.5 H Plt Count 128 L Seg Neutrophils % Not Reportable Carbonic Acid 1.27 1.43 H HCO3/H2CO3 Ratio 22:1 19:1 ABG pH 7.44 7.39 ABG pCO2 42.3 47.4 H ABG pO2 343.3 H 71.4 L ABG HCO3 28.0 H 28.0 H ABG O2 Saturation 99.8 H 94.1 ABG Base Excess 3.4 2.6 FiO2 100% 40% Sodium Potassium Chloride Carbon Dioxide Anion Gap BUN Creatinine Est GFR ( Amer) Glucose Calcium Phosphorus Magnesium Total Bilirubin AST Alkaline Phosphatase Total Protein Albumin Prealbumin Triglycerides 07/11/20 03:45 WBC RBC Hgb Hct MCV MCH MCHC RDW Plt Count Seg Neutrophils % Carbonic Acid HCO3/H2CO3 Ratio ABG pH ABG pCO2 ABG pO2 ABG HCO3 ABG O2 Saturation ABG Base Excess FiO2 Sodium 124.8 L Potassium 4.6 Chloride 89 L Carbon Dioxide 28 Anion Gap 8 BUN 44 H Creatinine 1.51 H Est GFR ( Amer) 58 L Glucose 180 H Calcium 7.6 L Phosphorus 2.7 Magnesium 2.2 Total Bilirubin 0.9 AST 42 Alkaline Phosphatase 131 H Total Protein 5.0 L Albumin 2.4 L Prealbumin 12.3 L Triglycerides 40 07/09/20 12:15 Tracheal Aspirate Gram Stain - Final 07/09/20 12:15 Tracheal Aspirate Sputum Culture - Final Yeast, Not Isabel Albicans Greatly Reduced Normal Cynthia 06/07/20 06/07/20 06/07/20 12:24 12:24 15:08 Creatine Kinase 34 L CK-MB (CK-2) Troponin I 0.035 0.041 NT-Pro-B Natriuret Pep 06/07/20 06/07/20 06/08/20 16:45 22:01 05:25 Creatine Kinase 35 L 40 L 35 L CK-MB (CK-2) Troponin I NT-Pro-B Natriuret Pep 06/08/20 06/29/20 06/29/20 05:25 07:30 07:30 Creatine Kinase 27 L CK-MB (CK-2) 1.04 Troponin I 0.028 NT-Pro-B Natriuret Pep [id number] H 06/29/20 06/29/20 06/29/20 15:11 15:11 20:37 Creatine Kinase 39 L CK-MB (CK-2) 2.04 Troponin I 0.142 0.166 NT-Pro-B Natriuret Pep 06/30/20 07/08/20 07/08/20 05:00 14:20 14:20 Creatine Kinase 51 L CK-MB (CK-2) 1.95 Troponin I 0.119 0.105 NT-Pro-B Natriuret Pep 07/08/20 07/11/20 14:20 03:45 Creatine Kinase CK-MB (CK-2) Troponin I NT-Pro-B Natriuret Pep 68375 H 57454 H Impressions: Head CT 06/07/20 13:02 IMPRESSION: Stable CT of the brain with bifrontal encephalomalacia. No acute intracranial event. EVIDENCE OF ACUTE STROKE: NO. Thoracentesis Ultrasound 06/08/20 00:00 IMPRESSION: SUCCESSFUL THORACENTESIS AND CHEST TUBE PLACEMENT USING ULTRASOUND GUIDANCE. Abdomen/Pelvis CT 06/17/20 00:00 IMPRESSION: 1. Small bowel obstruction with transition point in the left mid abdomen. This may be a high-grade partial obstruction. Distal small bowel and colon are decompressed. 2. Marked urinary bladder distention, suggestive of bladder outlet obstruction. Clinical correlation is recommended. 3. Loculated right hydropneumothorax and small left pleural effusion, not significantly changed. Compressive atelectasis at the lung bases. 4. Moderate ascites, slightly decreased from previous examination. 5. Mildly nodular contour of the liver, nonspecific however could indicate underlying hepatic cirrhosis. Clinical correlation is with recommended. 6. Diffuse subcutaneous edema, suggestive of fluid overload. 7. Colonic diverticulosis without evidence of diverticulitis. KUB X-Ray 06/22/20 00:00 IMPRESSION: Partial small bowel obstruction Chest CT 06/25/20 00:00 IMPRESSION: Loculated right hydropneumothorax which appears similar at the r ight lung base from the abdominal CT dated 06/17/2020. Slight interval increase in left pleural effusion. Moderate ascites with a similar nonspecific nodular hepatic contour and slight heterogeneous hepatic attenuation. Paracentesis Ultrasound 07/01/20 08:26 IMPRESSION: SUCCESSFUL ULTRASOUND GUIDED PARACENTESIS. Chest X-Ray 07/11/20 05:00 IMPRESSION: STABLE APPEARANCE OF THE CHEST. SUPPORT DEVICES UNCHANGED. Assessment & Plan - Diagnosis (1) ESRD (end stage renal disease) on dialysis Is this a current diagnosis for this admission?: Yes Plan: Patient currently undergoing dialysis through an IJ PermCath. Plan to remove 1-2 L as tolerated.However it is going need to be difficult given his tenuous blood pressure and patient is been started on Levophed. . Dialysis orders were reviewed with treating dialysis nurse.. (2) Ascites Qualifiers: Ascites type: due to alcoholic cirrhosis Qualified Code(s): K70.31 - Alcoholic cirrhosis of liver with ascites Is this a current diagnosis for this admission?: Yes Plan: Monitor for the need of paracentesis. (3) Atrial fibrillation Qualifiers: Atrial fibrillation type: longstanding persistent Qualified Code(s): I48.11 - Longstanding persistent atrial fibrillation Is this a current diagnosis for this admission?: Yes (4) CHF (congestive heart failure) Qualifiers: Heart failure type: combined systolic and diastolic Heart failure chronicity: chronic Qualified Code(s): I50.42 - Chronic combined systolic (congestive) and diastolic (congestive) heart failure Is this a current diagnosis for this admission?: Yes Plan: Status quo. Background of dilated cardiomyopathy being managed by hospitalist and cardiology. (5) Ventricular tachyarrhythmia Is this a current diagnosis for this admission?: Yes (7) H/O mitral valve replacement with mechanical valve Is this a current diagnosis for this admission?: Yes (8) Hypotension Qualifiers: Hypotension type: idiopathic hypotension Qualified Code(s): I95.0 - Idiopathic hypotension Is this a current diagnosis for this admission?: Yes (9) Hyponatremia Is this a current diagnosis for this admission?: Yes (10) Acute decompensated heart failure Is this a current diagnosis for this admission?: Yes Plan: TIn te background of covid pneumonia/dilated cardiomyopathy. (11) Acute hypoxemic respiratory failure due to COVID-19 Is this a current diagnosis for this admission?: Yes Plan: Currently intubated. (12) Dilated cardiomyopathy Is this a current diagnosis for this admission?: Yes (13) Protein-energy malnutrition Qualifiers: Protein-calorie malnutrition severity: mild Qualified Code(s): E44.1 - Mild protein-calorie malnutrition Is this a current diagnosis for this admission?: Yes Plan: Adding to third spacing. Trial of albumin infusions/TPN.
[2020-07-11] MEDS: HEPARIN SODIUM,PORCINE/D5W 25,000 UNIT/250 ML RTUINJ IV PRN (12:18)
[2020-07-11] MEDS: FAT EMULSIONS 250 ML IV SCH (12:19)
--- NOTE | 2020-07-11 13:50 | PDOC CRITICAL CARE PROG REPORT ---
General Date:: 07/11/20 ICU Day:: 3 Hospital Day:: 33 Resuscitation Status: Full Code Events in the past 12 to 24 Hours:: Weaning ventilator. Getting HD and now on levophed. Review of systems relevant to events:: CV, renal, pulmonary Reason for ICU Addmission:: Post CPR resuscitation; endotracheally intubated, on HD. - Medications: Medications reviewed and adjusted accordingly: Yes Vasopressors:: None Sedation:: None Physical Exam Vital Signs: Temp Pulse Resp BP Pulse Ox 97.2 F 137 H 10 L 83/58 L 98 07/11/20 11:06 07/11/20 09:19 07/11/20 11:06 07/11/20 11:06 07/11/20 11:06 Intake & Output 07/10/20 07/11/20 07/12/20 06:59 06:59 06:59 Intake Total 997 712 364 Output Total 1950 1705 2060 Balance -953 -993 -1696 Weight 60.8 kg 63.1 kg Weight/Height Weight 63.1 kg Height 5 ft 4 in General appearance: PRESENT: no acute distress, thin Head exam: PRESENT: atraumatic, normocephalic Eye exam: PRESENT: conjunctiva pink, EOMI, PERRLA. ABSENT: scleral icterus Ear exam: PRESENT: normal external ear exam Mouth exam: PRESENT: moist, tongue midline Respiratory exam: PRESENT: clear to auscultation [place], decreased breath sounds. ABSENT: rales, rhonchi, wheezes Cardiovascular exam: PRESENT: RRR, tachycardia GI/Abdominal exam: PRESENT: normal bowel sounds, soft. ABSENT: distended, guarding, mass, organolmegaly, rebound, tenderness Rectal exam: PRESENT: deferred Gentrourinary exam: PRESENT: indwelling catheter Extremities exam: PRESENT: +1 edema Musculoskeletal exam: PRESENT: normal inspection Neurological exam: PRESENT: altered Skin exam: PRESENT: dry, intact, warm. ABSENT: cyanosis, rash Tubes/Lines: PRESENT: Endotracheal Tube, Dialysis catheter, Nasogastic Tube Laboratory/Radiographs Laboratory Results: 07/11/20 03:45 07/11/20 03:45 07/11/20 07/11/20 07/11/20 03:45 03:45 03:45 WBC 18.2 H RBC 2.99 L Hgb 8.3 L Hct 25.4 L MCV 85 MCH 27.8 MCHC 32.7 RDW 19.5 H Plt Count 128 L Seg Neutrophils % Not Reportable Carbonic Acid 1.43 H HCO3/H2CO3 Ratio 19:1 ABG pH 7.39 ABG pCO2 47.4 H ABG pO2 71.4 L ABG HCO3 28.0 H ABG O2 Saturation 94.1 ABG Base Excess 2.6 FiO2 40% Sodium 124.8 L Potassium 4.6 Chloride 89 L Carbon Dioxide 28 Anion Gap 8 BUN 44 H Creatinine 1.51 H Est GFR ( Amer) 58 L Glucose 180 H Calcium 7.6 L Phosphorus 2.7 Magnesium 2.2 Total Bilirubin 0.9 AST 42 Alkaline Phosphatase 131 H Total Protein 5.0 L Albumin 2.4 L Prealbumin 12.3 L Triglycerides 40 07/09/20 12:15 Tracheal Aspirate Gram Stain - Final 07/09/20 12:15 Tracheal Aspirate Sputum Culture - Final Yeast, Not Isabel Albicans Greatly Reduced Normal Cynthia 06/07/20 06/07/20 06/07/20 12:24 12:24 15:08 Creatine Kinase 34 L CK-MB (CK-2) Troponin I 0.035 0.041 NT-Pro-B Natriuret Pep 06/07/20 06/07/20 06/08/20 16:45 22:01 05:25 Creatine Kinase 35 L 40 L 35 L CK-MB (CK-2) Troponin I NT-Pro-B Natriuret Pep 06/08/20 06/29/20 06/29/20 05:25 07:30 07:30 Creatine Kinase 27 L CK-MB (CK-2) 1.04 Troponin I 0.028 NT-Pro-B Natriuret Pep [id number] H 06/29/20 06/29/20 06/29/20 15:11 15:11 20:37 Creatine Kinase 39 L CK-MB (CK-2) 2.04 Troponin I 0.142 0.166 NT-Pro-B Natriuret Pep 06/30/20 07/08/20 07/08/20 05:00 14:20 14:20 Creatine Kinase 51 L CK-MB (CK-2) 1.95 Troponin I 0.119 0.105 NT-Pro-B Natriuret Pep 07/08/20 07/11/20 14:20 03:45 Creatine Kinase CK-MB (CK-2) Troponin I NT-Pro-B Natriuret Pep 30582 H 25286 H Impressions: Head CT 06/07/20 13:02 IMPRESSION: Stable CT of the brain with bifrontal encephalomalacia. No acute intracranial event. EVIDENCE OF ACUTE STROKE: NO. Thoracentesis Ultrasound 06/08/20 00:00 IMPRESSION: SUCCESSFUL THORACENTESIS AND CHEST TUBE PLACEMENT USING ULTRASOUND GUIDANCE. Abdomen/Pelvis CT 06/17/20 00:00 IMPRESSION: 1. Small bowel obstruction with transition point in the left mid abdomen. This may be a high-grade partial obstruction. Distal small bowel and colon are decompressed. 2. Marked urinary bladder distention, suggestive of bladder outlet obstruction. Clinical correlation is recommended. 3. Loculated right hydropneumothorax and small left pleural effusion, not significantly changed. Compressive atelectasis at the lung bases. 4. Moderate ascites, slightly decreased from previous examination. 5. Mildly nodular contour of the liver, nonspecific however could indicate und erlying hepatic cirrhosis. Clinical correlation is with recommended. 6. Diffuse subcutaneous edema, suggestive of fluid overload. 7. Colonic diverticulosis without evidence of diverticulitis. KUB X-Ray 06/22/20 00:00 IMPRESSION: Partial small bowel obstruction Chest CT 06/25/20 00:00 IMPRESSION: Loculated right hydropneumothorax which appears similar at the right lung base from the abdominal CT dated 06/17/2020. Slight interval increase in left pleural effusion. Moderate ascites with a similar nonspecific nodular hepatic contour and slight heterogeneous hepatic attenuation. Paracentesis Ultrasound 07/01/20 08:26 IMPRESSION: SUCCESSFUL ULTRASOUND GUIDED PARACENTESIS. Chest X-Ray 07/11/20 05:00 IMPRESSION: STABLE APPEARANCE OF THE CHEST. SUPPORT DEVICES UNCHANGED. EKG: ST, LBBB. All labs, radiographs, diagnostic studies and EKGs were personally reviewed: Yes In addition, reports of radiographic and diagnostic studies were read: Yes Assessment and Plan - Diagnosis (1) Acute hypoxemic respiratory failure due to COVID-19 Is this a current diagnosis for this admission?: Yes Plan: He is weaning from vent today to PSV. (2) Atrial fibrillation Qualifiers: Atrial fibrillation type: persistent (not longstanding) Qualified Code(s): I48.19 - Other persistent atrial fibrillation; I48.1 - Persistent atrial f ibrillation Is this a current diagnosis for this admission?: Yes Plan: With no procedures planned leave on heparin for now. Both for afib and covid VTE risk. (3) Acute decompensated heart failure Is this a current diagnosis for this admission?: Yes Plan: EF is only 25-30%. Needs milrinone for R ht failure. (4) Dilated cardiomyopathy Is this a current diagnosis for this admission?: Yes Plan: Same. (5) Malnutrition Qualifiers: Malnutrition type: protein-calorie malnutrition Protein-calorie malnutrition severity: moderate Qualified Code(s): E44.0 - Moderate protein- calorie malnutrition Is this a current diagnosis for this admission?: Yes Plan: Mild. Continue TPN while on levophed until GI tract can be safely used. (6) Mechanical heart valve present Is this a current diagnosis for this admission?: Yes Plan: Continue heparin. (7) Shock Is this a current diagnosis for this admission?: Yes Plan: This is likely a combination of cardiogenic and septic shock requiring levophed. He is receiving decadron and is hypoadrenal. (8) Volume overload Qualifiers: Hypervolemia type: unspecified Qualified Code(s): E87.70 - Fluid overload, unspecified Is this a current diagnosis for this admission?: Yes Plan: Maintain HD as long as BP can tolerate. Plan Summary: He is quite ill with a multitude of dysfunctions, prognosis gaurded at best. Critical Time Critical Time (minutes): 40 Level of Care: ICU Anticipated discharge: Other Anticipated DC Timeframe: Other -: 1. The care of a critical patient is a dynamic process. This note is a customer development representative synopsis but static in nature. The timeframe for treatments giv en in order is not necessarily the actual time these treatments may have been done. 2. This patient requires critical care secondary to ongoing requirements for therapy not offered or safe outside the critical care environment. Transfer to a lower level of care will result in altered life or limb morbidity and mortality. 3. Multidisciplinary rounds completed. 4. ABCDE bundle addressed.
[2020-07-11] MEDS ORDERED: CALCIUM GLUCONATE 1000 MG/10 ML INJ IV ONE (14:00)
[2020-07-11] MEDS: CALCIUM GLUCONATE 1 GM/NS 50 ML RTU IV SCH ×2 (14:52→17:16)
[2020-07-11] MEDS: AMINO ACIDS 5 %/DEXTROSE 20 % 1,000 ML IV PRN (15:02)
[2020-07-11] MEDS ORDERED: NOREPINEPHRINE BITARTRATE INJ/PF 4 MG/4 ML SDV IV ONE (16:06)
[2020-07-11] MEDS: ATORVASTATIN CALCIUM 40 MG TABLET NG SCH (22:26)
[2020-07-11] MEDS: PHARMACY COMMUNICATION ORDER MC SCH (22:27)
[2020-07-12] MEDS: MORPHINE SULFATE 10 MG/ML INJ IV SCH ×8 (00:48→23:49)
[2020-07-12] MEDS: INSULIN REG, HUMAN 100 UNIT/ML 3 ML VIAL (PYX) SUBCUT SCH ×5 (00:57→23:49)
[2020-07-12] MEDS: DEXAMETHASONE SOD PHOSPHATE INJ 4 MG/1 ML VIAL IV SCH ×4 (06:40→23:49)
[2020-07-12 07:24] LABS: HEMATOCRIT 26.1 % (37.9-51.0); HEMOGLOBIN 8.6 g/dL (13.5-17.0); MEAN CORPUSCULAR HEMOGLOBIN 28.1 pg (27.0-33.4); MEAN CORPUSCULAR HGB CONC 33.1 g/dL (32.0-36.0); MEAN CORPUSCULAR VOLUME 85 fl (80-97); PLATELET COUNT 127 10^3/uL (150-450); RED BLOOD COUNT 3.07 10^6/uL (4.35-5.55); RED CELL DISTRIBUTION WIDTH 19.7 % (11.5-14.0); WHITE BLOOD COUNT 13.5 10^3/uL (4.0-10.5)
[2020-07-12 07:38] LABS: ANION GAP 7 (5-19); BLOOD UREA NITROGEN 36 mg/dL (7-20); CALCIUM 7.8 mg/dL (8.4-10.2); CARBON DIOXIDE 29 mmol/L (22-30); CHLORIDE 92 mmol/L (98-107); GLUCOSE 184 mg/dL (75-110); POTASSIUM 4.5 mmol/L (3.6-5.0)
[2020-07-12 08:52] LABS: ABSOLUTE MONOCYTES # (MANUAL) 0.8 10^3/uL (0.1-1.4); BASOPHILS % (MANUAL) 0 % (0-2); EOSINOPHILS % (MANUAL) 0 % (0-6); LYMPHOCYTES % (MANUAL) 0 % (13-45); MONOCYTES % (MANUAL) 6 % (3-13); NUCLEATED RED BLOOD CELLS 2 /100 WBC (0); SEGMENTED NEUTROPHILS % (MAN) 94 % (42-78); TOTAL CELLS COUNTED 100
[2020-07-12 08:54] LABS: ANISOCYTOSIS 2+; POIKILOCYTOSIS 1+; POLYCHROMASIA 1+
[2020-07-12 08:55] LABS: OVALOCYTES 1+; PLATELET COMMENT DECREASED; PLATELET LARGE PRESENT; TARGET CELLS 1+; TEAR DROP CELLS 1+
[2020-07-12] MEDS: LIDOCAINE 5% (700 MG) TRANSDERMAL ADH..PATCH TP SCH (10:00)
[2020-07-12] MEDS: PANTOPRAZOLE SODIUM 40 MG VIAL IV SCH (11:04)
[2020-07-12] MEDS: MILRINONE LACTATE/D5W 20 MG/100 ML RTUINJ IV PRN ×2 (11:05→22:01)
[2020-07-12] MEDS: ASCORBIC ACID 500 MG TABLET NG SCH ×2 (11:05→17:13)
[2020-07-12] MEDS: LEVOFLOXACIN 500 MG/D5W RTU 500 MG/100 ML RTUPB IV SCH (11:05)
[2020-07-12] MEDS: ZINC SULFATE 220 MG CAPSULE NG SCH (11:05)
[2020-07-12] MEDS: DEXTROSE 5%-WATER 250 ML with NOREPINEPHRINE BITARTRATE 4 MG IV PRN ×4 (11:09→22:00)
[2020-07-12] MEDS: METOPROLOL TARTRATE 50 MG TABLET NG SCH ×2 (12:14→21:28)
[2020-07-12] MEDS: AMINO ACIDS 5 %/DEXTROSE 20 % 1,000 ML IV PRN (13:51)
[2020-07-12] MEDS: HEPARIN SOD (PORCINE) 1,000 UNIT/ML 10 ML VIAL IV PRN (15:01)
[2020-07-12] MEDS: DEXMEDETOMIDINE IN 0.9 % NACL 400 MCG/100 ML RTUPB IV PRN (16:45)
[2020-07-12] MEDS ORDERED: BUMETANIDE INJ/PF 1 MG/4 ML SDV IV ONE (19:00)
[2020-07-12] MEDS: ATORVASTATIN CALCIUM 40 MG TABLET NG SCH (21:27)
[2020-07-12] MEDS: PHARMACY COMMUNICATION ORDER MC SCH (22:30)
[2020-07-13] MEDS: DEXMEDETOMIDINE IN 0.9 % NACL 400 MCG/100 ML RTUPB IV PRN ×3 (02:05→18:58)
[2020-07-13] MEDS ORDERED: EPOETIN ALFA-EPBX 20,000 UNIT in SYRINGE, DISPOSABLE, 1 EACH IV PRN (05:00)
[2020-07-13] MEDS ORDERED: HEPARIN SOD (PORCINE) 1,000 UNIT/ML 10 ML VIAL IV PRN (05:00)
[2020-07-13] MEDS: MORPHINE SULFATE 10 MG/ML INJ IV SCH ×5 (05:08→21:11)
[2020-07-13] MEDS: DEXAMETHASONE SOD PHOSPHATE INJ 4 MG/1 ML VIAL IV SCH ×3 (05:09→17:39)
[2020-07-13] MEDS: INSULIN REG, HUMAN 100 UNIT/ML 3 ML VIAL (PYX) SUBCUT SCH ×3 (05:15→18:56)
[2020-07-13 06:49] LABS: ANION GAP 5 (5-19); BLOOD UREA NITROGEN 46 mg/dL (7-20); CALCIUM 7.6 mg/dL (8.4-10.2); CARBON DIOXIDE 29 mmol/L (22-30); CHLORIDE 90 mmol/L (98-107); GLUCOSE 178 mg/dL (75-110); POTASSIUM 4.4 mmol/L (3.6-5.0)
[2020-07-13 06:56] LABS: HEMATOCRIT 25.1 % (37.9-51.0); HEMOGLOBIN 8.4 g/dL (13.5-17.0); MEAN CORPUSCULAR HGB CONC 33.3 g/dL (32.0-36.0); MEAN CORPUSCULAR VOLUME 84 fl (80-97); PLATELET COUNT 101 10^3/uL (150-450); RED BLOOD COUNT 2.99 10^6/uL (4.35-5.55); WHITE BLOOD COUNT 11.2 10^3/uL (4.0-10.5)
[2020-07-13 07:08] LABS: ABSOLUTE LYMPHOCYTES# (MANUAL) 0.1 10^3/uL (0.5-4.7); ABSOLUTE MONOCYTES # (MANUAL) 0.4 10^3/uL (0.1-1.4); BASOPHILS % (MANUAL) 0 % (0-2); EOSINOPHILS % (MANUAL) 0 % (0-6); LYMPHOCYTES % (MANUAL) 1 % (13-45); MONOCYTES % (MANUAL) 4 % (3-13); SEGMENTED NEUTROPHILS % (MAN) 95 % (42-78); TOTAL CELLS COUNTED 100
[2020-07-13 07:14] LABS: ANISOCYTOSIS 2+; OVALOCYTES SLIGHT; TARGET CELLS SLIGHT; TOXIC GRANULATION SLIGHT; TOXIC VACUOLATION PRESENT
[2020-07-13 07:15] LABS: BURR CELLS SLIGHT; PLATELET COMMENT DECREASED; PLATELET LARGE PRESENT; POIKILOCYTOSIS 1+; TEAR DROP CELLS SLIGHT
[2020-07-13] MEDS: METOPROLOL TARTRATE 50 MG TABLET NG SCH ×2 (10:01→21:38)
[2020-07-13] MEDS: ASCORBIC ACID 500 MG TABLET NG SCH ×2 (10:34→17:40)
[2020-07-13] MEDS: PANTOPRAZOLE SODIUM 40 MG VIAL IV SCH (10:35)
[2020-07-13] MEDS: ZINC SULFATE 220 MG CAPSULE NG SCH (10:35)
[2020-07-13] MEDS: LIDOCAINE 5% (700 MG) TRANSDERMAL ADH..PATCH TP SCH (10:35)
--- NOTE | 2020-07-13 10:47 | PDOC PROGRESS REPORT ---
Subjective Progress Note for:: 07/13/20 Reason For Visit: Patient is seen in the ICU today on dialysis. He remains intubated and with respiratory failure. Labs and medications were reviewed. Dialysis orders were reviewed with the treating dialysis nurse. Physical Exam Vital Signs: Temp Pulse Resp BP Pulse Ox 95.5 F L 136 H 12 76/62 L 96 07/13/20 10:00 07/13/20 08:27 07/13/20 10:00 07/13/20 09:54 07/13/20 10:00 Intake & Output 07/12/20 07/13/20 07/14/20 06:59 06:59 06:59 Intake Total 1171 1118 Output Total 2480 712 438 Balance -1309 406 -438 Weight 65.6 kg 65.8 kg General appearance: PRESENT: no acute distress Respiratory exam: PRESENT: clear to auscultation [place] Cardiovascular exam: PRESENT: +S1, +S2 GI/Abdominal exam: PRESENT: ascites, distended Extremities exam: PRESENT: pedal edema Results Laboratory Results: 07/13/20 05:15 07/13/20 05:15 07/13/20 07/13/20 05:15 05:15 WBC 11.2 H RBC 2.99 L Hgb 8.4 L Hct 25.1 L MCV 84 MCH 28.0 MCHC 33.3 RDW 20.0 H Plt Count 101 L Seg Neutrophils % Not Reportable Sodium 124.3 L Potassium 4.4 Chloride 90 L Carbon Dioxide 29 Anion Gap 5 BUN 46 H Creatinine 1.43 H Est GFR ( Amer) > 60 Glucose 178 H Calcium 7.6 L 06/07/20 06/07/20 06/07/20 12:24 12:24 15:08 Creatine Kinase 34 L CK-MB (CK-2) Troponin I 0.035 0.041 NT-Pro-B Natriuret Pep 06/07/20 06/07/20 06/08/20 16:45 22:01 05:25 Creatine Kinase 35 L 40 L 35 L CK-MB (CK-2) Troponin I NT-Pro-B Natriuret Pep 06/08/20 06/29/20 06/29/20 05:25 07:30 07:30 Creatine Kinase 27 L CK-MB (CK-2) 1.04 Troponin I 0.028 NT-Pro-B Natriuret Pep 18484 H 06/29/20 06/29/20 06/29/20 15:11 15:11 20:37 Creatine Kinase 39 L CK-MB (CK-2) 2.04 Troponin I 0.142 0.166 NT-Pro-B Natriuret Pep 06/30/20 07/08/20 07/08/20 05:00 14:20 14:20 Creatine Kinase 51 L CK-MB (CK-2) 1.95 Troponin I 0.119 0.105 NT-Pro-B Natriuret Pep 07/08/20 07/11/20 14:20 03:45 Creatine Kinase CK-MB (CK-2) Troponin I NT-Pro-B Natriuret Pep 07692 H 68267 H Impressions: Head CT 06/07/20 13:02 IMPRESSION: Stable CT of the brain with bifrontal encephalomalacia. No acute intracranial event. EVIDENCE OF ACUTE STROKE: NO. Thoracentesis Ultrasound 06/08/20 00:00 IMPRESSION: SUCCESSFUL THORACENTESIS AND CHEST TUBE PLACEMENT USING ULTRASOUND GUIDANCE. Abdomen/Pelvis CT 06/17/20 00:00 IMPRESSION: 1. Small bowel obstruction with transition point in the left mid abdomen. This may be a high-grade partial obstruction. Distal small bowel and colon are decompressed. 2. Marked urinary bladder distention, suggestive of bladder outlet obstruction. Clinical correlation is recommended. 3. Loculated right hydropneumothorax and small left pleural effusion, not significantly changed. Compressive atelectasis at the lung bases. 4. Moderate ascites, slightly decreased from previous examination. 5. Mildly nodular contour of the liver, nonspecific however could indicate underlying hepatic cirrhosis. Clinical correlation is with recommended. 6. Diffuse subcutaneous edema, suggestive of fluid overload. 7. Colonic diverticulosis without evidence of diverticulitis. KUB X-Ray 06/22/20 00:00 IMPRESSION: Partial small bowel obstruction Chest CT 06/25/20 00:00 IMPRESSION: Loculated right hydropneumothorax which appears similar at the right lung base from the abdominal CT dated 06/17/2020. Slight interval increase in left pleural effusion. Moderate ascites with a similar nonspecific nodular hepatic contour and slight heterogeneous hepatic attenuation. Paracentesis Ultrasound 07/01/20 08:26 IMPRESSION: SUCCESSFUL ULTRASOUND GUIDED PARACENTESIS. Chest X-Ray 07/11/20 05:00 IMPRESSION: STABLE APPEARANCE OF THE CHEST. SUPPORT DEVICES UNCHANGED. Assessment & Plan - Diagnosis (1) Acute hypoxemic respiratory failure due to COVID-19 Is this a current diagnosis for this admission?: Yes Plan: Currently intubated. (2) ESRD (end stage renal disease) on dialysis Is this a current diagnosis for this admission?: Yes Plan: Patient currently undergoing dialysis through an IJ PermCath. Plan to remove 1-2 L as tolerated.However it is going need to be difficult given his tenuous blood pressure . Dialysis orders were reviewed with treating dialysis nurse.. (3) Ascites Qualifiers: Ascites type: due to alcoholic cirrhosis Qualified Code(s): K70.31 - Alcoholic cirrhosis of liver with ascites Is this a current diagnosis for this admission?: Yes Plan: Monitor for the need of paracentesis. (4) Atrial fibrillation Qualifiers: Atrial fibrillation type: persistent (not longstanding) Qualified Code(s): I48.19 - Other persistent atrial fibrillation; I48.1 - Persistent atrial fibrillation Is this a current diagnosis for this admission?: Yes Plan: Rate controlled stable. (5) CHF (congestive heart failure) Qualifiers: Heart failure type: combined systolic and diastolic Heart failure chronicity: chronic Qualified Code(s): I50.42 - Chronic combined systolic (co ngestive) and diastolic (congestive) heart failure Is this a current diagnosis for this admission?: Yes Plan: Status quo. Background of dilated cardiomyopathy being managed by hospitalist and cardiology. (6) Ventricular tachyarrhythmia Is this a current diagnosis for this admission?: Yes Plan: Status post cardioversion and stable. (7) Bilateral pleural effusion Plan: Has had thoracentesis followed by right chest tube placement which has now been removed. He has now undergone pleurodesis. (8) Hypotension Qualifiers: Hypotension type: idiopathic hypotension Qualified Code(s): I95.0 - Idiopathic hypotension Is this a current diagnosis for this admission?: Yes Plan: Patient on pressors as well as Midodrin but blood pressure still tenuous. Monitor. (9) Hyponatremia Is this a current diagnosis for this admission?: Yes Plan: See response to some fluid removal. Monitor. (10) Acute decompensated heart failure Is this a current diagnosis for this admission?: Yes Plan: TIn te background of covid pneumonia/dilated cardiomyopathy. (11) Dilated cardiomyopathy Is this a current diagnosis for this admission?: Yes Plan: /Congestive heart failure. Being managed by hospitalist/cardiology. (12) Protein-energy malnutrition Qualifiers: Protein-calorie malnutrition severity: mild Qualified Code(s): E44.1 - Mild protein-calorie malnutrition Is this a current diagnosis for this admission?: Yes Plan: Adding to third spacing. Trial of albumin infusions/TPN.
[2020-07-13] MEDS: MILRINONE LACTATE/D5W 20 MG/100 ML RTUINJ IV PRN ×2 (11:11→23:20)
[2020-07-13] MEDS: ALBUMIN HUMAN 12.5 GM/50 ML RTUINJ IV SCH ×4 (12:18→18:30)
--- NOTE | 2020-07-13 12:59 | PDOC CRITICAL CARE PROG REPORT ---
General Date:: 07/13/20 ICU Day:: 5 Ventilator Day:: 5 Hospital Day:: 35 Resuscitation Status: Full Code Events in the past 12 to 24 Hours:: Dialysis today. BP low, getting albumin Review of systems relevant to events:: Renal, respiratory, CV Reason for ICU Addmission:: Post CPR resuscitation; endotracheally intubated, on HD. - Medications: Medications reviewed and adjusted accordingly: Yes Vasopressors:: Levophed Sedation:: Precedex Physical Exam Vital Signs: Temp Pulse Resp BP Pulse Ox 95.9 F L 136 H 13 76/61 L 91 L 07/13/20 11:39 07/13/20 08:27 07/13/20 11:39 07/13/20 11:39 07/13/20 11:39 Intake & Output 07/12/20 07/13/20 07/14/20 06:59 06:59 06:59 Intake Total 1171 1118 218 Output Total 2480 712 456 Balance -1309 406 -238 Weight 65.6 kg 65.8 kg Weight/Height Weight 65.8 kg Height 5 ft 4 in General appearance: PRESENT: no acute distress, thin Head exam: PRESENT: atraumatic, normocephalic Eye exam: PRESENT: conjunctiva pink, EOMI, PERRLA. ABSENT: scleral icterus Ear exam: PRESENT: bleeding Mouth exam: PRESENT: moist, tongue midline Respiratory exam: PRESENT: clear to auscultation [place]. ABSENT: rales, rhonchi, wheezes Cardiovascular exam: PRESENT: RRR. ABSENT: diastolic murmur, rubs, systolic murmur Pulses: PRESENT: normal dorsalis pedis pul GI/Abdominal exam: PRESENT: normal bowel sounds, soft. ABSENT: distended, guarding, mass, organolmegaly, rebound, tenderness Rectal exam: PRESENT: deferred Gentrourinary exam: PRESENT: indwelling catheter Extremities exam: PRESENT: +2 edema Neurological exam: PRESENT: alert, awake, CN II-XII grossly intact Psychiatric exam: PRESENT: appropriate affect, normal mood. ABSENT: homicidal ideation, suicidal ideation Skin exam: PRESENT: dry, intact, warm. ABSENT: cyanosis, rash Tubes/Lines: PRESENT: Endotracheal Tube, Dialysis catheter, Nasogastic Tube Laboratory/Radiographs Laboratory Results: 07/13/20 05:15 07/13/20 05:07/13/20 07/13/20 05:15 05:15 WBC 11.2 H RBC 2.99 L Hgb 8.4 L Hct 25.1 L MCV 84 MCH 28.0 MCHC 33.3 RDW 20.0 H Plt Count 101 L Seg Neutrophils % Not Reportable Sodium 124.3 L Potassium 4.4 Chloride 90 L Carbon Dioxide 29 Anion Gap 5 BUN 46 H Creatinine 1.43 H Est GFR ( Amer) > 60 Glucose 178 H Calcium 7.6 L 06/07/20 06/07/20 06/07/20 12:24 12:24 15:08 Creatine Kinase 34 L CK-MB (CK-2) Troponin I 0.035 0.041 NT-Pro-B Natriuret Pep 06/07/20 06/07/20 06/08/20 16:45 22:01 05:25 Creatine Kinase 35 L 40 L 35 L CK-MB (CK-2) Troponin I NT-Pro-B Natriuret Pep 06/08/20 06/29/20 06/29/20 05:25 07:30 07:30 Creatine Kinase 27 L CK-MB (CK-2) 1.04 Troponin I 0.028 NT-Pro-B Natriuret Pep [id number] H 06/29/20 06/29/20 06/29/20 15:11 15:11 20:37 Creatine Kinase 39 L CK-MB (CK-2) 2.04 Troponin I 0.142 0.166 NT-Pro-B Natriuret Pep 06/30/20 07/08/20 07/08/20 05:00 14:20 14:20 Creatine Kinase 51 L CK-MB (CK-2) 1.95 Troponin I 0.119 0.105 NT-Pro-B Natriuret Pep 07/08/20 07/11/20 14:20 03:45 Creatine Kinase CK-MB (CK-2) Troponin I NT-Pro-B Natriuret Pep 15606 H 39115 H Impressions: Head CT 06/07/20 13:02 IMPRESSION: Stable CT of the brain with bifrontal encephalomalacia. No acute intracranial event. EVIDENCE OF ACUTE STROKE: NO. Thoracentesis Ultrasound 06/08/20 00:00 IMPRESSION: SUCCESSFUL THORACENTESIS AND CHEST TUBE PLACEMENT USING ULTRASOUND GUIDANCE. Abdomen/Pelvis CT 06/17/20 00:00 IMPRESSION: 1. Small bowel obstruction with transition point in the left mid abdomen. This may be a high-grade partial obstruction. Distal small bowel and colon are decompressed. 2. Marked urinary bladder distention, suggestive of bladder outlet obstruction. Clinical correlation is recommended. 3. Loculated right hydropneumothorax and small left pleural effusion, not significantly changed. Compressive atelectasis at the lung bases. 4. Moderate ascites, slightly decreased from previous examination. 5. Mildly nodular contour of the liver, nonspecific however could indicate underlying hepatic cirrhosis. Clinical correlation is with recommended. 6. Diffuse subcutaneous edema, suggestive of fluid overload. 7. Colonic diverticulosis without evidence of diverticulitis. KUB X-Ray 06/22/20 00:00 IMPRESSION: Partial small bowel obstruction Chest CT 06/25/20 00:00 IMPRESSION: Loculated right hydropneumothorax which appears similar at the right lung base from the abdominal CT dated 06/17/2020. Slight interval increase in left pleural effusion. Moderate ascites with a similar nonspecific nodular hepatic contour and slight heterogeneous hepatic attenuation. Paracentesis Ultrasound 07/01/20 08:26 IMPRESSION: SUCCESSFUL ULTRASOUND GUIDED PARACENTESIS. Chest X-Ray 07/11/20 05:00 IMPRESSION: STABLE APPEARANCE OF THE CHEST. SUPPORT DEVICES UNCHANGED. All labs, radiographs, diagnostic studies and EKGs were personally reviewed: Yes In addition, reports of radiographic and diagnostic studies were read: Yes Assessment and Plan - Diagnosis (1) Acute hypoxemic respiratory failure due to COVID-19 Is this a current diagnosis for this admission?: Yes Plan: He is on PRVC. However he did well on PSV. However with hypotension and HD will wean when more stable. (2) Atrial fibrillation Qualifiers: Atrial fibrillation type: persistent (not longstanding) Qualified Code(s): I48.19 - Other persistent atrial fibrillation; I48.1 - Persistent atrial fibrillation Is this a current diagnosis for this admission?: Yes Plan: Looks like SR now with low voltage. (3) Acute decompensated heart failure Is this a current diagnosis for this admission?: Yes Plan: He seems to be on the dry side. Albumin ordered for low BP. (4) Dilated cardiomyopathy Is this a current diagnosis for this admission?: Yes Plan: When levophed is off will start weaning milrinone (5) Malnutrition Qualifiers: Malnutrition type: protein-calorie malnutrition Protein-calorie malnutrition severity: moderate Qualified Code(s): E44.0 - Moderate protein- calorie malnutrition Is this a current diagnosis for this admission?: Yes Plan: TPN for now while on pressors. (6) Mechanical heart valve present Is this a current diagnosis for this admission?: Yes Plan: Stable (7) Shock Is this a current diagnosis for this admission?: Yes Plan: Largely cardiogenic with an element of septic from COVID. (8) Volume overload Qualifiers: Hypervolemia type: unspecified Qualified Code(s): E87.70 - Fluid overload, unspecified Is this a current diagnosis for this admission?: Yes Plan: He is acting somewhat on the dry side. Plan Summary: Albumin for BP then wean levophed. Critical Time Critical Time (minutes): 35 Level of Care: ICU Anticipated discharge: SNF Anticipated DC Timeframe: Other -: 1. The care of a critical patient is a dynamic process. This note is a quality assurance representative synopsis but static in nature. The timeframe for treatments given in order is not necessarily the actual time these treatments may have been done. 2. This patient requires critical care secondary to ongoing requirements for therapy not offered or safe outside the critical care environment. Transfer to a lower level of care will result in altered life or limb morbidity and mortality. 3. Multidisciplinary rounds completed. 4. ABCDE bundle addressed.
[2020-07-13] MEDS ORDERED: NOREPINEPHRINE BITARTRATE INJ/PF 4 MG/4 ML SDV IV ONE (13:24)
[2020-07-13] MEDS: DEXTROSE 5%-WATER 250 ML with NOREPINEPHRINE BITARTRATE 4 MG IV PRN ×2 (13:34)
--- NOTE | 2020-07-13 13:46 | PDOC CRITICAL CARE PROG REPORT ---
General Date:: 07/12/20 ICU Day:: 4 Ventilator Day:: 4 Resuscitation Status: Full Code Events in the past 12 to 24 Hours:: Tolerating PSV Review of systems relevant to events:: Pulmonary, renal, CV Reason for ICU Addmission:: Post CPR resuscitation; endotracheally intubated, on HD. - Medications: Medications reviewed and adjusted accordingly: Yes Vasopressors:: Levophed Sedation:: Precedex. Physical Exam Vital Signs: Temp Pulse Resp BP Pulse Ox 95.9 F L 136 H 13 76/61 L 100 07/13/20 11:39 07/13/20 08:27 07/13/20 11:39 07/13/20 11:39 07/13/20 12:49 Intake & Output 07/12/20 07/13/20 07/14/20 06:59 06:59 06:59 Intake Total 1171 1118 391 Output Total 2480 712 470 Balance -1309 406 -79 Weight 65.6 kg 65.8 kg Weight/Height Weight 65.8 kg Height 5 ft 4 in General appearance: PRESENT: no acute distress, cooperative, thin Head exam: PRESENT: atraumatic, normocephalic Eye exam: PRESENT: conjunctiva pink, EOMI, PERRLA. ABSENT: scleral icterus Ear exam: PRESENT: normal external ear exam Mouth exam: PRESENT: moist, tongue midline Respiratory exam: PRESENT: clear to auscultation [place]. ABSENT: rales, rhonchi, wheezes Cardiovascular exam: PRESENT: RRR. ABSENT: diastolic murmur, rubs, systolic mu rmur GI/Abdominal exam: PRESENT: normal bowel sounds, soft. ABSENT: distended, guarding, mass, organolmegaly, rebound, tenderness Rectal exam: PRESENT: deferred Gentrourinary exam: PRESENT: indwelling catheter Extremities exam: PRESENT: other - Anasarca Musculoskeletal exam: PRESENT: normal inspection Neurological exam: PRESENT: alert, altered, awake Skin exam: PRESENT: dry, intact, warm. ABSENT: cyanosis, rash Tubes/Lines: PRESENT: Endotracheal Tube, Dialysis catheter Laboratory/Radiographs Laboratory Results: 07/13/20 05:15 07/13/20 05:15 07/13/20 07/13/20 05:15 05:15 WBC 11.2 H RBC 2.99 L Hgb 8.4 L Hct 25.1 L MCV 84 MCH 28.0 MCHC 33.3 RDW 20.0 H Plt Count 101 L Seg Neutrophils % Not Reportable Sodium 124.3 L Potassium 4.4 Chloride 90 L Carbon Dioxide 29 Anion Gap 5 BUN 46 H Creatinine 1.43 H Est GFR ( Amer) > 60 Glucose 178 H Calcium 7.6 L 06/07/20 06/07/20 06/07/20 12:24 12:24 15:08 Creatine Kinase 34 L CK-MB (CK-2) Troponin I 0.035 0.041 NT-Pro-B Natriuret Pep 06/07/20 06/07/20 06/08/20 16:45 22:01 05:25 Creatine Kinase 35 L 40 L 35 L CK-MB (CK-2) Troponin I NT-Pro-B Natriuret Pep 06/08/20 06/29/20 06/29/20 05:25 07:30 07:30 Creatine Kinase 27 L CK-MB (CK-2) 1.04 Troponin I 0.028 NT-Pro-B Natriuret Pep [id number] H 06/29/20 06/29/20 06/29/20 15:11 15:11 20:37 Creatine Kinase 39 L CK-MB (CK-2) 2.04 Troponin I 0.142 0.166 NT-Pro-B Natriuret Pep 06/30/20 07/08/20 07/08/20 05:00 14:20 14:20 Creatine Kinase 51 L CK-MB (CK-2) 1.95 Troponin I 0.119 0.105 NT-Pro-B Natriuret Pep 07/08/20 07/11/20 14:20 03:45 Creatine Kinase CK-MB (CK-2) Troponin I NT-Pro-B Natriuret Pep 37892 H 90000 H Impressions: Head CT 06/07/20 13:02 IMPRESSION: Stable CT of the brain with bifrontal encephalomalacia. No acute intracranial event. EVIDENCE OF ACUTE STROKE: NO. Thoracentesis Ultrasound 06/08/20 00:00 IMPRESSION: SUCCESSFUL THORACENTESIS AND CHEST TUBE PLACEMENT USING ULTRASOUND GUIDANCE. Abdomen/Pelvis CT 06/17/20 00:00 IMPRESSION: 1. Small bowel obstruction with transition point in the left mid abdomen. This may be a high-grade partial obstruction. Distal small bowel and colon are decompressed. 2. Marked urinary bladder distention, suggestive of bladder outlet obstruction. Clinical correlation is recommended. 3. Loculated right hydropneumothorax and small left pleural effusion, not significantly changed. Compressive atelectasis at the lung bases. 4. Moderate ascites, slightly decreased from previous examination. 5. Mildly nodular contour of the liver, nonspecific however could indicate underlying hepatic cirrhosis. Clinical correlation is with recommended. 6. Diffuse subcutaneous edema, suggestive of fluid overload. 7. Colonic diverticulosis without evidence of diverticulitis. KUB X-Ray 06/22/20 00:00 IMPRESSION: Partial small bowel obstruction Chest CT 06/25/20 00:00 IMPRESSION: Loculated right hydropneumothorax which appears similar at the right lung base from the abdominal CT dated 06/17/2020. Slight interval increase in left pleural effusion. Moderate ascites with a similar nonspecific nodular hepatic contour and slight heterogeneous hepatic attenuation. Paracentesis Ultrasound 07/01/20 08:26 IMPRESSION: SUCCESSFUL ULTRASOUND GUIDED PARACENTESIS. Chest X-Ray 07/11/20 05:00 IMPRESSION: STABLE APPEARANCE OF THE CHEST. SUPPORT DEVICES UNCHANGED. All labs, radiographs, diagnostic studies and EKGs were personally reviewed: Yes In addition, reports of radiographic and diagnostic studies were read: Yes Assessment and Plan - Diagnosis (1) Acute hypoxemic respiratory failure due to COVID-19 Is this a current diagnosis for this admission?: Yes Plan: He is tolerating PSV and will continue to wean as tolerated. (2) Atrial fibrillation Qualifiers: Atrial fibrillation type: persistent (not longstanding) Qualified Code(s): I48.19 - Other persistent atrial fibrillation; I48.1 - Persistent atrial fibrillation Is this a current diagnosis for this admission?: Yes Plan: Cntrolled (3) Acute decompensated heart failure Is this a current diagnosis for this admission?: Yes (4) Dilated cardiomyopathy Is this a current diagnosis for this admission?: Yes Plan: Currently inactive. (5) Malnutrition Qualifiers: Malnutrition type: protein-calorie malnutrition Protein-calorie malnutrition severity: moderate Qualified Code(s): E44.0 - Moderate protein- calorie malnutrition Is this a current diagnosis for this admission?: Yes Plan: Will use GI tract when is off levophed or significantly down. (6) Mechanical heart valve present Is this a current diagnosis for this admission?: Yes Plan: Stable (7) Shock Is this a current diagnosis for this admission?: Yes Plan: This is a combination of cardiogenic, septic from COVID. (8) Volume overload Qualifiers: Hypervolemia type: unspecified Qualified Code(s): E87.70 - Fluid overload, unspecified Is this a current diagnosis for this admission?: Yes Plan: Not in need of HD right now. Plan Summary: Continue to wean as tolerated but not extubatable until he is more stable from a CV standpoint Critical Time Critical Time (minutes): 35 Level of Care: ICU Anticipated discharge: SNF Anticipated DC Timeframe: Other -: 1. The care of a critical patient is a dynamic process. This note is a special service representative synopsis but static in nature. The timeframe for treatments given in order is not necessarily the actual time these treatments may have been done. 2. This patient requires critical care secondary to ongoing requirements for therapy not offered or safe outside the critical care environment. Transfer to a lower level of care will result in altered life or limb morbidity and m ortality. 3. Multidisciplinary rounds completed. 4. ABCDE bundle addressed.
[2020-07-13 14:13] LABS: ANION GAP 7 (5-19); BLOOD UREA NITROGEN 31 mg/dL (7-20); CALCIUM 7.9 mg/dL (8.4-10.2); CARBON DIOXIDE 29 mmol/L (22-30); CHLORIDE 93 mmol/L (98-107); GLUCOSE 113 mg/dL (75-110); POTASSIUM 4.1 mmol/L (3.6-5.0)
[2020-07-13] MEDS: HEPARIN SODIUM,PORCINE/D5W 25,000 UNIT/250 ML RTUINJ IV PRN (17:39)
--- NOTE | 2020-07-13 17:47 | RADIOLOGY REPORT (SQ) ---
EXAM DESCRIPTION: CHEST SINGLE VIEW IMAGES COMPLETED DATE/TIME: 07/13/2020 4:40 pm REASON FOR STUDY: ET Tube Placement COMPARISON: None. EXAM PARAMETERS: NUMBER OF VIEWS: One view. TECHNIQUE: Single frontal radiographic view of the chest acquired. RADIATION DOSE: NA LIMITATIONS: None. FINDINGS: LUNGS AND PLEURA: Pulmonary edema. Possible small pleural effusions. MEDIASTINUM AND HILAR STRUCTURES: No masses. Contour normal. HEART AND VASCULAR STRUCTURES: Heart normal in size. Normal vasculature. BONES: No acute findings. HARDWARE: An internal jugular catheter has its tip in the superior vena cava. Dual-lumen catheter on the left has its tip near the right atrium. Loop recorder. Sternotomy wires. Endotracheal tube is present with its tip about 2 cm above the koko. OTHER: No other significant finding. IMPRESSION: Endotracheal tube is slightly low, only 2 cm above the koko. TECHNICAL DOCUMENTATION: JOB ID: [id number] 2010 [employer]- All Rights Reserved Reading location - IP/workstation name: [email or web address]
[2020-07-13] MEDS ORDERED: ALBUMIN HUMAN 12.5 GM/50 ML RTUINJ IV ONE (18:45)
[2020-07-13] MEDS: PHARMACY COMMUNICATION ORDER MC SCH (21:38)
[2020-07-13] MEDS: ATORVASTATIN CALCIUM 40 MG TABLET NG SCH (21:39)
[2020-07-13] MEDS: MIRTAZAPINE 15 MG TABLET PO SCH (21:41)
[2020-07-14] MEDS ORDERED: DIGOXIN INJ 0.5 MG/2 ML AMPULE IV ONE ×2 (00:44→04:40)
[2020-07-14] MEDS: INSULIN REG, HUMAN 100 UNIT/ML 3 ML VIAL (PYX) SUBCUT SCH ×4 (00:52→17:35)
[2020-07-14] MEDS: MORPHINE SULFATE 10 MG/ML INJ IV SCH ×6 (00:52→21:02)
[2020-07-14] MEDS: DEXAMETHASONE SOD PHOSPHATE INJ 4 MG/1 ML VIAL IV SCH ×4 (00:53→17:35)
[2020-07-14] MEDS ORDERED: RINGERS SOLUTION,LACTATED 500 ML IV ONE (06:13)
[2020-07-14] MEDS ORDERED: ALBUMIN HUMAN 12.5 GM/50 ML RTUINJ IV SCH (06:15)
[2020-07-14] MEDS ORDERED: METOPROLOL TARTRATE PF/INJ 5 MG/5 ML SDV IV ONE ×4 (06:38→19:45)
[2020-07-14 07:05] LABS: MEAN CORPUSCULAR HEMOGLOBIN 28.2 pg (27.0-33.4); MEAN CORPUSCULAR HGB CONC 33.5 g/dL (32.0-36.0); MEAN CORPUSCULAR VOLUME 84 fl (80-97); PLATELET COUNT 100 10^3/uL (150-450); RED BLOOD COUNT 2.85 10^6/uL (4.35-5.55); RED CELL DISTRIBUTION WIDTH 19.9 % (11.5-14.0); WHITE BLOOD COUNT 10.8 10^3/uL (4.0-10.5)
[2020-07-14 07:16] LABS: ALBUMIN 2.5 g/dL (3.5-5.0); ALKALINE PHOSPHATASE 158 U/L (38-126); ANION GAP 7 (5-19); ASPARTATE AMINO TRANSFERASE 86 U/L (17-59); BILIRUBIN,DIRECT 0.3 mg/dL (0.0-0.4); BILIRUBIN,TOTAL 0.8 mg/dL (0.2-1.3); BLOOD UREA NITROGEN 38 mg/dL (7-20); CALCIUM 7.5 mg/dL (8.4-10.2); CARBON DIOXIDE 26 mmol/L (22-30); CHLORIDE 94 mmol/L (98-107); GLUCOSE 210 mg/dL (75-110); POTASSIUM 4.4 mmol/L (3.6-5.0)
[2020-07-14] MEDS: DEXMEDETOMIDINE IN 0.9 % NACL 400 MCG/100 ML RTUPB IV PRN ×2 (07:47→14:00)
[2020-07-14 07:52] LABS: PHOSPHORUS 2.9 mg/dL (2.5-4.5)
[2020-07-14 07:59] LABS: PREALBUMIN 14.6 mg/dL (17.6-36.0)
[2020-07-14 08:03] LABS: ABSOLUTE LYMPHOCYTES# (MANUAL) 0.1 10^3/uL (0.5-4.7); ABSOLUTE MONOCYTES # (MANUAL) 0.1 10^3/uL (0.1-1.4); ANISOCYTOSIS 2+; BASOPHILS % (MANUAL) 0 % (0-2); EOSINOPHILS % (MANUAL) 0 % (0-6); HYPOCHROMASIA 3+; LYMPHOCYTES % (MANUAL) 1 % (13-45); MONOCYTES % (MANUAL) 1 % (3-13); NUCLEATED RED BLOOD CELLS 1 /100 WBC (0); SEGMENTED NEUTROPHILS % (MAN) 98 % (42-78); TOTAL CELLS COUNTED 100
[2020-07-14 08:05] LABS: OVALOCYTES 1+; PLATELET COMMENT DECREASED; POIKILOCYTOSIS 1+; POLYCHROMASIA SLIGHT; SCHISTOCYTES SLIGHT; TARGET CELLS 1+
--- NOTE | 2020-07-14 09:07 | PDOC CRITICAL CARE PROG REPORT ---
General ICU Day:: 6 Ventilator Day:: 6 Hospital Day:: 37 Resuscitation Status: Full Code Events in the past 12 to 24 Hours:: HR in uncontrolled afib. Better at 125. Had been as high as 160-170. Review of systems relevant to events:: CV, pulmonary, renal. Reason for ICU Addmission:: Post CPR resuscitation; endotracheally intubated, on HD. - Medications: Medications reviewed and adjusted accordingly: Yes Vasopressors:: Levophed. Sedation:: Precedex Physical Exam Vital Signs: Temp Pulse Resp BP Pulse Ox 96.6 F L 124 H 12 98/79 L 96 07/14/20 06:51 07/14/20 08:00 07/14/20 08:00 07/14/20 08:00 07/14/20 08:00 Intake & Output 07/13/20 07/14/20 07/15/20 06:59 06:59 06:59 Intake Total 1118 1076 4 Output Total 712 565 20 Balance 406 511 -16 Weight 65.8 kg 66.4 kg Weight/Height Weight 66.4 kg Height 5 ft 4 in General appearance: PRESENT: no acute distress, cooperative, thin Head exam: PRESENT: atraumatic, normocephalic Eye exam: PRESENT: conjunctiva pink, EOMI, PERRLA. ABSENT: scleral icterus Ear exam: PRESENT: normal external ear exam Mouth exam: PRESENT: moist, tongue midline Respiratory exam: PRESENT: crackles, decreased breath sounds, unlabored Cardiovascular exam: PRESENT: irregular rhythm, tachycardia GI/Abdominal exam: PRESENT: normal bowel sounds, soft. ABSENT: distended, guarding, mass, organolmegaly, rebound, tenderness Rectal exam: PRESENT: deferred Gentrourinary exam: PRESENT: indwelling catheter Extremities exam: PRESENT: +2 edema Musculoskeletal exam: PRESENT: normal inspection Neurological exam: PRESENT: altered, CN II-XII grossly intact Psychiatric exam: PRESENT: appropriate affect, normal mood. ABSENT: homicidal ideation, suicidal ideation Skin exam: PRESENT: dry, intact, warm. ABSENT: cyanosis, rash Tubes/Lines: PRESENT: Endotracheal Tube, Central Line, Dialysis catheter, Nasogastic Tube Laboratory/Radiographs Laboratory Results: 07/14/20 05:50 07/14/20 05:50 07/13/20 07/13/20 07/14/20 13:36 13:36 05:50 WBC RBC Hgb Hct MCV MCH MCHC RDW Plt Count Seg Neutrophils % Sodium 129.0 L Cancelled Potassium 4.1 Cancelled Chloride 93 L Cancelled Carbon Dioxide 29 Cancelled Anion Gap 7 Cancelled BUN 31 H Cancelled Creatinine 1.07 Cancelled Est GFR ( Amer) > 60 Cancelled Est GFR (Non-Af Amer) Cancelled Glucose 113 H Cancelled Calcium 7.9 L Cancelled Phosphorus 2.9 Magnesium 2.2 Total Bilirubin Cancelled AST Cancelled Alkaline Phosphatase Cancelled Total Protein Cancelled Albumin Cancelled Prealbumin 14.6 L 07/14/20 07/14/20 05:50 05:50 WBC 10.8 H RBC 2.85 L Hgb 8.0 L Hct 24.0 L MCV 84 MCH 28.2 MCHC 33.5 RDW 19.9 H Plt Count 100 L Seg Neutrophils % Not Reportable Sodium 127.4 L Potassium 4.4 Chloride 94 L Carbon Dioxide 26 Anion Gap 7 BUN 38 H Creatinine 1.25 Est GFR ( Amer) > 60 Est GFR (Non-Af Amer) Glucose 210 H Calcium 7.5 L Phosphorus Magnesium Total Bilirubin 0.8 AST 86 H Alkaline Phosphatase 158 H Total Protein 5.0 L Albumin 2.5 L Prealbumin 06/07/20 06/07/20 06/07/20 12:24 12:24 15:08 Creatine Kinase 34 L CK-MB (CK-2) Troponin I 0.035 0.041 NT-Pro-B Natriuret Pep 06/07/20 06/07/20 06/08/20 16:45 22:01 05:25 Creatine Kinase 35 L 40 L 35 L CK-MB (CK-2) Troponin I NT-Pro-B Natriuret Pep 06/08/20 06/29/20 06/29/20 05:25 07:30 07:30 Creatine Kinase 27 L CK-MB (CK-2) 1.04 Troponin I 0.028 NT-Pro-B Natriuret Pep 65523 H 06/29/20 06/29/20 06/29/20 15:11 15:11 20:37 Creatine Kinase 39 L CK-MB (CK-2) 2.04 Troponin I 0.142 0.166 NT-Pro-B Natriuret Pep 06/30/20 07/08/20 07/08/20 05:00 14:20 14:20 Creatine Kinase 51 L CK-MB (CK-2) 1.95 Troponin I 0.119 0.105 NT-Pro-B Natriuret Pep 07/08/20 07/11/20 07/14/20 14:20 03:45 05:50 Creatine Kinase CK-MB (CK-2) Troponin I NT-Pro-B Natriuret Pep 35757 H 12895 H 8910 H Impressions: Head CT 06/07/20 13:02 IMPRESSION: Stable CT of the brain with bifrontal encephalomalacia. No acute intracranial event. EVIDENCE OF ACUTE STROKE: NO. Thoracentesis Ultrasound 06/08/20 00:00 IMPRESSION: SUCCESSFUL THORACENTESIS AND CHEST TUBE PLACEMENT USING ULTRASOUND GUIDANCE. Abdomen/Pelvis CT 06/17/20 00:00 IMPRESSION: 1. Small bowel obstruction with transition point in the left mid abdomen. This may be a high-grade partial obstruction. Distal small bowel and colon are decompressed. 2. Marked urinary bladder distention, suggestive of bladder outlet obstruction. Clinical correlation is recommended. 3. Loculated right hydropneumothorax and small left pleural effusion, not significantly changed. Compressive atelectasis at the lung bases. 4. Moderate ascites, slightly decreased from previous examination. 5. Mildly nodular contour of the liver, nonspecific however could indicate underlying hepatic cirrhosis. Clinical correlation is with recommended. 6. Diffuse subcutaneous edema, suggestive of fluid overload. 7. Colonic diverticulosis without evidence of diverticulitis. KUB X-Ray 06/22/20 00:00 IMPRESSION: Partial small bowel obstruction Chest CT 06/25/20 00:00 IMPRESSION: Loculated right hydropneumothorax which appears similar at the right lung base from the abdominal CT dated 06/17/2020. Slight interval increase in left pleural effusion. Moderate ascites with a similar nonspecific nodular hepatic contour and slight heterogeneous hepatic attenuation. Paracentesis Ultrasound 07/01/20 08:26 IMPRESSION: SUCCESSFUL ULTRASOUND GUIDED PARACENTESIS. All labs, radiographs, diagnostic studies and EKGs were personally reviewed: Yes In addition, reports of radiographic and diagnostic studies were read: Yes Assessment and Plan - Diagnosis (1) Acute hypoxemic respiratory failure due to COVID-19 Is this a current diagnosis for this admission?: Yes Plan: Remains intubated. Will try weaning today. (2) Atrial fibrillation Qualifiers: Atrial fibrillation type: persistent (not longstanding) Qualified Code(s): I48.19 - Other persistent atrial fibrillation; I48.1 - Persistent atrial fibrillation Is this a current diagnosis for this admission?: Yes Plan: Under better control. Digoxin given will hold off on daily dose in view of renal function. (3) Acute decompensated heart failure Is this a current diagnosis for this admission?: Yes Plan: EF only 25-30%. Seems out of CHF. (4) Dilated cardiomyopathy Is this a current diagnosis for this admission?: Yes Plan: With low EF, this will impact weaning but will go forward. (5) Malnutrition Qualifiers: Malnutrition type: protein-calorie malnutrition Protein-calorie malnutrition severity: moderate Qualified Code(s): E44.0 - Moderate protein- calorie malnutrition Is this a current diagnosis for this admission?: Yes Plan: Still on TPN. (6) Mechanical heart valve present Is this a current diagnosis for this admission?: Yes (7) Shock Is this a current diagnosis for this admission?: Yes Plan: Keep on heparin in view of valve and COVID. (8) Volume overload Qualifiers: Hypervolemia type: unspecified Qualified Code(s): E87.70 - Fluid overload, unspecified Is this a current diagnosis for this admission?: Yes Plan: Stable. Plan Summary: This patient is neither progressing nor back sliding. Will try to wean vent if possible. Critical Time Critical Time (minutes): 35 Level of Care: ICU Anticipated discharge: SNF Anticipated DC Timeframe: Other -: 1. The care of a critical patient is a dynamic process. This note is a retail service representative synopsis but static in nature. The timeframe for treatments given in order is not necessarily the actual time these treatments may have been done. 2. This patient requires critical care secondary to ongoing requirements for therapy not offered or safe outside the critical care environment. Transfer to a lower level of care will result in altered life or limb morbidity and m ortality. 3. Multidisciplinary rounds completed. 4. ABCDE bundle addressed.
--- NOTE | 2020-07-14 09:11 | RADIOLOGY REPORT (SQ) ---
EXAM DESCRIPTION: CHEST SINGLE VIEW IMAGES COMPLETED DATE/TIME: 07/14/2020 8:48 am REASON FOR STUDY: congestion COMPARISON: 07/13/2020 and 07/11/2020 EXAM PARAMETERS: NUMBER OF VIEWS: One view. TECHNIQUE: Single frontal radiographic view of the chest acquired. RADIATION DOSE: NA LIMITATIONS: None. FINDINGS: LUNGS AND PLEURA: Stable pulmonary exam demonstrating diffusely increased interstitial and airspace opacities with small bilateral pleural effusions. No pneumothorax. MEDIASTINUM AND HILAR STRUCTURES: Stable. HEART AND VASCULAR STRUCTURES: Stable. BONES: No acute findings. HARDWARE: Endotracheal tube terminates approximately 1.8 cm cranial to the koko. Endotracheal tube tip and proximal port projects subdiaphragmatically. Right cervical vascular access catheter termin ates in the region of the superior vena cava. Left subclavian dual lumen catheter terminates in the region of the right atrium. Loop recorder. Midline surgical changes. OTHER: Limited evaluation of the upper abdomen demonstrates a gas distended loop of small bowel withi n the left upper quadrant. IMPRESSION: 1. Stable pulmonary exam 2. Stable lines and tubes noting the endotracheal tube terminates 1.8 cm cranial to the koko. 3. Gas distended loop of small bowel seen within the left upper quadrant may represent ileus versus developing obstruction. TECHNICAL DOCUMENTATION: JOB ID: [id number] 2010 [employer]- All Rights Reserved Reading location - IP/workstation name: [email or web address]
[2020-07-14] MEDS: LEVOFLOXACIN 500 MG/D5W RTU 500 MG/100 ML RTUPB IV SCH (09:51)
[2020-07-14] MEDS: AMINO ACIDS 5 %/DEXTROSE 20 % 1,000 ML IV PRN (09:59)
[2020-07-14] MEDS: FAT EMULSIONS 250 ML IV SCH (09:59)
[2020-07-14] MEDS: PANTOPRAZOLE SODIUM 40 MG VIAL IV SCH (10:01)
[2020-07-14] MEDS: ZINC SULFATE 220 MG CAPSULE NG SCH (10:01)
[2020-07-14] MEDS: ASCORBIC ACID 500 MG TABLET NG SCH ×2 (10:01→17:35)
[2020-07-14] MEDS: METOPROLOL TARTRATE 50 MG TABLET NG SCH ×2 (10:01→21:16)
[2020-07-14] MEDS: LIDOCAINE 5% (700 MG) TRANSDERMAL ADH..PATCH TP SCH (10:02)
[2020-07-14] MEDS: MIDODRINE HCL 5 MG TABLET PO SCH (21:15)
[2020-07-14] MEDS: ATORVASTATIN CALCIUM 40 MG TABLET NG SCH (21:15)
[2020-07-14] MEDS: PHARMACY COMMUNICATION ORDER MC SCH (21:16)
[2020-07-14] MEDS: MIRTAZAPINE 15 MG TABLET PO SCH (21:17)
[2020-07-15] MEDS: MORPHINE SULFATE 10 MG/ML INJ IV SCH ×4 (00:15→13:04)
[2020-07-15] MEDS: INSULIN REG, HUMAN 100 UNIT/ML 3 ML VIAL (PYX) SUBCUT SCH ×4 (00:38→18:00)
[2020-07-15] MEDS: DEXAMETHASONE SOD PHOSPHATE INJ 4 MG/1 ML VIAL IV SCH ×4 (00:39→18:03)
[2020-07-15] MEDS: DEXMEDETOMIDINE IN 0.9 % NACL 400 MCG/100 ML RTUPB IV PRN ×3 (00:43→20:00)
[2020-07-15] MEDS ORDERED: HEPARIN SOD (PORCINE) 1,000 UNIT/ML 10 ML VIAL IV PRN (05:00)
[2020-07-15 05:47] LABS: ARTERIAL BLOOD H2CO3 1.33 mmol/L (1.05-1.35); ARTERIAL BLOOD O2 SATURATION 98.3 % (94-98); ARTERIAL BLOOD PCO2 44.2 mmHg (35-45); ARTERIAL BLOOD PO2 118.1 mmHg (80-100); ARTERIAL BLOOD TOTAL CO2 28.4 mmol/L (23-27)
[2020-07-15 05:49] LABS: ARTERIAL BLOOD FIO2 40%
[2020-07-15 05:53] LABS: HEMATOCRIT 25.5 % (37.9-51.0); HEMOGLOBIN 8.3 g/dL (13.5-17.0); MEAN CORPUSCULAR HEMOGLOBIN 27.7 pg (27.0-33.4); MEAN CORPUSCULAR HGB CONC 32.4 g/dL (32.0-36.0); MEAN CORPUSCULAR VOLUME 86 fl (80-97); RED BLOOD COUNT 2.98 10^6/uL (4.35-5.55); RED CELL DISTRIBUTION WIDTH 20.2 % (11.5-14.0); WHITE BLOOD COUNT 13.8 10^3/uL (4.0-10.5)
[2020-07-15 06:05] LABS: ANION GAP 5 (5-19); BLOOD UREA NITROGEN 47 mg/dL (7-20); CALCIUM 7.3 mg/dL (8.4-10.2); CARBON DIOXIDE 26 mmol/L (22-30); CHLORIDE 93 mmol/L (98-107); GLUCOSE 157 mg/dL (75-110); POTASSIUM 4.8 mmol/L (3.6-5.0)
[2020-07-15 06:39] LABS: PLATELET COUNT 82 10^3/uL (150-450)
[2020-07-15 06:45] LABS: ABSOLUTE MONOCYTES # (MANUAL) 0.3 10^3/uL (0.1-1.4); BASOPHILS % (MANUAL) 0 % (0-2); EOSINOPHILS % (MANUAL) 0 % (0-6); LYMPHOCYTES % (MANUAL) 0 % (13-45); MONOCYTES % (MANUAL) 2 % (3-13); NUCLEATED RED BLOOD CELLS 1 /100 WBC (0); SEGMENTED NEUTROPHILS % (MAN) 98 % (42-78); TOTAL CELLS COUNTED 100
[2020-07-15 06:47] LABS: ANISOCYTOSIS 2+
[2020-07-15 06:58] LABS: HYPOCHROMASIA SLIGHT; PLATELET COMMENT DECREASED; POIKILOCYTOSIS SLIGHT; POLYCHROMASIA SLIGHT
[2020-07-15] MEDS: HEPARIN SOD (PORCINE) 1,000 UNIT/ML 10 ML VIAL IV PRN (07:20)
--- NOTE | 2020-07-15 08:46 | PDOC CRITICAL CARE PROG REPORT ---
General Date:: 07/15/20 ICU Day:: 7 Ventilator Day:: 7 Resuscitation Status: Full Code Events in the past 12 to 24 Hours:: Stablized HR. Starting to wean vent Review of systems relevant to events:: Pulmonary, CV, renal. Reason for ICU Addmission:: Post CPR resuscitation; endotracheally intubated, on HD. - Medications: Medications reviewed and adjusted accordingly: Yes Vasopressors:: None Sedation:: Precedex Physical Exam Vital Signs: Temp Pulse Resp BP Pulse Ox 96.8 F L 122 H 12 86/66 L 95 07/15/20 08:00 07/15/20 08:00 07/15/20 08:00 07/15/20 08:00 07/15/20 06:51 Intake & Output 07/14/20 07/15/20 07/16/20 06:59 06:59 06:59 Intake Total 1076 321 Output Total 565 245 10 Balance 511 76 -10 Weight 66.4 kg 64.8 kg Weight/Height Weight 64.8 kg Height 5 ft 4 in General appearance: PRESENT: no acute distress, cooperative, thin Head exam: PRESENT: atraumatic, normocephalic Eye exam: PRESENT: conjunctiva pink, EOMI, PERRLA. ABSENT: scleral icterus Ear exam: PRESENT: normal external ear exam Mouth exam: PRESENT: moist, tongue midline Respiratory exam: PRESENT: clear to auscultation [place], decreased breath sounds. ABSENT: rales, rhonchi, wheezes Cardiovascular exam: PRESENT: tachycardia GI/Abdominal exam: PRESENT: normal bowel sounds, soft. ABSENT: distended, guard ing, mass, organolmegaly, rebound, tenderness Rectal exam: PRESENT: deferred Gentrourinary exam: PRESENT: indwelling catheter Extremities exam: PRESENT: +2 edema Musculoskeletal exam: PRESENT: normal inspection Neurological exam: PRESENT: alert, altered, awake, CN II-XII grossly intact Skin exam: PRESENT: dry, intact, warm. ABSENT: cyanosis, rash Tubes/Lines: PRESENT: Endotracheal Tube, Dialysis catheter, Nasogastic Tube Laboratory/Radiographs Laboratory Results: 07/15/20 05:20 07/15/20 05:20 07/15/20 07/15/20 07/15/20 05:20 05:20 05:20 WBC 13.8 H RBC 2.98 L Hgb 8.3 L Hct 25.5 L MCV 86 MCH 27.7 MCHC 32.4 RDW 20.2 H Plt Count 82 L Seg Neutrophils % Not Reportable Carbonic Acid 1.33 HCO3/H2CO3 Ratio 20:1 ABG pH 7.40 ABG pCO2 44.2 ABG pO2 118.1 H ABG HCO3 27.0 H ABG O2 Saturation 98.3 H ABG Base Excess 2.0 FiO2 40% Sodium 124.3 L Potassium 4.8 Chloride 93 L Carbon Dioxide 26 Anion Gap 5 BUN 47 H Creatinine 1.35 H Est GFR ( Amer) > 60 Glucose 157 H Calcium 7.3 L Magnesium 2.3 06/07/20 06/07/20 06/07/20 12:24 12:24 15:08 Creatine Kinase 34 L CK-MB (CK-2) Troponin I 0.035 0.041 NT-Pro-B Natriuret Pep 06/07/20 06/07/20 06/08/20 16:45 22:01 05:25 Creatine Kinase 35 L 40 L 35 L CK-MB (CK-2) Troponin I NT-Pro-B Natriuret Pep 06/08/20 06/29/20 06/29/20 05:25 07:30 07:30 Creatine Kinase 27 L CK-MB (CK-2) 1.04 Troponin I 0.028 NT-Pro-B Natriuret Pep 39816 H 06/29/20 06/29/20 06/29/20 15:11 15:11 20:37 Creatine Kinase 39 L CK-MB (CK-2) 2.04 Troponin I 0.142 0.166 NT-Pro-B Natriuret Pep 06/30/20 07/08/20 07/08/20 05:00 14:20 14:20 Creatine Kinase 51 L CK-MB (CK-2) 1.95 Troponin I 0.119 0.105 NT-Pro-B Natriuret Pep 07/08/20 07/11/20 07/14/20 14:20 03:45 05:50 Creatine Kinase CK-MB (CK-2) Troponin I NT-Pro-B Natriuret Pep 93913 H 65011 H 8910 H Impressions: Head CT 06/07/20 13:02 IMPRESSION: Stable CT of the brain with bifrontal encephalomalacia. No acute intracranial event. EVIDENCE OF ACUTE STROKE: NO. Thoracentesis Ultrasound 06/08/20 00:00 IMPRESSION: SUCCESSFUL THORACENTESIS AND CHEST TUBE PLACEMENT USING ULTRASOUND GUIDANCE. Abdomen/Pelvis CT 06/17/20 00:00 IMPRESSION: 1. Small bowel obstruction with transition point in the left mid abdomen. This may be a high-grade partial obstruction. Distal small bowel and colon are decompressed. 2. Marked urinary bladder distention, suggestive of bladder outlet obstruction. Clinical correlation is recommended. 3. Loculated right hydropneumothorax and small left pleural effusion, not significantly changed. Compressive atelectasis at the lung bases. 4. Moderate ascites, slightly decreased from previous examination. 5. Mildly nodular contour of the liver, nonspecific however could indicate underlying hepatic cirrhosis. Clinical correlation is with recommended. 6. Diffuse subcutaneous edema, suggestive of fluid overload. 7. Colonic diverticulosis without evidence of diverticulitis. KUB X-Ray 06/22/20 00:00 IMPRESSION: Partial small bowel obstruction Chest CT 06/25/20 00:00 IMPRESSION: Loculated right hydropneumothorax which appears similar at the right lung base from the abdominal CT dated 06/17/2020. Slight interval increase in left pleural effusion. Moderate ascites with a similar nonspecific nodular hepatic contour and slight heterogeneous hepatic attenuation. Paracentesis Ultrasound 07/01/20 08:26 IMPRESSION: SUCCESSFUL ULTRASOUND GUIDED PARACENTESIS. All labs, radiographs, diagnostic studies and EKGs were personally reviewed: Yes In addition, reports of radiographic and diagnostic studies were read: Yes Assessment and Plan - Diagnosis (1) Acute hypoxemic respiratory failure due to COVID-19 Is this a current diagnosis for this admission?: Yes Plan: Respiratory status stable. Try PSV today. (2) Atrial fibrillation Qualifiers: Atrial fibrillation type: persistent (not longstanding) Qualified Code(s): I48.19 - Other persistent atrial fibrillation; I48.1 - Persistent atrial fibrillation Is this a current diagnosis for this admission?: Yes Plan: On long tern anticoagulation for this and HT valve. (3) Acute decompensated heart failure Is this a current diagnosis for this admission?: Yes Plan: Inactive right now. (4) Dilated cardiomyopathy Is this a current diagnosis for this admission?: Yes Plan: Off milrinone and levophed. (5) Malnutrition Qualifiers: Malnutrition type: protein-calorie malnutrition Protein-calorie malnutrition severity: moderate Qualified Code(s): E44.0 - Moderate protein- calorie malnutrition Is this a current diagnosis for this admission?: Yes Plan: To get bolus tube feeds due to lack of pump. (6) Mechanical heart valve present Is this a current diagnosis for this admission?: Yes Plan: Keep on heparin drip. May restart coumadin. (7) Shock Is this a current diagnosis for this admission?: Yes Plan: Resolved (8) Volume overload Qualifiers: Hypervolemia type: unspecified Qualified Code(s): E87.70 - Fluid overload, unspecified Is this a current diagnosis for this admission?: Yes Plan: Currently euvolemic to a bit dry. Plan Summary: Try vent weaning now that CV status is more stable and he is off levophed and milrinone. Critical Time Critical Time (minutes): 40 Level of Care: ICU Anticipated discharge: SNF Anticipated DC Timeframe: Other -: 1. The care of a critical patient is a dynamic process. This note is a financial services sales representative synopsis but static in nature. The timeframe for treatments given in order is not necessarily the actual time these treatments may have been done. 2. This patient requires critical care secondary to ongoing requirements for therapy not offered or safe outside the critical care environment. Transfer to a lower level of care will result in altered life or limb morbidity and mortality. 3. Multidisciplinary rounds completed. 4. ABCDE bundle addressed.
[2020-07-15] MEDS: MIDODRINE HCL 5 MG TABLET PO SCH ×3 (09:15→18:03)
--- NOTE | 2020-07-15 09:23 | RADIOLOGY REPORT (SQ) ---
EXAM DESCRIPTION: CHEST SINGLE VIEW IMAGES COMPLETED DATE/TIME: 07/15/2020 6:20 am REASON FOR STUDY: vent COMPARISON: 07/14/2020 EXAM PARAMETERS: NUMBER OF VIEWS: One view. TECHNIQUE: Single frontal radiographic view of the chest acquired. RADIATION DOSE: NA LIMITATIONS: None. FINDINGS: LUNGS AND PLEURA: Grossly stable dilated lateral interstitial and patchy bibasilar airspac e disease. Small bilateral pleural effusions. No pneumothorax. MEDIASTINUM AND HILAR STRUCTURES: No masses. Contour normal. HEART AND VASCULAR STRUCTURES: Stable. BONES: Sternotomy changes. No new findings. HARDWARE: Endotracheal tube tip overlies lower thoracic trachea, 2.2 cm above the koko. Right inte rnal jugular central venous catheter tip overlies SVC. Left internal jugular base tunneled hemodialy sis catheter tip at cavoatrial junction. Sternotomy hardware. Aortic valvular prosthesis. Enteric tube tip below diaphragm but excluded by collimation. OTHER: Unchanged gas dilated small bowel loops within the left upper quadrant measuring up to 4.0 cm. IMPRESSION: 1. Stable chest with bilateral interstitial and bibasilar opacities, likely edema, and small bilateral effusions. 2. Endotracheal tube tip overlies lower thoracic trachea, 2.2 cm above the koko, stable. Addition al lines and tubes as above. 3. Stable gas dilated small bowel loops in the left upper quadrant TECHNICAL DOCUMENTATION: JOB ID: [id number] 2010 [employer]- All Rights Reserved Reading location - IP/workstation name: [email or web address]
[2020-07-15] MEDS: LIDOCAINE 5% (700 MG) TRANSDERMAL ADH..PATCH TP SCH (11:39)
[2020-07-15] MEDS: BISACODYL 10 MG SUPP.RECT PR SCH (11:40)
[2020-07-15] MEDS: DIGOXIN INJ 0.5 MG/2 ML AMPULE IV SCH (13:02)
[2020-07-15] MEDS: ASPIRIN 81 MG TABLET, CHEWABLE PO SCH (13:02)
[2020-07-15] MEDS: ASCORBIC ACID 500 MG TABLET NG SCH ×2 (13:03→18:04)
[2020-07-15] MEDS: METOPROLOL TARTRATE 25 MG TABLET NG SCH ×2 (13:03→21:19)
[2020-07-15] MEDS: PANTOPRAZOLE SODIUM 40 MG VIAL IV SCH (13:03)
[2020-07-15] MEDS: ZINC SULFATE 220 MG CAPSULE NG SCH (13:03)
[2020-07-15] MEDS: POLYETHYLENE GLYCOL 3350 POWDER 17 GM/1 PACKET PO SCH (13:03)
[2020-07-15] MEDS: DOCUSATE SODIUM 100 MG CAPSULE PO SCH ×2 (13:03→18:03)
--- NOTE | 2020-07-15 14:19 | PDOC PROGRESS REPORT ---
Subjective Progress Note for:: 07/15/20 Reason For Visit: Patient seen today on dialysis in the ICU undergoing dialysis. Remains intubated and patrially sedated. Blood pressure seems to be rather tenuous which makes it difficult to extract fluid. Discussions were done with the treating nurse. Labs and medications were reviewed. Dialysis orders were reviewed with the treating dialysis nurse. Currently trying to be weaned off the ventilator. Physical Exam Vital Signs: Temp Pulse Resp BP Pulse Ox 96.8 F L 128 H 12 97/72 L 100 07/15/20 12:00 07/15/20 12:00 07/15/20 12:00 07/15/20 12:00 07/15/20 12:00 Intake & Output 07/14/20 07/15/20 07/16/20 06:59 06:59 06:59 Intake Total 1076 321 84 Output Total 565 245 30 Balance 511 76 54 Weight 66.4 kg 64.8 kg General appearance: PRESENT: no acute distress Respiratory exam: PRESENT: clear to auscultation [place]. ABSENT: crackles Cardiovascular exam: PRESENT: +S1, +S2 GI/Abdominal exam: PRESENT: ascites, distended Results Laboratory Results: 07/15/20 05:20 07/15/20 05:20 07/15/20 07/15/20 07/15/20 05:20 05:20 05:20 WBC 13.8 H RBC 2.98 L Hgb 8.3 L Hct 25.5 L MCV 86 MCH 27.7 MCHC 32.4 RDW 20.2 H Plt Count 82 L Seg Neutrophils % Not Reportable Carbonic Acid 1.33 HCO3/H2CO3 Ratio 20:1 ABG pH 7.40 ABG pCO2 44.2 ABG pO2 118.1 H ABG HCO3 27.0 H ABG O2 Saturation 98.3 H ABG Base Excess 2.0 FiO2 40% Sodium 124.3 L Potassium 4.8 Chloride 93 L Carbon Dioxide 26 Anion Gap 5 BUN 47 H Creatinine 1.35 H Est GFR ( Amer) > 60 Glucose 157 H Calcium 7.3 L Magnesium 2.3 06/07/20 06/07/20 06/07/20 12:24 12:24 15:08 Creatine Kinase 34 L CK-MB (CK-2) Troponin I 0.035 0.041 NT-Pro-B Natriuret Pep 0706/07/20 06/08/20 16:45 22:01 05:25 Creatine Kinase 35 L 40 L 35 L CK-MB (CK-2) Troponin I NT-Pro-B Natriuret Pep 06/08/20 06/29/20 06/29/20 05:25 07:30 07:30 Creatine Kinase 27 L CK-MB (CK-2) 1.04 Troponin I 0.028 NT-Pro-B Natriuret Pep 09755 H 06/29/20 06/29/20 06/29/20 15:11 15:11 20:37 Creatine Kinase 39 L CK-MB (CK-2) 2.04 Troponin I 0.142 0.166 NT-Pro-B Natriuret Pep 06/30/20 07/08/20 07/08/20 05:00 14:20 14:20 Creatine Kinase 51 L CK-MB (CK-2) 1.95 Troponin I 0.119 0.105 NT-Pro-B Natriuret Pep 07/08/20 07/11/20 07/14/20 14:20 03:45 05:50 Creatine Kinase CK-MB (CK-2) Troponin I NT-Pro-B Natriuret Pep 92171 H 21690 H 8910 H Impressions: Head CT 06/07/20 13:02 IMPRESSION: Stable CT of the brain with bifrontal encephalomalacia. No acute intracranial event. EVIDENCE OF ACUTE STROKE: NO. Thoracentesis Ultrasound 06/08/20 00:00 IMPRESSION: SUCCESSFUL THORACENTESIS AND CHEST TUBE PLACEMENT USING ULTRASOUND GUIDANCE. Abdomen/Pelvis CT 06/17/20 00:00 IMPRESSION: 1. Small bowel obstruction with transition point in the left mid abdomen. This may be a high-grade partial obstruction. Distal small bowel and colon are decompressed. 2. Marked urinary bladder distention, suggestive of bladder outlet obstruction. Clinical correlation is recommended. 3. Loculated right hydropneumothorax and small left pleural effusion, not significantly changed. Compressive atelectasis at the lung bases. 4. Moderate ascites, slightly decreased from previous examination. 5. Mildly nodular contour of the liver, nonspecific however could indicate underlying hepatic cirrhosis. Clinical correlation is with recommended. 6. Diffuse subcutaneous edema, suggestive of fluid overload. 7. Colonic diverticulosis without evidence of diverticulitis. KUB X-Ray 06/22/20 00:00 IMPRESSION: Partial small bowel obstruction Chest CT 06/25/20 00:00 IMPRESSION: Loculated right hydropneumothorax which appears similar at the [facility] lung base from the abdominal CT dated 06/17/2020. Slight interval increase in left pleural effusion. Moderate ascites with a similar nonspecific nodular hepatic contour and slight heterogeneous hepatic attenuation. Paracentesis Ultrasound 07/01/20 08:26 IMPRESSION: SUCCESSFUL ULTRASOUND GUIDED PARACENTESIS. Chest X-Ray 07/15/20 05:00 IMPRESSION: 1. Stable chest with bilateral interstitial and bibasilar opacities, likely edema, and small bilateral effusions. 2. Endotracheal tube tip overlies lower thoracic trachea, 2.2 cm above the koko, stable. Additional lines and tubes as above. 3. Stable gas dilated small bowel loops in the left upper quadrant Assessment & Plan - Diagnosis (1) Acute hypoxemic respiratory failure due to COVID-19 Is this a current diagnosis for this admission?: Yes Plan: Currently intubated. (2) ESRD (end stage renal disease) on dialysis Is this a current diagnosis for this admission?: Yes Plan: Patient currently undergoing dialysis through an IJ PermCath. Plan to remove 1-2 L as tolerated.However it is going need to be difficult given his tenuous blood pressure . Dialysis orders were reviewed with treating dialysis nurse.. (3) Ascites Qualifiers: Ascites type: due to alcoholic cirrhosis Qualified Code(s): K70.31 - Alcoholic cirrhosis of liver with ascites Is this a current diagnosis for this admission?: Yes Plan: Monitor for the need of paracentesis. (4) Atrial fibrillation Qualifiers: Atrial fibrillation type: persistent (not longstanding) Qualified Code(s): I48.19 - Other persistent atrial fibrillation; I48.1 - Persistent atrial fibrillation Is this a current diagnosis for this admission?: Yes Plan: Rate controlled stable. (5) CHF (congestive heart failure) Qualifiers: Heart failure type: combined systolic and diastolic Heart failure chronicity: chronic Qualified Code(s): I50.42 - Chronic combined systolic (congestive) and diastolic (congestive) heart failure Is this a current diagnosis for this admission?: Yes Plan: Status quo. Background of dilated cardiomyopathy being managed by hospitalist and cardiology. (6) Ventricular tachyarrhythmia Is this a current diagnosis for this admission?: Yes Plan: Status post cardioversion and stable. (7) Bilateral pleural effusion Plan: Has had thoracentesis followed by right chest tube placement which has now been removed. He has now undergone pleurodesis. (8) Hypotension Qualifiers: Hypotension type: idiopathic hypotension Qualified Code(s): I95.0 - Idiopathic hypotension Is this a current diagnosis for this admission?: Yes Plan: Patient on pressors as well as Midodrin but blood pressure still tenuous. Monitor. (9) Hyponatremia Is this a current diagnosis for this admission?: Yes Plan: Dilutional. See response to some fluid removal. Monitor. (10) Acute decompensated heart failure Is this a current diagnosis for this admission?: Yes Plan: In the background of covid pneumonia/dilated cardiomyopathy. (11) Dilated cardiomyopathy Is this a current diagnosis for this admission?: Yes Plan: /Congestive heart failure. Being managed by hospitalist/cardiology. (12) Protein-energy malnutrition Qualifiers: Protein-calorie malnutrition severity: mild Qualified Code(s): E44.1 - Mild protein-calorie malnutrition Is this a current diagnosis for this admission?: Yes Plan: Adding to third spacing. Trial of albumin infusions/TPN.
[2020-07-15] MEDS: HEPARIN SODIUM,PORCINE/D5W 25,000 UNIT/250 ML RTUINJ IV PRN (20:25)
[2020-07-15] MEDS: ALBUMIN HUMAN 12.5 GM/50 ML RTUINJ IV SCH ×3 (21:17→23:40)
[2020-07-15] MEDS: MIRTAZAPINE 15 MG TABLET PO SCH (21:18)
[2020-07-15] MEDS: ATORVASTATIN CALCIUM 40 MG TABLET NG SCH (21:18)
[2020-07-15] MEDS: PHARMACY COMMUNICATION ORDER MC SCH (21:27)
[2020-07-16] MEDS: ACETAMINOPHEN 325 MG TABLET PO PRN (00:19)
[2020-07-16] MEDS: DEXAMETHASONE SOD PHOSPHATE INJ 4 MG/1 ML VIAL IV SCH ×5 (00:19→23:55)
[2020-07-16] MEDS: INSULIN REG, HUMAN 100 UNIT/ML 3 ML VIAL (PYX) SUBCUT SCH ×5 (00:21→23:55)
[2020-07-16] MEDS: DEXMEDETOMIDINE IN 0.9 % NACL 400 MCG/100 ML RTUPB IV PRN ×3 (00:36→18:05)
[2020-07-16] MEDS: ALBUMIN HUMAN 12.5 GM/50 ML RTUINJ IV SCH (00:37)
[2020-07-16] MEDS: HEPARIN SOD (PORCINE) 1,000 UNIT/ML 10 ML VIAL IV PRN (01:52)
[2020-07-16] MEDS: DEXTROSE 5%-NORMAL SALINE 1,000 ML IV PRN ×2 (01:53→23:55)
[2020-07-16 06:42] LABS: ARTERIAL BLOOD BASE EXCESS 1.3 mmol/L; ARTERIAL BLOOD FIO2 40%; ARTERIAL BLOOD H2CO3 1.24 mmol/L (1.05-1.35); ARTERIAL BLOOD HCO3 25.9 mmol/L (20-24); ARTERIAL BLOOD PCO2 41.1 mmHg (35-45); ARTERIAL BLOOD PH 7.42 (7.35-7.45); ARTERIAL BLOOD PO2 89.9 mmHg (80-100); ARTERIAL BLOOD TOTAL CO2 27.2 mmol/L (23-27)
[2020-07-16 06:51] LABS: HEMATOCRIT 23.5 % (37.9-51.0); MEAN CORPUSCULAR HEMOGLOBIN 27.7 pg (27.0-33.4); MEAN CORPUSCULAR HGB CONC 32.7 g/dL (32.0-36.0); MEAN CORPUSCULAR VOLUME 85 fl (80-97); RED BLOOD COUNT 2.78 10^6/uL (4.35-5.55); RED CELL DISTRIBUTION WIDTH 19.8 % (11.5-14.0); WHITE BLOOD COUNT 12.3 10^3/uL (4.0-10.5)
[2020-07-16 06:57] LABS: INTERNATIONAL RATION (INR) 1.42; PROTHROMBIN TIME 17.5 SEC (11.4-15.4)
[2020-07-16 07:05] LABS: ALBUMIN 2.6 g/dL (3.5-5.0); ALKALINE PHOSPHATASE 167 U/L (38-126); ASPARTATE AMINO TRANSFERASE 98 U/L (17-59); BILIRUBIN,DIRECT 0.6 mg/dL (0.0-0.4); BILIRUBIN,TOTAL 1.2 mg/dL (0.2-1.3); BLOOD UREA NITROGEN 43 mg/dL (7-20); CALCIUM 7.8 mg/dL (8.4-10.2); CARBON DIOXIDE 29 mmol/L (22-30); CHLORIDE 95 mmol/L (98-107); GLUCOSE 92 mg/dL (75-110); PHOSPHORUS 4.3 mg/dL (2.5-4.5); POTASSIUM 4.6 mmol/L (3.6-5.0)
[2020-07-16 07:16] LABS: PLATELET COUNT 75 10^3/uL (150-450)
[2020-07-16 07:19] LABS: ANION GAP 5 (5-19)
[2020-07-16 07:20] LABS: ABSOLUTE LYMPHOCYTES# (MANUAL) 0.1 10^3/uL (0.5-4.7); ABSOLUTE MONOCYTES # (MANUAL) 0.5 10^3/uL (0.1-1.4); BASOPHILS % (MANUAL) 0 % (0-2); EOSINOPHILS % (MANUAL) 0 % (0-6); LYMPHOCYTES % (MANUAL) 1 % (13-45); MONOCYTES % (MANUAL) 4 % (3-13); SEGMENTED NEUTROPHILS % (MAN) 95 % (42-78); TOTAL CELLS COUNTED 100
[2020-07-16 07:25] LABS: ANISOCYTOSIS 2+; DIGOXIN 1.97 ng/mL (0.8-2.0); OVALOCYTES 1+; PLATELET COMMENT DECREASED
[2020-07-16 07:27] LABS: HEMOGLOBIN 7.7 g/dL (13.5-17.0)
[2020-07-16 07:35] LABS: PARTIAL THROMBOPLASTIN TIME > 235.0 SEC (23.5-35.8)
[2020-07-16] MEDS: DOCUSATE SODIUM 100 MG CAPSULE PO SCH ×2 (12:29→19:31)
[2020-07-16] MEDS: METOPROLOL TARTRATE 25 MG TABLET NG SCH ×2 (12:30→21:44)
[2020-07-16] MEDS: ZINC SULFATE 220 MG CAPSULE NG SCH (12:30)
[2020-07-16] MEDS: PANTOPRAZOLE SODIUM 40 MG VIAL IV SCH (12:31)
[2020-07-16] MEDS: MIDODRINE HCL 5 MG TABLET PO SCH ×3 (12:31→19:31)
[2020-07-16] MEDS: ASPIRIN 81 MG TABLET, CHEWABLE PO SCH (12:31)
[2020-07-16] MEDS: ASCORBIC ACID 500 MG TABLET NG SCH ×2 (12:32→19:32)
[2020-07-16] MEDS: BISACODYL 10 MG SUPP.RECT PR SCH (12:33)
[2020-07-16] MEDS: POLYETHYLENE GLYCOL 3350 POWDER 17 GM/1 PACKET PO SCH (12:34)
[2020-07-16] MEDS: DIGOXIN INJ 0.5 MG/2 ML AMPULE IV SCH (12:34)
[2020-07-16] MEDS: LIDOCAINE 5% (700 MG) TRANSDERMAL ADH..PATCH TP SCH (12:47)
--- NOTE | 2020-07-16 13:05 | PDOC CRITICAL CARE PROG REPORT ---
General Date:: 07/16/20 ICU Day:: 6 Ventilator Day:: 6 Hospital Day:: 37 Resuscitation Status: Full Code Events in the past 12 to 24 Hours:: Able to wean vent some. Review of systems relevant to events:: Pulmonry, renal. Reason for ICU Addmission:: Post CPR resuscitation; endotracheally intubated, on HD. - Medications: Medications reviewed and adjusted accordingly: Yes Vasopressors:: None Sedation:: precedex Physical Exam Vital Signs: Temp Pulse Resp BP Pulse Ox 97.7 F 80 10 L 72/59 L 100 07/16/20 10:49 07/16/20 10:00 07/16/20 10:49 07/16/20 10:49 07/16/20 12:00 Intake & Output 07/15/20 07/16/20 07/17/20 06:59 06:59 06:59 Intake Total 321 1060 41 Output Total 245 1740 0 Balance 76 -680 41 Weight 64.8 kg 65.2 kg Weight/Height Weight 65.2 kg Height 5 ft 4 in General appearance: PRESENT: no acute distress, cooperative, thin Head exam: PRESENT: atraumatic, normocephalic Eye exam: PRESENT: conjunctiva pink, EOMI, PERRLA. ABSENT: scleral icterus Ear exam: PRESENT: normal external ear exam Mouth exam: PRESENT: moist, tongue midline Respiratory exam: PRESENT: clear to auscultation [place], decreased breath sounds. ABSENT: rales, rhonchi, wheezes Cardiovascular exam: PRESENT: RRR. ABSENT: diastolic murmur, rubs, systolic murmur GI/Abdominal exam: PRESENT: normal bowel sounds, soft. ABSENT: distended, guarding, mass, organolmegaly, rebound, tenderness Rectal exam: PRESENT: deferred Gentrourinary exam: PRESENT: indwelling catheter Extremities exam: PRESENT: +2 edema Musculoskeletal exam: PRESENT: normal inspection Neurological exam: PRESENT: alert, altered, awake Skin exam: PRESENT: dry, intact, warm. ABSENT: cyanosis, rash Tubes/Lines: PRESENT: Endotracheal Tube, Nasogastic Tube Laboratory/Radiographs Laboratory Results: 07/16/20 06:19 07/16/20 06:19 07/16/20 07/16/20 07/16/20 06:19 06:19 06:19 WBC 12.3 H RBC 2.78 L Hgb 7.7 L Hct 23.5 L MCV 85 MCH 27.7 MCHC 32.7 RDW 19.8 H Plt Count 75 L Seg Neutrophils % Not Reportable Carbonic Acid 1.24 HCO3/H2CO3 Ratio 20:1 ABG pH 7.42 ABG pCO2 41.1 ABG pO2 89.9 ABG HCO3 25.9 H ABG O2 Saturation 97.0 ABG Base Excess 1.3 FiO2 40% Sodium 129.3 L Potassium 4.6 Chloride 95 L Carbon Dioxide 29 Anion Gap 5 BUN 43 H Creatinine 1.50 H Est GFR ( Amer) 58 L Glucose 92 Calcium 7.8 L Phosphorus 4.3 Magnesium 2.3 Total Bilirubin 1.2 AST 98 H Alkaline Phosphatase 167 H Total Protein 5.0 L Albumin 2.6 L 06/07/20 06/07/20 06/07/20 12:24 12:24 15:08 Creatine Kinase 34 L CK-MB (CK-2) Troponin I 0.035 0.041 NT-Pro-B Natriuret Pep 06/07/20 06/07/20 06/08/20 16:45 22:01 05:25 Creatine Kinase 35 L 40 L 35 L CK-MB (CK-2) Troponin I NT-Pro-B Natriuret Pep 06/08/20 06/29/20 06/29/20 05:25 07:30 07:30 Creatine Kinase 27 L CK-MB (CK-2) 1.04 Troponin I 0.028 NT-Pro-B Natriuret Pep 18399 H 06/29/20 06/29/20 06/29/20 15:11 15:11 20:37 Creatine Kinase 39 L CK-MB (CK-2) 2.04 Troponin I 0.142 0.166 NT-Pro-B Natriuret Pep 06/30/20 07/08/20 07/08/20 05:00 14:20 14:20 Creatine Kinase 51 L CK-MB (CK-2) 1.95 Troponin I 0.119 0.105 NT-Pro-B Natriuret Pep 07/08/20 07/11/20 07/14/20 14:20 03:45 05:50 Creatine Kinase CK-MB (CK-2) Troponin I NT-Pro-B Natriuret Pep 93535 H 39208 H 8910 H Impressions: Head CT 06/07/20 13:02 IMPRESSION: Stable CT of the brain with bifrontal encephalomalacia. No acute intracranial event. EVIDENCE OF ACUTE STROKE: NO. Thoracentesis Ultrasound 06/08/20 00:00 IMPRESSION: SUCCESSFUL THORACENTESIS AND CHEST TUBE PLACEMENT USING ULTRASOUND GUIDANCE. Abdomen/Pelvis CT 06/17/20 00:00 IMPRESSION: 1. Small bowel obstruction with transition point in the left mid abdomen. This may be a high-grade partial obstruction. Distal small bowel and colon are decompressed. 2. Marked urinary bladder distention, suggestive of bladder outlet obstruction. Clinical correlation is recommended. 3. Loculated right hydropneumothorax and small left pleural effusion, not significantly changed. Compressive atelectasis at the lung bases. 4. Moderate ascites, slightly decreased from previous examination. 5. Mildly nodular contour of the liver, nonspecific however could indicate underlying hepatic cirrhosis. Clinical correlation is with recommended. 6. Diffuse subcutaneous edema, suggestive of fluid overload. 7. Colonic diverticulosis without evidence of diverticulitis. KUB X-Ray 06/22/20 00:00 IMPRESSION: Partial small bowel obstruction Chest CT 06/25/20 00:00 IMPRESSION: Loculated right hydropneumothorax which appears similar at the right lung base from the abdominal CT dated 06/17/2020. Slight interval increase in left pleural effusion. Moderate ascites with a similar nonspecific nodular hepatic contour and slight h eterogeneous hepatic attenuation. Paracentesis Ultrasound 07/01/20 08:26 IMPRESSION: SUCCESSFUL ULTRASOUND GUIDED PARACENTESIS. Chest X-Ray 07/15/20 05:00 IMPRESSION: 1. Stable chest with bilateral interstitial and bibasilar opacities, likely edema, and small bilateral effusions. 2. Endotracheal tube tip overlies lower thoracic trachea, 2.2 cm above the koko, stable. Additional lines and tubes as above. 3. Stable gas dilated small bowel loops in the left upper quadrant All labs, radiographs, diagnostic studies and EKGs were personally reviewed: Yes In addition, reports of radiographic and diagnostic studies were read: Yes Assessment and Plan - Diagnosis (1) Acute hypoxemic respiratory failure due to COVID-19 Is this a current diagnosis for this admission?: Yes Plan: Lungs seem to be improving somewhat. Will try PSV today. Hope to extubate soon. (2) Atrial fibrillation Qualifiers: Atrial fibrillation type: persistent (not longstanding) Qualified Code(s): I48.19 - Other persistent atrial fibrillation; I48.1 - Persistent atrial fibrillation Is this a current diagnosis for this admission?: Yes Plan: Paced (3) Acute decompensated heart failure Is this a current diagnosis for this admission?: Yes Plan: Inactive (4) Dilated cardiomyopathy Is this a current diagnosis for this admission?: Yes Plan: Stable (5) Malnutrition Qualifiers: Malnutrition type: protein-calorie malnutrition Protein-calorie malnutrition severity: moderate Qualified Code(s): E44.0 - Moderate protein- calorie malnutrition Is this a current diagnosis for this admission?: Yes Plan: Getting TF (6) Mechanical heart valve present Is this a current diagnosis for this admission?: Yes Plan: Still on heparin (7) Shock Is this a current diagnosis for this admission?: Yes Plan: His BP is low but he is not in a shock state. His EF is 25% and it is not unusual for this to create a chronically low BP. (8) Volume overload Qualifiers: Hypervolemia type: unspecified Qualified Code(s): E87.70 - Fluid overload, unspecified Is this a current diagnosis for this admission?: Yes Plan: Inactive. Plan Summary: I would like to wean more to PSV and hope to get extubated if stable. Critical Time Critical Time (minutes): 35 Level of Care: ICU Anticipated discharge: SNF Anticipated DC Timeframe: Other -: 1. The care of a critical patient is a dynamic process. This note is a help desk representative synopsis but static in nature. The timeframe for treatments given in order is not necessarily the actual time these treatments may have been done. 2. This patient requires critical care secondary to ongoing requirements for therapy not offered or safe outside the critical care environment. Transfer to a lower level of care will result in altered life or limb morbidity and mortality. 3. Multidisciplinary rounds completed. 4. ABCDE bundle addressed.
[2020-07-16] MEDS: MIRTAZAPINE 15 MG TABLET PO SCH (21:44)
[2020-07-16] MEDS: ATORVASTATIN CALCIUM 40 MG TABLET NG SCH (21:44)
[2020-07-16] MEDS: PHARMACY COMMUNICATION ORDER MC SCH (21:45)
[2020-07-17] MEDS: DEXMEDETOMIDINE IN 0.9 % NACL 400 MCG/100 ML RTUPB IV PRN ×2 (04:03→15:46)
[2020-07-17] MEDS ORDERED: FENTANYL CITRATE INJ/PF 100 MCG/2 ML AMPUL ONE (04:40)
[2020-07-17] MEDS: FENTANYL CITRATE INJ/PF 100 MCG/2 ML AMPUL IV PRN ×3 (05:00→22:41)
[2020-07-17] MEDS: DEXAMETHASONE SOD PHOSPHATE INJ 4 MG/1 ML VIAL IV SCH ×3 (07:08→18:19)
[2020-07-17] MEDS: INSULIN REG, HUMAN 100 UNIT/ML 3 ML VIAL (PYX) SUBCUT SCH ×3 (07:08→18:19)
[2020-07-17 07:41] LABS: ARTERIAL BLOOD PH 7.41 (7.35-7.45)
[2020-07-17 07:42] LABS: ARTERIAL BLOOD BASE EXCESS 0.7 mmol/L; ARTERIAL BLOOD H2CO3 1.23 mmol/L (1.05-1.35); ARTERIAL BLOOD HCO3 25.4 mmol/L (20-24); ARTERIAL BLOOD O2 SATURATION 96.6 % (94-98); ARTERIAL BLOOD PO2 85.9 mmHg (80-100); ARTERIAL BLOOD TOTAL CO2 26.7 mmol/L (23-27)
[2020-07-17 07:43] LABS: ARTERIAL BLOOD FIO2 35%
[2020-07-17 07:53] LABS: HEMATOCRIT 25.2 % (37.9-51.0); HEMOGLOBIN 8.2 g/dL (13.5-17.0); MEAN CORPUSCULAR HEMOGLOBIN 27.5 pg (27.0-33.4); MEAN CORPUSCULAR HGB CONC 32.4 g/dL (32.0-36.0); MEAN CORPUSCULAR VOLUME 85 fl (80-97); RED BLOOD COUNT 2.97 10^6/uL (4.35-5.55); RED CELL DISTRIBUTION WIDTH 19.5 % (11.5-14.0); WHITE BLOOD COUNT 16.4 10^3/uL (4.0-10.5)
--- NOTE | 2020-07-17 08:25 | RADIOLOGY REPORT (SQ) ---
EXAM DESCRIPTION: CHEST SINGLE VIEW IMAGES COMPLETED DATE/TIME: 07/17/2020 6:24 am REASON FOR STUDY: vent COMPARISON: 07/15/2020 FINDINGS: AP portable supine single view. Generally stable exam. Endotracheal and nasogastric tubes and bilateral central lines are appropriate on today's radiographs . No pneumothorax. Dense consolidation/ volume loss in the left base with bilateral small effusions as before. Mild vas cular congestion and hazy areas of edema bilaterally, also fairly stable. TECHNICAL DOCUMENTATION: JOB ID: [id number] Reading location - IP/workstation name: [email or web address]
[2020-07-17 08:33] LABS: PLATELET COUNT 93 10^3/uL (150-450)
[2020-07-17 08:35] LABS: ABSOLUTE LYMPHOCYTES# (MANUAL) 0.5 10^3/uL (0.5-4.7); ALBUMIN 2.2 g/dL (3.5-5.0); ALKALINE PHOSPHATASE 166 U/L (38-126); ANION GAP 6 (5-19); ASPARTATE AMINO TRANSFERASE 91 U/L (17-59); BASOPHILS % (MANUAL) 0 % (0-2); BILIRUBIN,DIRECT 0.4 mg/dL (0.0-0.4); BLOOD UREA NITROGEN 57 mg/dL (7-20); CALCIUM 7.5 mg/dL (8.4-10.2); CARBON DIOXIDE 26 mmol/L (22-30); CHLORIDE 98 mmol/L (98-107); EOSINOPHILS % (MANUAL) 0 % (0-6); GLUCOSE 108 mg/dL (75-110); LYMPHOCYTES % (MANUAL) 3 % (13-45); MONOCYTES % (MANUAL) 0 % (3-13); POTASSIUM 4.9 mmol/L (3.6-5.0); SEGMENTED NEUTROPHILS % (MAN) 97 % (42-78); TOTAL CELLS COUNTED 100; TOTAL PROTEIN 4.3 g/dL (6.3-8.2)
[2020-07-17 08:38] LABS: ANISOCYTOSIS 2+; OVALOCYTES SLIGHT; PLATELET COMMENT DECREASED
--- NOTE | 2020-07-17 10:21 | PDOC CRITICAL CARE PROG REPORT ---
General Date:: 07/17/20 ICU Day:: 9 Ventilator Day:: 9 Resuscitation Status: Full Code Events in the past 12 to 24 Hours:: Not able to make much progress on ventilator. Review of systems relevant to events:: Pulmonary, CV renal. Reason for ICU Addmission:: Post CPR resuscitation; endotracheally intubated, on HD. - Medications: Medications reviewed and adjusted accordingly: Yes Vasopressors:: None Sedation:: Precedex Physical Exam Vital Signs: Temp Pulse Resp BP Pulse Ox 97.7 F 80 8 L 89/62 L 98 07/17/20 08:04 07/16/20 20:00 07/17/20 08:04 07/17/20 08:04 07/17/20 08:04 Intake & Output 07/16/20 07/17/20 07/18/20 06:59 06:59 06:59 Intake Total 1060 1095 Output Total 1740 100 Balance -680 995 Weight 65.2 kg 67 kg Weight/Height Weight 67 kg Height 5 ft 4 in General appearance: PRESENT: no acute distress, thin Head exam: PRESENT: atraumatic, normocephalic Eye exam: PRESENT: conjunctiva pink, EOMI, PERRLA. ABSENT: scleral icterus Ear exam: PRESENT: normal external ear exam Mouth exam: PRESENT: moist, tongue midline Respiratory exam: PRESENT: crackles, decreased breath sounds, symmetrical, unlabored Cardiovascular exam: PRESENT: RRR. ABSENT: diastolic murmur, rubs, systolic murmur GI/Abdominal exam: PRESENT: distended, soft Rectal exam: PRESENT: deferred Gentrourinary exam: PRESENT: indwelling catheter Extremities exam: PRESENT: +2 edema Musculoskeletal exam: PRESENT: normal inspection Neurological exam: PRESENT: altered, other - Sedated Skin exam: PRESENT: skin tears - On both arms, vesicles Tubes/Lines: PRESENT: Endotracheal Tube, Dialysis catheter, Nasogastic Tube Laboratory/Radiographs Laboratory Results: 07/17/20 07:26 07/17/20 07:26 07/17/20 07/17/20 07/17/20 07:26 07:26 07:26 WBC 16.4 H RBC 2.97 L Hgb 8.2 L Hct 25.2 L MCV 85 MCH 27.5 MCHC 32.4 RDW 19.5 H Plt Count 93 L Seg Neutrophils % Not Reportable Carbonic Acid 1.23 HCO3/H2CO3 Ratio 20:1 ABG pH 7.41 ABG pCO2 41.0 ABG pO2 85.9 ABG HCO3 25.4 H ABG O2 Saturation 96.6 ABG Base Excess 0.7 FiO2 35% Sodium 130.0 L Potassium 4.9 Chloride 98 Carbon Dioxide 26 Anion Gap 6 BUN 57 H Creatinine 1.76 H Est GFR ( Amer) 48 L Glucose 108 Calcium 7.5 L Magnesium 2.3 Total Bilirubin 1.0 AST 91 H Alkaline Phosphatase 166 H Total Protein 4.3 L Albumin 2.2 L 06/07/20 06/07/20 06/07/20 12:24 12:24 15:08 Creatine Kinase 34 L CK-MB (CK-2) Troponin I 0.035 0.041 NT-Pro-B Natriuret Pep 06/07/20 06/07/20 06/08/20 16:45 22:01 05:25 Creatine Kinase 35 L 40 L 35 L CK-MB (CK-2) Troponin I NT-Pro-B Natriuret Pep 06/08/20 06/29/20 06/29/20 05:25 07:30 07:30 Creatine Kinase 27 L CK-MB (CK-2) 1.04 Troponin I 0.028 NT-Pro-B Natriuret Pep [id number] H 06/29/20 06/29/20 06/29/20 15:11 15:11 20:37 Creatine Kinase 39 L CK-MB (CK-2) 2.04 Troponin I 0.142 0.166 NT-Pro-B Natriuret Pep 06/30/20 07/08/20 07/08/20 05:00 14:20 14:20 Creatine Kinase 51 L CK-MB (CK-2) 1.95 Troponin I 0.119 0.105 NT-Pro-B Natriuret Pep 07/08/20 07/11/20 07/14/20 14:20 03:45 05:50 Creatine Kinase CK-MB (CK-2) Troponin I NT-Pro-B Natriuret Pep 91563 H 72189 H 8910 H Impressions: Head CT 06/07/20 13:02 IMPRESSION: Stable CT of the brain with bifrontal encephalomalacia. No acute intracranial event. EVIDENCE OF ACUTE STROKE: NO. Thoracentesis Ultrasound 06/08/20 00:00 IMPRESSION: SUCCESSFUL THORACENTESIS AND CHEST TUBE PLACEMENT USING ULTRASOUND GUIDANCE. Abdomen/Pelvis CT 06/17/20 00:00 IMPRESSION: 1. Small bowel obstruction with transition point in the left mid abdomen. This may be a high-grade partial obstruction. Distal small bowel and colon are decompressed. 2. Marked urinary bladder distention, suggestive of bladder outlet obstruction. Clinical correlation is recommended. 3. Loculated right hydropneumothorax and small left pleural effusion, not significantly changed. Compressive atelectasis at the lung bases. 4. Moderate ascites, slightly decreased from previous examination. 5. Mildly nodular contour of the liver, nonspecific however could indicate underlying hepatic cirrhosis. Clinical correlation is with recommended. 6. Diffuse subcutaneous edema, suggestive of fluid overload. 7. Colonic diverticulosis without evidence of diverticulitis. KUB X-Ray 06/22/20 00:00 IMPRESSION: Partial small bowel obstruction Chest CT 06/25/20 00:00 IMPRESSION: Loculated right hydropneumothorax which appears similar at the right lung base from the abdominal CT dated 06/17/2020. Slight interval increase in left pleural effusion. Moderate ascites with a similar nonspecific nodular hepatic contour and slight heterogeneous hepatic attenuation. Paracentesis Ultrasound 07/01/20 08:26 IMPRESSION: SUCCESSFUL ULTRASOUND GUIDED PARACENTESIS. All labs, radiographs, diagnostic studies and EKGs were personally reviewed: Yes In addition, reports of radiographic and diagnostic studies were read: Yes Assessment and Plan - Diagnosis (1) Acute hypoxemic respiratory failure due to COVID-19 Is this a current diagnosis for this admission?: Yes Plan: We will try weaning again Saturday. He is not able to at this time. (2) Atrial fibrillation Qualifiers: Atrial fibrillation type: persistent (not longstanding) Qualified Code(s): I48.19 - Other persistent atrial fibrillation; I48.1 - Persistent atrial fibrill ation Is this a current diagnosis for this admission?: Yes Plan: Paced (3) Acute decompensated heart failure Is this a current diagnosis for this admission?: Yes Plan: Inactive right now. (4) Dilated cardiomyopathy Is this a current diagnosis for this admission?: Yes Plan: BP relatively low because of this. As long as he is mentating will tolerated MAPs between 55-60. (5) Malnutrition Qualifiers: Malnutrition type: protein-calorie malnutrition Protein-calorie malnutrition severity: moderate Qualified Code(s): E44.0 - Moderate protein- calorie malnutrition Is this a current diagnosis for this admission?: Yes Plan: He may need to be back on TPN for nutrition. Will try low dose TF. (6) Mechanical heart valve present Is this a current diagnosis for this admission?: Yes Plan: Restart coumadin. (7) Shock Is this a current diagnosis for this admission?: Yes Plan: Resolved (8) Volume overload Qualifiers: Hypervolemia type: unspecified Qualified Code(s): E87.70 - Fluid overload, unspecified Is this a current diagnosis for this admission?: Yes Plan: Not active. (9) Decubital ulcer Qualifiers: Pressure injury location: sacral region Pressure injury stage: stage 1 Qualified Code(s): L89.151 - Pressure ulcer of sacral region, stage 1 Is this a current diagnosis for this admission?: Yes Plan: I've seen the decubitis and it is stage 1 skin intact. About 2cm. Plan Summary: Start low dose TF. Try weaning vent again. Critical Time Critical Time (minutes): 35 Level of Care: ICU Anticipated discharge: SNF Anticipated DC Timeframe: Other -: 1. The care of a critical patient is a dynamic process. This note is a compliance representative dealer synopsis but static in nature. The timeframe for treatments given in order is not necessarily the actual time these treatments may have been done. 2. This patient requires critical care secondary to ongoing requirements for therapy not offered or safe outside the critical care environment. Transfer to a lower level of care will result in altered life or limb morbidity and mortality. 3. Multidisciplinary rounds completed. 4. ABCDE bundle addressed.
[2020-07-17] MEDS: DOCUSATE SODIUM 100 MG CAPSULE PO SCH ×2 (10:24→18:19)
[2020-07-17] MEDS: BISACODYL 10 MG SUPP.RECT PR SCH (10:24)
[2020-07-17] MEDS: ASPIRIN 81 MG TABLET, CHEWABLE PO SCH (10:24)
[2020-07-17] MEDS: POLYETHYLENE GLYCOL 3350 POWDER 17 GM/1 PACKET PO SCH (10:25)
[2020-07-17] MEDS: MIDODRINE HCL 5 MG TABLET PO SCH ×3 (10:25→18:20)
[2020-07-17] MEDS: ZINC SULFATE 220 MG CAPSULE NG SCH (10:26)
[2020-07-17] MEDS: ASCORBIC ACID 500 MG TABLET NG SCH ×2 (10:26→18:20)
[2020-07-17] MEDS: DIGOXIN INJ 0.5 MG/2 ML AMPULE IV SCH (10:26)
[2020-07-17] MEDS: LIDOCAINE 5% (700 MG) TRANSDERMAL ADH..PATCH TP SCH (10:27)
[2020-07-17] MEDS: METOPROLOL TARTRATE 25 MG TABLET NG SCH ×2 (10:28→22:41)
[2020-07-17] MEDS: HEPARIN SOD (PORCINE) 1,000 UNIT/ML 10 ML VIAL IV PRN (22:40)
[2020-07-17] MEDS: ATORVASTATIN CALCIUM 40 MG TABLET NG SCH (22:41)
[2020-07-17] MEDS: MIRTAZAPINE 15 MG TABLET PO SCH (22:41)
[2020-07-17] MEDS: PHARMACY COMMUNICATION ORDER MC SCH (22:42)
[2020-07-17] MEDS: HEPARIN SODIUM,PORCINE/D5W 25,000 UNIT/250 ML RTUINJ IV PRN (22:43)
[2020-07-17] MEDS: DEXTROSE 5%-NORMAL SALINE 1,000 ML IV PRN (22:43)
[2020-07-18] MEDS: INSULIN REG, HUMAN 100 UNIT/ML 3 ML VIAL (PYX) SUBCUT SCH ×4 (00:01→17:38)
[2020-07-18] MEDS: DEXAMETHASONE SOD PHOSPHATE INJ 4 MG/1 ML VIAL IV SCH ×4 (00:01→18:24)
[2020-07-18] MEDS: DEXMEDETOMIDINE IN 0.9 % NACL 400 MCG/100 ML RTUPB IV PRN ×3 (00:06→23:13)
[2020-07-18] MEDS ORDERED: HEPARIN SOD (PORCINE) 1,000 UNIT/ML 10 ML VIAL IV PRN (05:00)
[2020-07-18 06:08] LABS: HEMATOCRIT 25.4 % (37.9-51.0); HEMOGLOBIN 8.4 g/dL (13.5-17.0); MEAN CORPUSCULAR HGB CONC 32.9 g/dL (32.0-36.0); MEAN CORPUSCULAR VOLUME 85 fl (80-97); RED BLOOD COUNT 2.99 10^6/uL (4.35-5.55); RED CELL DISTRIBUTION WIDTH 19.7 % (11.5-14.0); WHITE BLOOD COUNT 14.5 10^3/uL (4.0-10.5)
[2020-07-18 06:09] LABS: ARTERIAL BLOOD BASE EXCESS -0.6 mmol/L; ARTERIAL BLOOD H2CO3 1.16 mmol/L (1.05-1.35); ARTERIAL BLOOD HCO3 23.9 mmol/L (20-24); ARTERIAL BLOOD O2 SATURATION 97.9 % (94-98); ARTERIAL BLOOD PCO2 38.4 mmHg (35-45); ARTERIAL BLOOD PH 7.41 (7.35-7.45); ARTERIAL BLOOD PO2 106.1 mmHg (80-100); ARTERIAL BLOOD TOTAL CO2 25.1 mmol/L (23-27)
[2020-07-18 06:13] LABS: ARTERIAL BLOOD FIO2 35%
[2020-07-18 06:37] LABS: PLATELET COUNT 91 10^3/uL (150-450)
[2020-07-18 06:39] LABS: ABSOLUTE LYMPHOCYTES# (MANUAL) 0.3 10^3/uL (0.5-4.7); ABSOLUTE MONOCYTES # (MANUAL) 0.1 10^3/uL (0.1-1.4); BAND NEUTROPHILS % (MANUAL) 1 % (3-5); BASOPHILS % (MANUAL) 0 % (0-2); EOSINOPHILS % (MANUAL) 0 % (0-6); LYMPHOCYTES % (MANUAL) 2 % (13-45); MONOCYTES % (MANUAL) 1 % (3-13); SEGMENTED NEUTROPHILS % (MAN) 96 % (42-78); TOTAL CELLS COUNTED 100
[2020-07-18 06:40] LABS: ANISOCYTOSIS 2+; PLATELET COMMENT DECREASED; POLYCHROMASIA 1+
[2020-07-18 07:03] LABS: ANION GAP 7 (5-19); BLOOD UREA NITROGEN 66 mg/dL (7-20); CALCIUM 7.6 mg/dL (8.4-10.2); CARBON DIOXIDE 23 mmol/L (22-30); CHLORIDE 100 mmol/L (98-107); GLUCOSE 106 mg/dL (75-110); PHOSPHORUS 6.2 mg/dL (2.5-4.5); POTASSIUM 5.4 mmol/L (3.6-5.0)
--- NOTE | 2020-07-18 08:33 | RADIOLOGY REPORT (SQ) ---
EXAM DESCRIPTION: CHEST SINGLE VIEW IMAGES COMPLETED DATE/TIME: 07/18/2020 6:36 am REASON FOR STUDY: vent COMPARISON: 07/17/2020 EXAM PARAMETERS: NUMBER OF VIEWS: One view. TECHNIQUE: Single frontal radiographic view of the chest acquired. RADIATION DOSE: NA LIMITATIONS: None. FINDINGS: LUNGS AND PLEURA: Stable patchy bibasilar opacities and small bilateral effusions. No pne umothorax. MEDIASTINUM AND HILAR STRUCTURES: No masses. Contour normal. HEART AND VASCULAR STRUCTURES: Stable. BONES: Sternotomy changes. No acute findings. HARDWARE: Endotracheal 2 has been slightly advanced with tip 1.8 cm above the koko. Right internal jugular central venous catheter tip at cavoatrial junction. Left IJ tunneled hemodialysis catheter with tip at right atrium. Enteric tube tip overlies gastric body. Sternotomy hardware. Valvular pr ostheses. Loop recorder overlies left chest. OTHER: No other significant finding. IMPRESSION: Grossly stable patchy bibasilar opacities and small bilateral pleural effusions. Endotracheal tube tip overlies lower thoracic trachea, 1.8 cm above the koko. Additional lines and tubes as above. TECHNICAL DOCUMENTATION: JOB ID: [id number] 2010 [employer]- All Rights Reserved Reading location - IP/workstation name: [email or web address]
[2020-07-18] MEDS: POLYETHYLENE GLYCOL 3350 POWDER 17 GM/1 PACKET PO SCH (10:48)
[2020-07-18] MEDS: DIGOXIN INJ 0.5 MG/2 ML AMPULE IV SCH (10:49)
[2020-07-18] MEDS: MIDODRINE HCL 5 MG TABLET PO SCH ×3 (10:49→18:24)
[2020-07-18] MEDS: ASCORBIC ACID 500 MG TABLET NG SCH ×2 (10:50→18:24)
[2020-07-18] MEDS: DOCUSATE SODIUM 100 MG CAPSULE PO SCH ×2 (10:50→18:24)
[2020-07-18] MEDS: ASPIRIN 81 MG TABLET, CHEWABLE PO SCH (10:50)
[2020-07-18] MEDS: BISACODYL 10 MG SUPP.RECT PR SCH (10:50)
[2020-07-18] MEDS: ZINC SULFATE 220 MG CAPSULE NG SCH (10:50)
[2020-07-18] MEDS: METOPROLOL TARTRATE 25 MG TABLET NG SCH ×2 (10:51→21:20)
[2020-07-18] MEDS: LIDOCAINE 5% (700 MG) TRANSDERMAL ADH..PATCH TP SCH (10:51)
[2020-07-18] MEDS: FAT EMULSIONS 250 ML IV SCH (10:51)
--- NOTE | 2020-07-18 12:32 | PDOC CRITICAL CARE PROG REPORT ---
General Date:: 07/18/20 Resuscitation Status: Full Code Events in the past 12 to 24 Hours:: Not able to make much progress on ventilator. The patient has been in the hospital over 40 days. He was able to do a few hours on SBT this AM but than became tired and tachypneic and had to go back on a rate The patient is weak and debilitated. It appears that he will need trach and PEG. However, will needd to repat Covid test before moving forward. Patient getting dialyzed tiw. he has very bad scortotsl edema. His bowels are not moving and has apparently had a lot of difficulty with his tube feeds . We are getting flat and upright abodominal x ray. May have an element of gastroparesis. Reason for ICU Addmission:: Post CPR resuscitation; endotracheally intubated, on HD. Physical Exam Vital Signs: Temp Pulse Resp BP Pulse Ox 96.8 F L 80 10 L 93/64 L 100 07/18/20 10:05 07/18/20 08:00 07/18/20 10:05 07/18/20 10:05 07/18/20 11:03 Intake & Output 07/17/20 07/18/20 07/19/20 06:59 06:59 06:59 Intake Total 1095 1254 Output Total 100 950 20 Balance 995 304 -20 Weight 67 kg 69.2 kg Weight/Height Weight 69.2 kg Height 5 ft 4 in General appearance: PRESENT: no acute distress Head exam: PRESENT: atraumatic Eye exam: PRESENT: PERRLA Ear exam: PRESENT: normal external ear exam, TM's normal bilaterally Respiratory exam: PRESENT: accessory muscle use Pulses: PRESENT: normal dorsalis pedis pul GI/Abdominal exam: PRESENT: diminished bowel sounds Rectal exam: PRESENT: deferred Extremities exam: ABSENT: calf tenderness Musculoskeletal exam: ABSENT: ambulatory Neurological exam: PRESENT: alert Psychiatric exam: PRESENT: flat affect Laboratory/Radiographs Laboratory Results: 07/18/20 06:00 07/18/20 05:47 07/18/20 07/18/20 07/18/20 05:47 05:47 06:00 WBC 14.5 H RBC 2.99 L Hgb 8.4 L Hct 25.4 L MCV 85 MCH 28.0 MCHC 32.9 RDW 19.7 H Plt Count 91 L Seg Neutrophils % Not Reportable Carbonic Acid 1.16 HCO3/H2CO3 Ratio 20:1 ABG pH 7.41 ABG pCO2 38.4 ABG pO2 106.1 H ABG HCO3 23.9 ABG O2 Saturation 97.9 ABG Base Excess -0.6 FiO2 35% Sodium 129.6 L Potassium 5.4 H Chloride 100 Carbon Dioxide 23 Anion Gap 7 BUN 66 H Creatinine 2.04 H Est GFR ( Amer) 41 L Glucose 106 Calcium 7.6 L Phosphorus 6.2 H Magnesium 2.4 H 06/07/20 06/07/20 06/07/20 12:24 12:24 15:08 Creatine Kinase 34 L CK-MB (CK-2) Troponin I 0.035 0.041 NT-Pro-B Natriuret Pep 06/07/20 06/07/20 06/08/20 16:45 22:01 05:25 Creatine Kinase 35 L 40 L 35 L CK-MB (CK-2) Troponin I NT-Pro-B Natriuret Pep 06/08/20 06/29/20 06/29/20 05:25 07:30 07:30 Creatine Kinase 27 L CK-MB (CK-2) 1.04 Troponin I 0.028 NT-Pro-B Natriuret Pep [id number] H 06/29/20 06/29/20 06/29/20 15:11 15:11 20:37 Creatine Kinase 39 L CK-MB (CK-2) 2.04 Troponin I 0.142 0.166 NT-Pro-B Natriuret Pep 06/30/20 07/08/20 07/08/20 05:00 14:20 14:20 Creatine Kinase 51 L CK-MB (CK-2) 1.95 Troponin I 0.119 0.105 NT-Pro-B Natriuret Pep 07/08/20 07/11/20 07/14/20 14:20 03:45 05:50 Creatine Kinase CK-MB (CK-2) Troponin I NT-Pro-B Natriuret Pep 26950 H 27509 H 8910 H Impressions: Head CT 06/07/20 13:02 IMPRESSION: Stable CT of the brain with bifrontal encephalomalacia. No acute intracranial event. EVIDENCE OF ACUTE STROKE: NO. Thoracentesis Ultrasound 06/08/20 00:00 IMPRESSION: SUCCESSFUL THORACENTESIS AND CHEST TUBE PLACEMENT USING ULTRASOUND GUIDANCE. Abdomen/Pelvis CT 06/17/20 00:00 IMPRESSION: 1. Small bowel obstruction with transition point in the left mid abdomen. This may be a high-grade partial obstruction. Distal small bowel and colon are decompressed. 2. Marked urinary bladder distention, suggestive of bladder outlet obstruction. Clinical correlation is recommended. 3. Loculated right hydropneumothorax and small left pleural effusion, not significantly changed. Compressive atelectasis at the lung bases. 4. Moderate ascites, slightly decreased from previous examination. 5. Mildly nodular contour of the liver, nonspecific however could indicate underlying hepatic cirrhosis. Clinical correlation is with recommended. 6. Diffuse subcutaneous edema, suggestive of fluid overload. 7. Colonic diverticulosis without evidence of diverticulitis. KUB X-Ray 06/22/20 00:00 IMPRESSION: Partial small bowel obstruction Chest CT 06/25/20 00:00 IMPRESSION: Loculated right hydropneumothorax which appears similar at the right lung base from the abdominal CT dated 06/17/2020. Slight interval increase in left pleural effusion. Moderate ascites with a similar nonspecific nodular hepatic contour and slight heterogeneous hepatic attenuation. Paracentesis Ultrasound 07/01/20 08:26 IMPRESSION: SUCCESSFUL ULTRASOUND GUIDED PARACENTESIS. Chest X-Ray 07/18/20 05:00 IMPRESSION: Grossly stable patchy bibasilar opacities and small bilateral pleural effusions. Endotracheal tube tip overlies lower thoracic trachea, 1.8 cm above the koko. Additional lines and tubes as above. All labs, radiographs, diagnostic studies and EKGs were personally reviewed: Yes In addition, reports of radiographic and diagnostic studies were read: Yes Assessment and Plan - Diagnosis (1) Acute hypoxemic respiratory failure due to COVID-19 Is this a current diagnosis for this admission?: Yes Plan: We will try weaning again Saturday. He is not able to at this time. Aas noted the patient did wean or a few hours this AM but than lambert castroyp[neic and was using accessory resp. mm. I beleieve in the [employer] or [employer] principal he may be suited for a trach and PEG at this time. However, need to recheck his Covid status. (2) Acute systolic heart failure Is this a current diagnosis for this admission?: Yes (3) Atrial fibrillation Qualifiers: Atrial fibrillation type: persistent (not longstanding) Qualified Code(s): I48.19 - Other persistent atrial fibrillation; I48.1 - Persistent atrial fibrillation Is this a current diagnosis for this admission?: Yes Plan: Paced The patient has been on Metoprolol for hR control but it has recently been stopped for heart rate <90 given hispersistent hypotension. The patient is on diugoxin as well. (4) COPD (chronic obstructive pulmonary disease) Qualifiers: COPD type: unspecified COPD Qualified Code(s): J44.9 - Chronic obstructive pulmonary disease, unspecified Is this a current diagnosis for this admission?: Yes Plan: There are multiple reasons for difficult weanijng. Amongst these are thepatient's pooor cardiovascualr statuis , his COPD and poor nutriotional status. CXR shows stable bibasilar pulmonary densities. (5) Protein-energy malnutrition Qualifiers: Protein-calorie malnutrition severity: mild Qualified Code(s): E44.1 - Mild protein-calorie malnutrition Is this a current diagnosis for this admission?: Yes Plan: The patient is malnourished in the wake of his prolonged hospitalization. We have had to hold his feedings beciuse of vomiting and high residuals lately. Will be imaging abdomen . Considere adding reglan to regimen as well. (6) CKD (chronic kidney disease) requiring chronic dialysis Is this a current diagnosis for this admission?: Yes Plan: The patient continues with doiaysis tiw. (7) Hypotension Qualifiers: Hypotension type: idiopathic hypotension Qualified Code(s): I95.0 - Idiopathic hypotension Is this a current diagnosis for this admission?: Yes Plan: Has been fairly consistently hypotensive. The patient was placed on Midodrine. Weare holding his metoprolol at this time as well., Critical Time Critical Time (minutes): 35 Level of Care: ICU -: 1. The care of a critical patient is a dynamic process. This note is a area representative synopsis but static in nature. The timeframe for treatments given in order is not necessarily the actual time these treatments may have been done. 2. This patient requires critical care secondary to ongoing requirements for t herapy not offered or safe outside the critical care environment. Transfer to a lower level of care will result in altered life or limb morbidity and mortality. 3. Multidisciplinary rounds completed. 4. ABCDE bundle addressed.
--- NOTE | 2020-07-18 12:45 | PDOC PROGRESS REPORT ---
Subjective Progress Note for:: 07/18/20 Reason For Visit: Patient seen today on dialysis in the ICU. He remains intubated but not sedated. Blood pressures continues to be tenuous. Very poor urine output. Difficulty in weaning off the respirator. Labs and medications were reviewed. Dialysis orders were reviewed with the treating dialysis nurse Physical Exam Vital Signs: Temp Pulse Resp BP Pulse Ox 96.8 F L 80 10 L 93/64 L 100 07/18/20 10:05 07/18/20 08:00 07/18/20 10:05 07/18/20 10:05 07/18/20 11:03 Intake & Output 07/17/20 07/18/20 07/19/20 06:59 06:59 06:59 Intake Total 1095 1254 Output Total 100 950 20 Balance 995 304 -20 Weight 67 kg 69.2 kg Exam: Remains intubated but not sedated as patient is awake. Patient does not seem in any distress and not fighting his vent. Respiratory exam: PRESENT: clear to auscultation [place]. ABSENT: crackles Cardiovascular exam: PRESENT: +S1, +S2 GI/Abdominal exam: PRESENT: ascites, distended Extremities exam: PRESENT: pedal edema Results Laboratory Results: 07/18/20 06:00 07/18/20 05:47 07/18/20 07/18/20 07/18/20 05:47 05:47 06:00 WBC 14.5 H RBC 2.99 L Hgb 8.4 L Hct 25.4 L MCV 85 MCH 28.0 MCHC 32.9 RDW 19.7 H Plt Count 91 L Seg Neutrophils % Not Reportable Carbonic Acid 1.16 HCO3/H2CO3 Ratio 20:1 ABG pH 7.41 ABG pCO2 38.4 ABG pO2 106.1 H ABG HCO3 23.9 ABG O2 Saturation 97.9 ABG Base Excess -0.6 FiO2 35% Sodium 129.6 L Potassium 5.4 H Chloride 100 Carbon Dioxide 23 Anion Gap 7 BUN 66 H Creatinine 2.04 H Est GFR ( Amer) 41 L Glucose 106 Calcium 7.6 L Phosphorus 6.2 H Magnesium 2.4 H 06/07/20 06/07/20 06/07/20 12:24 12:24 15:08 Creatine Kinase 34 L CK-MB (CK-2) Troponin I 0.035 0.041 NT-Pro-B Natriuret Pep 06/07/20 06/07/20 06/08/20 16:45 22:01 05:25 Creatine Kinase 35 L 40 L 35 L CK-MB (CK-2) Troponin I NT-Pro-B Natriuret Pep 06/08/20 06/29/20 06/29/20 05:25 07:30 07:30 Creatine Kinase 27 L CK-MB (CK-2) 1.04 Troponin I 0.028 NT-Pro-B Natriuret Pep 20007 H 06/29/20 06/29/20 06/29/20 15:11 15:11 20:37 Creatine Kinase 39 L CK-MB (CK-2) 2.04 Troponin I 0.142 0.166 NT-Pro-B Natriuret Pep 06/30/20 07/08/20 07/08/20 05:00 14:20 14:20 Creatine Kinase 51 L CK-MB (CK-2) 1.95 Troponin I 0.119 0.105 NT-Pro-B Natriuret Pep 07/08/20 07/11/20 07/14/20 14:20 03:45 05:50 Creatine Kinase CK-MB (CK-2) Troponin I NT-Pro-B Natriuret Pep 25986 H 09335 H 8910 H Impressions: Head CT 06/07/20 13:02 IMPRESSION: Stable CT of the brain with bifrontal encephalomalacia. No acute intracranial event. EVIDENCE OF ACUTE STROKE: NO. Thoracentesis Ultrasound 06/08/20 00:00 IMPRESSION: SUCCESSFUL THORACENTESIS AND CHEST TUBE PLACEMENT USING ULTRASOUND GUIDANCE. Abdomen/Pelvis CT 06/17/20 00:00 IMPRESSION: 1. Small bowel obstruction with transition point in the left mid abdomen. This may be a high-grade partial obstruction. Distal small bowel and colon are decompressed. 2. Marked urinary bladder distention, suggestive of bladder outlet obstruction. Clinical correlation is recommended. 3. Loculated right hydropneumothorax and small left pleural effusion, not significantly changed. Compressive atelectasis at the lung bases. 4. Moderate ascites, slightly decreased from previous examination. 5. Mildly nodular contour of the liver, nonspecific however could indicate underlying hepatic cirrhosis. Clinical correlation is with recommended. 6. Diffuse subcutaneous edema, suggestive of fluid overload. 7. Colonic diverticulosis without evidence of diverticulitis. KUB X-Ray 06/22/20 00:00 IMPRESSION: Partial small bowel obstruction Chest CT 06/25/20 00:00 IMPRESSION: Loculated right hydropneumothorax which appears similar at the right lung base from the abdominal CT dated 06/17/2020. Slight interval increase in left pleural effusion. Moderate ascites with a similar nonspecific nodular hepatic contour and slight heterogeneous hepatic attenuation. Paracentesis Ultrasound 07/01/20 08:26 IMPRESSION: SUCCESSFUL ULTRASOUND GUIDED PARACENTESIS. Chest X-Ray 07/18/20 05:00 IMPRESSION: Grossly stable patchy bibasilar opacities and small bilateral pleural effusions. Endotracheal tube tip overlies lower thoracic trachea, 1.8 cm above the koko. Additional lines and tubes as above. Assessment & Plan - Diagnosis (1) Acute hypoxemic respiratory failure due to COVID-19 Is this a current diagnosis for this admission?: Yes Plan: Currently intubated. (2) ESRD (end stage renal disease) on dialysis Is this a current diagnosis for this admission?: Yes Plan: Patient currently undergoing dialysis through an IJ PermCath. Plan to remove 1-2 L as tolerated.However it is going need to be difficult given his tenuous blood pressure . Dialysis orders were reviewed with treating dialysis nurse.. (3) Ascites Qualifiers: Ascites type: due to alcoholic cirrhosis Qualified Code(s): K70.31 - Alcoholic cirrhosis of liver with ascites Is this a current diagnosis for this admission?: Yes Plan: Monitor for the need of paracentesis. (4) Atrial fibrillation Qualifiers: Atrial fibrillation type: persistent (not longstanding) Qualified Code(s): I48.19 - Other persistent atrial fibrillation; I48.1 - Persistent atrial fibrillation Is this a current diagnosis for this admission?: Yes Plan: Rate controlled stable. (5) CHF (congestive heart failure) Qualifiers: Heart failure type: combined systolic and diastolic Heart failure chronicity: chronic Qualified Code(s): I50.42 - Chronic combined systolic (congestive) and diastolic (congestive) heart failure Is this a current diagnosis for this admission?: Yes Plan: Status quo. Background of dilated cardiomyopathy being managed by hospitalist and cardiology. (6) Ventricular tachyarrhythmia Is this a current diagnosis for this admission?: Yes Plan: Status post cardioversion and stable. (7) Bilateral pleural effusion Plan: Has had thoracentesis followed by right chest tube placement which has now been removed. He has now undergone pleurodesis. (8) Hypotension Qualifiers: Hypotension type: idiopathic hypotension Qualified Code(s): I95.0 - Idiopathic hypotension Is this a current diagnosis for this admission?: Yes Plan: Patient on Midodrin but blood pressure still tenuous. Monitor. (9) Hyponatremia Is this a current diagnosis for this admission?: Yes Plan: Dilutional. See response to some fluid removal. Monitor. (10) Acute decompensated heart failure Is this a current diagnosis for this admission?: Yes Plan: In the background of covid pneumonia/dilated cardiomyopathy. (11) Dilated cardiomyopathy Is this a current diagnosis for this admission?: Yes Plan: /Congestive heart failure. Being managed by hospitalist/cardiology. (12) Protein-energy malnutrition Qualifiers: Protein-calorie malnutrition severity: mild Qualified Code(s): E44.1 - Mild protein-calorie malnutrition Is this a current diagnosis for this admission?: Yes Plan: Adding to third spacing. Trial of albumin infusions/TPN. (13) Anemia Plan: Multifactorial including anemia of chronic kidney disease. However currently I am holding off on erythropoietin given the thrombogenicity of his COVID status.
[2020-07-18] MEDS ORDERED: METOCLOPRAMIDE HCL 10 MG TABLET PO SCH (19:30)
[2020-07-18] MEDS ORDERED: ACETAMINOPHEN 325 MG TABLET NG PRN (21:00)
[2020-07-18] MEDS ORDERED: MAG HYDROX/AL HYDROX/SIMETH SUSP 30 ML UDCUP NG PRN (21:00)
[2020-07-18] MEDS: MIRTAZAPINE 15 MG TABLET NG SCH (21:12)
[2020-07-18] MEDS: ATORVASTATIN CALCIUM 40 MG TABLET NG SCH (21:12)
[2020-07-18] MEDS: PHARMACY COMMUNICATION ORDER MC SCH (21:22)
[2020-07-19] MEDS: DEXTROSE 5%-NORMAL SALINE 1,000 ML IV PRN (00:35)
[2020-07-19] MEDS: INSULIN REG, HUMAN 100 UNIT/ML 3 ML VIAL (PYX) SUBCUT SCH ×4 (00:41→18:22)
[2020-07-19] MEDS: DEXAMETHASONE SOD PHOSPHATE INJ 4 MG/1 ML VIAL IV SCH ×2 (01:06→05:14)
[2020-07-19 05:45] LABS: HEMATOCRIT 25.2 % (37.9-51.0); HEMOGLOBIN 8.3 g/dL (13.5-17.0); MEAN CORPUSCULAR HEMOGLOBIN 27.6 pg (27.0-33.4); MEAN CORPUSCULAR HGB CONC 32.9 g/dL (32.0-36.0); MEAN CORPUSCULAR VOLUME 84 fl (80-97); RED BLOOD COUNT 3.01 10^6/uL (4.35-5.55); RED CELL DISTRIBUTION WIDTH 20.1 % (11.5-14.0); WHITE BLOOD COUNT 14.7 10^3/uL (4.0-10.5)
[2020-07-19 05:52] LABS: ARTERIAL BLOOD BASE EXCESS 0.2 mmol/L; ARTERIAL BLOOD FIO2 35%; ARTERIAL BLOOD HCO3 24.2 mmol/L (20-24); ARTERIAL BLOOD O2 SATURATION 97.5 % (94-98); ARTERIAL BLOOD PCO2 36.7 mmHg (35-45); ARTERIAL BLOOD PH 7.44 (7.35-7.45); ARTERIAL BLOOD PO2 94.9 mmHg (80-100); ARTERIAL BLOOD TOTAL CO2 25.3 mmol/L (23-27)
[2020-07-19 06:28] LABS: PLATELET COUNT 81 10^3/uL (150-450)
[2020-07-19 06:30] LABS: ABSOLUTE LYMPHOCYTES# (MANUAL) 0.1 10^3/uL (0.5-4.7); ABSOLUTE MONOCYTES # (MANUAL) 0.3 10^3/uL (0.1-1.4); ANISOCYTOSIS 2+; BASOPHILS % (MANUAL) 0 % (0-2); BURR CELLS SLIGHT; EOSINOPHILS % (MANUAL) 0 % (0-6); LYMPHOCYTES % (MANUAL) 1 % (13-45); MONOCYTES % (MANUAL) 2 % (3-13); PLATELET COMMENT DECREASED; POIKILOCYTOSIS 1+; POLYCHROMASIA SLIGHT; SEGMENTED NEUTROPHILS % (MAN) 97 % (42-78); TOTAL CELLS COUNTED 100
[2020-07-19] MEDS: FENTANYL CITRATE INJ/PF 100 MCG/2 ML AMPUL IV PRN ×4 (06:42→22:04)
[2020-07-19] MEDS: BISACODYL 10 MG SUPP.RECT PR SCH (09:55)
[2020-07-19] MEDS: DOCUSATE SODIUM 100 MG/10 ML UDC NG SCH ×2 (09:55→18:21)
[2020-07-19] MEDS: ZINC SULFATE 220 MG CAPSULE NG SCH (09:55)
[2020-07-19] MEDS: HYDROCORTISONE SOD SUCCINATE INJ/PF 100 MG/2 ML SDV IV SCH ×2 (09:55→22:02)
[2020-07-19] MEDS: DIGOXIN INJ 0.5 MG/2 ML AMPULE IV SCH (09:56)
[2020-07-19] MEDS: MIDODRINE HCL 5 MG TABLET NG SCH ×3 (09:56→18:22)
[2020-07-19] MEDS: LIDOCAINE 5% (700 MG) TRANSDERMAL ADH..PATCH TP SCH (09:57)
[2020-07-19] MEDS: ASCORBIC ACID 500 MG TABLET NG SCH ×2 (09:57→18:22)
[2020-07-19] MEDS: METOPROLOL TARTRATE 25 MG TABLET NG SCH ×2 (09:57→22:03)
[2020-07-19] MEDS: METOCLOPRAMIDE HCL 10 MG TABLET NG SCH ×3 (09:57→18:22)
[2020-07-19] MEDS: ASPIRIN 81 MG TABLET, CHEWABLE NG SCH (09:58)
[2020-07-19] MEDS ORDERED: POLYETHYLENE GLYCOL 3350 POWDER 17 GM/1 PACKET NG SCH (10:00)
[2020-07-19] MEDS: DEXMEDETOMIDINE IN 0.9 % NACL 400 MCG/100 ML RTUPB IV PRN ×2 (11:19→23:08)
[2020-07-19] MEDS ORDERED: FAMOTIDINE 20 MG TABLET NG SCH (12:00)
[2020-07-19] MEDS: APIXABAN 2.5 MG TABLET PO SCH ×2 (12:39→18:21)
[2020-07-19] MEDS ORDERED: DILTIAZEM HCL INJ 25 MG/5 ML VIAL ONE (17:40)
[2020-07-19] MEDS: DILTIAZEM HCL/D5W 125 MG/125 ML RTUINJ IV PRN (17:50)
[2020-07-19] MEDS: DILTIAZEM HCL/D5W 125 MG/125 ML RTUINJ IV ONE ×2 (17:50→20:13)
--- NOTE | 2020-07-19 18:01 | PDOC CRITICAL CARE PROG REPORT ---
General Date:: 07/19/20 Resuscitation Status: Full Code Events in the past 12 to 24 Hours:: Not able to make much progress on ventilator. The patient has been in the hospital over 40 days. He was able to do a few hours on SBT this AM but than became tired and tachypneic and had to go back on a rate The patient is weak and debilitated. It appears that he will need trach and PEG. However, will need to repeat Covid test before moving forward. Patient getting dialyzed tiw. he has very bad scrotal edema. His bowels are not moving and has apparently had a lot of difficulty with his tube feeds . We are getting flat and upright abdominal x ray. May have an element of gastroparesis. 07/19 The patient remains on the ventilator As noted he did do an SBT yesterday. We repeated his Covid test and it remains positive. It is unlikely we can get a surgeon to trach him while he is still Covid +. His bp is steady. he did have a bvrief episode df bradycardia earlier for reaosns unclear. We tried to interrogate the pacer but were unable perhops because it is a newer model. We have restarted tube feeds and started reglan for a possible motility issue.His potassium was borderlien low so he is getting replacement. 07/19 5:45PM the patient developed a sudden onset of a tachyarrhythmia. It was hard to discern whether supraventricular vs. ventricular. The patient had a heart rate in the 200 range . On closer examination there appeared to be deep ST depressions with flutter of P waves buried within. art a certain point the rhythm became quite irregular suggesting fib -flutter at 140-160. The poatient was given Cardizem 10 mg with reversion to a sinus tach alternating with a paced rhythm. The patient will be placed on a crdizem drip for now. Has maintained his bp throughout these severtal minutes. Reason for ICU Addmission:: Post CPR resuscitation; endotracheally intubated, on HD. Physical Exam Vital Signs: Temp Pulse Resp BP Pulse Ox 98.8 F 120 H 19 139/96 H 97 07/19/20 16:40 07/19/20 16:00 07/19/20 16:40 07/19/20 16:40 07/19/20 17:44 Intake & Output 07/18/20 07/19/20 07/20/20 06:59 06:59 06:59 Intake Total 1254 1508 135 Output Total 950 1105 Balance 304 403 135 Weight 69.2 kg 69.2 kg Weight/Height Weight 69.2 kg Height 5 ft 4 in Laboratory/Radiographs Laboratory Results: 07/19/20 05:08 07/18/20 05:47 07/19/20 07/19/20 05:08 05:08 WBC 14.7 H RBC 3.01 L Hgb 8.3 L Hct 25.2 L MCV 84 MCH 27.6 MCHC 32.9 RDW 20.1 H Plt Count 81 L Seg Neutrophils % Not Reportable Carbonic Acid 1.10 HCO3/H2CO3 Ratio 22:1 ABG pH 7.44 ABG pCO2 36.7 ABG pO2 94.9 ABG HCO3 24.2 H ABG O2 Saturation 97.5 ABG Base Excess 0.2 FiO2 35% 06/07/20 06/07/20 06/07/20 12:24 12:24 15:08 Creatine Kinase 34 L CK-MB (CK-2) Troponin I 0.035 0.041 NT-Pro-B Natriuret Pep 06/07/20 06/07/20 06/08/20 16:45 22:01 05:25 Creatine Kinase 35 L 40 L 35 L CK-MB (CK-2) Troponin I NT-Pro-B Natriuret Pep 06/08/20 06/29/20 06/29/20 05:25 07:30 07:30 Creatine Kinase 27 L CK-MB (CK-2) 1.04 Troponin I 0.028 NT-Pro-B Natriuret Pep 27296 H 06/29/20 06/29/20 06/29/20 15:11 15:11 20:37 Creatine Kinase 39 L CK-MB (CK-2) 2.04 Troponin I 0.142 0.166 NT-Pro-B Natriuret Pep 06/30/20 07/08/20 07/08/20 05:00 14:20 14:20 Creatine Kinase 51 L CK-MB (CK-2) 1.95 Troponin I 0.119 0.105 NT-Pro-B Natriuret Pep 07/08/20 07/11/20 07/14/20 14:20 03:45 05:50 Creatine Kinase CK-MB (CK-2) Troponin I NT-Pro-B Natriuret Pep 56045 H 42875 H 8910 H Impressions: Head CT 06/07/20 13:02 IMPRESSION: Stable CT of the brain with bifrontal encephalomalacia. No acute intracranial event. EVIDENCE OF ACUTE STROKE: NO. Thoracentesis Ultrasound 06/08/20 00:00 IMPRESSION: SUCCESSFUL THORACENTESIS AND CHEST TUBE PLACEMENT USING ULTRASOUND GUIDANCE. Abdomen/Pelvis CT 06/17/20 00:00 IMPRESSION: 1. Small bowel obstruction with transition point in the left mid abdomen. This may be a high-grade partial obstruction. Distal small bowel and colon are decompressed. 2. Marked urinary bladder distention, suggestive of bladder outlet obstruction. Clinical correlation is recommended. 3. Loculated right hydropneumothorax and small left pleural effusion, not significantly changed. Compressive atelectasis at the lung bases. 4. Moderate ascites, slightly decreased from previous examination. 5. Mildly nodular contour of the liver, nonspecific however could indicate underlying hepatic cirrhosis. Clinical correlation is with recommended. 6. Diffuse subcutaneous edema, suggestive of fluid overload. 7. Colonic diverticulosis without evidence of diverticulitis. KUB X-Ray 06/22/20 00:00 IMPRESSION: Partial small bowel obstruction Chest CT 06/25/20 00:00 IMPRESSION: Loculated right hydropneumothorax which appears similar at the right lung base from the abdominal CT dated 06/17/2020. Slight interval increase in left pleural effusion. Moderate ascites with a similar nonspecific nodular hepatic contour and slight heterogeneous hepatic attenuation. Paracentesis Ultrasound 07/01/20 08:26 IMPRESSION: SUCCESSFUL ULTRASOUND GUIDED PARACENTESIS. Chest X-Ray 07/18/20 05:00 IMPRESSION: Grossly stable patchy bibasilar opacities and small bilateral pleural effusions. Endotracheal tube tip overlies lower thoracic trachea, 1.8 cm above the koko. Additional lines and tubes as above. Assessment and Plan - Diagnosis (1) Acute hypoxemic respiratory failure due to COVID-19 Is this a current diagnosis for this admission?: Yes (2) Acute systolic heart failure Is this a current diagnosis for this admission?: Yes (3) Atrial fibrillation Qualifiers: Atrial fibrillation type: persistent (not longstanding) Qualified Code(s): I48.19 - Other persistent atrial fibrillation; I48.1 - Persistent atrial fibrillation Is this a current diagnosis for this admission?: Yes (4) COPD (chronic obstructive pulmonary disease) Qualifiers: COPD type: unspecified COPD Qualified Code(s): J44.9 - Chronic obstructive pulmonary disease, unspecified Is this a current diagnosis for this admission?: Yes (5) Protein-energy malnutrition Qualifiers: Protein-calorie malnutrition severity: mild Qualified Code(s): E44.1 - Mild protein-calorie malnutrition Is this a current diagnosis for this admission?: Yes (6) CKD (chronic kidney disease) requiring chronic dialysis Is this a current diagnosis for this admission?: Yes (7) Hypotension Qualifiers: Hypotension type: idiopathic hypotension Qualified Code(s): I95.0 - Idiopathic hypotension Is this a current diagnosis for this admission?: Yes Critical Time Critical Time (minutes): 15 Level of Care: ICU -: 1. The care of a critical patient is a dynamic process. This note is a employee relations representative synopsis but static in nature. The timeframe for treatments given in order is not necessarily the actual time these treatments may have been done. 2. This patient requires critical care secondary to ongoing requirements for therapy not offered or safe outside the critical care environment. Transfer to a lower level of care will result in altered life or limb morbidity and mortality. 3. Multidisciplinary rounds completed. 4. ABCDE bundle addressed.
[2020-07-19 18:19] LABS: HEMATOCRIT 28.6 % (37.9-51.0); HEMOGLOBIN 9.2 g/dL (13.5-17.0); MEAN CORPUSCULAR HEMOGLOBIN 27.3 pg (27.0-33.4); MEAN CORPUSCULAR VOLUME 85 fl (80-97); PLATELET COUNT 127 10^3/uL (150-450); RED BLOOD COUNT 3.35 10^6/uL (4.35-5.55); WHITE BLOOD COUNT 27.6 10^3/uL (4.0-10.5)
[2020-07-19] MEDS ORDERED: PANTOPRAZOLE SODIUM 80 MG in NORMAL SALINE 100 ML IV ONE ×2 (19:06→21:00)
[2020-07-19] MEDS ORDERED: PANTOPRAZOLE SODIUM 40 MG VIAL IV ONE (20:30)
[2020-07-19] MEDS: NORMAL SALINE 100 ML with PANTOPRAZOLE SODIUM 80 MG IV PRN ×2 (22:02)
[2020-07-19] MEDS: MIRTAZAPINE 15 MG TABLET NG SCH (22:02)
[2020-07-19] MEDS: ATORVASTATIN CALCIUM 40 MG TABLET NG SCH (22:03)
[2020-07-19] MEDS: ONDANSETRON HCL INJ/PF 4 MG/2 ML SDV IV PRN (22:04)
[2020-07-19] MEDS: PHARMACY COMMUNICATION ORDER MC SCH (22:05)
[2020-07-20] MEDS: INSULIN REG, HUMAN 100 UNIT/ML 3 ML VIAL (PYX) SUBCUT SCH ×5 (00:14→23:58)
[2020-07-20] MEDS: NORMAL SALINE 100 ML with PANTOPRAZOLE SODIUM 80 MG IV PRN ×6 (01:35→23:54)
[2020-07-20] MEDS: DEXTROSE 5%-NORMAL SALINE 1,000 ML IV PRN (01:35)
[2020-07-20] MEDS: FENTANYL CITRATE INJ/PF 100 MCG/2 ML AMPUL IV PRN (04:58)
[2020-07-20] MEDS ORDERED: HEPARIN SOD (PORCINE) 1,000 UNIT/ML 10 ML VIAL IV PRN (05:00)
[2020-07-20] MEDS ORDERED: EPOETIN ALFA-EPBX 20,000 UNIT in SYRINGE, DISPOSABLE, 1 EACH IV PRN (05:00)
[2020-07-20 05:38] LABS: ARTERIAL BLOOD BASE EXCESS -2.3 mmol/L; ARTERIAL BLOOD H2CO3 1.06 mmol/L (1.05-1.35); ARTERIAL BLOOD O2 SATURATION 91.4 % (94-98); ARTERIAL BLOOD PCO2 35.1 mmHg (35-45); ARTERIAL BLOOD PH 7.41 (7.35-7.45); ARTERIAL BLOOD PO2 59.6 mmHg (80-100)
[2020-07-20 05:39] LABS: ARTERIAL BLOOD FIO2 35%
[2020-07-20 06:01] LABS: ALBUMIN 1.8 g/dL (3.5-5.0); ALKALINE PHOSPHATASE 173 U/L (38-126); ANION GAP 6 (5-19); ASPARTATE AMINO TRANSFERASE 244 U/L (17-59); BILIRUBIN,DIRECT 0.7 mg/dL (0.0-0.4); BLOOD UREA NITROGEN 59 mg/dL (7-20); CARBON DIOXIDE 24 mmol/L (22-30); CHLORIDE 101 mmol/L (98-107); GLUCOSE 113 mg/dL (75-110); POTASSIUM 5.2 mmol/L (3.6-5.0); TOTAL PROTEIN 3.7 g/dL (6.3-8.2)
[2020-07-20 06:11] LABS: CALCIUM 6.8 mg/dL (8.4-10.2)
[2020-07-20] MEDS: DILTIAZEM HCL/D5W 125 MG/125 ML RTUINJ IV PRN (06:38)
[2020-07-20] MEDS: MIDODRINE HCL 5 MG TABLET NG SCH ×3 (07:15→18:54)
[2020-07-20 08:06] LABS: HEMATOCRIT 20.8 % (37.9-51.0); MEAN CORPUSCULAR HEMOGLOBIN 27.2 pg (27.0-33.4); MEAN CORPUSCULAR HGB CONC 31.8 g/dL (32.0-36.0); MEAN CORPUSCULAR VOLUME 86 fl (80-97); RED BLOOD COUNT 2.42 10^6/uL (4.35-5.55); RED CELL DISTRIBUTION WIDTH 20.6 % (11.5-14.0); WHITE BLOOD COUNT 19.3 10^3/uL (4.0-10.5)
[2020-07-20 08:39] LABS: HEMOGLOBIN 6.6 g/dL (13.5-17.0); PLATELET COUNT 70 10^3/uL (150-450)
[2020-07-20 08:41] LABS: ABSOLUTE MONOCYTES # (MANUAL) 0.4 10^3/uL (0.1-1.4); BASOPHILS % (MANUAL) 0 % (0-2); EOSINOPHILS % (MANUAL) 0 % (0-6); LYMPHOCYTES % (MANUAL) 0 % (13-45); MONOCYTES % (MANUAL) 2 % (3-13); SEGMENTED NEUTROPHILS % (MAN) 98 % (42-78); TOTAL CELLS COUNTED 100
[2020-07-20 08:46] LABS: OVALOCYTES SLIGHT; POIKILOCYTOSIS SLIGHT
[2020-07-20 08:47] LABS: ANISOCYTOSIS 2+; PLATELET COMMENT DECREASED
--- NOTE | 2020-07-20 10:58 | PDOC PROGRESS REPORT ---
Subjective Progress Note for:: 07/20/20 Reason For Visit: Patient seen in the ICU today. He remains intubated and sedated. Patient currently undergoing dialysis. Discussions were done with the treating nurse as well as store facility technician. Patient went into a tachyarrhythmia yesterday and was converted/slowdown with IV Cardizem. Blood pressures continues to remain tenuous. Patient looks extremely moribund. Labs and medications were reviewed. Dialysis orders were reviewed with the treating dialysis nurse. Physical Exam Vital Signs: Temp Pulse Resp BP Pulse Ox 98.1 F 82 11 L 99/66 L 100 07/20/20 08:00 07/20/20 10:00 07/20/20 10:00 07/20/20 10:00 07/20/20 10:00 Intake & Output 07/19/20 07/20/20 07/21/20 06:59 06:59 06:59 Intake Total 1508 1329 Output Total 1105 65 1640 Balance 403 1264 -1640 Weight 69.2 kg 68.9 kg General appearance: PRESENT: disheveled Exam: Looks very moribund and critical. Respiratory exam: PRESENT: clear to auscultation monroe. ABSENT: crackles Cardiovascular exam: PRESENT: +S1, +S2 GI/Abdominal exam: PRESENT: ascites, distended Extremities exam: PRESENT: pedal edema Results Laboratory Results: 07/20/20 07:28 07/20/20 05:20 07/19/20 07/20/20 07/20/20 17:55 05:20 05:20 WBC 27.6 H Cancelled RBC 3.35 L Cancelled Hgb 9.2 L Cancelled Hct 28.6 L Cancelled MCV 85 Cancelled MCH 27.3 Cancelled MCHC 32.0 Cancelled RDW 21.0 H Cancelled Plt Count 127 L Cancelled Seg Neutrophils % Cancelled Carbonic Acid 1.06 HCO3/H2CO3 Ratio 20:1 ABG pH 7.41 ABG pCO2 35.1 ABG pO2 59.6 L ABG HCO3 22.0 ABG O2 Saturation 91.4 L ABG Base Excess -2.3 FiO2 35% Sodium Potassium Chloride Carbon Dioxide Anion Gap BUN Creatinine Est GFR ( Amer) Glucose Calcium Total Bilirubin AST Alkaline Phosphatase Total Protein Albumin 07/20/20 07/20/20 05:20 07:28 WBC 19.3 H RBC 2.42 L Hgb 6.6 L D Hct 20.8 L MCV 86 MCH 27.2 MCHC 31.8 L RDW 20.6 H Plt Count 70 L Seg Neutrophils % Not Reportable Carbonic Acid HCO3/H2CO3 Ratio ABG pH ABG pCO2 ABG pO2 ABG HCO3 ABG O2 Saturation ABG Base Excess FiO2 Sodium 130.9 L Potassium 5.2 H Chloride 101 Carbon Dioxide 24 Anion Gap 6 BUN 59 H Creatinine 1.97 H Est GFR ( Amer) 42 L Glucose 113 H Calcium 6.8 L* Total Bilirubin 1.0 AST 244 H Alkaline Phosphatase 173 H Total Protein 3.7 L Albumin 1.8 L 06/07/20 06/07/20 06/07/20 12:24 12:24 15:08 Creatine Kinase 34 L CK-MB (CK-2) Troponin I 0.035 0.041 NT-Pro-B Natriuret Pep 06/07/20 06/07/20 06/08/20 16:45 22:01 05:25 Creatine Kinase 35 L 40 L 35 L CK-MB (CK-2) Troponin I NT-Pro-B Natriuret Pep 06/08/20 06/29/20 06/29/20 05:25 07:30 07:30 Creatine Kinase 27 L CK-MB (CK-2) 1.04 Troponin I 0.028 NT-Pro-B Natriuret Pep 21521 H 06/29/20 06/29/20 06/29/20 15:11 15:11 20:37 Creatine Kinase 39 L CK-MB (CK-2) 2.04 Troponin I 0.142 0.166 NT-Pro-B Natriuret Pep 06/30/20 07/08/20 07/08/20 05:00 14:20 14:20 Creatine Kinase 51 L CK-MB (CK-2) 1.95 Troponin I 0.119 0.105 NT-Pro-B Natriuret Pep 07/08/20 07/11/20 07/14/20 14:20 03:45 05:50 Creatine Kinase CK-MB (CK-2) Troponin I NT-Pro-B Natriuret Pep 53578 H 60508 H 8910 H Impressions: Head CT 06/07/20 13:02 IMPRESSION: Stable CT of the brain with bifrontal encephalomalacia. No acute intracranial event. EVIDENCE OF ACUTE STROKE: NO. Thoracentesis Ultrasound 06/08/20 00:00 IMPRESSION: SUCCESSFUL THORACENTESIS AND CHEST TUBE PLACEMENT USING ULTRASOUND GUIDANCE. Abdomen/Pelvis CT 06/17/20 00:00 IMPRESSION: 1. Small bowel obstruction with transition point in the left mid abdomen. This may be a high-grade partial obstruction. Distal small bowel and colon are decompressed. 2. Marked urinary bladder distention, suggestive of bladder outlet obstruction. Clinical correlation is recommended. 3. Loculated right hydropneumothorax and small left pleural effusion, not significantly changed. Compressive atelectasis at the lung bases. 4. Moderate ascites, slightly decreased from previous examination. 5. Mildly nodular contour of the liver, nonspecific however could indicate underlying hepatic cirrhosis. Clinical correlation is with recommended. 6. Diffuse subcutaneous edema, suggestive of fluid overload. 7. Colonic diverticulosis without evidence of diverticulitis. KUB X-Ray 06/22/20 00:00 IMPRESSION: Partial small bowel obstruction Chest CT 06/25/20 00:00 IMPRESSION: Loculated right hydropneumothorax which appears similar at the right lung base from the abdominal CT dated 06/17/2020. Slight interval increase in left pleural effusion. Moderate ascites with a similar nonspecific nodular hepatic contour and slight heterogeneous hepatic attenuation. Paracentesis Ultrasound 07/01/20 08:26 IMPRESSION: SUCCESSFUL ULTRASOUND GUIDED PARACENTESIS. Chest X-Ray 07/18/20 05:00 IMPRESSION: Grossly stable patchy bibasilar opacities and small bilateral pleural effusions. Endotracheal tube tip overlies lower thoracic trachea, 1.8 cm above the koko. Additional lines and tubes as above. Assessment & Plan - Diagnosis (1) Acute hypoxemic respiratory failure due to COVID-19 Is this a current diagnosis for this admission?: Yes Plan: Currently intubated. (2) ESRD (end stage renal disease) on dialysis Is this a current diagnosis for this admission?: Yes Plan: Patient currently undergoing dialysis through an IJ PermCath. Plan to remove 1-2 L as tolerated.However it is going need to be difficult given his tenuous blood pressure . Dialysis orders were reviewed with treating dialysis nurse.. (3) Atrial fibrillation Qualifiers: Atrial fibrillation type: persistent (not longstanding) Qualified Code(s): I48.19 - Other persistent atrial fibrillation; I48.1 - Persistent atrial fibrillation Is this a current diagnosis for this admission?: Yes Plan: Patient in and out of rapid A. fib/tachyarrhythmia. Patient had to be given IV Cardizem yesterday. Rate controlled stable. (4) CHF (congestive heart failure) Qualifiers: Heart failure type: combined systolic and diastolic Heart failure chronicity: chronic Qualified Code(s): I50.42 - Chronic combined systolic (congestive) and diastolic (congestive) heart failure Is this a current diagnosis for this admission?: Yes Plan: Status quo. Background of dilated cardiomyopathy being managed by hospitalist and cardiology. (5) Ventricular tachyarrhythmia Is this a current diagnosis for this admission?: Yes Plan: Status post cardioversion and stable. (6) Bilateral pleural effusion Plan: Has had thoracentesis followed by right chest tube placement which has now been removed. He has now undergone pleurodesis. (7) Hypotension Qualifiers: Hypotension type: idiopathic hypotension Qualified Code(s): I95.0 - Idiopathic hypotension Is this a current diagnosis for this admission?: Yes Plan: Patient on Midodrin /pressors but blood pressure still tenuous. Likely combi nation of congestive heart failure/septic shock. Will check lactic acid/d-dimer as well given his current COVID STATUS. Overall poor prognosis. Monitor. (8) Hyponatremia Is this a current diagnosis for this admission?: Yes Plan: Dilutional. See response to some fluid removal. Monitor. (9) Acute decompensated heart failure Is this a current diagnosis for this admission?: Yes Plan: In the background of covid pneumonia/dilated cardiomyopathy. (10) Dilated cardiomyopathy Is this a current diagnosis for this admission?: Yes Plan: /Congestive heart failure. Being managed by hospitalist/cardiology. (11) Protein-energy malnutrition Qualifiers: Protein-calorie malnutrition severity: mild Qualified Code(s): E44.1 - Mild protein-calorie malnutrition Is this a current diagnosis for this admission?: Yes Plan: Adding to third spacing. Trial of albumin infusions/TPN. (12) Anemia Plan: Multifactorial including anemia of chronic kidney disease. However currently I am holding off on erythropoietin given the thrombogenicity of his COVID status.Currently I would recommend patient be transfused.
[2020-07-20] MEDS: DEXMEDETOMIDINE IN 0.9 % NACL 400 MCG/100 ML RTUPB IV PRN ×2 (11:20→22:22)
[2020-07-20] MEDS: ZINC SULFATE 220 MG CAPSULE NG SCH (11:49)
[2020-07-20] MEDS: ASCORBIC ACID 500 MG TABLET NG SCH ×2 (11:49→18:55)
[2020-07-20] MEDS: ASPIRIN 81 MG TABLET, CHEWABLE NG SCH (11:50)
[2020-07-20] MEDS: DOCUSATE SODIUM 100 MG/10 ML UDC NG SCH ×2 (11:50→17:43)
[2020-07-20] MEDS: METOCLOPRAMIDE HCL 10 MG TABLET NG SCH ×3 (11:50→17:52)
[2020-07-20] MEDS: HYDROCORTISONE SOD SUCCINATE INJ/PF 100 MG/2 ML SDV IV SCH ×2 (11:50→21:11)
[2020-07-20] MEDS: METOPROLOL TARTRATE 25 MG TABLET NG SCH ×2 (11:50→21:13)
[2020-07-20] MEDS ORDERED: NORMAL SALINE 250 ML IV PRN ×2 (12:52)
--- NOTE | 2020-07-20 13:30 | PDOC CRITICAL CARE PROG REPORT ---
General Date:: 07/20/20 ICU Day:: 12 Ventilator Day:: 12 Hospital Day:: 43 Resuscitation Status: Full Code Events in the past 12 to 24 Hours:: Not able to make much progress on ventilator. The patient has been in the hospital over 40 days. He was able to do a few hours on SBT this AM but than became tired and tachypnei c and had to go back on a rate The patient is weak and debilitated. It appears that he will need trach and PEG. However, will need to repeat Covid test before moving forward. Patient getting dialyzed tiw. he has very bad scrotal edema. His bowels are not moving and has apparently had a lot of difficulty with his tube feeds . We are getting flat and upright abdominal x ray. May have an element of gastroparesis. 07/19 The patient remains on the ventilator As noted he did do an SBT yesterday. We repeated his Covid test and it remains positive. It is unlikely we can get a surgeon to trach him while he is still Covid +. His bp is steady. he did have a bvrief episode df bradycardia earlier for reao sns unclear. We tried to interrogate the pacer but were unable perhops because it is a newer model. We have restarted tube feeds and started reglan for a possible motility issue.His potassium was borderlien low so he is getting replacement. 07/19 5:45PM the patient developed a sudden onset of a tachyarrhythmia. It was hard to discern whether supraventricular vs. ventricular. The patient had a heart rate in the 200 range . On closer examination there appeared to be deep ST depressions with flutter of P waves buried within. art a certain point the rhythm became quite irregular suggesting fib -flutter at 140-160. The patient was given Cardizem 10 mg with reversion to a sinus tach alternating with a paced rhythm. The patient will be placed on a crdizem drip for now. Has maintained his bp throughout these several minutes. 07/20 The patient is fairly discouraged. he may want to change goals of care. we have asked Dr. Guan to see him. he did have some bleeding last nght. He had coffee ground material from above and than some melena. His Hb dropped to 6.6 from 9.2. We are transfusing thepatient 2 units PRBCs. Gi was consulted. i would anticipate UGI endoscopy today. No further tachyarrhtymias. Tereza palced on hold. Reason for ICU Addmission:: Post CPR resuscitation; endotracheally intubated, on HD. Physical Exam Vital Signs: Temp Pulse Resp BP Pulse Ox 97.3 F 80 16 89/63 L 100 07/20/20 11:56 07/20/20 11:56 07/20/20 11:56 07/20/20 11:56 07/20/20 11:56 Intake & Output 07/19/20 07/20/20 07/21/20 06:59 06:59 06:59 Intake Total 1508 1329 Output Total 1105 65 1640 Balance 403 1264 -1640 Weight 69.2 kg 68.9 kg Weight/Height Weight 68.9 kg Height 5 ft 4 in General appearance: PRESENT: no acute distress - The patient appears chronically ill Head exam: PRESENT: atraumatic, normocephalic Eye exam: PRESENT: conjunctiva pink, PERRLA Ear exam: PRESENT: normal external ear exam Mouth exam: PRESENT: moist Neck exam: PRESENT: full ROM. ABSENT: lymphadenopathy, thyromegaly Respiratory exam: ABSENT: accessory muscle use, chest wall tenderness Cardiovascular exam: PRESENT: RRR Pulses: PRESENT: normal radial pulses GI/Abdominal exam: ABSENT: ascites Rectal exam: PRESENT: heme (+) stool Gentrourinary exam: ABSENT: ecchymosis, erythema Extremities exam: ABSENT: calf tenderness, clubbing - Patient awke. Appears depressed. Laboratory/Radiographs Laboratory Results: 07/20/20 07:28 07/20/20 05:20 07/19/20 07/20/20 07/20/20 17:55 05:20 05:20 WBC 27.6 H Cancelled RBC 3.35 L Cancelled Hgb 9.2 L Cancelled Hct 28.6 L Cancelled MCV 85 Cancelled MCH 27.3 Cancelled MCHC 32.0 Cancelled RDW 21.0 H Cancelled Plt Count 127 L Cancelled Seg Neutrophils % Cancelled Carbonic Acid 1.06 HCO3/H2CO3 Ratio 20:1 ABG pH 7.41 ABG pCO2 35.1 ABG pO2 59.6 L ABG HCO3 22.0 ABG O2 Saturation 91.4 L ABG Base Excess -2.3 FiO2 35% Sodium Potassium Chloride Carbon Dioxide Anion Gap BUN Creatinine Est GFR ( Amer) Glucose Calcium Total Bilirubin AST Alkaline Phosphatase Total Protein Albumin 07/20/20 07/20/20 05:20 07:28 WBC 19.3 H RBC 2.42 L Hgb 6.6 L D Hct 20.8 L MCV 86 MCH 27.2 MCHC 31.8 L RDW 20.6 H Plt Count 70 L Seg Neutrophils % Not Reportable Carbonic Acid HCO3/H2CO3 Ratio ABG pH ABG pCO2 ABG pO2 ABG HCO3 ABG O2 Saturation ABG Base Excess FiO2 Sodium 130.9 L Potassium 5.2 H Chloride 101 Carbon Dioxide 24 Anion Gap 6 BUN 59 H Creatinine 1.97 H Est GFR ( Amer) 42 L Glucose 113 H Calcium 6.8 L* Total Bilirubin 1.0 AST 244 H Alkaline Phosphatase 173 H Total Protein 3.7 L Albumin 1.8 L 06/07/20 06/07/20 06/07/20 12:24 12:24 15:08 Creatine Kinase 34 L CK-MB (CK-2) Troponin I 0.035 0.041 NT-Pro-B Natriuret Pep 06/07/20 06/07/20 06/08/20 16:45 22:01 05:25 Creatine Kinase 35 L 40 L 35 L CK-MB (CK-2) Troponin I NT-Pro-B Natriuret Pep 06/08/20 06/29/20 06/29/20 05:25 07:30 07:30 Creatine Kinase 27 L CK-MB (CK-2) 1.04 Troponin I 0.028 NT-Pro-B Natriuret Pep 10149 H 06/29/20 06/29/20 06/29/20 15:11 15:11 20:37 Creatine Kinase 39 L CK-MB (CK-2) 2.04 Troponin I 0.142 0.166 NT-Pro-B Natriuret Pep 06/30/20 07/08/20 07/08/20 05:00 14:20 14:20 Creatine Kinase 51 L CK-MB (CK-2) 1.95 Troponin I 0.119 0.105 NT-Pro-B Natriuret Pep 07/08/20 07/11/20 07/14/20 14:20 03:45 05:50 Creatine Kinase CK-MB (CK-2) Troponin I NT-Pro-B Natriuret Pep 63500 H 36939 H 8910 H Impressions: Head CT 06/07/20 13:02 IMPRESSION: Stable CT of the brain with bifrontal encephalomalacia. No acute intracranial event. EVIDENCE OF ACUTE STROKE: NO. Thoracentesis Ultrasound 06/08/20 00:00 IMPRESSION: SUCCESSFUL THORACENTESIS AND CHEST TUBE PLACEMENT USING ULTRASOUND GUIDANCE. Abdomen/Pelvis CT 06/17/20 00:00 IMPRESSION: 1. Small bowel obstruction with transition point in the left mid abdomen. This may be a high-grade partial obstruction. Distal small bowel and colon are decompressed. 2. Marked urinary bladder distention, suggestive of bladder outlet obstruction. Clinical correlation is recommended. 3. Loculated right hydropneumothorax and small left pleural effusion, not significantly changed. Compressive atelectasis at the lung bases. 4. Moderate ascites, slightly decreased from previous examination. 5. Mildly nodular contour of the liver, nonspecific however could indicate underlying hepatic cirrhosis. Clinical correlation is with recommended. 6. Diffuse subcutaneous edema, suggestive of fluid overload. 7. Colonic diverticulosis without evidence of diverticulitis. KUB X-Ray 06/22/20 00:00 IMPRESSION: Partial small bowel obstruction Chest CT 06/25/20 00:00 IMPRESSION: Loculated right hydropneumothorax which appears similar at the right lung base from the abdominal CT dated 06/17/2020. Slight interval increase in left pleural effusion. Moderate ascites with a similar nonspecific nodular hepatic contour and slight heterogeneous hepatic attenuation. Paracentesis Ultrasound 07/01/20 08:26 IMPRESSION: SUCCESSFUL ULTRASOUND GUIDED PARACENTESIS. Chest X-Ray 07/18/20 05:00 IMPRESSION: Grossly stable patchy bibasilar opacities and small bilateral pleural effusions. Endotracheal tube tip overlies lower thoracic trachea, 1.8 cm above the koko. Additional lines and tubes as above. Assessment and Plan - Diagnosis (1) Acute hypoxemic respiratory failure due to COVID-19 Is this a current diagnosis for this admission?: Yes Plan: We will try weaning again Saturday. He is not able to at this time. Aas noted the patient did wean or a few hours this AM but than becem taschypneic and was using accessory resp. mm. 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 However, need to recheck his Covid status. 07/20 the patient has jorge intubated about 12 days. His Covid test remains positive or we would send him for a tracheostomy and PEG. It appears unlikely that he can successfully be weaned off the ventialtor. (2) Acute systolic heart failure Is this a current diagnosis for this admission?: Yes Plan: 07/20 the patient does not appear to be in heart failure at this time. (3) Atrial fibrillation Qualifiers: Atrial fibrillation type: persistent (not longstanding) Qualified Code(s): I48.19 - Other persistent atrial fibrillation; I48.1 - Persistent atrial fibrillation Is this a current diagnosis for this admission?: Yes Plan: Paced The patient has been on Metoprolol for hR control but it has recently been stopped for heart rate <90 given hispersistent hypotension. The patient is on digoxin as well. 07/19 heart rate is well controlled at present. had a single episode dof bradycardia lasting several seconds earlier. His digoxin level is in the therapeutic range 07/20 The patient appears to be a in a paced rhythm in the 80s. No further tachyarrhythmias. Will hold the cardizem drip for now (4) COPD (chronic obstructive pulmonary disease) Qualifiers: COPD type: unspecified COPD Qualified Code(s): J44.9 - Chronic obstructive pulmonary disease, unspecified Is this a current diagnosis for this admission?: Yes Plan: There are multiple reasons for difficult weanijng. Amongst these are thepatient's pooor cardiovascualr statuis , his COPD and poor nutriotional status. CXR shows stable bibasilar pulmonary densities. (5) Protein-energy malnutrition Qualifiers: Protein-calorie malnutrition severity: mild Qualified Code(s): E44.1 - Mild protein-calorie malnutrition Is this a current diagnosis for this admission?: Yes Plan: The patient is malnourished in the wake of his prolonged hospitalization. We have had to hold his feedings beciuse of vomiting and high residuals lately. Will be imaging abdomen . Considere adding reglan to regimen as well. (6) CKD (chronic kidney disease) requiring chronic dialysis Is this a current diagnosis for this admission?: Yes Plan: The patient continues with doiaysis tiw. 07/20 he is getting dialyzed today. (7) UGIB (upper gastrointestinal bleed) Is this a current diagnosis for this admission?: Yes Plan: The patient developed signs of an UGI bleed late yesterday. Cinthyaquis has been placed on hold. He had coffee ground material from his stmach at that time. this was follwed hours later by some melena. his Hb droped form 9.2 to 6.8. GI has been consulted. The patient is getting initially 2 units of PRBCS. (8) Hypotension Qualifiers: Hypotension type: idiopathic hypotension Qualified Code(s): I95.0 - Idiopathic hypotension Is this a current diagnosis for this admission?: Yes Plan: Has been fairly consistently hypotensive. The patient was placed on Midodrine. Weare holding his metoprolol at this time as well., 07/20 His Bp is a little lower than normal now. His lactate is up a bity as well. it may be due to drecent blood loss. The opatient is to be transfused 2 units in the near furue. He may need low odse pressors but we will see. Critical Time Critical Time (minutes): 40 Level of Care: ICU -: 1. The care of a critical patient is a dynamic process. This note is a abrasives sales representative synopsis but static in nature. The timeframe for treatments given in order is not necessarily the actual time these treatments may have been done. 2. This patient requires critical care secondary to ongoing requirements for therapy not offered or safe outside the critical care environment. Transfer to a lower level of care will result in altered life or limb morbidity and mortality. 3. Multidisciplinary rounds completed. 4. ABCDE bundle addressed.
[2020-07-20] MEDS: ATORVASTATIN CALCIUM 40 MG TABLET NG SCH (21:11)
[2020-07-20] MEDS: MIRTAZAPINE 15 MG TABLET NG SCH (21:12)
[2020-07-20 21:36] LABS: MEAN CORPUSCULAR HEMOGLOBIN 28.9 pg (27.0-33.4); MEAN CORPUSCULAR HGB CONC 33.8 g/dL (32.0-36.0); MEAN CORPUSCULAR VOLUME 85 fl (80-97); RED BLOOD COUNT 3.75 10^6/uL (4.35-5.55); RED CELL DISTRIBUTION WIDTH 16.8 % (11.5-14.0); WHITE BLOOD COUNT 22.7 10^3/uL (4.0-10.5)
[2020-07-20 22:54] LABS: ABSOLUTE LYMPHOCYTES# (MANUAL) 0.5 10^3/uL (0.5-4.7); BASOPHILS % (MANUAL) 0 % (0-2); EOSINOPHILS % (MANUAL) 0 % (0-6); LYMPHOCYTES % (MANUAL) 2 % (13-45); MONOCYTES % (MANUAL) 0 % (3-13); SEGMENTED NEUTROPHILS % (MAN) 98 % (42-78); TOTAL CELLS COUNTED 100
[2020-07-20 22:56] LABS: ANISOCYTOSIS 1+; BURR CELLS SLIGHT; OVALOCYTES SLIGHT; PLATELET COMMENT DECREASED; POIKILOCYTOSIS SLIGHT; SCHISTOCYTES SLIGHT; TEAR DROP CELLS SLIGHT; TOXIC GRANULATION SLIGHT
[2020-07-20 22:57] LABS: HEMOGLOBIN 10.8 g/dL (13.5-17.0); PLATELET COUNT 63 10^3/uL (150-450)
[2020-07-21] MEDS: FENTANYL CITRATE INJ/PF 100 MCG/2 ML AMPUL IV PRN ×4 (00:02→22:28)
[2020-07-21 03:50] LABS: HEMOGLOBIN 10.7 g/dL (13.5-17.0); MEAN CORPUSCULAR HEMOGLOBIN 28.6 pg (27.0-33.4); MEAN CORPUSCULAR HGB CONC 33.4 g/dL (32.0-36.0); MEAN CORPUSCULAR VOLUME 86 fl (80-97); RED BLOOD COUNT 3.74 10^6/uL (4.35-5.55); RED CELL DISTRIBUTION WIDTH 16.9 % (11.5-14.0); WHITE BLOOD COUNT 21.6 10^3/uL (4.0-10.5)
[2020-07-21 04:00] LABS: ALBUMIN 2.1 g/dL (3.5-5.0); ALKALINE PHOSPHATASE 173 U/L (38-126); ASPARTATE AMINO TRANSFERASE 362 U/L (17-59); BILIRUBIN,DIRECT 0.9 mg/dL (0.0-0.4); BILIRUBIN,TOTAL 1.6 mg/dL (0.2-1.3); TOTAL PROTEIN 4.1 g/dL (6.3-8.2)
[2020-07-21 04:45] LABS: ABSOLUTE LYMPHOCYTES# (MANUAL) 0.9 10^3/uL (0.5-4.7); ABSOLUTE MONOCYTES # (MANUAL) 0.2 10^3/uL (0.1-1.4); BASOPHILS % (MANUAL) 0 % (0-2); EOSINOPHILS % (MANUAL) 0 % (0-6); LYMPHOCYTES % (MANUAL) 4 % (13-45); MONOCYTES % (MANUAL) 1 % (3-13); SEGMENTED NEUTROPHILS % (MAN) 95 % (42-78); TOTAL CELLS COUNTED 100
[2020-07-21 04:46] LABS: ANISOCYTOSIS 1+; BURR CELLS SLIGHT; OVALOCYTES SLIGHT; PLATELET COMMENT DECREASED; POIKILOCYTOSIS SLIGHT; TOXIC GRANULATION 1+
[2020-07-21 04:49] LABS: PLATELET COUNT 50 10^3/uL (150-450)
[2020-07-21] MEDS: DEXTROSE 5%-NORMAL SALINE 1,000 ML IV PRN (05:35)
[2020-07-21 05:52] LABS: ANION GAP 7 (5-19); BLOOD UREA NITROGEN 52 mg/dL (7-20); CALCIUM 7.2 mg/dL (8.4-10.2); CARBON DIOXIDE 24 mmol/L (22-30); CHLORIDE 101 mmol/L (98-107); GLUCOSE 99 mg/dL (75-110); POTASSIUM 4.7 mmol/L (3.6-5.0)
[2020-07-21] MEDS: INSULIN REG, HUMAN 100 UNIT/ML 3 ML VIAL (PYX) SUBCUT SCH ×3 (07:31→17:32)
[2020-07-21] MEDS ORDERED: FENTANYL CITRATE INJ/PF 100 MCG/2 ML AMPUL ONE (09:07)
[2020-07-21] MEDS ORDERED: NALOXONE HCL INJ/PF 0.4 MG/1 ML SDV ONE (09:07)
[2020-07-21] MEDS ORDERED: ONDANSETRON HCL INJ/PF 4 MG/2 ML SDV ONE (09:07)
[2020-07-21] MEDS ORDERED: DIPHENHYDRAMINE HCL 50 MG/ML VIAL ONE (09:07)
[2020-07-21] MEDS ORDERED: MIDAZOLAM 2 MG/2 ML INJ ONE (09:08)
[2020-07-21] MEDS ORDERED: GLUCAGON,HUMAN RECOMB 1 MG INJ ONE (09:08)
[2020-07-21] MEDS ORDERED: EPINEPHRINE INJ 1 MG/10 ML DISP.SYRIN ONE (09:08)
[2020-07-21] MEDS ORDERED: FLUMAZENIL INJ 0.5 MG/5 ML VIAL ONE (09:08)
[2020-07-21] MEDS: DEXMEDETOMIDINE IN 0.9 % NACL 400 MCG/100 ML RTUPB IV PRN ×2 (09:30→20:39)
[2020-07-21] MEDS: NORMAL SALINE 100 ML with PANTOPRAZOLE SODIUM 80 MG IV PRN ×4 (09:30→20:39)
[2020-07-21] MEDS ORDERED: DILTIAZEM HCL/D5W 0 MG/0 ML RTUINJ IV ONE (10:16)
[2020-07-21] MEDS ORDERED: DILTIAZEM HCL INJ 25 MG/5 ML VIAL ONE (10:16)
--- NOTE | 2020-07-21 10:29 | Progress Note ---
Provider Note Provider Note: informed consent obtained patient needed urgent EGD for coffee grounds with drop of H/H we had set up for attempt EGD, had to lower head of bed slightly and vent alarm set off patient noted to be tachy and oxygen turned up to 100% ICU attending was present Procedure aborted , no intubation of scope performed at all.
--- NOTE | 2020-07-21 10:38 | PDOC CRITICAL CARE PROG REPORT ---
General Date:: 07/21/20 ICU Day:: 13 Ventilator Day:: 13 Hospital Day:: 44 Resuscitation Status: Full Code Events in the past 12 to 24 Hours:: Not able to make much progress on ventilator. The patient has been in the hospital over 40 days. He was able to do a few hours on SBT this AM but than became tired and tachypnei c and had to go back on a rate The patient is weak and debilitated. It appears that he will need trach and PEG. However, will need to repeat Covid test before moving forward. Patient getting dialyzed tiw. he has very bad scrotal edema. His bowels are not moving and has apparently had a lot of difficulty with his tube feeds . We are getting flat and upright abdominal x ray. May have an element of gastroparesis. 07/19 The patient remains on the ventilator As noted he did do an SBT yesterday. We repeated his Covid test and it remains positive. It is unlikely we can get a surgeon to trach him while he is still Covid +. His bp is steady. he did have a bvrief episode df bradycardia earlier for reao sns unclear. We tried to interrogate the pacer but were unable perhops because it is a newer model. We have restarted tube feeds and started reglan for a possible motility issue.His potassium was borderlien low so he is getting replacement. 07/19 5:45PM the patient developed a sudden onset of a tachyarrhythmia. It was hard to discern whether supraventricular vs. ventricular. The patient had a heart rate in the 200 range . On closer examination there appeared to be deep ST depressions with flutter of P waves buried within. art a certain point the rhythm became quite irregular suggesting fib -flutter at 140-160. The patient was given Cardizem 10 mg with reversion to a sinus tach alternating with a paced rhythm. The patient will be placed on a crdizem drip for now. Has maintained his bp throughout these several minutes. 07/20 The patient is fairly discouraged. he may want to change goals of care. we have asked Dr. Guan to see him. he did have some bleeding last nght. He had coffee ground material from above and than some melena. His Hb dropped to 6.6 from 9.2. We are transfusing thepatient 2 units PRBCs. Gi was consulted. i would anticipate UGI endoscopy today. No further tachyarrhtymias. Tereza palced on hold. 07/21 The patient was set to have an EGD this AM. he suddenly got very tachycardic as he did 2 days ago whith what appears to be arapid Atrial fib with rate in excess of 200. The patient wa s given 10mg Cardizemand paced on a drip at 10mg/hr.the procedure was than aborted.. The patient dropped his Bp transiently. He looks rather poorly at resent. It does nota ppear that he is likely to suvive very long with his myriad issue. Following transfusin his Hb is uo 10.7 Of course we cannot anticoagualte him given the recent gi bleed. Reason for ICU Addmission:: Post CPR resuscitation; endotracheally intubated, on HD. Physical Exam Vital Signs: Temp Pulse Resp BP Pulse Ox 96.6 F L 83 19 98/70 L 100 07/21/20 06:00 07/21/20 08:00 07/21/20 08:00 07/21/20 08:00 07/21/20 08:00 Intake & Output 07/20/20 07/21/20 07/22/20 06:59 06:59 06:59 Intake Total 1329 2022 Output Total 65 1650 Balance 1264 372 Weight 68.9 kg 68.9 kg Weight/Height Weight 68.9 kg Height 5 ft 4 in Exam: In preetty significant distress. tachypneic, poor color , miminimally repsonsive. Did get 2 mg of Versed in anticiaptionof said procedure. Head exam: PRESENT: atraumatic, normocephalic Eye exam: PRESENT: conjunctiva pink Ear exam: PRESENT: normal external ear exam Mouth exam: PRESENT: dry mucosa Neck exam: ABSENT: lymphadenopathy, tenderness Respiratory exam: PRESENT: accessory muscle use Cardiovascular exam: PRESENT: tachycardia GI/Abdominal exam: PRESENT: normal bowel sounds, soft. ABSENT: tenderness Rectal exam: PRESENT: deferred Gentrourinary exam: ABSENT: ecchymosis Extremities exam: ABSENT: calf tenderness, clubbing - The patient Neurological exam: PRESENT: other - The atyient is minimally responsive at present but he did have a very rapid heart rate and did get versed. Laboratory/Radiographs Laboratory Results: 07/21/20 03:30 07/21/20 03:30 07/20/20 07/20/20 07/20/20 11:55 11:55 21:20 WBC 22.7 H RBC 3.75 L Hgb 10.8 L D Hct 32.0 L MCV 85 MCH 28.9 MCHC 33.8 RDW 16.8 H Plt Count 63 L Seg Neutrophils % Not Reportable Sodium Potassium Chloride Carbon Dioxide Anion Gap BUN Creatinine Est GFR ( Amer) Glucose Lactic Acid 2.4 H Calcium Total Bilirubin AST Alkaline Phosphatase Total Protein Albumin Blood Type O POSITIVE Antibody Screen NEGATIVE 07/21/20 07/21/20 07/21/20 03:30 03:30 03:30 WBC 21.6 H RBC 3.74 L Hgb 10.7 L Hct 32.0 L MCV 86 MCH 28.6 MCHC 33.4 RDW 16.9 H Plt Count 50 L Seg Neutrophils % Not Reportable Sodium 131.7 L Potassium 4.7 Chloride 101 Carbon Dioxide 24 Anion Gap 7 BUN 52 H Creatinine 1.80 H Est GFR ( Amer) 47 L Glucose 99 Lactic Acid Calcium 7.2 L Total Bilirubin 1.6 H AST 362 H Alkaline Phosphatase 173 H Total Protein 4.1 L Albumin 2.1 L Blood Type Antibody Screen 06/07/20 06/07/20 06/07/20 12:24 12:24 15:08 Creatine Kinase 34 L CK-MB (CK-2) Troponin I 0.035 0.041 NT-Pro-B Natriuret Pep 06/07/20 06/07/20 06/08/20 16:45 22:01 05:25 Creatine Kinase 35 L 40 L 35 L CK-MB (CK-2) Troponin I NT-Pro-B Natriuret Pep 06/08/20 06/29/20 06/29/20 05:25 07:30 07:30 Creatine Kinase 27 L CK-MB (CK-2) 1.04 Troponin I 0.028 NT-Pro-B Natriuret Pep 37660 H 06/29/20 06/29/20 06/29/20 15:11 15:11 20:37 Creatine Kinase 39 L CK-MB (CK-2) 2.04 Troponin I 0.142 0.166 NT-Pro-B Natriuret Pep 06/30/20 07/08/20 07/08/20 05:00 14:20 14:20 Creatine Kinase 51 L CK-MB (CK-2) 1.95 Troponin I 0.119 0.105 NT-Pro-B Natriuret Pep 07/08/20 07/11/20 07/14/20 14:20 03:45 05:50 Creatine Kinase CK-MB (CK-2) Troponin I NT-Pro-B Natriuret Pep 54233 H 87787 H 8910 H Impressions: Head CT 06/07/20 13:02 IMPRESSION: Stable CT of the brain with bifrontal encephalomalacia. No acute intracranial event. EVIDENCE OF ACUTE STROKE: NO. Thoracentesis Ultrasound 06/08/20 00:00 IMPRESSION: SUCCESSFUL THORACENTESIS AND CHEST TUBE PLACEMENT USING ULTRASOUND GUIDANCE. Abdomen/Pelvis CT 06/17/20 00:00 IMPRESSION: 1. Small bowel obstruction with transition point in the left mid abdomen. This may be a high-grade partial obstruction. Distal small bowel and colon are decompressed. 2. Marked urinary bladder distention, suggestive of bladder outlet obstruction. Clinical correlation is recommended. 3. Loculated right hydropneumothorax and small left pleural effusion, not significantly changed. Compressive atelectasis at the lung bases. 4. Moderate ascites, slightly decreased from previous examination. 5. Mildly nodular contour of the liver, nonspecific however could indicate underlying hepatic cirrhosis. Clinical correlation is with recommended. 6. Diffuse subcutaneous edema, suggestive of fluid overload. 7. Colonic diverticulosis without evidence of diverticulitis. KUB X-Ray 06/22/20 00:00 IMPRESSION: Partial small bowel obstruction Chest CT 06/25/20 00:00 IMPRESSION: Loculated right hydropneumothorax which appears similar at the right lung base from the abdominal CT dated 06/17/2020. Slight interval increase in left pleural effusion. Moderate ascites with a similar nonspecific nodular hepatic contour and slight heterogeneous hepatic attenuation. Paracentesis Ultrasound 07/01/20 08:26 IMPRESSION: SUCCESSFUL ULTRASOUND GUIDED PARACENTESIS. Chest X-Ray 07/18/20 05:00 IMPRESSION: Grossly stable patchy bibasilar opacities and small bilateral pleural effusions. Endotracheal tube tip overlies lower thoracic trachea, 1.8 cm above the koko. Additional lines and tubes as above. Assessment and Plan - Diagnosis (1) Acute hypoxemic respiratory failure due to COVID-19 Is this a current diagnosis for this admission?: Yes (2) Acute systolic heart failure Is this a current diagnosis for this admission?: Yes Plan: 07/20 the patient does not appear to be in heart failure at this time. (3) Atrial fibrillation Qualifiers: Atrial fibrillation type: persistent (not longstanding) Qualified Code(s): I48.19 - Other persistent atrial fibrillation; I48.1 - Persistent atrial fibrillation Is this a current diagnosis for this admission?: Yes Plan: Paced The patient has been on Metoprolol for hR control but it has recently been stopped for heart rate <90 given hispersistent hypotension. The patient is on digoxin as well. 07/19 heart rate is well controlled at present. had a single episode dof bradycardia lasting several seconds earlier. His digoxin level is in the therapeutic range 07/20 The patient appears to be a in a paced rhythm in the 80s. No further tachyarrhythmias. Will hold the cardizem drip for now 07/21 Going in and out of rapid Atrial fib. Back onIV Cardizem (4) COPD (chronic obstructive pulmonary disease) Qualifiers: COPD type: unspecified COPD Qualified Code(s): J44.9 - Chronic obstructive pulmonary disease, unspecified Is this a current diagnosis for this admission?: Yes Plan: There are multiple reasons for difficult weanijng. Amongst these are thepatient's pooor cardiovascualr statuis , his COPD and poor nutriotional status. CXR shows stable bibasilar pulmonary densities. (5) Protein-energy malnutrition Qualifiers: Protein-calorie malnutrition severity: mild Qualified Code(s): E44.1 - Mild protein-calorie malnutrition Is this a current diagnosis for this admission?: Yes Plan: The patient is malnourished in the wake of his prolonged hospitalization. We have had to hold his feedings beciuse of vomiting and high residuals lately. Will be imaging abdomen . Considere adding reglan to regimen as well. (6) CKD (chronic kidney disease) requiring chronic dialysis Is this a current diagnosis for this admission?: Yes (7) UGIB (upper gastrointestinal bleed) Is this a current diagnosis for this admission?: Yes Plan: The patient developed signs of an UGI bleed late yesterday. Eliquis has been placed on hold. He had coffee ground material from his stmach at that time. this was follwed hours later by some melena. his Hb droped form 9.2 to 6.8. GI has been consulted. The patient is getting initially 2 units of PRBCS. 07/21 i believe the bleeding has subsided for the time being. Unsure when and if he mmay havean invasive prcocedure again.Will montior melena, NGT effluent and Hb, (8) Hypotension Qualifiers: Hypotension type: idiopathic hypotension Qualified Code(s): I95.0 - Idiopathic hypotension Is this a current diagnosis for this admission?: Yes Plan: Has been fairly consistently hypotensive. The patient was placed on Midodrine. Weare holding his metoprolol at this time as well., 07/20 His Bp is a little lower than normal now. His lactate is up a bity as well. it may be due to drecent blood loss. The opatient is to be transfused 2 units in the near furue. He may need low odse pressors but we will see. Plan Summary: I get the sense that thepoatient is not likelty to survive very long. We will attempt to eleicit what he wants to do going forward. uinfortuantelt, we do not hjave either palliative or hospice services at our disposal presently. Critical Time Critical Time (minutes): 30 Level of Care: ICU -: 1. The care of a critical patient is a dynamic process. This note is a sales representative printing paper synopsis but static in nature. The timeframe for treatments given in order is not necessarily the actual time these treatments may have been done. 2. This patient requires critical care secondary to ongoing requirements for therapy not offered or safe outside the critical care environment. Transfer to a lower level of care will result in altered life or limb morbidity and mortality. 3. Multidisciplinary rounds completed. 4. ABCDE bundle addressed.
--- NOTE | 2020-07-21 10:49 | PDOC CONSULTATION ---
Consultation Consult Date: 07/20/20 Provider Consulted: PRITI JAMES Consult reason:: GI bleeding History of Present Illness Admission Date/PCP: 06/07/20 16:07 SUJIT AMARO PA-C History of Present Illness: SHAHRZAD JAIN is a 59 year old male I was asked to see this patient in the ICU prolonged course since admission has Covid 19 and has several complications as a result of that patient had been extubated once but had to be re-intubated about a day ago, had SVT and was on Cardizem, apparently had been discontinued had coffee ground emesis and GI consult obtained I had spoken to Dr Hoffman and noted that patient is very high risk, H/H stable and plans were made to attempt an EGD patient had been anticoagulation in the past consent needed to be obtained. Past Medical History Cardiac Medical History: Reports: Atrial Fibrillation, Hypertension Pulmonary Medical History: Reports: Chronic Obstructive Pulmonary Disease ([place] PD), Respiratory Failure Denies: Tuberculosis Neurological Medical History: Reports: Seizures - LAST 5 YR AGO Renal/ Medical History: Reports: End Stage Renal Disease Psychiatric Medical History: Denies: Depression Hematology: Reports: Anemia Past Surgical History Past Surgical History: Reports: Orthopedic Surgery - hip, arm, Pacemaker, Valve Replacement - Mechanical mitral valve replacement, October 2019, Other - Complicated mitral valve replacement for severe mitral stenosis? Social History Lives with: Alone Smoking Status: Unknown if Ever Smoked Electronic Cigarette use?: No Frequency of Alcohol Use: Occasional Hx Recreational Drug Use: No Drugs: None Hx Prescription Drug Abuse: No - Advance Directive Resuscitation Status: Full Code Family History Family History: Reviewed & Not Pertinent, CAD Parental Family History Reviewed: Yes Children Family History Reviewed: Unknown Sibling(s) Family History Reviewed.: Unknown Medication/Allergy Home Medications: Fluticasone Propionate [Flonase Nasal Herrin 50 Mcg/Herrin 16 gm] 2 spray NASL DAILY 03/14/20 Metoprolol Tartrate [Lopressor 50 mg Tablet] 50 mg PO Q12 30 Days #60 tablet 03/23/20 Bumetanide [Bumex 1 mg Tablet] 0.5 mg PO DAILY 30 Days #15 tablet 04/08/20 Midodrine HCl 10 mg PO TID 30 Days #90 tablet 04/08/20 Warfarin Sodium [Jantoven 3 mg Tablet] 3 mg PO QHS 30 Days #30 tablet 04/08/20 Furosemide [Lasix 40 mg Tablet] 40 mg PO QAM 06/07/20 Allergies/Adverse Reactions: metoprolol [From Lopressor] Adverse Reaction (Mild, Verified 06/14/20 06:18) rash Review of Systems Constitutional: PRESENT: fever(s), weakness Cardiovascular: PRESENT: palpitations Gastrointestinal: PRESENT: coffee ground emesis, melena Musculoskeletal: ABSENT: joint swelling Integumentary: ABSENT: lesions, wounds Endocrine: ABSENT: polyphagia, polyuria Physical Exam Vital Signs: Temp Pulse Resp BP Pulse Ox 96.6 F L 83 19 98/70 L 100 07/21/20 06:00 07/21/20 08:00 07/21/20 08:00 07/21/20 08:00 07/21/20 08:00 Intake & Output 07/20/20 07/21/20 07/22/20 06:59 06:59 06:59 Intake Total 1329 2022 Output Total 65 1650 Balance 1264 372 Weight 68.9 kg 68.9 kg General appearance: PRESENT: cooperative, thin Head exam: PRESENT: normocephalic Eye exam: PRESENT: PERRLA. ABSENT: scleral icterus Mouth exam: PRESENT: neck supple Neck exam: ABSENT: tracheal deviation Respiratory exam: PRESENT: symmetrical Cardiovascular exam: PRESENT: RRR, +S1, +S2 GI/Abdominal exam: PRESENT: soft. ABSENT: rebound, rigid, tenderness Extremities exam: ABSENT: joint swelling Neurological exam: PRESENT: oriented to time, CN II-XII grossly intact Psychiatric exam: PRESENT: appropriate affect Skin exam: ABSENT: petechiae, vesicles Results Laboratory Results: 07/21/20 03:30 07/21/20 03:30 07/20/20 07/20/20 07/20/20 11:55 11:55 21:20 WBC 22.7 H RBC 3.75 L Hgb 10.8 L D Hct 32.0 L MCV 85 MCH 28.9 MCHC 33.8 RDW 16.8 H Plt Count 63 L Seg Neutrophils % Not Reportable Sodium Potassium Chloride Carbon Dioxide Anion Gap BUN Creatinine Est GFR ( Amer) Glucose Lactic Acid 2.4 H Calcium Total Bilirubin AST Alkaline Phosphatase Total Protein Albumin Blood Type O POSITIVE Antibody Screen NEGATIVE 07/21/20 07/21/20 07/21/20 03:30 03:30 03:30 WBC 21.6 H RBC 3.74 L Hgb 10.7 L Hct 32.0 L MCV 86 MCH 28.6 MCHC 33.4 RDW 16.9 H Plt Count 50 L Seg Neutrophils % Not Reportable Sodium 131.7 L Potassium 4.7 Chloride 101 Carbon Dioxide 24 Anion Gap 7 BUN 52 H Creatinine 1.80 H Est GFR ( Amer) 47 L Glucose 99 Lactic Acid Calcium 7.2 L Total Bilirubin 1.6 H AST 362 H Alkaline Phosphatase 173 H Total Protein 4.1 L Albumin 2.1 L Blood Type Antibody Screen 06/07/20 06/07/20 06/07/20 12:24 12:24 15:08 Creatine Kinase 34 L CK-MB (CK-2) Troponin I 0.035 0.041 NT-Pro-B Natriuret Pep 06/07/20 06/07/20 06/08/20 16:45 22:01 05:25 Creatine Kinase 35 L 40 L 35 L CK-MB (CK-2) Troponin I NT-Pro-B Natriuret Pep 06/08/20 06/29/20 06/29/20 05:25 07:30 07:30 Creatine Kinase 27 L CK-MB (CK-2) 1.04 Troponin I 0.028 NT-Pro-B Natriuret Pep 29024 H 06/29/20 06/29/20 06/29/20 15:11 15:11 20:37 Creatine Kinase 39 L CK-MB (CK-2) 2.04 Troponin I 0.142 0.166 NT-Pro-B Natriuret Pep 06/30/20 07/08/20 07/08/20 05:00 14:20 14:20 Creatine Kinase 51 L CK-MB (CK-2) 1.95 Troponin I 0.119 0.105 NT-Pro-B Natriuret Pep 07/08/20 07/11/20 07/14/20 14:20 03:45 05:50 Creatine Kinase CK-MB (CK-2) Troponin I NT-Pro-B Natriuret Pep 31364 H 08070 H 8910 H Impressions: Head CT 06/07/20 13:02 IMPRESSION: Stable CT of the brain with bifrontal encephalomalacia. No acute intracranial event. EVIDENCE OF ACUTE STROKE: NO. Thoracentesis Ultrasound 06/08/20 00:00 IMPRESSION: SUCCESSFUL THORACENTESIS AND CHEST TUBE PLACEMENT USING ULTRASOUND GUIDANCE. Abdomen/Pelvis CT 06/17/20 00:00 IMPRESSION: 1. Small bowel obstruction with transition point in the left mid abdomen. This may be a high-grade partial obstruction. Distal small bowel and colon are decompressed. 2. Marked urinary bladder distention, suggestive of bladder outlet obstruction. Clinical correlation is recommended. 3. Loculated right hydropneumothorax and small left pleural effusion, not significantly changed. Compressive atelectasis at the lung bases. 4. Moderate ascites, slightly decreased from previous examination. 5. Mildly nodular contour of the liver, nonspecific however could indicate underlying hepatic cirrhosis. Clinical correlation is with recommended. 6. Diffuse subcutaneous edema, suggestive of fluid overload. 7. Colonic diverticulosis without evidence of diverticulitis. KUB X-Ray 06/22/20 00:00 IMPRESSION: Partial small bowel obstruction Chest CT 06/25/20 00:00 IMPRESSION: Loculated right hydropneumothorax which appears similar at the right lung base from the abdominal CT dated 06/17/2020. Slight interval increase in left pleural effusion. Moderate ascites with a similar nonspecific nodular hepatic contour and slight heterogeneous hepatic attenuation. Paracentesis Ultrasound 07/01/20 08:26 IMPRESSION: SUCCESSFUL ULTRASOUND GUIDED PARACENTESIS. Chest X-Ray 07/18/20 05:00 IMPRESSION: Grossly stable patchy bibasilar opacities and small bilateral pleural effusions. Endotracheal tube tip overlies lower thoracic trachea, 1.8 cm above the koko. Additional lines and tubes as above. Assessment & Plan - Diagnosis (1) UGIB (upper gastrointestinal bleed) Is this a current diagnosis for this admission?: Yes Plan: high risk patient requiring procedure complications including risk of bleeding , perforation requiring surgery have been discussed with family given both severe respiratory and cardiac compromise, would have a low threshold to defer on procedure. will make plans to attempt procedure likely needs to be in ICU setting will schedule for am of 07/21/2020 - Time Time Spent: Greater than 70 Minutes
[2020-07-21] MEDS: METOPROLOL TARTRATE 25 MG TABLET NG SCH ×2 (10:56→21:01)
[2020-07-21] MEDS ORDERED: DILTIAZEM HCL INJ 25 MG/5 ML VIAL IV ONE (12:00)
[2020-07-21] MEDS: MIDODRINE HCL 5 MG TABLET NG SCH ×3 (12:26→17:51)
[2020-07-21] MEDS: ZINC SULFATE 220 MG CAPSULE NG SCH (12:26)
[2020-07-21] MEDS: ASPIRIN 81 MG TABLET, CHEWABLE NG SCH (12:26)
[2020-07-21] MEDS: ASCORBIC ACID 500 MG TABLET NG SCH ×2 (12:26→17:31)
[2020-07-21] MEDS: HYDROCORTISONE SOD SUCCINATE INJ/PF 100 MG/2 ML SDV IV SCH ×2 (12:27→22:30)
[2020-07-21] MEDS: METOCLOPRAMIDE HCL 10 MG TABLET NG SCH ×3 (12:27→18:46)
[2020-07-21] MEDS: DOCUSATE SODIUM 100 MG/10 ML UDC NG SCH ×2 (12:27→17:31)
--- NOTE | 2020-07-21 19:48 | PSYCHOLOGICAL NOTE ---
<ZAHRA SIMMONS - Last Filed: 07/21/20 19:38> Psych Note - Psych Note Date seen by psych provider: 07/21/20 Time seen by psych provider: 15:45 Psych Note: Reason for Consult: assess patient's plan of care wishes Clinician and attending nurse Camilla Shannon is at bedside with patient during assessment Patient is currently intubated but able to answer yes and not questions by nodding or shaking his head. He is able to demonstrate complete orientation even when asked questions such as "are we currently in [place], [place]?" he is able to correctly answer. It is noted the patient states yes to this question at first, but when it was noted all other questions were answered correctly with no difficulty, clinician asked again: he correctly answered no to [facility], and yes to [facility]. Patient indicated he just heard [place] for place and started to nod not listening to rest of question. Patient confirms he understands his medical provider has been aggressively treating his medical concerns. Patient is asked if he is able to show blinking his eyes once (patient blinks once) patient is asked if he can blink his eyes twice (the patient is able to blink his eyes twice in a row with no difficulty). Patient is asked to blink once if he would like his provider to continue with aggressive treatment or blink twice if he wants his provider to focus only on pain management. Patient blinks twice indicating he would like only pain management. Clinician again asked to confirm patient's wishes which he again confirms pain management only. Patient is asked if he is currently in pain which he shakes his head indicating no. Clinician confirmed with attending nurse she witnessed the patient's responses. <KAIDEN GARCIA - Last Filed: 07/23/20 15:41> Psych Note - Psych Note Psych Note: Spoke with Ms. Simmons who indicated that based on Patient's responses, it was clear he comprehended questions of orientation, could follow one and two step commands (blink your eyes once for yes, twice for no). More importantly, the Patient used both the shaking of his head and the blinking of eyes to answer questions congruently suggesting he understood the questions being asked. As such, his response indicating his wish for pain management only versus continuation of aggressive treatment is considered valid.
[2020-07-21] MEDS: MIRTAZAPINE 15 MG TABLET NG SCH (22:28)
[2020-07-21] MEDS: ATORVASTATIN CALCIUM 40 MG TABLET NG SCH (22:28)
[2020-07-22] MEDS: INSULIN REG, HUMAN 100 UNIT/ML 3 ML VIAL (PYX) SUBCUT SCH ×4 (00:30→18:27)
[2020-07-22] MEDS ORDERED: HEPARIN SOD (PORCINE) 1,000 UNIT/ML 10 ML VIAL IV PRN (05:00)
[2020-07-22 05:33] LABS: HEMATOCRIT 29.9 % (37.9-51.0); HEMOGLOBIN 9.9 g/dL (13.5-17.0); MEAN CORPUSCULAR HEMOGLOBIN 28.7 pg (27.0-33.4); MEAN CORPUSCULAR VOLUME 87 fl (80-97); RED BLOOD COUNT 3.43 10^6/uL (4.35-5.55); RED CELL DISTRIBUTION WIDTH 17.6 % (11.5-14.0); WHITE BLOOD COUNT 21.9 10^3/uL (4.0-10.5)
[2020-07-22 05:50] LABS: ALBUMIN 1.9 g/dL (3.5-5.0); ALKALINE PHOSPHATASE 157 U/L (38-126); ANION GAP 7 (5-19); ASPARTATE AMINO TRANSFERASE 338 U/L (17-59); BILIRUBIN,TOTAL 1.5 mg/dL (0.2-1.3); BLOOD UREA NITROGEN 56 mg/dL (7-20); CARBON DIOXIDE 24 mmol/L (22-30); CHLORIDE 101 mmol/L (98-107); GLUCOSE 100 mg/dL (75-110); POTASSIUM 4.8 mmol/L (3.6-5.0)
[2020-07-22 06:02] LABS: PLATELET COUNT 43 10^3/uL (150-450)
[2020-07-22 06:03] LABS: ABSOLUTE LYMPHOCYTES# (MANUAL) 0.4 10^3/uL (0.5-4.7); ABSOLUTE MONOCYTES # (MANUAL) 0.4 10^3/uL (0.1-1.4); ANISOCYTOSIS 2+; BAND NEUTROPHILS % (MANUAL) 5 % (3-5); BASOPHILS % (MANUAL) 0 % (0-2); BURR CELLS 1+; EOSINOPHILS % (MANUAL) 0 % (0-6); LYMPHOCYTES % (MANUAL) 2 % (13-45); MONOCYTES % (MANUAL) 2 % (3-13); PLATELET COMMENT DECREASED; POLYCHROMASIA 1+; SEGMENTED NEUTROPHILS % (MAN) 91 % (42-78); TARGET CELLS 1+; TOTAL CELLS COUNTED 100
[2020-07-22] MEDS: NORMAL SALINE 100 ML with PANTOPRAZOLE SODIUM 80 MG IV PRN ×4 (07:12→17:58)
[2020-07-22] MEDS: DEXTROSE 5%-NORMAL SALINE 1,000 ML IV PRN (07:12)
[2020-07-22] MEDS: DOCUSATE SODIUM 100 MG/10 ML UDC NG SCH ×2 (09:27→17:57)
[2020-07-22] MEDS: ZINC SULFATE 220 MG CAPSULE NG SCH (09:27)
[2020-07-22] MEDS: MIDODRINE HCL 5 MG TABLET NG SCH ×3 (09:28→17:57)
[2020-07-22] MEDS: HYDROCORTISONE SOD SUCCINATE INJ/PF 100 MG/2 ML SDV IV SCH ×2 (09:28→21:50)
[2020-07-22] MEDS: ASPIRIN 81 MG TABLET, CHEWABLE NG SCH (09:30)
[2020-07-22] MEDS: ASCORBIC ACID 500 MG TABLET NG SCH ×2 (09:30→17:57)
[2020-07-22] MEDS: DEXMEDETOMIDINE IN 0.9 % NACL 400 MCG/100 ML RTUPB IV PRN ×2 (09:32→20:06)
[2020-07-22 09:54] LABS: ARTERIAL BLOOD BASE EXCESS -2.7 mmol/L; ARTERIAL BLOOD H2CO3 0.96 mmol/L (1.05-1.35); ARTERIAL BLOOD HCO3 20.9 mmol/L (20-24); ARTERIAL BLOOD O2 SATURATION 95.7 % (94-98); ARTERIAL BLOOD PH 7.43 (7.35-7.45); ARTERIAL BLOOD PO2 75.8 mmHg (80-100); ARTERIAL BLOOD TOTAL CO2 21.9 mmol/L (23-27)
[2020-07-22 09:55] LABS: ARTERIAL BLOOD FIO2 35%
[2020-07-22] MEDS ORDERED: DIGOXIN INJ 0.5 MG/2 ML AMPULE IV SCH ×2 (10:00)
--- NOTE | 2020-07-22 10:42 | RADIOLOGY REPORT (SQ) ---
EXAM DESCRIPTION: CHEST SINGLE VIEW IMAGES COMPLETED DATE/TIME: 07/22/2020 10:30 am REASON FOR STUDY: respiratory failure COMPARISON: AP view of the chest from 07/18/2020 P EXAM PARAMETERS: NUMBER OF VIEWS: One view. TECHNIQUE: An AP view of the chest was obtained. RADIATION DOSE: NA LIMITATIONS: None. FINDINGS: LUNGS AND PLEURA: Unchanged radiographic appearance of the lungs and pleura. MEDIASTINUM AND HILAR STRUCTURES: Stable mediastinal and hilar contours. HEART AND VASCULAR STRUCTURES: Stable cardiac silhouette. BONES: No acute findings. HARDWARE: The tip of the endotracheal tube projects 4.1 cm above the koko. The tip of the right IJ central venous catheter and left IJ tunneled HD catheter project at the level of the cavoatrial junc tion. The tip of the endotracheal tube projects past the gastroesophageal junction and outside the f ield of view of the radiograph. There are sternotomy wires, mediastinal surgical clips and an implan table loop recorder in place. OTHER: No other finding. IMPRESSION: Tubes and lines as above. Otherwise unchanged radiographic appearance of the chest. TECHNICAL DOCUMENTATION: JOB ID: [id number] 2010 [employer]- All Rights Reserved Reading location - IP/workstation name: [email or web address]
--- NOTE | 2020-07-22 12:57 | PDOC CRITICAL CARE PROG REPORT ---
General Date:: 07/08/20 ICU Day:: 14 Ventilator Day:: 14 Hospital Day:: 45 Resuscitation Status: Full Code Events in the past 12 to 24 Hours:: Not able to make much progress on ventilator. The patient has been in the hospital over 40 days. He was able to do a few hours on SBT this AM but than became tired and tachypnei c and had to go back on a rate The patient is weak and debilitated. It appears that he will need trach and PEG. However, will need to repeat Covid test before moving forward. Patient getting dialyzed tiw. he has very bad scrotal edema. His bowels are not moving and has apparently had a lot of difficulty with his tube feeds . We are getting flat and upright abdominal x ray. May have an element of gastroparesis. 07/19 The patient remains on the ventilator As noted he did do an SBT yesterday. We repeated his Covid test and it remains positive. It is unlikely we can get a surgeon to trach him while he is still Covid +. His bp is steady. he did have a bvrief episode df bradycardia earlier for reao sns unclear. We tried to interrogate the pacer but were unable perhops because it is a newer model. We have restarted tube feeds and started reglan for a possible motility issue.His potassium was borderlien low so he is getting replacement. 07/19 5:45PM the patient developed a sudden onset of a tachyarrhythmia. It was hard to discern whether supraventricular vs. ventricular. The patient had a heart rate in the 200 range . On closer examination there appeared to be deep ST depressions with flutter of P waves buried within. art a certain point the rhythm became quite irregular suggesting fib -flutter at 140-160. The patient was given Cardizem 10 mg with reversion to a sinus tach alternating with a paced rhythm. The patient will be placed on a crdizem drip for now. Has maintained his bp throughout these several minutes. 07/20 The patient is fairly discouraged. he may want to change goals of care. we have asked Dr. Guan to see him. he did have some bleeding last nght. He had coffee ground material from above and than some melena. His Hb dropped to 6.6 from 9.2. We are transfusing thepatient 2 units PRBCs. Gi was consulted. i would anticipate UGI endoscopy today. No further tachyarrhtymias. Tereza palced on hold. 07/21 The patient was set to have an EGD this AM. he suddenly got very tachycardic as he did 2 days ago whith what appears to be arapid Atrial fib with rate in excess of 200. The patient wa s given 10mg Cardizemand paced on a drip at 10mg/hr.the procedure was than aborted.. The patient dropped his Bp transiently. He looks rather poorly at resent. It does nota ppear that he is likely to suvive very long with his myriad issue. Following transfusin his Hb is uo 10.7 Of course we cannot anticoagualte him given the recent gi bleed. 07/22 THe patient is still alert and appears relatively comfortable.His niece, Mony visited today. She is willing to standby whatever decision the patient makes regarding his care. She went on to say that he has been hospitalized much of the previous 9 months. He undewent valve surgery last October and since than his life has been a string of hospitalizations. The patient is actually doing well on a SBT presently. His heart rate is fairly well controlled presenlty. based on recent evenets it appears to me athat thepatient likely has a siock sinus syndrome. Reason for ICU Addmission:: Post CPR resuscitation; endotracheally intubated, on HD. Physical Exam Vital Signs: Temp Pulse Resp BP Pulse Ox 97.3 F 80 19 94/66 L 99 07/22/20 12:09 07/22/20 10:00 07/22/20 12:09 07/22/20 12:09 07/22/20 12:09 Intake & Output 07/21/20 07/22/20 07/23/20 06:59 06:59 06:59 Intake Total 2021 1537 100 Output Total 1650 10 0 Balance 372 1527 100 Weight 68.9 kg 68.3 kg Weight/Height Weight 68.3 kg Height 5 ft 4 in General appearance: PRESENT: mild distress, thin Head exam: PRESENT: atraumatic, normocephalic Eye exam: PRESENT: conjunctiva pink, EOMI, PERRLA. ABSENT: scleral icterus Ear exam: PRESENT: normal external ear exam Mouth exam: PRESENT: moist Neck exam: ABSENT: lymphadenopathy Respiratory exam: PRESENT: accessory muscle use Pulses: PRESENT: normal dorsalis pedis pul GI/Abdominal exam: PRESENT: soft. ABSENT: ascites, tenderness Neurological exam: PRESENT: alert, awake, oriented to person, oriented to time, oriented to situation, other - The patient remains profoundly weakand relies on others to turn , sit up etc., . 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 Laboratory/Radiographs Laboratory Results: 07/22/20 04:50 07/22/20 04:50 07/22/20 07/22/20 07/22/20 04:50 04:50 08:28 WBC 21.9 H RBC 3.43 L Hgb 9.9 L Hct 29.9 L MCV 87 MCH 28.7 MCHC 33.0 RDW 17.6 H Plt Count 43 L Seg Neutrophils % Not Reportable Carbonic Acid 0.96 L HCO3/H2CO3 Ratio 21:1 ABG pH 7.43 ABG pCO2 32.0 L ABG pO2 75.8 L ABG HCO3 20.9 ABG O2 Saturation 95.7 ABG Base Excess -2.7 FiO2 35% Sodium 132.3 L Potassium 4.8 Chloride 101 Carbon Dioxide 24 Anion Gap 7 BUN 56 H Creatinine 2.04 H Est GFR ( Amer) 41 L Glucose 100 Calcium 7.0 L* Total Bilirubin 1.5 H AST 338 H Alkaline Phosphatase 157 H Total Protein 4.0 L Albumin 1.9 L 06/07/20 06/07/20 06/07/20 12:24 12:24 15:08 Creatine Kinase 34 L CK-MB (CK-2) Troponin I 0.035 0.041 NT-Pro-B Natriuret Pep 06/07/20 06/07/20 06/08/20 16:45 22:01 05:25 Creatine Kinase 35 L 40 L 35 L CK-MB (CK-2) Troponin I NT-Pro-B Natriuret Pep 06/08/20 06/29/20 06/29/20 05:25 07:30 07:30 Creatine Kinase 27 L CK-MB (CK-2) 1.04 Troponin I 0.028 NT-Pro-B Natriuret Pep 06320 H 06/29/20 06/29/20 06/29/20 15:11 15:11 20:37 Creatine Kinase 39 L CK-MB (CK-2) 2.04 Troponin I 0.142 0.166 NT-Pro-B Natriuret Pep 06/30/20 07/08/20 07/08/20 05:00 14:20 14:20 Creatine Kinase 51 L CK-MB (CK-2) 1.95 Troponin I 0.119 0.105 NT-Pro-B Natriuret Pep 07/08/20 07/11/20 07/14/20 14:20 03:45 05:50 Creatine Kinase CK-MB (CK-2) Troponin I NT-Pro-B Natriuret Pep 79095 H 80970 H 8910 H Impressions: Head CT 06/07/20 13:02 IMPRESSION: Stable CT of the brain with bifrontal encephalomalacia. No acute intracranial event. EVIDENCE OF ACUTE STROKE: NO. Thoracentesis Ultrasound 06/08/20 00:00 IMPRESSION: SUCCESSFUL THORACENTESIS AND CHEST TUBE PLACEMENT USING ULTRASOUND GUIDANCE. Abdomen/Pelvis CT 06/17/20 00:00 IMPRESSION: 1. Small bowel obstruction with transition point in the left mid abdomen. This may be a high-grade partial obstruction. Distal small bowel and colon are decompressed. 2. Marked urinary bladder distention, suggestive of bladder outlet obstruction. Clinical correlation is recommended. 3. Loculated right hydropneumothorax and small left pleural effusion, not significantly changed. Compressive atelectasis at the lung bases. 4. Moderate ascites, slightly decreased from previous examination. 5. Mildly nodular contour of the liver, nonspecific however could indicate underlying hepatic cirrhosis. Clinical correlation is with recommended. 6. Diffuse subcutaneous edema, suggestive of fluid overload. 7. Colonic diverticulosis without evidence of diverticulitis. KUB X-Ray 06/22/20 00:00 IMPRESSION: Partial small bowel obstruction Chest CT 06/25/20 00:00 IMPRESSION: Loculated right hydropneumothorax which appears similar at the right lung base from the abdominal CT dated 06/17/2020. Slight interval increase in left pleural effusion. Moderate ascites with a similar nonspecific nodular hepatic contour and slight heterogeneous hepatic attenuation. Paracentesis Ultrasound 07/01/20 08:26 IMPRESSION: SUCCESSFUL ULTRASOUND GUIDED PARACENTESIS. Chest X-Ray 07/22/20 07:41 IMPRESSION: Tubes and lines as above. Otherwise unchanged radiographic appearance of the chest. Assessment and Plan - Diagnosis (1) Acute hypoxemic respiratory failure due to COVID-19 Is this a current diagnosis for this admission?: Yes (2) Acute systolic heart failure Is this a current diagnosis for this admission?: Yes Plan: 07/20 the patient does not appear to be in heart failure at this time. 07/22 His CXR shows bilaterla effusions. his last proBNP of sveral days ago was little lower than it had been. (3) Atrial fibrillation Qualifiers: Atrial fibrillation type: persistent (not longstanding) Qualified Code(s): I48.19 - Other persistent atrial fibrillation; I48.1 - Persistent atrial fibrillation Is this a current diagnosis for this admission?: Yes Plan: Paced The patient has been on Metoprolol for hR control but it has recently been stopped for heart rate <90 given hispersistent hypotension. The patient is on digoxin as well. 07/19 heart rate is well controlled at present. had a single episode dof bradycardia lasting several seconds earlier. His digoxin level is in the therapeutic range 07/20 The patient appears to be a in a paced rhythm in the 80s. No further tachyarrhythmias. Will hold the cardizem drip for now 07/21 Going in and out of rapid Atrial fib. Back onIV Cardizem 07/22 Has had multiple scary episodes where hs heart rate will climb to iover 200. It is hard to differentiate V tach from a suprvent rhythm but Vijay guzman and moira iot has been rapid Atrial fib. I have restarted his metorolol at 0.125 bid. vijay roca i will change digxinonce again to qd. ( I had nmade it 5 days a week). (4) COPD (chronic obstructive pulmonary disease) Qualifiers: COPD type: unspecified COPD Qualified Code(s): J44.9 - Chronic obstructive pulmonary disease, unspecified Is this a current diagnosis for this admission?: Yes Plan: There are multiple reasons for difficult weanijng. Amongst these are thepatient's pooor cardiovascualr statuis , his COPD and poor nutriotional status. CXR shows stable bibasilar pulmonary densities. (5) Protein-energy malnutrition Qualifiers: Protein-calorie malnutrition severity: mild Qualified Code(s): E44.1 - Mild protein-calorie malnutrition Is this a current diagnosis for this admission?: Yes Plan: The patient is malnourished in the wake of his prolonged hospitalization. We have had to hold his feedings beciuse of vomiting and high residuals lately. Will be imaging abdomen . Considere adding reglan to regimen as well. (6) CKD (chronic kidney disease) requiring chronic dialysis Is this a current diagnosis for this admission?: Yes Plan: The patient continues with doiaysis tiw. 07/20 he is getting dialyzed today. (7) UGIB (upper gastrointestinal bleed) Is this a current diagnosis for this admission?: Yes Plan: His Hb is 10.7,. he does not appear to have melena at this time EGD has been put on hold given his cardiac issues. (8) Hypotension Qualifiers: Hypotension type: idiopathic hypotension Qualified Code(s): I95.0 - Idiopathic hypotension Is this a current diagnosis for this admission?: Yes (9) Abnormal LFTs (liver function tests) Is this a current diagnosis for this admission?: Yes Plan: His LFTs are a little abnormal;. Unclear if this represents passive liver congestion or a med relatred problem Will continue to monitor I ahhve stoped his Liptitor for the time being as well. (10) Code status needs review Is this a current diagnosis for this admission?: Yes Plan: Unclear if thepatient may wish to revise his code status. i will try to speak with him today in regards to that. Critical Time Critical Time (minutes): 35 Level of Care: ICU -: 1. The care of a critical patient is a dynamic process. This note is a shared services representative synopsis but static in nature. The timeframe for treatments given in order is not necessarily the actual time these treatments may have been done. 2. This patient requires critical care secondary to ongoing requirements for therapy not offered or safe outside the critical care environment. Transfer to a lower level of care will result in altered life or limb morbidity and mortality. 3. Multidisciplinary rounds completed. 4. ABCDE bundle addressed.
[2020-07-22] MEDS: METOPROLOL TARTRATE 25 MG TABLET NG SCH ×2 (14:25→21:50)
[2020-07-22] MEDS: METOCLOPRAMIDE HCL 10 MG TABLET NG SCH ×2 (14:25→17:19)
--- NOTE | 2020-07-22 14:44 | PDOC PROGRESS REPORT ---
Subjective Progress Note for:: 07/22/20 Reason For Visit: Patient seen in the ICU today. Remains intubated. Patient transitions to intermittent paroxysmal rapid tachyarrhythmias and is being treated with diltiazem/metoprolol intravenously. Besides that is also on digoxin IV. Patient is not making much of urine. Currently undergoing dialysis but blood pressures is tenuous which makes it difficult to extract fluid. Labs and medications were reviewed. Dialysis orders were reviewed with the treating dialysis nurse. Physical Exam Vital Signs: Temp Pulse Resp BP Pulse Ox 97.0 F 80 13 104/69 97 07/22/20 14:08 07/22/20 10:00 07/22/20 14:08 07/22/20 14:08 07/22/20 14:08 Intake & Output 07/21/20 07/22/20 07/23/20 06:59 06:59 06:59 Intake Total 2021 1537 100 Output Total 1650 10 0 Balance 372 1527 100 Weight 68.9 kg 68.3 kg Exam: Remains intubated and sedated. Cardiovascular exam: PRESENT: +S1, +S2 GI/Abdominal exam: PRESENT: ascites, distended Extremities exam: PRESENT: +1 edema - As part of anasarca Results Laboratory Results: 07/22/20 04:50 07/22/20 04:50 07/22/20 07/22/20 07/22/20 04:50 04:50 08:28 WBC 21.9 H RBC 3.43 L Hgb 9.9 L Hct 29.9 L MCV 87 MCH 28.7 MCHC 33.0 RDW 17.6 H Plt Count 43 L Seg Neutrophils % Not Reportable Carbonic Acid 0.96 L HCO3/H2CO3 Ratio 21:1 ABG pH 7.43 ABG pCO2 32.0 L ABG pO2 75.8 L ABG HCO3 20.9 ABG O2 Saturation 95.7 ABG Base Excess -2.7 FiO2 35% Sodium 132.3 L Potassium 4.8 Chloride 101 Carbon Dioxide 24 Anion Gap 7 BUN 56 H Creatinine 2.04 H Est GFR ( Amer) 41 L Glucose 100 Calcium 7.0 L* Total Bilirubin 1.5 H AST 338 H Alkaline Phosphatase 157 H Total Protein 4.0 L Albumin 1.9 L 06/07/20 06/07/20 06/07/20 12:24 12:24 15:08 Creatine Kinase 34 L CK-MB (CK-2) Troponin I 0.035 0.041 NT-Pro-B Natriuret Pep 06/07/20 06/07/20 06/08/20 16:45 22:01 05:25 Creatine Kinase 35 L 40 L 35 L CK-MB (CK-2) Troponin I NT-Pro-B Natriuret Pep 06/08/20 06/29/20 06/29/20 05:25 07:30 07:30 Creatine Kinase 27 L CK-MB (CK-2) 1.04 Troponin I 0.028 NT-Pro-B Natriuret Pep 24960 H 06/29/20 06/29/20 06/29/20 15:11 15:11 20:37 Creatine Kinase 39 L CK-MB (CK-2) 2.04 Troponin I 0.142 0.166 NT-Pro-B Natriuret Pep 06/30/20 07/08/20 07/08/20 05:00 14:20 14:20 Creatine Kinase 51 L CK-MB (CK-2) 1.95 Troponin I 0.119 0.105 NT-Pro-B Natriuret Pep 07/08/20 07/11/20 07/14/20 14:20 03:45 05:50 Creatine Kinase CK-MB (CK-2) Troponin I NT-Pro-B Natriuret Pep 72898 H 47908 H 8910 H Impressions: Head CT 06/07/20 13:02 IMPRESSION: Stable CT of the brain with bifrontal encephalomalacia. No acute intracranial event. EVIDENCE OF ACUTE STROKE: NO. Thoracentesis Ultrasound 06/08/20 00:00 IMPRESSION: SUCCESSFUL THORACENTESIS AND CHEST TUBE PLACEMENT USING ULTRASOUND GUIDANCE. Abdomen/Pelvis CT 06/17/20 00:00 IMPRESSION: 1. Small bowel obstruction with transition point in the left mid abdomen. This may be a high-grade partial obstruction. Distal small bowel and colon are decompressed. 2. Marked urinary bladder distention, suggestive of bladder outlet obstruction. Clinical correlation is recommended. 3. Loculated right hydropneumothorax and small left pleural effusion, not significantly changed. Compressive atelectasis at the lung bases. 4. Moderate ascites, slightly decreased from previous examination. 5. Mildly nodular contour of the liver, nonspecific however could indicate underlying hepatic cirrhosis. Clinical correlation is with recommended. 6. Diffuse subcutaneous edema, suggestive of fluid overload. 7. Colonic diverticulosis without evidence of diverticulitis. KUB X-Ray 06/22/20 00:00 IMPRESSION: Partial small bowel obstruction Chest CT 06/25/20 00:00 IMPRESSION: Loculated right hydropneumothorax which appears similar at the right lung base from the abdominal CT dated 06/17/2020. Slight interval increase in left pleural effusion. Moderate ascites with a similar nonspecific nodular hepatic contour and slight heterogeneous hepatic attenuation. Paracentesis Ultrasound 07/01/20 08:26 IMPRESSION: SUCCESSFUL ULTRASOUND GUIDED PARACENTESIS. Chest X-Ray 07/22/20 07:41 IMPRESSION: Tubes and lines as above. Otherwise unchanged radiographic appearance of the chest. Assessment & Plan - Diagnosis (1) Acute hypoxemic respiratory failure due to COVID-19 Is this a current diagnosis for this admission?: Yes Plan: Currently intubated. (2) ESRD (end stage renal disease) on dialysis Is this a current diagnosis for this admission?: Yes Plan: Patient currently undergoing dialysis through an IJ PermCath. Plan to remove 1-2 L as tolerated.However it is going need to be difficult given his tenuous blood pressure . Dialysis orders were reviewed with treating dialysis nurse.. (3) Atrial fibrillation Qualifiers: Atrial fibrillation type: persistent (not longstanding) Qualified Code(s): I48.19 - Other persistent atrial fibrillation; I48.1 - Persistent atrial fibrillation Is this a current diagnosis for this admission?: Yes Plan: Patient in and out of rapid A. fib/tachyarrhythmia. Patient had to be given IV Cardizem yesterday.Question if his central line as well as dialysis catheter at the sinoatrial junction might be irritating the S-A node as a causative factor for his tachyarrhythmias. One only way to determine if this is the cause would be to remove both the lines and then place a temporary dialysis catheter in his groin on one side and a temporary central line in his other groin. Caution with use of digoxin in this ESRD patient and would recommend periodic checking of trough digoxin levels. (4) CHF (congestive heart failure) Qualifiers: Heart failure type: combined systolic and diastolic Heart failure chronicity: chronic Qualified Code(s): I50.42 - Chronic combined systolic (congestive) and diastolic (congestive) heart failure Is this a current diagnosis for this admission?: Yes Plan: Status quo. Background of dilated cardiomyopathy being managed by hospitalist and cardiology. (5) Ventricular tachyarrhythmia Is this a current diagnosis for this admission?: Yes Plan: Status post cardioversion and stable.Please see my notes accompanying atrial fibrillation for possibilities. (6) Bilateral pleural effusion Plan: Has had thoracentesis followed by right chest tube placement which has now been removed. He has now undergone pleurodesis. (7) Hypotension Qualifiers: Hypotension type: idiopathic hypotension Qualified Code(s): I95.0 - Idi opathic hypotension Is this a current diagnosis for this admission?: Yes Plan: Patient on Midodrin /pressors but blood pressure still tenuous. Likely combination of congestive heart failure/septic shock. We did check lactic acid/d-dimer as well given his current COVID STATUS on 07/20 and they are both elevated. I also note that his COVID serology was positive on 2 separate occasions last one was 13 days after the first 1. Overall poor prognosis. Monitor. (8) Hyponatremia Is this a current diagnosis for this admission?: Yes Plan: Dilutional. See response to some fluid removal. Monitor. (9) Acute decompensated heart failure Is this a current diagnosis for this admission?: Yes Plan: In the background of covid pneumonia/dilated cardiomyopathy. (10) Dilated cardiomyopathy Is this a current diagnosis for this admission?: Yes Plan: /Congestive heart failure. Being managed by hospitalist/cardiology. (11) Protein-energy malnutrition Qualifiers: Protein-calorie malnutrition severity: mild Qualified Code(s): E44.1 - Mild protein-calorie malnutrition Is this a current diagnosis for this admission?: Yes Plan: Adding to third spacing. Trial of albumin infusions/TPN. (12) Anemia Plan: Multifactorial including anemia of chronic kidney disease. However currently I am holding off on erythropoietin given the thrombogenicity of his COVID status. He was transfused on 07/20.
[2020-07-22] MEDS: DIGOXIN INJ 0.5 MG/2 ML AMPULE IV SCH (16:20)
[2020-07-22] MEDS ORDERED: DILTIAZEM HCL INJ 25 MG/5 ML VIAL ONE (17:46)
[2020-07-22] MEDS: DILTIAZEM HCL/D5W 125 MG/125 ML RTUINJ IV PRN (17:48)
[2020-07-22] MEDS: CALCITRIOL 1 MCG/ML ORAL SOLN 15 ML PO SCH (17:58)
[2020-07-22] MEDS ORDERED: DILTIAZEM HCL INJ 25 MG/5 ML VIAL IV ONE (18:00)
[2020-07-22] MEDS: FENTANYL CITRATE INJ/PF 100 MCG/2 ML AMPUL IV PRN (20:07)
[2020-07-22 21:00] LABS: PHOSPHORUS 5.2 mg/dL (2.5-4.5)
[2020-07-22] MEDS: MIRTAZAPINE 15 MG TABLET NG SCH (21:50)
[2020-07-23] MEDS: INSULIN REG, HUMAN 100 UNIT/ML 3 ML VIAL (PYX) SUBCUT SCH ×4 (00:40→17:54)
[2020-07-23] MEDS: FENTANYL CITRATE INJ/PF 100 MCG/2 ML AMPUL IV PRN (02:16)
[2020-07-23] MEDS: NORMAL SALINE 100 ML with PANTOPRAZOLE SODIUM 80 MG IV PRN ×4 (03:21→13:30)
[2020-07-23] MEDS: DEXMEDETOMIDINE IN 0.9 % NACL 400 MCG/100 ML RTUPB IV PRN ×2 (03:21→14:51)
--- NOTE | 2020-07-23 03:51 | Operative Report ---
Bedside Procedure - History of Present Illness History of Present Illness: Pavel Lepe 59-year-old male past medical history of CHF ejection fraction of 20 to 25%, status post leadless permanent pacemaker, atrial fibrillation on Coumadin, recurrent pleural effusion and pneumothorax, mitral valve replacement at [facility] which was complicated patient had to stay in the hospital for 4 months. Postoperatively patient had a PEA cardiac arrest and had renal failure and was discharged on hemodialysis was brought to ED by EMS after being found unresponsive and noted to be in V. tach, was given a shock of 100 J successful. Indication for Procedure: Venous access, TPN Date: 07/08/20 Provider: ROD BARCENAS - Central Line Right Internal jugular Time completed: 14:00 Consent obtained: Yes Central line pre-insertion: Sterile PPE donned, Betadine prep applied Central line lumen type: Triple Anesthetic type: 1% Lidocaine Ultrasound guided: Yes Line secured with sutures: Yes Central line post-insertion: Blood return from lumens, Biopatch applied, Sutured, Position confirmed w/ CXR Complications: No
[2020-07-23] MEDS: DEXTROSE 5%-NORMAL SALINE 1,000 ML IV PRN (04:48)
[2020-07-23 05:09] LABS: HEMATOCRIT 27.2 % (37.9-51.0); HEMOGLOBIN 9.1 g/dL (13.5-17.0); MEAN CORPUSCULAR HEMOGLOBIN 29.4 pg (27.0-33.4); MEAN CORPUSCULAR HGB CONC 33.5 g/dL (32.0-36.0); MEAN CORPUSCULAR VOLUME 88 fl (80-97); RED CELL DISTRIBUTION WIDTH 17.9 % (11.5-14.0); WHITE BLOOD COUNT 17.4 10^3/uL (4.0-10.5)
[2020-07-23 06:26] LABS: PLATELET COUNT 47 10^3/uL (150-450)
[2020-07-23 06:28] LABS: ABSOLUTE LYMPHOCYTES# (MANUAL) 0.3 10^3/uL (0.5-4.7); ABSOLUTE MONOCYTES # (MANUAL) 0.2 10^3/uL (0.1-1.4); BASOPHILS % (MANUAL) 0 % (0-2); EOSINOPHILS % (MANUAL) 0 % (0-6); LYMPHOCYTES % (MANUAL) 2 % (13-45); MONOCYTES % (MANUAL) 1 % (3-13); PLATELET COMMENT DECREASED; SEGMENTED NEUTROPHILS % (MAN) 97 % (42-78); TOTAL CELLS COUNTED 100
[2020-07-23 06:29] LABS: ANISOCYTOSIS 1+
[2020-07-23 06:30] LABS: BURR CELLS 1+; OVALOCYTES SLIGHT; SCHISTOCYTES SLIGHT
[2020-07-23 06:31] LABS: HYPERSEGMENTED NEUTROPHILS PRESENT; POLYCHROMASIA SLIGHT; TARGET CELLS SLIGHT
[2020-07-23] MEDS: ZINC SULFATE 220 MG CAPSULE NG SCH (10:38)
[2020-07-23] MEDS: METOCLOPRAMIDE HCL 10 MG TABLET NG SCH ×3 (10:38→17:54)
[2020-07-23] MEDS: ASCORBIC ACID 500 MG TABLET NG SCH ×2 (10:38→17:55)
[2020-07-23] MEDS: DOCUSATE SODIUM 100 MG/10 ML UDC NG SCH ×2 (10:39→17:54)
[2020-07-23] MEDS: MIDODRINE HCL 5 MG TABLET NG SCH ×3 (10:39→19:40)
[2020-07-23] MEDS: ASPIRIN 81 MG TABLET, CHEWABLE NG SCH (10:39)
[2020-07-23] MEDS: DIGOXIN INJ 0.5 MG/2 ML AMPULE IV SCH (10:40)
[2020-07-23] MEDS: METOPROLOL TARTRATE 25 MG TABLET NG SCH ×2 (10:41→22:13)
[2020-07-23] MEDS: HYDROCORTISONE SOD SUCCINATE INJ/PF 100 MG/2 ML SDV IV SCH ×2 (10:42→22:13)
[2020-07-23] MEDS: CALCITRIOL 1 MCG/ML ORAL SOLN 15 ML PO SCH (10:43)
--- NOTE | 2020-07-23 11:06 | PDOC CRITICAL CARE PROG REPORT ---
General Date:: 07/23/20 ICU Day:: 15 Ventilator Day:: 15 Hospital Day:: 46 Resuscitation Status: Full Code Events in the past 12 to 24 Hours:: Not able to make much progress on ventilator. The patient has been in the hospital over 40 days. He was able to do a few hours on SBT this AM but than became tired and tachypnei c and had to go back on a rate The patient is weak and debilitated. It appears that he will need trach and PEG. However, will need to repeat Covid test before moving forward. Patient getting dialyzed tiw. he has very bad scrotal edema. His bowels are not moving and has apparently had a lot of difficulty with his tube feeds . We are getting flat and upright abdominal x ray. May have an element of gastroparesis. 07/19 The patient remains on the ventilator As noted he did do an SBT yesterday. We repeated his Covid test and it remains positive. It is unlikely we can get a surgeon to trach him while he is still Covid +. His bp is steady. he did have a bvrief episode df bradycardia earlier for reao sns unclear. We tried to interrogate the pacer but were unable perhops because it is a newer model. We have restarted tube feeds and started reglan for a possible motility issue.His potassium was borderlien low so he is getting replacement. 07/19 5:45PM the patient developed a sudden onset of a tachyarrhythmia. It was hard to discern whether supraventricular vs. ventricular. The patient had a heart rate in the 200 range . On closer examination there appeared to be deep ST depressions with flutter of P waves buried within. art a certain point the rhythm became quite irregular suggesting fib -flutter at 140-160. The patient was given Cardizem 10 mg with reversion to a sinus tach alternating with a paced rhythm. The patient will be placed on a crdizem drip for now. Has maintained his bp throughout these several minutes. 07/20 The patient is fairly discouraged. he may want to change goals of care. we have asked Dr. Guan to see him. he did have some bleeding last nght. He had coffee ground material from above and than some melena. His Hb dropped to 6.6 from 9.2. We are transfusing thepatient 2 units PRBCs. Gi was consulted. i would anticipate UGI endoscopy today. No further tachyarrhthymias. Tereza palced on hold. 07/21 The patient was set to have an EGD this AM. he suddenly got very tachycardic as he did 2 days ago whith what appears to be arapid Atrial fib with rate in excess of 200. The patient wa s given 10mg Cardizemand paced on a drip at 10mg/hr.the procedure was than aborted.. The patient dropped his Bp transiently. He looks rather poorly at resent. It does nota ppear that he is likely to suvive very long with his myriad issue. Following transfusin his Hb is uo 10.7 Of course we cannot anticoagualte him given the recent gi bleed. 07/22 THe patient is still alert and appears relatively comfortable.His niece, Mony visited today. She is willing to standby whatever decision the patient makes regarding his care. She went on to say that he has been hospitalized much of the previous 9 months. He underwent valve surgery last October and since than his life has been a string of hospitalizations. The patient is actually doing well on a SBT presently. His heart rate is fairly well controlled presenlty. based on recent evenets it appears to me athat the patient likely has a siock sinus syndrome. 07/23 The atient is arousable and responsive. Little change in overalll status. Had run of atrial fib late yesterday afternoon. To some extent givent hsi instability I have been reluctant to extuabte the patient particualrly since he wants to be reitubsated should something bad arise. Reason for ICU Addmission:: Post CPR resuscitation; endotracheally intubated, on HD. Physical Exam Vital Signs: Temp Pulse Resp BP Pulse Ox 97.7 F 83 16 86/61 L 96 07/23/20 08:00 07/23/20 10:00 07/23/20 10:00 07/23/20 10:07/23/20 10:00 Intake & Output 07/22/20 07/23/20 07/24/20 06:59 06:59 06:59 Intake Total 1537 1540 Output Total 10 1125 Balance 1527 415 Weight 68.3 kg 66.8 kg Weight/Height Weight 66.8 kg Height 5 ft 4 in General appearance: PRESENT: disheveled, thin Exam: The patient is terribly malnourished and cachectic. He appears profoundly weak as well. He appears quite depressed as welll. Head exam: PRESENT: normocephalic Eye exam: PRESENT: EOMI, PERRLA Ear exam: PRESENT: normal external ear exam Mouth exam: PRESENT: moist Respiratory exam: PRESENT: clear to auscultation [place] Cardiovascular exam: PRESENT: irregular rhythm Pulses: PRESENT: normal femoral pulses GI/Abdominal exam: PRESENT: soft. ABSENT: tenderness Rectal exam: PRESENT: deferred. ABSENT: black stool Gentrourinary exam: ABSENT: ecchymosis, lesions Extremities exam: ABSENT: calf tenderness, clubbing, joint swelling, pedal edema Musculoskeletal exam: PRESENT: normal inspection Neurological exam: PRESENT: alert, altered, oriented to person, oriented to p lace Laboratory/Radiographs Laboratory Results: 07/23/20 04:51 07/22/20 04:50 07/22/20 07/23/20 07/23/20 20:08 04:51 04:51 WBC 17.4 H RBC 3.10 L Hgb 9.1 L Hct 27.2 L MCV 88 MCH 29.4 MCHC 33.5 RDW 17.9 H Plt Count 47 L Seg Neutrophils % Not Reportable Phosphorus 5.2 H Magnesium 2.1 PTH Intact 286.4 H 06/07/20 06/07/20 06/07/20 12:24 12:24 15:08 Creatine Kinase 34 L CK-MB (CK-2) Troponin I 0.035 0.041 NT-Pro-B Natriuret Pep 06/07/20 06/07/20 06/08/20 16:45 22:01 05:25 Creatine Kinase 35 L 40 L 35 L CK-MB (CK-2) Troponin I NT-Pro-B Natriuret Pep 06/08/20 06/29/20 06/29/20 05:25 07:30 07:30 Creatine Kinase 27 L CK-MB (CK-2) 1.04 Troponin I 0.028 NT-Pro-B Natriuret Pep 88699 H 06/29/20 06/29/20 06/29/20 15:11 15:11 20:37 Creatine Kinase 39 L CK-MB (CK-2) 2.04 Troponin I 0.142 0.166 NT-Pro-B Natriuret Pep 06/30/20 07/08/20 07/08/20 05:00 14:20 14:20 Creatine Kinase 51 L CK-MB (CK-2) 1.95 Troponin I 0.119 0.105 NT-Pro-B Natriuret Pep 07/08/20 07/11/20 07/14/20 14:20 03:45 05:50 Creatine Kinase CK-MB (CK-2) Troponin I NT-Pro-B Natriuret Pep 68073 H 92142 H 8910 H 07/23/20 04:51 Creatine Kinase CK-MB (CK-2) Troponin I NT-Pro-B Natriuret Pep 13143 H Impressions: Head CT 06/07/20 13:02 IMPRESSION: Stable CT of the brain with bifrontal encephalomalacia. No acute intracranial event. EVIDENCE OF ACUTE STROKE: NO. Thoracentesis Ultrasound 06/08/20 00:00 IMPRESSION: SUCCESSFUL THORACENTESIS AND CHEST TUBE PLACEMENT USING ULTRASOUND GUIDANCE. Abdomen/Pelvis CT 06/17/20 00:00 IMPRESSION: 1. Small bowel obstruction with transition point in the left mid abdomen. This may be a high-grade partial obstruction. Distal small bowel and colon are decompressed. 2. Marked urinary bladder distention, suggestive of bladder outlet obstruction. Clinical correlation is recommended. 3. Loculated right hydropneumothorax and small left pleural effusion, not significantly changed. Compressive atelectasis at the lung bases. 4. Moderate ascites, slightly decreased from previous examination. 5. Mildly nodular contour of the liver, nonspecific however could indicate underlying hepatic cirrhosis. Clinical correlation is with recommended. 6. Diffuse subcutaneous edema, suggestive of fluid overload. 7. Colonic diverticulosis without evidence of diverticulitis. KUB X-Ray 06/22/20 00:00 IMPRESSION: Partial small bowel obstruction Chest CT 06/25/20 00:00 IMPRESSION: Loculated right hydropneumothorax which appears similar at the right lung base from the abdominal CT dated 06/17/2020. Slight interval increase in left pleural effusion. Moderate ascites with a similar nonspecific nodular hepatic contour and slight heterogeneous hepatic attenuation. Paracentesis Ultrasound 07/01/20 08:26 IMPRESSION: SUCCESSFUL ULTRASOUND GUIDED PARACENTESIS. Chest X-Ray 07/22/20 07:41 IMPRESSION: Tubes and lines as above. Otherwise unchanged radiographic appearance of the chest. Assessment and Plan - Diagnosis (1) Acute hypoxemic respiratory failure due to COVID-19 Is this a current diagnosis for this admission?: Yes Plan: We will try weaning again Saturday. He is not able to at this time. Aas noted the patient did wean or a few hours this AM but than becem taschypneic and was using accessory resp. mm. 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 However, need to recheck his Covid status. 07/20 the patient has jorge intubated about 12 days. His Covid test remains positive or we would send him for a tracheostomy and PEG. It appears unlikely that he can successfully be weaned off the ventialtor. The patient was still positve for Covid as of 07/23. He has steve kilpatrick on his weaning trials. I have hesited on extubationas I feel he will likrley require new intuabtion in short order in thenext few days (2) Acute systolic heart failure Is this a current diagnosis for this admission?: Yes (3) Atrial fibrillation Qualifiers: Atrial fibrillation type: persistent (not longstanding) Qualified Code(s): I48.19 - Other persistent atrial fibrillation; I48.1 - Persistent atrial fibrillation Is this a current diagnosis for this admission?: Yes Plan: Paced The patient has been on Metoprolol for hR control but it has recently been stopped for heart rate <90 given hispersistent hypotension. The patient is on digoxin as well. 07/19 heart rate is well controlled at present. had a single episode dof bradycardia lasting several seconds earlier. His digoxin level is in the therapeutic range 07/20 The patient appears to be a in a paced rhythm in the 80s. No further tachyarrhythmias. Will hold the cardizem drip for now 07/21 Going in and out of rapid Atrial fib. Back onIV Cardizem 07/22 Has had multiple scary episodes where hs heart rate will climb to iover 200. It is hard to differentiate V tach from a suprvent rhythm but Vijay menendezy and moira iot has been rapid Atrial fib. I have restarted his metoprolol at 0.125 bid. vijay roca i will change digxinonce again to qd. ( I had nmade it 5 days a week). 07/23 The patient is in and out of PAF with rapid rates up to 200 or more. He is on a Cardizem drip once again at this time. We cannpot fulluuy anticoagulate him becuse of his recent gi bleeding. (4) COPD (chronic obstructive pulmonary disease) Qualifiers: COPD type: unspecified COPD Qualified Code(s): J44.9 - Chronic obstructive pulmonary disease, unspecified Is this a current diagnosis for this admission?: Yes Plan: There are multiple reasons for difficult weanijng. Amongst these [facility] , his COPD and poor nutriotional status. CXR shows stable bibasilar pulmonary densities. (5) Protein-energy malnutrition Qualifiers: Protein-calorie malnutrition severity: mild Qualified Code(s): E44.1 - Mild protein-calorie malnutrition Is this a current diagnosis for this admission?: Yes Plan: The patient is malnourished in the wake of his prolonged hospitalization. We have had to hold his feedings beciuse of vomiting and high residuals lately. Will be imaging abdomen . Considere adding reglan to regimen as well. (6) CKD (chronic kidney disease) requiring chronic dialysis Is this a current diagnosis for this admission?: Yes Plan: The patient continues with doiaysis tiw. 07/20 he is getting dialyzed today. (7) UGIB (upper gastrointestinal bleed) Is this a current diagnosis for this admission?: Yes Plan: His Hb is 10.7,. he does not appear to have melena at this time EGD has been put on hold given his cardiac issues. 07/23 EGD put onhld. Has been maintaining hsi Hb relatively well. No gross melena oand no mre coffee grounds (8) Hypotension Qualifiers: Hypotension type: idiopathic hypotension Qualified Code(s): I95.0 - Idiopathic hypotension Is this a current diagnosis for this admission?: Yes Plan: Has been fairly consistently hypotensive. The patient was placed on Midodrine. Weare holding his metoprolol at this time as well., 07/20 His Bp is a little lower than normal now. His lactate is up a bity as well. it may be due to drecent blood loss. The opatient is to be transfused 2 units in the near furue. He may need low odse pressors but we will see. (9) Abnormal LFTs (liver function tests) Is this a current diagnosis for this admission?: Yes Plan: His LFTs are a little abnormal;. Unclear if this represents passive liver congestion or a med relatred problem Will continue to monitor I ahhve stoped his Liptitor for the time being as well. (10) Code status needs review Is this a current diagnosis for this admission?: Yes Plan: Unclear if the patient may wish to revise his code status. i will try to speak with him today in regards to that.07/23 I have had a few earnest discusssins with thepatiemt. He is not at thepoint where he wishes to [facility] in a move to comfort care. I have discussed theissues with his POJean Pierre Sykes as well. Critical Time Critical Time (minutes): 35 Level of Care: ICU -: 1. The care of a critical patient is a dynamic process. This note is a factory representative synopsis but static in nature. The timeframe for treatments given in order is not necessarily the actual time these treatments may have been done. 2. This patient requires critical care secondary to ongoing requirements for therapy not offered or safe outside the critical care environment. Transfer to a lower level of care will result in altered life or limb morbidity and mortality. 3. Multidisciplinary rounds completed. 4. ABCDE bundle addressed.
[2020-07-23] MEDS: MIRTAZAPINE 15 MG TABLET NG SCH (22:13)
[2020-07-23] MEDS ORDERED: SCOPOLAMINE HYDROBROMIDE 1.5 MG PATCH.TD72 TD ONE (23:32)
[2020-07-24] MEDS: INSULIN REG, HUMAN 100 UNIT/ML 3 ML VIAL (PYX) SUBCUT SCH ×4 (00:22→18:46)
[2020-07-24] MEDS: DILTIAZEM HCL/D5W 125 MG/125 ML RTUINJ IV PRN ×3 (00:51→22:27)
[2020-07-24] MEDS: NORMAL SALINE 100 ML with PANTOPRAZOLE SODIUM 80 MG IV PRN ×6 (00:52→18:55)
[2020-07-24] MEDS: DEXTROSE 5%-NORMAL SALINE 1,000 ML IV PRN (00:52)
[2020-07-24] MEDS: DEXMEDETOMIDINE IN 0.9 % NACL 400 MCG/100 ML RTUPB IV PRN (02:50)
[2020-07-24 06:29] LABS: HEMATOCRIT 28.7 % (37.9-51.0); HEMOGLOBIN 9.6 g/dL (13.5-17.0); MEAN CORPUSCULAR HEMOGLOBIN 29.4 pg (27.0-33.4); MEAN CORPUSCULAR HGB CONC 33.5 g/dL (32.0-36.0); MEAN CORPUSCULAR VOLUME 88 fl (80-97); RED BLOOD COUNT 3.27 10^6/uL (4.35-5.55); RED CELL DISTRIBUTION WIDTH 17.6 % (11.5-14.0); WHITE BLOOD COUNT 16.6 10^3/uL (4.0-10.5)
[2020-07-24 07:38] LABS: PLATELET COUNT 45 10^3/uL (150-450)
[2020-07-24 07:39] LABS: ABSOLUTE LYMPHOCYTES# (MANUAL) 0.2 10^3/uL (0.5-4.7); ANISOCYTOSIS 1+; BASOPHILS % (MANUAL) 0 % (0-2); BURR CELLS SLIGHT; EOSINOPHILS % (MANUAL) 0 % (0-6); LYMPHOCYTES % (MANUAL) 1 % (13-45); MONOCYTES % (MANUAL) 0 % (3-13); OVALOCYTES 1+; PLATELET COMMENT DECREASED; SEGMENTED NEUTROPHILS % (MAN) 99 % (42-78); TARGET CELLS SLIGHT; TOTAL CELLS COUNTED 100
--- NOTE | 2020-07-24 11:14 | PDOC CRITICAL CARE PROG REPORT ---
General Date:: 07/24/20 ICU Day:: 16 Ventilator Day:: 16 Hospital Day:: 47 Resuscitation Status: Full Code Events in the past 12 to 24 Hours:: Not able to make much progress on ventilator. The patient has been in the hospital over 40 days. He was able to do a few hours on SBT this AM but than became tired and tachypnei c and had to go back on a rate The patient is weak and debilitated. It appears that he will need trach and PEG. However, will need to repeat Covid test before moving forward. Patient getting dialyzed tiw. he has very bad scrotal edema. His bowels are not moving and has apparently had a lot of difficulty with his tube feeds . We are getting flat and upright abdominal x ray. May have an element of gastroparesis. 07/19 The patient remains on the ventilator As noted he did do an SBT yesterday. We repeated his Covid test and it remains positive. It is unlikely we can get a surgeon to trach him while he is still Covid +. His bp is steady. he did have a bvrief episode df bradycardia earlier for reao sns unclear. We tried to interrogate the pacer but were unable perhops because it is a newer model. We have restarted tube feeds and started reglan for a possible motility issue.His potassium was borderlien low so he is getting replacement. 07/19 5:45PM the patient developed a sudden onset of a tachyarrhythmia. It was hard to discern whether supraventricular vs. ventricular. The patient had a heart rate in the 200 range . On closer examination there appeared to be deep ST depressions with flutter of P waves buried within. art a certain point the rhythm became quite irregular suggesting fib -flutter at 140-160. The patient was given Cardizem 10 mg with reversion to a sinus tach alternating with a paced rhythm. The patient will be placed on a crdizem drip for now. Has maintained his bp throughout these several minutes. 07/20 The patient is fairly discouraged. he may want to change goals of care. we have asked Dr. Guan to see him. he did have some bleeding last nght. He had coffee ground material from above and than some melena. His Hb dropped to 6.6 from 9.2. We are transfusing the patient 2 units PRBCs. Gi was consulted. i would anticipate UGI endoscopy today. No further tachyarrhthymias. Tereza palced on hold. 07/21 The patient was set to have an EGD this AM. he suddenly got very tachycardic as he did 2 days ago whith what appears to be arapid Atrial fib with rate in excess of 200. The patient wa s given 10mg Cardizemand paced on a drip at 10mg/hr.the procedure was than aborted.. The patient dropped his Bp transiently. He looks rather poorly at resent. It does nota ppear that he is likely to suvive very long with his myriad issue. Following transfusin his Hb is uo 10.7 Of course we cannot anticoagualte him given the recent gi bleed. 07/22 THe patient is still alert and appears relatively comfortable.His niece, Mony visited today. She is willing to standby whatever decision the patient makes regarding his care. She went on to say that he has been hospitalized much of the previous 9 months. He underwent valve surgery last October and since than his life has been a string of hospitalizations. The patient is actually doing well on a SBT presently. His heart rate is fairly well controlled presenlty. based on recent evenets it appears to me athat the patient likely has a siock sinus syndrome. 07/23 The patient is arousable and responsive. Little change in overalll status. Had run of atrial fib late yesterday afternoon. To some extent givent hsi instability I have been reluctant to extubate the patient particularly since he wants to be reintubated should something bad arise. 07/24 the patient's general condition is little changed He is awake. No further bleeding. His AST has risen the past several days. I am not sure why but it could be from epoisodes of transient hypotension. Alk phos and monroe have not really changed much. I stopped his lipitor a few days ago. i am a little relucatnt just yet to start full dose anticoagulation. i will place thepatient oon subcut heparin first and hopefully he will be ok. as noted i have had recurrent discussions with patient who does not wish to be DNI/DNR at this time. Reason for ICU Addmission:: Post CPR resuscitation; endotracheally intubated, on HD. Physical Exam Vital Signs: Temp Pulse Resp BP Pulse Ox 98.1 F 84 11 L 105/69 99 07/24/20 08:00 07/24/20 08:00 07/24/20 08:00 07/24/20 08:00 07/24/20 08:44 Intake & Output 07/23/20 07/24/20 07/25/20 06:59 06:59 06:59 Intake Total 1540 1603 Output Total 1125 8 Balance 415 1595 Weight 66.8 kg 68.4 kg Weight/Height Weight 68.4 kg Height 5 ft 4 in Exam: Patient cachectic and profoundly weak. canot write notes. It does make communication rather difficult. Head exam: PRESENT: atraumatic, normocephalic Eye exam: PRESENT: EOMI, PERRLA Ear exam: PRESENT: normal external ear exam Mouth exam: PRESENT: neck supple Neck exam: ABSENT: JVD, lymphadenopathy, tenderness Respiratory exam: ABSENT: accessory muscle use Cardiovascular exam: PRESENT: irregular rhythm Pulses: PRESENT: normal femoral pulses GI/Abdominal exam: PRESENT: normal bowel sounds, soft. ABSENT: rigid, tenderness Rectal exam: PRESENT: deferred Gentrourinary exam: PRESENT: scrotal swelling Extremities exam: PRESENT: pedal edema, +1 edema Neurological exam: PRESENT: alert, awake, oriented to person. ABSENT: oriented to time Psychiatric exam: PRESENT: appropriate affect Laboratory/Radiographs Laboratory Results: 07/24/20 05:51 07/22/20 04:50 07/24/20 05:51 WBC 16.6 H RBC 3.27 L Hgb 9.6 L Hct 28.7 L MCV 88 MCH 29.4 MCHC 33.5 RDW 17.6 H Plt Count 45 L Seg Neutrophils % Not Reportable 06/07/20 06/07/20 06/07/20 12:24 12:24 15:08 Creatine Kinase 34 L CK-MB (CK-2) Troponin I 0.035 0.041 NT-Pro-B Natriuret Pep 06/07/20 06/07/20 06/08/20 16:45 22:01 05:25 Creatine Kinase 35 L 40 L 35 L CK-MB (CK-2) Troponin I NT-Pro-B Natriuret Pep 06/08/20 06/29/20 06/29/20 05:25 07:30 07:30 Creatine Kinase 27 L CK-MB (CK-2) 1.04 Troponin I 0.028 NT-Pro-B Natriuret Pep 65255 H 06/29/20 06/29/20 06/29/20 15:11 15:11 20:37 Creatine Kinase 39 L CK-MB (CK-2) 2.04 Troponin I 0.142 0.166 NT-Pro-B Natriuret Pep 06/30/20 07/08/20 07/08/20 05:00 14:20 14:20 Creatine Kinase 51 L CK-MB (CK-2) 1.95 Troponin I 0.119 0.105 NT-Pro-B Natriuret Pep 07/08/20 07/11/20 07/14/20 14:20 03:45 05:50 Creatine Kinase CK-MB (CK-2) Troponin I NT-Pro-B Natriuret Pep 42139 H 23579 H 8910 H 07/23/20 04:51 Creatine Kinase CK-MB (CK-2) Troponin I NT-Pro-B Natriuret Pep 11232 H Impressions: Head CT 06/07/20 13:02 IMPRESSION: Stable CT of the brain with bifrontal encephalomalacia. No acute intracranial event. EVIDENCE OF ACUTE STROKE: NO. Thoracentesis Ultrasound 06/08/20 00:00 IMPRESSION: SUCCESSFUL THORACENTESIS AND CHEST TUBE PLACEMENT USING ULTRASOUND GUIDANCE. Abdomen/Pelvis CT 06/17/20 00:00 IMPRESSION: 1. Small bowel obstruction with transition point in the left mid abdomen. This may be a high-grade partial obstruction. Distal small bowel and colon are decompressed. 2. Marked urinary bladder distention, suggestive of bladder outlet obstruction. Clinical correlation is recommended. 3. Loculated right hydropneumothorax and small left pleural effusion, not significantly changed. Compressive atelectasis at the lung bases. 4. Moderate ascites, slightly decreased from previous examination. 5. Mildly nodular contour of the liver, nonspecific however could indicate underlying hepatic cirrhosis. Clinical correlation is with recommended. 6. Diffuse subcutaneous edema, suggestive of fluid overload. 7. Colonic diverticulosis without evidence of diverticulitis. KUB X-Ray 06/22/20 00:00 IMPRESSION: Partial small bowel obstruction Chest CT 06/25/20 00:00 IMPRESSION: Loculated right hydropneumothorax which appears similar at the right lung base from the abdominal CT dated 06/17/2020. Slight interval increase in left pleural effusion. Moderate ascites with a similar nonspecific nodular hepatic contour and slight h eterogeneous hepatic attenuation. Paracentesis Ultrasound 07/01/20 08:26 IMPRESSION: SUCCESSFUL ULTRASOUND GUIDED PARACENTESIS. Chest X-Ray 07/22/20 07:41 IMPRESSION: Tubes and lines as above. Otherwise unchanged radiographic appearance of the chest. Assessment and Plan - Diagnosis (1) Acute hypoxemic respiratory failure due to COVID-19 Is this a current diagnosis for this admission?: Yes Plan: We will try weaning again Saturday. He is not able to at this time. Aas noted the patient did wean or a few hours this AM but than becem taschypneic and was using accessory resp. mm. I believe in the terminal operator he may be suited for a trach and PEG at this time. However, need to recheck his Covid status. 07/20 the patient has jorge intubated about 12 days. His Covid test remains positive or we would send him for a tracheostomy and PEG. It appears unlikely that he can successfully be weaned off the ventialtor. The patient was still positve for Covid as of 07/23. He has steve kilpatrick on his weaning trials. I have hesited on extubationas I feel he will likrley require new intuabtion in short order in thenext few days (2) Acute systolic heart failure Is this a current diagnosis for this admission?: Yes Plan: 07/20 the patient does not appear to be in heart failure at this time. 07/22 His CXR shows bilaterla effusions. his last pro BNP of several days ago was little lower than it had been. 07/24 Pro BNP is up. CXR has not changed much (3) Atrial fibrillation Qualifiers: Atrial fibrillation type: persistent (not longstanding) Qualified Code(s): I48.19 - Other persistent atrial fibrillation; I48.1 - Persistent atrial fibrillation Is this a current diagnosis for this admission?: Yes Plan: Given his recurrent issues with atrial fib I may add smalldose of Cardizem po bid to regimen. (4) COPD (chronic obstructive pulmonary disease) Qualifiers: COPD type: unspecified COPD Qualified Code(s): J44.9 - Chronic obstructive pulmonary disease, unspecified Is this a current diagnosis for this admission?: Yes Plan: There are multiple reasons for difficult weaning. Amongst these are the patie nt's pooor cardiovascualr statis , his COPD and poor nutritional status. CXR shows stable bibasilar pulmonary densities. 07/24 the patient gets regiular HHN rx. He did wean for several hours over thepast few days. I am reluctant to wean him from ventiator gvien his poor overal functional status and recurrent arrhtyhmias (5) Protein-energy malnutrition Qualifiers: Protein-calorie malnutrition severity: mild Qualified Code(s): E44.1 - Mild protein-calorie malnutrition Is this a current diagnosis for this admission?: Yes Plan: The patient is malnourished in the wake of his prolonged hospitalization. We have had to hold his feedings beciuse of vomiting and high residuals lately. Will be imaging abdomen . Considere adding reglan to regimen as well. (6) CKD (chronic kidney disease) requiring chronic dialysis Is this a current diagnosis for this admission?: Yes Plan: The patient continues with doiaysis tiw. 07/20 he is getting dialyzed today. 07/24 The patient is getting dialyzed tiw. There have been no majorissues with dialysis. (7) UGIB (upper gastrointestinal bleed) Is this a current diagnosis for this admission?: Yes Plan: His Hb is 10.7,. he does not appear to have melena at this time EGD has been put on hold given his cardiac issues. 07/23 EGD put onhld. Has been maintaining hsi Hb relatively well. No gross melena and no more coffee grounds. 07/24 hb has been stable. it appears that thegi bleeding has sresolved. i am trying himonce again on subcut heparin. If tlerated we can restart Eliquis in the near future. (for his Atrial fib). (8) Hypotension Qualifiers: Hypotension type: idiopathic hypotension Qualified Code(s): I95.0 - Id iopathic hypotension Is this a current diagnosis for this admission?: Yes Plan: Has been fairly consistently hypotensive. The patient was placed on Midodrine. Weare holding his metoprolol at this time as well., 07/20 His Bp is a little lower than normal now. His lactate is up a bit as well. it may be due to drecent blood loss. The opatient is to be transfused 2 units in the near furue. He may need low odse pressors but we will see. 07/24 His bp vacillates a bit but he generally runs fairly low. Hs bp varies between 80 susystoic to about 100 systoloc. (9) Abnormal LFTs (liver function tests) Is this a current diagnosis for this admission?: Yes Plan: His LFTs are a little abnormal;. Unclear if this represents passive liver congestion or a med relatred problem Will continue to monitor I have stoped his Liptitor for the time being as well. 07/24 I am not very much concerned about the isolated elevated AST. he is not on any other obvious toxic hepatic meds. As noted ALT, alk phos and bili have not really changed much. (10) Code status needs review Is this a current diagnosis for this admission?: Yes Plan: Unclear if the patient may wish to revise his code status. i will try to speak with him today in regards to that.07/23 I have had a few earnest discusssins with thepatiemt. He is not at thepoint where he wishes to come off [facility] ventialtor in a move to comfort care. I have discussed theissues with his POA Mony as well. Critical Time Critical Time (minutes): 35 Level of Care: ICU -: 1. The care of a critical patient is a dynamic process. This note is a underwriting service representative synopsis but static in nature. The timeframe for treatments given in order is not necessarily the actual time these treatments may have been done. 2. This patient requires critical care secondary to ongoing requirements for therapy not offered or safe outside the critical care environment. Transfer to a lower level of care will result in altered life or limb morbidity and mortality. 3. Multidisciplinary rounds completed. 4. ABCDE bundle addressed.
[2020-07-24] MEDS: ASCORBIC ACID 500 MG TABLET NG SCH ×2 (12:28→18:45)
[2020-07-24] MEDS: MIDODRINE HCL 5 MG TABLET NG SCH ×3 (12:28→18:45)
[2020-07-24] MEDS: DOCUSATE SODIUM 100 MG/10 ML UDC NG SCH ×2 (12:28→18:45)
[2020-07-24] MEDS: HYDROCORTISONE SOD SUCCINATE INJ/PF 100 MG/2 ML SDV IV SCH ×2 (12:29→22:49)
[2020-07-24] MEDS: DIGOXIN INJ 0.5 MG/2 ML AMPULE IV SCH (12:29)
[2020-07-24] MEDS: ZINC SULFATE 220 MG CAPSULE NG SCH (12:30)
[2020-07-24] MEDS: METOPROLOL TARTRATE 25 MG TABLET NG SCH ×2 (12:30→22:48)
[2020-07-24] MEDS: METOCLOPRAMIDE HCL 10 MG TABLET NG SCH ×3 (12:30→18:45)
[2020-07-24] MEDS: ASPIRIN 81 MG TABLET, CHEWABLE NG SCH (12:31)
[2020-07-24] MEDS: CALCITRIOL 1 MCG/ML ORAL SOLN 15 ML PO SCH (12:31)
[2020-07-24] MEDS: DILTIAZEM HCL 30 MG TABLET PO SCH ×2 (12:38→22:49)
[2020-07-24] MEDS: HEPARIN SOD (PORCINE) 5,000 UNIT/ML 1 ML VIAL SUBCUT SCH ×2 (15:40→22:26)
[2020-07-24] MEDS ORDERED: DILTIAZEM HCL INJ 25 MG/5 ML VIAL IV ONE ×3 (18:10→21:48)
[2020-07-24] MEDS: FENTANYL CITRATE INJ/PF 100 MCG/2 ML AMPUL IV PRN ×2 (18:49→20:55)
[2020-07-24] MEDS ORDERED: DILTIAZEM HCL INJ 25 MG/5 ML VIAL ONE ×2 (20:18→21:11)
[2020-07-24] MEDS: MIRTAZAPINE 15 MG TABLET NG SCH (22:49)
[2020-07-24] MEDS ORDERED: NORMAL SALINE 500 ML IV ONE (23:25)
[2020-07-25] MEDS ORDERED: NOREPINEPHRINE BITARTRATE INJ/PF 4 MG/4 ML SDV IV ONE ×2 (00:08→05:37)
[2020-07-25] MEDS: DEXTROSE 5%-WATER 250 ML with NOREPINEPHRINE BITARTRATE 4 MG IV PRN ×8 (00:31→17:55)
[2020-07-25] MEDS: INSULIN REG, HUMAN 100 UNIT/ML 3 ML VIAL (PYX) SUBCUT SCH ×4 (00:33→17:50)
[2020-07-25] MEDS ORDERED: DIGOXIN INJ 0.5 MG/2 ML AMPULE ONE (01:16)
[2020-07-25] MEDS: FENTANYL CITRATE INJ/PF 100 MCG/2 ML AMPUL IV PRN ×5 (01:30→21:20)
[2020-07-25] MEDS ORDERED: DIGOXIN INJ 0.5 MG/2 ML AMPULE IV ONE (01:30)
[2020-07-25] MEDS ORDERED: EPOETIN ALFA-EPBX 20,000 UNIT in SYRINGE, DISPOSABLE, 1 EACH IV PRN (05:00)
[2020-07-25] MEDS ORDERED: HEPARIN SOD (PORCINE) 1,000 UNIT/ML 10 ML VIAL IV PRN (05:00)
[2020-07-25] MEDS: NORMAL SALINE 100 ML with PANTOPRAZOLE SODIUM 80 MG IV PRN ×4 (05:00→16:20)
[2020-07-25] MEDS: HEPARIN SOD (PORCINE) 5,000 UNIT/ML 1 ML VIAL SUBCUT SCH ×3 (05:35→21:30)
[2020-07-25 06:32] LABS: HEMATOCRIT 35.6 % (37.9-51.0); HEMOGLOBIN 11.6 g/dL (13.5-17.0); MEAN CORPUSCULAR HGB CONC 32.6 g/dL (32.0-36.0); MEAN CORPUSCULAR VOLUME 89 fl (80-97); RED BLOOD COUNT 4.01 10^6/uL (4.35-5.55); RED CELL DISTRIBUTION WIDTH 18.7 % (11.5-14.0); WHITE BLOOD COUNT 16.5 10^3/uL (4.0-10.5)
[2020-07-25 06:46] LABS: ANION GAP 10 (5-19); BLOOD UREA NITROGEN 57 mg/dL (7-20); CARBON DIOXIDE 20 mmol/L (22-30); CHLORIDE 102 mmol/L (98-107); GLUCOSE 96 mg/dL (75-110); POTASSIUM 4.4 mmol/L (3.6-5.0)
[2020-07-25 07:37] LABS: PLATELET COUNT 74 10^3/uL (150-450)
[2020-07-25 07:41] LABS: ABSOLUTE MONOCYTES # (MANUAL) 0.8 10^3/uL (0.1-1.4); ANISOCYTOSIS 2+; BASOPHILS % (MANUAL) 0 % (0-2); EOSINOPHILS % (MANUAL) 0 % (0-6); LYMPHOCYTES % (MANUAL) 0 % (13-45); MONOCYTES % (MANUAL) 5 % (3-13); SEGMENTED NEUTROPHILS % (MAN) 95 % (42-78); TOTAL CELLS COUNTED 100
[2020-07-25 07:42] LABS: BURR CELLS SLIGHT; PLATELET COMMENT DECREASED; POIKILOCYTOSIS 1+; TEAR DROP CELLS SLIGHT
[2020-07-25 07:49] LABS: DIGOXIN 4.36 ng/mL (0.8-2.0)
[2020-07-25] MEDS: ASCORBIC ACID 500 MG TABLET NG SCH ×2 (10:32→17:51)
[2020-07-25] MEDS: ASPIRIN 81 MG TABLET, CHEWABLE NG SCH (10:32)
[2020-07-25] MEDS: METOCLOPRAMIDE HCL 10 MG TABLET NG SCH ×3 (10:32→17:51)
[2020-07-25] MEDS: DILTIAZEM HCL 30 MG TABLET PO SCH ×2 (10:32→21:29)
[2020-07-25] MEDS: ZINC SULFATE 220 MG CAPSULE NG SCH (10:32)
[2020-07-25] MEDS: METOPROLOL TARTRATE 25 MG TABLET NG SCH ×2 (10:32→21:29)
[2020-07-25] MEDS: DIGOXIN INJ 0.5 MG/2 ML AMPULE IV SCH (10:33)
[2020-07-25] MEDS: DOCUSATE SODIUM 100 MG/10 ML UDC NG SCH ×2 (10:33→17:51)
[2020-07-25] MEDS: CALCITRIOL 1 MCG/ML ORAL SOLN 15 ML PO SCH (10:35)
[2020-07-25] MEDS: HYDROCORTISONE SOD SUCCINATE INJ/PF 100 MG/2 ML SDV IV SCH ×2 (10:36→21:28)
[2020-07-25] MEDS: MIDODRINE HCL 5 MG TABLET NG SCH ×3 (10:53→17:51)
--- NOTE | 2020-07-25 13:44 | PDOC CRITICAL CARE PROG REPORT ---
General Date:: 07/25/20 ICU Day:: 17 Ventilator Day:: 17 Resuscitation Status: Full Code Events in the past 12 to 24 Hours:: Essentially no significant change either for the better or worse. Review of systems relevant to events:: Pulmonary, CV, renal Reason for ICU Addmission:: Post CPR resuscitation; endotracheally intubated, on HD. - Medications: Medications reviewed and adjusted accordingly: Yes Vasopressors:: Levophed Sedation:: None Physical Exam Vital Signs: Temp Pulse Resp BP Pulse Ox 99.7 F 149 H 15 74/58 L 100 07/25/20 13:15 07/25/20 03:36 07/25/20 13:15 07/25/20 13:15 07/25/20 13:15 Intake & Output 07/24/20 07/25/20 07/26/20 06:59 06:59 06:59 Intake Total 7615 169 9114 Output Total 8 25 1 Balance 8164 124 7044 Weight 68.4 kg 68.7 kg Weight/Height Weight 68.7 kg Height 5 ft 4 in General appearance: PRESENT: no acute distress, cooperative, disheveled Head exam: PRESENT: atraumatic, normocephalic Eye exam: PRESENT: conjunctiva pink, EOMI, PERRLA. ABSENT: scleral icterus Ear exam: PRESENT: normal external ear exam Mouth exam: PRESENT: moist, tongue midline Respiratory exam: PRESENT: rhonchi, symmetrical, unlabored Cardiovascular exam: PRESENT: tachycardia GI/Abdominal exam: PRESENT: normal bowel sounds, soft. ABSENT: distended, guarding, mass, organolmegaly, rebound, tenderness Rectal exam: PRESENT: deferred Gentrourinary exam: PRESENT: indwelling catheter Extremities exam: PRESENT: +2 edema Musculoskeletal exam: PRESENT: normal inspection Neurological exam: PRESENT: alert, awake, oriented to person, oriented to place Psychiatric exam: PRESENT: appropriate affect, normal mood. ABSENT: homicidal ideation, suicidal ideation Tubes/Lines: PRESENT: Endotracheal Tube, Central Line, Nasogastic Tube Laboratory/Radiographs Laboratory Results: 07/25/20 05:40 07/25/20 05:40 07/25/20 07/25/20 05:40 05:40 WBC 16.5 H RBC 4.01 L Hgb 11.6 L Hct 35.6 L MCV 89 MCH 29.0 MCHC 32.6 RDW 18.7 H Plt Count 74 L Seg Neutrophils % Not Reportable Sodium 132.1 L Potassium 4.4 Chloride 102 Carbon Dioxide 20 L Anion Gap 10 BUN 57 H Creatinine 1.97 H Est GFR ( Amer) 42 L Glucose 96 Calcium 8.0 L 07/22/20 15:15 Sputum Gram Stain - Final 07/22/20 15:15 Sputum Sputum Culture - Final C.albicans/C.dubliniensis Normal Cynthia Absent 06/07/20 06/07/20 06/07/20 12:24 12:24 15:08 Creatine Kinase 34 L CK-MB (CK-2) Troponin I 0.035 0.041 NT-Pro-B Natriuret Pep 06/07/20 06/07/20 06/08/20 16:45 22:01 05:25 Creatine Kinase 35 L 40 L 35 L CK-MB (CK-2) Troponin I NT-Pro-B Natriuret Pep 06/08/20 06/29/20 06/29/20 05:25 07:30 07:30 Creatine Kinase 27 L CK-MB (CK-2) 1.04 Troponin I 0.028 NT-Pro-B Natriuret Pep 41796 H 06/29/20 06/29/20 06/29/20 15:11 15:11 20:37 Creatine Kinase 39 L CK-MB (CK-2) 2.04 Troponin I 0.142 0.166 NT-Pro-B Natriuret Pep 06/30/20 07/08/20 07/08/20 05:00 14:20 14:20 Creatine Kinase 51 L CK-MB (CK-2) 1.95 Troponin I 0.119 0.105 NT-Pro-B Natriuret Pep 07/08/20 07/11/20 07/14/20 14:20 03:45 05:50 Creatine Kinase CK-MB (CK-2) Troponin I NT-Pro-B Natriuret Pep 96854 H 21382 H 8910 H 07/23/20 04:51 Creatine Kinase CK-MB (CK-2) Troponin I NT-Pro-B Natriuret Pep 20856 H Impressions: Head CT 06/07/20 13:02 IMPRESSION: Stable CT of the brain with bifrontal encephalomalacia. No acute intracranial event. EVIDENCE OF ACUTE STROKE: NO. Thoracentesis Ultrasound 06/08/20 00:00 IMPRESSION: SUCCESSFUL THORACENTESIS AND CHEST TUBE PLACEMENT USING ULTRASOUND GUIDANCE. Abdomen/Pelvis CT 06/17/20 00:00 IMPRESSION: 1. Small bowel obstruction with transition point in the left mid abdomen. This may be a high-grade partial obstruction. Distal small bowel and colon are decompressed. 2. Marked urinary bladder distention, suggestive of bladder outlet obstruction. Clinical correlation is recommended. 3. Loculated right hydropneumothorax and small left pleural effusion, not significantly changed. Compressive atelectasis at the lung bases. 4. Moderate ascites, slightly decreased from previous examination. 5. Mildly nodular contour of the liver, nonspecific however could indicate underlying hepatic cirrhosis. Clinical correlation is with recommended. 6. Diffuse subcutaneous edema, suggestive of fluid overload. 7. Colonic diverticulosis without evidence of diverticulitis. KUB X-Ray 06/22/20 00:00 IMPRESSION: Partial small bowel obstruction Chest CT 06/25/20 00:00 IMPRESSION: Loculated right hydropneumothorax which appears similar at the right lung base from the abdominal CT dated 06/17/2020. Slight interval increase in left pleural effusion. Moderate ascites with a similar nonspecific nodular hepatic contour and slight heterogeneous hepatic attenuation. Paracentesis Ultrasound 07/01/20 08:26 IMPRESSION: SUCCESSFUL ULTRASOUND GUIDED PARACENTESIS. Chest X-Ray 07/22/20 07:41 IMPRESSION: Tubes and lines as above. Otherwise unchanged radiographic appearance of the chest. All labs, radiographs, diagnostic studies and EKGs were personally reviewed: Yes In addition, reports of radiographic and diagnostic studies were read: Yes Assessment and Plan - Diagnosis (1) Acute hypoxemic respiratory failure due to COVID-19 Is this a current diagnosis for this admission?: Yes Plan: He has once again tested positive for the virus. (2) Atrial fibrillation Qualifiers: Atrial fibrillation type: persistent (not longstanding) Qualified Code(s): I48.19 - Other persistent atrial fibrillation; I48.1 - Persistent atrial fibrillation Is this a current diagnosis for this admission?: Yes Plan: His rate is variable but consistently over 100. (3) Acute decompensated heart failure Is this a current diagnosis for this admission?: Yes Plan: This is one reason his BP is consistantly low. (4) Dilated cardiomyopathy Is this a current diagnosis for this admission?: Yes Plan: Same (5) Malnutrition Qualifiers: Malnutrition type: protein-calorie malnutrition Protein-calorie malnutrition severity: moderate Qualified Code(s): E44.0 - Moderate protein- calorie malnutrition Is this a current diagnosis for this admission?: Yes Plan: Continue TF. (6) Mechanical heart valve present Is this a current diagnosis for this admission?: Yes (7) Shock Is this a current diagnosis for this admission?: Yes (8) Volume overload Qualifiers: Hypervolemia type: unspecified Qualified Code(s): E87.70 - Fluid overload, unspecified Is this a current diagnosis for this admission?: Yes (9) Decubital ulcer Qualifiers: Pressure injury location: sacral region Pressure injury stage: stage 1 Qualified Code(s): L89.151 - Pressure ulcer of sacral region, stage 1 Is this a current diagnosis for this admission?: Yes Plan Summary: Unfortunately HD could not be done today due to low BP. Fortunately he does not require it today. Critical Time Critical Time (minutes): 35 Level of Care: ICU Anticipated discharge: SNF Anticipated DC Timeframe: Other -: 1. The care of a critical patient is a dynamic process. This note is a manufacturers service representative synopsis but static in nature. The timeframe for treatments given in order is not necessarily the actual time these treatments may have been done. 2. This patient requires critical care secondary to ongoing requirements for therapy not offered or safe outside the critical care environment. Transfer to a lower level of care will result in altered life or limb morbidity and mortality. 3. Multidisciplinary rounds completed. 4. ABCDE bundle addressed.
[2020-07-25] MEDS ORDERED: PHENYLEPHRINE HCL INJ/PF 10 MG/1 ML SDV ONE ×2 (20:35→23:44)
[2020-07-25] MEDS: DEXTROSE 5%-WATER 250 ML with PHENYLEPHRINE HCL 40 MG IV PRN ×2 (21:15)
[2020-07-25] MEDS: MIRTAZAPINE 15 MG TABLET NG SCH (21:29)
[2020-07-26] MEDS: DEXTROSE 5%-WATER 250 ML with PHENYLEPHRINE HCL 40 MG IV PRN ×2 (00:17)
[2020-07-26] MEDS: INSULIN REG, HUMAN 100 UNIT/ML 3 ML VIAL (PYX) SUBCUT SCH ×4 (00:17→18:31)
--- NOTE | 2020-07-26 00:24 | PDOC PROGRESS REPORT ---
Subjective Progress Note for:: 07/25/20 Subjective:: Patient remains to be intubated although he is awake. His blood pressure has been significantly more decreased than his usual and has been anywhere between 70s to low 80s systolic blood pressure since yesterday. Today his blood pressure is not any better with Levoped at the 11 mcg running around 74/58 and now 69/59. Due to this significant hypotension I held his hemodialysis treatment for today. Reason For Visit: COVID-19, ESR, V-TACH Physical Exam Vital Signs: Temp Pulse Resp BP Pulse Ox 99.7 F 149 H 15 74/58 L 100 07/25/20 13:15 07/25/20 03:36 07/25/20 13:15 07/25/20 13:15 07/25/20 13:15 Intake & Output 07/24/20 07/25/20 07/26/20 06:59 06:59 06:59 Intake Total 2917 564 4826 Output Total 8 25 1 Balance 0957 938 4972 Weight 68.4 kg 68.7 kg Exam: Limited exam secondary to COVID-19 infection. General appearance: PRESENT: Intubated, decreased responsiveness, labored breathing Head exam: PRESENT: atraumatic, normocephalic Respiratory exam: PRESENT: Reported coarse breath sounds. ABSENT: crackles, rales, rhonchi, unlabored, wheezes Cardiovascular exam: PRESENT: Reported irregular rate rhythm -+S1, +S2. ABSENT: diastolic murmur, systolic murmur Extremities exam: Grade 1 bilateral lower extremity pitting edema Neurological exam: PRESENT: awake but less responsive Skin exam: PRESENT: dry, warm, Cardiovascular exam: PRESENT: +S1, +S2 GI/Abdominal exam: PRESENT: ascites, distended Results Laboratory Results: 07/25/20 05:40 07/25/20 05:40 07/25/20 07/25/20 05:40 05:40 WBC 16.5 H RBC 4.01 L Hgb 11.6 L Hct 35.6 L MCV 89 MCH 29.0 MCHC 32.6 RDW 18.7 H Plt Count 74 L Seg Neutrophils % Not Reportable Sodium 132.1 L Potassium 4.4 Chloride 102 Carbon Dioxide 20 L Anion Gap 10 BUN 57 H Creatinine 1.97 H Est GFR ( Amer) 42 L Glucose 96 Calcium 8.0 L 07/22/20 15:15 Sputum Gram Stain - Final 07/22/20 15:15 Sputum Sputum Culture - Final C.albicans/C.dubliniensis Normal Cynthia Absent 06/07/20 06/07/20 06/07/20 12:24 12:24 15:08 Creatine Kinase 34 L CK-MB (CK-2) Troponin I 0.035 0.041 NT-Pro-B Natriuret Pep 06/07/20 06/07/20 06/08/20 16:45 22:01 05:25 Creatine Kinase 35 L 40 L 35 L CK-MB (CK-2) Troponin I NT-Pro-B Natriuret Pep 06/08/20 06/29/20 06/29/20 05:25 07:30 07:30 Creatine Kinase 27 L CK-MB (CK-2) 1.04 Troponin I 0.028 NT-Pro-B Natriuret Pep 17526 H 06/29/20 06/29/20 06/29/20 15:11 15:11 20:37 Creatine Kinase 39 L CK-MB (CK-2) 2.04 Troponin I 0.142 0.166 NT-Pro-B Natriuret Pep 06/30/20 07/08/20 07/08/20 05:00 14:20 14:20 Creatine Kinase 51 L CK-MB (CK-2) 1.95 Troponin I 0.119 0.105 NT-Pro-B Natriuret Pep 07/08/20 07/11/20 07/14/20 14:20 03:45 05:50 Creatine Kinase CK-MB (CK-2) Troponin I NT-Pro-B Natriuret Pep 09772 H 09719 H 8910 H 07/23/20 04:51 Creatine Kinase CK-MB (CK-2) Troponin I NT-Pro-B Natriuret Pep 64945 H Impressions: Head CT 06/07/20 13:02 IMPRESSION: Stable CT of the brain with bifrontal encephalomalacia. No acute intracranial event. EVIDENCE OF ACUTE STROKE: NO. Thoracentesis Ultrasound 06/08/20 00:00 IMPRESSION: SUCCESSFUL THORACENTESIS AND CHEST TUBE PLACEMENT USING ULTRASOUND GUIDANCE. Abdomen/Pelvis CT 06/17/20 00:00 IMPRESSION: 1. Small bowel obstruction with transition point in the left mid abdomen. This may be a high-grade partial obstruction. Distal small bowel and colon are decompressed. 2. Marked urinary bladder distention, suggestive of bladder outlet obstruction. Clinical correlation is recommended. 3. Loculated right hydropneumothorax and small left pleural effusion, not significantly changed. Compressive atelectasis at the lung bases. 4. Moderate ascites, slightly decreased from previous examination. 5. Mildly nodular contour of the liver, nonspecific however could indicate underlying hepatic cirrhosis. Clinical correlation is with recommended. 6. Diffuse subcutaneous edema, suggestive of fluid overload. 7. Colonic diverticulosis without evidence of diverticulitis. KUB X-Ray 06/22/20 00:00 IMPRESSION: Partial small bowel obstruction Chest CT 06/25/20 00:00 IMPRESSION: Loculated right hydropneumothorax which appears similar at the right lung base from the abdominal CT dated 06/17/2020. Slight interval increase in left pleural effusion. Moderate ascites with a similar nonspecific nodular hepatic contour and slight heterogeneous hepatic attenuation. Paracentesis Ultrasound 07/01/20 08:26 IMPRESSION: SUCCESSFUL ULTRASOUND GUIDED PARACENTESIS. Chest X-Ray 07/22/20 07:41 IMPRESSION: Tubes and lines as above. Otherwise unchanged radiographic appearance of the chest. Assessment & Plan - Diagnosis (1) ESRD (end stage renal disease) on dialysis Is this a current diagnosis for this admission?: Yes Plan: Patient is currently anuric. I held dialysis today due to severe hypotension despite vasopressor. However if he gets better we need to resume hemodialysis with ultrafiltration secondary to clinical volume overload. Ideally the patient should be on CRRT which he could better be tolerated but unfortunately we do not have this modality available in the hospital. (2) Acute hypoxemic respiratory failure due to COVID-19 Is this a current diagnosis for this admission?: Yes Plan: Per awning spreader. (3) Ventricular tachyarrhythmia Is this a current diagnosis for this admission?: Yes (4) Digoxin toxicity Is this a current diagnosis for this admission?: Yes (5) CHF (congestive heart failure) Qualifiers: Heart failure type: combined systolic and diastolic Heart failure chronicity: chronic Qualified Code(s): I50.42 - Chronic combined systolic (congestive) and diastolic (congestive) heart failure Is this a current diagnosis for this admission?: Yes Plan: EF of 25 to 30% with moderately reduced right ventricular systolic function. Patient has cardiomyopathy. Cardiology recommendation includes placement of implantable defibrillator but uncertain if the patient can tolerate the procedure. So for now medical management. (6) Pleural effusion Is this a current diagnosis for this admission?: Yes Plan: Status post thoracentesis, 06/08 with initial chest tube placement. Chest tube placement revised with pleurodesis on Wednesday 06/13. Chest tube removed. 06/17. (7) Hypotension Qualifiers: Hypotension type: idiopathic hypotension Qualified Code(s): I95.0 - Idiopathic hypotension Is this a current diagnosis for this admission?: Yes Plan: Likely secondary to poor cardiac function and cardiomyopathy. Currently on midodrine. Adrenal insufficiency has been previously ruled out during previous admission. (8) Hyponatremia Is this a current diagnosis for this admission?: Yes Plan: Chronic and stable. Secondary to hypervolemic state with CHF and ESRD. (9) Atrial fibrillation Qualifiers: Atrial fibrillation type: persistent (not longstanding) Qualified Code(s): I48.19 - Other persistent atrial fibrillation; I48.1 - Persistent atrial fibrillation Is this a current diagnosis for this admission?: Yes Plan: Anticoagulation on hold. (10) H/O mitral valve replacement with mechanical valve Is this a current diagnosis for this admission?: Yes Plan: Currently on Aspirin only. - Time Time with patient: 15-25 minutes
[2020-07-26] MEDS: MORPHINE SULFATE 10 MG/ML INJ IV PRN ×2 (00:50→23:35)
[2020-07-26] MEDS: NORMAL SALINE 100 ML with PANTOPRAZOLE SODIUM 80 MG IV PRN ×2 (02:30)
[2020-07-26] MEDS ORDERED: PHENYLEPHRINE HCL INJ/PF 10 MG/1 ML SDV ONE (03:07)
[2020-07-26] MEDS: DEXTROSE 5%-WATER 250 ML with PHENYLEPHRINE HCL 80 MG IV PRN ×6 (03:30→18:07)
[2020-07-26] MEDS ORDERED: ALBUMIN HUMAN 500 ML IV ONE ×2 (04:54→05:09)
[2020-07-26] MEDS ORDERED: VASOPRESSIN INJ 20 UNIT/1 ML VIAL ONE (05:18)
[2020-07-26] MEDS: DEXTROSE 5%-WATER 250 ML with NOREPINEPHRINE BITARTRATE 4 MG IV PRN ×4 (05:23→08:17)
[2020-07-26] MEDS ORDERED: DEXTROSE 5%-WATER 250 ML with VASOPRESSIN 100 UNIT IV PRN ×2 (05:33)
[2020-07-26 05:48] LABS: ANION GAP 9 (5-19); BLOOD UREA NITROGEN 60 mg/dL (7-20); CALCIUM 7.5 mg/dL (8.4-10.2); CARBON DIOXIDE 21 mmol/L (22-30); CHLORIDE 99 mmol/L (98-107); GLUCOSE 121 mg/dL (75-110); POTASSIUM 4.6 mmol/L (3.6-5.0)
[2020-07-26] MEDS: HEPARIN SOD (PORCINE) 5,000 UNIT/ML 1 ML VIAL SUBCUT SCH ×3 (05:57→22:25)
[2020-07-26 06:32] LABS: HEMATOCRIT 29.7 % (37.9-51.0); HEMOGLOBIN 9.8 g/dL (13.5-17.0); MEAN CORPUSCULAR HEMOGLOBIN 29.5 pg (27.0-33.4); MEAN CORPUSCULAR HGB CONC 32.9 g/dL (32.0-36.0); MEAN CORPUSCULAR VOLUME 90 fl (80-97); RED BLOOD COUNT 3.32 10^6/uL (4.35-5.55); RED CELL DISTRIBUTION WIDTH 18.9 % (11.5-14.0); WHITE BLOOD COUNT 6.5 10^3/uL (4.0-10.5)
[2020-07-26 07:03] LABS: PLATELET COUNT 42 10^3/uL (150-450)
[2020-07-26 07:08] LABS: ABSOLUTE LYMPHOCYTES# (MANUAL) 0.1 10^3/uL (0.5-4.7); ABSOLUTE MONOCYTES # (MANUAL) 0.1 10^3/uL (0.1-1.4); BAND NEUTROPHILS % (MANUAL) 1 % (3-5); BASOPHILS % (MANUAL) 0 % (0-2); EOSINOPHILS % (MANUAL) 0 % (0-6); LYMPHOCYTES % (MANUAL) 1 % (13-45); MONOCYTES % (MANUAL) 2 % (3-13); SEGMENTED NEUTROPHILS % (MAN) 96 % (42-78); TOTAL CELLS COUNTED 100
[2020-07-26 07:09] LABS: TOXIC GRANULATION SLIGHT
[2020-07-26 07:10] LABS: ANISOCYTOSIS 1+; BURR CELLS 2+; OVALOCYTES 1+; PLATELET COMMENT DECREASED; POIKILOCYTOSIS 1+; SCHISTOCYTES SLIGHT
--- NOTE | 2020-07-26 08:45 | PDOC CRITICAL CARE PROG REPORT ---
General Date:: 07/26/20 ICU Day:: 30 Ventilator Day:: 30 Hospital Day:: 45 Resuscitation Status: Full Code Events in the past 12 to 24 Hours:: Continues to do poorly. Less responsive. Review of systems relevant to events:: Neurological, CV, renal pulmonary. Reason for ICU Addmission:: Post CPR resuscitation; endotracheally intubated, on HD. - Medications: Medications reviewed and adjusted accordingly: Yes Vasopressors:: Levophed Sedation:: None Physical Exam Vital Signs: Temp Pulse Resp BP Pulse Ox 98.1 F 100 24 H 93/82 L 100 07/26/20 06:03 07/25/20 20:00 07/26/20 06:03 07/26/20 06:03 07/26/20 06:00 Intake & Output 07/25/20 07/26/20 07/27/20 06:59 06:59 06:59 Intake Total 669 2650 599 Output Total 25 1 Balance 644 2649 599 Weight 68.7 kg 68.3 kg Weight/Height Weight 68.3 kg Height 5 ft 4 in General appearance: PRESENT: other - Emaciated. Head exam: PRESENT: atraumatic, normocephalic Eye exam: PRESENT: conjunctiva pink, EOMI, PERRLA. ABSENT: scleral icterus Ear exam: PRESENT: normal external ear exam Mouth exam: PRESENT: moist, tongue midline Respiratory exam: PRESENT: decreased breath sounds, rhonchi, symmetrical, unlabored Cardiovascular exam: PRESENT: tachycardia GI/Abdominal exam: PRESENT: normal bowel sounds, soft. ABSENT: distended, guarding, mass, organolmegaly, rebound, tenderness Rectal exam: PRESENT: deferred Extremities exam: PRESENT: +2 edema Musculoskeletal exam: PRESENT: normal inspection Neurological exam: PRESENT: altered, other - He is arousable but no longer is appropriate. Skin exam: PRESENT: skin tears, other - Sacral decubitis. Tubes/Lines: PRESENT: Endotracheal Tube, Central Line, Dialysis catheter, Nasogastic Tube Laboratory/Radiographs Laboratory Results: 07/26/20 05:10 07/26/20 05:10 07/26/20 07/26/20 05:10 05:10 WBC 6.5 RBC 3.32 L Hgb 9.8 L Hct 29.7 L MCV 90 MCH 29.5 MCHC 32.9 RDW 18.9 H Plt Count 42 L Seg Neutrophils % Not Reportable Sodium 129.1 L Potassium 4.6 Chloride 99 Carbon Dioxide 21 L Anion Gap 9 BUN 60 H Creatinine 2.22 H Est GFR ( Amer) 37 L Glucose 121 H Calcium 7.5 L 06/07/20 06/07/20 06/07/20 12:24 12:24 15:08 Creatine Kinase 34 L CK-MB (CK-2) Troponin I 0.035 0.041 NT-Pro-B Natriuret Pep 06/07/20 06/07/20 06/08/20 16:45 22:01 05:25 Creatine Kinase 35 L 40 L 35 L CK-MB (CK-2) Troponin I NT-Pro-B Natriuret Pep 06/08/20 06/29/20 06/29/20 05:25 07:30 07:30 Creatine Kinase 27 L CK-MB (CK-2) 1.04 Troponin I 0.028 NT-Pro-B Natriuret Pep 25829 H 06/29/20 06/29/20 06/29/20 15:11 15:11 20:37 Creatine Kinase 39 L CK-MB (CK-2) 2.04 Troponin I 0.142 0.166 NT-Pro-B Natriuret Pep 06/30/20 07/08/20 07/08/20 05:00 14:20 14:20 Creatine Kinase 51 L CK-MB (CK-2) 1.95 Troponin I 0.119 0.105 NT-Pro-B Natriuret Pep 07/08/20 07/11/20 07/14/20 14:20 03:45 05:50 Creatine Kinase CK-MB (CK-2) Troponin I NT-Pro-B Natriuret Pep 95405 H 69199 H 8910 H 07/23/20 04:51 Creatine Kinase CK-MB (CK-2) Troponin I NT-Pro-B Natriuret Pep 46233 H Impressions: Head CT 06/07/20 13:02 IMPRESSION: Stable CT of the brain with bifrontal encephalomalacia. No acute intracranial event. EVIDENCE OF ACUTE STROKE: NO. Thoracentesis Ultrasound 06/08/20 00:00 IMPRESSION: SUCCESSFUL THORACENTESIS AND CHEST TUBE PLACEMENT USING ULTRASOUND GUIDANCE. Abdomen/Pelvis CT 06/17/20 00:00 IMPRESSION: 1. Small bowel obstruction with transition point in the left mid abdomen. This may be a high-grade partial obstruction. Distal small bowel and colon are decompressed. 2. Marked urinary bladder distention, suggestive of bladder outlet obstruction. Clinical correlation is recommended. 3. Loculated right hydropneumothorax and small left pleural effusion, not significantly changed. Compressive atelectasis at the lung bases. 4. Moderate ascites, slightly decreased from previous examination. 5. Mildly nodular contour of the liver, nonspecific however could indicate underlying hepatic cirrhosis. Clinical correlation is with recommended. 6. Diffuse subcutaneous edema, suggestive of fluid overload. 7. Colonic diverticulosis without evidence of diverticulitis. KUB X-Ray 06/22/20 00:00 IMPRESSION: Partial small bowel obstruction Chest CT 06/25/20 00:00 IMPRESSION: Loculated right hydropneumothorax which appears similar at the right lung base from the abdominal CT dated 06/17/2020. Slight interval increase in left pleural effusion. Moderate ascites with a similar nonspecific nodular hepatic contour and slight heterogeneous hepatic attenuation. Paracentesis Ultrasound 07/01/20 08:26 IMPRESSION: SUCCESSFUL ULTRASOUND GUIDED PARACENTESIS. Chest X-Ray 07/22/20 07:41 IMPRESSION: Tubes and lines as above. Otherwise unchanged radiographic appearance of the chest. All labs, radiographs, diagnostic studies and EKGs were personally reviewed: Yes In addition, reports of radiographic and diagnostic studies were read: Yes Assessment and Plan - Diagnosis (1) Acute hypoxemic respiratory failure due to COVID-19 Is this a current diagnosis for this admission?: Yes Plan: He is still testing positive and this unquestionably effecting hi survivability. (2) Atrial fibrillation Qualifiers: Atrial fibrillation type: persistent (not longstanding) Qualified Code(s): I48.19 - Other persistent atrial fibrillation; I48.1 - Persistent atrial fibrillation Is this a current diagnosis for this admission?: Yes Plan: He has episodes of RVR treated only partially with medications. (3) Acute decompensated heart failure Is this a current diagnosis for this admission?: Yes Plan: EF 25% and not currently active. (4) Dilated cardiomyopathy Is this a current diagnosis for this admission?: Yes Plan: This is effecting his overall survivability (5) Malnutrition Qualifiers: Malnutrition type: protein-calorie malnutrition Protein-calorie malnutrition severity: moderate Qualified Code(s): E44.0 - Moderate protein- calorie malnutrition Is this a current diagnosis for this admission?: Yes Plan: Nepro at 20cc but his residual is variable making continuous TF difficult. (6) Mechanical heart valve present Is this a current diagnosis for this admission?: Yes (7) Shock Is this a current diagnosis for this admission?: Yes Plan: Still needing levophed. (8) Volume overload Qualifiers: Hypervolemia type: unspecified Qualified Code(s): E87.70 - Fluid overload, unspecified Is this a current diagnosis for this admission?: Yes Plan: Not currently an issue. (9) Decubital ulcer Qualifiers: Pressure injury location: sacral region Pressure injury stage: stage 1 Qualified Code(s): L89.151 - Pressure ulcer of sacral region, stage 1 Is this a current diagnosis for this admission?: Yes Plan: POA Plan Summary: Although when he was lucid he communicated he wanted aggressive support. His neice has said what he wants is good with her. We are proceeding with aggressive care although it seems that no matter how aggressive he continues on a downward path. Critical Time Critical Time (minutes): 35 Level of Care: ICU Anticipated discharge: Hospice Anticipated DC Timeframe: Other -: 1. The care of a critical patient is a dynamic process. This note is a repre sentative synopsis but static in nature. The timeframe for treatments given in order is not necessarily the actual time these treatments may have been done. 2. This patient requires critical care secondary to ongoing requirements for therapy not offered or safe outside the critical care environment. Transfer to a lower level of care will result in altered life or limb morbidity and mortality. 3. Multidisciplinary rounds completed. 4. ABCDE bundle addressed.
[2020-07-26] MEDS: DEXTROSE 5%-WATER 250 ML with NOREPINEPHRINE BITARTRATE 8 MG IV PRN ×4 (11:22→19:56)
[2020-07-26] MEDS: ASPIRIN 81 MG TABLET, CHEWABLE NG SCH (11:30)
[2020-07-26] MEDS: ASCORBIC ACID 500 MG TABLET NG SCH ×2 (11:30→18:32)
[2020-07-26] MEDS: DILTIAZEM HCL 30 MG TABLET PO SCH ×2 (11:30→22:25)
[2020-07-26] MEDS: METOCLOPRAMIDE HCL 10 MG TABLET NG SCH ×3 (11:30→18:32)
[2020-07-26] MEDS: MIDODRINE HCL 5 MG TABLET NG SCH ×3 (11:30→18:32)
[2020-07-26] MEDS: ZINC SULFATE 220 MG CAPSULE NG SCH (11:30)
[2020-07-26] MEDS: METOPROLOL TARTRATE 25 MG TABLET NG SCH ×2 (11:30→22:26)
[2020-07-26] MEDS: DOCUSATE SODIUM 100 MG/10 ML UDC NG SCH ×2 (11:30→18:32)
[2020-07-26] MEDS: FENTANYL CITRATE INJ/PF 100 MCG/2 ML AMPUL IV PRN ×3 (11:31→18:51)
[2020-07-26] MEDS: PANTOPRAZOLE SODIUM 40 MG VIAL IV SCH ×2 (11:32→22:26)
[2020-07-26] MEDS: DIGOXIN INJ 0.5 MG/2 ML AMPULE IV SCH (11:32)
[2020-07-26] MEDS: CALCITRIOL 1 MCG/ML ORAL SOLN 15 ML PO SCH (11:34)
[2020-07-26] MEDS: HYDROCORTISONE SOD SUCCINATE INJ/PF 100 MG/2 ML SDV IV SCH ×2 (11:38→22:26)
[2020-07-26 19:21] VITALS: BP 61/48
[2020-07-26] MEDS ORDERED: ALBUMIN HUMAN 5% INJ 25 GM/500 ML BOTTLE IV ONE (20:00)
[2020-07-26] MEDS ORDERED: NORMAL SALINE 100 ML with PANTOPRAZOLE SODIUM 80 MG IV PRN ×2 (21:30)
[2020-07-26] MEDS ORDERED: METOPROLOL TARTRATE PF/INJ 5 MG/5 ML SDV IV ONE ×2 (22:07→22:45)
[2020-07-26] MEDS: MIRTAZAPINE 15 MG TABLET NG SCH (22:26)
[2020-07-26] MEDS ORDERED: FENTANYL CITRATE/PF 600 MCG/60 ML BAG IV PRN (22:50)
--- NOTE | 2020-07-26 23:38 | PDOC PROGRESS REPORT ---
Subjective Progress Note for:: 07/26/20 Subjective:: Patient still intubated. Patient is now on 3 vasopressors with systolic blood pressure on the low 90s. He continues to be anuric. He is swollen. He seems to be awake with his eyes open but not much response anyways. Reason For Visit: COVID-19, ESR, V-TACH Physical Exam Vital Signs: Temp Pulse Resp BP Pulse Ox 98.1 F 100 24 H 93/82 L 100 07/26/20 06:03 07/25/20 20:00 07/26/20 06:03 07/26/20 06:03 07/26/20 06:00 Intake & Output 07/25/20 07/26/20 07/27/20 06:59 06:59 06:59 Intake Total 669 2650 599 Output Total 25 1 Balance 644 2649 599 Weight 68.7 kg 68.3 kg Exam: Limited physical exam due to COVID-19 infection. General appearance: PRESENT: Intubated Head exam: PRESENT: atraumatic, normocephalic Respiratory exam: PRESENT: Reported coarse breath sounds. ABSENT: crackles, rales, rhonchi, unlabored, wheezes Cardiovascular exam: PRESENT: Regular rate rhythm -+S1, +S2. ABSENT: diastolic murmur, systolic murmur Extremities exam: Grade 1 bilateral lower extremity pitting edema Neurological exam: PRESENT: awake, but unresponsive. Skin exam: PRESENT: dry, warm, Cardiovascular exam: PRESENT: +S1, +S2 GI/Abdominal exam: PRESENT: ascites, distended Results Laboratory Results: 07/26/20 05:10 07/26/20 05:10 07/26/20 07/26/20 05:10 05:10 WBC 6.5 RBC 3.32 L Hgb 9.8 L Hct 29.7 L MCV 90 MCH 29.5 MCHC 32.9 RDW 18.9 H Plt Count 42 L Seg Neutrophils % Not Reportable Sodium 129.1 L Potassium 4.6 Chloride 99 Carbon Dioxide 21 L Anion Gap 9 BUN 60 H Creatinine 2.22 H Est GFR ( Amer) 37 L Glucose 121 H Calcium 7.5 L 06/07/20 06/07/20 06/07/20 12:24 12:24 15:08 Creatine Kinase 34 L CK-MB (CK-2) Troponin I 0.035 0.041 NT-Pro-B Natriuret Pep 06/07/20 06/07/20 06/08/20 16:45 22:01 05:25 Creatine Kinase 35 L 40 L 35 L CK-MB (CK-2) Troponin I NT-Pro-B Natriuret Pep 06/08/20 06/29/20 06/29/20 05:25 07:30 07:30 Creatine Kinase 27 L CK-MB (CK-2) 1.04 Troponin I 0.028 NT-Pro-B Natriuret Pep [id number] H 06/29/20 06/29/20 06/29/20 15:11 15:11 20:37 Creatine Kinase 39 L CK-MB (CK-2) 2.04 Troponin I 0.142 0.166 NT-Pro-B Natriuret Pep 06/30/20 07/08/20 07/08/20 05:00 14:20 14:20 Creatine Kinase 51 L CK-MB (CK-2) 1.95 Troponin I 0.119 0.105 NT-Pro-B Natriuret Pep 07/08/20 07/11/20 07/14/20 14:20 03:45 05:50 Creatine Kinase CK-MB (CK-2) Troponin I NT-Pro-B Natriuret Pep 70318 H 17892 H 8910 H 07/23/20 04:51 Creatine Kinase CK-MB (CK-2) Troponin I NT-Pro-B Natriuret Pep 02218 H Impressions: Head CT 06/07/20 13:02 IMPRESSION: Stable CT of the brain with bifrontal encephalomalacia. No acute intracranial event. EVIDENCE OF ACUTE STROKE: NO. Thoracentesis Ultrasound 06/08/20 00:00 IMPRESSION: SUCCESSFUL THORACENTESIS AND CHEST TUBE PLACEMENT USING ULTRASOUND GUIDANCE. Abdomen/Pelvis CT 06/17/20 00:00 IMPRESSION: 1. Small bowel obstruction with transition point in the left mid abdomen. This may be a high-grade partial obstruction. Distal small bowel and colon are decompressed. 2. Marked urinary bladder distention, suggestive of bladder outlet obstruction. Clinical correlation is recommended. 3. Loculated right hydropneumothorax and small left pleural effusion, not significantly changed. Compressive atelectasis at the lung bases. 4. Moderate ascites, slightly decreased from previous examination. 5. Mildly nodular contour of the liver, nonspecific however could indicate underlying hepatic cirrhosis. Clinical correlation is with recommended. 6. Diffuse subcutaneous edema, suggestive of fluid overload. 7. Colonic diverticulosis without evidence of diverticulitis. KUB X-Ray 06/22/20 00:00 IMPRESSION: Partial small bowel obstruction Chest CT 06/25/20 00:00 IMPRESSION: Loculated right hydropneumothorax which appears similar at the right lung base from the abdominal CT dated 06/17/2020. Slight interval increase in left pleural effusion. Moderate ascites with a similar nonspecific nodular hepatic contour and slight heterogeneous hepatic attenuation. Paracentesis Ultrasound 07/01/20 08:26 IMPRESSION: SUCCESSFUL ULTRASOUND GUIDED PARACENTESIS. Chest X-Ray 07/22/20 07:41 IMPRESSION: Tubes and lines as above. Otherwise unchanged radiographic appearance of the chest. Assessment & Plan - Diagnosis (1) ESRD (end stage renal disease) on dialysis Is this a current diagnosis for this admission?: Yes Plan: Patient is currently anuric. I held dialysis yesterday due to severe hypotension despite vasopressor. However if he gets better we need to resume hemodialysis with ultrafiltration secondary to clinical volume overload. Ideally the patient should be on CRRT which he could better be tolerated but unfortunately we do not have this modality available in the hospital. There is no urgent indication to do hemodialysis today. I will reevaluate the patient again tomorrow and see if hemodialysis would be appropriate depending on his clinical condition. 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 (3) Ventricular tachyarrhythmia Is this a current diagnosis for this admission?: Yes Plan: Per cardiology. Patient continues to have intermittent episodes of V. tach/SVT. (4) Digoxin toxicity Is this a current diagnosis for this admission?: Yes (5) CHF (congestive heart failure) Qualifiers: Heart failure type: combined systolic and diastolic Heart failure chronicity: chronic Qualified Code(s): I50.42 - Chronic combined systolic (congestive) and diastolic (congestive) heart failure Is this a current diagnosis for this admission?: Yes Plan: EF of 25 to 30% with moderately reduced right ventricular systolic function. Rj de souza has cardiomyopathy. Cardiology recommendation includes placement of implantable defibrillator but uncertain if the patient can tolerate the procedure. So for now medical management. (6) Hypotension Qualifiers: Hypotension type: idiopathic hypotension Qualified Code(s): I95.0 - Idiopathic hypotension Is this a current diagnosis for this admission?: Yes Plan: Likely secondary to poor cardiac function and cardiomyopathy. Currently on midodrine. Adrenal insufficiency has been previously ruled out during previous admission. Patient seems to be continuously deteriorating. He is now in cardiogenic shock. He is currently requiring 3 vasopressors. (7) Pleural effusion Is this a current diagnosis for this admission?: Yes Plan: Status post thoracentesis, 06/08 with initial chest tube placement. Chest tube placement revised with pleurodesis on Wednesday 06/13. Chest tube removed. 06/17. (8) Hyponatremia Is this a current diagnosis for this admission?: Yes Plan: Chronic and stable. Secondary to hypervolemic state with CHF and ESRD. (9) Atrial fibrillation Qualifiers: Atrial fibrillation type: persistent (not longstanding) Qualified Code(s): I48.19 - Other persistent atrial fibrillation; I48.1 - Persistent atrial fibrillation Is this a current diagnosis for this admission?: Yes Plan: Anticoagulation on hold. (10) H/O mitral valve replacement with mechanical valve Is this a current diagnosis for this admission?: Yes Plan: Currently on Aspirin only. - Notes Notes: With ongoing deterioration of the patient, prognosis is very poor. I recommend serious consideration for comfort care and hospice for this patient. - Time Time with patient: 15-25 minutes
--- NOTE | 2020-07-27 02:53 | Death Summary ---
Summary Date : 07/27/20 Time of :: 00:05 Autopsy: No Resuscitation Status: Comfort Measures Only - Final Diagnosis (1) COVID-19 Is this a current diagnosis for this admission?: Yes Hospital Course:: Pavel Lepe was a 59-year-old gentleman with a history of CHF, status post mitral valve replacement with prolonged hospital stay of 4 months. Patient had a PEA arrest and ARF leading to chronic dialysis during that admission. History also includes HTN, COPD, multiple pleural effusion secondary to pneumonia and atrial fibrillation. He was admitted on 06/07/2020 after being found down by family. EMS found him to be in wide-complex tachycardia and underwent electrical cardioversion in the field. Patient had a very complex hospital course which included pleural effusions and acute on chronic renal failure. On 07/03/2020 he tested positive for COVID-19. His shortness of breath continued to worsen and he had a PEA cardiac arrest on 07/08/2020 leading to intubation and ICU admission. Patient's pulmonary status continued to worsen and patient remained ventilator dependent. Over the past several days, patient's hemodynamic status had worsened. He was placed on multiple vasoactive medications including high doses of Shankar-Synephrine, vasopressin and norepinephrine. Despite these interventions, as well as multiple liters of fluid and albumin, patient remained relatively hypotensive with worsening mental status. Patient's closest next of kin was his niece who he designated to be his point of contact during this hospital stay. She spoke to his surviving family today at length regarding his overall status. Patient's family, including his niece agreed that given his current circumstances, Mr. Lepe would not want to be kept alive in this state any longer. The decision was made to transition him to comfort care. Patient was made comfortable with fentanyl and his vasoactive medications were withdrawn. Due to his COVID-19 status and risk posed to mary de souza's family and staff, the family agreed to keep him on ventilatory support when removing his vasoactive medications. 12:05 AM, his respirations ceased as well as his heart rate. Patient had no heart sounds, no breath sounds, and no pupillary reaction to light on exam. He was pronounced at 12:05 AM with his niece at his side. Family was made aware of his .
== END 2020-07-27 00:05 | DRG 207 ==
LOC: ER 12:16 → EH 16:07 → 5 19:05 → ICU 07-03 13:55 → 3N 07-05 17:54 → ICU 07-08 11:05
PROVIDERS: ADMIT Internal Medicine Critical Care Medicine; ATTEND Internal Medicine Critical Care Medicine
PROC: 0W9930Z Drainage of Right Pleural Cavity with Drainage Device, Percutaneous Approach (ICD-10-PCS; principal; 2020-06-08)
PROC: 5A1D70Z Performance of Urinary Filtration, Intermittent, Less than 6 Hours Per Day (ICD-10-PCS; 2020-06-10)
PROC: 0BPQX0Z Removal of Drainage Device from Pleura, External Approach (ICD-10-PCS; 2020-06-13)
PROC: 0W9900Z Drainage of Right Pleural Cavity with Drainage Device, Open Approach (ICD-10-PCS; 2020-06-13)
PROC: 3E0L3GC Introduction of Other Therapeutic Substance into Pleural Cavity, Percutaneous Approach (ICD-10-PCS; 2020-06-13)
PROC: 0W9G3ZX Drainage of Peritoneal Cavity, Percutaneous Approach, Diagnostic (ICD-10-PCS; 2020-07-01)
PROC: XW043E5 Introduction of Remdesivir Anti-infective into Central Vein, Percutaneous Approach, New Technology Group 5 (ICD-10-PCS; 2020-07-03)
PROC: XW13325 Transfusion of Convalescent Plasma (Nonautologous) into Peripheral Vein, Percutaneous Approach, New Technology Group 5 (ICD-10-PCS; 2020-07-05)
PROC: 0HB5XZZ Excision of Chest Skin, External Approach (ICD-10-PCS; 2020-07-06)
PROC: 5A1955Z Respiratory Ventilation, Greater than 96 Consecutive Hours (ICD-10-PCS; 2020-07-08)
PROC: 5A12012 Performance of Cardiac Output, Single, Manual (ICD-10-PCS; 2020-07-08)
PROC: 0BH17EZ Insertion of Endotracheal Airway into Trachea, Via Natural or Artificial Opening (ICD-10-PCS; 2020-07-08)
PROC: 30233N1 Transfusion of Nonautologous Red Blood Cells into Peripheral Vein, Percutaneous Approach (ICD-10-PCS; 2020-07-20)
PROC: 02HV33Z Insertion of Infusion Device into Superior Vena Cava, Percutaneous Approach (ICD-10-PCS; 2020-07-23)
DX: J90 Pleural effusion, not elsewhere classified (principal); J95.811 Postprocedural pneumothorax; N18.6 End stage renal disease; E43 Unspecified severe protein-calorie malnutrition; U07.1 COVID-19; J96.01 Acute respiratory failure with hypoxia; I47.2 Ventricular tachycardia; I13.2 Hypertensive heart and chronic kidney disease with heart failure and with stage 5 chronic kidney disease, or end stage renal disease; I50.42 Chronic combined systolic (congestive) and diastolic (congestive) heart failure; E44.1 Mild protein-calorie malnutrition; N17.9 Acute kidney failure, unspecified; J94.8 Other specified pleural conditions; E87.1 Hypo-osmolality and hyponatremia; T85.628A Displacement of other specified internal prosthetic devices, implants and grafts, initial encounter; K56.600 Partial intestinal obstruction, unspecified as to cause; I96 Gangrene, not elsewhere classified; I42.0 Dilated cardiomyopathy; K92.2 Gastrointestinal hemorrhage, unspecified; I48.11 Longstanding persistent atrial fibrillation; R57.0 Cardiogenic shock; E87.70 Fluid overload, unspecified; B95.62 Methicillin resistant Staphylococcus aureus infection as the cause of diseases classified elsewhere; B96.89 Other specified bacterial agents as the cause of diseases classified elsewhere; S20.311A Abrasion of right front wall of thorax, initial encounter; L08.9 Local infection of the skin and subcutaneous tissue, unspecified; L76.82 Other postprocedural complications of skin and subcutaneous tissue; R07.9 Chest pain, unspecified; L89.151 Pressure ulcer of sacral region, stage 1; G93.89 Other specified disorders of brain; J44.9 Chronic obstructive pulmonary disease, unspecified; I95.0 Idiopathic hypotension; E16.2 Hypoglycemia, unspecified; N32.0 Bladder-neck obstruction; K70.31 Alcoholic cirrhosis of liver with ascites; D63.1 Anemia in chronic kidney disease; R06.00 Dyspnea, unspecified; F41.8 Other specified anxiety disorders; Y83.8 Other surgical procedures as the cause of abnormal reaction of the patient, or of later complication, without mention of misadventure at the time of the procedure; Y92.230 Patient room in hospital as the place of occurrence of the external cause; Z60.2 Problems related to living alone; Z87.891 Personal history of nicotine dependence; Z68.21 Body mass index [BMI] 21.0-21.9, adult; Z99.2 Dependence on renal dialysis; Z95.2 Presence of prosthetic heart valve; Z91.15 Patient's noncompliance with renal dialysis; Z95.0 Presence of cardiac pacemaker; Z79.01 Long term (current) use of anticoagulants; Z53.09 Procedure and treatment not carried out because of other contraindication
CPT/HCPCS: 31500; 32557; 36415; 36430; 49083; 70450; 71045; 71046; 71250; 71260; 74018; 74176; 74177; 80048; 80053; 80061; 80076; 80162; 81001; 82140; 82272; 82330; 82533; 82550; 82553; 82803; 82962; 83036; 83605; 83690; 83735; 83880; 83970; 84100; 84134; 84145; 84443; 84478; 84484; 85025; 85027; 85379; 85610; 85730; 86140; 86317; 86704; 86850; 86900; 86901; 86920; 87040; 87070; 87075; 87077; 87186; 87205; 87340; 87522; 87635; 89050; 93005; 93010; 93306; 94002; 94003; 94640; 94667; 94668; 94799; 99291; 99292; J0610; C1729; C1769; C1892; C9113; C9803; J0171; J0282; J0330; J0456; J0461; J0692; J0696; J1100; J1160; J1200; J1265; J1610; J1642; J1644; J1650; J1720; J1815; J1885; J1940; J1956; J2060; J2250; J2260; J2270; J2310; J2370; J2405; J3010; J3430; J3480; J3490; J7030; J7040; J7042; J7050; J7060; J7120; J7121; P9016; P9041; P9047; Q5105